=== PATIENT | female | born 1945 | race Caucasian/White ===

== ENCOUNTER → 2017-03-17 | Outpatient (CLI) | payer MEDICARE, OTHER ==
[2017-03-17 15:54] LABS: CH 31.9; CHCM 31.9; HCT 45.4 % (34.0-46.0); HDW 2.21; HGB 14.3 gm/dL (11.4-16.0); INR 2.6 (<1.2); MCH 31.7 pg (25.0-35.0); MCHC 31.5 g/dL (31.0-37.0); MCV 100.6 fL (80.0-100.0); Macrocytosis Slight; Mean Platelet Volume 7.5; Prothrombin Time 25.1 sec (9.0-12.0); RBC 4.51 m/uL (3.80-5.40); RDW 14.1 % (11.5-15.5); WBC 6.4 k/uL (3.8-10.6)
== END | disposition home or self-care (01) ==
LOC: LABWHC1 15:10
PROVIDERS: ATTEND Internal Medicine Cardiovascular Disease
DX: Z01.812 Encounter for preprocedural laboratory examination (principal); I48.2 Chronic atrial fibrillation; Z79.01 Long term (current) use of anticoagulants
CPT/HCPCS: 80051; 82565; 84520; 85027; 85610

== ENCOUNTER 2017-07-27 13:11 | Inpatient (IN) | payer MEDICARE, OTHER ==
[2017-07-27] MEDS ORDERED: ONDANSETRON 4 MG/2 ML VIAL IVP STA (13:22)
[2017-07-27] MEDS ORDERED: DILTIAZEM 5 MG/ML 5 ML VIAL IVP STA (13:22)
[2017-07-27] MEDS ORDERED: SODIUM CHLORIDE 0.9% 500 ML IV STA (13:22)
[2017-07-27] MEDS ORDERED: MORPHINE SULFATE 4 MG/ML SYRINGE IVP STA (13:22)
--- NOTE | 2017-07-27 13:32 | ED ---
General Adult HPI - General Chief complaint: Fall Stated complaint: Fall Time Seen by Provider: 07/27/17 13:12 Source: patient, EMS, RN notes reviewed, old records reviewed Mode of arrival: EMS - History of Present Illness Initial comments: This is a 72-year-old female ER for evaluation. Patient evaluation regards to fall. Patient was found down after fall. Complaining of severe left hip pain. Patient feels that her heart racing feels very weak complaining of severe pain in her left hip. Patient got up to do an activity in her house and fell. She was able to crawl to the phone. Unable to stand - Related Data Home Medications Medication Instructions Recorded Confirmed Warfarin [Coumadin] 5 mg PO DAILY 03/18/17 07/27/17 Simvastatin [Zocor] 20 mg PO DAILY 07/27/17 07/27/17 Allergies Allergy/AdvReac Type Severity Reaction Status Date / Time No Known Allergies Allergy Verified 07/27/17 13:33 Review of Systems ROS Statement: Those systems with pertinent positive or pertinent negative responses have been documented in the HPI. ROS Other: All systems not noted in ROS Statement are negative. Past Medical History Past Medical History: Hypertension Additional Past Medical History / Comment(s): irregular heart beat Last Myocardial Infarction Date:: 2009 History of Any Multi-Drug Resistant Organisms: None Reported Past Surgical History: Orthopedic Surgery Additional Past Surgical History / Comment(s): rt foot with plate Past Anesthesia/Blood Transfusion Reactions: No Reported Reaction Past Psychological History: No Psychological Hx Reported Smoking Status: Never smoker Past Alcohol Use History: None Reported Past Drug Use History: None Reported - Past Family History Mother Family Medical History: No Reported History General Exam General appearance: alert, in no apparent distress Head exam: Present: atraumatic, normocephalic, normal inspection Eye exam: Present: normal appearance, PERRL, EOMI. Absent: scleral icterus, conjunctival injection, periorbital swelling ENT exam: Present: normal exam, mucous membranes moist Neck exam: Present: normal inspection. Absent: tenderness, meningismus, lymphadenopathy Respiratory exam: Present: normal lung sounds bilaterally. Absent: respiratory distress, wheezes, rales, rhonchi, stridor Cardiovascular Exam: Present: tachycardia, irregular rhythm, normal heart sounds. Absent: systolic murmur, diastolic murmur, rubs, gallop, clicks GI/Abdominal exam: Present: soft, normal bowel sounds. Absent: distended, tenderness, guarding, rebound, rigid Extremities exam: Present: normal inspection, full ROM, normal capillary refill , other (Left flank tenderness). Absent: tenderness, pedal edema, joint swelling, calf tenderness Back exam: Present: normal inspection Neurological exam: Present: alert, oriented X3, CN II-XII intact Psychiatric exam: Present: normal affect, normal mood Skin exam: Present: warm, dry, intact, normal color. Absent: rash Course Vital Signs 07/27/17 07/27/17 07/27/17 13:13 13:47 14:36 Temperature 97.7 F Pulse Rate 120 H 117 H 103 H Respiratory 20 18 20 Rate Blood Pressure 166/116 149/94 143/103 O2 Sat by Pulse 92 L 98 96 Oximetry - Reevaluation(s) Reevaluation #1: 07/27/17 13:41 Patient does have adequate pain control, patient given rate control for A. fib with RVR Reevaluation #2: 07/27/17 15:03 Patient is having adequate pain control at this time EKG Findings - EKG Comments: EKG Findings:: 89 years old EKG shows A. fib with RVR rate of 170, QRS 82, QTc 524 Medical Decision Making - Medical Decision Making 72 female the ER status post fall, mechanical trip and fall. Positive left hip fracture. Patient be admitted for surgical treatment - Lab Data Result diagrams: 07/27/17 13:20 07/27/17 13:20 Lab Results 07/27/17 07/27/17 07/27/17 Range/Units 13:20 13:20 13:20 WBC 12.7 H (3.8-10.6) k/uL RBC 4.16 (3.80-5.40) m/uL Hgb 12.6 (11.4-16.0) gm/dL Hct 41.0 (34.0-46.0) % MCV 98.5 (80.0-100.0) fL MCH 30.4 (25.0-35.0) pg MCHC 30.8 L (31.0-37.0) g/dL RDW 13.4 (11.5-15.5) % Plt Count 228 (150-450) k/uL Neutrophils % 83 % Lymphocytes % 9 % Monocytes % 5 % Eosinophils % 2 % Basophils % 0 % Neutrophils # 10.5 H (1.3-7.7) k/uL Lymphocytes # 1.2 (1.0-4.8) k/uL Monocytes # 0.6 (0-1.0) k/uL Eosinophils # 0.3 (0-0.7) k/uL Basophils # 0.0 (0-0.2) k/uL Hypochromasia Slight PT (9.0-12.0) sec INR (<1.2) APTT (22.0-30.0) sec Sodium 141 (137-145) mmol/L Potassium 4.0 (3.5-5.1) mmol/L Chloride 106 (98-107) mmol/L Carbon Dioxide 24 (22-30) mmol/L Anion Gap 11 mmol/L BUN 17 (7-17) mg/dL Creatinine 1.03 (0.52-1.04) mg/dL Est GFR (MDRD) Af Amer >60 (>60 ml/min/1.73 sqM) Est GFR (MDRD) Non-Af 53 (>60 ml/min/1.73 sqM) Glucose 178 H (74-99) mg/dL Calcium 9.0 (8.4-10.2) mg/dL Phosphorus 2.8 (2.5-4.5) mg/dL Magnesium 1.8 (1.6-2.3) mg/dL Total Bilirubin 0.6 (0.2-1.3) mg/dL AST 23 (14-36) U/L ALT 25 (9-52) U/L Alkaline Phosphatase 96 (38-126) U/L Total Creatine Kinase 125 (30-135) U/L CK-MB (CK-2) 1.2 (0.0-2.4) ng/mL CK-MB (CK-2) Rel Index 1.0 Troponin I 0.017 (0.000-0.034) ng/mL Total Protein 6.3 (6.3-8.2) g/dL Albumin 3.3 L (3.5-5.0) g/dL 07/27/17 Range/Units 13:20 WBC (3.8-10.6) k/uL RBC (3.80-5.40) m/uL Hgb (11.4-16.0) gm/dL Hct (34.0-46.0) % MCV (80.0-100.0) fL MCH (25.0-35.0) pg MCHC (31.0-37.0) g/dL RDW (11.5-15.5) % Plt Count (150-450) k/uL Neutrophils % % Lymphocytes % % Monocytes % % Eosinophils % % Basophils % % Neutrophils # (1.3-7.7) k/uL Lymphocytes # (1.0-4.8) k/uL Monocytes # (0-1.0) k/uL Eosinophils # (0-0.7) k/uL Basophils # (0-0.2) k/uL Hypochromasia PT 35.1 H (9.0-12.0) sec INR 3.9 H (<1.2) APTT 35.9 H (22.0-30.0) sec Sodium (137-145) mmol/L Potassium (3.5-5.1) mmol/L Chloride (98-107) mmol/L Carbon Dioxide (22-30) mmol/L Anion Gap mmol/L BUN (7-17) mg/dL Creatinine (0.52-1.04) mg/dL Est GFR (MDRD) Af Amer (>60 ml/min/1.73 sqM) Est GFR (MDRD) Non-Af (>60 ml/min/1.73 sqM) Glucose (74-99) mg/dL Calcium (8.4-10.2) mg/dL Phosphorus (2.5-4.5) mg/dL Magnesium (1.6-2.3) mg/dL Total Bilirubin (0.2-1.3) mg/dL AST (14-36) U/L ALT (9-52) U/L Alkaline Phosphatase (38-126) U/L Total Creatine Kinase (30-135) U/L CK-MB (CK-2) (0.0-2.4) ng/mL CK-MB (CK-2) Rel Index Troponin I (0.000-0.034) ng/mL Total Protein (6.3-8.2) g/dL Albumin (3.5-5.0) g/dL - Radiology Data Radiology results: report reviewed (X-ray left hip is positive for fracture), image reviewed Disposition Clinical Impression: Fall, Hip fracture, left Disposition: ADMITTED IP TO THIS HOSP Condition: Fair Referrals: Dada Maddox DO [Primary Care Provider] - 1-2 days
[2017-07-27] MEDS: DILTIAZEM 125 MG in SODIUM CHLORIDE 0.9% 100 ML IV ONE (13:43)
[2017-07-27 13:50] LABS: INR 3.9 (<1.2)
[2017-07-27 13:51] LABS: Partial Thromboplastin Time 35.9 sec (22.0-30.0); Prothrombin Time 35.1 sec (9.0-12.0)
[2017-07-27 13:57] LABS: Basophils % (A) 0 %; Eosinophils # (A) 0.3 k/uL (0-0.7); Eosinophils % (A) 2 %; HGB 12.6 gm/dL (11.4-16.0); Hypochromasia Slight; Lymphocytes # (A) 1.2 k/uL (1.0-4.8); Lymphocytes % (A) 9 %; MCH 30.4 pg (25.0-35.0); MCHC 30.8 g/dL (31.0-37.0); MCV 98.5 fL (80.0-100.0); Mean Platelet Volume 7.4; Monocytes # (A) 0.6 k/uL (0-1.0); Monocytes % (A) 5 %; Neutrophils # (A) 10.5 k/uL (1.3-7.7); Neutrophils % (A) 83 %; Platelet Count 228 k/uL (150-450); RBC 4.16 m/uL (3.80-5.40); RDW 13.4 % (11.5-15.5); WBC 12.7 k/uL (3.8-10.6)
[2017-07-27 14:00] LABS: ALT 25 U/L (9-52); AST 23 U/L (14-36); Albumin 3.3 g/dL (3.5-5.0); Alkaline Phosphatase 96 U/L (38-126); Anion Gap 11 mmol/L; Blood Urea Nitrogen 17 mg/dL (7-17); Carbon Dioxide 24 mmol/L (22-30); Chloride 106 mmol/L (98-107); Glucose 178 mg/dL (74-99); Magnesium 1.8 mg/dL (1.6-2.3); Phosphorus 2.8 mg/dL (2.5-4.5); Sodium 141 mmol/L (137-145); Total Bilirubin 0.6 mg/dL (0.2-1.3); Total Protein 6.3 g/dL (6.3-8.2)
[2017-07-27 14:30] LABS: Creatine Kinase MB 1.2 ng/mL (0.0-2.4); Troponin I 0.017 ng/mL (0.000-0.034)
--- NOTE | 2017-07-27 14:41 | XR ---
EXAMINATION TYPE: XR Hip Complete LT DATE OF EXAM: 07/27/2017 CLINICAL HISTORY: pain TECHNIQUE: AP and frogleg views of the left hip are obtained. COMPARISON: None. FINDINGS: There is impacted left femoral neck fracture at the base of the femoral head with mild disp lacement. No additional fracture seen within the [id number]. IMPRESSION: 1. Impacted left femoral neck fracture is noted. ICD 10 closed FRACTURE, INITIAL EVALUATION
[2017-07-27] MEDS ORDERED: HYDROmorphone 2 MG/ML 1 ML SYRINGE IVP STA (14:52)
[2017-07-27 15:35] LABS: Appearance,Urine Clear (Clear); Bilirubin,Urine Negative (Negative); Blood,Urine Negative (Negative); Color,Urine Light Yellow; Glucose,Urine (UA) Negative (Negative); Ketones,Urine Negative (Negative); Leukocyte Esterase,Urine Negative (Negative); Nitrite,Urine Negative (Negative); Protein,Urine Negative (Negative); Specific Gravity,Urine 1.006 (1.001-1.035); Urobilinogen,Urine <2.0 mg/dL (<2.0)
[2017-07-27] MEDS ORDERED: METOCLOPRAMIDE 5 MG/ML 2 ML VIAL IVP STA (15:40)
[2017-07-27] MEDS ORDERED: diphenhydrAMINE 50 MG/ML 1 ML VIAL IVP STA (15:41)
[2017-07-27] MEDS: HYDROmorphone 0.5 MG/0.5 ML SYRINGE IVP PRN ×2 (18:50→23:04)
[2017-07-27] MEDS ORDERED: PHYTONADIONE ORAL 5 MG/5 ML ORAL.SYRG PO STA (23:21)
[2017-07-28] MEDS: METOPROLOL TARTRATE 25 MG TAB PO SCH ×2 (00:23→08:00)
--- NOTE | 2017-07-28 01:37 | CONS ---
CONSULTATION DATE OF SERVICE: July 27, 2017. REASON FOR CONSULTATION: Medical management requested by Dr. Lomas. CONSULTATION: This is a very pleasant, 72 -year-old patient of Dr. Maddox, who tripped and fell, now has impacted left femoral neck fracture with pain at the site. The fall was simply from missing a step. No precipitated cause otherwise. The patient has chronically got atrial fibrillation on Coumadin, which was uncontrolled in the ER from 120s. The patient put on a Cardizem drip. The patient also had 2 MIs in 2009. The patient had a cardiac catheterization, in fact had 1 recent cardiac catheterization in March of 2017, and had normal coronary arteries. This was done by Dr. Falcon. The patient normally is able to get around a place with fair exercise tolerance. No chest pain or shortness of breath. REVIEW OF SYSTEMS: CONSTITUTIONAL: None. HEENT none. Respiratory none. Cardiovascular none. Gastrointestinal none. Genitourinary none. Musculoskeletal: Pain in the left hip. Dermatological, hematologic, lymphatic none. Psychiatry none. Neurological none. PAST MEDICAL HISTORY: Atrial fibrillation, stroke with no residual, hyperlipidemia, questionable 2 MIs with normal cardiac catheterization 2016. PAST SURGICAL HISTORY: Cardiac catheterization, tonsillectomy, ORIF of the right ankle. SOCIAL HISTORY: The patient smoked a pack a day for 54 years. Stopped in 2011. Lives by herself. No alcohol. FAMILY HISTORY: Of aneurysm type unknown. HOME MEDICATIONS: Coumadin 5 mg a day and Zocor 20 mg a day. ALLERGIES: None. PHYSICAL EXAMINATION: Temperature 97.7, pulse 110, respiration 16, blood pressure 130/97, pulse ox 94% on 3 L. GENERAL APPEARANCE: Well built, BMI 30, lying in bed somewhat uncomfortable. Eyes pupils equal. Conjunctivae normal. HEENT: Oral cavity normal. Neck JVD not raised. Mass not palpable. Respiratory effort normal. Lungs slightly decreased breath sounds. Cardiovascular: HEART: Sounds irregular. No edema. ABDOMEN: Soft, nontender. Liver and spleen not palpable. Lymphatics: No lymph nodes palpable in neck or axillae. Psychiatry alert x3. Mood and affect normal. Neurological: Pupils equal. Cranial nerves grossly intact. Power and sensation grossly intact. INVESTIGATIONS: EKG/telemetry atrial fibrillation rate around one teens. ASSESSMENT: 1. Atrial flutter. 2. Hyperlipidemia. 3. Obesity BMI of 38. 4. IV Lisbeth wootenip monitoring. 5. Coumadin monitoring. PLAN: INR 3.9. We will give the patient a very small dose of vitamin K 2.5 just to bring down enough so that she can respond to Coumadin when it is resumed. The patient is on Cardizem drip. Cardiology has been consulted for the same. The patient had a normal cardiac catheterization 4 months ago. Medically, patient should be able to proceed with surgery with the heart rate is controlled. I will start the patient on Lopressor 25 mg 3 times a day in the meantime. Care was discussed with the patient. Thank you Dr. Lomas. Copy to Dr. Maddox. MMSIMONEL / LEEANNN: [id number] /
[2017-07-28] MEDS: HYDROmorphone 0.5 MG/0.5 ML SYRINGE IVP PRN ×3 (03:47→18:29)
[2017-07-28] MEDS: DILTIAZEM 125 MG in SODIUM CHLORIDE 0.9% 100 ML IV ONE ×2 (03:48→20:31)
[2017-07-28 06:14] LABS: Prothrombin Time 44.8 sec (9.0-12.0)
[2017-07-28] MEDS: ATORVASTATIN 10 MG TAB PO SCH (08:00)
[2017-07-28] MEDS ORDERED: ENOXAPARIN 40 MG/0.4 ML SYRINGE SQ SCH (09:00)
--- NOTE | 2017-07-28 10:25 | P.CRDCN ---
History of Present Illness Consult date: 07/28/17 Requesting physician: Eddie Lomas Consult reason: atrial fibrillation Chief complaint: Fall History of present illness: This is a 72-year-old female who follows regularly with Dr. Montana in the office. She has known history of chronic persistent atrial fibrillation , on Coumadin for anticoagulation, history of prior myocardial infarction, hyperlipidemia, history of CVA, prior history of smoking, hypertension, patient most recently underwent a cardiac catheterization in March 2017 because of a positive stress test, she was found to have normal coronary arteries with normal left ventricular systolic function. Patient presents to the hospital after experiencing a fall. She did not pass out, she just became unsteady and fell to the ground. EKG on presentation here showed atrial fibrillation with a rapid ventricular response and the patient was initiated on IV Cardizem in the emergency room. X-ray of the hip revealed impacted left femoral neck fracture. Laboratory data was reviewed, white blood cell count 12.7, hemoglobin 12.6, platelet count 228. INR on admission 3.9, 5.0 this morning. Potassium 4.0, BUN 17, creatinine 1.0. Troponin 0.017. Patient denies having any chest discomfort, no difficulty in breathing. She is complaining of significant pain in her left hip. This morning as well as lower back discomfort. According to the office note, patient should be on metoprolol 150 mg twice a day we will discontinue the IV Cardizem and initiate metoprolol 150 twice a day. Past Medical History Past Medical History: Atrial Fibrillation, CVA/TIA, Hyperlipidemia, Myocardial Infarction ([place]) Additional Past Medical History / Comment(s): 07/27/17 FALL'LT HIP FX. 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 Last Myocardial Infarction Date:: 2009 History of Any Multi-Drug Resistant Organisms: None Reported Past Surgical History: Heart Catheterization, Orthopedic Surgery, Tonsillectomy Additional Past Surgical History / Comment(s): ORIF RT ANKLE HAS PLATE. Past Anesthesia/Blood Transfusion Reactions: No Reported Reaction Smoking Status: Former smoker - Past Family History Mother Family Medical History: No Reported History Additional Family Medical History / Comment(s): FROM ANUERYSM Father Family Medical History: No Reported History Medications and Allergies Home Medications Medication Instructions Recorded Confirmed Type Warfarin [Coumadin] 5 mg PO DAILY 03/18/17 07/27/17 History Simvastatin [Zocor] 20 mg PO DAILY 07/27/17 07/27/17 History Allergies Allergy/AdvReac Type Severity Reaction Status Date / Time No Known Allergies Allergy Verified 07/27/17 13:33 Physical Exam Vitals: Vital Signs Temp Pulse Pulse Resp BP BP Pulse Ox 07/28/17 07:48 97.0 F L 85 20 116/58 92 L 07/28/17 04:00 97.9 F 83 16 119/71 93 L 07/27/17 23:16 102 H 16 07/27/17 23:15 97.7 F 102 H 16 130/97 94 L 07/27/17 21:11 92 L 07/27/17 20:00 97.7 F 90 18 135/90 92 L 07/27/17 17:55 20 07/27/17 17:53 98.2 F 103 H 20 130/91 97 07/27/17 17:25 97.2 F L 07/27/17 17:04 100 18 115/72 95 07/27/17 16:04 129 H 20 146/88 98 07/27/17 14:36 103 H 20 143/103 96 07/27/17 13:47 117 H 18 149/94 98 07/27/17 13:30 150 H 07/27/17 13:13 97.7 F 120 H 20 166/116 92 L Intake and Output 07/27/17 07/28/17 07/28/17 22:59 06:59 14:59 Intake Total 11.583 153.417 Output Total 550 Balance 11.583 -396.583 Intake: IV 40 Diltiazem 125 mg In 40 Sodium Chloride 0.9% 100 ml @ 5 MG/HR 5 mls/hr IV .Q24H ONE Rx#:[id number] Intake, IV Titration 11.583 113.417 Amount Diltiazem 125 mg In 11.583 113.417 Sodium Chloride 0.9% 100 ml @ 5 MG/HR 5 mls/hr IV .Q24H ONE Rx#:[id number] Output: Urine 550 Other: Voiding Method Indwelling Catheter Indwelling Catheter Weight 120 kg PHYSICAL EXAMINATION: HEENT: Head is atraumatic, normocephalic. Pupils equal, round. Neck is supple. There is no elevated jugular venous pressure. HEART EXAMINATION: Heart S1 and S2 irregularly irregular CHEST EXAMINATION: Lungs are clear to auscultation and precussion. No chest wall tenderness is noted on palpation or with deep breathing. ABDOMEN: Soft, nontender. Bowel sounds are heard. No organomegaly noted. EXTREMITIES:[ 2+ peripheral pulses with no evidence of peripheral edema significant pain noted at the left hip area NEUROLOGIC patient is awake, alert and oriented -3. . Results 07/27/17 13:20 07/27/17 13:20 Cardiac Enzymes 07/27/17 07/27/17 Range/Units 13:20 13:20 AST 23 (14-36) U/L CK-MB (CK-2) 1.2 (0.0-2.4) ng/mL Troponin I 0.017 (0.000-0.034) ng/mL Coagulation 07/27/17 07/28/17 Range/Units 13:20 05:24 PT 35.1 H 44.8 H (9.0-12.0) sec APTT 35.9 H (22.0-30.0) sec CBC 07/27/17 Range/Units 13:20 WBC 12.7 H (3.8-10.6) k/uL RBC 4.16 (3.80-5.40) m/uL Hgb 12.6 (11.4-16.0) gm/dL Hct 41.0 (34.0-46.0) % Plt Count 228 (150-450) k/uL Comprehensive Metabolic Panel 07/27/17 Range/Units 13:20 Sodium 141 (137-145) mmol/L Potassium 4.0 (3.5-5.1) mmol/L Chloride 106 (98-107) mmol/L Carbon Dioxide 24 (22-30) mmol/L BUN 17 (7-17) mg/dL Creatinine 1.03 (0.52-1.04) mg/dL Glucose 178 H (74-99) mg/dL Calcium 9.0 (8.4-10.2) mg/dL AST 23 (14-36) U/L ALT 25 (9-52) U/L Alkaline Phosphatase 96 (38-126) U/L Total Protein 6.3 (6.3-8.2) g/dL Albumin 3.3 L (3.5-5.0) g/dL Current Medications Generic Name Dose Route Start Last Admin Trade Name Ranjan PRN Reason Stop Dose Admin Atorvastatin Calcium 10 mg 07/28/17 09:00 07/28/17 08:00 Lipitor PO 10 mg DAILY KALPESH Administration Hydromorphone HCl 1 mg 07/27/17 15:02 07/28/17 03:47 Dilaudid IVP 1 mg Q4HR PRN Administration Pain Diltiazem HCl 125 mg/ Sodium 125 mls @ 5 mls/hr 07/27/17 13:22 07/28/17 03:48 Chloride IV 07/28/17 13:21 10 mg/hr .Q24H ONE 10 mls/hr 5 MG/HR Administration Metoprolol Tartrate 25 mg 07/27/17 23:30 07/28/17 08:00 Lopressor PO 25 mg TID KALPESH Administration Intake and Output 07/27/17 07/28/17 07/28/17 22:59 06:59 14:59 Intake Total 11.583 153.417 Output Total 550 Balance 11.583 -396.583 Intake: IV 40 Diltiazem 125 mg In 40 Sodium Chloride 0.9% 100 ml @ 5 MG/HR 5 mls/hr IV .Q24H ONE Rx#:[id number] Intake, IV Titration 11.583 113.417 Amount Diltiazem 125 mg In 11.583 113.417 Sodium Chloride 0.9% 100 ml @ 5 MG/HR 5 mls/hr IV .Q24H ONE Rx#:[id number] Output: Urine 550 Other: Voiding Method Indwelling Catheter Indwelling Catheter Weight 120 kg 07/27/17 13:20 07/27/17 13:20 EKG Interpretations (text) EKG shows atrial fibrillation with a rapid ventricular response Assessment and Plan Plan: Assessment and plan #1 fall with evidence of impacted left femoral neck fracture #2 chronic persistent atrial fibrillation, on Coumadin for anticoagulation, INR 5.0 this morning. #3 hypertension #4 diabetes #5 hyperlipidemia #6 prior CVA #7 Prior myocardial infarction, most recent cardiac catheterization was performed in March 2017 which revealed normal coronary arteries Plan We will discontinue the IV Cardizem and reinitiate beta roshni dose which the patient takes at home. Obtain echocardiogram with Doppler study. Continue to hold Coumadin. Check daily PT/INRs Patient will be scheduled to undergo hip surgery potentially on Wednesday. We will need to reinitiate anticoagulation as possible post surgery, for stroke prevention. DNP note has been reviewed, I agree with a documented findings and plan of care. Patient was seen and examined.
--- NOTE | 2017-07-28 11:47 | P.HPOR ---
History of Present Illness H&P Date: 07/28/17 Chief Complaint: Left hip fracture Patient is a 72-year-old female who presented to [facility] emergency room yesterday after sustaining a fall at home. Patient states that she tripped and fell in her own home, resulting in a fall on the left side. She was unable to weight-bear after the fall, she was near her phone was able to contact emergency services. Upon arrival to the hospital, imaging and lab tests were done. Images demonstrated a left femoral neck fracture. I was contacted by the emergency room staff regarding the patient, I was able to review the images. I was able to discuss this my attending Dr. Lomas, and we did end up admitting the patient under our care for planned surgery. Proper consultations were placed for clearances by both internal medicine and cardiology. Patient is examined today on the selective care unit, she is resting in bed. She appears to be in no acute distress. She notes pain in the left hip with motion. She denies any new onset pain involving the right lower extremity, bilateral upper extremities, cervical, thoracic or lumbar. She's had previous orthopedic surgery on the right ankle, this was done by Dr. Lomas back in 2007. She currently denies any headaches, lightheadedness, chest pain or shortness of breath. Review of Systems Constitutional: Reports as per HPI Past Medical History Past Medical History: Atrial Fibrillation, CVA/TIA, Hyperlipidemia, Myocardial Infarction ([place]) Additional Past Medical History / Comment(s): 07/27/17 FALL'LT HIP FX. 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 Last Myocardial Infarction Date:: 2009 History of Any Multi-Drug Resistant Organisms: None Reported Past Surgical History: Heart Catheterization, Orthopedic Surgery, Tonsillectomy Additional Past Surgical History / Comment(s): ORIF RT ANKLE HAS PLATE. Past Anesthesia/Blood Transfusion Reactions: No Reported Reaction Smoking Status: Former smoker - Past Family History Mother Family Medical History: No Reported History Additional Family Medical History / Comment(s): FROM ANUERYSM Father Family Medical History: No Reported History Medications and Allergies Home Medications Medication Instructions Recorded Confirmed Type Warfarin [Coumadin] 5 mg PO DAILY 03/18/17 07/27/17 History Simvastatin [Zocor] 20 mg PO DAILY 07/27/17 07/27/17 History Allergies Allergy/AdvReac Type Severity Reaction Status Date / Time No Known Allergies Allergy Verified 07/27/17 13:33 Physical Examination Left lower extremity: No obvious open lesions or sores present throughout the extremity Shortening and external rotation of the leg is noted when compared to contralateral side No effusion present over the knee, there is no tenderness with palpation. No significant tenderness with palpation appreciated around the foot or ankle. Plantar flexion, dorsiflexion, EHL, FHL are intact. Sensory exam to light touch started extremities intact, dorsal pedis pulses 2+ The left hip reproduces pain, she is unable to straight leg raise Calf is soft, no tenderness with palpation Results - Labs Labs: Abnormal Lab Results - Last 24 Hours (Table) 07/27/17 07/27/17 07/27/17 Range/Units 13:20 13:20 13:20 WBC 12.7 H (3.8-10.6) k/uL MCHC 30.8 L (31.0-37.0) g/dL Neutrophils # 10.5 H (1.3-7.7) k/uL PT 35.1 H (9.0-12.0) sec INR 3.9 H (<1.2) APTT 35.9 H (22.0-30.0) sec Glucose 178 H (74-99) mg/dL Albumin 3.3 L (3.5-5.0) g/dL 07/28/17 Range/Units 05:24 WBC (3.8-10.6) k/uL MCHC (31.0-37.0) g/dL Neutrophils # (1.3-7.7) k/uL PT 44.8 H (9.0-12.0) sec INR 5.0 H* (<1.2) APTT (22.0-30.0) sec Glucose (74-99) mg/dL Albumin (3.5-5.0) g/dL Microbiology - Last 24 Hours (Table) 07/27/17 15:20 Urine Culture - Preliminary Urine,Catheterized H & H 07/27/17 Range/Units 13:20 Hgb 12.6 (11.4-16.0) gm/dL Hct 41.0 (34.0-46.0) % Coagulation 07/27/17 07/28/17 Range/Units 13:20 05:24 INR 3.9 H 5.0 H* (<1.2) Result Diagrams: 07/27/17 13:20 07/27/17 13:20 - Diagnostic results Hip x-ray: report reviewed, image reviewed Assessment and Plan Plan: Imaging: Multiple views of the left hip and pelvis were obtained, images do demonstrate a displaced left femoral neck fracture. No other acute osseous abnormalities appreciated Assessment: 1. Left femoral neck fracture 2. Status post fall from standing 3. Other medical comorbidities Plan: I was able to discuss the case, including both physical exam findings and imaging studies of my attending Dr. Lomas. We will like to proceed with surgical intervention, more specifically a left hip hemiarthroplasty on 2017 Patient's INR is very high at this time, this is being held. She scheduled to receive oral vitamin K, with daily INR checks. Obtain consent Pain control, oral and IV medication as needed Nonweightbearing left lower extremity Medical and cardiac clearance and recommendations Further recommendations to follow Time with Patient: Less than 30
--- NOTE | 2017-07-28 12:50 | ECHOF ---
Referral Reason:afib MEASUREMENTS -------- HEIGHT: 172.7 cm WEIGHT: 119.7 kg BP: 116/58 RVIDd: 3.0 cm (< 3.3) IVSd: 1.3 cm (0.6 - 1.1) LVIDd: 4.3 cm (3.9 - 5.3) LVPWd: 1.3 cm (0.6 - 1.1) IVSs: 1.5 cm LVIDs: 3.4 cm LVPWs: 1.7 cm LAESV Index (A-L): 26.92 ml/m Ao Diam: 3.8 cm (2.0 - 3.7) AV Cusp: 1.5 cm (1.5 - 2.6) LA Diam: 2.6 cm (2.7 - 3.8) EPSS: 0.8 cm MV E Filippo: 1.50 m/s MV DecT: 193 ms MV A Filippo: 0.01 m/s MV E/A Ratio: 243.01 AV maxP.10 mmHg AV meanP.69 mmHg RAP: 15.00 mmHg RVSP: 54.60 mmHg MV EF SLOPE: 105.59 mm/s (70 - 150) MV EXCURSION: 1.93 cm (> 18.000) FINDINGS -------- Atrial fibrillation. This was a technically adequate study. The left ventricular size is normal. There is mild concentric left ventricular hypertrophy. Overa ll left ventricular systolic function is low-normal with, an EF between 50 - 55 %. The right ventricle is normal in size. Normal LA size by volume 22+/-6 ml/m2. The right atrium is normal in size. Aortic valve is trileaflet and is mildly thickened. There is mild aortic regurgitation. There is mild aortic stenosis present. Peak/mean gradient across the Aortic Valve is 15.10mmHg / 8.69mmHg. The mitral valve leaflets are mildly thickened. Coox-ud-yxnfppsl mitral regurgitation is present. Mild tricuspid regurgitation present. There is moderate pulmonary hypertension. The right ventric ular systolic pressure, as measured by Doppler, is 54.60mmHg. Trace/mild (physiologic) pulmonic regurgitation. The aortic root is dilated, limited to the sinuses of valsalva measuring up to 3.8 cm. The inferior vena cava is dilated with poor inspiratory collapse which is consistent with estimated r ight atrial pressure of 20 mmHg. There is a small, generalized pericardial effusion present. CONCLUSIONS -------- 1. Atrial fibrillation. 2. This was a technically adequate study. 3. The left ventricular size is normal. 4. There is mild concentric left ventricular hypertrophy. 5. Overall left ventricular systolic function is low-normal with, an EF between 50 - 55 %. 6. The right ventricle is normal in size. 7. Normal LA size by volume 22+/-6 ml/m2. 8. Aortic valve is trileaflet and is mildly thickened. 9. There is mild aortic regurgitation. 10. There is mild aortic stenosis present. 11. Peak/mean gradient across the Aortic Valve is 15.10mmHg / 8.69mmHg. 12. The mitral valve leaflets are mildly thickened. 13. Uwnj-xn-rbibdbhg mitral regurgitation is present. 14. Mild tricuspid regurgitation present. 15. There is moderate pulmonary hypertension. 16. Trace/mild (physiologic) pulmonic regurgitation. 17. The aortic root is dilated, limited to the sinuses of valsalva measuring up to 3.8 cm. 18. The inferior vena cava is dilated with poor inspiratory collapse which is consistent with estimat ed right atrial pressure of 20 mmHg. 19. There is a small, generalized pericardial effusion present. COSMETIC SALES ASSISTANT: Joe Álvarez RDCS
--- NOTE | 2017-07-28 16:16 | P.PN ---
Progress Note - Text Progress Note Date: 07/28/17 DATE OF SERVICE: 07/28/2017 REASON FOR CONSULTATION: Medical management requested by Dr. Lomas. HISTORY OF PRESENT ILLNESS: 82-year-old female who tripped and fell now has an impacted left femoral neck fracture. Follow occurred simply by missing a step. No other precipitating cause. Has a history of chronic atrial fibrillation and is on Coumadin for the same., Uncontrolled on arrival into the emergency department in the 120s. Placed on a Cardizem drip. History of cardiac catheterization in 2009 and 2016. Under normal circumstances patient is able to get around with fair exercise tolerance no chest pain or shortness of breath. INTERVAL HISTORY: 07/28/2017: Lying in bed appears anxious and uncomfortable. States that her left hip hurts quite a bit as does the leg. No complaints or numbness or tingling and has good sensation leg just hurts her. Pain medication does a fair job of controlling pain. INR was supratherapeutic yesterday received 2.5 mg of vitamin K and this morning's value was 5.0. No overt signs or symptoms of bleeding. No dark stools. Atrial fibrillation remains somewhat uncontrolled in the low 100s. Has a poor appetite eating less than 50% of her meals. Requires assistance to get about the bed. Last BM prior to admission. REVIEW OF SYSTEMS: Done for constitutional ,cardiovascular, GI, pulmonary with relevant findings as above. CURRENT MEDICATIONS Lipitor, heparin subcutaneous. Dilaudid 1 mg IV push every 4 hours , Lopressor 150 mg by mouth twice a day. PHYSICAL EXAM VITAL SIGNS: Temperature 97.6, pulse 99, respiratory rate 18, blood pressure 115/76, oxygen saturation 98% on 3 L. GENERAL APPEARANCE: Lying in bed, somewhat anxious appearing not in distress. HENT: Normocephalic, JVD not raised. Mass not palpable. Oral cavity dry mucous membranes, external appearance of ears and nose normal. EYES:Pupils equal. Conjunctiva normal. RESPIRATORY: Respiratory effort normal. Lungs diminished bilaterally to auscultation. CARDIOVASCULAR: First and second sounds normal. No edema. ABDOMEN: Soft. Liver and spleen not palpable. No tenderness. No mass palpable. PSYCHIATRY: Alert and oriented x3. Mood and affect a bit low. MUSCULOSKELETAL: Left lower extremity shortening and external rotation noted, unable to straight leg raise, left hip tender to palpation. INVESTIGATIONS: LABS: INR 5.0 ECHOCARDIOGRAM: Atrial fibrillation, EF between 50-55%. Mild aortic regurgitation, mild aortic stenosis, mild to moderate mitral regurgitation, mild tricuspid regurgitation, moderate pulmonary hypertension. ASSESSMENT: -Left femoral neck fracture in a patient who missed a step tripped and fell no other precipitating factors. -Chronic persistent atrial fibrillation flutter, chronically on Coumadin -Obesity body mass index of 38. -Hyperlipidemia. -Diabetes mellitus type 2 diet controlled blood glucose checks daily. -IV Cardizem drip monitoring. -Coumadin monitoring. PLAN: Continue to monitor INR daily. Tentative plan for left hip surgery on Wednesday with orthopedics. IV Cardizem drip discontinued and beta roshni reinitiated. Coumadin on hold per cardiology. Once surgery is complete reinitiate anticoagulation as soon as possible for stroke prevention. Plan of care discussed with the patient at bedside she is agreeable. We will follow closely. CUSTOMER STRATEGY MANAGER statement: Patient was seen and examined by nurse practitioner Hayde Solomon and all elements of the case discussed with attending Dr. Sanabria
[2017-07-28] MEDS: METOPROLOL TARTRATE 50 MG TAB PO SCH ×2 (17:56→23:39)
[2017-07-28 18:52] LABS: HCT 37.1 % (34.0-46.0); HGB 11.3 gm/dL (11.4-16.0); Hypochromasia Slight; MCH 30.2 pg (25.0-35.0); MCHC 30.6 g/dL (31.0-37.0); MCV 98.7 fL (80.0-100.0); Mean Platelet Volume 7.2; Platelet Count 212 k/uL (150-450); RBC 3.76 m/uL (3.80-5.40); RDW 13.5 % (11.5-15.5); WBC 12.5 k/uL (3.8-10.6)
--- NOTE | 2017-07-28 19:05 | PN ---
PROGRESS NOTE DATE OF SERVICE: 07/28/2017. ATTENDING NOTE: This patient was seen and examined by me. I discussed the case with the nurse practitioner Ms. Solomon. The patient presented with left femoral neck fracture. Remains in atrial fibrillation, uncontrolled; has been on a Cardizem drip. Pain is present. Lying in bed. On examination, temperature 100.8, pulse 104, respiration 18, blood pressure 90/59, pulse ox 93% on 3 L. Heart sounds are irregular. Lungs are clear. PSYCH: Alert and oriented x3. TSH noted. ASSESSMENT: 1. Left femoral neck fracture secondary to fall. 2. Persistent atrial fibrillation/flutter, uncontrolled. 3. Coumadin monitoring. INR 5. PLAN: Patient is on Lopressor 150 twice a day. He was given 2.5 vitamin K last night. Expect the INR to be down by tomorrow. Cardizem drip was taken off. MMODL / IJN: [id number] /
[2017-07-28 19:08] LABS: Calcium 8.7 mg/dL (8.4-10.2); Potassium 4.8 mmol/L (3.5-5.1)
[2017-07-28] MEDS ORDERED: HEPARIN SODIUM,PORCINE 5,000 UNIT/ML 1 ML VIAL SQ SCH (21:00)
[2017-07-28 23:51] LABS: Basophils % (A) 0 %; Eosinophils # (A) 0.1 k/uL (0-0.7); Eosinophils % (A) 1 %; HCT 37.4 % (34.0-46.0); HGB 11.6 gm/dL (11.4-16.0); Lymphocytes # (A) 0.9 k/uL (1.0-4.8); Lymphocytes % (A) 9 %; MCH 30.4 pg (25.0-35.0); MCHC 30.9 g/dL (31.0-37.0); MCV 98.3 fL (80.0-100.0); Mean Platelet Volume 7.1; Monocytes # (A) 0.4 k/uL (0-1.0); Monocytes % (A) 4 %; Neutrophils # (A) 8.7 k/uL (1.3-7.7); Neutrophils % (A) 85 %; Platelet Count 214 k/uL (150-450); RBC 3.81 m/uL (3.80-5.40); RDW 13.5 % (11.5-15.5); WBC 10.2 k/uL (3.8-10.6)
[2017-07-29 05:50] LABS: Basophils % (A) 0 %; Eosinophils # (A) 0.1 k/uL (0-0.7); Eosinophils % (A) 1 %; HCT 36.9 % (34.0-46.0); HGB 11.4 gm/dL (11.4-16.0); Lymphocytes # (A) 1.3 k/uL (1.0-4.8); Lymphocytes % (A) 15 %; MCH 30.4 pg (25.0-35.0); MCV 98.2 fL (80.0-100.0); Mean Platelet Volume 7.2; Monocytes # (A) 0.5 k/uL (0-1.0); Monocytes % (A) 6 %; Neutrophils # (A) 6.8 k/uL (1.3-7.7); Neutrophils % (A) 77 %; Platelet Count 200 k/uL (150-450); RBC 3.76 m/uL (3.80-5.40); RDW 13.4 % (11.5-15.5); WBC 8.8 k/uL (3.8-10.6)
[2017-07-29 05:55] LABS: Prothrombin Time 17.8 sec (9.0-12.0)
[2017-07-29 06:10] LABS: Calcium 8.5 mg/dL (8.4-10.2); Potassium 4.6 mmol/L (3.5-5.1)
[2017-07-29] MEDS: HYDROmorphone 0.5 MG/0.5 ML SYRINGE IVP PRN ×3 (07:45→21:01)
[2017-07-29] MEDS: METOPROLOL TARTRATE 50 MG TAB PO SCH ×2 (09:29→20:42)
[2017-07-29] MEDS: ATORVASTATIN 10 MG TAB PO SCH (09:29)
[2017-07-29] MEDS: SODIUM CHLORIDE 0.9% 1,000 ML IV SCH (12:55)
--- NOTE | 2017-07-29 15:08 | P.PN ---
Subjective Progress Note Date: 07/29/17 This is a 72-year-old female who follows regularly with Dr. Montana in the office. She has known history of chronic persistent atrial fibrillation , on Coumadin for anticoagulation, history of prior myocardial infarction, hyperlipidemia, history of CVA, prior history of smoking, hypertension, patient most recently underwent a cardiac catheterization in March 2017 because of a positive stress test, she was found to have normal coronary arteries with normal left ventricular systolic function. Patient presents to the hospital after experiencing a fall. She did not pass out, she just became unsteady and fell to the ground. EKG on presentation here showed atrial fibrillation with a rapid ventricular response and the patient was initiated on IV Cardizem in the emergency room. X-ray of the hip revealed impacted left femoral neck fracture. Laboratory data was reviewed, white blood cell count 12.7, hemoglobin 12.6, platelet count 228. INR on admission 3.9, 5.0 this morning. Potassium 4.0, BUN 17, creatinine 1.0. Troponin 0.017. Patient denies having any chest discomfort, no difficulty in breathing. She is complaining of significant pain in her left hip. This morning as well as lower back discomfort. According to the office note, patient should be on metoprolol 150 mg twice a day we will discontinue the IV Cardizem and initiate metoprolol 150 twice a day. 07/29/2017 Patient seen and examined this morning, denies any difficulty in breathing or chest discomfort. Echocardiogram with Doppler study was performed which revealed an ejection fraction of 50-55%. Mild to moderate mitral regurg. Blood pressure 102/70, heart rate in the 80s today. She is scheduled to undergo surgical intervention of her left more alert fracture tomorrow. Her INR today is down to 2. Creatinine is 1.6, she is not on any diuretics or medications to the fact that. We will check lytes BUN and creatinine again in the morning. Objective - Vital Signs Vital signs: Vital Signs Temp 97.5 F L 07/29/17 11:43 Pulse 79 07/29/17 11:43 Resp 19 07/29/17 11:43 BP 103/78 07/29/17 11:43 Pulse Ox 96 07/29/17 11:43 Intake & Output 07/28/17 07/29/17 07/29/17 18:59 06:59 18:59 Intake Total 365 30 476 Output Total 1400 450 600 Balance -1035 -420 -124 Weight 121 kg Intake: IV 30 Diltiazem 125 mg In 30 Sodium Chloride 0.9% 100 ml @ 5 MG/HR 5 mls/hr IV .Q24H ONE Rx#:[id number] Intake, IV Titration 125 Amount Diltiazem 125 mg In 125 Sodium Chloride 0.9% 100 ml @ 5 MG/HR 5 mls/hr IV .Q24H ONE Rx#:[id number] Oral 240 476 Output: Urine 1400 450 600 Uretheral (Crockett) 250 Other: Voiding Method Indwelling Catheter Indwelling Catheter Indwelling Catheter # Voids 1 - Exam PHYSICAL EXAMINATION: HEENT: Head is atraumatic, normocephalic. Pupils equal, round. Neck is supple. There is no elevated jugular venous pressure. HEART EXAMINATION: Heart S1 and S2 irregularly irregular CHEST EXAMINATION: Lungs are clear to auscultation and precussion. No chest wall tenderness is noted on palpation or with deep breathing. ABDOMEN: Soft, nontender. Bowel sounds are heard. No organomegaly noted. EXTREMITIES:[ 2+ peripheral pulses with no evidence of peripheral edema significant pain noted at the left hip area NEUROLOGIC patient is awake, alert and oriented -3. - Labs CBC & Chem 7: 07/29/17 05:24 07/29/17 05:24 Labs: Abnormal Lab Results - Last 24 Hours (Table) 07/28/17 07/28/17 07/28/17 Range/Units 18:39 18:39 23:43 WBC 12.5 H (3.8-10.6) k/uL RBC 3.76 L (3.80-5.40) m/uL Hgb 11.3 L (11.4-16.0) gm/dL MCHC 30.6 L 30.9 L (31.0-37.0) g/dL Neutrophils # 8.7 H (1.3-7.7) k/uL Lymphocytes # 0.9 L (1.0-4.8) k/uL PT (9.0-12.0) sec INR (<1.2) Sodium 135 L (137-145) mmol/L BUN 19 H (7-17) mg/dL Creatinine 1.22 H (0.52-1.04) mg/dL Glucose 172 H (74-99) mg/dL 07/29/17 07/29/17 07/29/17 Range/Units 05:24 05:24 05:24 WBC (3.8-10.6) k/uL RBC 3.76 L (3.80-5.40) m/uL Hgb (11.4-16.0) gm/dL MCHC (31.0-37.0) g/dL Neutrophils # (1.3-7.7) k/uL Lymphocytes # (1.0-4.8) k/uL PT 17.8 H (9.0-12.0) sec INR 2.0 H (<1.2) Sodium 133 L (137-145) mmol/L BUN 24 H (7-17) mg/dL Creatinine 1.60 H (0.52-1.04) mg/dL Glucose 126 H (74-99) mg/dL Microbiology - Last 24 Hours (Table) 07/27/17 15:20 Urine Culture - Final Urine,Catheterized Assessment and Plan Plan: Assessment and plan #1 fall with evidence of impacted left femoral neck fracture, scheduled for surgery tomorrow. #2 chronic persistent atrial fibrillation, on Coumadin for anticoagulation, INR 2.0 this morning. #3 hypertension #4 diabetes #5 hyperlipidemia #6 prior CVA #7 Prior myocardial infarction, most recent cardiac catheterization was performed in March 2017 which revealed normal coronary arteries Plan From cardiology's perspective, we'll continue current medications. Patient's rate is much more stable today. Ejection fraction normal. Postoperatively we will need to resume anticoagulation dizziness possible because of the patient's history of stroke and persistent atrial fibrillation. We will continue to follow. DNP note has been reviewed, I agree with a documented findings and plan of care. Patient was seen and examined.
--- NOTE | 2017-07-29 16:33 | P.PN ---
Progress Note - Text Progress Note Date: 07/29/17 DATE OF SERVICE: 07/29/2017 REASON FOR CONSULTATION: Medical management requested by Dr. Lomas. HISTORY OF PRESENT ILLNESS: 82-year-old female who tripped and fell now has an impacted left femoral neck fracture. Follow occurred simply by missing a step. No other precipitating cause. Has a history of chronic atrial fibrillation and is on Coumadin for the same., Uncontrolled on arrival into the emergency department in the 120s. Placed on a Cardizem drip. History of cardiac catheterization in 2009 and 2016. Under normal circumstances patient is able to get around with fair exercise tolerance no chest pain or shortness of breath. INTERVAL HISTORY: 07/29/2017: Lying in bed appears comfortable. Sleeping. Easily arousable. No acute overnight events. Vital signs stable, afebrile. Left leg continues to hurt dysfunction around too much. No numbness or tingling has good sensation. Pain medications work pretty well. INR today is 2.0. Patient is scheduled for surgery tomorrow with orthopedics. Remains in atrial fibrillation rate somewhat uncontrolled low 100s to 120s. 07/28/2017: Lying in bed appears anxious and uncomfortable. States that her left hip hurts quite a bit as does the leg. No complaints or numbness or tingling and has good sensation leg just hurts her. Pain medication does a fair job of controlling pain. INR was supratherapeutic yesterday received 2.5 mg of vitamin K and this morning's value was 5.0. No overt signs or symptoms of bleeding. No dark stools. Atrial fibrillation remains somewhat uncontrolled in the low 100s. Has a poor appetite eating less than 50% of her meals. Requires assistance to get about the bed. Last BM prior to admission. REVIEW OF SYSTEMS: Done for constitutional ,cardiovascular, GI, pulmonary with relevant findings as above. CURRENT MEDICATIONS Lipitor, heparin subcutaneous. Dilaudid 1 mg IV push every 4 hours , Lopressor 150 mg by mouth twice a day. PHYSICAL EXAM VITAL SIGNS: temperature 97.2, pulse 89, respiratory rate 19, blood pressure 105/74, oxygen saturation 91% on 5 L. GENERAL APPEARANCE: Lying in bed, somewhat anxious appearing not in distress. HENT: Normocephalic, JVD not raised. Mass not palpable. Oral cavity dry mucous membranes, external appearance of ears and nose normal. EYES:Pupils equal. Conjunctiva normal. RESPIRATORY: Respiratory effort normal. Lungs diminished bilaterally to auscultation. CARDIOVASCULAR: First and second sounds normal. No edema. ABDOMEN: Soft. Liver and spleen not palpable. No tenderness. No mass palpable. PSYCHIATRY: Alert and oriented x3. Mood and affect a bit low. MUSCULOSKELETAL: Left lower extremity shortening and external rotation noted, unable to straight leg raise, left hip tender to palpation. INVESTIGATIONS: LABS: INR 2.0, sodium 133, BUN 24, creatinine 1.60, ECHOCARDIOGRAM: Atrial fibrillation, EF between 50-55%. Mild aortic regurgitation, mild aortic stenosis, mild to moderate mitral regurgitation, mild tricuspid regurgitation, moderate pulmonary hypertension. ASSESSMENT: -Left femoral neck fracture secondary to fall -Chronic persistent atrial fibrillation flutter, uncontrolled, chronically on Coumadin -Obesity body mass index of 38. -Hyperlipidemia. -Diabetes mellitus type 2 diet controlled blood glucose checks daily. -IV Cardizem drip monitoring. -Coumadin monitoring. INR 2.0 today PLAN: Continue to monitor INR daily. Tentative plan for left hip surgery on Wednesday with orthopedics. Heart rate improved but remains uncontrolled in the 100s to 1 teens. Coumadin on hold per cardiology. Once surgery is complete reinitiate anticoagulation as soon as possible for stroke prevention. Plan of care discussed with the patient at bedside she is agreeable. We will follow closely. ETHYLBENZENE OXIDIZER statement: Patient was seen and examined by nurse practitioner Hayde Solomon and all elements of the case discussed with attending Dr. Sanabria
--- NOTE | 2017-07-29 20:33 | PN ---
PROGRESS NOTE DATE OF SERVICE: 07/29/17 ATTENDING NOTE: The patient was seen and examined by me. I discussed with nurse practitioner, Efrenvijay. Patient is currently lying in bed. Some pain in the left hip. Atrial fibrillation remains under control in the one teens. PHYSICAL EXAMINATION: Temperature 97.5, pulse one teens, respiration 19, blood pressure 103/78, pulse ox 96% on 5 L. General appearing: Lying in bed. HEART: Sounds irregular. Lungs decreased breath sounds. INVESTIGATIONS: White count 8.8, hemoglobin 11.4, potassium 4.6. INR is 2. BUN 24, creatinine 1.6. ASSESSMENT: 1. Left femoral neck fracture secondary to fall. 2. Persistent atrial fibrillation rate uncontrolled. 3. Coumadin monitoring, INR down to 2. 4. Obesity; BMI 38. 5. Hyperlipidemia. 6. Diabetes mellitus type 2. 7. Acute renal failure, cause unclear at this time. Rule out rhabdomyolysis although checking looking back patient's total creatinine kinase was 125. PLAN: Keep a close eye on patient's electrolytes. The patient is on Lopressor 150 b.i.d. Follow with Cardiology. Increase IV fluids to 100 mL an hour. Recheck electrolytes in the morning. Awaiting surgery. MMODL / IJN: [id number] /
[2017-07-29] MEDS ORDERED: ONDANSETRON 4 MG/2 ML VIAL IVP ONE (20:41)
[2017-07-29] MEDS ORDERED: HYDROmorphone 0.5 MG/0.5 ML SYRINGE IVP PRN (20:41)
[2017-07-29] MEDS ORDERED: DEXAMETHASONE SOD PHOSPHATE 10 MG/ML 1 ML VIAL IV ONE (20:45)
[2017-07-29] MEDS: LACTATED RINGERS 1,000 ML IV SCH (21:01)
[2017-07-30] MEDS: SODIUM CHLORIDE 0.9% 1,000 ML IV SCH ×2 (00:15→15:44)
[2017-07-30] MEDS: HYDROmorphone 0.5 MG/0.5 ML SYRINGE IVP PRN ×3 (02:11→21:55)
[2017-07-30 06:44] LABS: Calcium 8.8 mg/dL (8.4-10.2); INR 1.4 (<1.2); Potassium 5.4 mmol/L (3.5-5.1); Prothrombin Time 13.1 sec (9.0-12.0)
[2017-07-30] MEDS: METOPROLOL TARTRATE 50 MG TAB PO SCH ×2 (10:00→20:17)
[2017-07-30] MEDS: ATORVASTATIN 10 MG TAB PO SCH (10:00)
[2017-07-30] MEDS ORDERED: IV FLUID CONTINUATION 1,000 ML IV ONE (10:30)
[2017-07-30] MEDS ORDERED: PHENYLEPHRINE-0.9% NACL SYG 1 MG/10 ML SYRINGE ONE (12:09)
[2017-07-30] MEDS ORDERED: NEOSTIGMINE 1 MG/ML 10 ML VIAL ONE (12:09)
[2017-07-30] MEDS ORDERED: ROCURONIUM BROMIDE 10 MG/ML 10 ML VIAL IV ONE (12:09)
[2017-07-30] MEDS ORDERED: PROPOFOL 10 MG/ML 20 ML VIAL IV ONE (12:09)
[2017-07-30] MEDS ORDERED: GLYCOPYRROLATE 0.2 MG/ML 2 ML VIAL ONE (12:09)
[2017-07-30] MEDS ORDERED: LIDOCAINE 1% INJ 10MG/ML (20 ML MDV) ONE (12:09)
[2017-07-30] MEDS ORDERED: fentaNYL (PF) 50 MCG/ML 2 ML AMP ONE (12:09)
[2017-07-30] MEDS ORDERED: ESMOLOL 100 MG/10 ML VIAL ONE (12:09)
[2017-07-30] MEDS ORDERED: SODIUM CHLORIDE 0.9% 100 ML with ceFAZolin 3,000 MG IV ONE ×2 (12:30)
[2017-07-30] MEDS ORDERED: ceFAZolin 1,000 MG in SODIUM CHLORIDE 0.9% 1,000 ML IRRIGATION ONE (12:44)
[2017-07-30] MEDS ORDERED: LACTATED RINGERS 1,000 ML IV ONE (13:09)
[2017-07-30] MEDS ORDERED: NALOXONE 0.4 MG/ML 1 ML VIAL IV PRN (13:27)
[2017-07-30] MEDS ORDERED: HYDROcodone/APAP 7.5-325MG 1 EACH TAB PO PRN (13:27)
[2017-07-30] MEDS ORDERED: MAGNESIUM HYDROXIDE 2,400 MG/10 ML CUP PO PRN (13:27)
[2017-07-30] MEDS ORDERED: ACETAMINOPHEN TAB 325 MG TAB PO PRN (13:27)
[2017-07-30] MEDS ORDERED: ONDANSETRON 4 MG/2 ML VIAL IVP PRN (13:27)
--- NOTE | 2017-07-30 13:58 | P.OP ---
Date of Procedure: 07/30/17 Preoperative Diagnosis: Displaced left femoral neck fracture Postoperative Diagnosis: Same Procedure(s) Performed: Left hip [id number]-[id number] Implants: Depuy Corail size 11 collared press-fit femoral stem, -3 neck, 48 mm unipolar head. Anesthesia: JOSÉ MIGUEL Surgeon: Eddie Lomas Staffing Executive #1: Jer Tay Estimated Blood Loss (ml): 250 Pathology: other (Femoral head) Condition: stable Disposition: PACU Indications for Procedure: The patient's a 72-year-old female who presents after falling injuring herself. Upon evaluation she is noted of displaced left femoral neck fracture. A discussion of the risks and benefits of operative intervention was made with the patient. She opted to proceed. Operative risks to include infection, neurovascular injury, development of blood clots, possible fracture, possible dislocation, possible leg length discrepancy and need for subsequent procedures was discussed. Informed consent was obtained. Operative Findings: As below Description of Procedure: The patient was brought to the operating room, and after induction of general anesthesia was placed into the lateral decubitus position. The bony prominences were appropriately padded. The pelvis was stabilized perpendicular to the floor with a pegboard. The left lower extremity was prepped and draped in normal fashion. A 15 cm incision was then made centered over the greater trochanter extending superiorly to level ASIS and distally in line with the femoral shaft. The skin and subcu tissues were divided sharply. Electrocautery was used for hemostasis. The fascia sabrina was split as well as the gluteus angelika fascia. The muscle fibers were bluntly dissected proximally. A self-retaining retractor was placed. The anterior posterior margins of the gluteus medius muscles identified in the anterior two thirds detached from the greater trochanter with electrocautery. The gluteus minimus tendon was identified and detached in a similar fashion. A T-shaped capsulotomy is performed. The capsular flaps were tagged with #2 Ethibond suture. The femoral neck fracture was noted. A lower neck cut was then made approximately 1 cm above the level of the lesser trochanter at a 45 angled shaft. The head was then extracted with a corkscrew. The acetabulum was inspected. It was intact. No significant cartilage injury was noted. Attention was then paid towards preparing the proximal femur. A box chisel was used to open the metaphyseal region. A canal finder was used to find the femoral canal. Sequential broaching was performed with the leg perpendicular to the floor in 15 of anteversion up to a size 11 broach. There was good rotational stability. A calcar mill was used to fashion the medial calcar. A - 3 neck along with a 48 mm trial head was placed. The hip was gently relocated. It was taken through range of motion and felt to be stable in flexion and extension with internal and external rotation. I felt there was adequate rastafari of soft tissue tension. The hip was gently dislocated. The trial components were then removed. The final femoral stem was inserted in the same 15 of anteversion with the leg perpendicular to the floor. Again there was good rotational stability. The -3 neck and 48 mm unipolar head was gently impacted. The hip was gently reduced. Again taken through range of motion felt to be stable in flexion and extension with internal and external rotation. Again I felt there was adequate rastafari of soft tissue tension. Pulsatile lavage was utilized. The gluteus minimus and medius tendons reattached the greater trochanter with #2 Ethibond suture. The fascia sabrina and gluteus angelika fascia was closed in a similar manner. The deep subcu tissues were reapproximated with interrupted #1 Vicryl suture. The subcu tissues reapproximated interrupted 2-0 Vicryl sutures. The skin was reapproximated with 3-0 subcuticular strata fix suture. Skin tape and adhesive was applied. A sterile dressing was applied. The patient was awoken from general anesthesia and transferred to the recovery room in fair condition. Blood loss was estimated at 250 mL. No complications were incurred. Sponge and needle counts were correct in the case.
[2017-07-30] MEDS ORDERED: MEPERIDINE 50 MG/ML SYRINGE IVP ONE ×3 (14:10→14:15)
--- NOTE | 2017-07-30 14:11 | P.PN ---
Progress Note - Text Progress Note Date: 07/30/17 DATE OF SERVICE: 07/30/2017 REASON FOR CONSULTATION: Medical management requested by Dr. Lomas. HISTORY OF PRESENT ILLNESS: 82-year-old female who tripped and fell now has an impacted left femoral neck fracture. Follow occurred simply by missing a step. No other precipitating cause. Has a history of chronic atrial fibrillation and is on Coumadin for the same., Uncontrolled on arrival into the emergency department in the 120s. Placed on a Cardizem drip. History of cardiac catheterization in 2009 and 2016. Under normal circumstances patient is able to get around with fair exercise tolerance no chest pain or shortness of breath. INTERVAL HISTORY: 07/30/2017: Lying in bed quietly resting. Easily arousable. No acute overnight events, vital signs are stable. Afebrile. Left leg continues to pain her. Pain medication does a fair job. Potassium 5.4 redraw 5.5 BUN and creatinine elevated. INR 1.4. Will receive dextrose, insulin and calcium gluconate. Scheduled to go to surgery today for left hip repair with orthopedics. Remains nothing by mouth for surgery. Patient refusing to have a bowel movement until her hip is repaired. 07/29/2017: Lying in bed appears comfortable. Sleeping. Easily arousable. No acute overnight events. Vital signs stable, afebrile. Left leg continues to hurt dysfunction around too much. No numbness or tingling has good sensation. Pain medications work pretty well. INR today is 2.0. Patient is scheduled for surgery tomorrow with orthopedics. Remains in atrial fibrillation rate somewhat uncontrolled low 100s to 120s. 07/28/2017: Lying in bed appears anxious and uncomfortable. States that her left hip hurts quite a bit as does the leg. No complaints or numbness or tingling and has good sensation leg just hurts her. Pain medication does a fair job of controlling pain. INR was supratherapeutic yesterday received 2.5 mg of vitamin K and this morning's value was 5.0. No overt signs or symptoms of bleeding. No dark stools. Atrial fibrillation remains somewhat uncontrolled in the low 100s. Has a poor appetite eating less than 50% of her meals. Requires assistance to get about the bed. Last BM prior to admission. REVIEW OF SYSTEMS: Done for constitutional ,cardiovascular, GI, pulmonary with relevant findings as above. CURRENT MEDICATIONS Tylenol, Mead, Lipitor, cefazolin, Pepcid, heparin subcutaneous. Lactated Ringer's, Dilaudid 1 mg IV push every 4 hours , Lopressor 150 mg by mouth twice a day. PHYSICAL EXAM VITAL SIGNS: temperature 97.2, pulse 89, respiratory rate 19, blood pressure 105/74, oxygen saturation 91% on 5 L. GENERAL APPEARANCE: Lying in bed, somewhat anxious appearing not in distress. HENT: Normocephalic, JVD not raised. Mass not palpable. Oral cavity dry mucous membranes, external appearance of ears and nose normal. EYES:Pupils equal. Conjunctiva normal. RESPIRATORY: Respiratory effort normal. Lungs diminished bilaterally to auscultation. CARDIOVASCULAR: First and second sounds normal. No edema. ABDOMEN: Soft. Liver and spleen not palpable. No tenderness. No mass palpable. PSYCHIATRY: Alert and oriented x3. Mood and affect a bit low. MUSCULOSKELETAL: Left lower extremity shortening and external rotation noted, unable to straight leg raise, left hip tender to palpation. INVESTIGATIONS: LABS: INR 1.4, sodium 135, potassium 5.4, BUN 37, creatinine 1.70 ASSESSMENT: -Left femoral neck fracture secondary to fall -persistent atrial fibrillation flutter, uncontrolled, chronically on Coumadin -Obesity body mass index of 38. -Hyperlipidemia. -Diabetes mellitus type 2 diet controlled blood glucose checks daily. -Acute renal failure cause unclear at this time rhabdomyolysis unlikely as creatinine kinase was 125. -Coumadin monitoring. INR 1.4 today PLAN: Continue to monitor INR daily. Scheduled for surgery at 11 AM this morning. Heart rate under better control today. Coumadin on hold per cardiology. Fluids continue at 100 mL an hour. Once surgery is complete reinitiate anticoagulation as soon as possible for stroke prevention. Plan of care discussed with the patient at bedside she is agreeable. We will follow closely. CREDIT VERIFICATION CLERK statement: Patient was seen and examined by nurse practitioner Hayde Solomon and all elements of the case discussed with attending Dr. Sanabria
--- NOTE | 2017-07-30 14:22 | XR ---
EXAMINATION TYPE: XR Hip Limited LT DATE OF EXAM: 07/30/2017 COMPARISON: NONE HISTORY: 72-year-old female status post hip surgery, assess surgical alignment TECHNIQUE: AP portable frontal view FINDINGS: Image demonstrates left hip hemiarthroplasty. Alignment appears grossly anatomic. Femoral short stem component appears well-seated without periprosthetic fracture. Soft tissue air related to recent oper ation. Suggestion of some heterotopic ossification in the subcutaneous fat lateral hip. IMPRESSION: Uncomplicated postoperative appearance left hip hemiarthroplasty.
[2017-07-30 15:12] LABS: Hemoglobin A1C 7.3 % (4.0-6.0)
[2017-07-30] MEDS: HYDROcodone/APAP 7.5-325MG 1 EACH TAB PO PRN ×2 (15:50→20:15)
[2017-07-30 16:53] LABS: Glucose,Whole Blood 175 mg/dL (75-99)
[2017-07-30] MEDS: LACTATED RINGERS 1,000 ML IV SCH (20:04)
[2017-07-30] MEDS: SENNOSIDES-DOCUSATE SODIUM 1 EACH TAB PO SCH (20:15)
[2017-07-30 20:54] LABS: Glucose,Whole Blood 136 mg/dL (75-99)
--- NOTE | 2017-07-30 22:48 | PN ---
PROGRESS NOTE DATE OF SERVICE: 07/30/2017 ATTENDING NOTE: The patient seen and examined by me. I discussed with my nurse practitioner, Ms. Solomon. The patient has left hip fracture, now status post yamini arthroplasty. Heart rate uncontrolled. EXAM: LUNGS: Decreased breath sounds. INVESTIGATIONS: Potassium 5.5, BUN 37, creatinine 1.70. ASSESSMENT: 1. Left femoral neck fracture secondary to fall followed by hip hemiarthroplasty. 2. Persistent atrial fibrillation, rate uncontrolled. 3. Coumadin monitoring. 4. Obesity; BMI 38. 5. Hyperlipidemia. 6. Diabetes mellitus type 2. 7. Acute renal failure. Creatinine up to 1.7. 8. Hyperkalemia secondary to renal failure. PLAN: Continue with hydration with saline. Nephrology was consulted. Hyperkalemia will be addressed. MMODL / IJN: [id number] /
[2017-07-31] MEDS: HYDROmorphone 0.5 MG/0.5 ML SYRINGE IVP PRN ×3 (01:58→20:13)
[2017-07-31] MEDS: SODIUM CHLORIDE 0.9% 1,000 ML IV SCH ×2 (01:59→16:00)
[2017-07-31 06:11] LABS: Glucose,Whole Blood 128 mg/dL (75-99)
[2017-07-31 06:16] LABS: Basophils % (A) 0 %; Eosinophils % (A) 0 %; HCT 35.5 % (34.0-46.0); HGB 10.4 gm/dL (11.4-16.0); Hypochromasia Marked; Lymphocytes # (A) 0.7 k/uL (1.0-4.8); Lymphocytes % (A) 6 %; MCHC 29.4 g/dL (31.0-37.0); Macrocytosis Slight; Mean Platelet Volume 7.2; Monocytes # (A) 0.7 k/uL (0-1.0); Monocytes % (A) 6 %; Neutrophils # (A) 9.4 k/uL (1.3-7.7); Neutrophils % (A) 86 %; Platelet Count 203 k/uL (150-450); RBC 3.48 m/uL (3.80-5.40); RDW 13.1 % (11.5-15.5)
[2017-07-31 06:29] LABS: INR 1.4 (<1.2); Prothrombin Time 13.5 sec (9.0-12.0)
[2017-07-31 06:38] LABS: Calcium 8.6 mg/dL (8.4-10.2); Potassium 5.1 mmol/L (3.5-5.1)
[2017-07-31] MEDS: FAMOTIDINE 20 MG TAB PO SCH (09:05)
[2017-07-31] MEDS: ATORVASTATIN 10 MG TAB PO SCH (09:05)
[2017-07-31] MEDS: METOPROLOL TARTRATE 50 MG TAB PO SCH ×2 (09:05→20:13)
[2017-07-31] MEDS: HYDROcodone/APAP 7.5-325MG 1 EACH TAB PO PRN ×2 (11:41→17:16)
[2017-07-31 11:42] LABS: Glucose,Whole Blood 151 mg/dL (75-99)
--- NOTE | 2017-07-31 12:29 | P.PN ---
Subjective Progress Note Date: 07/31/17 This is a 72-year-old female who follows regularly with Dr. Montana in the office. She has known history of chronic persistent atrial fibrillation , on Coumadin for anticoagulation, history of prior myocardial infarction, hyperlipidemia, history of CVA, prior history of smoking, hypertension, patient most recently underwent a cardiac catheterization in March 2017 because of a positive stress test, she was found to have normal coronary arteries with normal left ventricular systolic function. Patient presents to the hospital after experiencing a fall. She did not pass out, she just became unsteady and fell to the ground. EKG on presentation here showed atrial fibrillation with a rapid ventricular response and the patient was initiated on IV Cardizem in the emergency room. X-ray of the hip revealed impacted left femoral neck fracture. Laboratory data was reviewed, white blood cell count 12.7, hemoglobin 12.6, platelet count 228. INR on admission 3.9, 5.0 this morning. Potassium 4.0, BUN 17, creatinine 1.0. Troponin 0.017. Patient denies having any chest discomfort, no difficulty in breathing. She is complaining of significant pain in her left hip. This morning as well as lower back discomfort. According to the office note, patient should be on metoprolol 150 mg twice a day we will discontinue the IV Cardizem and initiate metoprolol 150 twice a day. 07/29/2017 Patient seen and examined this morning, denies any difficulty in breathing or chest discomfort. Echocardiogram with Doppler study was performed which revealed an ejection fraction of 50-55%. Mild to moderate mitral regurg. Blood pressure 102/70, heart rate in the 80s today. She is scheduled to undergo surgical intervention of her left more alert fracture tomorrow. Her INR today is down to 2. Creatinine is 1.6, she is not on any diuretics or medications to the fact that. We will check lytes BUN and creatinine again in the morning. 07/31/2017 Patient seen and examined this morning, feeling sleepy. Denies any chest discomfort or difficulty in breathing. Status post surgery yesterday. INR this morning 1.4. Coumadin has been resumed per or so protocol, she will receive 7-1/2 per their protocol today. Objective - Vital Signs Vital signs: Vital Signs Temp 97.6 F 07/31/17 08:00 Pulse 113 H 07/31/17 08:00 Resp 16 07/31/17 08:00 BP 146/65 07/31/17 08:00 Pulse Ox 99 07/31/17 08:00 Intake & Output 07/30/17 07/31/17 07/31/17 18:59 06:59 18:59 Intake Total 1291 300 465 Output Total 750 700 Balance 541 -400 465 Weight 124 kg Intake: IV 1051 Intake, IV Titration 300 225 Amount Sodium Chloride 0.9% 1, 300 75 000 ml @ 75 mls/hr IV . [id number] [facility] Rx#:[id number] Sodium Chloride 0.9% 100 100 ml As IV .STK-MED ONE with ceFAZolin 3,000 mg Rx#:[id number] ceFAZolin 3 gm In Sodium 50 Chloride 0.9% 50 ml @ 50 mls/hr IVPB Q8HR [facility] Rx#: [id number] Oral 240 240 Output: Urine 500 700 Uretheral (Crockett) 200 250 Estimated Blood Loss 250 Other: Voiding Method Indwelling Catheter Indwelling Catheter Indwelling Catheter - Exam PHYSICAL EXAMINATION: HEENT: Head is atraumatic, normocephalic. Pupils equal, round. Neck is supple. There is no elevated jugular venous pressure. HEART EXAMINATION: Heart S1 and S2 irregularly irregular CHEST EXAMINATION: Lungs are clear to auscultation and precussion. No chest wall tenderness is noted on palpation or with deep breathing. ABDOMEN: Soft, nontender. Bowel sounds are heard. No organomegaly noted. EXTREMITIES:[ 2+ peripheral pulses with no evidence of peripheral edema significant pain noted at the left hip area NEUROLOGIC patient is awake, alert and oriented -3. - Labs CBC & Chem 7: 07/31/17 05:41 07/31/17 05:41 Labs: Abnormal Lab Results - Last 24 Hours (Table) 07/30/17 07/30/17 07/30/17 Range/Units 05:56 16:48 20:52 WBC (3.8-10.6) k/uL RBC (3.80-5.40) m/uL Hgb (11.4-16.0) gm/dL MCV (80.0-100.0) fL MCHC (31.0-37.0) g/dL Neutrophils # (1.3-7.7) k/uL Lymphocytes # (1.0-4.8) k/uL PT (9.0-12.0) sec INR (<1.2) BUN (7-17) mg/dL Creatinine (0.52-1.04) mg/dL Glucose (74-99) mg/dL POC Glucose (mg/dL) 175 H 136 H (75-99) mg/dL Hemoglobin A1c 7.3 H (4.0-6.0) % 07/31/17 07/31/17 07/31/17 Range/Units 05:41 05:41 05:41 WBC 11.0 H (3.8-10.6) k/uL RBC 3.48 L (3.80-5.40) m/uL Hgb 10.4 L (11.4-16.0) gm/dL MCV 102.0 H (80.0-100.0) fL MCHC 29.4 L (31.0-37.0) g/dL Neutrophils # 9.4 H (1.3-7.7) k/uL Lymphocytes # 0.7 L (1.0-4.8) k/uL PT 13.5 H (9.0-12.0) sec INR 1.4 H (<1.2) BUN 42 H (7-17) mg/dL Creatinine 1.70 H (0.52-1.04) mg/dL Glucose 138 H (74-99) mg/dL POC Glucose (mg/dL) (75-99) mg/dL Hemoglobin A1c (4.0-6.0) % 07/31/17 07/31/17 Range/Units 06:08 11:39 WBC (3.8-10.6) k/uL RBC (3.80-5.40) m/uL Hgb (11.4-16.0) gm/dL MCV (80.0-100.0) fL MCHC (31.0-37.0) g/dL Neutrophils # (1.3-7.7) k/uL Lymphocytes # (1.0-4.8) k/uL PT (9.0-12.0) sec INR (<1.2) BUN (7-17) mg/dL Creatinine (0.52-1.04) mg/dL Glucose (74-99) mg/dL POC Glucose (mg/dL) 128 H 151 H (75-99) mg/dL Hemoglobin A1c (4.0-6.0) % Assessment and Plan Plan: Assessment and plan #1 fall with evidence of impacted left femoral neck fracture, scheduled for surgery tomorrow. #2 chronic persistent atrial fibrillation, on Coumadin for anticoagulation, INR 2.0 this morning. #3 hypertension #4 diabetes #5 hyperlipidemia #6 prior CVA #7 Prior myocardial infarction, most recent cardiac catheterization was performed in March 2017 which revealed normal coronary arteries Plan From cardiology's perspective, we'll continue current medications. patient will receive 7-1/2 mg of Coumadin today per or so protocol. continue to monitor daily INRs. DNP note has been reviewed, I agree with a documented findings and plan of care. Patient was seen and examined.
--- NOTE | 2017-07-31 13:27 | P.PN ---
Progress Note - Text Progress Note Date: 07/31/17 S: The patient has no complaints. They deny shortness of breath or chest pain. O: Afebrile, vital signs stable Homans negative left lower extremity Distal neurovascular status intact in the operative extremity Incision clean, dry , and intact left hip A/P: Postoperative day 1 status post left hip hemiarthroplasty Medical management DVT prophylaxis/Coumadin resumed Discharge planning Up with PT/weightbearing as tolerated left leg with walker
--- NOTE | 2017-07-31 15:15 | XR ---
EXAMINATION TYPE: XR chest 1V portable DATE OF EXAM: 07/31/2017 Comparison: 03/20/2017 Clinical History: 72-year-old female Crackles in lungs b/l Findings: Are mildly enlarged. Mild elongation of the thoracic aorta. Mild diffuse interstitial prominence is n oted. No significant pleural effusion. Nodular density in the right midlung probable summation artifa ct and should be reassessed on follow-up. Impression: 1. Mild cardiomegaly and interstitial densities. Correlate for mild pulmonary vascular congestion. 2. Nodular right midlung density may be summation artifact. Short interval follow-up recommended to korin guajardo this region.
--- NOTE | 2017-07-31 16:32 | PN ---
PROGRESS NOTE DATE OF SERVICE: 07/31/2017 This 72-year-old woman who was admitted after left femoral neck fracture also had left hemiarthroplasty. The patient is mildly confused. The patient is also having some cough at this time. The creatinine is found to be 1.7. The baseline is 1 and WBC 11, hemoglobin is 10.4. The most recent chest x-ray done today was personally reviewed by me and showed possibly some atelectatic changes. No right mid lung density, probably artifact was also noted. Orthopedic services is following the patient closely as well as cardiology. The patient has chronic persistent atrial fibrillation and is on Coumadin. INR is today 1.4. PAST MEDICAL HISTORY: Reviewed. REVIEW OF SYSTEMS: Cardiovascular: As mentioned earlier. Respiratory: As mentioned earlier. GI: No nausea or vomiting. : No dysuria. Nervous system: Generalized weakness. CURRENT MEDICATIONS: Reviewed and include: 1. Tylenol p.r.n. 2. Docena 7.5 q.6h p.r.n. 3. Lipitor 10 mg. 4. Pepcid 20 mg daily. 5. Dilaudid 1 mg p.r.n. 6. Milk of magnesia. 7. Lopressor 150 mg b.i.d. 8. Narcan. 9. Zofran. 10.Senokot-S. 11.Coumadin. PHYSICAL EXAM: Patient is alert, oriented x3. Pulse 90, blood pressure 116/68, respiratory rate 16, temperature 98.7, pulse ox 98% on 3 L. HEENT is conjunctivae normal. Oral mucosa moist. Neck is no jugular venous distention. No carotid bruit. No lymph node enlargement. Cardiovascular S1, S2 muffled. No S3. No S4. RESPIRATORY: Breath sounds diminished in the bases. A few scattered rhonchi and crackles. Expiratory wheezing also heard. ABDOMEN: Soft, obese, nontender. No mass palpable. Legs status post surgery. Nervous system: Higher functions as mentioned earlier, moves all 4 limbs. No focal deficits. Lymphatics: No lymph nodes palpable in the neck, axillae or groin. Skin no ulcer, rash or bleeding. LABS: WBC 11, hemoglobin 10.4, INR 1.4. ASSESSMENT: 1. Status post left femoral neck fracture and left hip hemiarthroplasty. 2. Persistent atrial fibrillation on Coumadin. 3. Coumadin monitoring. 4. Acute renal failure. 5. Obesity. 6. Hyperlipidemia. 7. Diabetes type 2. 8. Hyperkalemia secondary to renal failure. 9. Increased WBC. 10.History of cerebrovascular accident, transient ischemic attack. 11.Gait dysfunction. RECOMMENDATIONS AND DISCUSSION: In this 72-year-old woman who presented with multiple complex medical issues, we will monitor the patient closely. Continue the current medications, symptomatic treatment. I recommend to avoid nephrotoxic medications and IV fluids and I would also recommend monitor PT/INR closely, DVT prophylaxis. I would add bronchodilators and we will continue to monitor. PT, OT evaluation. Further recommendations to follow. MMODL / IJN: [id number] /
[2017-07-31 16:50] LABS: Glucose,Whole Blood 187 mg/dL (75-99)
[2017-07-31 17:41] LABS: Appearance,Urine Cloudy (Clear); Bacteria,Urine Rare /hpf; Bilirubin,Urine Negative (Negative); Blood,Urine Moderate (Negative); Color,Urine Yellow; Glucose,Urine (UA) Negative (Negative); Ketones,Urine Negative (Negative); Leukocyte Esterase,Urine Large (Negative); Mucus,Urine Rare /hpf; Nitrite,Urine Negative (Negative); PH, Urine 5.5 (5.0-8.0); Protein,Urine 1+ (Negative); RBC,Urine 110 /hpf (0-5); Specific Gravity,Urine 1.019 (1.001-1.035); Squamous Epithelial Cell,Urine 1 /hpf (0-4); Urobilinogen,Urine <2.0 mg/dL (<2.0); WBC,Urine 84 /hpf (0-5)
[2017-07-31] MEDS ORDERED: WARFARIN 5 MG TAB PO ONE (18:00)
[2017-07-31] MEDS ORDERED: WARFARIN 7.5 MG TAB PO ONE (18:00)
--- NOTE | 2017-07-31 18:26 | CONS ---
CONSULTATION REASON FOR CONSULT: Renal failure. HISTORY OF PRESENT ILLNESS: Patient is a 72-year-old female who was admitted to the hospital on 07/27/2017 with a history of fall and subsequent left hip fracture. She is currently status post left hip hemiarthroplasty which was done on 07/30/2017. Patient's serum creatinine was 1.0 on initial admission and is now at 1.7. It was 1.7 yesterday as well. The patient has an indwelling Crockett catheter, 24 hour urine output of 1.4 L. Blood pressure has not been significantly low recently. Staying at about 150-120 mmHg systolic. Previously patient had low blood pressures on 07/28 and 07/29/2017 with systolic as low as 89 and 97 mmHg. The patient is maintained on IV fluids at 75 mL an hour. She has not received any IV contrast or nonsteroidal anti-inflammatory agents. PAST MEDICAL HISTORY: Significant for hypertension, atrial fibrillation, CVA/TIA. Hyperlipidemia, history of MD, diet-controlled diabetes. PAST SURGICAL HISTORY: Cardiac catheterization, tonsillectomy, ORIF right ankle. SOCIAL HISTORY: Patient is a former smoker. No history of drug abuse or alcohol abuse. REVIEW OF SYSTEMS: Currently negative for any urinary symptoms, fever, chills, nausea, vomiting, abdominal pain, chest pain or shortness of breath. Rest of the review of systems as per HPI. Other systems negative. MEDICATIONS: Medications at home included Coumadin and Zocor. ALLERGIES: None. EXAMINATION: Patient is comfortable, awake. She is alert and oriented x3, not in any acute distress. Blood pressure is 146/65, heart rate 113 per minute. She is afebrile. Examination of the heart: S1, S2. Examination lungs: Bilateral breath sounds are heard. Decreased breath sounds at bases. Abdomen is soft, non-tender, obese. Examination lower extremity shows no significant edema. METAL CONTROL COORDINATOR exam is grossly intact. Patient is moving all 4 extremities. LABS: Sodium 137, potassium 5.1, chloride 104, BUN 42, serum creatinine 1.7, hemoglobin 10.4 g/dL. UA was completely clear on 07/27/2017 with no evidence of blood, protein, or cells. ASSESSMENT: 1. Acute kidney injury, acute tubular necrosis, currently nonoliguric. Patient has an indwelling Crockett catheter. Her previous UA was completely benign. I will repeat an a urinalysis. Etiology is likely secondary to hemodynamic instability associated with atrial fibrillation with RVR and episodes of hypotension initially. Currently patient is not on any nephrotoxic medications. I will continue the IV fluids and repeat labs in a.m. 2. Status post left hip hemiarthroplasty for fracture post fall. 3. Anemia, rule out iron deficiency. 4. History of cerebrovascular accident/transient ischemic attack. No focal deficits noted. 5. Atrial fibrillation with rapid ventricular response, currently with controlled ventricular response. 6. Obesity. 7. Concentric left ventricular hypertrophy with ejection fraction 50-55%. 8. Moderate pulmonary hypertension. PLAN: Continue IV fluids. Repeat labs in a.m. Repeat urinalysis. Thank you for this consultation. We will continue to follow the patient with you during her hospitalization. CASSY / BRITTANY: [id number] /
[2017-07-31] MEDS: SENNOSIDES-DOCUSATE SODIUM 1 EACH TAB PO SCH (20:11)
[2017-07-31] MEDS: cefTRIAXone IN SWFI 1,000 MG/10 ML SYRINGE IVP SCH (20:13)
[2017-07-31 20:54] LABS: Glucose,Whole Blood 164 mg/dL (75-99)
[2017-07-31] MEDS: IPRATROPIUM-ALBUTEROL 3 ML NEB INHALATION SCH (20:54)
[2017-08-01] MEDS: HYDROmorphone 0.5 MG/0.5 ML SYRINGE IVP PRN ×2 (01:46→21:47)
[2017-08-01 03:07] LABS: INR 1.5 (<1.2); Prothrombin Time 13.8 sec (9.0-12.0)
[2017-08-01 03:14] LABS: Calcium 8.6 mg/dL (8.4-10.2); Magnesium 2.1 mg/dL (1.6-2.3); Potassium 4.6 mmol/L (3.5-5.1)
[2017-08-01 03:21] LABS: Basophils % (A) 0 %; Eosinophils # (A) 0.3 k/uL (0-0.7); Eosinophils % (A) 3 %; HCT 34.7 % (34.0-46.0); HGB 10.6 gm/dL (11.4-16.0); Hypochromasia Slight; Lymphocytes # (A) 0.8 k/uL (1.0-4.8); Lymphocytes % (A) 9 %; MCH 30.3 pg (25.0-35.0); MCHC 30.5 g/dL (31.0-37.0); MCV 99.2 fL (80.0-100.0); Monocytes # (A) 0.7 k/uL (0-1.0); Monocytes % (A) 7 %; Neutrophils # (A) 7.1 k/uL (1.3-7.7); Neutrophils % (A) 79 %; Platelet Count 219 k/uL (150-450); RDW 13.4 % (11.5-15.5); WBC 8.9 k/uL (3.8-10.6)
[2017-08-01] MEDS: SODIUM CHLORIDE 0.9% 1,000 ML IV SCH ×2 (06:11→15:08)
[2017-08-01 06:44] LABS: Glucose,Whole Blood 140 mg/dL (75-99)
[2017-08-01 06:47] LABS: Appearance,Urine Cloudy (Clear); Bilirubin,Urine Negative (Negative); Blood,Urine Small (Negative); Color,Urine Yellow; Glucose,Urine (UA) Negative (Negative); Ketones,Urine Negative (Negative); Leukocyte Esterase,Urine Large (Negative); Mucus,Urine Occasional /hpf; Nitrite,Urine Negative (Negative); PH, Urine 5.5 (5.0-8.0); Protein,Urine 1+ (Negative); RBC,Urine 49 /hpf (0-5); Specific Gravity,Urine 1.018 (1.001-1.035); Squamous Epithelial Cell,Urine <1 /hpf (0-4); Uric Acid Crystals,Urine Occasional /hpf; Urobilinogen,Urine <2.0 mg/dL (<2.0); WBC,Urine 64 /hpf (0-5)
[2017-08-01] MEDS: HYDROcodone/APAP 7.5-325MG 1 EACH TAB PO PRN ×2 (06:47→17:42)
[2017-08-01] MEDS: IPRATROPIUM-ALBUTEROL 3 ML NEB INHALATION SCH ×3 (08:15→20:29)
[2017-08-01] MEDS: FAMOTIDINE 20 MG TAB PO SCH (09:48)
[2017-08-01] MEDS: ATORVASTATIN 10 MG TAB PO SCH (09:48)
[2017-08-01] MEDS: METOPROLOL TARTRATE 50 MG TAB PO SCH ×2 (09:48→21:58)
[2017-08-01] MEDS: cefTRIAXone IN SWFI 1,000 MG/10 ML SYRINGE IVP SCH (09:48)
[2017-08-01 12:01] LABS: Glucose,Whole Blood 181 mg/dL (75-99)
[2017-08-01] MEDS ORDERED: WARFARIN 7.5 MG TAB PO STA (13:46)
--- NOTE | 2017-08-01 16:10 | PN ---
PROGRESS NOTE Patient is seen for followup of acute kidney injury. She was admitted to the hospital with a history of fall and subsequent left hip fracture. The patient is status post left hip hemiarthroplasty on 07/30/2017. The patient's serum creatinine was 1.0 on initial admission. It is now at 1.7 mg/dL for the last 3 days. The patient currently has an indwelling Crockett catheter with good urine output. Her initial UA was completely clean with no evidence of blood, protein, or cells. Currently the urinalysis from the Crockett catheter shows significant WBCs and RBCs along with blood and protein. Systolic blood pressure was on the lower side running at 89-97 mmHg previously on 07/29/2017. Currently, patient is maintained on IV fluids. Overall, she states she is feeling better. EXAMINATION: Blood pressure is 118/72, heart rate 82 per minute. Patient is afebrile. Examination of the heart S1, S2. Examination of lungs bilateral breath sounds are heard. Abdomen is soft, nontender. Obese. Examination of the lower extremities shows no significant edema. LAB: Show sodium 140, potassium 4.6, serum creatinine 1.7, hemoglobin 10.6 g/dL, magnesium 2.1. UA shows 1+ protein, large leukocyte esterase, WBC 64, RBCs 49. ASSESSMENT: 1. Acute kidney injury, most likely secondary to hypoperfusion. Currently nonoliguric and with indwelling Crockett catheter. Repeat UA is positive as compared to her initial UA at the time of admission. Urine culture is negative twice. There may be a component of interstitial nephritis. However, since this is a urinalysis from the Crockett catheter, it may not be too accurate. A urine eosinophil will be ordered and I will hold off on the prednisone for now until we get back the results of the urine eosinophils. There are no nephrotoxic agents on board at this time and I will continue with the IV fluids. The patient is not on any proton pump inhibitors. 2. Status post fall and fracture of left hip status post left hip hemiarthroplasty. 3. History of cerebrovascular accident/transient ischemic attack, no focal deficits. 4. Atrial fibrillation with a RVR, currently with controlled ventricular response. 5. Concentric LVH with ejection fraction 50-55%. 6. Moderate pulmonary hypertension. 7. Obesity. 8. Anemia. Iron profile was ordered. I do not see it back yet. PLAN: 1. Check iron profile if not drawn yesterday. 2. Continue with IV fluids. 3. Check urine for eosinophiles. 4. Repeat labs in a.m. 5. Continue to avoid nephrotoxic agents. MMODL / IJN: [id number] /
[2017-08-01 17:08] LABS: Glucose,Whole Blood 179 mg/dL (75-99)
[2017-08-01 17:42] LABS: Glucose,Whole Blood 160 mg/dL (75-99)
[2017-08-01] MEDS: SENNOSIDES-DOCUSATE SODIUM 1 EACH TAB PO SCH (21:47)
--- NOTE | 2017-08-01 22:16 | PN ---
PROGRESS NOTE DATE OF SERVICE: 08/01/17 This 72-year-old woman was admitted after left femoral neck fracture is being closely monitored. No chest pain. No palpitations. No fever. The blood sugar is elevated. Creatinine is 1.7 at this time. PHYSICAL EXAM: Alert and oriented x2. Pulse 90, blood pressure 140/67, respirations 16, temperature 97.2, pulse ox 100% on room air. HEENT: Conjunctivae normal. Oral mucosa moist. Neck is no jugular venous distention. No carotid bruit. No lymph node enlargement. Cardiovascular system: S1, S2 muffled. Respiratory: Breath sounds diminished in the bases. A few rhonchi and no crackles. ABDOMEN: Soft, nontender. Legs no edema, no swelling. Central nervous system: No focal deficits. LABS: At this time WBC 8.1, hemoglobin 7.6. Other labs are noted. ASSESSMENT: 1. Status post left femoral neck fracture, left hip hemiarthroplasty. 2. Persistent atrial fibrillation on Coumadin. 3. Coumadin monitoring. 4. Acute renal failure. 5. Obesity. 6. Hyperlipidemia. 7. Diabetes type 2. 8. Hyperkalemia secondary to renal failure. 9. Increased WBC. 10.History of cerebrovascular accident, transient ischemic attack. 11.Gait dysfunction. RECOMMENDATIONS AND DISCUSSION: Recommend to continue current medications, management and symptomatic treatment. PT/OT evaluation. Nephrology input appreciated. Monitor creatinine. INR is 1.5. Closely monitor. Further recommendations to follow. MMODL / IJN: [id number] /
[2017-08-01 22:37] LABS: Iron Saturation 7.25 (12.00-45.00)
--- NOTE | 2017-08-01 23:58 | PN ---
PROGRESS NOTE This lady had a left hip fracture, status post surgery. Her anticoagulation is still suboptimal. INR is 1.5. I am giving 7.5 mg of Coumadin right now. Rate control is very good. She is in atrial fib which is chronic. Vital signs stable. S1-S2 heard normally, irregular rhythm noted, short systolic murmur noted. Lungs revealed decent air entry. Abdomen is soft. Lower extremity exam was deferred. I will recommend 7.5 mg of Coumadin now and we can move her to orthopedic floor and PT/INR should be optimized prior to discharge. I discussed my thoughts in detail with the patient. MMODL / IJN: [id number] /
[2017-08-02 04:36] LABS: Glucose,Whole Blood 139 mg/dL (75-99)
[2017-08-02] MEDS: HYDROcodone/APAP 7.5-325MG 1 EACH TAB PO PRN ×2 (06:20→14:02)
[2017-08-02 07:08] LABS: Basophils % (A) 0 %; Eosinophils # (A) 0.2 k/uL (0-0.7); Eosinophils % (A) 2 %; HCT 34.7 % (34.0-46.0); HGB 10.6 gm/dL (11.4-16.0); Hypochromasia Slight; Lymphocytes # (A) 0.8 k/uL (1.0-4.8); Lymphocytes % (A) 7 %; MCHC 30.4 g/dL (31.0-37.0); MCV 98.7 fL (80.0-100.0); Mean Platelet Volume 7.2; Monocytes # (A) 0.6 k/uL (0-1.0); Monocytes % (A) 5 %; Neutrophils # (A) 9.9 k/uL (1.3-7.7); Neutrophils % (A) 85 %; Platelet Count 239 k/uL (150-450); RBC 3.52 m/uL (3.80-5.40); RDW 13.5 % (11.5-15.5); WBC 11.6 k/uL (3.8-10.6)
[2017-08-02 07:22] LABS: Calcium 9.1 mg/dL (8.4-10.2); Potassium 4.6 mmol/L (3.5-5.1)
[2017-08-02 07:32] LABS: Glucose,Whole Blood 166 mg/dL (75-99)
[2017-08-02] MEDS: IPRATROPIUM-ALBUTEROL 3 ML NEB INHALATION SCH ×3 (08:36→21:54)
[2017-08-02] MEDS: FAMOTIDINE 20 MG TAB PO SCH (09:49)
[2017-08-02] MEDS: METOPROLOL TARTRATE 50 MG TAB PO SCH ×3 (09:49→20:41)
[2017-08-02] MEDS: ATORVASTATIN 10 MG TAB PO SCH (09:49)
[2017-08-02] MEDS: cefTRIAXone IN SWFI 1,000 MG/10 ML SYRINGE IVP SCH (09:51)
--- NOTE | 2017-08-02 10:07 | P.PN ---
Subjective Progress Note Date: 08/02/17 Principal diagnosis: Status post left hip hemiarthroplasty Patient seen today resting in her hospital bed, she appears comfortable. She continues to work with therapy. She is being followed by multiple medical specialists at this time. She denies any headaches, lightheadedness or chest pain. Objective - Vital Signs Vital signs: Vital Signs Temp 98.2 F 08/02/17 07:30 Pulse 98 08/02/17 09:00 Resp 16 08/02/17 07:30 BP 153/79 08/02/17 07:30 Pulse Ox 93 L 08/02/17 07:30 Intake & Output 08/01/17 08/02/17 08/02/17 18:59 06:59 18:59 Intake Total 1036 225 Output Total 1200 550 Balance -164 -325 Intake: IV 550 0.9 550 Intake, IV Titration 225 Amount Sodium Chloride 0.9% 1, 225 000 ml @ 75 mls/hr IV . [id number] Rx#:[id number] Oral 486 Output: Urine 1200 550 Uretheral (Crockett) 800 Other: Voiding Method Indwelling Catheter Indwelling Catheter # Voids 1 - Exam Left lower extremity: Incision is clean, dry, and intact. The prineo tape is in good condition. There is minimal soft tissue swelling and ecchymosis surrounding the medial and lateral aspects of the incision. Calf is soft, no tenderness with palpation. Plantar flexion, dorsiflexion, EHL, FHL are intact. Sensory exam to light touch throughout the extremity is intact, dorsal pedis pulses 2+. - Labs CBC & Chem 7: 08/02/17 06:25 08/02/17 06:25 Labs: Abnormal Lab Results - Last 24 Hours (Table) 08/01/17 08/01/17 08/01/17 Range/Units 02:47 11:59 16:55 WBC (3.8-10.6) k/uL RBC (3.80-5.40) m/uL Hgb (11.4-16.0) gm/dL MCHC (31.0-37.0) g/dL Neutrophils # (1.3-7.7) k/uL Lymphocytes # (1.0-4.8) k/uL BUN (7-17) mg/dL Creatinine (0.52-1.04) mg/dL Glucose (74-99) mg/dL POC Glucose (mg/dL) 181 H 179 H (75-99) mg/dL Iron 19 L (50-170) ug/dL Iron Saturation 7.25 L (12.00-45.00) 08/01/17 08/02/17 08/02/17 Range/Units 17:40 04:22 06:25 WBC 11.6 H (3.8-10.6) k/uL RBC 3.52 L (3.80-5.40) m/uL Hgb 10.6 L (11.4-16.0) gm/dL MCHC 30.4 L (31.0-37.0) g/dL Neutrophils # 9.9 H (1.3-7.7) k/uL Lymphocytes # 0.8 L (1.0-4.8) k/uL BUN (7-17) mg/dL Creatinine (0.52-1.04) mg/dL Glucose (74-99) mg/dL POC Glucose (mg/dL) 160 H 139 H (75-99) mg/dL Iron (50-170) ug/dL Iron Saturation (12.00-45.00) 08/02/17 08/02/17 Range/Units 06:25 07:31 WBC (3.8-10.6) k/uL RBC (3.80-5.40) m/uL Hgb (11.4-16.0) gm/dL MCHC (31.0-37.0) g/dL Neutrophils # (1.3-7.7) k/uL Lymphocytes # (1.0-4.8) k/uL BUN 31 H (7-17) mg/dL Creatinine 1.28 H (0.52-1.04) mg/dL Glucose 154 H (74-99) mg/dL POC Glucose (mg/dL) 166 H (75-99) mg/dL Iron (50-170) ug/dL Iron Saturation (12.00-45.00) Microbiology - Last 24 Hours (Table) 08/01/17 06:23 Urine Culture - Preliminary Urine,Catheterized Assessment and Plan Plan: Assessment: 1. Postop day #3 status post left hip hemiarthroplasty Plan: Pain control, continue use of oral medication Continue working with physical therapy GI and DVT prophylaxis, continue Coumadin Daily dressing changes On an orthopedic standpoint, the patient is stable for discharge to rehab Await recommendations from other medical specialties for a clearance to discharge Time with Patient: Less than 30
--- NOTE | 2017-08-02 10:15 | P.DS ---
Providers Date of admission: 07/27/17 14:59 Expected date of discharge: 08/04/17 Attending physician: Eddie Lomas Consults: 07/27/17 14:59 Consult Physician Routine Consulting Provider: Biju Sanabria Consult Reason/Comments: med Do you want consulting provider notified?: Yes 07/27/17 15:57 Consult Physician Routine Consulting Provider: Mario Reyes Consult Reason/Comments: clear Do you want consulting provider notified?: Yes 07/30/17 09:02 Consult Physician Routine Consulting Provider: Carole Baker Consult Reason/Comments: elevated bun/cre hyperkalemia Do you want consulting provider notified?: Yes Primary care physician: [facility] Course: Date of admission: 07/27/2017 Date of discharge: 08/04/2017 Admission diagnosis: Left femoral neck fracture Discharge diagnosis: Status post left hip hemiarthroplasty Attending physician: Dr. Lomas Surgical procedures: Left hip hemiarthroplasty Brief history: Patient is a 72-year-old female who presented to [facility] emergency room on 07/27/2017 after sustaining a fall at home. Upon arrival to the hospital, it was determined she had a left femoral neck fracture. Patient's INR was too high for surgery initially, she is placing subcu medication and her Coumadin was discontinued. We proceeded with surgery on 07/30/2017, Dr. Lomas as the attending doctor on this case. Hospital course: Details of patient's surgery can be found in operative report. Patient tolerated the procedure well and was subsequently transported to orthopedic floor. Patient's orthopeidc and medical care was provided daily. Patient had daily laboratory tests performed for evaluation of overall blood counts . Patient had daily physical therapy to include strengthening range of motion as well as education with walker ambulation. Patient was treated with heparin and Coumadin for their postoperative DVT prophylaxis during their inpatient stay. Patient was noted to have a relatively uneventful postoperative course. Patient reported satisfactory pain control with oral pain medications by postoperative day 0. Patient showed satisfactory progress with physical therapy. Patient moved steadily through the program and had no difficulty meeting the goals by postoperative day 5. Given patient's otherwise satisfactory course and having met physical therapy goals, plan is to discharge patient rehab on postoperative day 5. Discharge condition/disposition: Patient will be discharged to rehab in stable condition. Discharge medications: Instructions are given on resumption of patient's normal daily medications per primary care recommendation, in addition patient will be prescribed [place] 7.5 mg/325 mg, Colace 100 mg, Lopressor 100 mg, verapamil 20 mg Discharge instructions: 1. Wound care and infection precautions, keep incision dry and covered while showering, no lotions, creams, moisturizers. No soaking, tubs, pools, hottubs. Do not scrub over the incision. 2. Weight-bear as tolerated with walker / cane until follow-up. 3. Ice and elevate when necessary. Do not exceed 20 minutes per hour with ice pack. 4. Utilize compression sleeve until seen at first follow up appointment. 5. Visiting nursing care. 6. Home physical therapy. 7. Pain meds and anticoagulants per prescription. 8. Pain medication has potential to cause constipation. Increase oral fluid and fiber intake. Contact primary care provider if you have not had a bowel movement within 48 hours after discharge 9. No anti-inflammatory medication until discussed at first post operative visit, this including Motrin, Aleve, Mobic, Diclofenac, Aspirin. 10. Follow up in office at 2 weeks postop with Estuardo Tay PA-C 11. Follow up with your primary care doctor 7-10 days after discharge. 12. Contact [facility] with any questions, . Procedures: Left hip hemiarthroplasty Patient Condition at Discharge: Fair Plan - Discharge Summary Discharge Rx Participant: No New Discharge Prescriptions: New Docusate [Colace] 100 mg PO DAILY #30 capsule HYDROcodone/APAP 7.5-325MG [[place] 7.5] 1 - 2 each PO Q6HR PRN #60 tab PRN Reason: Pain Metoprolol Tartrate [Lopressor] 100 mg PO TID tab Verapamil [Isoptin] 40 mg PO TID tab Continue Warfarin [Coumadin] 5 mg PO DAILY Simvastatin [Zocor] 20 mg PO DAILY Discharge Medication List Warfarin [Coumadin] 5 mg PO DAILY 03/18/17 [History] Simvastatin [Zocor] 20 mg PO DAILY 07/27/17 [History] Docusate [Colace] 100 mg PO DAILY #30 capsule 08/03/17 [Rx] HYDROcodone/APAP 7.5-325MG [[place] 7.5] 1 - 2 each PO Q6HR PRN #60 tab 08/03/17 [ Rx] Metoprolol Tartrate [Lopressor] 100 mg PO TID tab 08/03/17 [Rx] Verapamil [Isoptin] 40 mg PO TID tab 08/03/17 [Rx] Follow up Appointment(s)/Referral(s): Tristin Montana MD [STAFF PHYSICIAN] - 2 Weeks Dada Maddox DO [Primary Care Provider] - 1-2 days Jer Tay PAC [PHYSICIAN CHILDREN'S ATTENDANT] - 08/18/17 2:00 pm Activity/Diet/Wound Care/Special Instructions: Orthopedic Discharge Instructions: 1. Wound care and infection precautions, keep incision dry and covered while showering, no lotions, creams, moisturizers. No soaking, pools, hot tubs. Do not scrub over incision. 2. Weight-bear as tolerated with walker / cane until follow-up. 3. Ice and elevate when necessary. Do not exceed 20 minutes per hour with ice pack. 4. Utilize compression sleeve until seen at first follow up appointment. 5. Visiting nursing care. 6. Home physical therapy. 7. Pain meds and anticoagulants per prescription. 8. Pain medication has potential to cause constipation. Increase oral fluid and fiber intake. Contact primary care provider if you have not had a bowel movement within 48 hours after discharge. 9. No anti-inflammatory medication until discussed at first post operative visit, this including Motrin, Aleve, Mobic, Diclofenac. 10. Follow up in office at 2 weeks postop with Estuardo Tay PA-C 11. Follow up with your primary care doctor 7-10 days after discharge. 12. Contact [facility] with any questions, . PRESCRIPTION IN CHART Discharge Disposition: TRANSFER TO SNF/ECF
[2017-08-02 10:19] LABS: INR 1.8 (<1.2); Prothrombin Time 16.2 sec (9.0-12.0)
[2017-08-02 11:15] LABS: Glucose,Whole Blood 182 mg/dL (75-99)
--- NOTE | 2017-08-02 11:15 | P.PN ---
Subjective Patient is seen in follow-up for acute kidney injury. Her baseline creatinine is 1 and peaked at 1.7 this admission. It is down to 1.28 today. Patient sustained a fall and a left hip fracture for which she underwent open reduction internal fixation on July 30. Currently she is resting in bed. Oral intake is good. She is maintained on normal saline at 75 mL an hour. No vomiting or diarrhea. Denies chest pain or shortness of breath. Vital signs are stable. General: The patient appeared well nourished and normally developed. HEENT: Head exam is unremarkable. Neck is without jugular venous distension. LUNGS: Lungs are clear to auscultation and percussion. Breath sounds decreased. HEART: Rate and Rhythm are regular. First and second heart sounds normal. No murmurs, rubs or gallops. ABDOMEN: Abdominal exam reveals normal bowel sounds. Non-tender and non- distended. No evidence of peritonitis. EXTREMITITES: No clubbing, cyanosis, or edema. Objective - Vital Signs Vital signs: Vital Signs Temp 98.2 F 08/02/17 07:30 Pulse 98 08/02/17 09:00 Resp 16 08/02/17 07:30 BP 153/79 08/02/17 07:30 Pulse Ox 93 L 08/02/17 07:30 Intake & Output 08/01/17 08/02/17 08/02/17 18:59 06:59 18:59 Intake Total 1036 225 Output Total 1200 550 Balance -164 -325 Intake: IV 550 0.9 550 Intake, IV Titration 225 Amount Sodium Chloride 0.9% 1, 225 000 ml @ 75 mls/hr IV . [id number] [facility] Rx#:[id number] Oral 486 Output: Urine 1200 550 Uretheral (Crockett) 800 Other: Voiding Method Indwelling Catheter Indwelling Catheter # Voids 1 - Labs CBC & Chem 7: 08/02/17 06:25 08/02/17 06:25 Labs: Abnormal Lab Results - Last 24 Hours (Table) 08/01/17 08/01/17 08/01/17 Range/Units 02:47 11:59 16:55 WBC (3.8-10.6) k/uL RBC (3.80-5.40) m/uL Hgb (11.4-16.0) gm/dL MCHC (31.0-37.0) g/dL Neutrophils # (1.3-7.7) k/uL Lymphocytes # (1.0-4.8) k/uL PT (9.0-12.0) sec INR (<1.2) BUN (7-17) mg/dL Creatinine (0.52-1.04) mg/dL Glucose (74-99) mg/dL POC Glucose (mg/dL) 181 H 179 H (75-99) mg/dL Iron 19 L (50-170) ug/dL Iron Saturation 7.25 L (12.00-45.00) 08/01/17 08/02/17 08/02/17 Range/Units 17:40 04:22 06:25 WBC 11.6 H (3.8-10.6) k/uL RBC 3.52 L (3.80-5.40) m/uL Hgb 10.6 L (11.4-16.0) gm/dL MCHC 30.4 L (31.0-37.0) g/dL Neutrophils # 9.9 H (1.3-7.7) k/uL Lymphocytes # 0.8 L (1.0-4.8) k/uL PT (9.0-12.0) sec INR (<1.2) BUN (7-17) mg/dL Creatinine (0.52-1.04) mg/dL Glucose (74-99) mg/dL POC Glucose (mg/dL) 160 H 139 H (75-99) mg/dL Iron (50-170) ug/dL Iron Saturation (12.00-45.00) 08/02/17 08/02/17 08/02/17 Range/Units 06:25 07:31 09:59 WBC (3.8-10.6) k/uL RBC (3.80-5.40) m/uL Hgb (11.4-16.0) gm/dL MCHC (31.0-37.0) g/dL Neutrophils # (1.3-7.7) k/uL Lymphocytes # (1.0-4.8) k/uL PT 16.2 H (9.0-12.0) sec INR 1.8 H (<1.2) BUN 31 H (7-17) mg/dL Creatinine 1.28 H (0.52-1.04) mg/dL Glucose 154 H (74-99) mg/dL POC Glucose (mg/dL) 166 H (75-99) mg/dL Iron (50-170) ug/dL Iron Saturation (12.00-45.00) Microbiology - Last 24 Hours (Table) 08/01/17 06:23 Urine Culture - Preliminary Urine,Catheterized Assessment and Plan Plan: Assessment: #1. Nonoliguric acute kidney injury secondary to ATN secondary to hemodynamic instability. Renal function improving with creatinine down to 1.28 today. Urine eosinophils negative. Urine culture also showing no growth. #2. Left hip fracture status post ORIF on 07/30/2017. #3. Anemia with iron deficiency noted. #4. A. fib maintained on Lopressor. Rate controlled. Plan: I will decrease the rate of normal saline to 50 mL an hour. Ferrlicit 125 mg IV daily for 3 days. First dose today. Avoid nephrotoxic agents and hypotensive episodes. Repeat electrolytes in the morning.
[2017-08-02] MEDS: SODIUM FERRIC GLUCONAT-SUCROSE 125 MG in SODIUM CHLORIDE 0.9% 100 ML IVPB SCH (11:18)
[2017-08-02] MEDS: SODIUM CHLORIDE 0.9% 1,000 ML IV SCH ×3 (12:00→20:43)
--- NOTE | 2017-08-02 13:53 | P.PN ---
Subjective Progress Note Date: 08/02/17 Mrs. Higuera is a see and examined today sitting up in the chair. She denies symptoms of chest pain, shortness of breath, palpitations, dizziness, nausea, vomiting or diaphoresis. She is post-operative day #3 for left hip fracture. She continues to be in atrial fibrillation with episodes of tachycardia 100- 128.she is currently taking lopressor 150 mg BID. INR 1.8 today. Objective - Vital Signs Vital signs: Vital Signs Temp 98.2 F 08/02/17 07:30 Pulse 98 08/02/17 09:00 Resp 16 08/02/17 07:30 BP 153/79 08/02/17 07:30 Pulse Ox 93 L 08/02/17 07:30 Intake & Output 08/01/17 08/02/17 08/02/17 18:59 06:59 18:59 Intake Total 1036 225 Output Total 1200 550 600 Balance -164 -325 -600 Intake: IV 550 0.9 550 Intake, IV Titration 225 Amount Sodium Chloride 0.9% 1, 225 000 ml @ 75 mls/hr IV . [id number] [facility] Rx#:[id number] Oral 486 Output: Urine 1200 550 600 Uretheral (Crockett) 800 600 Other: Voiding Method Indwelling Catheter Indwelling Catheter # Voids 1 - Exam Blood pressure 153/79 heart rate 104 afebrile GENERAL: Well-appearing, well-nourished and in no acute distress. NECK: Supple without JVD or thyromegaly. LUNGS: Breath sounds clear to auscultation bilaterally. Respiration equal and unlabored. No wheezes, rales or rhonchi. HEART: Irregular rate and rhythm with systolic murmur at the base, no rubs or gallops. S1 and S2 heard. EXTREMITIES: Normal range of motion, no edema. No clubbing or cyanosis. Peripheral pulses intact and strong. - Labs CBC & Chem 7: 08/02/17 06:25 08/02/17 06:25 Labs: Abnormal Lab Results - Last 24 Hours (Table) 08/01/17 08/01/17 08/01/17 Range/Units 02:47 16:55 17:40 WBC (3.8-10.6) k/uL RBC (3.80-5.40) m/uL Hgb (11.4-16.0) gm/dL MCHC (31.0-37.0) g/dL Neutrophils # (1.3-7.7) k/uL Lymphocytes # (1.0-4.8) k/uL PT (9.0-12.0) sec INR (<1.2) BUN (7-17) mg/dL Creatinine (0.52-1.04) mg/dL Glucose (74-99) mg/dL POC Glucose (mg/dL) 179 H 160 H (75-99) mg/dL Iron 19 L (50-170) ug/dL Iron Saturation 7.25 L (12.00-45.00) 08/02/17 08/02/17 08/02/17 Range/Units 04:22 06:25 06:25 WBC 11.6 H (3.8-10.6) k/uL RBC 3.52 L (3.80-5.40) m/uL Hgb 10.6 L (11.4-16.0) gm/dL MCHC 30.4 L (31.0-37.0) g/dL Neutrophils # 9.9 H (1.3-7.7) k/uL Lymphocytes # 0.8 L (1.0-4.8) k/uL PT (9.0-12.0) sec INR (<1.2) BUN 31 H (7-17) mg/dL Creatinine 1.28 H (0.52-1.04) mg/dL Glucose 154 H (74-99) mg/dL POC Glucose (mg/dL) 139 H (75-99) mg/dL Iron (50-170) ug/dL Iron Saturation (12.00-45.00) 08/02/17 08/02/17 08/02/17 Range/Units 07:31 09:59 11:10 WBC (3.8-10.6) k/uL RBC (3.80-5.40) m/uL Hgb (11.4-16.0) gm/dL MCHC (31.0-37.0) g/dL Neutrophils # (1.3-7.7) k/uL Lymphocytes # (1.0-4.8) k/uL PT 16.2 H (9.0-12.0) sec INR 1.8 H (<1.2) BUN (7-17) mg/dL Creatinine (0.52-1.04) mg/dL Glucose (74-99) mg/dL POC Glucose (mg/dL) 166 H 182 H (75-99) mg/dL Iron (50-170) ug/dL Iron Saturation (12.00-45.00) Microbiology - Last 24 Hours (Table) 08/01/17 06:23 Urine Culture - Preliminary Urine,Catheterized Assessment and Plan Assessment: ASSESSMENT 1. Left hip fracture s/p surgical intervention 2. 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 Hypertension 4. Diabetes mellitus 5. Dyslipidemia 6. History of prior myocardial infarction, most recent cardiac catheterization in March 2017 revealed normal coronary arteries. PLAN Continue with coumadin dosing per ortho/pharmacy with daily PT/INR monitoring. Increase beta roshni to 100 mg TID. Further recommendations to follow based upon clinical course. Nurse Practitioner note has been reviewed, I agree with a documented findings and plan of care. Patient was seen and examined.
[2017-08-02 17:14] LABS: Glucose,Whole Blood 200 mg/dL (75-99)
--- NOTE | 2017-08-02 17:17 | PN ---
PROGRESS NOTE DATE OF SERVICE: 08/02/2017 INTERVAL HISTORY: This 72-year-old woman was admitted with left femoral neck fracture, is being closely monitored. No chest pain. No palpitations. Patient also had persistent atrial fibrillation. The creatinine was found to be 1.28. Nephrology following the patient. IV fluids administered. No chest pain. No palpitations. No fever. EXAM: Alert and oriented times three. Pulse is 125, blood pressure 126/87, respiration 16, temperature 97.6, pulse ox 97% on room air. HEENT: Conjunctivae normal. Neck: No jugular venous distention. Cardiovascular: S1, S2 muffled. Respiratory: Breath sounds diminished in the bases. A few scattered rhonchi. No crackles. Abdomen is soft, nontender. Legs are status post surgery. Nervous system: No focal deficits. LAB STUDIES: WBC 11.2, hemoglobin 10.6. Creatinine is 1.28. UA shows WBC UTI. ASSESSMENT: 1. Status post left femoral neck fracture, left hip hemiarthroplasty. 2. Persistent atrial fibrillation on Coumadin. 3. Coumadin monitor. 4. Acute urinary tract infection. 5. Acute renal failure. 6. Obesity. 7. Hyperlipidemia. 8. Diabetes type 2. 9. Hyperkalemia secondary to renal failure. 10.Increased WBC. 11.History of cerebrovascular accident, transient ischemic attack. 12.Gait dysfunction. RECOMMENDATIONS AND DISCUSSION: Recommend to continue current medications and symptomatic treatment, management and continue with antibiotics. Continue with the rest of medications and continue IV fluids. Monitor creatinine closely. Guarded prognosis because of multiple complex medical issues. Further recommendations to follow. MMODL / IJN: [id number] /
[2017-08-02] MEDS: INSULIN ASPART 100 UNIT/ML 1 ML 10 ML VIAL SQ SCH ×2 (17:21→20:39)
[2017-08-02] MEDS ORDERED: HYDROmorphone 2 MG TAB PO PRN (17:26)
[2017-08-02] MEDS ORDERED: WARFARIN 5 MG TAB PO ONE (18:00)
[2017-08-02 20:05] LABS: Glucose,Whole Blood 123 mg/dL (75-99)
[2017-08-02] MEDS: SENNOSIDES-DOCUSATE SODIUM 1 EACH TAB PO SCH (20:40)
[2017-08-03] MEDS: HYDROcodone/APAP 7.5-325MG 1 EACH TAB PO PRN ×4 (02:09→22:04)
[2017-08-03 07:05] LABS: Glucose,Whole Blood 123 mg/dL (75-99)
[2017-08-03] MEDS: INSULIN ASPART 100 UNIT/ML 1 ML 10 ML VIAL SQ SCH ×4 (07:17→22:02)
[2017-08-03 07:26] LABS: Basophils % (A) 0 %; Eosinophils # (A) 0.3 k/uL (0-0.7); Eosinophils % (A) 3 %; HCT 32.7 % (34.0-46.0); HGB 10.2 gm/dL (11.4-16.0); Lymphocytes # (A) 0.8 k/uL (1.0-4.8); Lymphocytes % (A) 7 %; MCH 30.3 pg (25.0-35.0); MCV 97.7 fL (80.0-100.0); Mean Platelet Volume 7.4; Monocytes # (A) 0.4 k/uL (0-1.0); Monocytes % (A) 4 %; Neutrophils # (A) 9.6 k/uL (1.3-7.7); Neutrophils % (A) 84 %; Platelet Count 227 k/uL (150-450); RBC 3.35 m/uL (3.80-5.40); RDW 13.7 % (11.5-15.5); WBC 11.4 k/uL (3.8-10.6)
[2017-08-03] MEDS: IPRATROPIUM-ALBUTEROL 3 ML NEB INHALATION SCH ×3 (07:51→20:19)
[2017-08-03 07:54] LABS: Anion Gap 8 mmol/L; Blood Urea Nitrogen 30 mg/dL (7-17); Calcium 8.7 mg/dL (8.4-10.2); Carbon Dioxide 23 mmol/L (22-30); Chloride 109 mmol/L (98-107); Glucose 132 mg/dL (74-99); Potassium 4.5 mmol/L (3.5-5.1); Sodium 140 mmol/L (137-145)
[2017-08-03 08:06] VITALS: RESP 16
[2017-08-03] MEDS: METOPROLOL TARTRATE 50 MG TAB PO SCH ×3 (08:34→22:05)
[2017-08-03] MEDS: FAMOTIDINE 20 MG TAB PO SCH (08:34)
[2017-08-03] MEDS: cefTRIAXone IN SWFI 1,000 MG/10 ML SYRINGE IVP SCH (08:34)
[2017-08-03] MEDS: ATORVASTATIN 10 MG TAB PO SCH (08:34)
[2017-08-03] MEDS: SODIUM FERRIC GLUCONAT-SUCROSE 125 MG in SODIUM CHLORIDE 0.9% 100 ML IVPB SCH (08:40)
[2017-08-03] MEDS: SODIUM CHLORIDE 0.9% 1,000 ML IV SCH ×2 (10:27→23:11)
[2017-08-03] MEDS: VERAPAMIL 40 MG TAB PO SCH ×3 (10:27→23:09)
[2017-08-03 11:07] LABS: INR 2.4 (<1.2); Prothrombin Time 21.4 sec (9.0-12.0)
[2017-08-03 11:54] LABS: Glucose,Whole Blood 190 mg/dL (75-99)
--- NOTE | 2017-08-03 13:00 | P.PN ---
Subjective Patient is seen in follow-up for acute kidney injury. Her baseline creatinine is 1 and peaked at 1.7 this admission. It is down to 1.04 today. Patient sustained a fall and a left hip fracture for which she underwent open reduction internal fixation on July 30. Currently she is resting in bed. Oral intake is good. She is maintained on normal saline at 50 mL an hour. No vomiting or diarrhea. Denies chest pain or shortness of breath. Vital signs are stable. General: The patient appeared well nourished and normally developed. HEENT: Head exam is unremarkable. Neck is without jugular venous distension. LUNGS: Lungs are clear to auscultation and percussion. Breath sounds decreased. HEART: Rate and Rhythm are regular. First and second heart sounds normal. No murmurs, rubs or gallops. ABDOMEN: Abdominal exam reveals normal bowel sounds. Non-tender and non- distended. No evidence of peritonitis. EXTREMITITES: No clubbing, cyanosis, or edema. Objective - Vital Signs Vital signs: Vital Signs Temp 96.1 F L 08/03/17 08:05 Pulse 103 H 08/03/17 08:05 Resp 16 08/03/17 08:05 BP 146/85 08/03/17 08:05 Pulse Ox 97 08/03/17 08:05 Intake & Output 08/02/17 08/03/17 08/03/17 18:59 06:59 18:59 Intake Total 600 400 360 Output Total 600 200 Balance 0 200 360 Intake: IV 600 0.9 600 Intake, IV Titration 400 Amount Sodium Chloride 0.9% 1, 400 000 ml @ 50 mls/hr IV . Q20H [facility] Rx#:[id number] Oral 360 Output: Urine 600 200 Uretheral (Crockett) 600 Other: Voiding Method Bedside Commode Bedside Commode - Labs CBC & Chem 7: 08/03/17 07:05 08/03/17 07:05 Labs: Abnormal Lab Results - Last 24 Hours (Table) 08/02/17 08/02/17 08/03/17 Range/Units 17:10 20:00 06:55 WBC (3.8-10.6) k/uL RBC (3.80-5.40) m/uL Hgb (11.4-16.0) gm/dL Hct (34.0-46.0) % Neutrophils # (1.3-7.7) k/uL Lymphocytes # (1.0-4.8) k/uL PT (9.0-12.0) sec INR (<1.2) Chloride (98-107) mmol/L BUN (7-17) mg/dL Glucose (74-99) mg/dL POC Glucose (mg/dL) 200 H 123 H 123 H (75-99) mg/dL 08/03/17 08/03/17 08/03/17 Range/Units 07:05 07:05 10:21 WBC 11.4 H (3.8-10.6) k/uL RBC 3.35 L (3.80-5.40) m/uL Hgb 10.2 L (11.4-16.0) gm/dL Hct 32.7 L (34.0-46.0) % Neutrophils # 9.6 H (1.3-7.7) k/uL Lymphocytes # 0.8 L (1.0-4.8) k/uL PT 21.4 H (9.0-12.0) sec INR 2.4 H (<1.2) Chloride 109 H (98-107) mmol/L BUN 30 H (7-17) mg/dL Glucose 132 H (74-99) mg/dL POC Glucose (mg/dL) (75-99) mg/dL 08/03/17 Range/Units 11:41 WBC (3.8-10.6) k/uL RBC (3.80-5.40) m/uL Hgb (11.4-16.0) gm/dL Hct (34.0-46.0) % Neutrophils # (1.3-7.7) k/uL Lymphocytes # (1.0-4.8) k/uL PT (9.0-12.0) sec INR (<1.2) Chloride (98-107) mmol/L BUN (7-17) mg/dL Glucose (74-99) mg/dL POC Glucose (mg/dL) 190 H (75-99) mg/dL Microbiology - Last 24 Hours (Table) 08/01/17 15:30 Blood Culture - Preliminary Blood No Growth after 24 hours 08/01/17 06:23 Urine Culture - Final Urine,Catheterized Assessment and Plan Plan: Assessment: #1. Nonoliguric acute kidney injury secondary to ATN secondary to hemodynamic instability. Renal function improving with creatinine down to 1.04 today. Urine eosinophils negative. Urine culture also showing no growth. #2. Left hip fracture status post ORIF on 07/30/2017. #3. Anemia with iron deficiency noted. #4. A. fib maintained on Lopressor. Rate controlled. Plan: Hep-Lock IV fluids. Ferrlicit 125 mg IV daily for 3 days. Second dose today. Avoid nephrotoxic agents and hypotensive episodes. Repeat electrolytes in the morning. Stable to be discharged home from nephrology standpoint. She will need to follow-up as an outpatient in the next 2 weeks.
--- NOTE | 2017-08-03 13:02 | P.PN ---
Subjective Progress Note Date: 08/03/17 Principal diagnosis: Status post left hip hemiarthroplasty Patient seen today resting in her hospital bed, she appears comfortable. She continues to work with therapy. She is being followed by multiple medical specialists at this time. She denies any headaches, lightheadedness or chest pain. Objective - Vital Signs Vital signs: Vital Signs Temp 96.1 F L 08/03/17 08:05 Pulse 103 H 08/03/17 08:05 Resp 16 08/03/17 08:05 BP 146/85 08/03/17 08:05 Pulse Ox 97 08/03/17 08:05 Intake & Output 08/02/17 08/03/17 08/03/17 18:59 06:59 18:59 Intake Total 600 400 360 Output Total 600 200 Balance 0 200 360 Intake: IV 600 0.9 600 Intake, IV Titration 400 Amount Sodium Chloride 0.9% 1, 400 000 ml @ 50 mls/hr IV . Q20H KALPESH Rx#:[id number] Oral 360 Output: Urine 600 200 Uretheral (Crockett) 600 Other: Voiding Method Bedside Commode Bedside Commode - Exam Left lower extremity: Incision is clean, dry, and intact. The prineo tape is in good condition. There is minimal soft tissue swelling and ecchymosis surrounding the medial and lateral aspects of the incision. Calf is soft, no tenderness with palpation. Plantar flexion, dorsiflexion, EHL, FHL are intact. Sensory exam to light touch throughout the extremity is intact, dorsal pedis pulses 2+. - Labs CBC & Chem 7: 08/03/17 07:05 08/03/17 07:05 Labs: Abnormal Lab Results - Last 24 Hours (Table) 08/02/17 08/02/17 08/03/17 Range/Units 17:10 20:00 06:55 WBC (3.8-10.6) k/uL RBC (3.80-5.40) m/uL Hgb (11.4-16.0) gm/dL Hct (34.0-46.0) % Neutrophils # (1.3-7.7) k/uL Lymphocytes # (1.0-4.8) k/uL PT (9.0-12.0) sec INR (<1.2) Chloride (98-107) mmol/L BUN (7-17) mg/dL Glucose (74-99) mg/dL POC Glucose (mg/dL) 200 H 123 H 123 H (75-99) mg/dL 08/03/17 08/03/17 08/03/17 Range/Units 07:05 07:05 10:21 WBC 11.4 H (3.8-10.6) k/uL RBC 3.35 L (3.80-5.40) m/uL Hgb 10.2 L (11.4-16.0) gm/dL Hct 32.7 L (34.0-46.0) % Neutrophils # 9.6 H (1.3-7.7) k/uL Lymphocytes # 0.8 L (1.0-4.8) k/uL PT 21.4 H (9.0-12.0) sec INR 2.4 H (<1.2) Chloride 109 H (98-107) mmol/L BUN 30 H (7-17) mg/dL Glucose 132 H (74-99) mg/dL POC Glucose (mg/dL) (75-99) mg/dL 08/03/17 Range/Units 11:41 WBC (3.8-10.6) k/uL RBC (3.80-5.40) m/uL Hgb (11.4-16.0) gm/dL Hct (34.0-46.0) % Neutrophils # (1.3-7.7) k/uL Lymphocytes # (1.0-4.8) k/uL PT (9.0-12.0) sec INR (<1.2) Chloride (98-107) mmol/L BUN (7-17) mg/dL Glucose (74-99) mg/dL POC Glucose (mg/dL) 190 H (75-99) mg/dL Microbiology - Last 24 Hours (Table) 08/01/17 15:30 Blood Culture - Preliminary Blood No Growth after 24 hours 08/01/17 06:23 Urine Culture - Final Urine,Catheterized Assessment and Plan Plan: Assessment: 1. Postop day #4 status post left hip hemiarthroplasty Plan: Pain control, continue use of oral medication Continue working with physical therapy GI and DVT prophylaxis, continue Coumadin Daily dressing changes On an orthopedic standpoint, the patient is stable for discharge to rehab Await recommendations from other medical specialties for a clearance to discharge Time with Patient: Less than 30
--- NOTE | 2017-08-03 13:36 | P.PN ---
Subjective Progress Note Date: 08/03/17 Mrs. Higuera is a see and examined today resting comfortably in bed. She denies symptoms of chest pain, shortness of breath, palpitations, dizziness, nausea, vomiting or diaphoresis. She is post-operative day #4 for left hip fracture. She continues to be in atrial fibrillation with episodes of tachycardia 100-128 despite increase in beta roshni yesterday. INR 2.4, WBC 11.4, hemoglobin 10.2, platelets 227, potassium 4.5, creatinine 1.04. Objective - Vital Signs Vital signs: Vital Signs Temp 96.1 F L 08/03/17 08:05 Pulse 103 H 08/03/17 08:05 Resp 16 08/03/17 08:05 BP 146/85 08/03/17 08:05 Pulse Ox 97 08/03/17 08:05 Intake & Output 08/02/17 08/03/17 08/03/17 18:59 06:59 18:59 Intake Total 600 400 360 Output Total 600 200 Balance 0 200 360 Intake: IV 600 0.9 600 Intake, IV Titration 400 Amount Sodium Chloride 0.9% 1, 400 000 ml @ 50 mls/hr IV . Q20H [facility]PES[facility] Rx#:[id number] Oral 360 Output: Urine 600 200 Uretheral (Crockett) 600 Other: Voiding Method Bedside Commode Bedside Commode - Exam Blood pressure 146/85 heart rate 103 afebrile. GENERAL: Well-appearing, well-nourished and in no acute distress. NECK: Supple without JVD or thyromegaly. LUNGS: Breath sounds clear to auscultation bilaterally. Respiration equal and unlabored. No wheezes, rales or rhonchi. HEART: Irregular rate and rhythm with systolic murmur at the base, no rubs or gallops. S1 and S2 heard. EXTREMITIES: Normal range of motion, trace nonpitting edema left lower extremity , no edema right lower extremity. No clubbing or cyanosis. Peripheral pulses intact. - Labs CBC & Chem 7: 08/03/17 07:05 08/03/17 07:05 Labs: Abnormal Lab Results - Last 24 Hours (Table) 08/02/17 08/02/17 08/03/17 Range/Units 17:10 20:00 06:55 WBC (3.8-10.6) k/uL RBC (3.80-5.40) m/uL Hgb (11.4-16.0) gm/dL Hct (34.0-46.0) % Neutrophils # (1.3-7.7) k/uL Lymphocytes # (1.0-4.8) k/uL PT (9.0-12.0) sec INR (<1.2) Chloride (98-107) mmol/L BUN (7-17) mg/dL Glucose (74-99) mg/dL POC Glucose (mg/dL) 200 H 123 H 123 H (75-99) mg/dL 08/03/17 08/03/17 08/03/17 Range/Units 07:05 07:05 10:21 WBC 11.4 H (3.8-10.6) k/uL RBC 3.35 L (3.80-5.40) m/uL Hgb 10.2 L (11.4-16.0) gm/dL Hct 32.7 L (34.0-46.0) % Neutrophils # 9.6 H (1.3-7.7) k/uL Lymphocytes # 0.8 L (1.0-4.8) k/uL PT 21.4 H (9.0-12.0) sec INR 2.4 H (<1.2) Chloride 109 H (98-107) mmol/L BUN 30 H (7-17) mg/dL Glucose 132 H (74-99) mg/dL POC Glucose (mg/dL) (75-99) mg/dL 08/03/17 Range/Units 11:41 WBC (3.8-10.6) k/uL RBC (3.80-5.40) m/uL Hgb (11.4-16.0) gm/dL Hct (34.0-46.0) % Neutrophils # (1.3-7.7) k/uL Lymphocytes # (1.0-4.8) k/uL PT (9.0-12.0) sec INR (<1.2) Chloride (98-107) mmol/L BUN (7-17) mg/dL Glucose (74-99) mg/dL POC Glucose (mg/dL) 190 H (75-99) mg/dL Microbiology - Last 24 Hours (Table) 02/18/18 15:30 Blood Culture - Preliminary Blood No Growth after 24 hours 08/01/17 06:23 Urine Culture - Final Urine,Catheterized Assessment and Plan Assessment: ASSESSMENT 1. Left hip fracture s/p surgical intervention 2. 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 Hypertension 4. Diabetes mellitus 5. Dyslipidemia 6. History of prior myocardial infarction, most recent cardiac catheterization in March 2017 revealed normal coronary arteries. PLAN Add verapamil 40 mg TID to daily regimen for better control of her heart rate. Continue metoprolol 100 mg TID. Stable from a cardiac perspective for transfer to rehab facility. Follow up with Dr. Montana in 2-3 weeks. Nurse Practitioner note has been reviewed, I agree with a documented findings and plan of care. Patient was seen and examined.
[2017-08-03 13:59] VITALS: BMI 41.7
--- NOTE | 2017-08-03 16:00 | PN ---
PROGRESS NOTE DATE OF SERVICE: 08/03/2017 This 72-year-old woman who was admitted after a left femoral neck fracture is being closely monitored at this time. The patient has persistent atrial fibrillation. ECF rehab is also being explored. No chest pain. No palpitation. On exam, alert and oriented x2. Pulse 88, blood pressure 120/69, respirations 16, temperature 98.0, pulse ox 92% on 3 L. HEENT: Conjunctivae normal. NECK: No jugular venous distention. CARDIOVASCULAR SYSTEM: S1, S2 muffled. RESPIRATORY SYSTEM: Breath sounds diminished at the bases. A few scattered rhonchi and crackles. Abdomen is soft, nontender. LEGS: No edema. No swelling. NERVOUS SYSTEM: No focal deficit. LABS: WBC 11.4, hemoglobin 10.2. ASSESSMENT: 1. Status post left femoral neck fracture and left hip hemiarthroplasty. 2. Persistent atrial fibrillation, on Coumadin. 3. Coumadin monitoring. 4. Acute urinary tract infection. 5. Acute renal failure. 6. Obesity. 7. Hyperlipidemia. 8. Diabetes mellitus, type 2. 9. Hyperkalemia secondary to renal failure. 10.Increased white count. 11.History of cerebrovascular accident, transient ischemic attack. 12.Gait dysfunction. RECOMMENDATIONS AND DISCUSSION: I recommend to continue current medication, continue with symptomatic treatment. Otherwise at this time I would recommend incentive spirometry, DVT prophylaxis and possible ECF rehab. Further recommendations to follow. CASSY / BRITTANY: [id number] /
[2017-08-03 16:51] LABS: Glucose,Whole Blood 136 mg/dL (75-99)
[2017-08-03] MEDS ORDERED: WARFARIN 2.5 MG TAB PO ONE (18:00)
[2017-08-03 21:16] LABS: Glucose,Whole Blood 171 mg/dL (75-99)
[2017-08-03] MEDS: SENNOSIDES-DOCUSATE SODIUM 1 EACH TAB PO SCH (22:04)
[2017-08-04 06:56] LABS: Glucose,Whole Blood 110 mg/dL (75-99)
[2017-08-04] MEDS: IPRATROPIUM-ALBUTEROL 3 ML NEB INHALATION SCH ×2 (07:24→12:15)
[2017-08-04] MEDS: SODIUM CHLORIDE 0.9% 1,000 ML IV SCH (07:59)
[2017-08-04] MEDS: INSULIN ASPART 100 UNIT/ML 1 ML 10 ML VIAL SQ SCH ×2 (08:00→12:15)
[2017-08-04 08:12] LABS: Calcium 8.8 mg/dL (8.4-10.2); Potassium 4.2 mmol/L (3.5-5.1)
[2017-08-04 08:22] VITALS: BP 125/74; TEMP 97.5
[2017-08-04 08:22] LABS: Basophils % (A) 0 %; Eosinophils # (A) 0.5 k/uL (0-0.7); Eosinophils % (A) 6 %; HCT 33.6 % (34.0-46.0); HGB 10.2 gm/dL (11.4-16.0); Hypochromasia Slight; Lymphocytes % (A) 12 %; MCHC 30.4 g/dL (31.0-37.0); MCV 98.7 fL (80.0-100.0); Mean Platelet Volume 7.4; Monocytes # (A) 0.5 k/uL (0-1.0); Monocytes % (A) 6 %; Neutrophils # (A) 6.4 k/uL (1.3-7.7); Neutrophils % (A) 75 %; Platelet Count 238 k/uL (150-450); RDW 14.1 % (11.5-15.5); WBC 8.6 k/uL (3.8-10.6)
[2017-08-04 08:24] LABS: INR 2.8 (<1.2)
[2017-08-04] MEDS: cefTRIAXone IN SWFI 1,000 MG/10 ML SYRINGE IVP SCH (08:44)
[2017-08-04] MEDS: ATORVASTATIN 10 MG TAB PO SCH (08:45)
[2017-08-04] MEDS: FAMOTIDINE 20 MG TAB PO SCH (08:45)
[2017-08-04] MEDS: METOPROLOL TARTRATE 50 MG TAB PO SCH (08:45)
[2017-08-04] MEDS: VERAPAMIL 40 MG TAB PO SCH (08:45)
[2017-08-04] MEDS: HYDROcodone/APAP 7.5-325MG 1 EACH TAB PO PRN (08:54)
[2017-08-04] MEDS: SODIUM FERRIC GLUCONAT-SUCROSE 125 MG in SODIUM CHLORIDE 0.9% 100 ML IVPB SCH (09:15)
--- NOTE | 2017-08-04 11:48 | P.PN ---
Subjective Patient is seen in follow-up for acute kidney injury. Her baseline creatinine is 1 and peaked at 1.7 this admission. It is 1.13 today. Patient sustained a fall and a left hip fracture for which she underwent open reduction internal fixation on July 30. Currently she is resting in bed. Oral intake is good. She is off all IV fluids. No vomiting or diarrhea. Denies chest pain or shortness of breath. Vital signs are stable. General: The patient appeared well nourished and normally developed. HEENT: Head exam is unremarkable. Neck is without jugular venous distension. LUNGS: Lungs are clear to auscultation and percussion. Breath sounds decreased. HEART: Rate and Rhythm are regular. First and second heart sounds normal. No murmurs, rubs or gallops. ABDOMEN: Abdominal exam reveals normal bowel sounds. Non-tender and non- distended. No evidence of peritonitis. EXTREMITITES: No clubbing, cyanosis, or edema. Objective - Vital Signs Vital signs: Vital Signs Temp 97.5 F L 08/04/17 07:00 Pulse 92 08/04/17 07:35 Resp 16 08/04/17 07:00 BP 125/74 08/04/17 07:00 Pulse Ox 95 08/04/17 07:25 Intake & Output 08/03/17 08/04/17 08/04/17 18:59 06:59 18:59 Intake Total 1740 460 Balance 1740 460 Weight 124.5 kg Intake: IV 400 60 0.9 400 60 Intake, IV Titration 400 Amount Sodium Chloride 0.9% 1, 400 000 ml @ 50 mls/hr IV . Q20H [facility] Rx#:[id number] Oral 1340 Other: Voiding Method Bedside Commode Bedside Commode Bedside Commode - Labs CBC & Chem 7: 08/04/17 07:29 08/04/17 07:29 Labs: Abnormal Lab Results - Last 24 Hours (Table) 08/03/17 08/03/17 08/03/17 Range/Units 11:41 16:49 21:07 RBC (3.80-5.40) m/uL Hgb (11.4-16.0) gm/dL Hct (34.0-46.0) % MCHC (31.0-37.0) g/dL PT (9.0-12.0) sec INR (<1.2) Chloride (98-107) mmol/L BUN (7-17) mg/dL Creatinine (0.52-1.04) mg/dL Glucose (74-99) mg/dL POC Glucose (mg/dL) 190 H 136 H 171 H (75-99) mg/dL 08/04/17 08/04/17 08/04/17 Range/Units 06:53 07:29 07:29 RBC 3.40 L (3.80-5.40) m/uL Hgb 10.2 L (11.4-16.0) gm/dL Hct 33.6 L (34.0-46.0) % MCHC 30.4 L (31.0-37.0) g/dL PT (9.0-12.0) sec INR (<1.2) Chloride 109 H (98-107) mmol/L BUN 27 H (7-17) mg/dL Creatinine 1.13 H (0.52-1.04) mg/dL Glucose 115 H (74-99) mg/dL POC Glucose (mg/dL) 110 H (75-99) mg/dL 08/04/17 Range/Units 07:29 RBC (3.80-5.40) m/uL Hgb (11.4-16.0) gm/dL Hct (34.0-46.0) % MCHC (31.0-37.0) g/dL PT 25.0 H (9.0-12.0) sec INR 2.8 H (<1.2) Chloride (98-107) mmol/L BUN (7-17) mg/dL Creatinine (0.52-1.04) mg/dL Glucose (74-99) mg/dL POC Glucose (mg/dL) (75-99) mg/dL Microbiology - Last 24 Hours (Table) 08/01/17 15:30 Blood Culture - Preliminary Blood No Growth after 48 hours Assessment and Plan Plan: Assessment: #1. Nonoliguric acute kidney injury secondary to ATN secondary to hemodynamic instability. Renal function relatively stable with creatinine of 1.13 today. Urine eosinophils negative. Urine culture also showing no growth. #2. Left hip fracture status post ORIF on 07/30/2017. #3. Anemia with iron deficiency noted. #4. A. fib maintained on Lopressor. Rate controlled. Plan: Hep-Lock IV fluids. Encouraged oral intake. Ferrlicit 125 mg IV daily for 3 days. Third dose today. Avoid nephrotoxic agents and hypotensive episodes. Repeat electrolytes in the morning. Stable to be discharged home from nephrology standpoint. She will need to follow-up as an outpatient in the next 2 weeks.
[2017-08-04 12:05] LABS: Glucose,Whole Blood 125 mg/dL (75-99)
[2017-08-04 12:18] VITALS: PULSE 90
--- NOTE | 2017-08-04 13:07 | CDI ---
Last Revision, May 2017 Documentation Clarification Form Date: 08/04/2017 12:24:00 PM From: Philly Guzmán Admit Date: 07/27/2017 2:59:00 PM Patient Name: Carli Higuera Visit Number: [id number] Discharge Date: ATTENTION: The Clinical Documentation Specialists (CDI) and [facility] Coding Staff appreciate your assistance in clarifying documentation. Please respond to the clarification below the line at the bottom and electronically sign. The CDI & [facility] Coding staff will review the response and follow-up if needed. Please note: Queries are made part of the Legal Health Record. If you have any questions, please contact the author of this message via ITS. Dr. Zia Torres A diagnosis of UTI has been documented in your progress notes 08/02/17-08/03/17 History/Risk factors: Left Hip Fracture after fall, Chronic persistent atrial fibrillation, Obesity, Diabetes type 2, CVA, Per documentation in the Emergency Department: Urinary catheter insertion date 07/27/17 due to immobilization/retention, (fall at home with left hip fracture) 07/27/17 admission UA: Ur: Leukocyte Esterase Negative Urine culture no growth Urine lab report on 07/31/17 Urinalysis: Moderate urine blood, Ur Leukocyte Esterase Large, Urine WBC 84, Urine Nitrite Negative; Urine culture: No growth Admission Lab results: WBC 12.7, CR 1.03 Treatment: Monitor labs, Rocephin IV Urinary catheter discontinued 08/02/17 Monitor I/O In your professional opinion, can you please clarify the etiology of the UTI, if known? Crockett catheter related UTI UTI not related to catheter Other condition, please specify Unable to determine Please continue to document in your progress notes and discharge summary in order to capture severity of illness and risk of mortality. Include clinical findings that support your diagnosis. Crockett catheter related UTI MTDD
[2017-08-04] MEDS ORDERED: WARFARIN 2.5 MG TAB PO ONE (18:00)
--- NOTE | 2017-08-05 00:16 | PN ---
PROGRESS NOTE DATE OF SERVICE: 08/04/2017 This 72-year-old woman was admitted after left femoral neck fracture, also has persistent atrial fibrillation and multiple other complex medical issues. The patient is being admitted into a rehab facility at this time. The patient has possibly UTI and Crockett catheter. No chest pain. No palpitation. No fever. On exam, alert and oriented x2. Pulse 99, blood pressure 120/74, respirations 16 , temperature 97.4, pulse ox 92% on room air. HEENT: Conjunctivae normal. NECK: No jugular venous distention. CARDIOVASCULAR SYSTEM: S1, S2 muffled. RESPIRATORY SYSTEM: Breath sounds diminished at the bases. A few scattered rhonchi and crackles. Abdomen is soft, nontender. LEGS: No edema. No swelling. NERVOUS SYSTEM: No focal deficit. LABS: WBC 8.3, hemoglobin 10.2. INR is 1.2. 0.8. ASSESSMENT: 1. Status post left femoral neck fracture and left hip hemiarthroplasty. 2. Persistent atrial fibrillation, on Coumadin. 3. Coumadin monitoring. 4. Acute urinary tract infection secondary to Crockett catheter. 5. Acute renal failure. 6. Obesity. 7. Hyperlipidemia. 8. Diabetes mellitus, type 2. 9. Hyperkalemia secondary to renal failure. 10.Increased white count. 11.History of cerebrovascular accident, transient ischemic attack. 12.Gait dysfunction. RECOMMENDATIONS AND DISCUSSION: I recommend to continue current medication, continue with symptomatic treatment, otherwise closely monitor. medications per Orthopedic Surgery. Further recommendations to follow. CASSY / LEEANNN: [id number] / JOSELINE
== END 2017-08-04 15:19 | DRG 469 ==
LOC: EC 13:11 → 6SEL 14:59 → 3SUR 08-01 17:22
PROVIDERS: ADMIT Orthopaedic Surgery; ATTEND Orthopaedic Surgery
PROC: 0SRS0JA Replacement of Left Hip Joint, Femoral Surface with Synthetic Substitute, Uncemented, Open Approach (ICD-10-PCS; principal; 2017-07-27)
DX: S72.002A Fracture of unspecified part of neck of left femur, initial encounter for closed fracture (principal); N17.0 Acute kidney failure with tubular necrosis; I48.1 Persistent atrial fibrillation; I48.92 Unspecified atrial flutter; N39.0 Urinary tract infection, site not specified; T83.511A Infection and inflammatory reaction due to indwelling urethral catheter, initial encounter; E87.5 Hyperkalemia; I27.20 Pulmonary hypertension, unspecified; E11.9 Type 2 diabetes mellitus without complications; D50.9 Iron deficiency anemia, unspecified; E66.9 Obesity, unspecified; E78.5 Hyperlipidemia, unspecified; I10 Essential (primary) hypertension; I25.2 Old myocardial infarction; I34.0 Nonrheumatic mitral (valve) insufficiency; I48.2 Chronic atrial fibrillation; R79.1 Abnormal coagulation profile; W01.0XXA Fall on same level from slipping, tripping and stumbling without subsequent striking against object, initial encounter; Y84.6 Urinary catheterization as the cause of abnormal reaction of the patient, or of later complication, without mention of misadventure at the time of the procedure; Y92.009 Unspecified place in unspecified non-institutional (private) residence as the place of occurrence of the external cause; Z79.01 Long term (current) use of anticoagulants; Z79.899 Other long term (current) drug therapy; Z86.73 Personal history of transient ischemic attack (TIA), and cerebral infarction without residual deficits; Z87.891 Personal history of nicotine dependence; Y92.239 Unspecified place in hospital as the place of occurrence of the external cause
CPT/HCPCS: 36415; 51702; 71045; 73501; 73502; 80048; 80053; 81001; 81003; 82550; 82553; 83036; 83540; 83550; 83735; 84100; 84132; 84443; 84484; 85025; 85027; 85610; 85730; 86850; 86900; 86901; 87040; 87086; 87205; 88305; 88311; 93005; 93306; 94640; 94660; 94760; 96365; 96366; 96375; 96376; 99285

== ENCOUNTER 2018-08-30 13:46 | Inpatient (IN) | payer MEDICARE, OTHER ==
[2018-08-30] MEDS ORDERED: SODIUM CHLORIDE 0.9% 500 ML 500 ML IV ONE (14:05)
--- NOTE | 2018-08-30 14:15 | ED ---
Female Urogenital HPI <Yasmani Rea - Last Filed: 08/30/18 16:36> - General Source: family Mode of arrival: ambulatory Limitations: no limitations <Nilda Martinez - Last Filed: 08/30/18 17:10> - General Chief complaint: Vaginal Bleeding Stated complaint: Vaginal bleed Time Seen by Provider: 08/30/18 14:04 - History of Present Illness Initial comments: 73-year-old female with past medical history of atrial fibrillation, previous CVA as well as myocardial infarction on Coumadin with no INR checked since March 2018, or recent cardiology follow-up presenting today for chief complaint of vaginal bleeding. Patient states she has had on and off vaginal bleeding since late January early February. She states it used to occur for 1 day a week, every couple of weeks. She states however for the past 3-4 days she has had persistent bleeding, she states it is likely better than a typical period. She states it is bright red to dark red in color. Patient states she is positive this is not coming from the rectum. Patient states she does have some mild lower abdominal discomfort. She states when bleeding persisted she decided she better presented for evaluation at the emergency department. Re maining review of systems negative, patient denies any recent fever, chills, shortness of breath, dyspnea on exertion, cold intolerance, syncope, chest pain, back pain, abdominal pain, nausea or vomiting, epigastric pain, indigestion, muscle weakness, numbness or tingling, dysuria or hematuria, constipation or diarrhea, dizziness, headaches or visual changes, or any other complaints. Upon arrival pt HR and BP elevated. EKG obtained at 15:25. (Nilda Martinez) - Related Data Home Medications Medication Instructions Recorded Confirmed Warfarin [Coumadin] 5 mg PO SUMO 03/18/17 08/30/18 Warfarin Sodium 2.5 mg PO [id number] 08/30/18 08/30/18 Previous Rx's Medication Instructions Recorded Metoprolol Tartrate [Lopressor] 100 mg PO TID tab 08/03/17 Allergies Allergy/AdvReac Type Severity Reaction Status Date / Time No Known Allergies Allergy Verified 08/30/18 14:20 Review of Systems ROS Other: All systems not noted in ROS Statement are negative. <Yasmani Rea - Last Filed: 08/30/18 16:36> ROS Other: All systems not noted in ROS Statement are negative. <Nilda Martinez - Last Filed: 08/30/18 17:10> ROS Statement: Those systems with pertinent positive or pertinent negative responses have been documented in the HPI. Past Medical History Past Medical History: Atrial Fibrillation, CVA/TIA, Hyperlipidemia, Myocardial Infarction ([place]) Additional Past Medical History / Comment(s): 07/27/17 FALL'LT HIP FX. 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 Last Myocardial Infarction Date:: 2009 History of Any Multi-Drug Resistant Organisms: None Reported Past Surgical History: Heart Catheterization, Orthopedic Surgery, Tonsillectomy Additional Past Surgical History / Comment(s): ORIF RT ANKLE HAS PLATE. Past Anesthesia/Blood Transfusion Reactions: No Reported Reaction Past Psychological History: No Psychological Hx Reported Smoking Status: Former smoker Past Alcohol Use History: None Reported Past Drug Use History: None Reported - Past Family History Mother Family Medical History: No Reported History Additional Family Medical History / Comment(s): FROM ANUERYSM Father Family Medical History: No Reported History <Nilda Martinez - Last Filed: 08/30/18 17:10> General Exam Limitations: no limitations <Nilda Martinez - Last Filed: 08/30/18 17:10> - General Exam Comments Initial Comments: General: The patient is awake and alert, in no distress. Eye: +3 mm pupils are equal, round and reactive to light, extra-ocular movements are intact. No nystagmus. There is normal conjunctiva bilaterally. No signs of icterus. Ears, nose, mouth and throat: There are moist mucous membranes and no oral lesions. Neck: The neck is supple, there is no tenderness or JVD. Cardiovascular: There is an irregular rhythm, elevated rate. No murmur, rub or gallop is appreciated. Respiratory: Lungs are clear to auscultation, respirations are non-labored, breath sounds are equal. No wheezes, stridor, rales, or rhonchi. Gastrointestinal: No noted diaphoresis, jaundice, pallor, protecting postures or squirming. Symmetrical pigmentation of abdomen without signs of inflammation. Umbilicus mildline, inverted without swelling. No dilated veins. Abdomen contour obese, no noted abdominal distention. No visible masses. No peristalsis, aortic pulsations, or ventral hernia. Bowel sounds audible in all 4 quadrants, unremarkable. Mild tenderness per patient of the lower mid pelvic region/superior bladder margin. Liver edge, not palpable. Spleen edge, right and left kidney not palpable. Superior bladder margin non-tender. Special Testing: Negative [place], Rovsing, McBurney, Nickolas, cutaneous hyperesthesia. Negative Heel Jar test. No CVA tenderness. Digital rectal exam no anneliese blood, normal tone. Negative lane turners or cullens sign Pelvic exam, vaginal mucosa dry, blood in vault, cervix os poorly visualized, no cervical motion tenderness or discharge. No adnexal tenderness. Musculoskeletal: Normal ROM, no tenderness. Strength 5/5. Sensation intact. Radial and DP pulses equal bilaterally 2+. Neurological: A&O x 3. CN II-XII intact, There are no obvious motor or sensory deficits. Coordination appears grossly intact. Speech is normal. Skin: Skin is warm and dry and no rashes or lesions are noted. Psychiatric: Cooperative, appropriate mood & affect, normal judgment. (Nilda Martinez) Course <Nilda Martinez - Last Filed: 08/30/18 17:10> Vital Signs 08/30/18 08/30/18 08/30/18 13:53 15:00 16:00 Temperature 98 F Pulse Rate 144 H 155 H 124 H Respiratory 18 22 22 Rate Blood Pressure 139/110 126/56 119/88 O2 Sat by Pulse 94 L 99 95 Oximetry 08/30/18 16:30 Temperature Pulse Rate 127 H Respiratory 18 Rate Blood Pressure 110/87 O2 Sat by Pulse 95 Oximetry - Reevaluation(s) Reevaluation #1: 08/30/18 (Nilda Martinez) Medical Decision Making - Lab Data Result diagrams: 08/30/18 14:30 08/30/18 14:30 <Yasmani Rea - Last Filed: 08/30/18 16:36> - Lab Data Result diagrams: 08/30/18 14:30 08/30/18 14:30 <Nilda Martinez - Last Filed: 08/30/18 17:10> - Medical Decision Making Patient reevaluated and updated. Patient remains tachycardic. Cardizem drip will be increased. Patient is updated on results and plan. Case was discussed in detail with Dr. Sanabria, who will admit covering for Dr. Maddox. 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 (Yasmani Rea) Patient presenting for vaginal bleeding. Patient post menopause. Patient heart rate 155 upon arrival, EKG obtained revealed atrial fibrillation with rapid ventricular response. Patient has known atrial fibrillation. Patient bolused with Cardizem placed on 5mg drip will titrate as needed. BP stable, no hypotension. Upon reviewing laboratory studies hemoglobin stable.INR is subtherapeutic.BUN mildly elevated. Cr near baseline. Occult blood (-), no anneliese on rectal exam. Pt abdominal exam revealed tenderness over uterus and superior lateral margin. US revealed findings concerning for cervical cancer, urterine mass/fibroid. CXR stable. CT revealed incidental findings including stone in gallbladder neck. She has no right upper quadrant tenderness on examination. Transaminases within normal limits. No elevation of Alk Phos. BNP elevated, but clinically patient does not appear to be in an acute exacerbation of CHF, most likely chronic elevation. Patient will be admitted on telemetry. Cardiology and gynocology on consult. Surgery consulted for incidental findings, pt asymptomatic. She was evaluated in person by attending provider Dr. Rea who is agreeable with plan. He discussed the patient who verbalizes understanding. Patient be transferred to the floor with care resumed by admitting provivder Dr. Sanabria who spoke with Dr. Rea. (Nilda Martinez) - Lab Data Lab Results 08/30/18 08/30/18 08/30/18 Range/Units 14:30 14:30 14:30 WBC 6.5 (3.8-10.6) k/uL RBC 4.04 (3.80-5.40) m/uL Hgb 12.3 (11.4-16.0) gm/dL Hct 39.5 (34.0-46.0) % MCV 97.7 (80.0-100.0) fL MCH 30.4 (25.0-35.0) pg MCHC 31.2 (31.0-37.0) g/dL RDW 14.0 (11.5-15.5) % Plt Count 254 (150-450) k/uL Neutrophils % 78 % Lymphocytes % 13 % Monocytes % 6 % Eosinophils % 2 % Basophils % 0 % Neutrophils # 5.1 (1.3-7.7) k/uL Lymphocytes # 0.8 L (1.0-4.8) k/uL Monocytes # 0.4 (0-1.0) k/uL Eosinophils # 0.1 (0-0.7) k/uL Basophils # 0.0 (0-0.2) k/uL PT 11.6 (9.0-12.0) sec INR 1.1 (<1.2) APTT 26.2 (22.0-30.0) sec Sodium 140 (137-145) mmol/L Potassium 4.3 (3.5-5.1) mmol/L Chloride 107 (98-107) mmol/L Carbon Dioxide 26 (22-30) mmol/L Anion Gap 7 mmol/L BUN 29 H (7-17) mg/dL Creatinine 1.16 H (0.52-1.04) mg/dL Est GFR (CKD-EPI)AfAm 54 (>60 ml/min/1.73 sqM) Est GFR (CKD-EPI)NonAf 47 (>60 ml/min/1.73 sqM) Glucose 139 H (74-99) mg/dL Calcium 9.4 (8.4-10.2) mg/dL Total Bilirubin 1.3 (0.2-1.3) mg/dL AST 16 (14-36) U/L ALT 20 (9-52) U/L Alkaline Phosphatase 79 (38-126) U/L Troponin I (0.000-0.034) ng/mL NT-Pro-B Natriuret Pep pg/mL Total Protein 6.6 (6.3-8.2) g/dL Albumin 3.6 (3.5-5.0) g/dL Stool Occult Blood (Negative) Blood Type Blood Type Recheck Antibody Screen Spec Expiration Date 08/30/18 08/30/18 08/30/18 Range/Units 14:30 14:30 14:30 WBC (3.8-10.6) k/uL RBC (3.80-5.40) m/uL Hgb (11.4-16.0) gm/dL Hct (34.0-46.0) % MCV (80.0-100.0) fL MCH (25.0-35.0) pg MCHC (31.0-37.0) g/dL RDW (11.5-15.5) % Plt Count (150-450) k/uL Neutrophils % % Lymphocytes % % Monocytes % % Eosinophils % % Basophils % % Neutrophils # (1.3-7.7) k/uL Lymphocytes # (1.0-4.8) k/uL Monocytes # (0-1.0) k/uL Eosinophils # (0-0.7) k/uL Basophils # (0-0.2) k/uL PT (9.0-12.0) sec INR (<1.2) APTT (22.0-30.0) sec Sodium (137-145) mmol/L Potassium (3.5-5.1) mmol/L Chloride (98-107) mmol/L Carbon Dioxide (22-30) mmol/L Anion Gap mmol/L BUN (7-17) mg/dL Creatinine (0.52-1.04) mg/dL Est GFR (CKD-EPI)AfAm (>60 ml/min/1.73 sqM) Est GFR (CKD-EPI)NonAf (>60 ml/min/1.73 sqM) Glucose (74-99) mg/dL Calcium (8.4-10.2) mg/dL Total Bilirubin (0.2-1.3) mg/dL AST (14-36) U/L ALT (9-52) U/L Alkaline Phosphatase (38-126) U/L Troponin I <0.012 (0.000-0.034) ng/mL NT-Pro-B Natriuret Pep 1990 pg/mL Total Protein (6.3-8.2) g/dL Albumin (3.5-5.0) g/dL Stool Occult Blood (Negative) Blood Type A Positive Blood Type Recheck No Antibody Screen NEGATIVE Spec Expiration Date 09/02/2018 - 232908/30/18 Range/Units 15:23 WBC (3.8-10.6) k/uL RBC (3.80-5.40) m/uL Hgb (11.4-16.0) gm/dL Hct (34.0-46.0) % MCV (80.0-100.0) fL MCH (25.0-35.0) pg MCHC (31.0-37.0) g/dL RDW (11.5-15.5) % Plt Count (150-450) k/uL Neutrophils % % Lymphocytes % % Monocytes % % Eosinophils % % Basophils % % Neutrophils # (1.3-7.7) k/uL Lymphocytes # (1.0-4.8) k/uL Monocytes # (0-1.0) k/uL Eosinophils # (0-0.7) k/uL Basophils # (0-0.2) k/uL PT (9.0-12.0) sec INR (<1.2) APTT (22.0-30.0) sec Sodium (137-145) mmol/L Potassium (3.5-5.1) mmol/L Chloride (98-107) mmol/L Carbon Dioxide (22-30) mmol/L Anion Gap mmol/L BUN (7-17) mg/dL Creatinine (0.52-1.04) mg/dL Est GFR (CKD-EPI)AfAm (>60 ml/min/1.73 sqM) Est GFR (CKD-EPI)NonAf (>60 ml/min/1.73 sqM) Glucose (74-99) mg/dL Calcium (8.4-10.2) mg/dL Total Bilirubin (0.2-1.3) mg/dL AST (14-36) U/L ALT (9-52) U/L Alkaline Phosphatase (38-126) U/L Troponin I (0.000-0.034) ng/mL NT-Pro-B Natriuret Pep pg/mL Total Protein (6.3-8.2) g/dL Albumin (3.5-5.0) g/dL Stool Occult Blood Negative (Negative) Blood Type Blood Type Recheck Antibody Screen Spec Expiration Date - EKG Data EKG Comments: Ventricular rate 146 bpm, QRS duration 78 ms, QT/QTC 318/495 ms. This is atrial fibrillation with rapid ventricular response. Nonspecific ST and T-wave abnormality. EKG was reviewed by myself and well as attending provider Dr. Rea. (Nilda Martinez) Disposition <Yasmani Rea - Last Filed: 08/30/18 16:36> Is patient prescribed a controlled substance at d/c from ED?: No Time of Disposition: 16:50 Decision to Admit Reason: Admit from EC Decision Date: 08/30/18 Decision Time: 16:50 <Nilda Martinez - Last Filed: 08/30/18 17:10> Clinical Impression: Cervical mass, Uterine mass, Post-menopausal bleeding, Atrial fibrillation with RVR Disposition: ADMITTED IP TO THIS HOSP Condition: Stable Referrals: Dada Maddox DO [Primary Care Provider] - 1-2 days
[2018-08-30] MEDS ORDERED: DILTIAZEM DRIP BOLUS FROM BAG 1 MG SOLN IV ONE (14:42)
[2018-08-30] MEDS ORDERED: PANTOPRAZOLE 40 MG/10 ML VIAL IVP STA (14:48)
[2018-08-30] MEDS ORDERED: DILTIAZEM 125 MG in SODIUM CHLORIDE 0.9% 100 ML IV SCH (15:00)
[2018-08-30 15:17] LABS: INR 1.1 (<1.2); Partial Thromboplastin Time 26.2 sec (22.0-30.0); Prothrombin Time 11.6 sec (9.0-12.0)
[2018-08-30 15:18] LABS: Basophils % (A) 0 %; Eosinophils # (A) 0.1 k/uL (0-0.7); Eosinophils % (A) 2 %; HCT 39.5 % (34.0-46.0); HGB 12.3 gm/dL (11.4-16.0); Lymphocytes # (A) 0.8 k/uL (1.0-4.8); Lymphocytes % (A) 13 %; MCH 30.4 pg (25.0-35.0); MCHC 31.2 g/dL (31.0-37.0); MCV 97.7 fL (80.0-100.0); Mean Platelet Volume 6.6; Monocytes # (A) 0.4 k/uL (0-1.0); Monocytes % (A) 6 %; Neutrophils # (A) 5.1 k/uL (1.3-7.7); Neutrophils % (A) 78 %; Platelet Count 254 k/uL (150-450); RBC 4.04 m/uL (3.80-5.40); WBC 6.5 k/uL (3.8-10.6)
[2018-08-30 15:21] LABS: Albumin 3.6 g/dL (3.5-5.0); Calcium 9.4 mg/dL (8.4-10.2); Potassium 4.3 mmol/L (3.5-5.1); Total Bilirubin 1.3 mg/dL (0.2-1.3); Total Protein 6.6 g/dL (6.3-8.2)
--- NOTE | 2018-08-30 15:45 | US ---
EXAMINATION TYPE: US transvaginal DATE OF EXAM: 08/30/2018 COMPARISON: NONE CLINICAL HISTORY: vaginal bleeding post menopause. Post menopausal bleeding on and off since 2017 TECHNIQUE: . Transvaginal sonographic images of the pelvis were acquired. Date of LMP: Around age 49 EXAM MEASUREMENTS: Uterus: 8.7 x 6.3 x 6.6 cm cm Endometrial Stripe: 0.7 cm Right Ovary: Not visualized with certainty Left Ovary: Not visualized with certainty 1. Uterus: Anteverted Heterogeneous myometrium. Possible fibroid visualized measuring 2.1 x 1.6 x 1.4 cm. Hypoechoic area visualized within the cervix measuring 1.8 x 0.9 x 1.5 cm 2. Endometrium: Appears thickened 3. Right Ovary: Not visualized with certainty. There is a hypoechoic area visualized within the righ t adnexa measuring 3.3 x 2.4 x 2.0 cm. There is venous flow visualized within this area. Unable to vi sualize arterial flow. Difficult exam due to patient unable to lift pelvis 4. Left Ovary: Not visualized with certainty 5. Bilateral Adnexa: See above 6. Posterior cul-de-sac: wnl IMPRESSION: 1. Hypoechoic area within the cervix is suspicious for cervical neoplasm and measures 1.8 cm. 2. Endometrial thickening in a postmenopausal female could represent endometrial cancer or endometria l hyperplasia. Direct visualization is recommended. 3. Probable uterine leiomyoma that appears intramural within the posterior myometrium. 4. Suboptimal visualization of the ovaries with possible visualization of a right ovary, limited eval uation. This could be further assessed with pelvic MRI if there is further clinical concern.
--- NOTE | 2018-08-30 16:21 | CT ---
EXAMINATION TYPE: CT abdomen pelvis w con DATE OF EXAM: 08/30/2018 COMPARISON: Pelvic ultrasound same date HISTORY: lower abdominal/pelvic pain, vaginal bleeding. CT DLP: 1544.8 mGycm Automated exposure control for dose reduction was used. TECHNIQUE: Helical acquisition of images from the lung bases through the pelvis have been completed. CONTRAST: Performed without Oral Contrast and with IV Contrast, patient injected with 80 mL of Isovue 300. FINDINGS: LUNG BASES: Minimal basilar atelectatic changes are present.. AORTA: Atheromatous changes are present. LIVER/GB: There are gallstones present within the distended gallbladder, there is gallstone possibly impacted at the gallbladder neck level measuring 2.6 cm, the stone may have eroded, unclear as to whe ther this may be extrinsic to the gallbladder. PANCREAS: No significant abnormality is seen. SPLEEN: No significant abnormality is seen. ADRENALS: Left adrenal gland is enlarged measuring 4.1 x 3.2 x 4 cm, there is mixed attenuation. Righ t adrenal gland is somewhat atrophic. KIDNEYS: Left kidney shows a dense exophytic focus at the upper pole anteriorly measuring only 12 mm, there is a septated cystic focus at the upper pole the right kidney measuring 4.5 cm. Exophytic cyst ic focus is present at the midpole and lower pole posterior laterally measuring only approximately 20 mm and 16 mm respectively. REPRODUCTIVE ORGANS: Uterus has a somewhat bulky appearance. Uterus shows heterogeneous density. BOWEL: Diverticular changes extensive within the sigmoid colon. FREE AIR: No Free Air visible. . ASCITES: Minimal free fluid noted in the dependent pelvis PELVIC ADENOPATHY: None visualized. RETROPERITONEAL ADENOPATHY: No Retroperitoneal Adenopathy visible. URINARY BLADDER: No significant abnormality is seen. OSSEOUS STRUCTURES: Postop change of the left hip causes some streak artifact which could limit sens itivity. Degenerative disc changes, facet arthropathy noted in the lumbar spine. IMPRESSION: PROBABLE FIBROID UTERUS. CONSIDER CUPOLA PATCHER CONSULT. Cholelithiasis, distended gallbladder, there may be im pacted stone within the gallbladder neck, consider surgical consult. Left adrenal mass, indeterminate renal lesions, adrenal and renal MRI may be of benefit. Diverticulosis and additional findings abov e.
[2018-08-30] MEDS: DILTIAZEM 125 MG in SODIUM CHLORIDE 0.9% 100 ML IV SCH (16:30)
--- NOTE | 2018-08-30 16:33 | XR ---
EXAMINATION TYPE: XR chest 2V DATE OF EXAM: 08/30/2018 COMPARISON: 07/31/2017 HISTORY: 73 year-old female abdominal pain TECHNIQUE: AP and lateral views FINDINGS: Heart mildly enlarged. Hyperinflation. Diffuse interstitial prominence, possible prominence to the pu lmonary vasculature. No consolidation or pleural effusion seen. IMPRESSION: Cardiomegaly and possible underlying COPD. Interstitial prominence appears in part chronic. Correlate to exclude mild pulmonary vascular congestion. No airspace disease or pleural effusion.
[2018-08-30] MEDS ORDERED: SODIUM CHLORIDE 0.9% 1,000 ML IV SCH (16:45)
[2018-08-30] MEDS ORDERED: NALOXONE 0.4 MG/ML 1 ML VIAL IV PRN (16:46)
[2018-08-30] MEDS: SODIUM CHLORIDE 0.9% 1,000 ML IV SCH (18:02)
[2018-08-30 18:12] LABS: Appearance,Urine Clear (Clear); Bilirubin,Urine Negative (Negative); Blood,Urine Large (Negative); Color,Urine Yellow; Glucose,Urine (UA) Negative (Negative); Ketones,Urine Negative (Negative); Leukocyte Esterase,Urine Negative (Negative); Mucus,Urine Rare /hpf; Nitrite,Urine Negative (Negative); Protein,Urine Negative (Negative); RBC,Urine >182 /hpf (0-5); Specific Gravity,Urine 1.018 (1.001-1.035); Squamous Epithelial Cell,Urine 1 /hpf (0-4); Urobilinogen,Urine <2.0 mg/dL (<2.0); WBC,Urine 3 /hpf (0-5)
[2018-08-30] MEDS: METOPROLOL TARTRATE 50 MG TAB PO SCH (20:53)
[2018-08-31 08:13] LABS: HCT 35.7 % (34.0-46.0); HGB 11.2 gm/dL (11.4-16.0); Hypochromasia Slight; MCH 30.8 pg (25.0-35.0); MCHC 31.5 g/dL (31.0-37.0); MCV 97.8 fL (80.0-100.0); Mean Platelet Volume 7.1; Platelet Count 230 k/uL (150-450); RBC 3.65 m/uL (3.80-5.40); RDW 13.8 % (11.5-15.5); WBC 6.1 k/uL (3.8-10.6)
[2018-08-31 08:32] LABS: Potassium 4.1 mmol/L (3.5-5.1)
--- NOTE | 2018-08-31 08:46 | P.CRDCN ---
History of Present Illness Consult date: 08/31/18 Requesting physician: Biju Sanabria Consult reason: atrial fibrillation Chief complaint: Vaginal bleeding History of present illness: This is a 73-year-old female with known history of chronic persistent atrial fibrillation, on Coumadin for anticoagulation however she has been known to be noncompliant with taking the Coumadin and having the INRs checked, history of prior myocardial infarction, hyperlipidemia, prior CVA, prior history of smoking, hypertension, she also underwent a cardiac catheterization in March 2017 because of a positive stress test and was found to have normal coronary arteries. She presents to the hospital on this occasion with symptoms of vaginal bleeding. According to the patient she had noticed some vaginal bleeding off and on since January or February of last year, however for the past 3 or 4 days it has been persistent and constant. He describes it as a bright red bleeding. A transvaginal ultrasound was performed which revealed hypoechoic area within the cervix suspicious for cervical neoplasm, which measures 1.8 cm. Endometrial thickening which could represent endometrial cancer or endometrial hyperplasia. Probable uterine lipoma. Suboptimal visualization of the ovaries, limited. CAT scan of the abdomen showed probable fibroid uterus, cholelithiasis, distended gallbladder. Left adrenal mass indeterminate renal lesions. Chest x-ray on admission showed cardiomegaly and possible underlying COPD. Correlation recommended to exclude mild pulmonary vascular congestion. EKG on arrival here showed atrial fibrillation with a rapid ventricular response. Blood pressure 118/70 this morning with a heart rate in the 60s, 91% on room air. White blood cell count 6.1, hemoglobin 11.2, platelet count 2:30. INR on admission 1.1. Sodium 140, potassium 4.3, BUN 29 and creatinine 1.1. Troponin 0.012 with a BNP of 1990. Total for occult blood was negative. Large blood in the urine. Past Medical History Past Medical History: Atrial Fibrillation, CVA/TIA, Hyperlipidemia, Myocardial Infarction ([place]) Additional Past Medical History / Comment(s): 07/27/17 F[facility] HIP FX. 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 Last Myocardial Infarction Date:: 2009 History of Any Multi-Drug Resistant Organisms: None Reported Past Surgical History: Heart Catheterization, Orthopedic Surgery, Tonsillectomy Additional Past Surgical History / Comment(s): ORIF RT ANKLE HAS PLATE. Past Anesthesia/Blood Transfusion Reactions: No Reported Reaction Past Psychological History: No Psychological Hx Reported Smoking Status: Former smoker Past Alcohol Use History: None Reported Additional Past Alcohol Use History / Comment(s): STARTED SMOKING AGE 13 AND QUIT 2012 SMOKED 1 PPD Past Drug Use History: None Reported - Past Family History Mother Family Medical History: No Reported History Additional Family Medical History / Comment(s): FROM ANUERYSM Father Family Medical History: No Reported History Medications and Allergies Home Medications Medication Instructions Recorded Confirmed Type Warfarin [Coumadin] 5 mg PO SUMO 03/18/17 08/30/18 History Metoprolol Tartrate [Lopressor] 100 mg PO TID tab 08/03/17 08/30/18 Rx Warfarin Sodium 2.5 mg PO TUWETHFRSA 08/30/18 08/30/18 History Allergies Allergy/AdvReac Type Severity Reaction Status Date / Time No Known Allergies Allergy Verified 08/30/18 14:20 Physical Exam Vitals: Vital Signs Temp Pulse Pulse Resp BP BP Pulse Ox 08/31/18 04:00 98.0 F 64 18 115/72 91 L 08/31/18 00:00 98.0 F 70 17 120/71 95 08/30/18 20:00 98.1 F 114 H 18 136/75 93 L 08/30/18 18:00 98.0 F 114 H 20 108/80 99 08/30/18 17:54 119 H 22 123/65 99 08/30/18 16:30 127 H 18 110/87 95 08/30/18 16:00 124 H 22 119/88 95 08/30/18 15:00 155 H 22 126/56 99 08/30/18 13:53 98 F 144 H 18 139/110 94 L Intake and Output 08/30/18 08/31/18 08/31/18 22:59 06:59 14:59 Intake Total 306.917 300 Balance 306.917 300 Intake: Intake, IV Titration 66.917 300 Amount Diltiazem 125 mg In 10 50 Sodium Chloride 0.9% 100 ml @ 10 MG/HR 10 mls/hr IV .[id number] [facility] Rx#: [id number] Diltiazem 125 mg In 6.917 Sodium Chloride 0.9% 100 ml @ 5 MG/HR 5 mls/hr IV .Q24H [facility] Rx#:[id number] Sodium Chloride 0.9% 1, 50 250 000 ml @ 50 mls/hr IV . Q20H [facility] Rx#:[id number] Oral 240 Other: Voiding Method Toilet Toilet Weight 106.3 kg PHYSICAL EXAMINATION: GENERAL: 73-year-old female in no acute distress at the time of my examination HEENT: Head is atraumatic, normocephalic. Pupils equal, round. Sclera anicteric. Conjunctiva are clear. Mucous membranes of the mouth are moist. Neck is supple. There is no elevated jugular venous pressure. No carotid bruit is heard. HEART EXAMINATION: Heart S1 and S2 irregularly irregular CHEST EXAMINATION: Lungs are clear with fine crackles heard to bilateral bases. ABDOMEN: Soft, nontender. Bowel sounds are heard. No organomegaly noted. EXTREMITIES: 2+ peripheral pulses with no evidence of peripheral edema and no calf tenderness noted. NEUROLOGIC patient is awake, alert and oriented 3 . . Results 08/31/18 07:03 08/31/18 07:03 Cardiac Enzymes 08/30/18 08/30/18 Range/Units 14:30 14:30 AST 16 (14-36) U/L Troponin I <0.012 (0.000-0.034) ng/mL Coagulation 08/30/18 Range/Units 14:30 PT 11.6 (9.0-12.0) sec APTT 26.2 (22.0-30.0) sec CBC 08/30/18 08/31/18 Range/Units 14:30 07:03 WBC 6.5 6.1 (3.8-10.6) k/uL RBC 4.04 3.65 L (3.80-5.40) m/uL Hgb 12.3 11.2 L (11.4-16.0) gm/dL Hct 39.5 35.7 (34.0-46.0) % Plt Count 254 230 (150-450) k/uL Comprehensive Metabolic Panel 08/30/18 08/31/18 Range/Units 14:30 07:03 Sodium 140 141 (137-145) mmol/L Potassium 4.3 4.1 (3.5-5.1) mmol/L Chloride 107 110 H (98-107) mmol/L Carbon Dioxide 26 25 (22-30) mmol/L BUN 29 H 25 H (7-17) mg/dL Creatinine 1.16 H 1.07 H (0.52-1.04) mg/dL Glucose 139 H 106 H (74-99) mg/dL Calcium 9.4 9.0 (8.4-10.2) mg/dL AST 16 (14-36) U/L ALT 20 (9-52) U/L Alkaline Phosphatase 79 (38-126) U/L Total Protein 6.6 (6.3-8.2) g/dL Albumin 3.6 (3.5-5.0) g/dL Current Medications Generic Name Dose Route Start Last Admin Trade Name Freq PRN Reason Stop Dose Admin Sodium Chloride 1,000 mls @ 50 mls/hr 08/30/18 17:00 08/30/18 18:02 Saline 0.9% IV 50 mls/hr .Q20H [facility] Administration Diltiazem HCl 125 mg/ Sodium 125 mls @ 10 mls/hr 08/30/18 17:00 08/30/18 16:30 Chloride IV 10 mg/hr .[id number] [facility] 10 mls/hr Administration 10 MG/HR Metoprolol Tartrate 100 mg 08/30/18 22:00 08/30/18 20:53 Lopressor PO 100 mg TID [facility] Administration Naloxone HCl 0.2 mg 08/30/18 16:46 Narcan IV Q2M PRN Opioid Reversal Intake and Output 08/30/18 08/31/18 08/31/18 22:59 06:59 14:59 Intake Total 306.917 300 Balance 306.917 300 Intake: Intake, IV Titration 66.917 300 Amount Diltiazem 125 mg In 10 50 Sodium Chloride 0.9% 100 ml @ 10 MG/HR 10 mls/hr IV .[id number] [facility] Rx#: [id number] Diltiazem 125 mg In 6.917 Sodium Chloride 0.9% 100 ml @ 5 MG/HR 5 mls/hr IV .Q24H [facility] Rx#:[id number] Sodium Chloride 0.9% 1, 50 250 000 ml @ 50 mls/hr IV . Q20H [facility] Rx#:[id number] Oral 240 Other: Voiding Method Toilet Toilet Weight 106.3 kg 08/31/18 07:03 08/31/18 07:03 EKG Interpretations (text) EKG shows atrial fibrillation with a rapid ventricular response Assessment and Plan Plan: Assessment and plan #1 vaginal bleeding, area within the cervix is suspicious for cervical neoplasm. [facility] consultation requested. #2 atrial fibrillation with rapid ventricular response. Patient has known chronic persistent atrial fibrillation, on Coumadin for anticoagulation. However the patient does not regularly take her Coumadin or have INRs checked regularly. INR on admission 1.1. #3 prior history of smoking #4 hypertension #5 hyperlipidemia #6 prior CVA #7 no documented coronary artery disease, patient did undergo a cardiac catheterization in March 2017 because of an abnormal stress test, she was found to have normal coronary arteries at that time. Plan We will obtain a TSH level as well as an echocardiogram with Doppler study. Discontinue Cardizem drip and start the patient on oral Cardizem. Patient is currently not on any anticoagulation, we will hold on this until consultation has been obtained with [facility] service. At that time we would recommend to initiate the patient on Eliquis. Further recommendations to follow. DNP note has been reviewed, I agree with a documented findings and plan of care. Patient was seen and examined.
--- NOTE | 2018-08-31 08:54 | P.OBCN ---
History of Present Illness Consult date: 08/31/18 Reason for consult: other (Postmenopausal bleeding) Chief complaint: vaginal bleeding, A-fib with RVR History of present illness: 73 year old presented to the hospital yesterday with daily vaginal bleeding for the last month. She has been having spotting with wiping at times since February but now that it is all the time she thought she should come to the hospital to tell someone. When she got to ER she also has A-fib with RVR and is now on a cardizem drip. She was on coumadin at home but her level is not therapeutic-her INR is 1 today. US showed a thickened endometrium at 0.7cm and a cyst or mass on her cervix. Review of Systems All systems: negative Constitutional: Denies chills, Denies fever Eyes: denies blurred vision, denies pain Ears, nose, mouth and throat: Denies headache, Denies sore throat Cardiovascular: Reports shortness of breath, Denies chest pain Respiratory: Denies cough Gastrointestinal: Denies abdominal pain, Denies diarrhea, Denies nausea, Denies vomiting Genitourinary: Denies dysuria, Denies hematuria Menstruation: Reports postmenopausal (but having steady spotting. No clots or gushes of blood.) Musculoskeletal: Denies myalgias Integumentary: Denies pruritus, Denies rash Neurological: Denies numbness, Denies weakness Psychiatric: Denies anxiety, Denies depression Endocrine: Denies fatigue, Denies weight change Past Medical History Past Medical History: Atrial Fibrillation, CVA/TIA, Hyperlipidemia, Myocardial Infarction ([place]) Additional Past Medical History / Comment(s): 07/27/17 [place] HIP FX. 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 - s/p 5 vaginal deliveries Last Myocardial Infarction Date:: 2009 History of Any Multi-Drug Resistant Organisms: None Reported Past Surgical History: Heart Catheterization, Orthopedic Surgery, Tonsillectomy Additional Past Surgical History / Comment(s): ORIF RT ANKLE HAS PLATE. Past Anesthesia/Blood Transfusion Reactions: No Reported Reaction Past Psychological History: No Psychological Hx Reported Smoking Status: Former smoker Past Alcohol Use History: None Reported Additional Past Alcohol Use History / Comment(s): STARTED SMOKING AGE 13 AND QUIT 2012 SMOKED 1 PPD Past Drug Use History: None Reported - Past Family History Mother Family Medical History: No Reported History Additional Family Medical History / Comment(s): FROM ANUERYSM Father Family Medical History: No Reported History Medications and Allergies Home Medications Medication Instructions Recorded Confirmed Type Warfarin [Coumadin] 5 mg PO SUMO 03/18/17 08/30/18 History Metoprolol Tartrate [Lopressor] 100 mg PO TID tab 08/03/17 08/30/18 Rx Warfarin Sodium 2.5 mg PO TUWETHFRSA 08/30/18 08/30/18 History Allergies Allergy/AdvReac Type Severity Reaction Status Date / Time No Known Allergies Allergy Verified 08/30/18 14:20 Exam Osteopathic Statement: *. No significant issues noted on an osteopathic struc tural exam other than those noted in the History and Physical/Consult. Vital Signs Temp Pulse Pulse Resp BP BP Pulse Ox 08/31/18 04:00 98.0 F 64 18 115/72 91 L 08/31/18 00:00 98.0 F 70 17 120/71 95 08/30/18 20:00 98.1 F 114 H 18 136/75 93 L 08/30/18 18:00 98.0 F 114 H 20 108/80 99 08/30/18 17:54 119 H 22 123/65 99 08/30/18 16:30 127 H 18 110/87 95 08/30/18 16:00 124 H 22 119/88 95 08/30/18 15:00 155 H 22 126/56 99 08/30/18 13:53 98 F 144 H 18 139/110 94 L Intake and Output 08/30/18 08/31/18 08/31/18 22:59 06:59 14:59 Intake Total 306.917 300 Balance 306.917 300 Intake: Intake, IV Titration 66.917 300 Amount Diltiazem 125 mg In 10 50 Sodium Chloride 0.9% 100 ml @ 10 MG/HR 10 mls/hr IV .[id number] [facility] Rx#: [id number] Diltiazem 125 mg In 6.917 Sodium Chloride 0.9% 100 ml @ 5 MG/HR 5 mls/hr IV .Q24H [facility] Rx#:[id number] Sodium Chloride 0.9% 1, 50 250 000 ml @ 50 mls/hr IV . Q20H [facility] Rx#:[id number] Oral 240 Other: Voiding Method Toilet Toilet Weight 106.3 kg abdomen: soft, nontender pelvis: there is some dry blood on the pad but I will wait to perform pelvic with pap and endometrial biopsy until I can see her in my office. Results Result Diagrams: 08/31/18 07:03 08/31/18 07:03 Abnormal Lab Results - Last 24 Hours (Table) 08/30/18 08/30/18 08/30/18 Range/Units 14:30 14:30 17:45 RBC (3.80-5.40) m/uL Hgb (11.4-16.0) gm/dL Lymphocytes # 0.8 L (1.0-4.8) k/uL Chloride (98-107) mmol/L BUN 29 H (7-17) mg/dL Creatinine 1.16 H (0.52-1.04) mg/dL Glucose 139 H (74-99) mg/dL Urine Blood Large H (Negative) Urine RBC >182 H (0-5) /hpf Urine Mucus Rare H (None) /hpf 08/31/18 08/31/18 Range/Units 07:03 07:03 RBC 3.65 L (3.80-5.40) m/uL Hgb 11.2 L (11.4-16.0) gm/dL Lymphocytes # (1.0-4.8) k/uL Chloride 110 H (98-107) mmol/L BUN 25 H (7-17) mg/dL Creatinine 1.07 H (0.52-1.04) mg/dL Glucose 106 H (74-99) mg/dL Urine Blood (Negative) Urine RBC (0-5) /hpf Urine Mucus (None) /hpf Microbiology - Last 24 Hours (Table) 08/30/18 17:45 Urine Culture - Preliminary Urine,Voided Assessment and Plan Assessment: 1. Postmenopausal bleeding 2. A-fib Plan: This bleeding is not from the coumadin as she is not even at a therapeutic level. It could be related to her thickened endometrium and be endometrial hyperplasia or endometrial cancer. It could also be related to the cervical mass and she could have dysplasia or cancer there. I need to be able to perform a full pelvic exam with pap and biopsy but I am unable to perform this adequately in the hospital with her in this bed. I will likely have her follow up in my office in 1-2 weeks. HEr hemoglobin is stable at this time and I do believe this is the best course. I discussed this plan with the patient and she is in agreement to see me at the office.
[2018-08-31] MEDS ORDERED: DILTIAZEM ORAL 30 MG TAB PO SCH (09:00)
[2018-08-31] MEDS: METOPROLOL TARTRATE 50 MG TAB PO SCH (10:03)
[2018-08-31] MEDS: DILTIAZEM 125 MG in SODIUM CHLORIDE 0.9% 100 ML IV SCH (10:07)
--- NOTE | 2018-08-31 13:06 | P.GSCN ---
History of Present Illness Consult date: 08/31/18 Reason for Consult: impacted GB Requesting physician: Nilda Martinez History of present illness: CHIEF COMPLAINT: Vaginal bleeding HISTORY OF PRESENT ILLNESS: 73-year-old female who presented to emergency room with a chief complaint of vaginal bleeding. Patient underwent CT abdomen and pelvis which revealed cholelithiasis, distended gallbladder, and possible impacted stone within the gallbladder neck. General surgery was consulted for further evaluation. Patient reports lower abdominal pain. Denies any right sided abdominal pain or shoulder pain. Denies pain after meals. Denies change in bowel habits. Denies constipation or diarrhea. Denies nausea or vomiting. PAST MEDICAL HISTORY: See list. PAST SURGICAL HISTORY: See list. SOCIAL HISTORY: No illicit drug use. REVIEW OF SYSTEMS: CONSTITUTIONAL: Denies fever or chills. HEENT: Denies blurred vision, vision changes, or eye pain. Denies hemoptysis CARDIOVASCULAR: Denies chest pain or pressure. RESPIRATORY: No shortness of breath. GASTROINTESTINAL: Refer to HPI for pertinent findings HEMATOLOGIC: Denies bleeding disorders. GENITOURINARY: Denies any blood in urine. SKIN: Denies pruitis. Denies rash. PHYSICAL EXAM: VITAL SIGNS: Reviewed. GENERAL: Well-developed in no acute distress. HEENT: No sclera icterus. Extraocular movements grossly intact. Moist buccal mucosa. Head is atraumatic, normocephalic. ABDOMEN: Soft. Nondistended. Positive bowel sounds. NEUROLOGIC: Alert and oriented. Cranial nerves II through XII grossly intact. ASSESSMENT: 1. Cholelithiasis, possible impacted gallstone in gallbladder neck PLAN: Patient is completely asymptomatic at this time. No inpatient surgical intervention recommended. Patient advised to follow up with Dr. Stanford outpatient after discharge for further evaluation. Nurse practitioner note has been reviewed by physician. Signing provider agrees with the documented findings, assessment, and plan of care. Past Medical History Past Medical History: Atrial Fibrillation, CVA/TIA, Hyperlipidemia, Myocardial Infarction ([place]) Additional Past Medical History / Comment(s): 07/27/17 [place] HIP FX. 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 Last Myocardial Infarction Date:: 2009 History of Any Multi-Drug Resistant Organisms: None Reported Past Surgical History: Heart Catheterization, Orthopedic Surgery, Tonsillectomy Additional Past Surgical History / Comment(s): ORIF RT ANKLE HAS PLATE. Past Anesthesia/Blood Transfusion Reactions: No Reported Reaction Past Psychological History: No Psychological Hx Reported Smoking Status: Former smoker Past Alcohol Use History: None Reported Additional Past Alcohol Use History / Comment(s): STARTED SMOKING AGE 13 AND QUIT 2012 SMOKED 1 PPD Past Drug Use History: None Reported - Past Family History Mother Family Medical History: No Reported History Additional Family Medical History / Comment(s): FROM ANUERYSM Father Family Medical History: No Reported History Medications and Allergies Home Medications Medication Instructions Recorded Confirmed Type Warfarin [Coumadin] 5 mg PO SUMO 03/18/17 08/30/18 History Metoprolol Tartrate [Lopressor] 100 mg PO TID tab 08/03/17 08/30/18 Rx Warfarin Sodium 2.5 mg PO TUWETHFRSA 08/30/18 08/30/18 History Allergies Allergy/AdvReac Type Severity Reaction Status Date / Time No Known Allergies Allergy Verified 08/30/18 14:20 Surgical - Exam Vital Signs Temp Pulse Resp BP Pulse Ox 98 F 144 H 18 139/110 94 L 08/30/18 13:53 08/30/18 13:53 08/30/18 13:53 08/30/18 13:53 08/30/18 13:53 Results - Labs 08/31/18 07:03 08/31/18 07:03 Abnormal Lab Results - Last 24 Hours (Table) 08/30/18 08/30/18 08/30/18 Range/Units 14:30 14:30 17:45 RBC (3.80-5.40) m/uL Hgb (11.4-16.0) gm/dL Lymphocytes # 0.8 L (1.0-4.8) k/uL Chloride (98-107) mmol/L BUN 29 H (7-17) mg/dL Creatinine 1.16 H (0.52-1.04) mg/dL Glucose 139 H (74-99) mg/dL Urine Blood Large H (Negative) Urine RBC >182 H (0-5) /hpf Urine Mucus Rare H (None) /hpf 08/31/18 08/31/18 Range/Units 07:03 07:03 RBC 3.65 L (3.80-5.40) m/uL Hgb 11.2 L (11.4-16.0) gm/dL Lymphocytes # (1.0-4.8) k/uL Chloride 110 H (98-107) mmol/L BUN 25 H (7-17) mg/dL Creatinine 1.07 H (0.52-1.04) mg/dL Glucose 106 H (74-99) mg/dL Urine Blood (Negative) Urine RBC (0-5) /hpf Urine Mucus (None) /hpf Microbiology - Last 24 Hours (Table) 08/30/18 17:45 Urine Culture - Preliminary Urine,Voided Diabetes panel 08/30/18 08/31/18 Range/Units 14:30 07:03 Sodium 140 141 (137-145) mmol/L Potassium 4.3 4.1 (3.5-5.1) mmol/L Chloride 107 110 H (98-107) mmol/L Carbon Dioxide 26 25 (22-30) mmol/L BUN 29 H 25 H (7-17) mg/dL Creatinine 1.16 H 1.07 H (0.52-1.04) mg/dL Glucose 139 H 106 H (74-99) mg/dL Calcium 9.4 9.0 (8.4-10.2) mg/dL AST 16 (14-36) U/L ALT 20 (9-52) U/L Alkaline Phosphatase 79 (38-126) U/L Total Protein 6.6 (6.3-8.2) g/dL Albumin 3.6 (3.5-5.0) g/dL Thyroid panel 08/31/18 Range/Units 07:03 TSH 1.010 (0.465-4.680) mIU/L Calcium panel 08/30/18 08/31/18 Range/Units 14:30 07:03 Calcium 9.4 9.0 (8.4-10.2) mg/dL Albumin 3.6 (3.5-5.0) g/dL Pituitary panel 08/30/18 08/31/18 08/31/18 Range/Units 14:30 07:03 07:03 Sodium 140 141 (137-145) mmol/L Potassium 4.3 4.1 (3.5-5.1) mmol/L Chloride 107 110 H (98-107) mmol/L Carbon Dioxide 26 25 (22-30) mmol/L BUN 29 H 25 H (7-17) mg/dL Creatinine 1.16 H 1.07 H (0.52-1.04) mg/dL Glucose 139 H 106 H (74-99) mg/dL Calcium 9.4 9.0 (8.4-10.2) mg/dL TSH 1.010 (0.465-4.680) mIU/L Adrenal panel 08/30/18 08/31/18 Range/Units 14:30 07:03 Sodium 140 141 (137-145) mmol/L Potassium 4.3 4.1 (3.5-5.1) mmol/L Chloride 107 110 H (98-107) mmol/L Carbon Dioxide 26 25 (22-30) mmol/L BUN 29 H 25 H (7-17) mg/dL Creatinine 1.16 H 1.07 H (0.52-1.04) mg/dL Glucose 139 H 106 H (74-99) mg/dL Calcium 9.4 9.0 (8.4-10.2) mg/dL Total Bilirubin 1.3 (0.2-1.3) mg/dL AST 16 (14-36) U/L ALT 20 (9-52) U/L Alkaline Phosphatase 79 (38-126) U/L Total Protein 6.6 (6.3-8.2) g/dL Albumin 3.6 (3.5-5.0) g/dL
--- NOTE | 2018-08-31 14:27 | ECHOF ---
Referral Reason:chest pain MEASUREMENTS -------- HEIGHT: 172.7 cm WEIGHT: 106.1 kg BP: 115/8 RVIDd: 2.9 cm (< 3.3) IVSd: 1.3 cm (0.6 - 1.1) LVIDd: 4.7 cm (3.9 - 5.3) LVPWd: 1.3 cm (0.6 - 1.1) IVSs: 1.6 cm LVIDs: 2.9 cm LVPWs: 1.8 cm LA Diam: 3.6 cm (2.7 - 3.8) LAESV Index (A-L): 35.96 ml/m Ao Diam: 3.8 cm (2.0 - 3.7) AV Cusp: 1.8 cm (1.5 - 2.6) MV EXCURSION: 18.742 mm (> 18.000) MV EF SLOPE: 173 mm/s (70 - 150) EPSS: 1.0 cm AR PHT: 645 ms RAP: 5.00 mmHg RVSP: 47.97 mmHg FINDINGS -------- Atrial fibrillation. This was a technically good study. The left ventricular size is normal. There is mild concentric left ventricular hypertrophy. Overa ll left ventricular systolic function is low-normal with, an EF between 50 - 55 %. The right ventricle is normal in size. LA is moderately dilated 34-39 ml/m2 The right atrium is normal in size. There is mild aortic valve sclerosis. There is mild aortic regurgitation. Mild mitral annular calcification present. [id number] mitral regurgitation is present. Mild tricuspid regurgitation present. There is moderate pulmonary hypertension. The right ventric ular systolic pressure, as measured by Doppler, is 47.97mmHg. There is no pulmonic regurgitation present. The aortic root is dilated measuring 3.8cm. Normal inferior vena cava with normal inspiratory collapse consistent with estimated right atrial pre ssure of 5 mmHg. The inferior vena cava is mildly dilated. There is no pericardial effusion. CONCLUSIONS -------- 1. Atrial fibrillation. 2. This was a technically good study. 3. The left ventricular size is normal. 4. There is mild concentric left ventricular hypertrophy. 5. Overall left ventricular systolic function is low-normal with, an EF between 50 - 55 %. 6. The right ventricle is normal in size. 7. LA is moderately dilated 34-39 ml/m2 8. The right atrium is normal in size. 9. There is mild aortic valve sclerosis. 10. There is mild aortic regurgitation. 11. Mild mitral annular calcification present. 12. [id number] mitral regurgitation is present. 13. Mild tricuspid regurgitation present. 14. There is moderate pulmonary hypertension. 15. The right ventricular systolic pressure, as measured by Doppler, is 47.97mmHg. 16. There is no pulmonic regurgitation present. 17. The aortic root is dilated measuring 3.8cm. 18. Normal inferior vena cava with normal inspiratory collapse consistent with estimated right atrial pressure of 5 mmHg. 19. The inferior vena cava is mildly dilated. 20. There is no pericardial effusion. AIRLINE ATTENDANT: Marcia Richard RDCS
--- NOTE | 2018-08-31 16:24 | HP ---
HISTORY AND PHYSICAL DATE OF ADMISSION: 08/30/2018 DATE OF SERVICE: 08/31/2018 PRESENTING COMPLAINT: Heart racing and vaginal bleeding. HISTORY OF PRESENTING COMPLAINT: This is a very pleasant 73-year-old patient who follows with Dr. Maddox. The patient noted that she has been having vaginal bleeding and spotting on and off for some time. It became more pronounced recently. Patient decided to come down to the hospital. She had to walk 2 blocks with her wheeled walker to get to the bus station and took a bus and then again had to walk to get to the hospital. She was found to be in atrial fibrillation with a rapid ventricular rate, put on a Cardizem drip and admitted for the same. The patient was minimally short of breath with some palpitation. Later on patient's heart rate did get better controlled. Patient was told in the past that she has diabetes, but her sugars have never been high. She is not taking any medication for the same. Also chronic stable conditions include hyperlipidemia and a prior myocardial infarction. She also had a stroke, with no further residual. Patient does use a walker. 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 REVIEW OF SYSTEMS: CONSTITUTIONAL: Tired. HEENT: None. RESPIRATORY: As above. CARDIOVASCULAR: As above. GASTROINTESTINAL: None. GENITOURINARY: As above. MUSCULOSKELETAL: None. DERMATOLOGICAL: None. HEMATOLOGICAL: As above. LYMPHATICS: None. PSYCHIATRY: None. NEUROLOGICAL: None. PAST MEDICAL HISTORY: 1. Atrial fibrillation. 2. Stroke with complete resolution in 2011. 3. Hyperlipidemia. 4. Heart attack. 5. Questionable diabetes. PAST SURGICAL HISTORY: 1. Right ankle was broken. 2. Cardiac catheterization. 3. Tonsillectomy. 4. ORIF of the right ankle. SOCIAL HISTORY: The patient smoked a pack a day for close to 54 years; stopped in 2011. No alcohol. Lives by herself. FAMILY HISTORY: Family member from aneurysm. HOME MEDICATIONS: 1. Coumadin 5 mg on Wednesday and Wednesday; 2.5 mg on other days. 2. Lopressor 100 mg t.i.d. ALLERGIES: NONE. PHYSICAL EXAMINATION: Temperature 98.9, pulse 70, respiration 18, blood pressure 136/87, pulse ox 92% on room air. GENERAL APPEARANCE: Well built; BMI 35.6. Lying in bed, awake. EYES: Pupils equal. Conjunctivae normal. HEENT: External appearance of nose and ears normal. Oral cavity normal. NECK: JVD not raised. Mass not palpable. RESPIRATORY: Effort normal. LUNGS: Fair air entry. CARDIOVASCULAR: Heart sounds irregular. Minimal edema. ABDOMEN: Soft, non-tender. Liver and spleen not palpable. LYMPHATIC: No lymph node palpable in neck or axillae. PSYCHIATRY: Alert and oriented x3. Mood and affect normal. NEUROLOGICAL: Pupils equal. Cranial nerves grossly intact. Power and sensation grossly intact. INVESTIGATIONS: White count 6.5, hemoglobin 12.3. Potassium 4.3. BUN 29, creatinine 1.16. Troponin negative. TSH 1.0. EKG tracing, personally reviewed by me, shows atrial fibrillation with a rapid ventricular rate up to 140s. Chest x-ray film, personally reviewed by me, shows borderline cardiomegaly and some venous prominence. Transvaginal ultrasound shows a hypoechoic area in the cervix suspicious for cervical neoplasm, endometrial thickening, probable uterine leiomyoma. Two-D echo showed EF of 50% to 55%, moderate pulmonary hypertension. ASSESSMENT: 1. Persistent atrial fibrillation, now presenting with rapid ventricular rate in a patient who did walk excessively today. 2. Intermittent followed by more prominent vaginal bleeding in a patient whose INR is subtherapeutic. The patient is found to have a thickened endometrium. The patient was seen by Dr. Hernandez, who will follow the patient as an outpatient. 3. Obesity with body mass index of 35.6. PLAN: Patient initially was put on a Cardizem drip, now switched over to Verapamil and also Lopressor. She was also started on Eliquis. Care was discussed with the patient. Questions were answered. MMODL / IJN: [id number] /
[2018-08-31] MEDS: SODIUM CHLORIDE 0.9% 1,000 ML IV SCH (17:06)
[2018-08-31] MEDS: APIXABAN 5 MG TAB PO SCH (21:24)
[2018-08-31] MEDS: VERAPAMIL 80 MG TAB PO SCH (21:25)
[2018-09-01] MEDS ORDERED: HYDROmorphone 0.5 MG/0.5 ML SYRINGE IVP STA (00:35)
[2018-09-01] MEDS ORDERED: FUROSEMIDE 10 MG/ML 4 ML VIAL IV STA (00:35)
[2018-09-01 00:36] LABS: Glucose,Whole Blood 149 mg/dL (75-99)
[2018-09-01] MEDS: APIXABAN 5 MG TAB PO SCH ×3 (08:42→21:01)
[2018-09-01] MEDS: VERAPAMIL 80 MG TAB PO SCH ×2 (08:42→21:01)
[2018-09-01] MEDS ORDERED: METOPROLOL TARTRATE 50 MG TAB PO SCH (09:00)
[2018-09-01 09:28] LABS: HCT 41.4 % (34.0-46.0); HGB 13.1 gm/dL (11.4-16.0); MCH 30.7 pg (25.0-35.0); MCHC 31.6 g/dL (31.0-37.0); MCV 97.2 fL (80.0-100.0); Mean Platelet Volume 7.1; Platelet Count 280 k/uL (150-450); RBC 4.26 m/uL (3.80-5.40); RDW 13.7 % (11.5-15.5); WBC 9.8 k/uL (3.8-10.6)
--- NOTE | 2018-09-01 09:35 | P.PN ---
Subjective Progress Note Date: 09/01/18 CHIEF COMPLAINT: Vaginal bleeding HISTORY OF PRESENT ILLNESS: Patient examined at the bedside. No complaints of right upper quadrant pain or back pain. Denies nausea or vomiting. Tolerating diet. PHYSICAL EXAM: VITAL SIGNS: Reviewed. GENERAL: Well-developed in no acute distress. HEENT: No sclera icterus. Extraocular movements grossly intact. Moist buccal mucosa. Head is atraumatic, normocephalic. ABDOMEN: Soft. Nondistended. Positive bowel sounds. NEUROLOGIC: Alert and oriented. Cranial nerves II through XII grossly intact. ASSESSMENT: 1. Cholelithiasis, possible impacted gallstone in gallbladder neck PLAN: Patient is completely asymptomatic at this time. No inpatient surgical intervention recommended. Patient advised to follow up with Dr. Stanford outpatient after discharge for further evaluation. We will sign off. Please re- consult if needed. Nurse practitioner note has been reviewed by physician. Signing provider agrees with the documented findings, assessment, and plan of care. Objective - Vital Signs Vital signs: Vital Signs Temp 98.0 F 09/01/18 02:45 Pulse 101 H 09/01/18 02:45 Resp 24 09/01/18 02:45 BP 147/90 09/01/18 02:45 Pulse Ox 95 09/01/18 02:45 Intake & Output 08/31/18 09/01/18 09/01/18 18:59 06:59 18:59 Intake Total 1580 Output Total 1600 Balance 1580 -1600 Weight 105.6 kg Intake: IV 600 Sodium Chloride 0.9% 1, 600 000 ml @ 50 mls/hr IV . Q20H [facility] Rx#:[id number] Oral 980 Output: Urine 1600 Other: Voiding Method Toilet Toilet # Voids 1 1 - Labs CBC & Chem 7: 09/01/18 09:05 08/31/18 07:03 Labs: Abnormal Lab Results - Last 24 Hours (Table) 09/01/18 Range/Units 00:30 POC Glucose (mg/dL) 149 H (75-99) mg/dL Microbiology - Last 24 Hours (Table) 08/30/18 17:45 Urine Culture - Final Urine,Voided
[2018-09-01 09:37] LABS: Calcium 9.1 mg/dL (8.4-10.2)
[2018-09-01] MEDS: SODIUM CHLORIDE 0.9% 1,000 ML IV SCH (12:18)
--- NOTE | 2018-09-01 12:58 | P.PN ---
Subjective Progress Note Date: 09/01/18 This is a 73-year-old female with known history of chronic persistent atrial fibrillation, on Coumadin for anticoagulation however she has been known to be noncompliant with taking the Coumadin and having the INRs checked, history of prior myocardial infarction, hyperlipidemia, prior CVA, prior history of smoking, hypertension, she also underwent a cardiac catheterization in March 2017 because of a positive stress test and was found to have normal coronary arteries. She presents to the hospital on this occasion with symptoms of vaginal bleeding. According to the patient she had noticed some vaginal bleeding off and on since January or February of last year, however for the past 3 or 4 days it has been persistent and constant. He describes it as a bright red bleeding. A transvaginal ultrasound was performed which revealed hypoechoic area within the cervix suspicious for cervical neoplasm, which measures 1.8 cm. Endometrial thickening which could represent endometrial cancer or endometrial hyperplasia. Probable uterine lipoma. Suboptimal visualization of the ovaries, limited. CAT scan of the abdomen showed probable fibroid uterus, cholelithiasis, distended gallbladder. Left adrenal mass indeterminate renal lesions. Chest x-ray on admission showed cardiomegaly and possible underlying COPD. Correlation recommended to exclude mild pulmonary vascular congestion. EKG on arrival here showed atrial fibrillation with a rapid ventricular response. Blood pressure 118/70 this morning with a heart rate in the 60s, 91% on room air. White blood cell count 6.1, hemoglobin 11.2, platelet count 2:30. INR on admission 1.1. Sodium 140, potassium 4.3, BUN 29 and creatinine 1.1. Troponin 0.012 with a BNP of 1990. Total for occult blood was negative. Large blood in the urine. 09/01/2018 The patient was seen and evaluated by the REGIONAL MANAGER service, the clearance was given to resume the Eliquis which was started yesterday at 5 mg one tablet by mouth twice a day. Patient continues to be in atrial fibrillation, her heart rate is under adequate control. Echo with Doppler study was performed which revealed an ejection fraction of 50-55%, mild to moderate mitral regurgitation. Blood pressure 132/60 with a heart rate of 98 this morning. Objective - Vital Signs Vital signs: Vital Signs Temp 98.2 F 09/01/18 11:06 Pulse 92 09/01/18 11:07 Resp 18 09/01/18 11:07 BP 133/67 09/01/18 11:06 Pulse Ox 95 09/01/18 11:06 Intake & Output 08/31/18 09/01/18 09/01/18 18:59 06:59 18:59 Intake Total 1580 260 Output Total 1600 400 Balance 1580 -1600 -140 Weight 105.6 kg Intake: IV 600 Sodium Chloride 0.9% 1, 600 000 ml @ 50 mls/hr IV . Q20H [facility] Rx#:[id number] Oral 980 260 Output: Urine 1600 400 Other: Voiding Method Toilet Toilet Toilet # Voids 1 1 1 - Exam PHYSICAL EXAMINATION: GENERAL: 73-year-old female in no acute distress at the time of my examination HEENT: Head is atraumatic, normocephalic. Pupils equal, round. Sclera anicteric. Conjunctiva are clear. Mucous membranes of the mouth are moist. Neck is supple. There is no elevated jugular venous pressure. No carotid bruit is heard. HEART EXAMINATION: Heart S1 and S2 irregularly irregular CHEST EXAMINATION: Lungs are clear with fine crackles heard to bilateral bases. ABDOMEN: Soft, nontender. Bowel sounds are heard. No organomegaly noted. EXTREMITIES: 2+ peripheral pulses with no evidence of peripheral edema and no calf tenderness noted. NEUROLOGIC patient is awake, alert and oriented 3 . . - Labs CBC & Chem 7: 09/01/18 09:05 09/01/18 09:05 Labs: Abnormal Lab Results - Last 24 Hours (Table) 09/01/18 09/01/18 Range/Units 00:30 09:05 BUN 21 H (7-17) mg/dL Creatinine 1.10 H (0.52-1.04) mg/dL Glucose 210 H (74-99) mg/dL POC Glucose (mg/dL) 149 H (75-99) mg/dL Microbiology - Last 24 Hours (Table) 08/30/18 17:45 Urine Culture - Final Urine,Voided Assessment and Plan Plan: Assessment and plan #1 vaginal bleeding, area within the cervix is suspicious for cervical neoplasm. REGIONAL MANAGER consultation requested. #2 atrial fibrillation with rapid ventricular response. Patient has known chronic persistent atrial fibrillation, on Coumadin for anticoagulation. However the patient does not regularly take her Coumadin or have INRs checked regularly. INR on admission 1.1. #3 prior history of smoking #4 hypertension #5 hyperlipidemia #6 prior CVA #7 no documented coronary artery disease, patient did undergo a cardiac catheterization in March 2017 because of an abnormal stress test, she was f ound to have normal coronary arteries at that time. Plan From cardiology's perspective, we will continue the Eliquis 5 mg one tablet by mouth twice a day along with the rest of her medications. We will make her a follow-up appointment in the office post discharge. DNP note has been reviewed, I agree with a documented findings and plan of care. Patient was seen and examined.
[2018-09-01] MEDS: FUROSEMIDE 40 MG TAB PO SCH (17:38)
[2018-09-01] MEDS: METOPROLOL TARTRATE 50 MG TAB PO SCH (21:01)
--- NOTE | 2018-09-01 23:10 | PN ---
PROGRESS NOTE DATE OF SERVICE: 09/01/2018 PRESENTING COMPLAINT: Heart racing, short of breath. INTERVAL HISTORY: This patient presented with heart racing, atrial fibrillation with rapid ventricular rate. In the referral coordinator the patient went into rapid ventricular atrial fibrillation with shortness of breath. A-Team was called out. Dr. Dea May was consulted. The patient did get IV Lasix. Patient is doing better this morning. Lopressor dose was further increased. Lying in bed. Did tolerate some diet. Does feel a bit tired. The patient is also on Eliquis. REVIEW OF SYSTEMS: Done for constitutional, cardiovascular, GI, pulmonary; relevant findings as above. CURRENT MEDICATIONS: Reviewed. They include: 1. Lasix 40 mg b.i.d. 2. Lopressor 100 mg b.i.d. 3. Isoptin 80 mg b.i.d. PHYSICAL EXAMINATION: Temperature 98.2, pulse 92, respiration 18, blood pressure 133/67, pulse ox 95% on room air. GENERAL APPEARANCE: Lying in bed, tired-appearing. EYES: Pupils equal. Conjunctivae normal. NECK: JVD not raised. Mass not palpable. RESPIRATORY: Effort normal. Lungs are clear. CARDIOVASCULAR: Heart sounds irregular. No edema. ABDOMEN: Soft, non-tender. Liver and spleen not palpable. PSYCHIATRY: Alert and oriented x3. Mood and affect normal. INVESTIGATIONS: White count 9.8, hemoglobin 13.1, potassium 4.0. BUN 21, creatinine 1.10. Telemetry did show run of atrial fibrillation with rapid ventricular rate in the early hours of this morning. ASSESSMENT: 1. Persistent atrial fibrillation with a burst of rapid ventricular rate requiring increased dose of beta roshni. 2. Acute congestive heart failure exacerbation from preserved left ventricular function; presented with atrial fibrillation with rapid ventricular rate. 3. Vaginal bleeding with abnormal thickened endometrium, for outpatient followup with Dr. Hernandez. 4. Obesity; body mass index 35.6. PLAN: Patient's dose of beta roshni has been increased. Follow electrolytes closely and watch for vaginal bleeding. She has had no further episode. MMODL / IJN: [id number] /
[2018-09-02 06:32] LABS: Potassium 3.8 mmol/L (3.5-5.1)
[2018-09-02] MEDS: FUROSEMIDE 40 MG TAB PO SCH ×2 (09:27→15:03)
[2018-09-02] MEDS: METOPROLOL TARTRATE 50 MG TAB PO SCH (09:27)
[2018-09-02] MEDS: APIXABAN 5 MG TAB PO SCH (09:27)
[2018-09-02] MEDS: VERAPAMIL 80 MG TAB PO SCH (09:27)
--- NOTE | 2018-09-02 13:04 | P.PN ---
Subjective Progress Note Date: 09/02/18 This is a 73-year-old female with known history of chronic persistent atrial fibrillation, on Coumadin for anticoagulation however she has been known to be noncompliant with taking the Coumadin and having the INRs checked, history of prior myocardial infarction, hyperlipidemia, prior CVA, prior history of smoking, hypertension, she also underwent a cardiac catheterization in March 2017 because of a positive stress test and was found to have normal coronary arteries. She presents to the hospital on this occasion with symptoms of vaginal bleeding. According to the patient she had noticed some vaginal bleeding off and on since January or February of last year, however for the past 3 or 4 days it has been persistent and constant. He describes it as a bright red bleeding. A transvaginal ultrasound was performed which revealed hypoechoic area within the cervix suspicious for cervical neoplasm, which measures 1.8 cm. Endometrial thickening which could represent endometrial cancer or endometrial hyperplasia. Probable uterine lipoma. Suboptimal visualization of the ovaries, limited. CAT scan of the abdomen showed probable fibroid uterus, cholelithiasis, distended gallbladder. Left adrenal mass indeterminate renal lesions. Chest x-ray on admission showed cardiomegaly and possible underlying COPD. Correlation recommended to exclude mild pulmonary vascular congestion. EKG on arrival here showed atrial fibrillation with a rapid ventricular response. Blood pressure 118/70 this morning with a heart rate in the 60s, 91% on room air. White blood cell count 6.1, hemoglobin 11.2, platelet count 2:30. INR on admission 1.1. Sodium 140, potassium 4.3, BUN 29 and creatinine 1.1. Troponin 0.012 with a BNP of 1990. Total for occult blood was negative. Large blood in the urine. 09/01/2018 The patient was seen and evaluated by the FIELD RESEARCH ASSISTANT service, the clearance was given to resume the Eliquis which was started yesterday at 5 mg one tablet by mouth twice a day. Patient continues to be in atrial fibrillation, her heart rate is under adequate control. Echo with Doppler study was performed which revealed an ejection fraction of 50-55%, mild to moderate mitral regurgitation. Blood pressure 132/60 with a heart rate of 98 this morning. 09/02/2018 Patient was seen and examined this morning, overall doing well. Hemodynamically stable. From our perspective she may be able to be discharged once cleared by primary. We will make her a follow-up appointment in the office post discharge. Objective - Vital Signs Vital signs: Vital Signs Temp 98.5 F 09/02/18 08:00 Pulse 96 09/02/18 08:00 Resp 19 09/02/18 08:00 BP 119/85 09/02/18 08:00 Pulse Ox 92 L 09/02/18 04:00 Intake & Output 09/01/18 09/02/18 09/02/18 18:59 06:59 18:59 Intake Total 680 10 230 Output Total 1400 200 Balance -720 -190 230 Weight 104.7 kg Intake: IV 20 10 Invasive Line 1 20 10 Oral 660 230 Output: Urine 1400 200 Other: Voiding Method Toilet Toilet # Voids 2 1 - Exam PHYSICAL EXAMINATION: GENERAL: 73-year-old female in no acute distress at the time of my examination HEENT: Head is atraumatic, normocephalic. Pupils equal, round. Sclera anicteric. Conjunctiva are clear. Mucous membranes of the mouth are moist. Neck is supple. There is no elevated jugular venous pressure. No carotid bruit is heard. HEART EXAMINATION: Heart S1 and S2 irregularly irregular CHEST EXAMINATION: Lungs are clear with fine crackles heard to bilateral bases. ABDOMEN: Soft, nontender. Bowel sounds are heard. No organomegaly noted. EXTREMITIES: 2+ peripheral pulses with no evidence of peripheral edema and no calf tenderness noted. NEUROLOGIC patient is awake, alert and oriented 3 . . - Labs CBC & Chem 7: 09/01/18 09:05 09/02/18 05:53 Labs: Abnormal Lab Results - Last 24 Hours (Table) 09/02/18 Range/Units 05:53 BUN 23 H (7-17) mg/dL Creatinine 1.18 H (0.52-1.04) mg/dL Glucose 117 H (74-99) mg/dL Assessment and Plan Plan: Assessment and plan #1 vaginal bleeding, area within the cervix is suspicious for cervical neoplasm. FIELD RESEARCH ASSISTANT consultation requested. #2 atrial fibrillation with rapid ventricular response. Patient has known chronic persistent atrial fibrillation, on Coumadin for anticoagulation. However the patient does not regularly take her Coumadin or have INRs checked regularly. INR on admission 1.1. #3 prior history of smoking #4 hypertension #5 hyperlipidemia #6 prior CVA #7 no documented coronary artery disease, patient did undergo a cardiac catheterization in March 2017 because of an abnormal stress test, she was found to have normal coronary arteries at that time. Plan From cardiology's perspective, we will continue the Eliquis 5 mg one tablet by mouth twice a day along with the rest of her medications. We will make her a follow-up appointment in the office post discharge. DNP note has been reviewed, I agree with a documented findings and plan of care. Patient was seen and examined.
[2018-09-02 13:31] VITALS: BP 131/59; PULSE 68; RESP 17; TEMP 97.7
--- NOTE | 2018-09-02 14:48 | CDI ---
Documentation Clarification Form Date: 09/02/2018 2:29:07 PM From: Concepcion Dowell CCS, CCDS Admit Date: 08/30/2018 4:43:00 PM Patient Name: Carli Higuera Visit Number: [id number] Discharge Date: ATTENTION: The Clinical Documentation Specialists (CDI) and [facility] Coding Staff appreciate your assistance in clarifying documentation. Please respond to the clarification below the line at the bottom and electronically sign. The CDI & [facility] Coding staff will review the response and follow-up if needed. Please note: Queries are made part of the Legal Health Record. If you have any questions, please contact the author of this message via ITS. Dr. Biju Sanabria: Per the 09/01 attending progress note: "Acute congestive heart failure exacerbation from preserved left ventricular. function; presented with atrial fibrillation with rapid ventricular rate." Patient became SOB in morning of 09/01. Congestive heart failure has not been documented by cardiology. History/Risk Factors: Atrial Fibrillation, Stroke w/complete resolution ', Hyperlipidemia, ID, Questionable DM. Clinical Indicators: Patient presented with racing heart & vaginal bleeding. 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 VS: P 144 - 155 - 124 - 119; PO 94 RA. BNP: 1990 Echocardiogram Results: Mild LVH, Left ventricular systolic function low normal w/EF 50-55%. Mild aortic regurgitation, Mild-moderate MR, Mild TR, moderate pulmonary hypertension. Chest X Ray 08/30: Cardiomegaly & possible COPD. Chronic interstitial prominence. Correlate to exclude mild pulmonary vascular congestion. No pleural effusion. Tx:: Day #1: IV fluid bolus, IV Cardizem drip, IV PPI, IV fluid rate 75. Day #3: IV Lasix started. In your professional opinion, can you please clarify the acuity and type of CHF if known? Systolic Heart Failure: o Acute o Chronic o Acute on Chronic Diastolic Heart Failure: o Acute o Chronic o Acute on Chronic Systolic & Diastolic Heart Failure: o Acute o Chronic o Acute on Chronic Heart Failure Unable to Determine Other, please specify see dc summary (Last Revision: September 2017) CARLOZD
--- NOTE | 2018-09-03 05:16 | DS ---
DISCHARGE SUMMARY DATE OF ADMISSION: August 30, 2018. DATE OF DISCHARGE: September 02, 2018. FINAL DIAGNOSES: 1. Persistent atrial fibrillation, uncontrolled, POA. 2. Acute congestive heart failure exacerbation from preserved LV function/diastolic dysfunction precipitated by atrial fibrillation. 3. Vaginal bleeding from abnormal thickened endometrium. 4. Obesity BMI 35.6. 5. Cholelithiasis asymptomatic. 6. Colonic diverticulosis asymptomatic. 7. Intrarenal adrenal nonspecific mass to be followed up by PCP as an outpatient. HOSPITAL COURSE: This patient has been having some vaginal bleeding, was getting worse, decided to come to the hospital. Also had atrial fibrillation with uncontrolled rate. The patient had a bout of acute congestive heart failure. 2D echo showed preserved LV function. Heart rate was better controlled by the time of discharge. The patient was okayed by Cardiology to be discharged. The patient was seen by Dr. Hernandez from [facility]. The patient will follow with her in the office. The patient's Coumadin was switched over to Eliquis. Had no further bleeding in the hospital. The patient also was seen by Dr. Stanford felt that the gallstones were asymptomatic. The patient doing well at the time of discharge. PHYSICAL EXAMINATION: Temperature 97.7, pulse 68, respirations 17, blood pressure 113/59, pulse ox 93 percent on room air. CARDIOVASCULAR: Heart sounds irregular. ABDOMEN: Soft nontender. INVESTIGATIONS: Potassium 3.8, BUN 23, creatinine 1.18. 2D echo showed preserved LV function. Abdominal pelvic CT scan and transvaginal ultrasound showed a thickened endometrium. Care was discussed with the patient. Questions were answered. FOLLOW UP: Dr. Tristin Montana on September 09, 2018, for Dr. Maddox on September 09, 2018, Dr. Hernandez on September 13, 2018, Dr. Stanford on September 08, 2018. [facility] on September 05, 2018. Discontinued medication: Coumadin. DISCHARGE MEDICATIONS: 1. Eliquis 5 mg p.o. b.i.d. 2. Lasix 40 mg b.i.d. 3. Lopressor 100 mg p.o. b.i.d. 4. Isoptin 80 mg b.i.d. Copy to Dr. Maddox. MMODL / IJN: [id number] /
== END 2018-09-02 16:43 | disposition home or self-care (01) | DRG 308 ==
LOC: EC 13:46 → 3SCARD 16:43
PROVIDERS: ADMIT Hospitalist; ATTEND Hospitalist
DX: I48.1 Persistent atrial fibrillation (principal); I50.33 Acute on chronic diastolic (congestive) heart failure; I11.0 Hypertensive heart disease with heart failure; C54.1 Malignant neoplasm of endometrium; I34.0 Nonrheumatic mitral (valve) insufficiency; N95.0 Postmenopausal bleeding; E78.5 Hyperlipidemia, unspecified; Z68.35 Body mass index [BMI] 35.0-35.9, adult; E66.9 Obesity, unspecified; D25.9 Leiomyoma of uterus, unspecified; K80.20 Calculus of gallbladder without cholecystitis without obstruction; K57.30 Diverticulosis of large intestine without perforation or abscess without bleeding; N85.00 Endometrial hyperplasia, unspecified; E27.9 Disorder of adrenal gland, unspecified; I25.2 Old myocardial infarction; Z91.14 Patient's other noncompliance with medication regimen; Z86.73 Personal history of transient ischemic attack (TIA), and cerebral infarction without residual deficits; Z79.01 Long term (current) use of anticoagulants; Z79.899 Other long term (current) drug therapy; Z87.81 Personal history of (healed) traumatic fracture; Z87.891 Personal history of nicotine dependence; Z82.49 Family history of ischemic heart disease and other diseases of the circulatory system
CPT/HCPCS: 36415; 71046; 74177; 76830; 80048; 80053; 81001; 82272; 83880; 84443; 84484; 85025; 85027; 85610; 85730; 86850; 86900; 86901; 87086; 93005; 93306; 96365; 96366; 96375; 96376; 99291

== ENCOUNTER 2018-09-19 15:05 | Emergency (ER) | payer MEDICARE, OTHER ==
--- NOTE | 2018-09-19 15:41 | ED ---
General Adult HPI - General Chief complaint: Shortness of Breath Stated complaint: hypotension Time Seen by Provider: 09/19/18 15:05 Source: EMS, RN notes reviewed Mode of arrival: EMS Limitations: no limitations - History of Present Illness Initial comments: This is a 73-year-old female presents emergency department from primary medical care doctor's office. According to EMS and brought in because the patient showed up at the office and had rapid ventricular response in the low blood pressure at the office. According to EMS got a normal blood pressure in route and the patient wasn't A. fib but only about 110 beats a minute. Patient herself is confused as to why she is here she states she has been a little lightheaded on occasion and may be some shortness of breath with any exertion. Patient denies chest pain or palpitations. Patient denies any recent fever chills or cough. Patient denies any abdominal pain patient denies any recent in jury or trauma. Patient denies any headache patient denies numbness weakness. - Related Data Previous Rx's Medication Instructions Recorded Apixaban [Eliquis] 5 mg PO BID #60 tab 09/02/18 Furosemide [Lasix] 40 mg PO BID@0900,1600 #60 tab 09/02/18 Metoprolol Tartrate [Lopressor] 100 mg PO BID #0 tab 09/02/18 Verapamil [Isoptin] 80 mg PO BID #60 tab 09/02/18 Allergies Allergy/AdvReac Type Severity Reaction Status Date / Time No Known Allergies Allergy Verified 09/19/18 15:21 Review of Systems ROS Statement: Those systems with pertinent positive or pertinent negative responses have been documented in the HPI. ROS Other: All systems not noted in ROS Statement are negative. Past Medical History Past Medical History: Atrial Fibrillation, CVA/TIA, Hyperlipidemia, Myocardial Infarction ([place]) Additional Past Medical History / Comment(s): 07/27/17 FALL'LT HIP FX. OTHER H X"BOARDERLINE DIABETIC- NO MEDS BUT CHECKS BS ONCE A DAY,CVA/TIA 2011 NO RESIDUAL EEFECTS, RT ANKLE BROKEN-(SX DONE HAD PLATE), PAST STRESS TEST. Last Myocardial Infarction Date:: 2009 History of Any Multi-Drug Resistant Organisms: None Reported Past Surgical History: Heart Catheterization, Orthopedic Surgery, Tonsillectomy Additional Past Surgical History / Comment(s): ORIF RT ANKLE HAS PLATE. Past Anesthesia/Blood Transfusion Reactions: No Reported Reaction Past Psychological History: No Psychological Hx Reported Smoking Status: Former smoker Past Alcohol Use History: None Reported Past Drug Use History: None Reported - Past Family History Mother Family Medical History: No Reported History Additional Family Medical History / Comment(s): FROM ANUERYSM Father Family Medical History: No Reported History General Exam - General Exam Comments Initial Comments: GENERAL: Patient is well-developed and well-nourished. Patient is nontoxic and well- hydrated and is in no acute distress. ENT: Neck is soft and supple. No significant lymphadenopathy is noted. Oropharynx is clear. Moist mucous membranes. Neck has full range of motion without eliciting any pain. EYES: The sclera were anicteric and conjunctiva were pink and moist. Extraocular movements were intact and pupils were equal round and reactive to light. Eyelids were unremarkable. PULMONARY: Unlabored respirations. Good breath sounds bilaterally. No audible rales rhonchi or wheezing was noted. CARDIOVASCULAR: Patient is a regular rate and rhythm at about 110 beats a minute ABDOMEN: Soft and nontender with normal bowel sounds. No palpable organomegaly was noted. There is no palpable pulsatile mass. SKIN: Skin is clear with no lesions or rashes and otherwise unremarkable. NEUROLOGIC: Patient is alert and oriented 2. Cranial nerves II through XII are grossly intact. Motor and sensory are also intact. Normal speech, volume and content. Symmetrical smile. MUSCULOSKELETAL: Normal extremities with adequate strength and full range of motion. No lower extremity swelling or edema. No calf tenderness. LYMPHATICS: No significant lymphadenopathy is noted PSYCHIATRIC: Normal psychiatric evaluation. Limitations: no limitations Course Vital Signs 09/19/18 09/19/18 15:09 16:52 Temperature 97.9 F Pulse Rate 95 85 Respiratory 18 16 Rate Blood Pressure 130/63 113/70 O2 Sat by Pulse 98 97 Oximetry Medical Decision Making - Medical Decision Making EKG shows atrial for ablation with rapid ventricular response at 102 beats a minute QRS is 80 QT interval 338 QTC is 442. Patient's EKG shows no ST segment elevation or depression or T wave abnormalities are noted. Patient refused to give us urine or be catheterized. At this time the patient was demanding to go home. Patient's blood pressure was always within normal range while in the emergency department. On my last visit to the patient's room the patient's heart rate was in the 80s. - Lab Data Result diagrams: 09/19/18 15:45 09/19/18 15:45 Lab Results 09/19/18 09/19/18 09/19/18 Range/Units 15:20 15:20 15:45 WBC 6.5 (3.8-10.6) k/uL RBC 3.55 L (3.80-5.40) m/uL Hgb 11.0 L (11.4-16.0) gm/dL Hct 32.9 L (34.0-46.0) % MCV 92.5 (80.0-100.0) fL MCH 31.0 (25.0-35.0) pg MCHC 33.5 (31.0-37.0) g/dL RDW 13.7 (11.5-15.5) % Plt Count 255 (150-450) k/uL Neutrophils % 74 % Lymphocytes % 15 % Monocytes % 6 % Eosinophils % 3 % Basophils % 0 % Neutrophils # 4.9 (1.3-7.7) k/uL Lymphocytes # 1.0 (1.0-4.8) k/uL Monocytes # 0.4 (0-1.0) k/uL Eosinophils # 0.2 (0-0.7) k/uL Basophils # 0.0 (0-0.2) k/uL PT 12.3 H (9.0-12.0) sec INR 1.2 H (<1.2) APTT 22.5 (22.0-30.0) sec Sodium (137-145) mmol/L Potassium (3.5-5.1) mmol/L Chloride (98-107) mmol/L Carbon Dioxide (22-30) mmol/L Anion Gap mmol/L BUN (7-17) mg/dL Creatinine (0.52-1.04) mg/dL Est GFR (CKD-EPI)AfAm (>60 ml/min/1.73 sqM) Est GFR (CKD-EPI)NonAf (>60 ml/min/1.73 sqM) Glucose (74-99) mg/dL Calcium (8.4-10.2) mg/dL Magnesium (1.6-2.3) mg/dL Total Bilirubin (0.2-1.3) mg/dL AST (14-36) U/L ALT (9-52) U/L Alkaline Phosphatase (38-126) U/L Troponin I <0.012 (0.000-0.034) ng/mL Total Protein (6.3-8.2) g/dL Albumin (3.5-5.0) g/dL 09/19/18 Range/Units 15:45 WBC (3.8-10.6) k/uL RBC (3.80-5.40) m/uL Hgb (11.4-16.0) gm/dL Hct (34.0-46.0) % MCV (80.0-100.0) fL MCH (25.0-35.0) pg MCHC (31.0-37.0) g/dL RDW (11.5-15.5) % Plt Count (150-450) k/uL Neutrophils % % Lymphocytes % % Monocytes % % Eosinophils % % Basophils % % Neutrophils # (1.3-7.7) k/uL Lymphocytes # (1.0-4.8) k/uL Monocytes # (0-1.0) k/uL Eosinophils # (0-0.7) k/uL Basophils # (0-0.2) k/uL PT (9.0-12.0) sec INR (<1.2) APTT (22.0-30.0) sec Sodium 141 (137-145) mmol/L Potassium 4.3 (3.5-5.1) mmol/L Chloride 110 H (98-107) mmol/L Carbon Dioxide 21 L (22-30) mmol/L Anion Gap 10 mmol/L BUN 42 H (7-17) mg/dL Creatinine 1.58 H (0.52-1.04) mg/dL Est GFR (CKD-EPI)AfAm 37 (>60 ml/min/1.73 sqM) Est GFR (CKD-EPI)NonAf 32 (>60 ml/min/1.73 sqM) Glucose 136 H (74-99) mg/dL Calcium 8.4 (8.4-10.2) mg/dL Magnesium 1.9 (1.6-2.3) mg/dL Total Bilirubin 1.3 (0.2-1.3) mg/dL AST 17 (14-36) U/L ALT 19 (9-52) U/L Alkaline Phosphatase 59 (38-126) U/L Troponin I (0.000-0.034) ng/mL Total Protein 5.9 L (6.3-8.2) g/dL Albumin 2.9 L (3.5-5.0) g/dL Disposition Clinical Impression: Lightheaded, History of atrial fibrillation, Dehydration Disposition: HOME SELF-CARE Condition: Good Instructions (If sedation given, give patient instructions): Lightheadedness (ED) Is patient prescribed a controlled substance at d/c from ED?: No Referrals: Dada Maddox DO [Primary Care Provider] - 1-2 days Time of Disposition: 16:59
[2018-09-19 16:02] LABS: Basophils % (A) 0 %; Eosinophils # (A) 0.2 k/uL (0-0.7); Eosinophils % (A) 3 %; HCT 32.9 % (34.0-46.0); Lymphocytes % (A) 15 %; MCHC 33.5 g/dL (31.0-37.0); MCV 92.5 fL (80.0-100.0); Mean Platelet Volume 7.7; Monocytes # (A) 0.4 k/uL (0-1.0); Monocytes % (A) 6 %; Neutrophils # (A) 4.9 k/uL (1.3-7.7); Neutrophils % (A) 74 %; Platelet Count 255 k/uL (150-450); RBC 3.55 m/uL (3.80-5.40); RDW 13.7 % (11.5-15.5); WBC 6.5 k/uL (3.8-10.6)
[2018-09-19 16:12] LABS: Albumin 2.9 g/dL (3.5-5.0); Calcium 8.4 mg/dL (8.4-10.2); Magnesium 1.9 mg/dL (1.6-2.3); Potassium 4.3 mmol/L (3.5-5.1); Total Bilirubin 1.3 mg/dL (0.2-1.3); Total Protein 5.9 g/dL (6.3-8.2)
[2018-09-19 16:14] LABS: INR 1.2 (<1.2); Partial Thromboplastin Time 22.5 sec (22.0-30.0); Prothrombin Time 12.3 sec (9.0-12.0)
--- NOTE | 2018-09-19 16:18 | XR ---
EXAMINATION TYPE: XR chest 2V DATE OF EXAM: 09/19/2018 COMPARISON: 08/30/2018 HISTORY: Shortness of breath TECHNIQUE: Frontal and lateral views of the chest are obtained. FINDINGS: Scattered senescent parenchymal changes noted. Hyperinflation compatible with COPD. No evidence for infiltrate. No evidence for atelectasis. Heart size is stable. Mediastinal structures are stable and grossly unremarkable. No evidence for hilar prominence. Degenerative changes dorsal spine. IMPRESSION: 1. No evidence for acute pulmonary disease.
[2018-09-19] MEDS ORDERED: SODIUM CHLORIDE 0.9% 500 ML 500 ML IV ONE (16:40)
[2018-09-19 17:44] VITALS: BP 126/70; PULSE 83; RESP 18; TEMP 97.8
== END 2018-09-19 17:35 | disposition home or self-care (01) ==
LOC: EC 15:05
DX: E86.0 Dehydration (principal); R42 Dizziness and giddiness; R06.02 Shortness of breath; I25.2 Old myocardial infarction; Z86.79 Personal history of other diseases of the circulatory system; Z86.73 Personal history of transient ischemic attack (TIA), and cerebral infarction without residual deficits; Z95.5 Presence of coronary angioplasty implant and graft; Z87.891 Personal history of nicotine dependence; Z53.29 Procedure and treatment not carried out because of patient's decision for other reasons
CPT/HCPCS: 36415; 71046; 80053; 83735; 84484; 85025; 85610; 85730; 93005; 99285

== ENCOUNTER → 2018-11-23 | Outpatient (CLI) | payer MEDICARE, OTHER ==
--- NOTE | 2018-11-23 15:13 | CT ---
EXAMINATION TYPE: CT ChestAbdPelvis wo/w con DATE OF EXAM: 11/23/2018 COMPARISON: Prior CT abdomen pelvis 08/30/2018 HISTORY: Endometrial ca CT DLP: 2942 mGycm Automated exposure control for dose reduction was used. CONTRAST: CT scan of the chest, abdomen and pelvis is performed with Oral Contrast and without and with IV Cont rast, patient injected with 80 mL of Isovue 300. FINDINGS: LUNGS: The lungs are grossly clear, there is no concerning parenchymal mass or nodule identified. T here is no pleural effusion or pneumothorax seen. The tracheobronchial tree is patent. MEDIASTINUM: There are no greater than 1 cm hilar or mediastinal lymph nodes. No pericardial effusi on is seen. There are some calcified right hilar nodes. The heart is enlarged. AORTA: At the root of the aorta measures approximately 4.2 cm.. OTHER: No additional significant abnormality is seen. LIVER/GB: No significant change is appreciated, large gallstone again present measuring 2.4 cm at the forest region with at multiple additional gallstones present in the fundus, the gallbladder is disten ded, question whether the gallstone may have eroded, may be extrinsic to the gallbladder within the p ortal region, stable finding, there appears to be some extrinsic mass effect. PANCREAS: No significant abnormality is seen. SPLEEN: No significant abnormality is seen. ADRENALS: No significant interval change is seen, low-attenuation left adrenal mass again seen. KIDNEYS: Large cystic focus in exophytic location at the right upper kidney with internal septation, additional abnormal cortical cysts are again noted REPRODUCTIVE ORGANS: Again noted is a lobular appearance to the uterus. BOWEL: Diverticular changes are present within the sigmoid colon FREE AIR: No Free Air visible. ASCITES: Possible minimal fluid in the pelvis shows a similar appearance. RETROPERITONEAL ADENOPATHY: No retroperitoneal adenopathy is seen. LYMPH NODES: No greater than 1 cm abdominal or pelvic lymph nodes are appreciated. URINARY BLADDER: No significant abnormality is seen. PELVIC ADENOPATHY: None visualized. OSSEOUS STRUCTURES: Postop changes to the left hip causes streak artifact could limit sensitivity. D egenerative change, facet arthropathy again noted IMPRESSION: Stable abnormalities as described.
== END | disposition home or self-care (01) ==
LOC: RADCTMAIN 11:17
PROVIDERS: ATTEND Obstetrics & Gynecology
DX: C54.1 Malignant neoplasm of endometrium (principal); N28.1 Cyst of kidney, acquired; K80.20 Calculus of gallbladder without cholecystitis without obstruction
CPT/HCPCS: 82565; 84520; 71270; 74178; 36415; Q9967 ×2

== ENCOUNTER 2019-11-06 12:45 | Inpatient (IN) | payer MEDICARE, OTHER ==
[2019-11-06] MEDS ORDERED: SODIUM CHLORIDE 0.9% 1,000 ML IV STA (13:09)
[2019-11-06] MEDS ORDERED: METOCLOPRAMIDE 5 MG/ML 2 ML VIAL IVP STA (13:09)
[2019-11-06] MEDS ORDERED: MECLIZINE 12.5 MG TAB PO STA (13:09)
--- NOTE | 2019-11-06 13:14 | ED ---
General Adult HPI - General Chief complaint: Dizziness Stated complaint: Fall Time Seen by Provider: 11/06/19 12:50 Source: EMS Mode of arrival: EMS Limitations: no limitations - History of Present Illness Initial comments: Dictation was produced using [employer] dictation software. please excuse any grammatical, word or spelling errors. This patient was cared for during a federal and state declared state of emergency secondary to Covid 19 Chief Complaint: 74-year-old female with past medical history of atrial fibrillation, coronary artery disease, dyslipidemia presents with dizziness History of Present Illness: 74-year-old female presents with chief complaint of dizziness. Patient has history of atrial fibrillation, coronary artery disease. She was at home using her power chair. She went back into the house after a short stroll outside when she felt so dizzy that she couldn't get out of her chair. Patient states she slid out of her chair to the ground. She called EMS. Patient has no complete at this time. She feels slightly dizzy while at rest at bedside. Denies sensation of the room spinning. She does report that her symptoms are worsened with movement. She reports that she takes L Ubaldo for her atrial fibrillation. She states she's complaint with all her medications. The ROS documented in this emergency department record has been reviewed and confirmed by me. Those systems with pertinent positive or negative responses have been documented in the HPI. All other systems are other negative and/or noncontributory. PHYSICAL EXAM: General Impression: Alert and oriented x3, not in acute distress HEENT: Normocephalic atraumatic, extra-ocular movements intact, pupils equal and reactive to light bilaterally, dry mucous membranes. Cardiovascular: Heart regular rate and rhythm Chest: Able to complete full sentences, no retractions, no tachypnea Abdomen: abdomen soft, non-tender, non-distended, no organomegaly Musculoskeletal: Pulses present and equal in all extremities, no peripheral edema Motor: no focal deficits noted Neurological: CN II-XII grossly intact, no focal motor or sensory deficits noted Skin: Intact with no visualized rashes Psych: Normal affect and mood ED course: 74-year-old female with past medical history of atrial fibrillation. Signs upon arrival shows heart rate of 131, rest of vital signs within acceptable limits. Medications were reviewed. Patient is unable course, verapamil, Lasix and metoprolol. Physical examination does not reveal any traumatic injuries. There is concern of benign positional vertigo.Laboratory evaluation obtained. CBC, coag panel unremarkable. Metabolic panel. CV patient's baseline. Troponin is negative. Given that patient felt that workup was pursued. Computed tomography scan of the brain C-spine shows no acute processes. Pelvis x-ray chest x-ray are unremarkable. Patient's heart rate is improved after intravenous fluids going from 150 to 130. Patient started on Cardizem. Clinical presentation concerning for A. fib with rapid ventricular rate. Patient appears comfortable at this time. She is given Zofran and Antivert for her dizziness. Discussed patient case with Dr. Torres who is willing to accept patients care. Cardiology consulted. EKG interpretation: Ventricular rate atrial fibrillation rapid ventricular rate, heart rate 127, QRS 90, QTC 427. No NE prolongation, no QTC prolongation, no ST or T-wave changes noted. - Related Data Previous Rx's Medication Instructions Recorded Apixaban [Eliquis] 5 mg PO BID #60 tab 09/02/18 Furosemide [Lasix] 40 mg PO BID@0900,1600 #60 tab 09/02/18 Metoprolol Tartrate [Lopressor] 100 mg PO BID #0 tab 09/02/18 Verapamil [Isoptin] 80 mg PO BID #60 tab 09/02/18 Allergies Allergy/AdvReac Type Severity Reaction Status Date / Time No Known Allergies Allergy Verified 09/19/18 15:21 Review of Systems ROS Statement: Those systems with pertinent positive or pertinent negative responses have been documented in the HPI. ROS Other: All systems not noted in ROS Statement are negative. Past Medical History Past Medical History: Atrial Fibrillation, CVA/TIA, Hyperlipidemia, Myocardial Infarction ([place]) Additional Past Medical History / Comment(s): 07/27/17 FALL'LT HIP FX. 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 Last Myocardial Infarction Date:: 2009 History of Any Multi-Drug Resistant Organisms: None Reported Past Surgical History: Heart Catheterization, Orthopedic Surgery, Tonsillectomy Additional Past Surgical History / Comment(s): ORIF RT ANKLE HAS PLATE. Past Anesthesia/Blood Transfusion Reactions: No Reported Reaction Past Psychological History: No Psychological Hx Reported Smoking Status: Former smoker Past Alcohol Use History: None Reported Past Drug Use History: None Reported - Past Family History Mother Family Medical History: No Reported History Additional Family Medical History / Comment(s): FROM ANUERYSM Father Family Medical History: No Reported History General Exam Limitations: no limitations Course Vital Signs 11/06/19 11/06/19 11/06/19 12:50 13:07 14:59 Temperature 97.6 F Pulse Rate 150 H 131 H 133 H Respiratory 18 18 18 Rate Blood Pressure 153/116 125/106 144/83 O2 Sat by Pulse 96 98 98 Oximetry Medical Decision Making - Lab Data Result diagrams: 11/06/19 13:01 11/06/19 13:01 Lab Results 11/06/19 11/06/19 11/06/19 Range/Units 13:01 13:01 13:01 WBC 6.0 (3.8-10.6) k/uL RBC 4.07 (3.80-5.40) m/uL Hgb 12.5 (11.4-16.0) gm/dL Hct 40.3 (34.0-46.0) % MCV 99.0 (80.0-100.0) fL MCH 30.8 (25.0-35.0) pg MCHC 31.1 (31.0-37.0) g/dL RDW 13.1 (11.5-15.5) % Plt Count 206 (150-450) k/uL Neutrophils % 84 % Lymphocytes % 9 % Monocytes % 4 % Eosinophils % 3 % Basophils % 0 % Neutrophils # 5.0 (1.3-7.7) k/uL Lymphocytes # 0.5 L (1.0-4.8) k/uL Monocytes # 0.2 (0-1.0) k/uL Eosinophils # 0.2 (0-0.7) k/uL Basophils # 0.0 (0-0.2) k/uL PT 10.1 (9.0-12.0) sec INR 1.0 (<1.2) APTT 26.7 (22.0-30.0) sec Sodium 139 (137-145) mmol/L Potassium 4.2 (3.5-5.1) mmol/L Chloride 106 (98-107) mmol/L Carbon Dioxide 26 (22-30) mmol/L Anion Gap 7 mmol/L BUN 26 H (7-17) mg/dL Creatinine 1.31 H (0.52-1.04) mg/dL Est GFR (CKD-EPI)AfAm 46 (>60 ml/min/1.73 sqM) Est GFR (CKD-EPI)NonAf 40 (>60 ml/min/1.73 sqM) Glucose 167 H (74-99) mg/dL Plasma Lactic Acid [place] (0.7-2.0) mmol/L Calcium 9.2 (8.4-10.2) mg/dL Magnesium 2.1 (1.6-2.3) mg/dL Troponin I (0.000-0.034) ng/mL 11/06/19 11/06/19 Range/Units 13:01 13:01 WBC (3.8-10.6) k/uL RBC (3.80-5.40) m/uL Hgb (11.4-16.0) gm/dL Hct (34.0-46.0) % MCV (80.0-100.0) fL MCH (25.0-35.0) pg MCHC (31.0-37.0) g/dL RDW (11.5-15.5) % Plt Count (150-450) k/uL Neutrophils % % Lymphocytes % % Monocytes % % Eosinophils % % Basophils % % Neutrophils # (1.3-7.7) k/uL Lymphocytes # (1.0-4.8) k/uL Monocytes # (0-1.0) k/uL Eosinophils # (0-0.7) k/uL Basophils # (0-0.2) k/uL PT (9.0-12.0) sec INR (<1.2) APTT (22.0-30.0) sec Sodium (137-145) mmol/L Potassium (3.5-5.1) mmol/L Chloride (98-107) mmol/L Carbon Dioxide (22-30) mmol/L Anion Gap mmol/L BUN (7-17) mg/dL Creatinine (0.52-1.04) mg/dL Est GFR (CKD-EPI)AfAm (>60 ml/min/1.73 sqM) Est GFR (CKD-EPI)NonAf (>60 ml/min/1.73 sqM) Glucose (74-99) mg/dL Plasma Lactic Acid [place] 1.3 (0.7-2.0) mmol/L Calcium (8.4-10.2) mg/dL Magnesium (1.6-2.3) mg/dL Troponin I <0.012 (0.000-0.034) ng/mL Disposition Clinical Impression: Atrial fibrillation with RVR Disposition: ADMITTED IP TO THIS HOSP Condition: Fair Referrals: Dada Maddox DO [Primary Care Provider] - 1-2 days Decision Time: 15:18
[2019-11-06 13:18] LABS: Basophils % (A) 0 %; Eosinophils # (A) 0.2 k/uL (0-0.7); Eosinophils % (A) 3 %; HCT 40.3 % (34.0-46.0); HGB 12.5 gm/dL (11.4-16.0); Lymphocytes # (A) 0.5 k/uL (1.0-4.8); Lymphocytes % (A) 9 %; MCH 30.8 pg (25.0-35.0); MCHC 31.1 g/dL (31.0-37.0); Mean Platelet Volume 7.2; Monocytes # (A) 0.2 k/uL (0-1.0); Monocytes % (A) 4 %; Neutrophils % (A) 84 %; Platelet Count 206 k/uL (150-450); RBC 4.07 m/uL (3.80-5.40); RDW 13.1 % (11.5-15.5)
[2019-11-06 13:26] LABS: Partial Thromboplastin Time 26.7 sec (22.0-30.0); Prothrombin Time 10.1 sec (9.0-12.0)
[2019-11-06 13:30] LABS: Calcium 9.2 mg/dL (8.4-10.2); Magnesium 2.1 mg/dL (1.6-2.3); Potassium 4.2 mmol/L (3.5-5.1)
--- NOTE | 2019-11-06 14:08 | XR ---
EXAMINATION TYPE: XR chest 1V portable DATE OF EXAM: 11/06/2019 COMPARISON: 09/19/2018 HISTORY: Fall and chest pain TECHNIQUE: Single frontal view of the chest is obtained. FINDINGS: Chronic interstitial prominence. There is no focal air space opacity, pleural effusion, or pneumothorax seen. The cardiac silhouette size is enlarged. The osseous structures are intact. Kno wn dilatation of the aortic root is not well visualized on chest x-ray. Diffuse osseous demineralizat ion seen. Skinfold overlies the right lung apex with pulmonary vasculature seen distal to this. IMPRESSION: Chronic findings with no acute process.
--- NOTE | 2019-11-06 14:08 | XR ---
EXAMINATION TYPE: XR pelvis AP view DATE OF EXAM: 11/06/2019 CLINICAL HISTORY: Fall and dizziness TECHNIQUE: A single AP view of the pelvis is obtained. COMPARISON: None. FINDINGS: There is no acute fracture/dislocation evident in the pelvis. Left femoral arthroplasty is seen although only partially visualized. The hip and sacroiliac joints appear symmetric and unremark able. There is diffuse osseous demineralization. The overlying soft tissue appears unremarkable. IMPRESSION: There is no acute fracture or dislocation in the pelvis.
[2019-11-06] MEDS ORDERED: DILTIAZEM DRIP BOLUS FROM BAG 1 MG SOLN IV ONE (14:16)
--- NOTE | 2019-11-06 14:22 | CT ---
EXAMINATION TYPE: CT brain cspine wo con DATE OF EXAM: 11/06/2019 COMPARISON: 01/17/2012 CT brain HISTORY: fall, bilateral hand numbness CT DLP: 1542 mGycm. Automated Exposure Control for Dose Reduction was Utilized. TECHNIQUE: CT scan of the head and cervical spine are performed without contrast. FINDINGS: There is encephalomalacia in the right frontal lobe with ex vacuo dilatation of the anterio r horn of the right lateral ventricle that is minimal. Patchy areas of hypoattenuation in the periven tricular and subcortical white matter also seen, likely on the basis of chronic microangiopathy. No a cute intracranial hemorrhage seen. Frontal predominant volume loss is noted. Cerumen is incidentally noted within the left external auditory canal. Visualized portions of the paranasal sinuses and masto id air cells are well aerated. Atherosclerosis is seen of the intracranial vasculature. Cervical spine is visualized in its entirety from C1 through upper thoracic levels and demonstrates s atisfactory alignment without evidence of acute fracture or dislocation. Prevertebral soft tissue ap pears within normal limits. Mild to moderate multilevel degenerative disc disease with multilevel an terior osteophytes, intervertebral disc space narrowing, endplate sclerosis, facet arthropathy, and u ncovertebral hypertrophy. Degenerative narrowing of the atlantodental interval seen. Facets remain al igned. The C1-C2 articulation is unremarkable. Lung apices demonstrate no evidence of pneumothorax a nd the visualized portions. Evaluation of the spinal canal is limited on CT. IMPRESSION: 1. There is no acute fracture or dislocation evident in the cervical spine. Moderate degenerative dis c disease of the cervical spine. 2. No acute intracranial hemorrhage, mass effect, or midline shift is seen. Encephalomalacia of the r ight frontal lobe from prior injury as seen on the exam of 2011. Moderate burden nonspecific white ma tter change, most commonly on the basis of chronic microangiopathy.
[2019-11-06] MEDS: DILTIAZEM 125 MG in SODIUM CHLORIDE 0.9% 100 ML IV SCH (14:54)
[2019-11-06] MEDS ORDERED: NALOXONE 0.4 MG/ML 1 ML VIAL IV PRN (15:15)
[2019-11-06] MEDS ORDERED: ACETAMINOPHEN TAB 325 MG TAB PO PRN (15:15)
[2019-11-06] MEDS: SODIUM CHLORIDE 0.9% 1,000 ML IV SCH (15:20)
[2019-11-06] MEDS: APIXABAN 5 MG TAB PO SCH (20:05)
[2019-11-06] MEDS ORDERED: ALPRAZolam 0.25 MG TAB PO PRN (20:17)
[2019-11-06] MEDS ORDERED: HYDROcodone/APAP 5-325MG 1 EACH TAB PO PRN (20:17)
--- NOTE | 2019-11-06 21:48 | HP ---
HISTORY AND PHYSICAL DATE OF SERVICE: 11/06/2019 CHIEF COMPLAINT: Fall and weakness and as well as atrial fibrillation with fast ventricular rate. HISTORY OF PRESENT ILLNESS: This 74-year-old woman with a past medical history of atrial fibrillation, CVA, TIA, hyperlipidemia, history of myocardial infarction being followed Dr. Maddox in the outpatient setting, was feeling dizzy today. The patient went back to the house after short stroll outside. Patient was so dizzy and the patient could not get out of chair and the patient called EMS and the patient found to be in atrial fibrillation with fast ventricular rate. Patient was started on Cardizem drip 10 mg/hour and the patient being closely monitored at this time. The patient also has some redness on the left eye which happened after according to the patient. There is no history of chest pain. No history of palpitations, headache, loss of consciousness, seizures at this time. PAST MEDICAL HISTORY: Atrial fibrillation, CVA, TIA, hyperlipidemia, history of myocardial infarction. MEDICATIONS: Home medications are: 1. Isoptin 80 mg p.o. b.i.d. 2. Eliquis 5 mg p.o. b.i.d. 3. Lopressor 50 mg q.h.s. 4. Lasix 20 mg p.o. daily. 5. Lopressor 100 mg p.o. daily. ALLERGIES: None. FAMILY HISTORY: History of aneurysm in the family. SOCIAL HISTORY: Remote history of smoking. No history of current smoking or alcohol intake. REVIEW OF SYSTEMS: ENT: Diminished vision. Diminished hearing. Cardiovascular: As mentioned earlier. Respiration as mentioned earlier. GI no nausea or vomiting. no dysuria. Nervous system: No numbness or weakness. Allergy/immunology: No asthma or hay fever. Musculoskeletal as mentioned earlier. Hematology/Oncology: No history of anemia. Endocrine: No history of diabetes or hypothyroidism. Constitutional: As mentioned earlier. DERMATOLOGY: Negative. RHEUMATOLOGY negative. PSYCHIATRY as mentioned earlier. PHYSICAL EXAMINATION: Alert and oriented x3. Pulse is 114 and regular. Blood pressure is 130/83, respirations 16, temperature 97.6, pulse ox 96% on room air. HEENT: Conjunctivae normal. Oral mucosa moist. Neck is no jugular venous distention. No carotid bruit. No lymph node enlargement. Cardiovascular: S1, S2 irregular. No S3, no S4. Respiratory: Breath sounds diminished in the bases. A few scattered rhonchi and crackles. ABDOMEN: Soft, nontender. No mass palpable. LEGS: No edema. No swelling. NERVOUS SYSTEM: Higher functions as mentioned. Moves all 4 limbs. Mild diffuse weakness. No focal deficits. LYMPHATICS: No lymph nodes in neck or axilla. SKIN: No ulcer. JOINTS: No active deforming arthropathy. LABS: CBC within normal limits. INR is 1. Sodium 139, potassium 4.2. Creatinine is 1.31 and glucose is 167. ASSESSMENT: 1. Atrial fibrillation with fast ventricular rate. 2. Fall and syncope secondary to atrial fibrillation fast ventricular rate. 3. Increased creatinine, possibly chronic kidney disease stage III. 4. History of atrial fibrillation, chronic. 5. Cerebrovascular accident/transient ischemic attack. 6. Hyperlipidemia. 7. History of myocardial infarction. 8. History of fall and hip fracture. 9. History of borderline diabetes mellitus. 10.History of right ankle fracture. 11.History of remote history of nicotine dependence. RECOMMENDATIONS AND DISCUSSION: In this 74-year-old woman who presented with multiple complex medical issues, at this time, I recommend to continue the current medications. Continue symptomatic treatment. Otherwise Cardizem drip. Resume the home medications. Patient is already on apixaban. PT/OT evaluation. 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 Otherwise, patient is FULL CODE. Covid test has been requested. Cardiology has been consulted. I would recommend a 2D echo with Doppler. Overall prognosis guarded because of multiple complex medical issues. Further recommendations to follow. A copy of dictation being forwarded to Dr. Maddox who is the primary physician. MMODL / IJN: [id number] / MTDD
[2019-11-07] MEDS: DILTIAZEM 125 MG in SODIUM CHLORIDE 0.9% 100 ML IV SCH (04:33)
[2019-11-07] MEDS: PANTOPRAZOLE 40 MG TABLET PO SCH (06:15)
[2019-11-07 06:24] LABS: Basophils % (A) 0 %; Eosinophils # (A) 0.3 k/uL (0-0.7); Eosinophils % (A) 4 %; HCT 40.1 % (34.0-46.0); HGB 12.9 gm/dL (11.4-16.0); Hypochromasia Slight; Lymphocytes # (A) 0.9 k/uL (1.0-4.8); Lymphocytes % (A) 12 %; MCH 32.2 pg (25.0-35.0); MCHC 32.1 g/dL (31.0-37.0); MCV 100.2 fL (80.0-100.0); Mean Platelet Volume 7.3; Monocytes # (A) 0.4 k/uL (0-1.0); Monocytes % (A) 6 %; Neutrophils # (A) 5.4 k/uL (1.3-7.7); Neutrophils % (A) 77 %; Platelet Count 216 k/uL (150-450); RDW 13.2 % (11.5-15.5)
[2019-11-07 06:33] LABS: Calcium 9.1 mg/dL (8.4-10.2); Potassium 4.3 mmol/L (3.5-5.1)
[2019-11-07 07:17] LABS: Appearance,Urine Clear (Clear); Bacteria,Urine Rare /hpf; Bilirubin,Urine Negative (Negative); Blood,Urine Negative (Negative); Color,Urine Yellow; Glucose,Urine (UA) Negative (Negative); Ketones,Urine Negative (Negative); Leukocyte Esterase,Urine Small (Negative); Mucus,Urine Rare /hpf; Nitrite,Urine Negative (Negative); PH, Urine 6.5 (5.0-8.0); Protein,Urine Negative (Negative); Specific Gravity,Urine 1.017 (1.001-1.035); Squamous Epithelial Cell,Urine 1 /hpf (0-4); Urobilinogen,Urine <2.0 mg/dL (<2.0); WBC,Urine 9 /hpf (0-5)
[2019-11-07] MEDS: APIXABAN 5 MG TAB PO SCH ×2 (08:04→21:48)
[2019-11-07] MEDS: METOPROLOL TARTRATE 50 MG TAB PO SCH ×2 (10:21→21:48)
--- NOTE | 2019-11-07 11:23 | P.CRDCN ---
History of Present Illness Consult date: 11/07/19 Consult reason: atrial fibrillation Chief complaint: Dizziness History of present illness: This is a 74-year-old female who follows with Dr. Rivas in the office. She has a history of chronic persistent atrial fibrillation, prior CVA, hyperlipidemia, history of nicotine dependence, hypertension, underwent cardiac catheterization in March 2017 which revealed normal coronary arteries. She also had an echo performed in August 2018 which revealed an ejection fraction of 50-55%, mild to moderate MR, moderate pulmonary hypertension. She presented to the hospital with symptoms of dizziness, and weakness. According to the patient, she sits in a riding wheelchair, she normally can get herself up out of the chair, but prior to admission she was unable to. She still continued to try and ultimately slid down onto the floor. Patient also states that she if she is on the floor she usually can get herself up by moving over to the couch to get up. This occasion patient was unable to get herself up off the floor and came to the hospital for further evaluation and treatment. She also states that she had a mild episode of dizziness. She did not lose consciousness. Her chest x- ray on presentation here revealed chronic findings, nothing acute. X-ray of the pelvis did not reveal any acute fracture. CT of the head/spine did not reveal any acute changes. EKG on presentation here showed atrial fibrillation with a rapid ventricular response. Blood pressure 150/80, heart rate 104, respirations 18, 90% on room air. White blood cell count 7.0, hemoglobin 12.9, platelet count 216. Sodium 141, potassium 4.3, BUN 22, creatinine 1.0, on admission the creatinine was 1.3. Troponins were negative 3, TSH 1.09 and Covid testing pending. Past Medical History Past Medical History: Atrial Fibrillation, CVA/TIA, Hyperlipidemia, Myocardial Infarction ([place]) Additional Past Medical History / Comment(s): 07/27/17 FALL'LT HIP FX. 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 Last Myocardial Infarction Date:: 2009 History of Any Multi-Drug Resistant Organisms: None Reported Past Surgical History: Heart Catheterization, Orthopedic Surgery, Tonsillectomy Additional Past Surgical History / Comment(s): ORIF RT ANKLE HAS PLATE. Past Anesthesia/Blood Transfusion Reactions: No Reported Reaction Past Psychological History: No Psychological Hx Reported Smoking Status: Former smoker Past Alcohol Use History: None Reported Additional Past Alcohol Use History / Comment(s): STARTED SMOKING AGE 13 AND QUIT 2012 SMOKED 1 PPD Past Drug Use History: None Reported - Past Family History Mother Family Medical History: No Reported History Additional Family Medical History / Comment(s): FROM ANUERYSM Father Family Medical History: No Reported History Medications and Allergies Home Medications Medication Instructions Recorded Confirmed Type Apixaban [Eliquis] 5 mg PO BID #60 tab 09/02/18 11/06/19 Rx Verapamil [Isoptin] 80 mg PO BID #60 tab 09/02/18 11/06/19 Rx Furosemide [Lasix] 20 mg PO DAILY 11/06/19 11/06/19 History Metoprolol Tartrate [Lopressor] 50 mg PO HS 11/06/19 11/06/19 History Metoprolol Tartrate [Lopressor] 100 mg PO DAILY 11/06/19 11/06/19 History Allergies Allergy/AdvReac Type Severity Reaction Status Date / Time No Known Allergies Allergy Verified 11/06/19 16:45 Physical Exam Vitals: Vital Signs Temp Pulse Pulse Resp BP BP Pulse Ox 11/07/19 08:00 98.4 F 104 H 18 156/80 88 L 11/07/19 04:00 98.0 F 65 16 121/71 91 L 11/07/19 00:00 98.2 F 84 18 118/81 95 11/06/19 20:00 98.0 F 89 18 123/72 93 L 11/06/19 17:30 97.6 F 107 H 16 138/83 96 11/06/19 16:56 98 18 121/98 98 11/06/19 15:46 90 18 100 11/06/19 14:59 133 H 18 144/83 98 11/06/19 13:07 131 H 18 125/106 98 11/06/19 12:50 97.6 F 150 H 18 153/116 96 Intake and Output 11/06/19 11/07/19 11/07/19 22:59 06:59 14:59 Intake Total 275 140 Output Total 400 Balance 275 -260 Intake: Intake, IV Titration 275 140 Amount Diltiazem 125 mg In 175 Sodium Chloride 0.9% 100 ml @ 10 MG/HR 10 mls/hr IV .[id number] [facility] Rx#: [id number] Sodium Chloride 0.9% 1, 100 140 000 ml @ 20 mls/hr IV . Q24H [facility] Rx#:[id number] Output: Urine 400 Other: Weight 104.326 kg 104.8 kg PHYSICAL EXAMINATION: GENERAL: 74-year-old female in no acute distress at the time of my examination HEENT: Head is atraumatic, normocephalic. Pupils equal, round. Sclera anicteric. Conjunctiva are clear. Mucous membranes of the mouth are moist. Neck is supple. There is no elevated jugular venous pressure. No carotid bruit is heard. HEART EXAMINATION: Heart S1 and S2 irregularly irregular with a soft systolic murmur CHEST EXAMINATION: Lungs are clear to auscultation and precussion. No chest wall tenderness is noted on palpation or with deep breathing. ABDOMEN: Soft, nontender. Bowel sounds are heard. No organomegaly noted. EXTREMITIES: 2+ peripheral pulses with trace evidence of peripheral edema and no calf tenderness noted. NEUROLOGIC patient is awake, alert and oriented 3 . . Results 11/07/19 05:56 11/07/19 05:56 Cardiac Enzymes 11/06/19 Range/Units 13:01 Troponin I <0.012 (0.000-0.034) ng/mL Coagulation 11/06/19 Range/Units 13:01 PT 10.1 (9.0-12.0) sec APTT 26.7 (22.0-30.0) sec CBC 11/06/19 11/07/19 Range/Units 13:01 05:56 WBC 6.0 7.0 (3.8-10.6) k/uL RBC 4.07 4.00 (3.80-5.40) m/uL Hgb 12.5 12.9 (11.4-16.0) gm/dL Hct 40.3 40.1 (34.0-46.0) % Plt Count 206 216 (150-450) k/uL Comprehensive Metabolic Panel 11/06/19 11/07/19 Range/Units 13:01 05:56 Sodium 139 141 (137-145) mmol/L Potassium 4.2 4.3 (3.5-5.1) mmol/L Chloride 106 111 H (98-107) mmol/L Carbon Dioxide 26 21 L (22-30) mmol/L BUN 26 H 22 H (7-17) mg/dL Creatinine 1.31 H 1.04 (0.52-1.04) mg/dL Glucose 167 H 119 H (74-99) mg/dL Calcium 9.2 9.1 (8.4-10.2) mg/dL Current Medications Generic Name Dose Route Start Last Admin Trade Name Freq PRN Reason Stop Dose Admin Acetaminophen 650 mg 11/06/19 15:15 Tylenol Tab PO Q6HR PRN Mild Pain or Fever > 100.5 Hydrocodone Bitart/Acetaminophen 1 each 11/06/19 20:17 [place] 5-325 PO Q6HR PRN Pain Alprazolam 0.25 mg 11/06/19 20:17 Xanax PO TID PRN Anxiety Apixaban 5 mg 11/06/19 21:00 11/07/19 08:04 Eliquis PO 5 mg BID [facility] Administration Sodium Chloride 1,000 mls @ 20 mls/hr 11/06/19 15:15 11/06/19 15:20 Saline 0.9% IV 20 mls/hr .Q24H [facility] Administration Metoprolol Tartrate 50 mg 11/07/19 09:00 11/07/19 10:21 Lopressor PO 50 mg BID [facility] Administration Naloxone HCl 0.2 mg 11/06/19 15:15 Narcan IV Q2M PRN Opioid Reversal Pantoprazole Sodium 40 mg 11/07/19 07:30 11/07/19 06:15 Protonix PO 40 mg [id number] [facility] Administration Intake and Output 11/06/19 11/07/19 11/07/19 22:59 06:59 14:59 Intake Total 275 140 Output Total 400 Balance 275 -260 Intake: Intake, IV Titration 275 140 Amount Diltiazem 125 mg In 175 Sodium Chloride 0.9% 100 ml @ 10 MG/HR 10 mls/hr IV .[id number] [facility] Rx#: [id number] Sodium Chloride 0.9% 1, 100 140 000 ml @ 20 mls/hr IV . Q24H [facility] Rx#:[id number] Output: Urine 400 Other: Weight 104.326 kg 104.8 kg 11/07/19 05:56 11/07/19 05:56 EKG Interpretations (text) EKG shows atrial fibrillation with a rapid ventricular response Assessment and Plan Plan: Assessment and plan #1 atrial fibrillation with rapid ventricular response, chronic persistent, on oral anticoagulation #2 prior CVA #3 hyperlipidemia #4 history of nicotine dependence #5 hypertension #6 normal coronary arteries by cardiac catheterization performed in March 2017 Plan We will request an echocardiogram with Doppler study be performed, discontinue the Cardizem drip and resume the patient's metoprolol that she takes at home. We will also check orthostatic heart rate and blood pressure every shift. F tomither recommendations to follow. DNP note has been reviewed, I agree with a documented findings and plan of care. Patient was seen and examined.
--- NOTE | 2019-11-07 15:00 | ECHOF ---
Referral Reason:afib MEASUREMENTS -------- HEIGHT: 172.7 cm WEIGHT: 104.8 kg BP: 156/80 IVSd: 1.4 cm (0.6 - 1.1) LVIDd: 4.6 cm (3.9 - 5.3) LVPWd: 1.4 cm (0.6 - 1.1) IVSs: 1.5 cm LVIDs: 4.2 cm LVPWs: 2.0 cm LA Diam: 3.9 cm (2.7 - 3.8) RVIDd: 3.3 cm (< 3.3) LAESV Index (A-L): 23.83 ml/m Ao Diam: 3.9 cm (2.0 - 3.7) AV Cusp: 1.6 cm (1.5 - 2.6) EPSS: 1.3 cm AR PHT: 630 ms RAP: 15.00 mmHg RVSP: 52.24 mmHg MV EF SLOPE: 77.58 mm/s (70 - 150) MV EXCURSION: 18.22 mm (> 18.000) FINDINGS -------- Atrial fibrillation. This was a technically adequate study. The left ventricular size is normal. There is moderate concentric left ventricular hypertrophy. O verall left ventricular systolic function is moderate-severely impaired with, an EF between 30 - 35 % . The right ventricle is mildly enlarged. Normal LA size by volume 22+/-6 ml/m2. The right atrium is mildly enlarged. Interatrial and interventricular septum intact. There is mild aortic valve sclerosis. There is mild aortic regurgitation. Mild mitral annular calcification present. [id number] mitral regurgitation is present. Eugl-de-vvydhhvr tricuspid regurgitation present. There is moderate pulmonary hypertension. The r ight ventricular systolic pressure, as measured by Doppler, is 52.24mmHg. Trace/mild (physiologic) pulmonic regurgitation. The aortic root is dilated measuring 3.9cm. The inferior vena cava is dilated with poor inspiratory collapse which is consistent with estimated r ight atrial pressure of 15 mmHg. There is no pericardial effusion. CONCLUSIONS -------- 1. Atrial fibrillation. 2. This was a technically adequate study. 3. The left ventricular size is normal. 4. There is moderate concentric left ventricular hypertrophy. 5. Overall left ventricular systolic function is moderate-severely impaired with, an EF between 30 - 35 %. 6. The right ventricle is mildly enlarged. 7. Normal LA size by volume 22+/-6 ml/m2. 8. The right atrium is mildly enlarged. 9. Interatrial and interventricular septum intact. 10. There is mild aortic valve sclerosis. 11. There is mild aortic regurgitation. 12. Mild mitral annular calcification present. 13. Ezpv-ta-oaecankg mitral regurgitation is present. 14. Hefh-zz-xxuzuras tricuspid regurgitation present. 15. There is moderate pulmonary hypertension. 16. The right ventricular systolic pressure, as measured by Doppler, is 52.24mmHg. 17. Trace/mild (physiologic) pulmonic regurgitation. 18. The aortic root is dilated measuring 3.9cm. 19. The inferior vena cava is dilated with poor inspiratory collapse which is consistent with estimat ed right atrial pressure of 15 mmHg. 20. There is no pericardial effusion. GAS CHARGER: Marcia Richard RDCS
--- NOTE | 2019-11-07 18:20 | PN ---
PROGRESS NOTE DATE OF SERVICE: 11/07/2019 This 74-year-old woman who was admitted with atrial fibrillation with fast ventricular rate also had a fall and syncope. A 2D echo with Doppler was done which was read by Cardiology and shows ejection fraction about 30% to 35%, indicating chronic systolic dysfunction with mild to moderate mitral regurgitation, mild to moderate tricuspid regurgitation as well; some aortic root dilatation also noted, up to 3.9 cm. Cardiology has seen the patient and recommended to discontinue the Cardizem and initiate metoprolol. PT/OT is evaluating the patient also. Past medical history reviewed. REVIEW OF SYSTEMS: CARDIOVASCULAR SYSTEM: As mentioned earlier. RESPIRATORY SYSTEM: As mentioned earlier. GI: No nausea, vomiting. : No dysuria or retention. NERVOUS SYSTEM: Diffusely weak. CURRENT MEDICATIONS: Reviewed. They include: 1. Tylenol p.r.n. 2. [place] 5 mg q.6 p.r.n. 3. Xanax. 4. Eliquis 5 mg p.o. b.i.d. 5. Lopressor 50 mg p.o. daily. 6. Protonix. PHYSICAL EXAMINATION: Patient is alert and oriented x3. Pulse 94, blood pressure 136/77, respirations 16, temperature 98.2, pulse ox 96% on 2 L. HEENT: Conjunctivae normal. Oral mucosa moist. NECK: No jugular venous distention. No carotid bruit. No lymph node enlargement. CARDIOVASCULAR SYSTEM: S1, S2 muffled. RESPIRATORY SYSTEM: Breath sounds diminished at the bases. A few scattered rhonchi and crackles. ABDOMEN: Soft, non-tender. LEGS: No edema. No swelling. NERVOUS SYSTEM: No focal deficit. LABS: CBC within normal limits. Sodium 142, potassium 4.3, creatinine 1.04, glucose 119. UA noted; possibly UTI. ASSESSMENT: 1. Atrial fibrillation with fast ventricular rate. 2. Fall and syncope secondary to atrial fibrillation with fast ventricular rate. 3. Possible urinary tract infection, present on admission. 4. Increased creatinine with possibly chronic kidney disease, stage III baseline. 5. History of chronic atrial fibrillation. 6. Cerebrovascular accident, transient ischemic attack history. 7. Hyperlipidemia. 8. Gait dysfunction. 9. History of myocardial infarction. 10.History of fall and hip fracture. 11.History of borderline diabetes mellitus, type 2. 12.History of ankle fracture. 13.Remote history of nicotine dependence. 14.FULL CODE. RECOMMENDATIONS AND DISCUSSION: In this 74-year-old woman who presented with multiple complex medical issues, we will monitor the patient closely, continue the current medications, continue symptomatic treatment. Otherwise at this time I recommend continuing the beta blockers, PT/OT evaluation, possible ECF rehab. The patient is at high risk of falls because of the multiple medical issues, as mentioned earlier, as well as previous history of stroke. I would recommend a short course of antibiotics and I will supplement vitamins as well. Prognosis guarded. Further recommendations to follow. Discussed with the patient. MMODL / IJN: [id number] /
[2019-11-07] MEDS: SODIUM CHLORIDE 0.9% 1,000 ML IV SCH (21:48)
[2019-11-08] MEDS: PANTOPRAZOLE 40 MG TABLET PO SCH (06:18)
[2019-11-08 07:47] LABS: Basophils % (A) 0 %; Eosinophils # (A) 0.1 k/uL (0-0.7); Eosinophils % (A) 2 %; HCT 37.8 % (34.0-46.0); HGB 11.7 gm/dL (11.4-16.0); Hypochromasia Slight; Lymphocytes # (A) 0.6 k/uL (1.0-4.8); Lymphocytes % (A) 7 %; MCH 30.9 pg (25.0-35.0); MCHC 31.1 g/dL (31.0-37.0); MCV 99.5 fL (80.0-100.0); Mean Platelet Volume 7.6; Monocytes # (A) 0.3 k/uL (0-1.0); Monocytes % (A) 4 %; Neutrophils # (A) 6.6 k/uL (1.3-7.7); Neutrophils % (A) 86 %; Platelet Count 183 k/uL (150-450); RDW 13.1 % (11.5-15.5); WBC 7.7 k/uL (3.8-10.6)
[2019-11-08 08:04] LABS: Calcium 9.1 mg/dL (8.4-10.2); Potassium 4.3 mmol/L (3.5-5.1)
[2019-11-08] MEDS: APIXABAN 5 MG TAB PO SCH ×2 (08:19→21:27)
[2019-11-08] MEDS: METOPROLOL TARTRATE 50 MG TAB PO SCH ×2 (08:19→21:26)
[2019-11-08] MEDS: SODIUM CHLORIDE 0.9% 1,000 ML IV SCH (09:30)
[2019-11-08] MEDS ORDERED: MULTIVITAMINS, THERA 1 EACH TAB PO SCH (12:00)
--- NOTE | 2019-11-08 16:18 | P.PN ---
Subjective Progress Note Date: 11/08/19 This is a 74-year-old female who follows with Dr. Rivas in the office. She has a history of chronic persistent atrial fibrillation, prior CVA, hyperlipidemia, history of nicotine dependence, hypertension, underwent cardiac catheterization in March 2017 which revealed normal coronary arteries. She also had an echo performed in August 2018 which revealed an ejection fraction of 50-55%, mild to moderate MR, moderate pulmonary hypertension. She presented to the hospital with symptoms of dizziness, and weakness. According to the patient, she sits in a riding wheelchair, she normally can get herself up out of the chair, but prior to admission she was unable to. She still continued to try and ultimately slid down onto the floor. Patient also states that she if she is on the floor she usually can get herself up by moving over to the couch to get up. This occasion patient was unable to get herself up off the floor and came to the hospital for further evaluation and treatment. She also states that she had a mild episode of dizziness. She did not lose consciousness. Her chest x- ray on presentation here revealed chronic findings, nothing acute. X-ray of the pelvis did not reveal any acute fracture. CT of the head/spine did not reveal any acute changes. EKG on presentation here showed atrial fibrillation with a rapid ventricular response. Blood pressure 150/80, heart rate 104, respirations 18, 90% on room air. White blood cell count 7.0, hemoglobin 12.9, platelet coun t 216. Sodium 141, potassium 4.3, BUN 22, creatinine 1.0, on admission the creatinine was 1.3. Troponins were negative 3, TSH 1.09 and Covid testing pending. 11/08/2019 Patient seen and examined this morning, continues to be in atrial fibrillation but her heart rate today is under much better control. Her echocardiogram with Doppler study showed an ejection fraction of 30-35%, mild to moderate MR, moderate pulmonary hypertension with mild to moderate tricuspid regurg, of note her echo done in August 2018 showed a normal LV function. It is possible that the LV reduction could be secondary to A. fib with RVR. We will repeat a limited echo tomorrow to reevaluate the LV function. Objective - Vital Signs Vital signs: Vital Signs Temp 98.2 F 11/08/19 11:58 Pulse 102 H 11/08/19 12:00 Resp 18 11/08/19 05:00 BP 148/91 11/08/19 11:58 Pulse Ox 93 L 11/08/19 08:00 Intake & Output 11/07/19 11/08/19 11/08/19 18:59 06:59 18:59 Intake Total 140 80 240 Output Total 700 1400 Balance -560 -1320 240 Weight 103.6 kg Intake: Intake, IV Titration 140 80 Amount Sodium Chloride 0.9% 1, 140 80 000 ml @ 20 mls/hr IV . Q24H [facility] Rx#:[id number] Oral 240 Output: Urine 700 1400 Other: # Voids 1 350 # Bowel Movements 1 - Exam PHYSICAL EXAMINATION: GENERAL: 74-year-old female in no acute distress at the time of my examination HEENT: Head is atraumatic, normocephalic. Pupils equal, round. Sclera anicteric. Conjunctiva are clear. Mucous membranes of the mouth are moist. Neck is supple. There is no elevated jugular venous pressure. No carotid bruit is heard. HEART EXAMINATION: Heart S1 and S2 irregularly irregular with a soft systolic murmur CHEST EXAMINATION: Lungs are clear to auscultation and precussion. No chest wall tenderness is noted on palpation or with deep breathing. ABDOMEN: Soft, nontender. Bowel sounds are heard. No organomegaly noted. EXTREMITIES: 2+ peripheral pulses with trace evidence of peripheral edema and no calf tenderness noted. NEUROLOGIC patient is awake, alert and oriented 3 . - Labs CBC & Chem 7: 11/08/19 07:18 11/08/19 07:18 Labs: Abnormal Lab Results - Last 24 Hours (Table) 11/08/19 11/08/19 Range/Units 07:18 07:18 Lymphocytes # 0.6 L (1.0-4.8) k/uL BUN 22 H (7-17) mg/dL Creatinine 1.18 H (0.52-1.04) mg/dL Glucose 135 H (74-99) mg/dL Assessment and Plan Plan: Assessment and plan #1 atrial fibrillation with rapid ventricular response, chronic persistent, on oral anticoagulation #2 prior CVA #3 hyperlipidemia #4 history of nicotine dependence #5 hypertension #6 normal coronary arteries by cardiac catheterization performed in March 2017 Plan Echocardiogram with Doppler study reveals a reduced LV function, 30-35%, this could be secondary to increased heart rate. We will repeat an echocardiogram with Doppler study in the morning, limited, to assess the LV function now that the heart rate is under control. DNP note has been reviewed, I agree with a documented findings and plan of care. Patient was seen and examined.
--- NOTE | 2019-11-08 18:50 | PN ---
PROGRESS NOTE DATE OF SERVICE: 11/08/2019 This 74-year-old woman who was admitted with atrial fibrillation with a fast ventricular rate also had a fall and syncope secondary to atrial fibrillation. The patient is being closely monitored. The patient also has acute UTI. Patient also had gait dysfunction. Cardiology is following the patient closely. The patient is still in atrial ablation. A 2D echo with Doppler showed ejection fraction 30% to 35% and multiple minimal valvular abnormalities also. The patient is being closely monitored. Past medical history reviewed. PHYSICAL EXAMINATION: Patient is alert, oriented x2. Pulse is 102, blood pressure 118/66, respiration 18, temperature 98 degrees, pulse ox 94% on room air. HEENT: Conjunctivae normal. NECK: No jugular venous distention. CARDIOVASCULAR SYSTEM: S1, S2 muffled. RESPIRATORY SYSTEM: Breath sounds diminished at the bases. Scattered rhonchi and crackles. Expiratory wheezing. ABDOMEN: Soft, non-tender. LEGS: No edema. No swelling. NERVOUS SYSTEM: Mild diffuse weakness. LABS: Creatinine is 1.18. Otherwise, glucose 135. UA noted. ASSESSMENT: 1. Atrial fibrillation with fast ventricular rate, chronic atrial fibrillation. 2. Fall and syncope secondary to atrial fibrillation with fast ventricular rate. 3. Congestive heart failure with chronic systolic dysfunction, ejection fraction 30% to 35%. 4. Mild aortic regurgitation and mild to moderate mitral regurgitation and mild to moderate tricuspid regurgitation in the 2D echocardiogram. 5. Possible urinary tract infection, present on admission. 6. Increased creatinine with possibly chronic kidney disease, stage III baseline. 7. Chronic atrial fibrillation. 8. History of cerebrovascular incident, transient ischemic attack. 9. Hyperlipidemia. 10.Gait dysfunction. 11.History of myocardial infarction. 12.History of fall and hip fracture. 13.History of borderline diabetes mellitus, type 2. 14.History of ankle fracture. 15.Remote history of nicotine dependence. 16.FULL CODE. RECOMMENDATIONS AND DISCUSSION: I recommend to continue current medications, continue symptomatic treatment. PT/OT evaluation. Will continue the diltiazem and the beta blockers. Patient is on metoprolol 50 mg p.o. b.i.d. and I would also recommend possible ECF rehab. Prognosis guarded. Further recommendations to follow. MMODL / IJN: [id number] /
[2019-11-08 22:38] VITALS: RESP 16
[2019-11-09 04:14] VITALS: PULSE 87
[2019-11-09] MEDS: PANTOPRAZOLE 40 MG TABLET PO SCH (06:26)
[2019-11-09 08:12] LABS: Basophils % (A) 0 %; Eosinophils # (A) 0.3 k/uL (0-0.7); Eosinophils % (A) 4 %; HCT 41.1 % (34.0-46.0); HGB 12.7 gm/dL (11.4-16.0); Hypochromasia Slight; Lymphocytes # (A) 0.7 k/uL (1.0-4.8); Lymphocytes % (A) 8 %; MCH 30.9 pg (25.0-35.0); MCHC 30.9 g/dL (31.0-37.0); MCV 100.1 fL (80.0-100.0); Mean Platelet Volume 7.8; Monocytes # (A) 0.4 k/uL (0-1.0); Monocytes % (A) 5 %; Neutrophils # (A) 6.9 k/uL (1.3-7.7); Neutrophils % (A) 83 %; Platelet Count 229 k/uL (150-450); WBC 8.3 k/uL (3.8-10.6)
[2019-11-09] MEDS: APIXABAN 5 MG TAB PO SCH (08:40)
[2019-11-09] MEDS: METOPROLOL TARTRATE 50 MG TAB PO SCH (08:40)
[2019-11-09 08:44] LABS: Potassium 4.3 mmol/L (3.5-5.1)
--- NOTE | 2019-11-09 11:22 | P.PN ---
Subjective Progress Note Date: 11/09/19 This is a 74-year-old female who follows with Dr. Rivas in the office. She has a history of chronic persistent atrial fibrillation, prior CVA, hyperlipidemia, history of nicotine dependence, hypertension, underwent cardiac catheterization in March 2017 which revealed normal coronary arteries. She also had an echo performed in August 2018 which revealed an ejection fraction of 50-55%, mild to moderate MR, moderate pulmonary hypertension. She presented to the hospital with symptoms of dizziness, and weakness. According to the patient, she sits in a riding wheelchair, she normally can get herself up out of the chair, but prior to admission she was unable to. She still continued to try and ultimately slid down onto the floor. Patient also states that she if she is on the floor she usually can get herself up by moving over to the couch to get up. This occasion patient was unable to get herself up off the floor and came to the hospital for further evaluation and treatment. She also states that she had a mild episode of dizziness. She did not lose consciousness. Her chest x- ray on presentation here revealed chronic findings, nothing acute. X-ray of the pelvis did not reveal any acute fracture. CT of the head/spine did not reveal any acute changes. EKG on presentation here showed atrial fibrillation with a rapid ventricular response. Blood pressure 150/80, heart rate 104, respirations 18, 90% on room air. White blood cell count 7.0, hemoglobin 12.9, platelet coun t 216. Sodium 141, potassium 4.3, BUN 22, creatinine 1.0, on admission the creatinine was 1.3. Troponins were negative 3, TSH 1.09 and Covid testing pending. 11/08/2019 Patient seen and examined this morning, continues to be in atrial fibrillation but her heart rate today is under much better control. Her echocardiogram with Doppler study showed an ejection fraction of 30-35%, mild to moderate MR, moderate pulmonary hypertension with mild to moderate tricuspid regurg, of note her echo done in August 2018 showed a normal LV function. It is possible that the LV reduction could be secondary to A. fib with RVR. We will repeat a limited echo tomorrow to reevaluate the LV function. 11/09/2019 Patient was seen and examined this morning, overall doing well. A limited echocardiogram with Doppler study was performed this morning. Blood pressure this morning 137/80 with a heart rate in the 80s, continues to be in atrial fibrillation. Objective - Vital Signs Vital signs: Vital Signs Temp 97.8 F 11/09/19 04:11 Pulse 87 11/09/19 04:11 Resp 16 11/09/19 04:11 BP 137/84 11/09/19 04:11 Pulse Ox 93 L 11/09/19 04:11 Intake & Output 11/08/19 11/09/19 11/09/19 18:59 06:59 18:59 Intake Total 480 120 240 Balance 480 120 240 Weight 109.5 kg Intake: Oral 480 120 240 Other: # Voids 350 1 - Exam PHYSICAL EXAMINATION: GENERAL: 74-year-old female in no acute distress at the time of my examination HEENT: Head is atraumatic, normocephalic. Pupils equal, round. Sclera anicteric. Conjunctiva are clear. Mucous membranes of the mouth are moist. Neck is supple. There is no elevated jugular venous pressure. No carotid b ruit is heard. HEART EXAMINATION: Heart S1 and S2 irregularly irregular with a soft systolic murmur CHEST EXAMINATION: Lungs are clear to auscultation and precussion. No chest wall tenderness is noted on palpation or with deep breathing. ABDOMEN: Soft, nontender. Bowel sounds are heard. No organomegaly noted. EXTREMITIES: 2+ peripheral pulses with trace evidence of peripheral edema and no calf tenderness noted. NEUROLOGIC patient is awake, alert and oriented 3 . - Labs CBC & Chem 7: 11/09/19 07:31 11/09/19 07:31 Labs: Abnormal Lab Results - Last 24 Hours (Table) 11/09/19 11/09/19 Range/Units 07:31 07:31 MCV 100.1 H (80.0-100.0) fL MCHC 30.9 L (31.0-37.0) g/dL Lymphocytes # 0.7 L (1.0-4.8) k/uL Chloride 108 H (98-107) mmol/L Carbon Dioxide 19 L (22-30) mmol/L BUN 25 H (7-17) mg/dL Creatinine 1.17 H (0.52-1.04) mg/dL Glucose 162 H (74-99) mg/dL Microbiology - Last 24 Hours (Table) 11/08/19 07:30 Urine Culture - Preliminary Urine,Clean Catch Assessment and Plan Plan: Assessment and plan #1 atrial fibrillation with rapid ventricular response, chronic persistent, on oral anticoagulation #2 prior CVA #3 hyperlipidemia #4 history of nicotine dependence #5 hypertension #6 normal coronary arteries by cardiac catheterization performed in March 2017 Plan We will review the patient's limited echocardiogram with Doppler study. From our perspective she should be able to be discharged home today, we'll make her a follow-up appointment in the office with Dr. Montana post discharge. DNP note has been reviewed, I agree with a documented findings and plan of care. Patient was seen and examined.
[2019-11-09 13:04] VITALS: BP 115/79; TEMP 97.7
--- NOTE | 2019-11-09 18:17 | ECHOF ---
Referral Reason:limited assess lvf MEASUREMENTS -------- HEIGHT: 172.7 cm WEIGHT: 109.3 kg BP: 137/84 RAP: 5.00 mmHg RVSP: 41.44 mmHg FINDINGS -------- Atrial fibrillation. Limited Study Overall left ventricular systolic function is mildly impaired with, an EF between 45 - 50 %. Mild tricuspid regurgitation present. There is mild pulmonary hypertension. The right ventricular systolic pressure, as measured by Doppler, is 41.44mmHg. There is no pericardial effusion. CONCLUSIONS -------- 1. Atrial fibrillation. 2. Limited Study 3. Overall left ventricular systolic function is mildly impaired with, an EF between 45 - 50 %. 4. Mild tricuspid regurgitation present. 5. There is mild pulmonary hypertension. 6. The right ventricular systolic pressure, as measured by Doppler, is 41.44mmHg. 7. There is no pericardial effusion. [employer]PERATOR SUPERVISOR: Marcia Richard RDCS
--- NOTE | 2019-11-11 09:28 | DS ---
DISCHARGE SUMMARY DATE OF ADMISSION: 11/05/2018 DATE OF DISCHARGE: 11/09/2027 FINAL DIAGNOSES: 1. Persistent atrial fibrillation with rapid ventricular rate, POA. 2. Fall with syncope secondary to atrial fibrillation rapid ventricular rate. 3. Chronic congestive heart failure from systolic dysfunction, ejection fraction 30- 35%. 4. Hyperlipidemia. 5. Coronary artery disease, prior myocardial infarction. 6. Obesity, body mass index 36.7. 7. Essential hypertension. 8. Acute urinary tract infection from cystitis with cultures being negative. HOSPITAL COURSE: The patient presented with dizziness, near syncope, found to be in atrial fibrillation with rapid ventricular rate. Heart rate was better controlled by the time of discharge after adjustment of medications. 2D echocardiogram showed EF of 30-35%, atrial fibrillation, some valvular regurgitation and evidence of moderate pulmonary hypertension. Feeling better at the time of discharge. PHYSICAL EXAMINATION: Temperature 97.7, pulse 110, respiration 16, blood pressure 127/75, pulse ox 92% on room air. CARDIOVASCULAR: Heart sounds irregular. LUNGS: Clear. PSYCH: AO x3. INVESTIGATIONS: White count 8.3, hemoglobin 12.7, potassium 4.3, BUN 25, creatinine 1.17. DISCHARGE MEDICATIONS: 1. Eliquis 5 mg p.o. b.i.d. 2. Lasix 20 mg p.o. daily. 3. Ceftin 250 mg b.i.d. for 3 days. 4. Pepcid 20 mg b.i.d. 5. Lopressor 50 mg p.o. b.i.d. Discontinued medications include verapamil. FOLLOWUP: Follow up with Dr. Montana on 11/16/2019. Follow up with Dr. Maddox in 3 days. LABS: CBC, BMP in 3-5 days. MMODL / IJN: [id number] /
== END 2019-11-09 13:29 | disposition home or self-care (01) | DRG 309 ==
LOC: EC 12:45 → 3SCARD 15:15
PROVIDERS: ADMIT Hospitalist; ATTEND Hospitalist
DX: I48.19 Other persistent atrial fibrillation (principal); I50.22 Chronic systolic (congestive) heart failure; N30.00 Acute cystitis without hematuria; I27.20 Pulmonary hypertension, unspecified; I25.2 Old myocardial infarction; I25.10 Atherosclerotic heart disease of native coronary artery without angina pectoris; E11.9 Type 2 diabetes mellitus without complications; E66.9 Obesity, unspecified; E78.5 Hyperlipidemia, unspecified; I08.1 Rheumatic disorders of both mitral and tricuspid valves; I11.0 Hypertensive heart disease with heart failure; W19.XXXA Unspecified fall, initial encounter; Z68.36 Body mass index [BMI] 36.0-36.9, adult; Z79.01 Long term (current) use of anticoagulants; Z79.899 Other long term (current) drug therapy; Z86.73 Personal history of transient ischemic attack (TIA), and cerebral infarction without residual deficits; Z87.891 Personal history of nicotine dependence; Z11.59 Encounter for screening for other viral diseases; Z91.81 History of falling
CPT/HCPCS: 36415; 70450; 71045; 72125; 72170; 80048; 81001; 83605; 83735; 84443; 84484; 85025; 85610; 85730; 87086; 87635; 93005; 93306; 93308; 96361; 96365; 96366; 96375; 99285

== ENCOUNTER 2020-01-31 20:54 | Inpatient (IN) | payer MEDICARE, OTHER ==
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
[2020-01-31 21:43] LABS: Basophils % (A) 0 %; Eosinophils # (A) 0.2 k/uL (0-0.7); Eosinophils % (A) 4 %; HCT 38.9 % (34.0-46.0); HGB 12.3 gm/dL (11.4-16.0); Lymphocytes % (A) 17 %; MCH 30.3 pg (25.0-35.0); MCHC 31.5 g/dL (31.0-37.0); MCV 96.2 fL (80.0-100.0); Mean Platelet Volume 7.6; Monocytes # (A) 0.3 k/uL (0-1.0); Monocytes % (A) 5 %; Neutrophils # (A) 4.3 k/uL (1.3-7.7); Neutrophils % (A) 72 %; Platelet Count 223 k/uL (150-450); RBC 4.04 m/uL (3.80-5.40); RDW 13.6 % (11.5-15.5)
[2020-01-31 21:52] LABS: Albumin 3.5 g/dL (3.5-5.0); Calcium 9.2 mg/dL (8.4-10.2); Potassium 4.3 mmol/L (3.5-5.1); Total Bilirubin 0.5 mg/dL (0.2-1.3); Total Protein 6.2 g/dL (6.3-8.2)
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
--- NOTE | 2020-01-31 22:40 | XR ---
EXAMINATION TYPE: XR humerus LT DATE OF EXAM: 01/31/2020 COMPARISON: NONE HISTORY: Pain TECHNIQUE: 3 views FINDINGS: There is spurring on the humeral head. There is mild narrowing of elbow joint spaces. There is narrowing of the glenohumeral joint space. There is spurring at the AC joint. IMPRESSION: Degenerative hypertrophic changes. No fracture seen of the humerus.
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
[2020-01-31] MEDS ORDERED: ACET/COD 300 MG/30 MG STARTER PACK 6 TAB BTL PO STA (23:14)
[2020-01-31] MEDS ORDERED: DILTIAZEM 5 MG/ML 10 ML VIAL IVP STA (23:32)
[2020-02-01] MEDS ORDERED: NALOXONE 0.4 MG/ML 1 ML VIAL IV PRN (00:29)
[2020-02-01] MEDS ORDERED: MORPHINE SULFATE 4 MG/ML SYRINGE IV PRN (00:29)
[2020-02-01] MEDS ORDERED: LORazepam 2 MG/ML INJ IV PRN (00:29)
[2020-02-01] MEDS ORDERED: ONDANSETRON 4 MG/2 ML VIAL IVP PRN (00:29)
[2020-02-01] MEDS ORDERED: ACETAMINOPHEN TAB 325 MG TAB PO PRN (00:29)
[2020-02-01] MEDS: SODIUM CHLORIDE 0.9% 1,000 ML IV SCH ×2 (03:53→18:30)
[2020-02-01] MEDS: HYDROcodone/APAP 5-325MG 1 EACH TAB PO PRN ×2 (08:59→20:17)
[2020-02-01] MEDS ORDERED: PANTOPRAZOLE 40 MG/10 ML VIAL IV SCH (09:00)
[2020-02-01] MEDS ORDERED: METOPROLOL TARTRATE 50 MG TAB PO SCH ×2 (10:15→21:00)
[2020-02-01] MEDS ORDERED: METOPROLOL TARTRATE 50 MG TAB PO STA (11:01)
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
[2020-02-01] MEDS: APIXABAN 5 MG TAB PO SCH ×2 (11:31→20:17)
[2020-02-01] MEDS: FUROSEMIDE 20 MG TAB PO SCH (11:31)
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
--- NOTE | 2020-02-01 14:16 | XR ---
EXAMINATION TYPE: XR ribs LT DATE OF EXAM: 02/01/2020 COMPARISON: NONE HISTORY: 74-year-old female pain after fall, rule out fracture TECHNIQUE: 4 views FINDINGS: Moderate degenerative changes AC joint and left glenohumeral joint. No displaced left rib fracture se en. No pneumothorax or effusion within the left hemithorax. IMPRESSION: No displaced left rib fractures. Moderate OA left AC joint and glenohumeral joint.
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
[2020-02-01] MEDS: DILTIAZEM CD 240 MG CAP.ER.24H PO SCH (18:27)
[2020-02-02] MEDS: HYDROcodone/APAP 5-325MG 1 EACH TAB PO PRN (00:12)
[2020-02-02] MEDS: SODIUM CHLORIDE 0.9% 1,000 ML IV SCH ×2 (05:42→17:13)
[2020-02-02] MEDS: PANTOPRAZOLE 40 MG TABLET PO SCH (06:34)
[2020-02-02 07:29] LABS: Basophils % (A) 0 %; Eosinophils # (A) 0.3 k/uL (0-0.7); Eosinophils % (A) 4 %; HCT 38.2 % (34.0-46.0); HGB 11.9 gm/dL (11.4-16.0); Hypochromasia Slight; Lymphocytes # (A) 0.7 k/uL (1.0-4.8); Lymphocytes % (A) 10 %; MCH 30.7 pg (25.0-35.0); MCHC 31.3 g/dL (31.0-37.0); MCV 98.1 fL (80.0-100.0); Mean Platelet Volume 7.5; Monocytes # (A) 0.3 k/uL (0-1.0); Monocytes % (A) 5 %; Neutrophils # (A) 5.6 k/uL (1.3-7.7); Neutrophils % (A) 80 %; Platelet Count 188 k/uL (150-450); RBC 3.89 m/uL (3.80-5.40); RDW 13.8 % (11.5-15.5)
[2020-02-02 07:40] LABS: Albumin 3.2 g/dL (3.5-5.0); Calcium 8.5 mg/dL (8.4-10.2); Total Bilirubin 1.6 mg/dL (0.2-1.3)
[2020-02-02 07:41] LABS: Potassium 4.6 mmol/L (3.5-5.1)
[2020-02-02] MEDS ORDERED: METOPROLOL SUCCINATE (ER) 100 MG TAB.ER.24H PO SCH (09:00)
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
[2020-02-02] MEDS: APIXABAN 5 MG TAB PO SCH ×2 (10:25→20:12)
[2020-02-02] MEDS: DILTIAZEM CD 240 MG CAP.ER.24H PO SCH (10:25)
[2020-02-02] MEDS: FUROSEMIDE 20 MG TAB PO SCH (10:25)
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
[2020-02-03] MEDS: PANTOPRAZOLE 40 MG TABLET PO SCH (06:29)
[2020-02-03] MEDS ORDERED: METOPROLOL SUCCINATE (ER) 50 MG TAB.ER.24H PO SCH (09:00)
[2020-02-03] MEDS: SODIUM CHLORIDE 0.9% 1,000 ML IV SCH (10:35)
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
[2020-02-03] MEDS: DILTIAZEM CD 240 MG CAP.ER.24H PO SCH (11:09)
[2020-02-03] MEDS: FUROSEMIDE 20 MG TAB PO SCH (11:09)
[2020-02-03] MEDS: APIXABAN 5 MG TAB PO SCH (11:09)
--- NOTE | 2020-02-03 11:10 | XR ---
EXAMINATION TYPE: XR knee complete LT DATE OF EXAM: 02/03/2020 CLINICAL HISTORY: pain TECHNIQUE: Three views of the left knee are obtained. COMPARISON: None. FINDINGS: There is no acute fracture/dislocation. Medial tibiofemoral joint space narrowing is moder ate in degree. The overlying soft tissue appears unremarkable. IMPRESSION: There is no acute fracture or dislocation ICD 10 NO FRACTURE, INITIAL EVALUATION
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
[2020-02-03 13:45] VITALS: BP 132/92; PULSE 102; RESP 18; TEMP 98.5
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
== END 2020-02-03 14:17 | disposition home or self-care (01) | DRG 309 ==
LOC: EC 20:54 → INTOOBSV 02-01 03:18 → 3SCARD 02-01 03:18 → OBSVTOIN 02-03 10:31
PROVIDERS: ADMIT Hospitalist; ATTEND Hospitalist
DX: I48.19 Other persistent atrial fibrillation (principal); I50.22 Chronic systolic (congestive) heart failure; I13.0 Hypertensive heart and chronic kidney disease with heart failure and stage 1 through stage 4 chronic kidney disease, or unspecified chronic kidney disease; S40.812A Abrasion of left upper arm, initial encounter; I42.9 Cardiomyopathy, unspecified; E78.5 Hyperlipidemia, unspecified; Z96.649 Presence of unspecified artificial hip joint; M25.552 Pain in left hip; M79.672 Pain in left foot; I25.10 Atherosclerotic heart disease of native coronary artery without angina pectoris; E66.9 Obesity, unspecified; R00.0 Tachycardia, unspecified; N18.3 Chronic kidney disease, stage 3 (moderate); E11.22 Type 2 diabetes mellitus with diabetic chronic kidney disease; S80.02XA Contusion of left knee, initial encounter; Z91.81 History of falling; Z87.891 Personal history of nicotine dependence; Z79.01 Long term (current) use of anticoagulants; Z79.899 Other long term (current) drug therapy; Z86.73 Personal history of transient ischemic attack (TIA), and cerebral infarction without residual deficits; I25.2 Old myocardial infarction; Y92.410 Unspecified street and highway as the place of occurrence of the external cause; Z68.35 Body mass index [BMI] 35.0-35.9, adult; Z90.89 Acquired absence of other organs; Z98.890 Other specified postprocedural states; Z82.49 Family history of ischemic heart disease and other diseases of the circulatory system; Z91.19 Patient's noncompliance with other medical treatment and regimen; V03.10XA Pedestrian on foot injured in collision with car, pick-up truck or van in traffic accident, initial encounter
CPT/HCPCS: 36415; 70450; 71045; 72125; 73502; 80053; 84484; 85025; 85730; 93005; 96374; 99285

== ENCOUNTER → 2020-11-18 | Outpatient (CLI) | payer MEDICARE, OTHER ==
--- NOTE | 2020-11-18 14:57 | CT ---
EXAMINATION TYPE: CT abdomen pelvis wo con DATE OF EXAM: 11/18/2020 HISTORY: abd pain, history of endometrial cancer CT DLP: 1116.30 mGycm. Automated Exposure Control for Dose Reduction was Utilized. TECHNIQUE: CT scan of the abdomen and pelvis is performed with oral but without rrIV contrast. COMPARISON: CT abdomen and pelvis August 30, 2018 FINDINGS: Within the limitations of a non-contrast study, the following observations are made. LUNG BASES: Cardiomegaly is redemonstrated. LIVER/GB: Persisting dependent calcified 2.0 cm gallstone and smaller calcified dependent gallstones. No new surrounding inflammatory change. PANCREAS: No significant abnormality is seen. SPLEEN: No significant abnormality is seen. ADRENALS: Stable size nonspecific left adrenal mass measuring 2.7 x 3.9 cm. KIDNEYS: Stable exophytic 1.5 cm hypodense lesion medially upper pole left kidney series 3 image 17. Reflect proteinaceous cyst. Additional near 1.0 cm hypodense and hyperdense lesions bilaterally are i dentified. New moderate right-sided hydronephrosis. No obstructing mass or calculus is clearly seen. There is tapering of the distal ureter. Visualized suspicious nonsimple exophytic cystic lesion anteriorly upper to mid pole of the right kid cierra is less prominent or not clearly seen on current study. BOWEL: The oral contrast reaches level of terminal ileum. No suspicious small or large bowel dilatati on. Diverticula in the left and sigmoid colon. No CT evidence for acute diverticulitis GENITAL ORGANS: Anteverted uterus redemonstrated. LYMPH NODES: No new greater than 1cm abdominal or pelvic lymph nodes are appreciated. OSSEOUS STRUCTURES: Multilevel facet arthropathy in the mid to lower lumbar spine. Metallic artifact from left hip arthroplasty causes streak artifact limiting evaluation of pelvic structures. Moderate narrowing in the right hip joint. OTHER: Moderate to severe calcified plaque of the aorta extends into branch vessels. IMPRESSION: New moderate right-sided hydronephrosis with etiology uncertain.
== END | disposition home or self-care (01) ==
LOC: RADCTMAIN 12:22
PROVIDERS: ATTEND Family Medicine
DX: N13.30 Unspecified hydronephrosis (principal)
CPT/HCPCS: 74176

== ENCOUNTER 2021-06-05 19:53 | Inpatient (IN) | payer MEDICARE, OTHER ==
--- NOTE | 2021-06-05 20:47 | XR ---
EXAMINATION TYPE: XR chest 2V DATE OF EXAM: 06/05/2021 COMPARISON: 01/31/2020 HISTORY: Weakness TECHNIQUE: 2 views FINDINGS: There is coarse interstitial infiltrate in both lungs. Heart is enlarged. There is no obvio us heart failure. There is no pleural effusion. There are chest leads. IMPRESSION: Coarse interstitial pneumonia is mostly new compared to old exam.
[2021-06-05 20:56] LABS: Basophils % (A) 0 %; Eosinophils # (A) 0.3 k/uL (0-0.7); Eosinophils % (A) 4 %; HCT 36.2 % (34.0-46.0); HGB 11.7 gm/dL (11.4-16.0); Lymphocytes # (A) 0.6 k/uL (1.0-4.8); Lymphocytes % (A) 8 %; MCH 31.1 pg (25.0-35.0); MCHC 32.3 g/dL (31.0-37.0); MCV 96.3 fL (80.0-100.0); Mean Platelet Volume 7.9; Monocytes # (A) 0.4 k/uL (0-1.0); Monocytes % (A) 5 %; Neutrophils # (A) 6.6 k/uL (1.3-7.7); Neutrophils % (A) 82 %; Platelet Count 301 k/uL (150-450); RBC 3.76 m/uL (3.80-5.40); RDW 13.5 % (11.5-15.5)
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
[2021-06-05 21:10] LABS: Albumin 2.4 g/dL (3.5-5.0); Calcium 7.9 mg/dL (8.4-10.2); INR 1.3 (<1.2); Magnesium 1.9 mg/dL (1.6-2.3); Partial Thromboplastin Time 25.9 sec (22.0-30.0); Potassium 3.7 mmol/L (3.5-5.1); Prothrombin Time 13.7 sec (9.0-12.0); Total Protein 5.2 g/dL (6.3-8.2)
[2021-06-05] MEDS ORDERED: ACETAMINOPHEN TAB 325 MG TAB PO PRN (22:35)
[2021-06-05] MEDS ORDERED: NALOXONE 0.4 MG/ML 1 ML VIAL IV PRN (22:35)
[2021-06-05] MEDS: SODIUM CHLORIDE 0.9% 1,000 ML IV SCH (22:57)
[2021-06-05] MEDS ORDERED: METOPROLOL TARTRATE 50 MG TAB PO SCH (23:00)
[2021-06-06] MEDS: APIXABAN 5 MG TAB PO SCH ×3 (00:44→19:57)
[2021-06-06] MEDS: NYSTATIN 100,000UNIT/GM CREAM 30 GM TUBE TOPICAL SCH ×4 (00:49→21:58)
[2021-06-06 03:09] LABS: Basophils % (A) 0 %; Calcium 8.6 mg/dL (8.4-10.2); Eosinophils # (A) 0.3 k/uL (0-0.7); Eosinophils % (A) 4 %; HCT 36.5 % (34.0-46.0); HGB 11.5 gm/dL (11.4-16.0); Hypochromasia Slight; Lymphocytes # (A) 0.6 k/uL (1.0-4.8); Lymphocytes % (A) 8 %; MCH 30.5 pg (25.0-35.0); MCHC 31.4 g/dL (31.0-37.0); MCV 97.1 fL (80.0-100.0); Mean Platelet Volume 7.9; Monocytes # (A) 0.4 k/uL (0-1.0); Monocytes % (A) 5 %; Neutrophils % (A) 81 %; Platelet Count 287 k/uL (150-450); Potassium 3.8 mmol/L (3.5-5.1); RBC 3.76 m/uL (3.80-5.40); RDW 13.6 % (11.5-15.5); WBC 7.5 k/uL (3.8-10.6)
[2021-06-06] MEDS ORDERED: CHOLECALCIFEROL 25 MCG (1000 IU) TABLET PO SCH (09:00)
[2021-06-06] MEDS ORDERED: METOPROLOL TARTRATE 50 MG TAB PO SCH (09:00)
[2021-06-06 12:59] LABS: Glucose,Whole Blood 140 mg/dL (75-99)
[2021-06-06] MEDS: INSULIN ASPART (NovoLOG) 100 UNIT/ML VIAL SQ SCH ×3 (13:03→21:57)
[2021-06-06] MEDS ORDERED: MELATONIN 3 MG TABLET PO PRN (17:00)
[2021-06-06] MEDS ORDERED: LORazepam 0.5 MG TAB PO PRN (17:00)
[2021-06-06] MEDS ORDERED: LACTULOSE 20 GM/30 ML CUP PO PRN (17:00)
[2021-06-06] MEDS ORDERED: ONDANSETRON 4 MG/2 ML VIAL IVP PRN (17:00)
[2021-06-06] MEDS ORDERED: CALCIUM CARBONATE 500 MG CHEWABLE PO PRN (17:00)
[2021-06-06] MEDS: ASCORBIC ACID 500 MG TAB PO SCH (17:07)
[2021-06-06] MEDS: dexAMETHasone 2 MG TAB PO SCH (17:07)
[2021-06-06] MEDS: CHOLECALCIFEROL 25 MCG (1000 IU) TABLET PO SCH (17:07)
[2021-06-06] MEDS: ZINC SULFATE 220 MG CAP PO SCH (17:07)
--- NOTE | 2021-06-06 17:13 | P.HPIM ---
History of Present Illness H&P Date: 06/06/21 Chief Complaint: Weak and tired This is a 75-year-old patient, follows with Dr. Maddox. Chronic stable medical conditions include atrial fibrillation, congestive heart failure EF 35%, hyperlipidemia, CAD, hypertension. She presented to ER with generalized weakness. She states she is pretty much been laying down on a couch for last 3 weeks and getting worse. She also had some chest pain duration unknown some shortness of breath. She was concerned about having an heart attack like she had in the past. Denies any fevers. She appetite has been down. She been having some loose stools. Lives alone. Someone brings her groceries about once a week. Did not take the COVID-19 vaccine. 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 Patient did test positive for the COVID. Patient did not take the COVID-19 vaccine Review of systems: GEN.: Tired decreased appetite EYES: None HEENT: None NECK: None RESPIRATORY: Cough some slight shortness of breath CARDIOVASCULAR: None GASTROINTESTINAL: Loose stools GENITOURINARY: None MUSCULOSKELETAL: Some joint pains, muscle weakness LYMPHATICS: None HEMATOLOGICAL: None PSYCHIATRY: None NEUROLOGICAL: None Past medical history to include: Stroke, atrial fibrillation, hyperlipidemia, CAD with stent, CHF with EF of 35, hyperlipidemia Social history: Lives alone. No alcohol. Patient smoked for 53 years 1 pack a day stopped in 2011 Family history: Aneurysm Physical examination: VITAL SIGNS: 97.5, 86, 19, 120/84, 94% on room air upon presentation, then 91% on 2 L GENERAL: BMI 30.4, laying in bed, awake, tired. EYES: Pupils equal. Conjunctiva normal. HEENT: External appearance of nose and ears normal, oral cavity grossly normal. NECK: JVD not raised; masses not palpable. HEART: Irregular heart sounds; no edema. LUNGS: Respiratory rate increased; decreased breath sounds. ABDOMEN: Soft, nontender, liver spleen not palpable, no masses palpable. DERMATOLOGICAL: Redness in the contiguousarea as in the groin PSYCH: Alert and oriented x3; mood and affect normal. NEUROLOGICAL: Cranial nerves grossly intact; no facial asymmetry, power and sensation grossly intact speech slightly slow MUSCULOSKELETAL: Evidence of OA. LYMPHATICS: No lymph nodes palpable in the axilla and neck INVESTIGATIONS, reviewed in the clinical context: White count 8 hemoglobin 11.7 platelets 301 d-dimer 3.08 sodium 140 potassium 3.7 bicarb 18 BUN 64 creatinine 1.67 Lactic acid 2.3 TSH 0.4 Coronavirus [PCR]: Detected EKG tracing personally reviewed by me-atrial fibrillation, rate [address]-T wave changes Chest x-ray film personally reviewed by me-bilateral infiltrates Previous labs: BUN 27 creatinine 1.14 [January 2020] 2-D echocardiogram: Moderate concentric LVH, EF 30-35%, mitral tricuspid regur gitation. Moderate pulmonary hypertension [September 2019]. Assessment and plan -Acute COVID-19 pneumonitis, with hypoxia, in a patient who did not take COVID- 19 vaccine. Symptoms have been present for greater than 10 days Dexamethasone 6 mg daily, vitamin C, vitamin D, zinc -Acute hypoxic respiratory failure with pulse ox 91% on 2 L Oxygen supplementation -Acute kidney injury possibly combination of prerenal and ATN from decreased oral intake IV fluids carefully given history of CHF -Acute metabolic acidosis from kidney disease Bicarbonate drip -Chronic congestive heart failure from systolic dysfunction EF 30-35% Follow clinically. 2-D echocardiogram -Acute intertriginous candidiasis in the groin area Nystatin powder twice a day -Acute medical debility from COVID-19/dehydration Fall precautions -CAd with a history of stent Lopressor 150 mg twice a day -Persistent atrial fibrillation, rate controlled Lopressor 150 mg twice daily. Eliquis 5 mg twice a day -Full code Dexamethasone 60 g. Resume home medications. Lopressor 150 mg twice a day. Fall precautions. 2-D echocardiogram. Continue eliquis. Bicarbonate drip. Telemetry. Given the complexity and severity of patient's condition expect the patient to be in the hospital at least for 2 overnights Past Medical History Past Medical History: Atrial Fibrillation, CVA/TIA, Hyperlipidemia, Myocardial Infarction ([place]) Additional Past Medical History / Comment(s): 07/27/17 FALL[employer] HIP FX. 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 Last Myocardial Infarction Date:: 2009 History of Any Multi-Drug Resistant Organisms: None Reported Past Surgical History: Heart Catheterization, Orthopedic Surgery, Tonsillectomy Additional Past Surgical History / Comment(s): ORIF RT ANKLE HAS PLATE. Past Anesthesia/Blood Transfusion Reactions: No Reported Reaction Past Psychological History: No Psychological Hx Reported Smoking Status: Never smoker Past Alcohol Use History: None Reported Past Drug Use History: None Reported - Past Family History Mother Family Medical History: No Reported History Additional Family Medical History / Comment(s): FROM ANUERYSM Father Family Medical History: No Reported History Medications and Allergies Home Medications Medication Instructions Recorded Confirmed Type Apixaban [Eliquis] 5 mg PO BID #60 tab 09/02/18 06/05/21 Rx Furosemide [Lasix] 20 mg PO DAILY 11/06/19 06/05/21 History Cholecalciferol [Vitamin D3 (25 25 mcg PO DAILY 06/05/21 06/05/21 History Mcg = 1000 Iu)] Linagliptin [Tradjenta] 5 mg PO DAILY 06/05/21 06/05/21 History Metoprolol Tartrate [Lopressor] 150 mg PO HS 06/05/21 06/05/21 History Metoprolol Tartrate [Lopressor] 200 mg PO DAILY 06/05/21 06/05/21 History Allergies Allergy/AdvReac Type Severity Reaction Status Date / Time No Known Allergies Allergy Verified 06/05/21 21:11 Physical Exam Vitals: Vital Signs Temp Pulse Pulse Resp BP BP Pulse Ox 06/06/21 10:42 100 18 116/76 91 L 06/06/21 06:21 73 17 112/71 93 L 06/06/21 00:50 93 16 112/71 94 L 06/05/21 19:57 97.5 F L 86 19 121/84 94 L Intake and Output 06/05/21 06/06/21 06/06/21 22:59 06:59 14:59 Other: Weight 90.718 kg Results CBC & Chem 7: 06/06/21 02:35 06/06/21 02:35 Labs: Abnormal Lab Results - Last 24 Hours (Table) 06/05/21 06/05/21 06/05/21 Range/Units 20:36 20:36 20:36 RBC 3.76 L (3.80-5.40) m/uL Lymphocytes # 0.6 L (1.0-4.8) k/uL PT 13.7 H (9.0-12.0) sec INR 1.3 H (<1.2) D-Dimer 3.08 H (<0.60) mg/L FEU Chloride 112 H (98-107) mmol/L Carbon Dioxide 18 L (22-30) mmol/L BUN 64 H (7-17) mg/dL Creatinine 1.67 H (0.52-1.04) mg/dL Glucose 191 H (74-99) mg/dL Plasma Lactic Acid Austin (0.7-2.0) mmol/L Calcium 7.9 L (8.4-10.2) mg/dL Total Protein 5.2 L (6.3-8.2) g/dL Albumin 2.4 L (3.5-5.0) g/dL TSH 0.402 L (0.465-4.680) mIU/L Coronavirus (PCR) (Not Detectd) 06/05/21 06/05/21 06/06/21 Range/Units 20:36 20:36 00:08 RBC (3.80-5.40) m/uL Lymphocytes # (1.0-4.8) k/uL PT (9.0-12.0) sec INR (<1.2) D-Dimer (<0.60) mg/L FEU Chloride (98-107) mmol/L Carbon Dioxide (22-30) mmol/L BUN (7-17) mg/dL Creatinine (0.52-1.04) mg/dL Glucose (74-99) mg/dL Plasma Lactic Acid Austin 2.3 H* 2.4 H* (0.7-2.0) mmol/L Calcium (8.4-10.2) mg/dL Total Protein (6.3-8.2) g/dL Albumin (3.5-5.0) g/dL TSH (0.465-4.680) mIU/L Coronavirus (PCR) Detected A (Not Detectd) 06/06/21 06/06/21 Range/Units 02:35 02:35 RBC 3.76 L (3.80-5.40) m/uL Lymphocytes # 0.6 L (1.0-4.8) k/uL PT (9.0-12.0) sec INR (<1.2) D-Dimer (<0.60) mg/L FEU Chloride 111 H (98-107) mmol/L Carbon Dioxide 19 L (22-30) mmol/L BUN 63 H (7-17) mg/dL Creatinine 1.66 H (0.52-1.04) mg/dL Glucose 169 H (74-99) mg/dL Plasma Lactic Acid Austin (0.7-2.0) mmol/L Calcium (8.4-10.2) mg/dL Total Protein (6.3-8.2) g/dL Albumin (3.5-5.0) g/dL TSH (0.465-4.680) mIU/L Coronavirus (PCR) (Not Detectd)
[2021-06-06] MEDS: SODIUM CHLORIDE 0.9% 1,000 ML IV SCH (17:17)
[2021-06-06 18:15] LABS: Glucose,Whole Blood 186 mg/dL (75-99)
[2021-06-06] MEDS: DEXTROSE 5% IN WATER 1,000 ML with SODIUM BICARB (1 MEQ/ML) 50 ML IV SCH (18:59)
[2021-06-06] MEDS: METOPROLOL TARTRATE 50 MG TAB PO SCH (19:57)
[2021-06-06] MEDS: PSYLLIUM HUSK 100% 6 GM PACKET PO SCH (19:57)
[2021-06-06] MEDS: NYSTATIN 100,000 UNIT/GM POWD 15 GM TOPICAL SCH (19:58)
[2021-06-06 21:11] LABS: Glucose,Whole Blood 147 mg/dL (75-99)
--- NOTE | 2021-06-06 23:37 | P.CONS ---
History of Present Illness - Reason for Consult Consult date: 06/06/21 COVID-19 infection Requesting physician: Biju Sanabria - Chief Complaint Weakness and not feeling well x few weeks - History of Present Illness Patient is a 75 year female with a past medical history significant for CVA and A. fib in this patient presented to the hospital last night for evaluation of generalized weakness patient mentioned her symptoms have been getting worse over the last 3-4 weeks patient complaining of some substernal chest pressure and has been feeling short of breath on minimal exertion and even at rest patient has been complaining of some cough is mostly mild and right knee chills, came in complaining of decreased appetite and has not eaten much for the last few days patient also complaining of diarrhea but no blood or mucus in the stool in this patient who is not vaccinated for COVID-19, patient on presentation to the hospital was afebrile and no fever have been recorded subsequently patient did have normal white count with mild lymphopenia. Creatinine was mildly elevated inflammatory markers were not checked patient did have a chest x-ray with evidence of coarse interstitial pneumonia is mostly new compared oral exam, patient did have positive covid test, patient has been admitted to the hospital infectious disease was consulted for further management Review of Systems Positive point has been mentioned in the HPI rest of the systems are negative Past Medical History Past Medical History: Atrial Fibrillation, CVA/TIA, Hyperlipidemia, Myocardial Infarction ([place]) Additional Past Medical History / Comment(s): 07/27/17 FALL'[employer] HIP FX. OTHER HX"BOARDERLINE DIABETIC- NO MEDS BUT CHECKS BS ONCE A DAY,CVA/TIA 2011 NO RESIDU AL EEFECTS, RT ANKLE BROKEN-(SX DONE HAD PLATE), PAST STRESS TEST. Last Myocardial Infarction Date:: 2009 History of Any Multi-Drug Resistant Organisms: None Reported Past Surgical History: Heart Catheterization, Orthopedic Surgery, Tonsillectomy Additional Past Surgical History / Comment(s): ORIF RT ANKLE HAS PLATE. Past Anesthesia/Blood Transfusion Reactions: No Reported Reaction Past Psychological History: No Psychological Hx Reported Smoking Status: Never smoker Past Alcohol Use History: None Reported Past Drug Use History: None Reported - Past Family History Mother Family Medical History: No Reported History Additional Family Medical History / Comment(s): FROM ANUERYSM Father Family Medical History: No Reported History Medications and Allergies Home Medications Medication Instructions Recorded Confirmed Type Apixaban [Eliquis] 5 mg PO BID #60 tab 09/02/18 06/05/21 Rx Furosemide [Lasix] 20 mg PO DAILY 11/06/19 06/05/21 History Cholecalciferol [Vitamin D3 (25 25 mcg PO DAILY 06/05/21 06/05/21 History Mcg = 1000 Iu)] Linagliptin [Tradjenta] 5 mg PO DAILY 06/05/21 06/05/21 History Metoprolol Tartrate [Lopressor] 150 mg PO HS 06/05/21 06/05/21 History Metoprolol Tartrate [Lopressor] 200 mg PO DAILY 06/05/21 06/05/21 History Allergies Allergy/AdvReac Type Severity Reaction Status Date / Time No Known Allergies Allergy Verified 06/05/21 21:11 Physical Exam Vitals: Vital Signs Temp Pulse Pulse Resp BP BP Pulse Ox 06/06/21 20:00 97.3 F L 86 20 134/94 92 L 06/06/21 16:00 98.9 F 91 16 115/75 93 L 06/06/21 12:55 97.3 F L 87 18 109/80 93 L 06/06/21 10:42 100 18 116/76 91 L 06/06/21 08:00 87 06/06/21 06:21 73 17 112/71 93 L 06/06/21 00:50 93 16 112/71 94 L Intake and Output 06/06/21 06/06/21 06/07/21 14:59 22:59 06:59 Other: # Voids 2 # Bowel Movements 2 GENERAL DESCRIPTION: An elderly female lying in bed, no distress. No tachypnea or accessory muscle of respiration use. HEENT: Shows Pallor , no scleral icterus. Oral mucous membrane is dry. No pharyngeal erythema or thrush NECK: Trachea central, no thyromegaly. LUNGS: Unlabored breathing. Decreased intensity of breath sounds. No wheeze or crackle. HEART: S1, S2, regular rate and rhythm. No loud murmur ABDOMEN: Soft, no tenderness , guarding or rigidity, no organomegaly EXTREMITIES: No edema of feet. SKIN: No rash, no masses palpable. Groin area erythematous rash secondary to Cutaneous candidiasis NEUROLOGICAL: The patient is awake, alert, oriented x3, mood and affect normal. Results CBC & Chem 7: 06/06/21 02:35 06/06/21 02:35 Labs: Abnormal Lab Results - Last 24 Hours (Table) 06/06/21 06/06/21 06/06/21 Range/Units 00:08 02:35 02:35 RBC 3.76 L (3.80-5.40) m/uL Lymphocytes # 0.6 L (1.0-4.8) k/uL Chloride 111 H (98-107) mmol/L Carbon Dioxide 19 L (22-30) mmol/L BUN 63 H (7-17) mg/dL Creatinine 1.66 H (0.52-1.04) mg/dL Glucose 169 H (74-99) mg/dL POC Glucose (mg/dL) (75-99) mg/dL Plasma Lactic Acid Austin 2.4 H* (0.7-2.0) mmol/L 06/06/21 06/06/21 06/06/21 Range/Units 12:57 18:13 20:49 RBC (3.80-5.40) m/uL Lymphocytes # (1.0-4.8) k/uL Chloride (98-107) mmol/L Carbon Dioxide (22-30) mmol/L BUN (7-17) mg/dL Creatinine (0.52-1.04) mg/dL Glucose (74-99) mg/dL POC Glucose (mg/dL) 140 H 186 H 147 H (75-99) mg/dL Plasma Lactic Acid Austin (0.7-2.0) mmol/L Assessment and Plan Assessment: 1-patient presented to the hospital with generalized weakness decreased appetite shortness of breath and cough chest x-ray with interstitial infiltrate in this patient did have a positive covid test however symptom has been going on for more than 3 weeks and is currently out of the therapeutic window for Remdisivir per [facility] policy more likely mild achiness and no evidence of any secondary bacterial pneumonia 2-patient with extensive groin area cutaneous candidiasis no evidence of any secondary cellulitis (1) Cutaneous candidiasis Current Visit: Yes Status: Acute Code(s): B37.2 - CANDIDIASIS OF SKIN AND NAIL SNOMED Code(s): 67950347 (2) COVID-19 Current Visit: Yes Status: Acute Code(s): U07.1 - COVID-19 SNOMED Code(s): 547977184 Plan: 1-patient with continued on dexamethasone eliquis zinc and ascorbic acid 2-nystatin powder to bilateral groin area twice a day 3-droplet isolation and respiratory support We will follow on clinical condition and cultures to further adjust medication if needed Thank you for this consultation will follow this patient with you Time with Patient: Greater than 30
[2021-06-07 06:13] LABS: Glucose,Whole Blood 292 mg/dL (75-99)
[2021-06-07] MEDS: INSULIN ASPART (NovoLOG) 100 UNIT/ML VIAL SQ SCH ×4 (06:13→20:33)
[2021-06-07 07:02] LABS: C Reactive Protein 4.7 mg/dL (<1.0); Calcium 8.6 mg/dL (8.4-10.2); Potassium 4.1 mmol/L (3.5-5.1)
[2021-06-07 07:40] LABS: Appearance,Urine Cloudy (Clear); Bacteria,Urine Rare /hpf; Bilirubin,Urine Negative (Negative); Blood,Urine Small (Negative); Color,Urine Yellow; Glucose,Urine (UA) Trace (Negative); Hyaline Casts,Urine 1 /lpf (0-2); Ketones,Urine Negative (Negative); Leukocyte Esterase,Urine Moderate (Negative); Mucus,Urine Rare /hpf; Nitrite,Urine Negative (Negative); PH, Urine 5.5 (5.0-8.0); Protein,Urine 1+ (Negative); RBC,Urine 3 /hpf (0-5); Specific Gravity,Urine 1.023 (1.001-1.035); Squamous Epithelial Cell,Urine 2 /hpf (0-4); WBC,Urine 24 /hpf (0-5)
[2021-06-07] MEDS: DEXTROSE 5% IN WATER 1,000 ML with SODIUM BICARB (1 MEQ/ML) 50 ML IV SCH (09:53)
[2021-06-07] MEDS: CHOLECALCIFEROL 25 MCG (1000 IU) TABLET PO SCH (09:54)
[2021-06-07] MEDS: ZINC SULFATE 220 MG CAP PO SCH (09:54)
[2021-06-07] MEDS: ASCORBIC ACID 500 MG TAB PO SCH (09:54)
[2021-06-07] MEDS: NYSTATIN 100,000UNIT/GM CREAM 30 GM TUBE TOPICAL SCH ×3 (09:54→20:33)
[2021-06-07] MEDS: NYSTATIN 100,000 UNIT/GM POWD 15 GM TOPICAL SCH ×2 (09:54→20:33)
[2021-06-07] MEDS: dexAMETHasone 2 MG TAB PO SCH (09:54)
[2021-06-07] MEDS: APIXABAN 5 MG TAB PO SCH ×2 (09:54→20:33)
[2021-06-07] MEDS: METOPROLOL TARTRATE 50 MG TAB PO SCH ×2 (09:54→20:32)
[2021-06-07] MEDS: PSYLLIUM HUSK 100% 6 GM PACKET PO SCH ×2 (09:56→20:32)
[2021-06-07 11:46] LABS: Glucose,Whole Blood 292 mg/dL (75-99)
--- NOTE | 2021-06-07 15:03 | P.PN ---
Progress Note - Text Progress Note Date: 06/07/21 Chief Complaint: Weak and tired This is a 75-year-old patient, follows with Dr. Maddox. Chronic stable medical conditions include atrial fibrillation, congestive heart failure EF 35%, hyperlipidemia, CAD, hypertension. She presented to ER with generalized weakness. She states she is pretty much been laying down on a couch for last 3 weeks and getting worse. She also had some chest pain duration unknown some shortness of breath. She was concerned about having an heart attack like she had in the past. Denies any fevers. She appetite has been down. She been having some loose stools. Lives alone. Someone brings her groceries about once a week. Did not take the COVID-19 vaccine. 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 Patient did test positive for the COVID. Patient did not take the COVID-19 vaccine Admitted with COVID 19 pneumonitis, acute hypoxic respiratory failure, acute kidney injury, metabolic acidosis. Started on dexamethasone, bicarbonate drip. June 07: Decrease appetite. Some shortness of breath. Tired. Getting bica rbonate drip. Have the patient sit up in a chair. Start using incentive spirometry. Still having some diarrhea. Change diet to a chopped diet Review of systems: Was done for constitutional, cardiovascular, GI, pulmonary. relevant finding as above Active Medications Acetaminophen (Acetaminophen Tab 325 Mg Tab) 650 mg PO Q6HR PRN PRN Reason: Mild Pain or Fever > 100.5 Last Admin: 06/06/21 11:02 Dose: 650 mg Documented by: Apixaban (Apixaban 5 Mg Tab) 5 mg PO BID [facility]; Protocol Last Admin: 06/07/21 09:54 Dose: 5 mg Documented by: Ascorbic Acid (Ascorbic Acid 500 Mg Tab) 1,000 mg PO DAILY [facility] Last Admin: 06/07/21 09:54 Dose: 1,000 mg Documented by: Calcium Carbonate/Glycine (Calcium Carbonate 500 Mg Chewable) 1,000 mg PO Q4HR PRN PRN Reason: Dyspepsia Cholecalciferol (Cholecalciferol 25 Mcg (1000 Iu) Tablet) 100 mcg PO DAILY [facility] Last Admin: 06/07/21 09:54 Dose: 100 mcg Documented by: Dexamethasone (Dexamethasone 2 Mg Tab) 6 mg PO DAILY [facility] Last Admin: 06/07/21 09:54 Dose: 6 mg Documented by: Sodium Bicarbonate 50 ml/ (Dextrose/Water) 1,050 mls @ 75 mls/hr IV .Q14H [facility] Last Admin: 06/07/21 09:53 Dose: 75 mls/hr Documented by: Insulin Aspart (Insulin Aspart (Novolog) 100 Unit/Ml Vial) 0 unit SQ ACHS [facility]; Protocol Last Admin: 06/07/21 12:19 Dose: 5 unit Documented by: Lactulose (Lactulose 20 Gm/30 Ml Cup) 20 gm PO DAILY PRN PRN Reason: Constipation Lorazepam (Lorazepam 0.5 Mg Tab) 0.5 mg PO Q6HR PRN PRN Reason: Anxiety Melatonin (Melatonin 3 Mg Tablet) 3 mg PO HS PRN PRN Reason: Insomnia Metoprolol Tartrate (Metoprolol Tartrate 50 Mg Tab) 150 mg PO BID [facility] Last Admin: 06/07/21 09:54 Dose: 150 mg Documented by: Naloxone HCl (Naloxone 0.4 Mg/Ml 1 Ml Vial) 0.2 mg IV Q2M PRN PRN Reason: Opioid Reversal Nystatin (Nystatin 100,000unit/Gm Cream 30 Gm Tube) 1 applic TOPICAL TID [facility]; Protocol Last Admin: 06/07/21 09:54 Dose: 1 applic Documented by: Nystatin (Nystatin 100,000 Unit/Gm Powd 15 Gm) 1 applic TOPICAL BID [facility]; Protocol Last Admin: 06/07/21 09:54 Dose: 1 applic Documented by: Ondansetron HCl (Ondansetron 4 Mg/2 Ml Vial) 4 mg IVP Q8HR PRN PRN Reason: Nausea And Vomiting Psyllium Hydrophilic Mucilloid (Psyllium Husk 100% 6 Gm Packet) 6 gm PO BID [facility] Last Admin: 06/07/21 09:56 Dose: 6 gm Documented by: Zinc Sulfate (Zinc Sulfate 220 Mg Cap) 220 mg PO DAILY [facility] Last Admin: 06/07/21 09:54 Dose: 220 mg Documented by: Past medical history to include: Stroke, atrial fibrillation, hyperlipidemia, CAD with stent, CHF with EF of 35, hyperlipidemia Social history: Lives alone. No alcohol. Patient smoked for 53 years 1 pack a day stopped in 2011 Family history: Aneurysm Physical examination: VITAL SIGNS: 97.4, 77, 18, 132.75, 93% on room air GENERAL: Laying in bed, awake, tired LUNGS: Respiratory rate increased; PSYCH: Alert and oriented x3; mood and affect normal. NEUROLOGICAL: Cranial nerves grossly intact; no facial asymmetry, moving all 4 limbs INVESTIGATIONS, reviewed in the clinical context: June 07: D-dimer 1.96 sodium 136 potassium 4.1 BUN 50 creatinine 1.2 to Accu-Cheks to 92. Bicarbonate 15 White count 8 hemoglobin 11.7 platelets 301 d-dimer 3.08 sodium 140 potassium 3.7 bicarb 18 BUN 64 creatinine 1.67 Lactic acid 2.3 TSH 0.4 Coronavirus [PCR]: Detected EKG tracing personally reviewed by me-atrial fibrillation, rate [address]-T wave changes Chest x-ray film personally reviewed by me-bilateral infiltrates Previous labs: BUN 27 creatinine 1.14 [January 2020] 2-D echocardiogram: Moderate concentric LVH, EF 30-35%, mitral tricuspid regurgitation. Moderate pulmonary hypertension [September 2019]. Assessment and plan -Acute COVID-19 pneumonitis, with hypoxia, in a patient who did not take COVID- 19 vaccine. Symptoms have been present for greater than 10 days Dexamethasone 6 mg daily, vitamin C, vitamin D, zinc -Acute diarrhea secondary to COVID-19 Metamucil -Acute hypoxic respiratory failure with pulse ox 91% on 2 L upon presentation Oxygen supplementation -Acute kidney injury possibly combination of prerenal and ATN from decreased oral intake: Slow to respond IV fluids carefully given history of CHF -Acute metabolic acidosis from kidney disease: Slow to respond Bicarbonate drip -Chronic congestive heart failure from systolic dysfunction EF 30-35% Follow clinically. 2-D echocardiogram -Acute intertriginous candidiasis in the groin area Nystatin powder twice a day -Acute medical debility from COVID-19/dehydration Fall precautions -CAd with a history of stent Lopressor 150 mg twice a day -Persistent atrial fibrillation, rate controlled Lopressor 150 mg twice daily. Eliquis 5 mg twice a day -Full code Dexamethasone 6mg. Bicarbonate drip. Telemetry. Discussed with patient. Encourage oral intake. Incentive spirometry. Sitting up in a chair.
[2021-06-07 16:39] LABS: Glucose,Whole Blood 306 mg/dL (75-99)
[2021-06-07 20:29] LABS: Glucose,Whole Blood 266 mg/dL (75-99)
[2021-06-08] MEDS: DEXTROSE 5% IN WATER 1,000 ML with SODIUM BICARB (1 MEQ/ML) 50 ML IV SCH ×2 (01:49→20:58)
[2021-06-08] MEDS: INSULIN ASPART (NovoLOG) 100 UNIT/ML VIAL SQ SCH ×4 (06:25→21:03)
[2021-06-08 06:28] LABS: Glucose,Whole Blood 218 mg/dL (75-99)
[2021-06-08] MEDS: CHOLECALCIFEROL 25 MCG (1000 IU) TABLET PO SCH (08:04)
[2021-06-08] MEDS: ASCORBIC ACID 500 MG TAB PO SCH (08:04)
[2021-06-08] MEDS: ZINC SULFATE 220 MG CAP PO SCH (08:04)
[2021-06-08] MEDS: APIXABAN 5 MG TAB PO SCH ×2 (08:04→21:03)
[2021-06-08] MEDS: dexAMETHasone 2 MG TAB PO SCH (08:04)
[2021-06-08] MEDS: METOPROLOL TARTRATE 50 MG TAB PO SCH ×2 (08:04→21:02)
[2021-06-08] MEDS: NYSTATIN 100,000UNIT/GM CREAM 30 GM TUBE TOPICAL SCH ×3 (08:05→21:04)
[2021-06-08] MEDS: PSYLLIUM HUSK 100% 6 GM PACKET PO SCH ×2 (08:05→21:02)
[2021-06-08] MEDS: NYSTATIN 100,000 UNIT/GM POWD 15 GM TOPICAL SCH ×2 (08:05→21:04)
[2021-06-08 08:20] LABS: Potassium 3.6 mmol/L (3.5-5.1)
[2021-06-08 08:21] LABS: Calcium 9.3 mg/dL (8.4-10.2)
[2021-06-08 11:54] LABS: Glucose,Whole Blood 240 mg/dL (75-99)
[2021-06-08 17:00] LABS: Glucose,Whole Blood 388 mg/dL (75-99)
[2021-06-08 20:17] LABS: Glucose,Whole Blood 346 mg/dL (75-99)
--- NOTE | 2021-06-08 21:00 | P.PN ---
Progress Note - Text Progress Note Date: 06/08/21 Chief Complaint: Weak and tired This is a 75-year-old patient, follows with Dr. Maddox. Chronic stable medical conditions include atrial fibrillation, congestive heart failure EF 35%, hyperlipidemia, CAD, hypertension. She presented to ER with generalized weakness. She states she is pretty much been laying down on a couch for last 3 weeks and getting worse. She also had some chest pain duration unknown some shortness of breath. She was concerned about having an heart attack like she had in the past. Denies any fevers. She appetite has been down. She been having some loose stools. Lives alone. Someone brings her groceries about once a week. Did not take the COVID-19 vaccine. 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 Patient did test positive for the COVID. Patient did not take the COVID-19 vaccine Admitted with COVID 19 pneumonitis, acute hypoxic respiratory failure, acute kidney injury, metabolic acidosis. Started on dexamethasone, bicarbonate drip. June 07: Decrease appetite. Some shortness of breath. Tired. Getting bica rbonate drip. Have the patient sit up in a chair. Start using incentive spirometry. Still having some diarrhea. Change diet to a chopped diet June 08: Feels tired. Oral intake better. 90% on room air. Awaiting input from PTOT. Review of systems: Was done for constitutional, cardiovascular, GI, pulmonary. relevant finding as above Active Medications Acetaminophen (Acetaminophen Tab 325 Mg Tab) 650 mg PO Q6HR PRN PRN Reason: Mild Pain or Fever > 100.5 Last Admin: 06/06/21 11:02 Dose: 650 mg Documented by: Apixaban (Apixaban 5 Mg Tab) 5 mg PO BID [facility]; Protocol Last Admin: 06/08/21 08:04 Dose: 5 mg Documented by: Ascorbic Acid (Ascorbic Acid 500 Mg Tab) 1,000 mg PO DAILY [facility] Last Admin: 06/08/21 08:04 Dose: 1,000 mg Documented by: Calcium Carbonate/Glycine (Calcium Carbonate 500 Mg Chewable) 1,000 mg PO Q4HR PRN PRN Reason: Dyspepsia Cholecalciferol (Cholecalciferol 25 Mcg (1000 Iu) Tablet) 100 mcg PO DAILY [facility] Last Admin: 06/08/21 08:04 Dose: 100 mcg Documented by: Dexamethasone (Dexamethasone 2 Mg Tab) 6 mg PO DAILY [facility] Last Admin: 06/08/21 08:04 Dose: 6 mg Documented by: Sodium Bicarbonate 50 ml/ (Dextrose/Water) 1,050 mls @ 75 mls/hr IV .Q14H [facility] Last Admin: 06/08/21 01:49 Dose: Not Given Documented by: Insulin Aspart (Insulin Aspart (Novolog) 100 Unit/Ml Vial) 0 unit SQ ACHS [facility]; Protocol Last Admin: 06/08/21 17:34 Dose: 7 unit Documented by: Lactulose (Lactulose 20 Gm/30 Ml Cup) 20 gm PO DAILY PRN PRN Reason: Constipation Lorazepam (Lorazepam 0.5 Mg Tab) 0.5 mg PO Q6HR PRN PRN Reason: Anxiety Melatonin (Melatonin 3 Mg Tablet) 3 mg PO HS PRN PRN Reason: Insomnia Metoprolol Tartrate (Metoprolol Tartrate 50 Mg Tab) 150 mg PO BID [facility] Last Admin: 06/08/21 08:04 Dose: 150 mg Documented by: Naloxone HCl (Naloxone 0.4 Mg/Ml 1 Ml Vial) 0.2 mg IV Q2M PRN PRN Reason: Opioid Reversal Nystatin (Nystatin 100,000unit/Gm Cream 30 Gm Tube) 1 applic TOPICAL TID [facility]; Protocol Last Admin: 06/08/21 15:16 Dose: 1 applic Documented by: Nystatin (Nystatin 100,000 Unit/Gm Powd 15 Gm) 1 applic TOPICAL BID [facility]; Protocol Last Admin: 06/08/21 08:05 Dose: 1 applic Documented by: Ondansetron HCl (Ondansetron 4 Mg/2 Ml Vial) 4 mg IVP Q8HR PRN PRN Reason: Nausea And Vomiting Psyllium Hydrophilic Mucilloid (Psyllium Husk 100% 6 Gm Packet) 6 gm PO BID [facility] Last Admin: 06/08/21 08:05 Dose: 6 gm Documented by: Zinc Sulfate (Zinc Sulfate 220 Mg Cap) 220 mg PO DAILY [facility] Last Admin: 06/08/21 08:04 Dose: 220 mg Documented by: Past medical history to include: Stroke, atrial fibrillation, hyperlipidemia, CAD with stent, CHF with EF of 35, hyperlipidemia Social history: Lives alone. No alcohol. Patient smoked for 53 years 1 pack a day stopped in 2011 Family history: Aneurysm Physical examination: VITAL SIGNS: Afebrile, 82, 18, 1 4165, 90% on room air GENERAL: Laying in bed, awake, tired LUNGS: Respiratory rate increased; PSYCH: Alert and oriented x3; mood and affect normal. NEUROLOGICAL: Cranial nerves grossly intact; no facial asymmetry, moving all 4 limbs Rest of the exam per nursing INVESTIGATIONS, reviewed in the clinical context: June 08: Potassium 3.6 creatinine 1.07 June 07: D-dimer 1.96 sodium 136 potassium 4.1 BUN 50 creatinine 1.2 to Accu-Cheks to 92. Bicarbonate 15 White count 8 hemoglobin 11.7 platelets 301 d-dimer 3.08 sodium 140 potassium 3.7 bicarb 18 BUN 64 creatinine 1.67 Lactic acid 2.3 TSH 0.4 Coronavirus [PCR]: Detected EKG tracing personally reviewed by me-atrial fibrillation, rate [address]-T wave changes Chest x-ray film personally reviewed by me-bilateral infiltrates Previous labs: BUN 27 creatinine 1.14 [January 2020] 2-D echocardiogram: Moderate concentric LVH, EF 30-35%, mitral tricuspid regurgitation. Moderate pulmonary hypertension [September 2019]. Assessment and plan -Acute COVID-19 pneumonitis, with hypoxia, in a patient who did not take COVID- 19 vaccine. Symptoms have been present for greater than 10 days Dexamethasone 6 mg daily, vitamin C, vitamin D, zinc -Acute diarrhea secondary to COVID-19: Better Metamucil -Acute hypoxic respiratory failure with pulse ox 91% on 2 L upon presentation Oxygen supplementation -Acute kidney injury possibly combination of prerenal and ATN from decreased oral intake: Slow to respond IV fluids carefully given history of CHF -Acute metabolic acidosis from kidney disease: Better Bicarbonate drip-discontinue -Chronic congestive heart failure from systolic dysfunction EF 30-35% Follow clinically. 2-D echocardiogram -Acute intertriginous candidiasis in the groin area Nystatin powder twice a day -Acute medical debility from COVID-19/dehydration Fall precautions -CAd with a history of stent Lopressor 150 mg twice a day -Persistent atrial fibrillation, rate controlled Lopressor 150 mg twice daily. Eliquis 5 mg twice a day -Full code Dexamethasone 6mg. Bicarbonate drip discontinue. PTOT. Improving
[2021-06-08] MEDS: INSULIN DETEMIR (LEVEMIR) 100 UNIT/ML SYR SQ SCH (21:51)
[2021-06-09] MEDS: DEXTROSE 5% IN WATER 1,000 ML with SODIUM BICARB (1 MEQ/ML) 50 ML IV SCH ×2 (02:15→12:44)
[2021-06-09] MEDS: INSULIN ASPART (NovoLOG) 100 UNIT/ML VIAL SQ SCH ×4 (06:17→22:08)
[2021-06-09 06:18] LABS: Glucose,Whole Blood 182 mg/dL (75-99)
[2021-06-09] MEDS: ASCORBIC ACID 500 MG TAB PO SCH (09:09)
[2021-06-09] MEDS: ZINC SULFATE 220 MG CAP PO SCH (09:09)
[2021-06-09] MEDS: PSYLLIUM HUSK 100% 6 GM PACKET PO SCH ×2 (09:09→22:09)
[2021-06-09] MEDS: APIXABAN 5 MG TAB PO SCH ×2 (09:09→22:07)
[2021-06-09] MEDS: dexAMETHasone 2 MG TAB PO SCH (09:09)
[2021-06-09] MEDS: NYSTATIN 100,000 UNIT/GM POWD 15 GM TOPICAL SCH ×2 (09:10→22:08)
[2021-06-09] MEDS: CHOLECALCIFEROL 25 MCG (1000 IU) TABLET PO SCH (09:10)
[2021-06-09] MEDS: NYSTATIN 100,000UNIT/GM CREAM 30 GM TUBE TOPICAL SCH ×3 (09:10→22:08)
[2021-06-09] MEDS: METOPROLOL TARTRATE 50 MG TAB PO SCH ×2 (09:10→22:07)
--- NOTE | 2021-06-09 11:00 | ECHOF ---
Referral Reason:CHF MEASUREMENTS -------- HEIGHT: 172.7 cm WEIGHT: 95.7 kg BP: RVIDd: 1.9 cm (< 3.3) IVSd: 1.1 cm (0.6 - 1.1) LVIDd: 3.6 cm (3.9 - 5.3) LVPWd: 1.5 cm (0.6 - 1.1) IVSs: 1.6 cm LVIDs: 2.4 cm LVPWs: 1.7 cm AR PHT: 858 ms RAP: 5.00 mmHg RVSP: 40.81 mmHg FINDINGS -------- Atrial fibrillation. This was a technically difficult study with suboptimal views. Limited study due to covid 19 exposur e. The left ventricular size is normal. There is moderate concentric left ventricular hypertrophy. O verall left ventricular systolic function is normal with, an EF between 55 - 60 %. There is mild aortic regurgitation. Mild mitral regurgitation is present. The tricuspid valve appears structurally normal. Mild tricuspid regurgitation present. There is m ild pulmonary hypertension. The right ventricular systolic pressure, as measured by Doppler, is 40. 81mmHg. There is no pericardial effusion. CONCLUSIONS -------- 1. Limited study due to covid 19 exposure. 2. The left ventricular size is normal. 3. There is moderate concentric left ventricular hypertrophy. 4. Overall left ventricular systolic function is normal with, an EF between 55 - 60 %. 5. There is mild aortic regurgitation. 6. Mild mitral regurgitation is present. 7. Mild tricuspid regurgitation present. 8. There is mild pulmonary hypertension. 9. The right ventricular systolic pressure, as measured by Doppler, is 40.81mmHg. 10. There is no pericardial effusion. [employer]: Aileen Lozano, [facility]
[2021-06-09 11:52] LABS: Glucose,Whole Blood 211 mg/dL (75-99)
--- NOTE | 2021-06-09 14:17 | P.PN ---
Subjective Progress Note Date: 06/07/21 Principal diagnosis: 1- Covid 19 pneumonia 2-groin area cutaneous candidiasis Patient is a 75-year-old female with a past medical history significant for CVA A. fib presented to hospital with generalized weakness symptom going on for 3-4 weeks and has been diagnosed with acute covid 19 infection, in this patient also have evidence of extensive bilateral groin area cutaneous candidiasis. On today's evaluation that is 06/07/2021, the patient denies having any fever or chills, the patient is breathing slightly comfortably, patient denies having any chest pain no worsening cough or sputum production continued to complain of feeling weak no abdominal pain or any worsening pain to the bilateral groin area Objective - Vital Signs Vital signs: Vital Signs Temp 97.4 F L 06/07/21 08:00 Pulse 90 06/07/21 16:00 Resp 18 06/07/21 14:00 BP 136/62 06/07/21 16:00 Pulse Ox 93 L 06/07/21 16:00 Intake & Output 06/06/21 06/07/21 06/07/21 18:59 06:59 18:59 Intake Total 118 Output Total 200 Balance -82 Weight 96 kg Intake: Oral 118 Output: Urine 200 Other: # Voids 2 1 2 # Bowel Movements 2 1 - Exam GENERAL DESCRIPTION:GENERAL DESCRIPTION:[ Patient is awake and alert in no distress] HEENT: [Oral mucosa is dry and no pharyngeal erythema] EYES : [No pallor or scleral icterus] RESPIRATORY SYSTEM: [Unlabored breathing decreased intensity of breath sounds] CARDIA VASCULAR SYSTEM: [S1-S2 regular rate and rhythm ] GI: [Abdominal soft there's no tenderness no organomegaly] Groin area erythematous rash slightly decreased EXTREMITIES: [No edema feet] - Labs CBC & Chem 7: 06/06/21 02:35 06/08/21 07:29 Labs: Abnormal Lab Results - Last 24 Hours (Table) 06/06/21 06/07/21 06/07/21 Range/Units 20:49 05:49 05:49 D-Dimer 1.96 H (<0.60) mg/L FEU Sodium 136 L (137-145) mmol/L Chloride 109 H (98-107) mmol/L Carbon Dioxide 15 L (22-30) mmol/L BUN 50 H (7-17) mg/dL Creatinine 1.22 H (0.52-1.04) mg/dL Glucose 303 H (74-99) mg/dL POC Glucose (mg/dL) 147 H (75-99) mg/dL C-Reactive Protein 4.7 H (<1.0) mg/dL Urine Appearance (Clear) Urine Protein (Negative) Urine Glucose (UA) (Negative) Urine Blood (Negative) Ur Leukocyte Esterase (Negative) Urine WBC (0-5) /hpf Urine Bacteria (None) /hpf Urine Mucus (None) /hpf 06/07/21 06/07/21 06/07/21 Range/Units 05:55 07:15 11:44 D-Dimer (<0.60) mg/L FEU Sodium (137-145) mmol/L Chloride (98-107) mmol/L Carbon Dioxide (22-30) mmol/L BUN (7-17) mg/dL Creatinine (0.52-1.04) mg/dL Glucose (74-99) mg/dL POC Glucose (mg/dL) 292 H 292 H (75-99) mg/dL C-Reactive Protein (<1.0) mg/dL Urine Appearance Cloudy H (Clear) Urine Protein 1+ H (Negative) Urine Glucose (UA) Trace H (Negative) Urine Blood Small H (Negative) Ur Leukocyte Esterase Moderate H (Negative) Urine WBC 24 H (0-5) /hpf Urine Bacteria Rare H (None) /hpf Urine Mucus Rare H (None) /hpf 06/07/21 Range/Units 16:37 D-Dimer (<0.60) mg/L FEU Sodium (137-145) mmol/L Chloride (98-107) mmol/L Carbon Dioxide (22-30) mmol/L BUN (7-17) mg/dL Creatinine (0.52-1.04) mg/dL Glucose (74-99) mg/dL POC Glucose (mg/dL) 306 H (75-99) mg/dL C-Reactive Protein (<1.0) mg/dL Urine Appearance (Clear) Urine Protein (Negative) Urine Glucose (UA) (Negative) Urine Blood (Negative) Ur Leukocyte Esterase (Negative) Urine WBC (0-5) /hpf Urine Bacteria (None) /hpf Urine Mucus (None) /hpf Microbiology - Last 24 Hours (Table) 12/25/21 07:15 Urine Culture - Preliminary Urine,Voided Assessment and Plan Assessment: 1-patient presented to the hospital with generalized weakness decreased appetite shortness of breath and cough chest x-ray with interstitial infiltrate in this patient did have a positive covid test however symptom has been going on for more than 3 weeks and is currently out of the therapeutic window for Remdisivir per [facility] policy more likely mild achiness and no evidence of any secondary bacterial pneumonia, patient seemed to have minimal clinical improvement 2-patient with extensive groin area cutaneous candidiasis no evidence of any secondary cellulitis-- rash has slightly decreased intensity (1) Cutaneous candidiasis Current Visit: Yes Status: Acute Code(s): B37.2 - CANDIDIASIS OF SKIN AND NAIL SNOMED Code(s): 49253250 (2) COVID-19 Current Visit: Yes Status: Acute Code(s): U07.1 - COVID-19 SNOMED Code(s): 409643792 Plan: 1-patient with continued on dexamethasone eliquis zinc and ascorbic acid 2-nystatin powder to bilateral groin area twice a day 3-droplet isolation and respiratory support Time with Patient: Less than 30
--- NOTE | 2021-06-09 14:18 | P.PN ---
Subjective Progress Note Date: 06/08/21 Principal diagnosis: 1- Covid 19 pneumonia 2-groin area cutaneous candidiasis Patient is a 75-year-old female with a past medical history significant for CVA A. fib presented to hospital with generalized weakness symptom going on for 3-4 weeks and has been diagnosed with acute covid 19 infection, in this patient also have evidence of extensive bilateral groin area cutaneous candidiasis. On today's evaluation that is 06/08/2021, the patient remains to be afebrile, th e patient is still complaining of feeling weak and no energy, denies having any chest pain or sputum production no abdominal pain no diarrhea Objective - Vital Signs Vital signs: Vital Signs Temp 97.5 F L 06/08/21 21:05 Pulse 89 06/08/21 21:05 Resp 18 06/08/21 21:05 BP 159/87 06/08/21 21:05 Pulse Ox 95 06/08/21 21:05 Intake & Output 06/08/21 06/08/21 06/09/21 06:59 18:59 06:59 Intake Total 118 Output Total 300 Balance -300 118 Intake: Oral 118 Output: Urine 300 Other: # Voids 2 - Exam GENERAL DESCRIPTION:GENERAL DESCRIPTION:[ Patient is awake and alert in no distress] HEENT: [Oral mucosa is dry and no pharyngeal erythema] EYES : [No pallor or scleral icterus] RESPIRATORY SYSTEM: [Unlabored breathing decreased intensity of breath sounds] CARDIA VASCULAR SYSTEM: [S1-S2 regular rate and rhythm ] GI: [Abdominal soft there's no tenderness no organomegaly] Groin area erythematous rash slightly decreased EXTREMITIES: [No edema feet] - Labs CBC & Chem 7: 06/06/21 02:35 06/08/21 07:29 Labs: Abnormal Lab Results - Last 24 Hours (Table) 06/08/21 06/08/21 06/08/21 Range/Units 06:18 07:29 11:49 BUN 37 H (7-17) mg/dL Creatinine 1.07 H (0.52-1.04) mg/dL Glucose 228 H (74-99) mg/dL POC Glucose (mg/dL) 218 H 240 H (75-99) mg/dL 06/08/21 06/08/21 Range/Units 16:58 20:16 BUN (7-17) mg/dL Creatinine (0.52-1.04) mg/dL Glucose (74-99) mg/dL POC Glucose (mg/dL) 388 H 346 H (75-99) mg/dL Microbiology - Last 24 Hours (Table) 06/07/21 07:15 Urine Culture - Final Urine,Voided Assessment and Plan Assessment: 1-patient presented to the hospital with generalized weakness decreased appetite shortness of breath and cough chest x-ray with interstitial infiltrate in this patient did have a positive covid test however symptom has been going on for more than 3 weeks and is currently out of the therapeutic window for Remdisivir per [facility] policy more likely mild achiness and no evidence of any secondary bacterial pneumonia, patient continued to show slow clinical improvement 2-patient with extensive groin area cutaneous candidiasis no evidence of any secondary cellulitis-- rash has slightly decreased intensity (1) Cutaneous candidiasis Current Visit: Yes Status: Acute Code(s): B37.2 - CANDIDIASIS OF SKIN AND NAIL SNOMED Code(s): 74046491 (2) COVID-19 Current Visit: Yes Status: Acute Code(s): U07.1 - COVID-19 SNOMED Code(s): 853031630 Plan: 1-patient is currently being treated with dexamethasone eliquis zinc and ascorbic acid 2-nystatin powder to bilateral groin area twice a day 3-droplet isolation and respiratory support Time with Patient: Less than 30
[2021-06-09 16:50] LABS: Glucose,Whole Blood 319 mg/dL (75-99)
[2021-06-09 19:46] LABS: Glucose,Whole Blood 446 mg/dL (75-99)
--- NOTE | 2021-06-09 21:13 | P.PN ---
Progress Note - Text Progress Note Date: 06/09/21 Chief Complaint: Weak and tired This is a 75-year-old patient, follows with Dr. Maddox. Chronic stable medical conditions include atrial fibrillation, congestive heart failure EF 35%, hyperlipidemia, CAD, hypertension. She presented to ER with generalized weakness. She states she is pretty much been laying down on a couch for last 3 weeks and getting worse. She also had some chest pain duration unknown some shortness of breath. She was concerned about having an heart attack like she had in the past. Denies any fevers. She appetite has been down. She been having some loose stools. Lives alone. Someone brings her groceries about once a week. Did not take the COVID-19 vaccine. 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 Patient did test positive for the COVID. Patient did not take the COVID-19 vaccine Admitted with COVID 19 pneumonitis, acute hypoxic respiratory failure, acute kidney injury, metabolic acidosis. Started on dexamethasone, bicarbonate drip. June 07: Decrease appetite. Some shortness of breath. Tired. Getting bica rbonate drip. Have the patient sit up in a chair. Start using incentive spirometry. Still having some diarrhea. Change diet to a chopped diet June 08: Feels tired. Oral intake better. 90% on room air. Awaiting input from PTOT. June 09: On 2 L nasal cannula. Fair oral intake. Patient walked about 20 feet with a rolling walker. Discharge planning looking into going to inpatient rehab versus home Review of systems: Was done for constitutional, cardiovascular, GI, pulmonary. relevant finding as above Active Medications Acetaminophen (Acetaminophen Tab 325 Mg Tab) 650 mg PO Q6HR PRN PRN Reason: Mild Pain or Fever > 100.5 Last Admin: 06/06/21 11:02 Dose: 650 mg Documented by: Apixaban (Apixaban 5 Mg Tab) 5 mg PO BID [facility]; Protocol Last Admin: 06/09/21 09:09 Dose: 5 mg Documented by: Ascorbic Acid (Ascorbic Acid 500 Mg Tab) 1,000 mg PO DAILY [facility] Last Admin: 06/09/21 09:09 Dose: 1,000 mg Documented by: Calcium Carbonate/Glycine (Calcium Carbonate 500 Mg Chewable) 1,000 mg PO Q4HR PRN PRN Reason: Dyspepsia Cholecalciferol (Cholecalciferol 25 Mcg (1000 Iu) Tablet) 100 mcg PO DAILY [facility] Last Admin: 06/09/21 09:10 Dose: 100 mcg Documented by: Dexamethasone (Dexamethasone 2 Mg Tab) 6 mg PO DAILY [facility] Last Admin: 06/09/21 09:09 Dose: 6 mg Documented by: Sodium Bicarbonate 50 ml/ (Dextrose/Water) 1,050 mls @ 75 mls/hr IV .Q14H [facility] Last Admin: 06/09/21 12:44 Dose: 75 mls/hr Documented by: Insulin Aspart (Insulin Aspart (Novolog) 100 Unit/Ml Vial) 0 unit SQ ACHS [facility]; Protocol Last Admin: 06/09/21 17:16 Dose: 5 unit Documented by: Insulin Detemir (Insulin Detemir (Levemir) 100 Unit/Ml Syr) 12 unit SQ HS [facility] Last Admin: 06/08/21 21:51 Dose: 12 unit Documented by: Lactulose (Lactulose 20 Gm/30 Ml Cup) 20 gm PO DAILY PRN PRN Reason: Constipation Lorazepam (Lorazepam 0.5 Mg Tab) 0.5 mg PO Q6HR PRN PRN Reason: Anxiety Melatonin (Melatonin 3 Mg Tablet) 3 mg PO HS PRN PRN Reason: Insomnia Metoprolol Tartrate (Metoprolol Tartrate 50 Mg Tab) 150 mg PO BID [facility] Last Admin: 06/09/21 09:10 Dose: 150 mg Documented by: Naloxone HCl (Naloxone 0.4 Mg/Ml 1 Ml Vial) 0.2 mg IV Q2M PRN PRN Reason: Opioid Reversal Nystatin (Nystatin 100,000unit/Gm Cream 30 Gm Tube) 1 applic TOPICAL TID [facility]; Protocol Last Admin: 06/09/21 16:52 Dose: 1 applic Documented by: Nystatin (Nystatin 100,000 Unit/Gm Powd 15 Gm) 1 applic TOPICAL BID [facility]; Protocol Last Admin: 06/09/21 09:10 Dose: 1 applic Documented by: Ondansetron HCl (Ondansetron 4 Mg/2 Ml Vial) 4 mg IVP Q8HR PRN PRN Reason: Nausea And Vomiting Psyllium Hydrophilic Mucilloid (Psyllium Husk 100% 6 Gm Packet) 6 gm PO BID [facility] Last Admin: 06/09/21 09:09 Dose: 6 gm Documented by: Zinc Sulfate (Zinc Sulfate 220 Mg Cap) 220 mg PO DAILY [facility] Last Admin: 06/09/21 09:09 Dose: 220 mg Documented by: Past medical history to include: Stroke, atrial fibrillation, hyperlipidemia, CAD with stent, CHF with EF of 35, hyperlipidemia Social history: Lives alone. No alcohol. Patient smoked for 53 years 1 pack a day stopped in 2011 Family history: Aneurysm Physical examination: VITAL SIGNS: 97.4, 94, 18, 131/85, 93% on 2 L GENERAL: Laying in bed, awake, tired LUNGS: Respiratory rate increased; PSYCH: Alert and oriented x3; mood and affect normal. NEUROLOGICAL: Cranial nerves grossly intact; no facial asymmetry, moving all 4 limbs Rest of the exam per nursing INVESTIGATIONS, reviewed in the clinical context: June 08: Potassium 3.6 creatinine 1.07 June 07: D-dimer 1.96 sodium 136 potassium 4.1 BUN 50 creatinine 1.2 to Accu-Cheks to 92. Bicarbonate 15 White count 8 hemoglobin 11.7 platelets 301 d-dimer 3.08 sodium 140 potassium 3.7 bicarb 18 BUN 64 creatinine 1.67 Lactic acid 2.3 TSH 0.4 Coronavirus [PCR]: Detected EKG tracing personally reviewed by me-atrial fibrillation, rate [address]-T wave changes Chest x-ray film personally reviewed by me-bilateral infiltrates Previous labs: BUN 27 creatinine 1.14 [January 2020] 2-D echocardiogram: Moderate concentric LVH, EF 30-35%, mitral tricuspid regurgitation. Moderate pulmonary hypertension [September 2019]. Assessment and plan -Acute COVID-19 pneumonitis, with hypoxia, in a patient who did not take COVID- 19 vaccine. Symptoms have been present for greater than 10 days Dexamethasone 6 mg daily, vitamin C, vitamin D, zinc -Acute diarrhea secondary to COVID-19: Better Metamucil -Acute hypoxic respiratory failure with pulse ox 91% on 2 L upon presentation Oxygen supplementation -Acute kidney injury possibly combination of prerenal and ATN from decreased oral intake: Better IV fluids carefully given history of CHF -Acute metabolic acidosis from kidney disease: Better Bicarbonate drip-discontinue -Chronic congestive heart failure from systolic dysfunction EF 30-35% Follow clinically. 2-D echocardiogram -Acute intertriginous candidiasis in the groin area Nystatin powder twice a day -Acute medical debility from COVID-19/dehydration Fall precautions -CAd with a history of stent Lopressor 150 mg twice a day -Persistent atrial fibrillation, rate controlled Lopressor 150 mg twice daily. Eliquis 5 mg twice a day -Full code Dexamethasone 6mg. Bicarbonate drip discontinue. PTOT. Looking at patient's discharge home versus rehab. Patient not inclined to go to rehab.
[2021-06-09] MEDS ORDERED: INSULIN ASPART (NovoLOG) 100 UNIT/ML VIAL SQ ONE (21:57)
[2021-06-09] MEDS: INSULIN DETEMIR (LEVEMIR) 100 UNIT/ML SYR SQ SCH (22:08)
[2021-06-10] MEDS: DEXTROSE 5% IN WATER 1,000 ML with SODIUM BICARB (1 MEQ/ML) 50 ML IV SCH ×2 (02:26→21:49)
[2021-06-10 06:30] LABS: Glucose,Whole Blood 91 mg/dL (75-99)
[2021-06-10] MEDS: INSULIN ASPART (NovoLOG) 100 UNIT/ML VIAL SQ SCH ×4 (06:31→22:02)
[2021-06-10] MEDS: ZINC SULFATE 220 MG CAP PO SCH (08:58)
[2021-06-10] MEDS: dexAMETHasone 2 MG TAB PO SCH (08:58)
[2021-06-10] MEDS: METOPROLOL TARTRATE 50 MG TAB PO SCH ×2 (08:58→22:01)
[2021-06-10] MEDS: PSYLLIUM HUSK 100% 6 GM PACKET PO SCH ×2 (08:58→21:58)
[2021-06-10] MEDS: ASCORBIC ACID 500 MG TAB PO SCH (08:58)
[2021-06-10] MEDS: CHOLECALCIFEROL 25 MCG (1000 IU) TABLET PO SCH (08:58)
[2021-06-10] MEDS: APIXABAN 5 MG TAB PO SCH ×2 (08:58→22:01)
[2021-06-10] MEDS: NYSTATIN 100,000 UNIT/GM POWD 15 GM TOPICAL SCH ×2 (08:59→22:03)
[2021-06-10] MEDS: NYSTATIN 100,000UNIT/GM CREAM 30 GM TUBE TOPICAL SCH ×3 (08:59→22:03)
[2021-06-10 09:53] LABS: Calcium 8.7 mg/dL (8.4-10.2); Potassium 3.3 mmol/L (3.5-5.1)
[2021-06-10 11:42] LABS: Glucose,Whole Blood 211 mg/dL (75-99)
[2021-06-10 16:41] LABS: Glucose,Whole Blood 328 mg/dL (75-99)
[2021-06-10 20:08] LABS: Glucose,Whole Blood 370 mg/dL (75-99)
[2021-06-10] MEDS ORDERED: INSULIN DETEMIR (LEVEMIR) 100 UNIT/ML SYR SQ SCH ×2 (21:00)
[2021-06-10] MEDS ORDERED: POTASSIUM CHLORIDE ER 20 MEQ TAB.ER PO STA (21:05)
--- NOTE | 2021-06-10 21:05 | P.PN ---
Progress Note - Text Progress Note Date: 06/10/21 Chief Complaint: Weak and tired This is a 75-year-old patient, follows with Dr. Maddox. Chronic stable medical conditions include atrial fibrillation, congestive heart failure EF 35%, hyperlipidemia, CAD, hypertension. She presented to ER with generalized weakness. She states she is pretty much been laying down on a couch for last 3 weeks and getting worse. She also had some chest pain duration unknown some shortness of breath. She was concerned about having an heart attack like she had in the past. Denies any fevers. She appetite has been down. She been having some loose stools. Lives alone. Someone brings her groceries about once a week. Did not take the COVID-19 vaccine. 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 Patient did test positive for the COVID. Patient did not take the COVID-19 vaccine Admitted with COVID 19 pneumonitis, acute hypoxic respiratory failure, acute kidney injury, metabolic acidosis. Started on dexamethasone, bicarbonate drip. June 07: Decrease appetite. Some shortness of breath. Tired. Getting bica rbonate drip. Have the patient sit up in a chair. Start using incentive spirometry. Still having some diarrhea. Change diet to a chopped diet June 08: Feels tired. Oral intake better. 90% on room air. Awaiting input from PTOT. June 09: On 2 L nasal cannula. Fair oral intake. Patient walked about 20 feet with a rolling walker. Discharge planning looking into going to inpatient rehab versus home June 10: Oral intake fair. Breathing stable. On 2 L of nasal cannula. Oral intake fair. Discussed with administrative support manager and the patient. Being assessed for inpatient rehab. Review of systems: Was done for constitutional, cardiovascular, GI, pulmonary. relevant finding as above Active Medications Acetaminophen (Acetaminophen Tab 325 Mg Tab) 650 mg PO Q6HR PRN PRN Reason: Mild Pain or Fever > 100.5 Last Admin: 06/06/21 11:02 Dose: 650 mg Documented by: Apixaban (Apixaban 5 Mg Tab) 5 mg PO BID [facility]; Protocol Last Admin: 06/10/21 08:58 Dose: 5 mg Documented by: Ascorbic Acid (Ascorbic Acid 500 Mg Tab) 1,000 mg PO DAILY [facility] Last Admin: 06/10/21 08:58 Dose: 1,000 mg Documented by: Calcium Carbonate/Glycine (Calcium Carbonate 500 Mg Chewable) 1,000 mg PO Q4HR PRN PRN Reason: Dyspepsia Cholecalciferol (Cholecalciferol 25 Mcg (1000 Iu) Tablet) 100 mcg PO DAILY [facility] Last Admin: 06/10/21 08:58 Dose: 100 mcg Documented by: Dexamethasone (Dexamethasone 2 Mg Tab) 6 mg PO DAILY [facility] Last Admin: 06/10/21 08:58 Dose: 6 mg Documented by: Sodium Bicarbonate 50 ml/ (Dextrose/Water) 1,050 mls @ 75 mls/hr IV .Q14H [facility] Last Admin: 06/10/21 02:26 Dose: 75 mls/hr Documented by: Insulin Aspart (Insulin Aspart (Novolog) 100 Unit/Ml Vial) 0 unit SQ [facility]; Protocol Last Admin: 06/10/21 17:00 Dose: 7 unit Documented by: Insulin Detemir (Insulin Detemir (Levemir) 100 Unit/Ml Syr) 18 unit SQ HS [facility] Lactulose (Lactulose 20 Gm/30 Ml Cup) 20 gm PO DAILY PRN PRN Reason: Constipation Lorazepam (Lorazepam 0.5 Mg Tab) 0.5 mg PO Q6HR PRN PRN Reason: Anxiety Melatonin (Melatonin 3 Mg Tablet) 3 mg PO HS PRN PRN Reason: Insomnia Metoprolol Tartrate (Metoprolol Tartrate 50 Mg Tab) 150 mg PO BID [facility] Last Admin: 06/10/21 08:58 Dose: 150 mg Documented by: Naloxone HCl (Naloxone 0.4 Mg/Ml 1 Ml Vial) 0.2 mg IV Q2M PRN PRN Reason: Opioid Reversal Nystatin (Nystatin 100,000unit/Gm Cream 30 Gm Tube) 1 applic TOPICAL TID [facility]; Protocol Last Admin: 06/10/21 16:06 Dose: 1 applic Documented by: Nystatin (Nystatin 100,000 Unit/Gm Powd 15 Gm) 1 applic TOPICAL BID [facility]; Protocol Last Admin: 06/10/21 08:59 Dose: 1 applic Documented by: Ondansetron HCl (Ondansetron 4 Mg/2 Ml Vial) 4 mg IVP Q8HR PRN PRN Reason: Nausea And Vomiting Psyllium Hydrophilic Mucilloid (Psyllium Husk 100% 6 Gm Packet) 6 gm PO BID [facility] Last Admin: 06/10/21 08:58 Dose: 6 gm Documented by: Zinc Sulfate (Zinc Sulfate 220 Mg Cap) 220 mg PO DAILY [facility] Last Admin: 06/10/21 08:58 Dose: 220 mg Documented by: Past medical history to include: Stroke, atrial fibrillation, hyperlipidemia, CAD with stent, CHF with EF of 35, hyperlipidemia Social history: Lives alone. No alcohol. Patient smoked for 53 years 1 pack a day stopped in 2011 Family history: Aneurysm Physical examination: VITAL SIGNS: 97.4, 77, 18, 142/82, 96% on 2 L GENERAL: Laying in bed, awake, LUNGS: Respiratory rate increased; PSYCH: Alert and oriented x3; mood and affect normal. NEUROLOGICAL: Cranial nerves grossly intact; no facial asymmetry, moving all 4 limbs Rest of the exam per nursing INVESTIGATIONS, reviewed in the clinical context: Limited 2-D echo: Moderate concentric LVH. EF 55-60%. June 10: D-dimer 3.68 and 30 creatinine 1.06 potassium 3.3 June 08: Potassium 3.6 creatinine 1.07 June 07: D-dimer 1.96 sodium 136 potassium 4.1 BUN 50 creatinine 1.2 to Accu-Cheks to 92. Bicarbonate 15 White count 8 hemoglobin 11.7 platelets 301 d-dimer 3.08 sodium 140 potassium 3.7 bicarb 18 BUN 64 creatinine 1.67 Lactic acid 2.3 TSH 0.4 Coronavirus [PCR]: Detected EKG tracing personally reviewed by me-atrial fibrillation, rate [address]-T wave changes Chest x-ray film personally reviewed by me-bilateral infiltrates Previous labs: BUN 27 creatinine 1.14 [January 2020] 2-D echocardiogram: Moderate concentric LVH, EF 30-35%, mitral tricuspid regurgitation. Moderate pulmonary hypertension [September 2019]. Assessment and plan -Acute COVID-19 pneumonitis, with hypoxia, in a patient who did not take COVID- 19 vaccine. Symptoms have been present for greater than 10 days oral improving Dexamethasone 6 mg daily, vitamin C, vitamin D, zinc -Acute diarrhea secondary to COVID-19: Better Metamucil -Acute hypoxic respiratory failure with pulse ox 91% on 2 L upon presentation: Improving Oxygen supplementation -Acute kidney injury possibly combination of prerenal and ATN from decreased oral intake: Better IV fluids carefully given history of CHF -Acute metabolic acidosis from kidney disease: Better Bicarbonate drip-discontinue -Chronic congestive heart failure from diastolic dysfunction EF 55-60 % Follow clinically. -Acute intertriginous candidiasis in the groin area Nystatin powder twice a day -Acute medical debility from COVID-19/dehydration Fall precautions -CAD with a history of stent Lopressor 150 mg twice a day -Persistent atrial fibrillation, rate controlled Lopressor 150 mg twice daily. Eliquis 5 mg twice a day -Full code Dexamethasone 6mg. spoke to the nurse and social services coordinator/administrative support manager. Looking for inpatient rehab placement..
--- NOTE | 2021-06-10 22:54 | PN ---
PROGRESS NOTE DATE OF SERVICE: 06/10/2021 REASON FOR FOLLOWUP: 1. COVID-19 pneumonia. 2. Patient with bilateral groin area cutaneous candidiasis. INTERVAL HISTORY: The patient is afebrile. The patient is breathing comfortably, currently on room air. The patient denies having any chest pain. No worsening cough or sputum production. No abdominal pain or diarrhea. PHYSICAL EXAMINATION: Her blood pressure is 146/74 with a pulse of 92, temperature 97.6. She is 95% on room air. General description is an elderly female lying in bed in no distress. Respiratory system: Unlabored breathing, decreased intensity of breath sounds. No wheeze. Heart S1, S2. Regular rate and rhythm. Abdomen soft, no tenderness. LABS: BUN of , creatinine 1.06. DIAGNOSTIC IMPRESSION AND PLAN: 1. Patient with acute COVID-19 pneumonia, mild illness, and this patient is slowly clinically responding to dexamethasone, Eliquis, zinc and ascorbic acid; to continue. 2. Patient with bilateral groin area cutaneous candidiasis. Continue with nystatin powder twice a day. MMODL / IJN: [id number] /
[2021-06-11 06:19] LABS: Glucose,Whole Blood 96 mg/dL (75-99)
[2021-06-11] MEDS: INSULIN ASPART (NovoLOG) 100 UNIT/ML VIAL SQ SCH ×2 (06:21→12:10)
[2021-06-11] MEDS: ASCORBIC ACID 500 MG TAB PO SCH (08:41)
[2021-06-11] MEDS: CHOLECALCIFEROL 25 MCG (1000 IU) TABLET PO SCH (08:41)
[2021-06-11] MEDS: APIXABAN 5 MG TAB PO SCH (08:41)
[2021-06-11] MEDS: METOPROLOL TARTRATE 50 MG TAB PO SCH (08:41)
[2021-06-11] MEDS: NYSTATIN 100,000UNIT/GM CREAM 30 GM TUBE TOPICAL SCH (08:41)
[2021-06-11] MEDS: PSYLLIUM HUSK 100% 6 GM PACKET PO SCH (08:41)
[2021-06-11] MEDS: dexAMETHasone 2 MG TAB PO SCH (08:41)
[2021-06-11] MEDS: ZINC SULFATE 220 MG CAP PO SCH (08:41)
[2021-06-11] MEDS: NYSTATIN 100,000 UNIT/GM POWD 15 GM TOPICAL SCH (08:42)
[2021-06-11 08:45] LABS: Potassium 4.1 mmol/L (3.5-5.1)
[2021-06-11 09:08] VITALS: BMI 32.1
[2021-06-11 09:55] VITALS: TEMP 97.5
[2021-06-11 11:57] LABS: Glucose,Whole Blood 272 mg/dL (75-99)
[2021-06-11 12:42] VITALS: BP 135/86; RESP 16
[2021-06-11 12:44] VITALS: PULSE 85
--- NOTE | 2021-06-11 13:19 | P.DS ---
Providers Date of admission: 06/05/21 22:35 Expected date of discharge: 06/11/21 Attending physician: Biju Sanabria Consults: 06/05/21 22:36 Consult Physician Urgent Consulting Provider: Johnny Waite Consult Reason/Comments: acute covid infection Do you want consulting provider notified?: Yes [facility] Course: Chief Complaint: Weak and tired This is a 75-year-old patient, follows with Dr. Maddox. Chronic stable medical conditions include atrial fibrillation, congestive heart failure EF 35%, hyperlipidemia, CAD, hypertension. She presented to ER with generalized weakness. She states she is pretty much been laying down on a couch for last 3 weeks and getting worse. She also had some chest pain duration unknown some shortness of breath. She was concerned about having an heart attack like she had in the past. Denies any fevers. She appetite has been down. She been having some loose stools. Lives alone. Someone brings her groceries about once a week. Did not take the COVID-19 vaccine. 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 Patient did test positive for the COVID. Patient did not take the COVID-19 vaccine Admitted with COVID 19 pneumonitis, acute hypoxic respiratory failure, acute kidney injury, metabolic acidosis. Started on dexamethasone, bicarbonate drip. Patient started improving. Did also receive bicarbonate drip for at least acidosis. improving. June 11: Doing better. 2 L nasal cannula. Had most of her breakfast. Past medical history to include: Stroke, atrial fibrillation, hyperlipidemia, CAD with stent, CHF with EF of 35, hyperlipidemia Social history: Lives alone. No alcohol. Patient smoked for 53 years 1 pack a day stopped in 2011 Family history: Aneurysm Physical examination: VITAL SIGNS: Afebrile, 77, 16, 135/86, 95% on 2 L GENERAL: Laying in bed, awake, LUNGS: Respiratory rate normal PSYCH: Alert and oriented x3; mood and affect normal. NEUROLOGICAL: Cranial nerves grossly intact; no facial asymmetry, moving all 4 limbs Rest of the exam per nursing INVESTIGATIONS, reviewed in the clinical context: Limited 2-D echo: Moderate concentric LVH. EF 55-60%. June 10: D-dimer 3.68 and 30 creatinine 1.06 potassium 3.3 June 08: Potassium 3.6 creatinine 1.07 June 07: D-dimer 1.96 sodium 136 potassium 4.1 BUN 50 creatinine 1.2 to Accu-Cheks to 92. Bicarbonate 15 White count 8 hemoglobin 11.7 platelets 301 d-dimer 3.08 sodium 140 potassium 3.7 bicarb 18 BUN 64 creatinine 1.67 Lactic acid 2.3 TSH 0.4 Coronavirus [PCR]: Detected EKG tracing personally reviewed by me-atrial fibrillation, rate [address]-T wave changes Chest x-ray film personally reviewed by me-bilateral infiltrates Previous labs: BUN 27 creatinine 1.14 [January 2020] 2-D echocardiogram: Moderate concentric LVH, EF 30-35%, mitral tricuspid regurgitation. Moderate pulmonary hypertension [September 2019]. Assessment and plan -Acute COVID-19 pneumonitis, with hypoxia, in a patient who did not take COVID- 19 vaccine. Symptoms have been present for greater than 10 days prior to presentation. Improving Dexamethasone 6 mg daily, vitamin C, vitamin D, zinc DC on prednisone taper -Acute diarrhea secondary to COVID-19: Better Metamucil -Acute hypoxic respiratory failure with pulse ox 91% on 2 L upon presentation: Improving 2 L nasal cannula -Acute kidney injury possibly combination of prerenal and ATN from decreased oral intake: Better IV fluids received -Acute metabolic acidosis from kidney disease: Better Bicarbonate drip-discontinue -Chronic congestive heart failure from diastolic dysfunction EF 55-60 % Follow clinically. -Acute intertriginous candidiasis in the groin area Nystatin powder twice a day -Acute medical debility from COVID-19/dehydration Fall precautions -CAD with a history of stent Lopressor 150 mg twice a day -Persistent atrial fibrillation, rate controlled Lopressor 150 mg twice daily. Eliquis 5 mg twice a day -Full code Disposition: I PDP rehab Plan - Discharge Summary New Discharge Prescriptions: New Psyllium Husk 100% [Metamucil Packet] 6 gm PO BID packet Nystatin 100,000 Unit/gm Powd [Mycostatin Powder] 1 applic TOPICAL BID Zinc Sulfate [Orazinc] 220 mg PO DAILY cap predniSONE 10 mg PO DAILY #30 tab Acetaminophen Tab [Tylenol] 650 mg PO Q6HR PRN tab PRN Reason: Mild Pain Or Fever > 100.5 Cholecalciferol [Vitamin D3 (125 Mcg = 5000 Iu)] 125 mcg PO DAILY #1 tablet Lactulose [Cephulac] 20 gm PO DAILY PRN ml PRN Reason: Constipation Insulin Detemir (Levemir) [Levemir] 16 unit SQ HS ml Melatonin 3 mg PO HS PRN tablet PRN Reason: Insomnia INSULIN ASPART (NovoLOG) [NovoLOG (formulary)] 0 unit SQ ACHS ml Ascorbic Acid [Vitamin C] 1,000 mg PO DAILY tab Continue Apixaban [Eliquis] 5 mg PO BID #60 tab Linagliptin [Tradjenta] 5 mg PO DAILY Changed Metoprolol Tartrate [Lopressor] 150 mg PO BID #0 Discontinued Furosemide [Lasix] 20 mg PO DAILY Cholecalciferol [Vitamin D3 (25 Mcg = 1000 Iu)] 25 mcg PO DAILY Metoprolol Tartrate [Lopressor] 150 mg PO HS Discharge Medication List Apixaban [Eliquis] 5 mg PO BID #60 tab 09/02/18 [Rx] Linagliptin [Tradjenta] 5 mg PO DAILY 06/05/21 [History] Acetaminophen Tab [Tylenol] 650 mg PO Q6HR PRN tab 06/11/21 [Rx] Ascorbic Acid [Vitamin C] 1,000 mg PO DAILY tab 06/11/21 [Rx] Cholecalciferol [Vitamin D3 (125 Mcg = 5000 Iu)] 125 mcg PO DAILY #1 tablet 06/11/21 [Rx] INSULIN ASPART (NovoLOG) [NovoLOG (formulary)] 0 unit SQ ACHS ml 06/11/21 [Rx] Insulin Detemir (Levemir) [Levemir] 16 unit SQ HS ml 06/11/21 [Rx] Lactulose [Cephulac] 20 gm PO DAILY PRN ml 06/11/21 [Rx] Melatonin 3 mg PO HS PRN tablet 06/11/21 [Rx] Metoprolol Tartrate [Lopressor] 150 mg PO BID #0 06/11/21 [Rx] Nystatin 100,000 Unit/gm Powd [Mycostatin Powder] 1 applic TOPICAL BID 06/11/21 [Rx] Psyllium Husk 100% [Metamucil Packet] 6 gm PO BID packet 06/11/21 [Rx] Zinc Sulfate [Orazinc] 220 mg PO DAILY cap 06/11/21 [Rx] predniSONE 10 mg PO DAILY #30 tab 06/11/21 [Rx] Follow up Appointment(s)/Referral(s): Dada Maddox DO [Primary Care Provider] - 1-2 days
--- NOTE | 2021-06-11 17:04 | PN ---
PROGRESS NOTE DATE OF SERVICE: 06/11/2021 REASON FOR FOLLOWUP: COVID-19 pneumonia. INTERVAL HISTORY: The patient is afebrile. The patient is breathing comfortably. She is currently on 2 L. The patient denies having any chest pain. No worsening cough or sputum production. No abdominal pain or diarrhea. PHYSICAL EXAMINATION: Blood pressure 135/86, pulse of 77, temperature of 97.5. She is 95% on 2 L nasal cannula. General description is an elderly female lying in bed in no distress. Respiratory system: Unlabored breathing, decreased breath sounds in the base, no wheeze. Heart S1, S2. Regular rate and rhythm. Abdomen: Soft, no tenderness. LAB: No new labs have been obtained today. DIAGNOSTIC IMPRESSION AND PLAN: 1. Patient with acute COVID-19 pneumonia, mild illness, overall improvement. Finish course of oral prednisone, zinc and ascorbic acid. 2. Bilateral groin cutaneous candidiasis. Continue with nystatin powder twice a day for about a week. MMODL / IJN: [id number] /
== END 2021-06-11 15:09 | disposition home health service (06) | DRG 177 ==
LOC: EC 19:53 → 3SCARD 22:35
PROVIDERS: ADMIT Hospitalist; ATTEND Hospitalist
DX: U07.1 COVID-19 (principal); J12.82 Pneumonia due to coronavirus disease 2019; J96.01 Acute respiratory failure with hypoxia; N17.0 Acute kidney failure with tubular necrosis; E87.2 Acidosis; I48.19 Other persistent atrial fibrillation; I50.32 Chronic diastolic (congestive) heart failure; E86.0 Dehydration; B37.2 Candidiasis of skin and nail; E78.5 Hyperlipidemia, unspecified; I25.10 Atherosclerotic heart disease of native coronary artery without angina pectoris; I11.0 Hypertensive heart disease with heart failure; I25.2 Old myocardial infarction; Z79.01 Long term (current) use of anticoagulants; Z79.84 Long term (current) use of oral hypoglycemic drugs; Z79.899 Other long term (current) drug therapy; Z87.891 Personal history of nicotine dependence; Z95.5 Presence of coronary angioplasty implant and graft; R73.03 Prediabetes; I69.321 Dysphasia following cerebral infarction; R21 Rash and other nonspecific skin eruption
CPT/HCPCS: 36415; 71046; 80048; 80053; 81001; 83605; 83735; 83880; 84439; 84443; 84484; 85025; 85379; 85610; 85730; 86140; 87086; 87635; 93005; 93308; 99285

== ENCOUNTER 2021-11-06 20:31 | Inpatient (IN) | payer MEDICARE, OTHER ==
[2021-11-07] MEDS ORDERED: ONDANSETRON 4 MG/2 ML VIAL IM STA (02:54)
--- NOTE | 2021-11-07 03:00 | ED ---
GI Bleed HPI - General Chief complaint: GI Bleed Stated complaint: Blood in stool Time Seen by Provider: 11/07/21 02:16 Source: patient Mode of arrival: ambulatory Limitations: no limitations - History of Present Illness Initial comments: This patient is 76-year-old woman who presents to have evaluation for bowel movement with some red blood. The patient states she had some accompanying abdominal cramping but denies anneliese pain. She has not had any vomiting. MD complaint: blood streaked stool -: hour(s) Quality: cramping Consistency: constant Improves with: none Worsens with: none Associated Symptoms: abdominal pain - Related Data Home Medications Medication Instructions Recorded Confirmed Albuterol Inhaler [Ventolin Hfa 2 puff INHALATION RT-Q4H PRN 10/19/21 11/07/21 Inhaler] Furosemide [Lasix] 20 mg PO DIRECTED 10/19/21 11/07/21 Metoprolol Tartrate [Lopressor] 100 mg PO TID 10/19/21 11/07/21 Previous Rx's Medication Instructions Recorded Apixaban [Eliquis] 5 mg PO BID #60 tab 09/02/18 Allergies Allergy/AdvReac Type Severity Reaction Status Date / Time No Known Allergies Allergy Verified 11/07/21 07:50 Review of Systems ROS Statement: Those systems with pertinent positive or pertinent negative responses have been documented in the HPI. ROS Other: All systems not noted in ROS Statement are negative. Constitutional: Denies: fever Respiratory: Denies: cough, dyspnea Cardiovascular: Denies: chest pain, palpitations Gastrointestinal: Reports: abdominal pain, hematochezia. Denies: nausea, vomiting, diarrhea, constipation, melena Genitourinary: Denies: dysuria, hematuria Musculoskeletal: Denies: back pain Skin: Denies: rash Neurological: Denies: headache, weakness Past Medical History Past Medical History: Atrial Fibrillation, Cancer, CVA/TIA, Hyperlipidemia, Myocardial Infarction ([place]) Additional Past Medical History / Comment(s): 07/27/17 FALL'LT HIP FX. 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 History of COVID-19 Last Myocardial Infarction Date:: 2009 History of Any Multi-Drug Resistant Organisms: None Reported Past Surgical History: Heart Catheterization, Orthopedic Surgery, Tonsillectomy Additional Past Surgical History / Comment(s): ORIF RT ANKLE HAS PLATE. Past Anesthesia/Blood Transfusion Reactions: No Reported Reaction Past Psychological History: No Psychological Hx Reported Smoking Status: Never smoker Past Alcohol Use History: None Reported Past Drug Use History: None Reported - Past Family History Mother Family Medical History: No Reported History Additional Family Medical History / Comment(s): FROM ANUERYSM Father Family Medical History: No Reported History General Exam Limitations: no limitations General appearance: alert, in no apparent distress Head exam: Present: atraumatic, normocephalic Eye exam: Present: normal appearance. Absent: scleral icterus, conjunctival injection Neck exam: Present: normal inspection Respiratory exam: Present: normal lung sounds bilaterally. Absent: respiratory distress, wheezes, rales, rhonchi, stridor Cardiovascular Exam: Present: regular rate, normal rhythm, normal heart sounds. Absent: systolic murmur, diastolic murmur, rubs, gallop GI/Abdominal exam: Present: soft. Absent: distended, tenderness, guarding, rebound, rigid, mass Rectal exam: Present: normal inspection, normal rectal tone, heme (+) stool. Absent: decreased rectal tone, heme (-) stool, black stool, bloody stool, fecal impaction, hemorrhoids, mass, tenderness Extremities exam: Present: normal inspection, normal capillary refill. Absent: pedal edema, calf tenderness Back exam: Present: normal inspection. Absent: CVA tenderness (R), CVA tenderness (L) Neurological exam: Present: alert Skin exam: Present: warm, dry, intact, normal color. Absent: rash Course Vital Signs 11/06/21 11/07/21 11/07/21 20:49 04:55 06:52 Temperature 97.8 F 97.9 F Pulse Rate 88 79 84 Respiratory 18 15 19 Rate Blood Pressure 137/90 147/94 153/104 O2 Sat by Pulse 98 96 95 Oximetry 11/07/21 17:03 Temperature Pulse Rate 72 Respiratory 16 Rate Blood Pressure 156/91 O2 Sat by Pulse 96 Oximetry Medical Decision Making - Medical Decision Making Patient is 76-year-old woman presenting with episode of suspected lower GI bleeding. She has not passed additional blood here. Patient be admitted under medicine and did discuss with Dr. Escobar who will see the patient as human resources consultant. - Lab Data Result diagrams: 11/07/21 15:40 11/07/21 03:11 Lab Results 11/07/21 11/07/21 11/07/21 Range/Units 03:11 03:11 03:11 WBC 6.3 (3.8-10.6) k/uL RBC 3.78 L (3.80-5.40) m/uL Hgb 10.9 L (11.4-16.0) gm/dL Hct 36.6 (34.0-46.0) % MCV 96.8 (80.0-100.0) fL MCH 28.9 (25.0-35.0) pg MCHC 29.9 L (31.0-37.0) g/dL RDW 15.9 H (11.5-15.5) % Plt Count 208 (150-450) k/uL MPV 8.5 Neutrophils % 68 % Lymphocytes % 18 % Monocytes % 8 % Eosinophils % 4 % Basophils % 1 % Neutrophils # 4.3 (1.3-7.7) k/uL Lymphocytes # 1.1 (1.0-4.8) k/uL Monocytes # 0.5 (0-1.0) k/uL Eosinophils # 0.2 (0-0.7) k/uL Basophils # 0.0 (0-0.2) k/uL Hypochromasia Slight Macrocytosis APTT 26.5 (22.0-30.0) sec Sodium 140 (137-145) mmol/L Potassium 4.9 (3.5-5.1) mmol/L Chloride 108 H (98-107) mmol/L Carbon Dioxide 22 (22-30) mmol/L Anion Gap 10 mmol/L BUN 29 H (7-17) mg/dL Creatinine 1.67 H (0.52-1.04) mg/dL Est GFR (CKD-EPI)AfAm 34 (>60 ml/min/1.73 sqM) Est GFR (CKD-EPI)NonAf 29 (>60 ml/min/1.73 sqM) Glucose 108 H (74-99) mg/dL Calcium 9.3 (8.4-10.2) mg/dL Total Bilirubin 0.9 (0.2-1.3) mg/dL AST 22 (14-36) U/L ALT 9 (4-34) U/L Alkaline Phosphatase 65 (38-126) U/L Troponin I (0.000-0.034) ng/mL Total Protein 6.8 (6.3-8.2) g/dL Albumin 3.9 (3.5-5.0) g/dL Stool Occult Blood (Negative) 11/07/21 11/07/21 11/07/21 Range/Units 03:11 04:04 08:14 WBC 5.6 (3.8-10.6) k/uL RBC 3.39 L (3.80-5.40) m/uL Hgb 10.2 L (11.4-16.0) gm/dL Hct 33.1 L (34.0-46.0) % MCV 97.8 (80.0-100.0) fL MCH 30.1 (25.0-35.0) pg MCHC 30.8 L (31.0-37.0) g/dL RDW 15.8 H (11.5-15.5) % Plt Count 203 (150-450) k/uL MPV 7.7 Neutrophils % % Lymphocytes % % Monocytes % % Eosinophils % % Basophils % % Neutrophils # (1.3-7.7) k/uL Lymphocytes # (1.0-4.8) k/uL Monocytes # (0-1.0) k/uL Eosinophils # (0-0.7) k/uL Basophils # (0-0.2) k/uL Hypochromasia Moderate Macrocytosis Slight APTT (22.0-30.0) sec Sodium (137-145) mmol/L Potassium (3.5-5.1) mmol/L Chloride (98-107) mmol/L Carbon Dioxide (22-30) mmol/L Anion Gap mmol/L BUN (7-17) mg/dL Creatinine (0.52-1.04) mg/dL Est GFR (CKD-EPI)AfAm (>60 ml/min/1.73 sqM) Est GFR (CKD-EPI)NonAf (>60 ml/min/1.73 sqM) Glucose (74-99) mg/dL Calcium (8.4-10.2) mg/dL Total Bilirubin (0.2-1.3) mg/dL AST (14-36) U/L ALT (4-34) U/L Alkaline Phosphatase (38-126) U/L Troponin I 0.012 (0.000-0.034) ng/mL Total Protein (6.3-8.2) g/dL Albumin (3.5-5.0) g/dL Stool Occult Blood Positive H (Negative) Disposition Clinical Impression: GI bleeding Disposition: ADMITTED IP TO THIS [facility] Condition: Good
[2021-11-07 03:46] LABS: Basophils % (A) 1 %; Eosinophils # (A) 0.2 k/uL (0-0.7); Eosinophils % (A) 4 %; HCT 36.6 % (34.0-46.0); HGB 10.9 gm/dL (11.4-16.0); Hypochromasia Slight; Lymphocytes # (A) 1.1 k/uL (1.0-4.8); Lymphocytes % (A) 18 %; MCH 28.9 pg (25.0-35.0); MCHC 29.9 g/dL (31.0-37.0); MCV 96.8 fL (80.0-100.0); Mean Platelet Volume 8.5; Monocytes # (A) 0.5 k/uL (0-1.0); Monocytes % (A) 8 %; Neutrophils # (A) 4.3 k/uL (1.3-7.7); Neutrophils % (A) 68 %; Platelet Count 208 k/uL (150-450); RBC 3.78 m/uL (3.80-5.40); RDW 15.9 % (11.5-15.5); WBC 6.3 k/uL (3.8-10.6)
[2021-11-07 03:55] LABS: Albumin 3.9 g/dL (3.5-5.0); Calcium 9.3 mg/dL (8.4-10.2); Total Bilirubin 0.9 mg/dL (0.2-1.3); Total Protein 6.8 g/dL (6.3-8.2)
[2021-11-07 04:24] LABS: Potassium 4.9 mmol/L (3.5-5.1)
[2021-11-07] MEDS ORDERED: ACETAMINOPHEN TAB 325 MG TAB PO PRN (06:43)
[2021-11-07] MEDS ORDERED: NALOXONE 0.4 MG/ML 1 ML VIAL IV PRN (06:43)
[2021-11-07] MEDS: SODIUM CHLORIDE 0.9% 1,000 ML IV SCH ×2 (07:50→21:37)
[2021-11-07] MEDS ORDERED: FAMOTIDINE 20 MG TAB PO SCH (09:00)
[2021-11-07 09:04] LABS: HCT 33.1 % (34.0-46.0); HGB 10.2 gm/dL (11.4-16.0); Hypochromasia Moderate; MCH 30.1 pg (25.0-35.0); MCHC 30.8 g/dL (31.0-37.0); MCV 97.8 fL (80.0-100.0); Macrocytosis Slight; Mean Platelet Volume 7.7; Platelet Count 203 k/uL (150-450); RBC 3.39 m/uL (3.80-5.40); RDW 15.8 % (11.5-15.5); WBC 5.6 k/uL (3.8-10.6)
[2021-11-07] MEDS ORDERED: ALBUTEROL NEBULIZED 2.5 MG/3 ML INHALATION PRN (12:50)
--- NOTE | 2021-11-07 13:02 | P.GSCN ---
History of Present Illness Consult date: 11/07/21 History of present illness: CHIEF COMPLAINT: Bleeding per rectum HISTORY OF PRESENT ILLNESS: This is a 76-year-old female who has a known history of atrial fibrillation and anticoagulated with Eliquis. Patient presents to the emergency room with complaints of bright red blood per rectum. She reports that she had one bloody stool at 5:30 last night. She reports that it was a lot of blood and evidence of clots. She denies any abdominal pain. Denies any nausea or vomiting. She denies any prior history of colonoscopies. Denies a history of diverticulitis. Patient's hemoglobin is 10.9. Stool for occult blood is positive. Surgical service consulted in regards to GI bleeding. PAST MEDICAL HISTORY: Atrial fibrillation, uterine cancer status post radiation treatment, myocardial infarction, CVA PAST SURGICAL HISTORY: See list. MEDICATIONS: See list. ALLERGIES: See list. SOCIAL HISTORY: No illicit drug use. REVIEW OF SYSTEMS: CONSTITUTIONAL: Denies fever or chills. HEENT: Denies blurred vision, vision changes, or eye pain. Denies hemoptysis CARDIOVASCULAR: Denies chest pain or pressure. RESPIRATORY: No shortness of breath. GASTROINTESTINAL: See HPI for pertinent findings HEMATOLOGIC: Denies bleeding disorders. GENITOURINARY: Denies any blood in urine or increased urinary frequency. SKIN: Denies pruitis. Denies rash. PHYSICAL EXAM: VITAL SIGNS: Reviewed GENERAL: Well-developed in no acute distress. HEENT: No sclera icterus. Extraocular movements grossly intact. Moist buccal mucosa. Head is atraumatic, normocephalic. No nasal drainage. ABDOMEN: Soft. Nondistended. Nontender NEUROLOGIC: Alert and oriented. Cranial nerves II through XII grossly intact. LABORATORY DATA: 10.9 on admission and repeat is 10.2 platelets 203 Sodium 140 potassium 4.9 creatinine 1.67 Stool for occult blood positive IMAGING: ASSESSMENT: 1. Acute GI bleed with bright red blood per rectum 2. Anemia with history of chronic anemia 3. History of atrial fibrillation anticoagulated with Eliquis at home 4. History of uterine cancer status post radiation treatment PLAN: -Further recommendations forthcoming per surgeon -Continue clear liquid diet -Continue to monitor for any signs or symptoms of bleeding -Continue to monitor hemoglobin -Continue IV fluids -Continue to hold Eliquis Thank you for this consultation Physician Metal Sheet Roller Operator note has been reviewed by physician. Signing provider agrees with the documented findings, assessment, and plan of care. I have personally seen and examined the patient, reviewed the COPY COORDINATOR /PAs history, exam and MDM and agree with the assessment and plan as written. Based on total visit time, I have performed more than 50% of the visit. As above: Patient with history of anticoagulation and presentation for single episode of rectal bleeding. No further bleeding since that time. Patient has never had a colonoscopy. States she has a personal history of gynecologic cancer treated with radiation treatment. Will plan colonoscopy on Wednesday. May advance diet over weekend if tolerates with plans for clear liquids on Wednesday. Past Medical History Past Medical History: Atrial Fibrillation, Cancer, CVA/TIA, Hyperlipidemia, Myocardial Infarction ([place]) Additional Past Medical History / Comment(s): 07/27/17 FALL[employer] HIP FX. 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 History of COVID-19 Last Myocardial Infarction Date:: 2009 History of Any Multi-Drug Resistant Organisms: None Reported Past Surgical History: Heart Catheterization, Orthopedic Surgery, Tonsillectomy Additional Past Surgical History / Comment(s): ORIF RT ANKLE HAS PLATE. Past Anesthesia/Blood Transfusion Reactions: No Reported Reaction Past Psychological History: No Psychological Hx Reported Smoking Status: Never smoker Past Alcohol Use History: None Reported Past Drug Use History: None Reported - Past Family History Mother Family Medical History: No Reported History Additional Family Medical History / Comment(s): FROM ANUERYSM Father Family Medical History: No Reported History Medications and Allergies Home Medications Medication Instructions Recorded Confirmed Type Apixaban [Eliquis] 5 mg PO BID #60 tab 09/02/18 11/07/21 Rx Albuterol Inhaler [Ventolin Hfa 2 puff INHALATION RT-Q4H PRN 10/19/21 11/07/21 History Inhaler] Furosemide [Lasix] 20 mg PO DIRECTED 10/19/21 11/07/21 History Metoprolol Tartrate [Lopressor] 100 mg PO TID 10/19/21 11/07/21 History Allergies Allergy/AdvReac Type Severity Reaction Status Date / Time No Known Allergies Allergy Verified 11/07/21 07:50 Surgical - Exam Vital Signs Temp Pulse Resp BP Pulse Ox 97.8 F 88 18 137/90 98 11/06/21 20:49 11/06/21 20:49 11/06/21 20:49 11/06/21 20:49 11/06/21 20:49 Results - Labs 11/07/21 08:14 11/07/21 03:11 Abnormal Lab Results - Last 24 Hours (Table) 11/07/21 11/07/21 11/07/21 Range/Units 03:11 03:11 04:04 RBC 3.78 L (3.80-5.40) m/uL Hgb 10.9 L (11.4-16.0) gm/dL Hct (34.0-46.0) % MCHC 29.9 L (31.0-37.0) g/dL RDW 15.9 H (11.5-15.5) % Chloride 108 H (98-107) mmol/L BUN 29 H (7-17) mg/dL Creatinine 1.67 H (0.52-1.04) mg/dL Glucose 108 H (74-99) mg/dL Stool Occult Blood Positive H (Negative) 11/07/21 Range/Units 08:14 RBC 3.39 L (3.80-5.40) m/uL Hgb 10.2 L (11.4-16.0) gm/dL Hct 33.1 L (34.0-46.0) % MCHC 30.8 L (31.0-37.0) g/dL RDW 15.8 H (11.5-15.5) % Chloride (98-107) mmol/L BUN (7-17) mg/dL Creatinine (0.52-1.04) mg/dL Glucose (74-99) mg/dL Stool Occult Blood (Negative) Diabetes panel 11/07/21 Range/Units 03:11 Sodium 140 (137-145) mmol/L Potassium 4.9 (3.5-5.1) mmol/L Chloride 108 H (98-107) mmol/L Carbon Dioxide 22 (22-30) mmol/L BUN 29 H (7-17) mg/dL Creatinine 1.67 H (0.52-1.04) mg/dL Glucose 108 H (74-99) mg/dL Calcium 9.3 (8.4-10.2) mg/dL AST 22 (14-36) U/L ALT 9 (4-34) U/L Alkaline Phosphatase 65 (38-126) U/L Total Protein 6.8 (6.3-8.2) g/dL Albumin 3.9 (3.5-5.0) g/dL Calcium panel 11/07/21 Range/Units 03:11 Calcium 9.3 (8.4-10.2) mg/dL Albumin 3.9 (3.5-5.0) g/dL Pituitary panel 11/07/21 Range/Units 03:11 Sodium 140 (137-145) mmol/L Potassium 4.9 (3.5-5.1) mmol/L Chloride 108 H (98-107) mmol/L Carbon Dioxide 22 (22-30) mmol/L BUN 29 H (7-17) mg/dL Creatinine 1.67 H (0.52-1.04) mg/dL Glucose 108 H (74-99) mg/dL Calcium 9.3 (8.4-10.2) mg/dL Adrenal panel 11/07/21 Range/Units 03:11 Sodium 140 (137-145) mmol/L Potassium 4.9 (3.5-5.1) mmol/L Chloride 108 H (98-107) mmol/L Carbon Dioxide 22 (22-30) mmol/L BUN 29 H (7-17) mg/dL Creatinine 1.67 H (0.52-1.04) mg/dL Glucose 108 H (74-99) mg/dL Calcium 9.3 (8.4-10.2) mg/dL Total Bilirubin 0.9 (0.2-1.3) mg/dL AST 22 (14-36) U/L ALT 9 (4-34) U/L Alkaline Phosphatase 65 (38-126) U/L Total Protein 6.8 (6.3-8.2) g/dL Albumin 3.9 (3.5-5.0) g/dL
[2021-11-07 16:17] LABS: Anisocytosis Slight; HCT 34.8 % (34.0-46.0); HGB 10.8 gm/dL (11.4-16.0); Hypochromasia Moderate; MCH 30.3 pg (25.0-35.0); MCHC 31.2 g/dL (31.0-37.0); MCV 97.2 fL (80.0-100.0); Macrocytosis Slight; Mean Platelet Volume 7.5; Platelet Count 226 k/uL (150-450); RBC 3.58 m/uL (3.80-5.40); RDW 16.3 % (11.5-15.5); WBC 5.7 k/uL (3.8-10.6)
[2021-11-07] MEDS: METOPROLOL TARTRATE 50 MG TAB PO SCH ×2 (17:01→21:02)
[2021-11-08] MEDS: METOPROLOL TARTRATE 50 MG TAB PO SCH ×3 (08:17→23:34)
[2021-11-08] MEDS: FAMOTIDINE 20 MG TAB PO SCH (08:18)
[2021-11-08 12:32] LABS: Anisocytosis Slight; Basophils % (A) 1 %; Eosinophils # (A) 0.2 k/uL (0-0.7); Eosinophils % (A) 4 %; HCT 36.5 % (34.0-46.0); HGB 11.2 gm/dL (11.4-16.0); Hypochromasia Moderate; Lymphocytes # (A) 0.7 k/uL (1.0-4.8); Lymphocytes % (A) 14 %; MCHC 30.6 g/dL (31.0-37.0); MCV 97.9 fL (80.0-100.0); Macrocytosis Slight; Mean Platelet Volume 7.8; Monocytes # (A) 0.3 k/uL (0-1.0); Monocytes % (A) 6 %; Neutrophils # (A) 3.9 k/uL (1.3-7.7); Neutrophils % (A) 75 %; Platelet Count 210 k/uL (150-450); RBC 3.73 m/uL (3.80-5.40); RDW 16.2 % (11.5-15.5); WBC 5.2 k/uL (3.8-10.6)
[2021-11-08 12:47] LABS: African American GFR (CKD) 41 (>60 ml/min/1.73 sqM); Anion Gap 6 mmol/L; Blood Urea Nitrogen 19 mg/dL (7-17); Calcium 8.7 mg/dL (8.4-10.2); Carbon Dioxide 25 mmol/L (22-30); Chloride 109 mmol/L (98-107); Glucose 155 mg/dL (74-99); Non-African American GFR(CKD) 36 (>60 ml/min/1.73 sqM); Potassium 4.1 mmol/L (3.5-5.1); Sodium 140 mmol/L (137-145)
--- NOTE | 2021-11-08 13:57 | P.PN ---
Subjective Progress Note Date: 11/08/21 CHIEF COMPLAINT: GI bleeding HISTORY OF PRESENT ILLNESS: The patient is a 76-year-old female on blood thinners due to atrial fibrillation presented with bright blood per rectum. General surgery is consulted for management of gastric intestinal bleeding. No new issues overnight. Patient is resting comfortably. ROS: No reports of nausea and vomiting. No fevers or chills. No new chest pain. No productive sputum. Atrial fibrillation PHYSICAL EXAM: VITAL SIGNS: Reviewed CONSTITUTIONAL: Well developed and in no acute distress. EYES: Conjuctivae without sclera icterus. Extraocular movements grossly intact. HEAD, EARS, NOSE, THROAT: Moist buccal mucosa. Head is atraumatic, normocephalic. Hears conversational speech. No nasal drainage. RESPIRATORY: Non-labored respirations and equal bilateral excursions. CARDIOVASCULAR: Palpable 2+ radial pulses. ABDOMEN: No peritonitis. MUSCULOSKELETAL: No gross deformity of the lower extremities noted. No clubbing. No cyanosis. SKIN: Good skin turgor. Well perfused. NEUROLOGIC: Cranial nerves II through XII grossly intact. No focal or la teralizing signs. PSYCH: Lethargic. CLINICAL LABS: Reviewed. Hemoglobin of 10.8-11.2. ASSESSMENT: 1. GI bleed with bright blood per rectum 2. Chronic anticoagulation due to atrial fibrillation PLAN: 1. Continue to hold blood thinners. 2. Colonoscopy advised as patient has no prior history of colonoscopy Objective - Vital Signs Vital signs: Vital Signs Temp 97.7 F 11/08/21 08:00 Pulse 73 11/08/21 08:18 Resp 18 11/08/21 08:18 BP 145/91 11/08/21 08:00 Pulse Ox 96 11/08/21 08:00 FiO2 Intake & Output 11/07/21 11/08/21 11/08/21 18:59 06:59 18:59 Weight 90.718 kg Other: Voiding Method Toilet Toilet # Voids 1 - Labs CBC & Chem 7: 11/08/21 11:44 11/08/21 11:44 Labs: Abnormal Lab Results - Last 24 Hours (Table) 11/07/21 11/08/21 11/08/21 Range/Units 15:40 11:44 11:44 RBC 3.58 L 3.73 L (3.80-5.40) m/uL Hgb 10.8 L 11.2 L (11.4-16.0) gm/dL MCHC 30.6 L (31.0-37.0) g/dL RDW 16.3 H 16.2 H (11.5-15.5) % Lymphocytes # 0.7 L (1.0-4.8) k/uL Chloride 109 H (98-107) mmol/L BUN 19 H (7-17) mg/dL Creatinine 1.42 H (0.52-1.04) mg/dL Glucose 155 H (74-99) mg/dL
--- NOTE | 2021-11-08 20:25 | P.HPIM ---
History of Present Illness H&P Date: 11/07/21 Chief Complaint: Rectal bleeding 76-year-old female who has a known history of atrial fibrillation and anticoagulated with Eliquis. Patient presents to the emergency room with complaints of bright red blood per rectum. She reports that she had one bloody stool at 5:30 last night. She reports that it was a lot of blood and evidence of clots. She denies any abdominal pain. Denies any nausea or vomiting. She denies any prior history of colonoscopies. Denies a history of diverticulitis. Patient's hemoglobin is 10.9. Stool for occult blood is positive. Surgical se rvice consulted in regards to GI bleeding. Review of Systems REVIEW OF SYSTEMS: CONSTITUTIONAL: No fever, no malaise, no fatigue. HEENT: No recent visual problems or hearing problems. Denied any sore throat. CARDIOVASCULAR: No chest pain, orthopnea, PND, no palpitations, no syncope. PULMONARY: No shortness of breath, no cough, no hemoptysis. GASTROINTESTINAL: No diarrhea, no nausea, no vomiting, no abdominal pain. NEUROLOGICAL: No headaches, no weakness, no numbness. HEMATOLOGICAL: Denies any bleeding or petechiae. GENITOURINARY: Denies any burning micturition, frequency, or urgency. MUSCULOSKELETAL/RHEUMATOLOGICAL: Denies any joint pain, swelling, or any muscle pain. ENDOCRINE: Denies any polyuria or polydipsia. The rest of the 14-point review of systems is negative. Past Medical History Past Medical History: Atrial Fibrillation, Cancer, CVA/TIA, Hyperlipidemia, Myocardial Infarction ([place]) Additional Past Medical History / Comment(s): 07/27/17 FALL[employer] HIP FX. OTHER HX"BOARDERLINE DIABETIC- NO MEDS BUT CHECKS BS ONCE A DAY,CVA/TIA 2011 NO RESID UAL EEFECTS, RT ANKLE BROKEN-(SX DONE HAD PLATE), PAST STRESS TEST. History of COVID-19 Last Myocardial Infarction Date:: 2009 History of Any Multi-Drug Resistant Organisms: None Reported Past Surgical History: Heart Catheterization, Orthopedic Surgery, Tonsillectomy Additional Past Surgical History / Comment(s): ORIF RT ANKLE HAS PLATE. Past Anesthesia/Blood Transfusion Reactions: No Reported Reaction Past Psychological History: No Psychological Hx Reported Smoking Status: Never smoker Past Alcohol Use History: None Reported Past Drug Use History: None Reported - Past Family History Mother Family Medical History: No Reported History Additional Family Medical History / Comment(s): FROM ANUERYSM Father Family Medical History: No Reported History Medications and Allergies Home Medications Medication Instructions Recorded Confirmed Type Apixaban [Eliquis] 5 mg PO BID #60 tab 09/02/18 11/07/21 Rx Albuterol Inhaler [Ventolin Hfa 2 puff INHALATION RT-Q4H PRN 10/19/21 11/07/21 History Inhaler] Furosemide [Lasix] 20 mg PO DIRECTED 10/19/21 11/07/21 History Metoprolol Tartrate [Lopressor] 100 mg PO TID 10/19/21 11/07/21 History Allergies Allergy/AdvReac Type Severity Reaction Status Date / Time No Known Allergies Allergy Verified 11/07/21 07:50 Physical Exam Vitals: Vital Signs Temp Pulse Resp BP Pulse Ox 11/07/21 06:52 84 19 153/104 95 11/07/21 04:55 97.9 F 79 15 147/94 96 11/06/21 20:49 97.8 F 88 18 137/90 98 Intake and Output 11/06/21 11/07/21 11/07/21 22:59 06:59 14:59 Intake Total 20 Balance 20 Intake: IV 20 Invasive Line 1 20 Other: Weight 90.718 kg PHYSICAL EXAMINATION: GENERAL: The patient is alert and oriented x3, not in any acute distress. Well developed, well nourished. HEENT: Pupils are round and equally reacting to light. EOMI. No scleral icterus. No conjunctival pallor. Normocephalic, atraumatic. No pharyngeal erythema. No thyromegaly. CARDIOVASCULAR: S1 and S2 present. No murmurs, rubs, or gallops. PULMONARY: Chest is clear to auscultation, no wheezing or crackles. ABDOMEN: Soft, nontender, nondistended, normoactive bowel sounds. No palpable organomegaly. MUSCULOSKELETAL: No joint swelling or deformity. EXTREMITIES: No cyanosis, clubbing, or pedal edema. NEUROLOGICAL: Gross neurological examination did not reveal any focal deficits. SKIN: No rashes. Results CBC & Chem 7: 11/08/21 11:44 11/08/21 11:44 Labs: Abnormal Lab Results - Last 24 Hours (Table) 11/07/21 11/07/21 11/07/21 Range/Units 03:11 03:11 04:04 RBC 3.78 L (3.80-5.40) m/uL Hgb 10.9 L (11.4-16.0) gm/dL Hct (34.0-46.0) % MCHC 29.9 L (31.0-37.0) g/dL RDW 15.9 H (11.5-15.5) % Chloride 108 H (98-107) mmol/L BUN 29 H (7-17) mg/dL Creatinine 1.67 H (0.52-1.04) mg/dL Glucose 108 H (74-99) mg/dL Stool Occult Blood Positive H (Negative) 11/07/21 Range/Units 08:14 RBC 3.39 L (3.80-5.40) m/uL Hgb 10.2 L (11.4-16.0) gm/dL Hct 33.1 L (34.0-46.0) % MCHC 30.8 L (31.0-37.0) g/dL RDW 15.8 H (11.5-15.5) % Chloride (98-107) mmol/L BUN (7-17) mg/dL Creatinine (0.52-1.04) mg/dL Glucose (74-99) mg/dL Stool Occult Blood (Negative) Assessment and Plan Assessment: 1. Acute GI bleed with bright red rectal bleed - We will monitor H&H closely; type crossmatch and transfuse packed RBCs if hemoglobin is less than 7.0 - Protonix 40 mg IV daily 2. Acute on chronic anemia; relates to GI bleed; we will continue to monitor hemoglobin closely and transfuse as indicated above 3. Chronic atrial fibrillation; anticoagulation is placed on hold due to GI bleed; patient remains rate controlled on metoprolol 100 mg 3 times a day 4. Hyperlipidemia; currently not on any statin therapy 5. CVA/TIA; currently not on aspirin; anticoagulation placed on hold due to GI bleed DVT prophylaxis; SCDs CODE STATUS; full code
--- NOTE | 2021-11-08 20:27 | P.PN ---
Subjective Progress Note Date: 11/08/21 Principal diagnosis: Acute GI bleed Acute on chronic anemia related to GI bleed 76-year-old female who has a known history of atrial fibrillation and anti coagulated with Eliquis. Patient presents to the emergency room with complaints of bright red blood per rectum. She reports that she had one bloody stool at 5:30 last night. She reports that it was a lot of blood and evidence of clots. She denies any abdominal pain. Denies any nausea or vomiting. She denies any prior history of colonoscopies. Denies a history of diverticulitis. Patient's hemoglobin is 10.9. Stool for occult blood is positive. Surgical service consulted in regards to GI bleeding. Objective - Vital Signs Vital signs: Vital Signs Temp 97.7 F 11/08/21 08:00 Pulse 73 11/08/21 08:18 Resp 18 11/08/21 08:18 BP 145/91 11/08/21 08:00 Pulse Ox 96 11/08/21 08:00 FiO2 Intake & Output 11/07/21 11/08/21 11/08/21 18:59 06:59 18:59 Weight 90.718 kg Other: Voiding Method Toilet Toilet # Voids 1 - Exam PHYSICAL EXAMINATION: GENERAL: The patient is alert and oriented x3, not in any acute distress. Well developed, well nourished. HEENT: Pupils are round and equally reacting to light. EOMI. No scleral icterus. No conjunctival pallor. Normocephalic, atraumatic. No pharyngeal erythema. No thyromegaly. CARDIOVASCULAR: S1 and S2 present. No murmurs, rubs, or gallops. PULMONARY: Chest is clear to auscultation, no wheezing or crackles. ABDOMEN: Soft, nontender, nondistended, normoactive bowel sounds. No palpable organomegaly. MUSCULOSKELETAL: No joint swelling or deformity. EXTREMITIES: No cyanosis, clubbing, or pedal edema. NEUROLOGICAL: Gross neurological examination did not reveal any focal deficits. SKIN: No rashes. - Labs CBC & Chem 7: 11/08/21 11:44 11/08/21 11:44 Labs: Abnormal Lab Results - Last 24 Hours (Table) 11/07/21 Range/Units 15:40 RBC 3.58 L (3.80-5.40) m/uL Hgb 10.8 L (11.4-16.0) gm/dL RDW 16.3 H (11.5-15.5) % Assessment and Plan Assessment: 1. Acute GI bleed with bright red rectal bleed - We will monitor H&H closely; type crossmatch and transfuse packed RBCs if hemoglobin is less than 7.0 - Protonix 40 mg IV daily 2. Acute on chronic anemia; relates to GI bleed; we will continue to monitor hemoglobin closely and transfuse as indicated above 3. Chronic atrial fibrillation; anticoagulation is placed on hold due to GI bleed; patient remains rate controlled on metoprolol 100 mg 3 times a day 4. Hyperlipidemia; currently not on any statin therapy 5. CVA/TIA; currently not on aspirin; anticoagulation placed on hold due to GI bleed DVT prophylaxis; SCDs CODE STATUS; full code
[2021-11-08] MEDS: SODIUM CHLORIDE 0.9% 1,000 ML IV SCH ×2 (23:34→23:35)
[2021-11-09] MEDS: METOPROLOL TARTRATE 50 MG TAB PO SCH ×3 (07:22→21:42)
[2021-11-09] MEDS: FAMOTIDINE 20 MG TAB PO SCH (07:22)
[2021-11-09 09:15] LABS: African American GFR (CKD) 38.5 (60.0-200.0); Anion Gap 12.9 mmol/L (10.00-18.00); BUN/Creat Ratio 10.4 Ratio (12.00-20.00); Blood Urea Nitrogen 15.6 mg/dL (9.0-27.0); Calcium 9.2 mg/dL (8.7-10.3); Carbon Dioxide 21.1 mmol/L (20.0-27.5); Non-African American GFR(CKD) 33.3 (60.0-200.0)
[2021-11-09 09:20] LABS: Basophils # (A) 0.03 X 10*3/uL (0.00-0.10); Basophils % (A) 0.5 %; Eosinophils # (A) 0.29 X 10*3/uL (0.04-0.35); Eosinophils % (A) 4.6 %; HCT 38.4 % (37.2-46.3); HGB 11.5 g/dL (12.0-15.0); Immature Grans, Automated 0.5 %; Lymphocytes # (A) 0.99 X 10*3/uL (0.90-5.00); Lymphocytes % (A) 15.5 %; MCHC 29.9 g/dL (32.0-37.0); Mean Platelet Volume 10.3 fL (9.5-12.2); Monocytes # (A) 0.55 X 10*3/uL (0.20-1.00); Monocytes % (A) 8.6 %; NRBC Per 100 WBC 0 /100 WBCS (0.0-0.0); Neutrophils # (A) 4.48 X 10*3/uL (1.80-7.70); Neutrophils % (A) 70.3 %; Platelet Count 228 X 10*3/uL (140-440); RBC 3.96 X 10*6/uL (4.10-5.20); RDW 16.5 % (11.5-14.5); WBC 6.37 X 10*3/uL (4.50-10.00)
[2021-11-09] MEDS: ENOXAPARIN 40 MG/0.4 ML SYRINGE SQ SCH (16:51)
--- NOTE | 2021-11-09 17:40 | P.PN ---
Subjective Progress Note Date: 11/09/21 CHIEF COMPLAINT: GI bleeding HISTORY OF PRESENT ILLNESS: The patient is a 76-year-old female on blood thinners due to atrial fibrillation presented with bright blood per rectum. Patient reports concerns of holding her Eliquis due to pre-existing history of strokes. She denies any obvious bleeding. ROS: No reports of nausea and vomiting. No fevers or chills. No new chest pain. No productive sputum. Atrial fibrillation PHYSICAL EXAM: VITAL SIGNS: Reviewed CONSTITUTIONAL: Well developed and in no acute distress. EYES: Conjuctivae without sclera icterus. Extraocular movements grossly intact. HEAD, EARS, NOSE, THROAT: Moist buccal mucosa. Head is atraumatic, normocephalic. Hears conversational speech. No nasal drainage. RESPIRATORY: Non-labored respirations and equal bilateral excursions. CARDIOVASCULAR: Palpable 2+ radial pulses. ABDOMEN: No peritonitis. MUSCULOSKELETAL: No gross deformity of the lower extremities noted. No clubbing. No cyanosis. SKIN: Good skin turgor. Well perfused. NEUROLOGIC: Cranial nerves II through XII grossly intact. No focal or lateralizing signs. PSYCH: Lethargic. CLINICAL LABS: Reviewed. Hemoglobin of 10.8-11.2, now 11.5 ASSESSMENT: 1. GI bleed with bright blood per rectum 2. Chronic anticoagulation due to atrial fibrillation PLAN: 1. As an alternative to blood thinner Eliquis, Lovenox subcutaneous prescribed. 2. Colonoscopy described. Will need bowel prep. Objective - Vital Signs Vital signs: Vital Signs Temp 97.4 F L 11/09/21 14:00 Pulse 87 11/09/21 14:00 Resp 18 11/09/21 14:00 BP 150/81 11/09/21 14:00 Pulse Ox 98 11/09/21 14:00 FiO2 Intake & Output 11/08/21 11/09/21 11/09/21 18:59 06:59 18:59 Intake Total 900 Balance 900 Intake: Intake, IV Titration 900 Amount Sodium Chloride 0.9% 1, 900 000 ml @ 75 mls/hr IV . [id number] [facility] Rx#:[id number] Other: Voiding Method Toilet Toilet Toilet # Voids 5 # Bowel Movements 0 - Labs CBC & Chem 7: 11/09/21 04:11 11/09/21 04:11 Labs: Abnormal Lab Results - Last 24 Hours (Table) 11/09/21 11/09/21 Range/Units 04:11 04:11 RBC 3.96 L (4.10-5.20) X 10*6/uL Hgb 11.5 L (12.0-15.0) g/dL MCHC 29.9 L (32.0-37.0) g/dL RDW 16.5 H (11.5-14.5) % Chloride 110 H (96-109) mmol/L Est GFR (CKD-EPI)AfAm 38.5 L (60.0-200.0) Est GFR (CKD-EPI)NonAf 33.3 L (60.0-200.0) BUN/Creatinine Ratio 10.40 L (12.00-20.00) Ratio Glucose 115 H (70-110) mg/dL
--- NOTE | 2021-11-09 19:50 | P.PN ---
Subjective Progress Note Date: 11/09/21 Principal diagnosis: Acute GI bleed Acute on chronic anemia related to GI bleed 76-year-old female who has a known history of atrial fibrillation and anti coagulated with Eliquis. Patient presents to the emergency room with complaints of bright red blood per rectum. She reports that she had one bloody stool at 5:30 last night. She reports that it was a lot of blood and evidence of clots. She denies any abdominal pain. Denies any nausea or vomiting. She denies any prior history of colonoscopies. Denies a history of diverticulitis. Patient's hemoglobin is 10.9. Stool for occult blood is positive. Surgical service consulted in regards to GI bleeding. 11/09/2021 Patient is seen and evaluated in room at bedside; patient has been on anticoagulation therapy for atrial fibrillation and presented with primary leg blood per rectum; anticoagulation therapy remains on hold Vital signs are reviewed and remained stable Lab reviews a stable hemoglobin of 11.5 Patient is being evaluated by general surgery and plans for colonoscopy tomorrow morning Objective - Vital Signs Vital signs: Vital Signs Temp 97.4 F L 11/09/21 14:00 Pulse 87 11/09/21 14:00 Resp 18 11/09/21 14:00 BP 150/81 11/09/21 14:00 Pulse Ox 98 11/09/21 14:00 FiO2 Intake & Output 11/08/21 11/09/21 11/09/21 18:59 06:59 18:59 Intake Total 900 Balance 900 Intake: Intake, IV Titration 900 Amount Sodium Chloride 0.9% 1, 900 000 ml @ 75 mls/hr IV . [id number] [facility] Rx#:[id number] Other: Voiding Method Toilet Toilet Toilet # Voids 5 # Bowel Movements 0 - Exam PHYSICAL EXAMINATION: GENERAL: The patient is alert and oriented x3, not in any acute distress. Well developed, well nourished. HEENT: Pupils are round and equally reacting to light. EOMI. No scleral icterus. No conjunctival pallor. Normocephalic, atraumatic. No pharyngeal erythema. No thyromegaly. CARDIOVASCULAR: S1 and S2 present. No murmurs, rubs, or gallops. PULMONARY: Chest is clear to auscultation, no wheezing or crackles. ABDOMEN: Soft, nontender, nondistended, normoactive bowel sounds. No palpable organomegaly. MUSCULOSKELETAL: No joint swelling or deformity. EXTREMITIES: No cyanosis, clubbing, or pedal edema. NEUROLOGICAL: Gross neurological examination did not reveal any focal deficits. SKIN: No rashes. - Labs CBC & Chem 7: 11/09/21 04:11 11/09/21 04:11 Labs: Abnormal Lab Results - Last 24 Hours (Table) 11/09/21 11/09/21 Range/Units 04:11 04:11 RBC 3.96 L (4.10-5.20) X 10*6/uL Hgb 11.5 L (12.0-15.0) g/dL MCHC 29.9 L (32.0-37.0) g/dL RDW 16.5 H (11.5-14.5) % Chloride 110 H (96-109) mmol/L Est GFR (CKD-EPI)AfAm 38.5 L (60.0-200.0) Est GFR (CKD-EPI)NonAf 33.3 L (60.0-200.0) BUN/Creatinine Ratio 10.40 L (12.00-20.00) Ratio Glucose 115 H (70-110) mg/dL Assessment and Plan Assessment: 1. Acute GI bleed with bright red rectal bleed - We will monitor H&H closely; type crossmatch and transfuse packed RBCs if hemoglobin is less than 7.0 - Protonix 40 mg IV daily 2. Acute on chronic anemia; relates to GI bleed; we will continue to monitor hemoglobin closely and transfuse as indicated above 3. Chronic atrial fibrillation; anticoagulation is placed on hold due to GI bleed; patient remains rate controlled on metoprolol 100 mg 3 times a day 4. Hyperlipidemia; currently not on any statin therapy 5. CVA/TIA; currently not on aspirin; anticoagulation placed on hold due to GI bleed DVT prophylaxis; SCDs CODE STATUS; full code
[2021-11-09] MEDS: SODIUM CHLORIDE 0.9% 1,000 ML IV SCH (21:42)
[2021-11-10] MEDS: SODIUM CHLORIDE 0.9% 1,000 ML IV SCH ×2 (01:45→16:47)
[2021-11-10] MEDS: METOPROLOL TARTRATE 50 MG TAB PO SCH ×3 (07:48→21:49)
[2021-11-10] MEDS: FAMOTIDINE 20 MG TAB PO SCH (07:48)
[2021-11-10] MEDS ORDERED: PEG 3350-NA SULF,BICARB,CL/KCL 4,000 ML BOTTLE PO ONE (15:02)
[2021-11-10] MEDS: ENOXAPARIN 40 MG/0.4 ML SYRINGE SQ SCH (16:44)
--- NOTE | 2021-11-10 17:57 | P.PN ---
Subjective From records: 76-year-old female who has a known history of atrial fibrillation and anticoagulated with Eliquis. Patient presents to the emergency room with complaints of bright red blood per rectum. She reports that she had one bloody stool at 5:30 last night. She reports that it was a lot of blood and evidence of clots. She denies any abdominal pain. Denies any nausea or vomiting. She denies any prior history of colonoscopies. Denies a history of diverticulitis. Patient's hemoglobin is 10.9. Stool for occult blood is positive. Surgical service consulted in regards to GI bleeding. 11/09/2021 Patient is seen and evaluated in room at bedside; patient has been on anticoagulation therapy for atrial fibrillation and presented with primary leg blood per rectum; anticoagulation therapy remains on hold Vital signs are reviewed and remained stable Lab reviews a stable hemoglobin of 11.5 Patient is being evaluated by general surgery and plans for colonoscopy tomorrow morning I'm resuming care of the patient today 11/10/21 Patient is alert awake and alert. She is complaining of from mild abdominal pain about 3/10, nonradiating, patient denies any more GI bleed episodes Last bowel movement was yesterday, not passing gases. Colonoscopy tomorrow by surgery team Switch Pepcid to Protonix. Monitor hemoglobin Objective - Vital Signs Vital signs: Vital Signs Temp 98.5 F 11/10/21 08:00 Pulse 74 11/10/21 08:00 Resp 18 11/10/21 08:00 BP 135/82 11/10/21 08:00 Pulse Ox 96 11/10/21 08:00 FiO2 Intake & Output 11/09/21 11/10/21 11/10/21 18:59 06:59 18:59 Intake Total 450 Balance 450 Intake: Intake, IV Titration 450 Amount Sodium Chloride 0.9% 1, 450 000 ml @ 75 mls/hr IV . [id number] [facility] Rx#:[id number] Other: Voiding Method Toilet Toilet # Bowel Movements 0 - Exam GENERAL: The patient is alert and oriented x3, not in any acute distress. Well developed, well nourished. HEENT: Pupils are round and equally reacting to light. EOMI. No scleral icterus. No conjunctival pallor. Normocephalic, atraumatic. No pharyngeal erythema. No thyromegaly. CARDIOVASCULAR: S1 and S2 present. No murmurs, rubs, or gallops. PULMONARY: Chest is clear to auscultation, no wheezing or crackles. ABDOMEN: Soft, nontender, nondistended, normoactive bowel sounds. No palpable organomegaly. MUSCULOSKELETAL: No joint swelling or deformity. EXTREMITIES: No cyanosis, clubbing, or pedal edema. NEUROLOGICAL: Gross neurological examination did not reveal any focal deficits. SKIN: No rashes. no petechiae. - Labs CBC & Chem 7: 11/09/21 04:11 11/09/21 04:11 Assessment and Plan Assessment: Acute GI bleed Acute blood loss anemia Chronic atrial fibrillation, on liquids which is on hold Hyperlipidemia History of CVA/TIA Plan: This is a pleasant 76 years old female who presents with bright blood per rectum Monitor hemoglobin Surgery team on the case recommended to hold liquids and bowel preparation for colonoscopy Switch Pepcid to Protonix Continue with gentle hydration Labs and medication were reviewed.. Continue same treatment. Continue with symptomatic treatment. Resume home medication. Monitor lytes and vitals. DVT and GI prophylaxis. Further recommendations as per clinical course of the pat ient DVT prophylaxis: No anticoagulation GI Prophylaxis: Ppi PT/OT: Pending Prognosis is guarded
[2021-11-10] MEDS: PANTOPRAZOLE 40 MG/10 ML VIAL IVP SCH (18:11)
[2021-11-11] MEDS: SODIUM CHLORIDE 0.9% 1,000 ML IV SCH ×2 (03:22→16:00)
--- NOTE | 2021-11-11 07:59 | P.PN ---
Subjective Progress Note Date: 11/10/21 CHIEF COMPLAINT: GI bleeding HISTORY OF PRESENT ILLNESS: The patient is a 76-year-old female on blood thinners due to atrial fibrillation presented with bright blood per rectum. Patient is on bowel prep. No bowel movements at this time. ROS: No reports of nausea and vomiting. No fevers or chills. No new chest pain. No productive sputum. PHYSICAL EXAM: VITAL SIGNS: Reviewed CONSTITUTIONAL: Well developed and in no acute distress. EYES: Conjuctivae without sclera icterus. Extraocular movements grossly intact. HEAD, EARS, NOSE, THROAT: Moist buccal mucosa. Head is atraumatic, normoceph alic. Hears conversational speech. No nasal drainage. RESPIRATORY: Non-labored respirations and equal bilateral excursions. CARDIOVASCULAR: Palpable 2+ radial pulses. ABDOMEN: No peritonitis. MUSCULOSKELETAL: No gross deformity of the lower extremities noted. No clubbing. No cyanosis. SKIN: Good skin turgor. Well perfused. NEUROLOGIC: Cranial nerves II through XII grossly intact. No focal or lateralizing signs. PSYCH: Lethargic. CLINICAL LABS: Reviewed. No new labs. ASSESSMENT: 1. GI bleed with bright blood per rectum 2. Chronic anticoagulation due to atrial fibrillation PLAN: 1. Recommend completion of bowel prep for colonoscopy. Objective - Vital Signs Vital signs: Vital Signs Temp 98.2 F 11/11/21 02:00 Pulse 75 11/11/21 02:00 Resp 18 11/11/21 02:00 BP 129/86 11/11/21 02:00 Pulse Ox 95 11/11/21 02:00 FiO2 Intake & Output 11/10/21 11/11/21 11/11/21 18:59 06:59 18:59 Intake Total 1500 Output Total 11 Balance 1500 -11 Intake: Oral 1500 Output: Urine 4 Stool 7 Other: Voiding Method Toilet # Voids 3 - Labs CBC & Chem 7: 11/09/21 04:11 11/09/21 04:11
[2021-11-11 08:58] LABS: Basophils # (A) 0.03 X 10*3/uL (0.00-0.10); Basophils % (A) 0.5 %; Eosinophils # (A) 0.25 X 10*3/uL (0.04-0.35); Eosinophils % (A) 3.9 %; HCT 39.2 % (37.2-46.3); HGB 11.6 g/dL (12.0-15.0); Immature Grans, Automated 0.3 %; Lymphocytes # (A) 1.31 X 10*3/uL (0.90-5.00); Lymphocytes % (A) 20.3 %; MCHC 29.6 g/dL (32.0-37.0); Mean Platelet Volume 10.9 fL (9.5-12.2); Monocytes % (A) 9.3 %; NRBC Per 100 WBC 0 /100 WBCS (0.0-0.0); Neutrophils # (A) 4.25 X 10*3/uL (1.80-7.70); Neutrophils % (A) 65.7 %; Platelet Count 233 X 10*3/uL (140-440); RDW 16.9 % (11.5-14.5); WBC 6.46 X 10*3/uL (4.50-10.00)
[2021-11-11] MEDS: PANTOPRAZOLE 40 MG/10 ML VIAL IVP SCH (09:00)
[2021-11-11] MEDS: METOPROLOL TARTRATE 50 MG TAB PO SCH ×3 (09:01→22:28)
[2021-11-11 09:26] LABS: African American GFR (CKD) 27.2 (60.0-200.0); Anion Gap 14.9 mmol/L (10.00-18.00); BUN/Creat Ratio 8.95 Ratio (12.00-20.00); Blood Urea Nitrogen 17.9 mg/dL (9.0-27.0); Calcium 9.7 mg/dL (8.7-10.3); Carbon Dioxide 22.1 mmol/L (20.0-27.5); Magnesium 1.9 mg/dL (1.5-2.4); Non-African American GFR(CKD) 23.5 (60.0-200.0); Potassium 4.2 mmol/L (3.5-5.5)
[2021-11-11] MEDS ORDERED: PROPOFOL 10 MG/ML 20 ML VIAL IV ONE (13:21)
[2021-11-11] MEDS ORDERED: SODIUM CHLORIDE 0.9% 500 ML 500 ML IV ONE ×2 (13:22)
--- NOTE | 2021-11-11 13:46 | P.PCN ---
Date of Procedure: 11/11/21 Procedure(s) Performed: PREOPERATIVE DIAGNOSIS: Rectal bleeding POSTOPERATIVE DIAGNOSIS: Diverticulosis, tortuous colon PROCEDURE: Attempted colonoscopy, only able to reach proximal sigmoid colon ANESTHESIA: MAC SURGEON: Drake Escobar M.D. SPECIMENS: None ENDOSCOPIC PROCEDURE: The patient was placed on the endoscopy table in the left decubitus position. The Olympus colonoscope was inserted into the anus and passed under direct visualization to the proximal sigmoid colon. The patient had significant tortuosity throughout the sigmoid colon with extensive diverticulosis. We were unable to advance it scope more proximal than that because of the tortuosity distally in the sigmoid colon. The scope was withdrawn. No abnormalities were present throughout the sigmoid and rectum. Digital rectal examination was normal. The patient was taken to the recovery room in stable condition per anesthesia guidelines. RECOMMENDATIONS: Etiology of bleeding uncertain but could be related to extensive diverticulosis. We'll order a barium enema to evaluate the remainder of the colon. Continue clear liquids.
[2021-11-11] MEDS: ENOXAPARIN 40 MG/0.4 ML SYRINGE SQ SCH (15:58)
--- NOTE | 2021-11-11 17:58 | P.PN ---
Progress Note - Text Progress Note Date: 11/11/21 This is a 76-year-old patient, follows with Dr. Maddox. Chronic stable medical conditions include atrial fibrillation, congestive heart failure EF 35%, hyperlipidemia, CAD, hypertension. Normally uses a recheck to get about. Able to transfer herself. In 2018 patient was followed up at [facility] where she was diagnosed with adenocarcinoma of the uterus. Patient did receive several radiation treatment. According the patient nobody called her to follow up and she was lost to follow- up accordingly. Patient recently discharged on October 22. Seen by urology Dr. Rocha. Possibility of ureterall stent on the right site. - outpatient. Patient to follow-up with [facility] outpatient. As arranged by oncology team here. Patient now presents with bright red blood per rectum. Significant amount of blood clots. November 11: I assumed care of patient today. Saw the patient this morning. Pending endoscopy. No further bleeding. No abdominal pain. Later this afternoon patient underwent coloscopy incomplete because of extreme tortuosity Dr. Avila could not go beyond the sigmoid colon. He ordered a barium enema. Clear liquid started Active Medications Acetaminophen (Acetaminophen Tab 325 Mg Tab) 650 mg PO Q6HR PRN PRN Reason: Mild Pain or Fever > 100.5 Albuterol Sulfate (Albuterol Nebulized 2.5 Mg/3 Ml) 2.5 mg INHALATION RT-Q4H PRN PRN Reason: Shortness Of Breath Enoxaparin Sodium (Enoxaparin 40 Mg/0.4 Ml Syringe) 40 mg SQ Q24H [facility] Last Admin: 11/11/21 15:58 Dose: 40 mg Sodium Chloride (Saline 0.9%) 1,000 mls @ 75 mls/hr IV .[id number] [facility] Last Admin: 11/11/21 16:00 Dose: 75 mls/hr Metoprolol Tartrate (Metoprolol Tartrate 50 Mg Tab) 100 mg PO TID [facility] Last Admin: 11/11/21 16:00 Dose: 100 mg Naloxone HCl (Naloxone 0.4 Mg/Ml 1 Ml Vial) 0.2 mg IV Q2M PRN PRN Reason: Opioid Reversal Pantoprazole Sodium (Pantoprazole 40 Mg/10 Ml Vial) 40 mg IVP DAILY [facility] Last Admin: 11/11/21 09:00 Dose: 40 mg Past medical history to include: Stroke, atrial fibrillation, hyperlipidemia, CAD with stent, CHF with EF of 35, hyperlipidemia, CK D Social history: Lives alone. No alcohol. Patient smoked for 53 years 1 pack a day stopped in 2011 Family history: Aneurysm Physical examination: VITAL SIGNS: 98.3, 75, 18, 1:30/75, 95% room air GENERAL: laying in bed awake, comfortable EYES: Pupils equal. Conjunctiva normal. HEENT: External appearance of nose and ears normal, oral cavity grossly normal. NECK: JVD not raised; masses not palpable. HEART: First and second heart sounds are normal; no edema. LUNGS: Respiratory rate normal; clear to auscultation. ABDOMEN: Soft, nontender, liver spleen not palpable, no masses palpable. PSYCH: Alert and oriented x3; mood and affect normal. MUSCULOSKELETAL:No Clubbing/cyanosis;muscles-grossly intact. OA INVESTIGATIONS, reviewed in the clinical context: White count 6.4 hemoglobin 10.6 platelets 233 potassium 4.2 creatinine 2.0 Previous studies: CT abdomen pelvis without contrast: Atelectasis. Moderate cardiomegaly. Dilated gallbladder with multiple gallstones. Dilated endometrial cavity. Sigmoid diverticulosis. Moderately severe right-sided hydronephrosis and hydroureter. 2-D echocardiogram: [May 2021]: Moderate concentric LVH. EF 50-60%.. Creatinine 1.5 in June 2021 Assessment and plan: -Acute lower GI. bleed Unsuccessful colonoscopy today. Due to a tortuous colon. Barium enema ordered. -Severe colonic diverticulosis Could be the possible source of bleeding -Recent vaginal bleeding in a patient with known uterine adenocarcinoma. 4. Patient did receive radiation treatment 2018. Apparently patient was lost to follow-up. Patient to follow-up [facility] at [facility]. -Chronic kidney disease stage III likely nephrosclerosis Creatinine 1.5 in July 05 -Chronic congestive heart failure from diastolic dysfunction EF 55-60 % Follow clinically. -CAD with a history of stent Lopressor 100 mg 3 times a day -Persistent atrial fibrillation, rate controlled Lopressor 100 mg 3 times a day Eliquis 5 mg twice a day-resumed tonight -Choledocholithiasis, asymptomatic -Sigmoid diverticulosis, asymptomatic -Moderate right-sided hydronephrosis and hydroureter Seen by Dr. Simmons from urology. intervention as outpatient Unsuccessful colonoscopy today because of tortuous colon. Barium enema ordered by surgery. Clear liquid diet. Other medications to continue
[2021-11-12] MEDS: PANTOPRAZOLE 40 MG/10 ML VIAL IVP SCH (09:47)
[2021-11-12] MEDS: METOPROLOL TARTRATE 50 MG TAB PO SCH ×3 (09:47→21:54)
--- NOTE | 2021-11-12 13:10 | P.PN ---
Subjective Progress Note Date: 11/12/21 CHIEF COMPLAINT: GI bleed HISTORY OF PRESENT ILLNESS: Patient reports no further blood per rectum. She d enies any abdominal pain. Patient had attempted colonoscopy yesterday. Dr. Escobar was only able to reach the proximal sigmoid colon. He reports etiology of bleeding uncertain but could be related to extensive diverticulosis. He did order a barium enema to be completed. Results are pending. Afebrile. Last hemoglobin stable at 11.6 PHYSICAL EXAM: VITAL SIGNS: Reviewed. GENERAL: Well-developed in no acute distress. HEENT: No sclera icterus. Extraocular movements grossly intact. Moist buccal mucosa. Head is atraumatic, normocephalic. ABDOMEN: Soft. Nondistended. Nontender. NEUROLOGIC: Alert and oriented. Cranial nerves II through XII grossly intact. ASSESSMENT: 1. Rectal bleeding with evidence of extensive diverticulosis on colonoscopy. Attempted colonoscopy only able to reach the proximal sigmoid colon PLAN: -Patient scheduled for barium enema today. Results are pending. -Continue supportive care -Continue clear liquid diet Physician Irrigation Specialist note has been reviewed by physician. Signing provider agrees with the documented findings, assessment, and plan of care. Objective - Vital Signs Vital signs: Vital Signs Temp 97.9 F 11/12/21 07:19 Pulse 85 11/12/21 08:00 Resp 20 11/12/21 08:00 BP 137/84 11/12/21 07:19 Pulse Ox 95 11/12/21 07:19 FiO2 Intake & Output 11/11/21 11/12/21 11/12/21 18:59 06:59 18:59 Intake Total 850 Balance 850 Intake: IV 250 Intake, IV Titration 600 Amount Sodium Chloride 0.9% 1, 600 000 ml @ 75 mls/hr IV . [id number] [facility] Rx#:[id number] Other: Voiding Method Toilet Toilet - Labs CBC & Chem 7: 11/11/21 03:56 11/11/21 03:56
--- NOTE | 2021-11-12 16:25 | FL ---
EXAMINATION TYPE: FL barium enema w air contrast DATE OF EXAM: 11/12/2021 COMPARISON: None HISTORY: Incomplete colonoscopy, GI bleed TECHNIQUE: Real time observation with fluoroscopy was performed. Fluoroscopy failed during the examin ation and overhead radiographs were obtained to document could be performed. The procedure was termin ated. FINDINGS: Images: 7 Fluoroscopy time: 42 seconds Vegetable Harvest Worker view: Cholelithiasis is present. Large calcifications in the right upper quadrant. Contrast is placed in preparation for double air contrast technique. However, contrast would not pass beyond the distal sigmoid colon. There is circumferential narrowing. Apical core lesion is not clear ly identified. On the final image there is some smooth border as well as multiple diverticuli evident to this area of narrowing. Stenosis may be present. Recommend clear liquid diet and repeat study with water soluble single contrast technique. IMPRESSION: 1. There appears to be stenosis within the distal sigmoid colon. Suspicious discrete lesion however is not identified based on these images. 2. Due to technical factors as well as the current findings, repeat study with water-soluble contrast is recommended
[2021-11-12] MEDS: ENOXAPARIN 30 MG/0.3 ML SYRINGE SQ SCH (17:09)
[2021-11-12] MEDS: SODIUM CHLORIDE 0.9% 1,000 ML IV SCH ×2 (21:55→21:56)
--- NOTE | 2021-11-12 22:48 | P.PN ---
Progress Note - Text Progress Note Date: 11/12/21 This is a 76-year-old patient, follows with Dr. Maddox. Chronic stable medical conditions include atrial fibrillation, congestive heart failure EF 35%, hyperlipidemia, CAD, hypertension. Normally uses a recheck to get about. Able to transfer herself. In 2018 patient was followed up at [facility] where she was diagnosed with adenocarcinoma of the uterus. Patient did receive several radiation treatment. According the patient nobody called her to follow up and she was lost to follow- up accordingly. Patient recently discharged on October 22. Seen by urology Dr. Rocha. Possibility of ureterall stent on the right site. - outpatient. Patient to follow-up with [facility] outpatient. As arranged by oncology team here. Patient now presents with bright red blood per rectum. Significant amount of blood clots. November 11: I assumed care of patient today. Saw the patient this morning. Pending endoscopy. No further bleeding. No abdominal pain. Later this afternoon patient underwent coloscopy incomplete because of extreme tortuosity Dr. Avila could not go beyond the sigmoid colon. He ordered a barium enema. Clear liquid started November 12: Supple the patient earlier today. Pending barium enema. Discussed with Dr. Avila. If unremarkable to resume diet. Later barium enema showed suspicious stenosis in the distal sigmoid colon. Repeat water-soluble contrast study recommended Active Medications Acetaminophen (Acetaminophen Tab 325 Mg Tab) 650 mg PO Q6HR PRN PRN Reason: Mild Pain or Fever > 100.5 Last Admin: 11/12/21 17:10 Dose: 650 mg Albuterol Sulfate (Albuterol Nebulized 2.5 Mg/3 Ml) 2.5 mg INHALATION RT-Q4H PRN PRN Reason: Shortness Of Breath Enoxaparin Sodium (Enoxaparin 30 Mg/0.3 Ml Syringe) 30 mg SQ Q24H [facility] Last Admin: 11/12/21 17:09 Dose: 30 mg Sodium Chloride (Saline 0.9%) 1,000 mls @ 75 mls/hr IV .[id number] [facility] Last Admin: 11/12/21 21:56 Dose: Not Given Metoprolol Tartrate (Metoprolol Tartrate 50 Mg Tab) 100 mg PO TID [facility] Last Admin: 11/12/21 21:54 Dose: 100 mg Naloxone HCl (Naloxone 0.4 Mg/Ml 1 Ml Vial) 0.2 mg IV Q2M PRN PRN Reason: Opioid Reversal Pantoprazole Sodium (Pantoprazole 40 Mg/10 Ml Vial) 40 mg IVP DAILY [facility] Last Admin: 11/12/21 09:47 Dose: 40 mg Past medical history to include: Stroke, atrial fibrillation, hyperlipidemia, CAD with stent, CHF with EF of 35, hyperlipidemia, CK D Social history: Lives alone. No alcohol. Patient smoked for 53 years 1 pack a day stopped in 2011 Family history: Aneurysm Physical examination: VITAL SIGNS: 98.6, 88, 18, 141/71, 96% room air GENERAL: laying in bed awake, comfortable EYES: Pupils equal. Conjunctiva normal. HEENT: External appearance of nose and ears normal, oral cavity grossly normal. NECK: JVD not raised; masses not palpable. HEART: First and second heart sounds are normal; no edema. LUNGS: Respiratory rate normal; clear to auscultation. ABDOMEN: Soft, nontender, liver spleen not palpable, no masses palpable. PSYCH: Alert and oriented x3; mood and affect normal. MUSCULOSKELETAL:No Clubbing/cyanosis;muscles-grossly intact. OA INVESTIGATIONS, reviewed in the clinical context: Barium enema: Stenosis sigmoid colon. White count 6.4 hemoglobin 10.6 platelets 233 potassium 4.2 creatinine 2.0 Previous studies: CT abdomen pelvis without contrast: Atelectasis. Moderate cardiomegaly. Dilated gallbladder with multiple gallstones. Dilated endometrial cavity. Sigmoid diverticulosis. Moderately severe right-sided hydronephrosis and hydroureter. 2-D echocardiogram: [May 2021]: Moderate concentric LVH. EF 50-60%.. Creatinine 1.5 in June 2021 Assessment and plan: -Acute lower GI. bleed Unsuccessful colonoscopy - Due to a tortuous colon. Barium enema showing sigmoid colon stenosis. Water-soluble contrast enema recommended -Severe colonic diverticulosis Could be the possible source of bleeding -Recent vaginal bleeding in a patient with known uterine adenocarcinoma. 4. Patient did receive radiation treatment 2018. Apparently patient was lost to follow-up. Patient to follow-up [facility] at [facility]. -Chronic kidney disease stage III likely nephrosclerosis Creatinine 1.5 in July 05 -Chronic congestive heart failure from diastolic dysfunction EF 55-60 % Follow clinically. -CAD with a history of stent Lopressor 100 mg 3 times a day -Persistent atrial fibrillation, rate controlled Lopressor 100 mg 3 times a day Eliquis 5 mg twice a day-resumed tonight -Choledocholithiasis, asymptomatic -Sigmoid diverticulosis, asymptomatic -Moderate right-sided hydronephrosis and hydroureter Seen by Dr. Simmons from urology. intervention as outpatient Barium enema results noted. Clear liquid diet. Possible repeat water-soluble contrast barium enema as per Dr. Avila.
[2021-11-13] MEDS: METOPROLOL TARTRATE 50 MG TAB PO SCH ×3 (07:21→21:13)
[2021-11-13] MEDS: PANTOPRAZOLE 40 MG/10 ML VIAL IVP SCH (11:04)
[2021-11-13] MEDS: SODIUM CHLORIDE 0.9% 1,000 ML IV SCH (11:04)
--- NOTE | 2021-11-13 11:47 | FL ---
EXAMINATION TYPE: FL barium enema DATE OF EXAM: 11/13/2021 COMPARISON: Attempted barium enema yesterday. CT abdomen and pelvis 01/31/2022. HISTORY: GI bleed. History of cervical cancer. TECHNIQUE: A single contrast enema study is attempted using diluted Isovue is attempted. A total of 44 seconds of fluoroscopic time was utilized during procedure and 9 images obtained. FINDINGS: Ice Cream Man view of the abdomen shows some retained barium in the sigmoid rectal colon including diverticula at this level. There is overall nonobstructive bowel gas pattern. Large gallstones and d istended gallbladder also redemonstrated. Enema study was attempted. Patient had no effort or desire to proceed. Upon starting contrast, patien t passed balloon inflated enema through rectum. This is repositioned. Upon second start of contrast p atient refused to change positions are rolled on stomach. Contrast passed into the transverse colon a nd then patient expelled the enema through rectum. At this point procedure was terminated as patient was not cooperative and did not wish to proceed. Sigmoid colonic diverticulosis is confirmed. IMPRESSION: As above. Incomplete evaluation. Sigmoid colonic diverticulosis is present. On review of recent CT there is presumed metastatic adenopathy in patient with history of cervical cancer causing obstructive severe right-sided hydronephrosis. Note is made of right proximal tracy-rectal 3.0 cm per itoneal deposit axial image 119 consistent with suspected metastatic disease. PET CT follow-up can b e performed to confirm above.
--- NOTE | 2021-11-13 12:01 | P.PN ---
Subjective Progress Note Date: 11/13/21 CHIEF COMPLAINT: GI bleed HISTORY OF PRESENT ILLNESS: Patient reports no further blood per rectum. She d enies any abdominal pain. Patient had attempted colonoscopy on 11/11/21. Dr. Escobar was only able to reach the proximal sigmoid colon. He reports etiology of bleeding uncertain but could be related to extensive diverticulosis. Patient did have barium enema with air reports states there appears to be stenosis within the distal sigmoid colon. Suspicious discrete lesion however is not identified based on these images. Due to technical factors as well as current findings repeat study with water soluble contrast is recommended. Barium enema with water soluble contrast done today but was terminated because patient was uncooperative. Result reports incomplete evaluation. Sigmoid colonic dive rticulosis is present. Radiologist On review of recent CT there is presumed metastatic adenopathy in patient with history of cervical cancer causing obstructive severe right-sided hydronephrosis. Note is made of right proximal perirectal 3.0 cm peritoneal deposits consistent with suspected metastatic disease. PET scan follow-up can performed to confirm above. PHYSICAL EXAM: VITAL SIGNS: Reviewed. GENERAL: Well-developed in no acute distress. HEENT: No sclera icterus. Extraocular movements grossly intact. Moist buccal mucosa. Head is atraumatic, normocephalic. ABDOMEN: Soft. Nondistended. Nontender. NEUROLOGIC: Alert and oriented. Cranial nerves II through XII grossly intact. ASSESSMENT: 1. Rectal bleeding with evidence of extensive diverticulosis on colonoscopy. Attempted colonoscopy only able to reach the proximal sigmoid colon PLAN: -Further recommendations forthcoming per surgeon -Continue supportive care -Continue clear liquid diet Physician Embossing Machine Tender note has been reviewed by physician. Signing provider agrees with the documented findings, assessment, and plan of care. I have personally seen and examined the patient, reviewed the COIL PLACER /PAs history, exam and MDM and agree with the assessment and plan as written. Based on total visit time, I have performed more than 50% of the visit. As above: No further bleeding. CAT scan and barium enema results reviewed with the patient. Recommend oncologic evaluation. Will follow. Objective - Vital Signs Vital signs: Vital Signs Temp 98 F 11/13/21 07:16 Pulse 74 11/13/21 07:16 Resp 19 11/13/21 07:16 BP 140/76 11/13/21 07:16 Pulse Ox 92 L 11/13/21 07:16 FiO2 Intake & Output 06/01/22 06/02/22 06/02/22 18:59 06:59 18:59 Intake Total 500 Balance 500 Intake: Oral 500 Other: Voiding Method Toilet Toilet Toilet # Voids 3 2 - Labs CBC & Chem 7: 11/11/21 03:56 11/11/21 03:56
[2021-11-13] MEDS: ENOXAPARIN 30 MG/0.3 ML SYRINGE SQ SCH (16:15)
--- NOTE | 2021-11-13 18:30 | P.PN ---
Progress Note - Text Progress Note Date: 11/13/21 This is a 76-year-old patient, follows with Dr. Maddox. Chronic stable medical conditions include atrial fibrillation, congestive heart failure EF 35%, hyperlipidemia, CAD, hypertension. Normally uses a recheck to get about. Able to transfer herself. In 2018 patient was followed up at [facility] where she was diagnosed with adenocarcinoma of the uterus. Patient did receive several radiation treatment. According the patient nobody called her to follow up and she was lost to follow- up accordingly. Patient recently discharged on October 22. Seen by urology Dr. Rocha. Possibility of ureterall stent on the right site. - outpatient. Patient to follow-up with [facility] oncology outpatient. As arranged by oncology team here. Patient now presents with bright red blood per rectum. Significant amount of blood clots. November 11: I assumed care of patient today. Saw the patient this morning. Pending endoscopy. No further bleeding. No abdominal pain. Later this afternoon patient underwent coloscopy incomplete because of extreme tortuosity Dr. Avila could not go beyond the sigmoid colon. He ordered a barium enema. Clear liquid started November 12: Supple the patient earlier today. Pending barium enema. Discussed with Dr. Avila. If unremarkable to resume diet. Later barium enema showed suspicious stenosis in the distal sigmoid colon. Repeat water-soluble contrast study recommended November 13: Oncology consulted because of enema results. Other medications to continue. Clear liquid diet. Contrast enema was tried today. Unsuccessful. Active Medications Acetaminophen (Acetaminophen Tab 325 Mg Tab) 650 mg PO Q6HR PRN PRN Reason: Mild Pain or Fever > 100.5 Last Admin: 11/12/21 17:10 Dose: 650 mg Albuterol Sulfate (Albuterol Nebulized 2.5 Mg/3 Ml) 2.5 mg INHALATION RT-Q4H PRN PRN Reason: Shortness Of Breath Enoxaparin Sodium (Enoxaparin 30 Mg/0.3 Ml Syringe) 30 mg SQ Q24H [facility] Last Admin: 11/13/21 16:15 Dose: 30 mg Sodium Chloride (Saline 0.9%) 1,000 mls @ 75 mls/hr IV .[id number] [facility] Last Admin: 11/13/21 11:04 Dose: Not Given Metoprolol Tartrate (Metoprolol Tartrate 50 Mg Tab) 100 mg PO TID [facility] Last Admin: 11/13/21 16:14 Dose: 100 mg Naloxone HCl (Naloxone 0.4 Mg/Ml 1 Ml Vial) 0.2 mg IV Q2M PRN PRN Reason: Opioid Reversal Pantoprazole Sodium (Pantoprazole 40 Mg/10 Ml Vial) 40 mg IVP DAILY [facility] Last Admin: 11/13/21 11:04 Dose: 40 mg Past medical history to include: Stroke, atrial fibrillation, hyperlipidemia, CAD with stent, CHF with EF of 35, hyperlipidemia, CK D Social history: Lives alone. No alcohol. Patient smoked for 53 years 1 pack a day stopped in 2011 Family history: Aneurysm Physical examination: VITAL SIGNS: 97.8, 90, 18, 1:30/80, 95% room air GENERAL: laying in bed awake, comfortable EYES: Pupils equal. Conjunctiva normal. HEENT: External appearance of nose and ears normal, oral cavity grossly normal. NECK: JVD not raised; masses not palpable. HEART: First and second heart sounds are normal; no edema. LUNGS: Respiratory rate normal; clear to auscultation. ABDOMEN: Soft, nontender, liver spleen not palpable, no masses palpable. PSYCH: Alert and oriented x3; mood and affect normal. MUSCULOSKELETAL:No Clubbing/cyanosis;muscles-grossly intact. OA INVESTIGATIONS, reviewed in the clinical context: Barium enema: Stenosis sigmoid colon. White count 6.4 hemoglobin 10.6 platelets 233 potassium 4.2 creatinine 2.0 Previous studies: CT abdomen pelvis without contrast: Atelectasis. Moderate cardiomegaly. Dilated gallbladder with multiple gallstones. Dilated endometrial cavity. Sigmoid diverticulosis. Moderately severe right-sided hydronephrosis and hydroureter. 2-D echocardiogram: [May 2021]: Moderate concentric LVH. EF 50-60%.. Creatinine 1.5 in June 2021 Assessment and plan: -Acute lower GI. bleed Unsuccessful colonoscopy - Due to a tortuous colon. Barium enema showing sigmoid colon stenosis. -Colonic stenotic mass Oncology consulted -Severe colonic diverticulosis Could be the possible source of bleeding -Recent vaginal bleeding in a patient with known uterine adenocarcinoma. 4. Patient did receive radiation treatment 2018. Apparently patient was lost to follow-up. Patient to follow-up [facility] oncology at [facility]. -Chronic kidney disease stage III likely nephrosclerosis Creatinine 1.5 in July 05 -Chronic congestive heart failure from diastolic dysfunction EF 55-60 % Follow clinically. -CAD with a history of stent Lopressor 100 mg 3 times a day -Persistent atrial fibrillation, rate controlled Lopressor 100 mg 3 times a day Eliquis 5 mg twice a day-resumed tonight -Choledocholithiasis, asymptomatic -Sigmoid diverticulosis, asymptomatic -Moderate right-sided hydronephrosis and hydroureter Seen by Dr. Simmons from urology. intervention as outpatient Oncology consulted. Other medications to continue.
[2021-11-14] MEDS: SODIUM CHLORIDE 0.9% 1,000 ML IV SCH ×2 (01:11→08:50)
[2021-11-14] MEDS: METOPROLOL TARTRATE 50 MG TAB PO SCH ×3 (08:39→21:10)
[2021-11-14] MEDS: PANTOPRAZOLE 40 MG TABLET PO SCH (08:46)
[2021-11-14 12:35] VITALS: BMI 30.4
--- NOTE | 2021-11-14 12:49 | P.PN ---
Subjective Progress Note Date: 11/14/21 CHIEF COMPLAINT: GI bleed HISTORY OF PRESENT ILLNESS: Patient reports no further blood per rectum. Patie nt complains of some mild lower abdominal pain today. Denies any nausea or vomiting. Patient had attempted colonoscopy on 11/11/21. Dr. Escobar was only able to reach the proximal sigmoid colon. He reports etiology of bleeding uncertain but could be related to extensive diverticulosis. Patient did have barium enema with air reports states there appears to be stenosis within the distal sigmoid colon. Suspicious discrete lesion however is not identified based on these images. Due to technical factors as well as current findings repeat study with water soluble contrast is recommended. Barium enema with water soluble contrast done today but was terminated because patient was uncooperative. Result reports incomplete evaluation. Sigmoid colonic diverticulosis is present. Radiologist On review of recent CT there is presumed metastatic adenopathy in patient with history of cervical cancer causing obstructive severe right-sided hydronephrosis. Note is made of right proximal perirectal 3.0 cm peritoneal deposits consistent with suspected metastatic disease. Oncology is on consult. Afebrile PHYSICAL EXAM: VITAL SIGNS: Reviewed. GENERAL: Well-developed in no acute distress. HEENT: No sclera icterus. Extraocular movements grossly intact. Moist buccal mucosa. Head is atraumatic, normocephalic. ABDOMEN: Soft. Nondistended. nontender NEUROLOGIC: Alert and oriented. Cranial nerves II through XII grossly intact. ASSESSMENT: 1. Rectal bleeding with evidence of extensive diverticulosis on colonoscopy. Attempted colonoscopy only able to reach the proximal sigmoid colon PLAN: -Further recommendations forthcoming per surgeon -Continue supportive care -Advance diet to regular -Oncology consulted regarding the perirectal peritoneal deposits with suspected metastatic disease that was noted on imaging Physician Goat Driver note has been reviewed by physician. Signing provider agrees with the documented findings, assessment, and plan of care. I have personally seen and examined the patient, reviewed the ETCHER ENAMELING /PAs history, exam and MDM and agree with the assessment and plan as written. Based on total visit time, I have performed more than 50% of the visit. As above: Patient without new complaints. Oncology was consulted. Await their input. No general surgery intervention planned at this time. We'll sign off. Please call if needed. Objective - Vital Signs Vital signs: Vital Signs Temp 97.8 F 11/14/21 08:33 Pulse 75 11/14/21 08:33 Resp 19 11/14/21 08:33 BP 133/92 11/14/21 08:33 Pulse Ox 96 11/14/21 08:33 FiO2 Intake & Output 11/13/21 11/14/21 11/14/21 18:59 06:59 18:59 Weight 90.718 kg Other: Voiding Method Toilet # Voids 2 1 - Labs CBC & Chem 7: 11/14/21 12:54 11/14/21 12:54
[2021-11-14 13:19] LABS: Anisocytosis Slight; Basophils % (A) 0 %; Eosinophils # (A) 0.1 k/uL (0-0.7); Eosinophils % (A) 2 %; HCT 40.3 % (34.0-46.0); HGB 12.5 gm/dL (11.4-16.0); Hypochromasia Slight; Lymphocytes # (A) 0.8 k/uL (1.0-4.8); Lymphocytes % (A) 15 %; MCH 30.1 pg (25.0-35.0); MCV 96.9 fL (80.0-100.0); Macrocytosis Slight; Mean Platelet Volume 7.9; Monocytes # (A) 0.2 k/uL (0-1.0); Monocytes % (A) 4 %; Neutrophils # (A) 4.1 k/uL (1.3-7.7); Neutrophils % (A) 78 %; Platelet Count 218 k/uL (150-450); RBC 4.16 m/uL (3.80-5.40); RDW 16.6 % (11.5-15.5); WBC 5.3 k/uL (3.8-10.6)
[2021-11-14 13:32] LABS: ALT 11 U/L (4-34); AST 21 U/L (14-36); African American GFR (CKD) 31 (>60 ml/min/1.73 sqM); Albumin/Globulin Ratio 1.4; Alkaline Phosphatase 82 U/L (38-126); Anion Gap 10 mmol/L; Blood Urea Nitrogen 18 mg/dL (7-17); Calcium 9.5 mg/dL (8.4-10.2); Carbon Dioxide 26 mmol/L (22-30); Chloride 105 mmol/L (98-107); Globulin 2.8 g/dL; Glucose 139 mg/dL (74-99); Non-African American GFR(CKD) 27 (>60 ml/min/1.73 sqM); Potassium 3.9 mmol/L (3.5-5.1); Sodium 141 mmol/L (137-145); Total Bilirubin 2.3 mg/dL (0.2-1.3); Total Protein 6.8 g/dL (6.3-8.2)
[2021-11-14] MEDS: ENOXAPARIN 30 MG/0.3 ML SYRINGE SQ SCH (16:11)
--- NOTE | 2021-11-14 17:01 | P.CONS ---
History of Present Illness - Reason for Consult Consult date: 11/14/21 Concern of Malignancy Requesting physician: Ainsley Fulton - History of Present Illness We have been asked to see Carli after colonoscopy was attempted but inability to advance during procedure, patient has a history of endometrial cancer. CT abdomen was concerning for hydronephrosis and adenopathy (per versbal with surg)which could be related to a metastatic malignancy therefore we have been a sked to further evaluate. Unfortunetly unable to perform further evaluation with biopsy, she is rather stable at this time. She denies evidence of obstruction, despite inability to advance scope. Would recommend further evaluation with [facility] Onc - Dr. Adnerson and General Surgery for possible laparoscopy as if abdominal adenopathynnay be best approach at biopsy Review of Systems All systems: negative Constitutional: Reports as per HPI Past Medical History Past Medical History: Atrial Fibrillation, Cancer, CVA/TIA, Hyperlipidemia, Myocardial Infarction ([place]) Additional Past Medical History / Comment(s): 07/27/17 FALL'LT HIP FX. 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 History of COVID-19 Last Myocardial Infarction Date:: 2009 History of Any Multi-Drug Resistant Organisms: None Reported Past Surgical History: Heart Catheterization, Orthopedic Surgery, Tonsillectomy Additional Past Surgical History / Comment(s): ORIF RT ANKLE HAS PLATE. Past Anesthesia/Blood Transfusion Reactions: No Reported Reaction Past Psychological History: No Psychological Hx Reported Smoking Status: Never smoker Past Alcohol Use History: None Reported Past Drug Use History: None Reported - Past Family History Mother Family Medical History: No Reported History Additional Family Medical History / Comment(s): FROM ANUERYSM Father Family Medical History: No Reported History Medications and Allergies Home Medications Medication Instructions Recorded Confirmed Type Apixaban [Eliquis] 5 mg PO BID #60 tab 09/02/18 11/07/21 Rx Albuterol Inhaler [Ventolin Hfa 2 puff INHALATION RT-Q4H PRN 10/19/21 11/07/21 History Inhaler] Furosemide [Lasix] 20 mg PO DIRECTED 10/19/21 11/07/21 History Metoprolol Tartrate [Lopressor] 100 mg PO TID 10/19/21 11/07/21 History Allergies Allergy/AdvReac Type Severity Reaction Status Date / Time No Known Allergies Allergy Verified 11/07/21 07:50 Physical Exam Vitals: Vital Signs Temp Pulse Resp BP Pulse Ox 11/14/21 08:33 97.8 F 75 19 133/92 96 11/14/21 02:00 98.0 F 72 16 144/78 94 L 11/13/21 19:37 97.5 F L 84 16 114/85 94 L 11/13/21 14:00 97.8 F 90 18 130/80 95 Intake and Output 11/13/21 11/14/21 11/14/21 22:59 06:59 14:59 Other: # Voids 2 1 Weight 90.718 kg - Constitutional General appearance: cooperative, no acute distress - EENT Eyes: EOMI ENT: hard of hearing, NA/AT - Neck Neck: normal ROM - Respiratory Respiratory: bilateral: diminished - Cardiovascular Rhythm: regularly irregular - Gastrointestinal General gastrointestinal: tenderness - Integumentary Integumentary: pale - Musculoskeletal Musculoskeletal: generalized weakness Results CBC & Chem 7: 11/14/21 12:54 11/14/21 12:54 CT scan - abdomen: report reviewed Assessment and Plan (1) GI bleeding Current Visit: Yes Status: Acute Code(s): K92.2 - GASTROINTESTINAL HEMORRHAGE, UNSPECIFIED SNOMED Code(s): 32578875 (2) Afib Current Visit: No Status: Acute Code(s): I48.91 - UNSPECIFIED ATRIAL FIBRILLATION SNOMED Code(s): 13374110 (3) History of endometrial cancer Current Visit: No Status: Acute Code(s): Z85.42 - PERSONAL HISTORY OF MALIGNANT NEOPLASM OF OTH PRT UTERUS SNOMED Code(s): 115148185 (4) Hydronephrosis Current Visit: No Status: Acute Priority: High Code(s): N13.30 - UNSPECIFIED HYDRONEPHROSIS SNOMED Code(s): 73894105 Plan: If a metastatic cancer picture is suspected a tissue biopsy will be needed. If the increased areas of adenopathy are not accessible an intravaginal ultrasound could be ordered to further assess for possible tissue. Repeat cbc stable Would recommend further evaluation with [facility] Onc - Dr. Anderson and General Surgery for possible laparoscopy as if abdominal adenopathynnay be best approach at biopsy Dr. Banerjee: I have completed the full history and physical and devloped the full impression and plan, agree with dictation dictated as a ascribe Discussed with primary team
--- NOTE | 2021-11-14 17:16 | P.PN ---
Progress Note - Text Progress Note Date: 11/14/21 This is a 76-year-old patient, follows with Dr. Maddox. Chronic stable medical conditions include atrial fibrillation, congestive heart failure EF 35%, hyperlipidemia, CAD, hypertension. Normally uses a recheck to get about. Able to transfer herself. In 2018 patient was followed up at [facility] where she was diagnosed with adenocarcinoma of the uterus. Patient did receive several radiation treatment. According the patient nobody called her to follow up and she was lost to follow- up accordingly. Patient recently discharged on October 22. Seen by urology Dr. Rocha. Possibility of ureterall stent on the right site. - outpatient. Patient to follow-up with [facility] oncology outpatient. As arranged by oncology team here. Patient now presents with bright red blood per rectum. Significant amount of blood clots. November 11: I assumed care of patient today. Saw the patient this morning. Pending endoscopy. No further bleeding. No abdominal pain. Later this afternoon patient underwent coloscopy incomplete because of extreme tortuosity Dr. Avila could not go beyond the sigmoid colon. He ordered a barium enema. Clear liquid started November 12: Supple the patient earlier today. Pending barium enema. Discussed with Dr. Avila. If unremarkable to resume diet. Later barium enema showed suspicious stenosis in the distal sigmoid colon. Repeat water-soluble contrast study recommended November 13: Oncology consulted because of enema results. Other medications to continue. Clear liquid diet. Contrast enema was tried today. Unsuccessful. November 14: Spoke to Dr. Avila. No biopsy from his standpoint. We will await further input from oncology in terms of biopsy as outpatient. Active Medications Acetaminophen (Acetaminophen Tab 325 Mg Tab) 650 mg PO Q6HR PRN PRN Reason: Mild Pain or Fever > 100.5 Last Admin: 11/12/21 17:10 Dose: 650 mg Albuterol Sulfate (Albuterol Nebulized 2.5 Mg/3 Ml) 2.5 mg INHALATION RT-Q4H PRN PRN Reason: Shortness Of Breath Enoxaparin Sodium (Enoxaparin 30 Mg/0.3 Ml Syringe) 30 mg SQ Q24H [facility] Last Admin: 11/14/21 16:11 Dose: 30 mg Sodium Chloride (Saline 0.9%) 1,000 mls @ 75 mls/hr IV .[id number] [facility] Last Admin: 11/14/21 08:50 Dose: Not Given Metoprolol Tartrate (Metoprolol Tartrate 50 Mg Tab) 100 mg PO TID [facility] Last Admin: 11/14/21 15:33 Dose: 100 mg Naloxone HCl (Naloxone 0.4 Mg/Ml 1 Ml Vial) 0.2 mg IV Q2M PRN PRN Reason: Opioid Reversal Pantoprazole Sodium (Pantoprazole 40 Mg Tablet) 40 mg PO AC-BRKFST [facility] Last Admin: 11/14/21 08:46 Dose: 40 mg Past medical history to include: Stroke, atrial fibrillation, hyperlipidemia, CAD with stent, CHF with EF of 35, hyperlipidemia, CK D Social history: Lives alone. No alcohol. Patient smoked for 53 years 1 pack a day stopped in 2011 Family history: Aneurysm Physical examination: VITAL SIGNS: 97.5, 61, 20, 143.95, 98% room air GENERAL: laying in bed awake, comfortable EYES: Pupils equal. Conjunctiva normal. HEENT: External appearance of nose and ears normal, oral cavity grossly normal. NECK: JVD not raised; masses not palpable. HEART: First and second heart sounds are normal; no edema. LUNGS: Respiratory rate normal; clear to auscultation. ABDOMEN: Soft, nontender, liver spleen not palpable, no masses palpable. PSYCH: Alert and oriented x3; mood and affect normal. MUSCULOSKELETAL:No Clubbing/cyanosis;muscles-grossly intact. OA INVESTIGATIONS, reviewed in the clinical context: Barium enema: Stenosis sigmoid colon. White count 6.4 hemoglobin 10.6 platelets 233 potassium 4.2 creatinine 2.0 Previous studies: CT abdomen pelvis without contrast: Atelectasis. Moderate cardiomegaly. Dilated gallbladder with multiple gallstones. Dilated endometrial cavity. Sigmoid diverticulosis. Moderately severe right-sided hydronephrosis and hydroureter. 2-D echocardiogram: [May 2021]: Moderate concentric LVH. EF 50-60%.. Creatinine 1.5 in June 2021 Assessment and plan: -Acute lower GI. bleed Unsuccessful colonoscopy - Due to a tortuous colon. Barium enema showing sigmoid colon stenosis. -Colonic stenotic mass Problem biopsy as directed per oncology. -Severe colonic diverticulosis Could be the possible source of bleeding -Recent vaginal bleeding in a patient with known uterine adenocarcinoma. 4. Patient did receive radiation treatment 2018. Apparently patient was lost to follow-up. Patient to follow-up [facility] oncology at [facility]. -Chronic kidney disease stage III likely nephrosclerosis Creatinine 1.5 in July 05 -Chronic congestive heart failure from diastolic dysfunction EF 55-60 % Follow clinically. -CAD with a history of stent Lopressor 100 mg 3 times a day -Persistent atrial fibrillation, rate controlled Lopressor 100 mg 3 times a day Eliquis 5 mg twice a day-resumed tonight -Choledocholithiasis, asymptomatic -Sigmoid diverticulosis, asymptomatic -Moderate right-sided hydronephrosis and hydroureter Seen by Dr. Simmons from urology. intervention as outpatient Continue current medications. Follow up as arranged per oncology. Was due for follow-up with [facility] oncology at [facility].
[2021-11-15] MEDS: PANTOPRAZOLE 40 MG TABLET PO SCH (07:46)
[2021-11-15] MEDS: METOPROLOL TARTRATE 50 MG TAB PO SCH (07:46)
[2021-11-15 14:48] VITALS: BP 131/64; PULSE 85; RESP 18; TEMP 97.6
--- NOTE | 2021-11-16 15:13 | P.DS ---
Providers Date of admission: 11/07/21 15:10 Expected date of discharge: 11/15/21 Attending physician: Biju Sanabria Consults: 11/07/21 06:44 Consult Physician Routine Consulting Provider: Drake Escobar Consult Reason/Comments: GI Bleeding Do you want consulting provider notified?: Yes 11/13/21 12:41 Consult Physician Routine Consulting Provider: [place] Consult Reason/Comments: tracy-rectal peritoneal deposit suspected metastatic disease Do you want consulting provider notified?: Yes Primary care physician: [facility] Course: This is a 76-year-old patient, follows with Dr. Maddox. Chronic stable medical conditions include atrial fibrillation, congestive heart failure EF 35%, hyperlipidemia, CAD, hypertension. Normally uses a recheck to get about. Able to transfer herself. In 2018 patient was followed up at [facility] where she was diagnosed with adenocarcinoma of the uterus. Patient did receive several radiation treatment. According the patient nobody called her to follow up and she was lost to follow- up accordingly. Patient recently discharged on October 22. Seen by urology Dr. Rocha. Possibility of ureterall stent on the right site. - outpatient. Patient to follow-up with [facility] oncology outpatient. As arranged by oncology team here. Patient now presents with bright red blood per rectum. Significant amount of blood clots. November 11: I assumed care of patient today. Saw the patient this morning. Pending endoscopy. No further bleeding. No abdominal pain. Later this afternoon patient underwent coloscopy incomplete because of extreme tortuosity Dr. Avila could not go beyond the sigmoid colon. He ordered a barium enema. Clear liquid started November 12: Supple the patient earlier today. Pending barium enema. Discussed with Dr. Avila. If unremarkable to resume diet. Later barium enema showed suspicious stenosis in the distal sigmoid colon. Repeat water-soluble contrast study recommended November 13: Oncology consulted because of enema results. Other medications to continue. Clear liquid diet. Contrast enema was tried today. Unsuccessful. November 14: Spoke to Dr. Avila. No biopsy from his standpoint. We will await dio chavarria input from oncology in terms of biopsy as outpatient. November 15: Patient will follow-up with oncology- gynecology as well as by our oncologist. Patient is informed. No discharge. Past medical history to include: Stroke, atrial fibrillation, hyperlipidemia, CAD with stent, CHF with EF of 35, hyperlipidemia, CK D Social history: Lives alone. No alcohol. Patient smoked for 53 years 1 pack a day stopped in 2011 Family history: Aneurysm Physical examination: VITAL SIGNS: 97.6, 95, 80/64, 95% room air GENERAL: laying in bed awake, comfortable EYES: Pupils equal. Conjunctiva normal. HEENT: External appearance of nose and ears normal, oral cavity grossly normal. NECK: JVD not raised; masses not palpable. HEART: First and second heart sounds are normal; no edema. LUNGS: Respiratory rate normal; clear to auscultation. ABDOMEN: Soft, nontender, liver spleen not palpable, no masses palpable. PSYCH: Alert and oriented x3; mood and affect normal. MUSCULOSKELETAL:No Clubbing/cyanosis;muscles-grossly intact. OA INVESTIGATIONS, reviewed in the clinical context: Barium enema: Stenosis sigmoid colon. White count 6.4 hemoglobin 10.6 platelets 233 potassium 4.2 creatinine 2.0 Previous studies: CT abdomen pelvis without contrast: Atelectasis. Moderate cardiomegaly. Dilated gallbladder with multiple gallstones. Dilated endometrial cavity. Sigmoid diverticulosis. Moderately severe right-sided hydronephrosis and hydroureter. 2-D echocardiogram: [May 2021]: Moderate concentric LVH. EF 50-60%.. Creatinine 1.5 in June 2021 Assessment and plan: -Acute lower GI. bleed Unsuccessful colonoscopy - Due to a tortuous colon. Barium enema showing sigmoid colon stenosis. -Colonic stenotic mass Outpatient biopsy by , from [facility] coordinated by our oncologist -Severe colonic diverticulosis Could be the possible source of bleeding -Recent vaginal bleeding in a patient with known uterine adenocarcinoma. 4. Patient did receive radiation treatment 2018. Apparently patient was lost to follow-up. Patient to follow-up [facility] oncology at [facility]. -Chronic kidney disease stage III likely nephrosclerosis Creatinine 1.5 in July 05 -Chronic congestive heart failure from diastolic dysfunction EF 55-60 % Follow clinically. -CAD with a history of stent Lopressor 100 mg 3 times a day -Persistent atrial fibrillation, rate controlled Lopressor 100 mg 3 times a day Eliquis 5 mg twice a day-resumed tonight -Choledocholithiasis, asymptomatic -Sigmoid diverticulosis, asymptomatic -Moderate right-sided hydronephrosis and hydroureter Outpatient intervention follow-up Dr. Simmons from urology. Disposition: Home Plan - Discharge Summary New Discharge Prescriptions: New Pantoprazole [Protonix] 40 mg PO AC-BRKFST #30 tab Continue Apixaban [Eliquis] 5 mg PO BID #60 tab Metoprolol Tartrate [Lopressor] 100 mg PO TID Furosemide [Lasix] 20 mg PO DIRECTED Albuterol Inhaler [Ventolin Hfa Inhaler] 2 puff INHALATION RT-Q4H PRN PRN Reason: Shortness Of Breath Discharge Medication List Apixaban [Eliquis] 5 mg PO BID #60 tab 09/02/18 [Rx] Albuterol Inhaler [Ventolin Hfa Inhaler] 2 puff INHALATION RT-Q4H PRN 10/19/21 [History] Furosemide [Lasix] 20 mg PO DIRECTED 10/19/21 [History] Metoprolol Tartrate [Lopressor] 100 mg PO TID 10/19/21 [History] Pantoprazole [Protonix] 40 mg PO AC-BRKFST #30 tab 11/15/21 [Rx] Follow up Appointment(s)/Referral(s): dr Justin [Other] - 1 Week (Please call Wednesday to schedule appointment) Dada Maddox DO [Primary Care Provider] - 1-2 days (office closed at time of discharge. Please call to schedule appointment on Wednesday) Patient Instructions/Handouts: Gastrointestinal Bleeding (DC) Activity/Diet/Wound Care/Special Instructions: Follow-up in [facility] oncology Dr. Anderson as per our oncology team. Discharge Disposition: HOME SELF-CARE
== END 2021-11-15 15:12 | disposition home or self-care (01) | DRG 378 ==
LOC: EC 20:31 → 6NMEDSUR 11-07 06:43 → OBSVTOIN 11-07 15:10 → 4SSUR 11-07 16:25
PROVIDERS: ADMIT Hospitalist; ATTEND Hospitalist
PROC: 0DJD8ZZ Inspection of Lower Intestinal Tract, Via Natural or Artificial Opening Endoscopic (ICD-10-PCS; principal; 2021-11-11 07:30)
DX: K57.31 Diverticulosis of large intestine without perforation or abscess with bleeding (principal); D62 Acute posthemorrhagic anemia; I13.0 Hypertensive heart and chronic kidney disease with heart failure and stage 1 through stage 4 chronic kidney disease, or unspecified chronic kidney disease; I48.19 Other persistent atrial fibrillation; I50.32 Chronic diastolic (congestive) heart failure; N13.30 Unspecified hydronephrosis; K56.699 Other intestinal obstruction unspecified as to partial versus complete obstruction; C77.9 Secondary and unspecified malignant neoplasm of lymph node, unspecified; C79.89 Secondary malignant neoplasm of other specified sites; J98.11 Atelectasis; K63.89 Other specified diseases of intestine; N93.9 Abnormal uterine and vaginal bleeding, unspecified; E78.5 Hyperlipidemia, unspecified; I25.10 Atherosclerotic heart disease of native coronary artery without angina pectoris; N18.30 Chronic kidney disease, stage 3 unspecified; K80.50 Calculus of bile duct without cholangitis or cholecystitis without obstruction; R73.03 Prediabetes; Z28.310 Unvaccinated for COVID-19; I25.2 Old myocardial infarction; Z79.01 Long term (current) use of anticoagulants; Z85.42 Personal history of malignant neoplasm of other parts of uterus; Z95.5 Presence of coronary angioplasty implant and graft; Z86.73 Personal history of transient ischemic attack (TIA), and cerebral infarction without residual deficits; Z79.899 Other long term (current) drug therapy; Z85.41 Personal history of malignant neoplasm of cervix uteri; Z86.16 Personal history of COVID-19; Z87.891 Personal history of nicotine dependence; Z92.3 Personal history of irradiation; Z91.81 History of falling; Z79.51 Long term (current) use of inhaled steroids; Z87.81 Personal history of (healed) traumatic fracture; Z98.890 Other specified postprocedural states; Z90.89 Acquired absence of other organs; Z82.49 Family history of ischemic heart disease and other diseases of the circulatory system
CPT/HCPCS: 36415; 45330; 74270; 74280; 80048; 80053; 82272; 83735; 84484; 85025; 85027; 85730; 96360; 96361; 99285

== ENCOUNTER 2021-12-05 21:38 | Inpatient (IN) | payer MEDICARE, OTHER ==
[2021-12-05] MEDS ORDERED: SODIUM CHLORIDE 0.9% 500 ML 500 ML IV STA (22:38)
[2021-12-05 23:39] LABS: Basophils % (A) 1 %; Eosinophils # (A) 0.2 k/uL (0-0.7); Eosinophils % (A) 4 %; HCT 35.9 % (34.0-46.0); HGB 11.4 gm/dL (11.4-16.0); Hypochromasia Slight; Lymphocytes # (A) 1.1 k/uL (1.0-4.8); Lymphocytes % (A) 18 %; MCH 30.8 pg (25.0-35.0); MCHC 31.8 g/dL (31.0-37.0); MCV 96.8 fL (80.0-100.0); Mean Platelet Volume 7.6; Monocytes # (A) 0.5 k/uL (0-1.0); Monocytes % (A) 8 %; Neutrophils # (A) 4.3 k/uL (1.3-7.7); Neutrophils % (A) 69 %; Platelet Count 278 k/uL (150-450); RBC 3.71 m/uL (3.80-5.40); RDW 14.7 % (11.5-15.5); WBC 6.3 k/uL (3.8-10.6)
[2021-12-05 23:46] LABS: Partial Thromboplastin Time 25.1 sec (22.0-30.0); Prothrombin Time 10.9 sec (9.0-12.0)
[2021-12-05 23:52] LABS: Albumin 3.7 g/dL (3.5-5.0); Calcium 9.5 mg/dL (8.4-10.2); Magnesium 2.1 mg/dL (1.6-2.3); Phosphorus 4.3 mg/dL (2.5-4.5); Total Bilirubin 0.8 mg/dL (0.2-1.3); Total Protein 6.4 g/dL (6.3-8.2)
[2021-12-06 02:17] LABS: Appearance,Urine Bloody (Clear); Color,Urine Red
[2021-12-06 02:23] LABS: RBC,Urine >182 /hpf (0-5); WBC,Urine 100 /hpf (0-5)
--- NOTE | 2021-12-06 05:23 | CT ---
EXAM: CT Abdomen and Pelvis Without Intravenous Contrast CLINICAL HISTORY: ITS.REASON CT Reason: diffuse abdominal pain TECHNIQUE: Axial computed tomography images of the abdomen and pelvis without intravenous contrast. CTDI is 15.7 mGy and DLP is 841.6 mGy-cm. This CT exam was performed using one or more of the following dose reduction techniques: automated exposure control, adjustment of the mA and/or kV according to patient size, and/or use of iterative reconstruction technique. COMPARISON: 11/18/2020 FINDINGS: Lung bases: No mass. No consolidation. Cardiomegaly. ABDOMEN: Liver: Unremarkable. Gallbladder and bile ducts: Distended gallbladder with multiple stones. Pancreas: No ductal dilation. Spleen: Unremarkable. Adrenals: 3.8 cm left adrenal gland mass again seen. Kidneys and ureters: No obstructing stones. Moderate to severe right hydroureteronephrosis with no definite obstructive process identified. Multiple cysts. Stomach and bowel: No bowel obstruction. No bowel wall thickening. Colonic diverticulosis. PELVIS: Appendix: No evidence of appendicitis. Bladder: No stones. Reproductive: Fibroid uterus. ABDOMEN and PELVIS: Intraperitoneal space: Unremarkable. Bones/joints: No acute fractures. Left total hip arthroplasty hardware. Soft tissues: Unremarkable. Vasculature: No abdominal aortic aneurysm. Lymph nodes: No enlarged lymph nodes. IMPRESSION: 1. Moderate to severe right hydroureteronephrosis with no definite obstructive process identified. Worsened from prior exam. 2. Distended gallbladder with multiple stones. 3. Left adrenal gland mass unchanged. 4. Colonic diverticulosis.
[2021-12-06] MEDS ORDERED: ONDANSETRON 4 MG/2 ML VIAL IVP PRN (05:58)
[2021-12-06] MEDS ORDERED: MORPHINE SULFATE 4 MG/ML SYRINGE IV PRN (05:58)
[2021-12-06] MEDS ORDERED: NALOXONE 0.4 MG/ML 1 ML VIAL IV PRN (05:58)
[2021-12-06] MEDS: SODIUM CHLORIDE 0.9% 1,000 ML IV SCH ×2 (06:53→20:40)
--- NOTE | 2021-12-06 07:37 | ED ---
Abdominal Pain HPI - General Chief Complaint: GI Bleed Stated Complaint: Blood in stool Time Seen by Provider: 12/05/21 22:53 Source: patient Mode of arrival: wheelchair Limitations: physical limitation - History of Present Illness Initial Comments: This patient is a 76-year-old woman who presents with complaints of having abdominal pains and also of having passed an episode of dark blood with bowel movement. The patient had been in for similar complaint and was cleared, she states she was told to continue taking her L Aquinas. She did have recurrence of symptoms tonight. In addition she is having some flank and lower abdominal pain that is been going on. MD Complaint: abdominal pain, other -: hour(s) Location: RLQ, R flank Radiation: none Migration to: no migration Severity: moderate Quality: aching Consistency: colicky Improves With: nothing Worsens With: nothing - Related Data Home Medications Medication Instructions Recorded Confirmed Albuterol Inhaler [Ventolin Hfa 2 puff INHALATION RT-Q4H PRN 10/19/21 12/06/21 Inhaler] Furosemide [Lasix] 20 mg PO DAILY PRN 10/19/21 12/06/21 Metoprolol Tartrate [Lopressor] 100 mg PO TID 10/19/21 12/06/21 Previous Rx's Medication Instructions Recorded Apixaban [Eliquis] 5 mg PO BID #60 tab 09/02/18 Allergies Allergy/AdvReac Type Severity Reaction Status Date / Time No Known Allergies Allergy Verified 12/06/21 11:52 Review of Systems ROS Statement: Those systems with pertinent positive or pertinent negative responses have been documented in the HPI. ROS Other: All systems not noted in ROS Statement are negative. Constitutional: Denies: fever, chills, weakness Respiratory: Denies: cough, dyspnea Cardiovascular: Denies: chest pain, palpitations Gastrointestinal: Reports: as per HPI, abdominal pain, constipation. Denies: nausea, vomiting, diarrhea, hematemesis Past Medical History Past Medical History: Atrial Fibrillation, Cancer, CVA/TIA, GI Bleed, Hyperlipidemia, Myocardial Infarction ([place]) Additional Past Medical History / Comment(s): 07/27/17 FALL'LT HIP FX. 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 History of COVID-19 Last Myocardial Infarction Date:: 2009 History of Any Multi-Drug Resistant Organisms: None Reported Past Surgical History: Heart Catheterization, Orthopedic Surgery, Tonsillectomy Additional Past Surgical History / Comment(s): ORIF RT ANKLE HAS PLATE. Past Anesthesia/Blood Transfusion Reactions: No Reported Reaction Past Psychological History: No Psychological Hx Reported Smoking Status: Never smoker Past Alcohol Use History: None Reported Past Drug Use History: None Reported - Past Family History Mother Family Medical History: No Reported History Additional Family Medical History / Comment(s): FROM ANUERYSM Father Family Medical History: No Reported History General Exam Limitations: physical limitation General appearance: alert, in no apparent distress Head exam: Present: atraumatic, normocephalic Eye exam: Present: normal appearance. Absent: scleral icterus, conjunctival injection Neck exam: Present: normal inspection Respiratory exam: Present: normal lung sounds bilaterally, wheezes, rales, rhonchi, stridor. Absent: respiratory distress Cardiovascular Exam: Present: regular rate, normal rhythm, normal heart sounds. Absent: systolic murmur, diastolic murmur, rubs, gallop GI/Abdominal exam: Present: soft. Absent: distended, tenderness, guarding, rebound, rigid, mass, pulsatile mass Extremities exam: Present: normal inspection, normal capillary refill. Absent: pedal edema, calf tenderness Back exam: Present: normal inspection, CVA tenderness (R). Absent: CVA tenderness (L) Neurological exam: Present: alert Skin exam: Present: warm, dry, intact, normal color. Absent: rash Course Vital Signs 12/05/21 12/06/21 12/06/21 22:40 06:24 07:57 Temperature 96.9 F L Pulse Rate 118 H 87 91 Respiratory 20 16 18 Rate Blood Pressure 90/63 129/87 124/82 O2 Sat by Pulse 96 98 97 Oximetry Medical Decision Making - Medical Decision Making Patient 76-year-old woman here with abdominal pain and having had episode of GI bleeding. The patient found to have hydronephrosis without definite stone. We'll admit with urology consultation. Admitting service is paged. - Lab Data Result diagrams: 12/08/21 03:52 12/08/21 03:52 Lab Results 12/05/21 12/05/21 12/05/21 Range/Units 23:00 23:11 23:11 WBC 6.3 (3.8-10.6) k/uL RBC 3.71 L (3.80-5.40) m/uL Hgb 11.4 (11.4-16.0) gm/dL Hct 35.9 (34.0-46.0) % MCV 96.8 (80.0-100.0) fL MCH 30.8 (25.0-35.0) pg MCHC 31.8 (31.0-37.0) g/dL RDW 14.7 (11.5-15.5) % Plt Count 278 (150-450) k/uL MPV 7.6 Neutrophils % 69 % Lymphocytes % 18 % Monocytes % 8 % Eosinophils % 4 % Basophils % 1 % Neutrophils # 4.3 (1.3-7.7) k/uL Lymphocytes # 1.1 (1.0-4.8) k/uL Monocytes # 0.5 (0-1.0) k/uL Eosinophils # 0.2 (0-0.7) k/uL Basophils # 0.0 (0-0.2) k/uL Hypochromasia Slight PT 10.9 (9.0-12.0) sec INR 1.0 (<1.2) APTT 25.1 (22.0-30.0) sec Sodium (137-145) mmol/L Potassium (3.5-5.1) mmol/L Chloride (98-107) mmol/L Carbon Dioxide (22-30) mmol/L Anion Gap mmol/L BUN (7-17) mg/dL Creatinine (0.52-1.04) mg/dL Est GFR (CKD-EPI)AfAm (>60 ml/min/1.73 sqM) Est GFR (CKD-EPI)NonAf (>60 ml/min/1.73 sqM) Glucose (74-99) mg/dL Plasma Lactic Acid Austin 1.1 (0.7-2.0) mmol/L Calcium (8.4-10.2) mg/dL Phosphorus (2.5-4.5) mg/dL Magnesium (1.6-2.3) mg/dL Total Bilirubin (0.2-1.3) mg/dL AST (14-36) U/L ALT (4-34) U/L Alkaline Phosphatase (38-126) U/L Troponin I (0.000-0.034) ng/mL Total Protein (6.3-8.2) g/dL Albumin (3.5-5.0) g/dL Lipase (23-300) U/L Urine Color Urine Appearance (Clear) Urine RBC (0-5) /hpf Urine WBC (0-5) /hpf Blood Type Blood Type Recheck Bld Type Recheck Status Antibody Screen Spec Expiration Date 12/05/21 12/05/21 12/05/21 Range/Units 23:11 23:11 23:11 WBC (3.8-10.6) k/uL RBC (3.80-5.40) m/uL Hgb (11.4-16.0) gm/dL Hct (34.0-46.0) % MCV (80.0-100.0) fL MCH (25.0-35.0) pg MCHC (31.0-37.0) g/dL RDW (11.5-15.5) % Plt Count (150-450) k/uL MPV Neutrophils % % Lymphocytes % % Monocytes % % Eosinophils % % Basophils % % Neutrophils # (1.3-7.7) k/uL Lymphocytes # (1.0-4.8) k/uL Monocytes # (0-1.0) k/uL Eosinophils # (0-0.7) k/uL Basophils # (0-0.2) k/uL Hypochromasia PT (9.0-12.0) sec INR (<1.2) APTT (22.0-30.0) sec Sodium 140 (137-145) mmol/L Potassium 5.0 (3.5-5.1) mmol/L Chloride 106 (98-107) mmol/L Carbon Dioxide 23 (22-30) mmol/L Anion Gap 11 mmol/L BUN 48 H (7-17) mg/dL Creatinine 2.00 H (0.52-1.04) mg/dL Est GFR (CKD-EPI)AfAm 27 (>60 ml/min/1.73 sqM) Est GFR (CKD-EPI)NonAf 24 (>60 ml/min/1.73 sqM) Glucose 157 H (74-99) mg/dL Plasma Lactic Acid Austin (0.7-2.0) mmol/L Calcium 9.5 (8.4-10.2) mg/dL Phosphorus 4.3 (2.5-4.5) mg/dL Magnesium 2.1 (1.6-2.3) mg/dL Total Bilirubin 0.8 (0.2-1.3) mg/dL AST 19 (14-36) U/L ALT 9 (4-34) U/L Alkaline Phosphatase 74 (38-126) U/L Troponin I 0.012 (0.000-0.034) ng/mL Total Protein 6.4 (6.3-8.2) g/dL Albumin 3.7 (3.5-5.0) g/dL Lipase 122 (23-300) U/L Urine Color Urine Appearance (Clear) Urine RBC (0-5) /hpf Urine WBC (0-5) /hpf Blood Type A Positive Blood Type Recheck A Pos Bld Type Recheck Status No Antibody Screen NEGATIVE Spec Expiration Date 12/08/2021 - 231012/06/21 Range/Units 01:57 WBC (3.8-10.6) k/uL RBC (3.80-5.40) m/uL Hgb (11.4-16.0) gm/dL Hct (34.0-46.0) % MCV (80.0-100.0) fL MCH (25.0-35.0) pg MCHC (31.0-37.0) g/dL RDW (11.5-15.5) % Plt Count (150-450) k/uL MPV Neutrophils % % Lymphocytes % % Monocytes % % Eosinophils % % Basophils % % Neutrophils # (1.3-7.7) k/uL Lymphocytes # (1.0-4.8) k/uL Monocytes # (0-1.0) k/uL Eosinophils # (0-0.7) k/uL Basophils # (0-0.2) k/uL Hypochromasia PT (9.0-12.0) sec INR (<1.2) APTT (22.0-30.0) sec Sodium (137-145) mmol/L Potassium (3.5-5.1) mmol/L Chloride (98-107) mmol/L Carbon Dioxide (22-30) mmol/L Anion Gap mmol/L BUN (7-17) mg/dL Creatinine (0.52-1.04) mg/dL Est GFR (CKD-EPI)AfAm (>60 ml/min/1.73 sqM) Est GFR (CKD-EPI)NonAf (>60 ml/min/1.73 sqM) Glucose (74-99) mg/dL Plasma Lactic Acid Austin (0.7-2.0) mmol/L Calcium (8.4-10.2) mg/dL Phosphorus (2.5-4.5) mg/dL Magnesium (1.6-2.3) mg/dL Total Bilirubin (0.2-1.3) mg/dL AST (14-36) U/L ALT (4-34) U/L Alkaline Phosphatase (38-126) U/L Troponin I (0.000-0.034) ng/mL Total Protein (6.3-8.2) g/dL Albumin (3.5-5.0) g/dL Lipase (23-300) U/L Urine Color Red Urine Appearance Bloody H (Clear) Urine RBC >182 H (0-5) /hpf Urine WBC 100 H (0-5) /hpf Blood Type Blood Type Recheck Bld Type Recheck Status Antibody Screen Spec Expiration Date Disposition Clinical Impression: Hydronephrosis, Abdominal pain Disposition: ADMITTED IP TO THIS [facility] Condition: Fair
[2021-12-06] MEDS: PANTOPRAZOLE 40 MG/10 ML VIAL IVP SCH (09:14)
[2021-12-06] MEDS: METOPROLOL TARTRATE 50 MG TAB PO SCH ×2 (09:14→21:18)
--- NOTE | 2021-12-06 09:29 | US ---
EXAMINATION TYPE: US liver DATE OF EXAM: 12/06/2021 COMPARISON: CT today CLINICAL HISTORY: Gallbladder disease, stone. Abd pain x [address] showed hydropic GB with gallsto cindy EXAM MEASUREMENTS: Liver Length: 15.0 cm Gallbladder Wall: 0.13 cm CBD: 0.49 cm Right Kidney: 10.8 x 4.8 x 3.5 cm Pancreas: Tail obscured by overlying bowel gas Liver: wnl Gallbladder: Hydropic GB measuring 12.6 cm with multiple gallstones Evidence for sonographic Perea's sign: No CBD: wnl Right Kidney: Severe hydronephrosis seen measuring 4.2 cm IMPRESSION: 1. Gallbladder hydrops with cholelithiasis. 2. Severe right-sided hydronephrosis.
--- NOTE | 2021-12-06 10:41 | P.GSCN ---
History of Present Illness Consult date: 12/06/21 Reason for Consult: GI bleed, gallstones History of present illness: This a 76-year-old female who was admitted through the emergency room complaints of abdominal pain GI bleed. The patient states she's not had any further GI bleeding since admission hospital. She does have some mild diffuse pain. Her CAT scan was noted to have evidence of cholelithiasis. Past Medical History Past Medical History: Atrial Fibrillation, Cancer, CVA/TIA, GI Bleed, Hyperlipidemia, Myocardial Infarction ([place]) Additional Past Medical History / Comment(s): 07/27/17 FALL'[place] HIP FX. 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 History of COVID-19 Last Myocardial Infarction Date:: 2009 History of Any Multi-Drug Resistant Organisms: None Reported Past Surgical History: Heart Catheterization, Orthopedic Surgery, Tonsillectomy Additional Past Surgical History / Comment(s): ORIF RT ANKLE HAS PLATE. Past Anesthesia/Blood Transfusion Reactions: No Reported Reaction Past Psychological History: No Psychological Hx Reported Smoking Status: Never smoker Past Alcohol Use History: None Reported Past Drug Use History: None Reported - Past Family History Mother Family Medical History: No Reported History Additional Family Medical History / Comment(s): FROM ANUERYSM Father Family Medical History: No Reported History Medications and Allergies Home Medications Medication Instructions Recorded Confirmed Type Apixaban [Eliquis] 5 mg PO BID #60 tab 09/02/18 11/07/21 Rx Albuterol Inhaler [Ventolin Hfa 2 puff INHALATION RT-Q4H PRN 10/19/21 11/07/21 History Inhaler] Furosemide [Lasix] 20 mg PO DIRECTED 10/19/21 11/07/21 History Metoprolol Tartrate [Lopressor] 100 mg PO TID 10/19/21 11/07/21 History Pantoprazole [Protonix] 40 mg PO AC-BRKFST #30 tab 11/15/21 Rx Allergies Allergy/AdvReac Type Severity Reaction Status Date / Time No Known Allergies Allergy Verified 12/05/21 22:39 Surgical - Exam Vital Signs Temp Pulse Resp BP Pulse Ox 96.9 F L 118 H 20 90/63 96 12/05/21 22:40 12/05/21 22:40 12/05/21 22:40 12/05/21 22:40 12/05/21 22:40 - General well developed, well nourished, no distress - Eyes PERRL - ENT normal pinna - Neck no masses, no bruits - Respiratory normal expansion - Cardiovascular Rhythm: regular - Abdomen Abdomen: soft, non tender Results - Labs 12/05/21 23:11 12/05/21 23:11 Abnormal Lab Results - Last 24 Hours (Table) 12/05/21 12/05/21 12/06/21 Range/Units 23:11 23:11 01:57 RBC 3.71 L (3.80-5.40) m/uL BUN 48 H (7-17) mg/dL Creatinine 2.00 H (0.52-1.04) mg/dL Glucose 157 H (74-99) mg/dL Urine Appearance Bloody H (Clear) Urine RBC >182 H (0-5) /hpf Urine WBC 100 H (0-5) /hpf Diabetes panel 12/05/21 Range/Units 23:11 Sodium 140 (137-145) mmol/L Potassium 5.0 (3.5-5.1) mmol/L Chloride 106 (98-107) mmol/L Carbon Dioxide 23 (22-30) mmol/L BUN 48 H (7-17) mg/dL Creatinine 2.00 H (0.52-1.04) mg/dL Glucose 157 H (74-99) mg/dL Calcium 9.5 (8.4-10.2) mg/dL AST 19 (14-36) U/L ALT 9 (4-34) U/L Alkaline Phosphatase 74 (38-126) U/L Total Protein 6.4 (6.3-8.2) g/dL Albumin 3.7 (3.5-5.0) g/dL Calcium panel 12/05/21 Range/Units 23:11 Calcium 9.5 (8.4-10.2) mg/dL Phosphorus 4.3 (2.5-4.5) mg/dL Albumin 3.7 (3.5-5.0) g/dL Pituitary panel 12/05/21 Range/Units 23:11 Sodium 140 (137-145) mmol/L Potassium 5.0 (3.5-5.1) mmol/L Chloride 106 (98-107) mmol/L Carbon Dioxide 23 (22-30) mmol/L BUN 48 H (7-17) mg/dL Creatinine 2.00 H (0.52-1.04) mg/dL Glucose 157 H (74-99) mg/dL Calcium 9.5 (8.4-10.2) mg/dL Adrenal panel 12/05/21 Range/Units 23:11 Sodium 140 (137-145) mmol/L Potassium 5.0 (3.5-5.1) mmol/L Chloride 106 (98-107) mmol/L Carbon Dioxide 23 (22-30) mmol/L BUN 48 H (7-17) mg/dL Creatinine 2.00 H (0.52-1.04) mg/dL Glucose 157 H (74-99) mg/dL Calcium 9.5 (8.4-10.2) mg/dL Total Bilirubin 0.8 (0.2-1.3) mg/dL AST 19 (14-36) U/L ALT 9 (4-34) U/L Alkaline Phosphatase 74 (38-126) U/L Total Protein 6.4 (6.3-8.2) g/dL Albumin 3.7 (3.5-5.0) g/dL Assessment and Plan Assessment: History of GI bleed. Abdominal pain may be related to gallstones. Patient will be scheduled for EGD colonoscopy. On Wednesday.
--- NOTE | 2021-12-06 11:14 | P.HPIM ---
History of Present Illness This is a pleasant 76 years old female with past medical history of Atrial Fibrillation on Eliquis, CVA/TIA, GI Bleed, Hyperlipidemia, chronic GI bleed Presents because of abdominal pain, in the lower abdomen, patient states this pain has been going on for about a month, also for the last 3-4 days she's been having bleeding she thinks is up from her urine and vaginal opening, also there was suspicion of bleeding per rectum. She denies chest pain or dyspnea. No headache or dizziness. No dysuria. No diarrhea, she says her stool is hard. She denies smoking, alcohol or illicit drugs She was taking 2 pills of aspirin every day for the last few days because of her abdominal pain Also patient was on Eliquis for A. fib which is held now, I explained to the patient and she'll be at risk of stroke and she understands that. Patient hemodynamically stable, vitals are stable Hemoglobin is 11.4 which is within the reference range and INR is 1.0. Rest of CBC, INR is unremarkable. BNP is reviewed showing elevated creatinine at 2.0 CT of the abdomen and pelvis: Moderate to severe right hydronephrosis with no definite obstructive process. Distended gallbladder with multiple stones. Left adrenal gland mass, and change, colonic diverticulosis Review of Systems CONSTITUTIONAL: No fever, no malaise, no fatigue. HEENT: No recent visual problems or hearing problems. Denied any sore throat. CARDIOVASCULAR: No orthopnea, PND, no palpitations, no syncope. PULMONARY: No shortness of breath, no cough, no hemoptysis. GASTROINTESTINAL: No diarrhea, no nausea, no vomiting, no abdominal pain. Normoactive bowel sounds. NEUROLOGICAL: No headaches, no weakness, no numbness. HEMATOLOGICAL: Patient denies any bruits PETECHIAE, no enlarged lymph nodes GENITOURINARY: Denies any burning micturition, frequency, or urgency. MUSCULOSKELETAL/RHEUMATOLOGICAL: Denies any joint pain, swelling, or any muscle pain. ENDOCRINE: Denies any polyuria or polydipsia. Past Medical History Past Medical History: Atrial Fibrillation, Cancer, CVA/TIA, GI Bleed, Hyperlipidemia, Myocardial Infarction ([place]) Additional Past Medical History / Comment(s): 07/27/17 FALL'[place] HIP FX. 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 History of COVID-19 Last Myocardial Infarction Date:: 2009 History of Any Multi-Drug Resistant Organisms: None Reported Past Surgical History: Heart Catheterization, Orthopedic Surgery, Tonsillectomy Additional Past Surgical History / Comment(s): ORIF RT ANKLE HAS PLATE. Past Anesthesia/Blood Transfusion Reactions: No Reported Reaction Past Psychological History: No Psychological Hx Reported Smoking Status: Never smoker Past Alcohol Use History: None Reported Past Drug Use History: None Reported - Past Family History Mother Family Medical History: No Reported History Additional Family Medical History / Comment(s): FROM ANUERYSM Father Family Medical History: No Reported History Medications and Allergies Home Medications Medication Instructions Recorded Confirmed Type Apixaban [Eliquis] 5 mg PO BID #60 tab 09/02/18 11/07/21 Rx Albuterol Inhaler [Ventolin Hfa 2 puff INHALATION RT-Q4H PRN 10/19/21 11/07/21 History Inhaler] Furosemide [Lasix] 20 mg PO DIRECTED 10/19/21 11/07/21 History Metoprolol Tartrate [Lopressor] 100 mg PO TID 10/19/21 11/07/21 History Pantoprazole [Protonix] 40 mg PO AC-BRKFST #30 tab 11/15/21 Rx Allergies Allergy/AdvReac Type Severity Reaction Status Date / Time No Known Allergies Allergy Verified 12/05/21 22:39 Physical Exam Vitals: Vital Signs Temp Pulse Resp BP Pulse Ox 12/06/21 06:24 87 16 129/87 98 12/05/21 22:40 96.9 F L 118 H 20 90/63 96 Intake and Output 12/05/21 12/06/21 12/06/21 22:59 06:59 14:59 Other: Weight 94.801 kg GENERAL: The patient is alert and oriented x3, not in any acute distress. Well developed, well nourished. HEENT: Pupils are round and equally reacting to light. EOMI. No scleral icterus. No conjunctival pallor. Normocephalic, atraumatic. No pharyngeal erythema. No thyromegaly. CARDIOVASCULAR: S1 and S2 present. No murmurs, rubs, or gallops. PULMONARY: Chest is clear to auscultation, no wheezing or crackles. ABDOMEN: Soft, nontender, nondistended, normoactive bowel sounds. No palpable organomegaly. MUSCULOSKELETAL: No joint swelling or deformity. EXTREMITIES: No cyanosis, clubbing, or pedal edema. NEUROLOGICAL: Gross neurological examination did not reveal any focal deficits. SKIN: No rashes. No petechiae Results CBC & Chem 7: 12/05/21 23:11 12/05/21 23:11 Labs: Abnormal Lab Results - Last 24 Hours (Table) 12/05/21 12/05/21 12/06/21 Range/Units 23:11 23:11 01:57 RBC 3.71 L (3.80-5.40) m/uL BUN 48 H (7-17) mg/dL Creatinine 2.00 H (0.52-1.04) mg/dL Glucose 157 H (74-99) mg/dL Urine Appearance Bloody H (Clear) Urine RBC >182 H (0-5) /hpf Urine WBC 100 H (0-5) /hpf Assessment and Plan Assessment: Severe right hydronephrosis Possible Acute GI bleed Colonic diverticulosis Left adrenal mass, Unchanged. Patient informed and instructed to follow up with PCP Dr. Maddox in one week and she agrees Distended gallbladder with gallstones Chronic kidney disease, stage III History of atrial fibrillation on Eliquis History of CVA/TIA Hypertension Plan: This is a pleasant 76 years old female who presents with GI bleeding and hydronephrosis and abdominal pain. Also she has gallbladder disease and abdominal mass. Monitor hemoglobin, continue with Protonix, surgical team consult. Hold Eliquis for now. Follow-up urologist Lower the dose of metoprolol 100 mg 3 times a day and to 50 mg by mouth twice a day Continue with normal saline Check liver ultrasound Labs and medication were reviewed.. Continue same treatment. Continue with symptomatic treatment. Resume home medication. Monitor lytes and vitals. DVT and GI prophylaxis. Further recommendations depends on the clinical course of the patient DVT prophylaxis: hold Eliquis for GI bleed and possible need for procedure for example for hydronephrosis GI Prophylaxis: Ppi PT/OT: Pending Prognosis is guarded
--- NOTE | 2021-12-06 13:16 | P.GSCN ---
History of Present Illness Consult date: 12/06/21 Reason for Consult: Hematuria, hydronephrosis Requesting physician: Zia Torres History of present illness: The patient is a 76-year-old white female with a history of endometrial cancer, initially diagnosed in August 2018. She has reportedly been seen by Dr. Darrion Reina. She was treated with radiation therapy here at [facility] in 2019. It does not appear that she has been treated with chemothera py. She is currently admitted with vaginal bleeding and suprapubic pain. CT scan shows moderate-severe right hydroureteronephrosis, increased compared to her prior CT scan in November 2020. I am consulted for this reason. The patient is a vague historian. She denies any prior history of UTIs or urolithiasis. She denies flank pain. She is unable to determine whether she has experienced hematuria in view of the vaginal bleeding. Review of Systems - Constitutional Denies chills, Denies fever - Genitourinary Genitourinary: Reports as per HPI Past Medical History Past Medical History: Atrial Fibrillation, Cancer, CVA/TIA, GI Bleed, Hyperlipidemia, Myocardial Infarction ([place]) Additional Past Medical History / Comment(s): 07/27/17 FALL'LT HIP FX. 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 History of COVID-19 Last Myocardial Infarction Date:: 2009 History of Any Multi-Drug Resistant Organisms: None Reported Past Surgical History: Heart Catheterization, Orthopedic Surgery, Tonsillectomy Additional Past Surgical History / Comment(s): ORIF RT ANKLE HAS PLATE. Past Anesthesia/Blood Transfusion Reactions: No Reported Reaction Past Psychological History: No Psychological Hx Reported Smoking Status: Never smoker Past Alcohol Use History: None Reported Past Drug Use History: None Reported - Past Family History Mother Family Medical History: No Reported History Additional Family Medical History / Comment(s): FROM ANUERYSM Father Family Medical History: No Reported History Medications and Allergies Home Medications Medication Instructions Recorded Confirmed Type Apixaban [Eliquis] 5 mg PO BID #60 tab 09/02/18 12/06/21 Rx Albuterol Inhaler [Ventolin Hfa 2 puff INHALATION RT-Q4H PRN 10/19/21 12/06/21 History Inhaler] Furosemide [Lasix] 20 mg PO DAILY PRN 10/19/21 12/06/21 History Metoprolol Tartrate [Lopressor] 100 mg PO TID 10/19/21 12/06/21 History Allergies Allergy/AdvReac Type Severity Reaction Status Date / Time No Known Allergies Allergy Verified 12/06/21 11:52 Surgical - Exam Vital Signs Temp Pulse Resp BP Pulse Ox 96.9 F L 118 H 20 90/63 96 12/05/21 22:40 12/05/21 22:40 12/05/21 22:40 12/05/21 22:40 12/05/21 22:40 - General well developed, well nourished, no distress - Neck no masses, trachea midline - Respiratory normal respiratory effort - Abdomen Abdomen: soft, non tender, no guarding, no rigid, no rebound - Psychiatric oriented to time, oriented to person, oriented to place, speech is normal, memory intact Results - Labs 12/05/21 23:11 12/05/21 23:11 Abnormal Lab Results - Last 24 Hours (Table) 12/05/21 12/05/21 12/06/21 Range/Units 23:11 23:11 01:57 RBC 3.71 L (3.80-5.40) m/uL BUN 48 H (7-17) mg/dL Creatinine 2.00 H (0.52-1.04) mg/dL Glucose 157 H (74-99) mg/dL Urine Appearance Bloody H (Clear) Urine RBC >182 H (0-5) /hpf Urine WBC 100 H (0-5) /hpf Diabetes panel 12/05/21 Range/Units 23:11 Sodium 140 (137-145) mmol/L Potassium 5.0 (3.5-5.1) mmol/L Chloride 106 (98-107) mmol/L Carbon Dioxide 23 (22-30) mmol/L BUN 48 H (7-17) mg/dL Creatinine 2.00 H (0.52-1.04) mg/dL Glucose 157 H (74-99) mg/dL Calcium 9.5 (8.4-10.2) mg/dL AST 19 (14-36) U/L ALT 9 (4-34) U/L Alkaline Phosphatase 74 (38-126) U/L Total Protein 6.4 (6.3-8.2) g/dL Albumin 3.7 (3.5-5.0) g/dL Calcium panel 12/05/21 Range/Units 23:11 Calcium 9.5 (8.4-10.2) mg/dL Phosphorus 4.3 (2.5-4.5) mg/dL Albumin 3.7 (3.5-5.0) g/dL Pituitary panel 12/05/21 Range/Units 23:11 Sodium 140 (137-145) mmol/L Potassium 5.0 (3.5-5.1) mmol/L Chloride 106 (98-107) mmol/L Carbon Dioxide 23 (22-30) mmol/L BUN 48 H (7-17) mg/dL Creatinine 2.00 H (0.52-1.04) mg/dL Glucose 157 H (74-99) mg/dL Calcium 9.5 (8.4-10.2) mg/dL Adrenal panel 12/05/21 Range/Units 23:11 Sodium 140 (137-145) mmol/L Potassium 5.0 (3.5-5.1) mmol/L Chloride 106 (98-107) mmol/L Carbon Dioxide 23 (22-30) mmol/L BUN 48 H (7-17) mg/dL Creatinine 2.00 H (0.52-1.04) mg/dL Glucose 157 H (74-99) mg/dL Calcium 9.5 (8.4-10.2) mg/dL Total Bilirubin 0.8 (0.2-1.3) mg/dL AST 19 (14-36) U/L ALT 9 (4-34) U/L Alkaline Phosphatase 74 (38-126) U/L Total Protein 6.4 (6.3-8.2) g/dL Albumin 3.7 (3.5-5.0) g/dL - Imaging CT scan - abdomen: report reviewed, image reviewed Assessment and Plan (1) Hydronephrosis Current Visit: Yes Status: Acute Priority: High Code(s): N13.30 - UNSPECIFIED HYDRONEPHROSIS SNOMED Code(s): 17419176 (2) Gross hematuria Current Visit: Yes Status: Acute Code(s): R31.0 - GROSS HEMATURIA SNOMED Code(s): 622948183 Plan: The source of the patient's bleeding is unclear, but may be urologic. Likewise, the cause of her right hydronephrosis is unclear. I have thus suggested she undergo cystoscopy, bilateral retrograde pyelogram, possible ureteroscopy, possible ureteral stent insertion. If a bladder tumor is identified, I would proceed with resection. This has been discussed in detail with the patient. She has been made aware of potential risks, which include anesthesia, bleeding, infection, bladder injury, and ureteral injury. Time with Patient: Greater than 30
[2021-12-07] MEDS: METOPROLOL TARTRATE 50 MG TAB PO SCH (09:02)
[2021-12-07] MEDS: SODIUM CHLORIDE 0.9% 1,000 ML IV SCH ×2 (09:23→09:40)
[2021-12-07] MEDS ORDERED: PEG 3350-NA SULF,BICARB,CL/KCL 4,000 ML BOTTLE PO ONE (09:27)
--- NOTE | 2021-12-07 09:29 | P.PN ---
Progress Note - Text Progress Note Date: 12/07/21 The patient is resting comfortably in her bed. She is scheduled for cystoscopy and possible bladder tumor resection today. She has not shown any further GI bleed. On exam vital signs are stable. Abdomen soft. Patient will be scheduled for EGD colonoscopy when medically stable.
[2021-12-07] MEDS ORDERED: PHENYLEPHRINE-0.9% NACL SYG 1,000 MCG/10 ML SYRINGE ONE (09:40)
[2021-12-07] MEDS ORDERED: ONDANSETRON 4 MG/2 ML VIAL ONE (09:40)
[2021-12-07] MEDS ORDERED: PROPOFOL 10 MG/ML 20 ML VIAL IV ONE (09:40)
[2021-12-07] MEDS ORDERED: LIDOCAINE 2% INJ 20 MG/ML (2 ML VIAL) ONE (09:40)
[2021-12-07] MEDS ORDERED: DEXAMETHASONE SOD PHOSPHATE 10 MG/ML 1 ML VIAL ONE (09:40)
[2021-12-07] MEDS ORDERED: SUCCINYLCHOLINE CHLORIDE 100 MG/5 ML SYR IV ONE (09:40)
[2021-12-07] MEDS ORDERED: fentaNYL (PF) 50 MCG/ML 2 ML AMP ONE (09:40)
[2021-12-07] MEDS ORDERED: SODIUM CHLORIDE 0.9% 50 ML with ceFAZolin 2,000 MG IV ONE ×2 (09:55)
[2021-12-07] MEDS ORDERED: IOPAMIDOL-370 50ML BTL MISCELLANE ONE (10:18)
--- NOTE | 2021-12-07 10:41 | FL ---
The EXAMINATION TYPE: FL urography retrograde DATE OF EXAM: 12/07/2021 COMPARISON: NONE HISTORY: Retrograde pyelography TECHNIQUE: Fluoroscopy. FINDINGS: Fluoroscopic guidance was provided during procedure performed . A total of July 2:00 within the beginning of the FINDINGS: 101 seconds of fluoroscopic time was utilized during the procedure and 13 spot images was acquired. IMPRESSION: As Above.
--- NOTE | 2021-12-07 10:43 | P.OP ---
Date of Procedure: 12/07/21 Preoperative Diagnosis: Gross hematuria, right hydronephrosis Postoperative Diagnosis: Right hydronephrosis secondary to ureteral obstruction Procedure(s) Performed: Cystoscopy, bilateral retrograde pyelograms, right ureteral stent insertion Anesthesia: JOSÉ MIGUEL Surgeon: Emeka Roberto Estimated Blood Loss (ml): 0 IV fluids (ml): 600 Pathology: none sent Condition: stable Disposition: PACU Indications for Procedure: The patient is a 76-year-old white female with a history of endometrial cancer, initially diagnosed in August 2018. She has reportedly been seen by Dr. Darrion Reina. She was treated with radiation therapy here at [facility] in 2018. It does not appear that she has been treated with chemotherapy. She is currently admitted with vaginal bleeding and pain. CT scan shows moderate-severe right hydroureteronephrosis, increased compared to her prior CT scan in November 2020. I am consulted for this reason. The patient is a vague historian. She denies any prior history of UTIs or urolithiasis. She denies flank pain. She is unable to determine whether she has experienced hematuria in view of the vaginal bleeding. Operative Findings: 1) Bleeding was noted following bimanual examination. 2) No evidence of hematuria. 3) Significant right hydroureteronephrosis down to the level of a narrowing at L5-S1. Description of Procedure: The patient was taken to the operating room and placed in the dorsolithotomy position, with legs supported in Dorian stirrups. After obtaining consent from the patient, Dr. Hernandez performed a bimanual examination. She noted the cervix to be friable, and a small amount of bleeding was noted following that examination. The external genitalia was prepped and draped sterilely. The 30 lens was used to introduce the 22-Dutch Stortz cystoscopic sheath through the urethra and into the bladder under direct vision. The bladder was examined in its entirety. There was no evidence of bleeding within the bladder. Both ureteral orifices were of normal anatomic location and configuration, and clear urine effluxed from both. No tumors or foreign bodies were seen. The posterior aspect of the bladder was somewhat elevated, as if there may be some extrinsic compression. Using a 10-Dutch cone-tipped catheter, bilateral retrograde pyelograms were performed. The course of each ureter was seen on fluoroscopy. The left re trograde pyelogram was normal, showing no filling defects, dilation, or obstruction. The right retrograde pyelogram revealed the right distal ureter to appear normal. The mid ureter was somewhat narrowed, and at the level of L5-S1 was an abrupt transition with proximal hydroureter. The right proximal ureter was significantly dilated and tortuous. A straight tip 0.035 inch Glidewire was passed through the cystoscope. The right ureteral orifice was cannulated, and the Glidewire was slowly advanced up to the proximal ureter. However, the Glidewire could not be advanced through the area of tortuosity. Therefore, an angle-tip 0.035 inch Glidewire was passed, and it was possible to manipulate the tip of the Glidewire through the area of tortuosity and up to the right renal pelvis. A 28 cm, 6-Dutch double-J ureteral stent was placed over the wire. Proper stent positioning was verified fluoroscopically and endoscopically. The bladder was emptied and the cystoscope removed. The patient tolerated the procedure well was taken to the recovery room in stable condition.
[2021-12-07] MEDS: PANTOPRAZOLE 40 MG/10 ML VIAL IVP SCH (11:13)
[2021-12-07] MEDS ORDERED: METOPROLOL SUCCINATE (ER) 50 MG TAB.ER.24H PO STA (13:46)
[2021-12-07] MEDS ORDERED: METOPROLOL TARTRATE 50 MG TAB PO STA (13:48)
--- NOTE | 2021-12-07 16:58 | P.OBCN ---
History of Present Illness Consult date: 12/07/21 Reason for consult: other (Postmenopausal bleeding with history of endometrial cancer) Chief complaint: Vaginal bleeding, hydroureter History of present illness: 76-year-old female presented to the hospital with vaginal bleeding. Patient has a history of endometrial cancer and underwent radiation in 2019. She did not have chemotherapy. This patient's now has a hydroureter or hydronephrosis as well. Since Dr. Roberto is taken to the operating room soon for a diagnosis of cystoscopy and possible resection of tumor or stent placement I verbally consented the patient for exam under anesthesia as well. Review of Systems All systems: negative Constitutional: Denies chills, Denies fever Eyes: denies blurred vision, denies pain Ears, nose, mouth and throat: Denies headache, Denies sore throat Cardiovascular: Denies chest pain, Denies shortness of breath Respiratory: Denies cough Gastrointestinal: Denies abdominal pain, Denies diarrhea, Denies nausea, Denies vomiting Genitourinary: Denies dysuria, Denies hematuria Musculoskeletal: Denies myalgias Integumentary: Denies pruritus, Denies rash Neurological: Denies numbness, Denies weakness Psychiatric: Denies anxiety, Denies depression Endocrine: Denies fatigue, Denies weight change Past Medical History Past Medical History: Atrial Fibrillation, Cancer, CVA/TIA, GI Bleed, Hyperl ipidemia, Myocardial Infarction ([place]) Additional Past Medical History / Comment(s): 07/27/17 FALL'LT HIP FX. 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 History of COVID-19 Last Myocardial Infarction Date:: 2009 History of Any Multi-Drug Resistant Organisms: None Reported Past Surgical History: Heart Catheterization, Orthopedic Surgery, Tonsillectomy Additional Past Surgical History / Comment(s): ORIF RT ANKLE HAS PLATE. Past Anesthesia/Blood Transfusion Reactions: No Reported Reaction Past Psychological History: No Psychological Hx Reported Smoking Status: Never smoker Past Alcohol Use History: None Reported Past Drug Use History: None Reported - Past Family History Mother Family Medical History: No Reported History Additional Family Medical History / Comment(s): FROM ANUERYSM Father Family Medical History: No Reported History Medications and Allergies Home Medications Medication Instructions Recorded Confirmed Type Apixaban [Eliquis] 5 mg PO BID #60 tab 09/02/18 12/06/21 Rx Albuterol Inhaler [Ventolin Hfa 2 puff INHALATION RT-Q4H PRN 10/19/21 12/06/21 History Inhaler] Furosemide [Lasix] 20 mg PO DAILY PRN 10/19/21 12/06/21 History Metoprolol Tartrate [Lopressor] 100 mg PO TID 10/19/21 12/06/21 History Allergies Allergy/AdvReac Type Severity Reaction Status Date / Time No Known Allergies Allergy Verified 12/06/21 11:52 Exam Osteopathic Statement: *. No significant issues noted on an osteopathic structural exam other than those noted in the History and Physical/Consult. Vital Signs Temp Pulse Resp BP Pulse Ox 12/07/21 12:35 134 H 154/78 97 12/07/21 12:20 129 H 126/85 89 L 12/07/21 12:05 121 H 127/70 97 12/07/21 11:50 103 H 121/63 95 12/07/21 11:35 78 125/72 99 12/07/21 11:20 65 128/74 95 12/07/21 11:05 87 131/83 94 L 12/07/21 10:50 102 H 20 130/69 99 12/07/21 10:43 80 20 122/56 98 12/07/21 10:27 97 F L 86 20 124/67 97 12/07/21 07:20 98.1 F 101 H 121/72 97 12/07/21 01:57 98.4 F 81 20 128/71 96 12/06/21 19:59 97.5 F L 64 16 138/83 96 Intake and Output 12/07/21 12/07/21 12/07/21 06:59 14:59 22:59 Intake Total 900 650 Output Total 0 Balance 900 650 Intake: IV 650 Intake, IV Titration 900 Amount Sodium Chloride 0.9% 1, 900 000 ml @ 75 mls/hr IV . [id number] [facility] Rx#:[id number] Output: Estimated Blood Loss 0 Other: Voiding Method Toilet # Voids 3 Weight 94.801 kg Bimanual exam revealed a soft friable cervix with no lesions noted. The cervix does bleed when I touch it. There was no active bleeding until I did my exam. Results Result Diagrams: 12/05/21 23:11 12/05/21 23:11 Microbiology - Last 24 Hours (Table) 12/06/21 01:57 Urine Culture - Final Urine,Voided Assessment and Plan (1) Post-menopausal bleeding Current Visit: No Status: Acute Code(s): N95.0 - POSTMENOPAUSAL BLEEDING SNOMED Code(s): 05914996 (2) History of endometrial cancer Current Visit: Yes Status: Acute Code(s): Z85.42 - PERSONAL HISTORY OF MALIGNANT NEOPLASM OF OTH PRT UTERUS SNOMED Code(s): 847833713 (3) Status post radiation therapy Current Visit: Yes Status: Acute Code(s): Z92.3 - PERSONAL HISTORY OF IRRADIATION SNOMED Code(s): 203849168 Plan: 1. This vaginal bleeding is likely from friable tissue on her cervix. If the bleeding starts to cause health issues recommend she see Dr. Reina again and then get some radiation treatment on her cervix or endometrium to stop the bleeding.
[2021-12-07] MEDS ORDERED: METOPROLOL TARTRATE 50 MG TAB PO SCH (21:00)
--- NOTE | 2021-12-07 22:26 | P.PN ---
Subjective This is a pleasant 76 years old female with past medical history of Atrial Fibrillation on Eliquis, CVA/TIA, GI Bleed, Hyperlipidemia, chronic GI bleed Presents because of abdominal pain, in the lower abdomen, patient states this pain has been going on for about a month, also for the last 3-4 days she's been having bleeding she thinks is up from her urine and vaginal opening, also there was suspicion of bleeding per rectum. She denies chest pain or dyspnea. No headache or dizziness. No dysuria. No diarrhea, she says her stool is hard. She denies smoking, alcohol or illicit drugs She was taking 2 pills of aspirin every day for the last few days because of her abdominal pain Also patient was on Eliquis for A. fib which is held now, I explained to the patient and she'll be at risk of stroke and she understands that. Patient hemodynamically stable, vitals are stable Hemoglobin is 11.4 which is within the reference range and INR is 1.0. Rest of CBC, INR is unremarkable. BNP is reviewed showing elevated creatinine at 2.0 CT of the abdomen and pelvis: Moderate to severe right hydronephrosis with no definite obstructive process. Distended gallbladder with multiple stones. Left adrenal gland mass, and change, colonic diverticulosis 12/07/2021 Patient was awakened alert looks calm, she underwent operative procedure with the urologist and hospital insurance representative where right ureteral stent was placed today. Also she has evidence with some small bleeding from friable cervix and hospital insurance representative recommended to follow-up with her Dr. Reina for possible radiotherapy if bleeding continues from the cervix and endometrium Today patient developed A. fib and RVR, her metoprolol was lowered the dose on admission for hypotension to 50 mg twice a day, today increased back to 100 mg twice a day. We will keep monitoring. Keep anticoagulation on hold because of the bleeding episodes Surgical team are planning for EGD/, prostate at certain point Objective - Vital Signs Vital signs: Vital Signs Temp 97 F L 12/07/21 10:27 Pulse 134 H 12/07/21 12:35 Resp 20 12/07/21 10:50 BP 154/78 12/07/21 12:35 Pulse Ox 97 12/07/21 12:35 FiO2 Intake & Output 12/07/21 12/07/21 12/08/21 06:59 18:59 06:59 Intake Total 900 650 Output Total 0 Balance 900 650 Weight 94.801 kg Intake: IV 650 Intake, IV Titration 900 Amount Sodium Chloride 0.9% 1, 900 000 ml @ 75 mls/hr IV . [id number] [facility] Rx#:[id number] Output: Estimated Blood Loss 0 Other: Voiding Method Toilet Toilet # Voids 3 5 - Exam GENERAL: The patient is alert and oriented x3, not in any acute distress. Well developed, well nourished. Patient is obese, generally weak HEENT: Pupils are round and equally reacting to light. EOMI. No scleral icterus. No conjunctival pallor. Normocephalic, atraumatic. No pharyngeal erythema. No thyromegaly. CARDIOVASCULAR: S1 and S2 present. No murmurs, rubs, or gallops. PULMONARY: Chest is clear to auscultation, no wheezing or crackles. ABDOMEN: Soft, nontender, nondistended, normoactive bowel sounds. No palpable organomegaly. MUSCULOSKELETAL: No joint swelling or deformity. EXTREMITIES: No cyanosis, clubbing, or pedal edema. NEUROLOGICAL: Gross neurological examination did not reveal any focal deficits. SKIN: No rashes. no petechiae. - Labs CBC & Chem 7: 12/05/21 23:11 12/05/21 23:11 Labs: Microbiology - Last 24 Hours (Table) 12/06/21 01:57 Urine Culture - Final Urine,Voided Assessment and Plan Assessment: Severe right hydronephrosis, status post right ureteral stent placement on 12/07 Possible Acute GI bleed, patient plan for EGD/colonoscopy Mild bleeding from the friable cervix, follow-up outpatient Colonic diverticulosis Left adrenal mass, Unchanged. Patient informed and instructed to follow up with PCP Dr. Maddox in one week and she agrees Distended gallbladder with gallstones Chronic kidney disease, stage III History of atrial fibrillation on Eliquis History of CVA/TIA Hypertension Plan: This is a pleasant 76 years old female who presents with GI bleeding and hydronephrosis and abdominal pain. Also she has gallbladder disease and abdominal mass. Monitor hemoglobin, continue with Protonix, surgical team consult. Hold Eliquis for now. Urologist and hospital insurance representative on the case, Resume the dose of metoprolol 100 mg 3 times a day Continue with normal saline Labs and medication were reviewed.. Continue same treatment. Continue with symptomatic treatment. Resume home medication. Monitor lytes and vitals. DVT and GI prophylaxis. Further recommendations depends on the clinical course of the patient DVT prophylaxis: hold Eliquis for GI bleed and possible need for procedure for example for hydronephrosis GI Prophylaxis: Ppi PT/OT: Pending Prognosis is guarded
[2021-12-08] MEDS: SODIUM CHLORIDE 0.9% 1,000 ML IV SCH ×2 (07:36→21:02)
[2021-12-08] MEDS: PANTOPRAZOLE 40 MG/10 ML VIAL IVP SCH (07:53)
[2021-12-08] MEDS: METOPROLOL TARTRATE 50 MG TAB PO SCH ×3 (07:53→21:01)
--- NOTE | 2021-12-08 07:55 | P.PN ---
Subjective Progress Note Date: 12/08/21 The patient had cystoscopy and placement of a double-J catheter on the right side by yesterday. There was no urinary tract cause for her bleeding. There was right hydronephrosis due to extrinsic compression either due to recurrence of the cancer or radiation stricturing. A double-J catheter was placed. The patient will need follow-up with Dr. hankins in the future. The cause of the bleeding appears to be gynecologic in Dr. David has been consult would and will direct further evaluation and/or treatment for this. Fortunately the patient does not seem to have a great comprehension of the [employer] issues. I spent a fair amount of time trying to explain this to her but I question how much she truly understands. I will make a follow-up appointment with Dr. hankins. Objective - Vital Signs Vital signs: Vital Signs Temp 97.3 F L 12/08/21 07:51 Pulse 89 12/08/21 07:51 Resp 17 12/08/21 07:51 BP 138/72 12/08/21 07:51 Pulse Ox 93 L 12/08/21 07:51 FiO2 Intake & Output 12/07/21 12/08/21 12/08/21 18:59 06:59 18:59 Intake Total 650 600 Output Total 0 Balance 650 600 Weight 94.801 kg Intake: IV 650 Intake, IV Titration 600 Amount Sodium Chloride 0.9% 50 600 ml @ 0 mls/hr IV .STK-MED ONE with ceFAZolin 2,000 mg Rx#:[id number] Output: Estimated Blood Loss 0 Other: Voiding Method Toilet Toilet # Voids 5 7 - Labs CBC & Chem 7: 12/05/21 23:11 12/05/21 23:11 Labs: Microbiology - Last 24 Hours (Table) 12/06/21 01:57 Urine Culture - Final Urine,Voided
[2021-12-08 09:33] LABS: Basophils # (A) 0.02 X 10*3/uL (0.00-0.10); Basophils % (A) 0.2 %; Eosinophils # (A) 0 X 10*3/uL (0.04-0.35); Eosinophils % (A) 0 %; HCT 34.4 % (37.2-46.3); HGB 10.1 g/dL (12.0-15.0); Immature Grans, Automated 0.3 %; Lymphocytes # (A) 0.86 X 10*3/uL (0.90-5.00); Lymphocytes % (A) 9.1 %; MCH 29.5 pg (27.0-32.0); MCHC 29.4 g/dL (32.0-37.0); MCV 100.6 fL (80.0-97.0); Mean Platelet Volume 10.6 fL (9.5-12.2); Monocytes # (A) 0.53 X 10*3/uL (0.20-1.00); Monocytes % (A) 5.6 %; NRBC Per 100 WBC 0 /100 WBCS (0.0-0.0); Neutrophils # (A) 8.05 X 10*3/uL (1.80-7.70); Neutrophils % (A) 84.8 %; Platelet Count 227 X 10*3/uL (140-440); RBC 3.42 X 10*6/uL (4.10-5.20); RDW 14.8 % (11.5-14.5); WBC 9.49 X 10*3/uL (4.50-10.00)
[2021-12-08 09:42] LABS: BUN/Creat Ratio 16.21 Ratio (12.00-20.00); Blood Urea Nitrogen 30.8 mg/dL (9.0-27.0); Calcium 9.1 mg/dL (8.7-10.3); Carbon Dioxide 17.5 mmol/L (20.0-27.5); Chloride 113 mmol/L (96-109); Glucose 186 mg/dL (70-110); Magnesium 2.1 mg/dL (1.5-2.4); Sodium 145 mmol/L (135-145)
--- NOTE | 2021-12-08 14:01 | P.PN ---
Subjective Progress Note Date: 12/08/21 CHIEF COMPLAINT: GI bleed, gallstones HISTORY OF PRESENT ILLNESS: Initially there is concern for possible GI bleed. Patient reports no blood per rectum. Reports no bowel movement. Denies any abdominal pain. She was evaluated by urology and is status post right ureteral stent. Patient also followed by AIRPORT RAMP SUPERVISOR service due to vaginal bleeding possibly secondary to friable cervix tissue and history of radiation treatment and endometrial cancer. AIRPORT RAMP SUPERVISOR services recommending patient to follow-up with Dr. Alfa arredondo for radiation treatment on her cervix or endometrium to help stop the bleeding. At this time patient denies any bleeding vaginally. Afebrile. Hemoglobin 11.4 down to 10.1 PHYSICAL EXAM: VITAL SIGNS: Reviewed. GENERAL: Well-developed in no acute distress. HEENT: No sclera icterus. Extraocular movements grossly intact. Moist buccal mucosa. Head is atraumatic, normocephalic. ABDOMEN: Soft. Nondistended. Nontender. NEUROLOGIC: Alert and oriented. Cranial nerves II through XII grossly intact. ASSESSMENT: 1. History of GI bleed 2. Gallstones 3. Hydronephrosis status post right ureteral stent with urology service 4. Vaginal bleeding followed by AIRPORT RAMP SUPERVISOR service 5. Diverticulosis noted on CAT scan PLAN: -Recommend EGD and colonoscopy when medically stable -Continue to monitor for signs or symptoms of bleeding -Continue heart healthy diet Physician Tube Sizer Operator note has been reviewed by physician. Signing provider agrees with the documented findings, assessment, and plan of care. Objective - Vital Signs Vital signs: Vital Signs Temp 97.3 F L 12/08/21 07:51 Pulse 89 12/08/21 07:51 Resp 17 12/08/21 07:51 BP 138/72 12/08/21 07:51 Pulse Ox 93 L 12/08/21 07:51 FiO2 Intake & Output 12/07/21 12/08/21 12/08/21 18:59 06:59 18:59 Intake Total 650 600 Output Total 0 Balance 650 600 Weight 94.801 kg Intake: IV 650 Intake, IV Titration 600 Amount Sodium Chloride 0.9% 50 600 ml @ 0 mls/hr IV .STK-MED ONE with ceFAZolin 2,000 mg Rx#:[id number] Output: Estimated Blood Loss 0 Other: Voiding Method Toilet Toilet Toilet # Voids 5 7 - Labs CBC & Chem 7: 12/08/21 03:52 12/08/21 03:52 Labs: Abnormal Lab Results - Last 24 Hours (Table) 12/08/21 12/08/21 Range/Units 03:52 03:52 RBC 3.42 L (4.10-5.20) X 10*6/uL Hgb 10.1 L (12.0-15.0) g/dL Hct 34.4 L (37.2-46.3) % MCV 100.6 H (80.0-97.0) fL MCHC 29.4 L (32.0-37.0) g/dL RDW 14.8 H (11.5-14.5) % Neutrophils # 8.05 H (1.80-7.70) X 10*3/uL Lymphocytes # 0.86 L (0.90-5.00) X 10*3/uL Eosinophils # 0 L (0.04-0.35) X 10*3/uL Chloride 113 H (96-109) mmol/L Carbon Dioxide 17.5 L (20.0-27.5) mmol/L BUN 30.8 H (9.0-27.0) mg/dL Creatinine 1.9 H (0.6-1.5) mg/dL Est GFR (CKD-EPI)AfAm 29.0 L (60.0-200.0) Est GFR (CKD-EPI)NonAf 25.0 L (60.0-200.0) Glucose 186 H (70-110) mg/dL Microbiology - Last 24 Hours (Table) 12/06/21 01:57 Urine Culture - Final Urine,Voided
[2021-12-08] MEDS ORDERED: SENNOSIDES 8.6 MG TAB PO PRN (21:12)
--- NOTE | 2021-12-08 21:31 | P.PN ---
Subjective This is a pleasant 76 years old female with past medical history of Atrial Fibrillation on Eliquis, CVA/TIA, GI Bleed, Hyperlipidemia, chronic GI bleed Presents because of abdominal pain, in the lower abdomen, patient states this pain has been going on for about a month, also for the last 3-4 days she's been having bleeding she thinks is up from her urine and vaginal opening, also there was suspicion of bleeding per rectum. She denies chest pain or dyspnea. No headache or dizziness. No dysuria. No diarrhea, she says her stool is hard. She denies smoking, alcohol or illicit drugs She was taking 2 pills of aspirin every day for the last few days because of her abdominal pain Also patient was on Eliquis for A. fib which is held now, I explained to the patient and she'll be at risk of stroke and she understands that. Patient hemodynamically stable, vitals are stable Hemoglobin is 11.4 which is within the reference range and INR is 1.0. Rest of CBC, INR is unremarkable. BNP is reviewed showing elevated creatinine at 2.0 CT of the abdomen and pelvis: Moderate to severe right hydronephrosis with no definite obstructive process. Distended gallbladder with multiple stones. Left adrenal gland mass, and change, colonic diverticulosis 12/07/2021 Patient was awakened alert looks calm, she underwent operative procedure with the urologist and flying ii instructor where right ureteral stent was placed today. Also she has evidence with some small bleeding from friable cervix and flying ii instructor recommended to follow-up with her Dr. Reina for possible radiotherapy if bleeding continues from the cervix and endometrium Today patient developed A. fib and RVR, her metoprolol was lowered the dose on admission for hypotension to 50 mg twice a day, today increased back to 100 mg twice a day. We will keep monitoring. Keep anticoagulation on hold because of the bleeding episodes Surgical team are planning for EGD/, prostate at certain point 12/08/2021 Patient was sitting in chair looks much better compared to the last 2 days, more comfortable, she is happy her bleeding hasn't stopped and she denies any abdomin al pain or any other symptoms Her only complaint was increased frequency of urination, I explained to her this could be sequelae of her procedure where right ureteral stent was placed area Patient will need to follow up with urologist as an outpatient, patient also aware that she needs to follow-up with Dr. Reina and she told me she knows to contact information and bedrest. Surgery team are planning for DVT/colonoscopy during this admission. She is hemodynamically stable. Her A. fib is controlled. After resumed her metoprolol at home dose of 100 mg 3 times a day Hemoglobin is 10.1 after some hematoma delusion. Objective - Vital Signs Vital signs: Vital Signs Temp 97.3 F L 12/08/21 07:51 Pulse 89 12/08/21 07:51 Resp 17 12/08/21 07:51 BP 138/72 12/08/21 07:51 Pulse Ox 93 L 12/08/21 07:51 FiO2 Intake & Output 12/07/21 12/08/21 12/08/21 18:59 06:59 18:59 Intake Total 650 600 Output Total 0 Balance 650 600 Weight 94.801 kg Intake: IV 650 Intake, IV Titration 600 Amount Sodium Chloride 0.9% 50 600 ml @ 0 mls/hr IV .STK-MED ONE with ceFAZolin 2,000 mg Rx#:[id number] Output: Estimated Blood Loss 0 Other: Voiding Method Toilet Toilet Toilet # Voids 5 7 - Exam GENERAL: The patient is alert and oriented x3, not in any acute distress. Well developed, well nourished. Patient is obese, generally weak HEENT: Pupils are round and equally reacting to light. EOMI. No scleral icterus. No conjunctival pallor. Normocephalic, atraumatic. No pharyngeal erythema. No thyromegaly. CARDIOVASCULAR: S1 and S2 present. No murmurs, rubs, or gallops. PULMONARY: Chest is clear to auscultation, no wheezing or crackles. ABDOMEN: Soft, nontender, nondistended, normoactive bowel sounds. No palpable organomegaly. MUSCULOSKELETAL: No joint swelling or deformity. EXTREMITIES: No cyanosis, clubbing, or pedal edema. NEUROLOGICAL: Gross neurological examination did not reveal any focal deficits. SKIN: No rashes. no petechiae. - Labs CBC & Chem 7: 12/08/21 03:52 12/08/21 03:52 Labs: Abnormal Lab Results - Last 24 Hours (Table) 12/08/21 12/08/21 Range/Units 03:52 03:52 RBC 3.42 L (4.10-5.20) X 10*6/uL Hgb 10.1 L (12.0-15.0) g/dL Hct 34.4 L (37.2-46.3) % MCV 100.6 H (80.0-97.0) fL MCHC 29.4 L (32.0-37.0) g/dL RDW 14.8 H (11.5-14.5) % Neutrophils # 8.05 H (1.80-7.70) X 10*3/uL Lymphocytes # 0.86 L (0.90-5.00) X 10*3/uL Eosinophils # 0 L (0.04-0.35) X 10*3/uL Chloride 113 H (96-109) mmol/L Carbon Dioxide 17.5 L (20.0-27.5) mmol/L BUN 30.8 H (9.0-27.0) mg/dL Creatinine 1.9 H (0.6-1.5) mg/dL Est GFR (CKD-EPI)AfAm 29.0 L (60.0-200.0) Est GFR (CKD-EPI)NonAf 25.0 L (60.0-200.0) Glucose 186 H (70-110) mg/dL Microbiology - Last 24 Hours (Table) 12/06/21 01:57 Urine Culture - Final Urine,Voided Assessment and Plan Assessment: Severe right hydronephrosis, status post right ureteral stent placement on 12/07 Possible Acute GI bleed, patient plan for EGD/colonoscopy Mild bleeding from the friable cervix, follow-up outpatient Colonic diverticulosis Left adrenal mass, Unchanged. Patient informed and instructed to follow up with PCP Dr. Maddox in one week and she agrees Distended gallbladder with gallstones Chronic kidney disease, stage III History of atrial fibrillation on Eliquis History of CVA/TIA Hypertension Plan: This is a pleasant 76 years old female who presents with GI bleeding and hydronephrosis and abdominal pain. Also she has gallbladder disease and abdominal mass. Monitor hemoglobin, continue with Protonix, surgical team consult. Hold Eliquis for now. Urologist and flying ii instructor on the case, Resume the dose of metoprolol 100 mg 3 times a day Continue with normal saline Labs and medication were reviewed.. Continue same treatment. Continue with symptomatic treatment. Resume home medication. Monitor lytes and vitals. DVT and GI prophylaxis. Further recommendations depends on the clinical course of the patient DVT prophylaxis: hold Eliquis for GI bleed and possible need for procedure for example for hydronephrosis GI Prophylaxis: Ppi PT/OT: Pending Prognosis is guarded
[2021-12-09] MEDS: PANTOPRAZOLE 40 MG/10 ML VIAL IVP SCH (07:17)
[2021-12-09] MEDS: SODIUM CHLORIDE 0.9% 1,000 ML IV SCH ×2 (07:18→13:53)
[2021-12-09] MEDS: METOPROLOL TARTRATE 50 MG TAB PO SCH ×3 (07:18→21:20)
[2021-12-09 09:10] LABS: Basophils # (A) 0.03 X 10*3/uL (0.00-0.10); Basophils % (A) 0.4 %; Eosinophils % (A) 1.4 %; HCT 33.7 % (37.2-46.3); HGB 9.8 g/dL (12.0-15.0); Immature Grans, Automated 0.3 %; Lymphocytes # (A) 0.72 X 10*3/uL (0.90-5.00); Lymphocytes % (A) 10.1 %; MCH 28.8 pg (27.0-32.0); MCHC 29.1 g/dL (32.0-37.0); MCV 99.1 fL (80.0-97.0); Mean Platelet Volume 10.6 fL (9.5-12.2); Monocytes # (A) 0.57 X 10*3/uL (0.20-1.00); NRBC Per 100 WBC 0 /100 WBCS (0.0-0.0); Neutrophils # (A) 5.71 X 10*3/uL (1.80-7.70); Neutrophils % (A) 79.8 %; Platelet Count 209 X 10*3/uL (140-440); RDW 15.1 % (11.5-14.5); WBC 7.15 X 10*3/uL (4.50-10.00)
[2021-12-09 09:30] LABS: African American GFR (CKD) 31.8 (60.0-200.0); Anion Gap 11.4 mmol/L (10.00-18.00); BUN/Creat Ratio 16.19 Ratio (12.00-20.00); Blood Urea Nitrogen 28.5 mg/dL (9.0-27.0); Calcium 8.9 mg/dL (8.7-10.3); Carbon Dioxide 19.8 mmol/L (20.0-27.5); Magnesium 1.8 mg/dL (1.5-2.4); Non-African American GFR(CKD) 27.4 (60.0-200.0); Potassium 4.4 mmol/L (3.5-5.5)
--- NOTE | 2021-12-09 13:00 | P.PN ---
Subjective Progress Note Date: 12/09/21 CHIEF COMPLAINT: GI bleed, gallstones HISTORY OF PRESENT ILLNESS: Initially there is concern for possible GI bleed. Patient reports no blood per rectum. Reports no bowel movement. Denies any abdominal pain. She was evaluated by urology and is status post right ureteral stent. Patient also followed by TRUCK TRAILER MECHANIC service due to vaginal bleeding possibly secondary to friable cervix tissue and history of radiation treatment and endometrial cancer. TRUCK TRAILER MECHANIC services recommending patient to follow-up with Dr. Alfa arredondo for radiation treatment on her cervix or endometrium to help stop the bleeding. At this time patient denies any bleeding vaginally. Afebrile. HGB trending down from 10.1-9.8 Patient seen and examined with Dr. riddle PHYSICAL EXAM: VITAL SIGNS: Reviewed. GENERAL: Well-developed in no acute distress. HEENT: No sclera icterus. Extraocular movements grossly intact. Moist buccal mucosa. Head is atraumatic, normocephalic. ABDOMEN: Soft. Nondistended. Nontender. NEUROLOGIC: Alert and oriented. Cranial nerves II through XII grossly intact. ASSESSMENT: 1. History of GI bleed 2. Gallstones 3. Hydronephrosis status post right ureteral stent with urology service 4. Vaginal bleeding followed by TRUCK TRAILER MECHANIC service 5. Diverticulosis noted on CAT scan PLAN: -Recommend EGD and colonoscopy on , 12/11/[address] Riddle -Start GoLYTELY bowel prep tomorrow morning -Full liquid diet today -Start clear liquids tomorrow Physician Patternmaker note has been reviewed by physician. Signing provider agrees with the documented findings, assessment, and plan of care. Objective - Vital Signs Vital signs: Vital Signs Temp 98.7 F 12/09/21 07:23 Pulse 104 H 12/09/21 07:38 Resp 19 12/09/21 07:23 BP 156/95 12/09/21 07:23 Pulse Ox 91 L 12/09/21 07:23 FiO2 Intake & Output 12/08/21 12/09/21 12/09/21 18:59 06:59 18:59 Other: Voiding Method Toilet Toilet Toilet # Voids 5 4 - Labs CBC & Chem 7: 12/09/21 05:03 12/09/21 05:03 Labs: Abnormal Lab Results - Last 24 Hours (Table) 12/09/21 12/09/21 Range/Units 05:03 05:03 RBC 3.40 L (4.10-5.20) X 10*6/uL Hgb 9.8 L (12.0-15.0) g/dL Hct 33.7 L (37.2-46.3) % MCV 99.1 H (80.0-97.0) fL MCHC 29.1 L (32.0-37.0) g/dL RDW 15.1 H (11.5-14.5) % Lymphocytes # 0.72 L (0.90-5.00) X 10*3/uL Chloride 113 H (96-109) mmol/L Carbon Dioxide 19.8 L (20.0-27.5) mmol/L BUN 28.5 H (9.0-27.0) mg/dL Creatinine 1.8 H (0.6-1.5) mg/dL Est GFR (CKD-EPI)AfAm 31.8 L (60.0-200.0) Est GFR (CKD-EPI)NonAf 27.4 L (60.0-200.0) Glucose 143 H (70-110) mg/dL
--- NOTE | 2021-12-09 21:42 | P.PN ---
Subjective This is a pleasant 76 years old female with past medical history of Atrial Fibrillation on Eliquis, CVA/TIA, GI Bleed, Hyperlipidemia, chronic GI bleed Presents because of abdominal pain, in the lower abdomen, patient states this pain has been going on for about a month, also for the last 3-4 days she's been having bleeding she thinks is up from her urine and vaginal opening, also there was suspicion of bleeding per rectum. She denies chest pain or dyspnea. No headache or dizziness. No dysuria. No diarrhea, she says her stool is hard. She denies smoking, alcohol or illicit drugs She was taking 2 pills of aspirin every day for the last few days because of her abdominal pain Also patient was on Eliquis for A. fib which is held now, I explained to the patient and she'll be at risk of stroke and she understands that. Patient hemodynamically stable, vitals are stable Hemoglobin is 11.4 which is within the reference range and INR is 1.0. Rest of CBC, INR is unremarkable. BNP is reviewed showing elevated creatinine at 2.0 CT of the abdomen and pelvis: Moderate to severe right hydronephrosis with no definite obstructive process. Distended gallbladder with multiple stones. Left adrenal gland mass, and change, colonic diverticulosis 12/07/2021 Patient was awakened alert looks calm, she underwent operative procedure with the urologist and on site wastewater systems technician where right ureteral stent was placed today. Also she has evidence with some small bleeding from friable cervix and on site wastewater systems technician recommended to follow-up with her Dr. Reina for possible radiotherapy if bleeding continues from the cervix and endometrium Today patient developed A. fib and RVR, her metoprolol was lowered the dose on admission for hypotension to 50 mg twice a day, today increased back to 100 mg twice a day. We will keep monitoring. Keep anticoagulation on hold because of the bleeding episodes Surgical team are planning for EGD/, prostate at certain point 12/08/2021 Patient was sitting in chair looks much better compared to the last 2 days, more comfortable, she is happy her bleeding hasn't stopped and she denies any abdomin al pain or any other symptoms Her only complaint was increased frequency of urination, I explained to her this could be sequelae of her procedure where right ureteral stent was placed area Patient will need to follow up with urologist as an outpatient, patient also aware that she needs to follow-up with Dr. Reina and she told me she knows to contact information and bedrest. Surgery team are planning for DVT/colonoscopy during this admission. She is hemodynamically stable. Her A. fib is controlled. After resumed her metoprolol at home dose of 100 mg 3 times a day Hemoglobin is 10.1 after some hematoma delusion. 12/09/2021 Patient looks comfortable, denies any abdominal pain, no more bleeding She is hemodynamically stable and heart rate is 70 and 80s in the morning, however due to the evening goes up to 90s and 100, that case we will start Cardizem 30 mg twice a day. Also she is on metoprolol the same dose hemoglobin is stable at 9.8. surgery team is planning to do EGD/Colonoscopy on Objective - Vital Signs Vital signs: Vital Signs Temp 98.7 F 12/09/21 07:23 Pulse 104 H 12/09/21 07:38 Resp 19 12/09/21 07:23 BP 156/95 12/09/21 07:23 Pulse Ox 91 L 12/09/21 07:23 FiO2 Intake & Output 12/08/21 12/09/21 12/09/21 18:59 06:59 18:59 Other: Voiding Method Toilet Toilet # Voids 5 4 - Exam GENERAL: The patient is alert and oriented x3, not in any acute distress. Well developed, well nourished. Patient is obese, generally weak HEENT: Pupils are round and equally reacting to light. EOMI. No scleral icterus. No conjunctival pallor. Normocephalic, atraumatic. No pharyngeal erythema. No thyromegaly. CARDIOVASCULAR: S1 and S2 present. No murmurs, rubs, or gallops. PULMONARY: Chest is clear to auscultation, no wheezing or crackles. ABDOMEN: Soft, nontender, nondistended, normoactive bowel sounds. No palpable organomegaly. MUSCULOSKELETAL: No joint swelling or deformity. EXTREMITIES: No cyanosis, clubbing, or pedal edema. NEUROLOGICAL: Gross neurological examination did not reveal any focal deficits. SKIN: No rashes. no petechiae. - Labs CBC & Chem 7: 12/09/21 05:03 12/09/21 05:03 Labs: Abnormal Lab Results - Last 24 Hours (Table) 12/09/21 12/09/21 Range/Units 05:03 05:03 RBC 3.40 L (4.10-5.20) X 10*6/uL Hgb 9.8 L (12.0-15.0) g/dL Hct 33.7 L (37.2-46.3) % MCV 99.1 H (80.0-97.0) fL MCHC 29.1 L (32.0-37.0) g/dL RDW 15.1 H (11.5-14.5) % Lymphocytes # 0.72 L (0.90-5.00) X 10*3/uL Chloride 113 H (96-109) mmol/L Carbon Dioxide 19.8 L (20.0-27.5) mmol/L BUN 28.5 H (9.0-27.0) mg/dL Creatinine 1.8 H (0.6-1.5) mg/dL Est GFR (CKD-EPI)AfAm 31.8 L (60.0-200.0) Est GFR (CKD-EPI)NonAf 27.4 L (60.0-200.0) Glucose 143 H (70-110) mg/dL Assessment and Plan Assessment: Severe right hydronephrosis, status post right ureteral stent placement on 12/07 Possible Acute GI bleed, patient plan for EGD/colonoscopy Mild bleeding from the friable cervix, follow-up outpatient Colonic diverticulosis Left adrenal mass, Unchanged. Patient informed and instructed to follow up with PCP Dr. Maddox in one week and she agrees Distended gallbladder with gallstones Chronic kidney disease, stage III History of atrial fibrillation on Eliquis History of CVA/TIA Hypertension Plan: This is a pleasant 76 years old female who presents with GI bleeding and hydronephrosis and abdominal pain. Also she has gallbladder disease and abdominal mass. Monitor hemoglobin, continue with Protonix, surgical team consult. Hold Eliquis for now. Urologist and on site wastewater systems technician on the case, Resume the dose of metoprolol 100 mg 3 times a day add cardizem Continue with normal saline EGD/Colonoscopy on Labs and medication were reviewed.. Continue same treatment. Continue with symptomatic treatment. Resume home medication. Monitor lytes and vitals. DVT and GI prophylaxis. Further recommendations depends on the clinical course of the patient DVT prophylaxis: hold Eliquis for GI bleed and possible need for procedure for example for hydronephrosis GI Prophylaxis: Ppi PT/OT: Pending Prognosis is guarded
[2021-12-09] MEDS: DILTIAZEM ORAL 30 MG TAB PO SCH (22:37)
[2021-12-10 00:19] LABS: Appearance,Urine Clear (Clear); Bilirubin,Urine Negative (Negative); Blood,Urine Moderate (Negative); Color,Urine Light Yellow; Glucose,Urine (UA) Trace (Negative); Ketones,Urine Negative (Negative); Leukocyte Esterase,Urine Negative (Negative); Nitrite,Urine Negative (Negative); PH, Urine 6.5 (5.0-8.0); Protein,Urine Trace (Negative); RBC,Urine 48 /hpf (0-5); Specific Gravity,Urine 1.009 (1.001-1.035); Squamous Epithelial Cell,Urine 1 /hpf (0-4); Urobilinogen,Urine <2.0 mg/dL (<2.0); WBC,Urine 2 /hpf (0-5)
[2021-12-10] MEDS: SODIUM CHLORIDE 0.9% 1,000 ML IV SCH ×2 (05:54→16:13)
[2021-12-10] MEDS ORDERED: PEG 3350-NA SULF,BICARB,CL/KCL 4,000 ML BOTTLE PO ONE (08:00)
[2021-12-10] MEDS: DILTIAZEM ORAL 30 MG TAB PO SCH ×2 (08:57→20:37)
[2021-12-10] MEDS: METOPROLOL TARTRATE 50 MG TAB PO SCH ×3 (08:57→20:37)
[2021-12-10 09:09] LABS: HCT 32.1 % (37.2-46.3); HGB 9.9 g/dL (12.0-15.0); MCH 29.7 pg (27.0-32.0); MCHC 30.8 g/dL (32.0-37.0); MCV 96.4 fL (80.0-97.0); Mean Platelet Volume 10.5 fL (9.5-12.2); NRBC Per 100 WBC 0 /100 WBCS (0.0-0.0); Platelet Count 192 X 10*3/uL (140-440); RBC 3.33 X 10*6/uL (4.10-5.20); RDW 14.8 % (11.5-14.5); WBC 7.78 X 10*3/uL (4.50-10.00)
[2021-12-10 09:14] LABS: African American GFR (CKD) 39.5 (60.0-200.0); Anion Gap 11.2 mmol/L (10.00-18.00); BUN/Creat Ratio 15.24 Ratio (12.00-20.00); Blood Urea Nitrogen 22.4 mg/dL (9.0-27.0); Calcium 8.9 mg/dL (8.7-10.3); Carbon Dioxide 21.9 mmol/L (20.0-27.5); Non-African American GFR(CKD) 34.1 (60.0-200.0)
[2021-12-10] MEDS: PANTOPRAZOLE 40 MG/10 ML VIAL IVP SCH (09:28)
--- NOTE | 2021-12-10 15:29 | P.PN ---
Subjective Progress Note Date: 12/10/21 CHIEF COMPLAINT: GI bleed, gallstones HISTORY OF PRESENT ILLNESS: Initially there is concern for possible GI bleed. Patient reports no blood per rectum. Reports no bowel movement. Denies any abdominal pain. She was evaluated by urology and is status post right ureteral stent. Patient also followed by MECHANICAL SHOVEL OPERATOR service due to vaginal bleeding possibly secondary to friable cervix tissue and history of radiation treatment and endometrial cancer. MECHANICAL SHOVEL OPERATOR services recommending patient to follow-up with Dr. Alfa arredondo for radiation treatment on her cervix or endometrium to help stop the bleeding. At this time patient denies any bleeding vaginally. Afebrile. HGB stable 9.9 Patient seen and examined with Dr. riddle PHYSICAL EXAM: VITAL SIGNS: Reviewed. GENERAL: Well-developed in no acute distress. HEENT: No sclera icterus. Extraocular movements grossly intact. Moist buccal mucosa. Head is atraumatic, normocephalic. ABDOMEN: Soft. Nondistended. Nontender. NEUROLOGIC: Alert and oriented. Cranial nerves II through XII grossly intact. ASSESSMENT: 1. History of GI bleed 2. Gallstones 3. Hydronephrosis status post right ureteral stent with urology service 4. Vaginal bleeding followed by MECHANICAL SHOVEL OPERATOR service 5. Diverticulosis noted on CAT scan PLAN: -EGD and colonoscopy on , 12/11/[address] Riddle -Start GoLYTELY bowel prep today -Nothing by mouth after midnight -Continue monitor hemoglobin Physician Window Machine Operator note has been reviewed by physician. Signing provider agrees with the documented findings, assessment, and plan of care. Objective - Vital Signs Vital signs: Vital Signs Temp 98.1 F 12/10/21 08:00 Pulse 93 12/10/21 08:00 Resp 16 12/10/21 08:00 BP 162/97 12/10/21 08:00 Pulse Ox 92 L 12/10/21 08:00 FiO2 Intake & Output 12/09/21 12/10/21 12/10/21 18:59 06:59 18:59 Intake Total 500 Output Total 450 Balance 500 -450 Intake: Oral 500 Output: Urine 450 Other: Voiding Method Toilet Toilet # Voids 2 4 - Labs CBC & Chem 7: 12/10/21 04:22 12/10/21 04:22 Labs: Abnormal Lab Results - Last 24 Hours (Table) 12/09/21 12/10/21 12/10/21 Range/Units 23:50 04:22 04:22 RBC 3.33 L (4.10-5.20) X 10*6/uL Hgb 9.9 L (12.0-15.0) g/dL Hct 32.1 L (37.2-46.3) % MCHC 30.8 L (32.0-37.0) g/dL RDW 14.8 H (11.5-14.5) % Est GFR (CKD-EPI)AfAm 39.5 L (60.0-200.0) Est GFR (CKD-EPI)NonAf 34.1 L (60.0-200.0) Glucose 127 H (70-110) mg/dL Urine Protein Trace H (Negative) Urine Glucose (UA) Trace H (Negative) Urine Blood Moderate H (Negative) Urine RBC 48 H (0-5) /hpf
--- NOTE | 2021-12-11 01:30 | P.PN ---
Subjective This is a pleasant 76 years old female with past medical history of Atrial Fibrillation on Eliquis, CVA/TIA, GI Bleed, Hyperlipidemia, chronic GI bleed Presents because of abdominal pain, in the lower abdomen, patient states this pain has been going on for about a month, also for the last 3-4 days she's been having bleeding she thinks is up from her urine and vaginal opening, also there was suspicion of bleeding per rectum. She denies chest pain or dyspnea. No headache or dizziness. No dysuria. No diarrhea, she says her stool is hard. She denies smoking, alcohol or illicit drugs She was taking 2 pills of aspirin every day for the last few days because of her abdominal pain Also patient was on Eliquis for A. fib which is held now, I explained to the patient and she'll be at risk of stroke and she understands that. Patient hemodynamically stable, vitals are stable Hemoglobin is 11.4 which is within the reference range and INR is 1.0. Rest of CBC, INR is unremarkable. BNP is reviewed showing elevated creatinine at 2.0 CT of the abdomen and pelvis: Moderate to severe right hydronephrosis with no definite obstructive process. Distended gallbladder with multiple stones. Left adrenal gland mass, and change, colonic diverticulosis 12/07/2021 Patient was awakened alert looks calm, she underwent operative procedure with the urologist and senior it assistant where right ureteral stent was placed today. Also she has evidence with some small bleeding from friable cervix and senior it assistant recommended to follow-up with her Dr. Reina for possible radiotherapy if bleeding continues from the cervix and endometrium Today patient developed A. fib and RVR, her metoprolol was lowered the dose on admission for hypotension to 50 mg twice a day, today increased back to 100 mg twice a day. We will keep monitoring. Keep anticoagulation on hold because of the bleeding episodes Surgical team are planning for EGD/, prostate at certain point 12/08/2021 Patient was sitting in chair looks much better compared to the last 2 days, more comfortable, she is happy her bleeding hasn't stopped and she denies any abdomin al pain or any other symptoms Her only complaint was increased frequency of urination, I explained to her this could be sequelae of her procedure where right ureteral stent was placed area Patient will need to follow up with urologist as an outpatient, patient also aware that she needs to follow-up with Dr. Reina and she told me she knows to contact information and bedrest. Surgery team are planning for DVT/colonoscopy during this admission. She is hemodynamically stable. Her A. fib is controlled. After resumed her metoprolol at home dose of 100 mg 3 times a day Hemoglobin is 10.1 after some hematoma delusion. 12/09/2021 Patient looks comfortable, denies any abdominal pain, no more bleeding She is hemodynamically stable and heart rate is 70 and 80s in the morning, however due to the evening goes up to 90s and 100, that case we will start Cardizem 30 mg twice a day. Also she is on metoprolol the same dose hemoglobin is stable at 9.8. surgery team is planning to do EGD/Colonoscopy on 12/11/2019 Patient is still asymptomatic today. No abdominal pain, no more vomiting. No more depression, or somewhere else. Her urinary symptoms improvement. Her heart rate is better controlled after adding Cardizem 30 mg twice a day yesterday. We will keep monitoring. Hemoglobin 9 point vancomycin for stable. Surgery team are following the patient with the plan of EGD/colonoscopy tomorrow morning Objective - Vital Signs Vital signs: Vital Signs Temp 98.1 F 12/10/21 08:00 Pulse 93 12/10/21 08:00 Resp 16 12/10/21 08:00 BP 162/97 12/10/21 08:00 Pulse Ox 92 L 12/10/21 08:00 FiO2 Intake & Output 12/09/21 12/10/21 12/10/21 18:59 06:59 18:59 Intake Total 500 Output Total 450 Balance 500 -450 Intake: Oral 500 Output: Urine 450 Other: Voiding Method Toilet Toilet # Voids 2 4 - Exam GENERAL: The patient is alert and oriented x3, not in any acute distress. Well developed, well nourished. Patient is obese, generally weak HEENT: Pupils are round and equally reacting to light. EOMI. No scleral icterus. No conjunctival pallor. Normocephalic, atraumatic. No pharyngeal erythema. No thyromegaly. CARDIOVASCULAR: S1 and S2 present. No murmurs, rubs, or gallops. PULMONARY: Chest is clear to auscultation, no wheezing or crackles. ABDOMEN: Soft, nontender, nondistended, normoactive bowel sounds. No palpable organomegaly. MUSCULOSKELETAL: No joint swelling or deformity. EXTREMITIES: No cyanosis, clubbing, or pedal edema. NEUROLOGICAL: Gross neurological examination did not reveal any focal deficits. SKIN: No rashes. no petechiae. - Labs CBC & Chem 7: 12/10/21 04:22 12/10/21 04:22 Labs: Abnormal Lab Results - Last 24 Hours (Table) 12/09/21 12/10/21 12/10/21 Range/Units 23:50 04:22 04:22 RBC 3.33 L (4.10-5.20) X 10*6/uL Hgb 9.9 L (12.0-15.0) g/dL Hct 32.1 L (37.2-46.3) % MCHC 30.8 L (32.0-37.0) g/dL RDW 14.8 H (11.5-14.5) % Est GFR (CKD-EPI)AfAm 39.5 L (60.0-200.0) Est GFR (CKD-EPI)NonAf 34.1 L (60.0-200.0) Glucose 127 H (70-110) mg/dL Urine Protein Trace H (Negative) Urine Glucose (UA) Trace H (Negative) Urine Blood Moderate H (Negative) Urine RBC 48 H (0-5) /hpf Assessment and Plan Assessment: Severe right hydronephrosis, status post right ureteral stent placement on 12/07 Possible Acute GI bleed, patient plan for EGD/colonoscopy Mild bleeding from the friable cervix, follow-up outpatient Colonic diverticulosis Left adrenal mass, Unchanged. Patient informed and instructed to follow up with PCP Dr. Maddox in one week and she agrees Distended gallbladder with gallstones Chronic kidney disease, stage III History of atrial fibrillation on Eliquis History of CVA/TIA Hypertension Plan: This is a pleasant 76 years old female who presents with GI bleeding and hydronephrosis and abdominal pain. Also she has gallbladder disease and abdominal mass. Monitor hemoglobin, continue with Protonix, surgical team consult. Hold Eliquis for now. Urologist and senior it assistant on the case, Resume the dose of metoprolol 100 mg 3 times a day add cardizem Continue with normal saline EGD/Colonoscopy on Labs and medication were reviewed.. Continue same treatment. Continue with symptomatic treatment. Resume home medication. Monitor lytes and vitals. DVT and GI prophylaxis. Further recommendations depends on the clinical course of the patient DVT prophylaxis: hold Eliquis for GI bleed and possible need for procedure for example for hydronephrosis GI Prophylaxis: Ppi PT/OT: Pending Prognosis is guarded
[2021-12-11 04:49] LABS: HCT 35.6 % (34.0-46.0); HGB 11.2 gm/dL (11.4-16.0); Hypochromasia Slight; MCH 30.9 pg (25.0-35.0); MCHC 31.4 g/dL (31.0-37.0); MCV 98.3 fL (80.0-100.0); Mean Platelet Volume 7.7; Platelet Count 214 k/uL (150-450); RBC 3.62 m/uL (3.80-5.40); RDW 14.6 % (11.5-15.5); WBC 8.6 k/uL (3.8-10.6)
[2021-12-11 05:03] LABS: African American GFR (CKD) 37 (>60 ml/min/1.73 sqM); Anion Gap 7 mmol/L; Blood Urea Nitrogen 26 mg/dL (7-17); Calcium 9.2 mg/dL (8.4-10.2); Carbon Dioxide 26 mmol/L (22-30); Chloride 102 mmol/L (98-107); Glucose 125 mg/dL (74-99); Non-African American GFR(CKD) 32 (>60 ml/min/1.73 sqM); Potassium 3.8 mmol/L (3.5-5.1); Sodium 135 mmol/L (137-145)
[2021-12-11] MEDS: SODIUM CHLORIDE 0.9% 1,000 ML IV SCH ×2 (05:38→18:19)
[2021-12-11] MEDS: PANTOPRAZOLE 40 MG/10 ML VIAL IVP SCH (08:22)
[2021-12-11] MEDS: DILTIAZEM ORAL 30 MG TAB PO SCH ×2 (08:50→21:18)
[2021-12-11] MEDS: METOPROLOL TARTRATE 50 MG TAB PO SCH ×3 (08:50→21:18)
[2021-12-11] MEDS ORDERED: PROPOFOL 10 MG/ML 20 ML VIAL IV ONE (11:32)
[2021-12-11] MEDS ORDERED: IV FLUID CONTINUATION 1,000 ML IV ONE (11:32)
[2021-12-11] MEDS ORDERED: LIDOCAINE 2% INJ 20 MG/ML (2 ML VIAL) ONE (11:32)
--- NOTE | 2021-12-11 11:57 | P.OP ---
Date of Procedure: 12/11/21 Preoperative Diagnosis: Abdominal pain Postoperative Diagnosis: Antral gastritis Severe diverticulosis of sigmoid colon Procedure(s) Performed: EGD Colonoscopy Anesthesia: MAC Surgeon: Huy Stanford Pathology: other Condition: stable Disposition: floor Description of Procedure: The patient's placed on the endoscopy table in the lateral position. She received IV sedation. The gastro-/oropharynx passed in the esophagus and stomach. Scope was then placed through the pylorus. The first and second portion of duodenum appeared normal. The scope was then brought back the antrum this was mildly inflamed. This area was biopsied. The scope was then retroflexed and remainder stomach appeared normal. The GE junction was at 40 cm per the distal esophagus appeared mildly inflamed. The proximal esophagus appeared normal. The scope was then withdrawn. Next digital rectal exam was performed. This revealed some external hemorrhoids. The flexible colonoscope was then placed patient anus passed with colon. The scope was passed beyond the sigmoid colon sigmoid tortuosity valve. Scope was withdrawn. There is extensive diverticular changes and sigmoid colon. Scope was then brought back the rectum this appeared normal. Scope withdrawn for patient.
[2021-12-11] MEDS: APIXABAN 5 MG TAB PO SCH (21:18)
--- NOTE | 2021-12-11 22:05 | P.PN ---
Subjective This is a pleasant 76 years old female with past medical history of Atrial Fibrillation on Eliquis, CVA/TIA, GI Bleed, Hyperlipidemia, chronic GI bleed Presents because of abdominal pain, in the lower abdomen, patient states this pain has been going on for about a month, also for the last 3-4 days she's been having bleeding she thinks is up from her urine and vaginal opening, also there was suspicion of bleeding per rectum. She denies chest pain or dyspnea. No headache or dizziness. No dysuria. No diarrhea, she says her stool is hard. She denies smoking, alcohol or illicit drugs She was taking 2 pills of aspirin every day for the last few days because of her abdominal pain Also patient was on Eliquis for A. fib which is held now, I explained to the patient and she'll be at risk of stroke and she understands that. Patient hemodynamically stable, vitals are stable Hemoglobin is 11.4 which is within the reference range and INR is 1.0. Rest of CBC, INR is unremarkable. BNP is reviewed showing elevated creatinine at 2.0 CT of the abdomen and pelvis: Moderate to severe right hydronephrosis with no definite obstructive process. Distended gallbladder with multiple stones. Left adrenal gland mass, and change, colonic diverticulosis 12/07/2021 Patient was awakened alert looks calm, she underwent operative procedure with the urologist and economic developer where right ureteral stent was placed today. Also she has evidence with some small bleeding from friable cervix and economic developer recommended to follow-up with her Dr. Reina for possible radiotherapy if bleeding continues from the cervix and endometrium Today patient developed A. fib and RVR, her metoprolol was lowered the dose on admission for hypotension to 50 mg twice a day, today increased back to 100 mg twice a day. We will keep monitoring. Keep anticoagulation on hold because of the bleeding episodes Surgical team are planning for EGD/, prostate at certain point 12/08/2021 Patient was sitting in chair looks much better compared to the last 2 days, more comfortable, she is happy her bleeding hasn't stopped and she denies any abdomin al pain or any other symptoms Her only complaint was increased frequency of urination, I explained to her this could be sequelae of her procedure where right ureteral stent was placed area Patient will need to follow up with urologist as an outpatient, patient also aware that she needs to follow-up with Dr. Reina and she told me she knows to contact information and bedrest. Surgery team are planning for DVT/colonoscopy during this admission. She is hemodynamically stable. Her A. fib is controlled. After resumed her metoprolol at home dose of 100 mg 3 times a day Hemoglobin is 10.1 after some hematoma delusion. 12/09/2021 Patient looks comfortable, denies any abdominal pain, no more bleeding She is hemodynamically stable and heart rate is 70 and 80s in the morning, however due to the evening goes up to 90s and 100, that case we will start Cardizem 30 mg twice a day. Also she is on metoprolol the same dose hemoglobin is stable at 9.8. surgery team is planning to do EGD/Colonoscopy on 12/10/2021 Patient is still asymptomatic today. No abdominal pain, no more vomiting. No more depression, or somewhere else. Her urinary symptoms improvement. Her heart rate is better controlled after adding Cardizem 30 mg twice a day yesterday. We will keep monitoring. Hemoglobin 9 point vancomycin for stable. Surgery team are following the patient with the plan of EGD/colonoscopy tomorrow morning 12/11/2021 Patient clinically looks improving and stable, no more episodes of bleeding. She is generally doing well. Vitals are stable. Hemoglobin is also stable and today regarding his 11.2. Creatinine improved down to 1.5. She is status post stent placement in the right ureter. Today patient went for EGD and colonoscopy which basically was unremarkable for a cause of bleeding, patient was cleared by surgery team to resume Eliquis per staff I discussed with the pharmacist Ari about the dose of Eliquis and it should be 5 mg given her age less than 79 and weight more than 60 kg Patient's heart rate blood pressure is stable on metoprolol and Cardizem Objective - Vital Signs Vital signs: Vital Signs Temp 98.0 F 12/11/21 07:58 Pulse 90 12/11/21 07:58 Resp 18 12/11/21 07:58 BP 123/68 12/11/21 07:58 Pulse Ox 97 12/11/21 07:58 FiO2 Intake & Output 12/10/21 12/11/21 12/11/21 18:59 06:59 18:59 Intake Total 1999 100 Balance 1999 100 Intake: IV 100 Oral 2000 Other: Voiding Method Toilet Toilet # Voids 2 # Bowel Movements 4 - Exam GENERAL: The patient is alert and oriented x3, not in any acute distress. Well developed, well nourished. Patient is obese, generally weak HEENT: Pupils are round and equally reacting to light. EOMI. No scleral icterus. No conjunctival pallor. Normocephalic, atraumatic. No pharyngeal erythema. No thyromegaly. CARDIOVASCULAR: S1 and S2 present. No murmurs, rubs, or gallops. PULMONARY: Chest is clear to auscultation, no wheezing or crackles. ABDOMEN: Soft, nontender, nondistended, normoactive bowel sounds. No palpable organomegaly. MUSCULOSKELETAL: No joint swelling or deformity. EXTREMITIES: No cyanosis, clubbing, or pedal edema. NEUROLOGICAL: Gross neurological examination did not reveal any focal deficits. SKIN: No rashes. no petechiae. - Labs CBC & Chem 7: 12/11/21 04:18 12/11/21 04:15 Labs: Abnormal Lab Results - Last 24 Hours (Table) 12/11/21 12/11/21 Range/Units 04:15 04:18 RBC 3.62 L (3.80-5.40) m/uL Hgb 11.2 L (11.4-16.0) gm/dL Sodium 135 L (137-145) mmol/L BUN 26 H (7-17) mg/dL Creatinine 1.55 H (0.52-1.04) mg/dL Glucose 125 H (74-99) mg/dL Assessment and Plan Assessment: Severe right hydronephrosis, status post right ureteral stent placement on 12/07 Possible Acute GI bleed, S/p EGD/colonoscopy: No source of bleeding Mild bleeding from the friable cervix, follow-up outpatient, she has appointment with Dr. Reina on 12/16, patient informed and she agrees Colonic diverticulosis Left adrenal mass, Unchanged. Patient informed and instructed to follow up with PCP Dr. Maddox in one week and she agrees Distended gallbladder with gallstones Chronic kidney disease, stage III History of atrial fibrillation on Eliquis History of CVA/TIA Hypertension Plan: This is a pleasant 76 years old female who presents with GI bleeding and hydronephrosis and abdominal pain. Also she has gallbladder disease and abdominal mass. Resume Eliquis, continue with Protonix, surgical team consult. Urologist and economic developer on the case, Resume the dose of metoprolol 100 mg 3 times a day add cardizem 30 mg twice a day Labs and medication were reviewed.. Continue same treatment. Continue with symptomatic treatment. Resume home medication. Monitor lytes and vitals. DVT and GI prophylaxis. Further recommendations depends on the clinical course of the patient DVT prophylaxis: hold Eliquis for GI bleed and possible need for procedure for example for hydronephrosis GI Prophylaxis: Ppi PT/OT: Pending Possible discharge in 24-48 hours
[2021-12-12] MEDS: PANTOPRAZOLE 40 MG/10 ML VIAL IVP SCH (08:33)
[2021-12-12 08:54] LABS: Basophils # (A) 0.03 X 10*3/uL (0.00-0.10); Basophils % (A) 0.5 %; Eosinophils # (A) 0.21 X 10*3/uL (0.04-0.35); Eosinophils % (A) 3.2 %; HCT 31.4 % (37.2-46.3); Immature Grans, Automated 0.5 %; Lymphocytes % (A) 10.5 %; MCH 30.3 pg (27.0-32.0); MCHC 31.8 g/dL (32.0-37.0); MCV 95.2 fL (80.0-97.0); Mean Platelet Volume 10.4 fL (9.5-12.2); Monocytes # (A) 0.57 X 10*3/uL (0.20-1.00); Monocytes % (A) 8.6 %; NRBC Per 100 WBC 0 /100 WBCS (0.0-0.0); Neutrophils # (A) 5.12 X 10*3/uL (1.80-7.70); Neutrophils % (A) 76.7 %; Platelet Count 189 X 10*3/uL (140-440); RDW 14.6 % (11.5-14.5); WBC 6.66 X 10*3/uL (4.50-10.00)
[2021-12-12] MEDS: APIXABAN 5 MG TAB PO SCH ×2 (08:56→22:37)
[2021-12-12] MEDS: METOPROLOL TARTRATE 50 MG TAB PO SCH ×3 (08:56→22:08)
[2021-12-12] MEDS: DILTIAZEM ORAL 30 MG TAB PO SCH ×2 (08:56→22:07)
--- NOTE | 2021-12-12 10:39 | P.PN ---
Progress Note - Text Progress Note Date: 12/12/21 Patient's hemoglobin is stable. Her hematomas 10. She underwent endoscopy yesterday. On exam vital signs are stable. Abdomen soft. Anemia. Patient will be observed.
[2021-12-12 13:09] VITALS: BMI 30.8
[2021-12-12] MEDS: SODIUM CHLORIDE 0.9% 1,000 ML IV SCH ×2 (15:29→23:57)
--- NOTE | 2021-12-12 19:20 | P.PN ---
Subjective This is a pleasant 76 years old female with past medical history of Atrial Fibrillation on Eliquis, CVA/TIA, GI Bleed, Hyperlipidemia, chronic GI bleed Presents because of abdominal pain, in the lower abdomen, patient states this pain has been going on for about a month, also for the last 3-4 days she's been having bleeding she thinks is up from her urine and vaginal opening, also there was suspicion of bleeding per rectum. She denies chest pain or dyspnea. No headache or dizziness. No dysuria. No diarrhea, she says her stool is hard. She denies smoking, alcohol or illicit drugs She was taking 2 pills of aspirin every day for the last few days because of her abdominal pain Also patient was on Eliquis for A. fib which is held now, I explained to the patient and she'll be at risk of stroke and she understands that. Patient hemodynamically stable, vitals are stable Hemoglobin is 11.4 which is within the reference range and INR is 1.0. Rest of CBC, INR is unremarkable. BNP is reviewed showing elevated creatinine at 2.0 CT of the abdomen and pelvis: Moderate to severe right hydronephrosis with no definite obstructive process. Distended gallbladder with multiple stones. Left adrenal gland mass, and change, colonic diverticulosis 12/07/2021 Patient was awakened alert looks calm, she underwent operative procedure with the urologist and chainstitch felled seam operator where right ureteral stent was placed today. Also she has evidence with some small bleeding from friable cervix and chainstitch felled seam operator recommended to follow-up with her Dr. Reina for possible radiotherapy if bleeding continues from the cervix and endometrium Today patient developed A. fib and RVR, her metoprolol was lowered the dose on admission for hypotension to 50 mg twice a day, today increased back to 100 mg twice a day. We will keep monitoring. Keep anticoagulation on hold because of the bleeding episodes Surgical team are planning for EGD/, prostate at certain point 12/08/2021 Patient was sitting in chair looks much better compared to the last 2 days, more comfortable, she is happy her bleeding hasn't stopped and she denies any abdomin al pain or any other symptoms Her only complaint was increased frequency of urination, I explained to her this could be sequelae of her procedure where right ureteral stent was placed area Patient will need to follow up with urologist as an outpatient, patient also aware that she needs to follow-up with Dr. Reina and she told me she knows to contact information and bedrest. Surgery team are planning for DVT/colonoscopy during this admission. She is hemodynamically stable. Her A. fib is controlled. After resumed her metoprolol at home dose of 100 mg 3 times a day Hemoglobin is 10.1 after some hematoma delusion. 12/09/2021 Patient looks comfortable, denies any abdominal pain, no more bleeding She is hemodynamically stable and heart rate is 70 and 80s in the morning, however due to the evening goes up to 90s and 100, that case we will start Cardizem 30 mg twice a day. Also she is on metoprolol the same dose hemoglobin is stable at 9.8. surgery team is planning to do EGD/Colonoscopy on 12/10/2021 Patient is still asymptomatic today. No abdominal pain, no more vomiting. No more depression, or somewhere else. Her urinary symptoms improvement. Her heart rate is better controlled after adding Cardizem 30 mg twice a day yesterday. We will keep monitoring. Hemoglobin 9 point vancomycin for stable. Surgery team are following the patient with the plan of EGD/colonoscopy tomorrow morning 12/11/2021 Patient clinically looks improving and stable, no more episodes of bleeding. She is generally doing well. Vitals are stable. Hemoglobin is also stable and today regarding his 11.2. Creatinine improved down to 1.5. She is status post stent placement in the right ureter. Today patient went for EGD and colonoscopy which basically was unremarkable for a cause of bleeding, patient was cleared by surgery team to resume Eliquis per staff I discussed with the pharmacist Ari about the dose of Eliquis and it should be 5 mg given her age less than 79 and weight more than 60 kg Patient's heart rate blood pressure is stable on metoprolol and Cardizem 12/12/2021 patient clinically was doing well today this morning, she was fully awake oriented, denied any pain, denying any bleeding after started on Eliquis last night. Also vitals were stable and hemoglobin 10.0 which is stable as well Surgery team cleared her for discharge. Also try to contact Dr. David beckforde was not available. Prior to discharge patient stopped having was enough blood from her vagina as pe r Bedside nurse before discharge was held and he going to monitor her for today and check hemoglobin tomorrow Objective - Vital Signs Vital signs: Vital Signs Temp 97.5 F L 12/12/21 14:00 Pulse 74 12/12/21 14:00 Resp 18 12/12/21 14:00 BP 130/66 12/12/21 14:00 Pulse Ox 96 12/12/21 14:00 FiO2 Intake & Output 12/12/21 12/12/21 12/13/21 06:59 18:59 06:59 Intake Total 1080 Balance 1080 Weight 94.801 kg Intake: Oral 1080 Other: Voiding Method Toilet Toilet # Voids 3 - Exam GENERAL: The patient is alert and oriented x3, not in any acute distress. Well developed, well nourished. Patient is obese, generally weak HEENT: Pupils are round and equally reacting to light. EOMI. No scleral icterus. No conjunctival pallor. Normocephalic, atraumatic. No pharyngeal erythema. No thyromegaly. CARDIOVASCULAR: S1 and S2 present. No murmurs, rubs, or gallops. PULMONARY: Chest is clear to auscultation, no wheezing or crackles. ABDOMEN: Soft, nontender, nondistended, normoactive bowel sounds. No palpable organomegaly. MUSCULOSKELETAL: No joint swelling or deformity. EXTREMITIES: No cyanosis, clubbing, or pedal edema. NEUROLOGICAL: Gross neurological examination did not reveal any focal deficits. SKIN: No rashes. no petechiae. - Labs CBC & Chem 7: 12/12/21 04:32 12/11/21 04:15 Labs: Abnormal Lab Results - Last 24 Hours (Table) 12/12/21 Range/Units 04:32 RBC 3.30 L (4.10-5.20) X 10*6/uL Hgb 10.0 L (12.0-15.0) g/dL Hct 31.4 L (37.2-46.3) % MCHC 31.8 L (32.0-37.0) g/dL RDW 14.6 H (11.5-14.5) % Lymphocytes # 0.70 L (0.90-5.00) X 10*3/uL Assessment and Plan Assessment: Severe right hydronephrosis, status post right ureteral stent placement on 12/07 Possible Acute GI bleed, S/p EGD/colonoscopy: No source of bleeding Mild bleeding from the friable cervix, follow-up outpatient, she has appointment with Dr. Reina on 12/16, patient informed and she agrees Colonic diverticulosis Left adrenal mass, Unchanged. Patient informed and instructed to follow up with PCP Dr. Maddox in one week and she agrees Distended gallbladder with gallstones Chronic kidney disease, stage III History of atrial fibrillation on Eliquis History of CVA/TIA Hypertension Plan: This is a pleasant 76 years old female who presents with GI bleeding and hydro nephrosis and abdominal pain. Also she has gallbladder disease and abdominal mass. Resume Eliquis, continue with Protonix, surgical team consult has cleared the patient for this Urologist and chainstitch felled seam operator on the case, also to the patient for discharge Resume the dose of metoprolol 100 mg 3 times a day and continue with Cardizem Monitor hemoglobin tomorrow and any sign of bleeding Labs and medication were reviewed.. Continue same treatment. Continue with symptomatic treatment. Resume home medication. Monitor lytes and vitals. DVT and GI prophylaxis. Further recommendations depends on the clinical course of the patient DVT prophylaxis: Resume Eliquis GI Prophylaxis: Ppi PT/OT: Home health care versus rehab
[2021-12-12] MEDS: MORPHINE SULFATE 2 MG/ML SYRINGE IVP PRN (22:42)
[2021-12-13] MEDS: MORPHINE SULFATE 2 MG/ML SYRINGE IVP PRN ×3 (05:40→19:23)
[2021-12-13] MEDS: METOPROLOL TARTRATE 50 MG TAB PO SCH ×3 (08:34→21:02)
[2021-12-13] MEDS: PANTOPRAZOLE 40 MG/10 ML VIAL IVP SCH (08:35)
[2021-12-13] MEDS: DILTIAZEM ORAL 30 MG TAB PO SCH ×2 (08:35→21:02)
[2021-12-13] MEDS: SODIUM CHLORIDE 0.9% 1,000 ML IV SCH (08:35)
--- NOTE | 2021-12-13 11:30 | P.PN ---
Progress Note - Text Progress Note Date: 12/13/21 Patient's hemoglobin remained stable. The last involvement 7.0. There is no evidence of GI bleed. Patient okay receive supportive care.
[2021-12-13 11:33] LABS: Basophils # (A) 0.01 X 10*3/uL (0.00-0.10); Basophils % (A) 0.2 %; Eosinophils # (A) 0.21 X 10*3/uL (0.04-0.35); Eosinophils % (A) 3.2 %; HCT 31.2 % (37.2-46.3); HGB 9.3 g/dL (12.0-15.0); Immature Grans, Automated 0.5 %; Lymphocytes # (A) 0.75 X 10*3/uL (0.90-5.00); Lymphocytes % (A) 11.4 %; MCH 29.1 pg (27.0-32.0); MCHC 29.8 g/dL (32.0-37.0); MCV 97.5 fL (80.0-97.0); Mean Platelet Volume 10.6 fL (9.5-12.2); Monocytes # (A) 0.67 X 10*3/uL (0.20-1.00); Monocytes % (A) 10.2 %; NRBC Per 100 WBC 0 /100 WBCS (0.0-0.0); Neutrophils # (A) 4.89 X 10*3/uL (1.80-7.70); Neutrophils % (A) 74.5 %; Platelet Count 184 X 10*3/uL (140-440); RDW 14.8 % (11.5-14.5); WBC 6.56 X 10*3/uL (4.50-10.00)
--- NOTE | 2021-12-13 18:28 | P.PN ---
Subjective This is a pleasant 76 years old female with past medical history of Atrial Fibrillation on Eliquis, CVA/TIA, GI Bleed, Hyperlipidemia, chronic GI bleed Presents because of abdominal pain, in the lower abdomen, patient states this pain has been going on for about a month, also for the last 3-4 days she's been having bleeding she thinks is up from her urine and vaginal opening, also there was suspicion of bleeding per rectum. She denies chest pain or dyspnea. No headache or dizziness. No dysuria. No diarrhea, she says her stool is hard. She denies smoking, alcohol or illicit drugs She was taking 2 pills of aspirin every day for the last few days because of her abdominal pain Also patient was on Eliquis for A. fib which is held now, I explained to the patient and she'll be at risk of stroke and she understands that. Patient hemodynamically stable, vitals are stable Hemoglobin is 11.4 which is within the reference range and INR is 1.0. Rest of CBC, INR is unremarkable. BNP is reviewed showing elevated creatinine at 2.0 CT of the abdomen and pelvis: Moderate to severe right hydronephrosis with no definite obstructive process. Distended gallbladder with multiple stones. Left adrenal gland mass, and change, colonic diverticulosis 12/07/2021 Patient was awakened alert looks calm, she underwent operative procedure with the urologist and laboratory coordinator where right ureteral stent was placed today. Also she has evidence with some small bleeding from friable cervix and laboratory coordinator recommended to follow-up with her Dr. Reina for possible radiotherapy if bleeding continues from the cervix and endometrium Today patient developed A. fib and RVR, her metoprolol was lowered the dose on admission for hypotension to 50 mg twice a day, today increased back to 100 mg twice a day. We will keep monitoring. Keep anticoagulation on hold because of the bleeding episodes Surgical team are planning for EGD/, prostate at certain point 12/08/2021 Patient was sitting in chair looks much better compared to the last 2 days, more comfortable, she is happy her bleeding hasn't stopped and she denies any abdomin al pain or any other symptoms Her only complaint was increased frequency of urination, I explained to her this could be sequelae of her procedure where right ureteral stent was placed area Patient will need to follow up with urologist as an outpatient, patient also aware that she needs to follow-up with Dr. Reina and she told me she knows to contact information and bedrest. Surgery team are planning for DVT/colonoscopy during this admission. She is hemodynamically stable. Her A. fib is controlled. After resumed her metoprolol at home dose of 100 mg 3 times a day Hemoglobin is 10.1 after some hematoma delusion. 12/09/2021 Patient looks comfortable, denies any abdominal pain, no more bleeding She is hemodynamically stable and heart rate is 70 and 80s in the morning, however due to the evening goes up to 90s and 100, that case we will start Cardizem 30 mg twice a day. Also she is on metoprolol the same dose hemoglobin is stable at 9.8. surgery team is planning to do EGD/Colonoscopy on 12/10/2021 Patient is still asymptomatic today. No abdominal pain, no more vomiting. No more depression, or somewhere else. Her urinary symptoms improvement. Her heart rate is better controlled after adding Cardizem 30 mg twice a day yesterday. We will keep monitoring. Hemoglobin 9 point vancomycin for stable. Surgery team are following the patient with the plan of EGD/colonoscopy tomorrow morning 12/11/2021 Patient clinically looks improving and stable, no more episodes of bleeding. She is generally doing well. Vitals are stable. Hemoglobin is also stable and today regarding his 11.2. Creatinine improved down to 1.5. She is status post stent placement in the right ureter. Today patient went for EGD and colonoscopy which basically was unremarkable for a cause of bleeding, patient was cleared by surgery team to resume Eliquis per staff I discussed with the pharmacist Ari about the dose of Eliquis and it should be 5 mg given her age less than 79 and weight more than 60 kg Patient's heart rate blood pressure is stable on metoprolol and Cardizem 12/12/2021 patient clinically was doing well today this morning, she was fully awake oriented, denied any pain, denying any bleeding after started on Eliquis last night. Also vitals were stable and hemoglobin 10.0 which is stable as well Surgery team cleared her for discharge. Also try to contact Dr. David beckforde was not available. Prior to discharge patient stopped having was enough blood from her vagina as pe r Bedside nurse before discharge was held and he going to monitor her for today and check hemoglobin tomorrow 12/13/2021 Patient came with vaginal bleeding while on Eliquis which was held on admission and Dr. Hernandez evaluated her on admission. She had obstructive uropathy and right hydronephrosis and urologist placed a stent in her right ureter, which is unlikely to be the source of bleeding. Also Dr. Friend and did EGD and colonoscopy which were basically negative for source of bleeding. 2 days ago all consultants cleared the pt to resume eliquis and yesterday she was planeed to be discharged home , but she bleed again from her vagina and we had to hold eliquis again, today her Hb is stable with only slgiht drop to 9.3 , no more evidence of vaginal bleeding but her bp is stable, she still though complains from lower abdominal pain , improving she has an appointment with to do radiotherapy to her cervix for her on this coming wednesday at 8 am , she is a known case of endomaterial cancer risk of bleding and thrombosis is explained to her in details and she is aware and agreeable to the plan Objective - Vital Signs Vital signs: Vital Signs Temp 98.1 F 12/13/21 08:00 Pulse 64 12/13/21 08:00 Resp 14 12/13/21 08:00 BP 137/69 12/13/21 08:00 Pulse Ox 94 L 12/13/21 08:00 FiO2 Intake & Output 12/12/21 12/13/21 12/13/21 18:59 06:59 18:59 Intake Total 1080 Balance 1080 Weight 94.801 kg Intake: Oral 1080 Other: Voiding Method Toilet Toilet Toilet # Voids 3 3 1 - Exam GENERAL: The patient is alert and oriented x3, not in any acute distress. Well developed, well nourished. Patient is obese, generally weak HEENT: Pupils are round and equally reacting to light. EOMI. No scleral icterus. No conjunctival pallor. Normocephalic, atraumatic. No pharyngeal erythema. No thyromegaly. CARDIOVASCULAR: S1 and S2 present. No murmurs, rubs, or gallops. PULMONARY: Chest is clear to auscultation, no wheezing or crackles. ABDOMEN: Soft, nontender, nondistended, normoactive bowel sounds. No palpable o rganomegaly. MUSCULOSKELETAL: No joint swelling or deformity. EXTREMITIES: No cyanosis, clubbing, or pedal edema. NEUROLOGICAL: Gross neurological examination did not reveal any focal deficits. SKIN: No rashes. no petechiae. - Labs CBC & Chem 7: 12/13/21 06:59 12/11/21 04:15 Labs: Abnormal Lab Results - Last 24 Hours (Table) 12/13/21 Range/Units 06:59 RBC 3.20 L (4.10-5.20) X 10*6/uL Hgb 9.3 L (12.0-15.0) g/dL Hct 31.2 L (37.2-46.3) % MCV 97.5 H (80.0-97.0) fL MCHC 29.8 L (32.0-37.0) g/dL RDW 14.8 H (11.5-14.5) % Lymphocytes # 0.75 L (0.90-5.00) X 10*3/uL Assessment and Plan Assessment: Severe right hydronephrosis, status post right ureteral stent placement on 12/07 Possible Acute GI bleed, S/p EGD/colonoscopy: No source of bleeding recurrent bleeding from the friable cervix while on eliqusis, follow-up outpatient, she has appointment with Dr. Reina on 12/16, patient informed and she agrees Colonic diverticulosis Left adrenal mass, Unchanged. Patient informed and instructed to follow up with PCP Dr. Maddox in one week and she agrees Distended gallbladder with gallstones Chronic kidney disease, stage III History of atrial fibrillation on Eliquis History of CVA/TIA Hypertension Plan: This is a pleasant 76 years old female who presents with GI bleeding and hydronephrosis and abdominal pain. Also she has gallbladder disease and abdominal mass. keep holding Eliquis, keep mentoring bp, she remains on gentle hydration continue with Protonix, surgical team consult has cleared the patient for this Urologist and laboratory coordinator on the case who cleared the patient for discharge Resume the dose of metoprolol 100 mg 3 times a day and continue with Cardizem 30 mg bid for her a fib Monitor hemoglobin tomorrow and any sign of bleeding Labs and medication were reviewed.. Continue same treatment. Continue with symptomatic treatment. Resume home medication. Monitor lytes and vitals. DVT and GI prophylaxis. Further recommendations depends on the clinical course of the patient DVT prophylaxis: hold Eliquis GI Prophylaxis: Ppi PT/OT: Home health care versus rehab
[2021-12-13 21:40] LABS: HCT 32.7 % (34.0-46.0); HGB 10.6 gm/dL (11.4-16.0); Hypochromasia Slight; MCH 31.5 pg (25.0-35.0); MCHC 32.4 g/dL (31.0-37.0); MCV 97.4 fL (80.0-100.0); Mean Platelet Volume 7.8; Platelet Count 184 k/uL (150-450); RBC 3.36 m/uL (3.80-5.40); RDW 14.8 % (11.5-15.5); WBC 9.5 k/uL (3.8-10.6)
[2021-12-14] MEDS: MORPHINE SULFATE 2 MG/ML SYRINGE IVP PRN (02:32)
[2021-12-14] MEDS: SODIUM CHLORIDE 0.9% 1,000 ML IV SCH (07:37)
[2021-12-14] MEDS: PANTOPRAZOLE 40 MG/10 ML VIAL IVP SCH (07:41)
[2021-12-14] MEDS: DILTIAZEM ORAL 30 MG TAB PO SCH (07:41)
[2021-12-14] MEDS: METOPROLOL TARTRATE 50 MG TAB PO SCH (07:41)
[2021-12-14 08:45] VITALS: BP 118/67; PULSE 89; RESP 14; TEMP 97.7
[2021-12-14 10:06] LABS: Basophils # (A) 0.02 X 10*3/uL (0.00-0.10); Basophils % (A) 0.2 %; Eosinophils # (A) 0.07 X 10*3/uL (0.04-0.35); Eosinophils % (A) 0.8 %; HCT 29.9 % (37.2-46.3); HGB 9.2 g/dL (12.0-15.0); Immature Grans, Automated 0.2 %; Lymphocytes # (A) 0.88 X 10*3/uL (0.90-5.00); Lymphocytes % (A) 10.4 %; MCH 29.7 pg (27.0-32.0); MCHC 30.8 g/dL (32.0-37.0); MCV 96.5 fL (80.0-97.0); Mean Platelet Volume 10.6 fL (9.5-12.2); Monocytes # (A) 0.77 X 10*3/uL (0.20-1.00); Monocytes % (A) 9.1 %; NRBC Per 100 WBC 0 /100 WBCS (0.0-0.0); Neutrophils # (A) 6.74 X 10*3/uL (1.80-7.70); Neutrophils % (A) 79.3 %; Platelet Count 174 X 10*3/uL (140-440); RDW 14.7 % (11.5-14.5)
--- NOTE | 2021-12-14 10:19 | P.PN ---
Progress Note - Text Progress Note Date: 12/14/21 Patient's hemoglobin is stable and 0.2. She shows no signs of GI bleed. On exam vital signs are stable. Abdomen soft. Patient will receive supportive care. No surgical intervention is planned.
[2021-12-14 10:59] LABS: African American GFR (CKD) 39.8 (60.0-200.0); Anion Gap 8.6 mmol/L (10.00-18.00); BUN/Creat Ratio 15.41 Ratio (12.00-20.00); Blood Urea Nitrogen 22.5 mg/dL (9.0-27.0); Calcium 8.8 mg/dL (8.7-10.3); Carbon Dioxide 25.4 mmol/L (20.0-27.5); Non-African American GFR(CKD) 34.4 (60.0-200.0); Potassium 3.9 mmol/L (3.5-5.5)
--- NOTE | 2021-12-14 14:56 | P.DS ---
Providers Date of admission: 12/06/21 05:58 Expected date of discharge: 12/14/21 Attending physician: Biju Sanabria Consults: 12/06/21 05:58 Consult Physician Routine Consulting Provider: Emeka Roberto Consult Reason/Comments: Hydronephrosis Do you want consulting provider notified?: Yes 12/06/21 07:51 Consult Physician Urgent Consulting Provider: Huy Stanford Consult Reason/Comments: adrenal mass, distended GB, GI bleed Do you want consulting provider notified?: Yes 12/06/21 11:23 Consult Physician Urgent Consulting Provider: Zohreh Hernandez Consult Reason/Comments: vaginal bleeding Do you want consulting provider notified?: Yes Primary care physician: [facility] Hospital Course: Hospital course: This is a pleasant 76 years old female with past medical history of Atrial Fibrillation on Eliquis, CVA/TIA, GI Bleed, Hyperlipidemia, chronic GI bleed Presents because of abdominal pain, in the lower abdomen, patient states this pain has been going on for about a month, also for the last 3-4 days she's been having bleeding she thinks is up from her urine and vaginal opening, also there was suspicion of bleeding per rectum. She denies chest pain or dyspnea. No headache or dizziness. No dysuria. No diarrhea, she says her stool is hard. She denies smoking, alcohol or illicit drugs She was taking 2 pills of aspirin every day for the last few days because of her abdominal pain Also patient was on Eliquis for A. fib which is held now, I explained to the patient and she'll be at risk of stroke and she understands that. Patient hemodynamically stable, vitals are stable Hemoglobin is 11.4 which is within the reference range and INR is 1.0. Rest of CBC, INR is unremarkable. BNP is reviewed showing elevated creatinine at 2.0 CT of the abdomen and pelvis: Moderate to severe right hydronephrosis with no definite obstructive process. Distended gallbladder with multiple stones. Left adrenal gland mass, and change, colonic diverticulosis 12/07/2021 Patient was awakened alert looks calm, she underwent operative procedure with the urologist and holter technician where right ureteral stent was placed today. Also she has evidence with some small bleeding from friable cervix and holter technician recommended to follow-up with her Dr. Reina for possible radiotherapy if bleeding continues from the cervix and endometrium Today patient developed A. fib and RVR, her metoprolol was lowered the dose on admission for hypotension to 50 mg twice a day, today increased back to 100 mg twice a day. We will keep monitoring. Keep anticoagulation on hold because of the bleeding episodes Surgical team are planning for EGD/, prostate at certain point 12/08/2021 Patient was sitting in chair looks much better compared to the last 2 days, more comfortable, she is happy her bleeding hasn't stopped and she denies any abdominal pain or any other symptoms Her only complaint was increased frequency of urination, I explained to her this could be sequelae of her procedure where right ureteral stent was placed area Patient will need to follow up with urologist as an outpatient, patient also aware that she needs to follow-up with Dr. Reina and she told me she knows to contact information and bedrest. Surgery team are planning for DVT/colonoscopy during this admission. She is hemodynamically stable. Her A. fib is controlled. After resumed her metoprolol at home dose of 100 mg 3 times a day Hemoglobin is 10.1 after some hematoma delusion. 12/09/2021 Patient looks comfortable, denies any abdominal pain, no more bleeding She is hemodynamically stable and heart rate is 70 and 80s in the morning, however due to the evening goes up to 90s and 100, that case we will start Cardizem 30 mg twice a day. Also she is on metoprolol the same dose hemoglobin is stable at 9.8. surgery team is planning to do EGD/Colonoscopy on 12/10/2021 Patient is still asymptomatic today. No abdominal pain, no more vomiting. No more depression, or somewhere else. Her urinary symptoms improvement. Her heart rate is better controlled after adding Cardizem 30 mg twice a day yesterday. We will keep monitoring. Hemoglobin 9 point vancomycin for stable. Surgery team are following the patient with the plan of EGD/colonoscopy tomorrow morning 12/11/2021 Patient clinically looks improving and stable, no more episodes of bleeding. She is generally doing well. Vitals are stable. Hemoglobin is also stable and today regarding his 11.2. Creatinine improved down to 1.5. She is status post stent placement in the right ureter. Today patient went for EGD and colonoscopy which basically was unremarkable for a cause of bleeding, patient was cleared by surgery team to resume Eliquis per staff I discussed with the pharmacist Ari about the dose of Eliquis and it should be 5 mg given her age less than 79 and weight more than 60 kg Patient's heart rate blood pressure is stable on metoprolol and Cardizem 12/12/2021 patient clinically was doing well today this morning, she was fully awake oriented, denied any pain, denying any bleeding after started on Eliquis last night. Also vitals were stable and hemoglobin 10.0 which is stable as well Surgery team cleared her for discharge. Also try to contact Dr. Hernandez whome was not available. Prior to discharge patient stopped having was enough blood from her vagina as per Bedside nurse before discharge was held and he going to monitor her for today and check hemoglobin tomorrow 12/13/2021 Patient came with vaginal bleeding while on Eliquis which was held on admission and Dr. Hernandez evaluated her on admission. She had obstructive uropathy and right hydronephrosis and urologist placed a stent in her right ureter, which is unlikely to be the source of bleeding. Also Dr. Friend and did EGD and colonoscopy which were basically negative for source of bleeding. 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 12/14/2021: I assumed care of patient today. Because of some spotting yesterday eliquis again was held. Patient is due for radiation treatment on coming Wednesday by Dr. Reina. Patient is been eating well. Discussed with patient. Hold off eliquis to Wednesday. Pros and cons discussed. Patient agreeable to hold off eliquis. Questions answered. Also Follow-up with Dr. roberto, Dr. Hernandez. Discussion and discharge planning more than 35 minutes On examination: 97.7, 89, 14, 120/67, 94% room air Lungs: Clear Abdomen: Soft Psych: Alert and oriented 3. INVESTIGATIONS, reviewed in the clinical context: White count 8.5 hemoglobin 9.2 platelets 174 percussion 3.9 creatinine 1.5 Assessment and plan: -Acute lower GI. bleed Unsuccessful colonoscopy - Due to a tortuous colon. Barium enema showing sigmoid colon stenosis. Outpatient colonoscopy. -Colonic stenotic mass Outpatient biopsy by , from [facility] coordinated by our oncologist -Severe colonic diverticulosis -Recent vaginal bleeding in a patient with known uterine adenocarcinoma. 4. Patient did receive radiation treatment 2018. Apparently patient was lost to follow-up. Patient to follow for radiation treatment by Dr. Willie Cadena -Chronic kidney disease stage III likely nephrosclerosis Creatinine 1.5 in July 05 -Chronic congestive heart failure from diastolic dysfunction EF 55-60 % Follow clinically. -CAD with a history of stent Lopressor 100 mg 3 times a day -Persistent atrial fibrillation, rate controlled Lopressor 100 mg 3 times a day Eliquis held until outpatient follow-up -Choledocholithiasis, asymptomatic -Moderate right-sided hydronephrosis and hydroureter Ureteral stent placed by Dr. Simmons Disposition: Home Patient Condition at Discharge: Fair Plan - Discharge Summary Discharge Rx Participant: No New Discharge Prescriptions: New Diltiazem Oral [Cardizem*] 30 mg PO BID #60 tab Omeprazole 40 mg PO DAILY #30 cap Sennosides [Senokot] 8.6 mg PO BID PRN 5 Days #10 tab PRN Reason: Constipation Continue Apixaban [Eliquis] 5 mg PO BID #60 tab Metoprolol Tartrate [Lopressor] 100 mg PO TID Albuterol Inhaler [Ventolin Hfa Inhaler] 2 puff INHALATION RT-Q4H PRN PRN Reason: Shortness Of Breath Discontinued Furosemide [Lasix] 20 mg PO DAILY PRN PRN Reason: Edema Discharge Medication List Apixaban [Eliquis] 5 mg PO BID #60 tab 09/02/18 [Rx] Albuterol Inhaler [Ventolin Hfa Inhaler] 2 puff INHALATION RT-Q4H PRN 10/19/21 [History] Metoprolol Tartrate [Lopressor] 100 mg PO TID 10/19/21 [History] Diltiazem Oral [Cardizem*] 30 mg PO BID #60 tab 12/12/21 [Rx] Omeprazole 40 mg PO DAILY #30 cap 12/12/21 [Rx] Sennosides [Senokot] 8.6 mg PO BID PRN 5 Days #10 tab 12/12/21 [Rx] Follow up Appointment(s)/Referral(s): Dada Maddox DO [Primary Care Provider] - 1 Week (Office will call you with your appointment date and time.) Emeka Roberto MD [STAFF PHYSICIAN] - 12/31/21 8:20 am Zohreh Hernandez DO [Doctor of Osteopathic Medicine] - 12/25/21 3:15 pm Huy Stanford MD [STAFF PHYSICIAN] - 2 Weeks (Office closed. Please call office Wednesday for your appointment.) Activity/Diet/Wound Care/Special Instructions: Dr. Reina consultation at [facility] Wednesday12/16/2021 at 8:30. [facility] [employer] will hot die picker at 8:00. hold eliquis till wednesday Discharge Disposition: HOME WITH HOME HEALTH SERVICES
== END 2021-12-14 14:03 | disposition home or self-care (01) | DRG 660 ==
LOC: EC 21:38 → 4SSUR 12-06 05:58
PROVIDERS: ADMIT Hospitalist; ATTEND Hospitalist
PROC: 0T768DZ Dilation of Right Ureter with Intraluminal Device, Via Natural or Artificial Opening Endoscopic (ICD-10-PCS; principal; 2021-12-07 09:00)
PROC: BT141ZZ Fluoroscopy of Kidneys, Ureters and Bladder using Low Osmolar Contrast (ICD-10-PCS; 2021-12-07 09:00)
PROC: 0DB78ZX Excision of Stomach, Pylorus, Via Natural or Artificial Opening Endoscopic, Diagnostic (ICD-10-PCS; 2021-12-11)
PROC: 0DJD8ZZ Inspection of Lower Intestinal Tract, Via Natural or Artificial Opening Endoscopic (ICD-10-PCS; 2021-12-11)
DX: N13.1 Hydronephrosis with ureteral stricture, not elsewhere classified (principal); I13.0 Hypertensive heart and chronic kidney disease with heart failure and stage 1 through stage 4 chronic kidney disease, or unspecified chronic kidney disease; K92.1 Melena; I48.19 Other persistent atrial fibrillation; I50.32 Chronic diastolic (congestive) heart failure; E11.22 Type 2 diabetes mellitus with diabetic chronic kidney disease; I95.9 Hypotension, unspecified; N18.30 Chronic kidney disease, stage 3 unspecified; E27.9 Disorder of adrenal gland, unspecified; Z28.310 Unvaccinated for COVID-19; K80.50 Calculus of bile duct without cholangitis or cholecystitis without obstruction; N95.0 Postmenopausal bleeding; E78.5 Hyperlipidemia, unspecified; K29.70 Gastritis, unspecified, without bleeding; K63.89 Other specified diseases of intestine; K82.8 Other specified diseases of gallbladder; I25.10 Atherosclerotic heart disease of native coronary artery without angina pectoris; K57.30 Diverticulosis of large intestine without perforation or abscess without bleeding; E66.9 Obesity, unspecified; Z68.30 Body mass index [BMI] 30.0-30.9, adult; Z79.01 Long term (current) use of anticoagulants; Z79.899 Other long term (current) drug therapy; Z86.16 Personal history of COVID-19; Z92.3 Personal history of irradiation; Z85.42 Personal history of malignant neoplasm of other parts of uterus; Z86.73 Personal history of transient ischemic attack (TIA), and cerebral infarction without residual deficits; Z71.3 Dietary counseling and surveillance
CPT/HCPCS: 36415; 43239; 74176; 74420; 76705; 80048; 80053; 81001; 83605; 83690; 83735; 84100; 84443; 84484; 85025; 85027; 85610; 85730; 86850; 86900; 86901; 87086; 88305; 93005; 99285

== ENCOUNTER → 2021-12-26 | Outpatient (CLI) | payer MEDICARE, OTHER | END | disposition home or self-care (01) | LOC: RADPETMAIN 09:55 | PROVIDERS: ATTEND Obstetrics & Gynecology | DX: C54.1 Malignant neoplasm of endometrium (principal) | CPT/HCPCS: 78815; A9552 ==

== ENCOUNTER → 2022-04-10 | Outpatient (CLI) | payer MEDICARE, OTHER ==
--- NOTE | 2022-04-14 09:16 | PE ---
EXAMINATION TYPE: PET CT fusion skull to thigh DATE OF EXAM: 04/10/2022 COMPARISON: Prior PET/CT December 26, 2021 and older studies HISTORY: Endometrial cancer progress study. Completed radiation treatment 3 years ago. TECHNIQUE: Following the intravenous administration of 11.11 mCi of F-18 FDG, whole body images are performed from the skull base to the midthigh. Images are reviewed on the computer in the coronal, a xial, and sagittal planes. Reconstructed rotating images are created on independent workstation and reviewed on the computer. A localization and attenuation correction CT is performed in conjunction with the PET scan. Blood glucose level equals 125 SCAN: Subsequent Scan FINDINGS: SKULL BASE AND NECK: No new areas of abnormal hypermetabolic uptake. CHEST, MEDIASTINUM, AND HILAR REGION: Moderate underlying emphysematous change is redemonstrated No n ew areas of abnormal hypermetabolic uptake. ABDOMEN AND PELVIS: Persistent dilated gallbladder with distended margins and dependent calculi. No b iliary dilatation. Persistent right double-J ureter stent. Bilateral excretion redemonstrated. Persistent heterogeneous lobulated hypermetabolic anterior right pelvic mass or neoplasm measuring approximately 10.6 x 6.0 cm axial image 220 similar appearance to prior, max SUV is 10.75 axial image 219 versus prior where was 11.72. Streak artifact from left hip arthroplasty redemonstrated somewhat limiting evaluation of pel maricruz structures. Abnormal soft tissue nodularity in the right presacral space measuring approximately 3.3 x 2.6 cm redemonstrated, max SUV is 9.32 on axial image 225 versus prior study was 10.06. Sigmoid colonic diverticula are redemonstrated. No definitive new areas of abnormal hypermetabolic uptake in the abdomen. OSSEOUS STRUCTURES: No areas of new abnormal hypermetabolic uptake. OTHER CT: Focal area of encephalomalacia posterior right frontal lobe axial image 2 redemonstrated. O ld infarct inferior left occipital lobe axial image 12 redemonstrated. Persistent cardiomegaly with mild to moderate bilateral lower lung linear scarring and/or atelectasis . Persistent enlarged pulmonary arteries consistent with underlying pulmonary artery hypertension. Pe rsistent severe right atrial and moderate left atrial dilatation. Coronary artery calcification redem onstrated. Ascending aorta measures up to 3.8 cm in size. Moderate to severe calcified plaque in the ectatic abdominal aorta. IMPRESSION: Overall stable findings from most recent PET/CT. No new areas of abnormal hypermetabolic uptake. No significant change in max SUV of known pelvic neoplasm. Suboptimal evaluation due to strea k artifact from left hip arthroplasty along with normal excretion from bladder in close proximity to the neoplastic involvement in the pelvis.
== END | disposition home or self-care (01) ==
LOC: RADPETMAIN 11:14
PROVIDERS: ATTEND Internal Medicine
DX: C54.8 Malignant neoplasm of overlapping sites of corpus uteri (principal); Z96.642 Presence of left artificial hip joint
CPT/HCPCS: 78815; A9552

== ENCOUNTER 2022-05-11 08:46 | Day surgery (SDC) | payer MEDICARE, OTHER ==
[2022-05-11 09:34] LABS: INR 1.1 (<1.2); Mean Platelet Volume 8.3; Platelet Count 206 k/uL (150-450)
[2022-05-11 09:35] LABS: Prothrombin Time 11.4 sec (9.0-12.0)
[2022-05-11 09:46] VITALS: RESP 16; TEMP 97.4
--- NOTE | 2022-05-11 11:06 | CT ---
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 PROCEDURES: CT-guided presacral mass biopsy ATTENDING: Jatin Hardy M.D. BACON SKIN LIFTER: None SEDATION: None MEDICATIONS: 10 ml 1% lidocaine buffered with sodium bicarbonate was administered for local anesthesia. CONTRAST: None COMPLICATIONS: None DLP: 1304 mGycm TECHNIQUES/FINDINGS: After review of the procedure, risks, benefits, alternatives and sedation, the patient voiced under standing and consent was obtained. The patient was then positioned left lateral decubitus on the CT table and the posterior gluteal berenice on was prepared and draped in the usual sterile fashion. Following local anesthetic and using CT guidance, a 17-gauge guide needle was advanced until its tip was seen at the edge of the presacral mass. Through this guide, a 18-gauge biopsy needle was advance d and a total of 2 samples were obtained. Samples were placed in formalin and delivered to the pathol ogy department. The trocar needle was removed. Hemostasis was achieved with manual compression pressu re. Sterile dressings were applied. Follow-up images revealed no evidence of hematoma or other signs of immediate complication. CONDITION/DISPOSITION: Patient tolerated the procedure well and was discharged from the department. SPECIMEN: 2 18-gauge core specimens were obtained and placed in formalin and delivered to pathology. The procedure was performed by Dr. Hardy who was present for the entire procedure. IMPRESSION: 1. Technically successful CT-guided presacral mass biopsy. 2. Post procedure images showed no clinically significant hematoma.
[2022-05-11 11:42] VITALS: BP 131/88; PULSE 85
== END 2022-05-11 11:58 | disposition home or self-care (01) ==
LOC: RADPROMAIN 08:46
PROVIDERS: ATTEND Internal Medicine
DX: C54.9 Malignant neoplasm of corpus uteri, unspecified (principal)
CPT/HCPCS: 21920; 36415; 77012; 82947; 85049; 85610; 88305; 88341; 88342

== ENCOUNTER 2022-05-13 20:54 | Observation (INO) | payer MEDICARE, OTHER ==
--- NOTE | 2022-05-14 00:19 | ED ---
Female Urogenital HPI <Perla Hayes - Last Filed: 05/14/22 02:39> - General Source: patient, RN notes reviewed Mode of arrival: ambulatory Limitations: no limitations - History of Present Illness MD Complaint: vaginal bleeding <Darrion Hebert - Last Filed: 05/14/22 04:20> - General Chief complaint: Vaginal Bleeding Stated complaint: vaginal bleeding Time Seen by Provider: 05/13/22 23:54 - History of Present Illness Initial comments: This is a pleasant 76-year-old female presents to emergency department with vaginal bleeding. Patient states she had quite a bit of bleeding at home. She has a history of endometrial cancer. Patient states that she underwent radiation and everything was clear. Patient states the cancer came back a few months ago. Patient sees oncology here within this facility. Denying any lightheadedness. No palpitations. No bleeding (sites. Patient no longer on anticoagulation therapy. No headache, no fever or chills, no changes in vision or hearing, no sore throat or difficulty with speech, no neck pain, no chest pain or shortness of breath, no abdominal pain, no nausea or vomiting, no changes in urination or bowel movements, no numbness or tingling, no extremity pain, no skin rashes or lesions. Past medical, surgical, social, and family history reviewed. (Darrion Hebert) - Related Data Home Medications Medication Instructions Recorded Confirmed Metoprolol Tartrate [Lopressor] 100 mg PO BID 10/19/21 05/11/22 Previous Rx's Medication Instructions Recorded Apixaban [Eliquis] 5 mg PO BID #60 tab 09/02/18 Sennosides [Senokot] 8.6 mg PO BID PRN 5 Days #10 tab 12/12/21 Allergies Allergy/AdvReac Type Severity Reaction Status Date / Time No Known Allergies Allergy Verified 05/13/22 22:28 Review of Systems ROS Other: All systems not noted in ROS Statement are negative. <Perla Hayes - Last Filed: 05/14/22 02:39> ROS Other: All systems not noted in ROS Statement are negative. <Darrion Hebert - Last Filed: 05/14/22 04:20> ROS Statement: Those systems with pertinent positive or pertinent negative responses have been documented in the HPI. Past Medical History Past Medical History: Atrial Fibrillation, Cancer, CVA/TIA, GI Bleed, Hyperlipidemia, Myocardial Infarction ([place]) Additional Past Medical History / Comment(s): 07/27/17 FALL'LT HIP FX. 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 History of COVID-19, cervical cancer treated with radiation. No taking Eliquis due to bleeding issues in past. Last Myocardial Infarction Date:: 2009 History of Any Multi-Drug Resistant Organisms: None Reported Past Surgical History: Heart Catheterization, Orthopedic Surgery, Tonsillectomy Additional Past Surgical History / Comment(s): ORIF RT ANKLE HAS PLATE. Past Anesthesia/Blood Transfusion Reactions: No Reported Reaction Past Psychological History: No Psychological Hx Reported Smoking Status: Former smoker, Never smoker Past Alcohol Use History: None Reported Past Drug Use History: None Reported - Past Family History Mother Family Medical History: No Reported History Additional Family Medical History / Comment(s): FROM ANUERYSM Father Family Medical History: No Reported History <Darrion Hebert - Last Filed: 05/14/22 04:20> General Exam Limitations: no limitations General appearance: alert, in no apparent distress Head exam: Present: atraumatic, normocephalic, normal inspection Eye exam: Present: normal appearance, PERRL, EOMI. Absent: scleral icterus, conjunctival injection, periorbital swelling ENT exam: Present: normal exam, normal oropharynx, mucous membranes moist, normal external ear exam. Absent: mucous membranes dry Neck exam: Present: normal inspection, full ROM. Absent: tenderness, meningismus, lymphadenopathy Respiratory exam: Present: normal lung sounds bilaterally. Absent: respiratory distress, wheezes, rales, rhonchi, stridor Cardiovascular Exam: Present: regular rate, normal rhythm, normal heart sounds. Absent: systolic murmur, diastolic murmur, rubs, gallop, clicks GI/Abdominal exam: Present: soft, normal bowel sounds. Absent: distended, tenderness, guarding, rebound, rigid External exam: Present: normal external exam Speculum exam: Present: vaginal bleeding, other (Pelvic examination reveals significant vaginal bleeding. Chaperoned by female RN). Absent: vaginal discharge, cervical discharge Extremities exam: Present: normal inspection, full ROM, normal capillary refill. Absent: tenderness, pedal edema, joint swelling, calf tenderness Back exam: Present: normal inspection Neurological exam: Present: alert, oriented X3, CN II-XII intact Psychiatric exam: Present: normal affect, normal mood Skin exam: Present: warm, dry, intact, normal color. Absent: rash <Darrion Hebert - Last Filed: 05/14/22 04:20> Course <Darrion Hebert - Last Filed: 05/14/22 04:20> Vital Signs 05/13/22 22:25 Temperature 98.5 F Pulse Rate 62 Respiratory 16 Rate Blood Pressure 142/94 O2 Sat by Pulse 96 Oximetry - Consultations Consultation #1: Consultation call placed for on-call [employer]IAL TRAINEE (Darrion Hebert) Consultation #2: Case was discussed in detail with the resident at [facility]. He took down all the patient's information in case a transfer needs to take place today. He was going to pass the information along to Dr. Reina the patient's oncologist/store stock help. We did have to call Dr. Hernandez back here and admit the patient to this hospital under observation in her care. (Darrion Hebert) Medical Decision Making - Lab Data Result diagrams: 05/14/22 00:13 05/14/22 00:13 <Perla Hayes - Last Filed: 05/14/22 02:39> - Lab Data Result diagrams: 05/14/22 00:13 05/14/22 00:13 - Radiology Data Radiology results: report reviewed, image reviewed <Darrion Hebert - Last Filed: 05/14/22 04:20> - Medical Decision Making Given the patient's history of endometrial cancer. We'll order baseline laboratory work, type and screen, coagulation studies and pelvic us. (Darrion Hebert) - Lab Data Lab Results 05/14/22 05/14/22 05/14/22 Range/Units 00:06 00:13 00:13 WBC 7.6 (3.8-10.6) k/uL RBC 3.68 L (3.80-5.40) m/uL Hgb 11.1 L (11.4-16.0) gm/dL Hct 34.8 (34.0-46.0) % MCV 94.6 (80.0-100.0) fL MCH 30.1 (25.0-35.0) pg MCHC 31.8 (31.0-37.0) g/dL RDW 13.4 (11.5-15.5) % Plt Count 195 (150-450) k/uL MPV 8.4 Neutrophils % 75 % Lymphocytes % 14 % Monocytes % 6 % Eosinophils % 4 % Basophils % 0 % Neutrophils # 5.7 (1.3-7.7) k/uL Lymphocytes # 1.1 (1.0-4.8) k/uL Monocytes # 0.5 (0-1.0) k/uL Eosinophils # 0.3 (0-0.7) k/uL Basophils # 0.0 (0-0.2) k/uL Hypochromasia Slight PT 10.6 (9.0-12.0) sec INR 1.0 (<1.2) APTT 24.4 (22.0-30.0) sec Sodium (137-145) mmol/L Potassium (3.5-5.1) mmol/L Chloride (98-107) mmol/L Carbon Dioxide (22-30) mmol/L Anion Gap mmol/L BUN (7-17) mg/dL Creatinine (0.52-1.04) mg/dL Est GFR (CKD-EPI)AfAm (>60 ml/min/1.73 sqM) Est GFR (CKD-EPI)NonAf (>60 ml/min/1.73 sqM) Glucose (74-99) mg/dL Calcium (8.4-10.2) mg/dL Total Bilirubin (0.2-1.3) mg/dL AST (14-36) U/L ALT (4-34) U/L Alkaline Phosphatase (38-126) U/L Total Protein (6.3-8.2) g/dL Albumin (3.5-5.0) g/dL Blood Type A Positive Blood Type Recheck A Pos Bld Type Recheck Status No Antibody Screen NEGATIVE Spec Expiration Date 05/17/2022 - 230505/14/22 Range/Units 00:13 WBC (3.8-10.6) k/uL RBC (3.80-5.40) m/uL Hgb (11.4-16.0) gm/dL Hct (34.0-46.0) % MCV (80.0-100.0) fL MCH (25.0-35.0) pg MCHC (31.0-37.0) g/dL RDW (11.5-15.5) % Plt Count (150-450) k/uL MPV Neutrophils % % Lymphocytes % % Monocytes % % Eosinophils % % Basophils % % Neutrophils # (1.3-7.7) k/uL Lymphocytes # (1.0-4.8) k/uL Monocytes # (0-1.0) k/uL Eosinophils # (0-0.7) k/uL Basophils # (0-0.2) k/uL Hypochromasia PT (9.0-12.0) sec INR (<1.2) APTT (22.0-30.0) sec Sodium 141 (137-145) mmol/L Potassium 4.5 (3.5-5.1) mmol/L Chloride 108 H (98-107) mmol/L Carbon Dioxide 27 (22-30) mmol/L Anion Gap 6 mmol/L BUN 28 H (7-17) mg/dL Creatinine 1.60 H (0.52-1.04) mg/dL Est GFR (CKD-EPI)AfAm 36 (>60 ml/min/1.73 sqM) Est GFR (CKD-EPI)NonAf 31 (>60 ml/min/1.73 sqM) Glucose 103 H (74-99) mg/dL Calcium 9.3 (8.4-10.2) mg/dL Total Bilirubin 0.9 (0.2-1.3) mg/dL AST 18 (14-36) U/L ALT 11 (4-34) U/L Alkaline Phosphatase 95 (38-126) U/L Total Protein 6.4 (6.3-8.2) g/dL Albumin 3.8 (3.5-5.0) g/dL Blood Type Blood Type Recheck Bld Type Recheck Status Antibody Screen Spec Expiration Date - Radiology Data Pelvic ultrasound interpreted by me reveals no evidence of significant acute pathology. I did review the radiology interpretation. No adnexal mass, no free fluid, uterine fibroids with enlarged uteruspatient has multiple fibroids, la rgest is 7.2 x 7.2 x 4.9 in the fundus. Overall careened radiology uterus is very heterogenous. (Darrion Hebert) Disposition <Perla Hayes - Last Filed: 05/14/22 02:39> Time of Disposition: 04:19 <Darrion Hebert - Last Filed: 05/14/22 04:20> Clinical Impression: Vaginal bleeding, History of endometrial cancer Disposition: ADMITTED IP TO THIS HOSP Condition: Good
[2022-05-14 00:29] LABS: Basophils % (A) 0 %; Eosinophils # (A) 0.3 k/uL (0-0.7); Eosinophils % (A) 4 %; HCT 34.8 % (34.0-46.0); HGB 11.1 gm/dL (11.4-16.0); Hypochromasia Slight; Lymphocytes # (A) 1.1 k/uL (1.0-4.8); Lymphocytes % (A) 14 %; MCH 30.1 pg (25.0-35.0); MCHC 31.8 g/dL (31.0-37.0); MCV 94.6 fL (80.0-100.0); Mean Platelet Volume 8.4; Monocytes # (A) 0.5 k/uL (0-1.0); Monocytes % (A) 6 %; Neutrophils # (A) 5.7 k/uL (1.3-7.7); Neutrophils % (A) 75 %; Platelet Count 195 k/uL (150-450); RBC 3.68 m/uL (3.80-5.40); RDW 13.4 % (11.5-15.5); WBC 7.6 k/uL (3.8-10.6)
[2022-05-14 00:39] LABS: Partial Thromboplastin Time 24.4 sec (22.0-30.0); Prothrombin Time 10.6 sec (9.0-12.0)
[2022-05-14 00:52] LABS: Albumin 3.8 g/dL (3.5-5.0); Calcium 9.3 mg/dL (8.4-10.2); Potassium 4.5 mmol/L (3.5-5.1); Total Bilirubin 0.9 mg/dL (0.2-1.3); Total Protein 6.4 g/dL (6.3-8.2)
--- NOTE | 2022-05-14 01:15 | US ---
EXAMINATION TYPE: US pelvic complete DATE OF EXAM: 05/14/2022 COMPARISON: 10/19/21, CT: 12/06/21 CLINICAL HISTORY: Vaginal bleeding, history of uterine cancer. vaginal bleeding x 3 days. Hx of NH ca ncer. TECHNIQUE: . Transabdominal sonographic images of the pelvis were acquired. Date of LMP: 20+ years ago EXAM MEASUREMENTS: Uterus: 9.5 x 8.1 x 4.8 cm Endometrial Stripe: Not well visualized Right Ovary: Not vis Left Ovary: Not vis 1. Uterus: Anteverted Multiple fibroids seen. Largest = 7.2 x 7.2 x 4.9 in the fundus. Overall the uterus is very heterogeneous. 2. Endometrium: Not well visualized 3. Right Ovary: not vis due to atrophy 4. Left Ovary: not vis due to atrophy 5. Bilateral Adnexa: appear wnl 6. Posterior cul-de-sac: wnl IMPRESSION: No adnexal mass or free fluid. Uterine fibroids with enlarged uterus. No adverse change.
[2022-05-14] MEDS ORDERED: NALOXONE 0.4 MG/ML 1 ML VIAL IV PRN (02:33)
[2022-05-14] MEDS ORDERED: ACETAMINOPHEN TAB 325 MG TAB PO PRN (02:33)
[2022-05-14] MEDS ORDERED: ONDANSETRON 4 MG/2 ML VIAL IVP PRN (02:33)
[2022-05-14] MEDS ORDERED: SODIUM CHLORIDE 0.9% 1,000 ML IV SCH (02:45)
[2022-05-14 06:52] LABS: HCT 33.5 % (34.0-46.0); HGB 10.6 gm/dL (11.4-16.0); Hypochromasia Marked; MCH 30.5 pg (25.0-35.0); MCHC 31.7 g/dL (31.0-37.0); MCV 96.1 fL (80.0-100.0); Mean Platelet Volume 8.2; Platelet Count 169 k/uL (150-450); RBC 3.48 m/uL (3.80-5.40); RDW 13.4 % (11.5-15.5); WBC 5.8 k/uL (3.8-10.6)
[2022-05-14] MEDS ORDERED: SENNOSIDES 8.6 MG TAB PO PRN (07:07)
[2022-05-14 07:58] VITALS: BP 127/85; PULSE 87; RESP 20; TEMP 98.7
[2022-05-14] MEDS ORDERED: METOPROLOL TARTRATE 50 MG TAB PO SCH (09:00)
--- NOTE | 2022-05-14 10:41 | P.HPOB ---
History of Present Illness H&P Date: 05/14/22 Chief Complaint: vaginal bleeding 76-year-old female with previous diagnosis of endometrial cancer in 2019 presents to the emergency room this morning complaining of heavy vaginal bleeding. She said she filled the toilet and that she should come into the hospital. Her hemoglobin upon admission was 11.1 in the emergency room physician was concerned because she continued to have some moderate vaginal bleeding. In November I did an exam under anesthesia were this patient had a friable cervix. In order to stop any further vaginal bleeding she would need radiation treatment. She has had this treatment with Dr. Mendenhall and Dr. Reina. She underwent a presacral CT-guided biopsy 3 days ago as well result are pending. I admitted the patient's observation but upon my examination this morning her hemoglobin remained stable 10.6 down from 11.16 hours prior. She is having some brown spotting on her pad but nothing further. Patient is completely stable and be discharged home to follow-up with Dr. Perez and Dr. Mendenhall for further treatment. Review of Systems All systems: negative Constitutional: Denies chills, Denies fever Eyes: denies blurred vision, denies pain Ears, nose, mouth and throat: Denies headache, Denies sore throat Cardiovascular: Denies chest pain, Denies shortness of breath Respiratory: Denies cough Gastrointestinal: Denies abdominal pain, Denies diarrhea, Denies nausea, Denies vomiting Genitourinary: Denies dysuria, Denies hematuria Musculoskeletal: Denies myalgias Integumentary: Denies pruritus, Denies rash Neurological: Denies numbness, Denies weakness Psychiatric: Denies anxiety, Denies depression Endocrine: Denies fatigue, Denies weight change Past Medical History Past Medical History: Atrial Fibrillation, Cancer, CVA/TIA, GI Bleed, Hyperlipidemia, Myocardial Infarction ([place]) Additional Past Medical History / Comment(s): 07/27/17 FALL'LT HIP FX. 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 History of COVID-19, cervical cancer treated with radiation. No taking Eliquis due to bleeding issues in past. Last Myocardial Infarction Date:: 2009 History of Any Multi-Drug Resistant Organisms: None Reported Past Surgical History: Heart Catheterization, Orthopedic Surgery, Tonsillectomy Additional Past Surgical History / Comment(s): ORIF RT ANKLE HAS PLATE. Past Anesthesia/Blood Transfusion Reactions: No Reported Reaction Past Psychological History: No Psychological Hx Reported Smoking Status: Former smoker, Never smoker Past Alcohol Use History: None Reported Past Drug Use History: None Reported - Past Family History Mother Family Medical History: No Reported History Additional Family Medical History / Comment(s): FROM ANUERYSM Father Family Medical History: No Reported History Medications and Allergies Home Medications Medication Instructions Recorded Confirmed Type Metoprolol Tartrate [Lopressor] 100 mg PO BID 10/19/21 05/14/22 History Sennosides [Senokot] 8.6 mg PO BID PRN 5 Days #10 tab 12/12/21 05/14/22 Rx Allergies Allergy/AdvReac Type Severity Reaction Status Date / Time No Known Allergies Allergy Verified 05/14/22 06:56 Exam Osteopathic Statement: *. No significant issues noted on an osteopathic structural exam other than those noted in the History and Physical/Consult. Vital Signs Temp Pulse Pulse Resp BP BP Pulse Ox 05/14/22 07:00 98.7 F 87 20 127/85 95 05/13/22 22:25 98.5 F 62 16 142/94 96 Intake and Output 05/13/22 05/14/22 05/14/22 22:59 06:59 14:59 Other: Weight 90.718 kg Heart: Regular rate and rhythm Lungs: Clear to auscultation bilaterally Abdomen: Soft nontender Extremities: Negative Homans sign I did examine the patient's vulva and pad. Appears normal and a pad only has brown specks on it, change several hours ago. Results Result Diagrams: 05/14/22 06:26 05/14/22 00:13 Abnormal Lab Results - Last 24 Hours (Table) 05/14/22 05/14/22 05/14/22 Range/Units 00:13 00:13 06:26 RBC 3.68 L 3.48 L (3.80-5.40) m/uL Hgb 11.1 L 10.6 L (11.4-16.0) gm/dL Hct 33.5 L (34.0-46.0) % Chloride 108 H (98-107) mmol/L BUN 28 H (7-17) mg/dL Creatinine 1.60 H (0.52-1.04) mg/dL Glucose 103 H (74-99) mg/dL Assessment and Plan (1) History of endometrial cancer Current Visit: Yes Status: Acute Code(s): Z85.42 - PERSONAL HISTORY OF MALIGNANT NEOPLASM OF OTH PRT UTERUS SNOMED Code(s): 069942181 (2) Vaginal bleeding Current Visit: Yes Status: Acute Priority: High Code(s): N93.9 - ABNORMAL UTERINE AND VAGINAL BLEEDING, UNSPECIFIED SNOMED Code(s): 239957531 Plan: 1. I admitted the patient's observation but will now discharge her from the emergency room where she currently is. 2. I had a discussion with the patient regarding her cancer diagnosis again and she seems to understand this at this time. She does seem like she is having a little bit harder time understanding then she did back in November. Patient should follow up with Dr. Reina and Dr. Mendenhall for further consultation and possible radiation treatment.
[2022-05-14 12:49] LABS: Appearance,Urine Cloudy (Clear); Bilirubin,Urine Negative (Negative); Blood,Urine Large (Negative); Color,Urine Light Red; Glucose,Urine (UA) Negative (Negative); Ketones,Urine Negative (Negative); Leukocyte Esterase,Urine Large (Negative); Mucus,Urine Rare /hpf; Nitrite,Urine Negative (Negative); PH, Urine 5.5 (5.0-8.0); Protein,Urine 1+ (Negative); RBC,Urine >182 /hpf (0-5); Specific Gravity,Urine 1.018 (1.001-1.035); Squamous Epithelial Cell,Urine 4 /hpf (0-4); Urobilinogen,Urine <2.0 mg/dL (<2.0); WBC,Urine 167 /hpf (0-5)
== END 2022-05-14 13:26 | disposition home or self-care (01) ==
LOC: EC 20:54 → 6NMEDSUR 05-14 02:37
PROVIDERS: ADMIT Obstetrics & Gynecology; ATTEND Obstetrics & Gynecology
DX: N93.9 Abnormal uterine and vaginal bleeding, unspecified (principal); I48.91 Unspecified atrial fibrillation; E78.5 Hyperlipidemia, unspecified; I25.2 Old myocardial infarction; D25.9 Leiomyoma of uterus, unspecified; N85.2 Hypertrophy of uterus; Z85.42 Personal history of malignant neoplasm of other parts of uterus; Z92.3 Personal history of irradiation; Z79.899 Other long term (current) drug therapy; Z79.01 Long term (current) use of anticoagulants; Z86.73 Personal history of transient ischemic attack (TIA), and cerebral infarction without residual deficits; Z85.41 Personal history of malignant neoplasm of cervix uteri; Z86.16 Personal history of COVID-19; Z87.891 Personal history of nicotine dependence
CPT/HCPCS: 99284; 36415; 86900; 86901; 80053; 85025; 85027; 85610; 85730; 86850; 81001; 87086; 87077; 87186; 76856; G0378

== ENCOUNTER → 2022-06-10 | Outpatient (CLI) | payer MEDICARE, OTHER ==
--- NOTE | 2022-06-11 09:55 | BD ---
EXAMINATION TYPE: Axial Bone Density DATE OF EXAM: 06/10/2022 COMPARISON: BASELINE CLINICAL HISTORY: 76 years old Female. ICD-10 CODE: C54.9 MALIGNANT NEOPLASM OF CORPUS UTERI Height: 66 Weight: 188 FRAX RISK QUESTIONS: Alcohol (3 or more units per day): NO Family History (Parent hip fracture): NO History of Fracture in Adulthood: YES LT HIP 2018 RT ANKLE 1999 Secondary Osteoporosis: NO Rheumatoid Arthritis: NO Current Tobacco Use: NO RISK FACTORS HISTORY OF: Hip Fracture (Left): YES When: 2018 Surgery to Hip(left): YES When: 2018 Family History of Osteoporosis: NO Active: YES BUT IN [place] Diet low in dairy products/other sources of calcium: NO Postmenopausal woman: YES 49 Lost more than 2 inches in height since high school: YES Frequent falls: NO Poor Health: NO Hyperparathyroidism: NO Adrenal Insufficiency: PATIENT STATES SHE HAS A STENT MEDICATIONS: Additional Medications: YES HEART PILLS , Additional History: YES UTERINE CANCER , CHEMO , RADIATION 3 YRS AGO EXAM MEASUREMENTS: Bone mineral densitometry was performed using the CADsur[employer] System. Bone mineral density as measured about the Lumbar spine is: ----- L1-L4(G/cm2): 1.118 T Score Values are as follows: ----- L1: -1.0 ----- L2: -0.9 ----- L3: -0.3 ----- L4: -0.2 ----- L1-L4: -0.5 Bone mineral density BASELINE Bone mineral density about the R hip (g/cm2): 0.702 T Score values are as follows: -----R Neck: -2.5 -----R Total: -2.4 Bone mineral density BASELINE FRAX%s: The graph provided illustrates a 25.5% chance for a major osteoporotic fx and a 7.9% chance f or the hips probability for fx in 10 years time. IMPRESSION: Osteopenia (T Score between -2.5 and -1). There is slightly increased risk of fracture and the patient may be considered for treatment. Re-Screen 2-5 years. NOTE: T-SCORE=SD OF THE YOUNG ADULT MEAN.
== END | disposition home or self-care (01) ==
LOC: RADBDWWP 14:46
PROVIDERS: ATTEND Internal Medicine
DX: C54.9 Malignant neoplasm of corpus uteri, unspecified (principal); M85.89 Other specified disorders of bone density and structure, multiple sites
CPT/HCPCS: 77080

== ENCOUNTER 2023-05-04 18:10 | Inpatient (IN) | payer MEDICARE, OTHER ==
--- NOTE | 2023-05-04 18:42 | ED ---
Fever HPI - General Chief Complaint: Altered Mental Status Stated Complaint: AMS Time Seen by Provider: 05/04/23 18:16 Source: EMS, RN notes reviewed, old records reviewed Mode of arrival: EMS Limitations: altered mental status - History of Present Illness Initial Comments: This is a 77-year-old female will poor historian coming in for altered mental st atus and being found on the ground at her primary. Patient lives yesterday in similar position. He comes in today found to have fever, brought in by EMS with elevated heart rate fever and altered mental status MD Complaint: fever, malaise, weakness -: days(s) Temperature Source: subjective Context: multiple patients with similar symptoms Associated Symptoms: chills, sore throat Treatments Prior to Arrival: none - Related Data Home Medications Medication Instructions Recorded Confirmed Anastrozole [Arimidex] 1 mg PO DAILY 05/04/23 05/04/23 Previous Rx's Medication Instructions Recorded Aspirin 81 mg PO DAILY 30 Days #30 tab 05/10/23 Benzonatate [Tessalon Perles] 200 mg PO TID PRN 7 Days #21 cap 05/10/23 Metoprolol Tartrate [Lopressor] 50 mg PO TID 30 Days #60 tab 05/10/23 amLODIPine [Norvasc] 10 mg PO DAILY 30 Days #30 tab 05/10/23 dexAMETHasone [Decadron] 6 mg PO DAILY 4 Days #4 tablet 05/10/23 Allergies Allergy/AdvReac Type Severity Reaction Status Date / Time No Known Allergies Allergy Verified 05/04/23 18:21 Review of Systems ROS Statement: Those systems with pertinent positive or pertinent negative responses have been documented in the HPI. ROS Other: All systems not noted in ROS Statement are negative. Past Medical History Past Medical History: Atrial Fibrillation, Cancer, CVA/TIA, GI Bleed, Hype rlipidemia, Myocardial Infarction ([place]) Additional Past Medical History / Comment(s): 07/27/17 FALL'LT HIP FX. 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 History of COVID-19, cervical cancer treated with radiation. No taking Eliquis due to bleeding issues in past. Last Myocardial Infarction Date:: 2009 History of Any Multi-Drug Resistant Organisms: None Reported Past Surgical History: Heart Catheterization, Orthopedic Surgery, Tonsillectomy Additional Past Surgical History / Comment(s): ORIF RT ANKLE HAS PLATE. Past Anesthesia/Blood Transfusion Reactions: No Reported Reaction Past Psychological History: No Psychological Hx Reported Smoking Status: Former smoker, Never smoker Past Alcohol Use History: None Reported Past Drug Use History: None Reported - Past Family History Mother Family Medical History: No Reported History Additional Family Medical History / Comment(s): FROM ANUERYSM Father Family Medical History: No Reported History General Exam Limitations: altered mental status General appearance: alert, in no apparent distress, anxious Head exam: Present: atraumatic, normocephalic, normal inspection Eye exam: Present: normal appearance, PERRL, EOMI. Absent: scleral icterus, conjunctival injection, periorbital swelling ENT exam: Present: normal exam, mucous membranes moist Neck exam: Present: normal inspection. Absent: tenderness, meningismus, lymphadenopathy Respiratory exam: Present: normal lung sounds bilaterally. Absent: respiratory distress, wheezes, rales, rhonchi, stridor Cardiovascular Exam: Present: tachycardia, irregular rhythm, normal heart sounds. Absent: systolic murmur, diastolic murmur, rubs, gallop, clicks GI/Abdominal exam: Present: soft, normal bowel sounds. Absent: distended, tenderness, guarding, rebound, rigid Extremities exam: Present: normal inspection, full ROM, normal capillary refill. Absent: tenderness, pedal edema, joint swelling, calf tenderness Back exam: Present: normal inspection Neurological exam: Present: alert, oriented X3, CN II-XII intact Psychiatric exam: Present: normal affect, normal mood Skin exam: Present: warm, dry, intact, normal color. Absent: rash Course Vital Signs 05/04/23 05/04/23 05/05/23 18:12 20:00 00:00 Temperature 101.4 F H 98.4 F Pulse Rate 134 H 109 H 73 Respiratory 20 20 15 Rate Blood Pressure 154/126 125/85 113/65 O2 Sat by Pulse 95 95 Oximetry 05/05/23 05/05/23 05/05/23 02:00 04:00 06:00 Temperature Pulse Rate 77 78 Respiratory 17 18 Rate Blood Pressure 129/84 113/97 O2 Sat by Pulse 97 96 97 Oximetry 05/05/23 05/05/23 05/05/23 10:31 12:00 14:00 Temperature Pulse Rate 81 105 H 86 Respiratory 18 13 24 Rate Blood Pressure 124/89 157/109 95/76 O2 Sat by Pulse 99 95 95 Oximetry 05/05/23 15:59 Temperature Pulse Rate 84 Respiratory 18 Rate Blood Pressure 149/96 O2 Sat by Pulse 96 Oximetry - Reevaluation(s) Reevaluation #1: 05/04/23 22:18 Medical record is reviewed Reevaluation #2: 05/04/23 22:19 Patient symptoms are improving dramatically blood pressure heart rate Reevaluation #3: 05/04/23 22:19 Patient informed of results and questions answered Reevaluation #4: 05/04/23 22:19 Was pt. sent in by a medical professional or institution (CARRIE Ricks, DEVELOPMENT REPRESENTATIVE, urgent care, hospital, or [facility]...) When possible be specific @ -no Did you speak to anyone other than the patient for history (EMS, parent, family, police, friend...)? What history was obtained from this source @ -no Did you review nursing and triage notes (agree or disagree)? Why? @ -agree Are old charts reviewed (outside hosp., previous admission, EMS record, old EKG, old radiological studies, urgent care reports/EKG's, [facility] records)? Report findings @ -yes Differential Diagnosis (chest pain, altered mental status, abdominal pain women, abdominal pain men, vaginal bleeding, weakness, fever, dyspnea, syncope, headache, dizziness, GI bleed, back pain, seizure, CVA, palpatations, mental health, musculoskeletal)? @ -prior EKG interpreted by me (3pts min.). @ -yes X-rays interpreted by me (1pt min.). @ -yes CT interpreted by me (1pt min.). @ -yes U/S interpreted by me (1pt. min.). @ -no What testing was considered but not performed or refused? (CT, X-rays, U/S, labs)? Why? @ -none What meds were considered but not given or refused? Why? @ -none Did you discuss the management of the patient with other professionals (professionals i.e. CARRIE Ricks, DEVELOPMENT REPRESENTATIVE, lab, RT, psych nurse, school social worker, stoper, teacher, county records management officer, disease case manager)? Give summary @ -no Was smoking cessation discussed for >3mins.? @ -no Was critical care preformed (if so, how long)? @ -no Were there social determinants of health that impacted care today? How? (Homelessness, low income, unemployed, alcoholism, drug addiction, transportation, low edu. Level, literacy, decrease access to med. care, group home, rehab)? @ -none Was there de-escalation of care discussed even if they declined (Discuss DNR or withdrawal of care, Hospice)? DNR status @ -no What co-morbidities impacted this encounter? (DM, HTN, Smoking, COPD, CAD, Cancer, CVA, ARF, Chemo, Hep., AIDS, mental health diagnosis, sleep apnea, morbid obesity)? @ -none Was patient admitted / discharged? Hospital course, mention meds given and route, prescriptions, significant lab abnormalities, going to OR and other pertinent info. @ - 77 female to the emergency department for evaluation today. Patient presents today for evaluation regards to altered mental status with fever a trip for which with RVR positive for coronavirus Undiagnosed new problem with uncertain prognosis? @ -no Drug Therapy requiring intensive monitoring for toxicity (Heparin, Nitro, Insulin, Cardizem)? @ -no Were any procedures done? @ -no Diagnosis/symptom? @ -Altered mental status A. fib with RVR coronavirus Acute, or Chronic, or Acute on Chronic? @ -Acute Uncomplicated (without systemic symptoms) or Complicated (systemic symptoms)? @ -Complicated Side effects of treatment? @ -no Exacerbation, Progression, or Severe Exacerbation? @ -exacerbation Poses a threat to life or bodily function? How? (Chest pain, [place], [place], pneumonia, PE, COPD, DKA, ARF, appy, cholecystitis, CVA, Diverticulitis, Homicidal, Suicidal, threat to staff... and all critical care pts) @ -yes 05/11/23 00:15 Reevaluation #5: 05/04/23 22:19 Differential Fever: Pneumonia, viral URI, endocarditis, myocarditis, pericarditis, otitis, sinusitis, peritonsillar Abscess, retropharyngeal Abscess, epiglottitis, peritonitis, appendicitis, Margot cystitis, diverticulitis, hepatitis, colitis, UTI, PID, TOA, pyelonephritis, prostatitis, epididymitis, meningitis, encephalitis, pulmonary embolism, CVA, thyroid storm, pancreatitis, adrenal crisis, cavernous sinus thrombosis, this is not meant to be an all-inclusive list. Differential Altered Mental Status: Hypoglycemia, DKA, hypercapnia, ETOH, overdose, CO poisoning, trauma, myxedema coma, HTN encephalopathy, infection, encephalitis, psychosis, intercranial hemorrhage, hepatic encephalopathy, meningitis, CVA, this is not meant to be an all-inclusive list Differential Palpitations Ventricular arrhythmias, atrial arrhythmias, myocardial infarction, anemia, thyrotoxicosis, electrolyte imbalance, hypokalemia, pulmonary embolism, pulmonary disease, drugs, alcohol, anxiety, stress.... This is not meant to be an all-inclusive list. - Consultations Consultation #1: Spoke with [facility] were agrees to admit this patient Medical Decision Making - Medical Decision Making 77 female to the emergency department for evaluation today. Patient presents today for evaluation regards to altered mental status with fever a trip for which with RVR positive for coronavirus - Lab Data Result diagrams: 05/10/23 04:37 05/10/23 04:37 Lab Results 05/04/23 05/04/23 05/04/23 Range/Units 18:53 18:53 18:53 WBC 8.3 (3.8-10.6) k/uL RBC 3.77 L (3.80-5.40) m/uL Hgb 11.4 (11.4-16.0) gm/dL Hct 35.5 (34.0-46.0) % MCV 94.1 (80.0-100.0) fL MCH 30.3 (25.0-35.0) pg MCHC 32.2 (31.0-37.0) g/dL RDW 14.2 (11.5-15.5) % Plt Count 140 L (150-450) k/uL MPV 8.1 Neutrophils % 91 % Lymphocytes % 3 % Monocytes % 5 % Eosinophils % 0 % Basophils % 0 % Neutrophils # 7.6 (1.3-7.7) k/uL Lymphocytes # 0.2 L (1.0-4.8) k/uL Monocytes # 0.4 (0-1.0) k/uL Eosinophils # 0.0 (0-0.7) k/uL Basophils # 0.0 (0-0.2) k/uL PT 11.5 (10.0-12.5) sec INR 1.1 (<1.2) APTT 21.3 L (22.0-30.0) sec Sodium 136 L (137-145) mmol/L Potassium 4.0 (3.5-5.1) mmol/L Chloride 103 (98-107) mmol/L Carbon Dioxide 20 L (22-30) mmol/L Anion Gap 13 mmol/L BUN 26 H (7-17) mg/dL Creatinine 1.73 H (0.52-1.04) mg/dL Est GFR (CKD-EPI)AfAm 32 (>60 ml/min/1.73 sqM) Est GFR (CKD-EPI)NonAf 28 (>60 ml/min/1.73 sqM) Glucose 136 H (74-99) mg/dL Calcium 8.9 (8.4-10.2) mg/dL Phosphorus 2.8 (2.5-4.5) mg/dL Magnesium 1.6 (1.6-2.3) mg/dL Total Bilirubin 1.9 H (0.2-1.3) mg/dL AST 32 (14-36) U/L ALT 15 (4-34) U/L Alkaline Phosphatase 57 (38-126) U/L Ammonia (<30) umol/L Troponin I (0.000-0.034) ng/mL Total Protein 6.2 L (6.3-8.2) g/dL Albumin 3.5 (3.5-5.0) g/dL Influenza Type A (PCR) (Not Detectd) Influenza Type B (PCR) (Not Detectd) RSV (PCR) (Not Detectd) SARS-CoV-2 (PCR) (Not Detectd) 05/04/23 05/04/23 05/04/23 Range/Units 18:53 18:53 18:53 WBC (3.8-10.6) k/uL RBC (3.80-5.40) m/uL Hgb (11.4-16.0) gm/dL Hct (34.0-46.0) % MCV (80.0-100.0) fL MCH (25.0-35.0) pg MCHC (31.0-37.0) g/dL RDW (11.5-15.5) % Plt Count (150-450) k/uL MPV Neutrophils % % Lymphocytes % % Monocytes % % Eosinophils % % Basophils % % Neutrophils # (1.3-7.7) k/uL Lymphocytes # (1.0-4.8) k/uL Monocytes # (0-1.0) k/uL Eosinophils # (0-0.7) k/uL Basophils # (0-0.2) k/uL PT (10.0-12.5) sec INR (<1.2) APTT (22.0-30.0) sec Sodium (137-145) mmol/L Potassium (3.5-5.1) mmol/L Chloride (98-107) mmol/L Carbon Dioxide (22-30) mmol/L Anion Gap mmol/L BUN (7-17) mg/dL Creatinine (0.52-1.04) mg/dL Est GFR (CKD-EPI)AfAm (>60 ml/min/1.73 sqM) Est GFR (CKD-EPI)NonAf (>60 ml/min/1.73 sqM) Glucose (74-99) mg/dL Calcium (8.4-10.2) mg/dL Phosphorus (2.5-4.5) mg/dL Magnesium (1.6-2.3) mg/dL Total Bilirubin (0.2-1.3) mg/dL AST (14-36) U/L ALT (4-34) U/L Alkaline Phosphatase (38-126) U/L Ammonia <9 (<30) umol/L Troponin I 0.051 H* (0.000-0.034) ng/mL Total Protein (6.3-8.2) g/dL Albumin (3.5-5.0) g/dL Influenza Type A (PCR) Not Detected (Not Detectd) Influenza Type B (PCR) Not Detected (Not Detectd) RSV (PCR) Not Detected (Not Detectd) SARS-CoV-2 (PCR) Detected A (Not Detectd) - EKG Data -: EKG Interpreted by Me (EKG shows a fibrillation with RVR 137 QRS 90 QTC 329) - Radiology Data Radiology results: report reviewed (CT brain and chest x-ray are negative for acute disease), image reviewed Critical Care Time Critical Care Time: Yes Total Critical Care Time: 31 Disposition Clinical Impression: Chest pain, COVID-19, Afib, Weakness, Atrial fibrillation with rapid ventricular response, Fever, Altered mental status Disposition: ADMITTED IP TO THIS HOSP Condition: Fair Is patient prescribed a controlled substance at d/c from ED?: No Time of Disposition: 22:15
[2023-05-04] MEDS ORDERED: SODIUM CHLORIDE 0.9% 500 ML 500 ML IV ONE (18:48)
[2023-05-04] MEDS ORDERED: SODIUM CHLORIDE 0.9% 1,000 ML IV ONE (18:48)
[2023-05-04] MEDS ORDERED: SODIUM CHLORIDE 0.9% 1,000 ML IV STA (18:48)
[2023-05-04] MEDS ORDERED: ACETAMINOPHEN IV (For NPO) 1,000 MG in EMPTY BAG 1 BAG IVPB STA (18:51)
[2023-05-04 19:03] LABS: Basophils % (A) 0 %; Eosinophils % (A) 0 %; HCT 35.5 % (34.0-46.0); HGB 11.4 gm/dL (11.4-16.0); Lymphocytes # (A) 0.2 k/uL (1.0-4.8); Lymphocytes % (A) 3 %; MCH 30.3 pg (25.0-35.0); MCHC 32.2 g/dL (31.0-37.0); MCV 94.1 fL (80.0-100.0); Mean Platelet Volume 8.1; Monocytes # (A) 0.4 k/uL (0-1.0); Monocytes % (A) 5 %; Neutrophils # (A) 7.6 k/uL (1.3-7.7); Neutrophils % (A) 91 %; Platelet Count 140 k/uL (150-450); RBC 3.77 m/uL (3.80-5.40); RDW 14.2 % (11.5-15.5); WBC 8.3 k/uL (3.8-10.6)
[2023-05-04 19:19] LABS: ALT 15 U/L (4-34); AST 32 U/L (14-36); African American GFR (CKD) 32 (>60 ml/min/1.73 sqM); Albumin 3.5 g/dL (3.5-5.0); Alkaline Phosphatase 57 U/L (38-126); Anion Gap 13 mmol/L; Blood Urea Nitrogen 26 mg/dL (7-17); Calcium 8.9 mg/dL (8.4-10.2); Carbon Dioxide 20 mmol/L (22-30); Chloride 103 mmol/L (98-107); Glucose 136 mg/dL (74-99); Magnesium 1.6 mg/dL (1.6-2.3); Non-African American GFR(CKD) 28 (>60 ml/min/1.73 sqM); Phosphorus 2.8 mg/dL (2.5-4.5); Sodium 136 mmol/L (137-145); Total Bilirubin 1.9 mg/dL (0.2-1.3); Total Protein 6.2 g/dL (6.3-8.2)
[2023-05-04] MEDS ORDERED: IBUPROFEN IV 800 MG in SODIUM CHLORIDE 0.9% 250 ML IV ONE (19:30)
[2023-05-04 19:31] LABS: INR 1.1 (<1.2); Prothrombin Time 11.5 sec (10.0-12.5)
[2023-05-04 19:50] LABS: Partial Thromboplastin Time 21.3 sec (22.0-30.0)
--- NOTE | 2023-05-04 19:52 | XR ---
EXAMINATION TYPE: XR chest 1V portable DATE OF EXAM: 05/04/2023 7:22 PM CLINICAL INDICATION:Female, 77 years old with history of altered mental status; [facility] COMPARISON: Chest radiographs from 06/05/2021 TECHNIQUE: XR chest 1V portable Frontal view of the chest. FINDINGS: Lungs/Pleura: Prominent interstitial lung markings are seen scattered throughout the lungs with khang ening of the diaphragm and increased lucency of the lung apices. No evidence of focal consolidation, pneumothorax or pleural effusion. Pulmonary vascularity: Unremarkable. Heart/mediastinum: Cardiomediastinal silhouette is enlarged and stable. Musculoskeletal: No acute osseous pathology. IMPRESSION: 1. No acute cardiopulmonary disease process. 2. COPD changes.
--- NOTE | 2023-05-04 21:49 | CT ---
EXAMINATION TYPE: CT brain wo con CT DLP: 1167.4 mGycm, Automated exposure control for dose reduction was used. DATE OF EXAM: 05/04/2023 9:36 PM COMPARISON: Pet/CT 04/02/2022, brain 01/31/2020. CLINICAL INDICATION:Female, 77 years old with history of Altered mental status, AMS TECHNIQUE: Brain: Axial CT images of the brain were obtained with coronal and sagittal reformats created and rev iewed. Contrast used: None. Oral contrast used: None. FINDINGS: Brain: Extra-axial spaces: No abnormal extra-axial fluid collections. Ventricular system: Dilatation in proportion to cerebral atrophy. Cerebral parenchyma: Remote injury to the right frontal lobe and bilateral parietal regions and bilat eral cerebellar hemispheres with encephalomalacia. Cerebral atrophy. No acute intraparenchymal hemorr martita or mass effect. The quintanilla-white junction is well differentiated. Scattered hypoattenuating areas are seen within the white matter. Cerebellum: Remote injuries to the bilateral cerebellar hemispheres. Mass effect: No evidence of midline shift. Intracranial vasculature: Atherosclerotic calcifications of the intracranial vessels. Soft tissues: Normal. Calvarium/osseous structures: No depressed skull fracture. Paranasal sinuses and mastoid air cells: Mild scattered paranasal sinus disease. Visualized orbits: Bilateral aphakia IMPRESSION: 1. No acute intracranial process. 2. Nonspecific white matter changes, likely secondary to chronic small vessel ischemic disease. 2. Encephalomalacia scattered throughout the brain from remote injuries. Including right frontal, reji ateral parietal, bilateral cerebellar regions
[2023-05-04] MEDS ORDERED: MORPHINE SULFATE 4 MG/ML SYRINGE IV PRN (22:04)
[2023-05-04] MEDS ORDERED: NALOXONE 0.4 MG/ML 1 ML VIAL IV PRN (22:04)
[2023-05-04] MEDS ORDERED: ACETAMINOPHEN TAB 325 MG TAB PO PRN (22:04)
[2023-05-04] MEDS ORDERED: ONDANSETRON 4 MG/2 ML VIAL IVP PRN (22:04)
[2023-05-04] MEDS: SODIUM CHLORIDE 0.9% 1,000 ML IV SCH (22:19)
[2023-05-05 06:35] LABS: Appearance,Urine Clear (Clear); Bacteria,Urine Rare /hpf; Bilirubin,Urine Negative (Negative); Blood,Urine Large (Negative); Color,Urine Yellow; Glucose,Urine (UA) Negative (Negative); Ketones,Urine Negative (Negative); Leukocyte Esterase,Urine Negative (Negative); Nitrite,Urine Negative (Negative); Protein,Urine 1+ (Negative); RBC,Urine 10 /hpf (0-5); Specific Gravity,Urine 1.016 (1.001-1.035); Squamous Epithelial Cell,Urine 1 /hpf (0-4); Urobilinogen,Urine <2.0 mg/dL (<2.0); WBC,Urine 2 /hpf (0-5)
[2023-05-05 06:37] LABS: Amphetamine Screen,Urine Not Detected (NotDetected); Barbiturate Screen,Urine Not Detected (NotDetected); Benzodiazepines Screen,Urine Not Detected (NotDetected); Cocaine Screen,Urine Not Detected (NotDetected); Methadone Screen, Urine Not Detected (NotDetected); Opiate Screen,Urine Not Detected (NotDetected); Oxycodone Screen, Urine Not Detected (NotDetected); Phencyclidine Screen,Urine Not Detected (NotDetected); Tricyclic Antidepressant,Urine Not Detected (NotDetected); Urn Cannabinoid Scrn Not Detected (NotDetected)
[2023-05-05 07:09] LABS: Basophils % (A) 0 %; Eosinophils % (A) 0 %; HCT 33.6 % (34.0-46.0); HGB 10.8 gm/dL (11.4-16.0); Hypochromasia Slight; Lymphocytes # (A) 0.6 k/uL (1.0-4.8); Lymphocytes % (A) 10 %; MCH 30.6 pg (25.0-35.0); MCHC 32.2 g/dL (31.0-37.0); MCV 95.1 fL (80.0-100.0); Mean Platelet Volume 8.3; Monocytes # (A) 0.4 k/uL (0-1.0); Monocytes % (A) 7 %; Neutrophils % (A) 82 %; Platelet Count 120 k/uL (150-450); RBC 3.54 m/uL (3.80-5.40); WBC 6.2 k/uL (3.8-10.6)
[2023-05-05 07:27] LABS: ALT 22 U/L (4-34); AST 79 U/L (14-36); African American GFR (CKD) 34 (>60 ml/min/1.73 sqM); Albumin 2.9 g/dL (3.5-5.0); Alkaline Phosphatase 52 U/L (38-126); Anion Gap 9 mmol/L; Blood Urea Nitrogen 26 mg/dL (7-17); Calcium 8.6 mg/dL (8.4-10.2); Carbon Dioxide 23 mmol/L (22-30); Chloride 106 mmol/L (98-107); Glucose 91 mg/dL (74-99); Magnesium 1.7 mg/dL (1.6-2.3); Non-African American GFR(CKD) 30 (>60 ml/min/1.73 sqM); Phosphorus 4.2 mg/dL (2.5-4.5); Potassium 3.6 mmol/L (3.5-5.1); Sodium 138 mmol/L (137-145); Total Bilirubin 1.4 mg/dL (0.2-1.3); Total Protein 5.4 g/dL (6.3-8.2)
[2023-05-05] MEDS ORDERED: ALBUTEROL NEBULIZED 2.5 MG/3 ML INHALATION PRN (09:09)
[2023-05-05] MEDS ORDERED: BENZONATATE 100 MG CAP PO PRN (09:11)
--- NOTE | 2023-05-05 09:44 | P.CRDCN ---
History of Present Illness Consult date: 05/05/23 Chief complaint: Reason for the consult is in atrial fibrillation History of present illness: The patient is a 77-year-old female patient with a past medical history significant for permanent H or fibrillation. The patient is not on anticoagula tion. As a matter of fact reviewing her home medications she is not on any medications she is not on anticoagulation for unknown reason likely history of falling and possible high risk of bleeding. The patient also is extremely poor historian. She stated that she presented to the hospital because she has been feeling weak and she has been falling and she also was noticed to have change in mental status according to the ER staff. She was diagnosed with COVID 19 infection and she has been afebrile consulted the patient because of abnormal troponin. EKG showed atrial fibrillation with diffuse nonspecific ST or T-wave abnormalities and more importantly the patient did not have any symptoms of chest pain or chest discomfort or shortness of breath or any feeling of heart racing or fluttering. She remains in atrial fibrillation with controlled heart rate was no AV divina roshni agents. The examination is remarkable for irregular rhythm with distant heart sounds and diminished breathing sounds bilaterally and no lower extremity edema Assessment COVID 19 infection Evidence of myocardial injury was no evidence of ischemia History of cardiomyopathy Multiple comorbid conditions Plan Conservative medical treatment for the abnormal troponin No need for further cardiac workup Past Medical History Past Medical History: Atrial Fibrillation, Cancer, CVA/TIA, GI Bleed, Hyperlipidemia, Myocardial Infarction ([place]) Additional Past Medical History / Comment(s): 07/27/17 FALL'LT HIP FX. 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 History of COVID-19, cervical cancer treated with radiation. No taking Eliquis due to bleeding issues in past. Last Myocardial Infarction Date:: 2009 History of Any Multi-Drug Resistant Organisms: None Reported Past Surgical History: Heart Catheterization, Orthopedic Surgery, Tonsillectomy Additional Past Surgical History / Comment(s): ORIF RT ANKLE HAS PLATE. Past Anesthesia/Blood Transfusion Reactions: No Reported Reaction Past Psychological History: No Psychological Hx Reported Smoking Status: Former smoker, Never smoker Past Alcohol Use History: None Reported Past Drug Use History: None Reported - Past Family History Mother Family Medical History: No Reported History Additional Family Medical History / Comment(s): FROM ANUERYSM Father Family Medical History: No Reported History Medications and Allergies Home Medications Medication Instructions Recorded Confirmed Type Anastrozole [Arimidex] 1 mg PO DAILY 05/04/23 05/04/23 History Allergies Allergy/AdvReac Type Severity Reaction Status Date / Time No Known Allergies Allergy Verified 05/04/23 18:21 Physical Exam Vitals: Vital Signs Temp Pulse Resp BP Pulse Ox 05/05/23 06:00 97 05/05/23 04:00 78 18 113/97 96 05/05/23 02:00 77 17 129/84 97 05/05/23 00:00 73 15 113/65 05/04/23 20:00 98.4 F 109 H 20 125/85 95 05/04/23 18:12 101.4 F H 134 H 20 154/126 95 Intake and Output 05/04/23 05/05/23 05/05/23 22:59 06:59 14:59 Other: Weight 77.111 kg Results 05/05/23 06:13 05/05/23 06:13 Cardiac Enzymes 05/04/23 05/04/23 05/05/23 Range/Units 18:53 18:53 00:47 AST 32 (14-36) U/L Troponin I 0.051 H* 0.118 H* (0.000-0.034) ng/mL 05/05/23 05/05/23 Range/Units 06:13 06:13 AST 79 H (14-36) U/L Troponin I 0.098 H* (0.000-0.034) ng/mL Coagulation 05/04/23 Range/Units 18:53 PT 11.5 (10.0-12.5) sec APTT 21.3 L (22.0-30.0) sec CBC 05/04/23 05/05/23 Range/Units 18:53 06:13 WBC 8.3 6.2 (3.8-10.6) k/uL RBC 3.77 L 3.54 L (3.80-5.40) m/uL Hgb 11.4 10.8 L (11.4-16.0) gm/dL Hct 35.5 33.6 L (34.0-46.0) % Plt Count 140 L 120 L (150-450) k/uL Comprehensive Metabolic Panel 05/04/23 05/05/23 Range/Units 18:53 06:13 Sodium 136 L 138 (137-145) mmol/L Potassium 4.0 3.6 (3.5-5.1) mmol/L Chloride 103 106 (98-107) mmol/L Carbon Dioxide 20 L 23 (22-30) mmol/L BUN 26 H 26 H (7-17) mg/dL Creatinine 1.73 H 1.64 H (0.52-1.04) mg/dL Glucose 136 H 91 (74-99) mg/dL Calcium 8.9 8.6 (8.4-10.2) mg/dL AST 32 79 H (14-36) U/L ALT 15 22 (4-34) U/L Alkaline Phosphatase 57 52 (38-126) U/L Total Protein 6.2 L 5.4 L (6.3-8.2) g/dL Albumin 3.5 2.9 L (3.5-5.0) g/dL Current Medications Generic Name Dose Route Start Last Admin Trade Name Freq PRN Reason Stop Dose Admin Acetaminophen 650 mg 05/04/23 22:04 Acetaminophen Tab 325 Mg Tab PO Q6HR PRN Mild Pain or Fever > 100.5 Albuterol Sulfate 2.5 mg 05/05/23 09:09 Albuterol Nebulized 2.5 Mg/3 Ml INHALATION RT-Q6H PRN Shortness Of Breath Or Wheezing Benzonatate 200 mg 05/05/23 09:11 Benzonatate 100 Mg Cap PO TID PRN Cough Dexamethasone Sodium Phosphate 6 mg 05/05/23 09:15 Dexamethasone Sod Phosphate 10 Mg/Ml 1 Ml Vial IVP DAILY KALPESH Guaifenesin 600 mg 05/05/23 09:15 Guaifenesin 600 Mg Tablet.Er PO Q12HR KALPESH Sodium Chloride 1,000 mls @ 75 mls/hr 05/04/23 22:15 05/04/23 22:19 Saline 0.9% IV 75 mls/hr .[id number] KALPESH Administration Ibuprofen 400 mg 05/04/23 22:04 Ibuprofen 400 Mg Tab PO Q6HR PRN Mild Pain or Fever > 100.5 Melatonin 5 mg 05/05/23 09:11 Melatonin 5 Mg Tablet PO HS PRN Insomnia Morphine Sulfate 4 mg 05/04/23 22:04 Morphine Sulfate 4 Mg/Ml Syringe IV Q4HR PRN Severe Pain (Scale 7 to 10) Naloxone HCl 0.2 mg 05/04/23 22:04 Naloxone 0.4 Mg/Ml 1 Ml Vial IV Q2M PRN Opioid Reversal Ondansetron HCl 4 mg 05/04/23 22:04 Ondansetron 4 Mg/2 Ml Vial IVP Q8HR PRN Nausea And Vomiting Intake and Output 05/04/23 05/05/23 05/05/23 22:59 06:59 14:59 Other: Weight 77.111 kg 05/05/23 06:13 05/05/23 06:13
[2023-05-05] MEDS: guaiFENesin 600 MG TABLET.ER PO SCH ×2 (10:33→20:48)
[2023-05-05] MEDS: DEXAMETHASONE SOD PHOSPHATE 10 MG/ML 1 ML VIAL IVP SCH (10:33)
--- NOTE | 2023-05-05 13:20 | P.HPIM ---
History of Present Illness H&P Date: 05/05/23 History of present illness; patient is a 77-year-old lady with past medical sign ificant for endometrial cancer, atrial fibrillation, hyperlipidemia who presented to the ER for altered mental status and fever. Patient was was found laying on the floor. Patient was confused. Patient apparently was trying to get out of her bed when she slid and fell on the floor. Patient was too weak to get up. Patient stated that she was feeling weak for the last few days Patient was having high fevers. No complain of shortness of breath. Denied any chest pain or palpitation. Because of these complaints, patient was brought to the ER Initial lab work done in the ER showed WBC 8.3, hemoglobin 11.4, platelet count 140, sodium 136, potassium 4, BUN 26, creatinine 1.73, troponin 0.051 EKG done in the ER heart rate of 137, no P waves seen, no ST segment elevation noticeable, no ST segment depression depression, CT brain done showed no acute intracranial process Chest x-ray done in the ER showed no acute cardiac process, COPD changes Patient admitted to medicine service REVIEW OF SYSTEMS: CONSTITUTIONAL: As mentioned above HEENT: No recent visual problems or hearing problems. Denied any sore throat. CARDIOVASCULAR: No chest pain, orthopnea, PND, no palpitations, no syncope. PULMONARY: No shortness of breath, no cough, no hemoptysis. GASTROINTESTINAL: No diarrhea, no nausea, no vomiting, no abdominal pain. NEUROLOGICAL: No headaches, no weakness, no numbness. HEMATOLOGICAL: Denies any bleeding or petechiae. GENITOURINARY: Denies any burning micturition, frequency, or urgency. MUSCULOSKELETAL/RHEUMATOLOGICAL: Denies any joint pain, swelling, or any muscle pain. ENDOCRINE: Denies any polyuria or polydipsia. The rest of the 14-point review of systems is negative. PHYSICAL EXAMINATION: GENERAL: The patient is alert and oriented x3, not in any acute distress. Chronically ill-looking HEENT: Pupils are round and equally reacting to light. EOMI. No scleral icterus. No conjunctival pallor. Normocephalic, atraumatic. No pharyngeal erythema. No thyromegaly. CARDIOVASCULAR: S1 and S2 present. No murmurs, rubs, or gallops. PULMONARY: Chest is clear to auscultation, no wheezing or crackles. ABDOMEN: Soft, nontender, nondistended, normoactive bowel sounds. No palpable organomegaly. MUSCULOSKELETAL: No joint swelling or deformity. EXTREMITIES: No cyanosis, clubbing, or pedal edema. NEUROLOGICAL: Gross neurological examination did not reveal any focal deficits. SKIN: No rashes. Assessment and plan Acute Metabolic encephalopathy A. fib with RVR Fall Elevated troponin Acute kidney injury COVID-19 infection History of endometrial cancer Chronic kidney disease, stage IIIb History of atrial fibrillation on Eliquis History of CVA/TIA Hypertension Monitor vital signs Monitor CBC Monitor CMP Continue telemetry monitoring Monitor renal function Avoid nephrotoxic agents Check daily COVID-19 Start patient on Decadron. Trend troponins. Ordered 2-D echo Consult cardiology Consult ID Labs and medication were reviewed.. Continue same treatment. Continue with symptomatic treatment. Resume home medication. Monitor labs and vitals. DVT and GI prophylaxis. Further recommendations as per clinical course of the patient Dictation was produced using [employer] dictation software. please excuse any grammatical, word or spelling errors. Past Medical History Past Medical History: Atrial Fibrillation, Cancer, CVA/TIA, GI Bleed, Hyperlipidemia, Myocardial Infarction ([place]) Additional Past Medical History / Comment(s): 07/27/17 FALL'LT HIP FX. 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 History of COVID-19, cervical cancer treated with radiation. No taking Eliquis due to bleeding issues in past. Last Myocardial Infarction Date:: 2009 History of Any Multi-Drug Resistant Organisms: None Reported Past Surgical History: Heart Catheterization, Orthopedic Surgery, Tonsillectomy Additional Past Surgical History / Comment(s): ORIF RT ANKLE HAS PLATE. Past Anesthesia/Blood Transfusion Reactions: No Reported Reaction Past Psychological History: No Psychological Hx Reported Smoking Status: Former smoker, Never smoker Past Alcohol Use History: None Reported Past Drug Use History: None Reported - Past Family History Mother Family Medical History: No Reported History Additional Family Medical History / Comment(s): FROM ANUERYSM Father Family Medical History: No Reported History Medications and Allergies Home Medications Medication Instructions Recorded Confirmed Type Anastrozole [Arimidex] 1 mg PO DAILY 05/04/23 05/04/23 History Allergies Allergy/AdvReac Type Severity Reaction Status Date / Time No Known Allergies Allergy Verified 05/04/23 18:21 Physical Exam Vitals: Vital Signs Temp Pulse Resp BP Pulse Ox 05/05/23 06:00 97 05/05/23 04:00 78 18 113/97 96 05/05/23 02:00 77 17 129/84 97 05/05/23 00:00 73 15 113/65 05/04/23 20:00 98.4 F 109 H 20 125/85 95 05/04/23 18:12 101.4 F H 134 H 20 154/126 95 Intake and Output 05/04/23 05/05/23 05/05/23 22:59 06:59 14:59 Other: Weight 77.111 kg Results CBC & Chem 7: 05/05/23 06:13 05/05/23 06:13 Labs: Abnormal Lab Results - Last 24 Hours (Table) 05/04/23 05/04/23 05/04/23 Range/Units 18:53 18:53 18:53 RBC 3.77 L (3.80-5.40) m/uL Hgb (11.4-16.0) gm/dL Hct (34.0-46.0) % Plt Count 140 L (150-450) k/uL Lymphocytes # 0.2 L (1.0-4.8) k/uL APTT 21.3 L (22.0-30.0) sec Sodium 136 L (137-145) mmol/L Carbon Dioxide 20 L (22-30) mmol/L BUN 26 H (7-17) mg/dL Creatinine 1.73 H (0.52-1.04) mg/dL Glucose 136 H (74-99) mg/dL Total Bilirubin 1.9 H (0.2-1.3) mg/dL AST (14-36) U/L Troponin I (0.000-0.034) ng/mL Total Protein 6.2 L (6.3-8.2) g/dL Albumin (3.5-5.0) g/dL Urine Protein (Negative) Urine Blood (Negative) Urine RBC (0-5) /hpf Urine Bacteria (None) /hpf SARS-CoV-2 (PCR) (Not Detectd) 05/04/23 05/04/23 05/05/23 Range/Units 18:53 18:53 00:47 RBC (3.80-5.40) m/uL Hgb (11.4-16.0) gm/dL Hct (34.0-46.0) % Plt Count (150-450) k/uL Lymphocytes # (1.0-4.8) k/uL APTT (22.0-30.0) sec Sodium (137-145) mmol/L Carbon Dioxide (22-30) mmol/L BUN (7-17) mg/dL Creatinine (0.52-1.04) mg/dL Glucose (74-99) mg/dL Total Bilirubin (0.2-1.3) mg/dL AST (14-36) U/L Troponin I 0.051 H* 0.118 H* (0.000-0.034) ng/mL Total Protein (6.3-8.2) g/dL Albumin (3.5-5.0) g/dL Urine Protein (Negative) Urine Blood (Negative) Urine RBC (0-5) /hpf Urine Bacteria (None) /hpf SARS-CoV-2 (PCR) Detected A (Not Detectd) 05/05/23 05/05/23 05/05/23 Range/Units 05:28 06:13 06:13 RBC 3.54 L (3.80-5.40) m/uL Hgb 10.8 L (11.4-16.0) gm/dL Hct 33.6 L (34.0-46.0) % Plt Count 120 L (150-450) k/uL Lymphocytes # 0.6 L (1.0-4.8) k/uL APTT (22.0-30.0) sec Sodium (137-145) mmol/L Carbon Dioxide (22-30) mmol/L BUN (7-17) mg/dL Creatinine (0.52-1.04) mg/dL Glucose (74-99) mg/dL Total Bilirubin (0.2-1.3) mg/dL AST (14-36) U/L Troponin I 0.098 H* (0.000-0.034) ng/mL Total Protein (6.3-8.2) g/dL Albumin (3.5-5.0) g/dL Urine Protein 1+ H (Negative) Urine Blood Large H (Negative) Urine RBC 10 H (0-5) /hpf Urine Bacteria Rare H (None) /hpf SARS-CoV-2 (PCR) (Not Detectd) 05/05/23 Range/Units 06:13 RBC (3.80-5.40) m/uL Hgb (11.4-16.0) gm/dL Hct (34.0-46.0) % Plt Count (150-450) k/uL Lymphocytes # (1.0-4.8) k/uL APTT (22.0-30.0) sec Sodium (137-145) mmol/L Carbon Dioxide (22-30) mmol/L BUN 26 H (7-17) mg/dL Creatinine 1.64 H (0.52-1.04) mg/dL Glucose (74-99) mg/dL Total Bilirubin 1.4 H (0.2-1.3) mg/dL AST 79 H (14-36) U/L Troponin I (0.000-0.034) ng/mL Total Protein 5.4 L (6.3-8.2) g/dL Albumin 2.9 L (3.5-5.0) g/dL Urine Protein (Negative) Urine Blood (Negative) Urine RBC (0-5) /hpf Urine Bacteria (None) /hpf SARS-CoV-2 (PCR) (Not Detectd)
[2023-05-05] MEDS: SODIUM CHLORIDE 0.9% 1,000 ML IV SCH ×2 (15:47→20:49)
[2023-05-06 08:42] LABS: Basophils % (A) 0 %; Eosinophils % (A) 1 %; HCT 33.9 % (34.0-46.0); HGB 10.9 gm/dL (11.4-16.0); Lymphocytes # (A) 0.6 k/uL (1.0-4.8); Lymphocytes % (A) 9 %; MCH 30.5 pg (25.0-35.0); MCHC 32.2 g/dL (31.0-37.0); MCV 94.8 fL (80.0-100.0); Mean Platelet Volume 8.5; Monocytes # (A) 0.4 k/uL (0-1.0); Monocytes % (A) 6 %; Neutrophils # (A) 5.1 k/uL (1.3-7.7); Neutrophils % (A) 83 %; Platelet Count 130 k/uL (150-450); RBC 3.58 m/uL (3.80-5.40); RDW 14.1 % (11.5-15.5); WBC 6.1 k/uL (3.8-10.6)
[2023-05-06] MEDS: DEXAMETHASONE SOD PHOSPHATE 10 MG/ML 1 ML VIAL IVP SCH (08:46)
[2023-05-06] MEDS: ZINC SULFATE 220 MG CAP PO SCH (08:46)
[2023-05-06] MEDS: guaiFENesin 600 MG TABLET.ER PO SCH ×2 (08:46→20:21)
[2023-05-06] MEDS: ASCORBIC ACID 500 MG TAB PO SCH (08:46)
[2023-05-06 09:04] LABS: ALT 27 U/L (4-34); AST 78 U/L (14-36); African American GFR (CKD) 36 (>60 ml/min/1.73 sqM); Albumin 2.7 g/dL (3.5-5.0); Albumin/Globulin Ratio 1.1; Alkaline Phosphatase 50 U/L (38-126); Anion Gap 10 mmol/L; Blood Urea Nitrogen 32 mg/dL (7-17); Calcium 8.5 mg/dL (8.4-10.2); Carbon Dioxide 20 mmol/L (22-30); Chloride 106 mmol/L (98-107); Globulin 2.5 g/dL; Glucose 90 mg/dL (74-99); Non-African American GFR(CKD) 31 (>60 ml/min/1.73 sqM); Potassium 3.9 mmol/L (3.5-5.1); Sodium 136 mmol/L (137-145); Total Bilirubin 0.8 mg/dL (0.2-1.3); Total Protein 5.2 g/dL (6.3-8.2)
--- NOTE | 2023-05-06 09:07 | P.CONS ---
History of Present Illness - Reason for Consult Consult date: 05/05/23 covid 19 infection Requesting physician: Tay Medina - Chief Complaint mental status changes x 1 day - History of Present Illness Patient is a 77-year-old female with a past medical history significant for hyperlipidemia atrial fibrillation [place] CVA TIA cervical cancer treated with radiation presenting to the hospital last evening for evaluation of mental status changes found on the ground patient mention has been feeling weak for the last few days patient denies having any headache, patient to have mild URI symptoms no chest pain mild shortness of breath minimal cough no sputum production patient denies any nausea vomiting has been complaining of mostly diarrhea with multiple loose stools denies any blood or mucus in the stools completely separate the patient has been evaluated on presentation to the hospital patient did have a fever up to 101.4 F, patient was nontachycardic or hypotensive O2 sats 100% on room air patient did have a normal white count with lymphopenia. Creatinine has been mildly elevated levels in the normal troponins are elevated urine has been negative urinalysis was negative COVID Was positive influenza RSV was negative patient did have a chest x-ray no acute cardiopulmonary disease process COPD changes CT of the brain no acute intracranial process patient has been admitted to hospital infectious disease was consulted regarding COVID-19 Review of Systems Positive point and negatives has been mentioned in the HPI, complete review of systems was performed and all other systems are negative Past Medical History Past Medical History: Atrial Fibrillation, Cancer, CVA/TIA, GI Bleed, Hyperlipidemia, Myocardial Infarction ([place]) Additional Past Medical History / Comment(s): 07/27/17 FALL'LT HIP FX. 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 History of COVID-19, cervical cancer treated with radiation. No taking Eliquis due to bleeding issues in past. Last Myocardial Infarction Date:: 2009 History of Any Multi-Drug Resistant Organisms: None Reported Past Surgical History: Heart Catheterization, Orthopedic Surgery, Tonsillectomy Additional Past Surgical History / Comment(s): ORIF RT ANKLE HAS PLATE. Past Anesthesia/Blood Transfusion Reactions: No Reported Reaction Past Psychological History: No Psychological Hx Reported Smoking Status: Former smoker, Never smoker Past Alcohol Use History: None Reported Past Drug Use History: None Reported - Past Family History Mother Family Medical History: No Reported History Additional Family Medical History / Comment(s): FROM ANUERYSM Father Family Medical History: No Reported History Medications and Allergies Home Medications Medication Instructions Recorded Confirmed Type Anastrozole [Arimidex] 1 mg PO DAILY 05/04/23 05/04/23 History Aspirin 81 mg PO DAILY 30 Days #30 tab 05/10/23 Rx Benzonatate [Tessalon Perles] 200 mg PO TID PRN 7 Days #21 cap 05/10/23 Rx Metoprolol Tartrate [Lopressor] 50 mg PO TID 30 Days #60 tab 05/10/23 Rx amLODIPine [Norvasc] 10 mg PO DAILY 30 Days #30 tab 05/10/23 Rx dexAMETHasone [Decadron] 6 mg PO DAILY 4 Days #4 tablet 05/10/23 Rx Allergies Allergy/AdvReac Type Severity Reaction Status Date / Time No Known Allergies Allergy Verified 05/04/23 18:21 Physical Exam Vitals: Vital Signs Temp Pulse Resp BP Pulse Ox 05/05/23 06:00 97 05/05/23 04:00 78 18 113/97 96 05/05/23 02:00 77 17 129/84 97 05/05/23 00:00 73 15 113/65 05/04/23 20:00 98.4 F 109 H 20 125/85 95 05/04/23 18:12 101.4 F H 134 H 20 154/126 95 Intake and Output 05/04/23 05/05/23 05/05/23 22:59 06:59 14:59 Other: Weight 77.111 kg GENERAL DESCRIPTION: Elderly female lying in bed, no distress. No tachypnea or accessory muscle of respiration use. HEENT: Shows Pallor , no scleral icterus. Oral mucous membrane is dry. NECK: Trachea central, no thyromegaly. LUNGS: Unlabored breathing. decreased breath sounds at base No wheeze or crackle. HEART: S1, S2, regular rate and rhythm. ABDOMEN: Soft, no tenderness , guarding or rigidity EXTREMITIES: No edema of feet. SKIN: No rash, no masses palpable. NEUROLOGICAL: The patient is awake, alert, oriented x3, mood and affect normal. Results CBC & Chem 7: 05/10/23 04:37 05/10/23 04:37 Labs: Abnormal Lab Results - Last 24 Hours (Table) 05/04/23 05/04/23 05/04/23 Range/Units 18:53 18:53 18:53 RBC 3.77 L (3.80-5.40) m/uL Hgb (11.4-16.0) gm/dL Hct (34.0-46.0) % Plt Count 140 L (150-450) k/uL Lymphocytes # 0.2 L (1.0-4.8) k/uL APTT 21.3 L (22.0-30.0) sec Sodium 136 L (137-145) mmol/L Carbon Dioxide 20 L (22-30) mmol/L BUN 26 H (7-17) mg/dL Creatinine 1.73 H (0.52-1.04) mg/dL Glucose 136 H (74-99) mg/dL Total Bilirubin 1.9 H (0.2-1.3) mg/dL AST (14-36) U/L Troponin I (0.000-0.034) ng/mL Total Protein 6.2 L (6.3-8.2) g/dL Albumin (3.5-5.0) g/dL Urine Protein (Negative) Urine Blood (Negative) Urine RBC (0-5) /hpf Urine Bacteria (None) /hpf SARS-CoV-2 (PCR) (Not Detectd) 05/04/23 05/04/23 05/05/23 Range/Units 18:53 18:53 00:47 RBC (3.80-5.40) m/uL Hgb (11.4-16.0) gm/dL Hct (34.0-46.0) % Plt Count (150-450) k/uL Lymphocytes # (1.0-4.8) k/uL APTT (22.0-30.0) sec Sodium (137-145) mmol/L Carbon Dioxide (22-30) mmol/L BUN (7-17) mg/dL Creatinine (0.52-1.04) mg/dL Glucose (74-99) mg/dL Total Bilirubin (0.2-1.3) mg/dL AST (14-36) U/L Troponin I 0.051 H* 0.118 H* (0.000-0.034) ng/mL Total Protein (6.3-8.2) g/dL Albumin (3.5-5.0) g/dL Urine Protein (Negative) Urine Blood (Negative) Urine RBC (0-5) /hpf Urine Bacteria (None) /hpf SARS-CoV-2 (PCR) Detected A (Not Detectd) 05/05/23 05/05/23 05/05/23 Range/Units 05:28 06:13 06:13 RBC 3.54 L (3.80-5.40) m/uL Hgb 10.8 L (11.4-16.0) gm/dL Hct 33.6 L (34.0-46.0) % Plt Count 120 L (150-450) k/uL Lymphocytes # 0.6 L (1.0-4.8) k/uL APTT (22.0-30.0) sec Sodium (137-145) mmol/L Carbon Dioxide (22-30) mmol/L BUN (7-17) mg/dL Creatinine (0.52-1.04) mg/dL Glucose (74-99) mg/dL Total Bilirubin (0.2-1.3) mg/dL AST (14-36) U/L Troponin I 0.098 H* (0.000-0.034) ng/mL Total Protein (6.3-8.2) g/dL Albumin (3.5-5.0) g/dL Urine Protein 1+ H (Negative) Urine Blood Large H (Negative) Urine RBC 10 H (0-5) /hpf Urine Bacteria Rare H (None) /hpf SARS-CoV-2 (PCR) (Not Detectd) 05/05/23 Range/Units 06:13 RBC (3.80-5.40) m/uL Hgb (11.4-16.0) gm/dL Hct (34.0-46.0) % Plt Count (150-450) k/uL Lymphocytes # (1.0-4.8) k/uL APTT (22.0-30.0) sec Sodium (137-145) mmol/L Carbon Dioxide (22-30) mmol/L BUN 26 H (7-17) mg/dL Creatinine 1.64 H (0.52-1.04) mg/dL Glucose (74-99) mg/dL Total Bilirubin 1.4 H (0.2-1.3) mg/dL AST 79 H (14-36) U/L Troponin I (0.000-0.034) ng/mL Total Protein 5.4 L (6.3-8.2) g/dL Albumin 2.9 L (3.5-5.0) g/dL Urine Protein (Negative) Urine Blood (Negative) Urine RBC (0-5) /hpf Urine Bacteria (None) /hpf SARS-CoV-2 (PCR) (Not Detectd) Assessment and Plan (1) COVID-19 Status: Acute Code(s): U07.1 - COVID-19 SNOMED Code(s): 860359250 Plan: 1patient presented to hospital with weakness which is likely multifactorial patient is tested positive for COVID-19 however the patient is not hypoxic currently not requiring supplemental oxygen chest x-ray was reported negative for acute infiltrate more likely representing mild COVID-19 infection and did not qualify for remdesivir per [facility] policy 2-patient did have significant diarrhea more likely due to COVID-19 however we will check a stool studies to rule out other etiologies 3-we will add zinc ascorbic acid need for anticoagulation on the basis of elevated troponin cardiology 4-droplet isolation We will follow on clinical condition and cultures to further adjust medication if needed Thank you for this consultation we will follow the patient along with you Dictation was produced using [employer] dictation software. please excuse any grammatical, word or spelling errors. Time with Patient: Greater than 30
[2023-05-06] MEDS ORDERED: METOPROLOL TARTRATE 12.5 MG TAB PO SCH (10:45)
[2023-05-06 10:51] LABS: C Reactive Protein 6.2 mg/dL (<1.0)
--- NOTE | 2023-05-06 12:25 | P.PN ---
Subjective Progress Note Date: 05/06/23 Principal diagnosis: Atrial fibrillation The patient is a 77-year-old female patient with a past medical history significant for permanent H or fibrillation. The patient is not on anticoagulation. As a matter of fact reviewing her home medications she is not on any medications she is not on anticoagulation for unknown reason likely history of falling and possible high risk of bleeding. The patient also is extremely poor historian. She stated that she presented to the hospital because she has been feeling weak and she has been falling and she also was noticed to have change in mental status according to the ER staff. She was diagnosed with COVID 19 infection and she has been afebrile consulted the patient because of abnormal troponin. EKG showed atrial fibrillation with diffuse nonspecific ST or T-wave abnormalities and more importantly the patient did not have any symptoms of chest pain or chest discomfort or shortness of breath or any feeling of heart racing or fluttering. She remains in atrial fibrillation with controlled heart rate was no AV divina roshni agents. The examination is remarkable for irregular rhythm with distant heart sounds and diminished breathing sounds bilaterally and no lower extremity edema 05/06/2023 The patient was seen today. She is feeling overall better. The blood pressure remains elevated and also she is slightly tachycardic. I'm going to increase the dose of metoprolol to 25 mg by mouth twice a day. She reports no pain in the chest and no shortness of breath at this point. The examination is remarkable for diminished breathing sounds bilaterally with irregular rhythm with overall slight tachycardia. No edema in the lower extremities noted Assessment COVID 19 infection Evidence of myocardial injury was no evidence of ischemia History of cardiomyopathy Atrial fibrillation Hypertension Plan Conservative medical treatment for the abnormal troponin An echocardiogram was ordered will follow-up with that Increase the dose of beta roshni Follow-up with the patient Objective - Vital Signs Vital signs: Vital Signs Temp 98.5 F 05/06/23 08:15 Pulse 96 05/06/23 08:49 Resp 19 05/06/23 08:49 BP 152/94 05/06/23 08:15 Pulse Ox 100 05/06/23 08:15 FiO2 Intake & Output 05/05/23 05/06/23 05/06/23 18:59 06:59 18:59 Weight 77.111 kg Other: Voiding Method Diaper # Voids 1 2 - Labs CBC & Chem 7: 05/06/23 07:54 05/06/23 07:54 Labs: Abnormal Lab Results - Last 24 Hours (Table) 05/06/23 05/06/23 05/06/23 Range/Units 07:54 07:54 07:54 RBC 3.58 L (3.80-5.40) m/uL Hgb 10.9 L (11.4-16.0) gm/dL Hct 33.9 L (34.0-46.0) % Plt Count 130 L (150-450) k/uL Lymphocytes # 0.6 L (1.0-4.8) k/uL D-Dimer 2.22 H (<0.60) mg/L FEU Sodium 136 L (137-145) mmol/L Carbon Dioxide 20 L (22-30) mmol/L BUN 32 H (7-17) mg/dL Creatinine 1.57 H (0.52-1.04) mg/dL AST 78 H (14-36) U/L C-Reactive Protein 6.2 H (<1.0) mg/dL Total Protein 5.2 L (6.3-8.2) g/dL Albumin 2.7 L (3.5-5.0) g/dL
[2023-05-06] MEDS ORDERED: METOPROLOL TARTRATE 5 MG/5 ML VIAL IVP PRN (13:34)
--- NOTE | 2023-05-06 13:36 | P.PN ---
Subjective Progress Note Date: 05/06/23 patient is a 77-year-old lady with past medical significant for endometrial cancer, atrial fibrillation, hyperlipidemia who presented to the ER for altered mental status and fever. Patient was was found laying on the floor. Patient was confused. Patient apparently was trying to get out of her bed when she slid and fell on the floor. Patient was too weak to get up. Patient stated that she was feeling weak for the last few days Patient was having high fevers. No complain of shortness of breath. Denied any chest pain or palpitation. Because of these complaints, patient was brought to the ER Initial lab work done in the ER showed WBC 8.3, hemoglobin 11.4, platelet count 140, sodium 136, potassium 4, BUN 26, creatinine 1.73, troponin 0.051 EKG done in the ER heart rate of 137, no P waves seen, no ST segment elevation noticeable, no ST segment depression depression, CT brain done showed no acute intracranial process Chest x-ray done in the ER showed no acute cardiac process, COPD changes Patient admitted to medicine service 05/06. Patient seen and examined. Blood work done this morning showed WBC 6.1, hemoglobin 10.9, sodium 136, potassium 3.9, BUN 32, creatinine 1.57. Patient continues to be in A. fib with rate ranging from 90s to early 130s. REVIEW OF SYSTEMS: CONSTITUTIONAL: No fever, no malaise,. CARDIOVASCULAR: No chest pain, no palpitations, no syncope. PULMONARY: No shortness of breath, no cough, GASTROINTESTINAL: No diarrhea, no nausea, no vomiting, no abdominal pain. NEUROLOGICAL: No headaches, no weakness, PHYSICAL EXAMINATION: GENERAL: The patient is alert and oriented x3, not in any acute distress. Well developed, well nourished. HEENT: Pupils are round and equally reacting to light. EOMI. No scleral icterus. No conjunctival pallor. Normocephalic, atraumatic. No pharyngeal erythema. No thyromegaly. CARDIOVASCULAR: S1 and S2 present. No murmurs, rubs, or gallops. PULMONARY: Chest is clear to auscultation, no wheezing or crackles. ABDOMEN: Soft, nontender, nondistended, normoactive bowel sounds. No palpable organomegaly. MUSCULOSKELETAL: No joint swelling or deformity. EXTREMITIES: No cyanosis, clubbing, or pedal edema. NEUROLOGICAL: Gross neurological examination did not reveal any focal deficits. SKIN: No rashes. Assessment and plan Acute Metabolic encephalopathy resolved A. fib with RVR resolved Fall Elevated troponin Acute kidney injury COVID-19 infection History of endometrial cancer Chronic kidney disease, stage IIIb History of atrial fibrillation on Eliquis History of CVA/TIA Hypertension Monitor vital signs Monitor CBC Monitor CMP Continue telemetry monitoring Encourage use of incentive spirometer Continue COVID-19 isolation Continue Decadron Continue breathing treatments Start Lopressor 25 mg twice a day Not on any anticoagulation because of frequent falls Cardiology evaluated the patient, recommended no ischemic workup at this time. Echo pending ID following Labs and medication were reviewed.. Continue same treatment. Continue with symptomatic treatment. Resume home medication. Monitor labs and vitals. DVT and GI prophylaxis. Further recommendations as per clinical course of the patient Dictation was produced using [employer] dictation software. please excuse any grammatical, word or spelling errors. Objective - Vital Signs Vital signs: Vital Signs Temp 98.5 F 05/06/23 08:15 Pulse 96 05/06/23 08:49 Resp 19 05/06/23 08:49 BP 152/94 05/06/23 08:15 Pulse Ox 100 05/06/23 08:15 FiO2 Intake & Output 05/05/23 05/06/23 05/06/23 18:59 06:59 18:59 Weight 77.111 kg Other: Voiding Method Diaper # Voids 1 2 - Labs CBC & Chem 7: 05/06/23 07:54 05/06/23 07:54 Labs: Abnormal Lab Results - Last 24 Hours (Table) 05/06/23 05/06/23 05/06/23 Range/Units 07:54 07:54 07:54 RBC 3.58 L (3.80-5.40) m/uL Hgb 10.9 L (11.4-16.0) gm/dL Hct 33.9 L (34.0-46.0) % Plt Count 130 L (150-450) k/uL Lymphocytes # 0.6 L (1.0-4.8) k/uL D-Dimer 2.22 H (<0.60) mg/L FEU Sodium 136 L (137-145) mmol/L Carbon Dioxide 20 L (22-30) mmol/L BUN 32 H (7-17) mg/dL Creatinine 1.57 H (0.52-1.04) mg/dL AST 78 H (14-36) U/L Total Protein 5.2 L (6.3-8.2) g/dL Albumin 2.7 L (3.5-5.0) g/dL
--- NOTE | 2023-05-06 14:14 | CA ---
Transthoracic Echo Report Name: Carli Higuera Age: 77 Gender: F : 1945 Exam Date: 05/05/2023 15:05 Exam Location: [place] [facility] Ht (in): 68 Wt (lb): 170 Ordering Physician: Tay Medina MD Attending/Referring Phys: Meal Cook Marcia Richard RDCS Procedure CPT: Indications: elevated troponin Cardiac Hx: Technical Quality: Good Contrast 1: Total Dose (mL): Contrast 2: Total Dose (mL): MEASUREMENTS (Male / Female) Normal Values 2D ECHO LV Diastolic Diameter PLAX 4.1 cm 4.2 - 5.9 / 3.9 - 5.3 cm LV Systolic Diameter PLAX 3.2 cm IVS Diastolic Thickness 1.2 cm 0.6 - 1.0 / 0.6 - 0.9 cm LVPW Diastolic Thickness 1.1 cm 0.6 - 1.0 / 0.6 - 0.9 cm LV Relative Wall Thickness 0.6 RV Internal Dim ED PLAX 2.7 cm LA Systolic Diameter LX 4.0 cm 3.0 - 4.0 / 2.7 - 3.8 cm LV Diastolic Volume MOD 4C 62.1 cm??? LV Systolic Volume MOD 4C 31.9 cm??? LV Ejection Fraction MOD 4C 48.7 % LV Cardiac Index MOD 4C 1374.9 cm???/min???m??? LV Diastolic Length 4C 7.1 cm LV Systolic Length 4C 5.9 cm LV Diastolic Volume MOD 2C 57.9 cm??? LV Systolic Volume MOD 2C 25.7 cm??? LV Ejection Fraction MOD 2C 55.5 % LV Cardiac Index MOD 2C 1460.4 cm???/min???m??? LV Diastolic Length 2C 7.3 cm LV Systolic Length 2C 6.3 cm LA Volume 82.6 cm??? 18 - 58 / 22 - 52 cm??? LA Volume Index 42.7 cm???/m??? 16 - 28 cm???/m??? DOPPLER AV Peak Velocity 141.4 cm/s AV Peak Gradient 8.0 mmHg AI Peak Velocity 487.4 cm/s AI Peak Gradient 95.0 mmHg AI Pressure Half Time 579.5 ms MV Area PHT 5.9 cm??? MV Deceleration Time 153.0 ms TR Peak Velocity 314.6 cm/s TR Peak Gradient 39.6 mmHg Right Ventricular Systolic Press 52.0 mmHg FINDINGS Left Ventricle Left ventricular ejection fraction is estimated at 45-50 %. Left ventricular cavity size normal. Mildly increased septal wall thickness. Mildly increased posterior wall thickness. Right Ventricle Normal right ventricular size. Moderate pulmonary hypertension. Right ventricular systolic pressure estimated at 52 mm hg. Right Atrium Normal right atrial size. Left Atrium Mildly increased left atrial diameter. Severely increased left atrial volume. Mildly increased left atrial area. Mitral Valve Structurally normal mitral valve. [id number] mitral regurgitation. Aortic Valve Trileaflet aortic valve. Mild aortic regurgitation. Tricuspid Valve Structurally normal tricuspid valve. Mild tricuspid regurgitation. Pulmonic Valve Structurally normal pulmonic valve. Trace pulmonic regurgitation. Pericardium No pericardial effusion. Aorta Normal size aortic root and proximal ascending aorta. CONCLUSIONS Impaired LV function. The ejection fraction is 45-50% Mild aortic regurgitation Moderate to severe mitral regurgitation Previewed by: Dr. Mario Reyes MD (Electronically Signed) Final Date: 06 May 2023 14:14
[2023-05-06] MEDS ORDERED: METOPROLOL TARTRATE 12.5 MG TAB PO ONE (14:15)
--- NOTE | 2023-05-06 14:38 | P.PN ---
Subjective Progress Note Date: 05/06/23 Principal diagnosis: Reason for follow-up is Covid 19 Patient is a 77-year-old female with a past medical history significant for hyperlipidemia atrial fibrillation MD CVA TIA cervical cancer treated with radiation presenting to the hospital for evaluation of mental sta tus changes , patient did test positive for covid 19, chest x-ray negative for acute findings also have significant diarrhea On today's evaluation that is 05/06/2023, the patient continues to be afebrile, the patient is breathing comfortably on room air and the patient denies chest pain shortness of breath did have occasional dry cough , patient denies nausea/vomiting , no abdominal pain and mention of further diarrhea Patient did have white count 6.1, creatinine 1.57 Objective - Vital Signs Vital signs: Vital Signs Temp 98.6 F 05/06/23 13:26 Pulse 103 H 05/06/23 13:26 Resp 19 05/06/23 13:26 BP 148/111 05/06/23 13:26 Pulse Ox 97 05/06/23 13:26 FiO2 Intake & Output 05/05/23 05/06/23 05/06/23 18:59 06:59 18:59 Weight 77.111 kg Other: Voiding Method Diaper # Voids 1 2 - Exam GENERAL DESCRIPTION: An elderly female lying in bed in no distress RESPIRATORY SYSTEM: Unlabored breathing , decreased breath sound the bases no wheeze HEART: S1 S2 regular rate and rhythm , ABDOMEN: Soft , no tenderness EXTREMITIES: No edema feet - Labs CBC & Chem 7: 05/06/23 07:54 05/06/23 07:54 Labs: Abnormal Lab Results - Last 24 Hours (Table) 05/06/23 05/06/23 05/06/23 Range/Units 07:54 07:54 07:54 RBC 3.58 L (3.80-5.40) m/uL Hgb 10.9 L (11.4-16.0) gm/dL Hct 33.9 L (34.0-46.0) % Plt Count 130 L (150-450) k/uL Lymphocytes # 0.6 L (1.0-4.8) k/uL D-Dimer 2.22 H (<0.60) mg/L FEU Sodium 136 L (137-145) mmol/L Carbon Dioxide 20 L (22-30) mmol/L BUN 32 H (7-17) mg/dL Creatinine 1.57 H (0.52-1.04) mg/dL AST 78 H (14-36) U/L C-Reactive Protein 6.2 H (<1.0) mg/dL Total Protein 5.2 L (6.3-8.2) g/dL Albumin 2.7 L (3.5-5.0) g/dL Assessment and Plan (1) COVID-19 Current Visit: Yes Status: Acute Code(s): U07.1 - COVID-19 SNOMED Code(s): 503039009 Plan: 1patient presented to hospital with weakness which is likely multifactorial patient is tested positive for COVID-19 however the patient is not hypoxic currently not requiring supplemental oxygen chest x-ray was reported negative for acute infiltrate more likely representing mild COVID-19 infection and did not qualify for remdesivir per [facility] policy 2-patient did have resolution of her diarrhea 3-patient to continue with zinc ascorbic acid , did have elevated d-dimer patient also have elevated creatinine CT angiogram cannot be done may benefit from V/Q scan 4-droplet isolation Dictation was produced using [employer] dictation software. please excuse any grammatical, word or spelling errors. Time with Patient: Less than 30
[2023-05-06] MEDS: METOPROLOL TARTRATE 25 MG TAB PO SCH (20:21)
[2023-05-07] MEDS: guaiFENesin 600 MG TABLET.ER PO SCH ×2 (09:11→21:28)
[2023-05-07] MEDS: ASCORBIC ACID 500 MG TAB PO SCH (09:11)
[2023-05-07] MEDS: ZINC SULFATE 220 MG CAP PO SCH (09:11)
[2023-05-07] MEDS: METOPROLOL TARTRATE 25 MG TAB PO SCH ×2 (09:11→21:28)
[2023-05-07] MEDS: DEXAMETHASONE SOD PHOSPHATE 10 MG/ML 1 ML VIAL IVP SCH (09:12)
[2023-05-07 11:54] LABS: Basophils # (A) 0.01 X 10*3/uL (0.00-0.10); Basophils % (A) 0.2 %; Eosinophils # (A) 0 X 10*3/uL (0.04-0.35); Eosinophils % (A) 0 %; HCT 32.4 % (37.2-50.0); Lymphocytes # (A) 0.62 X 10*3/uL (0.90-5.00); Lymphocytes % (A) 9.7 %; MCH 29.1 pg (27.0-32.0); MCHC 30.9 g/dL (32.0-37.0); MCV 94.2 FL (80.0-97.0); Monocytes # (A) 0.48 X 10*3/uL (0.20-1.00); Monocytes % (A) 7.5 %; NRBC Per 100 WBC 0 X 10*3/uL (0.00-0.01); Neutrophils # (A) 5.28 X 10*3/uL (1.80-7.70); Neutrophils % (A) 82.3 %; Platelet Count 144 X 10*3/uL (140-440); RBC 3.44 X 10*6/uL (4.10-5.60); WBC 6.41 X 10*3/uL (4.50-10.00)
[2023-05-07 12:14] LABS: ALT 30 U/L (8-49); AST 69 U/L (13-35); Albumin 3.5 g/dL (3.8-4.9); Albumin/Globulin Ratio 1.59 Ratio (1.60-3.17); Alkaline Phosphatase 51 U/L (41-126); BUN/Creat Ratio 20.38 Ratio (12.00-20.00); Blood Urea Nitrogen 32.6 mg/dL (9.0-27.0); Carbon Dioxide 18.8 mmol/L (21.6-31.8); Chloride 106 mmol/L (96-109); Globulin 2.2 g/dL (1.6-3.3); Glucose 114 mg/dL (70-110); Sodium 137 mmol/L (135-145); Total Bilirubin 0.6 mg/dL (0.3-1.2); Total Protein 5.7 g/dL (6.2-8.2)
--- NOTE | 2023-05-07 13:22 | P.PN ---
Subjective Progress Note Date: 05/07/23 Principal diagnosis: Atrial fibrillation The patient is a 77-year-old female patient with a past medical history significant for permanent H or fibrillation. The patient is not on anticoagulation. As a matter of fact reviewing her home medications she is not on any medications she is not on anticoagulation for unknown reason likely history of falling and possible high risk of bleeding. The patient also is extremely poor historian. She stated that she presented to the hospital because she has been feeling weak and she has been falling and she also was noticed to have change in mental status according to the ER staff. She was diagnosed with COVID 19 infection and she has been afebrile consulted the patient because of abnormal troponin. EKG showed atrial fibrillation with diffuse nonspecific ST or T-wave abnormalities and more importantly the patient did not have any symptoms of chest pain or chest discomfort or shortness of breath or any feeling of heart racing or fluttering. She remains in atrial fibrillation with controlled heart rate was no AV divina roshni agents. The examination is remarkable for irregular rhythm with distant heart sounds and diminished breathing sounds bilaterally and no lower extremity edema 05/06/2023 The patient was seen today. She is feeling overall better. The blood pressure remains elevated and also she is slightly tachycardic. I'm going to increase the dose of metoprolol to 25 mg by mouth twice a day. She reports no pain in the chest and no shortness of breath at this point. The examination is remarkable for diminished breathing sounds bilaterally with irregular rhythm with overall slight tachycardia. No edema in the lower extremities noted 05/07/2023 The patient was seen and evaluated this morning. She is feeling better. No chest pain and no shortness of breath. The pressure remains elevated and cons istent with stage II hypertension. Yesterday I increase the dose of beta roshni and today I'm going to add amlodipine to the current medical regimen. The echo revealed impaired LV function was moderate to severe mitral regurgitation. The examination is remarkable for irregular rhythm with dimini shed breathing sounds bilaterally and no lower extremity is edema noted. Assessment COVID 19 infection Evidence of myocardial injury was no evidence of ischemia Cardiomyopathy Valvular heart disease Atrial fibrillation Hypertension Plan Conservative medical treatment for the abnormal troponin Add amlodipine to the current medical regimen Follow-up with the patient Objective - Vital Signs Vital signs: Vital Signs Temp 97.9 F 05/07/23 12:31 Pulse 90 05/07/23 12:31 Resp 18 05/07/23 12:31 BP 160/101 05/07/23 12:31 Pulse Ox 95 05/07/23 12:31 FiO2 Intake & Output 05/06/23 05/07/23 05/07/23 18:59 06:59 18:59 Intake Total 400 Balance 400 Intake: Oral 400 Other: Voiding Method Diaper # Voids 4 1 1 - Labs CBC & Chem 7: 05/07/23 07:00 05/07/23 07:00 Labs: Abnormal Lab Results - Last 24 Hours (Table) 05/07/23 05/07/23 Range/Units 07:00 07:00 RBC 3.44 L (4.10-5.60) X 10*6/uL Hgb 10.0 L (12.0-17.0) g/dL Hct 32.4 L (37.2-50.0) % MCHC 30.9 L (32.0-37.0) g/dL Lymphocytes # 0.62 L (0.90-5.00) X 10*3/uL Eosinophils # 0 L (0.04-0.35) X 10*3/uL Carbon Dioxide 18.8 L (21.6-31.8) mmol/L Anion Gap 12.20 H (4.00-12.00) mmol/L BUN 32.6 H (9.0-27.0) mg/dL Creatinine 1.6 H (0.6-1.5) mg/dL Est GFR (CKD-EPI) 33 L (>=60) BUN/Creatinine Ratio 20.38 H (12.00-20.00) Ratio Glucose 114 H (70-110) mg/dL AST 69 H (13-35) U/L C-Reactive Protein 3.10 H (0.00-0.80) mg/dL Total Protein 5.7 L (6.2-8.2) g/dL Albumin 3.5 L (3.8-4.9) g/dL Albumin/Globulin Ratio 1.59 L (1.60-3.17) Ratio
--- NOTE | 2023-05-07 14:27 | P.PN ---
Subjective Progress Note Date: 05/07/23 patient is a 77-year-old lady with past medical significant for endometrial cancer, atrial fibrillation, hyperlipidemia who presented to the ER for altered mental status and fever. Patient was was found laying on the floor. Patient was confused. Patient apparently was trying to get out of her bed when she slid and fell on the floor. Patient was too weak to get up. Patient stated that she was feeling weak for the last few days Patient was having high fevers. No complain of shortness of breath. Denied any chest pain or palpitation. Because of these complaints, patient was brought to the ER Initial lab work done in the ER showed WBC 8.3, hemoglobin 11.4, platelet count 140, sodium 136, potassium 4, BUN 26, creatinine 1.73, troponin 0.051 EKG done in the ER heart rate of 137, no P waves seen, no ST segment elevation noticeable, no ST segment depression depression, CT brain done showed no acute intracranial process Chest x-ray done in the ER showed no acute cardiac process, COPD changes Patient admitted to medicine service 05/06. Patient seen and examined. Blood work done this morning showed WBC 6.1, hemoglobin 10.9, sodium 136, potassium 3.9, BUN 32, creatinine 1.57. Patient continues to be in A. fib with rate ranging from 90s to early 130s. 05/07. Patient seen and examined. 2-D echo done showed impaired LV function, EF of 45-50%, mild aortic regurg, moderate to severe mitral regurg. States breathing is improving. REVIEW OF SYSTEMS: CONSTITUTIONAL: No fever, no malaise,. CARDIOVASCULAR: No chest pain, no palpitations, no syncope. PULMONARY: No shortness of breath, no cough, GASTROINTESTINAL: No diarrhea, no nausea, no vomiting, no abdominal pain. NEUROLOGICAL: No headaches, no weakness, PHYSICAL EXAMINATION: GENERAL: The patient is alert and oriented x3, not in any acute distress. Well developed, well nourished. HEENT: Pupils are round and equally reacting to light. EOMI. No scleral icterus. No conjunctival pallor. Normocephalic, atraumatic. No pharyngeal erythema. No thyromegaly. CARDIOVASCULAR: S1 and S2 present. No murmurs, rubs, or gallops. PULMONARY: Chest is clear to auscultation, no wheezing or crackles. ABDOMEN: Soft, nontender, nondistended, normoactive bowel sounds. No palpable organomegaly. MUSCULOSKELETAL: No joint swelling or deformity. EXTREMITIES: No cyanosis, clubbing, or pedal edema. NEUROLOGICAL: Gross neurological examination did not reveal any focal deficits. SKIN: No rashes. Assessment and plan Acute Metabolic encephalopathy resolved A. fib with RVR resolved Fall Elevated troponin Mild aortic regurg Moderate to severe mitral regurg Acute kidney injury COVID-19 infection History of endometrial cancer Chronic kidney disease, stage IIIb History of atrial fibrillation on Eliquis History of CVA/TIA Hypertension Monitor vital signs Monitor CBC Monitor CMP Continue telemetry monitoring Encourage use of incentive spirometer Continue COVID-19 isolation Continue Decadron Continue breathing treatments Continue Lopressor 50mg twice a day Not on any anticoagulation because of frequent falls Cardiology evaluated the patient, Echo reviewed, continue current medication ID following Labs and medication were reviewed.. Continue same treatment. Continue with symptomatic treatment. Resume home medication. Monitor labs and vitals. DVT and GI prophylaxis. Further recommendations as per clinical course of the patient Dictation was produced using [employer] dictation software. please excuse any grammatical, word or spelling errors. Objective - Vital Signs Vital signs: Vital Signs Temp 97.9 F 05/07/23 07:08 Pulse 83 05/07/23 07:08 Resp 20 05/07/23 07:08 BP 166/93 05/07/23 07:08 Pulse Ox 97 05/07/23 07:08 FiO2 Intake & Output 05/06/23 05/07/23 05/07/23 18:59 06:59 18:59 Intake Total 400 Balance 400 Intake: Oral 400 Other: Voiding Method Diaper # Voids 4 1 - Labs CBC & Chem 7: 05/07/23 07:00 05/07/23 07:00 Labs: Abnormal Lab Results - Last 24 Hours (Table) 05/06/23 Range/Units 07:54 C-Reactive Protein 6.2 H (<1.0) mg/dL
[2023-05-08] MEDS: ZINC SULFATE 220 MG CAP PO SCH (08:00)
[2023-05-08] MEDS: guaiFENesin 600 MG TABLET.ER PO SCH ×2 (08:00→20:50)
[2023-05-08] MEDS: METOPROLOL TARTRATE 25 MG TAB PO SCH (08:01)
[2023-05-08] MEDS: ASCORBIC ACID 500 MG TAB PO SCH (08:01)
--- NOTE | 2023-05-08 08:08 | P.PN ---
Subjective Progress Note Date: 05/07/23 Principal diagnosis: Reason for follow-up is Covid 19 Patient is a 77-year-old female with a past medical history significant for hyperlipidemia atrial fibrillation MD CVA TIA cervical cancer treated with radiation presenting to the hospital for evaluation of mental sta tus changes , patient did test positive for covid 19, chest x-ray negative for acute findings also have significant diarrhea On today's evaluation that is 05/07/2023, the patient denies any fever or any chills, the patient is breathing comfortably on room air without the need for supplemental oxygen, patient denies chest pain shortness of breath and no significant cough or sputum production, patient denies Abdominal pain, no nausea/vomiting and denies having any diarrhea Patient did have white count 6.41, creatinine 1.6 Objective - Vital Signs Vital signs: Vital Signs Temp 97.9 F 05/07/23 12:31 Pulse 90 05/07/23 12:31 Resp 18 05/07/23 12:31 BP 160/101 05/07/23 12:31 Pulse Ox 95 05/07/23 12:31 FiO2 Intake & Output 05/06/23 05/07/23 05/07/23 18:59 06:59 18:59 Intake Total 400 Balance 400 Intake: Oral 400 Other: Voiding Method Diaper # Voids 4 1 1 - Exam GENERAL DESCRIPTION: An elderly female lying in bed in no distress RESPIRATORY SYSTEM: Unlabored breathing , decreased breath sound the bases no wheeze HEART: S1 S2 regular rate and rhythm , ABDOMEN: Soft , no tenderness EXTREMITIES: No edema feet - Labs CBC & Chem 7: 05/07/23 07:00 05/07/23 07:00 Labs: Abnormal Lab Results - Last 24 Hours (Table) 05/07/23 05/07/23 Range/Units 07:00 07:00 RBC 3.44 L (4.10-5.60) X 10*6/uL Hgb 10.0 L (12.0-17.0) g/dL Hct 32.4 L (37.2-50.0) % MCHC 30.9 L (32.0-37.0) g/dL Lymphocytes # 0.62 L (0.90-5.00) X 10*3/uL Eosinophils # 0 L (0.04-0.35) X 10*3/uL Carbon Dioxide 18.8 L (21.6-31.8) mmol/L Anion Gap 12.20 H (4.00-12.00) mmol/L BUN 32.6 H (9.0-27.0) mg/dL Creatinine 1.6 H (0.6-1.5) mg/dL Est GFR (CKD-EPI) 33 L (>=60) BUN/Creatinine Ratio 20.38 H (12.00-20.00) Ratio Glucose 114 H (70-110) mg/dL AST 69 H (13-35) U/L C-Reactive Protein 3.10 H (0.00-0.80) mg/dL Total Protein 5.7 L (6.2-8.2) g/dL Albumin 3.5 L (3.8-4.9) g/dL Albumin/Globulin Ratio 1.59 L (1.60-3.17) Ratio Assessment and Plan (1) COVID-19 Current Visit: Yes Status: Acute Code(s): U07.1 - COVID-19 SNOMED Code(s): 353632097 Plan: 1patient presented to hospital with weakness which is likely multifactorial patient is tested positive for COVID-19 however the patient is not hypoxic currently not requiring supplemental oxygen chest x-ray was reported negative for acute infiltrate more likely representing mild COVID-19 infection and did not qualify for remdesivir per [facility] policy 2-patient did have resolution of her diarrhea and stool studies not done 3-patient to continue with zinc ascorbic acid and monitor clinical course closely Dictation was produced using [employer] dictation software. please excuse any grammatical, word or spelling errors. Time with Patient: Less than 30
[2023-05-08] MEDS: DEXAMETHASONE SOD PHOSPHATE 10 MG/ML 1 ML VIAL IVP SCH (08:19)
[2023-05-08] MEDS ORDERED: amLODIPine 5 MG TAB PO SCH (09:00)
[2023-05-08 09:36] LABS: Basophils # (A) 0.01 X 10*3/uL (0.00-0.10); Basophils % (A) 0.2 %; Eosinophils # (A) 0 X 10*3/uL (0.04-0.35); Eosinophils % (A) 0 %; HCT 30.6 % (37.2-50.0); HGB 9.6 g/dL (12.0-17.0); Lymphocytes # (A) 0.47 X 10*3/uL (0.90-5.00); Lymphocytes % (A) 8.5 %; MCH 29.3 pg (27.0-32.0); MCHC 31.4 g/dL (32.0-37.0); MCV 93.3 FL (80.0-97.0); Mean Platelet Volume 10.9 FL (9.5-12.2); Monocytes # (A) 0.41 X 10*3/uL (0.20-1.00); Monocytes % (A) 7.5 %; NRBC Per 100 WBC 0 X 10*3/uL (0.00-0.01); Neutrophils # (A) 4.59 X 10*3/uL (1.80-7.70); Neutrophils % (A) 83.4 %; Platelet Count 136 X 10*3/uL (140-440); RBC 3.28 X 10*6/uL (4.10-5.60)
[2023-05-08 09:59] LABS: ALT 30 U/L (8-49); AST 51 U/L (13-35); Albumin 3.2 g/dL (3.8-4.9); Albumin/Globulin Ratio 1.45 Ratio (1.60-3.17); Alkaline Phosphatase 48 U/L (41-126); Blood Urea Nitrogen 36.8 mg/dL (9.0-27.0); Calcium 9.4 mg/dL (8.7-10.3); Carbon Dioxide 22.6 mmol/L (21.6-31.8); Chloride 106 mmol/L (96-109); Globulin 2.2 g/dL (1.6-3.3); Glucose 148 mg/dL (70-110); Potassium 4.1 mmol/L (3.5-5.5); Sodium 139 mmol/L (135-145); Total Bilirubin 0.7 mg/dL (0.3-1.2); Total Protein 5.4 g/dL (6.2-8.2)
--- NOTE | 2023-05-08 13:27 | P.PN ---
Subjective Progress Note Date: 05/08/23 patient is a 77-year-old lady with past medical significant for endometrial cancer, atrial fibrillation, hyperlipidemia who presented to the ER for altered mental status and fever. Patient was was found laying on the floor. Patient was confused. Patient apparently was trying to get out of her bed when she slid and fell on the floor. Patient was too weak to get up. Patient stated that she was feeling weak for the last few days Patient was having high fevers. No complain of shortness of breath. Denied any chest pain or palpitation. Because of these complaints, patient was brought to the ER Initial lab work done in the ER showed WBC 8.3, hemoglobin 11.4, platelet count 140, sodium 136, potassium 4, BUN 26, creatinine 1.73, troponin 0.051 EKG done in the ER heart rate of 137, no P waves seen, no ST segment elevation noticeable, no ST segment depression depression, CT brain done showed no acute intracranial process Chest x-ray done in the ER showed no acute cardiac process, COPD changes Patient admitted to medicine service 05/06. Patient seen and examined. Blood work done this morning showed WBC 6.1, hemoglobin 10.9, sodium 136, potassium 3.9, BUN 32, creatinine 1.57. Patient continues to be in A. fib with rate ranging from 90s to early 130s. 05/07. Patient seen and examined. 2-D echo done showed impaired LV function, EF of 45-50%, mild aortic regurg, moderate to severe mitral regurg. States breathing is improving. 05/08. Patient seen and examined. Patient is still very weak, keen to go home but will be requiring placement. Denies any shortness of breath. Denies any nausea or vomiting vital signs stable REVIEW OF SYSTEMS: CONSTITUTIONAL: No fever, no malaise,. CARDIOVASCULAR: No chest pain, no palpitations, no syncope. PULMONARY: No shortness of breath, no cough, GASTROINTESTINAL: No diarrhea, no nausea, no vomiting, no abdominal pain. NEUROLOGICAL: No headaches, no weakness, PHYSICAL EXAMINATION: GENERAL: The patient is alert and oriented x3, not in any acute distress. Well developed, well nourished. HEENT: Pupils are round and equally reacting to light. EOMI. No scleral icterus. No conjunctival pallor. Normocephalic, atraumatic. No pharyngeal erythema. No thyromegaly. CARDIOVASCULAR: S1 and S2 present. No murmurs, rubs, or gallops. PULMONARY: Chest is clear to auscultation, no wheezing or crackles. ABDOMEN: Soft, nontender, nondistended, normoactive bowel sounds. No palpable or ganomegaly. MUSCULOSKELETAL: No joint swelling or deformity. EXTREMITIES: No cyanosis, clubbing, or pedal edema. NEUROLOGICAL: Gross neurological examination did not reveal any focal deficits. SKIN: No rashes. Assessment and plan Acute Metabolic encephalopathy resolved A. fib with RVR resolved Fall Elevated troponin Mild aortic regurg Moderate to severe mitral regurg Acute kidney injury COVID-19 infection History of endometrial cancer Chronic kidney disease, stage IIIb History of atrial fibrillation on Eliquis History of CVA/TIA Hypertension Monitor vital signs Monitor CBC Monitor CMP Continue telemetry monitoring Encourage use of incentive spirometer Continue COVID-19 isolation Continue Decadron Continue breathing treatments Continue Lopressor 50mg twice a day, Norvasc Not on any anticoagulation because of frequent falls Cardiology evaluated the patient, Echo reviewed, continue current medication ID following Labs and medication were reviewed.. Continue same treatment. Continue with symptomatic treatment. Resume home medication. Monitor labs and vitals. DVT and GI prophylaxis. Further recommendations as per clinical course of the patie nt Dictation was produced using [employer] dictation software. please excuse any grammatical, word or spelling errors. Objective - Vital Signs Vital signs: Vital Signs Temp 97.4 F L 05/08/23 08:00 Pulse 75 05/08/23 08:00 Resp 16 05/08/23 08:00 BP 170/108 05/08/23 08:00 Pulse Ox 97 05/08/23 08:00 FiO2 Intake & Output 05/07/23 05/08/23 05/08/23 18:59 06:59 18:59 Intake Total 200 Balance 200 Intake: Oral 200 Other: Voiding Method Diaper Bedside Commode Diaper # Voids 2 3 - Labs CBC & Chem 7: 05/08/23 06:41 05/08/23 06:41 Labs: Abnormal Lab Results - Last 24 Hours (Table) 05/07/23 05/07/23 Range/Units 07:00 07:00 RBC 3.44 L (4.10-5.60) X 10*6/uL Hgb 10.0 L (12.0-17.0) g/dL Hct 32.4 L (37.2-50.0) % MCHC 30.9 L (32.0-37.0) g/dL Lymphocytes # 0.62 L (0.90-5.00) X 10*3/uL Eosinophils # 0 L (0.04-0.35) X 10*3/uL Carbon Dioxide 18.8 L (21.6-31.8) mmol/L Anion Gap 12.20 H (4.00-12.00) mmol/L BUN 32.6 H (9.0-27.0) mg/dL Creatinine 1.6 H (0.6-1.5) mg/dL Est GFR (CKD-EPI) 33 L (>=60) BUN/Creatinine Ratio 20.38 H (12.00-20.00) Ratio Glucose 114 H (70-110) mg/dL AST 69 H (13-35) U/L C-Reactive Protein 3.10 H (0.00-0.80) mg/dL Total Protein 5.7 L (6.2-8.2) g/dL Albumin 3.5 L (3.8-4.9) g/dL Albumin/Globulin Ratio 1.59 L (1.60-3.17) Ratio
--- NOTE | 2023-05-08 14:31 | P.PN ---
Subjective Principal diagnosis: Atrial fibrillation The patient is a 77-year-old female patient with a past medical history significant for permanent H or fibrillation. The patient is not on anticoagulation. As a matter of fact reviewing her home medications she is not on any medications she is not on anticoagulation for unknown reason likely history of falling and possible high risk of bleeding. The patient also is extremely poor historian. She stated that she presented to the hospital because she has been feeling weak and she has been falling and she also was noticed to have change in mental status according to the ER staff. She was diagnosed with COVID 19 infection and she has been afebrile consulted the patient because of abnormal troponin. EKG showed atrial fibrillation with diffuse nonspecific ST or T-wave abnormalities and more importantly the patient did not have any symptoms of chest pain or chest discomfort or shortness of breath or any feeling of heart racing or fluttering. She remains in atrial fibrillation with controlled heart rate was no AV divina roshni agents. The examination is remarkable for irregular rhythm with distant heart sounds and diminished breathing sounds bilaterally and no lower extremity edema 05/06/2023 The patient was seen today. She is feeling overall better. The blood pressure remains elevated and also she is slightly tachycardic. I'm going to increase the dose of metoprolol to 25 mg by mouth twice a day. She reports no pain in the chest and no shortness of breath at this point. The examination is remarkable for diminished breathing sounds bilaterally with irregular rhythm with overall slight tachycardia. No edema in the lower extremities noted 05/07/2023 The patient was seen and evaluated this morning. She is feeling better. No chest pain and no shortness of breath. The pressure remains elevated and consistent with stage II hypertension. Yesterday I increase the dose of beta roshni and today I'm going to add amlodipine to the current medical regimen. T he echo revealed impaired LV function was moderate to severe mitral regurgitation. The examination is remarkable for irregular rhythm with diminished breathing sounds bilaterally and no lower extremity is edema noted. 05/08/2023 The patient was seen and evaluated this morning. The pressure remains elevated. I'm going to increase the dose of amlodipine and increase the dose of metoprolol. Clinically she is feeling better. The echo revealed impaired LV function with an EF around 45% was moderate to severe mitral regurgitation. Assessment COVID 19 infection Evidence of myocardial injury was no evidence of ischemia Cardiomyopathy Valvular heart disease Atrial fibrillation Hypertension Plan Conservative medical treatment for the abnormal troponin Increase the dose of amlodipine Increase the dose of metoprolol Objective - Vital Signs Vital signs: Vital Signs Temp 97.4 F L 05/08/23 08:00 Pulse 75 05/08/23 08:00 Resp 16 05/08/23 08:00 BP 170/108 05/08/23 08:00 Pulse Ox 97 05/08/23 08:00 FiO2 Intake & Output 05/07/23 05/08/23 05/08/23 18:59 06:59 18:59 Intake Total 200 Output Total 250 Balance -50 Intake: Oral 200 Output: Urine 250 Other: Voiding Method Diaper Bedside Commode Diaper # Voids 2 3 - Labs CBC & Chem 7: 05/08/23 06:41 05/08/23 06:41 Labs: Abnormal Lab Results - Last 24 Hours (Table) 05/08/23 05/08/23 Range/Units 06:41 06:41 RBC 3.28 L (4.10-5.60) X 10*6/uL Hgb 9.6 L (12.0-17.0) g/dL Hct 30.6 L (37.2-50.0) % MCHC 31.4 L (32.0-37.0) g/dL Plt Count 136 L (140-440) X 10*3/uL Lymphocytes # 0.47 L (0.90-5.00) X 10*3/uL Eosinophils # 0 L (0.04-0.35) X 10*3/uL BUN 36.8 H (9.0-27.0) mg/dL Creatinine 1.6 H (0.6-1.5) mg/dL Est GFR (CKD-EPI) 33 L (>=60) BUN/Creatinine Ratio 23.00 H (12.00-20.00) Ratio Glucose 148 H (70-110) mg/dL AST 51 H (13-35) U/L C-Reactive Protein 1.70 H (0.00-0.80) mg/dL Total Protein 5.4 L (6.2-8.2) g/dL Albumin 3.2 L (3.8-4.9) g/dL Albumin/Globulin Ratio 1.45 L (1.60-3.17) Ratio
--- NOTE | 2023-05-08 20:45 | P.PN ---
Subjective Progress Note Date: 05/08/23 Principal diagnosis: Reason for follow-up is Covid 19 Patient is a 77-year-old female with a past medical history significant for hyperlipidemia atrial fibrillation NC CVA TIA cervical cancer treated with radiation presenting to the hospital for evaluation of mental sta tus changes , patient did test positive for covid 19, chest x-ray negative for acute findings also have significant diarrhea On today's evaluation that is 05/08/2023, the patient remains to be afebrile, the patient is breathing comfortably on room air and the patient denies any shortness of breath, the patient denies chest pain or any cough , patient denies any nausea/vomiting abdominal pain or diarrhea. Patient did have white count of 5.50, creatinine is 1.6. Objective - Vital Signs Vital signs: Vital Signs Temp 97.4 F L 05/08/23 08:00 Pulse 75 05/08/23 08:00 Resp 16 05/08/23 08:00 BP 170/108 05/08/23 08:00 Pulse Ox 97 05/08/23 08:00 FiO2 Intake & Output 05/07/23 05/08/23 05/08/23 18:59 06:59 18:59 Intake Total 200 Balance 200 Intake: Oral 200 Other: Voiding Method Diaper Bedside Commode Diaper # Voids 2 3 - Exam GENERAL DESCRIPTION: An elderly female lying in bed in no distress RESPIRATORY SYSTEM: Unlabored breathing , decreased breath sound the bases no wheeze HEART: S1 S2 regular rate and rhythm , ABDOMEN: Soft , no tenderness EXTREMITIES: No edema feet - Labs CBC & Chem 7: 05/08/23 06:41 05/08/23 06:41 Labs: Abnormal Lab Results - Last 24 Hours (Table) 05/07/23 05/07/23 05/08/23 Range/Units 07:00 07:00 06:41 RBC 3.44 L 3.28 L (4.10-5.60) X 10*6/uL Hgb 10.0 L 9.6 L (12.0-17.0) g/dL Hct 32.4 L 30.6 L (37.2-50.0) % MCHC 30.9 L 31.4 L (32.0-37.0) g/dL Plt Count 136 L (140-440) X 10*3/uL Lymphocytes # 0.62 L 0.47 L (0.90-5.00) X 10*3/uL Eosinophils # 0 L 0 L (0.04-0.35) X 10*3/uL Carbon Dioxide 18.8 L (21.6-31.8) mmol/L Anion Gap 12.20 H (4.00-12.00) mmol/L BUN 32.6 H (9.0-27.0) mg/dL Creatinine 1.6 H (0.6-1.5) mg/dL Est GFR (CKD-EPI) 33 L (>=60) BUN/Creatinine Ratio 20.38 H (12.00-20.00) Ratio Glucose 114 H (70-110) mg/dL AST 69 H (13-35) U/L C-Reactive Protein 3.10 H (0.00-0.80) mg/dL Total Protein 5.7 L (6.2-8.2) g/dL Albumin 3.5 L (3.8-4.9) g/dL Albumin/Globulin Ratio 1.59 L (1.60-3.17) Ratio 05/08/ Range/Units 06:41 RBC (4.10-5.60) X 10*6/uL Hgb (12.0-17.0) g/dL Hct (37.2-50.0) % MCHC (32.0-37.0) g/dL Plt Count (140-440) X 10*3/uL Lymphocytes # (0.90-5.00) X 10*3/uL Eosinophils # (0.04-0.35) X 10*3/uL Carbon Dioxide (21.6-31.8) mmol/L Anion Gap (4.00-12.00) mmol/L BUN 36.8 H (9.0-27.0) mg/dL Creatinine 1.6 H (0.6-1.5) mg/dL Est GFR (CKD-EPI) 33 L (>=60) BUN/Creatinine Ratio 23.00 H (12.00-20.00) Ratio Glucose 148 H (70-110) mg/dL AST 51 H (13-35) U/L C-Reactive Protein 1.70 H (0.00-0.80) mg/dL Total Protein 5.4 L (6.2-8.2) g/dL Albumin 3.2 L (3.8-4.9) g/dL Albumin/Globulin Ratio 1.45 L (1.60-3.17) Ratio Assessment and Plan (1) COVID-19 Current Visit: Yes Status: Acute Code(s): U07.1 - COVID-19 SNOMED Code(s): 509912759 Plan: 1patient presented to hospital with weakness which is likely multifactorial patient is tested positive for COVID-19 however the patient is not hypoxic currently not requiring supplemental oxygen chest x-ray was reported negative for acute infiltrate more likely representing mild COVID-19 infection and did not qualify for remdesivir per [facility] policy 2-patient did have resolution of her diarrhea and stool studies not done 3-Patient seem to have shown clinical improvement she is currently afebrile breathing comfortably on room air to continue with the current supportive treatment of zinc ascorbic acid and monitor clinical course closely Dictation was produced using [employer] dictation software. please excuse any grammatical, word or spelling errors.
[2023-05-08] MEDS: METOPROLOL TARTRATE 50 MG TAB PO SCH (20:50)
[2023-05-08] MEDS: IBUPROFEN 400 MG TAB PO PRN (20:50)
[2023-05-08] MEDS: MELATONIN 5 MG TABLET PO PRN (20:50)
[2023-05-09] MEDS: ZINC SULFATE 220 MG CAP PO SCH (09:27)
[2023-05-09] MEDS: METOPROLOL TARTRATE 50 MG TAB PO SCH ×3 (09:27→21:33)
[2023-05-09] MEDS: DEXAMETHASONE SOD PHOSPHATE 10 MG/ML 1 ML VIAL IVP SCH (09:28)
[2023-05-09] MEDS: guaiFENesin 600 MG TABLET.ER PO SCH ×2 (09:28→21:33)
[2023-05-09] MEDS: ASCORBIC ACID 500 MG TAB PO SCH (09:28)
[2023-05-09] MEDS: amLODIPine 10 MG TAB PO SCH (09:28)
--- NOTE | 2023-05-09 13:03 | P.PN ---
Subjective Progress Note Date: 05/09/23 patient is a 77-year-old lady with past medical significant for endometrial cancer, atrial fibrillation, hyperlipidemia who presented to the ER for altered mental status and fever. Patient was was found laying on the floor. Patient was confused. Patient apparently was trying to get out of her bed when she slid and fell on the floor. Patient was too weak to get up. Patient stated that she was feeling weak for the last few days Patient was having high fevers. No complain of shortness of breath. Denied any chest pain or palpitation. Because of these complaints, patient was brought to the ER Initial lab work done in the ER showed WBC 8.3, hemoglobin 11.4, platelet count 140, sodium 136, potassium 4, BUN 26, creatinine 1.73, troponin 0.051 EKG done in the ER heart rate of 137, no P waves seen, no ST segment elevation noticeable, no ST segment depression depression, CT brain done showed no acute intracranial process Chest x-ray done in the ER showed no acute cardiac process, COPD changes Patient admitted to medicine service 05/06. Patient seen and examined. Blood work done this morning showed WBC 6.1, hemoglobin 10.9, sodium 136, potassium 3.9, BUN 32, creatinine 1.57. Patient continues to be in A. fib with rate ranging from 90s to early 130s. 05/07. Patient seen and examined. 2-D echo done showed impaired LV function, EF of 45-50%, mild aortic regurg, moderate to severe mitral regurg. States breathing is improving. 05/08. Patient seen and examined. Patient is still very weak, keen to go home but will be requiring placement. Denies any shortness of breath. Denies any nausea or vomiting vital signs stable 05/09. Patient seen and examined. Still has weakness, probably requiring rehab. Denies any palpitations. Denies any shortness of breath at rest. REVIEW OF SYSTEMS: CONSTITUTIONAL: No fever, no malaise,. CARDIOVASCULAR: No chest pain, no palpitations, no syncope. PULMONARY: No shortness of breath, no cough, GASTROINTESTINAL: No diarrhea, no nausea, no vomiting, no abdominal pain. NEUROLOGICAL: No headaches, no weakness, PHYSICAL EXAMINATION: GENERAL: The patient is alert and oriented x3, not in any acute distress. Well developed, well nourished. HEENT: Pupils are round and equally reacting to light. EOMI. No scleral icterus. No conjunctival pallor. Normocephalic, atraumatic. No pharyngeal erythema. No thyromegaly. CARDIOVASCULAR: S1 and S2 present. No murmurs, rubs, or gallops. PULMONARY: Chest is clear to auscultation, no wheezing or crackles. ABDOMEN: Soft, nontender, nondistended, normoactive bowel sounds. No palpable organomegaly. MUSCULOSKELETAL: No joint swelling or deformity. EXTREMITIES: No cyanosis, clubbing, or pedal edema. NEUROLOGICAL: Gross neurological examination did not reveal any focal deficits. SKIN: No rashes. Assessment and plan Acute Metabolic encephalopathy resolved A. fib with RVR resolved Fall Elevated troponin Mild aortic regurg Moderate to severe mitral regurg Acute kidney injury COVID-19 infection History of endometrial cancer Chronic kidney disease, stage IIIb History of atrial fibrillation on Eliquis History of CVA/TIA Hypertension Monitor vital signs Monitor CBC Monitor CMP Continue telemetry monitoring Encourage use of incentive spirometer Continue COVID-19 isolation Continue Decadron Continue breathing treatments Continue Lopressor 50mg twice a day, Norvasc 10 mg Not on any anticoagulation because of frequent falls Cardiology evaluated the patient, Echo reviewed, continue current medication ID following Labs and medication were reviewed.. Continue same treatment. Continue with sym ptomatic treatment. Resume home medication. Monitor labs and vitals. DVT and GI prophylaxis. Further recommendations as per clinical course of the patient Dictation was produced using [employer] dictation software. please excuse any grammatical, word or spelling errors. Objective - Vital Signs Vital signs: Vital Signs Temp 97.5 F L 05/09/23 07:38 Pulse 74 05/09/23 07:38 Resp 19 05/09/23 07:38 BP 152/92 05/09/23 07:38 Pulse Ox 95 05/09/23 07:38 FiO2 Intake & Output 05/08/23 05/09/23 05/09/23 18:59 06:59 18:59 Intake Total 400 Output Total 250 Balance 150 Intake: Oral 400 Output: Urine 250 Other: Voiding Method Bedside Commode Diaper # Voids 3 1 - Labs CBC & Chem 7: 05/08/23 06:41 05/08/23 06:41
--- NOTE | 2023-05-09 14:19 | P.PN ---
Subjective Progress Note Date: 05/09/23 Principal diagnosis: Atrial fibrillation The patient is a 77-year-old female patient with a past medical history significant for permanent H or fibrillation. The patient is not on anticoagulation. As a matter of fact reviewing her home medications she is not on any medications she is not on anticoagulation for unknown reason likely history of falling and possible high risk of bleeding. The patient also is extremely poor historian. She stated that she presented to the hospital because she has been feeling weak and she has been falling and she also was noticed to have change in mental status according to the ER staff. She was diagnosed with COVID 19 infection and she has been afebrile consulted the patient because of abnormal troponin. EKG showed atrial fibrillation with diffuse nonspecific ST or T-wave abnormalities and more importantly the patient did not have any symptoms of chest pain or chest discomfort or shortness of breath or any feeling of heart racing or fluttering. She remains in atrial fibrillation with controlled heart rate was no AV divina roshni agents. The examination is remarkable for irregular rhythm with distant heart sounds and diminished breathing sounds bilaterally and no lower extremity edema 05/06/2023 The patient was seen today. She is feeling overall better. The blood pressure remains elevated and also she is slightly tachycardic. I'm going to increase the dose of metoprolol to 25 mg by mouth twice a day. She reports no pain in the chest and no shortness of breath at this point. The examination is remarkable for diminished breathing sounds bilaterally with irregular rhythm with overall slight tachycardia. No edema in the lower extremities noted 05/07/2023 The patient was seen and evaluated this morning. She is feeling better. No chest pain and no shortness of breath. The pressure remains elevated and cons istent with stage II hypertension. Yesterday I increase the dose of beta roshni and today I'm going to add amlodipine to the current medical regimen. The echo revealed impaired LV function was moderate to severe mitral regurgitation. The examination is remarkable for irregular rhythm with dimini shed breathing sounds bilaterally and no lower extremity is edema noted. 05/08/2023 The patient was seen and evaluated this morning. The pressure remains elevated. I'm going to increase the dose of amlodipine and increase the dose of metoprolol. Clinically she is feeling better. The echo revealed impaired LV function with an EF around 45% was moderate to severe mitral regurgitation. 05/09/2023 The patient was evaluated this morning. Overall she is asymptomatic. The pressure remains elevated. I'm going to increase the dose of metoprolol and continue the current medical regimen including the current dose of amlodipine. She is euvolemic and she is not in failure. She still on isolation. The echo revealed impaired LV function was EF around 45% was moderate to severe mitral regurgitation. That needs to be addressed as an outpatient. Assessment COVID 19 infection Evidence of myocardial injury was no evidence of ischemia Cardiomyopathy Valvular heart disease Atrial fibrillation Hypertension Plan Conservative medical treatment for the abnormal troponin Increase the dose of metoprolol Follow-up with the patient on as needed Objective - Vital Signs Vital signs: Vital Signs Temp 97.5 F L 05/09/23 07:38 Pulse 74 05/09/23 07:38 Resp 19 05/09/23 07:38 BP 156/99 05/09/23 10:45 Pulse Ox 95 05/09/23 07:38 FiO2 Intake & Output 05/08/23 05/09/23 05/09/23 18:59 06:59 18:59 Intake Total 400 Output Total 250 250 Balance 150 -250 Intake: Oral 400 Output: Urine 250 250 Other: Voiding Method Bedside Commode Diaper # Voids 3 1 - Labs CBC & Chem 7: 05/08/23 06:41 05/08/23 06:41
[2023-05-09] MEDS: IBUPROFEN 400 MG TAB PO PRN (21:33)
[2023-05-09] MEDS: MELATONIN 5 MG TABLET PO PRN (21:33)
[2023-05-10 08:25] VITALS: RESP 20
[2023-05-10 08:51] LABS: Basophils # (A) 0.01 X 10*3/uL (0.00-0.10); Basophils % (A) 0.2 %; Eosinophils # (A) 0 X 10*3/uL (0.04-0.35); Eosinophils % (A) 0 %; HCT 31.6 % (37.2-50.0); HGB 10.1 g/dL (12.0-17.0); Lymphocytes # (A) 0.54 X 10*3/uL (0.90-5.00); Lymphocytes % (A) 8.1 %; MCH 29.4 pg (27.0-32.0); MCV 91.9 FL (80.0-97.0); Mean Platelet Volume 10.9 FL (9.5-12.2); Monocytes # (A) 0.44 X 10*3/uL (0.20-1.00); Monocytes % (A) 6.6 %; NRBC Per 100 WBC 0 X 10*3/uL (0.00-0.01); Neutrophils # (A) 5.58 X 10*3/uL (1.80-7.70); Neutrophils % (A) 84.2 %; Platelet Count 161 X 10*3/uL (140-440); RBC 3.44 X 10*6/uL (4.10-5.60); WBC 6.63 X 10*3/uL (4.50-10.00)
[2023-05-10 08:54] LABS: ALT 38 U/L (8-49); AST 29 U/L (13-35); Albumin 3.5 g/dL (3.8-4.9); Albumin/Globulin Ratio 1.59 Ratio (1.60-3.17); Alkaline Phosphatase 52 U/L (41-126); BUN/Creat Ratio 24.47 Ratio (12.00-20.00); Blood Urea Nitrogen 36.7 mg/dL (9.0-27.0); Calcium 9.4 mg/dL (8.7-10.3); Carbon Dioxide 25.3 mmol/L (21.6-31.8); Chloride 106 mmol/L (96-109); Globulin 2.2 g/dL (1.6-3.3); Glucose 172 mg/dL (70-110); Potassium 4.2 mmol/L (3.5-5.5); Sodium 140 mmol/L (135-145); Total Bilirubin 0.9 mg/dL (0.3-1.2); Total Protein 5.7 g/dL (6.2-8.2)
[2023-05-10] MEDS: ASCORBIC ACID 500 MG TAB PO SCH (09:08)
[2023-05-10] MEDS: DEXAMETHASONE SOD PHOSPHATE 10 MG/ML 1 ML VIAL IVP SCH (09:08)
[2023-05-10] MEDS: METOPROLOL TARTRATE 50 MG TAB PO SCH (09:08)
[2023-05-10] MEDS: amLODIPine 10 MG TAB PO SCH (09:08)
[2023-05-10] MEDS: guaiFENesin 600 MG TABLET.ER PO SCH (09:08)
[2023-05-10] MEDS: ZINC SULFATE 220 MG CAP PO SCH (09:08)
--- NOTE | 2023-05-10 13:01 | P.DS ---
Providers Date of admission: 05/04/23 22:06 Expected date of discharge: 05/10/23 Attending physician: Zia Torres Consults: 05/04/23 22:04 Consult Physician Routine Consulting Provider: Alicia Rivas Consult Reason/Comments: afibRVR Do you want consulting provider notified?: Yes 05/05/23 09:07 Consult Physician Routine Consulting Provider: Johnny Waite Consult Reason/Comments: COVID-19 infection Do you want consulting provider notified?: Yes Primary care physician: [facility] Course: Discharge diagnoses; Acute Metabolic encephalopathy resolved A. fib with RVR resolved Fall Elevated troponin Mild aortic regurg Moderate to severe mitral regurg Acute kidney injury COVID-19 infection History of endometrial cancer Chronic kidney disease, stage IIIb History of atrial fibrillation on Eliquis History of CVA/TIA Hypertension Hospital course; patient is a 77-year-old lady with past medical significant for endometrial cancer, atrial fibrillation, hyperlipidemia who presented to the ER for altered mental status and fever. Patient was was found laying on the floor. Patient was confused. Patient apparently was trying to get out of her bed when she slid and fell on the floor. Patient was too weak to get up. Patient stated that she was feeling weak for the last few days Patient was having high fevers. No complain of shortness of breath. Denied any chest pain or palpitation. Because of these complaints, patient was brought to the ER Initial lab work done in the ER showed WBC 8.3, hemoglobin 11.4, platelet count 140, sodium 136, potassium 4, BUN 26, creatinine 1.73, troponin 0.051 EKG done in the ER heart rate of 137, no P waves seen, no ST segment elevation noticeable, no ST segment depression depression, CT brain done showed no acute intracranial process Chest x-ray done in the ER showed no acute cardiac process, COPD changes Patient admitted to medicine service 05/06. Patient seen and examined. Blood work done this morning showed WBC 6.1, hemoglobin 10.9, sodium 136, potassium 3.9, BUN 32, creatinine 1.57. Patient continues to be in A. fib with rate ranging from 90s to early 130s. 05/07. Patient seen and examined. 2-D echo done showed impaired LV function, EF of 45-50%, mild aortic regurg, moderate to severe mitral regurg. States breathing is improving. 05/08. Patient seen and examined. Patient is still very weak, keen to go home but will be requiring placement. Denies any shortness of breath. Denies any nausea or vomiting vital signs stable 05/09. Patient seen and examined. Still has weakness, probably requiring rehab. Denies any palpitations. Denies any shortness of breath at rest. 05/10. Patient seen and examined. Case management discussed with patient's legal guardian, plans patient discharged home with homecare. Outpatient follow- up with cardiology PHYSICAL EXAMINATION: GENERAL: The patient is alert and oriented x3, not in any acute distress. Well developed, well nourished. HEENT: Pupils are round and equally reacting to light. EOMI. No scleral icterus. No conjunctival pallor. Normocephalic, atraumatic. No pharyngeal erythema. No thyromegaly. CARDIOVASCULAR: S1 and S2 present. No murmurs, rubs, or gallops. PULMONARY: Chest is clear to auscultation, no wheezing or crackles. ABDOMEN: Soft, nontender, nondistended, normoactive bowel sounds. No palpable organomegaly. MUSCULOSKELETAL: No joint swelling or deformity. EXTREMITIES: No cyanosis, clubbing, or pedal edema. NEUROLOGICAL: Gross neurological examination did not reveal any focal deficits. SKIN: No rashes. Dictation was produced using [employer] dictation software. please excuse any grammatical, word or spelling errors. Patient Condition at Discharge: Fair Plan - Discharge Summary Discharge Rx Participant: No New Discharge Prescriptions: New Aspirin 81 mg PO DAILY 30 Days #30 tab Metoprolol Tartrate [Lopressor] 50 mg PO TID 30 Days #60 tab amLODIPine [Norvasc] 10 mg PO DAILY 30 Days #30 tab Benzonatate [Tessalon Perles] 200 mg PO TID PRN 7 Days #21 cap PRN Reason: Cough dexAMETHasone [Decadron] 6 mg PO DAILY 4 Days #4 tablet Continue Anastrozole [Arimidex] 1 mg PO DAILY Discharge Medication List Anastrozole [Arimidex] 1 mg PO DAILY 05/04/23 [History] Aspirin 81 mg PO DAILY 30 Days #30 tab 05/10/23 [Rx] Benzonatate [Tessalon Perles] 200 mg PO TID PRN 7 Days #21 cap 05/10/23 [Rx] Metoprolol Tartrate [Lopressor] 50 mg PO TID 30 Days #60 tab 05/10/23 [Rx] amLODIPine [Norvasc] 10 mg PO DAILY 30 Days #30 tab 05/10/23 [Rx] dexAMETHasone [Decadron] 6 mg PO DAILY 4 Days #4 tablet 05/10/23 [Rx] Follow up Appointment(s)/Referral(s): Dada Maddox DO [Primary Care Provider] - 1-2 days [facility] Visiting Nurse, [NON-STAFF] - As Needed Discharge Disposition: HOME WITH HOME HEALTH SERVICES
[2023-05-10 15:00] VITALS: BP 146/91; PULSE 85; TEMP 97.6
--- NOTE | 2023-05-13 14:12 | CDI ---
Documentation Clarification Form Date: 05/13/2023 01:33:24 PM From: Meenu Moulton RN, CCDS Email: [email or web address] Admit Date: 05/04/2023 10:06:00 PM Patient Name: Carli Higuera Visit Number: [id number] Discharge Date: 05/10/2023 02:46:00 PM ATTENTION: The Clinical Documentation Specialists (CDI) and [facility] Coding Staff appreciate your assistance in clarifying documentation. Please respond to the clarification below the line at the bottom and electronically sign. The CDI & [facility] Coding staff will review the response and follow-up if needed. Please note: Queries are made part of the Legal Health Record. If you have any questions, please contact the author of this message via ITS. Dr. Tay Medina The patient had Covid infection, metabolic encephalopathy, elevated temp and tachycardia. Based on this information and the findings below, is there an additional diagnosis that is clinically appropriate for this patient? History/Risk Factors: endometrial cancer, atrial fibrillation and hyperlipidemia. Presented to the ER for altered mental status and fever. Patient was found laying on the floor and confused. Patient was having high fevers. Clinical Indicators: H&P: "Acute Metabolic encephalopathy. Acute kidney injury. COVID-19 infection." 05/04-05/08 Lymphocytes 0.2-0.6-0.47; Cr 1.73-1.64-1.6; CRP 6.2-3.10-1.70 05/04 Vitals signs: Temp 101.4-98.4, HR 134-109 Treatment: Zinc 220mg daily 05/06-05/10; Ibuprofen 400mg Q6H 05/08-05/09; Ibuprofen 800mg IV x1 on 05/04; IV Decadron 6mg daily 05/05-05/10; Vitamin C 1000mg po daily; Acetaminophen 1000mg IV x1 on 05/04 05/05 ID Consult: "mental status changes, found on the ground. Patient did have a fever up to 101.4 F likely representing mild COVID-19 infection." IV Bolus: 1L 0.9 NS bolus on 05/04; 0.9 NS @130mL/hr 05/04; 0.9 NS @75mL/hr 05/04-05/05 Is there an additional diagnosis that is clinically appropriate for this patient? [ x ] Viral Sepsis due to Covid infection, present on admission [ ] No additional diagnosis [ ] Other, please specify [ ] Unable to determine SIRS Criteria: 2 or more of the following may indicate SIRS Temperature < 96.8F (36C) or > 101.0F (38.3C) Heart Rate > 90 bpm Respiratory Rate > 20 breaths/min or PaCO2 < 32 mmHg White Blood Cell Count > 12,000 or < 4,000 cells/mm3 or > 10% bands MTDD
--- NOTE | 2023-05-16 16:24 | P.PN ---
Subjective Progress Note Date: 05/09/23 Principal diagnosis: Reason for follow-up is Covid 19 Patient is a 77-year-old female with a past medical history significant for hyperlipidemia atrial fibrillation [place] CVA TIA cervical cancer treated with radiation presenting to the hospital for evaluation of mental sta tus changes , patient did test positive for covid 19, chest x-ray negative for acute findings also have significant diarrhea On today's evaluation that is 05/09/2023, the patient denies any fever or any chills, the patient is breathing comfortably on room air without the need for supplemental oxygen, patient denies chest pain shortness of breath and no significant cough or sputum production, patient denies Abdominal pain, no nausea/vomiting and denies having any diarrhea Patient did have white count of 5.50, creatinine is 1.6 as of 05/08/2023 no lab draw today. Objective - Vital Signs Vital signs: Vital Signs Temp 98 F 05/09/23 01:07 Pulse 75 05/09/23 01:07 Resp 20 05/08/23 14:00 BP 172/95 05/09/23 01:07 Pulse Ox 97 05/09/23 01:07 FiO2 Intake & Output 05/08/23 05/09/23 05/09/23 18:59 06:59 18:59 Intake Total 400 Output Total 250 Balance 150 Intake: Oral 400 Output: Urine 250 Other: Voiding Method Bedside Commode Diaper # Voids 3 1 - Exam GENERAL DESCRIPTION: An elderly female lying in bed in no distress RESPIRATORY SYSTEM: Unlabored breathing , decreased breath sound the bases no wheeze HEART: S1 S2 regular rate and rhythm , ABDOMEN: Soft , no tenderness EXTREMITIES: No edema feet - Labs CBC & Chem 7: 05/10/23 04:37 05/10/23 04:37 Labs: Abnormal Lab Results - Last 24 Hours (Table) 05/08/23 05/08/23 Range/Units 06:41 06:41 RBC 3.28 L (4.10-5.60) X 10*6/uL Hgb 9.6 L (12.0-17.0) g/dL Hct 30.6 L (37.2-50.0) % MCHC 31.4 L (32.0-37.0) g/dL Plt Count 136 L (140-440) X 10*3/uL Lymphocytes # 0.47 L (0.90-5.00) X 10*3/uL Eosinophils # 0 L (0.04-0.35) X 10*3/uL BUN 36.8 H (9.0-27.0) mg/dL Creatinine 1.6 H (0.6-1.5) mg/dL Est GFR (CKD-EPI) 33 L (>=60) BUN/Creatinine Ratio 23.00 H (12.00-20.00) Ratio Glucose 148 H (70-110) mg/dL AST 51 H (13-35) U/L C-Reactive Protein 1.70 H (0.00-0.80) mg/dL Total Protein 5.4 L (6.2-8.2) g/dL Albumin 3.2 L (3.8-4.9) g/dL Albumin/Globulin Ratio 1.45 L (1.60-3.17) Ratio Assessment and Plan (1) COVID-19 Status: Acute Code(s): U07.1 - COVID-19 SNOMED Code(s): 145304483 Plan: 1patient presented to hospital with weakness which is likely multifactorial patient is tested positive for COVID-19 however the patient is not hypoxic currently not requiring supplemental oxygen chest x-ray was reported negative for acute infiltrate more likely representing mild COVID-19 infection and did not qualify for remdesivir per [facility] policy 2-patient did have resolution of her diarrhea and stool studies not done 3-Patient slowly clinically improving, patient is currently afebrile breathing comfortably on room air to continue with the current supportive treatment of zinc ascorbic acid and monitor clinical course closely Dictation was produced using [employer] dictation software. please excuse any grammatical, word or spelling errors. Time with Patient: Less than 30
--- NOTE | 2023-05-16 16:25 | P.PN ---
Subjective Progress Note Date: 05/10/23 Principal diagnosis: Reason for follow-up is Covid 19 Patient is a 77-year-old female with a past medical history significant for hyperlipidemia atrial fibrillation [place] CVA TIA cervical cancer treated with radiation presenting to the hospital for evaluation of mental sta tus changes , patient did test positive for covid 19, chest x-ray negative for acute findings also have significant diarrhea On today's evaluation that is 05/10/2023, the patient remains to be afebrile, the patient is breathing comfortably on room air and denies any shortness of breath, the patient denies any chest pain, no significant cough or sputum production, patient denies nausea/vomiting /diarrhea and no abdominal pain Patient did have white count of 6.63, creatinine 1.5 Objective - Vital Signs Vital signs: Vital Signs Temp 97.7 F 05/10/23 07:30 Pulse 75 05/10/23 07:30 Resp 20 05/10/23 07:30 BP 177/79 05/10/23 07:30 Pulse Ox 98 05/10/23 07:30 FiO2 Intake & Output 05/09/23 05/10/23 05/10/23 18:59 06:59 18:59 Output Total 250 Balance -250 Output: Urine 250 Other: Voiding Method Bedside Commode Diaper # Voids 1 1 - Exam GENERAL DESCRIPTION: An elderly female lying in bed in no distress RESPIRATORY SYSTEM: Unlabored breathing , decreased breath sound the bases no wheeze HEART: S1 S2 regular rate and rhythm , ABDOMEN: Soft , no tenderness EXTREMITIES: No edema feet - Labs CBC & Chem 7: 05/10/23 04:37 05/10/23 04:37 Labs: Abnormal Lab Results - Last 24 Hours (Table) 05/10/23 05/10/23 Range/Units 04:37 04:37 RBC 3.44 L (4.10-5.60) X 10*6/uL Hgb 10.1 L (12.0-17.0) g/dL Hct 31.6 L (37.2-50.0) % Lymphocytes # 0.54 L (0.90-5.00) X 10*3/uL Eosinophils # 0 L (0.04-0.35) X 10*3/uL BUN 36.7 H (9.0-27.0) mg/dL Est GFR (CKD-EPI) 35 L (>=60) BUN/Creatinine Ratio 24.47 H (12.00-20.00) Ratio Glucose 172 H (70-110) mg/dL Total Protein 5.7 L (6.2-8.2) g/dL Albumin 3.5 L (3.8-4.9) g/dL Albumin/Globulin Ratio 1.59 L (1.60-3.17) Ratio Assessment and Plan (1) COVID-19 Status: Acute Code(s): U07.1 - COVID-19 SNOMED Code(s): 357205207 Plan: 1patient presented to hospital with weakness which is likely multifactorial patient is tested positive for COVID-19 however the patient is not hypoxic currently not requiring supplemental oxygen chest x-ray was reported negative for acute infiltrate more likely representing mild COVID-19 infection and did not qualify for remdesivir per [facility] policy 2-patient did have resolution of her diarrhea and stool studies not done 3-Patient has shown clinical improvement, patient to continue with the current supportive treatment of zinc ascorbic acid, no need for antiviral or antibiotics on discharge Dictation was produced using [employer] dictation software. please excuse any grammatical, word or spelling errors. Time with Patient: Less than 30
== END 2023-05-10 14:46 | disposition home health service (06) | DRG 871 ==
LOC: EC 18:10 → EEVIPCON 22:06 → 3SCARD 22:06 → 4SSUR 05-05 14:09
PROVIDERS: ADMIT Hospitalist; ATTEND Hospitalist
PROC: 8E0ZXY6 Isolation (ICD-10-PCS; principal; 2023-05-04)
PROC: 3E0333Z Introduction of Anti-inflammatory into Peripheral Vein, Percutaneous Approach (ICD-10-PCS; 2023-05-05)
DX: A41.89 Other specified sepsis (principal); G93.41 Metabolic encephalopathy; U07.1 COVID-19; N17.9 Acute kidney failure, unspecified; I48.21 Permanent atrial fibrillation; A08.39 Other viral enteritis; I5A Non-ischemic myocardial injury (non-traumatic); N18.32 Chronic kidney disease, stage 3b; I12.9 Hypertensive chronic kidney disease with stage 1 through stage 4 chronic kidney disease, or unspecified chronic kidney disease; I08.0 Rheumatic disorders of both mitral and aortic valves; R29.6 Repeated falls; E78.5 Hyperlipidemia, unspecified; W06.XXXA Fall from bed, initial encounter; Y92.003 Bedroom of unspecified non-institutional (private) residence as the place of occurrence of the external cause; Z86.16 Personal history of COVID-19; Z86.73 Personal history of transient ischemic attack (TIA), and cerebral infarction without residual deficits; Z28.310 Unvaccinated for COVID-19; I25.2 Old myocardial infarction; Z92.3 Personal history of irradiation; Z87.891 Personal history of nicotine dependence; Z79.811 Long term (current) use of aromatase inhibitors; Z79.82 Long term (current) use of aspirin; Z91.81 History of falling; Z79.899 Other long term (current) drug therapy; Z85.42 Personal history of malignant neoplasm of other parts of uterus; Z85.41 Personal history of malignant neoplasm of cervix uteri; Z87.19 Personal history of other diseases of the digestive system
CPT/HCPCS: 36415; 70450; 71045; 80053; 80306; 81001; 82140; 82728; 83735; 84100; 84484; 85025; 85379; 85384; 85610; 85730; 86140; 87636; 93005; 93306; 94760; 96361; 96365; 96367; 96375; 99285; 99291

== ENCOUNTER → 2023-06-25 | Outpatient (CLI) | payer MEDICARE, OTHER ==
--- NOTE | 2023-06-28 14:40 | PE ---
EXAMINATION TYPE: PET CT fusion skull to thigh DATE OF EXAM: 06/25/2023 COMPARISON: No recent pertinent CT. Prior PET/CT: 04/10/2022 HISTORY: Endometrial cancer TECHNIQUE: Following the intravenous administration of 11.11 mCi of F-18 FDG, whole body images are performed from the skull base to the midthigh. Images are reviewed on the computer in the coronal, a xial, and sagittal planes. Reconstructed rotating images are created on independent workstation and reviewed on the computer. A localization and attenuation correction CT is performed in conjunction with the PET scan. DLP: 628.0 mGycm SCAN: Subsequent Blood glucose: 125 mg/dL Average Mediastinum SUV: 1.38 Average Liver SUV: 1.47 FINDINGS: Head: Defects within the right parietal and left watershed regions compatible with prior infarcts. NECK: Suspicious focal uptake not evident. There appears to be some uptake within muscle. THORAX: No abnormal uptake ABDOMEN: No abnormal uptake PELVIS: There is uptake within the uterus compatible with patient's reported endometrial cancer. This has an SUV value of 6.09. There appears to be some uptake within the bilateral adnexa. SUV on the ri ght measures 7.83 on the left measures 6.12 OSSEOUS STRUCTURES: No abnormal uptake LOCALIZATION CT: Cholelithiasis is present. COMPARISON: Uptake within the pelvis appears diminished over the interval. No new or distant abnormal uptake to suggest metastatic disease IMPRESSION: 1. Diminished uptake within the uterus. 2. No suspicious changes to suggest metastatic disease.
== END | disposition home or self-care (01) ==
LOC: RADPETMAIN 11:39
PROVIDERS: ATTEND Internal Medicine
DX: C54.8 Malignant neoplasm of overlapping sites of corpus uteri (principal); R93.89 Abnormal findings on diagnostic imaging of other specified body structures
CPT/HCPCS: 78815; A9552

== ENCOUNTER 2023-09-15 22:46 | Inpatient (IN) | payer MEDICARE, OTHER ==
--- NOTE | 2023-09-15 23:21 | ED ---
Abdominal Pain HPI - General Chief Complaint: Abdominal Pain Stated Complaint: Nausea, Vomiting Time Seen by Provider: 09/15/23 22:50 Source: EMS Mode of arrival: EMS Limitations: altered mental status - History of Present Illness Initial Comments: Mera is a pleasant 78-year-old female with a history of endometrial cancer who presents to the emergency department today via ambulance for evaluation of 2 days of nausea vomiting diffuse abdominal pain, generalized weakness and not feeling well. EMS reports concern regarding the patient's condition and ability to care for herself at home. - Related Data Home Medications Medication Instructions Recorded Confirmed RX: Anastrozole [Arimidex] 1 mg PO DAILY 05/04/23 05/04/23 Previous Rx's Medication Instructions Recorded RX: Aspirin 81 mg PO DAILY 30 Days #30 tab 05/10/23 RX: Benzonatate [Tessalon Perles] 200 mg PO TID PRN 7 Days #21 cap 05/10/23 RX: Metoprolol Tartrate [Lopressor] 50 mg PO TID 30 Days #60 tab 05/10/23 RX: amLODIPine [Norvasc] 10 mg PO DAILY 30 Days #30 tab 05/10/23 dexAMETHasone [Decadron] 6 mg PO DAILY 4 Days #4 tablet 05/10/23 Allergies Allergy/AdvReac Type Severity Reaction Status Date / Time No Known Allergies Allergy Verified 05/04/23 18:21 Review of Systems ROS Statement: Those systems with pertinent positive or pertinent negative responses have been documented in the HPI. ROS Other: All systems not noted in ROS Statement are negative. Past Medical History Past Medical History: Atrial Fibrillation, Cancer, CVA/TIA, GI Bleed, Hyperlipidemia, Myocardial Infarction ([place]) Additional Past Medical History / Comment(s): 07/27/17 FALL'LT HIP FX. 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 History of COVID-19, cervical cancer treated with radiation. No taking Eliquis due to bleeding issues in past. Last Myocardial Infarction Date:: 2009 History of Any Multi-Drug Resistant Organisms: None Reported Past Surgical History: Heart Catheterization, Orthopedic Surgery, Tonsillectomy Additional Past Surgical History / Comment(s): ORIF RT ANKLE HAS PLATE. Past Anesthesia/Blood Transfusion Reactions: No Reported Reaction Past Psychological History: No Psychological Hx Reported Smoking Status: Former smoker, Never smoker Past Alcohol Use History: None Reported Past Drug Use History: None Reported - Past Family History Mother Family Medical History: No Reported History Additional Family Medical History / Comment(s): FROM ANUERYSM Father Family Medical History: No Reported History General Exam - General Exam Comments Initial Comments: Physical Exam GENERAL: Chronically ill-appearing elderly female HENT: Normocephalic EYES: PERRL, EOMI PULMONARY: Unlabored respirations. CARDIOVASCULAR: Tachycardic ABDOMEN: Diffuse tenderness SKIN: Pale : Deferred NEUROLOGIC: Alert and oriented to self, able to identify she is in the hospital, poor historian MUSCULOSKELETAL: Normal extremities with adequate strength and full range of motion. No lower extremity swelling or edema. No calf tenderness. PSYCHIATRIC: Agitated Limitations: altered mental status Course Vital Signs 09/15/23 09/15/23 09/16/23 22:48 23:46 00:00 Temperature 97.4 F L Pulse Rate 144 H 160 H Respiratory 18 22 22 Rate Blood Pressure 152/132 153/130 O2 Sat by Pulse 98 96 95 Oximetry 09/16/23 09/16/23 09/16/23 00:30 01:00 01:30 Temperature Pulse Rate 135 H 160 H Respiratory 12 22 Rate Blood Pressure 149/126 157/126 O2 Sat by Pulse Oximetry 09/16/23 09/16/23 09/16/23 01:48 02:01 03:00 Temperature Pulse Rate 125 H 95 133 H Respiratory 18 18 17 Rate Blood Pressure 128/96 128/96 98/72 O2 Sat by Pulse 95 91 L 98 Oximetry 09/16/23 03:30 Temperature Pulse Rate 112 H Respiratory 19 Rate Blood Pressure 111/72 O2 Sat by Pulse 95 Oximetry Medical Decision Making - Medical Decision Making Was pt. sent in by a medical professional or institution (, PA, METAL GAUGE [employer]KER, urgent care, hospital, or halfway...) When possible be specific @ -No Did you speak to anyone other than the patient for history (EMS, parent, family, police, friend...)? What history was obtained from this source @ -No Did you review nursing and triage notes (agree or disagree)? Why? @ -I reviewed and agree with nursing and triage notes Were old charts reviewed (outside hosp., previous admission, EMS record, old EKG, old radiological studies, urgent care reports/EKG's, halfway records)? Report findings @ -Previous labs and admission notes were reviewed Differential Diagnosis (chest pain, altered mental status, abdominal pain women, abdominal pain men, vaginal bleeding, weakness, fever, dyspnea, syncope, headache, dizziness, GI bleed, back pain, seizure, CVA, palpatations, mental health)? @ -Differential Abdominal Pain Women: Appendicitis, Cholecystitis, diverticulosis, ischemic bowel, pancreatitis, hepatitis, UTI, gastroenteritis, AAA, incarcerated hernia, bowel obstruction, constipation, inflammatory bowel, hepatitis, peptic ulcer disease, splenic infarction, perforated viscus, vulvitis, ovarian torsion, PID, kidney stone, placenta abruption, this is not meant to be an all-inclusive list EKG interpreted by me (3pts min.). @ -As above X-rays interpreted by me (1pt min.). @ -Chest x-ray with NG tube that does not traverse the diaphragm appears to be in the esophagus CT interpreted by me (1pt min.). @ -CT scan with dilated loops of bowel concerning for obstruction I see no large masses or evidence of metastatic disease U/S interpreted by me (1pt. min.). @ -None done What testing was considered but not performed or refused? (CT, X-rays, U/S, labs)? Why? @ -None What meds were considered but not given or refused? Why? @ -None Did you discuss the management of the patient with other professionals (professionals i.e. , PA, METAL GAUGE MAKER, lab, RT, psych nurse, social work job titles, business ethics professor, teacher, county records management officer, medical case manager)? Give summary @ -No Was smoking cessation discussed for >3mins.? @ -No Was critical care preformed (if so, how long)? @ -No Were there social determinants of health that impacted care today? How? (Homelessness, low income, unemployed, alcoholism, drug addiction, transportation, low edu. Level, literacy, decrease access to med. care, senior living, rehab)? @ -No Was there de-escalation of care discussed even if they declined (Discuss DNR or withdrawal of care, Hospice)? DNR status @ -No What co-morbidities impacted this encounter? (DM, HTN, Smoking, COPD, CAD, Cancer, CVA, ARF, Chemo, Hep., AIDS, mental health diagnosis, sleep apnea, morbid obesity)? @ -Endometrial cancer, dementia, A-fib Was patient admitted / discharged? Hospital course, mention meds given and route, prescriptions, significant lab abnormalities, going to OR and other per tinent info. @ -Admit The patient was seen and evaluated, history was obtained from the patient and EMS. Patient presenting with nausea vomiting no diarrhea no bowel movement for 2 days patient was in A-fib RVR upon arrival. Labs were obtained patient was hyperkalemic treatment was ordered per protocol. Patient receiving IV fluid hydration. GFR is low therefore CT scan without contrast was can pleated and appears to be consistent with small bowel obstruction. NG tube was placed x-ray showed tube was in the esophagus so tube was advanced. Dark gastric contents drained. Patient will be admitted for small bowel obstruction, intractable vomiting, hyperkalemia and A-fib with RVR Undiagnosed new problem with uncertain prognosis? @ -Yes Drug Therapy requiring intensive monitoring for toxicity (Heparin, Nitro, Insulin, Cardizem)? @ -No Were any procedures done? @ -NG tube placement Diagnosis/symptom? @ -Small bowel obstruction Acute, or Chronic, or Acute on Chronic? @ -Acute Uncomplicated (without systemic symptoms) or Complicated (systemic symptoms)? @ -Complicated Side effects of treatment? @ -No Exacerbation, Progression, or Severe Exacerbation? @ -No Poses a threat to life or bodily function? How? (Chest pain, [place], [place], pneumonia, PE, COPD, DKA, ARF, appy, cholecystitis, CVA, Diverticulitis, Homicidal, Suicidal, threat to staff... and all critical care pts) @ -Potentially due to extremes of age, dehydration lab abnormalities Diagnosis/symptom? @ -Hyperkalemia Acute, or Chronic, or Acute on Chronic? @ -Acute Uncomplicated (without systemic symptoms) or Complicated (systemic symptoms)? @ -Default Side effects of treatment? @ -None Exacerbation, Progression, or Severe Exacerbation] @ -No Poses a threat to life or bodily function? @ -Potentially can result in arrhythmia Diagnosis/symptom? @ -A-fib RVR Acute, or Chronic, or Acute on Chronic? @ -Acute Uncomplicated (without systemic symptoms) or Complicated (systemic symptoms)? @ -Complicated Side effects of treatment? @ -None Exacerbation, Progression, or Severe Exacerbation] @ -No Poses a threat to life or bodily function? @ -Unlikely but due to extremes of age risk for heart failure cardiac arrest - Lab Data Result diagrams: 09/15/23 23:54 09/15/23 23:54 Lab Results 09/15/23 09/15/23 09/15/23 Range/Units 23:54 23:54 23:54 WBC 10.0 (3.8-10.6) k/uL RBC 4.01 (3.80-5.40) m/uL Hgb 12.6 (11.4-16.0) gm/dL Hct 39.5 (34.0-46.0) % MCV 98.4 (80.0-100.0) fL MCH 31.4 (25.0-35.0) pg MCHC 31.9 (31.0-37.0) g/dL RDW 14.5 (11.5-15.5) % Plt Count 215 (150-450) k/uL MPV 9.6 Neutrophils % 86 % Lymphocytes % 8 % Monocytes % 4 % Eosinophils % 0 % Basophils % 0 % Neutrophils # 8.6 H (1.3-7.7) k/uL Lymphocytes # 0.8 L (1.0-4.8) k/uL Monocytes # 0.4 (0-1.0) k/uL Eosinophils # 0.0 (0-0.7) k/uL Basophils # 0.0 (0-0.2) k/uL PT 10.6 (10.0-12.5) sec INR 1.0 (<1.2) APTT 23.8 (22.0-30.0) sec Sodium 137 (137-145) mmol/L Potassium 6.1 H* (3.5-5.1) mmol/L Chloride 106 (98-107) mmol/L Carbon Dioxide 22 (22-30) mmol/L Anion Gap 9 mmol/L BUN 37 H (7-17) mg/dL Creatinine 1.71 H (0.52-1.04) mg/dL Est GFR (CKD-EPI)AfAm 32 (>60 ml/min/1.73 sqM) Est GFR (CKD-EPI)NonAf 28 (>60 ml/min/1.73 sqM) Glucose 157 H (74-99) mg/dL Plasma Lactic Acid [place] (0.7-2.0) mmol/L Calcium 9.3 (8.4-10.2) mg/dL Magnesium 2.0 (1.6-2.3) mg/dL Total Bilirubin 1.3 (0.2-1.3) mg/dL AST 32 (14-36) U/L ALT 14 (4-34) U/L Alkaline Phosphatase 56 (38-126) U/L Total Protein 6.6 (6.3-8.2) g/dL Albumin 3.5 (3.5-5.0) g/dL Lipase 84 (23-300) U/L 09/15/23 Range/Units 23:54 WBC (3.8-10.6) k/uL RBC (3.80-5.40) m/uL Hgb (11.4-16.0) gm/dL Hct (34.0-46.0) % MCV (80.0-100.0) fL MCH (25.0-35.0) pg MCHC (31.0-37.0) g/dL RDW (11.5-15.5) % Plt Count (150-450) k/uL MPV Neutrophils % % Lymphocytes % % Monocytes % % Eosinophils % % Basophils % % Neutrophils # (1.3-7.7) k/uL Lymphocytes # (1.0-4.8) k/uL Monocytes # (0-1.0) k/uL Eosinophils # (0-0.7) k/uL Basophils # (0-0.2) k/uL PT (10.0-12.5) sec INR (<1.2) APTT (22.0-30.0) sec Sodium (137-145) mmol/L Potassium (3.5-5.1) mmol/L Chloride (98-107) mmol/L Carbon Dioxide (22-30) mmol/L Anion Gap mmol/L BUN (7-17) mg/dL Creatinine (0.52-1.04) mg/dL Est GFR (CKD-EPI)AfAm (>60 ml/min/1.73 sqM) Est GFR (CKD-EPI)NonAf (>60 ml/min/1.73 sqM) Glucose (74-99) mg/dL Plasma Lactic Acid [place] 1.6 (0.7-2.0) mmol/L Calcium (8.4-10.2) mg/dL Magnesium (1.6-2.3) mg/dL Total Bilirubin (0.2-1.3) mg/dL AST (14-36) U/L ALT (4-34) U/L Alkaline Phosphatase (38-126) U/L Total Protein (6.3-8.2) g/dL Albumin (3.5-5.0) g/dL Lipase (23-300) U/L Disposition Clinical Impression: Small bowel obstruction, Intractable vomiting, Hyperkalemia, Atrial fibrillation with RVR Disposition: ADMITTED IP TO THIS HOSP Condition: Serious Is patient prescribed a controlled substance at d/c from ED?: No Referrals: None,Stated [Primary Care Provider] - 1-2 days
[2023-09-15] MEDS: SODIUM CHLORIDE 0.9% 1,000 ML IV SCH (23:51)
[2023-09-15] MEDS: SODIUM CHLORIDE 0.9% 500 ML 500 ML IV SCH (23:51)
[2023-09-16 00:25] LABS: ALT 14 U/L (4-34); AST 32 U/L (14-36); African American GFR (CKD) 32 (>60 ml/min/1.73 sqM); Albumin 3.5 g/dL (3.5-5.0); Alkaline Phosphatase 56 U/L (38-126); Anion Gap 9 mmol/L; Blood Urea Nitrogen 37 mg/dL (7-17); Calcium 9.3 mg/dL (8.4-10.2); Carbon Dioxide 22 mmol/L (22-30); Chloride 106 mmol/L (98-107); Glucose 157 mg/dL (74-99); Lipase 84 U/L (23-300); Non-African American GFR(CKD) 28 (>60 ml/min/1.73 sqM); Sodium 137 mmol/L (137-145); Total Bilirubin 1.3 mg/dL (0.2-1.3); Total Protein 6.6 g/dL (6.3-8.2)
[2023-09-16 00:28] LABS: Partial Thromboplastin Time 23.8 sec (22.0-30.0); Prothrombin Time 10.6 sec (10.0-12.5)
[2023-09-16 00:42] LABS: Potassium 6.1 mmol/L (3.5-5.1)
--- NOTE | 2023-09-16 00:44 | XR ---
EXAM: XR Chest, 1 View CLINICAL HISTORY: ITS.REASON XR Reason: Fever TECHNIQUE: Frontal view of the chest. COMPARISON: No relevant prior studies available. FINDINGS: Lungs: Emphysema. No consolidation. Pleural space: Unremarkable. No pneumothorax. Heart: Cardiomegaly. Mediastinum: Unremarkable. Normal mediastinal contour. Bones/joints: Unremarkable. No acute fracture. IMPRESSION: No acute findings in the chest.
[2023-09-16 00:53] LABS: Basophils % (A) 0 %; Eosinophils % (A) 0 %; HCT 39.5 % (34.0-46.0); HGB 12.6 gm/dL (11.4-16.0); Lymphocytes # (A) 0.8 k/uL (1.0-4.8); Lymphocytes % (A) 8 %; MCH 31.4 pg (25.0-35.0); MCHC 31.9 g/dL (31.0-37.0); MCV 98.4 fL (80.0-100.0); Mean Platelet Volume 9.6; Monocytes # (A) 0.4 k/uL (0-1.0); Monocytes % (A) 4 %; Neutrophils # (A) 8.6 k/uL (1.3-7.7); Neutrophils % (A) 86 %; Platelet Count 215 k/uL (150-450); RBC 4.01 m/uL (3.80-5.40); RDW 14.5 % (11.5-15.5)
[2023-09-16] MEDS: DEXTROSE 50% SYRINGE 50 ML IVP ONE (00:54)
[2023-09-16] MEDS: INSULIN REGULAR 100 UNIT/ML VIAL (IV) IV ONE (00:56)
[2023-09-16] MEDS: CALCIUM GLUCONATE IN NACL 1 GM in SALINE 1 100ML.BAG IVPB ONE (01:02)
[2023-09-16] MEDS: SODIUM ZIRCONIUM CYCLOSILICATE 10 GM PACKET PO ONE (01:16)
[2023-09-16] MEDS: ONDANSETRON 4 MG/2 ML VIAL IVP STA (01:23)
[2023-09-16] MEDS: DILTIAZEM DRIP BOLUS FROM BAG 1 MG SOLN IV ONE (01:44)
[2023-09-16] MEDS: DILTIAZEM 125 MG in SODIUM CHLORIDE 0.9% 100 ML IV SCH (01:44)
[2023-09-16] MEDS: MIDAZOLAM 1 MG/ML 5 ML VIAL IV STA (02:18)
--- NOTE | 2023-09-16 03:21 | CT ---
EXAM: CT Abdomen and Pelvis Without Intravenous Contrast CLINICAL HISTORY: ITS.REASON CT Reason: abdominal pain, distention TECHNIQUE: Axial computed tomography images of the abdomen and pelvis without intravenous contrast. CTDI is 10.3 mGy and DLP is 583.3 mGy-cm. This CT exam was performed using one or more of the following dose reduction techniques: automated exposure control, adjustment of the mA and/or kV according to patient size, and/or use of iterative reconstruction technique. COMPARISON: Comparison made to prior CT scan of abdomen and pelvis from December 06, 2021. FINDINGS: Lung bases: Unremarkable. No mass. No consolidation. ABDOMEN: Liver: Unremarkable. Gallbladder and bile ducts: Unremarkable cholelithiasis with distended gallbladder. No ductal dilation. Pancreas: Unremarkable. No ductal dilation. Spleen: Unremarkable. No splenomegaly. Adrenals: Large left adrenal mass, likely representing an adenoma. Kidneys and ureters: Right hydronephrosis with double pigtail urinary catheter in place. Multiple renal cysts some of which are hyperdense likely the sequelae of internal hemorrhage. Stomach and bowel: Multiple dilated loops of small bowel with a transition point in the pelvis. Diverticulosis of the descending and sigmoid colon. PELVIS: Appendix: No findings to suggest acute appendicitis. Bladder: Unremarkable. No stones. Reproductive: Unremarkable as visualized. ABDOMEN and PELVIS: Intraperitoneal space: Unremarkable. No free air. There is a tiny amount of low-attenuation fluid in the pelvis. Bones/joints: Status post left hip arthroplasty. No acute fracture. No dislocation. Soft tissues: Unremarkable. Vasculature: Unremarkable. No abdominal aortic aneurysm. Lymph nodes: Unremarkable. No enlarged lymph nodes. IMPRESSION: Findings consistent with small bowel obstruction with a transition point in the pelvis. Cholelithiasis without evidence of cholecystitis. Right hydronephrosis with urinary catheter in place. <MYCVCSECTION> Communications: 09/16/23 03:39 Verify Receipt Verified receipt with [facility] in ER for Dr. Torres on 09/15 03:42 (-04:00)
[2023-09-16] MEDS ORDERED: NALOXONE 0.4 MG/ML 1 ML VIAL IV PRN (03:26)
--- NOTE | 2023-09-16 05:01 | XR ---
EXAM: XR Chest, 1 View CLINICAL HISTORY: ITS.REASON XR Reason: NG TECHNIQUE: Frontal view of the chest. COMPARISON: Chest radiograph on 09/15/2023 FINDINGS: Hardware: Enteric tube terminates in the region of the distal esophagus/GE junction. Recommend advancement. Lungs/pleura: Similar interstitial markings and bibasilar atelectasis. No pleural effusion or pneumothorax. Heart/mediastinum: Stable enlargement of the cardiac silhouette. Atherosclerotic changes Soft tissues: Unremarkable. Bones: No acute fracture. Degenerative changes of the spine. Upper abdomen: Normal. IMPRESSION: 1. Enteric tube terminates in the region of the distal esophagus/GE junction. Recommend advancement. 2. Similar interstitial markings and bibasilar atelectasis.
[2023-09-16 05:36] LABS: Basophils % (A) 0 %; Eosinophils # (A) 0.1 k/uL (0-0.7); Eosinophils % (A) 1 %; HCT 40.4 % (34.0-46.0); HGB 12.4 gm/dL (11.4-16.0); Hypochromasia Moderate; Lymphocytes # (A) 0.5 k/uL (1.0-4.8); Lymphocytes % (A) 4 %; MCH 31.5 pg (25.0-35.0); MCHC 30.7 g/dL (31.0-37.0); MCV 102.6 fL (80.0-100.0); Macrocytosis Slight; Mean Platelet Volume 8.3; Monocytes # (A) 0.6 k/uL (0-1.0); Monocytes % (A) 5 %; Neutrophils # (A) 10.4 k/uL (1.3-7.7); Neutrophils % (A) 89 %; Platelet Count 194 k/uL (150-450); RBC 3.94 m/uL (3.80-5.40); RDW 14.1 % (11.5-15.5); WBC 11.6 k/uL (3.8-10.6)
[2023-09-16 06:09] LABS: ALT 14 U/L (4-34); AST 23 U/L (14-36); African American GFR (CKD) 35 (>60 ml/min/1.73 sqM); Albumin 3.5 g/dL (3.5-5.0); Alkaline Phosphatase 73 U/L (38-126); Anion Gap 10 mmol/L; Blood Urea Nitrogen 35 mg/dL (7-17); Calcium 9.6 mg/dL (8.4-10.2); Carbon Dioxide 22 mmol/L (22-30); Chloride 112 mmol/L (98-107); Glucose 69 mg/dL (74-99); Non-African American GFR(CKD) 30 (>60 ml/min/1.73 sqM); Potassium 4.6 mmol/L (3.5-5.1); Sodium 144 mmol/L (137-145); Total Bilirubin 1.4 mg/dL (0.2-1.3); Total Protein 6.3 g/dL (6.3-8.2)
[2023-09-16 07:06] LABS: Amorphous Sediment,Urine Rare /hpf; Appearance,Urine Turbid (Clear); Bacteria,Urine Rare /hpf; Bilirubin,Urine Negative (Negative); Blood,Urine Large (Negative); Color,Urine Light Red; Glucose,Urine (UA) 1+ (Negative); Ketones,Urine Negative (Negative); Leukocyte Esterase,Urine Moderate (Negative); Mucus,Urine Occasional /hpf; Nitrite,Urine Negative (Negative); Protein,Urine 2+ (Negative); RBC,Urine >182 /hpf (0-5); Specific Gravity,Urine 1.022 (1.001-1.035); Squamous Epithelial Cell,Urine 3 /hpf (0-4); Urobilinogen,Urine <2.0 mg/dL (<2.0); WBC,Urine 117 /hpf (0-5)
[2023-09-16 09:06] LABS: Glucose,Whole Blood 118 mg/dL (70-110)
--- NOTE | 2023-09-16 10:50 | XR ---
EXAMINATION TYPE: XR chest 1V DATE OF EXAM: 09/16/2023 COMPARISON: 09/16/2023 INDICATION: NG tube placement TECHNIQUE: Single frontal view of the chest is obtained. FINDINGS: The heart size is mildly prominent. The pulmonary vasculature is normal. Bibasilar infiltrates are present. Nasogastric tube is present with the tip in the left upper quadrant of the abdomen. Degenerative joint changes at the left shoulder IMPRESSION: 1. Bibasilar infiltrates. 2. Nasogastric tube tip left upper quadrant abdomen.
[2023-09-16] MEDS: PANTOPRAZOLE 40 MG/10 ML VIAL IV SCH (11:25)
[2023-09-16] MEDS: amLODIPine 10 MG TAB PO SCH (11:25)
[2023-09-16] MEDS: dexAMETHasone 2 MG TAB PO SCH (11:26)
[2023-09-16] MEDS: ANASTROZOLE 1 MG TAB PO SCH (11:26)
[2023-09-16] MEDS: ENOXAPARIN 40 MG/0.4 ML SYRINGE SQ SCH (11:26)
[2023-09-16] MEDS: METOPROLOL TARTRATE 50 MG TAB PO SCH (11:27)
--- NOTE | 2023-09-16 13:45 | P.GSCN ---
History of Present Illness Consult date: 09/16/23 History of present illness: CHIEF COMPLAINT: Abdominal pain HISTORY OF PRESENT ILLNESS: This is a 78-year-old female with a known history of endometrial cancer. She presented to the hospital via ambulance due to nausea, vomiting and abdominal pain. Patient is currently lethargic and unable to provide history. History obtained from chart. Patient has NG tube in place with 400 mL output. She had a CT scan abdomen and pelvis that showed small bowel obstruction with transition point in the pelvis. No prior abdominal surgeries reported. Patient was started on Cardizem for A-fib RVR in ER. PAST MEDICAL HISTORY: See list. PAST SURGICAL HISTORY: See list. MEDICATIONS: See list. ALLERGIES: See list. SOCIAL HISTORY: No illicit drug use. REVIEW OF SYSTEMS: Unable to obtain PHYSICAL EXAM: VITAL SIGNS: Reviewed GENERAL: no acute distress. HEENT: No sclera icterus. Extraocular movements grossly intact. Moist buccal mucosa. Head is atraumatic, normocephalic. No nasal drainage. NECK: Supple without lymphadenopathy. CHEST: Non-labored respirations and equal bilateral excursions. CARDIOVASCULAR: Palpable 2+ radial pulses. ABDOMEN: Soft. Nondistended. Nontender MUSCULOSKELETAL: No clubbing or cyanosis. NEUROLOGIC: lethargic SKIN: Well perfused. Good skin turgor. LABORATORY DATA: WBC 11.6 hgb 12.4 plt 194 Na 144 K 6.1 down to 4.6 creatinine 1.61 IMAGING: CT scan abdomen pelvis findings consistent with small bowel obstruction with transition point in the pelvis. Cholelithiasis without evidence of cholecystitis. Right hydronephrosis with urinary catheter in place ASSESSMENT: 1. Small bowel obstruction with transition point noted in the pelvis per CT 2. A-fib RVR 3. History of endometrial cancer 4. Hyperkalemia corrected 5. Chronic kidney disease PLAN: -Small bowel follow-through with Gastrografin ordered for further evaluation of small bowel obstruction -Continue NG tube for decompression -Keep patient n.p.o. -Continue IV fluids Thank you for this consultation Physician Strap Setter note has been reviewed by physician. Signing provider agrees with the documented findings, assessment, and plan of care. Please see additional documentation below CHIEF COMPLAINT: Bowel obstruction HISTORY OF PRESENT ILLNESS: The patient is a 78-year-old female with presents with confusion with minimal verbal history obtained by her. Diagnostic studies were obtained at the time of presentation to the hospital that demonstrated bowel obstruction. No surgical record abdominal surgeries. She has history of cervical cancer treated with radiation. History is obtained per review of patient current and past medical records. General surgery is consulted due to bowel obstruction. PAST MEDICAL HISTORY: See list and reviewed PAST SURGICAL HISTORY: See list and reviewed MEDICATIONS: See list and reviewed ALLERGIES: See list and reviewed SOCIAL HISTORY: See list and reviewed FAMILY HISTORY: See list and reviewed REVIEW OF ORGAN SYSTEMS: History obtained per records in chart. CONSTITUTIONAL: No fevers. No recent weight loss. EYES: No trouble with vision. No glasses. HEENT: No difficulties with hearing. No nosebleeds. No difficulty swallowing. RESPIRATORY: Denies pneumonia. Denies any troubles with breathing or dyspnea on exertion. CARDIOVASCULAR: Has atrial fibrillation. History of myocardial infarction and hyperlipidemia. Has coronary artery disease. Ischemic cardiomyopathy GASTROINTESTINAL: History of GI bleed. GENITOURINARY: History of cervical cancer postradiation. Chronic kidney disease, stage III due to hypertensive heart disease NEUROLOGICAL: History of stroke. MUSCULOSKELETAL: Denies any back pain, stiffness or joint arthritis. SKIN: No current skin cancer. No rash. PSYCHIATRIC: Denies current depression or suicidal thoughts. ENDOCRINE: Denies current thyroid disorders. Denies any blood sugar glucose intolerance. HEME/LYMPHATIC: Denies any lumps and bumps around the neck. No recent deep venous thrombosis. ALLERGY/IMMUNOLOGY: No immunoglobulin therapy. No immune deficiencies. BREAST: Denies current breast lumps, pain or nipple discharge. PHYSICAL EXAM: VITALS: Reviewed CONSTITUTIONAL: Well developed and in no acute distress. EYES: Conjuctivae without sclera icterus. Extraocular movements grossly intact. HEAD, EARS, NOSE, THROAT: Moist buccal mucosa. Head is atraumatic, normocephalic. Hears conversational speech. No nasal drainage. Nasogastric tube present NECK: Supple. No JV distention. No thyroidomegaly. RESPIRATORY: Non-labored respirations and equal bilateral excursions. No gross wheezes. CARDIOVASCULAR: Palpable 2+ radial pulses. ABDOMEN:Abdominal distention. No peritonitis. LYMPH: No neck lymphadenopathy. MUSCULOSKELETAL: No clubbing cyanosis or edema SKIN: Warm and well perfused with good skin turgor. NEUROLOGIC: Cranial nerves II through XII grossly intact. No focal or lateralizing signs. PSYCH: Alert and oriented to person. CLINCAL LABS: Reviewed. WBC elevated 10.0-11.6. Creatinine elevated 1.6. Noted bilirubin elevated. Presence of sigmoid diverticulosis. Foreign body within the small bowel identified in the left lower quadrant IMAGING: Independently reviewed. CT of the abdomen pelvis independently reviewed demonstrated moderately dilated small bowel loops with tapering at the left pelvis. Large multiple gallstones with distended gallbladder. This is my independent interpretation. RADIOLOGY: Report reviewed. Presence of bowel obstruction pelvis transition point, gallstones, right hydronephrosis. RECORDS: previous old records reviewed. November 2021 colonoscopy demonstrates severe diverticulosis. Antral gastritis from upper endoscopy reviewed. ASSESSMENT: 1. Abnormal CT scan for small bowel obstruction 2. Leukocytosis 3. Coronary artery disease 4. Atrial fibrillation 5. Chronic kidney disease stage III due to hypertensive heart disease 6. Ischemic cardiomyopathy PLAN: 1. Recommend small bowel follow-through where this may also be therapeutic including diagnostic. 2. Continue nasogastric tube decompression 3. May need surgical intervention pending clinical course ADVANCE DIRECTIVE: CODE STATUS in chart Thank you for this kind consultation. Past Medical History Past Medical History: Atrial Fibrillation, Cancer, CVA/TIA, GI Bleed, Hyperlipidemia, Myocardial Infarction ([place]) Additional Past Medical History / Comment(s): 07/27/17 FALL'LT HIP FX. 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 History of COVID-19, cervical cancer treated with radiation. No taking Eliquis due to bleeding issues in past. Last Myocardial Infarction Date:: 2009 History of Any Multi-Drug Resistant Organisms: None Reported Past Surgical History: Heart Catheterization, Orthopedic Surgery, Tonsillectomy Additional Past Surgical History / Comment(s): ORIF RT ANKLE HAS PLATE. Past Anesthesia/Blood Transfusion Reactions: No Reported Reaction Past Psychological History: No Psychological Hx Reported Smoking Status: Former smoker, Never smoker Past Alcohol Use History: None Reported Past Drug Use History: None Reported - Past Family History Mother Family Medical History: No Reported History Additional Family Medical History / Comment(s): FROM ANUERYSM Father Family Medical History: No Reported History Medications and Allergies Home Medications Medication Instructions Recorded Confirmed Type No Known Home Medications 09/16/23 09/16/23 History Allergies Allergy/AdvReac Type Severity Reaction Status Date / Time No Known Allergies Allergy Verified 09/16/23 10:37 Surgical - Exam Vital Signs Temp Pulse Resp BP Pulse Ox 97.4 F L 144 H 18 152/132 98 09/15/23 22:48 09/15/23 22:48 09/15/23 22:48 09/15/23 22:48 09/15/23 22:48 Results - Labs 09/16/23 05:10 09/16/23 05:10 Abnormal Lab Results - Last 24 Hours (Table) 09/15/23 09/15/23 09/16/23 Range/Units 23:54 23:54 05:10 WBC (3.8-10.6) k/uL MCV (80.0-100.0) fL MCHC (31.0-37.0) g/dL Neutrophils # 8.6 H (1.3-7.7) k/uL Lymphocytes # 0.8 L (1.0-4.8) k/uL Potassium 6.1 H* (3.5-5.1) mmol/L Chloride 112 H (98-107) mmol/L BUN 37 H 35 H (7-17) mg/dL Creatinine 1.71 H 1.61 H (0.52-1.04) mg/dL Glucose 157 H 69 L (74-99) mg/dL POC Glucose (mg/dL) (70-110) mg/dL Total Bilirubin 1.4 H (0.2-1.3) mg/dL Urine Appearance (Clear) Urine Protein (Negative) Urine Glucose (UA) (Negative) Urine Blood (Negative) Ur Leukocyte Esterase (Negative) Urine RBC (0-5) /hpf Urine WBC (0-5) /hpf Urine WBC Clumps (None) /hpf Amorphous Sediment (None) /hpf Urine Bacteria (None) /hpf Urine Mucus (None) /hpf 09/16/23 09/16/23 09/16/23 Range/Units 05:10 06:40 09:03 WBC 11.6 H (3.8-10.6) k/uL MCV 102.6 H (80.0-100.0) fL MCHC 30.7 L (31.0-37.0) g/dL Neutrophils # 10.4 H (1.3-7.7) k/uL Lymphocytes # 0.5 L (1.0-4.8) k/uL Potassium (3.5-5.1) mmol/L Chloride (98-107) mmol/L BUN (7-17) mg/dL Creatinine (0.52-1.04) mg/dL Glucose (74-99) mg/dL POC Glucose (mg/dL) 118 H (70-110) mg/dL Total Bilirubin (0.2-1.3) mg/dL Urine Appearance Turbid H (Clear) Urine Protein 2+ H (Negative) Urine Glucose (UA) 1+ H (Negative) Urine Blood Large H (Negative) Ur Leukocyte Esterase Moderate H (Negative) Urine RBC >182 H (0-5) /hpf Urine WBC 117 H (0-5) /hpf Urine WBC Clumps Few H (None) /hpf Amorphous Sediment Rare H (None) /hpf Urine Bacteria Rare H (None) /hpf Urine Mucus Occasional H (None) /hpf Diabetes panel 09/15/23 09/16/23 Range/Units 23:54 05:10 Sodium 137 144 (137-145) mmol/L Potassium 6.1 H* 4.6 (3.5-5.1) mmol/L Chloride 106 112 H (98-107) mmol/L Carbon Dioxide 22 22 (22-30) mmol/L BUN 37 H 35 H (7-17) mg/dL Creatinine 1.71 H 1.61 H (0.52-1.04) mg/dL Glucose 157 H 69 L (74-99) mg/dL Calcium 9.3 9.6 (8.4-10.2) mg/dL AST 32 23 (14-36) U/L ALT 14 14 (4-34) U/L Alkaline Phosphatase 56 73 (38-126) U/L Total Protein 6.6 6.3 (6.3-8.2) g/dL Albumin 3.5 3.5 (3.5-5.0) g/dL Calcium panel 09/15/23 09/16/23 Range/Units 23:54 05:10 Calcium 9.3 9.6 (8.4-10.2) mg/dL Albumin 3.5 3.5 (3.5-5.0) g/dL Pituitary panel 09/15/23 09/16/23 Range/Units 23:54 05:10 Sodium 137 144 (137-145) mmol/L Potassium 6.1 H* 4.6 (3.5-5.1) mmol/L Chloride 106 112 H (98-107) mmol/L Carbon Dioxide 22 22 (22-30) mmol/L BUN 37 H 35 H (7-17) mg/dL Creatinine 1.71 H 1.61 H (0.52-1.04) mg/dL Glucose 157 H 69 L (74-99) mg/dL Calcium 9.3 9.6 (8.4-10.2) mg/dL Adrenal panel 09/15/23 09/16/23 Range/Units 23:54 05:10 Sodium 137 144 (137-145) mmol/L Potassium 6.1 H* 4.6 (3.5-5.1) mmol/L Chloride 106 112 H (98-107) mmol/L Carbon Dioxide 22 22 (22-30) mmol/L BUN 37 H 35 H (7-17) mg/dL Creatinine 1.71 H 1.61 H (0.52-1.04) mg/dL Glucose 157 H 69 L (74-99) mg/dL Calcium 9.3 9.6 (8.4-10.2) mg/dL Total Bilirubin 1.3 1.4 H (0.2-1.3) mg/dL AST 32 23 (14-36) U/L ALT 14 14 (4-34) U/L Alkaline Phosphatase 56 73 (38-126) U/L Total Protein 6.6 6.3 (6.3-8.2) g/dL Albumin 3.5 3.5 (3.5-5.0) g/dL
--- NOTE | 2023-09-16 13:52 | P.HPIM ---
History of Present Illness H&P Date: 09/16/23 Chief Complaint: Abdominal pain vomiting This is a pleasant 78,years old female with past medical history of Atrial Fibrillation on Eliquis, CVA/TIA, GI Bleed, Hyperlipidemia, chronic GI bleed Attempted colonoscopy in 2021 showed a tortuous colon. Has known uterine adenocarcinoma. Received radiation treatment 2018. Then was lost to follow-up. Also supposed to followed up with radiation treatment at [facility]. Also had right-sided hydronephrosis in the past with right-sided ureteral stent. Patient now presents 1 day history of nausea vomiting abdominal pain. Patient not a good historian. Forgetful. She also had a history of uterine ad enocarcinoma. Unclear who she followed up in the recent past. Found to have small bowel obstruction in the ER. NG tube to suction was placed. Was in A-fib with rapid ventricular rate. Tired. To be noted patient does not take any medications at home. Review of systems: GEN.: Tired EYES: None HEENT: None NECK: None RESPIRATORY: None CARDIOVASCULAR: None GASTROINTESTINAL: Nausea vomiting abdominal pain GENITOURINARY: None MUSCULOSKELETAL: Joint pains LYMPHATICS: None HEMATOLOGICAL: None PSYCHIATRY: Careful NEUROLOGICAL: Does use a motorized chair Social history: Lives at [facility].. Does use a motorized chair. Gets Meals on Wheels. Started smoking at the age of 13 stopped in 2011. 1 pack a day. No alcohol. INVESTIGATIONS, reviewed in the clinical context: September 15: White count 11.6 hemoglobin 12.4 platelets 194 sodium 144 potassium 4.6 BUN 35 creatinine 1.61 UA positive for blood. Leukoesterase. WBC clumps. Chest x-ray film personally reviewed by me-nonspecific CT scan abdomen pelvis: Distended gallbladder. No ductal dilatation. Large left adrenal mass likely adenoma. Right hydronephrosis with double-J pigtail urinary catheter in place. Multiple dilated loops of small bowel with a transition point in the pelvis. Diverticulosis of descending and sigmoid colon. EKG tracing personally reviewed by me-atrial fibrillation, rate 146 Previous investigations: 2D echocardiogram April 2023 EF 45 to 50% moderate to severe mitral regurgitation Assessment and plan: -Acute small bowel obstruction, history of 1 day. With nausea vomiting abdominal pain. Transition point in the pelvis. NG tube to suction. General surgery consulted -Known tortuous colon with a prior history of unsuccessful colonoscopy -Severe colonic diverticulosis -History of vaginal bleeding in a patient with known uterine adenocarcinoma. - radiation treatment 2018. Apparently patient was lost to follow-up. Supposed to follow-up with Dr. Reina at [facility] -Chronic kidney disease stage III likely nephrosclerosis Creatinine 1.6 -Chronic congestive heart failure from diastolic dysfunction EF 55-60 % Follow clinically. -Moderate to severe mitral regurgitation -CAD with a history of stent Patient not taking any medications at home -Persistent atrial fibrillation, rate uncontrolled IV Cardizem drip -Choledocholithiasis, asymptomatic -Large left adrenal mass likely adenoma -Moderate cognitive impairment from likely Alzheimer's dementia -Full code Consultation to cardiology, general surgery. Past Medical History Past Medical History: Atrial Fibrillation, Cancer, CVA/TIA, GI Bleed, Hyperlipidemia, Myocardial Infarction ([place]) Additional Past Medical History / Comment(s): 07/27/17 FALL'LT HIP FX. OTHER HX"BOARDERLINE DIABETIC- NO MEDS BUT CHECKS BS ONCE A DAY,CVA/TIA 2011 NO RESID UAL EEFECTS, RT ANKLE BROKEN-(SX DONE HAD PLATE), PAST STRESS TEST. History of COVID-19, cervical cancer treated with radiation. No taking Eliquis due to bleeding issues in past. Last Myocardial Infarction Date:: 2009 History of Any Multi-Drug Resistant Organisms: None Reported Past Surgical History: Heart Catheterization, Orthopedic Surgery, Tonsillectomy Additional Past Surgical History / Comment(s): ORIF RT ANKLE HAS PLATE. Past Anesthesia/Blood Transfusion Reactions: No Reported Reaction Past Psychological History: No Psychological Hx Reported Smoking Status: Former smoker, Never smoker Past Alcohol Use History: None Reported Past Drug Use History: None Reported - Past Family History Mother Family Medical History: No Reported History Additional Family Medical History / Comment(s): FROM ANUERYSM Father Family Medical History: No Reported History Medications and Allergies Home Medications Medication Instructions Recorded Confirmed Type No Known Home Medications 09/16/23 09/16/23 History Allergies Allergy/AdvReac Type Severity Reaction Status Date / Time No Known Allergies Allergy Verified 09/16/23 10:37 Physical Exam Vitals: Vital Signs Temp Pulse Resp BP Pulse Ox 09/16/23 08:00 158 H 17 125/93 96 09/16/23 07:00 98 16 123/87 95 09/16/23 04:17 108 H 16 92/77 97 09/16/23 03:30 112 H 19 111/72 95 09/16/23 03:00 133 H 17 98/72 98 09/16/23 02:25 95 09/16/23 02:01 95 18 128/96 91 L 09/16/23 01:48 125 H 18 128/96 95 09/16/23 01:30 157/126 09/16/23 01:00 160 H 22 09/16/23 00:30 135 H 12 149/126 09/16/23 00:00 160 H 22 95 09/15/23 23:46 22 153/130 96 09/15/23 22:48 97.4 F L 144 H 18 152/132 98 Intake and Output 09/15/23 09/16/23 09/16/23 22:59 06:59 14:59 Intake Total 19.167 Balance 19.167 Intake: Intake, IV Titration 19.167 Amount Diltiazem 125 mg In 19.167 Sodium Chloride 0.9% 100 ml @ Per Protocol IV .Q0M [facility] Rx#:[id number] Other: Weight 90.718 kg Results CBC & Chem 7: 09/16/23 05:10 09/16/23 05:10 Labs: Abnormal Lab Results - Last 24 Hours (Table) 09/15/23 09/15/23 09/16/23 Range/Units 23:54 23:54 05:10 WBC (3.8-10.6) k/uL MCV (80.0-100.0) fL MCHC (31.0-37.0) g/dL Neutrophils # 8.6 H (1.3-7.7) k/uL Lymphocytes # 0.8 L (1.0-4.8) k/uL Potassium 6.1 H* (3.5-5.1) mmol/L Chloride 112 H (98-107) mmol/L BUN 37 H 35 H (7-17) mg/dL Creatinine 1.71 H 1.61 H (0.52-1.04) mg/dL Glucose 157 H 69 L (74-99) mg/dL POC Glucose (mg/dL) (70-110) mg/dL Total Bilirubin 1.4 H (0.2-1.3) mg/dL Urine Appearance (Clear) Urine Protein (Negative) Urine Glucose (UA) (Negative) Urine Blood (Negative) Ur Leukocyte Esterase (Negative) Urine RBC (0-5) /hpf Urine WBC (0-5) /hpf Urine WBC Clumps (None) /hpf Amorphous Sediment (None) /hpf Urine Bacteria (None) /hpf Urine Mucus (None) /hpf 09/16/23 09/16/23 09/16/23 Range/Units 05:10 06:40 09:03 WBC 11.6 H (3.8-10.6) k/uL MCV 102.6 H (80.0-100.0) fL MCHC 30.7 L (31.0-37.0) g/dL Neutrophils # 10.4 H (1.3-7.7) k/uL Lymphocytes # 0.5 L (1.0-4.8) k/uL Potassium (3.5-5.1) mmol/L Chloride (98-107) mmol/L BUN (7-17) mg/dL Creatinine (0.52-1.04) mg/dL Glucose (74-99) mg/dL POC Glucose (mg/dL) 118 H (70-110) mg/dL Total Bilirubin (0.2-1.3) mg/dL Urine Appearance Turbid H (Clear) Urine Protein 2+ H (Negative) Urine Glucose (UA) 1+ H (Negative) Urine Blood Large H (Negative) Ur Leukocyte Esterase Moderate H (Negative) Urine RBC >182 H (0-5) /hpf Urine WBC 117 H (0-5) /hpf Urine WBC Clumps Few H (None) /hpf Amorphous Sediment Rare H (None) /hpf Urine Bacteria Rare H (None) /hpf Urine Mucus Occasional H (None) /hpf
--- NOTE | 2023-09-17 06:05 | FL ---
EXAMINATION TYPE: FL small bowel follow through DATE OF EXAM: 09/16/2023 CLINICAL HISTORY: SBO TECHNIQUE: A single contrast small bowel follow through is performed utilizing barium. COMPARISON: None FINDINGS: Belt Measurer image of the abdomen shows small bowel obstruction pattern. AP portable supine radiographs were obtained at 0 minutes, 1 hour, 3 hours, 6 hours, and 8.5 hours. T he barium contrast opacifies the stomach and jejunum on all images, and ileal loops are opacified sta rting at 3 hours. The distal ileum is not opacified on 8 hour 30 minute radiograph. IMPRESSION: Abnormal small bowel follow through consistent with small bowel obstruction. Plan is to obtain follo w up radiography morning of 09/17/2023.
--- NOTE | 2023-09-17 11:08 | XR ---
EXAMINATION TYPE: XR KUB portable DATE OF EXAM: 09/17/2023 COMPARISON: 09/16/2023 INDICATION: Follow up small bowel TECHNIQUE: Single view abdomen supine view FINDINGS: There is a normal bowel gas pattern. Psoas margins are normal. No organomegaly is present. Stent is present on the right. The lower colon contains contrast throughout the colon. Nasogastric tube tip is in the left upper ronnie drant of the abdomen. IMPRESSION: 1. No discrete obstruction. Contrast appears to be throughout the colon.
--- NOTE | 2023-09-17 11:38 | P.CRDCN ---
History of Present Illness History of present illness: HISTORY OF PRESENT ILLNESS: This is a 78-year-old female with a past medical history significant for nonischemic cardiomyopathy, CVA, mitral regurgitation, and persistent atrial fibrillation. Patient follows in the office with Dr. Montana. We have been asked to see the patient in consultation for A-fib with RVR. Patient examined at the bedside. Patient initially presented to the hospital with a chief complaint of abdominal pain. She states she has been having abdominal pain for the past 2 to 3 days. She reports having multiple episodes of vomiting. Patient was found to have a small bowel obstruction. Patient has an NG tube in currently to low intermittent suction. She remains NPO. She continues to report abdominal pain at the time of examination. Patient was also found to be in A-fib with RVR. She was started on IV Cardizem which continues to infuse at 10 mg an hour. She is unable to take oral medications secondary to her acute abdominal issues. Patient is not anticoagulated on an outpatient basis due to history of vaginal bleeding per most recent office records from cardiology office. DIAGNOSTICS: - EKG reveals A-fib with RVR. - Chest xray negative for acute process. - Laboratory data: WBC 10.6. Hemoglobin 12.4. Platelet count 194. Sodium 144. Potassium 4.6. BUN 35. Creatinine 1.61. - Current home cardiac medications include none. - Most recent echocardiogram obtained in April 2023 revealed ejection fraction 45 to 50%, moderate pulmonary hypertension, moderate to severe MR, mild AR - Cardiac catheterization history: 2017 revealing normal coronary arteries REVIEW OF SYSTEMS: At the time of my exam: CONSTITUTIONAL: Denies fever or chills. HEENT: Denies blurred vision, vision changes, or eye pain. Denies hemoptysis CARDIOVASCULAR: Denies chest pain. Denies orthopnea. Denies PND. Denies palpitations RESPIRATORY: Denies shortness of breath. GASTROINTESTINAL: Denies abdominal pain. Denies nausea or vomiting. HEMATOLOGIC: Denies bleeding disorders. GENITOURINARY: Denies any blood in urine. SKIN: Denies pruitis. Denies rash. PHYSICAL EXAM: VITAL SIGNS: Reviewed. GENERAL: Well-developed in no acute distress. HEENT: Head is normocephalic. Pupils are equal, round. Sclerae anicteric. Mucous membranes of the mouth are moist. Neck supple. No JVD or thyromegaly LUNGS: Respirations even and unlabored. Lungs essentially clear to auscultation bilaterally. HEART: Regular rate and rhythm. S1 and S2 heard. 3/6 systolic murmur at the apex ABDOMEN: Soft. Tenderness with palpation. NGT noted to low intermittent suction EXTREMITIES: Normal range of motion. No clubbing or cyanosis. Peripheral pulses intact. No lower extremity edema NEUROLOGIC: Awake and alert. Oriented x 3. ASSESSMENT: Abdominal pain Small bowel obstruction Persistent atrial fibrillation with RVR, not anticoagulated on an outpatient basis secondary to significant vaginal bleeding History of nonischemic cardiomyopathy Normal coronary arteries, per cardiac catheterization 2016 Moderate pulmonary hypertension Moderate to severe mitral regurgitation History of CVA PLAN: Continue IV Cardizem while patient is n.p.o. Patient is not anticoagulated on outpatient basis secondary to history of significant vaginal bleeding No need to repeat echocardiogram as this was performed in April 2023 Continue telemetry monitoring Further recommendations pending patient course Nurse practitioner note has been reviewed by physician. Signing provider agrees with the documented findings, assessment, and plan of care documented by ORACLE SPECIALIST as a scribe. Past Medical History Past Medical History: Atrial Fibrillation, Cancer, CVA/TIA, GI Bleed, Hyperlipidemia, Myocardial Infarction (CT) Additional Past Medical History / Comment(s): 07/27/17 FALL'LT HIP FX. 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 History of COVID-19, cervical cancer treated with radiation. No taking Eliquis due to bleeding issues in past. Last Myocardial Infarction Date:: 2009 History of Any Multi-Drug Resistant Organisms: None Reported Past Surgical History: Heart Catheterization, Orthopedic Surgery, Tonsillectomy Additional Past Surgical History / Comment(s): ORIF RT ANKLE HAS PLATE. Past Anesthesia/Blood Transfusion Reactions: No Reported Reaction Past Psychological History: No Psychological Hx Reported Smoking Status: Former smoker, Never smoker Past Alcohol Use History: None Reported Past Drug Use History: None Reported - Past Family History Mother Family Medical History: No Reported History Additional Family Medical History / Comment(s): FROM ANUERYSM Father Family Medical History: No Reported History Medications and Allergies Home Medications Medication Instructions Recorded Confirmed Type No Known Home Medications 09/16/23 09/16/23 History Allergies Allergy/AdvReac Type Severity Reaction Status Date / Time No Known Allergies Allergy Verified 09/16/23 10:37 Physical Exam Vitals: Vital Signs Temp Pulse Pulse Resp BP BP BP 09/17/23 11:20 97.6 F 98 14 173/72 09/17/23 08:40 12 09/17/23 07:45 98 F 105 H 12 118/61 09/17/23 04:00 97.7 F 102 H 20 126/74 09/17/23 02:00 112 H 19 09/17/23 00:00 97.9 F 116 H 20 129/86 09/16/23 20:00 98.1 F 98 19 127/77 09/16/23 16:27 98.0 F 89 17 124/74 09/16/23 16:23 98.0 F 89 17 124/74 09/16/23 15:13 98.0 F 85 18 120/74 09/16/23 14:00 90 18 117/74 09/16/23 12:52 85 18 100/77 Pulse Ox 09/17/23 11:20 94 L 09/17/23 08:40 09/17/23 07:45 95 09/17/23 04:00 96 09/17/23 02:00 09/17/23 00:00 96 09/16/23 20:00 93 L 09/16/23 16:27 95 09/16/23 16:23 95 09/16/23 15:13 96 09/16/23 14:00 95 09/16/23 12:52 97 Intake and Output 09/16/23 09/17/23 09/17/23 22:59 06:59 14:59 Intake Total 96.667 97.167 Output Total 300 1400 Balance -203.333 -1302.833 Intake: Intake, IV Titration 96.667 97.167 Amount Diltiazem 125 mg In 96.667 97.167 Sodium Chloride 0.9% 100 ml @ Per Protocol IV .Q0M [facility] Rx#:[id number] Output: Gastric Drainage 1200 Urine 200 Emesis 300 Other: Voiding Method External Catheter Bedside Commode Bedside Commode # Voids 1 Weight 90.718 kg Results 09/16/23 05:10 09/16/23 05:10 Current Medications Generic Name Dose Route Start Last Admin Trade Name Freq PRN Reason Stop Dose Admin Sodium Chloride 1,000 mls @ 130 mls/hr 09/15/23 23:30 09/17/23 08:08 Saline 0.9% IV 130 mls/hr .Q7H42M [facility] Administration Diltiazem HCl 125 mg/ Sodium 125 mls @ 0 mls/hr 09/16/23 01:30 09/17/23 00:57 Chloride IV 10 mg/hr .Q0M KALPES[facility] 10 mls/hr Administration Protocol Per Protocol Acetaminophen 1,000 mg/ IV 100 mls @ 400 mls/hr 09/17/23 11:05 Solution IVPB 09/18/23 06:01 Q6HR PRN Pain Naloxone HCl 0.2 mg 09/16/23 03:26 Naloxone 0.4 Mg/Ml 1 Ml Vial IV Q2M PRN Opioid Reversal Ondansetron HCl 4 mg 09/17/23 10:00 Ondansetron 4 Mg/2 Ml Vial IVP Q6HR PRN Nausea And Vomiting Intake and Output 09/16/23 09/17/23 09/17/23 22:59 06:59 14:59 Intake Total 96.667 97.167 Output Total 300 1400 Balance -203.333 -1302.833 Intake: Intake, IV Titration 96.667 97.167 Amount Diltiazem 125 mg In 96.667 97.167 Sodium Chloride 0.9% 100 ml @ Per Protocol IV .Q0M [facility] Rx#:[id number] Output: Gastric Drainage 1200 Urine 200 Emesis 300 Other: Voiding Method External Catheter Bedside Commode Bedside Commode # Voids 1 Weight 90.718 kg 09/16/23 05:10 09/16/23 05:10
[2023-09-17] MEDS: ACETAMINOPHEN IV (For NPO) 1,000 MG in EMPTY BAG 1 BAG IVPB PRN (12:06)
--- NOTE | 2023-09-17 14:39 | P.PN ---
Subjective Progress Note Date: 09/17/23 CHIEF COMPLAINT: Abdominal pain HISTORY OF PRESENT ILLNESS: Surgical service following in regards to patient's small bowel obstruction. Patient has NG tube in place with 1.4 liters output through the night and 600 mL output this morning. She had small bowel follow- through completed which did show evidence of small bowel obstruction. Abdominal x-ray in the morning reported no discrete obstruction. Contrast appears to be throughout the colon. Patient reports no flatus or bowel movement. She does have diffuse pain. She has been having nausea. Afebrile. Patient evaluated by cardiology for her A-fib. Patient denies any prior abdominal surgeries. Patient is more awake and alert today PHYSICAL EXAM: VITAL SIGNS: Reviewed GENERAL: Well-developed in no acute distress. HEENT: No sclera icterus. Extraocular movements grossly intact. Moist buccal mucosa. Head is atraumatic, normocephalic. Hears conversational speech. No nasal drainage. NECK: Supple without lymphadenopathy. CHEST: Non-labored respirations and equal bilateral excursions. CARDIOVASCULAR: Palpable 2+ radial pulses. ABDOMEN: Soft. Nondistended. Diffuse tenderness MUSCULOSKELETAL: No clubbing or cyanosis. NEUROLOGIC: No focal or lateralizing signs. Cranial nerves II through XII grossly intact. PSYCH: Appropriate affect. Awake and alert. Able to answer some questions. SKIN: Well perfused. Good skin turgor. ASSESSMENT: 1. Small bowel obstruction with transition point noted in the pelvis per CT. Follow-up abdominal x-ray showing no evidence of bowel obstruction 2. A-fib RVR 3. History of endometrial cancer 4. Hyperkalemia corrected 5. Chronic kidney disease 6. History of nonischemic cardiomyopathy PLAN: -Continue NG tube for decompression -Keep patient n.p.o. except for ice chips and popsicles -Continue IV fluids -IV Tylenol PRN added for pain control -Zofran PRN added for nausea Physician Stationary Engineer note has been reviewed by physician. Signing provider agrees with the documented findings, assessment, and plan of care. Please see additional documentation below CHIEF COMPLAINT: Bowel obstruction HISTORY OF PRESENT ILLNESS: The patient is a 78-year-old female presented with bowel obstruction. She is resting comfortably. Small bowel xray was obtained. REVIEW OF ORGAN SYSTEMS: No fevers or chills. No chest pain. No emesis. PHYSICAL EXAM: VITALS: Reviewed CONSTITUTIONAL: Well developed and in no acute distress. EYES: Conjuctivae without sclera icterus. Extraocular movements grossly intact. HEAD, EARS, NOSE, THROAT: Moist buccal mucosa. Head is atraumatic, normocephalic. Hears conversational speech. No nasal drainage. Nasogastric tube present RESPIRATORY: Non-labored respirations and equal bilateral excursions. No gross wheezes. CARDIOVASCULAR: Palpable 2+ radial pulses. ABDOMEN:Abdominal distention. No peritonitis. MUSCULOSKELETAL: No clubbing cyanosis or edema SKIN: Warm and well perfused with good skin turgor. NEUROLOGIC: Cranial nerves II through XII grossly intact. No focal or lateralizing signs. PSYCH: Alert and oriented to person. CLINCAL LABS: Reviewed. No new labs IMAGING: Independently reviewed. Abdominal xray reviewed with dilated small bowel. No free air. This is my independent interpretation. RADIOLOGY: Report reviewed. Demonstrates contrast in colon without definitive bowel obstruction. ASSESSMENT: 1. Small bowel obstruction PLAN: 1. Start ice chips and popsicles. 2. Recommend repeat abdominal xray. 3. Continue NG decompression Objective - Vital Signs Vital signs: Vital Signs Temp 97.6 F 09/17/23 11:20 Pulse 98 09/17/23 11:20 Resp 14 09/17/23 11:20 BP 107/78 09/17/23 11:50 Pulse Ox 94 L 09/17/23 11:20 FiO2 Intake & Output 09/16/23 09/17/23 09/17/23 18:59 06:59 18:59 Intake Total 96.667 97.167 Output Total 1700 800 Balance 96.667 -1602.833 -800 Weight 90.718 kg Intake: Intake, IV Titration 96.667 97.167 Amount Diltiazem 125 mg In 96.667 97.167 Sodium Chloride 0.9% 100 ml @ Per Protocol IV .Q0M [facility] Rx#:[id number] Output: Gastric Drainage 1200 600 Urine 200 200 Emesis 300 Other: Voiding Method External Catheter Bedside Commode Bedside Commode # Voids 1 1 - Labs CBC & Chem 7: 09/16/23 05:10 09/16/23 05:10 Labs: Microbiology - Last 24 Hours (Table) 09/15/23 23:46 Blood Culture - Preliminary Blood 09/15/23 23:31 Blood Culture - Preliminary Blood
--- NOTE | 2023-09-17 15:18 | P.PN ---
Progress Note - Text Progress Note Date: 09/17/23 Chief Complaint: Abdominal pain vomiting This is a pleasant 78,years old female with past medical history of Atrial Fibrillation on Eliquis, CVA/TIA, GI Bleed, Hyperlipidemia, chronic GI bleed Attempted colonoscopy in 2021 showed a tortuous colon. Has known uterine adenocarcinoma. Received radiation treatment 2018. Then was lost to follow-up. Also supposed to followed up with radiation treatment at [facility]. Also had right-sided hydronephrosis in the past with right-sided ureteral stent. Patient now presents 1 day history of nausea vomiting abdominal pain. Patient not a good historian. Forgetful. She also had a history of uterine adenocarcinoma. Unclear who she followed up in the recent past. Found to have small bowel obstruction in the ER. NG tube to suction was placed. Was in A-fib with rapid ventricular rate. Tired. To be noted patient does not take any medications at home. September 16: NG tube remains to suction. No flatus. Decreased abdominal pain. No nausea vomiting. A-fib remains uncontrolled. Remains on IV Cardizem drip. NPO. Because of significant vaginal bleeding patient was not anticoagulated. Small bowel follow-through shows findings consistent with SBO. Active Medications Sodium Chloride (Saline 0.9%) 1,000 mls @ 130 mls/hr IV .Q7H42M [facility] Last Admin: 09/17/23 15:08 Dose: 130 mls/hr Diltiazem HCl 125 mg/ Sodium (Chloride) 125 mls @ 0 mls/hr IV .Q0M [facility]; Prot ocol Last Admin: 09/17/23 00:57 Dose: 10 mg/hr, 10 mls/hr Acetaminophen 1,000 mg/ IV (Solution) 100 mls @ 400 mls/hr IVPB Q6HR PRN PRN Reason: Pain Stop: 09/18/23 06:01 Last Admin: 09/17/23 12:06 Dose: 400 mls/hr Naloxone HCl (Naloxone 0.4 Mg/Ml 1 Ml Vial) 0.2 mg IV Q2M PRN PRN Reason: Opioid Reversal Ondansetron HCl (Ondansetron 4 Mg/2 Ml Vial) 4 mg IVP Q6HR PRN PRN Reason: Nausea And Vomiting Social history: Lives at [facility] Does use a motorized chair. Gets Meals on Whe[employer]. Started smoking at the age of 13 stopped in 2011. 1 pack a day. No alcohol. Physical examination: VITAL SIGNS: 97.6, 98, 14, 128 x 76, 95% on 2 L GENERAL: BMI 29.5, reclining-uncomfortable. EYES: Pupils equal. Conjunctiva mina l. HEENT: External appearance of nose and ears normal, oral cavity grossly normal NG tube to suction. NECK: JVD not raised; masses not palpable. HEART: Heart sounds are regular; no edema. LUNGS: Respiratory rate normal; clear to auscultation. ABDOMEN: Soft, mild tender, liver spleen not palpable, no masses palpable. PSYCH: Alert and oriented x3; mood and affect anxious l. MUSCULOSKELETAL:No Clubbing/cyanosis;muscles-grossly intact. OA INVESTIGATIONS, reviewed in the clinical context: Small bowel follow-through [September 16] findings consistent with SBO. September 15: White count 11.6 hemoglobin 12.4 platelets 194 sodium 144 potassium 4.6 BUN 35 creatinine 1.61 UA positive for blood. Leukoesterase. WBC clumps. Chest x-ray film personally reviewed by me-nonspecific CT scan abdomen pelvis: Distended gallbladder. No ductal dilatation. Large left adrenal mass likely adenoma. Right hydronephrosis with double-J pigtail urinary catheter in place. Multiple dilated loops of small bowel with a transition point in the pelvis. Diverticulosis of descending and sigmoid colon. EKG tracing personally reviewed by me-atrial fibrillation, rate 146 Previous investigations: 2D echocardiogram April 2023 EF 45 to 50% moderate to severe mitral regurgitation Assessment and plan: -Acute small bowel obstruction, history of 1 day. With nausea vomiting abdominal pain. Transition point in the pelvis.: Slow to respond NG tube to suction continues. General surgery following -Known tortuous colon with a prior history of unsuccessful colonoscopy -Severe colonic diverticulosis -History of vaginal bleeding in a patient with known uterine adenocarcinoma. - radiation treatment 2018. Apparently patient was lost to follow-up. Supposed to follow-up with Dr. Reina at [facility] -Chronic kidney disease stage III likely nephrosclerosis Creatinine 1.6 -Chronic congestive heart failure from diastolic dysfunction EF 55-60 % Follow clinically. -Moderate to severe mitral regurgitation -CAD with a history of stent Patient not taking any medications at home -Persistent atrial fibrillation, rate uncontrolled IV Cardizem drip Cardiology following Not a candidate of anticoagulation because of vaginal bleeding -Choledocholithiasis, asymptomatic -Large left adrenal mass likely adenoma -Moderate cognitive impairment from likely Alzheimer's dementia -Full code Continue NG tube with suction. IV Lisbeth abreu. Past Medical History Past Medical History: Atrial Fibrillation, Cancer, CVA/TIA, GI Bleed, Hyperlipidemia, Myocardial Infarction ([place]) Additional Past Medical History / Comment(s): 07/27/17 FALL'LT HIP FX. 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 History of COVID-19, cervical cancer treated with radiation. No taking Eliquis due to bleeding issues in past. Last Myocardial Infarction Date:: 2009 History of Any Multi-Drug Resistant Organisms: None Reported Past Surgical History: Heart Catheterization, Orthopedic Surgery, Tonsillectomy Additional Past Surgical History / Comment(s): ORIF RT ANKLE HAS PLATE. Past Anesthesia/Blood Transfusion Reactions: No Reported Reaction Past Psychological History: No Psychological Hx Reported Smoking Status: Former smoker, Never smoker Past Alcohol Use History: None Reported Past Drug Use History: None Reported
[2023-09-18 11:34] LABS: African American GFR (CKD) 31 (>60 ml/min/1.73 sqM); Anion Gap 7 mmol/L; Blood Urea Nitrogen 54 mg/dL (7-17); Calcium 8.7 mg/dL (8.4-10.2); Carbon Dioxide 25 mmol/L (22-30); Chloride 115 mmol/L (98-107); Glucose 155 mg/dL (74-99); Non-African American GFR(CKD) 27 (>60 ml/min/1.73 sqM); Potassium 3.6 mmol/L (3.5-5.1); Sodium 147 mmol/L (137-145)
--- NOTE | 2023-09-18 12:13 | P.PN ---
Subjective HISTORY OF PRESENT ILLNESS: This is a 78-year-old female with a past medical history significant for nonischemic cardiomyopathy, CVA, mitral regurgitation, and persistent atrial fibrillation. Patient follows in the office with Dr. Montana. We have been asked to see the patient in consultation for A-fib with RVR. Patient examined at the bedside. Patient initially presented to the hospital with a chief complaint of abdominal pain. She states she has been having abdominal pain for the past 2 to 3 days. She reports having multiple episodes of vomiting. Patient was found to have a small bowel obstruction. Patient has an NG tube in currently to low intermittent suction. She remains NPO. She continues to report abdominal pain at the time of examination. Patient was also found to be in A-fib with RVR. She was started on IV Cardizem which continues to infuse at 10 mg an hour. She is unable to take oral medications secondary to her acute abdominal issues. Patient is not anticoagulated on an outpatient basis due to history of vaginal bleeding per most recent office records from cardiology office. DIAGNOSTICS: - EKG reveals A-fib with RVR. - Chest xray negative for acute process. - Laboratory data: WBC 10.6. Hemoglobin 12.4. Platelet count 194. Sodium 144. Potassium 4.6. BUN 35. Creatinine 1.61. - Current home cardiac medications include none. - Most recent echocardiogram obtained in April 2023 revealed ejection fraction 45 to 50%, moderate pulmonary hypertension, moderate to severe MR, mild AR - Cardiac catheterization history: 2016 revealing normal coronary arteries 09/18/2023 Patient examined this morning at the bedside. Patient continues to be NPO. She has an NG tube to low intermittent suction. Telemetry reveals atrial fibrillation with controlled ventricular rate. She remains on IV Cardizem at 10 mg an hour as patient is unable to take oral medications. Blood pressure stable. PHYSICAL EXAM: VITAL SIGNS: Reviewed. GENERAL: Well-developed in no acute distress. HEENT: Head is normocephalic. Pupils are equal, round. Sclerae anicteric. Mucous membranes of the mouth are moist. Neck supple. No JVD or thyromegaly LUNGS: Respirations even and unlabored. Lungs essentially clear to auscultation bilaterally. HEART: Irregular rate and rhythm. S1 and S2 heard. 3/6 systolic murmur at the apex ABDOMEN: Soft. Tenderness with palpation. NGT noted to low intermittent suction EXTREMITIES: Normal range of motion. No clubbing or cyanosis. Peripheral pulses intact. No lower extremity edema NEUROLOGIC: Awake and alert. Oriented x 3. ASSESSMENT: Abdominal pain Small bowel obstruction Persistent atrial fibrillation with RVR, not anticoagulated on an outpatient basis secondary to significant vaginal bleeding History of nonischemic cardiomyopathy Normal coronary arteries, per cardiac catheterization 2016 Moderate pulmonary hypertension Moderate to severe mitral regurgitation History of CVA PLAN: Continue IV Cardizem while patient is n.p.o. Patient is not anticoagulated on outpatient basis secondary to history of significant vaginal bleeding No need to repeat echocardiogram as this was performed in April 2023 Continue telemetry monitoring Further recommendations pending patient course Nurse practitioner note has been reviewed by physician. Signing provider agrees with the documented findings, assessment, and plan of care documented by BOARD CERTIFIED ARTS THERAPIST as a scribe. Objective - Vital Signs Vital signs: Vital Signs Temp 98.3 F 09/18/23 08:00 Pulse 94 09/18/23 08:00 Resp 18 09/18/23 08:45 BP 127/75 09/18/23 08:00 Pulse Ox 96 09/18/23 08:45 FiO2 Intake & Output 09/17/23 09/18/23 09/18/23 18:59 06:59 18:59 Intake Total 125 118.167 Output Total 950 1100 300 Balance -825 -1100 -181.833 Intake: Intake, IV Titration 125 118.167 Amount Diltiazem 125 mg In 125 118.167 Sodium Chloride 0.9% 100 ml @ Per Protocol IV .Q0M [facility] Rx#:[id number] Output: Gastric Drainage 600 1100 Urine 350 300 Other: Voiding Method Bedside Commode Bedside Commode Bedside Commode # Voids 1 1 - Labs CBC & Chem 7: 09/16/23 05:10 09/18/23 10:37 Labs: Abnormal Lab Results - Last 24 Hours (Table) 09/18/23 Range/Units 10:37 Sodium 147 H (137-145) mmol/L Chloride 115 H (98-107) mmol/L BUN 54 H (7-17) mg/dL Creatinine 1.76 H (0.52-1.04) mg/dL Glucose 155 H (74-99) mg/dL Microbiology - Last 24 Hours (Table) 09/15/23 23:46 Blood Culture - Preliminary Blood 09/15/23 23:31 Blood Culture - Preliminary Blood
--- NOTE | 2023-09-18 14:50 | P.PN ---
Progress Note - Text Progress Note Date: 09/18/23 Chief Complaint: Abdominal pain vomiting This is a pleasant 78,years old female with past medical history of Atrial Fibrillation on Eliquis, CVA/TIA, GI Bleed, Hyperlipidemia, chronic GI bleed Attempted colonoscopy in 2021 showed a tortuous colon. Has known uterine adenocarcinoma. Received radiation treatment 2018. Then was lost to follow-up. Also supposed to followed up with radiation treatment at [facility]. Also had right-sided hydronephrosis in the past with right-sided ureteral stent. Patient now presents 1 day history of nausea vomiting abdominal pain. Patient not a good historian. Forgetful. She also had a history of uterine adenocarcinoma. Unclear who she followed up in the recent past. Found to have small bowel obstruction in the ER. NG tube to suction was placed. Was in A-fib with rapid ventricular rate. Tired. To be noted patient does not take any medications at home. September 16: NG tube remains to suction. No flatus. Decreased abdominal pain. No nausea vomiting. A-fib remains uncontrolled. Remains on IV Cardizem drip. NPO. Because of significant vaginal bleeding patient was not anticoagulated. Small bowel follow-through shows findings consistent with SBO. September 17: NG tube to suction remains in place. Has not passed any flatus. Abdomen is soft. Patient recently had a burn to the left thigh from hot tea. Dressing in place. Remains on IV fluids IV Cardizem drip. Atrial fibrillation rate controlled. Active Medications Sodium Chloride (Saline 0.9%) 1,000 mls @ 130 mls/hr IV .Q7H42M [facility] Last Admin: 09/18/23 12:08 Dose: 130 mls/hr Diltiazem HCl 125 mg/ Sodium (Chloride) 125 mls @ 0 mls/hr IV .Q0M [facility]; Protocol Last Admin: 09/18/23 09:40 Dose: 10 mg/hr, 10 mls/hr Naloxone HCl (Naloxone 0.4 Mg/Ml 1 Ml Vial) 0.2 mg IV Q2M PRN PRN Reason: Opioid Reversal Ondansetron HCl (Ondansetron 4 Mg/2 Ml Vial) 4 mg IVP Q6HR PRN PRN Reason: Nausea And Vomiting Social history: Lives at [facility].. Does use a motorized chair. Gets Meals on Wheels. Started smoking at the age of 13 stopped in 2011. 1 pack a day. No alcohol. Physical examination: VITAL SIGNS: 98.3, 94, 18, 131 x 82, 88% on 3 L GENERAL: Laying in bed, tired EYES: Pupils equal. Conjunctiva mina l. HEENT: External appearance of nose and ears normal, oral cavity grossly normal NG tube to suction. NECK: JVD not raised; masses not palpable. HEART: Heart sounds are regular; no edema. LUNGS: Respiratory rate normal; clear to auscultation. ABDOMEN: Soft, mild tender, liver spleen not palpable, no masses palpable. PSYCH: Alert and oriented x3; mood and affect anxious l. MUSCULOSKELETAL:No Clubbing/cyanosis;muscles-grossly intact. OA INVESTIGATIONS, reviewed in the clinical context: September 17: Sodium 147 potassium 3.6 BUN 54 creatinine 1.76 Small bowel follow-through [September 16] findings consistent with SBO. September 15: White count 11.6 hemoglobin 12.4 platelets 194 sodium 144 potassium 4.6 BUN 35 creatinine 1.61 UA positive for blood. Leukoesterase. WBC clumps. Chest x-ray film personally reviewed by me-nonspecific CT scan abdomen pelvis: Distended gallbladder. No ductal dilatation. Large left adrenal mass likely adenoma. Right hydronephrosis with double-J pigtail urinary catheter in place. Multiple dilated loops of small bowel with a transition point in the pelvis. Diverticulosis of descending and sigmoid colon. EKG tracing personally reviewed by me-atrial fibrillation, rate 146 Previous investigations: 2D echocardiogram April 2023 EF 45 to 50% moderate to severe mitral regurgitation Assessment and plan: -Acute small bowel obstruction, history of 1 day. With nausea vomiting abdominal pain. Transition point in the pelvis.: Slow to respond NG tube to suction continues. General surgery following -Known tortuous colon with a prior history of unsuccessful colonoscopy -Left anterior thigh burn secondary to hot coffee. Dressing in place. Local care -Severe colonic diverticulosis -History of vaginal bleeding in a patient with known uterine adenocarcinoma. - radiation treatment 2018. Apparently patient was lost to follow-up. Supposed to follow-up with Dr. Reina at [facility] -Chronic kidney disease stage III likely nephrosclerosis Creatinine 1.6 -Chronic congestive heart failure from diastolic dysfunction EF 55-60 % Follow clinically. -Moderate to severe mitral regurgitation -CAD with a history of stent Patient not taking any medications at home -Persistent atrial fibrillation, rate uncontrolled IV Cardizem drip Cardiology following Not a candidate of anticoagulation because of vaginal bleeding -Choledocholithiasis, asymptomatic -Large left adrenal mass likely adenoma -Moderate cognitive impairment from likely Alzheimer's dementia -Full code Continue NG tube with suction. IV Cardizem drip. Continue with IV fluids. Past Medical History Past Medical History: Atrial Fibrillation, Cancer, CVA/TIA, GI Bleed, Hyperlipidemia, Myocardial Infarction ([place]) Additional Past Medical History / Comment(s): 07/27/17 FALL'LT HIP FX. 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 History of COVID-19, cervical cancer treated with radiation. No taking Eliquis due to bleeding issues in past. Last Myocardial Infarction Date:: 2009 History of Any Multi-Drug Resistant Organisms: None Reported Past Surgical History: Heart Catheterization, Orthopedic Surgery, Tonsillectomy Additional Past Surgical History / Comment(s): ORIF RT ANKLE HAS PLATE. Past Anesthesia/Blood Transfusion Reactions: No Reported Reaction Past Psychological History: No Psychological Hx Reported Smoking Status: Former smoker, Never smoker Past Alcohol Use History: None Reported Past Drug Use History: None Reported
--- NOTE | 2023-09-18 18:26 | P.PN ---
Subjective Patient seen and evaluated at bedside. Denies abdominal pain, ngt still producing feculent output. Objective - Vital Signs Vital signs: Vital Signs Temp 98.3 F 09/18/23 08:00 Pulse 110 H 09/18/23 16:00 Resp 18 09/18/23 16:00 BP 131/75 09/18/23 16:00 Pulse Ox 91 L 09/18/23 16:00 FiO2 Intake & Output 09/17/23 09/18/23 09/18/23 18:59 06:59 18:59 Intake Total 125 118.167 Output Total 950 1100 475 Balance -825 -1100 -356.833 Intake: Intake, IV Titration 125 118.167 Amount Diltiazem 125 mg In 125 118.167 Sodium Chloride 0.9% 100 ml @ Per Protocol IV .Q0M [facility] Rx#:[id number] Output: Gastric Drainage 600 1100 Urine 350 475 Other: Voiding Method Bedside Commode Bedside Commode Bedside Commode # Voids 1 1 - Exam gen: nad cv: rrr pul: non labored breathing abd: soft, non tender, mild distention, no guarding or rebound tenderness - Labs CBC & Chem 7: 09/16/23 05:10 09/18/23 10:37 Labs: Abnormal Lab Results - Last 24 Hours (Table) 09/18/23 Range/Units 10:37 Sodium 147 H (137-145) mmol/L Chloride 115 H (98-107) mmol/L BUN 54 H (7-17) mg/dL Creatinine 1.76 H (0.52-1.04) mg/dL Glucose 155 H (74-99) mg/dL Microbiology - Last 24 Hours (Table) 09/15/23 23:46 Blood Culture - Preliminary Blood 09/15/23 23:31 Blood Culture - Preliminary Blood Assessment and Plan Assessment: 1. Small bowel obstruction with transition point noted in the pelvis per CT. 2. A-fib RVR 3. History of endometrial cancer 4. Hyperkalemia corrected 5. Chronic kidney disease 6. History of nonischemic cardiomyopathy PLAN: -Continue NG tube for decompression -Keep patient n.p.o. except for ice chips and popsicles -Continue IV fluids -IV Tylenol PRN added for pain control -Zofran PRN added for nausea Time with Patient: Greater than 30
--- NOTE | 2023-09-19 10:18 | P.PN ---
Subjective HISTORY OF PRESENT ILLNESS: This is a 78-year-old female with a past medical history significant for nonischemic cardiomyopathy, CVA, mitral regurgitation, and persistent atrial fibrillation. Patient follows in the office with Dr. [place]. We have been asked to see the patient in consultation for A-fib with RVR. Patient examined at the bedside. Patient initially presented to the hospital with a chief complaint of abdominal pain. She states she has been having abdominal pain for the past 2 to 3 days. She reports having multiple episodes of vomiting. Patient was found to have a small bowel obstruction. Patient has an NG tube in currently to low intermittent suction. She remains NPO. She continues to report abdominal pain at the time of examination. Patient was also found to be in A-fib with RVR. She was started on IV Cardizem which continues to infuse at 10 mg an hour. She is unable to take oral medications secondary to her acute abdominal issues. Patient is not anticoagulated on an outpatient basis due to history of vaginal bleeding per most recent office records from cardiology office. DIAGNOSTICS: - EKG reveals A-fib with RVR. - Chest xray negative for acute process. - Laboratory data: WBC 10.6. Hemoglobin 12.4. Platelet count 194. Sodium 144. Potassium 4.6. BUN 35. Creatinine 1.61. - Current home cardiac medications include none. - Most recent echocardiogram obtained in April 2023 revealed ejection fraction 45 to 50%, moderate pulmonary hypertension, moderate to severe MR, mild AR - Cardiac catheterization history: 2016 revealing normal coronary arteries 09/18/2023 Patient examined this morning at the bedside. Patient continues to be NPO. She has an NG tube to low intermittent suction. Telemetry reveals atrial fibrillation with controlled ventricular rate. She remains on IV Cardizem at 10 mg an hour as patient is unable to take oral medications. Blood pressure stable. 09/19/2023 Patient examined this morning at the bedside. Patient continues to be NPO. She has an NG tube to low intermittent suction. Telemetry reveals atrial fibrillation with controlled ventricular rate. She remains on IV Cardizem at 10 mg an hour as patient is unable to take oral medications. Blood pressure s table. PHYSICAL EXAM: VITAL SIGNS: Reviewed. GENERAL: Well-developed in no acute distress. HEENT: Head is normocephalic. Pupils are equal, round. Sclerae anicteric. Mucous membranes of the mouth are moist. Neck supple. No JVD or thyromegaly LUNGS: Respirations even and unlabored. Lungs essentially clear to auscultation bilaterally. HEART: Irregular rate and rhythm. S1 and S2 heard. 3/6 systolic murmur at the apex ABDOMEN: Soft. Tenderness with palpation. NGT noted to low intermittent suct ion EXTREMITIES: Normal range of motion. No clubbing or cyanosis. Peripheral pulses intact. No lower extremity edema NEUROLOGIC: Awake and alert. Oriented x 3. ASSESSMENT: Abdominal pain Small bowel obstruction Persistent atrial fibrillation with RVR, not anticoagulated on an outpatient basis secondary to significant vaginal bleeding History of nonischemic cardiomyopathy Normal coronary arteries, per cardiac catheterization 2016 Moderate pulmonary hypertension Moderate to severe mitral regurgitation History of CVA PLAN: Continue IV Cardizem while patient is n.p.o. Patient is not anticoagulated on outpatient basis secondary to history of significant vaginal bleeding No need to repeat echocardiogram as this was performed in April 2023 Continue telemetry monitoring Further recommendations pending patient course Nurse practitioner note has been reviewed by physician. Signing provider agrees with the documented findings, assessment, and plan of care documented by CORRAL BOSS as a scribe. Objective - Vital Signs Vital signs: Vital Signs Temp 98.2 F 09/19/23 04:00 Pulse 99 09/19/23 04:00 Resp 16 09/19/23 04:00 BP 139/81 09/19/23 04:00 Pulse Ox 93 L 09/19/23 04:00 FiO2 Intake & Output 09/18/23 09/19/23 09/19/23 18:59 06:59 18:59 Intake Total 118.167 106.167 111.667 Output Total 1175 1500 Balance -1056.833 -1393.833 111.667 Intake: Intake, IV Titration 118.167 106.167 111.667 Amount Diltiazem 125 mg In 118.167 106.167 111.667 Sodium Chloride 0.9% 100 ml @ Per Protocol IV .Q0M [facility] Rx#:[id number] Output: Gastric Drainage 700 1200 Urine 475 300 Other: Voiding Method Bedside Commode Bedside Commode - Labs CBC & Chem 7: 09/16/23 05:10 09/18/23 10:37 Labs: Abnormal Lab Results - Last 24 Hours (Table) 09/18/23 Range/Units 10:37 Sodium 147 H (137-145) mmol/L Chloride 115 H (98-107) mmol/L BUN 54 H (7-17) mg/dL Creatinine 1.76 H (0.52-1.04) mg/dL Glucose 155 H (74-99) mg/dL Microbiology - Last 24 Hours (Table) 09/15/23 23:46 Blood Culture - Preliminary Blood 09/15/23 23:31 Blood Culture - Preliminary Blood
--- NOTE | 2023-09-19 12:05 | P.PN ---
Progress Note - Text Progress Note Date: 09/19/23 Chief Complaint: Abdominal pain vomiting This is a pleasant 78,years old female with past medical history of Atrial Fibrillation on Eliquis, CVA/TIA, GI Bleed, Hyperlipidemia, chronic GI bleed Attempted colonoscopy in 2021 showed a tortuous colon. Has known uterine adenocarcinoma. Received radiation treatment 2018. Then was lost to follow-up. Also supposed to followed up with radiation treatment at [facility]. Also had right-sided hydronephrosis in the past with right-sided ureteral stent. Patient now presents 1 day history of nausea vomiting abdominal pain. Patient not a good historian. Forgetful. She also had a history of uterine adenocarcinoma. Unclear who she followed up in the recent past. Found to have small bowel obstruction in the ER. NG tube to suction was placed. Was in A-fib with rapid ventricular rate. Tired. To be noted patient does not take any medications at home. September 16: NG tube remains to suction. No flatus. Decreased abdominal pain. No nausea vomiting. A-fib remains uncontrolled. Remains on IV Cardizem drip. NPO. Because of significant vaginal bleeding patient was not anticoagulated. Small bowel follow-through shows findings consistent with SBO. September 17: NG tube to suction remains in place. Has not passed any flatus. Abdomen is soft. Patient recently had a burn to the left thigh from hot tea. Dressing in place. Remains on IV fluids IV Cardizem drip. Atrial fibrillation rate controlled. September 18: NG tube remains to suction. No abdominal pain. On ice chips and popsicles. Continues to have significant NG tube output. Active Medications Sodium Chloride (Saline 0.9%) 1,000 mls @ 130 mls/hr IV .Q7H42M [facility] Last Admin: 09/19/23 03:41 Dose: 130 mls/hr Diltiazem HCl 125 mg/ Sodium (Chloride) 125 mls @ 0 mls/hr IV .Q0M [facility]; Protocol Last Admin: 09/19/23 08:42 Dose: 10 mg/hr, 10 mls/hr Naloxone HCl (Naloxone 0.4 Mg/Ml 1 Ml Vial) 0.2 mg IV Q2M PRN PRN Reason: Opioid Reversal Ondansetron HCl (Ondansetron 4 Mg/2 Ml Vial) 4 mg IVP Q6HR PRN PRN Reason: Nausea And Vomiting Social history: Lives at [facility].. Does use a motorized chair. Gets Meals on Wheels. Started smoking at the age of 13 stopped in 2011. 1 pack a day. No alcohol. Physical examination: VITAL SIGNS: 98.2, 120, 18, 157/82, 92% on 4 L GENERAL: Sitting at the edge of the bed, EYES: Pupils equal. Conjunctiva mina l. HEENT: External appearance of nose and ears normal, oral cavity grossly normal NG tube to suction. NECK: JVD not raised; masses not palpable. HEART: Heart sounds are regular; no edema. LUNGS: Respiratory rate normal; clear to auscultation. ABDOMEN: Soft, non-tender, liver spleen not palpable, no masses palpable. PSYCH: Alert and oriented x3; mood and affect anxious l. MUSCULOSKELETAL:No Clubbing/cyanosis;muscles-grossly intact. OA INVESTIGATIONS, reviewed in the clinical context: September 17: Sodium 147 potassium 3.6 BUN 54 creatinine 1.76 Small bowel follow-through [September 16] findings consistent with SBO. September 15: White count 11.6 hemoglobin 12.4 platelets 194 sodium 144 potassium 4.6 BUN 35 creatinine 1.61 UA positive for blood. Leukoesterase. WBC clumps. Chest x-ray film personally reviewed by me-nonspecific CT scan abdomen pelvis: Distended gallbladder. No ductal dilatation. Large left adrenal mass likely adenoma. Right hydronephrosis with double-J pigtail urinary catheter in place. Multiple dilated loops of small bowel with a transition point in the pelvis. Diverticulosis of descending and sigmoid colon. EKG tracing personally reviewed by me-atrial fibrillation, rate 146 Previous investigations: 2D echocardiogram April 2023 EF 45 to 50% moderate to severe mitral regurgitation Assessment and plan: -Acute small bowel obstruction, history of 1 day. With nausea vomiting ab dominal pain. Transition point in the pelvis.: Slow to respond NG tube to suction continues. General surgery following Repeat abdominal x-ray in the morning -Known tortuous colon with a prior history of unsuccessful colonoscopy -Left anterior thigh burn secondary to hot coffee. Dressing in place. Local care -Severe colonic diverticulosis -History of vaginal bleeding in a patient with known uterine adenocarcinoma. - radiation treatment 2018. Apparently patient was lost to follow-up. Supposed to follow-up with Dr. Reina at [facility] -Chronic kidney disease stage III likely nephrosclerosis Creatinine 1.6 -Chronic congestive heart failure from diastolic dysfunction EF 55-60 % Follow clinically. -Moderate to severe mitral regurgitation -CAD with a history of stent Patient not taking any medications at home -Persistent atrial fibrillation, rate uncontrolled IV Cardizem drip Cardiology following Not a candidate of anticoagulation because of vaginal bleeding -Choledocholithiasis, asymptomatic -Large left adrenal mass likely adenoma -Moderate cognitive impairment from likely Alzheimer's dementia -Full code Continue NG tube with suction. IV Cardizem drip. Continue with IV fluids. Repeat x-ray in the morning Past Medical History Past Medical History: Atrial Fibrillation, Cancer, CVA/TIA, GI Bleed, Hyperlipidemia, Myocardial Infarction ([place]) Additional Past Medical History / Comment(s): 07/27/17 FALL'LT HIP FX. OTHER HX"BOARDERLINE DIABETIC- NO MEDS BUT CHECKS BS ONCE A DAY,CVA/TIA 2011 NO RESIDU AL EEFECTS, RT ANKLE BROKEN-(SX DONE HAD PLATE), PAST STRESS TEST. History of COVID-19, cervical cancer treated with radiation. No taking Eliquis due to bleeding issues in past. Last Myocardial Infarction Date:: 2009 History of Any Multi-Drug Resistant Organisms: None Reported Past Surgical History: Heart Catheterization, Orthopedic Surgery, Tonsillectomy Additional Past Surgical History / Comment(s): ORIF RT ANKLE HAS PLATE. Past Anesthesia/Blood Transfusion Reactions: No Reported Reaction Past Psychological History: No Psychological Hx Reported Smoking Status: Former smoker, Never smoker Past Alcohol Use History: None Reported Past Drug Use History: None Reported
--- NOTE | 2023-09-19 12:28 | P.PN ---
Subjective Progress Note Date: 09/19/23 Principal diagnosis: Small bowel obstruction Patient denies pain. No flatus or bowel movement either. Nasogastric tube remains in place. Objective - Vital Signs Vital signs: Vital Signs Temp 98.2 F 09/19/23 08:00 Pulse 122 H 09/19/23 08:00 Resp 18 09/19/23 08:00 BP 157/82 09/19/23 08:00 Pulse Ox 92 L 09/19/23 08:00 FiO2 Intake & Output 09/18/23 09/19/23 09/19/23 18:59 06:59 18:59 Intake Total 118.167 106.167 111.667 Output Total 1175 1500 700 Balance -1056.833 -1393.833 -588.333 Intake: Intake, IV Titration 118.167 106.167 111.667 Amount Diltiazem 125 mg In 118.167 106.167 111.667 Sodium Chloride 0.9% 100 ml @ Per Protocol IV .Q0M [facility] Rx#:[id number] Output: Gastric Drainage 700 1200 Urine 475 300 700 Other: Voiding Method Bedside Commode Bedside Commode Bedside Commode - Exam Abdomen: Soft, mild distention, nontender - Labs CBC & Chem 7: 09/16/23 05:10 09/18/23 10:37 Labs: Microbiology - Last 24 Hours (Table) 09/15/23 23:46 Blood Culture - Preliminary Blood 09/15/23 23:31 Blood Culture - Preliminary Blood Assessment and Plan (1) Small bowel obstruction Narrative/Plan: 78-year-old female with small bowel obstruction. X-rays performed Wednesday state contrast in the colon. No bowel function however yet. Will repeat abdominal x- rays tomorrow. Continue nasogastric tube to suction. Current Visit: Yes Status: Acute Code(s): K56.609 - UNSP INTESTNL OBST, UNSP TO PARTIAL VERSUS COMPLETE OBST SNOMED Code(s): 034229274
--- NOTE | 2023-09-20 09:27 | XR ---
EXAMINATION TYPE: XR abdomen 2V DATE OF EXAM: 09/20/2023 6:01 AM CLINICAL INDICATION:Female, 78 years old with history of Follow-up SBO; COMPARISON: 09/17/2023. TECHNIQUE: Two views of the abdomen were obtained. FINDINGS: Dilated loops of bowel to 8.2 cm in the right lower quadrant some with fluid, gas may be mi ldly increased from prior on 09/17/2023. Left hip arthroplasty appears intact. Right ureteral stent wit h superior and inferior pigtails in appropriate position. IMPRESSION: 1. Similar findings of suspected small bowel obstruction. Dilation may be mildly increased in the ri ght lower quadrant compared to prior. 2. Nasogastric tube terminating in the esophagus is at least 19 cm for optimal placement recommended .
[2023-09-20 09:54] LABS: African American GFR (CKD) 47 (>60 ml/min/1.73 sqM); Anion Gap 10 mmol/L; Blood Urea Nitrogen 40 mg/dL (7-17); Calcium 8.6 mg/dL (8.4-10.2); Carbon Dioxide 23 mmol/L (22-30); Chloride 115 mmol/L (98-107); Glucose 175 mg/dL (74-99); Non-African American GFR(CKD) 41 (>60 ml/min/1.73 sqM); Potassium 3.3 mmol/L (3.5-5.1); Sodium 148 mmol/L (137-145)
[2023-09-20] MEDS: SODIUM CHLORIDE 0.9% 1,000 ML IV SCH (13:47)
--- NOTE | 2023-09-20 13:52 | XR ---
EXAMINATION TYPE: XR chest 1V portable DATE OF EXAM: 09/20/2023 COMPARISON: 09/16/2023 INDICATION: Short of breath TECHNIQUE: Single frontal view of the chest is obtained. FINDINGS: The heart size is prominent. The pulmonary vasculature is prominent. Diffuse increased lung markings are present bilaterally. Findings are worsening over the interval. Nasogastric tube is present. The tip is just below the level of the leanna. This needs to be advanced at least 17 cm for more typical positioning IMPRESSION: 1. Clinical consideration for worsening congestive heart failure. 2. Nasogastric tube within the distal esophagus. Please see above
[2023-09-20] MEDS: FUROSEMIDE 10 MG/ML 4 ML VIAL IV STA (14:02)
--- NOTE | 2023-09-20 15:07 | P.PN ---
Subjective Progress Note Date: 09/20/23 HISTORY OF PRESENT ILLNESS: This is a 78-year-old female with a past medical history significant for no nischemic cardiomyopathy, CVA, mitral regurgitation, and persistent atrial fibrillation. Patient follows in the office with Dr. [place]. We have been asked to see the patient in consultation for A-fib with RVR. Patient examined at the bedside. Patient initially presented to the hospital with a chief complaint of abdominal pain. She states she has been having abdominal pain for the past 2 to 3 days. She reports having multiple episodes of vomiting. Patient was found to have a small bowel obstruction. Patient has an NG tube in currently to low intermittent suction. She remains NPO. She continues to report abdominal pain at the time of examination. Patient was also found to be in A-fib with RVR. She was started on IV Cardizem which continues to infuse at 10 mg an hour. She is unable to take oral medications secondary to her acute abdominal issues. Patient is not anticoagulated on an outpatient basis due to history of vaginal bleeding per most recent office records from cardiology office. DIAGNOSTICS: - EKG reveals A-fib with RVR. - Chest xray negative for acute process. - Laboratory data: WBC 10.6. Hemoglobin 12.4. Platelet count 194. Sodium 144. Potassium 4.6. BUN 35. Creatinine 1.61. - Current home cardiac medications include none. - Most recent echocardiogram obtained in April 2023 revealed ejection fraction 45 to 50%, moderate pulmonary hypertension, moderate to severe MR, mild AR - Cardiac catheterization history: 2016 revealing normal coronary arteries 09/18/2023 Patient examined this morning at the bedside. Patient continues to be NPO. She has an NG tube to low intermittent suction. Telemetry reveals atrial fibrillation with controlled ventricular rate. She remains on IV Cardizem at 10 mg an hour as patient is unable to take oral medications. Blood pressure stable. 09/19/2023 Patient examined this morning at the bedside. Patient continues to be NPO. She has an NG tube to low intermittent suction. Telemetry reveals atrial fibrillation with controlled ventricular rate. She remains on IV Cardizem at 10 mg an hour as patient is unable to take oral medications. Blood pressure stable. 09/19 Patient has been maintained on Cardizem drip for rate control on persistent atrial fibrillation due to n.p.o. status. NG tube remains in place. Blood pressure is 147/95 and heart rate 117. Pulse ox 90% on 5 L nasal cannula. Repeat blood work reveals sodium 148, potassium 3.3, BUN 40 and creatinine 1.25. No medication changes made today. PHYSICAL EXAM: VITAL SIGNS: Reviewed. GENERAL: Well-developed in no acute distress. HEENT: Head is normocephalic. Pupils are equal, round. Sclerae anicteric. Mucous membranes of the mouth are moist. Neck supple. No JVD or thyromegaly LUNGS: Respirations even and unlabored. Lungs essentially clear to auscultation bilaterally. HEART: Irregular rate and rhythm. S1 and S2 heard. 3/6 systolic murmur at the apex ABDOMEN: Soft. Tenderness with palpation. NGT noted to low intermittent suction EXTREMITIES: Normal range of motion. No clubbing or cyanosis. Peripheral pulses intact. No lower extremity edema NEUROLOGIC: Awake and alert. Oriented x 3. ASSESSMENT: Abdominal pain Small bowel obstruction Persistent atrial fibrillation with RVR, not anticoagulated on an outpatient basis secondary to significant vaginal bleeding History of nonischemic cardiomyopathy Normal coronary arteries, per cardiac catheterization 2016 Moderate pulmonary hypertension Moderate to severe mitral regurgitation History of CVA Acute kidney injury PLAN: Continue IV Cardizem while patient is n.p.o. Patient is not anticoagulated on outpatient basis secondary to history of significant vaginal bleeding No need to repeat echocardiogram as this was performed in April 2023 Continue telemetry monitoring Further recommendations pending patient course Nurse practitioner note has been reviewed by physician. Signing provider agrees with the documented findings, assessment, and plan of care documented by [employer] as a scribe. Objective - Vital Signs Vital signs: Vital Signs Temp 98.1 F 09/20/23 12:08 Pulse 117 H 09/20/23 12:08 Resp 23 09/20/23 12:08 BP 147/95 09/20/23 12:08 Pulse Ox 90 L 09/20/23 12:08 FiO2 Intake & Output 09/19/23 09/20/23 09/20/23 18:59 06:59 18:59 Intake Total 111.667 117.833 125 Output Total 1100 200 Balance -988.333 -82.167 125 Weight 90.718 kg Intake: Intake, IV Titration 111.667 117.833 125 Amount Diltiazem 125 mg In 111.667 117.833 125 Sodium Chloride 0.9% 100 ml @ Per Protocol IV .Q0M [facility] Rx#:[id number] Output: Urine 1100 200 Other: Voiding Method Bedside Commode Bedside Commode Bedside Commode # Voids 3 - Labs CBC & Chem 7: 09/16/23 05:10 09/20/23 08:55 Labs: Abnormal Lab Results - Last 24 Hours (Table) 09/20/23 Range/Units 08:55 Sodium 148 H (137-145) mmol/L Potassium 3.3 L (3.5-5.1) mmol/L Chloride 115 H (98-107) mmol/L BUN 40 H (7-17) mg/dL Creatinine 1.25 H (0.52-1.04) mg/dL Glucose 175 H (74-99) mg/dL Microbiology - Last 24 Hours (Table) 09/15/23 23:46 Blood Culture - Preliminary Blood 09/15/23 23:31 Blood Culture - Preliminary Blood
--- NOTE | 2023-09-20 16:13 | P.PN ---
Subjective Progress Note Date: 09/20/23 CHIEF COMPLAINT: Abdominal pain HISTORY OF PRESENT ILLNESS: Surgical service following in regards to patient's small bowel obstruction. Patient denies any abdominal pain denies any nausea or vomiting. Denies any flatus or bowel movements. NG tube with about 100 mL output clearish output. Abdominal x-ray reporting similar findings of suspected small bowel obstruction. Dilation may be mildly increased. NG tube in esophagus. IV fluids decreased by medicine service and received a dose of Lasix for fluid overload. NG tube output 500 PHYSICAL EXAM: VITAL SIGNS: Reviewed GENERAL: Well-developed in no acute distress. HEENT: No sclera icterus. Extraocular movements grossly intact. Moist buccal mucosa. Head is atraumatic, normocephalic. Hears conversational speech. No nasal drainage. NECK: Supple without lymphadenopathy. CHEST: Non-labored respirations and equal bilateral excursions. CARDIOVASCULAR: Palpable 2+ radial pulses. ABDOMEN: Soft. Nondistended. Nontender MUSCULOSKELETAL: No clubbing or cyanosis. NEUROLOGIC: No focal or lateralizing signs. Cranial nerves II through XII grossly intact. PSYCH: Appropriate affect. Awake and alert. Able to answer some questions. SKIN: Well perfused. Good skin turgor. ASSESSMENT: 1. Small bowel obstruction with transition point noted in the pelvis per CT. 2. A-fib RVR 3. History of endometrial cancer 4. Hyperkalemia corrected 5. Chronic kidney disease 6. History of nonischemic cardiomyopathy PLAN: -Advance NG tube. Repeat chest x-ray after advancement -Keep patient n.p.o. except for ice chips and popsicles -Continue NG tube for decompression -Continue IV fluids Physician Alternative Energy Technician note has been reviewed by physician. Signing provider agrees with the documented findings, assessment, and plan of care. Objective - Vital Signs Vital signs: Vital Signs Temp 98.1 F 09/20/23 12:08 Pulse 117 H 09/20/23 12:08 Resp 23 09/20/23 12:08 BP 147/95 09/20/23 12:08 Pulse Ox 90 L 09/20/23 12:08 FiO2 Intake & Output 09/19/23 09/20/23 09/20/23 18:59 06:59 18:59 Intake Total 111.667 117.833 125 Output Total 1100 200 Balance -988.333 -82.167 125 Weight 90.718 kg Intake: Intake, IV Titration 111.667 117.833 125 Amount Diltiazem 125 mg In 111.667 117.833 125 Sodium Chloride 0.9% 100 ml @ Per Protocol IV .Q0M [facility] Rx#:[id number] Output: Urine 1100 200 Other: Voiding Method Bedside Commode Bedside Commode Bedside Commode # Voids 3 - Labs CBC & Chem 7: 09/16/23 05:10 09/20/23 08:55 Labs: Abnormal Lab Results - Last 24 Hours (Table) 09/20/23 Range/Units 08:55 Sodium 148 H (137-145) mmol/L Potassium 3.3 L (3.5-5.1) mmol/L Chloride 115 H (98-107) mmol/L BUN 40 H (7-17) mg/dL Creatinine 1.25 H (0.52-1.04) mg/dL Glucose 175 H (74-99) mg/dL Microbiology - Last 24 Hours (Table) 09/15/23 23:46 Blood Culture - Preliminary Blood 09/15/23 23:31 Blood Culture - Preliminary Blood
--- NOTE | 2023-09-20 17:26 | XR ---
EXAMINATION TYPE: XR chest 1V portable DATE OF EXAM: 09/20/2023 4:48 PM CLINICAL INDICATION:Female, 78 years old with history of NG tube placement; [facility] COMPARISON: Chest radiographs from 09/20/2023. TECHNIQUE: XR chest 1V portable Frontal view of the chest. FINDINGS: Lungs/Pleura: Scattered multifocal airspace opacities. Prominent interstitial lung markings are seen scattered throughout the lungs. No evidence of focal consolidation, pneumothorax or pleural effusion. Pulmonary vascularity: Unremarkable. Heart/mediastinum: Cardiomediastinal silhouette is enlarged and stable. Musculoskeletal: No acute osseous pathology. Other findings: None Lines/Tubes: Nasogastric tube with its distal tip and side-port projecting under the diaphragm and projecting over the gastric lumen. IMPRESSION: 1. Nasogastric tube now in appropriate position. 2. Increased left lateral airspace opacities in slightly improved right basilar airspace opacities..
--- NOTE | 2023-09-20 18:58 | P.PN ---
Progress Note - Text Progress Note Date: 09/20/23 Chief Complaint: Abdominal pain vomiting This is a pleasant 78,years old female with past medical history of Atrial Fibrillation on Eliquis, CVA/TIA, GI Bleed, Hyperlipidemia, chronic GI bleed Attempted colonoscopy in 2021 showed a tortuous colon. Has known uterine adenocarcinoma. Received radiation treatment 2018. Then was lost to follow-up. Also supposed to followed up with radiation treatment at [facility]. Also had right-sided hydronephrosis in the past with right-sided ureteral stent. Patient now presents 1 day history of nausea vomiting abdominal pain. Patient not a good historian. Forgetful. She also had a history of uterine adenocarcinoma. Unclear who she followed up in the recent past. Found to have small bowel obstruction in the ER. NG tube to suction was placed. Was in A-fib with rapid ventricular rate. Tired. To be noted patient does not take any medications at home. September 16: NG tube remains to suction. No flatus. Decreased abdominal pain. No nausea vomiting. A-fib remains uncontrolled. Remains on IV Cardizem drip. NPO. Because of significant vaginal bleeding patient was not anticoagulated. Small bowel follow-through shows findings consistent with SBO. September 17: NG tube to suction remains in place. Has not passed any flatus. Abdomen is soft. Patient recently had a burn to the left thigh from hot tea. Dressing in place. Remains on IV fluids IV Cardizem drip. Atrial fibrillation rate controlled. September 18: NG tube remains to suction. No abdominal pain. On ice chips and popsicles. Continues to have significant NG tube output. September 19: Patient bit short of breath this morning. Crackles on examination. IV Lasix 40 mg given. Scattered infiltrate. Possible aspiration pneumonia. Some malpositioning of the NG tube on the x-ray. Readjusted per surgery. A-fib remains uncontrolled. Remains on IV Cardizem drip. NG tube remains to suction. No flatus. X-ray shows dilated loops of bowel. Mildly increased. Active Medications Diltiazem HCl 125 mg/ Sodium (Chloride) 125 mls @ 0 mls/hr IV .Q0M [facility]; Protocol Last Admin: 09/20/23 09:39 Dose: 10 mg/hr, 10 mls/hr Sodium Chloride (Saline 0.9%) 1,000 mls @ 50 mls/hr IV .Q20H [facility] Last Admin: 09/20/23 13:47 Dose: Not Given Piperacillin Sod/Tazobactam (Sod 3.375 gm/ Sodium Chloride) 100 mls @ 25 mls/hr IVPB Q8HR [facility]; Protocol Naloxone HCl (Naloxone 0.4 Mg/Ml 1 Ml Vial) 0.2 mg IV Q2M PRN PRN Reason: Opioid Reversal Ondansetron HCl (Ondansetron 4 Mg/2 Ml Vial) 4 mg IVP Q6HR PRN PRN Reason: Nausea And Vomiting Social history: Lives at [facility].. Does use a motorized chair. Gets Meals [employer] Whe[employer]. Started smoking at the age of 13 stopped in 2011. 1 pack a day. No alcohol. Physical examination: VITAL SIGNS: 98.1, 117, 23, 147 x 95, 90% on 5 L GENERAL: Reclining in bed, a bit short of breath EYES: Pupils equal. Conjunctiva mina l. HEENT: External appearance of nose and ears normal, oral cavity grossly normal NG tube to suction. NECK: JVD not raised; masses not palpable. HEART: Heart sounds are regular; no edema. LUNGS: Respiratory rate increased, basal crackles ABDOMEN: Soft, non-tender, liver spleen not palpable, no masses palpable. PSYCH: Alert and oriented x3; mood and affect anxious l. MUSCULOSKELETAL:No Clubbing/cyanosis;muscles-grossly intact. OA INVESTIGATIONS, reviewed in the clinical context: September 17: Sodium 147 potassium 3.6 BUN 54 creatinine 1.76 Small bowel follow-through [September 16] findings consistent with SBO. September 15: White count 11.6 hemoglobin 12.4 platelets 194 sodium 144 potassium 4.6 BUN 35 creatinine 1.61 UA positive for blood. Leukoesterase. WBC clumps. Chest x-ray film personally reviewed by me-nonspecific CT scan abdomen pelvis: Distended gallbladder. No ductal dilatation. Large left adrenal mass likely adenoma. Right hydronephrosis with double-J pigtail urinary catheter in place. Multiple dilated loops of small bowel with a transition point in the pelvis. Diverticulosis of descending and sigmoid colon. EKG tracing personally reviewed by me-atrial fibrillation, rate 146 Previous investigations: 2D echocardiogram April 2023 EF 45 to 50% moderate to severe mitral regurgitation Assessment and plan: -Acute small bowel obstruction, history of 1 day. With nausea vomiting abdominal pain. Transition point in the pelvis.: Slow to respond NG tube to suction continues. With repositioning General surgery following -Aspiration pneumonia: New diagnosis Start IV Zosyn -Known tortuous colon with a prior history of unsuccessful colonoscopy -Left anterior thigh burn secondary to hot coffee. Dressing in place. Local care -Severe colonic diverticulosis -History of vaginal bleeding in a patient with known uterine adenocarcinoma. - radiation treatment 2018. Apparently patient was lost to follow-up. Supposed to follow-up with Dr. Reina at [facility] -Chronic kidney disease stage III likely nephrosclerosis Creatinine 1.6 -Chronic congestive heart failure from diastolic dysfunction EF 55-60 % Follow clinically. -Moderate to severe mitral regurgitation -CAD with a history of stent Patient not taking any medications at home -Persistent atrial fibrillation, rate uncontrolled IV Cardizem drip Cardiology following Not a candidate of anticoagulation because of vaginal bleeding -Choledocholithiasis, asymptomatic -Large left adrenal mass likely adenoma -Moderate cognitive impairment from likely Alzheimer's dementia -Full code Remains on IV Cardizem as A-fib remains uncontrolled and patient is NPO. NG tube repositioned as per surgery. IV Zosyn started. Discussed with patient. Past Medical History Past Medical History: Atrial Fibrillation, Cancer, CVA/TIA, GI Bleed, Hyperlipidemia, Myocardial Infarction ([place]) Additional Past Medical History / Comment(s): 07/27/17 [employer] HIP FX. 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 History of COVID-19, cervical cancer treated with radiation. No taking Eliquis due to bleeding issues in past. Last Myocardial Infarction Date:: 2009 History of Any Multi-Drug Resistant Organisms: None Reported Past Surgical History: Heart Catheterization, Orthopedic Surgery, Tonsillectomy Additional Past Surgical History / Comment(s): ORIF RT ANKLE HAS PLATE. Past Anesthesia/Blood Transfusion Reactions: No Reported Reaction Past Psychological History: No Psychological Hx Reported Smoking Status: Former smoker, Never smoker Past Alcohol Use History: None Reported Past Drug Use History: None Reported
[2023-09-20] MEDS: PIPERACILLIN-TAZOBACTAM 3.375 GM in SODIUM CHLORIDE 0.9% 100 ML IVPB SCH (20:42)
[2023-09-21] MEDS: ACETAMINOPHEN TAB 500 MG TAB PO PRN (09:29)
[2023-09-21 11:25] LABS: African American GFR (CKD) 44 (>60 ml/min/1.73 sqM); Anion Gap 7 mmol/L; Blood Urea Nitrogen 34 mg/dL (7-17); Calcium 8.5 mg/dL (8.4-10.2); Carbon Dioxide 28 mmol/L (22-30); Chloride 111 mmol/L (98-107); Glucose 131 mg/dL (74-99); Non-African American GFR(CKD) 38 (>60 ml/min/1.73 sqM); Potassium 2.9 mmol/L (3.5-5.1); Sodium 146 mmol/L (137-145)
--- NOTE | 2023-09-21 12:16 | P.PN ---
Subjective Progress Note Date: 09/21/23 HISTORY OF PRESENT ILLNESS: This is a 78-year-old female with a past medical history significant for no nischemic cardiomyopathy, CVA, mitral regurgitation, and persistent atrial fibrillation. Patient follows in the office with Dr. Montana. We have been asked to see the patient in consultation for A-fib with RVR. Patient examined at the bedside. Patient initially presented to the hospital with a chief complaint of abdominal pain. She states she has been having abdominal pain for the past 2 to 3 days. She reports having multiple episodes of vomiting. Patient was found to have a small bowel obstruction. Patient has an NG tube in currently to low intermittent suction. She remains NPO. She continues to report abdominal pain at the time of examination. Patient was also found to be in A-fib with RVR. She was started on IV Cardizem which continues to infuse at 10 mg an hour. She is unable to take oral medications secondary to her acute abdominal issues. Patient is not anticoagulated on an outpatient basis due to history of vaginal bleeding per most recent office records from cardiology office. DIAGNOSTICS: - EKG reveals A-fib with RVR. - Chest xray negative for acute process. - Laboratory data: WBC 10.6. Hemoglobin 12.4. Platelet count 194. Sodium 144. Potassium 4.6. BUN 35. Creatinine 1.61. - Current home cardiac medications include none. - Most recent echocardiogram obtained in April 2023 revealed ejection fraction 45 to 50%, moderate pulmonary hypertension, moderate to severe MR, mild AR - Cardiac catheterization history: 2016 revealing normal coronary arteries 09/18/2023 Patient examined this morning at the bedside. Patient continues to be NPO. She has an NG tube to low intermittent suction. Telemetry reveals atrial fibrillation with controlled ventricular rate. She remains on IV Cardizem at 10 mg an hour as patient is unable to take oral medications. Blood pressure stable. 09/19/2023 Patient examined this morning at the bedside. Patient continues to be NPO. She has an NG tube to low intermittent suction. Telemetry reveals atrial fibrillation with controlled ventricular rate. She remains on IV Cardizem at 10 mg an hour as patient is unable to take oral medications. Blood pressure stable. 09/19 Patient has been maintained on Cardizem drip for rate control on persistent atrial fibrillation due to n.p.o. status. NG tube remains in place. Blood pressure is 147/95 and heart rate 117. Pulse ox 90% on 5 L nasal cannula. Repeat blood work reveals sodium 148, potassium 3.3, BUN 40 and creatinine 1.25. No medication changes made today. 09/20 Blood pressure 140/88, heart rate between 78 and 104, pulse ox 97% on 3 L nasal cannula. Patient is n.p.o. except for ice chips and medications. Patient states that she is feeling better today. Repeat blood work reveals sodium 146, potassium 2.9, BUN 34 creatinine 1.33. Potassium replacement has been ordered. PHYSICAL EXAM: VITAL SIGNS: Reviewed. GENERAL: Well-developed in no acute distress. HEENT: Head is normocephalic. Pupils are equal, round. Sclerae anicteric. Mucous membranes of the mouth are moist. Neck supple. No JVD or thyromegaly LUNGS: Respirations even and unlabored. Lungs essentially clear to auscultation bilaterally. HEART: Irregular rate and rhythm. S1 and S2 heard. 3/6 systolic murmur at the apex ABDOMEN: Soft. Tenderness with palpation. NGT noted to low intermittent suction EXTREMITIES: Normal range of motion. No clubbing or cyanosis. Peripheral pulses intact. No lower extremity edema NEUROLOGIC: Awake and alert. Oriented x 3. ASSESSMENT: Abdominal pain Small bowel obstruction Persistent atrial fibrillation with RVR, not anticoagulated on an outpatient basis secondary to significant vaginal bleeding History of nonischemic cardiomyopathy Normal coronary arteries, per cardiac catheterization 2016 Moderate pulmonary hypertension Moderate to severe mitral regurgitation History of CVA Acute kidney injury PLAN: Continue IV Cardizem while patient is n.p.o. We will plan to transition to oral medications tomorrow if diet is advanced Patient is not anticoagulated on outpatient basis secondary to history of significant vaginal bleeding No need to repeat echocardiogram as this was performed in April 2023 Continue telemetry monitoring Further recommendations pending patient course Nurse practitioner note has been reviewed by physician. Signing provider agrees with the documented findings, assessment, and plan of care documented by CLINICAL INFORMATICS STRATEGIST as a scribe. Objective - Vital Signs Vital signs: Vital Signs Temp 97.3 F L 09/21/23 04:00 Pulse 94 09/21/23 04:00 Resp 16 09/21/23 04:00 BP 145/85 09/21/23 04:00 Pulse Ox 96 09/21/23 04:00 FiO2 Intake & Output 09/20/23 09/21/23 09/21/23 18:59 06:59 18:59 Intake Total 125 112.167 Output Total 1500 1350 Balance 125 -1387.833 -1350 Weight 90.718 kg Intake: Intake, IV Titration 125 112.167 Amount Diltiazem 125 mg In 125 112.167 Sodium Chloride 0.9% 100 ml @ Per Protocol IV .Q0M [facility] Rx#:[id number] Output: Gastric Drainage 1500 1200 Urine 150 Other: Voiding Method Bedside Commode Bedside Commode # Voids 4 3 - Labs CBC & Chem 7: 09/16/23 05:10 09/21/23 10:17 Labs: Abnormal Lab Results - Last 24 Hours (Table) 09/20/23 Range/Units 08:55 Sodium 148 H (137-145) mmol/L Potassium 3.3 L (3.5-5.1) mmol/L Chloride 115 H (98-107) mmol/L BUN 40 H (7-17) mg/dL Creatinine 1.25 H (0.52-1.04) mg/dL Glucose 175 H (74-99) mg/dL
[2023-09-21] MEDS: POTASSIUM CHLORIDE ER 20 MEQ TAB.ER PO SCH (12:45)
--- NOTE | 2023-09-21 15:46 | P.PN ---
Progress Note - Text Progress Note Date: 09/21/23 Chief Complaint: Abdominal pain vomiting This is a pleasant 78,years old female with past medical history of Atrial Fibrillation on Eliquis, CVA/TIA, GI Bleed, Hyperlipidemia, chronic GI bleed Attempted colonoscopy in 2021 showed a tortuous colon. Has known uterine adenocarcinoma. Received radiation treatment 2018. Then was lost to follow-up. Also supposed to followed up with radiation treatment at [facility]. Also had right-sided hydronephrosis in the past with right-sided ureteral stent. Patient now presents 1 day history of nausea vomiting abdominal pain. Patient not a good historian. Forgetful. She also had a history of uterine adenocarcinoma. Unclear who she followed up in the recent past. Found to have small bowel obstruction in the ER. NG tube to suction was placed. Was in A-fib with rapid ventricular rate. Tired. To be noted patient does not take any medications at home. September 16: NG tube remains to suction. No flatus. Decreased abdominal pain. No nausea vomiting. A-fib remains uncontrolled. Remains on IV Cardizem drip. NPO. Because of significant vaginal bleeding patient was not anticoagulated. Small bowel follow-through shows findings consistent with SBO. September 17: NG tube to suction remains in place. Has not passed any flatus. Abdomen is soft. Patient recently had a burn to the left thigh from hot tea. Dressing in place. Remains on IV fluids IV Cardizem drip. Atrial fibrillation rate controlled. September 18: NG tube remains to suction. No abdominal pain. On ice chips and popsicles. Continues to have significant NG tube output. September 19: Patient bit short of breath this morning. Crackles on examination. IV Lasix 40 mg given. Scattered infiltrate. Possible aspiration pneumonia. Some malpositioning of the NG tube on the x-ray. Readjusted per surgery. A-fib remains uncontrolled. Remains on IV Cardizem drip. NG tube remains to suction. No flatus. X-ray shows dilated loops of bowel. Mildly increased. September 20: Breathing initiate better. Remains in atrial fibrillation. Continue IV Cardizem drip. Not had a bowel movement. No flatus. Possible plan for surgical intervention today. Discussed with patient. Active Medications Acetaminophen (Acetaminophen Tab 500 Mg Tab) 500 mg PO Q6HR PRN PRN Reason: Fever and/ or Pain Last Admin: 04/09/24 09:29 Dose: 500 mg Diltiazem HCl 125 mg/ Sodium (Chloride) 125 mls @ 0 mls/hr IV .Q0M [facility]; Protocol Last Admin: 09/21/23 09:29 Dose: 10 mg/hr, 10 mls/hr Sodium Chloride (Saline 0.9%) 1,000 mls @ 50 mls/hr IV .Q20H [facility] Last Admin: 09/20/23 13:47 Dose: Not Given Piperacillin Sod/Tazobactam (Sod 3.375 gm/ Sodium Chloride) 100 mls @ 25 mls/hr IVPB Q8H [facility]; Protocol Last Admin: 09/21/23 11:47 Dose: 25 mls/hr Naloxone HCl (Naloxone 0.4 Mg/Ml 1 Ml Vial) 0.2 mg IV Q2M PRN PRN Reason: Opioid Reversal Ondansetron HCl (Ondansetron 4 Mg/2 Ml Vial) 4 mg IVP Q6HR PRN PRN Reason: Nausea And Vomiting Potassium Chloride (Potassium Chloride Er 20 Meq Tab.Er) 20 meq PO Q2H [facility] Stop: 09/21/23 17:01 Last Admin: 09/21/23 15:02 Dose: 20 meq Social history: Lives at [facility].. Does use a motorized chair. Gets Meals on Wheels. Started smoking at the age of 13 stopped in 2011. 1 pack a day. No alcohol. Physical examination: VITAL SIGNS: 97.7, 65, 20, 129 x 81, 95% on 2 L GENERAL: Reclining in bed, tired EYES: Pupils equal. Conjunctiva mina l. HEENT: External appearance of nose and ears normal, oral cavity grossly normal NG tube to suction. NECK: JVD not raised; masses not palpable. HEART: Heart sounds are regular; no edema. LUNGS: Respiratory rate increased, decreased breath sounds ABDOMEN: Soft, non-tender, liver spleen not palpable, no masses palpable. PSYCH: Alert and oriented x3; mood and affect anxious l. MUSCULOSKELETAL:No Clubbing/cyanosis;muscles-grossly intact. OA INVESTIGATIONS, reviewed in the clinical context: September 20: Sodium 146 potassium 2.9 BUN 34 creatinine 1.33 September 17: Sodium 147 potassium 3.6 BUN 54 creatinine 1.76 Small bowel follow-through [September 16] findings consistent with SBO. September 15: White count 11.6 hemoglobin 12.4 platelets 194 sodium 144 potassium 4.6 BUN 35 creatinine 1.61 UA positive for blood. Leukoesterase. WBC clumps. Chest x-ray film personally reviewed by me-nonspecific CT scan abdomen pelvis: Distended gallbladder. No ductal dilatation. Large left adrenal mass likely adenoma. Right hydronephrosis with double-J pigtail urinary catheter in place. Multiple dilated loops of small bowel with a transition point in the pelvis. Diverticulosis of descending and sigmoid colon. EKG tracing personally reviewed by me-atrial fibrillation, rate 146 Previous investigations: 2D echocardiogram April 2023 EF 45 to 50% moderate to severe mitral regurgitation Assessment and plan: -Acute small bowel obstruction, history of 1 day. With nausea vomiting abdominal pain. Transition point in the pelvis.: Slow to respond NG tube to suction continues. General surgery considering surgical intervention -Aspiration pneumonia: Start IV Zosyn -Known tortuous colon with a prior history of unsuccessful colonoscopy -Left anterior thigh burn secondary to hot coffee. Dressing in place. Local care -Severe colonic diverticulosis -History of vaginal bleeding in a patient with known uterine adenocarcinoma. - radiation treatment 2018. Apparently patient was lost to follow-up. Supposed to follow-up with Dr. Reina at [facility] -Chronic kidney disease stage III likely nephrosclerosis Creatinine 1.6 -Chronic congestive heart failure from diastolic dysfunction EF 55-60 % Follow clinically. -Moderate to severe mitral regurgitation -CAD with a history of stent Patient not taking any medications at home -Persistent atrial fibrillation, rate uncontrolled IV Cardizem drip Cardiology following Not a candidate of anticoagulation because of vaginal bleeding -Choledocholithiasis, asymptomatic -Large left adrenal mass likely adenoma -Moderate cognitive impairment from likely Alzheimer's dementia -Full code Continue IV Cardizem. NPO. NG tube. IV Zosyn. Possible surgical intervention Past Medical History Past Medical History: Atrial Fibrillation, Cancer, CVA/TIA, GI Bleed, Hyperlipidemia, Myocardial Infarction ([place]) Additional Past Medical History / Comment(s): 07/27/17 FALL'LT HIP FX. 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 History of COVID-19, cervical cancer treated with radiation. No taking Eliquis due to bleeding issues in past. Last Myocardial Infarction Date:: 2009 History of Any Multi-Drug Resistant Organisms: None Reported Past Surgical History: Heart Catheterization, Orthopedic Surgery, Tonsillectomy Additional Past Surgical History / Comment(s): ORIF RT ANKLE HAS PLATE. Past Anesthesia/Blood Transfusion Reactions: No Reported Reaction Past Psychological History: No Psychological Hx Reported Smoking Status: Former smoker, Never smoker Past Alcohol Use History: None Reported Past Drug Use History: None Reported
--- NOTE | 2023-09-21 16:06 | P.PN ---
Subjective Progress Note Date: 09/21/23 CHIEF COMPLAINT: Abdominal pain HISTORY OF PRESENT ILLNESS: Surgical service following in regards to patient's small bowel obstruction. Patient scheduled for robotic lysis of adhesions tomorrow. Patient denies any abdominal pain. Is still no bowel activity. NG tube output 1200 mL. But patient has been taking an ice chips and popsicles. Abdominal x-ray from yesterday similar findings of suspected small bowel obstruction. Dilation may be mildly increased in the right lower quadrant. Patient did pull out NG tube today. It has been replaced. PHYSICAL EXAM: VITAL SIGNS: Reviewed GENERAL: Well-developed in no acute distress. HEENT: No sclera icterus. Extraocular movements grossly intact. Moist buccal mucosa. Head is atraumatic, normocephalic. Hears conversational speech. No nasal drai nage. NECK: Supple without lymphadenopathy. CHEST: Non-labored respirations and equal bilateral excursions. CARDIOVASCULAR: Palpable 2+ radial pulses. ABDOMEN: Soft. Nondistended. Nontender MUSCULOSKELETAL: No clubbing or cyanosis. NEUROLOGIC: No focal or lateralizing signs. Cranial nerves II through XII grossly intact. PSYCH: Appropriate affect. Awake and alert. Able to answer some questions. SKIN: Well perfused. Good skin turgor. ASSESSMENT: 1. Small bowel obstruction with transition point noted in the pelvis per CT. 2. A-fib RVR 3. History of endometrial cancer 4. Hyperkalemia corrected 5. Chronic kidney disease 6. History of nonischemic cardiomyopathy PLAN: -Patient scheduled for robotic lysis of adhesions tomorrow with Dr. Humphrey -Continue NG tube for decompression -N.p.o. after midnight -PICC line and consult placed for audio visual specialist for TPN for nutrition support -Continue IV fluids Physician Adaptive Physical Education Specialist note has been reviewed by physician. Signing provider agrees with the documented findings, assessment, and plan of care. Objective - Vital Signs Vital signs: Vital Signs Temp 97.2 F L 09/21/23 11:48 Pulse 78 09/21/23 11:48 Resp 18 09/21/23 11:48 BP 140/88 09/21/23 11:48 Pulse Ox 97 09/21/23 11:48 FiO2 Intake & Output 09/20/23 09/21/23 09/21/23 18:59 06:59 18:59 Intake Total 125 112.167 125 Output Total 1500 1350 Balance 125 -1387.833 -1225 Weight 90.718 kg Intake: Intake, IV Titration 125 112.167 125 Amount Diltiazem 125 mg In 125 112.167 125 Sodium Chloride 0.9% 100 ml @ Per Protocol IV .Q0M [facility] Rx#:[id number] Output: Gastric Drainage 1500 1200 Urine 150 Other: Voiding Method Bedside Commode Bedside Commode # Voids 4 3 - Labs CBC & Chem 7: 09/16/23 05:10 09/21/23 10:17 Labs: Abnormal Lab Results - Last 24 Hours (Table) 09/21/23 Range/Units 10:17 Sodium 146 H (137-145) mmol/L Potassium 2.9 L (3.5-5.1) mmol/L Chloride 111 H (98-107) mmol/L BUN 34 H (7-17) mg/dL Creatinine 1.33 H (0.52-1.04) mg/dL Glucose 131 H (74-99) mg/dL
--- NOTE | 2023-09-21 17:09 | XR ---
EXAMINATION TYPE: XR chest 1V confirm line [facility] DATE OF EXAM: 09/21/2023 COMPARISON: 09/20/2023 INDICATION: NG tube TECHNIQUE: Single frontal view of the chest is obtained. FINDINGS: The heart size is enlarged. The pulmonary vasculature is prominent. There is a left lower lobe infiltrate. Small right lower lobe infiltrate is present. Findings appear similar to comparison. Nasogastric tube is present with the tip in the proximal left upper quadrant of the abdomen. IMPRESSION: 1. Bibasilar infiltrates left more so than right. 2. Cardiomegaly. 3. Nasogastric tube tip within the left upper quadrant abdomen.
[2023-09-21] MEDS: ONDANSETRON 4 MG/2 ML VIAL IVP PRN (21:26)
[2023-09-22] MEDS: LACTATED RINGERS 1,000 ML IV SCH (06:23)
[2023-09-22] MEDS: DEXAMETHASONE SOD PHOSPHATE 4 MG/ML 1 ML VIAL IV ONE (06:24)
[2023-09-22] MEDS ORDERED: HYDROmorphone 0.5 MG/0.5 ML SYRINGE IVP PRN (07:00)
[2023-09-22] MEDS: POTASSIUM CHLORIDE 10 MEQ in WATER FOR INJECTION 1 100ML.BAG IVPB SCH (09:24)
--- NOTE | 2023-09-22 09:44 | P.PN ---
Subjective Progress Note Date: 09/22/23 HISTORY OF PRESENT ILLNESS: This is a 78-year-old female with a past medical history significant for no nischemic cardiomyopathy, CVA, mitral regurgitation, and persistent atrial fibrillation. Patient follows in the office with Dr. [place]. We have been asked to see the patient in consultation for A-fib with RVR. Patient examined at the bedside. Patient initially presented to the hospital with a chief complaint of abdominal pain. She states she has been having abdominal pain for the past 2 to 3 days. She reports having multiple episodes of vomiting. Patient was found to have a small bowel obstruction. Patient has an NG tube in currently to low intermittent suction. She remains NPO. She continues to report abdominal pain at the time of examination. Patient was also found to be in A-fib with RVR. She was started on IV Cardizem which continues to infuse at 10 mg an hour. She is unable to take oral medications secondary to her acute abdominal issues. Patient is not anticoagulated on an outpatient basis due to history of vaginal bleeding per most recent office records from cardiology office. DIAGNOSTICS: - EKG reveals A-fib with RVR. - Chest xray negative for acute process. - Laboratory data: WBC 10.6. Hemoglobin 12.4. Platelet count 194. Sodium 144. Potassium 4.6. BUN 35. Creatinine 1.61. - Current home cardiac medications include none. - Most recent echocardiogram obtained in April 2023 revealed ejection fraction 45 to 50%, moderate pulmonary hypertension, moderate to severe MR, mild AR - Cardiac catheterization history: 2016 revealing normal coronary arteries 09/18/2023 Patient examined this morning at the bedside. Patient continues to be NPO. She has an NG tube to low intermittent suction. Telemetry reveals atrial fibrillation with controlled ventricular rate. She remains on IV Cardizem at 10 mg an hour as patient is unable to take oral medications. Blood pressure stable. 09/19/2023 Patient examined this morning at the bedside. Patient continues to be NPO. She has an NG tube to low intermittent suction. Telemetry reveals atrial fibrillation with controlled ventricular rate. She remains on IV Cardizem at 10 mg an hour as patient is unable to take oral medications. Blood pressure stable. 09/19 Patient has been maintained on Cardizem drip for rate control on persistent atrial fibrillation due to n.p.o. status. NG tube remains in place. Blood pressure is 147/95 and heart rate 117. Pulse ox 90% on 5 L nasal cannula. Repeat blood work reveals sodium 148, potassium 3.3, BUN 40 and creatinine 1.25. No medication changes made today. 09/20 Blood pressure 140/88, heart rate between 78 and 104, pulse ox 97% on 3 L nasal cannula. Patient is n.p.o. except for ice chips and medications. Patient states that she is feeling better today. Repeat blood work reveals sodium 146, potassium 2.9, BUN 34 creatinine 1.33. Potassium replacement has been ordered. 09/21 Patient is going for lysis of adhesions today. She remains n.p.o. and on Ca rdizem drip for heart rate control. Heart rate [place] [id number]. She is to start TPN as well. PHYSICAL EXAM: VITAL SIGNS: Reviewed. GENERAL: Well-developed in no acute distress. HEENT: Head is normocephalic. Pupils are equal, round. Sclerae anicteric. LUNGS: Respirations even and unlabored. Lungs essentially clear to auscultation bilaterally. HEART: Irregular rate and rhythm. S1 and S2 heard. 3/6 systolic murmur at the apex ABDOMEN: Soft. Tenderness with palpation. NGT noted to low intermittent suction EXTREMITIES: Normal range of motion. No clubbing or cyanosis. Peripheral pulses intact. No lower extremity edema NEUROLOGIC: Awake and alert. ASSESSMENT: Abdominal pain secondary to Small bowel obstruction Persistent atrial fibrillation with RVR, not anticoagulated on an outpatient basis secondary to significant vaginal bleeding History of nonischemic cardiomyopathy Normal coronary arteries, per cardiac catheterization 2016 Moderate pulmonary hypertension Moderate to severe mitral regurgitation History of CVA Acute kidney injury PLAN: Continue IV Cardizem while patient is n.p.o. Plan to transition patient to oral medications once diet is advanced following procedure Patient is not anticoagulated on outpatient basis secondary to history of significant vaginal bleeding No need to repeat echocardiogram as this was performed in April 2023 Continue telemetry monitoring Further recommendations pending patient course Nurse practitioner note has been reviewed by physician. Signing provider agrees with the documented findings, assessment, and plan of care documented by FISH CUTTER as a scribe. Objective - Vital Signs Vital signs: Vital Signs Temp 98.3 F 09/22/23 09:01 Pulse 81 09/22/23 09:01 Resp 18 09/22/23 09:01 BP 127/80 09/22/23 09:01 Pulse Ox 93 L 09/22/23 09:07 FiO2 Intake & Output 09/21/23 09/22/23 09/22/23 18:59 06:59 18:59 Intake Total 125 125 102.5 Output Total 1500 70 Balance -1375 55 102.5 Weight 68.538 kg Intake: Intake, IV Titration 125 125 102.5 Amount Diltiazem 125 mg In 125 125 102.5 Sodium Chloride 0.9% 100 ml @ Per Protocol IV .Q0M [facility] Rx#:[id number] Output: Gastric Drainage 1200 Urine 300 50 Emesis 20 Other: Voiding Method Bedside Commode # Voids 2 1 - Labs CBC & Chem 7: 09/16/23 05:10 09/21/23 10:17 Labs: Abnormal Lab Results - Last 24 Hours (Table) 09/21/23 09/21/23 Range/Units 10:17 10:17 Sodium 146 H (137-145) mmol/L Potassium 2.9 L (3.5-5.1) mmol/L Chloride 111 H (98-107) mmol/L BUN 34 H (7-17) mg/dL Creatinine 1.33 H (0.52-1.04) mg/dL Glucose 131 H (74-99) mg/dL Procalcitonin 0.49 H (0.02-0.09) ng/mL Microbiology - Last 24 Hours (Table) 09/15/23 23:46 Blood Culture - Final Blood 09/15/23 23:31 Blood Culture - Final Blood
--- NOTE | 2023-09-22 11:07 | P.NPCON ---
History of Present Illness - Reason for Consult acute renal failure, chronic renal failure - History of Present Illness Reason for consultation: Acute kidney injury on chronic kidney disease History of present illness: Patient is a 78-year-old female seen in renal consultation for acute kidney injury on chronic kidney disease. Patient has chronic kidney disease stage IIIb with baseline creatinine near 1.5. Creatinine this admission peaked at 1.76 and was 1.33 yesterday. Patient came to the hospital on September 15, 2023 due to nausea vomiting and abdominal pain. Patient has history of endometrial cancer. Patient underwent CAT scan and was subsequently diagnosed with small bowel obstruction. Patient also developed A-fib with RVR this admission and is currently maintained on Cardizem drip. She has an NG tube in place and is receiving TPN. She is scheduled to undergo robotic lysis of adhesions this admission. Hemodynamically stable. Urine output not measured accurately. No home medications listed. Vital signs are stable. General: No acute distress. HEENT: Head exam is unremarkable. On nasal cannula. LUNGS: no audible rhonchi or wheezes. HEART: Rate and Rhythm are regular. ABDOMEN: Distention noted. EXTREMITITES: No edema. Past Medical History Past Medical History: Atrial Fibrillation, Cancer, CVA/TIA, GI Bleed, Hyperlipidemia, Myocardial Infarction ([place]) Additional Past Medical History / Comment(s): 07/27/17 FALL'LT HIP FX. OTHER HX"BOARDERLINE DIABETIC- NO MEDS BUT CHECKS BS ONCE A DAY,CVA/TIA 2011 NO RESID UAL EEFECTS, RT ANKLE BROKEN-(SX DONE HAD PLATE), PAST STRESS TEST. History of COVID-19, cervical cancer treated with radiation. No taking Eliquis due to bleeding issues in past. Last Myocardial Infarction Date:: 2009 History of Any Multi-Drug Resistant Organisms: None Reported Past Surgical History: Heart Catheterization, Orthopedic Surgery, Tonsillectomy Additional Past Surgical History / Comment(s): ORIF RT ANKLE HAS PLATE. Past Anesthesia/Blood Transfusion Reactions: No Reported Reaction Past Psychological History: No Psychological Hx Reported Smoking Status: Former smoker, Never smoker Past Alcohol Use History: None Reported Past Drug Use History: None Reported - Past Family History Mother Family Medical History: No Reported History Additional Family Medical History / Comment(s): FROM ANUERYSM Father Family Medical History: No Reported History Medications and Allergies Home Medications Medication Instructions Recorded Confirmed Type No Known Home Medications 09/16/23 09/16/23 History Allergies Allergy/AdvReac Type Severity Reaction Status Date / Time No Known Allergies Allergy Verified 09/16/23 10:37 Physical Exam Vitals: Vital Signs Temp Pulse Resp BP BP Pulse Ox 09/22/23 09:07 93 L 09/22/23 09:01 98.3 F 81 18 127/80 96 09/22/23 04:00 97.9 F 109 H 18 133/75 94 L 09/22/23 02:00 18 09/22/23 00:00 97.7 F 97 18 148/82 95 09/21/23 20:54 18 09/21/23 20:00 97.7 F 92 18 138/99 09/21/23 16:48 97.9 F 104 H 16 150/89 97 09/21/23 15:04 97.7 F 65 20 129/81 95 09/21/23 11:48 97.2 F L 78 18 140/88 97 Intake and Output 09/21/23 09/22/23 09/22/23 22:59 06:59 14:59 Intake Total 125 102.5 Output Total 70 Balance 55 102.5 Intake: Intake, IV Titration 125 102.5 Amount Diltiazem 125 mg In 125 102.5 Sodium Chloride 0.9% 100 ml @ Per Protocol IV .Q0M [facility] Rx#:[id number] Output: Urine 50 Emesis 20 Other: Voiding Method Bedside Commode Bedside Commode Bedside Commode # Voids 2 1 Results - Lab Results Most recent lab results Calcium 8.5 mg/dL (8.4-10.2) 09/21/23 10:17 Magnesium 1.6 mg/dL (1.6-2.3) 09/22/23 08:42 09/16/23 05:10 09/21/23 10:17 Assessment and Plan Plan: Assessment: 1. Acute kidney injury secondary to vasomotor nephropathy from poor intake. Creatinine peaked at 1.76 this admission and was down to 1.[address] scan showed right-sided hydronephrosis. 2. Chronic kidney disease stage IIIb with baseline creatinine 1.5 secondary to nephrosclerosis. 3. Small bowel obstruction being followed by surgery. Currently has NG tube. Lysis of additions pending. 4. Hypernatremia from lack of oral water intake. 5. Hypokalemia from poor intake. Magnesium 1.6 today. 6. A-fib with RVR maintained on Cardizem drip. Cardiology following. Plan: Maintain TPN. Potassium and magnesium being replaced. Morning labs pending. Add D5W at 50 cc an hour. Consider urology eval for the right-sided hydronephrosis. Continue to monitor renal function and urine output. Prefer PICC line in dominant arm. Thank you for the consultation. I will continue to follow the patient with you during her hospital stay.
[2023-09-22] MEDS: DEXTROSE 5% IN WATER 1,000 ML IV SCH (11:37)
[2023-09-22 11:53] LABS: African American GFR (CKD) 36 (>60 ml/min/1.73 sqM); Anion Gap 10 mmol/L; Blood Urea Nitrogen 36 mg/dL (7-17); Calcium 8.4 mg/dL (8.4-10.2); Carbon Dioxide 24 mmol/L (22-30); Chloride 108 mmol/L (98-107); Glucose 139 mg/dL (74-99); Non-African American GFR(CKD) 32 (>60 ml/min/1.73 sqM); Potassium 3.6 mmol/L (3.5-5.1); Sodium 142 mmol/L (137-145)
--- NOTE | 2023-09-22 13:30 | P.PN ---
Subjective Progress Note Date: 09/22/23 CHIEF COMPLAINT: Abdominal pain HISTORY OF PRESENT ILLNESS: Surgical service following in regards to patient's small bowel obstruction. Patient scheduled for Robotic lysis of adhesions initially for today. But she is hypokalemic with a potassium of 2.9 and magnesium is low at 1.6. Electrolytes are being replaced. Surgery canceled for today. Chest x-ray reporting bibasilar infiltrates left more so than right. Patient did have increased oxygen requirements during the night. Patient denies any abdominal pain. Still no bowel activity. NG tube output 500ml currently. Afebrile. Potassium 2.9 with repeat potassium 3.6 magnesium 1.6 PHYSICAL EXAM: VITAL SIGNS: Reviewed GENERAL: Well-developed in no acute distress. HEENT: No sclera icterus. Extraocular movements grossly intact. Moist buccal mucosa. Head is atraumatic, normocephalic. Hears conversational speech. No nasal drainage. NECK: Supple without lymphadenopathy. CHEST: Non-labored respirations and equal bilateral excursions. CARDIOVASCULAR: Palpable 2+ radial pulses. ABDOMEN: Soft. Nondistended. Nontender MUSCULOSKELETAL: No clubbing or cyanosis. NEUROLOGIC: No focal or lateralizing signs. Cranial nerves II through XII grossly intact. PSYCH: Appropriate affect. Awake and alert. Able to answer some questions. SKIN: Well perfused. Good skin turgor. ASSESSMENT: 1. Small bowel obstruction with transition point noted in the pelvis per CT. 2. A-fib RVR 3. History of endometrial cancer 4. Hyperkalemia corrected 5. Chronic kidney disease 6. History of nonischemic cardiomyopathy 7. Hypokalemia and hypomagnesia 8. Pulmonary infiltrates PLAN: -Surgery canceled today and postponed until 09/24/2023. Electrolytes need to be corrected and will consult pulmonary service to maximize pulmonary status prior to surgery -Continue to medically optimize patient prior to surgery -Patient scheduled for robotic lysis of adhesions on 09/24/2023 -Continue to correct electrolytes -Patient scheduled for PICC line placement and to initiate TPN for nutrition support -Continue NG tube for decompression -Continue IV fluids Physician Public Health Program Manager note has been reviewed by physician. Signing provider agrees with the documented findings, assessment, and plan of care. Objective - Vital Signs Vital signs: Vital Signs Temp 98.3 F 09/22/23 09:01 Pulse 94 09/22/23 11:43 Resp 16 09/22/23 11:43 BP 134/78 09/22/23 11:43 Pulse Ox 94 L 09/22/23 11:43 FiO2 Intake & Output 09/21/23 09/22/23 09/22/23 18:59 06:59 18:59 Intake Total 125 125 102.5 Output Total 1500 70 Balance -1375 55 102.5 Weight 68.538 kg Intake: Intake, IV Titration 125 125 102.5 Amount Diltiazem 125 mg In 125 125 102.5 Sodium Chloride 0.9% 100 ml @ Per Protocol IV .Q0M [facility] Rx#:[id number] Output: Gastric Drainage 1200 Urine 300 50 Emesis 20 Other: Voiding Method Bedside Commode Bedside Commode # Voids 2 1 - Labs CBC & Chem 7: 09/16/23 05:10 09/22/23 08:42 Labs: Abnormal Lab Results - Last 24 Hours (Table) 09/21/23 09/22/23 Range/Units 10:17 08:42 Chloride 108 H (98-107) mmol/L BUN 36 H (7-17) mg/dL Creatinine 1.56 H (0.52-1.04) mg/dL Glucose 139 H (74-99) mg/dL Procalcitonin 0.49 H (0.02-0.09) ng/mL Microbiology - Last 24 Hours (Table) 09/15/23 23:46 Blood Culture - Final Blood 09/15/23 23:31 Blood Culture - Final Blood
[2023-09-22] MEDS: MAGNESIUM SULFATE-D5W PMX 1 GM in DEXTROSE/WATER 1 100ML.BAG IVPB SCH (14:11)
[2023-09-22] MEDS: HEPARIN SODIUM,PORCINE 5,000 UNIT/ML 1 ML VIAL SQ SCH (20:11)
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
--- NOTE | 2023-09-22 21:51 | P.GSCN ---
History of Present Illness Consult date: 09/22/23 Reason for Consult: Right hydronephrosis Requesting physician: Biju Sanabria History of present illness: The patient is a 78-year-old white female with a history of stage IIIb chronic kidney disease secondary to nephrosclerosis. She is currently hospitalized with a small bowel obstruction. CT scan shows evidence of right hydronephrosis. A right ureteral stent is in place. She received radiation therapy in 2019 for uterine carcinoma. She has Alzheimer's dementia and is unable to provide history. Review of Systems ROS unobtainable: due to mental status Past Medical History Past Medical History: Atrial Fibrillation, Cancer, CVA/TIA, GI Bleed, Hyperlipidemia, Myocardial Infarction ([place]) Additional Past Medical History / Comment(s): 07/27/17 [facility] HIP FX. 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 History of COVID-19, cervical cancer treated with radiation. No taking Eliquis due to bleeding issues in past. Last Myocardial Infarction Date:: 2009 History of Any Multi-Drug Resistant Organisms: None Reported Past Surgical History: Heart Catheterization, Orthopedic Surgery, Tonsillectomy Additional Past Surgical History / Comment(s): ORIF RT ANKLE HAS PLATE. Past Anesthesia/Blood Transfusion Reactions: No Reported Reaction Past Psychological History: No Psychological Hx Reported Smoking Status: Former smoker, Never smoker Past Alcohol Use History: None Reported Past Drug Use History: None Reported - Past Family History Mother Family Medical History: No Reported History Additional Family Medical History / Comment(s): FROM ANUERYSM Father Family Medical History: No Reported History Medications and Allergies Home Medications Medication Instructions Recorded Confirmed Type No Known Home Medications 09/16/23 09/16/23 History Allergies Allergy/AdvReac Type Severity Reaction Status Date / Time No Known Allergies Allergy Verified 09/16/23 10:37 Surgical - Exam Vital Signs Temp Pulse Resp BP Pulse Ox 97.4 F L 144 H 18 152/132 98 09/15/23 22:48 09/15/23 22:48 09/15/23 22:48 09/15/23 22:48 09/15/23 22:48 - General well developed, well nourished, no distress - Respiratory normal respiratory effort - Abdomen Abdomen: soft, non tender, no guarding, no rigid, no rebound - Psychiatric oriented to time (So trauma went [place] [facility] [place]), oriented to person, oriented to place, speech is normal, memory intact Results - Labs 09/16/23 05:10 09/22/23 08:42 Abnormal Lab Results - Last 24 Hours (Table) 09/22/23 Range/Units 08:42 Chloride 108 H (98-107) mmol/L BUN 36 H (7-17) mg/dL Creatinine 1.56 H (0.52-1.04) mg/dL Glucose 139 H (74-99) mg/dL Diabetes panel 09/22/23 Range/Units 08:42 Sodium 142 (137-145) mmol/L Potassium 3.6 (3.5-5.1) mmol/L Chloride 108 H (98-107) mmol/L Carbon Dioxide 24 (22-30) mmol/L BUN 36 H (7-17) mg/dL Creatinine 1.56 H (0.52-1.04) mg/dL Glucose 139 H (74-99) mg/dL Calcium 8.4 (8.4-10.2) mg/dL Calcium panel 09/22/23 Range/Units 08:42 Calcium 8.4 (8.4-10.2) mg/dL Pituitary panel 09/22/23 Range/Units 08:42 Sodium 142 (137-145) mmol/L Potassium 3.6 (3.5-5.1) mmol/L Chloride 108 H (98-107) mmol/L Carbon Dioxide 24 (22-30) mmol/L BUN 36 H (7-17) mg/dL Creatinine 1.56 H (0.52-1.04) mg/dL Glucose 139 H (74-99) mg/dL Calcium 8.4 (8.4-10.2) mg/dL Adrenal panel 09/22/23 Range/Units 08:42 Sodium 142 (137-145) mmol/L Potassium 3.6 (3.5-5.1) mmol/L Chloride 108 H (98-107) mmol/L Carbon Dioxide 24 (22-30) mmol/L BUN 36 H (7-17) mg/dL Creatinine 1.56 H (0.52-1.04) mg/dL Glucose 139 H (74-99) mg/dL Calcium 8.4 (8.4-10.2) mg/dL - Imaging CT scan - abdomen: report reviewed, image reviewed Assessment and Plan (1) Hydronephrosis Current Visit: No Status: Acute Priority: High Code(s): N13.30 - UNSPECIFIED HYDRONEPHROSIS SNOMED Code(s): 26130188 Plan: I reviewed the patient's CT scan, which shows that the right ureteral stent is properly positioned. There is evidence of right hydronephrosis. I will attempt to obtain patient records prior to making any formal recommendations. Time with Patient: Greater than 30
[2023-09-23 07:21] LABS: African American GFR (CKD) 35 (>60 ml/min/1.73 sqM); Anion Gap 11 mmol/L; Blood Urea Nitrogen 45 mg/dL (7-17); Calcium 8.9 mg/dL (8.4-10.2); Carbon Dioxide 23 mmol/L (22-30); Chloride 105 mmol/L (98-107); Glucose 141 mg/dL (74-99); Magnesium 2.2 mg/dL (1.6-2.3); Non-African American GFR(CKD) 30 (>60 ml/min/1.73 sqM); Potassium 3.9 mmol/L (3.5-5.1); Sodium 139 mmol/L (137-145)
--- NOTE | 2023-09-23 11:38 | P.PN ---
Subjective Patient is seen in follow-up for acute kidney injury on chronic kidney disease. Renal function fairly stable. Remains on Cardizem drip for A-fib. NG tube noted. Sitting up in chair. Denies abdominal pain. Has been voiding. Vital signs are stable. General: No acute distress. HEENT: Head exam is unremarkable. NG tube noted. LUNGS: No audible rhonchi or wheezes. HEART: Rate and Rhythm are regular. ABDOMEN: Nontender. EXTREMITITES: No edema. Objective - Vital Signs Vital signs: Vital Signs Temp 97.5 F L 09/23/23 08:23 Pulse 101 H 09/23/23 08:23 Resp 16 09/23/23 08:23 BP 130/74 09/23/23 08:23 Pulse Ox 95 09/23/23 08:23 FiO2 Intake & Output 09/22/23 09/23/23 09/23/23 18:59 06:59 18:59 Intake Total 102.5 111.833 118.167 Output Total 600 300 300 Balance -497.5 -188.167 -181.833 Intake: Intake, IV Titration 102.5 111.833 118.167 Amount Diltiazem 125 mg In 102.5 111.833 118.167 Sodium Chloride 0.9% 100 ml @ Per Protocol IV .Q0M [facility] Rx#:[id number] Output: Gastric Drainage 600 300 Urine 300 Other: Voiding Method Bedside Commode Bedside Commode Bedside Commode # Voids 2 - Labs CBC & Chem 7: 09/16/23 05:10 09/23/23 06:29 Labs: Abnormal Lab Results - Last 24 Hours (Table) 09/22/23 09/23/23 Range/Units 08:42 06:29 Chloride 108 H (98-107) mmol/L BUN 36 H 45 H (7-17) mg/dL Creatinine 1.56 H 1.61 H (0.52-1.04) mg/dL Glucose 139 H 141 H (74-99) mg/dL Assessment and Plan Plan: Assessment: 1. Acute kidney injury secondary to vasomotor nephropathy from poor intake. Creatinine peaked at 1.76 this admission and stable at 1.61. CT scan showed right-sided hydronephrosis. Patient has a right ureteral stent. Urology following. 2. Chronic kidney disease stage IIIb with baseline creatinine 1.5 secondary to nephrosclerosis. 3. Small bowel obstruction being followed by surgery. Currently has NG tube. Lysis of additions pending. 4. Hypernatremia from lack of oral water intake. 5. Hypokalemia from poor intake. Magnesium 1.6 today. Both replaced. Better. 6. A-fib with RVR maintained on Cardizem drip. Cardiology following. Plan: Maintain TPN. Continue to monitor renal function and urine output.
--- NOTE | 2023-09-23 14:26 | P.PN ---
Subjective Progress Note Date: 09/23/23 HISTORY OF PRESENT ILLNESS: This is a 78-year-old female with a past medical history significant for no nischemic cardiomyopathy, CVA, mitral regurgitation, and persistent atrial fibrillation. Patient follows in the office with Dr. [place]. We have been asked to see the patient in consultation for A-fib with RVR. Patient examined at the bedside. Patient initially presented to the hospital with a chief complaint of abdominal pain. She states she has been having abdominal pain for the past 2 to 3 days. She reports having multiple episodes of vomiting. Patient was found to have a small bowel obstruction. Patient has an NG tube in currently to low intermittent suction. She remains NPO. She continues to report abdominal pain at the time of examination. Patient was also found to be in A-fib with RVR. She was started on IV Cardizem which continues to infuse at 10 mg an hour. She is unable to take oral medications secondary to her acute abdominal issues. Patient is not anticoagulated on an outpatient basis due to history of vaginal bleeding per most recent office records from cardiology office. DIAGNOSTICS: - EKG reveals A-fib with RVR. - Chest xray negative for acute process. - Laboratory data: WBC 10.6. Hemoglobin 12.4. Platelet count 194. Sodium 144. Potassium 4.6. BUN 35. Creatinine 1.61. - Current home cardiac medications include none. - Most recent echocardiogram obtained in April 2023 revealed ejection fraction 45 to 50%, moderate pulmonary hypertension, moderate to severe MR, mild AR - Cardiac catheterization history: 2016 revealing normal coronary arteries 09/18/2023 Patient examined this morning at the bedside. Patient continues to be NPO. She has an NG tube to low intermittent suction. Telemetry reveals atrial fibrillation with controlled ventricular rate. She remains on IV Cardizem at 10 mg an hour as patient is unable to take oral medications. Blood pressure stable. 09/19/2023 Patient examined this morning at the bedside. Patient continues to be NPO. She has an NG tube to low intermittent suction. Telemetry reveals atrial fibrillation with controlled ventricular rate. She remains on IV Cardizem at 10 mg an hour as patient is unable to take oral medications. Blood pressure stable. 09/19 Patient has been maintained on Cardizem drip for rate control on persistent atrial fibrillation due to n.p.o. status. NG tube remains in place. Blood pressure is 147/95 and heart rate 117. Pulse ox 90% on 5 L nasal cannula. Repeat blood work reveals sodium 148, potassium 3.3, BUN 40 and creatinine 1.25. No medication changes made today. 09/20 Blood pressure 140/88, heart rate between 78 and 104, pulse ox 97% on 3 L nasal cannula. Patient is n.p.o. except for ice chips and medications. Patient states that she is feeling better today. Repeat blood work reveals sodium 146, potassium 2.9, BUN 34 creatinine 1.33. Potassium replacement has been ordered. 09/21 Patient is going for lysis of adhesions today. She remains n.p.o. and on Ca rdizem drip for heart rate control[place] [id number]. She is to start TPN as well. 09/22 Yesterday surgery for lysis of adhesion was postponed until Wednesday to allow time to correct electrolytes. Consult was added for pulmonary medicine. Blood pressure 130/74, heart rate 101. She is currently on Cardizem drip at 10 mg/h. Patient is also starting TPN. NG tube remains in place. Repeat blood work reveals BUN 45 creatinine 1.61 patient is followed by nephrology. PHYSICAL EXAM: VITAL SIGNS: Reviewed. GENERAL: Well-developed in no acute distress. HEENT: Head is normocephalic. Pupils are equal, round. Sclerae anicteric. LUNGS: Respirations even and unlabored. Lungs essentially clear to auscultation bilaterally. HEART: Irregular rate and rhythm. S1 and S2 heard. 3/6 systolic murmur at the apex ABDOMEN: Soft. Tenderness with palpation. NGT noted to low intermittent sucti on EXTREMITIES: Normal range of motion. No clubbing or cyanosis. Peripheral pulses intact. No lower extremity edema NEUROLOGIC: Awake and alert. ASSESSMENT: Abdominal pain secondary to Small bowel obstruction, surgery scheduled for Wednesday Persistent atrial fibrillation with RVR, not anticoagulated on an outpatient basis secondary to significant vaginal bleeding History of nonischemic cardiomyopathy Normal coronary arteries, per cardiac catheterization 2016 Moderate pulmonary hypertension Moderate to severe mitral regurgitation History of CVA Acute kidney injury PLAN: Continue IV Cardizem while patient is n.p.o. Plan to transition patient to oral medications once diet is advanced following procedure Patient is not anticoagulated on outpatient basis secondary to history of significant vaginal bleeding No need to repeat echocardiogram as this was performed in April 2023 Continue telemetry monitoring Further recommendations pending patient course Nurse practitioner note has been reviewed by physician. Signing provider agrees with the documented findings, assessment, and plan of care documented by SHIP WIRER as a scribe. Objective - Vital Signs Vital signs: Vital Signs Temp 97.5 F L 09/23/23 08:23 Pulse 91 09/23/23 11:50 Resp 16 09/23/23 11:50 BP 140/70 09/23/23 11:50 Pulse Ox 95 09/23/23 13:13 FiO2 Intake & Output 09/22/23 09/23/23 09/23/23 18:59 06:59 18:59 Intake Total 102.5 111.833 143.834 Output Total 600 300 300 Balance -497.5 -188.167 -156.166 Intake: Intake, IV Titration 102.5 111.833 143.834 Amount Diltiazem 125 mg In 102.5 111.833 143.834 Sodium Chloride 0.9% 100 ml @ Per Protocol IV .Q0M [facility] Rx#:[id number] Output: Gastric Drainage 600 300 Urine 300 Other: Voiding Method Bedside Commode Bedside Commode Bedside Commode # Voids 2 - Labs CBC & Chem 7: 09/16/23 05:10 09/23/23 06:29 Labs: Abnormal Lab Results - Last 24 Hours (Table) 09/23/23 Range/Units 06:29 BUN 45 H (7-17) mg/dL Creatinine 1.61 H (0.52-1.04) mg/dL Glucose 141 H (74-99) mg/dL
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
--- NOTE | 2023-09-23 15:57 | P.PN ---
Subjective Progress Note Date: 09/23/23 CHIEF COMPLAINT: Abdominal pain HISTORY OF PRESENT ILLNESS: Surgical service following in regards to patient's small bowel obstruction. Patient still had no bowel activity. She denies abdominal pain. Denies any nausea or vomiting. Electrolytes have been corrected. NG tube output 300 mL brown output. Patient seen by multiple consultants. Afebrile. Sodium 139 potassium 3.9 creatinine 1.61 magnesium 2.2. Patient unable to get PICC line placed for TPN because there is no interventional radiology or vascular surgical service available to place. Patient has been seen by pulmonary service. PHYSICAL EXAM: VITAL SIGNS: Reviewed GENERAL: Well-developed in no acute distress. HEENT: No sclera icterus. Extraocular movements grossly intact. Moist buccal mucosa. Head is atraumatic, normocephalic. Hears conversational speech. No nasal drainage. NECK: Supple without lymphadenopathy. CHEST: Non-labored respirations and equal bilateral excursions. CARDIOVASCULAR: Palpable 2+ radial pulses. ABDOMEN: Soft. Nondistended. Nontender MUSCULOSKELETAL: No clubbing or cyanosis. NEUROLOGIC: No focal or lateralizing signs. Cranial nerves II through XII grossly intact. PSYCH: Appropriate affect. Awake and alert. Able to answer some questions. SKIN: Well perfused. Good skin turgor. ASSESSMENT: 1. Small bowel obstruction with transition point noted in the pelvis per CT. 2. A-fib RVR 3. History of endometrial cancer 4. Hyperkalemia corrected 5. Chronic kidney disease 6. History of nonischemic cardiomyopathy 7. Hypokalemia and hypomagnesia improved 8. Pulmonary infiltrates PLAN: -Patient scheduled for robotic lysis of adhesions tomorrow, 09/24/[address] Humphrey -Continue IV fluids -Repeat electrolytes in a.m. -Continue NG tube for decompression Physician [employer] Back Tender note has been reviewed by physician. Signing provider agrees with the documented findings, assessment, and plan of care. Objective - Vital Signs Vital signs: Vital Signs Temp 97.5 F L 09/23/23 08:23 Pulse 91 09/23/23 11:50 Resp 16 09/23/23 11:50 BP 140/70 09/23/23 11:50 Pulse Ox 95 09/23/23 13:13 FiO2 Intake & Output 09/22/23 09/23/23 09/23/23 18:59 06:59 18:59 Intake Total 102.5 111.833 143.834 Output Total 600 300 300 Balance -497.5 -188.167 -156.166 Intake: Intake, IV Titration 102.5 111.833 143.834 Amount Diltiazem 125 mg In 102.5 111.833 143.834 Sodium Chloride 0.9% 100 ml @ Per Protocol IV .Q0M [facility] Rx#:[id number] Output: Gastric Drainage 600 300 Urine 300 Other: Voiding Method Bedside Commode Bedside Commode Bedside Commode # Voids 2 - Labs CBC & Chem 7: 09/16/23 05:10 09/23/23 06:29 Labs: Abnormal Lab Results - Last 24 Hours (Table) 09/23/23 Range/Units 06:29 BUN 45 H (7-17) mg/dL Creatinine 1.61 H (0.52-1.04) mg/dL Glucose 141 H (74-99) mg/dL
[2023-09-23] MEDS: SODIUM CHLORIDE 0.9% 1,000 ML IV SCH (16:38)
--- NOTE | 2023-09-23 16:58 | P.PN ---
Progress Note - Text Progress Note Date: 09/23/23 Chief Complaint: Abdominal pain vomiting This is a pleasant 78,years old female with past medical history of Atrial Fibrillation on Eliquis, CVA/TIA, GI Bleed, Hyperlipidemia, chronic GI bleed Attempted colonoscopy in 2021 showed a tortuous colon. Has known uterine adenocarcinoma. Received radiation treatment 2018. Then was lost to follow-up. Also supposed to followed up with radiation treatment at [facility]. Also had right-sided hydronephrosis in the past with right-sided ureteral stent. Patient now presents 1 day history of nausea vomiting abdominal pain. Patient not a good historian. Forgetful. She also had a history of uterine adenocarcinoma. Unclear who she followed up in the recent past. Found to have small bowel obstruction in the ER. NG tube to suction was placed. Was in A-fib with rapid ventricular rate. Tired. To be noted patient does not take any medications at home. September 16: NG tube remains to suction. No flatus. Decreased abdominal pain. No nausea vomiting. A-fib remains uncontrolled. Remains on IV Cardizem drip. NPO. Because of significant vaginal bleeding patient was not anticoagulated. Small bowel follow-through shows findings consistent with SBO. September 17: NG tube to suction remains in place. Has not passed any flatus. Abdomen is soft. Patient recently had a burn to the left thigh from hot tea. Dressing in place. Remains on IV fluids IV Cardizem drip. Atrial fibrillation rate controlled. September 18: NG tube remains to suction. No abdominal pain. On ice chips and popsicles. Continues to have significant NG tube output. September 19: Patient bit short of breath this morning. Crackles on examination. IV Lasix 40 mg given. Scattered infiltrate. Possible aspiration pneumonia. Some malpositioning of the NG tube on the x-ray. Readjusted per surgery. A-fib remains uncontrolled. Remains on IV Cardizem drip. NG tube remains to suction. No flatus. X-ray shows dilated loops of bowel. Mildly increased. September 20: Breathing initiate better. Remains in atrial fibrillation. Continue IV Cardizem drip. Not had a bowel movement. No flatus. Possible plan for surgical intervention today. Discussed with patient. September 21: Saw the patient this morning. Remains on IV Cardizem drip. Dr. Blood has postponed the surgery till patient was stable. Remains on IV Zosyn. Tired. On 2 L nasal cannula September 22: Remains on Cardizem drip IV Zosyn. Pending surgical intervention by Dr. Wagoner for small bowel obstruction. Patient tired. No bowel movement. No flatus. Abdomen is soft. As vascular and r in dementia radiology not available cannot have a PICC line placed for TPN. Active Medications Acetaminophen (Acetaminophen Tab 500 Mg Tab) 500 mg PO Q6HR PRN PRN Reason: Fever and/ or Pain Last Admin: 09/21/23 09:29 Dose: 500 mg Heparin Sodium (Porcine) (Heparin Sodium,Porcine 5,000 Unit/Ml 1 Ml Vial) 5,000 unit SQ Q12HR [facility] Last Admin: 09/23/23 08:23 Dose: 5,000 unit Diltiazem HCl 125 mg/ Sodium (Chloride) 125 mls @ 0 mls/hr IV .Q0M [facility]; Protocol Last Titration: 09/23/23 10:57 Dose: 15 mg/hr, 15 mls/hr Piperacillin Sod/Tazobactam (Sod 3.375 gm/ Sodium Chloride) 100 mls @ 25 mls/hr IVPB Q8H [facility]; Protocol Last Admin: 09/23/23 11:46 Dose: 25 mls/hr Lactated Ringer's (Lactated Ringers) 1,000 mls @ 20 mls/hr IV .Q24H [facility] Last Admin: 09/23/23 05:30 Dose: Not Given Sodium Chloride (Saline 0.9%) 1,000 mls @ 75 mls/hr IV .[id number] [facility] Last Admin: 09/23/23 16:38 Dose: 75 mls/hr Naloxone HCl (Naloxone 0.4 Mg/Ml 1 Ml Vial) 0.2 mg IV Q2M PRN PRN Reason: Opioid Reversal Ondansetron HCl (Ondansetron 4 Mg/2 Ml Vial) 4 mg IVP Q6HR PRN PRN Reason: Nausea And Vomiting Last Admin: 09/21/23 21:26 Dose: 4 mg Social history: Lives at [facility] Does use a motorized chair. Gets Meals on Wheels. Started smoking at the age of 13 stopped in 2011. 1 pack a day. No alcohol. Physical examination: VITAL SIGNS: 97.5, 88, 18, 132/84, 99% on 2 L GENERAL: Reclining in bed, tired EYES: Pupils equal. Conjunctiva mina l. HEENT: External appearance of nose and ears normal, oral cavity grossly normal NG tube to suction. NECK: JVD not raised; masses not palpable. HEART: Heart sounds are regular; no edema. LUNGS: Respiratory rate increased, decreased breath sounds ABDOMEN: Soft, non-tender, liver spleen not palpable, no masses palpable. PSYCH: Alert and oriented x3; mood and affect tired. MUSCULOSKELETAL:No Clubbing/cyanosis;muscles-grossly intact. OA INVESTIGATIONS, reviewed in the clinical context: September 22: Sodium 139 potassium 3.9 BUN 45 creatinine 1.61 September 20: Sodium 146 potassium 2.9 BUN 34 creatinine 1.33 September 17: Sodium 147 potassium 3.6 BUN 54 creatinine 1.76 Small bowel follow-through [September 16] findings consistent with SBO. September 15: White count 11.6 hemoglobin 12.4 platelets 194 sodium 144 potassium 4.6 BUN 35 creatinine 1.61 UA positive for blood. Leukoesterase. WBC clumps. Chest x-ray film personally reviewed by me-nonspecific CT scan abdomen pelvis: Distended gallbladder. No ductal dilatation. Large left adrenal mass likely adenoma. Right hydronephrosis with double-J pigtail urinary catheter in place. Multiple dilated loops of small bowel with a transition point in the pelvis. Diverticulosis of descending and sigmoid colon. EKG tracing personally reviewed by me-atrial fibrillation, rate 146 Previous investigations: 2D echocardiogram April 2023 EF 45 to 50% moderate to severe mitral regurgitation Assessment and plan: -Acute small bowel obstruction, history of 1 day. With nausea vomiting abdominal pain. Transition point in the pelvis.: Slow to respond NG tube to suction continues. General surgery-pending surgical intervention, when patient clinically more stable -Aspiration pneumonia: IV Zosyn -Known tortuous colon with a prior history of unsuccessful colonoscopy -Left anterior thigh burn secondary to hot coffee. Dressing in place. Local care -Severe colonic diverticulosis -History of vaginal bleeding in a patient with known uterine adenocarcinoma. - radiation treatment 2018. Apparently patient was lost to follow-up. Supposed to follow-up with Dr. Reina at [facility] -Chronic kidney disease stage III likely nephrosclerosis Creatinine 1.6 -Chronic congestive heart failure from diastolic dysfunction EF 55-60 % Follow clinically. -Moderate to severe mitral regurgitation -CAD with a history of stent Patient not taking any medications at home -Persistent atrial fibrillation, rate uncontrolled IV Cardizem drip Cardiology following Not a candidate of anticoagulation because of vaginal bleeding -Choledocholithiasis, asymptomatic -Large left adrenal mass likely adenoma -Moderate cognitive impairment from likely Alzheimer's dementia -Full code Continue IV Cardizem. NPO. NG tube. IV Zosyn. PICC line cannot be placed because of no vascular service/interventional radiology to place the same. Pending surgical intervention for the small bowel obstruction. Past Medical History Past Medical History: Atrial Fibrillation, Cancer, CVA/TIA, GI Bleed, Hyperlipidemia, Myocardial Infarction ([place]) Additional Past Medical History / Comment(s): 07/27/17 FALL'LT HIP FX. 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 History of COVID-19, cervical cancer treated with radiation. No taking Eliquis due to bleeding issues in past. Last Myocardial Infarction Date:: 2009 History of Any Multi-Drug Resistant Organisms: None Reported Past Surgical History: Heart Catheterization, Orthopedic Surgery, Tonsillectomy Additional Past Surgical History / Comment(s): ORIF RT ANKLE HAS PLATE. Past Anesthesia/Blood Transfusion Reactions: No Reported Reaction Past Psychological History: No Psychological Hx Reported Smoking Status: Former smoker, Never smoker Past Alcohol Use History: None Reported Past Drug Use History: None Reported
--- NOTE | 2023-09-23 18:04 | P.PN ---
Subjective Progress Note Date: 09/23/23 Principal diagnosis: Right hydronephrosis CT scan shows evidence of right hydronephrosis of indeterminate etiology. The right ureteral stent is properly positioned. The patient has a history of cervical cancer, treated with radiation therapy. She has dementia and is unaware that she has a right ureteral stent. I contacted the patient's son by phone, but he was also unaware she has a ureteral stent. I then contacted the patient's legal guardian and was told that she has not had anything urologic in nature done since they became her legal guardians in March 2023. I have been able to establish that she has been treated at [facility] in [place], and I will attempt to obtain relevant records. Objective - Vital Signs Vital signs: Vital Signs Temp 97.5 F L 09/23/23 08:23 Pulse 101 H 09/23/23 08:23 Resp 16 09/23/23 08:23 BP 130/74 09/23/23 08:23 Pulse Ox 95 09/23/23 08:23 FiO2 Intake & Output 09/22/23 09/23/23 09/23/23 18:59 06:59 18:59 Intake Total 102.5 111.833 118.167 Output Total 600 300 300 Balance -497.5 -188.167 -181.833 Intake: Intake, IV Titration 102.5 111.833 118.167 Amount Diltiazem 125 mg In 102.5 111.833 118.167 Sodium Chloride 0.9% 100 ml @ Per Protocol IV .Q0M [facility] Rx#:[id number] Output: Gastric Drainage 600 300 Urine 300 Other: Voiding Method Bedside Commode Bedside Commode Bedside Commode # Voids 2 - Constitutional General appearance: Present: average body habitus, cooperative - Labs CBC & Chem 7: 09/16/23 05:10 09/23/23 06:29 Labs: Abnormal Lab Results - Last 24 Hours (Table) 09/22/23 09/23/23 Range/Units 08:42 06:29 Chloride 108 H (98-107) mmol/L BUN 36 H 45 H (7-17) mg/dL Creatinine 1.56 H 1.61 H (0.52-1.04) mg/dL Glucose 139 H 141 H (74-99) mg/dL Assessment and Plan (1) Hydronephrosis Current Visit: No Status: Acute Priority: High Code(s): N13.30 - UNSPECIFIED HYDRONEPHROSIS SNOMED Code(s): 17783275 Plan: I will attempt to obtain patient records prior to making any formal recommen dations. It appears that the ureteral stent has been in place since at least March 2023, and is thus likely due to to be changed. However, her renal function is stable and I intend to defer any urologic intervention until her bowel obstruction has resolved and we have additional information available.
[2023-09-24 07:08] LABS: African American GFR (CKD) 43 (>60 ml/min/1.73 sqM); Anion Gap 8 mmol/L; Blood Urea Nitrogen 40 mg/dL (7-17); Calcium 8.4 mg/dL (8.4-10.2); Carbon Dioxide 23 mmol/L (22-30); Chloride 107 mmol/L (98-107); Glucose 92 mg/dL (74-99); Non-African American GFR(CKD) 38 (>60 ml/min/1.73 sqM); Potassium 3.6 mmol/L (3.5-5.1); Sodium 138 mmol/L (137-145)
[2023-09-24 07:12] LABS: HCT 31.1 % (34.0-46.0); Hypochromasia Slight; MCH 31.8 pg (25.0-35.0); MCHC 31.6 g/dL (31.0-37.0); MCV 100.4 fL (80.0-100.0); Macrocytosis Slight; Mean Platelet Volume 8.2; Platelet Count 186 k/uL (150-450); RBC 3.09 m/uL (3.80-5.40); RDW 14.1 % (11.5-15.5); WBC 8.5 k/uL (3.8-10.6)
[2023-09-24 07:18] LABS: HGB 9.8 gm/dL (11.4-16.0)
--- NOTE | 2023-09-24 11:29 | P.PN ---
Subjective Patient is seen in follow-up for acute kidney injury on chronic kidney disease. Renal function fairly stable. Remains on Cardizem drip for A-fib. NG tube noted. Denies abdominal pain. Has been voiding. Scheduled for surgery today. Vital signs are stable. General: No acute distress. HEENT: Head exam is unremarkable. NG tube noted. LUNGS: No audible rhonchi or wheezes. HEART: Rate and Rhythm are regular. ABDOMEN: Nontender. EXTREMITITES: No edema. Objective - Vital Signs Vital signs: Vital Signs Temp 97.5 F L 09/24/23 11:11 Pulse 84 09/24/23 11:11 Resp 18 09/24/23 11:11 BP 134/83 09/24/23 11:11 Pulse Ox 97 09/24/23 11:11 FiO2 Intake & Output 09/23/23 09/24/23 09/24/23 18:59 06:59 18:59 Intake Total 243.167 125 121.5 Output Total 300 550 200 Balance -56.833 -425 -78.5 Intake: IV 10 Invasive Line 5 10 Intake, IV Titration 243.167 125 111.5 Amount Diltiazem 125 mg In 243.167 125 111.5 Sodium Chloride 0.9% 100 ml @ Per Protocol IV .Q0M [facility] Rx#:[id number] Output: Gastric Drainage 550 Urine 300 200 Other: Voiding Method Bedside Commode Bedside Commode Bedside Commode # Voids 3 2 - Labs CBC & Chem 7: 09/24/23 06:30 09/24/23 06:30 Labs: Abnormal Lab Results - Last 24 Hours (Table) 09/24/23 09/24/23 Range/Units 06:30 06:30 RBC 3.09 L (3.80-5.40) m/uL Hgb 9.8 L D (11.4-16.0) gm/dL Hct 31.1 L (34.0-46.0) % MCV 100.4 H (80.0-100.0) fL BUN 40 H (7-17) mg/dL Creatinine 1.35 H (0.52-1.04) mg/dL Assessment and Plan Plan: Assessment: 1. Acute kidney injury secondary to vasomotor nephropathy from poor intake. Creatinine peaked at 1.76 this admission and stable at 1.[address] scan showed right-sided hydronephrosis. Patient has a right ureteral stent. Urology following. 2. Chronic kidney disease stage IIIb with baseline creatinine 1.5 secondary to nephrosclerosis. 3. Small bowel obstruction being followed by surgery. Currently has NG tube. Lysis of additions pending. 4. Hypernatremia from lack of oral water intake. Improved. 5. Hypokalemia from poor intake. Magnesium 1.6 today. Both replaced. 6. A-fib with RVR maintained on Cardizem drip. Cardiology following. Plan: Maintain IV fluids. Continue to monitor renal function and urine output. Replace potassium.
[2023-09-24] MEDS ORDERED: MAGNESIUM SULFATE-D5W PMX 1 GM in DEXTROSE/WATER 1 100ML.BAG IVPB SCH (11:30)
--- NOTE | 2023-09-24 11:48 | P.PN ---
Subjective Progress Note Date: 09/24/23 HISTORY OF PRESENT ILLNESS: This is a 78-year-old female with a past medical history significant for no nischemic cardiomyopathy, CVA, mitral regurgitation, and persistent atrial fibrillation. Patient follows in the office with Dr. [place]. We have been asked to see the patient in consultation for A-fib with RVR. Patient examined at the bedside. Patient initially presented to the hospital with a chief complaint of abdominal pain. She states she has been having abdominal pain for the past 2 to 3 days. She reports having multiple episodes of vomiting. Patient was found to have a small bowel obstruction. Patient has an NG tube in currently to low intermittent suction. She remains NPO. She continues to report abdominal pain at the time of examination. Patient was also found to be in A-fib with RVR. She was started on IV Cardizem which continues to infuse at 10 mg an hour. She is unable to take oral medications secondary to her acute abdominal issues. Patient is not anticoagulated on an outpatient basis due to history of vaginal bleeding per most recent office records from cardiology office. DIAGNOSTICS: - EKG reveals A-fib with RVR. - Chest xray negative for acute process. - Laboratory data: WBC 10.6. Hemoglobin 12.4. Platelet count 194. Sodium 144. Potassium 4.6. BUN 35. Creatinine 1.61. - Current home cardiac medications include none. - Most recent echocardiogram obtained in April 2023 revealed ejection fraction 45 to 50%, moderate pulmonary hypertension, moderate to severe MR, mild AR - Cardiac catheterization history: 2016 revealing normal coronary arteries 09/18/2023 Patient examined this morning at the bedside. Patient continues to be NPO. She has an NG tube to low intermittent suction. Telemetry reveals atrial fibrillation with controlled ventricular rate. She remains on IV Cardizem at 10 mg an hour as patient is unable to take oral medications. Blood pressure stable. 09/19/2023 Patient examined this morning at the bedside. Patient continues to be NPO. She has an NG tube to low intermittent suction. Telemetry reveals atrial fibrillation with controlled ventricular rate. She remains on IV Cardizem at 10 mg an hour as patient is unable to take oral medications. Blood pressure stable. 09/19 Patient has been maintained on Cardizem drip for rate control on persistent atrial fibrillation due to n.p.o. status. NG tube remains in place. Blood pressure is 147/95 and heart rate 117. Pulse ox 90% on 5 L nasal cannula. Repeat blood work reveals sodium 148, potassium 3.3, BUN 40 and creatinine 1.25. No medication changes made today. 09/20 Blood pressure 140/88, heart rate between 78 and 104, pulse ox 97% on 3 L nasal cannula. Patient is n.p.o. except for ice chips and medications. Patient states that she is feeling better today. Repeat blood work reveals sodium 146, potassium 2.9, BUN 34 creatinine 1.33. Potassium replacement has been ordered. 09/21 Patient is going for lysis of adhesions today. She remains n.p.o. and on Ca rdizem drip for heart rate control. Heart rate is running [id number]. She is to start TPN as well. 09/22 Yesterday surgery for lysis of adhesion was postponed until Wednesday to allow time to correct electrolytes. Consult was added for pulmonary medicine. Blood pressure 130/74, heart rate 101. She is currently on Cardizem drip at 10 mg/h. Patient is also starting TPN. NG tube remains in place. Repeat blood work reveals BUN 45 creatinine 1.61 patient is followed by nephrology. 09/23 Patient's heart rate is running in the 90s today. She remains on Cardizem drip at 15 mg/h. She is scheduled for lysis of adhesions today. Patient remains in atrial fibrillation. Blood pressure 117/70. Subsequently, patient's heart rate was in the 50s and Cardizem drip decreased to 10 mg/h. PHYSICAL EXAM: VITAL SIGNS: Reviewed. GENERAL: Well-developed in no acute distress. HEENT: Head is normocephalic. Pupils are equal, round. Sclerae anicteric. LUNGS: Respirations even and unlabored. Lungs essentially clear to auscultation bilaterally. HEART: Irregular rate and rhythm. S1 and S2 heard. 3/6 systolic murmur at the apex ABDOMEN: Soft. Tenderness with palpation. NGT noted to low intermittent suct ion EXTREMITIES: Normal range of motion. No clubbing or cyanosis. Peripheral pulses intact. No lower extremity edema NEUROLOGIC: Awake and alert. ASSESSMENT: Abdominal pain secondary to Small bowel obstruction, surgery scheduled for Wednesday Persistent atrial fibrillation with RVR, not anticoagulated on an outpatient basis secondary to significant vaginal bleeding History of nonischemic cardiomyopathy Normal coronary arteries, per cardiac catheterization 2017 Moderate pulmonary hypertension Moderate to severe mitral regurgitation History of CVA Acute kidney injury PLAN: Continue IV Cardizem while patient is n.p.o. Plan to transition patient to oral medications once diet is advanced following procedure Patient is not anticoagulated on outpatient basis secondary to history of significant vaginal bleeding No need to repeat echocardiogram as this was performed in April 2023 Continue telemetry monitoring Further recommendations pending patient course Nurse practitioner note has been reviewed by physician. Signing provider agrees with the documented findings, assessment, and plan of care documented by [employer] as a scribe. Objective - Vital Signs Vital signs: Vital Signs Temp 97.5 F L 09/24/23 03:46 Pulse 89 09/24/23 03:46 Resp 18 09/24/23 03:46 BP 146/85 09/24/23 03:46 Pulse Ox 99 09/24/23 03:46 FiO2 Intake & Output 09/23/23 09/24/23 09/24/23 18:59 06:59 18:59 Intake Total 243.167 125 Output Total 300 550 Balance -56.833 -425 Intake: Intake, IV Titration 243.167 125 Amount Diltiazem 125 mg In 243.167 125 Sodium Chloride 0.9% 100 ml @ Per Protocol IV .Q0M [facility] Rx#:[id number] Output: Gastric Drainage 550 Urine 300 Other: Voiding Method Bedside Commode Bedside Commode # Voids 3 2 - Labs CBC & Chem 7: 09/24/23 06:30 09/24/23 06:30 Labs: Abnormal Lab Results - Last 24 Hours (Table) 09/24/23 09/24/23 Range/Units 06:30 06:30 RBC 3.09 L (3.80-5.40) m/uL Hgb 9.8 L D (11.4-16.0) gm/dL Hct 31.1 L (34.0-46.0) % MCV 100.4 H (80.0-100.0) fL BUN 40 H (7-17) mg/dL Creatinine 1.35 H (0.52-1.04) mg/dL
[2023-09-24] MEDS: IV FLUID CONTINUATION 1,000 ML IV ONE (12:27)
[2023-09-24] MEDS: ONDANSETRON 4 MG/2 ML VIAL IVP ONE (13:04)
[2023-09-24] MEDS: DEXAMETHASONE SOD PHOSPHATE 4 MG/ML 1 ML VIAL IVP ONE (13:05)
--- NOTE | 2023-09-24 13:06 | XR ---
EXAMINATION TYPE: XR chest 1V confirm line [facility] DATE OF EXAM: 09/24/2023 COMPARISON: 09/21/2023 INDICATION: Central line placement TECHNIQUE: Single frontal view of the chest is obtained. FINDINGS: The heart size is enlarged. The pulmonary vasculature is normal. There may be a mild left lower lobe infiltrate. Follow-up is recommended. There is a PICC line entering on the left with the tip in the superior vena cava region. Nasogastric tube transverses the thorax with the tip in the left upper quadrant of the abdomen. Note is made of degenerative changes at the left shoulder. IMPRESSION: 1. Left lower lobe infiltrate. Correlate for pneumonia. Follow-up is recommended. 2. Cardiomegaly. 3. Left PICC line with tip in the superior vena cava region. 4. Nasogastric tube transverses the thorax.
[2023-09-24 13:22] LABS: Phosphorus 2.8 mg/dL (2.5-4.5)
[2023-09-24] MEDS ORDERED: NEOSTIGMINE 1 MG/ML 10 ML VIAL ONE (13:38)
[2023-09-24] MEDS ORDERED: PHENYLEPHRINE 10 MG/ML VIAL ONE (13:38)
[2023-09-24] MEDS ORDERED: LIDOCAINE 1% INJ 10MG/ML (20 ML MDV) ONE (13:38)
[2023-09-24] MEDS ORDERED: SUCCINYLCHOLINE CHLORIDE 200 MG/10 ML VIAL IV ONE (13:38)
[2023-09-24] MEDS ORDERED: PROPOFOL 10 MG/ML 20 ML VIAL IV ONE (13:38)
[2023-09-24] MEDS ORDERED: fentaNYL (PF) 50 MCG/ML 2 ML AMP ONE (13:38)
[2023-09-24] MEDS ORDERED: GLYCOPYRROLATE 0.2 MG/ML 2 ML VIAL ONE (13:38)
[2023-09-24] MEDS ORDERED: ROCURONIUM 10 MG/ML (5 ML VIAL) IV ONE (13:38)
[2023-09-24] MEDS: LACTATED RINGERS 1,000 ML IV ONE ×2 (14:17→15:51)
[2023-09-24] MEDS: LIDOCAINE 1%-EPI 1:100,000 20 ML VIAL SQ ONE (14:22)
--- NOTE | 2023-09-24 15:12 | P.PCN ---
Date of Procedure: 09/24/23 Operative Findings: Central Line Procedure Note Central Line Location: [] Right or [x ] Left [_] Internal Jugular Vein or [x_] Subclavian Vein or [_] Femoral Vein Consent: [x ] Consent was obtained from prior to the procedure. Indications, risks and benefits were discussed prior to the procedure. [ ] The procedure was performed emergently and the permission was implied because of the emergent nature. The [facility] Central Line Insertion Practices form was completed during and immediately following the procedure. A time out was performed. My hands were washed immediately prior to the procedure. I wore a surgical cap, mask with protective eyewear, full gown and sterile gloves throughout the procedure. The patient was placed in Trendelenburg position. The Left chest was prepped using chlorhexidine scrub and draped in sterile fashion using a three quarter sheet drape and sterile towels. Skin preparation was allowed to dry prior to skin puncture. Anatomic landmarks were identified. Anesthesia was achieved over the vein using 1% lidocaine. The introducer needle was inserted into the vein. Venous blood was withdrawn. The syringe was removed and a guidewire was advanced into the introducer needle. A small incision was made at the skin surface with a scalpel and the introducer needle was exchanged for a dilator over the guidewire. After appropriate dilation was obtained, the dilator was exchanged over the wire for an antimicrobial coated central venous catheter. The wire was removed and the catheter was sutured in place . A biopatch was placed at the insertion site. A sterile op-site was placed over the catheter and biopatch. The patient tolerated the procedure without any hemodynamic compromise. At time of procedure completion, all ports aspirated and flushed properly.
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
--- NOTE | 2023-09-24 17:01 | P.OP ---
Date of Procedure: 09/24/23 Description of Procedure: SURGEON: JAIME SIDDIQUI MD PREOPERATIVE DIAGNOSES: 1. Small bowel obstruction 2. Atrial fibrillation, chronic 3. Bibasilar infiltrates 4. Cardiomegaly 5. History of GI bleed 6. History of myocardial infarction 7. Hyperlipidemia 8. History of cerebrovascular accident 9. History of cervical cancer 10. Anemia 11. Diabetes type 2, [id number] 12. 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 Gallstones 14. Moderate to severe protein malnutrition due to inadequate oral intake 15. Dementia POSTOPERATIVE DIAGNOSES: 1. 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 Atrial fibrillation with rapid ventricular response 3. Bibasilar infiltrates 4. Cardiomegaly 5. History of GI bleed 6. History of myocardial infarction 7. Hyperlipidemia 8. History of cerebrovascular accident 9. History of cervical cancer 10. Anemia 11. Diabetes type 2, [id number] 12. 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 Abdominal ascites 15. Severe dehydration 16. Gallstones 17. Moderate to severe protein malnutrition due to inadequate oral intake 18. Dementia OPERATION: 1. Robotic-assisted da Radha Xi laparoscopic decompressive enterostomy with closure small bowel, proximal ileum 2. Robotic-assisted da Radha Xi laparoscopic small bowel external bypass proximal ileum to mid ileum ANESTHESIA: GETA, local ESTIMATED BLOOD LOSS: 20 mL SPECIMENS REMOVED: 1. Small bowel enterostomy, proximal ileum 2. Aerobic anaerobic culture small bowel enterostomy 3. Cell cytology peritoneal fluid 4. Small bowel anastomosis 5. Ovarian mass Operative Findings: 1. Singular moderately dilated small bowel from the upper abdomen to lower abdomen proximal ileum over 6 cm dilated and decompressed 2. Frozen pelvis involving bilateral ovaries and uterus incorporating proximal ileum with complete obstruction without ischemia 3. Distal small bowel, mid to distal ileum within normal limits completely d ecompressed 4. Frozen bilateral ovarian masses involving uterus with tissue biopsy obtained at frozen abdomen and small bowel intestinal obstruction 5. Due to frozen abdomen, intestinal bypass involving proximal ileum to mid ileum performed 6. Four trocars used for procedure including 12 mm trocars for bowel resection 7. Severe dehydration identified with placement of Crockett catheter IntraOp dark tea colored urine 8. Intraoperative atrial fibrillation with rapid ventricular response monitored with stable blood pressure INDICATIONS: The patient is a 78-year-old female who presents without any prior history of abdominal surgeries. She denied any abdominal pain. She presented with bowel obstruction. Initial CT scan was performed with a follow-up small bowel follow-through which at the time excluded bowel obstruction. Clinically the patient did not improve. Diagnostic studies demonstrated persistent bowel obstruction. Due to her no prior abdominal surgeries, diagnostic laparoscopy approach was described over open laparotomy. Patient had severe hypokalemia including kidney injury and new pulmonary condition that were optimized prior to surgical intervention. Central line was placed on the floor earlier today by pulmonary team for TPN. Benefits and risks of procedure were described to patient. Informed consent was obtained by her legal guardian. DESCRIPTION: The patient was brought into the operating room. She had received heparin via subcutaneous administration. After general induction, the abdomen was prepped and draped in standard sterile fashion. Ioban draping was placed along the abdomen. A robotic da Radha Xi system was prepped and primed. Prior to incision, a timeout protocol was confirmed including antibiotics and DVT prophylaxis. A 5 mm 0 degrees laparoscopic trocar entry was performed along the left upper quadrant. The abdomen was insufflated to 15 mmHg pressure that she initially tolerated well. She then went into atrial fibrillation with rapid ventricular response with stable blood pressure. Prior to proceeding, Crockett catheter was placed. Dark tea colored urine was identified consistent with severe dehydration. Cautious volume replacement was performed per anesthesia. Diagnostic laparoscopy demonstrated no injury to bowel, viscera, or mesentery upon laparoscopic trocar entry. The small bowel was moderately dilated prohibiting much space within the abdomen. The patient was tilted in Trendelenburg position 7 degrees to allow for additional visualization. A 12 mm robotic trocar was placed along the left lateral abdominal wall and two 8 mm robotic trocars were placed 9 cm apart along the upper abdomen 20 cm from the pelvis. The robot was docked over the patient. Instruments were interchanged by the research assistant member including hook cautery, the needle professional driver, vessel sealer and stapler. I had sat at the console. Limited visualization was obtained due to moderately distended small bowel. A pursestring 3-0 silk was placed at the moderately dilated bowel of approximately 6 cm was traversed from the upper abdomen to the lower abdomen. A stay suture of 3-0 silk suture was placed along the antimesenteric border. Hook cautery was used to create a enterostomy. Robotic suction special projects coordinator was used to decompress the small bowel of air and enteric contents. Visualization was obtained. Pursestring suture was closed and clipped using plastic clip validation manager large. I rescrubbed into the case and placed a 12 mm robotic trocar along the right lateral abdominal wall. Using robotic 60 mm white staple load, the enterostomy was closed. Aerobic anaerobic cultures were obtained of the enterostomy site and sent for cultures. Specimen was also sent of the small bowel enterostomy. Next attention was brought to investigating the small intestine time. Ascites was found with peritoneal fluid sent for cell cytology. The small bowel was investigated from the ileocecal valve where completely decompressed small bowel was found of the mid to distal ileum. The ascending colon and hepatic flexure were unremarkable. No peritoneal studding was identified. The decompressed small bowel was investigated proximally where the adhesion was found. Frozen pelvis with small bowel adherent to ovarian mass was confirmed. The adhesions and small bowel had melted with each other without clear planes. Findings is suspicious for malignancy. Next proximally dilated bowel was identified. Due to the findings of frozen abdomen, intestinal bypass was performed. The dilated small bowel consistent with the proximal ileum and mid ileum were tacked together using 3-0 silk. Enterostomy along the antimesenteric borders were performed using hook cautery. Robotic 60 mm blue staple load was fired to create a new lumen. The enterotomies were closed using similar staple load. The anastomosis was sent for further pathological analysis. Specimen of the ovarian mass was taken using hook artery. Hemostasis was checked with hook artery and vessel sealer. All instruments and pneumoperitoneum was evacuated from the abdominal cavity. All trocar sites were explored where fascial defect were less than 8 mm in size. Incisions were closed using 4-0 Monocryl. Hydrogen peroxide was applied along all incisions to minimize infection. Exofin glue was applied to all incisions. Moderate subcutaneous emphysema of the thighs, abdomen, chest, neck and face were found where extubation immediately after surgery was delayed. As the patient had atrial fibrillation with rapid ventricular response during surgery including tenuous course, patient was taken to the intensive care unit after being stabilized in the postanesthesia care unit.
[2023-09-24] MEDS ORDERED: Magnesium Replacement Protocol 1 EACH MISC MISCELLANE PRN (17:12)
[2023-09-24] MEDS ORDERED: Potassium Replacement Protocol 1 EACH MISC MISCELLANE PRN (17:12)
[2023-09-24] MEDS ORDERED: Phosphorus Replacement Protoco 1 EACH MISC MISCELLANE PRN (17:12)
[2023-09-24] MEDS: MIDAZOLAM 2 MG/2 ML VIAL IVP ONE (17:33)
[2023-09-24 17:47] LABS: Glucose,Whole Blood 129 mg/dL (70-110)
--- NOTE | 2023-09-24 17:50 | XR ---
EXAMINATION TYPE: XR chest 1V portable DATE OF EXAM: 09/24/2023 5:33 PM CLINICAL INDICATION:Female, 78 years old with history of line placement; [facility] COMPARISON: Chest radiographs from 09/24/2023. TECHNIQUE: XR chest 1V portable Frontal view of the chest. FINDINGS: Lungs/Pleura: There is no evidence of pleural effusion, focal consolidation, or pneumothorax. Pulmonary vascularity: Unremarkable. Heart/mediastinum: Cardiomediastinal silhouette is unremarkable. Musculoskeletal: Degenerative changes of the shoulder joints. Other findings: Subcutaneous emphysema scattered throughout the visualized thorax bilaterally and rig ht neck. Lines/Tubes: Endotracheal tube with distal tip 6.7 cm above the leanna. Nasogastric tube with side-port projecting over the distal esophagus. Left internal jugular central venous catheter with distal tip at the superior vena cava brachiocephal ic vein junction. IMPRESSION: New subcutaneous gas along the bilateral chest toure and right neck correlate for barotrauma. Left central venous catheter with tip terminating at the superior vena cava. Nasogastric tube with side-port terminating in the distal esophagus consider advancement 10 cm for op timal placement.
[2023-09-24] MEDS: SODIUM CHLORIDE 0.9% 1,000 ML IV ONE (18:00)
[2023-09-24 18:12] LABS: Basophils % (A) 0 %; Eosinophils # (A) 0.1 k/uL (0-0.7); Eosinophils % (A) 1 %; HCT 33.3 % (34.0-46.0); HGB 10.3 gm/dL (11.4-16.0); Hypochromasia Marked; Lymphocytes # (A) 0.4 k/uL (1.0-4.8); Lymphocytes % (A) 4 %; MCH 31.8 pg (25.0-35.0); MCHC 30.9 g/dL (31.0-37.0); MCV 102.9 fL (80.0-100.0); Macrocytosis Slight; Mean Platelet Volume 8.1; Monocytes # (A) 0.1 k/uL (0-1.0); Monocytes % (A) 1 %; Neutrophils # (A) 9.3 k/uL (1.3-7.7); Neutrophils % (A) 94 %; Platelet Count 207 k/uL (150-450); RBC 3.24 m/uL (3.80-5.40); WBC 9.9 k/uL (3.8-10.6)
[2023-09-24] MEDS: ACETAMINOPHEN IV (For NPO) 1,000 MG in EMPTY BAG 1 BAG IVPB ONE (18:21)
[2023-09-24 18:22] LABS: ALT 17 U/L (4-34); AST 28 U/L (14-36); African American GFR (CKD) 40 (>60 ml/min/1.73 sqM); Albumin 2.5 g/dL (3.5-5.0); Alkaline Phosphatase 43 U/L (38-126); Anion Gap 11 mmol/L; Blood Urea Nitrogen 37 mg/dL (7-17); Carbon Dioxide 16 mmol/L (22-30); Chloride 112 mmol/L (98-107); Glucose 131 mg/dL (74-99); Magnesium 1.9 mg/dL (1.6-2.3); Non-African American GFR(CKD) 34 (>60 ml/min/1.73 sqM); Potassium 4.2 mmol/L (3.5-5.1); Sodium 139 mmol/L (137-145); Total Bilirubin 1.4 mg/dL (0.2-1.3); Total Protein 4.8 g/dL (6.3-8.2)
[2023-09-24] MEDS: LACTATED RINGERS 1,000 ML IV SCH (18:22)
[2023-09-24] MEDS: propofoL 100 ML IV ONE (18:23)
--- NOTE | 2023-09-24 18:31 | XR ---
EXAMINATION TYPE: XR chest 1V portable DATE OF EXAM: 09/24/2023 6:13 PM CLINICAL INDICATION:Female, 78 years old with history of Tube placement; [facility] COMPARISON: Chest radiographs from same day TECHNIQUE: XR chest 1V portable Frontal view of the chest. FINDINGS/IMPRESSION: 1. Nasogastric tube in appropriate position. 2. Endotracheal tube in appropriate position. 3. Left central venous catheter with tip in appropriate position. 4. Diffuse subcutaneous gas throughout the chest wall and Neck correlate for barotrauma.
[2023-09-24] MEDS: NOREPINEPHRINE 4 MG in SODIUM CHLORIDE 0.9% 250 ML IV SCH (18:32)
[2023-09-24] MEDS: MVI, ADULT NO.4 WITH VIT K 10 ML, TRACE (CONC-1ML/DOSE) 1 ML in AMINO ACID 5%-D20W+LYTE... IV SCH (19:03)
[2023-09-24] MEDS: POTASSIUM CHLORIDE 20 MEQ in WATER FOR INJECTION 1 100ML.BAG IVPB ONE (19:05)
[2023-09-24] MEDS ORDERED: DEXTROSE 50% SYRINGE 50 ML IVP PRN ×2 (19:08)
[2023-09-24 19:12] LABS: Appearance,Urine Cloudy (Clear); Bilirubin,Urine Negative (Negative); Blood,Urine Moderate (Negative); Color,Urine Light Red; Glucose,Urine (UA) Negative (Negative); Ketones,Urine 1+ (Negative); Leukocyte Esterase,Urine Moderate (Negative); Nitrite,Urine Negative (Negative); Protein,Urine 2+ (Negative); RBC,Urine >182 /hpf (0-5); Specific Gravity,Urine 1.018 (1.001-1.035); Urobilinogen,Urine <2.0 mg/dL (<2.0); WBC,Urine 65 /hpf (0-5)
[2023-09-24 21:11] LABS: Glucose,Whole Blood 173 mg/dL (70-110)
[2023-09-24] MEDS: INSULIN ASPART (NovoLOG) 100 UNIT/ML VIAL SQ SCH (21:15)
[2023-09-24] MEDS: CHLORHEXIDINE GLUCONATE 15 ML CUP MUCOUS MEM SCH (21:16)
[2023-09-24] MEDS: MORPHINE SULFATE 2 MG/ML SYRINGE IV PRN (23:33)
[2023-09-25 00:49] LABS: Glucose,Whole Blood 247 mg/dL (70-110)
[2023-09-25] MEDS: SODIUM CHLORIDE 0.9% 500 ML 500 ML IV ONE (03:57)
[2023-09-25 04:11] LABS: Glucose,Whole Blood 262 mg/dL (70-110)
[2023-09-25 05:23] LABS: Basophils % (A) 0 %; Eosinophils % (A) 0 %; HCT 31.1 % (34.0-46.0); HGB 9.4 gm/dL (11.4-16.0); Hypochromasia Moderate; Lymphocytes # (A) 0.3 k/uL (1.0-4.8); Lymphocytes % (A) 3 %; MCHC 30.2 g/dL (31.0-37.0); MCV 102.5 fL (80.0-100.0); Macrocytosis Slight; Mean Platelet Volume 8.7; Monocytes # (A) 0.3 k/uL (0-1.0); Monocytes % (A) 3 %; Neutrophils # (A) 10.7 k/uL (1.3-7.7); Neutrophils % (A) 94 %; Platelet Count 169 k/uL (150-450); RBC 3.04 m/uL (3.80-5.40); RDW 14.1 % (11.5-15.5); WBC 11.4 k/uL (3.8-10.6)
[2023-09-25 05:39] LABS: African American GFR (CKD) 36 (>60 ml/min/1.73 sqM); Anion Gap 14 mmol/L; Blood Urea Nitrogen 40 mg/dL (7-17); Calcium 7.9 mg/dL (8.4-10.2); Carbon Dioxide 14 mmol/L (22-30); Chloride 110 mmol/L (98-107); Glucose 264 mg/dL (74-99); Magnesium 1.9 mg/dL (1.6-2.3); Non-African American GFR(CKD) 31 (>60 ml/min/1.73 sqM); Phosphorus 3.5 mg/dL (2.5-4.5); Potassium 4.4 mmol/L (3.5-5.1); Sodium 138 mmol/L (137-145)
[2023-09-25 05:59] LABS: ABG Base Excess -7.9 mmol/L; ABG HCO3 16 mmol/L (21-25); ABG PCO2 23 mmHg (35-45); ABG PH 7.45 (7.35-7.45); ABG PO2 128 mmHg (83-108); ABG TCO2 17 mmol/L (19-24); Allen Test Performed? Yes
[2023-09-25 08:05] LABS: Glucose,Whole Blood 297 mg/dL (70-110)
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
--- NOTE | 2023-09-25 09:35 | P.PN ---
Subjective Patient is seen in follow-up for acute kidney injury on chronic kidney disease. Renal function fairly stable. Remains on Cardizem drip for A-fib. Intubated. Has been voiding.. Underwent abdominal pain laparoscopic decompressive enterostomy with closure of small bowel yesterday. Vital signs are stable. General: No acute distress. HEENT: Intubated. LUNGS: No audible rhonchi or wheezes. HEART: Rate and Rhythm are regular. ABDOMEN: Nontender. EXTREMITITES: No edema. Objective - Vital Signs Vital signs: Vital Signs Temp 97.4 F L 09/25/23 08:00 Pulse 80 09/25/23 08:30 Resp 24 09/25/23 08:30 BP 137/88 09/25/23 08:30 Pulse Ox 100 09/25/23 08:30 FiO2 40 09/25/23 08:00 Intake & Output 09/24/23 09/25/23 09/25/23 18:59 06:59 18:59 Intake Total 1037.22 4071.555 484.228 Output Total 480 320 80 Balance 557.22 3751.555 404.228 Weight 68.538 kg Intake: IV 910 2600 400 ACETAMINOPHEN IV (For NPO 100 ) 1,000 mg In Empty Bag 1 bag @ 400 mls/hr IVPB ONCE [facility] Rx#:[id number] Invasive Line 5 10 Lactated Ringers 1,000 ml 150 1500 300 @ 150 mls/hr IV .Q6H40M [facility] Rx#:[id number] Piperacillin-Tazobactam 3 100 100 .375 gm In Sodium Chloride 0.9% 100 ml @ 25 mls/hr IVPB Q8H [facility] Rx#: [id number] Sodium Chloride 0.9% 1, 1000 000 ml @ 999 mls/hr IV . Q1H1M [facility] Rx#:[id number] Intake, IV Titration 127.22 1141.555 24.228 Amount Diltiazem 125 mg In 125.0 13.167 Sodium Chloride 0.9% 100 ml @ Per Protocol IV .Q0M [facility] Rx#:[id number] Lactated Ringers 1,000 ml 450 @ 150 mls/hr IV .Q6H40M [facility] Rx#:[id number] Norepinephrine 4 mg In 2.22 60.363 Sodium Chloride 0.9% 250 ml @ 0.03 MCG/KG/MIN 7. 834 mls/hr IV .Q24H [facility] Rx#:[id number] Sodium Chloride 0.9% 500 500 ml 500 ml @ 999 mls/hr IV .Q31M [facility] Rx#:[id number] propofoL 1,000 mg In 118.025 24.228 Empty Bag 1 bag @ 15 MCG/ KG/MIN 6.168 mls/hr IV . [id number] [facility] Rx#:[id number] TPN/PPN 330 60 Mvi, Adult No.4 with Vit 330 60 K 10 ml Trace (Conc-1Ml/ Dose) 1 ml In Amino Acid 5%-D20w+Lytes*E* 1,000 ml @ 30 mls/hr IV .Q24H [facility] Rx#:[id number] Output: Urine 460 320 80 Estimated Blood Loss 20 Other: Voiding Method Bedside Commode Indwelling Catheter - Labs CBC & Chem 7: 09/25/23 04:43 09/25/23 04:43 Labs: Abnormal Lab Results - Last 24 Hours (Table) 09/24/23 09/24/23 09/24/23 Range/Units 17:46 17:56 17:56 WBC (3.8-10.6) k/uL RBC 3.24 L (3.80-5.40) m/uL Hgb 10.3 L (11.4-16.0) gm/dL Hct 33.3 L (34.0-46.0) % MCV 102.9 H (80.0-100.0) fL MCHC 30.9 L (31.0-37.0) g/dL Neutrophils # 9.3 H (1.3-7.7) k/uL Lymphocytes # 0.4 L (1.0-4.8) k/uL ABG pCO2 (35-45) mmHg ABG pO2 (83-108) mmHg ABG HCO3 (21-25) mmol/L ABG Total CO2 (19-24) mmol/L ABG O2 Saturation (94-97) % Chloride 112 H (98-107) mmol/L Carbon Dioxide 16 L (22-30) mmol/L BUN 37 H (7-17) mg/dL Creatinine 1.45 H (0.52-1.04) mg/dL Glucose 131 H (74-99) mg/dL POC Glucose (mg/dL) 129 H (70-110) mg/dL Calcium 8.0 L (8.4-10.2) mg/dL Total Bilirubin 1.4 H (0.2-1.3) mg/dL Total Protein 4.8 L (6.3-8.2) g/dL Albumin 2.5 L (3.5-5.0) g/dL Urine Appearance (Clear) Urine Protein (Negative) Urine Ketones (Negative) Urine Blood (Negative) Ur Leukocyte Esterase (Negative) Urine RBC (0-5) /hpf Urine WBC (0-5) /hpf 09/24/23 09/24/23 09/24/23 Range/Units 17:56 18:45 21:10 WBC (3.8-10.6) k/uL RBC (3.80-5.40) m/uL Hgb (11.4-16.0) gm/dL Hct (34.0-46.0) % MCV (80.0-100.0) fL MCHC (31.0-37.0) g/dL Neutrophils # (1.3-7.7) k/uL Lymphocytes # (1.0-4.8) k/uL ABG pCO2 (35-45) mmHg ABG pO2 (83-108) mmHg ABG HCO3 (21-25) mmol/L ABG Total CO2 (19-24) mmol/L ABG O2 Saturation (94-97) % Chloride (98-107) mmol/L Carbon Dioxide (22-30) mmol/L BUN (7-17) mg/dL Creatinine (0.52-1.04) mg/dL Glucose (74-99) mg/dL POC Glucose (mg/dL) 173 H (70-110) mg/dL Calcium 8.1 L (8.4-10.2) mg/dL Total Bilirubin (0.2-1.3) mg/dL Total Protein (6.3-8.2) g/dL Albumin (3.5-5.0) g/dL Urine Appearance Cloudy H (Clear) Urine Protein 2+ H (Negative) Urine Ketones 1+ H (Negative) Urine Blood Moderate H (Negative) Ur Leukocyte Esterase Moderate H (Negative) Urine RBC >182 H (0-5) /hpf Urine WBC 65 H (0-5) /hpf 09/25/23 09/25/23 09/25/23 Range/Units 00:47 04:10 04:43 WBC (3.8-10.6) k/uL RBC (3.80-5.40) m/uL Hgb (11.4-16.0) gm/dL Hct (34.0-46.0) % MCV (80.0-100.0) fL MCHC (31.0-37.0) g/dL Neutrophils # (1.3-7.7) k/uL Lymphocytes # (1.0-4.8) k/uL ABG pCO2 (35-45) mmHg ABG pO2 (83-108) mmHg ABG HCO3 (21-25) mmol/L ABG Total CO2 (19-24) mmol/L ABG O2 Saturation (94-97) % Chloride 110 H (98-107) mmol/L Carbon Dioxide 14 L (22-30) mmol/L BUN 40 H (7-17) mg/dL Creatinine 1.58 H (0.52-1.04) mg/dL Glucose 264 H (74-99) mg/dL POC Glucose (mg/dL) 247 H 262 H (70-110) mg/dL Calcium 7.9 L (8.4-10.2) mg/dL Total Bilirubin (0.2-1.3) mg/dL Total Protein (6.3-8.2) g/dL Albumin (3.5-5.0) g/dL Urine Appearance (Clear) Urine Protein (Negative) Urine Ketones (Negative) Urine Blood (Negative) Ur Leukocyte Esterase (Negative) Urine RBC (0-5) /hpf Urine WBC (0-5) /hpf 09/25/23 09/25/23 09/25/23 Range/Units 04:43 05:51 08:04 WBC 11.4 H (3.8-10.6) k/uL RBC 3.04 L (3.80-5.40) m/uL Hgb 9.4 L (11.4-16.0) gm/dL Hct 31.1 L (34.0-46.0) % MCV 102.5 H (80.0-100.0) fL MCHC 30.2 L (31.0-37.0) g/dL Neutrophils # 10.7 H (1.3-7.7) k/uL Lymphocytes # 0.3 L (1.0-4.8) k/uL ABG pCO2 23 L (35-45) mmHg ABG pO2 128 H (83-108) mmHg ABG HCO3 16 L (21-25) mmol/L ABG Total CO2 17 L (19-24) mmol/L ABG O2 Saturation 99.0 H (94-97) % Chloride (98-107) mmol/L Carbon Dioxide (22-30) mmol/L BUN (7-17) mg/dL Creatinine (0.52-1.04) mg/dL Glucose (74-99) mg/dL POC Glucose (mg/dL) 297 H (70-110) mg/dL Calcium (8.4-10.2) mg/dL Total Bilirubin (0.2-1.3) mg/dL Total Protein (6.3-8.2) g/dL Albumin (3.5-5.0) g/dL Urine Appearance (Clear) Urine Protein (Negative) Urine Ketones (Negative) Urine Blood (Negative) Ur Leukocyte Esterase (Negative) Urine RBC (0-5) /hpf Urine WBC (0-5) /hpf Assessment and Plan Plan: Assessment: 1. Acute kidney injury secondary to vasomotor nephropathy from poor intake. Creatinine peaked at 1.76 this admission and stable at 1.[address] scan showed right-sided hydronephrosis. Patient has a right ureteral stent. Urology following. 2. Chronic kidney disease stage IIIb with baseline creatinine 1.5 secondary to nephrosclerosis. 3. Small bowel obstruction being followed by surgery. Status post laparoscopic decompressive enterostomy with closure of small bowel and proximal ileum September 24, 2023. 4. Hypernatremia from lack of oral water intake. Improved. 5. Hypokalemia from poor intake. Improved. 6. A-fib with RVR maintained on Cardizem drip. Cardiology following. 7. Metabolic acidosis secondary to acute kidney injury and IV fluids. Plan: Maintain IV fluids - change to isotonic bicarb drip. Patient to also receive 2 A of sodium bicarb IV push. Wean FiO2. Continue to monitor renal function and urine output. Case discussed with alemite operator.
[2023-09-25 10:02] LABS: Cancer Antigen 19-9 <4.0 U/mL (0.0-34.9)
[2023-09-25 10:03] LABS: Alpha Fetoprotein, Tumor Mkr <3.00 ng/mL (0.00-7.90); Cancer Antigen 125 75.5 U/mL (0.0-30.1); Cancer Antigen 153 63.4 U/mL (0.0-32.3)
[2023-09-25] MEDS: SODIUM BICARB 8.4% 50 ML SYR (1 MEQ/ML) IV STA (10:06)
[2023-09-25] MEDS: DEXTROSE 5% IN WATER 1,000 ML with SODIUM BICARB (1 MEQ/ML) 150 ML IV SCH (10:55)
[2023-09-25 11:54] LABS: Glucose,Whole Blood 367 mg/dL (70-110)
--- NOTE | 2023-09-25 12:09 | XR ---
EXAM: XR chest 1V portable CLINICAL INDICATION:Female, 78 years old with history of Tube placement; [facility] COMPARISON: None. TECHNIQUE: Chest single view. FINDINGS: Lines/tubes/devices: ET tube, left subclavian central venous line, NG tube extending into the abdomen and beyond the field of view, all appear unchanged. Monitor leads over the chest. Cardiomediastinum: Cardiac silhouette appears stable upper normal in size Stable mediastinal silhouette. Vasculature: No increased pulmonary vasculature. Lungs/pleura: Scattered chronic senescent parenchymal changes. Small pleural/parenchymal opacity in the left lung b ase again noted. Right costophrenic angle is relatively well-defined. No visualized pneumothorax. Bones/soft tissues: No acute osseous pathology evident. Mild/moderate diffuse soft tissue emphysema appears relatively de creased IMPRESSION: 1. Lines and tubes in place, as above. 2. Lungs appear stable with small pleural/parenchymal opacity in the left lung base. 3. Mild/moderate diffuse soft tissue emphysema appears relatively decreased.
--- NOTE | 2023-09-25 13:05 | P.PN ---
Subjective Progress Note Date: 09/25/23 The patient is a 78-year-old female who presented to the hospital with abdominal discomfort. She was found to have a small bowel obstruction and underwent surgery yesterday with Dr. Humphrey. Cardiology has been consulted while inpatient for A-fib with RVR. She is currently rate controlled on IV Cardizem as she is NPO. GENERAL: Ill-appearing, well-nourished and in no acute distress. Sedated on ventilator NECK: Supple without JVD or thyromegaly. LUNGS: Breath sounds diminished to auscultation bilaterally. Respiration equal and unlabored. No wheezes, rales or rhonchi. HEART: Irregular rate and rhythm without murmurs, rubs or gallops. S1 and S2 heard. EXTREMITIES: Normal range of motion. +1 generalized edema no clubbing or cyanosis. Peripheral pulses intact and strong. TELEMETRY: Persistent atrial fibrillation with heart rates in the 90s IMPRESSION: Abdominal pain secondary to Small bowel obstruction status post laparoscopic decompressive enterostomy with closure of small bowel and proximal ileum and small bowel external bypass Persistent atrial fibrillation with RVR, not anticoagulated on an outpatient basis secondary to significant vaginal bleeding History of nonischemic cardiomyopathy Normal coronary arteries, per cardiac catheterization 2017 Moderate pulmonary hypertension Moderate to severe mitral regurgitation History of CVA Acute kidney injury PLAN: Continue supportive treatment and wean from ventilator Continue Cardizem drip Further recommendations to be based upon clinical course I am dictating on behalf of Dr Tristin Montana's history/physical and assessment/plan. Objective - Vital Signs Vital signs: Vital Signs Temp 97.4 F L 09/25/23 08:00 Pulse 79 09/25/23 11:30 Resp 18 09/25/23 11:30 BP 143/84 09/25/23 11:30 Pulse Ox 100 09/25/23 11:30 FiO2 40 09/25/23 11:20 Intake & Output 09/24/23 09/25/23 09/25/23 18:59 06:59 18:59 Intake Total 1037.22 4071.555 1099.228 Output Total 480 320 170 Balance 557.22 3751.555 929.228 Weight 68.538 kg Intake: IV 910 2600 925 ACETAMINOPHEN IV (For NPO 100 ) 1,000 mg In Empty Bag 1 bag @ 400 mls/hr IVPB ONCE [facility] Rx#:[id number] Dextrose 5% in Water 1, 125 000 ml @ 125 mls/hr IV . Q9H12M [facility] with Sodium Bicarb (1 Meq/ml) 150 ml Rx#:[id number] Invasive Line 5 10 Lactated Ringers 1,000 ml 150 1500 600 @ 150 mls/hr IV .Q6H40M [facility] Rx#:[id number] Piperacillin-Tazobactam 3 100 200 .375 gm In Sodium Chloride 0.9% 100 ml @ 25 mls/hr IVPB Q8H [facility] Rx#: [id number] Sodium Chloride 0.9% 1, 1000 000 ml @ 999 mls/hr IV . Q1H1M [facility] Rx#:[id number] Intake, IV Titration 127.22 1141.555 24.228 Amount Diltiazem 125 mg In 125.0 13.167 Sodium Chloride 0.9% 100 ml @ Per Protocol IV .Q0M [facility] Rx#:[id number] Lactated Ringers 1,000 ml 450 @ 150 mls/hr IV .Q6H40M [facility] Rx#:[id number] Norepinephrine 4 mg In 2.22 60.363 Sodium Chloride 0.9% 250 ml @ 0.03 MCG/KG/MIN 7. 834 mls/hr IV .Q24H [facility] Rx#:[id number] Sodium Chloride 0.9% 500 500 ml 500 ml @ 999 mls/hr IV .Q31M [facility] Rx#:[id number] propofoL 1,000 mg In 118.025 24.228 Empty Bag 1 bag @ 15 MCG/ KG/MIN 6.168 mls/hr IV . [id number] [facility] Rx#:[id number] TPN/PPN 330 150 Mvi, Adult No.4 with Vit 330 150 K 10 ml Trace (Conc-1Ml/ Dose) 1 ml In Amino Acid 5%-D20w+Lytes*E* 1,000 ml @ 30 mls/hr IV .Q24H [facility] Rx#:[id number] Output: Urine 460 320 170 Estimated Blood Loss 20 Other: Voiding Method Bedside Commode Indwelling Catheter Indwelling Catheter - Labs CBC & Chem 7: 09/25/23 04:43 09/25/23 04:43 Labs: Abnormal Lab Results - Last 24 Hours (Table) 09/24/23 09/24/2324 Range/Units 17:46 17:56 17:56 WBC (3.8-10.6) k/uL RBC 3.24 L (3.80-5.40) m/uL Hgb 10.3 L (11.4-16.0) gm/dL Hct 33.3 L (34.0-46.0) % MCV 102.9 H (80.0-100.0) fL MCHC 30.9 L (31.0-37.0) g/dL Neutrophils # 9.3 H (1.3-7.7) k/uL Lymphocytes # 0.4 L (1.0-4.8) k/uL ABG pCO2 (35-45) mmHg ABG pO2 (83-108) mmHg ABG HCO3 (21-25) mmol/L ABG Total CO2 (19-24) mmol/L ABG O2 Saturation (94-97) % Chloride 112 H (98-107) mmol/L Carbon Dioxide 16 L (22-30) mmol/L BUN 37 H (7-17) mg/dL Creatinine 1.45 H (0.52-1.04) mg/dL Glucose 131 H (74-99) mg/dL POC Glucose (mg/dL) 129 H (70-110) mg/dL Hemoglobin A1c (<=6.0) % Calcium 8.0 L (8.4-10.2) mg/dL Total Bilirubin 1.4 H (0.2-1.3) mg/dL Total Protein 4.8 L (6.3-8.2) g/dL Albumin 2.5 L (3.5-5.0) g/dL CA 15-3 Antigen (0.0-32.3) U/mL CA 125 Antigen (0.0-30.1) U/mL Urine Appearance (Clear) Urine Protein (Negative) Urine Ketones (Negative) Urine Blood (Negative) Ur Leukocyte Esterase (Negative) Urine RBC (0-5) /hpf Urine WBC (0-5) /hpf 09/24/23 09/24/23 09/24/23 Range/Units 17:56 18:45 21:10 WBC (3.8-10.6) k/uL RBC (3.80-5.40) m/uL Hgb (11.4-16.0) gm/dL Hct (34.0-46.0) % MCV (80.0-100.0) fL MCHC (31.0-37.0) g/dL Neutrophils # (1.3-7.7) k/uL Lymphocytes # (1.0-4.8) k/uL ABG pCO2 (35-45) mmHg ABG pO2 (83-108) mmHg ABG HCO3 (21-25) mmol/L ABG Total CO2 (19-24) mmol/L ABG O2 Saturation (94-97) % Chloride (98-107) mmol/L Carbon Dioxide (22-30) mmol/L BUN (7-17) mg/dL Creatinine (0.52-1.04) mg/dL Glucose (74-99) mg/dL POC Glucose (mg/dL) 173 H (70-110) mg/dL Hemoglobin A1c (<=6.0) % Calcium 8.1 L (8.4-10.2) mg/dL Total Bilirubin (0.2-1.3) mg/dL Total Protein (6.3-8.2) g/dL Albumin (3.5-5.0) g/dL CA 15-3 Antigen (0.0-32.3) U/mL CA 125 Antigen (0.0-30.1) U/mL Urine Appearance Cloudy H (Clear) Urine Protein 2+ H (Negative) Urine Ketones 1+ H (Negative) Urine Blood Moderate H (Negative) Ur Leukocyte Esterase Moderate H (Negative) Urine RBC >182 H (0-5) /hpf Urine WBC 65 H (0-5) /hpf 09/25/23 09/25/23 09/25/23 Range/Units 00:47 04:10 04:43 WBC (3.8-10.6) k/uL RBC (3.80-5.40) m/uL Hgb (11.4-16.0) gm/dL Hct (34.0-46.0) % MCV (80.0-100.0) fL MCHC (31.0-37.0) g/dL Neutrophils # (1.3-7.7) k/uL Lymphocytes # (1.0-4.8) k/uL ABG pCO2 (35-45) mmHg ABG pO2 (83-108) mmHg ABG HCO3 (21-25) mmol/L ABG Total CO2 (19-24) mmol/L ABG O2 Saturation (94-97) % Chloride (98-107) mmol/L Carbon Dioxide (22-30) mmol/L BUN (7-17) mg/dL Creatinine (0.52-1.04) mg/dL Glucose (74-99) mg/dL POC Glucose (mg/dL) 247 H 262 H (70-110) mg/dL Hemoglobin A1c 6.7 H (<=6.0) % Calcium (8.4-10.2) mg/dL Total Bilirubin (0.2-1.3) mg/dL Total Protein (6.3-8.2) g/dL Albumin (3.5-5.0) g/dL CA 15-3 Antigen (0.0-32.3) U/mL CA 125 Antigen (0.0-30.1) U/mL Urine Appearance (Clear) Urine Protein (Negative) Urine Ketones (Negative) Urine Blood (Negative) Ur Leukocyte Esterase (Negative) Urine RBC (0-5) /hpf Urine WBC (0-5) /hpf 09/25/23 09/25/23 09/25/23 Range/Units 04:43 04:43 05:51 WBC 11.4 H (3.8-10.6) k/uL RBC 3.04 L (3.80-5.40) m/uL Hgb 9.4 L (11.4-16.0) gm/dL Hct 31.1 L (34.0-46.0) % MCV 102.5 H (80.0-100.0) fL MCHC 30.2 L (31.0-37.0) g/dL Neutrophils # 10.7 H (1.3-7.7) k/uL Lymphocytes # 0.3 L (1.0-4.8) k/uL ABG pCO2 23 L (35-45) mmHg ABG pO2 128 H (83-108) mmHg ABG HCO3 16 L (21-25) mmol/L ABG Total CO2 17 L (19-24) mmol/L ABG O2 Saturation 99.0 H (94-97) % Chloride 110 H (98-107) mmol/L Carbon Dioxide 14 L (22-30) mmol/L BUN 40 H (7-17) mg/dL Creatinine 1.58 H (0.52-1.04) mg/dL Glucose 264 H (74-99) mg/dL POC Glucose (mg/dL) (70-110) mg/dL Hemoglobin A1c (<=6.0) % Calcium 7.9 L (8.4-10.2) mg/dL Total Bilirubin (0.2-1.3) mg/dL Total Protein (6.3-8.2) g/dL Albumin (3.5-5.0) g/dL CA 15-3 Antigen 63.4 H (0.0-32.3) U/mL CA 125 Antigen 75.5 H (0.0-30.1) U/mL Urine Appearance (Clear) Urine Protein (Negative) Urine Ketones (Negative) Urine Blood (Negative) Ur Leukocyte Esterase (Negative) Urine RBC (0-5) /hpf Urine WBC (0-5) /hpf 09/25/23 09/25/23 Range/Units 08:04 11:52 WBC (3.8-10.6) k/uL RBC (3.80-5.40) m/uL Hgb (11.4-16.0) gm/dL Hct (34.0-46.0) % MCV (80.0-100.0) fL MCHC (31.0-37.0) g/dL Neutrophils # (1.3-7.7) k/uL Lymphocytes # (1.0-4.8) k/uL ABG pCO2 (35-45) mmHg ABG pO2 (83-108) mmHg ABG HCO3 (21-25) mmol/L ABG Total CO2 (19-24) mmol/L ABG O2 Saturation (94-97) % Chloride (98-107) mmol/L Carbon Dioxide (22-30) mmol/L BUN (7-17) mg/dL Creatinine (0.52-1.04) mg/dL Glucose (74-99) mg/dL POC Glucose (mg/dL) 297 H 367 H (70-110) mg/dL Hemoglobin A1c (<=6.0) % Calcium (8.4-10.2) mg/dL Total Bilirubin (0.2-1.3) mg/dL Total Protein (6.3-8.2) g/dL Albumin (3.5-5.0) g/dL CA 15-3 Antigen (0.0-32.3) U/mL CA 125 Antigen (0.0-30.1) U/mL Urine Appearance (Clear) Urine Protein (Negative) Urine Ketones (Negative) Urine Blood (Negative) Ur Leukocyte Esterase (Negative) Urine RBC (0-5) /hpf Urine WBC (0-5) /hpf
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
[2023-09-25 16:13] LABS: Glucose,Whole Blood 386 mg/dL (70-110)
[2023-09-25] MEDS: [UNRECOGNIZED DRUG - REMARK] IV SCH (18:34)
[2023-09-25] MEDS: FAT EMULSION 20% 250 ML IV SCH (18:54)
--- NOTE | 2023-09-25 19:05 | P.PN ---
Subjective Patient seen and evaluated at bedside. Nursing reports no overnight events. NG tube has minimal output. Objective - Vital Signs Vital signs: Vital Signs Temp 97.5 F L 09/25/23 12:00 Pulse 71 09/25/23 18:00 Resp 18 09/25/23 18:00 BP 118/70 09/25/23 18:00 Pulse Ox 99 09/25/23 18:00 FiO2 40 09/25/23 16:00 Intake & Output 09/24/23 09/25/23 09/25/23 18:59 06:59 18:59 Intake Total 1037.22 4071.555 2271.224 Output Total 480 320 380 Balance 557.22 3751.555 1891.224 Weight 68.538 kg Intake: IV 910 2600 1800 ACETAMINOPHEN IV (For NPO 100 ) 1,000 mg In Empty Bag 1 bag @ 400 mls/hr IVPB ONCE [facility] Rx#:[id number] Dextrose 5% in Water 1, 1000 000 ml @ 125 mls/hr IV . Q9H12M [facility] with Sodium Bicarb (1 Meq/ml) 150 ml Rx#:[id number] Invasive Line 5 10 Lactated Ringers 1,000 ml 150 1500 600 @ 150 mls/hr IV .Q6H40M [facility] Rx#:[id number] Piperacillin-Tazobactam 3 100 200 .375 gm In Sodium Chloride 0.9% 100 ml @ 25 mls/hr IVPB Q8H [facility] Rx#: [id number] Sodium Chloride 0.9% 1, 1000 000 ml @ 999 mls/hr IV . Q1H1M [facility] Rx#:[id number] Intake, IV Titration 127.22 1141.555 141.224 Amount Diltiazem 125 mg In 125.0 13.167 Sodium Chloride 0.9% 100 ml @ Per Protocol IV .Q0M [facility] Rx#:[id number] Lactated Ringers 1,000 ml 450 @ 150 mls/hr IV .Q6H40M [facility] Rx#:[id number] Norepinephrine 4 mg In 2.22 60.363 Sodium Chloride 0.9% 250 ml @ 0.03 MCG/KG/MIN 7. 834 mls/hr IV .Q24H [facility] Rx#:[id number] Sodium Chloride 0.9% 500 500 ml 500 ml @ 999 mls/hr IV .Q31M [facility] Rx#:[id number] propofoL 1,000 mg In 118.025 141.224 Empty Bag 1 bag @ 15 MCG/ KG/MIN 6.168 mls/hr IV . [id number] [facility] Rx#:[id number] TPN/PPN 330 330 Mvi, Adult No.4 with Vit 330 330 K 10 ml Trace (Conc-1Ml/ Dose) 1 ml In Amino Acid 5%-D20w+Lytes*E* 1,000 ml @ 30 mls/hr IV .Q24H [facility] Rx#:[id number] Output: Urine 460 320 380 Estimated Blood Loss 20 Other: Voiding Method Bedside Commode Indwelling Catheter Indwelling Catheter - Exam gen: nad cv: rrr pul: non labored abd: soft, surgical site c/d/i, min distention - Labs CBC & Chem 7: 09/25/23 04:43 09/25/23 04:43 Labs: Abnormal Lab Results - Last 24 Hours (Table) 09/24/23 09/24/23 09/25/23 Range/Units 18:45 21:10 00:47 WBC (3.8-10.6) k/uL RBC (3.80-5.40) m/uL Hgb (11.4-16.0) gm/dL Hct (34.0-46.0) % MCV (80.0-100.0) fL MCHC (31.0-37.0) g/dL Neutrophils # (1.3-7.7) k/uL Lymphocytes # (1.0-4.8) k/uL ABG pCO2 (35-45) mmHg ABG pO2 (83-108) mmHg ABG HCO3 (21-25) mmol/L ABG Total CO2 (19-24) mmol/L ABG O2 Saturation (94-97) % Chloride (98-107) mmol/L Carbon Dioxide (22-30) mmol/L BUN (7-17) mg/dL Creatinine (0.52-1.04) mg/dL Glucose (74-99) mg/dL POC Glucose (mg/dL) 173 H 247 H (70-110) mg/dL Hemoglobin A1c (<=6.0) % Calcium (8.4-10.2) mg/dL CA 15-3 Antigen (0.0-32.3) U/mL CA 125 Antigen (0.0-30.1) U/mL Urine Appearance Cloudy H (Clear) Urine Protein 2+ H (Negative) Urine Ketones 1+ H (Negative) Urine Blood Moderate H (Negative) Ur Leukocyte Esterase Moderate H (Negative) Urine RBC >182 H (0-5) /hpf Urine WBC 65 H (0-5) /hpf 09/25/23 09/25/23 09/25/23 Range/Units 04:10 04:43 04:43 WBC (3.8-10.6) k/uL RBC (3.80-5.40) m/uL Hgb (11.4-16.0) gm/dL Hct (34.0-46.0) % MCV (80.0-100.0) fL MCHC (31.0-37.0) g/dL Neutrophils # (1.3-7.7) k/uL Lymphocytes # (1.0-4.8) k/uL ABG pCO2 (35-45) mmHg ABG pO2 (83-108) mmHg ABG HCO3 (21-25) mmol/L ABG Total CO2 (19-24) mmol/L ABG O2 Saturation (94-97) % Chloride 110 H (98-107) mmol/L Carbon Dioxide 14 L (22-30) mmol/L BUN 40 H (7-17) mg/dL Creatinine 1.58 H (0.52-1.04) mg/dL Glucose 264 H (74-99) mg/dL POC Glucose (mg/dL) 262 H (70-110) mg/dL Hemoglobin A1c 6.7 H (<=6.0) % Calcium 7.9 L (8.4-10.2) mg/dL CA 15-3 Antigen 63.4 H (0.0-32.3) U/mL CA 125 Antigen 75.5 H (0.0-30.1) U/mL Urine Appearance (Clear) Urine Protein (Negative) Urine Ketones (Negative) Urine Blood (Negative) Ur Leukocyte Esterase (Negative) Urine RBC (0-5) /hpf Urine WBC (0-5) /hpf 09/25/23 09/25/23 09/25/23 Range/Units 04:43 05:51 08:04 WBC 11.4 H (3.8-10.6) k/uL RBC 3.04 L (3.80-5.40) m/uL Hgb 9.4 L (11.4-16.0) gm/dL Hct 31.1 L (34.0-46.0) % MCV 102.5 H (80.0-100.0) fL MCHC 30.2 L (31.0-37.0) g/dL Neutrophils # 10.7 H (1.3-7.7) k/uL Lymphocytes # 0.3 L (1.0-4.8) k/uL ABG pCO2 23 L (35-45) mmHg ABG pO2 128 H (83-108) mmHg ABG HCO3 16 L (21-25) mmol/L ABG Total CO2 17 L (19-24) mmol/L ABG O2 Saturation 99.0 H (94-97) % Chloride (98-107) mmol/L Carbon Dioxide (22-30) mmol/L BUN (7-17) mg/dL Creatinine (0.52-1.04) mg/dL Glucose (74-99) mg/dL POC Glucose (mg/dL) 297 H (70-110) mg/dL Hemoglobin A1c (<=6.0) % Calcium (8.4-10.2) mg/dL CA 15-3 Antigen (0.0-32.3) U/mL CA 125 Antigen (0.0-30.1) U/mL Urine Appearance (Clear) Urine Protein (Negative) Urine Ketones (Negative) Urine Blood (Negative) Ur Leukocyte Esterase (Negative) Urine RBC (0-5) /hpf Urine WBC (0-5) /hpf 09/25/23 09/25/23 Range/Units 11:52 16:12 WBC (3.8-10.6) k/uL RBC (3.80-5.40) m/uL Hgb (11.4-16.0) gm/dL Hct (34.0-46.0) % MCV (80.0-100.0) fL MCHC (31.0-37.0) g/dL Neutrophils # (1.3-7.7) k/uL Lymphocytes # (1.0-4.8) k/uL ABG pCO2 (35-45) mmHg ABG pO2 (83-108) mmHg ABG HCO3 (21-25) mmol/L ABG Total CO2 (19-24) mmol/L ABG O2 Saturation (94-97) % Chloride (98-107) mmol/L Carbon Dioxide (22-30) mmol/L BUN (7-17) mg/dL Creatinine (0.52-1.04) mg/dL Glucose (74-99) mg/dL POC Glucose (mg/dL) 367 H 386 H (70-110) mg/dL Hemoglobin A1c (<=6.0) % Calcium (8.4-10.2) mg/dL CA 15-3 Antigen (0.0-32.3) U/mL CA 125 Antigen (0.0-30.1) U/mL Urine Appearance (Clear) Urine Protein (Negative) Urine Ketones (Negative) Urine Blood (Negative) Ur Leukocyte Esterase (Negative) Urine RBC (0-5) /hpf Urine WBC (0-5) /hpf Assessment and Plan Assessment: Robotic-assisted da Radha Xi laparoscopic decompressive enterostomy with closure small bowel, external bypass proximal ileum to mid ileum continue tpn hgb stable npo for now repeat labs in am extubate when able Time with Patient: Greater than 30
[2023-09-25 20:05] LABS: Glucose,Whole Blood 326 mg/dL (70-110)
[2023-09-26 00:17] LABS: Glucose,Whole Blood 326 mg/dL (70-110)
[2023-09-26 03:59] LABS: Glucose,Whole Blood 234 mg/dL (70-110)
[2023-09-26 05:10] LABS: Basophils % (A) 0 %; Eosinophils % (A) 0 %; HCT 30.9 % (34.0-46.0); HGB 9.8 gm/dL (11.4-16.0); Hypochromasia Slight; Lymphocytes # (A) 0.4 k/uL (1.0-4.8); Lymphocytes % (A) 3 %; MCH 31.7 pg (25.0-35.0); MCHC 31.7 g/dL (31.0-37.0); MCV 100.1 fL (80.0-100.0); Macrocytosis Slight; Mean Platelet Volume 9.5; Monocytes # (A) 0.5 k/uL (0-1.0); Monocytes % (A) 4 %; Neutrophils % (A) 92 %; Platelet Count 152 k/uL (150-450); RBC 3.09 m/uL (3.80-5.40); RDW 14.5 % (11.5-15.5)
[2023-09-26 06:08] LABS: ABG Base Excess 8.4 mmol/L; ABG HCO3 32 mmol/L (21-25); ABG PCO2 42 mmHg (35-45); ABG PH 7.49 (7.35-7.45); ABG PO2 108 mmHg (83-108); ABG TCO2 33 mmol/L (19-24); Allen Test Performed? Yes
[2023-09-26 07:06] LABS: African American GFR (CKD) 41 (>60 ml/min/1.73 sqM); Anion Gap 5 mmol/L; Blood Urea Nitrogen 42 mg/dL (7-17); Calcium 7.8 mg/dL (8.4-10.2); Carbon Dioxide 26 mmol/L (22-30); Chloride 105 mmol/L (98-107); Glucose 229 mg/dL (74-99); Magnesium 1.8 mg/dL (1.6-2.3); Non-African American GFR(CKD) 36 (>60 ml/min/1.73 sqM); Phosphorus 2.4 mg/dL (2.5-4.5); Potassium 3.2 mmol/L (3.5-5.1); Sodium 136 mmol/L (137-145)
[2023-09-26] MEDS ORDERED: Magnesium Replacement Protocol 1 EACH MISC MISCELLANE PRN (07:10)
[2023-09-26] MEDS ORDERED: Potassium Replacement Protocol 1 EACH MISC MISCELLANE PRN (07:10)
[2023-09-26 08:02] LABS: Glucose,Whole Blood 223 mg/dL (70-110)
[2023-09-26] MEDS: POTASSIUM CHLORIDE 20 MEQ in WATER FOR INJECTION 1 100ML.BAG IVPB SCH ×2 (08:06→17:45)
[2023-09-26] MEDS: SODIUM PHOSPHATE 15 MMOL in DEXTROSE 5% IN WATER 250 ML IVPB ONE (08:07)
[2023-09-26] MEDS: MAGNESIUM SULFATE-D5W PMX 1 GM in DEXTROSE/WATER 1 100ML.BAG IVPB ONE (08:07)
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
--- NOTE | 2023-09-26 08:56 | P.PN ---
Subjective Progress Note Date: 09/26/23 The patient is a 78-year-old female who presented to the hospital with abdominal discomfort. She was found to have a small bowel obstruction and underwent surgery 09/[address] Humphrey. Cardiology has been consulted while inpatient for A-fib with RVR. She is currently rate controlled on IV Cardizem as she is NPO. Patient is currently intubated and may be extubated later today. Heart rates have been controlled. GENERAL: Ill-appearing, well-nourished and in no acute distress. Sedated on ventilator NECK: Supple without JVD or thyromegaly. LUNGS: Breath sounds diminished to auscultation bilaterally. Respiration equal and unlabored. No wheezes, rales or rhonchi. HEART: Irregular rate and rhythm without murmurs, rubs or gallops. S1 and S2 heard. EXTREMITIES: Normal range of motion. +1 generalized edema no clubbing or cyanosis. Peripheral pulses intact and strong. TELEMETRY: Persistent atrial fibrillation with heart rates in the 70-80s IMPRESSION: Abdominal pain secondary to Small bowel obstruction status post laparoscopic decompressive enterostomy with closure of small bowel and proximal ileum and small bowel external bypass Persistent atrial fibrillation with RVR, not anticoagulated on an outpatient basis secondary to significant vaginal bleeding History of nonischemic cardiomyopathy Normal coronary arteries, per cardiac catheterization 2016 Moderate pulmonary hypertension Moderate to severe mitral regurgitation History of CVA Acute kidney injury PLAN: Continue supportive treatment and wean from ventilator Continue Cardizem drip Further recommendations to be based upon clinical course Nurse practitioner note has been reviewed by physician. Signing provider agrees with the documented findings, assessment, and plan of care documented by [facility] [employer] as a scribe. Objective - Vital Signs Vital signs: Vital Signs Temp 98.0 F 09/26/23 04:00 Pulse 77 09/26/23 07:00 Resp 18 09/26/23 07:00 BP 123/86 09/26/23 07:00 Pulse Ox 100 09/26/23 07:00 FiO2 40 09/26/23 07:34 Intake & Output 09/25/23 09/26/23 09/26/23 18:59 06:59 18:59 Intake Total 2271.224 1733.821 Output Total 380 330 Balance 7050.335 3520.821 Weight 87.2 kg Intake: IV 1800 1625 Dextrose 5% in Water 1, 1000 1625 000 ml @ 125 mls/hr IV . Q9H12M [facility] with Sodium Bicarb (1 Meq/ml) 150 ml Rx#:[id number] Lactated Ringers 1,000 ml 600 @ 150 mls/hr IV .Q6H40M [facility] Rx#:[id number] Piperacillin-Tazobactam 3 200 .375 gm In Sodium Chloride 0.9% 100 ml @ 25 mls/hr IVPB Q8H [facility] Rx#: [id number] Intake, IV Titration 141.224 78.821 Amount propofoL 1,000 mg In 141.224 78.821 Empty Bag 1 bag @ 15 MCG/ KG/MIN 6.168 mls/hr IV . [id number] [facility] Rx#:[id number] TPN/PPN 330 30 Mvi, Adult No.4 with Vit 330 30 K 10 ml Trace (Conc-1Ml/ Dose) 1 ml In Amino Acid 5%-D20w+Lytes*E* 1,000 ml @ 30 mls/hr IV .Q24H [facility] Rx#:[id number] Output: Urine 380 330 Other: Voiding Method Indwelling Catheter Indwelling Catheter - Labs CBC & Chem 7: 09/26/23 04:22 09/26/23 04:22 Labs: Abnormal Lab Results - Last 24 Hours (Table) 09/25/23 09/25/23 09/25/23 Range/Units 04:43 04:43 11:52 WBC (3.8-10.6) k/uL RBC (3.80-5.40) m/uL Hgb (11.4-16.0) gm/dL Hct (34.0-46.0) % MCV (80.0-100.0) fL Neutrophils # (1.3-7.7) k/uL Lymphocytes # (1.0-4.8) k/uL ABG pH (7.35-7.45) ABG HCO3 (21-25) mmol/L ABG Total CO2 (19-24) mmol/L ABG O2 Saturation (94-97) % Sodium (137-145) mmol/L Potassium (3.5-5.1) mmol/L BUN (7-17) mg/dL Creatinine (0.52-1.04) mg/dL Glucose (74-99) mg/dL POC Glucose (mg/dL) 367 H (70-110) mg/dL Hemoglobin A1c 6.7 H (<=6.0) % Calcium (8.4-10.2) mg/dL Phosphorus (2.5-4.5) mg/dL CA 15-3 Antigen 63.4 H (0.0-32.3) U/mL CA 125 Antigen 75.5 H (0.0-30.1) U/mL 09/25/23 09/25/23 09/26/23 Range/Units 16:12 20:03 00:15 WBC (3.8-10.6) k/uL RBC (3.80-5.40) m/uL Hgb (11.4-16.0) gm/dL Hct (34.0-46.0) % MCV (80.0-100.0) fL Neutrophils # (1.3-7.7) k/uL Lymphocytes # (1.0-4.8) k/uL ABG pH (7.35-7.45) ABG HCO3 (21-25) mmol/L ABG Total CO2 (19-24) mmol/L ABG O2 Saturation (94-97) % Sodium (137-145) mmol/L Potassium (3.5-5.1) mmol/L BUN (7-17) mg/dL Creatinine (0.52-1.04) mg/dL Glucose (74-99) mg/dL POC Glucose (mg/dL) 386 H 326 H 326 H (70-110) mg/dL Hemoglobin A1c (<=6.0) % Calcium (8.4-10.2) mg/dL Phosphorus (2.5-4.5) mg/dL CA 15-3 Antigen (0.0-32.3) U/mL CA 125 Antigen (0.0-30.1) U/mL 09/26/23 09/26/23 09/26/23 Range/Units 03:57 04:22 04:22 WBC 13.0 H (3.8-10.6) k/uL RBC 3.09 L (3.80-5.40) m/uL Hgb 9.8 L (11.4-16.0) gm/dL Hct 30.9 L (34.0-46.0) % MCV 100.1 H (80.0-100.0) fL Neutrophils # 12.0 H (1.3-7.7) k/uL Lymphocytes # 0.4 L (1.0-4.8) k/uL ABG pH (7.35-7.45) ABG HCO3 (21-25) mmol/L ABG Total CO2 (19-24) mmol/L ABG O2 Saturation (94-97) % Sodium 136 L (137-145) mmol/L Potassium 3.2 L (3.5-5.1) mmol/L BUN 42 H (7-17) mg/dL Creatinine 1.40 H (0.52-1.04) mg/dL Glucose 229 H (74-99) mg/dL POC Glucose (mg/dL) 234 H (70-110) mg/dL Hemoglobin A1c (<=6.0) % Calcium 7.8 L (8.4-10.2) mg/dL Phosphorus 2.4 L (2.5-4.5) mg/dL CA 15-3 Antigen (0.0-32.3) U/mL CA 125 Antigen (0.0-30.1) U/mL 09/26/23 09/26/23 Range/Units 06:06 08:01 WBC (3.8-10.6) k/uL RBC (3.80-5.40) m/uL Hgb (11.4-16.0) gm/dL Hct (34.0-46.0) % MCV (80.0-100.0) fL Neutrophils # (1.3-7.7) k/uL Lymphocytes # (1.0-4.8) k/uL ABG pH 7.49 H (7.35-7.45) ABG HCO3 32 H (21-25) mmol/L ABG Total CO2 33 H (19-24) mmol/L ABG O2 Saturation 99.0 H (94-97) % Sodium (137-145) mmol/L Potassium (3.5-5.1) mmol/L BUN (7-17) mg/dL Creatinine (0.52-1.04) mg/dL Glucose (74-99) mg/dL POC Glucose (mg/dL) 223 H (70-110) mg/dL Hemoglobin A1c (<=6.0) % Calcium (8.4-10.2) mg/dL Phosphorus (2.5-4.5) mg/dL CA 15-3 Antigen (0.0-32.3) U/mL CA 125 Antigen (0.0-30.1) U/mL Microbiology - Last 24 Hours (Table) 09/24/23 16:11 Gram Stain - Preliminary Other - Other
--- NOTE | 2023-09-26 09:55 | P.PN ---
Subjective Patient is seen in follow-up for acute kidney injury on chronic kidney disease. Renal function stable. Remains on Cardizem drip for A-fib. Intubated. Nonoliguric. Underwent abdominal pain laparoscopic decompressive enterostomy with closure of small bowel September 24, 2023. Bicarb drip discontinued this morning. Receiving TPN. Vital signs are stable. General: No acute distress. HEENT: Intubated. LUNGS: No audible rhonchi or wheezes. HEART: Rate and Rhythm are regular. ABDOMEN: Nontender. EXTREMITITES: No edema. Objective - Vital Signs Vital signs: Vital Signs Temp 98.3 F 09/26/23 08:00 Pulse 74 09/26/23 09:00 Resp 14 09/26/23 09:00 BP 121/69 09/26/23 09:00 Pulse Ox 99 09/26/23 09:00 FiO2 40 09/26/23 09:00 Intake & Output 09/25/23 09/26/23 09/26/23 18:59 06:59 18:59 Intake Total 2271.224 1733.821 587.851 Output Total 380 330 240 Balance 0926.933 2948.821 347.851 Weight 87.2 kg Intake: IV 1800 1625 575 Dextrose 5% in Water 1, 1000 1625 125 000 ml @ 125 mls/hr IV . Q9H12M [facility] with Sodium Bicarb (1 Meq/ml) 150 ml Rx#:[id number] Lactated Ringers 1,000 ml 600 @ 150 mls/hr IV .Q6H40M [facility] Rx#:[id number] Magnesium Sulfate-D5w Pmx 100 1 gm In Dextrose/Water 1 100ml.bag @ 100 mls/hr IVPB ONCE ONE Rx#: [id number] Piperacillin-Tazobactam 3 200 .375 gm In Sodium Chloride 0.9% 100 ml @ 25 mls/hr IVPB Q8H [facility] Rx#: [id number] Potassium Chloride 20 meq 100 In Water For Injection 1 100ml.bag @ 50 mls/hr IVPB Q2H [facility] Rx#: [id number] Sodium Phosphate 15 mmol 250 In Dextrose 5% in Water 250 ml @ 127.5 mls/hr IVPB ONCE ONE Rx#: [id number] Intake, IV Titration 141.224 78.821 12.851 Amount propofoL 1,000 mg In 141.224 78.821 12.851 Empty Bag 1 bag @ 15 MCG/ KG/MIN 6.168 mls/hr IV . [id number] [facility] Rx#:[id number] TPN/PPN 330 30 Mvi, Adult No.4 with Vit 330 30 K 10 ml Trace (Conc-1Ml/ Dose) 1 ml In Amino Acid 5%-D20w+Lytes*E* 1,000 ml @ 30 mls/hr IV .Q24H [facility] Rx#:[id number] Output: Gastric Drainage 150 Urine 380 330 90 Other: Voiding Method Indwelling Catheter Indwelling Catheter - Labs CBC & Chem 7: 09/26/23 04:22 09/26/23 04:22 Labs: Abnormal Lab Results - Last 24 Hours (Table) 09/25/23 09/25/23 09/25/23 Range/Units 04:43 11:52 16:12 WBC (3.8-10.6) k/uL RBC (3.80-5.40) m/uL Hgb (11.4-16.0) gm/dL Hct (34.0-46.0) % MCV (80.0-100.0) fL Neutrophils # (1.3-7.7) k/uL Lymphocytes # (1.0-4.8) k/uL ABG pH (7.35-7.45) ABG HCO3 (21-25) mmol/L ABG Total CO2 (19-24) mmol/L ABG O2 Saturation (94-97) % Sodium (137-145) mmol/L Potassium (3.5-5.1) mmol/L BUN (7-17) mg/dL Creatinine (0.52-1.04) mg/dL Glucose (74-99) mg/dL POC Glucose (mg/dL) 367 H 386 H (70-110) mg/dL Calcium (8.4-10.2) mg/dL Phosphorus (2.5-4.5) mg/dL CA 15-3 Antigen 63.4 H (0.0-32.3) U/mL CA 125 Antigen 75.5 H (0.0-30.1) U/mL 09/25/23 09/26/23 09/26/23 Range/Units 20:03 00:15 03:57 WBC (3.8-10.6) k/uL RBC (3.80-5.40) m/uL Hgb (11.4-16.0) gm/dL Hct (34.0-46.0) % MCV (80.0-100.0) fL Neutrophils # (1.3-7.7) k/uL Lymphocytes # (1.0-4.8) k/uL ABG pH (7.35-7.45) ABG HCO3 (21-25) mmol/L ABG Total CO2 (19-24) mmol/L ABG O2 Saturation (94-97) % Sodium (137-145) mmol/L Potassium (3.5-5.1) mmol/L BUN (7-17) mg/dL Creatinine (0.52-1.04) mg/dL Glucose (74-99) mg/dL POC Glucose (mg/dL) 326 H 326 H 234 H (70-110) mg/dL Calcium (8.4-10.2) mg/dL Phosphorus (2.5-4.5) mg/dL CA 15-3 Antigen (0.0-32.3) U/mL CA 125 Antigen (0.0-30.1) U/mL 09/26/23 09/26/23 09/26/23 Range/Units 04:22 04:22 06:06 WBC 13.0 H (3.8-10.6) k/uL RBC 3.09 L (3.80-5.40) m/uL Hgb 9.8 L (11.4-16.0) gm/dL Hct 30.9 L (34.0-46.0) % MCV 100.1 H (80.0-100.0) fL Neutrophils # 12.0 H (1.3-7.7) k/uL Lymphocytes # 0.4 L (1.0-4.8) k/uL ABG pH 7.49 H (7.35-7.45) ABG HCO3 32 H (21-25) mmol/L ABG Total CO2 33 H (19-24) mmol/L ABG O2 Saturation 99.0 H (94-97) % Sodium 136 L (137-145) mmol/L Potassium 3.2 L (3.5-5.1) mmol/L BUN 42 H (7-17) mg/dL Creatinine 1.40 H (0.52-1.04) mg/dL Glucose 229 H (74-99) mg/dL POC Glucose (mg/dL) (70-110) mg/dL Calcium 7.8 L (8.4-10.2) mg/dL Phosphorus 2.4 L (2.5-4.5) mg/dL CA 15-3 Antigen (0.0-32.3) U/mL CA 125 Antigen (0.0-30.1) U/mL 09/26/23 Range/Units 08:01 WBC (3.8-10.6) k/uL RBC (3.80-5.40) m/uL Hgb (11.4-16.0) gm/dL Hct (34.0-46.0) % MCV (80.0-100.0) fL Neutrophils # (1.3-7.7) k/uL Lymphocytes # (1.0-4.8) k/uL ABG pH (7.35-7.45) ABG HCO3 (21-25) mmol/L ABG Total CO2 (19-24) mmol/L ABG O2 Saturation (94-97) % Sodium (137-145) mmol/L Potassium (3.5-5.1) mmol/L BUN (7-17) mg/dL Creatinine (0.52-1.04) mg/dL Glucose (74-99) mg/dL POC Glucose (mg/dL) 223 H (70-110) mg/dL Calcium (8.4-10.2) mg/dL Phosphorus (2.5-4.5) mg/dL CA 15-3 Antigen (0.0-32.3) U/mL CA 125 Antigen (0.0-30.1) U/mL Microbiology - Last 24 Hours (Table) 09/25/23 00:15 Gram Stain - Preliminary Sputum 09/24/23 16:11 Gram Stain - Preliminary Other - Other Assessment and Plan Plan: Assessment: 1. Acute kidney injury secondary to vasomotor nephropathy from poor intake. Creatinine peaked at 1.76 this admission and is improved to 1.[address] scan showed right-sided hydronephrosis. Patient has a right ureteral stent. Urology following. 2. Chronic kidney disease stage IIIb with baseline creatinine 1.5 secondary to nephrosclerosis. 3. Small bowel obstruction being followed by surgery. Status post laparoscopic decompressive enterostomy with closure of small bowel and proximal ileum September 24, 2023. 4. Hypernatremia from lack of oral water intake. Improved. 5. Hypokalemia from poor intake and intracellular shifting from IV bicarb. 6. A-fib with RVR maintained on Cardizem drip. Cardiology following. 7. Metabolic acidosis secondary to acute kidney injury and IV fluids. Status post bicarb drip. Improved. 8. Hypophosphatemia from poor intake. Plan: Bicarb drip discontinued. Receiving TPN. Electrolytes being replaced. Wean FiO2. Continue to monitor renal function and urine output.
--- NOTE | 2023-09-26 10:06 | P.PN ---
Subjective Progress Note Date: 09/26/23 CHIEF COMPLAINT: Abdominal pain HISTORY OF PRESENT ILLNESS: Surgical service following in regards to patient's small bowel obstruction. Patient has NG tube in place with 1.4 liters output through the night and 600 mL output this morning. She had small bowel follow- through completed which did show evidence of small bowel obstruction. Abdominal x-ray in the morning reported no discrete obstruction. Contrast appears to be throughout the colon. Patient reports no flatus or bowel movement. She does have diffuse pain. She has been having nausea. Afebrile. Patient evaluated by cardiology for her A-fib. Patient denies any prior abdominal surgeries. Patient is more awake and alert today PHYSICAL EXAM: VITAL SIGNS: Reviewed GENERAL: Well-developed in no acute distress. HEENT: No sclera icterus. Extraocular movements grossly intact. Moist buccal mucosa. Head is atraumatic, normocephalic. Hears conversational speech. No nasal drainage. NECK: Supple without lymphadenopathy. CHEST: Non-labored respirations and equal bilateral excursions. CARDIOVASCULAR: Palpable 2+ radial pulses. ABDOMEN: Soft. Nondistended. Diffuse tenderness MUSCULOSKELETAL: No clubbing or cyanosis. NEUROLOGIC: No focal or lateralizing signs. Cranial nerves II through XII grossly intact. PSYCH: Appropriate affect. Awake and alert. Able to answer some questions. SKIN: Well perfused. Good skin turgor. ASSESSMENT: 1. Small bowel obstruction with transition point noted in the pelvis per CT. Follow-up abdominal x-ray showing no evidence of bowel obstruction 2. A-fib RVR 3. History of endometrial cancer 4. Hyperkalemia corrected 5. Chronic kidney disease 6. History of nonischemic cardiomyopathy PLAN: -Continue NG tube for decompression -Keep patient n.p.o. except for ice chips and popsicles -Continue IV fluids -IV Tylenol PRN added for pain control -Zofran PRN added for nausea Physician Data Acquisition Technician note has been reviewed by physician. Signing provider agrees with the documented findings, assessment, and plan of care. CHIEF COMPLAINT: Bowel obstruction HISTORY OF PRESENT ILLNESS: The patient is a 78-year-old female status post small intestinal bypass for bowel obstruction and frozen abdomen. 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 She is still intubated and in the ICU. REVIEW OF ORGAN SYSTEMS: No fevers or chills. No chest pain. No emesis. PHYSICAL EXAM: VITALS: Reviewed CONSTITUTIONAL: Well developed and in no acute distress. EYES: Conjuctivae without sclera icterus. Extraocular movements grossly intact. HEAD, EARS, NOSE, THROAT: Moist buccal mucosa. Head is atraumatic, normocephalic. Hears conversational speech. No nasal drainage. Nasogastric tube present with less than 200 mL/24 hrs. RESPIRATORY: Non-labored respirations and equal bilateral excursions. No gross wheezes. CARDIOVASCULAR: Palpable 2+ radial pulses. ABDOMEN: No distention. Incisions clean, dry and intact. MUSCULOSKELETAL: No clubbing cyanosis or edema SKIN: Warm and well perfused with good skin turgor. NEUROLOGIC: Cranial nerves II through XII grossly intact. No focal or lateralizing signs. PSYCH: Alert and oriented to person. CLINCAL LABS: Reviewed. WBC elevated 13,000. MICROBIOLOGY: Small bowel cultures pending, but listed as other. ASSESSMENT: 1. 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 2. Dementia PLAN: 1. May remove NG tube with extubation. 2. Start ice chips and popsicles upon extubation. May advance diet as tolerated after. 3. Tumor markers pending with oncology consultation pending pathology report. Objective - Vital Signs Vital signs: Vital Signs Temp 98.3 F 09/26/23 08:00 Pulse 74 09/26/23 09:00 Resp 14 09/26/23 09:00 BP 121/69 09/26/23 09:00 Pulse Ox 99 09/26/23 09:00 FiO2 40 09/26/23 09:00 Intake & Output 09/25/23 09/26/23 09/26/23 18:59 06:59 18:59 Intake Total 2271.224 1733.821 587.851 Output Total 380 330 240 Balance 7535.138 8777.821 347.851 Weight 87.2 kg Intake: IV 1800 1625 575 Dextrose 5% in Water 1, 1000 1625 125 000 ml @ 125 mls/hr IV . Q9H12M [facility] with Sodium Bicarb (1 Meq/ml) 150 ml Rx#:[id number] Lactated Ringers 1,000 ml 600 @ 150 mls/hr IV .Q6H40M [facility] Rx#:[id number] Magnesium Sulfate-D5w Pmx 100 1 gm In Dextrose/Water 1 100ml.bag @ 100 mls/hr IVPB ONCE ONE Rx#: [id number] Piperacillin-Tazobactam 3 200 .375 gm In Sodium Chloride 0.9% 100 ml @ 25 mls/hr IVPB Q8H [facility] Rx#: [id number] Potassium Chloride 20 meq 100 In Water For Injection 1 100ml.bag @ 50 mls/hr IVPB Q2H [facility] Rx#: [id number] Sodium Phosphate 15 mmol 250 In Dextrose 5% in Water 250 ml @ 127.5 mls/hr IVPB ONCE ONE Rx#: [id number] Intake, IV Titration 141.224 78.821 12.851 Amount propofoL 1,000 mg In 141.224 78.821 12.851 Empty Bag 1 bag @ 15 MCG/ KG/MIN 6.168 mls/hr IV . [id number] [facility] Rx#:[id number] TPN/PPN 330 30 Mvi, Adult No.4 with Vit 330 30 K 10 ml Trace (Conc-1Ml/ Dose) 1 ml In Amino Acid 5%-D20w+Lytes*E* 1,000 ml @ 30 mls/hr IV .Q24H [facility] Rx#:[id number] Output: Gastric Drainage 150 Urine 380 330 90 Other: Voiding Method Indwelling Catheter Indwelling Catheter - Labs CBC & Chem 7: 09/26/23 04:22 09/26/23 04:22 Labs: Abnormal Lab Results - Last 24 Hours (Table) 09/25/23 09/25/23 09/25/23 Range/Units 04:43 11:52 16:12 WBC (3.8-10.6) k/uL RBC (3.80-5.40) m/uL Hgb (11.4-16.0) gm/dL Hct (34.0-46.0) % MCV (80.0-100.0) fL Neutrophils # (1.3-7.7) k/uL Lymphocytes # (1.0-4.8) k/uL ABG pH (7.35-7.45) ABG HCO3 (21-25) mmol/L ABG Total CO2 (19-24) mmol/L ABG O2 Saturation (94-97) % Sodium (137-145) mmol/L Potassium (3.5-5.1) mmol/L BUN (7-17) mg/dL Creatinine (0.52-1.04) mg/dL Glucose (74-99) mg/dL POC Glucose (mg/dL) 367 H 386 H (70-110) mg/dL Calcium (8.4-10.2) mg/dL Phosphorus (2.5-4.5) mg/dL CA 15-3 Antigen 63.4 H (0.0-32.3) U/mL CA 125 Antigen 75.5 H (0.0-30.1) U/mL 09/25/23 09/26/23 09/26/23 Range/Units 20:03 00:15 03:57 WBC (3.8-10.6) k/uL RBC (3.80-5.40) m/uL Hgb (11.4-16.0) gm/dL Hct (34.0-46.0) % MCV (80.0-100.0) fL Neutrophils # (1.3-7.7) k/uL Lymphocytes # (1.0-4.8) k/uL ABG pH (7.35-7.45) ABG HCO3 (21-25) mmol/L ABG Total CO2 (19-24) mmol/L ABG O2 Saturation (94-97) % Sodium (137-145) mmol/L Potassium (3.5-5.1) mmol/L BUN (7-17) mg/dL Creatinine (0.52-1.04) mg/dL Glucose (74-99) mg/dL POC Glucose (mg/dL) 326 H 326 H 234 H (70-110) mg/dL Calcium (8.4-10.2) mg/dL Phosphorus (2.5-4.5) mg/dL CA 15-3 Antigen (0.0-32.3) U/mL CA 125 Antigen (0.0-30.1) U/mL 09/26/23 09/26/23 09/26/23 Range/Units 04:22 04:22 06:06 WBC 13.0 H (3.8-10.6) k/uL RBC 3.09 L (3.80-5.40) m/uL Hgb 9.8 L (11.4-16.0) gm/dL Hct 30.9 L (34.0-46.0) % MCV 100.1 H (80.0-100.0) fL Neutrophils # 12.0 H (1.3-7.7) k/uL Lymphocytes # 0.4 L (1.0-4.8) k/uL ABG pH 7.49 H (7.35-7.45) ABG HCO3 32 H (21-25) mmol/L ABG Total CO2 33 H (19-24) mmol/L ABG O2 Saturation 99.0 H (94-97) % Sodium 136 L (137-145) mmol/L Potassium 3.2 L (3.5-5.1) mmol/L BUN 42 H (7-17) mg/dL Creatinine 1.40 H (0.52-1.04) mg/dL Glucose 229 H (74-99) mg/dL POC Glucose (mg/dL) (70-110) mg/dL Calcium 7.8 L (8.4-10.2) mg/dL Phosphorus 2.4 L (2.5-4.5) mg/dL CA 15-3 Antigen (0.0-32.3) U/mL CA 125 Antigen (0.0-30.1) U/mL 09/26/23 Range/Units 08:01 WBC (3.8-10.6) k/uL RBC (3.80-5.40) m/uL Hgb (11.4-16.0) gm/dL Hct (34.0-46.0) % MCV (80.0-100.0) fL Neutrophils # (1.3-7.7) k/uL Lymphocytes # (1.0-4.8) k/uL ABG pH (7.35-7.45) ABG HCO3 (21-25) mmol/L ABG Total CO2 (19-24) mmol/L ABG O2 Saturation (94-97) % Sodium (137-145) mmol/L Potassium (3.5-5.1) mmol/L BUN (7-17) mg/dL Creatinine (0.52-1.04) mg/dL Glucose (74-99) mg/dL POC Glucose (mg/dL) 223 H (70-110) mg/dL Calcium (8.4-10.2) mg/dL Phosphorus (2.5-4.5) mg/dL CA 15-3 Antigen (0.0-32.3) U/mL CA 125 Antigen (0.0-30.1) U/mL Microbiology - Last 24 Hours (Table) 09/25/23 00:15 Gram Stain - Preliminary Sputum 09/24/23 16:11 Gram Stain - Preliminary Other - Other
[2023-09-26] MEDS: LACTATED RINGERS 1,000 ML IV SCH (10:18)
[2023-09-26] MEDS: PANTOPRAZOLE 40 MG/10 ML VIAL IVP SCH (10:36)
--- NOTE | 2023-09-26 11:28 | P.CONS ---
History of Present Illness - Reason for Consult Consult date: 09/26/23 SBO, Uterine ca - History of Present Illness The patient is a 78-year-old white female, well-known to our service. The patient has a prior history of early stage endometrial cancer, diagnosed in 08/30, apparently treated with radiation alone. She was seen in consult in 11/02, when she presented with vaginal bleeding. Subsequent workup revealed a right pelvic mass, with biopsy in 05/05 confirming recurrent endometrial cancer. The patient did not appear to have evidence of distant disease. She has known d ementia and overall poor performance status at baseline. She is currently on treatment with fulvestrant injections every 4 weeks. She follows with Dr. Shaneka Coles in the office. Last office visit was in 09/04. The patient was admitted with small bowel obstruction, Confirmed on imaging with x-rays, and CT scans. CT scans did not show any obvious evidence of metastatic disease. The patient had surgery on 09/24/2023, revealing adherent small bowel in the right pelvis to the pelvic mass. She had a small bowel to small bowel bypass. She was also found to have some ascites, which was sent for pathology, along with a biopsy of the pelvic mass. The patient is currently intubated in the ICU. Tumor marker showed mildly elevated CA 15/3, as well as mild elevation of CA125 in the 70 range. Her PET scan in 07/07 had shown no evidence of progression, with uptake limited to the pelvis, decreased from before. Review of Systems ROS unobtainable: due to endotracheal tube (Obtained from medical records and nursing) Constitutional: Reports fatigue, Reports poor appetite, Reports weakness Eyes: denies blurred vision, denies pain Ears: deny: decreased hearing, ear discharge, earache, tinnitus Ears, nose, mouth and throat: Denies headache, Denies sore throat Cardiovascular: Reports decreased exercise tolerance Respiratory: Reports dyspnea Gastrointestinal: Reports as per HPI Genitourinary: Reports as per HPI Menstruation: Reports postmenopausal Musculoskeletal: Reports muscle weakness Integumentary: Denies pruritus, Denies rash Neurological: Reports memory loss Psychiatric: Reports memory loss Endocrine: Reports fatigue, Reports weight change Hematologic/Lymphatic: Reports as per HPI Past Medical History Past Medical History: Atrial Fibrillation, Cancer, CVA/TIA, GI Bleed, Hyperlipidemia, Myocardial Infarction (ND) Additional Past Medical History / Comment(s): 07/27/17 FALL[employer] HIP FX. 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 History of COVID-19, cervical cancer treated with radiation. No taking Eliquis due to bleeding issues in past. Last Myocardial Infarction Date:: 2009 History of Any Multi-Drug Resistant Organisms: None Reported Past Surgical History: Heart Catheterization, Orthopedic Surgery, Tonsillectomy Additional Past Surgical History / Comment(s): ORIF RT ANKLE HAS PLATE. Past Anesthesia/Blood Transfusion Reactions: No Reported Reaction Past Psychological History: No Psychological Hx Reported Smoking Status: Former smoker, Never smoker Past Alcohol Use History: None Reported Past Drug Use History: None Reported - Past Family History Mother Family Medical History: No Reported History Additional Family Medical History / Comment(s): FROM ANUERYSM Father Family Medical History: No Reported History Medications and Allergies Home Medications Medication Instructions Recorded Confirmed Type No Known Home Medications 09/16/23 09/16/23 History Allergies Allergy/AdvReac Type Severity Reaction Status Date / Time No Known Allergies Allergy Verified 09/16/23 10:37 Physical Exam Vitals: Vital Signs Temp Pulse Resp BP Pulse Ox FiO2 09/26/23 10:16 40 09/26/23 10:00 80 15 132/79 99 40 09/26/23 09:00 74 14 121/69 99 40 09/26/23 08:00 98.3 F 83 18 130/81 100 40 09/26/23 07:34 40 09/26/23 07:00 77 18 123/86 100 40 09/26/23 06:30 83 18 126/74 100 09/26/23 06:00 92 18 120/75 100 40 09/26/23 05:30 65 18 130/70 100 09/26/23 05:00 83 14 127/71 100 40 09/26/23 04:30 78 18 123/70 100 09/26/23 04:00 98.0 F 85 20 146/98 99 40 09/26/23 03:30 83 18 114/88 100 09/26/23 03:14 40 09/26/23 03:00 79 18 124/80 100 09/26/23 02:30 85 18 125/86 99 09/26/23 02:00 77 18 131/82 99 40 09/26/23 01:30 73 19 131/79 99 09/26/23 01:00 83 18 122/79 100 09/26/23 00:30 75 17 118/77 99 09/26/23 00:00 97.7 F 82 18 125/75 99 40 09/25/23 23:50 40 09/25/23 23:42 40 09/25/23 23:30 75 19 119/73 99 09/25/23 23:00 77 18 124/74 100 09/25/23 22:30 75 18 123/80 100 09/25/23 22:22 75 18 123/80 100 09/25/23 22:00 76 18 125/76 100 40 09/25/23 21:30 78 18 114/79 100 09/25/23 21:00 70 18 119/72 100 09/25/23 20:30 73 18 119/78 100 09/25/23 20:01 40 09/25/23 20:00 97.9 F 71 18 123/75 100 40 09/25/23 19:30 70 18 120/72 100 09/25/23 19:00 63 18 131/83 100 09/25/23 18:45 73 12 117/80 99 09/25/23 18:30 72 18 113/81 99 09/25/23 18:15 72 18 118/76 99 09/25/23 18:00 71 18 118/70 99 09/25/23 17:45 63 18 111/74 98 09/25/23 17:30 64 18 123/77 98 09/25/23 17:15 73 18 115/73 98 09/25/23 17:00 70 18 120/74 98 09/25/23 16:45 80 18 124/79 98 09/25/23 16:30 70 18 129/74 99 09/25/23 16:15 75 18 128/77 98 09/25/23 16:00 75 18 120/78 99 40 09/25/23 15:45 76 18 120/68 99 09/25/23 15:30 75 18 117/75 98 09/25/23 15:25 40 09/25/23 15:15 68 18 119/69 98 09/25/23 15:00 80 18 130/74 99 09/25/23 14:45 77 18 121/89 99 09/25/23 14:30 76 18 146/89 99 09/25/23 14:15 77 18 139/92 99 09/25/23 14:00 77 18 143/84 99 09/25/23 13:45 75 18 146/101 100 09/25/23 13:30 81 18 130/80 99 09/25/23 13:15 70 18 135/85 100 09/25/23 13:00 85 18 147/77 100 09/25/23 12:45 87 18 129/81 100 09/25/23 12:30 72 18 132/83 100 09/25/23 12:15 76 18 128/82 100 09/25/23 12:00 97.5 F L 77 18 131/80 100 40 09/25/23 11:45 65 18 136/80 100 09/25/23 11:30 79 18 143/84 100 09/25/23 11:20 40 Intake and Output 09/25/23 09/26/23 09/26/23 22:59 06:59 14:59 Intake Total 2204.424 4496.821 1057.851 Output Total 190 245 330 Balance 1040.005 958.821 727.851 Intake: IV 1000 1125 925 Dextrose 5% in Water 1, 1000 1125 125 000 ml @ 125 mls/hr IV . Q9H12M [facility] with Sodium Bicarb (1 Meq/ml) 150 ml Rx#:[id number] Lactated Ringers 1,000 ml 150 @ 50 mls/hr IV .Q20H [facility] Rx#:[id number] Magnesium Sulfate-D5w Pmx 100 1 gm In Dextrose/Water 1 100ml.bag @ 100 mls/hr IVPB ONCE ONE Rx#: [id number] Piperacillin-Tazobactam 3 100 .375 gm In Sodium Chloride 0.9% 100 ml @ 25 mls/hr IVPB Q8H [facility] Rx#: [id number] Potassium Chloride 20 meq 200 In Water For Injection 1 100ml.bag @ 50 mls/hr IVPB Q2H [facility] Rx#: [id number] Sodium Phosphate 15 mmol 250 In Dextrose 5% in Water 250 ml @ 127.5 mls/hr IVPB ONCE ONE Rx#: [id number] Intake, IV Titration 110.005 78.821 12.851 Amount propofoL 1,000 mg In 110.005 78.821 12.851 Empty Bag 1 bag @ 15 MCG/ KG/MIN 6.168 mls/hr IV . [id number] [facility] Rx#:[id number] TPN/PPN 120 120 Mvi, Adult No.4 with Vit 120 K 10 ml Trace (Conc-1Ml/ Dose) 1 ml In Amino Acid 5%-D20w+Lytes*E* 1,000 ml @ 30 mls/hr IV .Q24H [facility] Rx#:[id number] Mvi, Adult No.4 with Vit 120 K 10 ml Trace (Conc-1Ml/ Dose) 1 ml Sodium Phosphate 10 mmol Sodium Acetate 30 meq Potassium Acetate 10 meq Magnesium Sulfate gm 0.5 gm Calcium Gluconate 1 gm In Amino Acids 5 %/Dextrose 20 % 1 ,000 ml @ 30 mls/hr IV . Q24H [facility] Rx#:[id number] Output: Gastric Drainage 150 Urine 190 245 180 Other: Voiding Method Indwelling Catheter Indwelling Catheter Indwelling Catheter Weight 87.2 kg Sedated, on ventilator - Constitutional General appearance: no acute distress - EENT ET tube in situ Eyes: PERRLA - Neck Neck: no lymphadenopathy - Respiratory Respiratory: bilateral: diminished - Cardiovascular Rhythm: regular Heart sounds: normal: S1, S2 - Gastrointestinal General gastrointestinal: absent bowel sounds, soft - Integumentary Integumentary: normal - Musculoskeletal Musculoskeletal: generalized weakness - Psychiatric Sedated, on ventilator Results CBC & Chem 7: 09/26/23 04:22 09/26/23 04:22 Labs: Abnormal Lab Results - Last 24 Hours (Table) 09/25/23 09/25/23 09/25/23 Range/Units 11:52 16:12 20:03 WBC (3.8-10.6) k/uL RBC (3.80-5.40) m/uL Hgb (11.4-16.0) gm/dL Hct (34.0-46.0) % MCV (80.0-100.0) fL Neutrophils # (1.3-7.7) k/uL Lymphocytes # (1.0-4.8) k/uL ABG pH (7.35-7.45) ABG HCO3 (21-25) mmol/L ABG Total CO2 (19-24) mmol/L ABG O2 Saturation (94-97) % Sodium (137-145) mmol/L Potassium (3.5-5.1) mmol/L BUN (7-17) mg/dL Creatinine (0.52-1.04) mg/dL Glucose (74-99) mg/dL POC Glucose (mg/dL) 367 H 386 H 326 H (70-110) mg/dL Calcium (8.4-10.2) mg/dL Phosphorus (2.5-4.5) mg/dL 09/26/23 09/26/23 09/26/23 Range/Units 00:15 03:57 04:22 WBC (3.8-10.6) k/uL RBC (3.80-5.40) m/uL Hgb (11.4-16.0) gm/dL Hct (34.0-46.0) % MCV (80.0-100.0) fL Neutrophils # (1.3-7.7) k/uL Lymphocytes # (1.0-4.8) k/uL ABG pH (7.35-7.45) ABG HCO3 (21-25) mmol/L ABG Total CO2 (19-24) mmol/L ABG O2 Saturation (94-97) % Sodium 136 L (137-145) mmol/L Potassium 3.2 L (3.5-5.1) mmol/L BUN 42 H (7-17) mg/dL Creatinine 1.40 H (0.52-1.04) mg/dL Glucose 229 H (74-99) mg/dL POC Glucose (mg/dL) 326 H 234 H (70-110) mg/dL Calcium 7.8 L (8.4-10.2) mg/dL Phosphorus 2.4 L (2.5-4.5) mg/dL 09/26/23 09/26/23 09/26/23 Range/Units 04:22 06:06 08:01 WBC 13.0 H (3.8-10.6) k/uL RBC 3.09 L (3.80-5.40) m/uL Hgb 9.8 L (11.4-16.0) gm/dL Hct 30.9 L (34.0-46.0) % MCV 100.1 H (80.0-100.0) fL Neutrophils # 12.0 H (1.3-7.7) k/uL Lymphocytes # 0.4 L (1.0-4.8) k/uL ABG pH 7.49 H (7.35-7.45) ABG HCO3 32 H (21-25) mmol/L ABG Total CO2 33 H (19-24) mmol/L ABG O2 Saturation 99.0 H (94-97) % Sodium (137-145) mmol/L Potassium (3.5-5.1) mmol/L BUN (7-17) mg/dL Creatinine (0.52-1.04) mg/dL Glucose (74-99) mg/dL POC Glucose (mg/dL) 223 H (70-110) mg/dL Calcium (8.4-10.2) mg/dL Phosphorus (2.5-4.5) mg/dL Microbiology - Last 24 Hours (Table) 09/24/23 18:45 Urine Culture - Final Urine,Voided 09/24/23 16:11 Gram Stain - Preliminary Other - Other Wound Culture - Preliminary Gram Neg Bacilli 09/25/23 00:15 Gram Stain - Preliminary Sputum Comments: PET report reviewed Chest x-ray: report reviewed Abdominal x-ray: report reviewed CT scan - abdomen: report reviewed CT scan - pelvis: report reviewed Assessment and Plan (1) Small bowel obstruction Narrative/Plan: This occurred because of adhesion of the small bowel to the right sided pelvic mass. The patient was able to have a bowel to bowel bypass. She was also found to have some ascites, and cytology from the same as well as biopsy from the adhesions and the mass is pending. The patient has a known pelvic mass because of recurrent endometrial cancer, for which she is on treatment. Her most recent imaging did not show any evidence of progression. At this time it is difficult to ascertain if the obstruction occurred because of progression of the cancer, or due to progressive adhesions in the area of the tumor which can occur due to treatment effect. The elevation of the tumor markers in this range is nonspecific. Await pathology and cytology. If ascites fluid is positive that would be more indicative of progression. If negative it would be reasonable to reimage and recheck tumor markers some weeks after surgery. Continue postop care per surgical service Current Visit: Yes Status: Acute Code(s): K56.609 - UNSP INTESTNL OBST, UNSP TO PARTIAL VERSUS COMPLETE OBST SNOMED Code(s): 586838557 (2) Recurrent carcinoma of endometrium Narrative/Plan: The patient has no recurrent endometrial cancer involving the right pelvis, as described in the HPI. Therefore the operative findings of a mass in the right pelvis represent her known malignancy. As stated, it is difficult to ascertain at this time if her current presentation is due to progression. The patient is currently on fulvestrant every 4 weeks. Would recommend continuation of the same unless pathology definitely shows progressive disease. As noted above, it would be reasonable to restage her in a few weeks otherwise, to see if there is progression or not. If no definite evidence of progression, she can continue on her current regimen which she has been tolerating well. The patient's ability to handle more aggressive regimens is somewhat questionable, given diminished performance status, as well as dementia. Office notes from 09/04 mention upcoming hearing for guardianship. Current Visit: Yes Status: Acute Code(s): C54.1 - MALIGNANT NEOPLASM OF ENDOMETRIUM SNOMED Code(s): 710792149
[2023-09-26 12:24] LABS: ABG Base Excess 8.4 mmol/L; ABG HCO3 32 mmol/L (21-25); ABG PCO2 43 mmHg (35-45); ABG PH 7.48 (7.35-7.45); ABG PO2 130 mmHg (83-108); ABG TCO2 33 mmol/L (19-24); Allen Test Performed? Yes
[2023-09-26 13:34] LABS: ABG Oxygen Saturation 98.8 % (94-97)
[2023-09-26 14:36] LABS: Glucose,Whole Blood 180 mg/dL (70-110)
--- NOTE | 2023-09-26 14:54 | XR ---
EXAM: XR chest 1V portable CLINICAL INDICATION:Female, 78 years old with history of Tube placement; [facility] COMPARISON: 09/25/2023 and 09/24/2023 TECHNIQUE: Chest single view. FINDINGS: Lines/tubes/devices: ETT tip 6.2 cm above the leanna. Left IJ central venous line tip over the SVC. N G/OG tube extends into the left abdomen with the tip beyond the field of view, but the sidehole proje cts over the gastric body. EKG leads and other extraneous densities over the chest. Cardiomediastinum: Cardiac silhouette appears stable, mildly enlarged. Unchanged mediastinal contours. Vasculature: No increased pulmonary vasculature. Lungs/pleura: Scattered chronic parenchymal changes again seen. Stable small left basilar pleural/parenchymal opaci ty. There could be a small right pleural effusion. There are markings over the right upper lung which have the appearance of 3 edges, judged likely due to overlapping structures and not pneumothorax; at tention on follow-up. Bones/soft tissues: Osseous structures are unchanged. There are mild scattered foci of soft tissue emphysema, less than o n the last prior. IMPRESSION: 1. Unchanged lines and tubes. 2. Stable appearance of the lungs, including small left basilar pleuroparenchymal opacity. 3. Mild soft tissue emphysema, continues to decrease.
--- NOTE | 2023-09-26 15:21 | P.PN ---
Subjective Progress Note Date: 09/26/23 78,years old female with past medical history of Atrial Fibrillation on Eliquis, CVA/TIA, GI Bleed, Hyperlipidemia, chronic GI bleed Attempted colonoscopy in 2021 showed a tortuous colon. Has known uterine adenocarcinoma. Received radiation treatment 2018. Then was lost to follow-up. Also supposed to followed up with radiation treatment at [facility]. Also had right-sided hydronephrosis in the past with right-sided ureteral stent. Patient now presents 1 day history of nausea vomiting abdominal pain. Patient not a good historian. Forgetful. She also had a history of uterine adenocarcinoma. Unclear who she followed up in the recent past. Found to have small bowel obstruction in the ER. NG tube to suction was placed. Was in A-fib with rapid ventricular rate. Tired. To be noted patient does not take any medications at home. 09/26/2023 --the patient is seen and evaluated in room at bedside; remains intubated on mechanical ventilator. -- Blood gas from today shows a pH of 7.49 with a pCO2 of 42 and pO2 of 108. -Chest x-ray showing some perihilar and lower lobe pulmonary infiltrates. ET tube is in a good location. The patient also has an NG tube in place and output is minimal at this point in time. No significant respiratory secretions. - She is still on a Cardizem drip at 5 mg an hour and her underlying cardiac rhythm is still in atrial fibrillation. Labs are reviewed and white cell count is at 30 with a hemoglobin 9.8 and platelet count of 152. Sodium is at 136 with a potassium level of 3.2. BUN is at 42 with a creatinine of 1.4. Serum bicarb is up to 26. -- patient remains on IV Zosyn. Objective - Vital Signs Vital signs: Vital Signs Temp 98.3 F 09/26/23 08:00 Pulse 74 09/26/23 09:00 Resp 14 09/26/23 09:00 BP 121/69 09/26/23 09:00 Pulse Ox 99 09/26/23 09:00 FiO2 40 09/26/23 09:00 Intake & Output 09/25/23 09/26/23 09/26/23 18:59 06:59 18:59 Intake Total 2271.224 1733.821 575 Output Total 380 330 240 Balance 9144.616 8047.821 335 Weight 87.2 kg Intake: IV 1800 1625 575 Dextrose 5% in Water 1, 1000 1625 125 000 ml @ 125 mls/hr IV . Q9H12M [facility] with Sodium Bicarb (1 Meq/ml) 150 ml Rx#:[id number] Lactated Ringers 1,000 ml 600 @ 150 mls/hr IV .Q6H40M [facility] Rx#:[id number] Magnesium Sulfate-D5w Pmx 100 1 gm In Dextrose/Water 1 100ml.bag @ 100 mls/hr IVPB ONCE ONE Rx#: [id number] Piperacillin-Tazobactam 3 200 .375 gm In Sodium Chloride 0.9% 100 ml @ 25 mls/hr IVPB Q8H [facility] Rx#: [id number] Potassium Chloride 20 meq 100 In Water For Injection 1 100ml.bag @ 50 mls/hr IVPB Q2H [facility] Rx#: [id number] Sodium Phosphate 15 mmol 250 In Dextrose 5% in Water 250 ml @ 127.5 mls/hr IVPB ONCE ONE Rx#: [id number] Intake, IV Titration 141.224 78.821 Amount propofoL 1,000 mg In 141.224 78.821 Empty Bag 1 bag @ 15 MCG/ KG/MIN 6.168 mls/hr IV . [id number] [facility] Rx#:[id number] TPN/PPN 330 30 Mvi, Adult No.4 with Vit 330 30 K 10 ml Trace (Conc-1Ml/ Dose) 1 ml In Amino Acid 5%-D20w+Lytes*E* 1,000 ml @ 30 mls/hr IV .Q24H [facility] Rx#:[id number] Output: Gastric Drainage 150 Urine 380 330 90 Other: Voiding Method Indwelling Catheter Indwelling Catheter - Exam GENERAL: alert EYES: Pupils equal. Conjunctiva mina l. HEENT: External appearance of nose and ears normal, oral cavity grossly normal NG tube to suction. NECK: JVD not raised; masses not palpable. HEART: Heart sounds are regular; no edema. LUNGS: Respiratory rate increased, decreased breath sounds ABDOMEN: Soft, non-tender, liver spleen not palpable, no masses palpable. PSYCH: Alert and oriented x3; mood and affect tired. MUSCULOSKELETAL:No Clubbing/cyanosis;muscles-grossly intact. - Labs CBC & Chem 7: 09/26/23 04:22 09/26/23 04:22 Labs: Abnormal Lab Results - Last 24 Hours (Table) 09/25/23 09/25/23 09/25/23 Range/Units 04:43 04:43 11:52 WBC (3.8-10.6) k/uL RBC (3.80-5.40) m/uL Hgb (11.4-16.0) gm/dL Hct (34.0-46.0) % MCV (80.0-100.0) fL Neutrophils # (1.3-7.7) k/uL Lymphocytes # (1.0-4.8) k/uL ABG pH (7.35-7.45) ABG HCO3 (21-25) mmol/L ABG Total CO2 (19-24) mmol/L ABG O2 Saturation (94-97) % Sodium (137-145) mmol/L Potassium (3.5-5.1) mmol/L BUN (7-17) mg/dL Creatinine (0.52-1.04) mg/dL Glucose (74-99) mg/dL POC Glucose (mg/dL) 367 H (70-110) mg/dL Hemoglobin A1c 6.7 H (<=6.0) % Calcium (8.4-10.2) mg/dL Phosphorus (2.5-4.5) mg/dL CA 15-3 Antigen 63.4 H (0.0-32.3) U/mL CA 125 Antigen 75.5 H (0.0-30.1) U/mL 09/25/23 09/25/23 09/26/23 Range/Units 16:12 20:03 00:15 WBC (3.8-10.6) k/uL RBC (3.80-5.40) m/uL Hgb (11.4-16.0) gm/dL Hct (34.0-46.0) % MCV (80.0-100.0) fL Neutrophils # (1.3-7.7) k/uL Lymphocytes # (1.0-4.8) k/uL ABG pH (7.35-7.45) ABG HCO3 (21-25) mmol/L ABG Total CO2 (19-24) mmol/L ABG O2 Saturation (94-97) % Sodium (137-145) mmol/L Potassium (3.5-5.1) mmol/L BUN (7-17) mg/dL Creatinine (0.52-1.04) mg/dL Glucose (74-99) mg/dL POC Glucose (mg/dL) 386 H 326 H 326 H (70-110) mg/dL Hemoglobin A1c (<=6.0) % Calcium (8.4-10.2) mg/dL Phosphorus (2.5-4.5) mg/dL CA 15-3 Antigen (0.0-32.3) U/mL CA 125 Antigen (0.0-30.1) U/mL 09/26/23 09/26/23 09/26/23 Range/Units 03:57 04:22 04:22 WBC 13.0 H (3.8-10.6) k/uL RBC 3.09 L (3.80-5.40) m/uL Hgb 9.8 L (11.4-16.0) gm/dL Hct 30.9 L (34.0-46.0) % MCV 100.1 H (80.0-100.0) fL Neutrophils # 12.0 H (1.3-7.7) k/uL Lymphocytes # 0.4 L (1.0-4.8) k/uL ABG pH (7.35-7.45) ABG HCO3 (21-25) mmol/L ABG Total CO2 (19-24) mmol/L ABG O2 Saturation (94-97) % Sodium 136 L (137-145) mmol/L Potassium 3.2 L (3.5-5.1) mmol/L BUN 42 H (7-17) mg/dL Creatinine 1.40 H (0.52-1.04) mg/dL Glucose 229 H (74-99) mg/dL POC Glucose (mg/dL) 234 H (70-110) mg/dL Hemoglobin A1c (<=6.0) % Calcium 7.8 L (8.4-10.2) mg/dL Phosphorus 2.4 L (2.5-4.5) mg/dL CA 15-3 Antigen (0.0-32.3) U/mL CA 125 Antigen (0.0-30.1) U/mL 09/26/23 09/26/23 Range/Units 06:06 08:01 WBC (3.8-10.6) k/uL RBC (3.80-5.40) m/uL Hgb (11.4-16.0) gm/dL Hct (34.0-46.0) % MCV (80.0-100.0) fL Neutrophils # (1.3-7.7) k/uL Lymphocytes # (1.0-4.8) k/uL ABG pH 7.49 H (7.35-7.45) ABG HCO3 32 H (21-25) mmol/L ABG Total CO2 33 H (19-24) mmol/L ABG O2 Saturation 99.0 H (94-97) % Sodium (137-145) mmol/L Potassium (3.5-5.1) mmol/L BUN (7-17) mg/dL Creatinine (0.52-1.04) mg/dL Glucose (74-99) mg/dL POC Glucose (mg/dL) 223 H (70-110) mg/dL Hemoglobin A1c (<=6.0) % Calcium (8.4-10.2) mg/dL Phosphorus (2.5-4.5) mg/dL CA 15-3 Antigen (0.0-32.3) U/mL CA 125 Antigen (0.0-30.1) U/mL Microbiology - Last 24 Hours (Table) 09/25/23 00:15 Gram Stain - Preliminary Sputum 09/24/23 16:11 Gram Stain - Preliminary Other - Other
[2023-09-26 15:59] LABS: Glucose,Whole Blood 188 mg/dL (70-110)
[2023-09-26] MEDS: MVI, ADULT NO.4 WITH VIT K 10 ML, TRACE (CONC-1ML/DOSE) 1 ML, SODIUM ACETATE 20 MEQ in ... IV SCH (18:26)
[2023-09-26 19:53] LABS: Glucose,Whole Blood 131 mg/dL (70-110)
[2023-09-27 00:13] LABS: Glucose,Whole Blood 177 mg/dL (70-110)
[2023-09-27 04:24] LABS: Glucose,Whole Blood 182 mg/dL (70-110)
[2023-09-27 06:28] LABS: ABG Base Excess 7.7 mmol/L; ABG HCO3 32 mmol/L (21-25); ABG PCO2 47 mmHg (35-45); ABG PH 7.44 (7.35-7.45); ABG PO2 121 mmHg (83-108); ABG TCO2 33 mmol/L (19-24); Allen Test Performed? Yes
[2023-09-27 06:34] LABS: Basophils % (A) 0 %; Eosinophils # (A) 0.1 k/uL (0-0.7); Eosinophils % (A) 0 %; HCT 30.3 % (34.0-46.0); HGB 9.7 gm/dL (11.4-16.0); Lymphocytes # (A) 0.7 k/uL (1.0-4.8); Lymphocytes % (A) 4 %; MCH 31.4 pg (25.0-35.0); MCHC 31.9 g/dL (31.0-37.0); MCV 98.4 fL (80.0-100.0); Mean Platelet Volume 9.8; Monocytes # (A) 0.7 k/uL (0-1.0); Monocytes % (A) 4 %; Neutrophils # (A) 13.9 k/uL (1.3-7.7); Neutrophils % (A) 90 %; Platelet Count 157 k/uL (150-450); RBC 3.08 m/uL (3.80-5.40); RDW 14.7 % (11.5-15.5); WBC 15.4 k/uL (3.8-10.6)
--- NOTE | 2023-09-27 07:24 | P.PN ---
Subjective Progress Note Date: 09/27/23 Principal diagnosis: Permanent atrial fibrillation The patient is a pleasant 78-year-old female patient with a past medical history significant for permanent atrial fibrillation not on anticoagulation because of history of vagina bleeding as well as multiple comorbid conditions including valvular heart disease and mild cardiomyopathy who was admitted to the hospital with abdominal discomfort and she was diagnosed with bowel obstruction and she underwent laparoscopic decompression. Currently the patient is intubated she is on mechanical ventilation. September 27, 2023 The patient was seen and evaluated this morning. She continues to be intubated on mechanical ventilation. She continues to be in atrial fibrillation which is permanent with overall controlled heart rate on the current dose of Cardizem. She is not on anticoagulation because of history of vaginal bleeding. The examination reveals irregular rhythm with a soft systolic murmur and diminished breathing sounds bilaterally and mild bilateral lower extremities edema Assessment Acute hypoxic respiratory failure Status post bowel obstruction Atrial fibrillation with uncontrolled heart rate Valvular heart disease Multiple comorbid conditions Plan Continue the current dose of Cardizem IV The patient cannot take any oral medication at this point Consider switching the patient to beta-roshni once she is not n.p.o. anymore Follow-up with the patient Objective - Vital Signs Vital signs: Vital Signs Temp 97.9 F 09/27/23 04:00 Pulse 71 09/27/23 07:00 Resp 14 09/27/23 07:00 BP 106/60 09/27/23 07:00 Pulse Ox 99 09/27/23 07:00 FiO2 40 09/27/23 07:00 Intake & Output 09/26/23 09/27/23 09/27/23 18:59 06:59 18:59 Intake Total 4.564 647.255 50 Output Total 509 355 65 Balance 1515.564 292.255 -15 Weight 88.5 kg Intake: IV 1525 550 50 Dextrose 5% in Water 1, 125 000 ml @ 125 mls/hr IV . Q9H12M [facility] with Sodium Bicarb (1 Meq/ml) 150 ml Rx#:[id number] Lactated Ringers 1,000 ml 550 550 50 @ 50 mls/hr IV .Q20H [facility] Rx#:[id number] Magnesium Sulfate-D5w Pmx 100 1 gm In Dextrose/Water 1 100ml.bag @ 100 mls/hr IVPB ONCE ONE Rx#: [id number] Piperacillin-Tazobactam 3 200 .375 gm In Sodium Chloride 0.9% 100 ml @ 25 mls/hr IVPB Q8H [facility] Rx#: [id number] Potassium Chloride 20 meq 200 In Water For Injection 1 100ml.bag @ 50 mls/hr IVPB Q2H [facility] Rx#: [id number] Potassium Chloride 20 meq 100 In Water For Injection 1 100ml.bag @ 50 mls/hr IVPB Q2H [facility] Rx#: [id number] Sodium Phosphate 15 mmol 250 In Dextrose 5% in Water 250 ml @ 127.5 mls/hr IVPB ONCE ONE Rx#: [id number] Intake, IV Titration 139.564 97.255 Amount Diltiazem 125 mg In 125 Sodium Chloride 0.9% 100 ml @ Per Protocol IV .Q0M [facility] Rx#:[id number] Norepinephrine 4 mg In 11.751 Sodium Chloride 0.9% 250 ml @ 0.03 MCG/KG/MIN 7. 834 mls/hr IV .Q24H [facility] Rx#:[id number] propofoL 1,000 mg In 14.564 85.504 Empty Bag 1 bag @ 15 MCG/ KG/MIN 6.168 mls/hr IV . [id number] [facility] Rx#:[id number] TPN/PPN 360 Mvi, Adult No.4 with Vit 30 K 10 ml Trace (Conc-1Ml/ Dose) 1 ml Sodium Acetate 20 meq In Amino Acid 5%- D20w+Lytes*E* 1,000 ml @ 30 mls/hr IV .Q24H [facility] Rx #:[id number] Mvi, Adult No.4 with Vit 330 K 10 ml Trace (Conc-1Ml/ Dose) 1 ml Sodium Phosphate 10 mmol Sodium Acetate 30 meq Potassium Acetate 10 meq Magnesium Sulfate gm 0.5 gm Calcium Gluconate 1 gm In Amino Acids 5 %/Dextrose 20 % 1 ,000 ml @ 30 mls/hr IV . Q24H [facility] Rx#:[id number] Output: Gastric Drainage 150 Urine 359 355 65 Other: Voiding Method Indwelling Catheter Indwelling Catheter - Labs CBC & Chem 7: 09/27/23 05:20 09/27/23 00:04 Labs: Abnormal Lab Results - Last 24 Hours (Table) 09/26/23 09/26/23 09/26/23 Range/Units 08:01 12:18 14:34 WBC (3.8-10.6) k/uL RBC (3.80-5.40) m/uL Hgb (11.4-16.0) gm/dL Hct (34.0-46.0) % Neutrophils # (1.3-7.7) k/uL Lymphocytes # (1.0-4.8) k/uL ABG pH 7.48 H (7.35-7.45) ABG pCO2 (35-45) mmHg ABG pO2 130 H (83-108) mmHg ABG HCO3 32 H (21-25) mmol/L ABG Total CO2 33 H (19-24) mmol/L ABG O2 Saturation 98.8 H (94-97) % Potassium (3.5-5.1) mmol/L POC Glucose (mg/dL) 223 H 180 H (70-110) mg/dL 09/26/23 09/26/23 09/26/23 Range/Units 15:58 16:25 19:52 WBC (3.8-10.6) k/uL RBC (3.80-5.40) m/uL Hgb (11.4-16.0) gm/dL Hct (34.0-46.0) % Neutrophils # (1.3-7.7) k/uL Lymphocytes # (1.0-4.8) k/uL ABG pH (7.35-7.45) ABG pCO2 (35-45) mmHg ABG pO2 (83-108) mmHg ABG HCO3 (21-25) mmol/L ABG Total CO2 (19-24) mmol/L ABG O2 Saturation (94-97) % Potassium 3.4 L (3.5-5.1) mmol/L POC Glucose (mg/dL) 188 H 131 H (70-110) mg/dL 09/27/23 09/27/23 09/27/23 Range/Units 00:11 04:22 05:20 WBC 15.4 H (3.8-10.6) k/uL RBC 3.08 L (3.80-5.40) m/uL Hgb 9.7 L (11.4-16.0) gm/dL Hct 30.3 L (34.0-46.0) % Neutrophils # 13.9 H (1.3-7.7) k/uL Lymphocytes # 0.7 L (1.0-4.8) k/uL ABG pH (7.35-7.45) ABG pCO2 (35-45) mmHg ABG pO2 (83-108) mmHg ABG HCO3 (21-25) mmol/L ABG Total CO2 (19-24) mmol/L ABG O2 Saturation (94-97) % Potassium (3.5-5.1) mmol/L POC Glucose (mg/dL) 177 H 182 H (70-110) mg/dL 09/27/23 Range/Units 06:21 WBC (3.8-10.6) k/uL RBC (3.80-5.40) m/uL Hgb (11.4-16.0) gm/dL Hct (34.0-46.0) % Neutrophils # (1.3-7.7) k/uL Lymphocytes # (1.0-4.8) k/uL ABG pH (7.35-7.45) ABG pCO2 47 H (35-45) mmHg ABG pO2 121 H (83-108) mmHg ABG HCO3 32 H (21-25) mmol/L ABG Total CO2 33 H (19-24) mmol/L ABG O2 Saturation 98.0 H (94-97) % Potassium (3.5-5.1) mmol/L POC Glucose (mg/dL) (70-110) mg/dL Microbiology - Last 24 Hours (Table) 09/25/23 00:15 Gram Stain - Preliminary Sputum Sputum Culture - Preliminary 09/24/23 18:45 Urine Culture - Final Urine,Voided 09/24/23 16:11 Gram Stain - Preliminary Other - Other Wound Culture - Preliminary Gram Neg Bacilli
[2023-09-27 07:41] LABS: African American GFR (CKD) 43 (>60 ml/min/1.73 sqM); Anion Gap 2 mmol/L; Blood Urea Nitrogen 41 mg/dL (7-17); Calcium 7.5 mg/dL (8.4-10.2); Carbon Dioxide 30 mmol/L (22-30); Chloride 104 mmol/L (98-107); Glucose 163 mg/dL (74-99); Magnesium 1.9 mg/dL (1.6-2.3); Non-African American GFR(CKD) 37 (>60 ml/min/1.73 sqM); Phosphorus 2.9 mg/dL (2.5-4.5); Potassium 3.9 mmol/L (3.5-5.1); Sodium 136 mmol/L (137-145)
[2023-09-27] MEDS ORDERED: Potassium Replacement Protocol 1 EACH MISC MISCELLANE PRN (07:46)
[2023-09-27] MEDS ORDERED: Magnesium Replacement Protocol 1 EACH MISC MISCELLANE PRN (07:47)
--- NOTE | 2023-09-27 08:12 | XR ---
EXAMINATION TYPE: XR chest 1V portable DATE OF EXAM: 09/27/2023 4:48 AM CLINICAL INDICATION:Female, 78 years old with history of Tube placement; [facility] COMPARISON: Chest radiographs from 09/26/2023 TECHNIQUE: XR chest 1V portable Frontal view of the chest. FINDINGS: Lungs/Pleura: There is no evidence of pleural effusion, focal consolidation, or pneumothorax. Pulmonary vascularity: Unremarkable. Heart/mediastinum: Cardiomediastinal silhouette is enlarged and stable. Musculoskeletal: No acute osseous pathology. Other findings: None Lines/Tubes: Endotracheal tube with distal tip 5.8 cm above the leanna. Nasogastric tube with its distal tip and side-port projecting under the diaphragm. Left central venous catheter with distal tip at the cavoatrial junction. IMPRESSION: Stable exam, stable support tubes/line.
[2023-09-27] MEDS: POTASSIUM CHLORIDE 10 MEQ in WATER FOR INJECTION 1 100ML.BAG IVPB SCH (08:53)
[2023-09-27 08:57] LABS: Glucose,Whole Blood 174 mg/dL (70-110)
[2023-09-27] MEDS: SODIUM CHLORIDE 0.9% 500 ML 500 ML IV SCH (10:55)
--- NOTE | 2023-09-27 11:07 | P.PN ---
Subjective patient is seen for follow-up for acute kidney injury. Good urine output. serum creatinine decreased to 1.3. Maintained on IV fluids at 50 mL an hour and also on TPN at 30 mL an hour. Patient remains on the vent.FiO2 at 35%. Objective - Vital Signs Vital signs: Vital Signs Temp 97.8 F 09/27/23 08:00 Pulse 71 09/27/23 10:00 Resp 14 09/27/23 10:00 BP 107/71 09/27/23 10:00 Pulse Ox 99 09/27/23 10:00 FiO2 35 09/27/23 09:57 Intake & Output 09/26/23 09/27/23 09/27/23 18:59 06:59 18:59 Intake Total 2024.564 889.504 601.229 Output Total 509 355 185 Balance 1515.564 534.504 416.229 Weight 88.5 kg Intake: IV 1525 550 490 Dextrose 5% in Water 1, 125 000 ml @ 125 mls/hr IV . Q9H12M [facility] with Sodium Bicarb (1 Meq/ml) 150 ml Rx#:[id number] Lactated Ringers 1,000 ml 550 550 200 @ 50 mls/hr IV .Q20H [facility] Rx#:[id number] Magnesium Sulfate-D5w Pmx 100 1 gm In Dextrose/Water 1 100ml.bag @ 100 mls/hr IVPB ONCE ONE Rx#: [id number] Mvi, Adult No.4 with Vit 90 K 10 ml Trace (Conc-1Ml/ Dose) 1 ml Sodium Acetate 20 meq In Amino Acid 5%- D20w+Lytes*E* 1,000 ml @ 30 mls/hr IV .Q24H [facility] Rx #:[id number] Piperacillin-Tazobactam 3 200 .375 gm In Sodium Chloride 0.9% 100 ml @ 25 mls/hr IVPB Q8H [facility] Rx#: [id number] Potassium Chloride 20 meq 200 In Water For Injection 1 100ml.bag @ 50 mls/hr IVPB Q2H [facility] Rx#: [id number] Potassium Chloride 20 meq 100 200 In Water For Injection 1 100ml.bag @ 50 mls/hr IVPB Q2H [facility] Rx#: [id number] Sodium Phosphate 15 mmol 250 In Dextrose 5% in Water 250 ml @ 127.5 mls/hr IVPB ONCE ONE Rx#: [id number] Intake, IV Titration 139.564 339.504 111.229 Amount Diltiazem 125 mg In 125 Sodium Chloride 0.9% 100 ml @ Per Protocol IV .Q0M [facility] Rx#:[id number] Norepinephrine 4 mg In 254.000 11.229 Sodium Chloride 0.9% 250 ml @ 0.03 MCG/KG/MIN 7. 834 mls/hr IV .Q24H [facility] Rx#:[id number] propofoL 1,000 mg In 14.564 85.504 100 Empty Bag 1 bag @ 15 MCG/ KG/MIN 6.168 mls/hr IV . [id number] [facility] Rx#:[id number] TPN/PPN 360 Mvi, Adult No.4 with Vit 30 K 10 ml Trace (Conc-1Ml/ Dose) 1 ml Sodium Acetate 20 meq In Amino Acid 5%- D20w+Lytes*E* 1,000 ml @ 30 mls/hr IV .Q24H [facility] Rx #:[id number] Mvi, Adult No.4 with Vit 330 K 10 ml Trace (Conc-1Ml/ Dose) 1 ml Sodium Phosphate 10 mmol Sodium Acetate 30 meq Potassium Acetate 10 meq Magnesium Sulfate gm 0.5 gm Calcium Gluconate 1 gm In Amino Acids 5 %/Dextrose 20 % 1 ,000 ml @ 30 mls/hr IV . Q24H [facility] Rx#:[id number] Output: Gastric Drainage 150 Urine 359 355 185 Other: Voiding Method Indwelling Catheter Indwelling Catheter - Exam patient is sedated and on the vent. Examination of the heart S1 and S2 Examination of the lungs bilateral breath sounds are heard Abdomen is soft examination of lower extremities shows edema 2+ bilaterally ANGIOGRAPHY NURSE exam could not be performed - Labs CBC & Chem 7: 09/27/23 05:20 09/27/23 05:20 Labs: Abnormal Lab Results - Last 24 Hours (Table) 09/26/23 09/26/23 09/26/23 Range/Units 12:18 14:34 15:58 WBC (3.8-10.6) k/uL RBC (3.80-5.40) m/uL Hgb (11.4-16.0) gm/dL Hct (34.0-46.0) % Neutrophils # (1.3-7.7) k/uL Lymphocytes # (1.0-4.8) k/uL ABG pH 7.48 H (7.35-7.45) ABG pCO2 (35-45) mmHg ABG pO2 130 H (83-108) mmHg ABG HCO3 32 H (21-25) mmol/L ABG Total CO2 33 H (19-24) mmol/L ABG O2 Saturation 98.8 H (94-97) % Sodium (137-145) mmol/L Potassium (3.5-5.1) mmol/L BUN (7-17) mg/dL Creatinine (0.52-1.04) mg/dL Glucose (74-99) mg/dL POC Glucose (mg/dL) 180 H 188 H (70-110) mg/dL Calcium (8.4-10.2) mg/dL 09/26/23 09/26/23 09/27/23 Range/Units 16:25 19:52 00:11 WBC (3.8-10.6) k/uL RBC (3.80-5.40) m/uL Hgb (11.4-16.0) gm/dL Hct (34.0-46.0) % Neutrophils # (1.3-7.7) k/uL Lymphocytes # (1.0-4.8) k/uL ABG pH (7.35-7.45) ABG pCO2 (35-45) mmHg ABG pO2 (83-108) mmHg ABG HCO3 (21-25) mmol/L ABG Total CO2 (19-24) mmol/L ABG O2 Saturation (94-97) % Sodium (137-145) mmol/L Potassium 3.4 L (3.5-5.1) mmol/L BUN (7-17) mg/dL Creatinine (0.52-1.04) mg/dL Glucose (74-99) mg/dL POC Glucose (mg/dL) 131 H 177 H (70-110) mg/dL Calcium (8.4-10.2) mg/dL 09/27/23 09/27/23 09/27/23 Range/Units 04:22 05:20 05:20 WBC 15.4 H (3.8-10.6) k/uL RBC 3.08 L (3.80-5.40) m/uL Hgb 9.7 L (11.4-16.0) gm/dL Hct 30.3 L (34.0-46.0) % Neutrophils # 13.9 H (1.3-7.7) k/uL Lymphocytes # 0.7 L (1.0-4.8) k/uL ABG pH (7.35-7.45) ABG pCO2 (35-45) mmHg ABG pO2 (83-108) mmHg ABG HCO3 (21-25) mmol/L ABG Total CO2 (19-24) mmol/L ABG O2 Saturation (94-97) % Sodium 136 L (137-145) mmol/L Potassium (3.5-5.1) mmol/L BUN 41 H (7-17) mg/dL Creatinine 1.36 H (0.52-1.04) mg/dL Glucose 163 H (74-99) mg/dL POC Glucose (mg/dL) 182 H (70-110) mg/dL Calcium 7.5 L (8.4-10.2) mg/dL 09/27/23 09/27/23 Range/Units 06:21 08:56 WBC (3.8-10.6) k/uL RBC (3.80-5.40) m/uL Hgb (11.4-16.0) gm/dL Hct (34.0-46.0) % Neutrophils # (1.3-7.7) k/uL Lymphocytes # (1.0-4.8) k/uL ABG pH (7.35-7.45) ABG pCO2 47 H (35-45) mmHg ABG pO2 121 H (83-108) mmHg ABG HCO3 32 H (21-25) mmol/L ABG Total CO2 33 H (19-24) mmol/L ABG O2 Saturation 98.0 H (94-97) % Sodium (137-145) mmol/L Potassium (3.5-5.1) mmol/L BUN (7-17) mg/dL Creatinine (0.52-1.04) mg/dL Glucose (74-99) mg/dL POC Glucose (mg/dL) 174 H (70-110) mg/dL Calcium (8.4-10.2) mg/dL Microbiology - Last 24 Hours (Table) 09/24/23 16:11 Gram Stain - Preliminary Other - Other Wound Culture - Preliminary Klebsiella pneumoniae Escherichia coli 09/25/23 00:15 Gram Stain - Final Sputum Sputum Culture - Final 09/24/23 18:45 Urine Culture - Final Urine,Voided Assessment and Plan Assessment: 1. Acute kidney injury secondary to vasomotor nephropathy from poor intake. Creatinine peaked at 1.76 this admission and is improved to 1.[address] scan showed right-sided hydronephrosis. Patient has a right ureteral stent. Urology following. 2. Chronic kidney disease stage IIIb with baseline creatinine 1.5 secondary to nephrosclerosis. 3. Small bowel obstruction being followed by surgery. Status post laparoscopic decompressive enterostomy with closure of small bowel and proximal ileum September 24, 2023. 4. Hypernatremia from lack of oral water intake. Improved. 5. Hypokalemia from poor intake and intracellular shifting from IV bicarb. 6. A-fib with RVR maintained on Cardizem drip. Cardiology following. 7. Metabolic acidosis secondary to acute kidney injury and IV fluids. Status post bicarb drip. Improved. 8. Hypophosphatemia from poor intake. Plan: DC normal saline Continue TPN Repeat labs in a.m.
[2023-09-27] MEDS: MAGNESIUM SULFATE-D5W PMX 1 GM in DEXTROSE/WATER 1 100ML.BAG IVPB ONE (11:08)
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
--- NOTE | 2023-09-27 11:37 | P.PN ---
Subjective Progress Note Date: 09/27/23 CHIEF COMPLAINT: Abdominal pain HISTORY OF PRESENT ILLNESS: Patient is postop day #3 status post Robotic- assisted da Radha Xi laparoscopic decompressive enterostomy with closure small bowel, proximal ileum andRobotic-assisted da Radha Xi laparoscopic small bowel external bypass proximal ileum to mid ileum. Patient is currently in the ICU intubated and on mechanical ventilation. She is undergoing a weaning trial today. She is on a small dose of Levophed. TPN for nutrition support. Urine is dark. Afebrile. WBC up from 13-15.4 Hgb 9.7 platelets 157 sodium is 136 potassium 3.9 creatinine 1.36 CA-125 75.5 and CA 15-3 63.4 PHYSICAL EXAM: VITAL SIGNS: Reviewed GENERAL: Well-developed in no acute distress. HEENT: No sclera icterus. Extraocular movements grossly intact. Moist buccal mucosa. Head is atraumatic, normocephalic. Hears conversational speech. No nasal drainage. NECK: Supple without lymphadenopathy. CHEST: Non-labored respirations and equal bilateral excursions. CARDIOVASCULAR: Palpable 2+ radial pulses. ABDOMEN: Soft. Nondistended. MUSCULOSKELETAL: No clubbing or cyanosis. NEUROLOGIC: No focal or lateralizing signs. Cranial nerves II through XII grossly intact. PSYCH: Appropriate affect. Awake and alert. Able to answer some questions. SKIN: Well perfused. Good skin turgor. ASSESSMENT: 1. 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 2. Dementia 3. Acute hypoxic respiratory failure 4. Chronic atrial fibrillation 5. History of endometrial cancer PLAN: 1. May remove NG tube with extubation. 2. Start ice chips and popsicles upon extubation. May advance diet as tolerated after. 3. Awaiting pathology report. Oncology following. Physician Lard Refiner note has been reviewed by physician. Signing provider agrees with the documented findings, assessment, and plan of care. Objective - Vital Signs Vital signs: Vital Signs Temp 97.8 F 09/27/23 08:00 Pulse 73 09/27/23 11:00 Resp 14 09/27/23 11:00 BP 120/71 09/27/23 11:00 Pulse Ox 99 09/27/23 11:00 FiO2 35 09/27/23 09:57 Intake & Output 09/26/23 09/27/23 09/27/23 18:59 06:59 18:59 Intake Total 2024.564 889.504 851.229 Output Total 509 355 225 Balance 1515.564 534.504 626.229 Weight 88.5 kg Intake: IV 1525 550 620 Dextrose 5% in Water 1, 125 000 ml @ 125 mls/hr IV . Q9H12M [facility] with Sodium Bicarb (1 Meq/ml) 150 ml Rx#:[id number] Lactated Ringers 1,000 ml 550 550 200 @ 50 mls/hr IV .Q20H [facility] Rx#:[id number] Magnesium Sulfate-D5w Pmx 100 1 gm In Dextrose/Water 1 100ml.bag @ 100 mls/hr IVPB ONCE ONE Rx#: [id number] Mvi, Adult No.4 with Vit 120 K 10 ml Trace (Conc-1Ml/ Dose) 1 ml Sodium Acetate 20 meq In Amino Acid 5%- D20w+Lytes*E* 1,000 ml @ 55 mls/hr IV .[id number] [facility] Rx#:[id number] Piperacillin-Tazobactam 3 200 100 .375 gm In Sodium Chloride 0.9% 100 ml @ 25 mls/hr IVPB Q8H [facility] Rx#: [id number] Potassium Chloride 20 meq 200 In Water For Injection 1 100ml.bag @ 50 mls/hr IVPB Q2H [facility] Rx#: [id number] Potassium Chloride 20 meq 100 200 In Water For Injection 1 100ml.bag @ 50 mls/hr IVPB Q2H [facility] Rx#: [id number] Sodium Phosphate 15 mmol 250 In Dextrose 5% in Water 250 ml @ 127.5 mls/hr IVPB ONCE ONE Rx#: [id number] Intake, IV Titration 139.564 339.504 231.229 Amount Diltiazem 125 mg In 125 Sodium Chloride 0.9% 100 ml @ Per Protocol IV .Q0M [facility] Rx#:[id number] Magnesium Sulfate-D5w Pmx 100 1 gm In Dextrose/Water 1 100ml.bag @ 100 mls/hr IVPB ONCE ONE Rx#: [id number] Norepinephrine 4 mg In 254.000 11.229 Sodium Chloride 0.9% 250 ml @ 0.03 MCG/KG/MIN 7. 834 mls/hr IV .Q24H [facility] Rx#:[id number] Sodium Chloride 0.9% 500 20 ml 500 ml @ 20 mls/hr IV .Q24H [facility] Rx#:[id number] propofoL 1,000 mg In 14.564 85.504 100 Empty Bag 1 bag @ 15 MCG/ KG/MIN 6.168 mls/hr IV . [id number] [facility] Rx#:[id number] TPN/PPN 360 Mvi, Adult No.4 with Vit 30 K 10 ml Trace (Conc-1Ml/ Dose) 1 ml Sodium Acetate 20 meq In Amino Acid 5%- D20w+Lytes*E* 1,000 ml @ 55 mls/hr IV .[id number] [facility] Rx#:[id number] Mvi, Adult No.4 with Vit 330 K 10 ml Trace (Conc-1Ml/ Dose) 1 ml Sodium Phosphate 10 mmol Sodium Acetate 30 meq Potassium Acetate 10 meq Magnesium Sulfate gm 0.5 gm Calcium Gluconate 1 gm In Amino Acids 5 %/Dextrose 20 % 1 ,000 ml @ 30 mls/hr IV . Q24H [facility] Rx#:[id number] Output: Gastric Drainage 150 Urine 359 355 225 Other: Voiding Method Indwelling Catheter Indwelling Catheter - Labs CBC & Chem 7: 09/27/23 05:20 09/27/23 05:20 Labs: Abnormal Lab Results - Last 24 Hours (Table) 09/26/23 09/26/23 09/26/23 Range/Units 12:18 14:34 15:58 WBC (3.8-10.6) k/uL RBC (3.80-5.40) m/uL Hgb (11.4-16.0) gm/dL Hct (34.0-46.0) % Neutrophils # (1.3-7.7) k/uL Lymphocytes # (1.0-4.8) k/uL ABG pH 7.48 H (7.35-7.45) ABG pCO2 (35-45) mmHg ABG pO2 130 H (83-108) mmHg ABG HCO3 32 H (21-25) mmol/L ABG Total CO2 33 H (19-24) mmol/L ABG O2 Saturation 98.8 H (94-97) % Sodium (137-145) mmol/L Potassium (3.5-5.1) mmol/L BUN (7-17) mg/dL Creatinine (0.52-1.04) mg/dL Glucose (74-99) mg/dL POC Glucose (mg/dL) 180 H 188 H (70-110) mg/dL Calcium (8.4-10.2) mg/dL 09/26/23 09/26/23 09/27/23 Range/Units 16:25 19:52 00:11 WBC (3.8-10.6) k/uL RBC (3.80-5.40) m/uL Hgb (11.4-16.0) gm/dL Hct (34.0-46.0) % Neutrophils # (1.3-7.7) k/uL Lymphocytes # (1.0-4.8) k/uL ABG pH (7.35-7.45) ABG pCO2 (35-45) mmHg ABG pO2 (83-108) mmHg ABG HCO3 (21-25) mmol/L ABG Total CO2 (19-24) mmol/L ABG O2 Saturation (94-97) % Sodium (137-145) mmol/L Potassium 3.4 L (3.5-5.1) mmol/L BUN (7-17) mg/dL Creatinine (0.52-1.04) mg/dL Glucose (74-99) mg/dL POC Glucose (mg/dL) 131 H 177 H (70-110) mg/dL Calcium (8.4-10.2) mg/dL 09/27/23 09/27/23 09/27/23 Range/Units 04:22 05:20 05:20 WBC 15.4 H (3.8-10.6) k/uL RBC 3.08 L (3.80-5.40) m/uL Hgb 9.7 L (11.4-16.0) gm/dL Hct 30.3 L (34.0-46.0) % Neutrophils # 13.9 H (1.3-7.7) k/uL Lymphocytes # 0.7 L (1.0-4.8) k/uL ABG pH (7.35-7.45) ABG pCO2 (35-45) mmHg ABG pO2 (83-108) mmHg ABG HCO3 (21-25) mmol/L ABG Total CO2 (19-24) mmol/L ABG O2 Saturation (94-97) % Sodium 136 L (137-145) mmol/L Potassium (3.5-5.1) mmol/L BUN 41 H (7-17) mg/dL Creatinine 1.36 H (0.52-1.04) mg/dL Glucose 163 H (74-99) mg/dL POC Glucose (mg/dL) 182 H (70-110) mg/dL Calcium 7.5 L (8.4-10.2) mg/dL 09/27/23 09/27/23 Range/Units 06:21 08:56 WBC (3.8-10.6) k/uL RBC (3.80-5.40) m/uL Hgb (11.4-16.0) gm/dL Hct (34.0-46.0) % Neutrophils # (1.3-7.7) k/uL Lymphocytes # (1.0-4.8) k/uL ABG pH (7.35-7.45) ABG pCO2 47 H (35-45) mmHg ABG pO2 121 H (83-108) mmHg ABG HCO3 32 H (21-25) mmol/L ABG Total CO2 33 H (19-24) mmol/L ABG O2 Saturation 98.0 H (94-97) % Sodium (137-145) mmol/L Potassium (3.5-5.1) mmol/L BUN (7-17) mg/dL Creatinine (0.52-1.04) mg/dL Glucose (74-99) mg/dL POC Glucose (mg/dL) 174 H (70-110) mg/dL Calcium (8.4-10.2) mg/dL Microbiology - Last 24 Hours (Table) 09/24/23 16:11 Gram Stain - Preliminary Other - Other Wound Culture - Preliminary Klebsiella pneumoniae Escherichia coli 09/25/23 00:15 Gram Stain - Final Sputum Sputum Culture - Final 09/24/23 18:45 Urine Culture - Final Urine,Voided
[2023-09-27 11:57] LABS: Glucose,Whole Blood 216 mg/dL (70-110)
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
--- NOTE | 2023-09-27 15:00 | P.PN ---
Subjective Progress Note Date: 09/27/23 Principal diagnosis: Endometrial carcinoma In follow-up today patient remains sedated and intubated. There are plans for trial weaning today. Objective - Vital Signs Vital signs: Vital Signs Temp 97.8 F 09/27/23 08:00 Pulse 73 09/27/23 11:00 Resp 14 09/27/23 11:00 BP 120/71 09/27/23 11:00 Pulse Ox 99 09/27/23 11:00 FiO2 35 09/27/23 09:57 Intake & Output 09/26/23 09/27/23 09/27/23 18:59 06:59 18:59 Intake Total 2024.564 889.504 851.229 Output Total 509 355 225 Balance 1515.564 534.504 626.229 Weight 88.5 kg Intake: IV 1525 550 620 Dextrose 5% in Water 1, 125 000 ml @ 125 mls/hr IV . Q9H12M [facility] with Sodium Bicarb (1 Meq/ml) 150 ml Rx#:[id number] Lactated Ringers 1,000 ml 550 550 200 @ 50 mls/hr IV .Q20H [facility] Rx#:[id number] Magnesium Sulfate-D5w Pmx 100 1 gm In Dextrose/Water 1 100ml.bag @ 100 mls/hr IVPB ONCE ONE Rx#: [id number] Mvi, Adult No.4 with Vit 120 K 10 ml Trace (Conc-1Ml/ Dose) 1 ml Sodium Acetate 20 meq In Amino Acid 5%- D20w+Lytes*E* 1,000 ml @ 55 mls/hr IV .[id number] [facility] Rx#:[id number] Piperacillin-Tazobactam 3 200 100 .375 gm In Sodium Chloride 0.9% 100 ml @ 25 mls/hr IVPB Q8H [facility] Rx#: [id number] Potassium Chloride 20 meq 200 In Water For Injection 1 100ml.bag @ 50 mls/hr IVPB Q2H [facility] Rx#: [id number] Potassium Chloride 20 meq 100 200 In Water For Injection 1 100ml.bag @ 50 mls/hr IVPB Q2H [facility] Rx#: [id number] Sodium Phosphate 15 mmol 250 In Dextrose 5% in Water 250 ml @ 127.5 mls/hr IVPB ONCE ONE Rx#: [id number] Intake, IV Titration 139.564 339.504 231.229 Amount Diltiazem 125 mg In 125 Sodium Chloride 0.9% 100 ml @ Per Protocol IV .Q0M [facility] Rx#:[id number] Magnesium Sulfate-D5w Pmx 100 1 gm In Dextrose/Water 1 100ml.bag @ 100 mls/hr IVPB ONCE ONE Rx#: [id number] Norepinephrine 4 mg In 254.000 11.229 Sodium Chloride 0.9% 250 ml @ 0.03 MCG/KG/MIN 7. 834 mls/hr IV .Q24H [facility] Rx#:[id number] Sodium Chloride 0.9% 500 20 ml 500 ml @ 20 mls/hr IV .Q24H [facility] Rx#:[id number] propofoL 1,000 mg In 14.564 85.504 100 Empty Bag 1 bag @ 15 MCG/ KG/MIN 6.168 mls/hr IV . [id number] [facility] Rx#:[id number] TPN/PPN 360 Mvi, Adult No.4 with Vit 30 K 10 ml Trace (Conc-1Ml/ Dose) 1 ml Sodium Acetate 20 meq In Amino Acid 5%- D20w+Lytes*E* 1,000 ml @ 55 mls/hr IV .[id number] [facility] Rx#:[id number] Mvi, Adult No.4 with Vit 330 K 10 ml Trace (Conc-1Ml/ Dose) 1 ml Sodium Phosphate 10 mmol Sodium Acetate 30 meq Potassium Acetate 10 meq Magnesium Sulfate gm 0.5 gm Calcium Gluconate 1 gm In Amino Acids 5 %/Dextrose 20 % 1 ,000 ml @ 30 mls/hr IV . Q24H [facility] Rx#:[id number] Output: Gastric Drainage 150 Urine 359 355 225 Other: Voiding Method Indwelling Catheter Indwelling Catheter - Constitutional General appearance: Present: average body habitus, no acute distress - Respiratory Details: sedated and ventilated - Cardiovascular Details: RRR on monitor - Peripheral edema leg Peripheral Edema: bilateral: Trace - Gastrointestinal Gastrointestinal Comment(s): no palpable masses or ascites General gastrointestinal: Present: soft - Genitourinary Genitourinary Comment(s): Tea colored urine present and Crockett catheter collection device - Psychiatric Psychiatric Comment(s): sedated Psychiatric: Absent: A&O x's 3, appropriate affect, intact judgment & insight - Labs CBC & Chem 7: 09/27/23 05:20 09/27/23 05:20 Labs: Abnormal Lab Results - Last 24 Hours (Table) 09/26/23 09/26/23 09/26/23 Range/Units 12:18 14:34 15:58 WBC (3.8-10.6) k/uL RBC (3.80-5.40) m/uL Hgb (11.4-16.0) gm/dL Hct (34.0-46.0) % Neutrophils # (1.3-7.7) k/uL Lymphocytes # (1.0-4.8) k/uL ABG pH 7.48 H (7.35-7.45) ABG pCO2 (35-45) mmHg ABG pO2 130 H (83-108) mmHg ABG HCO3 32 H (21-25) mmol/L ABG Total CO2 33 H (19-24) mmol/L ABG O2 Saturation 98.8 H (94-97) % Sodium (137-145) mmol/L Potassium (3.5-5.1) mmol/L BUN (7-17) mg/dL Creatinine (0.52-1.04) mg/dL Glucose (74-99) mg/dL POC Glucose (mg/dL) 180 H 188 H (70-110) mg/dL Calcium (8.4-10.2) mg/dL 09/26/23 09/26/23 09/27/23 Range/Units 16:25 19:52 00:11 WBC (3.8-10.6) k/uL RBC (3.80-5.40) m/uL Hgb (11.4-16.0) gm/dL Hct (34.0-46.0) % Neutrophils # (1.3-7.7) k/uL Lymphocytes # (1.0-4.8) k/uL ABG pH (7.35-7.45) ABG pCO2 (35-45) mmHg ABG pO2 (83-108) mmHg ABG HCO3 (21-25) mmol/L ABG Total CO2 (19-24) mmol/L ABG O2 Saturation (94-97) % Sodium (137-145) mmol/L Potassium 3.4 L (3.5-5.1) mmol/L BUN (7-17) mg/dL Creatinine (0.52-1.04) mg/dL Glucose (74-99) mg/dL POC Glucose (mg/dL) 131 H 177 H (70-110) mg/dL Calcium (8.4-10.2) mg/dL 09/27/23 09/27/23 09/27/23 Range/Units 04:22 05:20 05:20 WBC 15.4 H (3.8-10.6) k/uL RBC 3.08 L (3.80-5.40) m/uL Hgb 9.7 L (11.4-16.0) gm/dL Hct 30.3 L (34.0-46.0) % Neutrophils # 13.9 H (1.3-7.7) k/uL Lymphocytes # 0.7 L (1.0-4.8) k/uL ABG pH (7.35-7.45) ABG pCO2 (35-45) mmHg ABG pO2 (83-108) mmHg ABG HCO3 (21-25) mmol/L ABG Total CO2 (19-24) mmol/L ABG O2 Saturation (94-97) % Sodium 136 L (137-145) mmol/L Potassium (3.5-5.1) mmol/L BUN 41 H (7-17) mg/dL Creatinine 1.36 H (0.52-1.04) mg/dL Glucose 163 H (74-99) mg/dL POC Glucose (mg/dL) 182 H (70-110) mg/dL Calcium 7.5 L (8.4-10.2) mg/dL 09/27/23 09/27/23 Range/Units 06:21 08:56 WBC (3.8-10.6) k/uL RBC (3.80-5.40) m/uL Hgb (11.4-16.0) gm/dL Hct (34.0-46.0) % Neutrophils # (1.3-7.7) k/uL Lymphocytes # (1.0-4.8) k/uL ABG pH (7.35-7.45) ABG pCO2 47 H (35-45) mmHg ABG pO2 121 H (83-108) mmHg ABG HCO3 32 H (21-25) mmol/L ABG Total CO2 33 H (19-24) mmol/L ABG O2 Saturation 98.0 H (94-97) % Sodium (137-145) mmol/L Potassium (3.5-5.1) mmol/L BUN (7-17) mg/dL Creatinine (0.52-1.04) mg/dL Glucose (74-99) mg/dL POC Glucose (mg/dL) 174 H (70-110) mg/dL Calcium (8.4-10.2) mg/dL Microbiology - Last 24 Hours (Table) 09/24/23 16:11 Gram Stain - Preliminary Other - Other Wound Culture - Preliminary Klebsiella pneumoniae Escherichia coli 09/25/23 00:15 Gram Stain - Final Sputum Sputum Culture - Final 09/24/23 18:45 Urine Culture - Final Urine,Voided Assessment and Plan (1) Small bowel obstruction Current Visit: Yes Status: Acute Priority: High Code(s): K56.609 - UNSP INTESTNL OBST, UNSP TO PARTIAL VERSUS COMPLETE OBST SNOMED Code(s): 170088092 (2) Recurrent carcinoma of endometrium Current Visit: Yes Status: Acute Priority: Medium Code(s): C54.1 - MALIGN ANT NEOPLASM OF ENDOMETRIUM SNOMED Code(s): 016013988 (3) Anemia Current Visit: Yes Status: Acute Priority: Medium Code(s): D64.9 - ANEMIA, UNSPECIFIED SNOMED Code(s): 484059748 Plan: SBO -Secondary to adhesions of the small bowel to the right sided pelvic mass. Status post bowel to bowel bypass. Ascites and cytology and biopsy from adhesions and the mass pending. -Recurrent endometrial cancer, currently on treatment. Patient has been receiving fluvestrant injections monthly. Recent imaging did not show evidence of progression. Uncertain at this time if obstruction is because of cancer progression or progressive in of adhesions in the area of the tumor because of treatment effect. -Pending pathology and cytology. If ascites is positive, likely disease progression. If negative, repeat imaging recheck tumor markers about 3 to 4 weeks after surgery. -Defer postop care to surgery Recurrent endometrial carcinoma -Mass in the right pelvis representing known malignancy. Pending cytology and pathology from recent surgery to determine if SBO secondary to adhesions from treatment or true progression. -Continuation of fulvestrant monthly unless confirmed disease progression Anemia -Postop. Likely combination of surgery, dilution from fluids. -Hemoglobin stable at this time. Transfuse for hemoglobin less than 7 or if patient is symptomatic -Basic anemia workup will be ordered Doctor attests: I performed a history and physical examination of this patient, developed impression and plan of care. Discussed with dictator. I agree with dictators note, documented as a scribe.
[2023-09-27 16:12] LABS: Glucose,Whole Blood 177 mg/dL (70-110)
[2023-09-27 16:18] LABS: ABG Base Excess 6.8 mmol/L; ABG HCO3 29 mmol/L (21-25); ABG PCO2 34 mmHg (35-45); ABG PH 7.54 (7.35-7.45); ABG PO2 90 mmHg (83-108); ABG TCO2 30 mmol/L (19-24); Allen Test Performed? Yes
[2023-09-27 16:22] LABS: ABG Oxygen Saturation 98.5 % (94-97)
[2023-09-27] MEDS: MVI, ADULT NO.4 WITH VIT K 10 ML, TRACE (CONC-1ML/DOSE) 1 ML, POTASSIUM CHLORIDE 40 MEQ... IV SCH (17:39)
[2023-09-27] MEDS ORDERED: MVI, ADULT NO.4 WITH VIT K 10 ML, TRACE (CONC-1ML/DOSE) 1 ML, POTASSIUM CHLORIDE 40 MEQ... IV SCH (18:00)
[2023-09-27 19:49] LABS: Glucose,Whole Blood 209 mg/dL (70-110)
[2023-09-28 00:24] LABS: Glucose,Whole Blood 246 mg/dL (70-110)
[2023-09-28 05:01] LABS: Glucose,Whole Blood 285 mg/dL (70-110)
[2023-09-28 07:09] LABS: Basophils % (A) 0 %; Eosinophils # (A) 0.1 k/uL (0-0.7); Eosinophils % (A) 1 %; HCT 29.2 % (34.0-46.0); Hypochromasia Moderate; Lymphocytes # (A) 0.7 k/uL (1.0-4.8); Lymphocytes % (A) 7 %; MCH 31.2 pg (25.0-35.0); MCHC 30.7 g/dL (31.0-37.0); MCV 101.7 fL (80.0-100.0); Macrocytosis Slight; Mean Platelet Volume 10.3; Monocytes # (A) 0.6 k/uL (0-1.0); Monocytes % (A) 6 %; Neutrophils # (A) 8.5 k/uL (1.3-7.7); Neutrophils % (A) 86 %; Platelet Count 148 k/uL (150-450); RBC 2.87 m/uL (3.80-5.40); RDW 14.5 % (11.5-15.5); WBC 9.9 k/uL (3.8-10.6)
[2023-09-28 07:29] LABS: ALT 11 U/L (4-34); AST 15 U/L (14-36); African American GFR (CKD) 44 (>60 ml/min/1.73 sqM); Albumin 1.8 g/dL (3.5-5.0); Alkaline Phosphatase 43 U/L (38-126); Anion Gap 3 mmol/L; Blood Urea Nitrogen 38 mg/dL (7-17); Calcium 7.9 mg/dL (8.4-10.2); Carbon Dioxide 29 mmol/L (22-30); Chloride 106 mmol/L (98-107); Glucose 242 mg/dL (74-99); Non-African American GFR(CKD) 38 (>60 ml/min/1.73 sqM); Potassium 4.2 mmol/L (3.5-5.1); Sodium 138 mmol/L (137-145); Total Bilirubin 0.7 mg/dL (0.2-1.3); Total Protein 3.9 g/dL (6.3-8.2)
--- NOTE | 2023-09-28 07:30 | P.PN ---
Subjective Progress Note Date: 09/28/23 Principal diagnosis: Permanent atrial fibrillation The patient is a pleasant 78-year-old female patient with a past medical history significant for permanent atrial fibrillation not on anticoagulation because of history of vagina bleeding as well as multiple comorbid conditions including valvular heart disease and mild cardiomyopathy who was admitted to the hospital with abdominal discomfort and she was diagnosed with bowel obstruction and she underwent laparoscopic decompression. Currently the patient is intubated she is on mechanical ventilation. September 27, 2023 The patient was seen and evaluated this morning. She continues to be intubated on mechanical ventilation. She continues to be in atrial fibrillation which is permanent with overall controlled heart rate on the current dose of Cardizem. She is not on anticoagulation because of history of vaginal bleeding. The examination reveals irregular rhythm with a soft systolic murmur and diminished breathing sounds bilaterally and mild bilateral lower extremities edema September 28, 2023 The patient was seen and evaluated this morning. She continues to be in atrial fibrillation with overall controlled heart rate on the current dose of Cardizem IV which I am going to wean and start her on metoprolol to tartrate if she is able to swallow otherwise we have to keep her on Cardizem IV. Beside that she is not a candidate for anticoagulation because of history of bleeding. She was extubated yesterday. Hemodynamically she is stable and she is not on any vasopressors at this point. Examination revealed irregular rhythm with a systolic murmur and diminished breathing sounds bilaterally and no edema was not ed Assessment Acute hypoxic respiratory failure. The patient was extubated yesterday Status post bowel obstruction Atrial fibrillation with controlled heart rate Valvular heart disease Multiple comorbid conditions Plan Try to wean the patient from Cardizem IV Start the patient on metoprolol to tartrate Follow-up with the patient Objective - Vital Signs Vital signs: Vital Signs Temp 98 F 09/28/23 04:00 Pulse 84 09/28/23 07:00 Resp 16 09/28/23 07:00 BP 116/66 09/28/23 07:00 Pulse Ox 92 L 09/28/23 07:00 FiO2 35 09/27/23 15:08 Intake & Output 09/27/23 09/28/23 09/28/23 18:59 06:59 18:59 Intake Total 7155.482 3348 75 Output Total 760 510 30 Balance 535.906 615 45 Weight 88.5 kg 91.3 kg Intake: IV 770 100 Lactated Ringers 1,000 ml 200 @ 50 mls/hr IV .Q20H [facility] Rx#:[id number] Mvi, Adult No.4 with Vit 270 K 10 ml Trace (Conc-1Ml/ Dose) 1 ml Sodium Acetate 20 meq In Amino Acid 5%- D20w+Lytes*E* 1,000 ml @ 55 mls/hr IV .[id number] [facility] Rx#:[id number] Piperacillin-Tazobactam 3 100 100 .375 gm In Sodium Chloride 0.9% 100 ml @ 25 mls/hr IVPB Q8H [facility] Rx#: [id number] Potassium Chloride 20 meq 200 In Water For Injection 1 100ml.bag @ 50 mls/hr IVPB Q2H [facility] Rx#: [id number] Intake, IV Titration 194.337 3303 75 Amount Diltiazem 125 mg In 125 Sodium Chloride 0.9% 100 ml @ Per Protocol IV .Q0M [facility] Rx#:[id number] Magnesium Sulfate-D5w Pmx 100 1 gm In Dextrose/Water 1 100ml.bag @ 100 mls/hr IVPB ONCE ONE Rx#: [id number] Mvi, Adult No.4 with Vit 110 660 55 K 10 ml Trace (Conc-1Ml/ Dose) 1 ml Potassium Chloride 40 meq In Amino Acid 5%-D20w+Lytes*E* 1, 000 ml @ 55 mls/hr IV . [id number] [facility] Rx#:[id number] Norepinephrine 4 mg In 18.757 Sodium Chloride 0.9% 250 ml @ 0.03 MCG/KG/MIN 7. 834 mls/hr IV .Q24H [facility] Rx#:[id number] Sodium Chloride 0.9% 500 160 240 20 ml 500 ml @ 20 mls/hr IV .Q24H [facility] Rx#:[id number] propofoL 1,000 mg In 137.149 Empty Bag 1 bag @ 15 MCG/ KG/MIN 6.168 mls/hr IV . [id number] [facility] Rx#:[id number] Output: Gastric Drainage 100 Urine 660 510 30 Other: Voiding Method Indwelling Catheter Indwelling Catheter - Labs CBC & Chem 7: 09/28/23 06:41 09/28/23 06:41 Labs: Abnormal Lab Results - Last 24 Hours (Table) 04/09/27/23 09/27/23 Range/Units 05:20 08:56 11:55 RBC (3.80-5.40) m/uL Hgb (11.4-16.0) gm/dL Hct (34.0-46.0) % MCV (80.0-100.0) fL MCHC (31.0-37.0) g/dL Plt Count (150-450) k/uL Neutrophils # (1.3-7.7) k/uL Lymphocytes # (1.0-4.8) k/uL ABG pH (7.35-7.45) ABG pCO2 (35-45) mmHg ABG HCO3 (21-25) mmol/L ABG Total CO2 (19-24) mmol/L ABG O2 Saturation (94-97) % Sodium 136 L (137-145) mmol/L BUN 41 H (7-17) mg/dL Creatinine 1.36 H (0.52-1.04) mg/dL Glucose 163 H (74-99) mg/dL POC Glucose (mg/dL) 174 H 216 H (70-110) mg/dL Calcium 7.5 L (8.4-10.2) mg/dL Total Protein (6.3-8.2) g/dL Albumin (3.5-5.0) g/dL 09/27/23 09/27/23 09/27/23 Range/Units 16:10 16:16 19:48 RBC (3.80-5.40) m/uL Hgb (11.4-16.0) gm/dL Hct (34.0-46.0) % MCV (80.0-100.0) fL MCHC (31.0-37.0) g/dL Plt Count (150-450) k/uL Neutrophils # (1.3-7.7) k/uL Lymphocytes # (1.0-4.8) k/uL ABG pH 7.54 H (7.35-7.45) ABG pCO2 34 L (35-45) mmHg ABG HCO3 29 H (21-25) mmol/L ABG Total CO2 30 H (19-24) mmol/L ABG O2 Saturation 98.5 H (94-97) % Sodium (137-145) mmol/L BUN (7-17) mg/dL Creatinine (0.52-1.04) mg/dL Glucose (74-99) mg/dL POC Glucose (mg/dL) 177 H 209 H (70-110) mg/dL Calcium (8.4-10.2) mg/dL Total Protein (6.3-8.2) g/dL Albumin (3.5-5.0) g/dL 09/28/23 09/28/23 09/28/23 Range/Units 00:23 05:00 06:41 RBC (3.80-5.40) m/uL Hgb (11.4-16.0) gm/dL Hct (34.0-46.0) % MCV (80.0-100.0) fL MCHC (31.0-37.0) g/dL Plt Count (150-450) k/uL Neutrophils # (1.3-7.7) k/uL Lymphocytes # (1.0-4.8) k/uL ABG pH (7.35-7.45) ABG pCO2 (35-45) mmHg ABG HCO3 (21-25) mmol/L ABG Total CO2 (19-24) mmol/L ABG O2 Saturation (94-97) % Sodium (137-145) mmol/L BUN 38 H (7-17) mg/dL Creatinine 1.33 H (0.52-1.04) mg/dL Glucose 242 H (74-99) mg/dL POC Glucose (mg/dL) 246 H 285 H (70-110) mg/dL Calcium 7.9 L (8.4-10.2) mg/dL Total Protein 3.9 L (6.3-8.2) g/dL Albumin 1.8 L (3.5-5.0) g/dL 09/28/23 Range/Units 06:41 RBC 2.87 L (3.80-5.40) m/uL Hgb 9.0 L (11.4-16.0) gm/dL Hct 29.2 L (34.0-46.0) % MCV 101.7 H (80.0-100.0) fL MCHC 30.7 L (31.0-37.0) g/dL Plt Count 148 L (150-450) k/uL Neutrophils # 8.5 H (1.3-7.7) k/uL Lymphocytes # 0.7 L (1.0-4.8) k/uL ABG pH (7.35-7.45) ABG pCO2 (35-45) mmHg ABG HCO3 (21-25) mmol/L ABG Total CO2 (19-24) mmol/L ABG O2 Saturation (94-97) % Sodium (137-145) mmol/L BUN (7-17) mg/dL Creatinine (0.52-1.04) mg/dL Glucose (74-99) mg/dL POC Glucose (mg/dL) (70-110) mg/dL Calcium (8.4-10.2) mg/dL Total Protein (6.3-8.2) g/dL Albumin (3.5-5.0) g/dL Microbiology - Last 24 Hours (Table) 09/24/23 16:11 Gram Stain - Final Other - Other Wound Culture - Final Klebsiella pneumoniae Escherichia coli Enterococcus faecalis 09/25/23 00:15 Gram Stain - Final Sputum Sputum Culture - Final
[2023-09-28 07:31] LABS: Magnesium 2.1 mg/dL (1.6-2.3); Phosphorus 2.9 mg/dL (2.5-4.5)
[2023-09-28 08:15] LABS: Glucose,Whole Blood 262 mg/dL (70-110)
--- NOTE | 2023-09-28 08:25 | XR ---
EXAMINATION TYPE: XR chest 1V portable DATE OF EXAM: 09/28/2023 5:33 AM CLINICAL INDICATION:Female, 78 years old with history of basilar opacities; H COMPARISON: Chest radiograph from one day prior. TECHNIQUE: XR chest 1V portable Frontal view of the chest. FINDINGS: Lungs/Pleura: Similar basilar airspace opacities. There is no evidence of pleural effusion, focal con solidation, or pneumothorax. Pulmonary vascularity: Unremarkable. Heart/mediastinum: Cardiomediastinal silhouette is unremarkable. Musculoskeletal: Degenerative changes of the shoulder joints. Other findings: None Lines/Tubes: Left central venous catheter with distal tip at the cavoatrial junction. IMPRESSION: Similar bibasilar airspace opacities possibly due to patient positioning. Correlate for pneumonia.
[2023-09-28] MEDS: METOPROLOL TARTRATE 12.5 MG TAB PO SCH (10:51)
--- NOTE | 2023-09-28 11:18 | P.PN ---
Subjective patient is seen for follow-up for acute kidney injury. Good urine output. serum creatinine decreased to 1.3. patient was extubated yesterday. She is currently comfortable and maintained on nasal cannula. Urine output at about 30-40 mL per hour. off of IV fluids. Patient remains on Cardizem drip. Objective - Vital Signs Vital signs: Vital Signs Temp 97.9 F 09/28/23 08:00 Pulse 84 09/28/23 11:00 Resp 19 09/28/23 11:00 BP 115/68 09/28/23 11:00 Pulse Ox 98 09/28/23 11:00 FiO2 35 09/27/23 15:08 Intake & Output 09/27/23 09/28/23 09/28/23 18:59 06:59 18:59 Intake Total 8833.318 7350 475 Output Total 760 510 180 Balance 535.906 615 295 Weight 88.5 kg 91.3 kg Intake: IV 770 100 100 Lactated Ringers 1,000 ml 200 @ 50 mls/hr IV .Q20H [facility] Rx#:[id number] Mvi, Adult No.4 with Vit 270 K 10 ml Trace (Conc-1Ml/ Dose) 1 ml Sodium Acetate 20 meq In Amino Acid 5%- D20w+Lytes*E* 1,000 ml @ 55 mls/hr IV .[id number] [facility] Rx#:[id number] Piperacillin-Tazobactam 3 100 100 100 .375 gm In Sodium Chloride 0.9% 100 ml @ 25 mls/hr IVPB Q8H [facility] Rx#: [id number] Potassium Chloride 20 meq 200 In Water For Injection 1 100ml.bag @ 50 mls/hr IVPB Q2H [facility] Rx#: [id number] Intake, IV Titration 506.869 1267 375 Amount Diltiazem 125 mg In 125 Sodium Chloride 0.9% 100 ml @ Per Protocol IV .Q0M [facility] Rx#:[id number] Magnesium Sulfate-D5w Pmx 100 1 gm In Dextrose/Water 1 100ml.bag @ 100 mls/hr IVPB ONCE ONE Rx#: [id number] Mvi, Adult No.4 with Vit 110 660 275 K 10 ml Trace (Conc-1Ml/ Dose) 1 ml Potassium Chloride 40 meq In Amino Acid 5%-D20w+Lytes*E* 1, 000 ml @ 55 mls/hr IV . [id number] [facility] Rx#:[id number] Norepinephrine 4 mg In 18.757 Sodium Chloride 0.9% 250 ml @ 0.03 MCG/KG/MIN 7. 834 mls/hr IV .Q24H [facility] Rx#:[id number] Sodium Chloride 0.9% 500 160 240 100 ml 500 ml @ 20 mls/hr IV .Q24H [facility] Rx#:[id number] propofoL 1,000 mg In 137.149 Empty Bag 1 bag @ 15 MCG/ KG/MIN 6.168 mls/hr IV . [id number] [facility] Rx#:[id number] Output: Gastric Drainage 100 Urine 660 510 180 Other: Voiding Method Indwelling Catheter Indwelling Catheter Indwelling Catheter - Exam patient is awake and comfortable Examination of the heart S1 and S2 Examination of the lungs bilateral breath sounds are heard Abdomen is soft examination of lower extremities shows edema 1+ bilaterally NURSE INSTRUCTOR exam is grossly intact - Labs CBC & Chem 7: 09/28/23 06:41 09/28/23 06:41 Labs: Abnormal Lab Results - Last 24 Hours (Table) 09/27/23 09/27/23 09/27/23 Range/Units 11:55 16:10 16:16 RBC (3.80-5.40) m/uL Hgb (11.4-16.0) gm/dL Hct (34.0-46.0) % MCV (80.0-100.0) fL MCHC (31.0-37.0) g/dL Plt Count (150-450) k/uL Neutrophils # (1.3-7.7) k/uL Lymphocytes # (1.0-4.8) k/uL ABG pH 7.54 H (7.35-7.45) ABG pCO2 34 L (35-45) mmHg ABG HCO3 29 H (21-25) mmol/L ABG Total CO2 30 H (19-24) mmol/L ABG O2 Saturation 98.5 H (94-97) % BUN (7-17) mg/dL Creatinine (0.52-1.04) mg/dL Glucose (74-99) mg/dL POC Glucose (mg/dL) 216 H 177 H (70-110) mg/dL Calcium (8.4-10.2) mg/dL Total Protein (6.3-8.2) g/dL Albumin (3.5-5.0) g/dL 09/27/23 09/28/23 09/28/23 Range/Units 19:48 00:23 05:00 RBC (3.80-5.40) m/uL Hgb (11.4-16.0) gm/dL Hct (34.0-46.0) % MCV (80.0-100.0) fL MCHC (31.0-37.0) g/dL Plt Count (150-450) k/uL Neutrophils # (1.3-7.7) k/uL Lymphocytes # (1.0-4.8) k/uL ABG pH (7.35-7.45) ABG pCO2 (35-45) mmHg ABG HCO3 (21-25) mmol/L ABG Total CO2 (19-24) mmol/L ABG O2 Saturation (94-97) % BUN (7-17) mg/dL Creatinine (0.52-1.04) mg/dL Glucose (74-99) mg/dL POC Glucose (mg/dL) 209 H 246 H 285 H (70-110) mg/dL Calcium (8.4-10.2) mg/dL Total Protein (6.3-8.2) g/dL Albumin (3.5-5.0) g/dL 09/28/23 09/28/23 09/28/23 Range/Units 06:41 06:41 08:13 RBC 2.87 L (3.80-5.40) m/uL Hgb 9.0 L (11.4-16.0) gm/dL Hct 29.2 L (34.0-46.0) % MCV 101.7 H (80.0-100.0) fL MCHC 30.7 L (31.0-37.0) g/dL Plt Count 148 L (150-450) k/uL Neutrophils # 8.5 H (1.3-7.7) k/uL Lymphocytes # 0.7 L (1.0-4.8) k/uL ABG pH (7.35-7.45) ABG pCO2 (35-45) mmHg ABG HCO3 (21-25) mmol/L ABG Total CO2 (19-24) mmol/L ABG O2 Saturation (94-97) % BUN 38 H (7-17) mg/dL Creatinine 1.33 H (0.52-1.04) mg/dL Glucose 242 H (74-99) mg/dL POC Glucose (mg/dL) 262 H (70-110) mg/dL Calcium 7.9 L (8.4-10.2) mg/dL Total Protein 3.9 L (6.3-8.2) g/dL Albumin 1.8 L (3.5-5.0) g/dL Microbiology - Last 24 Hours (Table) 09/24/23 16:11 Gram Stain - Final Other - Other Wound Culture - Final Klebsiella pneumoniae Escherichia coli Enterococcus faecalis 09/25/23 00:15 Gram Stain - Final Sputum Sputum Culture - Final Assessment and Plan Assessment: 1. Acute kidney injury secondary to vasomotor nephropathy from poor intake. Creatinine peaked at 1.76 this admission and is improved to 1.[address] scan showed right-sided hydronephrosis. Patient has a right ureteral stent. Urology following. 2. Chronic kidney disease stage IIIb with baseline creatinine 1.5 secondary to nephrosclerosis. 3. Small bowel obstruction being followed by surgery. Status post laparoscopic decompressive enterostomy with closure of small bowel and proximal ileum September 24, 2023. 4. Hypernatremia from lack of oral water intake. Improved. 5. Hypokalemia from poor intake and intracellular shifting from IV bicarb. 6. A-fib with RVR maintained on Cardizem drip. Cardiology following. 7. Metabolic acidosis secondary to acute kidney injury and IV fluids. Status post bicarb drip. Improved. 8. Hypophosphatemia from poor intake. Plan: continue off of IV fluids maintained on TPN.
[2023-09-28 11:27] LABS: Glucose,Whole Blood 255 mg/dL (70-110)
--- NOTE | 2023-09-28 12:06 | P.PN ---
Subjective Progress Note Date: 09/28/23 CHIEF COMPLAINT: Abdominal pain HISTORY OF PRESENT ILLNESS: Patient is postop day #4 status post Robotic- assisted da Radha Xi laparoscopic decompressive enterostomy with closure small bowel, proximal ileum andRobotic-assisted da Radha Xi laparoscopic small bowel external bypass proximal ileum to mid ileum. Patient was extubated yesterday. She is to be evaluated by speech therapy today regarding advancement of diet. She has to work hard to clear ice chips. Tumor markers CA-125 75.5 and CA 15-3 63.4 are elevated. Pathology results from surgery are pending. Afebrile on 2 L satting at 98%. WBC 15 down to 9.9 Hgb 9.0 PHYSICAL EXAM: VITAL SIGNS: Reviewed GENERAL: Well-developed in no acute distress. HEENT: No sclera icterus. Extraocular movements grossly intact. Moist buccal mucosa. Head is atraumatic, normocephalic. Hears conversational speech. No nasal drainage. NECK: Supple without lymphadenopathy. CHEST: Non-labored respirations and equal bilateral excursions. CARDIOVASCULAR: Palpable 2+ radial pulses. ABDOMEN: Soft. Nondistended. MUSCULOSKELETAL: No clubbing or cyanosis. NEUROLOGIC: No focal or lateralizing signs. Cranial nerves II through XII grossly intact. PSYCH: awake SKIN: Well perfused. Good skin turgor. ASSESSMENT: 1. 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 2. Dementia 3. Acute hypoxic respiratory failure 4. Chronic atrial fibrillation 5. History of endometrial cancer PLAN: -Consult speech therapy for swallow eval -Advance diet once cleared by speech therapy -Awaiting pathology report. Oncology following. -Continue supportive care Physician Tool Clerk note has been reviewed by physician. Signing provider agrees with the documented findings, assessment, and plan of care. Objective - Vital Signs Vital signs: Vital Signs Temp 97.9 F 09/28/23 08:00 Pulse 77 09/28/23 09:00 Resp 22 09/28/23 09:00 BP 116/81 09/28/23 09:00 Pulse Ox 91 L 09/28/23 09:00 FiO2 35 09/27/23 15:08 Intake & Output 09/27/23 09/28/23 09/28/23 18:59 06:59 18:59 Intake Total 9862.722 2553 225 Output Total 760 510 100 Balance 535.906 615 125 Weight 88.5 kg 91.3 kg Intake: IV 770 100 Lactated Ringers 1,000 ml 200 @ 50 mls/hr IV .Q20H [facility] Rx#:[id number] Mvi, Adult No.4 with Vit 270 K 10 ml Trace (Conc-1Ml/ Dose) 1 ml Sodium Acetate 20 meq In Amino Acid 5%- D20w+Lytes*E* 1,000 ml @ 55 mls/hr IV .[id number] [facility] Rx#:[id number] Piperacillin-Tazobactam 3 100 100 .375 gm In Sodium Chloride 0.9% 100 ml @ 25 mls/hr IVPB Q8H [facility] Rx#: [id number] Potassium Chloride 20 meq 200 In Water For Injection 1 100ml.bag @ 50 mls/hr IVPB Q2H [facility] Rx#: [id number] Intake, IV Titration 497.463 5947 225 Amount Diltiazem 125 mg In 125 Sodium Chloride 0.9% 100 ml @ Per Protocol IV .Q0M [facility] Rx#:[id number] Magnesium Sulfate-D5w Pmx 100 1 gm In Dextrose/Water 1 100ml.bag @ 100 mls/hr IVPB ONCE ONE Rx#: [id number] Mvi, Adult No.4 with Vit 110 660 165 K 10 ml Trace (Conc-1Ml/ Dose) 1 ml Potassium Chloride 40 meq In Amino Acid 5%-D20w+Lytes*E* 1, 000 ml @ 55 mls/hr IV . [id number] [facility] Rx#:[id number] Norepinephrine 4 mg In 18.757 Sodium Chloride 0.9% 250 ml @ 0.03 MCG/KG/MIN 7. 834 mls/hr IV .Q24H [facility] Rx#:[id number] Sodium Chloride 0.9% 500 160 240 60 ml 500 ml @ 20 mls/hr IV .Q24H [facility] Rx#:[id number] propofoL 1,000 mg In 137.149 Empty Bag 1 bag @ 15 MCG/ KG/MIN 6.168 mls/hr IV . [id number] [facility] Rx#:[id number] Output: Gastric Drainage 100 Urine 660 510 100 Other: Voiding Method Indwelling Catheter Indwelling Catheter Indwelling Catheter - Labs CBC & Chem 7: 09/28/23 06:41 09/28/23 06:41 Labs: Abnormal Lab Results - Last 24 Hours (Table) 09/27/23 09/27/23 09/27/23 Range/Units 11:55 16:10 16:16 RBC (3.80-5.40) m/uL Hgb (11.4-16.0) gm/dL Hct (34.0-46.0) % MCV (80.0-100.0) fL MCHC (31.0-37.0) g/dL Plt Count (150-450) k/uL Neutrophils # (1.3-7.7) k/uL Lymphocytes # (1.0-4.8) k/uL ABG pH 7.54 H (7.35-7.45) ABG pCO2 34 L (35-45) mmHg ABG HCO3 29 H (21-25) mmol/L ABG Total CO2 30 H (19-24) mmol/L ABG O2 Saturation 98.5 H (94-97) % BUN (7-17) mg/dL Creatinine (0.52-1.04) mg/dL Glucose (74-99) mg/dL POC Glucose (mg/dL) 216 H 177 H (70-110) mg/dL Calcium (8.4-10.2) mg/dL Total Protein (6.3-8.2) g/dL Albumin (3.5-5.0) g/dL 09/27/23 09/28/23 09/28/23 Range/Units 19:48 00:23 05:00 RBC (3.80-5.40) m/uL Hgb (11.4-16.0) gm/dL Hct (34.0-46.0) % MCV (80.0-100.0) fL MCHC (31.0-37.0) g/dL Plt Count (150-450) k/uL Neutrophils # (1.3-7.7) k/uL Lymphocytes # (1.0-4.8) k/uL ABG pH (7.35-7.45) ABG pCO2 (35-45) mmHg ABG HCO3 (21-25) mmol/L ABG Total CO2 (19-24) mmol/L ABG O2 Saturation (94-97) % BUN (7-17) mg/dL Creatinine (0.52-1.04) mg/dL Glucose (74-99) mg/dL POC Glucose (mg/dL) 209 H 246 H 285 H (70-110) mg/dL Calcium (8.4-10.2) mg/dL Total Protein (6.3-8.2) g/dL Albumin (3.5-5.0) g/dL 09/28/23 09/28/23 09/28/23 Range/Units 06:41 06:41 08:13 RBC 2.87 L (3.80-5.40) m/uL Hgb 9.0 L (11.4-16.0) gm/dL Hct 29.2 L (34.0-46.0) % MCV 101.7 H (80.0-100.0) fL MCHC 30.7 L (31.0-37.0) g/dL Plt Count 148 L (150-450) k/uL Neutrophils # 8.5 H (1.3-7.7) k/uL Lymphocytes # 0.7 L (1.0-4.8) k/uL ABG pH (7.35-7.45) ABG pCO2 (35-45) mmHg ABG HCO3 (21-25) mmol/L ABG Total CO2 (19-24) mmol/L ABG O2 Saturation (94-97) % BUN 38 H (7-17) mg/dL Creatinine 1.33 H (0.52-1.04) mg/dL Glucose 242 H (74-99) mg/dL POC Glucose (mg/dL) 262 H (70-110) mg/dL Calcium 7.9 L (8.4-10.2) mg/dL Total Protein 3.9 L (6.3-8.2) g/dL Albumin 1.8 L (3.5-5.0) g/dL Microbiology - Last 24 Hours (Table) 09/24/23 16:11 Gram Stain - Final Other - Other Wound Culture - Final Klebsiella pneumoniae Escherichia coli Enterococcus faecalis 09/25/23 00:15 Gram Stain - Final Sputum Sputum Culture - Final
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
[2023-09-28 16:30] LABS: Glucose,Whole Blood 190 mg/dL (70-110)
[2023-09-28 20:17] LABS: Glucose,Whole Blood 186 mg/dL (70-110)
[2023-09-28 23:46] LABS: Glucose,Whole Blood 226 mg/dL (70-110)
[2023-09-29 03:23] LABS: Glucose,Whole Blood 257 mg/dL (70-110)
[2023-09-29 07:17] LABS: ALT 10 U/L (4-34); AST 17 U/L (14-36); African American GFR (CKD) 47 (>60 ml/min/1.73 sqM); Albumin 1.9 g/dL (3.5-5.0); Alkaline Phosphatase 37 U/L (38-126); Anion Gap 3 mmol/L; Blood Urea Nitrogen 41 mg/dL (7-17); Calcium 7.9 mg/dL (8.4-10.2); Carbon Dioxide 26 mmol/L (22-30); Chloride 108 mmol/L (98-107); Glucose 211 mg/dL (74-99); Non-African American GFR(CKD) 41 (>60 ml/min/1.73 sqM); Potassium 4.9 mmol/L (3.5-5.1); Sodium 137 mmol/L (137-145); Total Bilirubin 0.7 mg/dL (0.2-1.3); Total Protein 4.1 g/dL (6.3-8.2)
--- NOTE | 2023-09-29 07:18 | P.PN ---
Subjective Progress Note Date: 09/29/23 Principal diagnosis: Permanent atrial fibrillation The patient is a pleasant 78-year-old female patient with a past medical history significant for permanent atrial fibrillation not on anticoagulation because of history of vagina bleeding as well as multiple comorbid conditions including valvular heart disease and mild cardiomyopathy who was admitted to the hospital with abdominal discomfort and she was diagnosed with bowel obstruction and she underwent laparoscopic decompression. Currently the patient is intubated she is on mechanical ventilation. September 27, 2023 The patient was seen and evaluated this morning. She continues to be intubated on mechanical ventilation. She continues to be in atrial fibrillation which is permanent with overall controlled heart rate on the current dose of Cardizem. She is not on anticoagulation because of history of vaginal bleeding. The examination reveals irregular rhythm with a soft systolic murmur and diminished breathing sounds bilaterally and mild bilateral lower extremities edema September 28, 2023 The patient was seen and evaluated this morning. She continues to be in atrial fibrillation with overall controlled heart rate on the current dose of Cardizem IV which I am going to wean and start her on metoprolol to tartrate if she is able to swallow otherwise we have to keep her on Cardizem IV. Beside that she is not a candidate for anticoagulation because of history of bleeding. She was extubated yesterday. Hemodynamically she is stable and she is not on any vasopressors at this point. Examination revealed irregular rhythm with a systolic murmur and diminished breathing sounds bilaterally and no edema was not ed September 29, 2023 The patient was seen and evaluated this morning. She remains stable with atrial fibrillation with overall controlled heart rate on the current dose of Cardizem IV. Metoprolol orally is and but she cannot take any oral medication at this point. She cannot be on any oral anticoagulation because of history of vaginal bleeding. The chest x-ray was reviewed and remained stable. The physical examination reveals irregular rhythm with clear breathing sounds bilaterally and no edema was noted. Assessment Acute hypoxic respiratory failure. The patient was extubated yesterday Status post bowel obstruction Atrial fibrillation with controlled heart rate Valvular heart disease Multiple comorbid conditions Plan Try to wean the patient from Cardizem IV Follow-up with the patient Objective - Vital Signs Vital signs: Vital Signs Temp 97.9 F 09/29/23 04:00 Pulse 71 09/29/23 07:00 Resp 19 09/29/23 07:00 BP 134/79 09/29/23 07:00 Pulse Ox 96 09/29/23 07:00 FiO2 35 09/27/23 15:08 Intake & Output 09/28/23 09/29/23 09/29/23 18:59 06:59 18:59 Intake Total 1632.5 320 20 Output Total 495 560 40 Balance 1137.5 -240 -20 Weight 92.4 kg Intake: IV 100 100 Piperacillin-Tazobactam 3 100 100 .375 gm In Sodium Chloride 0.9% 100 ml @ 25 mls/hr IVPB Q8H [facility] Rx#: [id number] Intake, IV Titration 1532.5 220 20 Amount Mvi, Adult No.4 with Vit 1292.5 K 10 ml Trace (Conc-1Ml/ Dose) 1 ml Potassium Chloride 40 meq In Amino Acid 5%-D20w+Lytes*E* 1, 000 ml @ 55 mls/hr IV . [id number] [facility] Rx#:[id number] Sodium Chloride 0.9% 500 240 220 20 ml 500 ml @ 20 mls/hr IV .Q24H [facility] Rx#:[id number] Output: Urine 495 560 40 Other: Voiding Method Indwelling Catheter Indwelling Catheter - Labs CBC & Chem 7: 09/28/23 06:41 09/28/23 06:41 Labs: Abnormal Lab Results - Last 24 Hours (Table) 09/28/23 09/28/23 09/28/23 Range/Units 06:41 08:13 11:26 BUN 38 H (7-17) mg/dL Creatinine 1.33 H (0.52-1.04) mg/dL Glucose 242 H (74-99) mg/dL POC Glucose (mg/dL) 262 H 255 H (70-110) mg/dL Calcium 7.9 L (8.4-10.2) mg/dL Total Protein 3.9 L (6.3-8.2) g/dL Albumin 1.8 L (3.5-5.0) g/dL 09/28/23 09/28/23 09/28/23 Range/Units 16:28 20:16 23:45 BUN (7-17) mg/dL Creatinine (0.52-1.04) mg/dL Glucose (74-99) mg/dL POC Glucose (mg/dL) 190 H 186 H 226 H (70-110) mg/dL Calcium (8.4-10.2) mg/dL Total Protein (6.3-8.2) g/dL Albumin (3.5-5.0) g/dL 09/29/23 Range/Units 03:21 BUN (7-17) mg/dL Creatinine (0.52-1.04) mg/dL Glucose (74-99) mg/dL POC Glucose (mg/dL) 257 H (70-110) mg/dL Calcium (8.4-10.2) mg/dL Total Protein (6.3-8.2) g/dL Albumin (3.5-5.0) g/dL Microbiology - Last 24 Hours (Table) 09/24/23 16:11 Anaerobic Culture - Preliminary Other - Other Anaerobic Gm Negative Bacilli
[2023-09-29 07:32] LABS: Basophils % (A) 0 %; Eosinophils # (A) 0.1 k/uL (0-0.7); Eosinophils % (A) 2 %; HCT 30.5 % (34.0-46.0); HGB 9.1 gm/dL (11.4-16.0); Hypochromasia Marked; Lymphocytes # (A) 0.4 k/uL (1.0-4.8); Lymphocytes % (A) 5 %; MCH 31.2 pg (25.0-35.0); Macrocytosis Moderate; Mean Platelet Volume 9.3; Monocytes # (A) 0.5 k/uL (0-1.0); Monocytes % (A) 6 %; Neutrophils # (A) 7.2 k/uL (1.3-7.7); Neutrophils % (A) 86 %; Platelet Count 170 k/uL (150-450); RBC 2.93 m/uL (3.80-5.40); RDW 14.7 % (11.5-15.5); WBC 8.4 k/uL (3.8-10.6)
[2023-09-29 08:01] LABS: Magnesium 2.1 mg/dL (1.6-2.3); Phosphorus 2.9 mg/dL (2.5-4.5)
[2023-09-29 08:25] LABS: Glucose,Whole Blood 172 mg/dL (70-110)
--- NOTE | 2023-09-29 08:28 | XR ---
EXAMINATION TYPE: XR chest 1V portable DATE OF EXAM: 09/29/2023 4:53 AM CLINICAL INDICATION:Female, 78 years old with history of bibasilar opacities; [facility] COMPARISON: Chest radiograph from one day prior. TECHNIQUE: XR chest 1V portable Frontal view of the chest. FINDINGS: Lungs/Pleura: Similar basilar airspace opacities. There is no evidence of pleural effusion, focal con solidation, or pneumothorax. Pulmonary vascularity: Unremarkable. Heart/mediastinum: Cardiomediastinal silhouette is unremarkable. Musculoskeletal: Degenerative changes of the shoulder joints. Other findings: None Lines/Tubes: Left central venous catheter with distal tip at the cavoatrial junction. IMPRESSION: Similar bibasilar airspace opacities possibly due to patient positioning. Correlate for pneumonia.
--- NOTE | 2023-09-29 11:07 | P.PN ---
Subjective patient is seen for follow-up for acute kidney injury. Good urine output. serum creatinine decreased to 1.26. patient remains comfortable and maintained on 2 L nasal cannula. Urine output at about 30-40 mL per hour. off of IV fluids. Cardizem drip discontinued this morning. Objective - Vital Signs Vital signs: Vital Signs Temp 97.7 F 09/29/23 08:00 Pulse 73 09/29/23 10:00 Resp 20 09/29/23 10:00 BP 134/90 09/29/23 10:00 Pulse Ox 96 09/29/23 10:00 FiO2 35 09/27/23 15:08 Intake & Output 09/28/23 09/29/23 09/29/23 18:59 06:59 18:59 Intake Total 1632.5 1476 136.75 Output Total 495 560 165 Balance 1137.5 916 -28.25 Weight 92.4 kg Intake: IV 100 100 110 Mvi, Adult No.4 with Vit 110 K 10 ml Trace (Conc-1Ml/ Dose) 1 ml Sodium Acetate 20 meq In Amino Acid 5%- D20w+Lytes*E* 1,000 ml @ 55 mls/hr IV .[id number] [facility] Rx#:[id number] Piperacillin-Tazobactam 3 100 100 .375 gm In Sodium Chloride 0.9% 100 ml @ 25 mls/hr IVPB Q8H [facility] Rx#: [id number] Intake, IV Titration 1532.5 1376 26.75 Amount Diltiazem 125 mg In 125 6.75 Sodium Chloride 0.9% 100 ml @ Per Protocol IV .Q0M [facility] Rx#:[id number] Mvi, Adult No.4 with Vit 1292.5 1031 K 10 ml Trace (Conc-1Ml/ Dose) 1 ml Potassium Chloride 40 meq In Amino Acid 5%-D20w+Lytes*E* 1, 000 ml @ 55 mls/hr IV . 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 exam is grossly intact - Labs CBC & Chem 7: 09/29/23 06:17 09/29/23 06:17 Labs: Abnormal Lab Results - Last 24 Hours (Table) 09/28/23 09/28/23 09/28/23 Range/Units 11:26 16:28 20:16 RBC (3.80-5.40) m/uL Hgb (11.4-16.0) gm/dL Hct (34.0-46.0) % MCV (80.0-100.0) fL MCHC (31.0-37.0) g/dL Lymphocytes # (1.0-4.8) k/uL Chloride (98-107) mmol/L BUN (7-17) mg/dL Creatinine (0.52-1.04) mg/dL Glucose (74-99) mg/dL POC Glucose (mg/dL) 255 H 190 H 186 H (70-110) mg/dL Calcium (8.4-10.2) mg/dL Alkaline Phosphatase (38-126) U/L Total Protein (6.3-8.2) g/dL Albumin (3.5-5.0) g/dL 09/28/23 09/29/23 09/29/23 Range/Units 23:45 03:21 06:17 RBC (3.80-5.40) m/uL Hgb (11.4-16.0) gm/dL Hct (34.0-46.0) % MCV (80.0-100.0) fL MCHC (31.0-37.0) g/dL Lymphocytes # (1.0-4.8) k/uL Chloride 108 H (98-107) mmol/L BUN 41 H (7-17) mg/dL Creatinine 1.26 H (0.52-1.04) mg/dL Glucose 211 H (74-99) mg/dL POC Glucose (mg/dL) 226 H 257 H (70-110) mg/dL Calcium 7.9 L (8.4-10.2) mg/dL Alkaline Phosphatase 37 L (38-126) U/L Total Protein 4.1 L (6.3-8.2) g/dL Albumin 1.9 L (3.5-5.0) g/dL 09/29/23 09/29/23 Range/Units 06:17 08:23 RBC 2.93 L (3.80-5.40) m/uL Hgb 9.1 L (11.4-16.0) gm/dL Hct 30.5 L (34.0-46.0) % MCV 104.0 H (80.0-100.0) fL MCHC 30.0 L (31.0-37.0) g/dL Lymphocytes # 0.4 L (1.0-4.8) k/uL Chloride (98-107) mmol/L BUN (7-17) mg/dL Creatinine (0.52-1.04) mg/dL Glucose (74-99) mg/dL POC Glucose (mg/dL) 172 H (70-110) mg/dL Calcium (8.4-10.2) mg/dL Alkaline Phosphatase (38-126) U/L Total Protein (6.3-8.2) g/dL Albumin (3.5-5.0) g/dL Microbiology - Last 24 Hours (Table) 09/24/23 16:11 Anaerobic Culture - Preliminary Other - Other Anaerobic Gm Negative Bacilli Assessment and Plan Assessment: 1. Acute kidney injury secondary to vasomotor nephropathy from poor intake. Creatinine peaked at 1.76 this admission and is improved to 1.[address] scan showed right-sided hydronephrosis. Patient has a right ureteral stent. Urology following. 2. Chronic kidney disease stage IIIb with baseline creatinine 1.5 secondary to nephrosclerosis. 3. Small bowel obstruction being followed by surgery. Status post laparoscopic decompressive enterostomy with closure of small bowel and proximal ileum September 24, 2023. 4. Hypernatremia from lack of oral water intake. Improved. 5. Hypokalemia from poor intake and intracellular shifting from IV bicarb. 6. A-fib with RVR maintained on Cardizem drip. Cardiology following. 7. Metabolic acidosis secondary to acute kidney injury and IV fluids. Status post bicarb drip. Improved. 8. Hypophosphatemia from poor intake. Plan: continue off of IV fluids maintained on TPN.
[2023-09-29 11:58] LABS: Glucose,Whole Blood 186 mg/dL (70-110)
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
--- NOTE | 2023-09-29 13:31 | P.PN ---
Subjective Progress Note Date: 09/29/23 CHIEF COMPLAINT: Abdominal pain HISTORY OF PRESENT ILLNESS: Patient is postop day #5 status post Robotic- assisted da Radha Xi laparoscopic decompressive enterostomy with closure small bowel, proximal ileum andRobotic-assisted da Radha Xi laparoscopic small bowel external bypass proximal ileum to mid ileum. Patient remains in the ICU. Patient failed swallow eval yesterday. Speech therapy reevaluated patient today and have started a dysphagia chopped diet. Afebrile. WBC 8.4 Hgb 9.1 platelets 170 creatinine 1.26 PHYSICAL EXAM: VITAL SIGNS: Reviewed GENERAL: Well-developed in no acute distress. HEENT: No sclera icterus. Extraocular movements grossly intact. Moist buccal mucosa. Head is atraumatic, normocephalic. Hears conversational speech. No nasal drainage. NECK: Supple without lymphadenopathy. CHEST: Non-labored respirations and equal bilateral excursions. CARDIOVASCULAR: Palpable 2+ radial pulses. ABDOMEN: Soft. Nondistended. Nontender. Incision sites clean dry and intact MUSCULOSKELETAL: No clubbing or cyanosis. NEUROLOGIC: Lethargic. But arousable and able to open eyes. Mildly confused. No focal or lateralizing signs. Cranial nerves II through XII grossly intact. SKIN: Well perfused. Good skin turgor. ASSESSMENT: 1. 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 2. Dementia 3. Acute hypoxic respiratory failure 4. Chronic atrial fibrillation 5. History of endometrial cancer PLAN: -Evaluated by speech therapy. Patient to start dysphagia chopped diet -Awaiting pathology report. Oncology following. -Continue supportive care Physician Market Development Trainer note has been reviewed by physician. Signing provider agrees with the documented findings, assessment, and plan of care. Objective - Vital Signs Vital signs: Vital Signs Temp 98.1 F 09/29/23 12:00 Pulse 95 09/29/23 12:00 Resp 18 09/29/23 12:00 BP 134/96 09/29/23 12:00 Pulse Ox 94 L 09/29/23 12:00 FiO2 35 09/27/23 15:08 Intake & Output 09/28/23 09/29/23 09/29/23 18:59 06:59 18:59 Intake Total 1632.5 1476 137.583 Output Total 495 560 165 Balance 1137.5 916 -27.417 Weight 92.4 kg Intake: IV 100 100 110 Mvi, Adult No.4 with Vit 110 K 10 ml Trace (Conc-1Ml/ Dose) 1 ml Sodium Acetate 20 meq In Amino Acid 5%- D20w+Lytes*E* 1,000 ml @ 55 mls/hr IV .[id number] [facility] Rx#:[id number] Piperacillin-Tazobactam 3 100 100 .375 gm In Sodium Chloride 0.9% 100 ml @ 25 mls/hr IVPB Q8H [facility] Rx#: [id number] Intake, IV Titration 1532.5 1376 27.583 Amount Diltiazem 125 mg In 125 7.583 Sodium Chloride 0.9% 100 ml @ Per Protocol IV .Q0M [facility] Rx#:[id number] Mvi, Adult No.4 with Vit 1292.5 1031 K 10 ml Trace (Conc-1Ml/ Dose) 1 ml Potassium Chloride 40 meq In Amino Acid 5%-D20w+Lytes*E* 1, 000 ml @ 55 mls/hr IV . [id number] [facility] Rx#:[id number] Sodium Chloride 0.9% 500 240 220 20 ml 500 ml @ 20 mls/hr IV .Q24H [facility] Rx#:[id number] Output: Urine 495 560 165 Other: Voiding Method Indwelling Catheter Indwelling Catheter Indwelling Catheter - Labs CBC & Chem 7: 09/29/23 06:17 09/29/23 06:17 Labs: Abnormal Lab Results - Last 24 Hours (Table) 09/28/23 09/28/23 09/28/23 Range/Units 16:28 20:16 23:45 RBC (3.80-5.40) m/uL Hgb (11.4-16.0) gm/dL Hct (34.0-46.0) % MCV (80.0-100.0) fL MCHC (31.0-37.0) g/dL Lymphocytes # (1.0-4.8) k/uL Chloride (98-107) mmol/L BUN (7-17) mg/dL Creatinine (0.52-1.04) mg/dL Glucose (74-99) mg/dL POC Glucose (mg/dL) 190 H 186 H 226 H (70-110) mg/dL Calcium (8.4-10.2) mg/dL Alkaline Phosphatase (38-126) U/L Total Protein (6.3-8.2) g/dL Albumin (3.5-5.0) g/dL 09/29/23 09/29/23 09/29/23 Range/Units 03:21 06:17 06:17 RBC 2.93 L (3.80-5.40) m/uL Hgb 9.1 L (11.4-16.0) gm/dL Hct 30.5 L (34.0-46.0) % MCV 104.0 H (80.0-100.0) fL MCHC 30.0 L (31.0-37.0) g/dL Lymphocytes # 0.4 L (1.0-4.8) k/uL Chloride 108 H (98-107) mmol/L BUN 41 H (7-17) mg/dL Creatinine 1.26 H (0.52-1.04) mg/dL Glucose 211 H (74-99) mg/dL POC Glucose (mg/dL) 257 H (70-110) mg/dL Calcium 7.9 L (8.4-10.2) mg/dL Alkaline Phosphatase 37 L (38-126) U/L Total Protein 4.1 L (6.3-8.2) g/dL Albumin 1.9 L (3.5-5.0) g/dL 09/29/23 09/29/23 Range/Units 08:23 11:57 RBC (3.80-5.40) m/uL Hgb (11.4-16.0) gm/dL Hct (34.0-46.0) % MCV (80.0-100.0) fL MCHC (31.0-37.0) g/dL Lymphocytes # (1.0-4.8) k/uL Chloride (98-107) mmol/L BUN (7-17) mg/dL Creatinine (0.52-1.04) mg/dL Glucose (74-99) mg/dL POC Glucose (mg/dL) 172 H 186 H (70-110) mg/dL Calcium (8.4-10.2) mg/dL Alkaline Phosphatase (38-126) U/L Total Protein (6.3-8.2) g/dL Albumin (3.5-5.0) g/dL Microbiology - Last 24 Hours (Table) 09/24/23 16:11 Anaerobic Culture - Preliminary Other - Other Anaerobic Gm Negative Bacilli
[2023-09-29] MEDS: METOPROLOL TARTRATE 12.5 MG TAB PO STA (15:10)
[2023-09-29 16:06] LABS: Glucose,Whole Blood 241 mg/dL (70-110)
--- NOTE | 2023-09-29 17:37 | CDI ---
Documentation Clarification Form Date: 09/29/2023 05:36:52 PM From: Philly Guzmán RN, CCDS Phone: [phone] Admit Date: 09/16/2023 03:26:00 AM Patient Name: Carli Higuera Visit Number: [id number] Discharge Date: ATTENTION: The Clinical Documentation Specialists (CDI) and [facility] Coding Staff appreciate your assistance in clarifying documentation. Please respond to the clarification below the line at the bottom and electronically sign. The CDI & [facility] Coding staff will review the response and follow-up if needed. Please note: Queries are made part of the Legal Health Record. If you have any questions, please contact the author of this message via ITS. Dr. Tay Medina Malnutrition is documented in the nutrition history as malnutrition severe, social. Additional clarification regarding the severity of malnutrition is requested. History/Risk Factors: Endometrial CA, preDM, CVA, Cervical CA Clinical Indicators: Complain of abdominal pain, nausea and vomiting. Abdominal CT showed SB Ltemteo=619, RIV=483-514, BUN=41, Cr=1.26, GFR=41 Current BMI:30.1 height 5 ft 9 in Duration> 1year < 50% EER > 1 month Underweight severe fat and muscle loss, severe deltoid, pectoralis, trapezius muscles & buccal fat pads loss RD Consult Assessment: Inadequate energy intake, Malnutrition severe, social Treatment: PICC line TPN @ 55 ML/HR ((Total volume 1,320) Advance diet to low-fiber as soon as medically feasible Monitor tolerance to diet advance and PN Please clarify the severity of malnutrition, if known: [ ] Mild Protein-Calorie Malnutrition [ ] Moderate Protein-Calorie Malnutrition [ x] Severe Protein-Calorie Malnutrition [ ] Other condition, please specify [ ] Unable to Determine (Template Last Revised: December 2022) MTDD
[2023-09-29 18:57] LABS: % Iron Saturation 16.56 (12.00-50.00)
[2023-09-29] MEDS: DILTIAZEM 125 MG in SODIUM CHLORIDE 0.9% 100 ML IV SCH (20:45)
[2023-09-29 20:53] LABS: Glucose,Whole Blood 285 mg/dL (70-110)
[2023-09-30 00:01] LABS: Glucose,Whole Blood 303 mg/dL (70-110)
[2023-09-30 03:26] LABS: Glucose,Whole Blood 273 mg/dL (70-110)
[2023-09-30] MEDS: MVI, ADULT NO.4 WITH VIT K 10 ML, TRACE (CONC-1ML/DOSE) 1 ML in AMINO ACID 5%-D20W+LYTE... IV SCH (03:37)
[2023-09-30] MEDS: METOPROLOL TARTRATE 25 MG TAB PO SCH (04:32)
[2023-09-30 05:34] LABS: African American GFR (CKD) 48 (>60 ml/min/1.73 sqM); Anion Gap 3 mmol/L; Blood Urea Nitrogen 40 mg/dL (7-17); Calcium 7.9 mg/dL (8.4-10.2); Carbon Dioxide 25 mmol/L (22-30); Chloride 107 mmol/L (98-107); Glucose 186 mg/dL (74-99); Magnesium 2.1 mg/dL (1.6-2.3); Non-African American GFR(CKD) 42 (>60 ml/min/1.73 sqM); Phosphorus 2.7 mg/dL (2.5-4.5); Sodium 135 mmol/L (137-145)
[2023-09-30 07:11] LABS: Glucose,Whole Blood 195 mg/dL (70-110)
--- NOTE | 2023-09-30 07:19 | P.PN ---
Subjective Progress Note Date: 09/30/23 Principal diagnosis: Permanent atrial fibrillation The patient is a pleasant 78-year-old female patient with a past medical history significant for permanent atrial fibrillation not on anticoagulation because of history of vagina bleeding as well as multiple comorbid conditions including valvular heart disease and mild cardiomyopathy who was admitted to the hospital with abdominal discomfort and she was diagnosed with bowel obstruction and she underwent laparoscopic decompression. Currently the patient is intubated she is on mechanical ventilation. September 27, 2023 The patient was seen and evaluated this morning. She continues to be intubated on mechanical ventilation. She continues to be in atrial fibrillation which is permanent with overall controlled heart rate on the current dose of Cardizem. She is not on anticoagulation because of history of vaginal bleeding. The examination reveals irregular rhythm with a soft systolic murmur and diminished breathing sounds bilaterally and mild bilateral lower extremities edema September 28, 2023 The patient was seen and evaluated this morning. She continues to be in atrial fibrillation with overall controlled heart rate on the current dose of Cardizem IV which I am going to wean and start her on metoprolol to tartrate if she is able to swallow otherwise we have to keep her on Cardizem IV. Beside that she is not a candidate for anticoagulation because of history of bleeding. She was extubated yesterday. Hemodynamically she is stable and she is not on any vasopressors at this point. Examination revealed irregular rhythm with a systolic murmur and diminished breathing sounds bilaterally and no edema was not ed September 29, 2023 The patient was seen and evaluated this morning. She remains stable with atrial fibrillation with overall controlled heart rate on the current dose of Cardizem IV. Metoprolol orally is and but she cannot take any oral medication at this point. She cannot be on any oral anticoagulation because of history of vaginal bleeding. The chest x-ray was reviewed and remained stable. The physical examination reveals irregular rhythm with clear breathing sounds bilaterally and no edema was noted. September 30, 2023 The patient was seen and evaluated this morning. She continues to be in atrial fibrillation which is permanent with overall controlled heart rate but she still on small dose of Cardizem IV. I am going to increase the dose of metoprolol from 25 mg p.o. twice daily to 50 mg p.o. twice daily. Try to wean her from Cardizem IV. Otherwise she is stable and not on any vasopressors. The examination revealed irregular rhythm with diminished breathing sounds bilaterally and mild bilateral lower extremities edema. Assessment Acute hypoxic respiratory failure. The patient was extubated yesterday Status post bowel obstruction Atrial fibrillation with controlled heart rate Valvular heart disease Multiple comorbid conditions Plan Try to wean the patient from Cardizem IV Increase the dose of metoprolol Follow-up with the patient Objective - Vital Signs Vital signs: Vital Signs Temp 97.5 F L 09/30/23 04:00 Pulse 71 09/30/23 04:00 Resp 15 09/30/23 04:00 BP 126/76 09/30/23 04:00 Pulse Ox 97 09/30/23 04:00 FiO2 35 09/27/23 15:08 Intake & Output 09/29/23 09/30/23 09/30/23 18:59 06:59 18:59 Intake Total 622.583 801.833 Output Total 715 776 Balance -92.417 25.833 Weight 92.4 kg 89.6 kg Intake: IV 595 760 Mvi, Adult No.4 with Vit 495 660 K 10 ml Trace (Conc-1Ml/ Dose) 1 ml Sodium Acetate 20 meq In Amino Acid 5%- D20w+Lytes*E* 1,000 ml @ 55 mls/hr IV .[id number] [facility] Rx#:[id number] Piperacillin-Tazobactam 3 100 100 .375 gm In Sodium Chloride 0.9% 100 ml @ 25 mls/hr IVPB Q8H [facility] Rx#: [id number] Intake, IV Titration 27.583 41.833 Amount Diltiazem 125 mg In 7.583 Sodium Chloride 0.9% 100 ml @ Per Protocol IV .Q0M [facility] Rx#:[id number] Diltiazem 125 mg In 41.833 Sodium Chloride 0.9% 100 ml @ Per Protocol IV .Q0M [facility] Rx#:[id number] Sodium Chloride 0.9% 500 20 ml 500 ml @ 20 mls/hr IV .Q24H [facility] Rx#:[id number] Output: Urine 715 775 Stool 1 Other: Voiding Method Indwelling Catheter Indwelling Catheter - Labs CBC & Chem 7: 09/29/23 06:17 09/30/23 04:50 Labs: Abnormal Lab Results - Last 24 Hours (Table) 09/29/23 09/29/23 09/29/23 Range/Units 06:17 06:17 08:23 RBC 2.93 L (3.80-5.40) m/uL Hgb 9.1 L (11.4-16.0) gm/dL Hct 30.5 L (34.0-46.0) % MCV 104.0 H (80.0-100.0) fL MCHC 30.0 L (31.0-37.0) g/dL Lymphocytes # 0.4 L (1.0-4.8) k/uL Sodium (137-145) mmol/L BUN (7-17) mg/dL Creatinine (0.52-1.04) mg/dL Glucose (74-99) mg/dL POC Glucose (mg/dL) 172 H (70-110) mg/dL Calcium (8.4-10.2) mg/dL Iron 25 L (50-175) UG/DL TIBC 151 L (228-460) UG/DL Transferrin 108.0 L (204.0-354.0) mg/dL Ferritin 570.0 H (10.0-322.0) ng/mL 09/29/23 09/29/23 09/29/23 Range/Units 11:57 16:05 20:52 RBC (3.80-5.40) m/uL Hgb (11.4-16.0) gm/dL Hct (34.0-46.0) % MCV (80.0-100.0) fL MCHC (31.0-37.0) g/dL Lymphocytes # (1.0-4.8) k/uL Sodium (137-145) mmol/L BUN (7-17) mg/dL Creatinine (0.52-1.04) mg/dL Glucose (74-99) mg/dL POC Glucose (mg/dL) 186 H 241 H 285 H (70-110) mg/dL Calcium (8.4-10.2) mg/dL Iron (50-175) UG/DL TIBC (228-460) UG/DL Transferrin (204.0-354.0) mg/dL Ferritin (10.0-322.0) ng/mL 09/29/23 09/30/23 09/30/23 Range/Units 23:59 03:25 04:50 RBC (3.80-5.40) m/uL Hgb (11.4-16.0) gm/dL Hct (34.0-46.0) % MCV (80.0-100.0) fL MCHC (31.0-37.0) g/dL Lymphocytes # (1.0-4.8) k/uL Sodium 135 L (137-145) mmol/L BUN 40 H (7-17) mg/dL Creatinine 1.23 H (0.52-1.04) mg/dL Glucose 186 H (74-99) mg/dL POC Glucose (mg/dL) 303 H 273 H (70-110) mg/dL Calcium 7.9 L (8.4-10.2) mg/dL Iron (50-175) UG/DL TIBC (228-460) UG/DL Transferrin (204.0-354.0) mg/dL Ferritin (10.0-322.0) ng/mL 09/30/23 Range/Units 07:10 RBC (3.80-5.40) m/uL Hgb (11.4-16.0) gm/dL Hct (34.0-46.0) % MCV (80.0-100.0) fL MCHC (31.0-37.0) g/dL Lymphocytes # (1.0-4.8) k/uL Sodium (137-145) mmol/L BUN (7-17) mg/dL Creatinine (0.52-1.04) mg/dL Glucose (74-99) mg/dL POC Glucose (mg/dL) 195 H (70-110) mg/dL Calcium (8.4-10.2) mg/dL Iron (50-175) UG/DL TIBC (228-460) UG/DL Transferrin (204.0-354.0) mg/dL Ferritin (10.0-322.0) ng/mL Microbiology - Last 24 Hours (Table) 09/24/23 16:11 Anaerobic Culture - Final Other - Other Anaerobic Gm Negative Bacilli Anaerobic Gm Negative Bacilli#2
[2023-09-30] MEDS: METOPROLOL TARTRATE 50 MG TAB PO SCH (10:09)
[2023-09-30 11:19] LABS: Glucose,Whole Blood 192 mg/dL (70-110)
--- NOTE | 2023-09-30 11:26 | P.PN ---
Subjective patient is seen for follow-up for acute kidney injury. Good urine output. serum creatinine staying around 1.2. patient remains comfortable and maintained on 2 L nasal cannula. Urine output at about 30-40 mL per hour. back on Cardizem drip. Objective - Vital Signs Vital signs: Vital Signs Temp 97.6 F 09/30/23 08:00 Pulse 104 H 09/30/23 08:00 Resp 18 09/30/23 08:00 BP 130/84 09/30/23 08:00 Pulse Ox 97 09/30/23 08:00 FiO2 35 09/27/23 15:08 Intake & Output 09/29/23 09/30/23 09/30/23 18:59 06:59 18:59 Intake Total 622.583 801.833 Output Total 715 776 1 Balance -92.417 25.833 -1 Weight 92.4 kg 89.6 kg Intake: IV 595 760 Mvi, Adult No.4 with Vit 495 660 K 10 ml Trace (Conc-1Ml/ Dose) 1 ml Sodium Acetate 20 meq In Amino Acid 5%- D20w+Lytes*E* 1,000 ml @ 55 mls/hr IV .[id number] [facility] Rx#:[id number] Piperacillin-Tazobactam 3 100 100 .375 gm In Sodium Chloride 0.9% 100 ml @ 25 mls/hr IVPB Q8H [facility] Rx#: [id number] Intake, IV Titration 27.583 41.833 Amount Diltiazem 125 mg In 7.583 Sodium Chloride 0.9% 100 ml @ Per Protocol IV .Q0M [facility] Rx#:[id number] Diltiazem 125 mg In 41.833 Sodium Chloride 0.9% 100 ml @ Per Protocol IV .Q0M [facility] Rx#:[id number] Sodium Chloride 0.9% 500 20 ml 500 ml @ 20 mls/hr IV .Q24H [facility] Rx#:[id number] Output: Urine 715 775 Stool 1 1 Other: Voiding Method Indwelling Catheter Indwelling Catheter Indwelling Catheter - Exam patient is awake and comfortable Examination of the heart S1 and S2 Examination of the lungs bilateral breath sounds are heard Abdomen is soft examination of lower extremities shows edema 1+ bilaterally [employer]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 grossly intact - Labs CBC & Chem 7: 09/29/23 06:17 09/30/23 04:50 Labs: Abnormal Lab Results - Last 24 Hours (Table) 09/29/23 09/29/23 09/29/23 Range/Units 06:17 11:57 16:05 Sodium (137-145) mmol/L BUN (7-17) mg/dL Creatinine (0.52-1.04) mg/dL Glucose (74-99) mg/dL POC Glucose (mg/dL) 186 H 241 H (70-110) mg/dL Calcium (8.4-10.2) mg/dL Iron 25 L (50-175) UG/DL TIBC 151 L (228-460) UG/DL Transferrin 108.0 L (204.0-354.0) mg/dL Ferritin 570.0 H (10.0-322.0) ng/mL 09/29/23 09/29/23 09/30/23 Range/Units 20:52 23:59 03:25 Sodium (137-145) mmol/L BUN (7-17) mg/dL Creatinine (0.52-1.04) mg/dL Glucose (74-99) mg/dL POC Glucose (mg/dL) 285 H 303 H 273 H (70-110) mg/dL Calcium (8.4-10.2) mg/dL Iron (50-175) UG/DL TIBC (228-460) UG/DL Transferrin (204.0-354.0) mg/dL Ferritin (10.0-322.0) ng/mL 09/30/23 09/30/23 09/30/23 Range/Units 04:50 07:10 11:10 Sodium 135 L (137-145) mmol/L BUN 40 H (7-17) mg/dL Creatinine 1.23 H (0.52-1.04) mg/dL Glucose 186 H (74-99) mg/dL POC Glucose (mg/dL) 195 H 192 H (70-110) mg/dL Calcium 7.9 L (8.4-10.2) mg/dL Iron (50-175) UG/DL TIBC (228-460) UG/DL Transferrin (204.0-354.0) mg/dL Ferritin (10.0-322.0) ng/mL Microbiology - Last 24 Hours (Table) 09/24/23 16:11 Anaerobic Culture - Final Other - Other Anaerobic Gm Negative Bacilli Anaerobic Gm Negative Bacilli#2 Assessment and Plan Assessment: 1. Acute kidney injury secondary to vasomotor nephropathy from poor intake. Creatinine peaked at 1.76 this admission and is improved to 1.2. CT scan showed right-sided hydronephrosis. Patient has a right ureteral stent. Urology following. 2. Chronic kidney disease stage IIIb with baseline creatinine 1.5 secondary to nephrosclerosis. 3. Small bowel obstruction being followed by surgery. Status post laparoscopic decompressive enterostomy with closure of small bowel and proximal ileum September 24, 2023. 4. Hypernatremia from lack of oral water intake. Improved. 5. Hypokalemia from poor intake and intracellular shifting from IV bicarb. 6. A-fib with RVR maintained on Cardizem drip. Cardiology following. 7. Metabolic acidosis secondary to acute kidney injury and IV fluids. Status post bicarb drip. Improved. 8. Hypophosphatemia from poor intake. Plan: continue off of IV fluids maintained on TPN.
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
--- NOTE | 2023-09-30 14:54 | P.PN ---
Subjective Progress Note Date: 09/30/23 Principal diagnosis: Endometrial carcinoma In follow-up today patient patient is seen on the medical floor. She reports that she feels "crappy". She denies any fevers, abdominal pain, nausea. Objective - Vital Signs Vital signs: Vital Signs Temp 97.6 F 09/30/23 08:00 Pulse 104 H 09/30/23 08:00 Resp 18 09/30/23 08:00 BP 130/84 09/30/23 08:00 Pulse Ox 97 09/30/23 08:00 FiO2 35 09/27/23 15:08 Intake & Output 09/29/23 09/30/23 09/30/23 18:59 06:59 18:59 Intake Total 622.583 801.833 Output Total 715 776 1 Balance -92.417 25.833 -1 Weight 92.4 kg 89.6 kg Intake: IV 595 760 Mvi, Adult No.4 with Vit 495 660 K 10 ml Trace (Conc-1Ml/ Dose) 1 ml Sodium Acetate 20 meq In Amino Acid 5%- D20w+Lytes*E* 1,000 ml @ 55 mls/hr IV .[id number] [facility] Rx#:[id number] Piperacillin-Tazobactam 3 100 100 .375 gm In Sodium Chloride 0.9% 100 ml @ 25 mls/hr IVPB Q8H [facility] Rx#: [id number] Intake, IV Titration 27.583 41.833 Amount Diltiazem 125 mg In 7.583 Sodium Chloride 0.9% 100 ml @ Per Protocol IV .Q0M [facility] Rx#:[id number] Diltiazem 125 mg In 41.833 Sodium Chloride 0.9% 100 ml @ Per Protocol IV .Q0M [facility] Rx#:[id number] Sodium Chloride 0.9% 500 20 ml 500 ml @ 20 mls/hr IV .Q24H [facility] Rx#:[id number] Output: Urine 715 775 Stool 1 1 Other: Voiding Method Indwelling Catheter Indwelling Catheter Indwelling Catheter - Constitutional General appearance: Present: cooperative, no acute distress, obese - EENT Eyes: Present: anicteric sclerae, EOMI ENT: Present: hearing grossly normal - Respiratory Details: resp are even and unlabored at rest - Cardiovascular Rhythm: regular - Peripheral edema leg Peripheral Edema: bilateral: Trace - Gastrointestinal General gastrointestinal: Present: soft - Integumentary Integumentary: Present: pale - Musculoskeletal Musculoskeletal: Present: generalized weakness - Psychiatric Psychiatric Comment(s): slower to respond then previously Psychiatric: Present: A&O x's 3, appropriate affect, intact judgment & insight - Labs CBC & Chem 7: 09/29/23 06:17 09/30/23 04:50 Labs: Abnormal Lab Results - Last 24 Hours (Table) 09/29/23 09/29/23 09/29/23 Range/Units 06:17 11:57 16:05 Sodium (137-145) mmol/L BUN (7-17) mg/dL Creatinine (0.52-1.04) mg/dL Glucose (74-99) mg/dL POC Glucose (mg/dL) 186 H 241 H (70-110) mg/dL Calcium (8.4-10.2) mg/dL Iron 25 L (50-175) UG/DL TIBC 151 L (228-460) UG/DL Transferrin 108.0 L (204.0-354.0) mg/dL Ferritin 570.0 H (10.0-322.0) ng/mL 09/29/23 09/29/23 09/30/23 Range/Units 20:52 23:59 03:25 Sodium (137-145) mmol/L BUN (7-17) mg/dL Creatinine (0.52-1.04) mg/dL Glucose (74-99) mg/dL POC Glucose (mg/dL) 285 H 303 H 273 H (70-110) mg/dL Calcium (8.4-10.2) mg/dL Iron (50-175) UG/DL TIBC (228-460) UG/DL Transferrin (204.0-354.0) mg/dL Ferritin (10.0-322.0) ng/mL 09/30/23 09/30/23 09/30/23 Range/Units 04:50 07:10 11:10 Sodium 135 L (137-145) mmol/L BUN 40 H (7-17) mg/dL Creatinine 1.23 H (0.52-1.04) mg/dL Glucose 186 H (74-99) mg/dL POC Glucose (mg/dL) 195 H 192 H (70-110) mg/dL Calcium 7.9 L (8.4-10.2) mg/dL Iron (50-175) UG/DL TIBC (228-460) UG/DL Transferrin (204.0-354.0) mg/dL Ferritin (10.0-322.0) ng/mL Microbiology - Last 24 Hours (Table) 09/24/23 16:11 Anaerobic Culture - Final Other - Other Anaerobic Gm Negative Bacilli Anaerobic Gm Negative Bacilli#2 - Imaging and Cardiology Pathology reports reviewed Assessment and Plan (1) Small bowel obstruction Current Visit: Yes Status: Acute Priority: High Code(s): K56.609 - UNSP INTESTNL OBST, UNSP TO PARTIAL VERSUS COMPLETE OBST SNOMED Code(s): 278008879 (2) Recurrent carcinoma of endometrium Current Visit: Yes Status: Acute Priority: Medium Code(s): C54.1 - MALIGNANT NEOPLASM OF ENDOMETRIUM SNOMED Code(s): 766040107 (3) Anemia Current Visit: Yes Status: Acute Priority: Medium Code(s): D64.9 - ANEMIA, UNSPECIFIED SNOMED Code(s): 368071483 Plan: SBO -Secondary to adhesions of the small bowel to the right sided pelvic mass. Status post bowel to bowel bypass. -Ascites cytology negative for malignancy. Specimens from biopsy of small bowel resection and anastomosis were negative for malignancy. Ovarian mass biopsy reporting adenocarcinoma. Pathology reporting similar morphologic findings from the presacral mass. Vimentin is focally positive, PAX8 is positive. ER/DE positive, CK7 is negative. Compatible with endometrial primary adenocarcinoma -Recent imaging did not show evidence of progression. Small bowel obstruction does not appear to be related to malignancy. [place] that the obstruction is likely secondary to history of radiation. -Results were reviewed with the patient. Currently it is not felt that the patient has had significant disease progression. Plan is at this time is to continue treatment as prescribed and remain on monthly injections of fulvestrant. If the patient has new symptoms additional workup will be ordered at that time. She will continue on follow-up and have imaging as scheduled. Recurrent endometrial carcinoma -Mass in the right pelvis representing known malignancy. Not suspecting true progression at this time -Continuation of fulvestrant monthly Anemia -Postop. Likely combination of surgery, dilution from fluids. -Hemoglobin stable at this time. Transfuse for hemoglobin less than 7 or if patient is symptomatic -Basic anemia workup most consistent with anemia of inflammation. No iron supplementation necessary at this time. Doctor attests: I performed a history and physical examination of this patient, developed impression and plan of care. Discussed with dictator. I agree with dictators note, documented as a scribe.
--- NOTE | 2023-09-30 14:55 | P.PN ---
Subjective Progress Note Date: 09/30/23 Principal diagnosis: Right hydronephrosis CT scan shows evidence of right hydronephrosis of indeterminate etiology. The right ureteral stent is properly positioned. The patient has a history of cervical cancer, treated with radiation therapy. She has dementia and is unaware that she has a right ureteral stent. I contacted the patient's son by phone, but he was also unaware she has a ureteral stent. I then contacted the patient's legal guardian and was told that she has not had anything urologic in nature done since they became her legal guardians in March 2023. I have been able to establish that she has been treated at [facility] in [place], and I have requested records but have not received them. Dr. Coles believes the patient has had a right ureteral stent in place for approximately 2 years. The patient has undergone small bowel surgery for her bowel obstruction, and pathology shows endometrioid carcinoma. The patient's renal function is gradually improving, and her most recent serum creatinine level is 1.23. Objective - Vital Signs Vital signs: Vital Signs Temp 98.0 F 09/30/23 12:00 Pulse 72 09/30/23 14:00 Resp 18 09/30/23 14:00 BP 125/78 09/30/23 12:00 Pulse Ox 98 09/30/23 12:00 FiO2 35 09/27/23 15:08 Intake & Output 09/29/23 09/30/23 09/30/23 18:59 06:59 18:59 Intake Total 622.583 801.833 118 Output Total 715 776 2 Balance -92.417 25.833 116 Weight 92.4 kg 89.6 kg Intake: IV 595 760 Mvi, Adult No.4 with Vit 495 660 K 10 ml Trace (Conc-1Ml/ Dose) 1 ml Sodium Acetate 20 meq In Amino Acid 5%- D20w+Lytes*E* 1,000 ml @ 55 mls/hr IV .[id number] [facility] Rx#:[id number] Piperacillin-Tazobactam 3 100 100 .375 gm In Sodium Chloride 0.9% 100 ml @ 25 mls/hr IVPB Q8H [facility] Rx#: [id number] Intake, IV Titration 27.583 41.833 Amount Diltiazem 125 mg In 7.583 Sodium Chloride 0.9% 100 ml @ Per Protocol IV .Q0M [facility] Rx#:[id number] Diltiazem 125 mg In 41.833 Sodium Chloride 0.9% 100 ml @ Per Protocol IV .Q0M [facility] Rx#:[id number] Sodium Chloride 0.9% 500 20 ml 500 ml @ 20 mls/hr IV .Q24H [facility] Rx#:[id number] Oral 118 Output: Urine 715 775 Stool 1 2 Other: Voiding Method Indwelling Catheter Indwelling Catheter Indwelling Catheter # Bowel Movements 1 - Constitutional General appearance: Present: average body habitus, no acute distress - Labs CBC & Chem 7: 09/29/23 06:17 09/30/23 04:50 Labs: Abnormal Lab Results - Last 24 Hours (Table) 09/29/23 09/29/23 09/29/23 Range/Units 06:17 16:05 20:52 Sodium (137-145) mmol/L BUN (7-17) mg/dL Creatinine (0.52-1.04) mg/dL Glucose (74-99) mg/dL POC Glucose (mg/dL) 241 H 285 H (70-110) mg/dL Calcium (8.4-10.2) mg/dL Iron 25 L (50-175) UG/DL TIBC 151 L (228-460) UG/DL Transferrin 108.0 L (204.0-354.0) mg/dL Ferritin 570.0 H (10.0-322.0) ng/mL 09/29/23 09/30/23 09/30/23 Range/Units 23:59 03:25 04:50 Sodium 135 L (137-145) mmol/L BUN 40 H (7-17) mg/dL Creatinine 1.23 H (0.52-1.04) mg/dL Glucose 186 H (74-99) mg/dL POC Glucose (mg/dL) 303 H 273 H (70-110) mg/dL Calcium 7.9 L (8.4-10.2) mg/dL Iron (50-175) UG/DL TIBC (228-460) UG/DL Transferrin (204.0-354.0) mg/dL Ferritin (10.0-322.0) ng/mL 09/30/23 09/30/23 Range/Units 07:10 11:10 Sodium (137-145) mmol/L BUN (7-17) mg/dL Creatinine (0.52-1.04) mg/dL Glucose (74-99) mg/dL POC Glucose (mg/dL) 195 H 192 H (70-110) mg/dL Calcium (8.4-10.2) mg/dL Iron (50-175) UG/DL TIBC (228-460) UG/DL Transferrin (204.0-354.0) mg/dL Ferritin (10.0-322.0) ng/mL Microbiology - Last 24 Hours (Table) 09/24/23 16:11 Anaerobic Culture - Final Other - Other Anaerobic Gm Negative Bacilli Anaerobic Gm Negative Bacilli#2 Assessment and Plan (1) Hydronephrosis Current Visit: No Status: Acute Priority: High Code(s): N13.30 - UNSPECIFIED HYDRONEPHROSIS SNOMED Code(s): 48291146 Plan: The patient has undergone a robotic assisted laparoscopic decompressive enterostomy and small bowel external bypass proximal ileum to mid ileum for her bowel obstruction. Pathology showed evidence of endometrioid carcinoma. The patient has a right pelvic mass and frozen pelvis. If the plan by oncology is to treat her, I will attempt to exchange her right ureteral stent, though it may not be possible to remove her current right ureteral stent given that it appears to have been in place for 2 years. If the patient is to be treated with comfort measures, I would suggest that the current stent simply remain in place.
--- NOTE | 2023-09-30 15:15 | P.PN ---
Subjective Progress Note Date: 09/30/23 CHIEF COMPLAINT: Abdominal pain HISTORY OF PRESENT ILLNESS: Patient is postop day #6 status post Robotic- assisted da Radha Xi laparoscopic decompressive enterostomy with closure small bowel, proximal ileum and Robotic-assisted da Radha Xi laparoscopic small bowel external bypass proximal ileum to mid ileum. Patient transferred out of the ICU this morning. Pathology positive for endometrioid adenocarcinoma. Patient lying in bed comfortably. No complaints of pain. No bowel activity. Reports that she did not eat breakfast. PHYSICAL EXAM: VITAL SIGNS: Reviewed GENERAL: Well-developed in no acute distress. HEENT: No sclera icterus. Extraocular movements grossly intact. Moist buccal mucosa. Head is atraumatic, normocephalic. Hears conversational speech. No nasal drainage. NECK: Supple without lymphadenopathy. CHEST: Non-labored respirations and equal bilateral excursions. CARDIOVASCULAR: Palpable 2+ radial pulses. ABDOMEN: Soft. Nondistended. Nontender. Incision sites clean dry and intact MUSCULOSKELETAL: No clubbing or cyanosis. NEUROLOGIC: Lethargic. But arousable and able to open eyes. Mildly confused. No focal or lateralizing signs. Cranial nerves II through XII grossly intact. SKIN: Well perfused. Good skin turgor. ASSESSMENT: 1. 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 Pathology positive for endometrial adenocarcinoma 2. Dementia 3. Acute hypoxic respiratory failure 4. Chronic atrial fibrillation 5. History of endometrial cancer PLAN: -Continue supportive care -Patient being followed by oncology service -Continue dysphagia chopped diet Physician Natural Resource Officer note has been reviewed by physician. Signing provider agrees with the documented findings, assessment, and plan of care. Objective - Vital Signs Vital signs: Vital Signs Temp 98.0 F 09/30/23 12:00 Pulse 72 09/30/23 14:00 Resp 18 09/30/23 14:00 BP 125/78 09/30/23 12:00 Pulse Ox 98 09/30/23 12:00 FiO2 35 09/27/23 15:08 Intake & Output 09/29/23 09/30/23 09/30/23 18:59 06:59 18:59 Intake Total 622.583 801.833 118 Output Total 715 776 2 Balance -92.417 25.833 116 Weight 92.4 kg 89.6 kg Intake: IV 595 760 Mvi, Adult No.4 with Vit 495 660 K 10 ml Trace (Conc-1Ml/ Dose) 1 ml Sodium Acetate 20 meq In Amino Acid 5%- D20w+Lytes*E* 1,000 ml @ 55 mls/hr IV .[id number] [facility] Rx#:[id number] Piperacillin-Tazobactam 3 100 100 .375 gm In Sodium Chloride 0.9% 100 ml @ 25 mls/hr IVPB Q8H [facility] Rx#: [id number] Intake, IV Titration 27.583 41.833 Amount Diltiazem 125 mg In 7.583 Sodium Chloride 0.9% 100 ml @ Per Protocol IV .Q0M [facility] Rx#:[id number] Diltiazem 125 mg In 41.833 Sodium Chloride 0.9% 100 ml @ Per Protocol IV .Q0M [facility] Rx#:[id number] Sodium Chloride 0.9% 500 20 ml 500 ml @ 20 mls/hr IV .Q24H [facility] Rx#:[id number] Oral 118 Output: Urine 715 775 Stool 1 2 Other: Voiding Method Indwelling Catheter Indwelling Catheter Indwelling Catheter # Bowel Movements 1 - Labs CBC & Chem 7: 09/29/23 06:17 09/30/23 04:50 Labs: Abnormal Lab Results - Last 24 Hours (Table) 09/29/23 09/29/23 09/29/23 Range/Units 06:17 16:05 20:52 Sodium (137-145) mmol/L BUN (7-17) mg/dL Creatinine (0.52-1.04) mg/dL Glucose (74-99) mg/dL POC Glucose (mg/dL) 241 H 285 H (70-110) mg/dL Calcium (8.4-10.2) mg/dL Iron 25 L (50-175) UG/DL TIBC 151 L (228-460) UG/DL Transferrin 108.0 L (204.0-354.0) mg/dL Ferritin 570.0 H (10.0-322.0) ng/mL 09/29/23 09/30/23 09/30/23 Range/Units 23:59 03:25 04:50 Sodium 135 L (137-145) mmol/L BUN 40 H (7-17) mg/dL Creatinine 1.23 H (0.52-1.04) mg/dL Glucose 186 H (74-99) mg/dL POC Glucose (mg/dL) 303 H 273 H (70-110) mg/dL Calcium 7.9 L (8.4-10.2) mg/dL Iron (50-175) UG/DL TIBC (228-460) UG/DL Transferrin (204.0-354.0) mg/dL Ferritin (10.0-322.0) ng/mL 09/30/23 09/30/23 Range/Units 07:10 11:10 Sodium (137-145) mmol/L BUN (7-17) mg/dL Creatinine (0.52-1.04) mg/dL Glucose (74-99) mg/dL POC Glucose (mg/dL) 195 H 192 H (70-110) mg/dL Calcium (8.4-10.2) mg/dL Iron (50-175) UG/DL TIBC (228-460) UG/DL Transferrin (204.0-354.0) mg/dL Ferritin (10.0-322.0) ng/mL Microbiology - Last 24 Hours (Table) 09/24/23 16:11 Anaerobic Culture - Final Other - Other Anaerobic Gm Negative Bacilli Anaerobic Gm Negative Bacilli#2
[2023-09-30 15:32] LABS: Glucose,Whole Blood 245 mg/dL (70-110)
[2023-09-30 20:16] LABS: Glucose,Whole Blood 263 mg/dL (70-110)
[2023-09-30] MEDS: [UNRECOGNIZED DRUG - REMARK] IV SCH (21:15)
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
[2023-10-01 00:14] LABS: Glucose,Whole Blood 183 mg/dL (70-110)
[2023-10-01] MEDS: MORPHINE SULFATE 4 MG/ML SYRINGE IV PRN (00:47)
[2023-10-01 04:16] LABS: Glucose,Whole Blood 136 mg/dL (70-110)
[2023-10-01 06:08] LABS: Glucose,Whole Blood 134 mg/dL (70-110)
[2023-10-01 08:15] LABS: Glucose,Whole Blood 171 mg/dL (70-110)
--- NOTE | 2023-10-01 09:39 | P.PN ---
Subjective HISTORY OF PRESENT ILLNESS: This is a 78-year-old female with a past medical history significant for nonischemic cardiomyopathy, CVA, mitral regurgitation, and persistent atrial fibrillation. Patient follows in the office with Dr. [place]. We have been asked to see the patient in consultation for A-fib with RVR. Patient examined at the bedside. Patient initially presented to the hospital with a chief complaint of abdominal pain. She states she has been having abdominal pain for the past 2 to 3 days. She reports having multiple episodes of vomiting. Patient was found to have a small bowel obstruction. Patient has an NG tube in currently to low intermittent suction. She remains NPO. She continues to report abdominal pain at the time of examination. Patient was also found to be in A-fib with RVR. She was started on IV Cardizem which continues to infuse at 10 mg an hour. She is unable to take oral medications secondary to her acute abdominal issues. Patient is not anticoagulated on an outpatient basis due to history of vaginal bleeding per most recent office records from cardiology office. DIAGNOSTICS: - EKG reveals A-fib with RVR. - Chest xray negative for acute process. - Laboratory data: WBC 10.6. Hemoglobin 12.4. Platelet count 194. Sodium 144. Potassium 4.6. BUN 35. Creatinine 1.61. - Current home cardiac medications include none. - Most recent echocardiogram obtained in April 2023 revealed ejection fraction 45 to 50%, moderate pulmonary hypertension, moderate to severe MR, mild AR - Cardiac catheterization history: 2016 revealing normal coronary arteries 09/18/2023 Patient examined this morning at the bedside. Patient continues to be NPO. She has an NG tube to low intermittent suction. Telemetry reveals atrial fibrillation with controlled ventricular rate. She remains on IV Cardizem at 10 mg an hour as patient is unable to take oral medications. Blood pressure stable. 09/19/2023 Patient examined this morning at the bedside. Patient continues to be NPO. She has an NG tube to low intermittent suction. Telemetry reveals atrial fibrillation with controlled ventricular rate. She remains on IV Cardizem at 10 mg an hour as patient is unable to take oral medications. Blood pressure s table. September 27, 2023 The patient was seen and evaluated this morning. She continues to be intubated on mechanical ventilation. She continues to be in atrial fibrillation which is permanent with overall controlled heart rate on the current dose of Cardizem. She is not on anticoagulation because of history of vaginal bleeding. The examination reveals irregular rhythm with a soft systolic murmur and diminished breathing sounds bilaterally and mild bilateral lower extremities edema September 28, 2023 The patient was seen and evaluated this morning. She continues to be in atrial fibrillation with overall controlled heart rate on the current dose of Cardizem IV which I am going to wean and start her on metoprolol to tartrate if she is able to swallow otherwise we have to keep her on Cardizem IV. Beside that she is not a candidate for anticoagulation because of history of bleeding. She was extubated yesterday. Hemodynamically she is stable and she is not on any vasopressors at this point. Examination revealed irregular rhythm with a systolic murmur and diminished breathing sounds bilaterally and no edema was noted September 29, 2023 The patient was seen and evaluated this morning. She remains stable with atrial fibrillation with overall controlled heart rate on the current dose of Cardizem IV. Metoprolol orally is and but she cannot take any oral medication at this point. She cannot be on any oral anticoagulation because of history of vaginal bleeding. The chest x-ray was reviewed and remained stable. The physical examination reveals irregular rhythm with clear breathing sounds bilaterally and no edema was noted. September 30, 2023 The patient was seen and evaluated this morning. She continues to be in atrial fibrillation which is permanent with overall controlled heart rate but she still on small dose of Cardizem IV. I am going to increase the dose of metoprolol fr om 25 mg p.o. twice daily to 50 mg p.o. twice daily. Try to wean her from Cardizem IV. Otherwise she is stable and not on any vasopressors. The examination revealed irregular rhythm with diminished breathing sounds bilaterally and mild bilateral lower extremities edema. October 01, 2023 Patient examined this morning at the bedside. Patient has been transferred out of the intensive care unit. Patient denies any chest pain or pressure. She denies any shortness of breath. Denies palpitations. Telemetry reveals atrial fibrillation with a heart rate in the low 100s. She is currently on metoprolol 50 mg twice a day. She is also on a Cardizem infusion at 2.5 mg an hour. PHYSICAL EXAM: VITAL SIGNS: Reviewed. GENERAL: Well-developed in no acute distress. HEENT: Head is normocephalic. Pupils are equal, round. Sclerae anicteric. Mucous membranes of the mouth are moist. Neck supple. No JVD or thyromegaly LUNGS: Respirations even and unlabored. Lungs essentially clear to auscultation bilaterally. HEART: Irregular rate and rhythm. S1 and S2 heard. 3/6 systolic murmur at the apex ABDOMEN: Soft. Tenderness with palpation. EXTREMITIES: Normal range of motion. No clubbing or cyanosis. Peripheral pulses intact. No lower extremity edema NEUROLOGIC: Awake and alert. Oriented x 3. ASSESSMENT: Abdominal pain Small bowel obstruction secondary to frozen abdomen and pelvic malignancy. Pathology positive for endometrial adenocarcinoma Persistent atrial fibrillation with RVR, not anticoagulated on an outpatient basis secondary to significant vaginal bleeding History of nonischemic cardiomyopathy Normal coronary arteries, per cardiac catheterization 2016 Moderate pulmonary hypertension Moderate to severe mitral regurgitation History of CVA PLAN: Patient is not anticoagulated on outpatient basis secondary to history of significant vaginal bleeding Continue current dose of metoprolol Wean Cardizem drip as heart rate tolerates Continue telemetry monitoring Further recommendations pending patient course Nurse practitioner note has been reviewed by physician. Signing provider agrees with the documented findings, assessment, and plan of care documented by RECEPTIONIST TELEPHONE OPERATOR as a scribe. Objective - Vital Signs Vital signs: Vital Signs Temp 98.1 F 10/01/23 08:09 Pulse 109 H 10/01/23 08:09 Resp 16 10/01/23 08:09 BP 126/58 10/01/23 08:09 Pulse Ox 95 10/01/23 08:09 FiO2 35 09/27/23 15:08 Intake & Output 09/30/23 10/01/23 10/01/23 18:59 06:59 18:59 Intake Total 236 40 118 Output Total 602 702 500 Balance -910 -897 -316 Intake: Intake, IV Titration 40 Amount Diltiazem 125 mg In 40 Sodium Chloride 0.9% 100 ml @ Per Protocol IV .Q0M [facility] Rx#:[id number] Oral 236 118 Output: Urine 600 700 500 Stool 2 2 Other: Voiding Method Indwelling Catheter Indwelling Catheter # Bowel Movements 1 - Labs CBC & Chem 7: 09/29/23 06:17 09/30/23 04:50 Labs: Abnormal Lab Results - Last 24 Hours (Table) 09/30/23 09/30/23 09/30/23 Range/Units 11:10 15:28 19:57 POC Glucose (mg/dL) 192 H 245 H 263 H (70-110) mg/dL 10/01/23 10/01/23 10/01/23 Range/Units 00:01 04:14 05:52 POC Glucose (mg/dL) 183 H 136 H 134 H (70-110) mg/dL 10/01/23 Range/Units 08:14 POC Glucose (mg/dL) 171 H (70-110) mg/dL
--- NOTE | 2023-10-01 10:37 | P.PN ---
Subjective patient is seen for follow-up for acute kidney injury. Good urine output. serum creatinine staying around 1.2. patient remains comfortable and maintained on 2 L nasal cannula. Patient remains on Cardizem drip. Objective - Vital Signs Vital signs: Vital Signs Temp 98.1 F 10/01/23 08:09 Pulse 109 H 10/01/23 08:09 Resp 16 10/01/23 08:09 BP 126/58 10/01/23 08:09 Pulse Ox 95 10/01/23 08:09 FiO2 35 09/27/23 15:08 Intake & Output 09/30/23 10/01/23 10/01/23 18:59 06:59 18:59 Intake Total 236 40 128 Output Total 602 702 500 Balance -366 -514 -262 Intake: IV 10 Invasive Line 8 10 Intake, IV Titration 40 Amount Diltiazem 125 mg In 40 Sodium Chloride 0.9% 100 ml @ Per Protocol IV .Q0M [facility] Rx#:[id number] Oral 236 118 Output: Urine 600 700 500 Stool 2 2 Other: Voiding Method Indwelling Catheter Indwelling Catheter Indwelling Catheter # Bowel Movements 1 - Exam patient is awake and comfortable Examination of the heart S1 and S2 Examination of the lungs bilateral breath sounds are heard Abdomen is soft examination of lower extremities shows edema 1+ bilaterally [employer] exam is grossly intact - Labs CBC & Chem 7: 09/29/23 06:17 09/30/23 04:50 Labs: Abnormal Lab Results - Last 24 Hours (Table) 09/30/23 09/30/23 09/30/23 Range/Units 11:10 15:28 19:57 POC Glucose (mg/dL) 192 H 245 H 263 H (70-110) mg/dL 10/01/23 10/01/23 10/01/23 Range/Units 00:01 04:14 05:52 POC Glucose (mg/dL) 183 H 136 H 134 H (70-110) mg/dL 10/01/23 Range/Units 08:14 POC Glucose (mg/dL) 171 H (70-110) mg/dL Assessment and Plan Assessment: 1. Acute kidney injury secondary to vasomotor nephropathy from poor intake. Creatinine peaked at 1.76 this admission and is improved to 1.2. CT scan showed right-sided hydronephrosis. Patient has a right ureteral stent. Urology following. 2. Chronic kidney disease stage IIIb with baseline creatinine 1.5 secondary to nephrosclerosis. 3. Small bowel obstruction being followed by surgery. Status post laparoscopic decompressive enterostomy with closure of small bowel and proximal ileum September 24, 2023. 4. Hypernatremia from lack of oral water intake. Improved. 5. Hypokalemia from poor intake and intracellular shifting from IV bicarb. 6. A-fib with RVR maintained on Cardizem drip. Cardiology following. 7. Metabolic acidosis secondary to acute kidney injury and IV fluids. Status post bicarb drip. Improved. 8. Hypophosphatemia from poor intake. Plan: continue off of IV fluids maintained on TPN.
[2023-10-01 11:18] LABS: African American GFR (CKD) 43 (>60 ml/min/1.73 sqM); Anion Gap 3 mmol/L; Blood Urea Nitrogen 40 mg/dL (7-17); Calcium 8.3 mg/dL (8.4-10.2); Carbon Dioxide 26 mmol/L (22-30); Chloride 104 mmol/L (98-107); Glucose 175 mg/dL (74-99); Magnesium 2.1 mg/dL (1.6-2.3); Non-African American GFR(CKD) 37 (>60 ml/min/1.73 sqM); Potassium 5.1 mmol/L (3.5-5.1); Sodium 133 mmol/L (137-145)
[2023-10-01 11:29] LABS: Glucose,Whole Blood 235 mg/dL (70-110)
[2023-10-01 11:43] LABS: Glucose,Whole Blood 212 mg/dL (70-110)
--- NOTE | 2023-10-01 12:47 | P.PN ---
Subjective Progress Note Date: 10/01/23 CHIEF COMPLAINT: Abdominal pain HISTORY OF PRESENT ILLNESS: Patient is postop day #7 status post Robotic- assisted da Radha Xi laparoscopic decompressive enterostomy with closure small bowel, proximal ileum and Robotic-assisted da Radha Xi laparoscopic small bowel external bypass proximal ileum to mid ileum. Pathology positive for endometrioid adenocarcinoma. Patient sitting at bedside chair. She ate 25% of her breakfast per nursing staff. no complaints of pain. Patient had BM. Afebrile. PHYSICAL EXAM: VITAL SIGNS: Reviewed GENERAL: Well-developed in no acute distress. HEENT: No sclera icterus. Extraocular movements grossly intact. Moist buccal mucosa. Head is atraumatic, normocephalic. Hears conversational speech. No nasal drainage. NECK: Supple without lymphadenopathy. CHEST: Non-labored respirations and equal bilateral excursions. CARDIOVASCULAR: Palpable 2+ radial pulses. ABDOMEN: Soft. Nondistended. Nontender. Incision sites clean dry and intact MUSCULOSKELETAL: No clubbing or cyanosis. NEUROLOGIC: Awake. Confused. Difficulty with forming words. SKIN: Well perfused. Good skin turgor. ASSESSMENT: 1. 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 Pathology positive for endometrial adenocarcinoma 2. Dementia 3. Acute hypoxic respiratory failure 4. Chronic atrial fibrillation 5. History of endometrial cancer PLAN: -Wean off TPN -Continue dysphagia chopped diet -Consult neurology regarding altered mental status and difficulty with her speech. Patient having difficulty forming words. -CT scan of the brain ordered to rule out stroke -Continue supportive care -Patient being followed by oncology service Physician Communications Tower Technician note has been reviewed by physician. Signing provider agrees with the documented findings, assessment, and plan of care. Objective - Vital Signs Vital signs: Vital Signs Temp 98.1 F 10/01/23 08:09 Pulse 109 H 10/01/23 08:09 Resp 16 10/01/23 08:09 BP 126/58 10/01/23 08:09 Pulse Ox 95 10/01/23 08:09 FiO2 35 09/27/23 15:08 Intake & Output 09/30/23 10/01/23 10/01/23 18:59 06:59 18:59 Intake Total 236 40 128 Output Total 602 782 500 Balance -679 -665 -356 Intake: IV 10 Invasive Line 8 10 Intake, IV Titration 40 Amount Diltiazem 125 mg In 40 Sodium Chloride 0.9% 100 ml @ Per Protocol IV .Q0M [facility] Rx#:[id number] Oral 236 118 Output: Urine 600 700 500 Stool 2 2 Other: Voiding Method Indwelling Catheter Indwelling Catheter Indwelling Catheter # Bowel Movements 1 - Labs CBC & Chem 7: 09/29/23 06:17 10/01/23 09:14 Labs: Abnormal Lab Results - Last 24 Hours (Table) 09/30/23 09/30/23 09/30/23 Range/Units 11:10 15:28 19:57 POC Glucose (mg/dL) 192 H 245 H 263 H (70-110) mg/dL 10/01/23 10/01/23 10/01/23 Range/Units 00:01 04:14 05:52 POC Glucose (mg/dL) 183 H 136 H 134 H (70-110) mg/dL 10/01/23 Range/Units 08:14 POC Glucose (mg/dL) 171 H (70-110) mg/dL
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
--- NOTE | 2023-10-01 13:38 | CT ---
EXAMINATION TYPE: CT brain wo con DATE OF EXAM: 10/01/2023 COMPARISON: 05/04/2023 HISTORY: Altered mental status CT DLP: 1095.4 mGycm Automated exposure control for dose reduction was used. FINDINGS: The ventricles, basal cisterns and sulci over convexities are moderately to markedly enlarged consist ent with moderate to marked atrophy. There is a focal area of encephalomalacia in the posterior right frontal lobe consistent with remote infarct. Similar smaller areas of encephalomalacia consistent with remote ischemic infarcts involving the left parietal lobe and bilateral occipital lobes. There is no acute intra or extra-axial hemorrhage There is no mass effect or shift in midline structures. There are remote infarcts in the right cerebellar hemisphere. The brainstem and fourth ventricle are normal. The intraorbital contents appear normal with symmetric. Visualized paranasal sinuses and mastoid air cells are well aerated. There is a small mucous retentio n cyst or polyp in the left maxillary sinus There is marked decreased density in the periventricular white matter consistent with chronic ischemi c white matter demyelination. IMPRESSION: 1. NO ACUTE BLEED OR MASS EFFECT. 2. MULTIPLE REMOTE CORTICAL INFARCTS SCATTERED THROUGHOUT BOTH CEREBRAL HEMISPHERES AND WITHIN THE CE REBELLUM. 3. MARKED CHRONIC ISCHEMIC WHITE MATTER DEMYELINATION AND MODERATE TO MARKED CORTICAL ATROPHY.
--- NOTE | 2023-10-01 15:02 | P.PN ---
Subjective Progress Note Date: 10/01/23 Principal diagnosis: Reason for follow-up is peritonitis Patient is a 78-year-old female with a past medical history significant for CVA TIA hyperlipidemia MA atrial fibrillation, endometrial cancer presenting to the hospital for nausea vomiting abdominal pain patient has been evaluated by surgery taken to the OR on 09/24/2023 status post laparoscopic decompressive enterostomy with closure small bowel as well as small bowel external bypass proximal to mid ileum, abdominal culture positive for Klebsiella and E. coli Enterococcus faecalis on today's evaluation that is 10/01/2023,the patient denies any fever or any chills, patient is breathing comfortably on 2 L nasal cannula oxygen, the patient denies chest pain shortness of breath and no significant cough, patient abdominal pain has decreased intensity oral intake is normal no vomiting or diarrhea reported by the nursing staff. No CBC was done today creatinine is 1.37 Objective - Vital Signs Vital signs: Vital Signs Temp 98.1 F 10/01/23 08:09 Pulse 109 H 10/01/23 08:09 Resp 16 10/01/23 08:09 BP 126/58 10/01/23 08:09 Pulse Ox 95 10/01/23 08:09 FiO2 35 09/27/23 15:08 Intake & Output 09/30/23 10/01/23 10/01/23 18:59 06:59 18:59 Intake Total 236 40 Output Total 602 702 Balance -366 -662 Intake: Intake, IV Titration 40 Amount Diltiazem 125 mg In 40 Sodium Chloride 0.9% 100 ml @ Per Protocol IV .Q0M [facility] Rx#:[id number] Oral 236 Output: Urine 600 700 Stool 2 2 Other: Voiding Method Indwelling Catheter Indwelling Catheter # Bowel Movements 1 - Exam GENERAL DESCRIPTION: An elderly female lying in bed in no distress RESPIRATORY SYSTEM: Unlabored breathing , decreased breath sounds at bases HEART: S1 S2 regular rate and rhythm , ABDOMEN: Soft , no tenderness EXTREMITIES: No edema feet - Labs CBC & Chem 7: 09/29/23 06:17 10/01/23 09:14 Labs: Abnormal Lab Results - Last 24 Hours (Table) 09/30/23 09/30/23 09/30/23 Range/Units 11:10 15:28 19:57 POC Glucose (mg/dL) 192 H 245 H 263 H (70-110) mg/dL 10/01/23 10/01/23 10/01/23 Range/Units 00:01 04:14 05:52 POC Glucose (mg/dL) 183 H 136 H 134 H (70-110) mg/dL 10/01/23 Range/Units 08:14 POC Glucose (mg/dL) 171 H (70-110) mg/dL Assessment and Plan (1) Peritonitis Current Visit: Yes Status: Acute Code(s): K65.9 - PERITONITIS, UNSPECIFIED SNOMED Code(s): 85638616 Plan: 1patient presented to hospital more than 2 weeks ago for abdominal pain and this patient has been diagnosed with the small bowel obstruction patient is status post laparoscopic decompressive enterostomy with closure small bowel, proximal ileum and did have a external bypass proximal ileum terminal ileum biopsy has been positive for endometrial cancer and abdominal culture has been positive for Klebsiella E. coli Enterococcus along with anaerobes concerning for secondary peritonitis 2-patient did have a normalization of the white count and is afebrile 3-patient to continue with the Zosyn while inpatient and monitor clinical course closely Dictation was produced using [employer] dictation software. please excuse any grammatical, word or spelling errors.
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
[2023-10-01] MEDS: METOPROLOL TARTRATE 50 MG TAB PO SCH (15:47)
[2023-10-01 15:53] LABS: Glucose,Whole Blood 211 mg/dL (70-110)
[2023-10-01 20:45] LABS: Glucose,Whole Blood 208 mg/dL (70-110)
[2023-10-01] MEDS: ASPIRIN 81 MG PO SCH (20:59)
[2023-10-01] MEDS: MVI, ADULT NO.4 WITH VIT K 10 ML, TRACE (CONC-1ML/DOSE) 1 ML, SODIUM PHOSPHATE 15 MMOL,... IV SCH (22:14)
[2023-10-01 23:31] LABS: Glucose,Whole Blood 137 mg/dL (70-110)
--- NOTE | 2023-10-01 23:36 | P.CNNES ---
History of Present Illness Consult date: 10/01/23 Requesting physician: Ainsley Fulton Reason for Consult: Altered mental status, difficulty with speech History of Present Illness: Patient is a 78-year-old left-handed female came to the hospital by ambulance on 09/15/2023 for abdominal pain and vomiting for the previous 12 hours. Patient was found to have small bowel obstruction. She underwent lysis of adhesions on 09/28/2023, and was found to have pelvic mass. Patient has been very confused, oriented x 1, therefore neurology was consulted. Patient at present complaining of back hurting. She is asking "did my shit come out", as she states "I have blockage". She denies headache. Patient not able to provide any history. I spoke to patient's son on the phone, who mentions that patient does have history of cancer for which she follows up with Sur[facility]. He does not know what is the primary and what stage. He mentions that there is a person named Dorian, who lives in the same building as hers, and Mr. Ivey called patient's son telling him that she owe him $300. Patient's son mentions that Denny also has been persuading patient to buy some "miracle medication" which he claims would cure the cancer. He states that patient acutely had changes in mental status prior to arrival. He is concerned if Mr. Alarcon is giving her some drugs or some medications which is affecting her mental status. He states that Denny is involved in alcoholism and gambling. He states that patient has some health problems going on, with vomiting, "bowels messed up" and her eyes are "bad". Patient's son mentions that prior to this hospitalization she was normally functioning person. Patient's son also mentions that patient has been using walker for last 14 years. Patient has history of smoking 2 packs/day Patient's blood test shows sodium 133 potassium 5.1, BUN 40, creatinine 1.37. Magnesium is normal. WBC 8.4, hemoglobin 9.1, elevated MCV 104.0. Electrolytes are normal, BUN 41 creatinine 1.26. Hepatic panel normal. B12 445, folate 6.20. CT head showed no acute process. Multiple remote cortical infarcts scattered throughout both cerebral hemispheres and within the cerebellum. Mild chronic ischemic white matter demyelination and moderate to marked cortical atrophy. I personally reviewed CT head and agree with evidence of old ischemic infarct/encephalomalacia involving the right posterior frontal region bilateral parietal occipital region and occ ipital lobes. Visualized paranasal sinuses are clear. These areas of encephalomalacia were also present in the previous CT scan of head from 05/04/2023. No new change. Patient has history of smoking 2 pack/day since age 14, quit at age 64. No history of drugs or alcohol use. Review of Systems Review of systems known reliable due to patient noncooperation. Patient's son does not know any more details. ROS unobtainable: due to mental status Eyes: bilateral loss of vision Ears: deny: decreased hearing Past Medical History Past Medical History: Atrial Fibrillation, Cancer, CVA/TIA, GI Bleed, Hyperlipidemia, Myocardial Infarction (MD) Additional Past Medical History / Comment(s): 07/27/17 FALL'LT HIP FX. 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 History of COVID-19, cervical cancer treated with radiation. No taking Eliquis due to bleeding issues in past. Last Myocardial Infarction Date:: 2009 History of Any Multi-Drug Resistant Organisms: None Reported Past Surgical History: Heart Catheterization, Orthopedic Surgery, Tonsillectomy Additional Past Surgical History / Comment(s): ORIF RT ANKLE HAS PLATE. Past Anesthesia/Blood Transfusion Reactions: No Reported Reaction Past Psychological History: No Psychological Hx Reported Smoking Status: Former smoker, Never smoker Past Alcohol Use History: None Reported Past Drug Use History: None Reported - Past Family History Mother Family Medical History: No Reported History Additional Family Medical History / Comment(s): FROM ANUERYSM Father Family Medical History: No Reported History Medications and Allergies Home Medications Medication Instructions Recorded Confirmed Type No Known Home Medications 09/16/23 09/16/23 History Allergies Allergy/AdvReac Type Severity Reaction Status Date / Time No Known Allergies Allergy Verified 09/16/23 10:37 Physical Examination - Vital Signs Vital Signs: Vital Signs Temp Pulse Pulse Resp BP Pulse Ox 10/01/23 15:44 97 16 122/78 97 10/01/23 11:30 80 16 111/56 99 10/01/23 08:09 98.1 F 109 H 16 126/58 95 10/01/23 03:55 97.6 F 74 14 116/72 98 10/01/23 01:40 104 H 18 09/30/23 23:23 98.3 F 86 20 120/75 96 09/30/23 20:00 98.7 F 82 104 H 18 Intake and Output 10/01/23 10/01/23 10/01/23 06:59 14:59 22:59 Intake Total 409.791 Output Total 701 500 Balance -701 -90.209 Intake: IV 20 Invasive Line 8 20 Intake, IV Titration 35.791 Amount Diltiazem 125 mg In 35.791 Sodium Chloride 0.9% 100 ml @ Per Protocol IV .Q0M [facility] Rx#:[id number] Oral 354 Output: Urine 700 500 Stool 1 Other: Voiding Method Indwelling Catheter Indwelling Catheter Weight 89.6 kg Patient is an elderly female, laying in the bed, appears somewhat cachectic, moaning frequently. Patient is extremely not cooperating with e xamination. She is like in her own world. She moans, then states "my back hurts" in the singing tone. Patient does become alert awake, but moans more. She is only oriented x 1. She could not tell the month of the year, the city or the state, states "I do not know". She states "I do not give a crap" for every question. Speech and language functions are normal. Patient speaks with very unusual tone like singing. Patient was able to name some objects like glasses, but states "I cannot see". She could not name pen or shirt collar. She does not know who Mr. Alarcon is. She would not repeat for me. There is no dysarthria. Limited speech is clear. Attention, concentration and fund of knowledge is severely limited. On cranial nerve examination, pupils are equal, round and reacting to light. Patient has very significant visual field deficits bilaterally, likely from previous stroke. Extraocular muscles are intact with no nystagmus. Face is symmetric, tongue protrudes to the midline. Palatal elevation and sensation normal, hearing appears somewhat decreased and she did not cooperate for shoulder shrug and facial sensation. On muscle strength testing, patient did not cooperate for pronator drift. Her biceps, triceps and tennis player are normal. When I tried to examine, she tries to use my hand to lift herself up. In the lower limbs patient is trying to lift her legs using her hands. Patient moves her lower extremities equally to noxious stimuli. Patient has some bad scabs over her left thigh. Deep tendon reflexes are symmetric very diminished and plantars are flat. Sensory to touch patient would not cooperate, but responds to painful stimuli equally. Cerebellar function patient did not cooperate with examination. Tone and bulk of muscles normal. Gait deferred.. On general examination, there is no carotid bruit or murmur, S1-S2 audible. Chest is clear on consultation. Abdomen is soft nontender. No organomegaly, bowel sounds present. Peripheral pulses are present. Moderate peripheral edema. Patient has scab on the left thigh. Patient has bruises on the legs. And some in the arms. Results - Laboratory Findings CBC and BMP: 09/29/23 06:17 10/01/23 09:14 Abnormal Lab Findings: Abnormal Labs 09/15/23 09/15/23 09/16/23 23:54 23:54 05:10 WBC RBC Hgb Hct MCV MCHC Plt Count Neutrophils # 8.6 H Lymphocytes # 0.8 L ABG pH ABG pCO2 ABG pO2 ABG HCO3 ABG Total CO2 ABG O2 Saturation Sodium Potassium 6.1 H* Chloride 112 H Carbon Dioxide BUN 37 H 35 H Creatinine 1.71 H 1.61 H Glucose 157 H 69 L POC Glucose (mg/dL) Hemoglobin A1c Calcium Phosphorus Iron TIBC Transferrin Ferritin Total Bilirubin 1.4 H Alkaline Phosphatase Total Protein Albumin CA 15-3 Antigen CA 125 Antigen Procalcitonin Urine Appearance Urine Protein Urine Glucose (UA) Urine Ketones Urine Blood Ur Leukocyte Esterase Urine RBC Urine WBC Urine WBC Clumps Amorphous Sediment Urine Bacteria Urine Mucus 09/16/23 09/16/23 09/16/23 05:10 06:40 09:03 WBC 11.6 H RBC Hgb Hct MCV 102.6 H MCHC 30.7 L Plt Count Neutrophils # 10.4 H Lymphocytes # 0.5 L ABG pH ABG pCO2 ABG pO2 ABG HCO3 ABG Total CO2 ABG O2 Saturation Sodium Potassium Chloride Carbon Dioxide BUN Creatinine Glucose POC Glucose (mg/dL) 118 H Hemoglobin A1c Calcium Phosphorus Iron TIBC Transferrin Ferritin Total Bilirubin Alkaline Phosphatase Total Protein Albumin CA 15-3 Antigen CA 125 Antigen Procalcitonin Urine Appearance Turbid H Urine Protein 2+ H Urine Glucose (UA) 1+ H Urine Ketones Urine Blood Large H Ur Leukocyte Esterase Moderate H Urine RBC >182 H Urine WBC 117 H Urine WBC Clumps Few H Amorphous Sediment Rare H Urine Bacteria Rare H Urine Mucus Occasional H 09/18/23 09/20/23 09/21/23 10:37 08:55 10:17 WBC RBC Hgb Hct MCV MCHC Plt Count Neutrophils # Lymphocytes # ABG pH ABG pCO2 ABG pO2 ABG HCO3 ABG Total CO2 ABG O2 Saturation Sodium 147 H 148 H Potassium 3.3 L Chloride 115 H 115 H Carbon Dioxide BUN 54 H 40 H Creatinine 1.76 H 1.25 H Glucose 155 H 175 H POC Glucose (mg/dL) Hemoglobin A1c Calcium Phosphorus Iron TIBC Transferrin Ferritin Total Bilirubin Alkaline Phosphatase Total Protein Albumin CA 15-3 Antigen CA 125 Antigen Procalcitonin 0.49 H Urine Appearance Urine Protein Urine Glucose (UA) Urine Ketones Urine Blood Ur Leukocyte Esterase Urine RBC Urine WBC Urine WBC Clumps Amorphous Sediment Urine Bacteria Urine Mucus 09/21/23 09/22/23 09/23/23 10:17 08:42 06:29 WBC RBC Hgb Hct MCV MCHC Plt Count Neutrophils # Lymphocytes # ABG pH ABG pCO2 ABG pO2 ABG HCO3 ABG Total CO2 ABG O2 Saturation Sodium 146 H Potassium 2.9 L Chloride 111 H 108 H Carbon Dioxide BUN 34 H 36 H 45 H Creatinine 1.33 H 1.56 H 1.61 H Glucose 131 H 139 H 141 H POC Glucose (mg/dL) Hemoglobin A1c Calcium Phosphorus Iron TIBC Transferrin Ferritin Total Bilirubin Alkaline Phosphatase Total Protein Albumin CA 15-3 Antigen CA 125 Antigen Procalcitonin Urine Appearance Urine Protein Urine Glucose (UA) Urine Ketones Urine Blood Ur Leukocyte Esterase Urine RBC Urine WBC Urine WBC Clumps Amorphous Sediment Urine Bacteria Urine Mucus 09/24/23 09/24/23 09/24/23 06:30 06:30 17:46 WBC RBC 3.09 L Hgb 9.8 L D Hct 31.1 L MCV 100.4 H MCHC Plt Count Neutrophils # Lymphocytes # ABG pH ABG pCO2 ABG pO2 ABG HCO3 ABG Total CO2 ABG O2 Saturation Sodium Potassium Chloride Carbon Dioxide BUN 40 H Creatinine 1.35 H Glucose POC Glucose (mg/dL) 129 H Hemoglobin A1c Calcium Phosphorus Iron TIBC Transferrin Ferritin Total Bilirubin Alkaline Phosphatase Total Protein Albumin CA 15-3 Antigen CA 125 Antigen Procalcitonin Urine Appearance Urine Protein Urine Glucose (UA) Urine Ketones Urine Blood Ur Leukocyte Esterase Urine RBC Urine WBC Urine WBC Clumps Amorphous Sediment Urine Bacteria Urine Mucus 09/24/23 09/24/23 09/24/23 17:56 17:56 17:56 WBC RBC 3.24 L Hgb 10.3 L Hct 33.3 L MCV 102.9 H MCHC 30.9 L Plt Count Neutrophils # 9.3 H Lymphocytes # 0.4 L ABG pH ABG pCO2 ABG pO2 ABG HCO3 ABG Total CO2 ABG O2 Saturation Sodium Potassium Chloride 112 H Carbon Dioxide 16 L BUN 37 H Creatinine 1.45 H Glucose 131 H POC Glucose (mg/dL) Hemoglobin A1c Calcium 8.0 L 8.1 L Phosphorus Iron TIBC Transferrin Ferritin Total Bilirubin 1.4 H Alkaline Phosphatase Total Protein 4.8 L Albumin 2.5 L CA 15-3 Antigen CA 125 Antigen Procalcitonin Urine Appearance Urine Protein Urine Glucose (UA) Urine Ketones Urine Blood Ur Leukocyte Esterase Urine RBC Urine WBC Urine WBC Clumps Amorphous Sediment Urine Bacteria Urine Mucus 09/24/23 09/24/23 09/25/23 18:45 21:10 00:47 WBC RBC Hgb Hct MCV MCHC Plt Count Neutrophils # Lymphocytes # ABG pH ABG pCO2 ABG pO2 ABG HCO3 ABG Total CO2 ABG O2 Saturation Sodium Potassium Chloride Carbon Dioxide BUN Creatinine Glucose POC Glucose (mg/dL) 173 H 247 H Hemoglobin A1c Calcium Phosphorus Iron TIBC Transferrin Ferritin Total Bilirubin Alkaline Phosphatase Total Protein Albumin CA 15-3 Antigen CA 125 Antigen Procalcitonin Urine Appearance Cloudy H Urine Protein 2+ H Urine Glucose (UA) Urine Ketones 1+ H Urine Blood Moderate H Ur Leukocyte Esterase Moderate H Urine RBC >182 H Urine WBC 65 H Urine WBC Clumps Amorphous Sediment Urine Bacteria Urine Mucus 09/25/23 09/25/23 09/25/23 04:10 04:43 04:43 WBC RBC Hgb Hct MCV MCHC Plt Count Neutrophils # Lymphocytes # ABG pH ABG pCO2 ABG pO2 ABG HCO3 ABG Total CO2 ABG O2 Saturation Sodium Potassium Chloride 110 H Carbon Dioxide 14 L BUN 40 H Creatinine 1.58 H Glucose 264 H POC Glucose (mg/dL) 262 H Hemoglobin A1c 6.7 H Calcium 7.9 L Phosphorus Iron TIBC Transferrin Ferritin Total Bilirubin Alkaline Phosphatase Total Protein Albumin CA 15-3 Antigen 63.4 H CA 125 Antigen 75.5 H Procalcitonin Urine Appearance Urine Protein Urine Glucose (UA) Urine Ketones Urine Blood Ur Leukocyte Esterase Urine RBC Urine WBC Urine WBC Clumps Amorphous Sediment Urine Bacteria Urine Mucus 09/25/23 09/25/23 09/25/23 04:43 05:51 08:04 WBC 11.4 H RBC 3.04 L Hgb 9.4 L Hct 31.1 L MCV 102.5 H MCHC 30.2 L Plt Count Neutrophils # 10.7 H Lymphocytes # 0.3 L ABG pH ABG pCO2 23 L ABG pO2 128 H ABG HCO3 16 L ABG Total CO2 17 L ABG O2 Saturation 99.0 H Sodium Potassium Chloride Carbon Dioxide BUN Creatinine Glucose POC Glucose (mg/dL) 297 H Hemoglobin A1c Calcium Phosphorus Iron TIBC Transferrin Ferritin Total Bilirubin Alkaline Phosphatase Total Protein Albumin CA 15-3 Antigen CA 125 Antigen Procalcitonin Urine Appearance Urine Protein Urine Glucose (UA) Urine Ketones Urine Blood Ur Leukocyte Esterase Urine RBC Urine WBC Urine WBC Clumps Amorphous Sediment Urine Bacteria Urine Mucus 09/25/23 09/25/23 09/25/23 11:52 16:12 20:03 WBC RBC Hgb Hct MCV MCHC Plt Count Neutrophils # Lymphocytes # ABG pH ABG pCO2 ABG pO2 ABG HCO3 ABG Total CO2 ABG O2 Saturation Sodium Potassium Chloride Carbon Dioxide BUN Creatinine Glucose POC Glucose (mg/dL) 367 H 386 H 326 H Hemoglobin A1c Calcium Phosphorus Iron TIBC Transferrin Ferritin Total Bilirubin Alkaline Phosphatase Total Protein Albumin CA 15-3 Antigen CA 125 Antigen Procalcitonin Urine Appearance Urine Protein Urine Glucose (UA) Urine Ketones Urine Blood Ur Leukocyte Esterase Urine RBC Urine WBC Urine WBC Clumps Amorphous Sediment Urine Bacteria Urine Mucus 09/26/23 09/26/23 09/26/23 00:15 03:57 04:22 WBC RBC Hgb Hct MCV MCHC Plt Count Neutrophils # Lymphocytes # ABG pH ABG pCO2 ABG pO2 ABG HCO3 ABG Total CO2 ABG O2 Saturation Sodium 136 L Potassium 3.2 L Chloride Carbon Dioxide BUN 42 H Creatinine 1.40 H Glucose 229 H POC Glucose (mg/dL) 326 H 234 H Hemoglobin A1c Calcium 7.8 L Phosphorus 2.4 L Iron TIBC Transferrin Ferritin Total Bilirubin Alkaline Phosphatase Total Protein Albumin CA 15-3 Antigen CA 125 Antigen Procalcitonin Urine Appearance Urine Protein Urine Glucose (UA) Urine Ketones Urine Blood Ur Leukocyte Esterase Urine RBC Urine WBC Urine WBC Clumps Amorphous Sediment Urine Bacteria Urine Mucus 09/26/23 09/26/23 09/26/23 04:22 06:06 08:01 WBC 13.0 H RBC 3.09 L Hgb 9.8 L Hct 30.9 L MCV 100.1 H MCHC Plt Count Neutrophils # 12.0 H Lymphocytes # 0.4 L ABG pH 7.49 H ABG pCO2 ABG pO2 ABG HCO3 32 H ABG Total CO2 33 H ABG O2 Saturation 99.0 H Sodium Potassium Chloride Carbon Dioxide BUN Creatinine Glucose POC Glucose (mg/dL) 223 H Hemoglobin A1c Calcium Phosphorus Iron TIBC Transferrin Ferritin Total Bilirubin Alkaline Phosphatase Total Protein Albumin CA 15-3 Antigen CA 125 Antigen Procalcitonin Urine Appearance Urine Protein Urine Glucose (UA) Urine Ketones Urine Blood Ur Leukocyte Esterase Urine RBC Urine WBC Urine WBC Clumps Amorphous Sediment Urine Bacteria Urine Mucus 09/26/23 09/26/23 09/26/23 12:18 14:34 15:58 WBC RBC Hgb Hct MCV MCHC Plt Count Neutrophils # Lymphocytes # ABG pH 7.48 H ABG pCO2 ABG pO2 130 H ABG HCO3 32 H ABG Total CO2 33 H ABG O2 Saturation 98.8 H Sodium Potassium Chloride Carbon Dioxide BUN Creatinine Glucose POC Glucose (mg/dL) 180 H 188 H Hemoglobin A1c Calcium Phosphorus Iron TIBC Transferrin Ferritin Total Bilirubin Alkaline Phosphatase Total Protein Albumin CA 15-3 Antigen CA 125 Antigen Procalcitonin Urine Appearance Urine Protein Urine Glucose (UA) Urine Ketones Urine Blood Ur Leukocyte Esterase Urine RBC Urine WBC Urine WBC Clumps Amorphous Sediment Urine Bacteria Urine Mucus 09/26/23 09/26/23 09/27/23 16:25 19:52 00:11 WBC RBC Hgb Hct MCV MCHC Plt Count Neutrophils # Lymphocytes # ABG pH ABG pCO2 ABG pO2 ABG HCO3 ABG Total CO2 ABG O2 Saturation Sodium Potassium 3.4 L Chloride Carbon Dioxide BUN Creatinine Glucose POC Glucose (mg/dL) 131 H 177 H Hemoglobin A1c Calcium Phosphorus Iron TIBC Transferrin Ferritin Total Bilirubin Alkaline Phosphatase Total Protein Albumin CA 15-3 Antigen CA 125 Antigen Procalcitonin Urine Appearance Urine Protein Urine Glucose (UA) Urine Ketones Urine Blood Ur Leukocyte Esterase Urine RBC Urine WBC Urine WBC Clumps Amorphous Sediment Urine Bacteria Urine Mucus 09/27/23 09/27/23 09/27/23 04:22 05:20 05:20 WBC 15.4 H RBC 3.08 L Hgb 9.7 L Hct 30.3 L MCV MCHC Plt Count Neutrophils # 13.9 H Lymphocytes # 0.7 L ABG pH ABG pCO2 ABG pO2 ABG HCO3 ABG Total CO2 ABG O2 Saturation Sodium 136 L Potassium Chloride Carbon Dioxide BUN 41 H Creatinine 1.36 H Glucose 163 H POC Glucose (mg/dL) 182 H Hemoglobin A1c Calcium 7.5 L Phosphorus Iron TIBC Transferrin Ferritin Total Bilirubin Alkaline Phosphatase Total Protein Albumin CA 15-3 Antigen CA 125 Antigen Procalcitonin Urine Appearance Urine Protein Urine Glucose (UA) Urine Ketones Urine Blood Ur Leukocyte Esterase Urine RBC Urine WBC Urine WBC Clumps Amorphous Sediment Urine Bacteria Urine Mucus 09/27/23 09/27/23 09/27/23 06:21 08:56 11:55 WBC RBC Hgb Hct MCV MCHC Plt Count Neutrophils # Lymphocytes # ABG pH ABG pCO2 47 H ABG pO2 121 H ABG HCO3 32 H ABG Total CO2 33 H ABG O2 Saturation 98.0 H Sodium Potassium Chloride Carbon Dioxide BUN Creatinine Glucose POC Glucose (mg/dL) 174 H 216 H Hemoglobin A1c Calcium Phosphorus Iron TIBC Transferrin Ferritin Total Bilirubin Alkaline Phosphatase Total Protein Albumin CA 15-3 Antigen CA 125 Antigen Procalcitonin Urine Appearance Urine Protein Urine Glucose (UA) Urine Ketones Urine Blood Ur Leukocyte Esterase Urine RBC Urine WBC Urine WBC Clumps Amorphous Sediment Urine Bacteria Urine Mucus 09/27/23 09/27/23 09/27/23 16:10 16:16 19:48 WBC RBC Hgb Hct MCV MCHC Plt Count Neutrophils # Lymphocytes # ABG pH 7.54 H ABG pCO2 34 L ABG pO2 ABG HCO3 29 H ABG Total CO2 30 H ABG O2 Saturation 98.5 H Sodium Potassium Chloride Carbon Dioxide BUN Creatinine Glucose POC Glucose (mg/dL) 177 H 209 H Hemoglobin A1c Calcium Phosphorus Iron TIBC Transferrin Ferritin Total Bilirubin Alkaline Phosphatase Total Protein Albumin CA 15-3 Antigen CA 125 Antigen Procalcitonin Urine Appearance Urine Protein Urine Glucose (UA) Urine Ketones Urine Blood Ur Leukocyte Esterase Urine RBC Urine WBC Urine WBC Clumps Amorphous Sediment Urine Bacteria Urine Mucus 09/28/23 09/28/23 09/28/23 00:23 05:00 06:41 WBC RBC Hgb Hct MCV MCHC Plt Count Neutrophils # Lymphocytes # ABG pH ABG pCO2 ABG pO2 ABG HCO3 ABG Total CO2 ABG O2 Saturation Sodium Potassium Chloride Carbon Dioxide BUN 38 H Creatinine 1.33 H Glucose 242 H POC Glucose (mg/dL) 246 H 285 H Hemoglobin A1c Calcium 7.9 L Phosphorus Iron TIBC Transferrin Ferritin Total Bilirubin Alkaline Phosphatase Total Protein 3.9 L Albumin 1.8 L CA 15-3 Antigen CA 125 Antigen Procalcitonin Urine Appearance Urine Protein Urine Glucose (UA) Urine Ketones Urine Blood Ur Leukocyte Esterase Urine RBC Urine WBC Urine WBC Clumps Amorphous Sediment Urine Bacteria Urine Mucus 09/28/23 09/28/23 09/28/23 06:41 08:13 11:26 WBC RBC 2.87 L Hgb 9.0 L Hct 29.2 L MCV 101.7 H MCHC 30.7 L Plt Count 148 L Neutrophils # 8.5 H Lymphocytes # 0.7 L ABG pH ABG pCO2 ABG pO2 ABG HCO3 ABG Total CO2 ABG O2 Saturation Sodium Potassium Chloride Carbon Dioxide BUN Creatinine Glucose POC Glucose (mg/dL) 262 H 255 H Hemoglobin A1c Calcium Phosphorus Iron TIBC Transferrin Ferritin Total Bilirubin Alkaline Phosphatase Total Protein Albumin CA 15-3 Antigen CA 125 Antigen Procalcitonin Urine Appearance Urine Protein Urine Glucose (UA) Urine Ketones Urine Blood Ur Leukocyte Esterase Urine RBC Urine WBC Urine WBC Clumps Amorphous Sediment Urine Bacteria Urine Mucus 09/28/23 09/28/23 09/28/23 16:28 20:16 23:45 WBC RBC Hgb Hct MCV MCHC Plt Count Neutrophils # Lymphocytes # ABG pH ABG pCO2 ABG pO2 ABG HCO3 ABG Total CO2 ABG O2 Saturation Sodium Potassium Chloride Carbon Dioxide BUN Creatinine Glucose POC Glucose (mg/dL) 190 H 186 H 226 H Hemoglobin A1c Calcium Phosphorus Iron TIBC Transferrin Ferritin Total Bilirubin Alkaline Phosphatase Total Protein Albumin CA 15-3 Antigen CA 125 Antigen Procalcitonin Urine Appearance Urine Protein Urine Glucose (UA) Urine Ketones Urine Blood Ur Leukocyte Esterase Urine RBC Urine WBC Urine WBC Clumps Amorphous Sediment Urine Bacteria Urine Mucus 09/29/23 09/29/23 09/29/23 03:21 06:17 06:17 WBC RBC 2.93 L Hgb 9.1 L Hct 30.5 L MCV 104.0 H MCHC 30.0 L Plt Count Neutrophils # Lymphocytes # 0.4 L ABG pH ABG pCO2 ABG pO2 ABG HCO3 ABG Total CO2 ABG O2 Saturation Sodium Potassium Chloride 108 H Carbon Dioxide BUN 41 H Creatinine 1.26 H Glucose 211 H POC Glucose (mg/dL) 257 H Hemoglobin A1c Calcium 7.9 L Phosphorus Iron TIBC Transferrin Ferritin Total Bilirubin Alkaline Phosphatase 37 L Total Protein 4.1 L Albumin 1.9 L CA 15-3 Antigen CA 125 Antigen Procalcitonin Urine Appearance Urine Protein Urine Glucose (UA) Urine Ketones Urine Blood Ur Leukocyte Esterase Urine RBC Urine WBC Urine WBC Clumps Amorphous Sediment Urine Bacteria Urine Mucus 09/29/23 09/29/23 09/29/23 06:17 08:23 11:57 WBC RBC Hgb Hct MCV MCHC Plt Count Neutrophils # Lymphocytes # ABG pH ABG pCO2 ABG pO2 ABG HCO3 ABG Total CO2 ABG O2 Saturation Sodium Potassium Chloride Carbon Dioxide BUN Creatinine Glucose POC Glucose (mg/dL) 172 H 186 H Hemoglobin A1c Calcium Phosphorus Iron 25 L TIBC 151 L Transferrin 108.0 L Ferritin 570.0 H Total Bilirubin Alkaline Phosphatase Total Protein Albumin CA 15-3 Antigen CA 125 Antigen Procalcitonin Urine Appearance Urine Protein Urine Glucose (UA) Urine Ketones Urine Blood Ur Leukocyte Esterase Urine RBC Urine WBC Urine WBC Clumps Amorphous Sediment Urine Bacteria Urine Mucus 09/29/23 09/29/23 09/29/23 16:05 20:52 23:59 WBC RBC Hgb Hct MCV MCHC Plt Count Neutrophils # Lymphocytes # ABG pH ABG pCO2 ABG pO2 ABG HCO3 ABG Total CO2 ABG O2 Saturation Sodium Potassium Chloride Carbon Dioxide BUN Creatinine Glucose POC Glucose (mg/dL) 241 H 285 H 303 H Hemoglobin A1c Calcium Phosphorus Iron TIBC Transferrin Ferritin Total Bilirubin Alkaline Phosphatase Total Protein Albumin CA 15-3 Antigen CA 125 Antigen Procalcitonin Urine Appearance Urine Protein Urine Glucose (UA) Urine Ketones Urine Blood Ur Leukocyte Esterase Urine RBC Urine WBC Urine WBC Clumps Amorphous Sediment Urine Bacteria Urine Mucus 09/30/23 09/30/23 09/30/23 03:25 04:50 07:10 WBC RBC Hgb Hct MCV MCHC Plt Count Neutrophils # Lymphocytes # ABG pH ABG pCO2 ABG pO2 ABG HCO3 ABG Total CO2 ABG O2 Saturation Sodium 135 L Potassium Chloride Carbon Dioxide BUN 40 H Creatinine 1.23 H Glucose 186 H POC Glucose (mg/dL) 273 H 195 H Hemoglobin A1c Calcium 7.9 L Phosphorus Iron TIBC Transferrin Ferritin Total Bilirubin Alkaline Phosphatase Total Protein Albumin CA 15-3 Antigen CA 125 Antigen Procalcitonin Urine Appearance Urine Protein Urine Glucose (UA) Urine Ketones Urine Blood Ur Leukocyte Esterase Urine RBC Urine WBC Urine WBC Clumps Amorphous Sediment Urine Bacteria Urine Mucus 09/30/23 09/30/23 09/30/23 11:10 15:28 19:57 WBC RBC Hgb Hct MCV MCHC Plt Count Neutrophils # Lymphocytes # ABG pH ABG pCO2 ABG pO2 ABG HCO3 ABG Total CO2 ABG O2 Saturation Sodium Potassium Chloride Carbon Dioxide BUN Creatinine Glucose POC Glucose (mg/dL) 192 H 245 H 263 H Hemoglobin A1c Calcium Phosphorus Iron TIBC Transferrin Ferritin Total Bilirubin Alkaline Phosphatase Total Protein Albumin CA 15-3 Antigen CA 125 Antigen Procalcitonin Urine Appearance Urine Protein Urine Glucose (UA) Urine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
[2023-10-02 03:37] LABS: Glucose,Whole Blood 124 mg/dL (70-110)
[2023-10-02 07:01] LABS: ALT 10 U/L (4-34); AST 18 U/L (14-36); African American GFR (CKD) 44 (>60 ml/min/1.73 sqM); Albumin 1.9 g/dL (3.5-5.0); Alkaline Phosphatase 52 U/L (38-126); Anion Gap 1 mmol/L; Blood Urea Nitrogen 38 mg/dL (7-17); Calcium 8.1 mg/dL (8.4-10.2); Carbon Dioxide 26 mmol/L (22-30); Chloride 105 mmol/L (98-107); Glucose 109 mg/dL (74-99); Magnesium 1.9 mg/dL (1.6-2.3); Non-African American GFR(CKD) 38 (>60 ml/min/1.73 sqM); Phosphorus 3.3 mg/dL (2.5-4.5); Sodium 132 mmol/L (137-145); Total Bilirubin 0.6 mg/dL (0.2-1.3); Total Protein 4.1 g/dL (6.3-8.2)
[2023-10-02 08:53] LABS: Glucose,Whole Blood 104 mg/dL (70-110)
--- NOTE | 2023-10-02 09:22 | US ---
EXAMINATION TYPE: US carotid duplex BILAT DATE OF EXAM: 10/02/2023 COMPARISON: NONE CLINICAL INDICATION: Female, 78 years old with history of CVA; CVA TECHNIQUE: Carotid duplex ultrasound examination. Indirect Doppler criteria was utilized. 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 Minimal plaque bilateral bifurcations. Tortuous bilateral ICA's. No evidence of significant stenosis as visualized IMPRESSION: Exam limitations as above. No evident hemodynamically significant ICA stenosis on either side. Criteria for Assigning % of Stenosis / Diameter reduction (Estimation based on the indirect measurements of the internal carotid artery velocities (ICA PSV). 1. Normal (no stenosis)=ICA PSV < 125 cm/s: ratio < 2.0: ICA EDV<40 cm/s. 2. Less than 50% stenosis=ICA PSV < 125 cm/s: ratio < 2.0: ICA EDV<40 cm/s. 3. 50 to 69% stenosis=ICA PSV of 125 to 230 cm/s: ration 2.0 ? 4.0: ICA EDV 40-100 cm/s. 4. Greater than 70% stenosis to near occlusion= ICA PSV > 230 cm/s: ratio > 4.0: ICA EDV > 100 cm/s. 5. Near occlusion= ICA PSV velocities may be low or undetectable: variable ratio and ICA EDV. 6. Total occlusion=unable to detect flow.
--- NOTE | 2023-10-02 09:23 | P.PN ---
Subjective Progress Note Date: 10/02/23 Principal diagnosis: Permanent atrial fibrillation The patient is a pleasant 78-year-old female patient with a past medical history significant for permanent atrial fibrillation not on anticoagulation because of history of vagina bleeding as well as multiple comorbid conditions including valvular heart disease and mild cardiomyopathy who was admitted to the hospital with abdominal discomfort and she was diagnosed with bowel obstruction and she underwent laparoscopic decompression. Currently the patient is intubated she is on mechanical ventilation. September 27, 2023 The patient was seen and evaluated this morning. She continues to be intubated on mechanical ventilation. She continues to be in atrial fibrillation which is permanent with overall controlled heart rate on the current dose of Cardizem. She is not on anticoagulation because of history of vaginal bleeding. The examination reveals irregular rhythm with a soft systolic murmur and diminished breathing sounds bilaterally and mild bilateral lower extremities edema September 28, 2023 The patient was seen and evaluated this morning. She continues to be in atrial fibrillation with overall controlled heart rate on the current dose of Cardizem IV which I am going to wean and start her on metoprolol to tartrate if she is able to swallow otherwise we have to keep her on Cardizem IV. Beside that she is not a candidate for anticoagulation because of history of bleeding. She was extubated yesterday. Hemodynamically she is stable and she is not on any vasopressors at this point. Examination revealed irregular rhythm with a systolic murmur and diminished breathing sounds bilaterally and no edema was not ed September 29, 2023 The patient was seen and evaluated this morning. She remains stable with atrial fibrillation with overall controlled heart rate on the current dose of Cardizem IV. Metoprolol orally is and but she cannot take any oral medication at this point. She cannot be on any oral anticoagulation because of history of vaginal bleeding. The chest x-ray was reviewed and remained stable. The physical examination reveals irregular rhythm with clear breathing sounds bilaterally and no edema was noted. September 30, 2023 The patient was seen and evaluated this morning. She continues to be in atrial fibrillation which is permanent with overall controlled heart rate but she still on small dose of Cardizem IV. I am going to increase the dose of metoprolol from 25 mg p.o. twice daily to 50 mg p.o. twice daily. Try to wean her from Cardizem IV. Otherwise she is stable and not on any vasopressors. The examination revealed irregular rhythm with diminished breathing sounds bilaterally and mild bilateral lower extremities edema. October 02, 2023 The patient was seen and evaluated. Currently she is not on Cardizem IV anymore. She is on metoprolol tartrate is 50 mg p.o. 3 times daily and she continues to be in atrial fibrillation with controlled heart rate. She is not on any oral anticoagulation because of history of vaginal bleeding. From the cardiovascular standpoint of view, I would continue the current medical regimen. No need for any intervention at this point. The examination revealed irregular rhythm with a soft systolic murmur and clear breathing sounds bilaterally and no edema was noted in the lower extremities Assessment Acute hypoxic respiratory failure. That has resolved Status post bowel obstruction surgery Atrial fibrillation with controlled heart rate Valvular heart disease Multiple comorbid conditions Plan Continue the current medical regimen Follow-up with the patient Objective - Vital Signs Vital signs: Vital Signs Temp 98 F 10/01/23 20:00 Pulse 94 10/02/23 03:55 Resp 16 10/02/23 03:55 BP 113/72 10/02/23 03:55 Pulse Ox 98 10/02/23 03:55 FiO2 35 09/27/23 15:08 Intake & Output 10/01/23 10/02/23 10/02/23 18:59 06:59 18:59 Intake Total 409.791 10 Output Total 900 600 Balance -490.209 -590 Weight 89.6 kg 91.5 kg Intake: IV 20 10 Invasive Line 8 20 10 Intake, IV Titration 35.791 Amount Diltiazem 125 mg In 35.791 Sodium Chloride 0.9% 100 ml @ Per Protocol IV .Q0M ON LICENSE OF [facility] Rx#:[id number] Oral 354 Output: Urine 900 600 Other: Voiding Method Indwelling Catheter Indwelling Catheter # Bowel Movements 0 1 - Labs CBC & Chem 7: 09/29/23 06:17 10/02/23 05:45 Labs: Abnormal Lab Results - Last 24 Hours (Table) 10/01/23 10/01/23 10/01/23 Range/Units 09:14 11:28 11:41 Sodium 133 L (137-145) mmol/L BUN 40 H (7-17) mg/dL Creatinine 1.37 H (0.52-1.04) mg/dL Glucose 175 H (74-99) mg/dL POC Glucose (mg/dL) 235 H 212 H (70-110) mg/dL Calcium 8.3 L (8.4-10.2) mg/dL Total Protein (6.3-8.2) g/dL Albumin (3.5-5.0) g/dL 10/01/23 10/01/23 10/01/23 Range/Units 15:51 20:44 23:30 Sodium (137-145) mmol/L BUN (7-17) mg/dL Creatinine (0.52-1.04) mg/dL Glucose (74-99) mg/dL POC Glucose (mg/dL) 211 H 208 H 137 H (70-110) mg/dL Calcium (8.4-10.2) mg/dL Total Protein (6.3-8.2) g/dL Albumin (3.5-5.0) g/dL 10/02/23 10/02/23 Range/Units 03:35 05:45 Sodium 132 L (137-145) mmol/L BUN 38 H (7-17) mg/dL Creatinine 1.33 H (0.52-1.04) mg/dL Glucose 109 H (74-99) mg/dL POC Glucose (mg/dL) 124 H (70-110) mg/dL Calcium 8.1 L (8.4-10.2) mg/dL Total Protein 4.1 L (6.3-8.2) g/dL Albumin 1.9 L (3.5-5.0) g/dL
[2023-10-02] MEDS: FOLIC ACID 1 MG TAB PO SCH (10:16)
[2023-10-02] MEDS: LORazepam 0.5 MG TAB PO ONE (10:41)
--- NOTE | 2023-10-02 11:09 | P.PN ---
Subjective patient is seen for follow-up for acute kidney injury. Good urine output. serum creatinine staying around 1.2 -1.3. patient remains comfortable and maintained on 2 L nasal cannula. off of Cardizem drip. Objective - Vital Signs Vital signs: Vital Signs Temp 98 F 10/01/23 20:00 Pulse 94 10/02/23 03:55 Resp 16 10/02/23 03:55 BP 113/72 10/02/23 03:55 Pulse Ox 98 10/02/23 03:55 FiO2 35 09/27/23 15:08 Intake & Output 10/01/23 10/02/23 10/02/23 18:59 06:59 18:59 Intake Total 409.791 10 236 Output Total 900 600 625 Balance -490.209 -590 -389 Weight 89.6 kg 91.5 kg Intake: IV 20 10 Invasive Line 8 20 10 Intake, IV Titration 35.791 Amount Diltiazem 125 mg In 35.791 Sodium Chloride 0.9% 100 ml @ Per Protocol IV .Q0M [facility] Rx#:[id number] Oral 354 236 Output: Urine 900 600 625 Other: Voiding Method Indwelling Catheter Indwelling Catheter # Bowel Movements 0 1 - Exam patient is awake and comfortable Examination of the heart S1 and S2 Examination of the lungs bilateral breath sounds are heard Abdomen is soft examination of lower extremities shows edema 1+ bilaterally 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 NEWS DIRECTOR exam is grossly intact - Labs CBC & Chem 7: 09/29/23 06:17 10/02/23 05:45 Labs: Abnormal Lab Results - Last 24 Hours (Table) 10/01/23 10/01/23 10/01/23 Range/Units 09:14 11:28 11:41 Sodium 133 L (137-145) mmol/L BUN 40 H (7-17) mg/dL Creatinine 1.37 H (0.52-1.04) mg/dL Glucose 175 H (74-99) mg/dL POC Glucose (mg/dL) 235 H 212 H (70-110) mg/dL Calcium 8.3 L (8.4-10.2) mg/dL Total Protein (6.3-8.2) g/dL Albumin (3.5-5.0) g/dL 10/01/23 10/01/23 10/01/23 Range/Units 15:51 20:44 23:30 Sodium (137-145) mmol/L BUN (7-17) mg/dL Creatinine (0.52-1.04) mg/dL Glucose (74-99) mg/dL POC Glucose (mg/dL) 211 H 208 H 137 H (70-110) mg/dL Calcium (8.4-10.2) mg/dL Total Protein (6.3-8.2) g/dL Albumin (3.5-5.0) g/dL 10/02/23 10/02/23 Range/Units 03:35 05:45 Sodium 132 L (137-145) mmol/L BUN 38 H (7-17) mg/dL Creatinine 1.33 H (0.52-1.04) mg/dL Glucose 109 H (74-99) mg/dL POC Glucose (mg/dL) 124 H (70-110) mg/dL Calcium 8.1 L (8.4-10.2) mg/dL Total Protein 4.1 L (6.3-8.2) g/dL Albumin 1.9 L (3.5-5.0) g/dL Assessment and Plan Assessment: 1. Acute kidney injury secondary to vasomotor nephropathy from poor intake. Creatinine peaked at 1.76 this admission and is improved to 1.2-1.3. CT scan showed right-sided hydronephrosis. Patient has a right ureteral stent. Urology following. 2. Chronic kidney disease stage IIIb with baseline creatinine 1.5 secondary to nephrosclerosis. 3. Small bowel obstruction being followed by surgery. Status post laparoscopic decompressive enterostomy with closure of small bowel and proximal ileum September 24, 2023. 4. Hypernatremia from lack of oral water intake. Improved. 5. Hypokalemia from poor intake and intracellular shifting from IV bicarb. 6. A-fib with RVR , status post Cardizem drip. Cardiology following. 7. Metabolic acidosis secondary to acute kidney injury and IV fluids. Status post bicarb drip. Improved. 8. Hypophosphatemia from poor intake. Plan: continue off of IV fluids.
[2023-10-02 11:40] LABS: Glucose,Whole Blood 161 mg/dL (70-110)
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
[2023-10-02] MEDS: CLOPIDOGREL 75 MG TAB PO SCH (16:36)
[2023-10-02 16:46] LABS: Glucose,Whole Blood 217 mg/dL (70-110)
[2023-10-02] MEDS: INSULIN ASPART (NovoLOG) 100 UNIT/ML VIAL SQ SCH (16:49)
[2023-10-02 17:30] LABS: Chol/HDL Ratio 4.13 Ratio; LDL Cholesterol,Calculated 57.6 mg/dL (0.0-131.0); VLDL Calculation 18.16 mg/dL (5.00-40.00)
--- NOTE | 2023-10-02 19:50 | P.PN ---
Subjective Progress Note Date: 10/02/23 Principal diagnosis: Reason for follow-up is peritonitis Patient is a 78-year-old female with a past medical history significant for CVA TIA hyperlipidemia [place] atrial fibrillation, endometrial cancer presenting to the hospital for nausea vomiting abdominal pain patient has been evaluated by surgery taken to the OR on 09/24/2023 status post laparoscopic decompressive enterostomy with closure small bowel as well as small bowel external bypass proximal to mid ileum, abdominal culture positive for Klebsiella and E. coli Enterococcus faecalis on today's evaluation that is 10/02/2023,the patient remains to be afebrile, patient is on 2 L nasal cannula oxygen however denies any shortness of breath no chest pain did have some dry cough.Patient has been complaining of not feeling well and some abdominal discomfort no vomiting or diarrhea has been reported by the nursing staff. No CBC was done today creatinine is 1.33 sputum culture has been negative Objective - Vital Signs Vital signs: Vital Signs Temp 98 F 10/01/23 20:00 Pulse 94 10/02/23 03:55 Resp 16 10/02/23 03:55 BP 113/72 10/02/23 03:55 Pulse Ox 98 10/02/23 03:55 FiO2 35 09/27/23 15:08 Intake & Output 10/01/23 10/02/23 10/02/23 18:59 06:59 18:59 Intake Total 409.791 10 236 Output Total 900 600 625 Balance -490.209 -590 -389 Weight 89.6 kg 91.5 kg Intake: IV 20 10 Invasive Line 8 20 10 Intake, IV Titration 35.791 Amount Diltiazem 125 mg In 35.791 Sodium Chloride 0.9% 100 ml @ Per Protocol IV .Q0M [facility] Rx#:[id number] Oral 354 236 Output: Urine 900 600 625 Other: Voiding Method Indwelling Catheter Indwelling Catheter # Bowel Movements 0 1 - Exam GENERAL DESCRIPTION: An elderly female lying in bed in no distress RESPIRATORY SYSTEM: Unlabored breathing , decreased breath sounds at bases HEART: S1 S2 regular rate and rhythm , ABDOMEN: Soft , no tenderness EXTREMITIES: No edema feet Exam completed with the help of SURGICAL SERVICES MANAGER - Labs CBC & Chem 7: 09/29/23 06:17 10/02/23 05:45 Labs: Abnormal Lab Results - Last 24 Hours (Table) 10/01/23 10/01/23 10/01/23 Range/Units 15:51 20:44 23:30 Sodium (137-145) mmol/L BUN (7-17) mg/dL Creatinine (0.52-1.04) mg/dL Glucose (74-99) mg/dL POC Glucose (mg/dL) 211 H 208 H 137 H (70-110) mg/dL Calcium (8.4-10.2) mg/dL Total Protein (6.3-8.2) g/dL Albumin (3.5-5.0) g/dL 10/02/23 10/02/23 10/02/23 Range/Units 03:35 05:45 11:38 Sodium 132 L (137-145) mmol/L BUN 38 H (7-17) mg/dL Creatinine 1.33 H (0.52-1.04) mg/dL Glucose 109 H (74-99) mg/dL POC Glucose (mg/dL) 124 H 161 H (70-110) mg/dL Calcium 8.1 L (8.4-10.2) mg/dL Total Protein 4.1 L (6.3-8.2) g/dL Albumin 1.9 L (3.5-5.0) g/dL Assessment and Plan (1) Peritonitis Current Visit: Yes Status: Acute Code(s): K65.9 - PERITONITIS, UNSPECIFIED SNOMED Code(s): 88812263 Plan: 1patient presented to hospital more than 2 weeks ago for abdominal pain and this patient has been diagnosed with the small bowel obstruction patient is status post laparoscopic decompressive enterostomy with closure small bowel, proximal ileum and did have a external bypass proximal ileum terminal ileum biopsy has been positive for endometrial cancer and abdominal culture has been positive for Klebsiella E. coli Enterococcus along with anaerobes concerning for secondary peritonitis 2-patient is afebrile and the patient white count has been normal 3-patient is currently covered with the Zosyn to continue while inpatient and continue with supportive care Dictation was produced using [employer] dictation software. please excuse any grammatical, word or spelling errors. Time with Patient: Less than 30
--- NOTE | 2023-10-02 20:19 | P.PN ---
Subjective Progress Note Date: 10/02/23 [facility] COMPLAINT: Abdominal pain HISTORY OF PRESENT ILLNESS: Patient is postop day #7 status post Robotic-a ssisted da Radha Xi laparoscopic decompressive enterostomy with closure small bowel, proximal ileum and Robotic-assisted da Radha Xi laparoscopic small bowel external bypass proximal ileum to mid ileum. Pathology positive for endometrioid adenocarcinoma. Patient sitting at bedside chair. She ate 25% of her breakfast per nursing staff. no complaints of pain. Patient had BM. Afebrile. PHYSICAL EXAM: VITAL SIGNS: Reviewed GENERAL: Well-developed in no acute distress. HEENT: No sclera icterus. Extraocular movements grossly intact. Moist buccal mucosa. Head is atraumatic, normocephalic. Hears conversational speech. No nasal drainage. NECK: Supple without lymphadenopathy. CHEST: Non-labored respirations and equal bilateral excursions. CARDIOVASCULAR: Palpable 2+ radial pulses. ABDOMEN: Soft. Nondistended. Nontender. Incision sites clean dry and intact MUSCULOSKELETAL: No clubbing or cyanosis. NEUROLOGIC: Awake. Confused. Difficulty with forming words. SKIN: Well perfused. Good skin turgor. ASSESSMENT: 1. 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 Pathology positive for endometrial adenocarcinoma 2. Dementia 3. Acute hypoxic respiratory failure 4. Chronic atrial fibrillation 5. History of endometrial cancer PLAN: -Wean off TPN -Continue dysphagia chopped diet -Consult neurology regarding altered mental status and difficulty with her speech. Patient having difficulty forming words. Objective - Vital Signs Vital signs: Vital Signs Temp 98.0 F 10/02/23 20:00 Pulse 77 10/02/23 20:00 Resp 16 10/02/23 20:00 BP 133/64 10/02/23 20:00 Pulse Ox 100 10/02/23 20:00 FiO2 35 09/27/23 15:08 Intake & Output 10/02/23 10/02/23 10/03/23 06:59 18:59 06:59 Intake Total 10 554 118 Output Total 600 625 Balance -590 -71 118 Weight 91.5 kg Intake: IV 10 200 Invasive Line 8 10 Piperacillin-Tazobactam 3 200 .375 gm In Sodium Chloride 0.9% 100 ml @ 25 mls/hr IVPB Q8H [facility] Rx#: [id number] Oral 354 118 Output: Urine 600 625 Other: Voiding Method Indwelling Catheter Indwelling Catheter Indwelling Catheter # Bowel Movements 1 - Labs CBC & Chem 7: 09/29/23 06:17 10/02/23 05:45 Labs: Abnormal Lab Results - Last 24 Hours (Table) 10/01/23 10/01/23 10/02/23 Range/Units 20:44 23:30 03:35 Sodium (137-145) mmol/L BUN (7-17) mg/dL Creatinine (0.52-1.04) mg/dL Glucose (74-99) mg/dL POC Glucose (mg/dL) 208 H 137 H 124 H (70-110) mg/dL Calcium (8.4-10.2) mg/dL Total Protein (6.3-8.2) g/dL Albumin (3.5-5.0) g/dL HDL Cholesterol (40.00-60.00) mg/dL 10/02/23 10/02/23 10/02/23 Range/Units 05:45 05:45 11:38 Sodium 132 L (137-145) mmol/L BUN 38 H (7-17) mg/dL Creatinine 1.33 H (0.52-1.04) mg/dL Glucose 109 H (74-99) mg/dL POC Glucose (mg/dL) 161 H (70-110) mg/dL Calcium 8.1 L (8.4-10.2) mg/dL Total Protein 4.1 L (6.3-8.2) g/dL Albumin 1.9 L (3.5-5.0) g/dL HDL Cholesterol 24.20 L (40.00-60.00) mg/dL 10/02/23 Range/Units 16:45 Sodium (137-145) mmol/L BUN (7-17) mg/dL Creatinine (0.52-1.04) mg/dL Glucose (74-99) mg/dL POC Glucose (mg/dL) 217 H (70-110) mg/dL Calcium (8.4-10.2) mg/dL Total Protein (6.3-8.2) g/dL Albumin (3.5-5.0) g/dL HDL Cholesterol (40.00-60.00) mg/dL
[2023-10-02 20:30] LABS: Glucose,Whole Blood 200 mg/dL (70-110)
[2023-10-03 06:09] LABS: Glucose,Whole Blood 127 mg/dL (70-110)
--- NOTE | 2023-10-03 09:08 | P.PN ---
Subjective Progress Note Date: 10/03/23 Patient [place] stable she is clinically unchanged. She appears to be tolerating diet. On exam vital signs are stable. Abdomen soft. Status post small bowel bypass for bowel obstruction related to frozen pelvis. Patient will continue receive supportive care. Objective - Vital Signs Vital signs: Vital Signs Temp 98.0 F 10/02/23 20:00 Pulse 99 10/03/23 03:59 Resp 16 10/03/23 03:59 BP 118/77 10/03/23 03:59 Pulse Ox 100 10/03/23 03:59 FiO2 35 09/27/23 15:08 Intake & Output 10/02/23 10/03/23 10/03/23 18:59 06:59 18:59 Intake Total 554 358 Output Total 625 700 Balance -71 -342 Intake: IV 200 Piperacillin-Tazobactam 3 200 .375 gm In Sodium Chloride 0.9% 100 ml @ 25 mls/hr IVPB Q8H [facility] Rx#: [id number] Oral 354 358 Output: Urine 625 700 Other: Voiding Method Indwelling Catheter Indwelling Catheter - Labs CBC & Chem 7: 09/29/23 06:17 10/02/23 05:45 Labs: Abnormal Lab Results - Last 24 Hours (Table) 10/02/23 10/02/23 10/02/23 Range/Units 05:45 11:38 16:45 POC Glucose (mg/dL) 161 H 217 H (70-110) mg/dL HDL Cholesterol 24.20 L (40.00-60.00) mg/dL 10/02/23 10/03/23 Range/Units 20:28 06:07 POC Glucose (mg/dL) 200 H 127 H (70-110) mg/dL HDL Cholesterol (40.00-60.00) mg/dL
--- NOTE | 2023-10-03 10:34 | P.PN ---
Subjective Progress Note Date: 10/03/23 Principal diagnosis: Permanent atrial fibrillation The patient is a pleasant 78-year-old female patient with a past medical history significant for permanent atrial fibrillation not on anticoagulation because of history of vagina bleeding as well as multiple comorbid conditions including valvular heart disease and mild cardiomyopathy who was admitted to the hospital with abdominal discomfort and she was diagnosed with bowel obstruction and she underwent laparoscopic decompression. Currently the patient is intubated she is on mechanical ventilation. September 27, 2023 The patient was seen and evaluated this morning. She continues to be intubated on mechanical ventilation. She continues to be in atrial fibrillation which is permanent with overall controlled heart rate on the current dose of Cardizem. She is not on anticoagulation because of history of vaginal bleeding. The examination reveals irregular rhythm with a soft systolic murmur and diminished breathing sounds bilaterally and mild bilateral lower extremities edema September 28, 2023 The patient was seen and evaluated this morning. She continues to be in atrial fibrillation with overall controlled heart rate on the current dose of Cardizem IV which I am going to wean and start her on metoprolol to tartrate if she is able to swallow otherwise we have to keep her on Cardizem IV. Beside that she is not a candidate for anticoagulation because of history of bleeding. She was extubated yesterday. Hemodynamically she is stable and she is not on any vasopressors at this point. Examination revealed irregular rhythm with a systolic murmur and diminished breathing sounds bilaterally and no edema was not ed September 29, 2023 The patient was seen and evaluated this morning. She remains stable with atrial fibrillation with overall controlled heart rate on the current dose of Cardizem IV. Metoprolol orally is and but she cannot take any oral medication at this point. She cannot be on any oral anticoagulation because of history of vaginal bleeding. The chest x-ray was reviewed and remained stable. The physical examination reveals irregular rhythm with clear breathing sounds bilaterally and no edema was noted. September 30, 2023 The patient was seen and evaluated this morning. She continues to be in atrial fibrillation which is permanent with overall controlled heart rate but she still on small dose of Cardizem IV. I am going to increase the dose of metoprolol from 25 mg p.o. twice daily to 50 mg p.o. twice daily. Try to wean her from Cardizem IV. Otherwise she is stable and not on any vasopressors. The examination revealed irregular rhythm with diminished breathing sounds bilaterally and mild bilateral lower extremities edema. October 02, 2023 The patient was seen and evaluated. Currently she is not on Cardizem IV anymore. She is on metoprolol tartrate is 50 mg p.o. 3 times daily and she continues to be in atrial fibrillation with controlled heart rate. She is not on any oral anticoagulation because of history of vaginal bleeding. From the cardiovascular standpoint of view, I would continue the current medical regimen. No need for any intervention at this point. The examination revealed irregular rhythm with a soft systolic murmur and clear breathing sounds bilaterally and no edema was noted in the lower extremities October 03, 2023 The patient was seen and evaluated this morning. Apparently because she continues to have slurred speech there was a concern about a TIA/CVA which she underwent an MRI of the brain yesterday and that showed cerebellar stroke. She was started on dual antiplatelet therapy. Her speech today is slightly better. Her mentation is slightly better as well. From a cardiovascular standpoint of view she seems to be stable with controlled heart rate and she remains in atrial fibrillation. She seems to be slightly hypervolemic with bilateral rhonchi on examination and she is hypoxic as well as having bilateral lower extremities edema been ongoing to start her on oral diuretics at 20 mg Lasix daily. The examination revealed bilateral rhonchi with irregular rhythm and controlled heart rate as well as bilateral lower extremities pitting edema noted Assessment Acute hypoxic respiratory failure. That has resolved Status post bowel obstruction surgery Atrial fibrillation with controlled heart rate Valvular heart disease Mild heart failure Stroke with cerebellar infarct confirmed on the MRI of the brain Multiple comorbid conditions Plan Continue the current medical regimen including dual antiplatelet Consider evaluating the patient down the line to be started on oral anticoagulation. By history she cannot be on anticoagulation because of history of "vaginal bleeding". If she cannot be on anticoagulation she need to be evaluated as an outpatient to undergo left atrial appendage closure Start the patient on oral diuretic Follow-up with the patient Objective - Vital Signs Vital signs: Vital Signs Temp 97.6 F 10/03/23 08:30 Pulse 95 10/03/23 08:30 Resp 16 10/03/23 08:30 BP 123/63 10/03/23 08:30 Pulse Ox 100 10/03/23 08:30 FiO2 35 09/27/23 15:08 Intake & Output 04/20/24 04/21/24 04/21/24 18:59 06:59 18:59 Intake Total 554 358 118 Output Total 625 700 Balance -71 -342 118 Intake: IV 200 Piperacillin-Tazobactam 3 200 .375 gm In Sodium Chloride 0.9% 100 ml @ 25 mls/hr IVPB Q8H [facility] Rx#: [id number] Oral 354 358 118 Output: Urine 625 700 Other: Voiding Method Indwelling Catheter Indwelling Catheter Indwelling Catheter - Labs CBC & Chem 7: 09/29/23 06:17 10/02/23 05:45 Labs: Abnormal Lab Results - Last 24 Hours (Table) 10/02/23 10/02/23 10/02/23 Range/Units 05:45 11:38 16:45 POC Glucose (mg/dL) 161 H 217 H (70-110) mg/dL HDL Cholesterol 24.20 L (40.00-60.00) mg/dL 10/02/23 10/03/23 Range/Units 20:28 06:07 POC Glucose (mg/dL) 200 H 127 H (70-110) mg/dL HDL Cholesterol (40.00-60.00) mg/dL
[2023-10-03 10:53] LABS: ALT 12 U/L (4-34); AST 20 U/L (14-36); African American GFR (CKD) 41 (>60 ml/min/1.73 sqM); Alkaline Phosphatase 55 U/L (38-126); Anion Gap 2 mmol/L; Blood Urea Nitrogen 36 mg/dL (7-17); Calcium 8.1 mg/dL (8.4-10.2); Carbon Dioxide 27 mmol/L (22-30); Chloride 105 mmol/L (98-107); Glucose 145 mg/dL (74-99); Non-African American GFR(CKD) 36 (>60 ml/min/1.73 sqM); Phosphorus 3.5 mg/dL (2.5-4.5); Potassium 4.4 mmol/L (3.5-5.1); Sodium 134 mmol/L (137-145); Total Bilirubin 0.6 mg/dL (0.2-1.3); Total Protein 4.5 g/dL (6.3-8.2)
--- NOTE | 2023-10-03 11:27 | P.PN ---
Subjective patient is seen for follow-up for acute kidney injury. Good urine output. serum creatinine staying increased slightly to 1.4 today patient remains comfortable and maintained on 2 L nasal cannula. No complaints. Objective - Vital Signs Vital signs: Vital Signs Temp 97.6 F 10/03/23 08:30 Pulse 95 10/03/23 08:30 Resp 16 10/03/23 08:30 BP 123/63 10/03/23 08:30 Pulse Ox 100 10/03/23 08:30 FiO2 35 09/27/23 15:08 Intake & Output 10/02/23 10/03/23 10/03/23 18:59 06:59 18:59 Intake Total 554 358 118 Output Total 625 700 Balance -71 -342 118 Intake: IV 200 Piperacillin-Tazobactam 3 200 .375 gm In Sodium Chloride 0.9% 100 ml @ 25 mls/hr IVPB Q8H [facility] Rx#: [id number] Oral 354 358 118 Output: Urine 625 700 Other: Voiding Method Indwelling Catheter Indwelling Catheter Indwelling Catheter - Exam patient is awake and comfortable Examination of the heart S1 and S2 Examination of the lungs bilateral breath sounds are heard Abdomen is soft examination of lower extremities shows no significant edema [employer] exam is grossly intact - Labs CBC & Chem 7: 09/29/23 06:17 10/03/23 10:15 Labs: Abnormal Lab Results - Last 24 Hours (Table) 10/02/23 10/02/23 10/02/23 Range/Units 05:45 11:38 16:45 Sodium (137-145) mmol/L BUN (7-17) mg/dL Creatinine (0.52-1.04) mg/dL Glucose (74-99) mg/dL POC Glucose (mg/dL) 161 H 217 H (70-110) mg/dL Calcium (8.4-10.2) mg/dL Total Protein (6.3-8.2) g/dL Albumin (3.5-5.0) g/dL HDL Cholesterol 24.20 L (40.00-60.00) mg/dL 10/02/23 10/03/23 10/03/23 Range/Units 20:28 06:07 10:15 Sodium 134 L (137-145) mmol/L BUN 36 H (7-17) mg/dL Creatinine 1.40 H (0.52-1.04) mg/dL Glucose 145 H (74-99) mg/dL POC Glucose (mg/dL) 200 H 127 H (70-110) mg/dL Calcium 8.1 L (8.4-10.2) mg/dL Total Protein 4.5 L (6.3-8.2) g/dL Albumin 2.0 L (3.5-5.0) g/dL HDL Cholesterol (40.00-60.00) mg/dL Assessment and Plan Assessment: 1. Acute kidney injury secondary to vasomotor nephropathy from poor intake. Creatinine peaked at 1.76 this admission and is improved to 1.2-1.3. Today it is up to 1.4. CT scan showed right-sided hydronephrosis. Patient has a right ureteral stent. Urology following. 2. Chronic kidney disease stage IIIb with baseline creatinine 1.5 secondary to nephrosclerosis. 3. Small bowel obstruction being followed by surgery. Status post laparoscopic decompressive enterostomy with closure of small bowel and proximal ileum September 24, 2023. 4. Hypernatremia from lack of oral water intake. Improved. 5. Hypokalemia from poor intake and intracellular shifting from IV bicarb. 6. A-fib with RVR , status post Cardizem drip. Cardiology following. 7. Metabolic acidosis secondary to acute kidney injury and IV fluids. Status post bicarb drip. Improved. 8. Hypophosphatemia from poor intake. Plan: Add gentle IV hydration Continue to encourage increase oral intake.
[2023-10-03 11:56] LABS: Glucose,Whole Blood 148 mg/dL (70-110)
[2023-10-03] MEDS: SODIUM CHLORIDE 0.9% 1,000 ML IV SCH (12:14)
[2023-10-03] MEDS: LIDOCAINE 4% PATCH TOPICAL SCH (12:15)
[2023-10-03] MEDS: FUROSEMIDE 20 MG TAB PO SCH (12:15)
[2023-10-03] MEDS ORDERED: HYDROcodone/APAP 5-325MG 1 EACH TAB PO PRN (12:42)
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
--- NOTE | 2023-10-03 14:02 | P.PN ---
Subjective Progress Note Date: 10/02/23 Principal diagnosis: Altered mental status, difficulty with speech The patient is seen in neurologic follow-up on October 02, 2023, in cross coverage for Dr. Baeza, in collaboration with Hafsa Rivers, via teleneurology. History is obtained from the nurse who is present at the bedside at the time of the evaluation. Apparently the patient is no longer speaking. The nurse was able to get her to give a short, single word answers, however yesterday, the patient was able to speak a tiny bit more. The nurses report that she has not heard a complete sentence from the patient. The patient was able to eat with assistance from her family today. Because of concerns regarding mental status and lack of speech, MRI of the brain was performed. MRI reveals an acute ischemic left cerebellar hemispheric infarction. The patient does reportedly have a history of atrial fibrillation and is not on anticoagulation, because of bleeding risks in the past. Original CT scan of the brain upon admission revealed several remote infarcts in the patient was thought to carry diagnosis of vascular dementia. The patient originally was admitted with abdominal pain and found to have a sma ll bowel obstruction. Objective - Vital Signs Vital signs: Vital Signs Temp 98 F 10/01/23 20:00 Pulse 94 10/02/23 03:55 Resp 16 10/02/23 03:55 BP 113/72 10/02/23 03:55 Pulse Ox 98 10/02/23 03:55 FiO2 35 09/27/23 15:08 Intake & Output 10/01/23 10/02/23 10/02/23 18:59 06:59 18:59 Intake Total 409.791 10 236 Output Total 900 600 625 Balance -490.209 -590 -389 Weight 89.6 kg 91.5 kg Intake: IV 20 10 Invasive Line 8 20 10 Intake, IV Titration 35.791 Amount Diltiazem 125 mg In 35.791 Sodium Chloride 0.9% 100 ml @ Per Protocol IV .Q0M [facility] Rx#:[id number] Oral 354 236 Output: Urine 900 600 625 Other: Voiding Method Indwelling Catheter Indwelling Catheter # Bowel Movements 0 1 - Exam General: The patient is reclining in the bed. She is cachectic. HEENT: Head is atraumatic, normocephalic. Fundus not visualized. There is no scleral icterus. Mucous membranes are moist. Neck: Without carotid bruits Heart: Regular rate and rhythm Extremities: Without edema Neurological examination Mental status: The patient is sleepy and difficult to keep aroused. The patient is able to state her first and last name. She does not tell me her birthday or date of . She is not oriented to location. She is able to follow some simple commands however requires encouragement. The patient is able to repeat "mama". She does not repeat any other words. She closes her eyes and does not attempt. Cranial nerves: 2-12 grossly intact Coordination: Muzfak-qn-[id number] testing is intact. There is no dysmetria or ataxia. - Labs CBC & Chem 7: 09/29/23 06:17 10/03/23 10:15 Labs: Abnormal Lab Results - Last 24 Hours (Table) 10/01/23 10/01/23 10/01/23 Range/Units 15:51 20:44 23:30 Sodium (137-145) mmol/L BUN (7-17) mg/dL Creatinine (0.52-1.04) mg/dL Glucose (74-99) mg/dL POC Glucose (mg/dL) 211 H 208 H 137 H (70-110) mg/dL Calcium (8.4-10.2) mg/dL Total Protein (6.3-8.2) g/dL Albumin (3.5-5.0) g/dL 10/02/23 10/02/23 10/02/23 Range/Units 03:35 05:45 11:38 Sodium 132 L (137-145) mmol/L BUN 38 H (7-17) mg/dL Creatinine 1.33 H (0.52-1.04) mg/dL Glucose 109 H (74-99) mg/dL POC Glucose (mg/dL) 124 H 161 H (70-110) mg/dL Calcium 8.1 L (8.4-10.2) mg/dL Total Protein 4.1 L (6.3-8.2) g/dL Albumin 1.9 L (3.5-5.0) g/dL Assessment and Plan Assessment: Altered mental status, probably due to toxic metabolic encephalopathy. Reasons multifactorial as mentioned below. 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 Patient has significant cortical blindness, likely due to bilateral parieto-occipital strokes in the past. * Acute small bowel obstruction, status post lysis of adhesions and decompression enterostomy. * Peritonitis. * Atrial fibrillation * Status post respiratory failure, extubated 09/27/2023. Chest x-ray showed questionable infiltrates. * Chronic stage III kidney disease. * Chronic atrial fibrillation, currently on Cardizem drip. * CHF * History of cervical/uterine cancer and required radiation therapy in the past. * Probable vascular dementia. * History of folic acid deficiency Plan: Patient is appears significantly altered. We will check MRI of the brain with and without contrast, rule out any metastatic disease. * EEG, rule out any epileptiform activity versus encephalopathy * Carotid Doppler, rule out stenosis * Hemoglobin A1c 6.7 09/25/2023 * Lipid panel has been checked, LDL cholesterol 57.6 * 2D echo from 05/06/2023 showed impaired left ventricular systolic function with EF 45 to 50%. Mild AR. Moderate to severe MR. Mildly increased left atrial diameter. May consider NABIL. * Patient has history of atrial fibrillation, but not on anticoagulation because of history of significant vaginal bleeding (as per cardiology report). Patient currently on aspirin. * Patient currently on Zosyn. ID following. * TSH has been checked, found to be 1.82 * Social work intervention to assess home situation. * DVT prophylaxis: Patient on heparin 5000 units subcu every 12 hour. Time with Patient: Greater than 30 (40 minutes were spent caring for this patient today including, reviewing chart documentation, imaging, examining the patient, creating this note)
--- NOTE | 2023-10-03 14:09 | P.PN ---
Subjective Progress Note Date: 10/03/23 Principal diagnosis: Altered mental status, difficulty with speech The patient is seen in neurologic follow-up on October 02, 2023, in cross coverage for Dr. Baeza, in collaboration with Hafsa Rivers, via teleneurology. History is obtained from the nurse who is present at the bedside at the time of the evaluation. Apparently the patient is no longer speaking. The nurse was able to get her to give a short, single word answers, however yesterday, the patient was able to speak a tiny bit more. The nurses report that she has not heard a complete sentence from the patient. The patient was able to eat with assistance from her family today. Because of concerns regarding mental status and lack of speech, MRI of the brain was performed. MRI reveals an acute ischemic left cerebellar hemispheric infarction. The patient does reportedly have a history of atrial fibrillation and is not on anticoagulation, because of bleeding risks in the past. Original CT scan of the brain upon admission revealed several remote infarcts in the patient was thought to carry diagnosis of vascular dementia. The patient originally was admitted with abdominal pain and found to have a s mall bowel obstruction. Patient is seen in neurologic follow-up on October 03, 2023, in cross coverage for Dr. Baeza, in collaboration with Hafsa Rivers, via teleneurology. This morning, patient seems to be a little bit more interactive. She is being fed lunch, by the aide. She complains of abdominal pain. Objective - Vital Signs Vital signs: Vital Signs Temp 97.6 F 10/03/23 08:30 Pulse 95 10/03/23 08:30 Resp 16 10/03/23 08:30 BP 123/63 10/03/23 08:30 Pulse Ox 100 10/03/23 08:30 FiO2 35 09/27/23 15:08 Intake & Output 10/02/23 10/03/23 10/03/23 18:59 06:59 18:59 Intake Total 554 358 118 Output Total 625 700 Balance -71 -342 118 Intake: IV 200 Piperacillin-Tazobactam 3 200 .375 gm In Sodium Chloride 0.9% 100 ml @ 25 mls/hr IVPB Q8H [facility] Rx#: [id number] Oral 354 358 118 Output: Urine 625 700 Other: Voiding Method Indwelling Catheter Indwelling Catheter Indwelling Catheter - Exam General: The patient is seated in the bed. She is cachectic. HEENT: Head is atraumatic, normocephalic. Fundus not visualized. There is no scleral icterus. Mucous membranes are moist. There are constant chewing motions. Neck: Without carotid bruits Heart: Regular rate and rhythm Extremities: Without edema Neurological examination Mental status: The patient is awake and alert. The patient is able to state her first and last name. She she is able to state her date of . She is not oriented to location. The patient's most frequent response is "I do not know and I do not care". She is able to follow some simple commands however requires encouragement. Cranial nerves: 2-12 grossly intact Coordination: Tgyyoh-[id number]-[id number] testing is intact. There is no dysmetria or ataxia. Motor: Patient is able to wiggle the toes of both feet - Labs CBC & Chem 7: 09/29/23 06:17 10/03/23 10:15 Labs: Abnormal Lab Results - Last 24 Hours (Table) 10/02/23 10/02/23 10/02/23 Range/Units 05:45 11:38 16:45 Sodium (137-145) mmol/L BUN (7-17) mg/dL Creatinine (0.52-1.04) mg/dL Glucose (74-99) mg/dL POC Glucose (mg/dL) 161 H 217 H (70-110) mg/dL Calcium (8.4-10.2) mg/dL Total Protein (6.3-8.2) g/dL Albumin (3.5-5.0) g/dL HDL Cholesterol 24.20 L (40.00-60.00) mg/dL 10/02/23 10/03/23 10/03/23 Range/Units 20:28 06:07 10:15 Sodium 134 L (137-145) mmol/L BUN 36 H (7-17) mg/dL Creatinine 1.40 H (0.52-1.04) mg/dL Glucose 145 H (74-99) mg/dL POC Glucose (mg/dL) 200 H 127 H (70-110) mg/dL Calcium 8.1 L (8.4-10.2) mg/dL Total Protein 4.5 L (6.3-8.2) g/dL Albumin 2.0 L (3.5-5.0) g/dL HDL Cholesterol (40.00-60.00) mg/dL Assessment and Plan Assessment: Altered mental status, probably due to toxic metabolic encephalopathy. Reasons multifactorial as mentioned below. The patient is slightly more alert today. 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 Patient has significant cortical blindness, likely due to bilateral parieto-occipital strokes in the past. * Acute small bowel obstruction, status post lysis of adhesions and decompression enterostomy. * Peritonitis. * Atrial fibrillation * Status post respiratory failure, extubated 09/27/2023. Chest x-ray showed questionable infiltrates. * Chronic stage III kidney disease. * Chronic atrial fibrillation, currently on Cardizem drip. * CHF * History of cervical/uterine cancer and required radiation therapy in the past. * Probable vascular dementia. * History of folic acid deficiency Plan: Patient is appears significantly altered. * EEG, rule out any epileptiform activity versus encephalopathy * Continue supportive care at this time * Social work intervention to assess home situation. * DVT prophylaxis: Patient on heparin 5000 units subcu every [address] Ousmane Reid will assume neurologic coverage of this patient as of October 04, 2023 Time with Patient: Greater than 30 (35 minutes were spent caring for this patient today)
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
[2023-10-03 16:28] LABS: Glucose,Whole Blood 204 mg/dL (70-110)
[2023-10-03 20:20] LABS: Glucose,Whole Blood 182 mg/dL (70-110)
[2023-10-04 06:37] LABS: Glucose,Whole Blood 175 mg/dL (70-110)
[2023-10-04 09:35] LABS: Basophils % (A) 0 %; Eosinophils # (A) 0.1 k/uL (0-0.7); Eosinophils % (A) 2 %; HCT 29.5 % (34.0-46.0); HGB 9.1 gm/dL (11.4-16.0); Hypochromasia Moderate; Lymphocytes # (A) 0.4 k/uL (1.0-4.8); Lymphocytes % (A) 8 %; MCH 31.1 pg (25.0-35.0); MCHC 30.9 g/dL (31.0-37.0); MCV 100.5 fL (80.0-100.0); Macrocytosis Slight; Mean Platelet Volume 8.6; Monocytes # (A) 0.3 k/uL (0-1.0); Monocytes % (A) 5 %; Neutrophils # (A) 4.7 k/uL (1.3-7.7); Neutrophils % (A) 83 %; Platelet Count 217 k/uL (150-450); RBC 2.93 m/uL (3.80-5.40); RDW 14.9 % (11.5-15.5); WBC 5.6 k/uL (3.8-10.6)
[2023-10-04 09:45] LABS: ALT 13 U/L (4-34); AST 24 U/L (14-36); African American GFR (CKD) 41 (>60 ml/min/1.73 sqM); Albumin 2.3 g/dL (3.5-5.0); Alkaline Phosphatase 66 U/L (38-126); Anion Gap 1 mmol/L; Blood Urea Nitrogen 33 mg/dL (7-17); Calcium 8.3 mg/dL (8.4-10.2); Carbon Dioxide 27 mmol/L (22-30); Chloride 105 mmol/L (98-107); Glucose 188 mg/dL (74-99); Non-African American GFR(CKD) 36 (>60 ml/min/1.73 sqM); Sodium 133 mmol/L (137-145); Total Bilirubin 0.7 mg/dL (0.2-1.3); Total Protein 4.9 g/dL (6.3-8.2)
[2023-10-04 09:57] LABS: Magnesium 1.9 mg/dL (1.6-2.3); Phosphorus 3.3 mg/dL (2.5-4.5)
--- NOTE | 2023-10-04 09:59 | P.PN ---
Subjective Patient is seen in follow-up for acute kidney injury on chronic kidney disease. Renal function stable. Nonoliguric. Underwent abdominal pain laparoscopic decompressive enterostomy with closure of small bowel September 24, 2023. Tolerating oral intake. Vital signs are stable. General: No acute distress. HEENT: On nasal cannula. LUNGS: No audible rhonchi or wheezes. HEART: Rate and Rhythm are regular. ABDOMEN: Nontender. EXTREMITITES: No edema. Objective - Vital Signs Vital signs: Vital Signs Temp 98.5 F 10/04/23 08:08 Pulse 70 10/04/23 08:08 Resp 16 10/04/23 08:08 BP 133/75 10/04/23 08:08 Pulse Ox 99 10/04/23 08:08 FiO2 35 09/27/23 15:08 Intake & Output 10/03/23 10/04/23 10/04/23 18:59 06:59 18:59 Intake Total 236 0 600 Output Total 525 1300 Balance -289 -1300 600 Intake: Oral 236 0 600 Output: Urine 525 1300 Other: Voiding Method Indwelling Catheter Indwelling Catheter Indwelling Catheter # Bowel Movements 1 2 - Labs CBC & Chem 7: 10/04/23 08:02 10/04/23 08:02 Labs: Abnormal Lab Results - Last 24 Hours (Table) 10/03/23 10/03/23 10/03/23 Range/Units 10:15 11:51 16:26 RBC (3.80-5.40) m/uL Hgb (11.4-16.0) gm/dL Hct (34.0-46.0) % MCV (80.0-100.0) fL MCHC (31.0-37.0) g/dL Lymphocytes # (1.0-4.8) k/uL Sodium 134 L (137-145) mmol/L BUN 36 H (7-17) mg/dL Creatinine 1.40 H (0.52-1.04) mg/dL Glucose 145 H (74-99) mg/dL POC Glucose (mg/dL) 148 H 204 H (70-110) mg/dL Calcium 8.1 L (8.4-10.2) mg/dL Total Protein 4.5 L (6.3-8.2) g/dL Albumin 2.0 L (3.5-5.0) g/dL 10/03/23 10/04/23 10/04/23 Range/Units 20:17 06:33 08:02 RBC 2.93 L (3.80-5.40) m/uL Hgb 9.1 L (11.4-16.0) gm/dL Hct 29.5 L (34.0-46.0) % MCV 100.5 H (80.0-100.0) fL MCHC 30.9 L (31.0-37.0) g/dL Lymphocytes # 0.4 L (1.0-4.8) k/uL Sodium (137-145) mmol/L BUN (7-17) mg/dL Creatinine (0.52-1.04) mg/dL Glucose (74-99) mg/dL POC Glucose (mg/dL) 182 H 175 H (70-110) mg/dL Calcium (8.4-10.2) mg/dL Total Protein (6.3-8.2) g/dL Albumin (3.5-5.0) g/dL 10/04/23 Range/Units 08:02 RBC (3.80-5.40) m/uL Hgb (11.4-16.0) gm/dL Hct (34.0-46.0) % MCV (80.0-100.0) fL MCHC (31.0-37.0) g/dL Lymphocytes # (1.0-4.8) k/uL Sodium 133 L (137-145) mmol/L BUN 33 H (7-17) mg/dL Creatinine 1.40 H (0.52-1.04) mg/dL Glucose 188 H (74-99) mg/dL POC Glucose (mg/dL) (70-110) mg/dL Calcium 8.3 L (8.4-10.2) mg/dL Total Protein 4.9 L (6.3-8.2) g/dL Albumin 2.3 L (3.5-5.0) g/dL Assessment and Plan Plan: Assessment: 1. Acute kidney injury secondary to vasomotor nephropathy from poor intake. Creatinine peaked at 1.76 this admission and stable at 1.[address] scan showed right-sided hydronephrosis. Patient has a right ureteral stent. Urology following. 2. Chronic kidney disease stage IIIb with baseline creatinine 1.5 secondary to nephrosclerosis. 3. Small bowel obstruction being followed by surgery. Status post laparoscopic decompressive enterostomy with closure of small bowel and proximal ileum September 24, 2023. 4. Hypernatremia from lack of oral water intake. Resolved. 5. Hypokalemia from poor intake and intracellular shifting from IV bicarb. Resolved. 6. A-fib with RVR status post Cardizem drip. Cardiology following. On Lopressor. 7. Metabolic acidosis secondary to acute kidney injury and IV fluids. Status post bicarb drip. Improved. 8. Hypophosphatemia from poor intake. Replaced. Better. Plan: Maintain normal saline. Encouraged oral intake. Continue to monitor renal function and urine output.
--- NOTE | 2023-10-04 10:58 | P.PN ---
Subjective Progress Note Date: 10/04/23 Permanent atrial fibrillation The patient is a pleasant 78-year-old female patient with a past medical history significant for permanent atrial fibrillation not on anticoagulation because of history of vagina bleeding as well as multiple comorbid conditions including valvular heart disease and mild cardiomyopathy who was admitted to the hospital with abdominal discomfort and she was diagnosed with bowel obstruction and she underwent laparoscopic decompression. Currently the patient is intubated she is on mechanical ventilation. September 27, 2023 The patient was seen and evaluated this morning. She continues to be intubated on mechanical ventilation. She continues to be in atrial fibrillation which is permanent with overall controlled heart rate on the current dose of Cardizem. She is not on anticoagulation because of history of vaginal bleeding. The examination reveals irregular rhythm with a soft systolic murmur and diminished breathing sounds bilaterally and mild bilateral lower extremities edema September 28, 2023 The patient was seen and evaluated this morning. She continues to be in atrial fibrillation with overall controlled heart rate on the current dose of Cardizem IV which I am going to wean and start her on metoprolol to tartrate if she is able to swallow otherwise we have to keep her on Cardizem IV. Beside that she is not a candidate for anticoagulation because of history of bleeding. She was extubated yesterday. Hemodynamically she is stable and she is not on any v asopressors at this point. Examination revealed irregular rhythm with a systolic murmur and diminished breathing sounds bilaterally and no edema was noted September 29, 2023 The patient was seen and evaluated this morning. She remains stable with atrial fibrillation with overall controlled heart rate on the current dose of Cardizem IV. Metoprolol orally is and but she cannot take any oral medication at this point. She cannot be on any oral anticoagulation because of history of vaginal bleeding. The chest x-ray was reviewed and remained stable. The physical examination reveals irregular rhythm with clear breathing sounds bilaterally and no edema was noted. September 30, 2023 The patient was seen and evaluated this morning. She continues to be in atrial fibrillation which is permanent with overall controlled heart rate but she still on small dose of Cardizem IV. I am going to increase the dose of metoprolol from 25 mg p.o. twice daily to 50 mg p.o. twice daily. Try to wean her from Ca rdizem IV. Otherwise she is stable and not on any vasopressors. The examination revealed irregular rhythm with diminished breathing sounds bilaterally and mild bilateral lower extremities edema. October 02, 2023 The patient was seen and evaluated. Currently she is not on Cardizem IV anymore. She is on metoprolol tartrate is 50 mg p.o. 3 times daily and she continues to be in atrial fibrillation with controlled heart rate. She is not on any oral anticoagulation because of history of vaginal bleeding. From the cardiovascular standpoint of view, I would continue the current medical regimen. No need for any intervention at this point. The examination revealed irregular rhythm with a soft systolic murmur and clear breathing sounds bilaterally and no edema was noted in the lower extremities October 03, 2023 The patient was seen and evaluated this morning. Apparently because she continues to have slurred speech there was a concern about a TIA/CVA which she underwent an MRI of the brain yesterday and that showed cerebellar stroke. She was started on dual antiplatelet therapy. Her speech today is slightly better. Her mentation is slightly better as well. From a cardiovascular standpoint of view she seems to be stable with controlled heart rate and she remains in atrial fibrillation. She seems to be slightly hypervolemic with bilateral rhonchi on examination and she is hypoxic as well as having bilateral lower extremities edema been ongoing to start her on oral diuretics at 20 mg Lasix daily. The examination revealed bilateral rhonchi with irregular rhythm and controlled heart rate as well as bilateral lower extremities pitting edema noted 10/03 Patient is seen today in follow-up. Telemetry is atrial fibrillation with rate controlled. Blood pressure 133/75, heart rate in the 70s, pulse ox 99% on 2 L. Repeat blood work reveals hemoglobin 9.1, BUN 33 creatinine 1.4. Patient is on a oral diet. Assessment Acute hypoxic respiratory failure. That has resolved Status post bowel obstruction surgery Atrial fibrillation with controlled heart rate Valvular heart disease Mild heart failure Stroke with cerebellar infarct confirmed on the MRI of the brain Multiple comorbid conditions Plan Continue the current medical regimen including dual antiplatelet Consider evaluating the patient down the line to be started on oral anticoagulation. By history she cannot be on anticoagulation because of history of "vaginal bleeding". If she cannot be on anticoagulation she need to be evaluated as an outpatient to undergo left atrial appendage closure Continue patient on oral diuretic Cardiology will sign off this case and follow on an as-needed basis. Please reconsult for any new concerns. Patient may follow-up in the office with Dr. [place] in 2 weeks. Nurse practitioner note has been reviewed, I agree with documented findings and plan of care. Patient was seen and examined. Objective - Vital Signs Vital signs: Vital Signs Temp 98.5 F 10/04/23 08:08 Pulse 70 10/04/23 08:08 Resp 16 10/04/23 08:08 BP 133/75 10/04/23 08:08 Pulse Ox 99 10/04/23 08:08 FiO2 35 09/27/23 15:08 Intake & Output 10/03/23 10/04/23 10/04/23 18:59 06:59 18:59 Intake Total 236 0 600 Output Total 525 1300 Balance -289 -1300 600 Intake: Oral 236 0 600 Output: Urine 525 1300 Other: Voiding Method Indwelling Catheter Indwelling Catheter Indwelling Catheter # Bowel Movements 1 2 - Labs CBC & Chem 7: 10/04/23 08:02 10/04/23 08:02 Labs: Abnormal Lab Results - Last 24 Hours (Table) 10/03/23 10/03/23 10/03/23 Range/Units 10:15 11:51 16:26 RBC (3.80-5.40) m/uL Hgb (11.4-16.0) gm/dL Hct (34.0-46.0) % MCV (80.0-100.0) fL MCHC (31.0-37.0) g/dL Lymphocytes # (1.0-4.8) k/uL Sodium 134 L (137-145) mmol/L BUN 36 H (7-17) mg/dL Creatinine 1.40 H (0.52-1.04) mg/dL Glucose 145 H (74-99) mg/dL POC Glucose (mg/dL) 148 H 204 H (70-110) mg/dL Calcium 8.1 L (8.4-10.2) mg/dL Total Protein 4.5 L (6.3-8.2) g/dL Albumin 2.0 L (3.5-5.0) g/dL 10/03/23 10/04/23 10/04/23 Range/Units 20:17 06:33 08:02 RBC 2.93 L (3.80-5.40) m/uL Hgb 9.1 L (11.4-16.0) gm/dL Hct 29.5 L (34.0-46.0) % MCV 100.5 H (80.0-100.0) fL MCHC 30.9 L (31.0-37.0) g/dL Lymphocytes # 0.4 L (1.0-4.8) k/uL Sodium (137-145) mmol/L BUN (7-17) mg/dL Creatinine (0.52-1.04) mg/dL Glucose (74-99) mg/dL POC Glucose (mg/dL) 182 H 175 H (70-110) mg/dL Calcium (8.4-10.2) mg/dL Total Protein (6.3-8.2) g/dL Albumin (3.5-5.0) g/dL 10/04/23 Range/Units 08:02 RBC (3.80-5.40) m/uL Hgb (11.4-16.0) gm/dL Hct (34.0-46.0) % MCV (80.0-100.0) fL MCHC (31.0-37.0) g/dL Lymphocytes # (1.0-4.8) k/uL Sodium 133 L (137-145) mmol/L BUN 33 H (7-17) mg/dL Creatinine 1.40 H (0.52-1.04) mg/dL Glucose 188 H (74-99) mg/dL POC Glucose (mg/dL) (70-110) mg/dL Calcium 8.3 L (8.4-10.2) mg/dL Total Protein 4.9 L (6.3-8.2) g/dL Albumin 2.3 L (3.5-5.0) g/dL
[2023-10-04 11:37] LABS: Glucose,Whole Blood 403 mg/dL (70-110)
--- NOTE | 2023-10-04 12:33 | P.PN ---
Subjective Progress Note Date: 10/04/23 CHIEF COMPLAINT: Abdominal pain HISTORY OF PRESENT ILLNESS: Patient is postop day #10 status post Robotic- assisted da Radha Xi laparoscopic decompressive enterostomy with closure small bowel, proximal ileum and Robotic-assisted da Radha Xi laparoscopic small bowel external bypass proximal ileum to mid ileum. Pathology positive for endometrioid adenocarcinoma. Patient scheduled for an MBS today with speech therapy. Per nursing staff she did eat. She did have 2 bowel movements. Afebrile. WBC 5.6 hemoglobin 9.1 PHYSICAL EXAM: VITAL SIGNS: Reviewed GENERAL: Well-developed in no acute distress. HEENT: No sclera icterus. Extraocular movements grossly intact. Moist buccal mucosa. Head is atraumatic, normocephalic. Hears conversational speech. No nasal drainage. NECK: Supple without lymphadenopathy. CHEST: Non-labored respirations and equal bilateral excursions. CARDIOVASCULAR: Palpable 2+ radial pulses. ABDOMEN: Soft. Nondistended. Nontender. Incision sites clean dry and intact MUSCULOSKELETAL: No clubbing or cyanosis. NEUROLOGIC: Awake. Confused. Difficulty with forming words. SKIN: Well perfused. Good skin turgor. ASSESSMENT: 1. 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 Pathology positive for endometrial adenocarcinoma 2. Dementia 3. Acute hypoxic respiratory failure 4. Chronic atrial fibrillation 5. History of endometrial cancer 6. Acute left cerebral infarct 7. Metabolic encephalopathy PLAN: -Patient can be discharged from surgical standpoint when medically cleared -Continue dysphagia chopped diet. Patient being evaluated by speech therapy with MBS. Diet may need to be adjusted -Encourage patient to increase activity level Physician Taxonomist note has been reviewed by physician. Signing provider agrees with the documented findings, assessment, and plan of care. Objective - Vital Signs Vital signs: Vital Signs Temp 98.5 F 10/04/23 08:08 Pulse 74 10/04/23 11:26 Resp 16 10/04/23 11:26 BP 120/84 10/04/23 11:26 Pulse Ox 96 10/04/23 11:26 FiO2 35 09/27/23 15:08 Intake & Output 10/03/23 10/04/23 10/04/23 18:59 06:59 18:59 Intake Total 236 0 600 Output Total 525 1300 Balance -289 -1300 600 Intake: Oral 236 0 600 Output: Urine 525 1300 Other: Voiding Method Indwelling Catheter Indwelling Catheter Indwelling Catheter # Bowel Movements 1 2 - Labs CBC & Chem 7: 10/04/23 08:02 10/04/23 08:02 Labs: Abnormal Lab Results - Last 24 Hours (Table) 10/03/23 10/03/23 10/04/23 Range/Units 16:26 20:17 06:33 RBC (3.80-5.40) m/uL Hgb (11.4-16.0) gm/dL Hct (34.0-46.0) % MCV (80.0-100.0) fL MCHC (31.0-37.0) g/dL Lymphocytes # (1.0-4.8) k/uL Sodium (137-145) mmol/L BUN (7-17) mg/dL Creatinine (0.52-1.04) mg/dL Glucose (74-99) mg/dL POC Glucose (mg/dL) 204 H 182 H 175 H (70-110) mg/dL Calcium (8.4-10.2) mg/dL Total Protein (6.3-8.2) g/dL Albumin (3.5-5.0) g/dL 10/04/23 10/04/23 10/04/23 Range/Units 08:02 08:02 11:33 RBC 2.93 L (3.80-5.40) m/uL Hgb 9.1 L (11.4-16.0) gm/dL Hct 29.5 L (34.0-46.0) % MCV 100.5 H (80.0-100.0) fL MCHC 30.9 L (31.0-37.0) g/dL Lymphocytes # 0.4 L (1.0-4.8) k/uL Sodium 133 L (137-145) mmol/L BUN 33 H (7-17) mg/dL Creatinine 1.40 H (0.52-1.04) mg/dL Glucose 188 H (74-99) mg/dL POC Glucose (mg/dL) 403 H (70-110) mg/dL Calcium 8.3 L (8.4-10.2) mg/dL Total Protein 4.9 L (6.3-8.2) g/dL Albumin 2.3 L (3.5-5.0) g/dL
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
[2023-10-04 13:40] VITALS: BMI 29.7
[2023-10-04 16:02] LABS: % Iron Saturation 17.35 (12.00-50.00)
[2023-10-04 16:16] LABS: Glucose,Whole Blood 134 mg/dL (70-110)
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
--- NOTE | 2023-10-04 18:15 | P.PN ---
Subjective Progress Note Date: 10/04/23 I am seeing the patient for the first time during this admission. Please refer to Dr. Schofield's notes for further details. Per the nurse she states the same phrase "I don't care what time or where". It is felt her confusion is due to toxic-metabolic encephalopathy. Objective - Vital Signs Vital signs: Vital Signs Temp 98.5 F 10/04/23 08:08 Pulse 77 10/04/23 16:38 Resp 16 10/04/23 16:38 BP 122/78 10/04/23 16:38 Pulse Ox 94 L 10/04/23 16:38 FiO2 35 09/27/23 15:08 Intake & Output 10/03/23 10/04/23 10/04/23 18:59 06:59 18:59 Intake Total 236 0 960 Output Total 525 1300 850 Balance -289 -1300 110 Weight 91.5 kg Intake: Oral 236 0 960 Output: Urine 525 1300 850 Other: Voiding Method Indwelling Catheter Indwelling Catheter Indwelling Catheter # Bowel Movements 1 2 2 - Exam General: sitting up in bed and having her lunch. Neuro: Is awake but is oriented X0. She states "I don't care what time it is". Upon asking her to show thumb up she showed me two fingers. Followed one command correctly and that is wiggling her toes. No facial weakness. No dsyarthria. Motor: strength is limited. - Labs CBC & Chem 7: 10/04/23 08:02 10/04/23 08:02 Labs: Abnormal Lab Results - Last 24 Hours (Table) 10/03/23 10/04/23 10/04/23 Range/Units 20:17 06:33 08:02 RBC 2.93 L (3.80-5.40) m/uL Hgb 9.1 L (11.4-16.0) gm/dL Hct 29.5 L (34.0-46.0) % MCV 100.5 H (80.0-100.0) fL MCHC 30.9 L (31.0-37.0) g/dL Lymphocytes # 0.4 L (1.0-4.8) k/uL Sodium (137-145) mmol/L BUN (7-17) mg/dL Creatinine (0.52-1.04) mg/dL Glucose (74-99) mg/dL POC Glucose (mg/dL) 182 H 175 H (70-110) mg/dL Calcium (8.4-10.2) mg/dL Iron (50-175) UG/DL TIBC (228-460) UG/DL Transferrin (204.0-354.0) mg/dL Ferritin (10.0-322.0) ng/mL Total Protein (6.3-8.2) g/dL Albumin (3.5-5.0) g/dL 10/04/23 10/04/23 10/04/23 Range/Units 08:02 08:02 11:33 RBC (3.80-5.40) m/uL Hgb (11.4-16.0) gm/dL Hct (34.0-46.0) % MCV (80.0-100.0) fL MCHC (31.0-37.0) g/dL Lymphocytes # (1.0-4.8) k/uL Sodium 133 L (137-145) mmol/L BUN 33 H (7-17) mg/dL Creatinine 1.40 H (0.52-1.04) mg/dL Glucose 188 H (74-99) mg/dL POC Glucose (mg/dL) 403 H (70-110) mg/dL Calcium 8.3 L (8.4-10.2) mg/dL Iron 34 L (50-175) UG/DL TIBC 196 L (228-460) UG/DL Transferrin 140.0 L (204.0-354.0) mg/dL Ferritin 371.0 H (10.0-322.0) ng/mL Total Protein 4.9 L (6.3-8.2) g/dL Albumin 2.3 L (3.5-5.0) g/dL 10/04/23 Range/Units 16:14 RBC (3.80-5.40) m/uL Hgb (11.4-16.0) gm/dL Hct (34.0-46.0) % MCV (80.0-100.0) fL MCHC (31.0-37.0) g/dL Lymphocytes # (1.0-4.8) k/uL Sodium (137-145) mmol/L BUN (7-17) mg/dL Creatinine (0.52-1.04) mg/dL Glucose (74-99) mg/dL POC Glucose (mg/dL) 134 H (70-110) mg/dL Calcium (8.4-10.2) mg/dL Iron (50-175) UG/DL TIBC (228-460) UG/DL Transferrin (204.0-354.0) mg/dL Ferritin (10.0-322.0) ng/mL Total Protein (6.3-8.2) g/dL Albumin (3.5-5.0) g/dL Assessment and Plan Assessment: * Altered mental status, probably due to toxic metabolic encephalopathy. Reasons multifactorial as mentioned below. The patient is slightly more alert today. - Reported Acute left cerebellar infarct on MRI, likely however the patient's mental status changes continue to be secondary to vascular dementia and toxic metabolic encephalopathy. I reviewed MRI and yes there is small focus DWI on left cerebellar but had hard time with ADC. 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 Patient has si gnificant cortical blindness, likely due to bilateral parieto-occipital strokes in the past. * Acute small bowel obstruction, status post lysis of adhesions and decompression enterostomy. * Peritonitis. * Atrial fibrillation * Status post respiratory failure, extubated 09/27/2023. Chest x-ray showed que stionable infiltrates. * Chronic stage III kidney disease. * Chronic atrial fibrillation, currently on Cardizem drip. * CHF * History of cervical/uterine cancer and required radiation therapy in the past. * Probable vascular dementia. * History of folic acid deficiency Plan: * EEG: Preliminary is abnormal. The background slowing is suggestive of moderate encephalopathy. There is no epileptiform discharges or seizure on the EEG. * Is o ASA 81mg daily and 75mg daily. I started the patient on Lipitor 20mg qhs for secondary stroke prophylaxis. * Ordered 2D echo * Continue neuro checks * clinical research monitor * PT, OT and AUT[employer] ADMINISTRATOR are consulted * Continue supportive care at this time * Social work intervention to assess home situation. * Will defer the rest of medical management to primary and other specialist. * Recommend the patient to follow-up with neurologist as outpatient within 2 weeks. * DVT prophylaxis: Patient on heparin 5000 units subcu every 12 hour. The plan is discussed with her nurse. Time with Patient: Less than 30
[2023-10-04] MEDS: ATORVASTATIN 20 MG TAB PO SCH (19:48)
[2023-10-04 20:13] LABS: Glucose,Whole Blood 82 mg/dL (70-110)
--- NOTE | 2023-10-04 23:09 | P.PN ---
Subjective Progress Note Date: 10/03/23 Principal diagnosis: Reason for follow-up is peritonitis Patient is a 78-year-old female with a past medical history significant for CVA TIA hyperlipidemia [place] atrial fibrillation, endometrial cancer presenting to the hospital for nausea vomiting abdominal pain patient has been evaluated by surgery taken to the OR on 09/24/2023 status post laparoscopic decompressive enterostomy with closure small bowel as well as small bowel external bypass proximal to mid ileum, abdominal culture positive for Klebsiella and E. coli Enterococcus faecalis on today's evaluation that is 10/03/2023, the patient continues to be afebrile, the patient is on 2 L nasal cannula oxygen and breathing comfortably, the Pt denies having any chest pain or cough, the patient has been complaining of some abdominal pain but no vomiting or any diarrhea has been reported by the nursing staff Patient did have a creatinine 1.40 no CBC was done today Objective - Vital Signs Vital signs: Vital Signs Temp 98.5 F 10/03/23 08:08 Pulse 77 10/03/23 16:38 Resp 16 10/03/23 16:38 BP 122/78 10/03/23 16:38 Pulse Ox 94 L 10/03/23 16:38 FiO2 35 10/03/23 15:08 Intake & Output 10/02/23 10/03/23 06:59 18:59 Intake Total 0 960 Output Total 1300 850 Balance -1300 110 Weight 91.5 kg Intake: Oral 0 960 Output: Urine 1300 850 Other: Voiding Method Indwelling Catheter Indwelling Catheter # Bowel Movements 2 2 - Exam GENERAL DESCRIPTION: An elderly female lying in bed in no distress RESPIRATORY SYSTEM: Unlabored breathing , decreased breath sounds at bases HEART: S1 S2 regular rate and rhythm , ABDOMEN: Soft , no tenderness EXTREMITIES: No edema feet Exam completed with the help of SPECTACLE TRUER - Labs CBC & Chem 7: 10/04/23 08:02 10/04/23 08:02 Labs: Abnormal Lab Results - Last 24 Hours (Table) 10/04/23 10/04/23 10/04/23 Range/Units 06:33 08:02 08:02 RBC 2.93 L (3.80-5.40) m/uL Hgb 9.1 L (11.4-16.0) gm/dL Hct 29.5 L (34.0-46.0) % MCV 100.5 H (80.0-100.0) fL MCHC 30.9 L (31.0-37.0) g/dL Lymphocytes # 0.4 L (1.0-4.8) k/uL Sodium 133 L (137-145) mmol/L BUN 33 H (7-17) mg/dL Creatinine 1.40 H (0.52-1.04) mg/dL Glucose 188 H (74-99) mg/dL POC Glucose (mg/dL) 175 H (70-110) mg/dL Calcium 8.3 L (8.4-10.2) mg/dL Iron (50-175) UG/DL TIBC (228-460) UG/DL Transferrin (204.0-354.0) mg/dL Ferritin (10.0-322.0) ng/mL Total Protein 4.9 L (6.3-8.2) g/dL Albumin 2.3 L (3.5-5.0) g/dL 10/04/23 10/04/23 10/04/23 Range/Units 08:02 11:33 16:14 RBC (3.80-5.40) m/uL Hgb (11.4-16.0) gm/dL Hct (34.0-46.0) % MCV (80.0-100.0) fL MCHC (31.0-37.0) g/dL Lymphocytes # (1.0-4.8) k/uL Sodium (137-145) mmol/L BUN (7-17) mg/dL Creatinine (0.52-1.04) mg/dL Glucose (74-99) mg/dL POC Glucose (mg/dL) 403 H 134 H (70-110) mg/dL Calcium (8.4-10.2) mg/dL Iron 34 L (50-175) UG/DL TIBC 196 L (228-460) UG/DL Transferrin 140.0 L (204.0-354.0) mg/dL Ferritin 371.0 H (10.0-322.0) ng/mL Total Protein (6.3-8.2) g/dL Albumin (3.5-5.0) g/dL Assessment and Plan (1) Peritonitis Current Visit: Yes Status: Acute Code(s): K65.9 - PERITONITIS, UNSPECIFIED SNOMED Code(s): 81403644 Plan: 1patient presented to hospital more than 2 weeks ago for abdominal pain and this patient has been diagnosed with the small bowel obstruction patient is status post laparoscopic decompressive enterostomy with closure small bowel, proximal ileum and did have a external bypass proximal ileum terminal ileum biopsy has been positive for endometrial cancer and abdominal culture has been positive for Klebsiella E. coli Enterococcus along with anaerobes concerning for secondary peritonitis 2-patient is afebrile and the patient white count has been normal 3-patient currently being treated with the Zosyn to continue on inpatient transition to oral antibiotics on discharge Dictation was produced using [employer] dictation software. please excuse any grammatical, word or spelling errors. Time with Patient: Less than 30
--- NOTE | 2023-10-04 23:10 | P.PN ---
Subjective Progress Note Date: 10/04/23 Principal diagnosis: Reason for follow-up is peritonitis Patient is a 78-year-old female with a past medical history significant for CVA TIA hyperlipidemia [place] atrial fibrillation, endometrial cancer presenting to the hospital for nausea vomiting abdominal pain patient has been evaluated by surgery taken to the OR on 09/24/2023 status post laparoscopic decompressive enterostomy with closure small bowel as well as small bowel external bypass proximal to mid ileum, abdominal culture positive for Klebsiella and E. coli Enterococcus faecalis on today's evaluation that is 10/04/2023, Patient is afebrile patient is currently on 2 L nasal cannula oxygen and denies having any shortness of breath, the patient denies any chest pain or cough, the patient denies any nausea vomiting did not have any abdominal pain and no diarrhea has been reported by the nurse aide Patient did have white count of 5.6, creatinine is 1.40 Objective - Vital Signs Vital signs: Vital Signs Temp 98.5 F 10/04/23 08:08 Pulse 77 10/04/23 16:38 Resp 16 10/04/23 16:38 BP 122/78 10/04/23 16:38 Pulse Ox 94 L 10/04/23 16:38 FiO2 35 09/27/23 15:08 Intake & Output 10/04/23 10/04/23 10/05/23 06:59 18:59 06:59 Intake Total 0 960 Output Total 1300 850 Balance -1300 110 Weight 91.5 kg Intake: Oral 0 960 Output: Urine 1300 850 Other: Voiding Method Indwelling Catheter Indwelling Catheter # Bowel Movements 2 2 - Exam GENERAL DESCRIPTION: An elderly female lying in bed in no distress RESPIRATORY SYSTEM: Unlabored breathing , decreased breath sounds at bases HEART: S1 S2 regular rate and rhythm , ABDOMEN: Soft , no tenderness EXTREMITIES: No edema feet - Labs CBC & Chem 7: 10/04/23 08:02 10/04/23 08:02 Labs: Abnormal Lab Results - Last 24 Hours (Table) 10/04/23 10/04/23 10/04/23 Range/Units 06:33 08:02 08:02 RBC 2.93 L (3.80-5.40) m/uL Hgb 9.1 L (11.4-16.0) gm/dL Hct 29.5 L (34.0-46.0) % MCV 100.5 H (80.0-100.0) fL MCHC 30.9 L (31.0-37.0) g/dL Lymphocytes # 0.4 L (1.0-4.8) k/uL Sodium 133 L (137-145) mmol/L BUN 33 H (7-17) mg/dL Creatinine 1.40 H (0.52-1.04) mg/dL Glucose 188 H (74-99) mg/dL POC Glucose (mg/dL) 175 H (70-110) mg/dL Calcium 8.3 L (8.4-10.2) mg/dL Iron (50-175) UG/DL TIBC (228-460) UG/DL Transferrin (204.0-354.0) mg/dL Ferritin (10.0-322.0) ng/mL Total Protein 4.9 L (6.3-8.2) g/dL Albumin 2.3 L (3.5-5.0) g/dL 10/04/23 10/04/23 10/04/23 Range/Units 08:02 11:33 16:14 RBC (3.80-5.40) m/uL Hgb (11.4-16.0) gm/dL Hct (34.0-46.0) % MCV (80.0-100.0) fL MCHC (31.0-37.0) g/dL Lymphocytes # (1.0-4.8) k/uL Sodium (137-145) mmol/L BUN (7-17) mg/dL Creatinine (0.52-1.04) mg/dL Glucose (74-99) mg/dL POC Glucose (mg/dL) 403 H 134 H (70-110) mg/dL Calcium (8.4-10.2) mg/dL Iron 34 L (50-175) UG/DL TIBC 196 L (228-460) UG/DL Transferrin 140.0 L (204.0-354.0) mg/dL Ferritin 371.0 H (10.0-322.0) ng/mL Total Protein (6.3-8.2) g/dL Albumin (3.5-5.0) g/dL Assessment and Plan (1) Peritonitis Current Visit: Yes Status: Acute Code(s): K65.9 - PERITONITIS, UNSPECIFIED SNOMED Code(s): 98722342 Plan: 1patient presented to hospital more than 2 weeks ago for abdominal pain and this patient has been diagnosed with the small bowel obstruction patient is status post laparoscopic decompressive enterostomy with closure small bowel, proximal ileum and did have a external bypass proximal ileum terminal ileum biopsy has been positive for endometrial cancer and abdominal culture has been positive for Klebsiella E. coli Enterococcus along with anaerobes concerning for secondary peritonitis 2-patient is afebrile and the patient white count has been normal 3-patient to continue with the Zosyn while inpatient will be able to finish therapy with oral Augmentin 875 mg twice daily x 10 days on discharge Dictation was produced using [employer] dictation software. please excuse any grammatical, word or spelling errors. Time with Patient: Less than 30
--- NOTE | 2023-10-05 04:23 | EEG ---
ELECTROENCEPHALOGRAM REPORT CLINICAL HISTORY: This is a 78-year-old woman with altered mental status. The video EEG is obtained to evaluate for seizure epileptiform activity. RELEVANT MEDICATION: Morphine and [place]. EEG TYPE: This is a routine 21-channel EEG with video using the 10/20 electrode placement system. DESCRIPTION: Wakefulness and drowsiness are obtained. During awake state, the background consists of [id number] voltage of 6 to 7 hertz activity and most of the times the background consists of diffuse nonrhythmic delta activity. There is no physiological stage 2 sleep architecture. There is no focal slowing. Interictal and ictal is none. ACTIVATION PROCEDURE: Photic stimulation did not evoke a posterior driving response. There is no abnormality during the photic stimulation. Hyperventilation is not performed. CLINICAL INTERPRETATION: This is abnormal routine EEG. The background slowing is suggestive of moderate encephalopathy. There is no focal slowing, epileptiform discharge, or seizure on the EEG. Clinical correlation is recommended. CASSY / BRITTANY: [id number] / MTDD
[2023-10-05 05:52] LABS: Glucose,Whole Blood 108 mg/dL (70-110)
--- NOTE | 2023-10-05 09:19 | FL ---
Modified barium swallow. HISTORY: Dysphagia. Modified barium swallow was performed with the department of speech pathology. The patient was prese nted with various consistencies of barium. Silent aspiration noted with pudding mixture. Penetration with kayla cracker. Full report is to rell harrington from the department of speech pathology. Impression: Silent aspiration noted with pudding mixture.
[2023-10-05] MEDS: ZINC OXIDE PASTE (Z-GUARD) 1 APPLIC TOPICAL PRN (09:43)
--- NOTE | 2023-10-05 10:36 | P.PN ---
Subjective Patient is seen in follow-up for acute kidney injury on chronic kidney disease. Renal function stable. Nonoliguric. Underwent abdominal pain laparoscopic decompressive enterostomy with closure of small bowel September 24, 2023. Tolerating oral intake. Vital signs are stable. General: No acute distress. HEENT: On nasal cannula. LUNGS: No audible rhonchi or wheezes. HEART: Rate and Rhythm are regular. ABDOMEN: Nontender. EXTREMITITES: No edema. Objective - Vital Signs Vital signs: Vital Signs Temp 97.8 F 10/05/23 08:47 Pulse 95 10/05/23 08:47 Resp 18 10/05/23 08:47 BP 114/75 10/05/23 08:47 Pulse Ox 98 10/05/23 08:47 FiO2 35 09/27/23 15:08 Intake & Output 10/04/23 10/05/23 10/05/23 18:59 06:59 18:59 Intake Total 960 Output Total 850 1602 400 Balance 110 -1602 -400 Weight 91.5 kg Intake: Oral 960 Output: Urine 850 1600 400 Stool 2 Other: Voiding Method Indwelling Catheter Indwelling Catheter # Bowel Movements 2 1 - Labs CBC & Chem 7: 10/04/23 08:02 10/04/23 08:02 Labs: Abnormal Lab Results - Last 24 Hours (Table) 10/04/23 10/04/23 10/04/23 Range/Units 08:02 11:33 16:14 POC Glucose (mg/dL) 403 H 134 H (70-110) mg/dL Iron 34 L (50-175) UG/DL TIBC 196 L (228-460) UG/DL Transferrin 140.0 L (204.0-354.0) mg/dL Ferritin 371.0 H (10.0-322.0) ng/mL Assessment and Plan Plan: Assessment: 1. Acute kidney injury secondary to vasomotor nephropathy from poor intake. Creatinine peaked at 1.76 this admission and stable at 1.[address] scan showed right-sided hydronephrosis. Patient has a right ureteral stent. Urology following. 2. Chronic kidney disease stage IIIb with baseline creatinine 1.5 secondary to nephrosclerosis. 3. Small bowel obstruction being followed by surgery. Status post laparoscopic decompressive enterostomy with closure of small bowel and proximal ileum September 24, 2023. 4. Hypernatremia from lack of oral water intake. Resolved. 5. Hypokalemia from poor intake and intracellular shifting from IV bicarb. Resolved. 6. A-fib with RVR status post Cardizem drip. Cardiology following. On Lopressor. 7. Metabolic acidosis secondary to acute kidney injury and IV fluids. Status p ost bicarb drip. Improved. 8. Hypophosphatemia from poor intake. Replaced. Better. Plan: Maintain normal saline. Encouraged oral intake. Continue to monitor renal function and urine output.
[2023-10-05 10:56] LABS: African American GFR (CKD) 40 (>60 ml/min/1.73 sqM); Anion Gap 4 mmol/L; Blood Urea Nitrogen 27 mg/dL (7-17); Calcium 8.1 mg/dL (8.4-10.2); Carbon Dioxide 25 mmol/L (22-30); Chloride 107 mmol/L (98-107); Glucose 95 mg/dL (74-99); Magnesium 1.8 mg/dL (1.6-2.3); Non-African American GFR(CKD) 34 (>60 ml/min/1.73 sqM); Sodium 136 mmol/L (137-145)
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
[2023-10-05 11:39] LABS: Glucose,Whole Blood 112 mg/dL (70-110)
[2023-10-05] MEDS: SODIUM FERRIC GLUCONAT-SUCROSE 125 MG in SODIUM CHLORIDE 0.9% 100 ML IVPB SCH (12:21)
[2023-10-05 12:45] VITALS: TEMP 97.9
--- NOTE | 2023-10-05 13:03 | CA ---
Transthoracic Echo Report Name: Carli Higuera Age: 78 Gender: F : 1945 Exam Date: 10/05/2023 08:13 Exam Location: [facility] Ht (in): 69 Wt (lb): 209 Ordering Physician: Ousmane Reid MD Attending/Referring Phys: Financial Investigator Ryann Graham RCS Procedure CPT: Indications: stroke Cardiac Hx: Technical Quality: Good Contrast 1: Total Dose (mL): Contrast 2: Total Dose (mL): MEASUREMENTS (Male / Female) Normal Values 2D ECHO LV Diastolic Diameter PLAX 4.7 cm 4.2 - 5.9 / 3.9 - 5.3 cm LV Systolic Diameter PLAX 3.6 cm IVS Diastolic Thickness 0.9 cm 0.6 - 1.0 / 0.6 - 0.9 cm LVPW Diastolic Thickness 1.3 cm 0.6 - 1.0 / 0.6 - 0.9 cm LV Relative Wall Thickness 0.5 RV Internal Dim ED PLAX 2.9 cm LVOT Diameter 2.0 cm LV Diastolic Volume MOD BP 103.2 cm??? 67 - 155 / 56 - 104 cm??? LV Systolic Volume MOD BP 52.8 cm??? 22 - 58 / 19 - 49 cm??? LV Ejection Fraction MOD BP 48.8 % >= 55 % LV Cardiac Index MOD BP 2085.7 cm???/min???m??? LV Diastolic Volume MOD 4C 94.7 cm??? LV Systolic Volume MOD 4C 49.0 cm??? LV Ejection Fraction MOD 4C 48.2 % LV Cardiac Index MOD 4C 1887.7 cm???/min???m??? LV Diastolic Length 4C 6.9 cm LV Systolic Length 4C 6.2 cm LV Diastolic Volume MOD 2C 102.1 cm??? LV Systolic Volume MOD 2C 54.0 cm??? LV Ejection Fraction MOD 2C 47.1 % LV Cardiac Index MOD 2C 1989.6 cm???/min???m??? LV Diastolic Length 2C 7.6 cm LV Systolic Length 2C 6.5 cm LA Volume 123.1 cm??? 18 - 58 / 22 - 52 cm??? LA Volume Index 56.6 cm???/m??? 16 - 28 cm???/m??? DOPPLER AV Peak Velocity 168.9 cm/s AV Peak Gradient 11.4 mmHg AV Mean Velocity 124.4 cm/s AV Mean Gradient 6.7 mmHg AV Velocity Time Integral 34.4 cm LVOT Peak Velocity 103.1 cm/s LVOT Peak Gradient 4.3 mmHg LVOT Velocity Time Integral 19.9 cm LVOT Stroke Volume 61.7 cm??? LVOT Stroke Volume Index 29.3 ml/m??? LVOT Cardiac Index 2554.8 cm???/min???m??? AV Area Cont Eq vti 1.8 cm??? AV Area Cont Eq pk 1.9 cm??? MV Peak Velocity 128.6 cm/s MV Peak Gradient 6.6 mmHg MV Mean Velocity 70.9 cm/s MV Mean Gradient 2.6 mmHg MV Velocity Time Integral 19.2 cm TR Peak Velocity 309.1 cm/s TR Peak Gradient 38.2 mmHg Right Atrial Pressure 20.0 mmHg Pulmonary Artery Systolic Pressu 58.2 mmHg Right Ventricular Systolic Press 58.2 mmHg PV Peak Velocity 79.8 cm/s PV Peak Gradient 2.5 mmHg FINDINGS Left Ventricle Left ventricular ejection fraction is estimated at 50 %. Moderately increased posterior wall thickness. Mildly increased left ventricular systolic volume. Mildly decreased left ventricular ejection fraction. Right Ventricle Normal right ventricular size with mildly reduced function. Moderate to severely elevated right ventricular systolic pressure. Right Atrium Severe right atrial dilatation. Left Atrium Severely increased left atrial volume. Moderately increased left atrial area. Mitral Valve Mitral valve thickened. Mild mitral annular calcification. Prolapse of the posterior mitral valve leaflet. Trace mitral stenosis. Moderate mitral regurgitation. Aortic Valve Trileaflet aortic valve. No aortic stenosis. Mild aortic regurgitation. Tricuspid Valve Structurally normal tricuspid valve. No tricuspid stenosis. Moderate tricuspid regurgitation. Pulmonic Valve Structurally normal pulmonic valve. No pulmonic stenosis. Trace pulmonic regurgitation. Pericardium No pericardial effusion. Left pleural effusion. Aorta Normal size aortic root and proximal ascending aorta. CONCLUSIONS Ejection fraction about 50-55% Inferior wall hypokinesis 2+ MR, Enlarged left atrium Previewed by: Dr. Tristin Montana MD (Electronically Signed) Final Date: 05 October 2023 13:02
--- NOTE | 2023-10-05 13:56 | P.PN ---
Subjective Progress Note Date: 10/05/23 CHIEF COMPLAINT: Abdominal pain HISTORY OF PRESENT ILLNESS: Patient is postop day #11 status post Robotic- assisted da Radha Xi laparoscopic decompressive enterostomy with closure small bowel, proximal ileum and Robotic-assisted da Radha Xi laparoscopic small bowel external bypass proximal ileum to mid ileum. Pathology positive for endometrioid adenocarcinoma. Patient followed by speech therapy. They are initially concerned for possible aspiration. Reevaluated today with no overt signs of aspiration. Diet adjusted per speech therapy to thin liquids. Patient has been having bowel movements PHYSICAL EXAM: VITAL SIGNS: Reviewed GENERAL: Well-developed in no acute distress. HEENT: No sclera icterus. Extraocular movements grossly intact. Moist buccal mucosa. Head is atraumatic, normocephalic. Hears conversational speech. No nasal drainage. NECK: Supple without lymphadenopathy. CHEST: Non-labored respirations and equal bilateral excursions. CARDIOVASCULAR: Palpable 2+ radial pulses. ABDOMEN: Soft. Nondistended. Incision sites clean dry and intact MUSCULOSKELETAL: No clubbing or cyanosis. NEUROLOGIC: Awake. Confused. Difficulty with forming words. SKIN: Well perfused. Good skin turgor. ASSESSMENT: 1. 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 Pathology positive for endometrial adenocarcinoma 2. Dementia 3. Acute hypoxic respiratory failure 4. Chronic atrial fibrillation 5. History of endometrial cancer 6. Acute left cerebral infarct 7. Metabolic encephalopathy PLAN: -Patient can be discharged from surgical standpoint when medically cleared -Diet per speech therapy recommendations -Encourage patient to increase activity level Physician Cloth Spreader note has been reviewed by physician. Signing provider agrees with the documented findings, assessment, and plan of care. Objective - Vital Signs Vital signs: Vital Signs Temp 97.9 F 10/05/23 12:19 Pulse 84 10/05/23 12:19 Resp 18 10/05/23 12:19 BP 126/85 10/05/23 12:19 Pulse Ox 97 10/05/23 12:19 FiO2 35 09/27/23 15:08 Intake & Output 10/04/23 10/05/23 10/05/23 18:59 06:59 18:59 Intake Total 960 Output Total 850 1602 400 Balance 110 -1602 -400 Weight 91.5 kg Intake: Oral 960 Output: Urine 850 1600 400 Stool 2 Other: Voiding Method Indwelling Catheter Indwelling Catheter # Bowel Movements 2 1 - Labs CBC & Chem 7: 10/04/23 08:02 10/05/23 08:44 Labs: Abnormal Lab Results - Last 24 Hours (Table) 10/04/23 10/04/23 10/05/23 Range/Units 08:02 16:14 08:44 Sodium 136 L (137-145) mmol/L BUN 27 H (7-17) mg/dL Creatinine 1.45 H (0.52-1.04) mg/dL POC Glucose (mg/dL) 134 H (70-110) mg/dL Calcium 8.1 L (8.4-10.2) mg/dL Iron 34 L (50-175) UG/DL TIBC 196 L (228-460) UG/DL Transferrin 140.0 L (204.0-354.0) mg/dL Ferritin 371.0 H (10.0-322.0) ng/mL 10/05/23 Range/Units 11:38 Sodium (137-145) mmol/L BUN (7-17) mg/dL Creatinine (0.52-1.04) mg/dL POC Glucose (mg/dL) 112 H (70-110) mg/dL Calcium (8.4-10.2) mg/dL Iron (50-175) UG/DL TIBC (228-460) UG/DL Transferrin (204.0-354.0) mg/dL Ferritin (10.0-322.0) ng/mL
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
[2023-10-05 16:27] VITALS: BP 119/69; PULSE 107; RESP 16
[2023-10-05 16:54] LABS: Glucose,Whole Blood 185 mg/dL (70-110)
--- NOTE | 2023-10-07 23:17 | CDI ---
Documentation Clarification Form Date: 10/07/2023 11:06:57 PM From: Veronica Hernandez Phone: Admit Date: 09/16/2023 03:26:00 AM Patient Name: Carli Higuera Visit Number: [id number] Discharge Date: 10/05/2023 08:19:00 PM ATTENTION: The Clinical Documentation Specialists (CDI) and [facility] Coding Staff appreciate your assistance in clarifying documentation. Please respond to the clarification below the line at the bottom and electronically sign. The CDI & [facility] Coding staff will review the response and follow-up if needed. Please note: Queries are made part of the Legal Health Record. If you have any questions, please contact the author of this message via ITS. Dr. Biju Sanabria The final diagnosis of the pathology report states activeenteritis with erosion. Coding guidelines do not allow coding professionals to code based on pathology results; therefore, clarification is requested. History/risk factors: 78yo F, SBO d/tfrozenabdomen,endometrial adenocarcinoma Alzheimers w dementia, AHRF, permanent A Fib, Hxendometrial cancer sp radiation lost to f/u, Acute leftCVA, Tox/Met encephalopathy, severe PCM, dehydration, DMII, CKD3B, ATN, Hx GIB Clinical Indicators: Serosal fibrousadhesionswith focal activeenteritisand erosion. Negative formalignancy. Treatment: Robotic-assistedda Radha Xilaparoscopicdecompressiveenterostomy with closuresmall bowel, proximal ileum;small bowel externalbypass proximal ileum to mid ileum Please clarify if you agree with the pathology report diagnosis of activeenteritis with erosion: [ + ] Serosal fibrous adhesions with focal erosion and active enteritis and focally suggestive early ischemic change. (Template Last Revised: August 2020) MTDD
--- NOTE | 2023-10-07 23:26 | CDI ---
Documentation Clarification Form Date: 10/07/2023 11:17:00 PM From: Veronica Hernandez Phone: Admit Date: 09/16/2023 03:26:00 AM Patient Name: Carli Higuera Visit Number: [id number] Discharge Date: 10/05/2023 08:19:00 PM ATTENTION: The Clinical Documentation Specialists (CDI) and [facility] Coding Staff appreciate your assistance in clarifying documentation. Please respond to the clarification below the line at the bottom and electronically sign. The CDI & [facility] Coding staff will review the response and follow-up if needed. Please note: Queries are made part of the Legal Health Record. If you have any questions, please contact the author of this message via ITS. Dr. Biju Sanabria Your patient has diagnostic/radiology results: [insert results, date]. Please clarify if there is an additional diagnosis and/or clinical significance related to this result. History/Risk Factors: 78yo F, SBO d/t frozen abdomen, endometrial adenocarcinoma Alzheimers w dementia, AHRF, permanent A Fib, Hx endometrial cancer sp radiation lost to f/u, Acute left CVA, Tox/Met encephalopathy, severe PCM, dehydration, DMII, CKD3B, ATN, Hx GIB Clinical indicators: Glucose: 09/14 69-157 4/8 175 4 129-367 A1C: 6.7 Treatment: Insulin Aspart (Insulin Aspart (Novolog) 100 Unit/Ml Vial) 0 unit SQ ACHS KALPESH; Protocol Is/Are there an additional diagnosis (es) related to the above lab result? [ ] Diabetes Type 2 with hypoglycemia [ ] Present on Admission [ ] Not Present on Admission [ ] Diabetes Type 2 with hyperglycemia [ ] Present on Admission [ ] Not Present on Admission [ ] Result is not clinically significant (no additional diagnosis) [ ] Other, please specify [ + ] Unable to determine (Template Last Reviewed: July 2020) MTDD
--- NOTE | 2023-10-08 09:55 | CDI ---
Documentation Clarification Form Date: 10/08/2023 09:43:12 AM From: Veronica Hernandez Phone: Admit Date: 09/16/2023 03:26:00 AM Patient Name: Carli Higuera Visit Number: [id number] Discharge Date: 10/05/2023 08:19:00 PM ATTENTION: The Clinical Documentation Specialists (CDI) and [facility] Coding Staff appreciate your assistance in clarifying documentation. Please respond to the clarification below the line at the bottom and electronically sign. The CDI & [facility] Coding staff will review the response and follow-up if needed. Please note: Queries are made part of the Legal Health Record. If you have any questions, please contact the author of this message via ITS. Dr. Biju Sanabria Ischemic cardiomyopathy, per Consult Note 4/4, and NICM, per Consult Note 4/5, are documented. Additional clarification regarding the type of cardiomyopathy is requested. History/Risk Factors: 78yo F,SBOd/tfrozenabdomen,endometrial adenocarcinoma Alzheimers wdementia,AHRF,permanent A Fib, Hxendometrial cancersp radiationlost to f/u, Acute leftCVA, Tox/Met encephalopathy,severe PCM, dehydration,DMII, CKD3B,ATN, Hx GIB Clinical indicators: Radiology Reports: Pleural space: Unremarkable. Nopneumothorax. Heart:Cardiomegaly. Mediastinum: Unremarkable. Normal mediastinal contour. Echocardiogram: Ejection fraction about 50-55%. Inferior wall hypokinesis. 2+ MR, Enlargedleft atrium Treatment: monitored Please clarify the type of cardiomyopathy, if known: [ ] Nonischemic [ ] Ischemic [ ] Other, please specify [ ] Unable to determine (Template Last Revised: August 2020) MTDD
--- NOTE | 2023-10-08 16:14 | P.PN ---
Subjective Progress Note Date: 10/05/23 Principal diagnosis: Reason for follow-up is peritonitis Patient is a 78-year-old female with a past medical history significant for CVA TIA hyperlipidemia [place] atrial fibrillation, endometrial cancer presenting to the hospital for nausea vomiting abdominal pain patient has been evaluated by surgery taken to the OR on 09/24/2023 status post laparoscopic decompressive enterostomy with closure small bowel as well as small bowel external bypass proximal to mid ileum, abdominal culture positive for Klebsiella and E. coli Enterococcus faecalis on today's evaluation that is 10/05/2023, patient has been afebrile, patient is breathing comfortably and is currently on 2 L nasal cannula oxygen, patient denies having any significant cough no chest pain shortness of breath, patient denies nausea vomiting or diarrhea and no abdominal pain, no new symptoms. Patient did have a creatinine 1.45 no CBC was done today Objective - Vital Signs Vital signs: Vital Signs Temp 97.9 F 10/05/23 12:19 Pulse 84 10/05/23 12:19 Resp 18 10/05/23 12:19 BP 126/85 10/05/23 12:19 Pulse Ox 97 10/05/23 12:19 FiO2 35 09/27/23 15:08 Intake & Output 10/04/23 10/05/23 10/05/23 18:59 06:59 18:59 Intake Total 960 Output Total 850 1602 400 Balance 110 -1602 -400 Weight 91.5 kg Intake: Oral 960 Output: Urine 850 1600 400 Stool 2 Other: Voiding Method Indwelling Catheter Indwelling Catheter Indwelling Catheter # Bowel Movements 2 1 - Exam GENERAL DESCRIPTION: An elderly female lying in bed in no distress RESPIRATORY SYSTEM: Unlabored breathing , decreased breath sounds at bases HEART: S1 S2 regular rate and rhythm , ABDOMEN: Soft , no tenderness EXTREMITIES: No edema feet - Labs CBC & Chem 7: 10/04/23 08:02 10/05/23 08:44 Labs: Abnormal Lab Results - Last 24 Hours (Table) 10/04/23 10/04/23 10/05/23 Range/Units 08:02 16:14 08:44 Sodium 136 L (137-145) mmol/L BUN 27 H (7-17) mg/dL Creatinine 1.45 H (0.52-1.04) mg/dL POC Glucose (mg/dL) 134 H (70-110) mg/dL Calcium 8.1 L (8.4-10.2) mg/dL Iron 34 L (50-175) UG/DL TIBC 196 L (228-460) UG/DL Transferrin 140.0 L (204.0-354.0) mg/dL Ferritin 371.0 H (10.0-322.0) ng/mL 10/05/23 Range/Units 11:38 Sodium (137-145) mmol/L BUN (7-17) mg/dL Creatinine (0.52-1.04) mg/dL POC Glucose (mg/dL) 112 H (70-110) mg/dL Calcium (8.4-10.2) mg/dL Iron (50-175) UG/DL TIBC (228-460) UG/DL Transferrin (204.0-354.0) mg/dL Ferritin (10.0-322.0) ng/mL Assessment and Plan (1) Peritonitis Status: Acute Code(s): K65.9 - PERITONITIS, UNSPECIFIED SNOMED Code(s): 45957370 Plan: 1patient presented to hospital more than 2 weeks ago for abdominal pain and this patient has been diagnosed with the small bowel obstruction patient is status post laparoscopic decompressive enterostomy with closure small bowel, proximal ileum and did have a external bypass proximal ileum terminal ileum biopsy has been positive for endometrial cancer and abdominal culture has been positive for Klebsiella E. coli Enterococcus along with anaerobes concerning for secondary peritonitis 2-patient is afebrile and the patient white count has been normal 3-patient to finish therapy with oral Augmentin 875 mg twice daily x 10 days on discharge and close outpatient follow-up discussed with HAND CLERICAL VERIFIER for admitting team working on discharge Dictation was produced using [employer] dictation software. please excuse any grammatical, word or spelling errors. Time with Patient: Less than 30
--- NOTE | 2023-10-12 12:04 | CDI ---
Documentation Clarification Form Date: 10/12/2023 11:51:58 AM From: Veronica Hernandez Phone: Admit Date: 09/16/2023 03:26:00 AM Patient Name: Carli Higuera Visit Number: [id number] Discharge Date: 10/05/2023 08:19:00 PM ATTENTION: The Clinical Documentation Specialists (CDI) and [facility] Coding Staff appreciate your assistance in clarifying documentation. Please respond to the clarification below the line at the bottom and electronically sign. The CDI & [facility] Coding staff will review the response and follow-up if needed. Please note: Queries are made part of the Legal Health Record. If you have any questions, please contact the author of this message via ITS. Dr. Cory Falcon Ischemic cardiomyopathy, per Consult Note 4/4, andNICM, per Consult Note 4/5, are documented. Additional clarification regarding the type ofcardiomyopathy is requested. History/Risk Factors: 78yo F,SBOd/tfrozenabdomen,endometrial adenocarcinoma, Alzheimers adementia,AHRF,permanent A Fib, Hxendometrial cancersp radiationlost to f/u, Acute leftCVA, Tox/Met encephalopathy,severe PCM, dehydration,DMII, CKD3B,ATN, Hx GIB Clinical indicators: Radiology Reports: Pleural space: Unremarkable. Nopneumothorax. Heart:Cardiomegaly. Mediastinum: Unremarkable. Normal mediastinal contour. Echocardiogram: Ejection fraction about 50-55%.Inferior wall hypokinesis. 2+ MR,Enlargedleft atrium Treatment: monitored Please clarify the type ofcardiomyopathy, if known: [x ] Nonischemic [ ]Ischemic [ ] other, please specify [ ] Unable to determine (Template LastRevised: August 2020) MTDD
--- NOTE | 2023-10-14 16:26 | CDI ---
Documentation Clarification Form Date: 10/14/2023 03:23:16 PM From: Philly Guzmán RN, CCDS Phone: [phone] Admit Date: 09/16/2023 03:26:00 AM Patient Name: Carli Higuera Visit Number: [id number] Discharge Date: 10/05/2023 08:19:00 PM ATTENTION: The Clinical Documentation Specialists (CDI) and [facility] Coding Staff appreciate your assistance in clarifying documentation. Please respond to the clarification below the line at the bottom and electronically sign. The CDI & [facility] Coding staff will review the response and follow-up if needed. Please note: Queries are made part of the Legal Health Record. If you have any questions, please contact the author of this message via ITS. Dr. Mera Humphrey Moderate subcutaneous emphysema of the thigh, abdomen, chest, neck and face were found when extubated immediately after surgery, and patient had Robotic- assisted da Radha Xi laparoscopic small bowel external bypass proximal ileum to mid ileum. Additional clarification is requested regarding the relationship, if any, that exists between the diagnosis and the procedure. 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 CT scan abdomen and pelvis that showed small bowel obstruction with transition point in the pelvis. The patient was found to have frozen abdomen. 09/23 procedure note: The abdomen was insufflated to 15 mmHg pressure that she initially tolerated well. She then went into atrial fibrillation with rapid ventricular response with stable blood pressure Moderate subcutaneous emphysema of the thighs, abdomen, chest, neck and face were found where extubation immediately after surgery was delayed. 09/23 CXR: Diffuse subcutaneous gas through the chest wall and Neck correlate for barotrauma. Treatment: ICU/Telemetry monitoring NPO NGT for decompression What relationship, if any, exists between the diagnosis of Subcutaneous emphysema and the procedure: [ ] Subcutaneous emphysema is a complication of surgical procedure [ x ] Subcutaneous emphysema is an expected outcome of the surgical procedure [ ] Subcutaneous emphysema to patients co-morbid condition(s) of & not a complication of the procedure [ ] Other please specify ____ [ ] Unable to determine (Template Last Revised: August 2020) [ x ] Subcutaneous emphysema is an expected outcome of the surgical procedure [facility] [facility]
== END 2023-10-05 20:19 | DRG 329 ==
LOC: EC 22:46 → 3SCARD 09-16 03:26 → 2SICU 09-24 17:13 → 3SCARD 09-30 07:27
PROVIDERS: ADMIT Hospitalist; ATTEND Hospitalist
PROC: 0D9680Z Drainage of Stomach with Drainage Device, Via Natural or Artificial Opening Endoscopic (ICD-10-PCS; 2023-09-16)
PROC: 0UB24ZX Excision of Bilateral Ovaries, Percutaneous Endoscopic Approach, Diagnostic (ICD-10-PCS; 2023-09-24)
PROC: 8E0W4CZ Robotic Assisted Procedure of Trunk Region, Percutaneous Endoscopic Approach (ICD-10-PCS; 2023-09-24)
PROC: 05H633Z Insertion of Infusion Device into Left Subclavian Vein, Percutaneous Approach (ICD-10-PCS; 2023-09-24)
PROC: 3E0336Z Introduction of Nutritional Substance into Peripheral Vein, Percutaneous Approach (ICD-10-PCS; 2023-09-24)
PROC: 0D1B4ZB Bypass Ileum to Ileum, Percutaneous Endoscopic Approach (ICD-10-PCS; principal; 2023-09-24 12:50)
DX: K56.50 Intestinal adhesions [bands], unspecified as to partial versus complete obstruction (principal); E43 Unspecified severe protein-calorie malnutrition; N17.0 Acute kidney failure with tubular necrosis; J96.01 Acute respiratory failure with hypoxia; J69.0 Pneumonitis due to inhalation of food and vomit; I63.89 Other cerebral infarction; G92.8 Other toxic encephalopathy; I13.0 Hypertensive heart and chronic kidney disease with heart failure and stage 1 through stage 4 chronic kidney disease, or unspecified chronic kidney disease; I42.8 Other cardiomyopathies; T79.7XXA Traumatic subcutaneous emphysema, initial encounter; C79.63 Secondary malignant neoplasm of bilateral ovaries; I48.21 Permanent atrial fibrillation; I50.32 Chronic diastolic (congestive) heart failure; I97.791 Other intraoperative cardiac functional disturbances during other surgery; R18.8 Other ascites; E87.0 Hyperosmolality and hypernatremia; E87.3 Alkalosis; E87.20 Acidosis, unspecified; J91.8 Pleural effusion in other conditions classified elsewhere; N13.39 Other hydronephrosis; K57.32 Diverticulitis of large intestine without perforation or abscess without bleeding; I27.20 Pulmonary hypertension, unspecified; F01.50 Vascular dementia, unspecified severity, without behavioral disturbance, psychotic disturbance, mood disturbance, and anxiety; G30.9 Alzheimer's disease, unspecified; E11.22 Type 2 diabetes mellitus with diabetic chronic kidney disease; F02.80 Dementia in other diseases classified elsewhere, unspecified severity, without behavioral disturbance, psychotic disturbance, mood disturbance, and anxiety; N18.32 Chronic kidney disease, stage 3b; Z91.198 Patient's noncompliance with other medical treatment and regimen for other reason; C54.1 Malignant neoplasm of endometrium; Z53.8 Procedure and treatment not carried out for other reasons; H47.619 Cortical blindness, unspecified side of brain; E83.39 Other disorders of phosphorus metabolism; K80.50 Calculus of bile duct without cholangitis or cholecystitis without obstruction; G93.89 Other specified disorders of brain; Z68.30 Body mass index [BMI] 30.0-30.9, adult; D63.0 Anemia in neoplastic disease; I34.0 Nonrheumatic mitral (valve) insufficiency; I25.10 Atherosclerotic heart disease of native coronary artery without angina pectoris; E78.5 Hyperlipidemia, unspecified; E87.5 Hyperkalemia; E86.0 Dehydration; N94.89 Other specified conditions associated with female genital organs and menstrual cycle; E87.6 Hypokalemia; E83.42 Hypomagnesemia; B96.1 Klebsiella pneumoniae [K. pneumoniae] as the cause of diseases classified elsewhere; B96.20 Unspecified Escherichia coli [E. coli] as the cause of diseases classified elsewhere; B95.2 Enterococcus as the cause of diseases classified elsewhere; B96.89 Other specified bacterial agents as the cause of diseases classified elsewhere; K52.89 Other specified noninfective gastroenteritis and colitis; T24.019A Burn of unspecified degree of unspecified thigh, initial encounter; T24.012A Burn of unspecified degree of left thigh, initial encounter; D35.02 Benign neoplasm of left adrenal gland; N73.5 Female pelvic peritonitis, unspecified; N73.6 Female pelvic peritoneal adhesions (postinfective); L29.9 Pruritus, unspecified; E53.8 Deficiency of other specified B group vitamins; R47.81 Slurred speech; X10.0XXA Contact with hot drinks, initial encounter; Z96.0 Presence of urogenital implants; Z85.41 Personal history of malignant neoplasm of cervix uteri; Z86.16 Personal history of COVID-19; Z79.811 Long term (current) use of aromatase inhibitors; Z79.82 Long term (current) use of aspirin; Z79.899 Other long term (current) drug therapy; I69.398 Other sequelae of cerebral infarction; Z85.42 Personal history of malignant neoplasm of other parts of uterus; Z87.891 Personal history of nicotine dependence; Z95.5 Presence of coronary angioplasty implant and graft; Z92.3 Personal history of irradiation; I25.2 Old myocardial infarction; Z87.19 Personal history of other diseases of the digestive system
CPT/HCPCS: 36415; 36600; 70450; 70551; 71045; 74018; 74019; 74176; 74230; 74250; 80048; 80053; 80061; 81001; 82105; 82310; 82330; 82607; 82728; 82746; 82805; 83036; 83540; 83550; 83605; 83690; 83735; 84100; 84132; 84145; 84443; 84478; 85025; 85027; 85610; 85730; 86300; 86301; 86304; 86850; 86900; 86901; 87040; 87070; 87075; 87077; 87086; 87186; 87205; 88108; 88305; 88307; 88341; 88342; 93005; 93306; 93880; 94002; 94003; 94760; 95816; 96361; 96374; 96375; 99285

== ENCOUNTER 2023-10-08 14:19 | Inpatient (IN) | payer MEDICARE, OTHER ==
--- NOTE | 2023-10-08 15:40 | ED ---
General Adult HPI - General Chief complaint: Abdominal Pain Stated complaint: low hemaglobin Time Seen by Provider: 10/08/23 15:22 Source: patient, EMS, RN notes reviewed, old records reviewed Mode of arrival: EMS Limitations: no limitations - History of Present Illness Initial comments: Patient is a pleasant 78-year-old female presenting to the emergency department with concerns for anemia. Patient reportedly have blood level decreasing from 12-7 over the past week or 2. Patient does have hematuria present in her [place] bag. Patient complains of some mild discomfort of lower abdomen. No reported rectal bleeding or dark stools. No reported vomiting or hematemesis. Patient does have reported history of atrial fibrillation - Related Data Home Medications Medication Instructions Recorded Confirmed Acetaminophen Tab [Tylenol] 650 mg PO Q6H PRN 10/08/23 10/08/23 Previous Rx's Medication Instructions Recorded Amoxic-Pot Clav 875-125Mg 1 tab PO BID #20 tab 10/05/23 [Augmentin 875-125] Aspirin 81 mg PO DAILY tab 10/05/23 Atorvastatin [Lipitor] 20 mg PO HS tab 10/05/23 Folic Acid 1 mg PO DAILY tab 10/05/23 Lidocaine 4% Patch 1 patch TOPICAL DAILY #3 patch 10/05/23 Metoprolol Tartrate [Lopressor] 50 mg PO TID tab 10/05/23 Allergies Allergy/AdvReac Type Severity Reaction Status Date / Time No Known Allergies Allergy Verified 10/08/23 15:24 Review of Systems ROS Statement: Those systems with pertinent positive or pertinent negative responses have been documented in the HPI. ROS Other: All systems not noted in ROS Statement are negative. Constitutional: Denies: fever Eyes: Denies: eye pain ENT: Denies: ear pain Cardiovascular: Denies: chest pain Endocrine: Denies: fatigue Gastrointestinal: Reports: as per HPI, abdominal pain Genitourinary: Reports: as per HPI Neurological: Denies: headache Past Medical History Past Medical History: Atrial Fibrillation, Cancer, CVA/TIA, GI Bleed, Hyperlipidemia, Myocardial Infarction ([place]) Additional Past Medical History / Comment(s): 07/27/17 F[employer] HIP FX. 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 History of COVID-19, cervical cancer treated with radiation. No taking Eliquis due to bleeding issues in past. Last Myocardial Infarction Date:: 2009 History of Any Multi-Drug Resistant Organisms: None Reported Past Surgical History: Heart Catheterization, Orthopedic Surgery, Tonsillectomy Additional Past Surgical History / Comment(s): ORIF RT ANKLE HAS PLATE. Past Anesthesia/Blood Transfusion Reactions: No Reported Reaction Past Psychological History: No Psychological Hx Reported Smoking Status: Former smoker, Never smoker Past Alcohol Use History: None Reported Past Drug Use History: None Reported - Past Family History Mother Family Medical History: No Reported History Additional Family Medical History / Comment(s): FROM ANUERYSM Father Family Medical History: No Reported History General Exam Limitations: no limitations General appearance: alert, in no apparent distress Head exam: Present: normocephalic Eye exam: Present: normal appearance ENT exam: Present: mucous membranes dry Neck exam: Present: normal inspection Respiratory exam: Present: normal lung sounds bilaterally Cardiovascular Exam: Present: tachycardia, irregular rhythm GI/Abdominal exam: Present: soft. Absent: distended, tenderness Extremities exam: Present: normal inspection Neurological exam: Present: alert Psychiatric exam: Present: normal affect, normal mood Skin exam: Present: pallor Course Vital Signs 10/08/23 10/08/23 10/08/23 14:57 15:10 15:40 Temperature 98.3 F Pulse Rate 150 H 158 H 168 H Respiratory 22 22 18 Rate Blood Pressure 168/109 166/120 182/116 O2 Sat by Pulse 94 L 95 94 L Oximetry 10/08/23 10/08/23 10/08/23 16:10 16:50 17:10 Temperature Pulse Rate 158 H 160 H 163 H Respiratory 22 22 20 Rate Blood Pressure 183/144 161/107 173/121 O2 Sat by Pulse 95 95 95 Oximetry 10/08/23 10/08/23 10/08/23 17:40 18:10 18:40 Temperature Pulse Rate 160 H 160 H 170 H Respiratory 22 22 26 H Rate Blood Pressure 176/109 176/119 171/133 O2 Sat by Pulse 95 95 94 L Oximetry 10/08/23 10/08/23 10/08/23 19:00 19:20 19:40 Temperature Pulse Rate 161 H 152 H 125 H Respiratory 20 20 20 Rate Blood Pressure 160/136 157/127 148/105 O2 Sat by Pulse 94 L 94 L 94 L Oximetry 10/08/23 10/08/23 10/08/23 20:03 21:26 21:59 Temperature 98.5 F Pulse Rate 126 H 126 H 125 H Respiratory 20 18 18 Rate Blood Pressure 132/119 149/99 147/117 O2 Sat by Pulse 93 L 92 L Oximetry 10/08/23 10/08/23 10/08/23 22:09 22:29 22:33 Temperature 98.1 F 98.7 F Pulse Rate 111 H 125 H 124 H Respiratory 18 18 18 Rate Blood Pressure 143/93 134/98 134/98 O2 Sat by Pulse 92 L 92 L 92 L Oximetry 10/08/23 10/09/23 10/09/23 23:26 00:00 00:18 Temperature 98.9 F Pulse Rate 130 H 125 H 106 H Respiratory 16 30 H 18 Rate Blood Pressure 149/91 138/97 155/98 O2 Sat by Pulse 92 L 94 L 92 L Oximetry 10/09/23 03:18 Temperature Pulse Rate 118 H Respiratory 20 Rate Blood Pressure 150/100 O2 Sat by Pulse 94 L Oximetry EKG Findings - EKG Results: EKG: interpreted by ERMD (Septal Q waves.), normal axis, normal ST/T EKG shows: tachycardia, atrial fibrillation Medical Decision Making - Medical Decision Making Was pt. sent in by a medical professional or institution (CARRIE Ricks, EXECUTIVE OFFICE MANAGER, urgent care, hospital, or shelter...) When possible be specific @ -Patient was s sent from nursing facility Did you speak to anyone other than the patient for history (EMS, parent, family, police, friend...)? What history was obtained from this source @ -[No] Did you review nursing and triage notes (agree or disagree)? Why? @ -[I reviewed and agree with nursing and triage notes] Were old charts reviewed (outside hosp., previous admission, EMS record, old EKG, old radiological studies, urgent care reports/EKG's, shelter records)? Report findings @ -Previous blood work reviewed and anemia appears new. Multiple previous x- rays Differential Diagnosis (chest pain, altered mental status, abdominal pain women, abdominal pain men, vaginal bleeding, weakness, fever, dyspnea, syncope, headache, dizziness, GI bleed, back pain, seizure, CVA, palpatations, mental health, musculoskeletal)? @ -Differential Weakness: Hypoglycemia, shock, sepsis, hyponatremia, anemia, infection, [place], ETOH, adverse medicine reaction, overdose, stroke, this is not meant to be an all-inclusive list. EKG interpreted by me (3pts min.). @ -[As above] X-rays interpreted by me (1pt min.). @ -Chest x-ray shows some cardiomegaly with bilateral changes consistent with multiple previous x-rays. CT interpreted by me (1pt min.). @ -CT scan abdomen and pelvis ordered. U/S interpreted by me (1pt. min.). @ -[None done] What testing was considered but not performed or refused? (CT, X-rays, U/S, labs)? Why? @ -Secondary to discomfort CT scan abdomen pelvis reviewed. What meds were considered but not given or refused? Why? @ -[None] Did you discuss the management of the patient with other professionals (professionals i.e. DrJoanie, PA, EXECUTIVE OFFICE MANAGER, lab, RT, psych nurse, sexual assault social worker, inside sales consultant, teacher, financial administration officer, case making machine operator)? Give summary @ -Case was discussed with Dr. Sanabria will admit, Dr. Maddox. Case also discussed with Dr. Estrada with urology will consult Was smoking cessation discussed for >3mins.? @ -[No] Was critical care preformed (if so, how long)? @ -31 minutes critical care to Were there social determinants of health that impacted care today? How? (Homelessness, low income, unemployed, alcoholism, drug addiction, transportation, low edu. Level, literacy, decrease access to med. care, fdc, rehab)? @ -[No] Was there de-escalation of care discussed even if they declined (Discuss DNR or withdrawal of care, Hospice)? DNR status @ -[No] What co-morbidities impacted this encounter? (DM, HTN, Smoking, COPD, CAD, Cancer, CVA, ARF, Chemo, Hep., AIDS, mental health diagnosis, sleep apnea, morbid obesity)? @ -A-fib with RVR Was patient admitted / discharged? Hospital course, mention meds given and route, prescriptions, significant lab abnormalities, going to OR and other pertinent info. @ -Patient presents secondary to anemia. Patient does have A-fib with RVR. On reevaluation heart rate remains unchanged and Cardizem drip increased. Heparin will not be started at this time secondary to hematuria with anemia. Patient will be admitted with urology and cardiology consult. Admission orders placed. Undiagnosed new problem with uncertain prognosis? @ -[No] Drug Therapy requiring intensive monitoring for toxicity (Heparin, Nitro, Insulin, Cardizem)? @ -Patient is on Cardizem drip that will need monitoring Were any procedures done? @ -[No] Diagnosis/symptom? @ -A-fib with RVR, anemia with hematuria. Acute, or Chronic, or Acute on Chronic? @ -Acute, acute, acute Uncomplicated (without systemic symptoms) or Complicated (systemic symptoms)? @ -Complicated with dysrhythmia Side effects of treatment? @ -[No] Exacerbation, Progression, or Severe Exacerbation? @ -[No] Poses a threat to life or bodily function? How? (Chest pain, [place], [place], pneumonia, PE, COPD, DKA, ARF, appy, cholecystitis, CVA, Diverticulitis, Homicidal, Suicidal, threat to staff... and all critical care pts) @ -Threat to organ function through anemia There is potential for sepsis concern at 1936. Blood culture and lactic acid and IV antibiotics have all been ordered. - Lab Data Result diagrams: 10/09/23 05:24 10/09/23 05:24 Lab Results 10/08/23 10/08/23 10/08/23 Range/Units 15:19 15:19 15:19 WBC 13.2 H (3.8-10.6) k/uL RBC 2.21 L (3.80-5.40) m/uL Hgb 6.8 L* (11.4-16.0) gm/dL Hct 21.7 L (34.0-46.0) % MCV 98.2 (80.0-100.0) fL MCH 30.8 (25.0-35.0) pg MCHC 31.3 (31.0-37.0) g/dL RDW 15.6 H (11.5-15.5) % Plt Count 310 (150-450) k/uL MPV 8.0 Neutrophils % 89 % Lymphocytes % 7 % Monocytes % 3 % Eosinophils % 0 % Basophils % 0 % Neutrophils # 11.8 H (1.3-7.7) k/uL Lymphocytes # 0.9 L (1.0-4.8) k/uL Monocytes # 0.4 (0-1.0) k/uL Eosinophils # 0.0 (0-0.7) k/uL Basophils # 0.0 (0-0.2) k/uL Hypochromasia Slight Macrocytosis Slight PT 11.2 (10.0-12.5) sec INR 1.0 (<1.2) APTT 23.0 (22.0-30.0) sec Sodium 136 L (137-145) mmol/L Potassium 4.9 (3.5-5.1) mmol/L Chloride 106 (98-107) mmol/L Carbon Dioxide 23 (22-30) mmol/L Anion Gap 7 mmol/L BUN 26 H (7-17) mg/dL Creatinine 1.72 H (0.52-1.04) mg/dL Est GFR (CKD-EPI)AfAm 32 (>60 ml/min/1.73 sqM) Est GFR (CKD-EPI)NonAf 28 (>60 ml/min/1.73 sqM) Glucose 206 H (74-99) mg/dL Lactic Ac Sepsis Rflx Plasma Lactic Acid [place] (0.7-2.0) mmol/L Calcium 8.9 (8.4-10.2) mg/dL Total Bilirubin 0.8 (0.2-1.3) mg/dL AST 34 (14-36) U/L ALT 23 (4-34) U/L Alkaline Phosphatase 88 (38-126) U/L Troponin I (0.000-0.034) ng/mL Total Protein 5.5 L (6.3-8.2) g/dL Albumin 2.7 L (3.5-5.0) g/dL Urine Color Urine Appearance (Clear) Urine RBC (0-5) /hpf Urine WBC (0-5) /hpf Urine Bacteria (None) /hpf Stool Occult Blood (Negative) Blood Type Blood Type Recheck Bld Type Recheck Status Antibody Screen Crossmatch Spec Expiration Date 10/08/23 10/08/23 10/08/23 Range/Units 15:19 15:19 15:19 WBC (3.8-10.6) k/uL RBC (3.80-5.40) m/uL Hgb (11.4-16.0) gm/dL Hct (34.0-46.0) % MCV (80.0-100.0) fL MCH (25.0-35.0) pg MCHC (31.0-37.0) g/dL RDW (11.5-15.5) % Plt Count (150-450) k/uL MPV Neutrophils % % Lymphocytes % % Monocytes % % Eosinophils % % Basophils % % Neutrophils # (1.3-7.7) k/uL Lymphocytes # (1.0-4.8) k/uL Monocytes # (0-1.0) k/uL Eosinophils # (0-0.7) k/uL Basophils # (0-0.2) k/uL Hypochromasia Macrocytosis PT (10.0-12.5) sec INR (<1.2) APTT (22.0-30.0) sec Sodium (137-145) mmol/L Potassium (3.5-5.1) mmol/L Chloride (98-107) mmol/L Carbon Dioxide (22-30) mmol/L Anion Gap mmol/L BUN (7-17) mg/dL Creatinine (0.52-1.04) mg/dL Est GFR (CKD-EPI)AfAm (>60 ml/min/1.73 sqM) Est GFR (CKD-EPI)NonAf (>60 ml/min/1.73 sqM) Glucose (74-99) mg/dL Lactic Ac Sepsis Rflx Plasma Lactic Acid [place] 3.5 H* (0.7-2.0) mmol/L Calcium (8.4-10.2) mg/dL Total Bilirubin (0.2-1.3) mg/dL AST (14-36) U/L ALT (4-34) U/L Alkaline Phosphatase (38-126) U/L Troponin I 0.014 (0.000-0.034) ng/mL Total Protein (6.3-8.2) g/dL Albumin (3.5-5.0) g/dL Urine Color Urine Appearance (Clear) Urine RBC (0-5) /hpf Urine WBC (0-5) /hpf Urine Bacteria (None) /hpf Stool Occult Blood (Negative) Blood Type A Positive Blood Type Recheck A Pos Bld Type Recheck Status No Antibody Screen NEGATIVE Crossmatch See Detail Spec Expiration Date 10/11/2023 - 231810/08/23 10/08/23 10/08/23 Range/Units 16:04 16:22 16:31 WBC (3.8-10.6) k/uL RBC (3.80-5.40) m/uL Hgb (11.4-16.0) gm/dL Hct (34.0-46.0) % MCV (80.0-100.0) fL MCH (25.0-35.0) pg MCHC (31.0-37.0) g/dL RDW (11.5-15.5) % Plt Count (150-450) k/uL MPV Neutrophils % % Lymphocytes % % Monocytes % % Eosinophils % % Basophils % % Neutrophils # (1.3-7.7) k/uL Lymphocytes # (1.0-4.8) k/uL Monocytes # (0-1.0) k/uL Eosinophils # (0-0.7) k/uL Basophils # (0-0.2) k/uL Hypochromasia Macrocytosis PT (10.0-12.5) sec INR (<1.2) APTT (22.0-30.0) sec Sodium (137-145) mmol/L Potassium (3.5-5.1) mmol/L Chloride (98-107) mmol/L Carbon Dioxide (22-30) mmol/L Anion Gap mmol/L BUN (7-17) mg/dL Creatinine (0.52-1.04) mg/dL Est GFR (CKD-EPI)AfAm (>60 ml/min/1.73 sqM) Est GFR (CKD-EPI)NonAf (>60 ml/min/1.73 sqM) Glucose (74-99) mg/dL Lactic Ac Sepsis Rflx Y Plasma Lactic Acid [place] (0.7-2.0) mmol/L Calcium (8.4-10.2) mg/dL Total Bilirubin (0.2-1.3) mg/dL AST (14-36) U/L ALT (4-34) U/L Alkaline Phosphatase (38-126) U/L Troponin I (0.000-0.034) ng/mL Total Protein (6.3-8.2) g/dL Albumin (3.5-5.0) g/dL Urine Color Red Urine Appearance Cloudy H (Clear) Urine RBC >182 H (0-5) /hpf Urine WBC >182 H (0-5) /hpf Urine Bacteria Many H (None) /hpf Stool Occult Blood Positive H (Negative) Blood Type Blood Type Recheck Bld Type Recheck Status Antibody Screen Crossmatch Spec Expiration Date Disposition Clinical Impression: Atrial fibrillation with RVR, Hematuria, Anemia Disposition: ADMITTED IP TO THIS HOSP Is patient prescribed a controlled substance at d/c from ED?: No Time of Disposition: 19:33
[2023-10-08 15:43] LABS: Prothrombin Time 11.2 sec (10.0-12.5)
[2023-10-08 15:54] LABS: Basophils % (A) 0 %; Eosinophils % (A) 0 %; HCT 21.7 % (34.0-46.0); Hypochromasia Slight; Lymphocytes # (A) 0.9 k/uL (1.0-4.8); Lymphocytes % (A) 7 %; MCH 30.8 pg (25.0-35.0); MCHC 31.3 g/dL (31.0-37.0); MCV 98.2 fL (80.0-100.0); Macrocytosis Slight; Monocytes # (A) 0.4 k/uL (0-1.0); Monocytes % (A) 3 %; Neutrophils # (A) 11.8 k/uL (1.3-7.7); Neutrophils % (A) 89 %; Platelet Count 310 k/uL (150-450); RBC 2.21 m/uL (3.80-5.40); RDW 15.6 % (11.5-15.5); WBC 13.2 k/uL (3.8-10.6)
[2023-10-08 15:56] LABS: ALT 23 U/L (4-34); AST 34 U/L (14-36); African American GFR (CKD) 32 (>60 ml/min/1.73 sqM); Albumin 2.7 g/dL (3.5-5.0); Alkaline Phosphatase 88 U/L (38-126); Anion Gap 7 mmol/L; Blood Urea Nitrogen 26 mg/dL (7-17); Calcium 8.9 mg/dL (8.4-10.2); Carbon Dioxide 23 mmol/L (22-30); Chloride 106 mmol/L (98-107); Glucose 206 mg/dL (74-99); Non-African American GFR(CKD) 28 (>60 ml/min/1.73 sqM); Potassium 4.9 mmol/L (3.5-5.1); Sodium 136 mmol/L (137-145); Total Bilirubin 0.8 mg/dL (0.2-1.3); Total Protein 5.5 g/dL (6.3-8.2)
[2023-10-08 15:58] LABS: HGB 6.8 gm/dL (11.4-16.0)
--- NOTE | 2023-10-08 16:06 | XR ---
EXAMINATION TYPE: XR chest 1V portable DATE OF EXAM: 10/08/2023 COMPARISON: 09/29/2023 HISTORY: Tachycardia TECHNIQUE: Single frontal view of the chest is obtained. FINDINGS: There is a retrocardiac left basilar opacity obscuring the left hemidiaphragm most likely a combinati on of small pleural effusion and possibly atelectasis or pneumonia. Focal infiltrate is also seen in the right base possibly indicating an acute pneumonia. The heart is mildly prominent in size and the pulmonary vasculature appears congested. IMPRESSION: 1. Moderate acute cardiopulmonary disease essentially unchanged compared to previous. 2. Findings suggest CHF although bibasilar pneumonias with small effusions not excluded. Short-term f ollow up to resolution is recommended
[2023-10-08 16:57] LABS: Appearance,Urine Cloudy (Clear); Color,Urine Red
[2023-10-08 17:13] LABS: Bacteria,Urine Many /hpf; RBC,Urine >182 /hpf (0-5); WBC,Urine >182 /hpf (0-5)
[2023-10-08] MEDS: PANTOPRAZOLE 40 MG/10 ML VIAL IVP STA (17:40)
[2023-10-08] MEDS: DILTIAZEM 125 MG in SODIUM CHLORIDE 0.9% 100 ML IV SCH (17:41)
[2023-10-08] MEDS ORDERED: NALOXONE 0.4 MG/ML 1 ML VIAL IV PRN (19:34)
[2023-10-08] MEDS: DILTIAZEM DRIP BOLUS FROM BAG 1 MG SOLN IV ONE (19:59)
[2023-10-08] MEDS: ATORVASTATIN 20 MG TAB PO SCH (21:43)
[2023-10-08] MEDS: SODIUM CHLORIDE 0.9% 1,000 ML IV SCH (22:26)
[2023-10-08] MEDS: LIDOCAINE 4% PATCH TOPICAL SCH (22:35)
[2023-10-08] MEDS: METOPROLOL TARTRATE 50 MG TAB PO SCH (23:29)
[2023-10-09] MEDS: LORazepam 2 MG/ML INJ IV PRN (02:29)
[2023-10-09 06:19] LABS: Anisocytosis Slight; Basophils % (A) 0 %; Eosinophils % (A) 0 %; HCT 26.3 % (34.0-46.0); Hypochromasia Moderate; Lymphocytes % (A) 7 %; MCH 30.8 pg (25.0-35.0); MCHC 30.4 g/dL (31.0-37.0); MCV 101.2 fL (80.0-100.0); Macrocytosis Slight; Mean Platelet Volume 8.5; Monocytes # (A) 0.7 k/uL (0-1.0); Monocytes % (A) 5 %; Neutrophils # (A) 11.9 k/uL (1.3-7.7); Neutrophils % (A) 85 %; Platelet Count 258 k/uL (150-450); RDW 16.4 % (11.5-15.5)
--- NOTE | 2023-10-09 06:31 | CT ---
EXAMINATION TYPE: CT abdomen pelvis wo con CT DLP: 985.8 mGycm, Automated exposure control for dose reduction was used. DATE OF EXAM: 10/08/2023 7:18 PM COMPARISON: Correlation with earlier same day chest x-ray CLINICAL INDICATION:Female, 78 years old with history of abp w hematuria; Hematuria. TECHNIQUE: Axial CT of the abdomen and pelvis. Sagittal and coronal reformats were created on a [employer] workstation. Contrast used: mL of , (none if empty) Oral contrast used: without Oral Contrast (none if empty) FINDINGS: Exam limited by patient condition, motion, and streak artifacts resulting from the patient's nonstand rochelle arm positioning. Lack of IV contrast also limits evaluation for certain types of pathology. LOWER CHEST: The heart appears moderately enlarged. There are some calcifications of the aortic and m itral valves. Scattered coronary artery calcifications. No pericardial effusion is seen. Abnormal sil earance of the lung bases, including moderate to large bilateral pleural effusions with adjacent comp ressive atelectasis and possibly pneumonic infiltrates. ABDOMEN LIVER: Grossly unremarkable. GALLBLADDER AND BILE DUCTS: Motion limits evaluation, but the gallbladder appears to be distended wit h several calcified gallstones. Gallbladder inflammation cannot be excluded. No clear evidence of pat hologic dilatation of the biliary tree by this study. PANCREAS: Grossly unremarkable SPLEEN: Grossly unremarkable ADRENAL GLANDS: Not well seen. There is soft tissue density in the left suprarenal location but this could be a gastric diverticulum etc. versus an adrenal lesion.. KIDNEYS AND URETERS: There is a right double-J ureteral stent in place extending from the proximal pi gtail at the level of the renal pelvis distally to the distal pigtail within the left posterolateral urinary bladder. No clear evidence of calculi along its course. Despite the stent, there is severe ri ght-sided hydronephrosis, probably long-standing as it appears there is also significant cortical thi nning. On the left, there appears to be mild to moderate hydronephrosis, the ureter is difficult to t race but there is no clear evidence of calculus along its anticipated course. No clear evidence of renal calculi. There are rounded renal nodules of varying attenuation which are not well characterized by this exam. Some if not all could be simple and/or proteinaceous cysts, but neoplasm cannot be excluded. PELVIS Evaluation of the pelvis is limited by beam hardening artifact resulting from left hip prosthesis. BLADDER: Contains a Crockett balloon, however the bladder is distended and there are relatively hyperden se urinary contents, numerous bubbles of gas within, as well as a collection of intraluminal gas ante riorly. No clearly identified bladder calculi. REPRODUCTIVE: Unable to assess. ABDOMEN & PELVIS STOMACH AND BOWEL: There does not appear to be evidence of a bowel obstruction. Appendix is not seen. There is moderate stool throughout the colon without gross evidence of an acute abnormality. There i s the suggestion of bowel anastomosis in the left anterior abdomen. There are numerous calcified dive rticula in the mid to distal sigmoid region. No clear-cut evidence of diverticulitis. PERITONEUM/RETROPERITONEUM: No evidence of pneumoperitoneum or free fluid. Generalized mild hazines s of the mesentery suggesting edema. VASCULATURE: Moderate to severe atherosclerotic calcifications are present throughout the abdominal a lorna and its branches. No evidence of aortic aneurysm. Common iliac arteries are mildly ectatic. LYMPH NODES: No definite enlarged lymph nodes are demonstrated. SOFT TISSUE/ABDOMINAL WALL: Moderate to severe diffuse soft tissue edema compatible with anasarca. MUSCULOSKELETAL: Generalized osteopenia. No clearly acute osseous abnormalities. Moderate degenerativ e changes throughout the visualized spine. Vertebral body heights are generally preserved. No signifi cant listhesis. Left hip arthroplasty is in place. Osseous changes in the proximal femurs may be resu lt of degenerative changes versus remote healed traumatic injuries. IMPRESSION: 1. Markedly limited study, as discussed above. 2. Moderate cardiomegaly, with scattered coronary artery calcifications and some calcifications of t he aortic and mitral valves. 3. Moderate to large bilateral pleural effusions with adjacent compressive atelectasis and possibly pneumonic infiltrates. 4. The gallbladder appears to be distended with several calcified gallstones. Gallbladder inflammati on cannot be excluded. 5. Right-sided double-J ureteral stent in place, despite presence of the stent there is severe right -sided hydronephrosis, probably long-standing as it appears there is also significant cortical thinni ng. 6. On the left, there appears to be mild to moderate hydronephrosis, without definite ureteral calcu deejay shown. 7. Nonspecific bilateral renal nodules, could be further investigated with ultrasound if and when cl inically appropriate. 8. Abnormal appearance of the urinary bladder. This is distended despite presence of a Crockett balloon . There are relatively hyperdense urinary contents, with numerous bubbles of gas within, as well as a collection of intraluminal gas anteriorly. The findings may represent hematuria, other urinary sedim ents, infection, iatrogenic gas from the Crockett catheter, or a combination. 9. Evidence of third spacing of fluids, including the bilateral pleural effusions, mild diffuse mese nteric edema, and moderate to severe diffuse body wall edema compatible with anasarca. 10. Moderate to severe atherosclerotic calcifications of the abdominal aorta and branches. No eviden ce of aortic aneurysm. Common iliac arteries are mildly ectatic. 11. Other chronic and likely incidental findings, as described above.
[2023-10-09 06:49] LABS: ALT 39 U/L (4-34); AST 64 U/L (14-36); African American GFR (CKD) 25 (>60 ml/min/1.73 sqM); Albumin 2.6 g/dL (3.5-5.0); Alkaline Phosphatase 83 U/L (38-126); Anion Gap 11 mmol/L; Blood Urea Nitrogen 30 mg/dL (7-17); Calcium 8.6 mg/dL (8.4-10.2); Carbon Dioxide 19 mmol/L (22-30); Chloride 108 mmol/L (98-107); Glucose 192 mg/dL (74-99); Magnesium 1.9 mg/dL (1.6-2.3); Non-African American GFR(CKD) 22 (>60 ml/min/1.73 sqM); Sodium 138 mmol/L (137-145); Total Bilirubin 1.2 mg/dL (0.2-1.3); Total Protein 5.2 g/dL (6.3-8.2)
[2023-10-09] MEDS: DILTIAZEM ORAL 30 MG TAB PO SCH (08:35)
[2023-10-09] MEDS: PANTOPRAZOLE 40 MG/10 ML VIAL IV SCH (08:36)
[2023-10-09] MEDS: FOLIC ACID 1 MG TAB PO SCH (08:36)
--- NOTE | 2023-10-09 10:26 | P.CRDCN ---
History of Present Illness History of present illness: HISTORY OF PRESENT ILLNESS: This is a 78-year-old female with a past medical history significant for nonischemic cardiomyopathy, CVA, mitral regurgitation, and persistent atrial fibrillation. Patient follows in the office with Dr. [place]. We have been asked to see the patient in consultation for A-fib with RVR. Patient examined at the bedside in the emergency room. Patient is a poor historian. There is no family present. Patient was recently hospitalized with a prolonged hospitalization from September 16, 2023 until October 05, 2023 for small bowel obstruction. The patient also was diagnosed with secondary peritonitis, acute/subacute CVA involving the left cerebellum, and silent aspiration during that hospitalization. She was discharged to [facility]. The patient was brought to the hospital secondary to hematuria noted in her Crockett catheter bag. Additionally the patient was found to be anemic with a hemoglobin of 6.8. Previous hemoglobin in the range of 912. Patient did receive 1 unit of packed RBCs. Repeat hemoglobin this morning is 8.0. EKG on admission reveals atrial fibrillation with RVR. Patient was started on IV Cardizem which has since been discontinued. Bedside telemetry reveals atrial fibrillation with a heart rate around 110. DIAGNOSTICS: - EKG reveals atrial fibrillation with RVR. Heart rate 132. - Chest xray: Moderate acute cardiopulmonary disease essentially unchanged compared to previous. Findings suggest CHF although bibasilar pneumonia with small effusions not excluded. - Laboratory data: WBC 14.0. Hemoglobin 8.0. Platelet count 258. Sodium 138. Potassium 5.0. BUN 30. Creatinine 2.13. Lactic acid 3.5. Troponin negative x 1. - Current home cardiac medications include aspirin 81 mg daily, Lipitor 20 mg at night, metoprolol titrate 50 mg 3 times a day. - Most recent echocardiogram obtained on 10/04/2023 revealed ejection fraction 50%, mild aortic regurgitation, moderate TR, moderate MR, trace pulmonic regurgitation, inferior wall hypokinesis. - Cardiac catheterization history: 2017 revealing normal coronary arteries REVIEW OF SYSTEMS: At the time of my exam: CONSTITUTIONAL: Denies fever or chills. HEENT: Denies blurred vision, vision changes, or eye pain. Denies hemoptysis CARDIOVASCULAR: Denies chest pain. Denies orthopnea. Denies PND. Denies palpitations RESPIRATORY: Denies shortness of breath. GASTROINTESTINAL: Denies abdominal pain. Denies nausea or vomiting. HEMATOLOGIC: Denies bleeding disorders. GENITOURINARY: Reports blood in urine. SKIN: Denies pruitis. Denies rash. PHYSICAL EXAM: VITAL SIGNS: Reviewed. GENERAL: Well-developed in no acute distress. HEENT: Head is normocephalic. Pupils are equal, round. Sclerae anicteric. Mucous membranes of the mouth are moist. Neck supple. No JVD or thyromegaly LUNGS: Respirations even and unlabored. Lungs essentially clear to auscultation bilaterally. HEART: Tachycardic. Irregular rate and rhythm. S1 and S2 heard. 3/6 systolic murmur at the apex ABDOMEN: Soft. Nondistended. Nontender. EXTREMITIES: Normal range of motion. No clubbing or cyanosis. Peripheral pulses intact. Trace bilateral lower extremity edema. Wound noted to left anterior thigh. NEUROLOGIC: Awake and alert. ASSESSMENT: Hematuria Acute anemia, hemoglobin 6.8, previously 912 during recent hospitalization Persistent atrial fibrillation with RVR, not anticoagulated on an outpatient basis secondary to significant vaginal bleeding/endometrial adenocarcinoma Recent hospitalization for small bowel obstruction secondary to frozen abdomen and pelvic malignancy. Pathology positive for endometrial adenocarcinoma. Patient also had secondary peritonitis. History of recent acute/subacute CVA involving left cerebellum, 09/2023 History of silent aspiration during hospitalization 09/2023 History of nonischemic cardiomyopathy Normal coronary arteries, per cardiac catheterization 2016 Moderate pulmonary hypertension Moderate to severe mitral regurgitation Current kidney disease History of CVA PLAN: No need to repeat echocardiogram as this was performed earlier this month Discontinue IV Cardizem Continue metoprolol 50 mg 3 times a day Add oral Cardizem 30 mg 3 times daily for optimal heart rate control Continue telemetry monitoring Patient is not anticoagulated on an outpatient basis secondary to significant vaginal bleeding/endometrial adenocarcinoma Urology has been consulted for hematuria Further recommendations pending patient course Nurse practitioner note has been reviewed by physician. Signing provider agrees with the documented findings, assessment, and plan of care documented by [employer] as a scribe. Past Medical History Past Medical History: Atrial Fibrillation, Cancer, CVA/TIA, GI Bleed, Hyperlip idemia, Myocardial Infarction ([place]) Additional Past Medical History / Comment(s): 07/27/17 FALL'LT HIP FX. 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 History of COVID-19, cervical cancer treated with radiation. No taking Eliquis due to bleeding issues in past. SBO 09/2023 Last Myocardial Infarction Date:: 2009 History of Any Multi-Drug Resistant Organisms: None Reported Past Surgical History: Heart Catheterization, Orthopedic Surgery, Tonsillectomy Additional Past Surgical History / Comment(s): ORIF RT ANKLE HAS PLATE. Past Anesthesia/Blood Transfusion Reactions: No Reported Reaction Smoking Status: Former smoker, Never smoker - Past Family History Mother Family Medical History: No Reported History Additional Family Medical History / Comment(s): FROM ANUERYSM Father Family Medical History: No Reported History Medications and Allergies Home Medications Medication Instructions Recorded Confirmed Type Amoxic-Pot Clav 875-125Mg 1 tab PO BID #20 tab 10/05/23 10/08/23 Rx [Augmentin 875-125] Aspirin 81 mg PO DAILY tab 10/05/23 10/08/23 Rx Atorvastatin [Lipitor] 20 mg PO HS tab 10/05/23 10/08/23 Rx Folic Acid 1 mg PO DAILY tab 10/05/23 10/08/23 Rx Lidocaine 4% Patch 1 patch TOPICAL DAILY #3 patch 10/05/23 10/08/23 Rx Metoprolol Tartrate [Lopressor] 50 mg PO TID tab 10/05/23 10/08/23 Rx Acetaminophen Tab [Tylenol] 650 mg PO Q6H PRN 10/08/23 10/08/23 History Allergies Allergy/AdvReac Type Severity Reaction Status Date / Time No Known Allergies Allergy Verified 10/08/23 15:24 Physical Exam Vitals: Vital Signs Temp Pulse Resp BP Pulse Ox 10/09/23 03:18 118 H 20 150/100 94 L 10/09/23 00:18 98.9 F 106 H 18 155/98 92 L 10/09/23 00:00 125 H 30 H 138/97 94 L 10/08/23 23:26 130 H 16 149/91 92 L 10/08/23 22:33 124 H 18 134/98 92 L 10/08/23 22:29 98.7 F 125 H 18 134/98 92 L 10/08/23 22:09 98.1 F 111 H 18 143/93 92 L 10/08/23 21:59 98.5 F 125 H 18 147/117 10/08/23 21:26 126 H 18 149/99 92 L 10/08/23 20:03 126 H 20 132/119 93 L 10/08/23 19:40 125 H 20 148/105 94 L 10/08/23 19:20 152 H 20 157/127 94 L 10/08/23 19:00 161 H 20 160/136 94 L 10/08/23 18:40 170 H 26 H 171/133 94 L 10/08/23 18:10 160 H 22 176/119 95 10/08/23 17:40 160 H 22 176/109 95 10/08/23 17:10 163 H 20 173/121 95 10/08/23 16:50 160 H 22 161/107 95 10/08/23 16:10 158 H 22 183/144 95 10/08/23 15:40 168 H 18 182/116 94 L 10/08/23 15:10 158 H 22 166/120 95 10/08/23 14:57 98.3 F 150 H 22 168/109 94 L Intake and Output 10/08/23 10/09/23 10/09/23 22:59 06:59 14:59 Intake Total 11.583 103.667 Balance 11.583 103.667 Intake: Intake, IV Titration 11.583 103.667 Amount Diltiazem 125 mg In 11.583 103.667 Sodium Chloride 0.9% 100 ml @ 10 MG/HR 10 mls/hr IV .[id number] [facility] Rx#: [id number] Blood Product 0 0 Rc As-1 Unit 0 0 [id number] Results 10/09/23 05:24 10/09/23 05:24 Cardiac Enzymes 10/08/23 10/08/23 10/09/23 Range/Units 15:19 15:19 05:24 AST 34 64 H (14-36) U/L Troponin I 0.014 (0.000-0.034) ng/mL Coagulation 10/08/23 Range/Units 15:19 PT 11.2 (10.0-12.5) sec APTT 23.0 (22.0-30.0) sec CBC 10/08/23 10/09/23 Range/Units 15:19 05:24 WBC 13.2 H 14.0 H (3.8-10.6) k/uL RBC 2.21 L 2.60 L (3.80-5.40) m/uL Hgb 6.8 L* 8.0 L (11.4-16.0) gm/dL Hct 21.7 L 26.3 L (34.0-46.0) % Plt Count 310 258 (150-450) k/uL Comprehensive Metabolic Panel 10/08/23 10/09/23 Range/Units 15:19 05:24 Sodium 136 L 138 (137-145) mmol/L Potassium 4.9 5.0 (3.5-5.1) mmol/L Chloride 106 108 H (98-107) mmol/L Carbon Dioxide 23 19 L (22-30) mmol/L BUN 26 H 30 H (7-17) mg/dL Creatinine 1.72 H 2.13 H (0.52-1.04) mg/dL Glucose 206 H 192 H (74-99) mg/dL Calcium 8.9 8.6 (8.4-10.2) mg/dL AST 34 64 H (14-36) U/L ALT 23 39 H (4-34) U/L Alkaline Phosphatase 88 83 (38-126) U/L Total Protein 5.5 L 5.2 L (6.3-8.2) g/dL Albumin 2.7 L 2.6 L (3.5-5.0) g/dL Current Medications Generic Name Dose Route Start Last Admin Trade Name Freq PRN Reason Stop Dose Admin Acetaminophen 650 mg 10/08/23 19:34 Acetaminophen Tab 325 Mg Tab PO Q6HR PRN Mild Pain or Fever > 100.5 Atorvastatin Calcium 20 mg 10/08/23 21:00 10/08/23 21:43 Atorvastatin 20 Mg Tab PO 20 mg HS [facility]ALPES[facility] Administration Diltiazem HCl 30 mg 10/09/23 09:00 10/09/23 08:35 Diltiazem Oral 30 Mg Tab PO 30 mg TID KALPESH Administration Folic Acid 1 mg 10/09/23 09:00 10/09/23 08:36 Folic Acid 1 Mg Tab PO 1 mg DAILY [facility]ALPES[facility] Administration Sodium Chloride 1,000 mls @ 75 mls/hr 10/08/23 19:45 10/09/23 09:08 Saline 0.9% IV 75 mls/hr .[id number] KALPES[facility] Administration Ceftriaxone Sodium 2 gm/ 50 mls @ 100 mls/hr 10/09/23 21:00 Sodium Chloride IVPB HS KALPES[facility] Protocol Lidocaine 1 patch 10/08/23 21:15 10/09/23 08:36 Lidocaine 4% Patch TOPICAL 1 patch DAILY KALPES[facility] Administration Protocol Lorazepam 1 mg 10/09/23 02:16 10/09/23 02:29 Lorazepam 2 Mg/Ml Inj IV 1 mg Q8HR PRN Administration Anxiety Metoprolol Tartrate 50 mg 10/08/23 22:00 10/09/23 08:35 Metoprolol Tartrate 50 Mg Tab PO 50 mg TID KALPES[facility] Administration Naloxone HCl 0.2 mg 10/08/23 19:34 Naloxone 0.4 Mg/Ml 1 Ml Vial IV Q2M PRN Opioid Reversal Pantoprazole Sodium 40 mg 10/09/23 09:00 10/09/23 08:36 Pantoprazole 40 Mg/10 Ml Vial IV 40 mg DAILY KALPESH Administration Intake and Output 10/08/23 10/09/23 10/09/23 22:59 06:59 14:59 Intake Total 11.583 103.667 Balance 11.583 103.667 Intake: Intake, IV Titration 11.583 103.667 Amount Diltiazem 125 mg In 11.583 103.667 Sodium Chloride 0.9% 100 ml @ 10 MG/HR 10 mls/hr IV .[id number] [facility] Rx#: [id number] Blood Product 0 0 Rc As-1 Unit 0 0 [id number] 10/09/23 05:24 10/09/23 05:24
--- NOTE | 2023-10-09 10:46 | P.GSCN ---
History of Present Illness Consult date: 10/09/23 History of present illness: 78 yo female in the hospital with anemia. SHe recently was in [facility] where she underwent major bowle surgery. Her ngb was in the low 9 range. She was seen by Dr Roberto 09/22/23. SHe has chronic right hydro and a ureteral stent. The details were not clear to him at that time as it was placed at an outside institution. the patient has an indwelling edward with hematuria. HEr hgb in the er was 6.8.The patient had a ct scan that shows the double j catheter,chronic right hydro, mild left hydro and a bladder with a edward and probably some blood. there is a history of cervical cancer treated with radiation probably contributing to the bladder and ureteral findings.This was apparently done a melanie Cadena in [place]. The patient can give no other history. Past Medical History Past Medical History: Atrial Fibrillation, Cancer, CVA/TIA, GI Bleed, Hyperlipidemia, Myocardial Infarction ([place]) Additional Past Medical History / Comment(s): 07/27/17 FALL'LT HIP FX. 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 History of COVID-19, cervical cancer treated with radiation. No taking Eliquis due to bleeding issues in past. SBO 09/2023 Last Myocardial Infarction Date:: 2009 History of Any Multi-Drug Resistant Organisms: None Reported Past Surgical History: Heart Catheterization, Orthopedic Surgery, Tonsillectomy Additional Past Surgical History / Comment(s): ORIF RT ANKLE HAS PLATE. Past Anesthesia/Blood Transfusion Reactions: No Reported Reaction Smoking Status: Former smoker, Never smoker - Past Family History Mother Family Medical History: No Reported History Additional Family Medical History / Comment(s): FROM ANUERYSM Father Family Medical History: No Reported History Medications and Allergies Home Medications Medication Instructions Recorded Confirmed Type Amoxic-Pot Clav 875-125Mg 1 tab PO BID #20 tab 10/05/23 10/08/23 Rx [Augmentin 875-125] Aspirin 81 mg PO DAILY tab 10/05/23 10/08/23 Rx Atorvastatin [Lipitor] 20 mg PO HS tab 04/23/24 04/26/24 Rx Folic Acid 1 mg PO DAILY tab 10/05/23 10/08/23 Rx Lidocaine 4% Patch 1 patch TOPICAL DAILY #3 patch 10/05/23 10/08/23 Rx Metoprolol Tartrate [Lopressor] 50 mg PO TID tab 10/05/23 10/08/23 Rx Acetaminophen Tab [Tylenol] 650 mg PO Q6H PRN 10/08/23 10/08/23 History Allergies Allergy/AdvReac Type Severity Reaction Status Date / Time No Known Allergies Allergy Verified 10/08/23 15:24 Surgical - Exam Vital Signs Temp Pulse Resp BP Pulse Ox 98.3 F 150 H 22 168/109 94 L 10/08/23 14:57 10/08/23 14:57 10/08/23 14:57 10/08/23 14:57 10/08/23 14:57 - General well developed, well nourished, no distress - Eyes normal ocular movement, no icteric - ENT no hearing loss, no congestion - Neck no masses, trachea midline - Respiratory normal respiratory effort, clear to auscultation - Abdomen Abdomen: soft, non tender, no guarding, no rigid, no rebound - Integumentary no rash, no abnormal pigmentation - Neurologic no disoriented, no combative, memory loss - Psychiatric oriented to person, speech is normal Results - Labs 10/09/23 05:24 10/09/23 05:24 Abnormal Lab Results - Last 24 Hours (Table) 10/08/23 10/08/23 10/08/23 Range/Units 15:19 15:19 15:19 WBC 13.2 H (3.8-10.6) k/uL RBC 2.21 L (3.80-5.40) m/uL Hgb 6.8 L* (11.4-16.0) gm/dL Hct 21.7 L (34.0-46.0) % MCV (80.0-100.0) fL MCHC (31.0-37.0) g/dL RDW 15.6 H (11.5-15.5) % Neutrophils # 11.8 H (1.3-7.7) k/uL Lymphocytes # 0.9 L (1.0-4.8) k/uL Sodium 136 L (137-145) mmol/L Chloride (98-107) mmol/L Carbon Dioxide (22-30) mmol/L BUN 26 H (7-17) mg/dL Creatinine 1.72 H (0.52-1.04) mg/dL Glucose 206 H (74-99) mg/dL Plasma Lactic Acid Austin 3.5 H* (0.7-2.0) mmol/L AST (14-36) U/L ALT (4-34) U/L Total Protein 5.5 L (6.3-8.2) g/dL Albumin 2.7 L (3.5-5.0) g/dL Urine Appearance (Clear) Urine RBC (0-5) /hpf Urine WBC (0-5) /hpf Urine Bacteria (None) /hpf Stool Occult Blood (Negative) Crossmatch 10/08/23 10/08/23 10/08/23 Range/Units 15:19 16:04 16:31 WBC (3.8-10.6) k/uL RBC (3.80-5.40) m/uL Hgb (11.4-16.0) gm/dL Hct (34.0-46.0) % MCV (80.0-100.0) fL MCHC (31.0-37.0) g/dL RDW (11.5-15.5) % Neutrophils # (1.3-7.7) k/uL Lymphocytes # (1.0-4.8) k/uL Sodium (137-145) mmol/L Chloride (98-107) mmol/L Carbon Dioxide (22-30) mmol/L BUN (7-17) mg/dL Creatinine (0.52-1.04) mg/dL Glucose (74-99) mg/dL Plasma Lactic Acid [place] (0.7-2.0) mmol/L AST (14-36) U/L ALT (4-34) U/L Total Protein (6.3-8.2) g/dL Albumin (3.5-5.0) g/dL Urine Appearance Cloudy H (Clear) Urine RBC >182 H (0-5) /hpf Urine WBC >182 H (0-5) /hpf Urine Bacteria Many H (None) /hpf Stool Occult Blood Positive H (Negative) Crossmatch See Detail 10/09/23 10/09/23 Range/Units 05:24 05:24 WBC 14.0 H (3.8-10.6) k/uL RBC 2.60 L (3.80-5.40) m/uL Hgb 8.0 L (11.4-16.0) gm/dL Hct 26.3 L (34.0-46.0) % MCV 101.2 H (80.0-100.0) fL MCHC 30.4 L (31.0-37.0) g/dL RDW 16.4 H (11.5-15.5) % Neutrophils # 11.9 H (1.3-7.7) k/uL Lymphocytes # (1.0-4.8) k/uL Sodium (137-145) mmol/L Chloride 108 H (98-107) mmol/L Carbon Dioxide 19 L (22-30) mmol/L BUN 30 H (7-17) mg/dL Creatinine 2.13 H (0.52-1.04) mg/dL Glucose 192 H (74-99) mg/dL Plasma Lactic Acid [place] (0.7-2.0) mmol/L AST 64 H (14-36) U/L ALT 39 H (4-34) U/L Total Protein 5.2 L (6.3-8.2) g/dL Albumin 2.6 L (3.5-5.0) g/dL Urine Appearance (Clear) Urine RBC (0-5) /hpf Urine WBC (0-5) /hpf Urine Bacteria (None) /hpf Stool Occult Blood (Negative) Crossmatch Diabetes panel 10/08/23 10/09/23 Range/Units 15:19 05:24 Sodium 136 L 138 (137-145) mmol/L Potassium 4.9 5.0 (3.5-5.1) mmol/L Chloride 106 108 H (98-107) mmol/L Carbon Dioxide 23 19 L (22-30) mmol/L BUN 26 H 30 H (7-17) mg/dL Creatinine 1.72 H 2.13 H (0.52-1.04) mg/dL Glucose 206 H 192 H (74-99) mg/dL Calcium 8.9 8.6 (8.4-10.2) mg/dL AST 34 64 H (14-36) U/L ALT 23 39 H (4-34) U/L Alkaline Phosphatase 88 83 (38-126) U/L Total Protein 5.5 L 5.2 L (6.3-8.2) g/dL Albumin 2.7 L 2.6 L (3.5-5.0) g/dL Calcium panel 10/08/23 10/09/23 Range/Units 15:19 05:24 Calcium 8.9 8.6 (8.4-10.2) mg/dL Albumin 2.7 L 2.6 L (3.5-5.0) g/dL Pituitary panel 10/08/23 10/09/23 Range/Units 15:19 05:24 Sodium 136 L 138 (137-145) mmol/L Potassium 4.9 5.0 (3.5-5.1) mmol/L Chloride 106 108 H (98-107) mmol/L Carbon Dioxide 23 19 L (22-30) mmol/L BUN 26 H 30 H (7-17) mg/dL Creatinine 1.72 H 2.13 H (0.52-1.04) mg/dL Glucose 206 H 192 H (74-99) mg/dL Calcium 8.9 8.6 (8.4-10.2) mg/dL Adrenal panel 10/08/23 10/09/23 Range/Units 15:19 05:24 Sodium 136 L 138 (137-145) mmol/L Potassium 4.9 5.0 (3.5-5.1) mmol/L Chloride 106 108 H (98-107) mmol/L Carbon Dioxide 23 19 L (22-30) mmol/L BUN 26 H 30 H (7-17) mg/dL Creatinine 1.72 H 2.13 H (0.52-1.04) mg/dL Glucose 206 H 192 H (74-99) mg/dL Calcium 8.9 8.6 (8.4-10.2) mg/dL Total Bilirubin 0.8 1.2 (0.2-1.3) mg/dL AST 34 64 H (14-36) U/L ALT 23 39 H (4-34) U/L Alkaline Phosphatase 88 83 (38-126) U/L Total Protein 5.5 L 5.2 L (6.3-8.2) g/dL Albumin 2.7 L 2.6 L (3.5-5.0) g/dL - Imaging CT scan - abdomen: report reviewed, image reviewed CT scan - pelvis: image reviewed Assessment and Plan Assessment: Impression: Gross hematuria. Anemia. 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 Bilateral ureteral obstruction probably secondary to radiation scarring. Bilateral stents. Recommendations: The blood in the catheter is old blood. The abnormality on the CT scan is probably blood clot. She does have a stent in the right ureter of indeterminate time placement. This will have to be dealt with at a later date.
[2023-10-09] MEDS: SODIUM CHLORIDE 0.45% 1,000 ML IV SCH (13:04)
--- NOTE | 2023-10-09 13:24 | P.GSCN ---
History of Present Illness Consult date: 10/09/23 History of present illness: Patient well-known from recent hospitalization. CT of the abdomen pelvis reviewed demonstrating gallstones. No bowel obstruction. LFTs elevated consistent with likely biliary colic versus acute cholecystitis. Recommend ultrasound versus HIDA scan to identify acute cholecystitis. At the time of assessment, patient denied any abdominal pain. She had regular diet at bedside. Patient being admitted for atrial fibrillation with hematuria. Exam: Abdomen without peritonitis or tenderness. Incisions intact. Plan: 1. Will obtain HIDA scan and ultrasound for acute cholecystitis. 2. Presentation of recent abdominal pain unrelated to her most recent surgery of bowel obstruction Past Medical History Past Medical History: Atrial Fibrillation, Cancer, CVA/TIA, GI Bleed, Hyperlipidemia, Myocardial Infarction ([place]) Additional Past Medical History / Comment(s): 07/27/17 FALL'LT HIP FX. OTHER HX"BOARDERLINE DIABETIC- NO MEDS BUT CHECKS BS ONCE A DAY,CVA/TIA 2011 NO RE SIDUAL EEFECTS, RT ANKLE BROKEN-(SX DONE HAD PLATE), PAST STRESS TEST. History of COVID-19, cervical cancer treated with radiation. No taking Eliquis due to bleeding issues in past. SBO 09/2023 Last Myocardial Infarction Date:: 2009 History of Any Multi-Drug Resistant Organisms: None Reported Past Surgical History: Heart Catheterization, Orthopedic Surgery, Tonsillectomy Additional Past Surgical History / Comment(s): ORIF RT ANKLE HAS PLATE. Past Anesthesia/Blood Transfusion Reactions: No Reported Reaction Smoking Status: Former smoker, Never smoker - Past Family History Mother Family Medical History: No Reported History Additional Family Medical History / Comment(s): FROM ANUERYSM Father Family Medical History: No Reported History Medications and Allergies Home Medications Medication Instructions Recorded Confirmed Type Amoxic-Pot Clav 875-125Mg 1 tab PO BID #20 tab 10/05/23 10/08/23 Rx [Augmentin 875-125] RX: Aspirin 81 mg PO DAILY tab 10/05/23 10/08/23 Rx RX: Atorvastatin [Lipitor] 20 mg PO HS tab 10/05/23 10/08/23 Rx RX: Folic Acid 1 mg PO DAILY tab 10/05/23 10/08/23 Rx RX: Lidocaine 4% Patch 1 patch TOPICAL DAILY #3 patch 10/05/23 10/08/23 Rx RX: Metoprolol Tartrate [Lopressor] 50 mg PO TID tab 10/05/23 10/08/23 Rx Acetaminophen Tab [Tylenol] 650 mg PO Q6H PRN 10/08/23 10/08/23 History Allergies Allergy/AdvReac Type Severity Reaction Status Date / Time No Known Allergies Allergy Verified 10/08/23 15:24 Surgical - Exam Vital Signs Temp Pulse Resp BP Pulse Ox 98.3 F 150 H 22 168/109 94 L 10/08/23 14:57 10/08/23 14:57 10/08/23 14:57 10/08/23 14:57 10/08/23 14:57 Results - Labs 10/09/23 05:24 10/09/23 05:24 Abnormal Lab Results - Last 24 Hours (Table) 10/08/23 10/08/23 10/08/23 Range/Units 15:19 15:19 15:19 WBC 13.2 H (3.8-10.6) k/uL RBC 2.21 L (3.80-5.40) m/uL Hgb 6.8 L* (11.4-16.0) gm/dL Hct 21.7 L (34.0-46.0) % MCV (80.0-100.0) fL MCHC (31.0-37.0) g/dL RDW 15.6 H (11.5-15.5) % Neutrophils # 11.8 H (1.3-7.7) k/uL Lymphocytes # 0.9 L (1.0-4.8) k/uL Sodium 136 L (137-145) mmol/L Chloride (98-107) mmol/L Carbon Dioxide (22-30) mmol/L BUN 26 H (7-17) mg/dL Creatinine 1.72 H (0.52-1.04) mg/dL Glucose 206 H (74-99) mg/dL Plasma Lactic Acid Austin 3.5 H* (0.7-2.0) mmol/L AST (14-36) U/L ALT (4-34) U/L Total Protein 5.5 L (6.3-8.2) g/dL Albumin 2.7 L (3.5-5.0) g/dL Urine Appearance (Clear) Urine RBC (0-5) /hpf Urine WBC (0-5) /hpf Urine Bacteria (None) /hpf Stool Occult Blood (Negative) Crossmatch 10/08/23 10/08/23 10/08/23 Range/Units 15:19 16:04 16:31 WBC (3.8-10.6) k/uL RBC (3.80-5.40) m/uL Hgb (11.4-16.0) gm/dL Hct (34.0-46.0) % MCV (80.0-100.0) fL MCHC (31.0-37.0) g/dL RDW (11.5-15.5) % Neutrophils # (1.3-7.7) k/uL Lymphocytes # (1.0-4.8) k/uL Sodium (137-145) mmol/L Chloride (98-107) mmol/L Carbon Dioxide (22-30) mmol/L BUN (7-17) mg/dL Creatinine (0.52-1.04) mg/dL Glucose (74-99) mg/dL Plasma Lactic Acid Austin (0.7-2.0) mmol/L AST (14-36) U/L ALT (4-34) U/L Total Protein (6.3-8.2) g/dL Albumin (3.5-5.0) g/dL Urine Appearance Cloudy H (Clear) Urine RBC >182 H (0-5) /hpf Urine WBC >182 H (0-5) /hpf Urine Bacteria Many H (None) /hpf Stool Occult Blood Positive H (Negative) Crossmatch See Detail 10/09/23 10/09/23 Range/Units 05:24 05:24 WBC 14.0 H (3.8-10.6) k/uL RBC 2.60 L (3.80-5.40) m/uL Hgb 8.0 L (11.4-16.0) gm/dL Hct 26.3 L (34.0-46.0) % MCV 101.2 H (80.0-100.0) fL MCHC 30.4 L (31.0-37.0) g/dL RDW 16.4 H (11.5-15.5) % Neutrophils # 11.9 H (1.3-7.7) k/uL Lymphocytes # (1.0-4.8) k/uL Sodium (137-145) mmol/L Chloride 108 H (98-107) mmol/L Carbon Dioxide 19 L (22-30) mmol/L BUN 30 H (7-17) mg/dL Creatinine 2.13 H (0.52-1.04) mg/dL Glucose 192 H (74-99) mg/dL Plasma Lactic Acid Austin (0.7-2.0) mmol/L AST 64 H (14-36) U/L ALT 39 H (4-34) U/L Total Protein 5.2 L (6.3-8.2) g/dL Albumin 2.6 L (3.5-5.0) g/dL Urine Appearance (Clear) Urine RBC (0-5) /hpf Urine WBC (0-5) /hpf Urine Bacteria (None) /hpf Stool Occult Blood (Negative) Crossmatch Diabetes panel 10/08/23 10/09/23 Range/Units 15:19 05:24 Sodium 136 L 138 (137-145) mmol/L Potassium 4.9 5.0 (3.5-5.1) mmol/L Chloride 106 108 H (98-107) mmol/L Carbon Dioxide 23 19 L (22-30) mmol/L BUN 26 H 30 H (7-17) mg/dL Creatinine 1.72 H 2.13 H (0.52-1.04) mg/dL Glucose 206 H 192 H (74-99) mg/dL Calcium 8.9 8.6 (8.4-10.2) mg/dL AST 34 64 H (14-36) U/L ALT 23 39 H (4-34) U/L Alkaline Phosphatase 88 83 (38-126) U/L Total Protein 5.5 L 5.2 L (6.3-8.2) g/dL Albumin 2.7 L 2.6 L (3.5-5.0) g/dL Calcium panel 10/08/23 10/09/23 Range/Units 15:19 05:24 Calcium 8.9 8.6 (8.4-10.2) mg/dL Albumin 2.7 L 2.6 L (3.5-5.0) g/dL Pituitary panel 10/08/23 10/09/23 Range/Units 15:19 05:24 Sodium 136 L 138 (137-145) mmol/L Potassium 4.9 5.0 (3.5-5.1) mmol/L Chloride 106 108 H (98-107) mmol/L Carbon Dioxide 23 19 L (22-30) mmol/L BUN 26 H 30 H (7-17) mg/dL Creatinine 1.72 H 2.13 H (0.52-1.04) mg/dL Glucose 206 H 192 H (74-99) mg/dL Calcium 8.9 8.6 (8.4-10.2) mg/dL Adrenal panel 10/08/23 10/09/23 Range/Units 15:19 05:24 Sodium 136 L 138 (137-145) mmol/L Potassium 4.9 5.0 (3.5-5.1) mmol/L Chloride 106 108 H (98-107) mmol/L Carbon Dioxide 23 19 L (22-30) mmol/L BUN 26 H 30 H (7-17) mg/dL Creatinine 1.72 H 2.13 H (0.52-1.04) mg/dL Glucose 206 H 192 H (74-99) mg/dL Calcium 8.9 8.6 (8.4-10.2) mg/dL Total Bilirubin 0.8 1.2 (0.2-1.3) mg/dL AST 34 64 H (14-36) U/L ALT 23 39 H (4-34) U/L Alkaline Phosphatase 88 83 (38-126) U/L Total Protein 5.5 L 5.2 L (6.3-8.2) g/dL Albumin 2.7 L 2.6 L (3.5-5.0) g/dL
--- NOTE | 2023-10-09 15:24 | US ---
EXAMINATION TYPE: US gallbladder DATE OF EXAM: 10/09/2023 COMPARISON: CT 10/08/2023 CLINICAL INDICATION: Female, 78 years old with history of Gallstones, abdominal pain; gallstones TECHNIQUE: Multiple sonographic images of the right upper quadrant are obtained. FINDINGS: EXAM MEASUREMENTS: Liver Length: 17.2 cm Gallbladder Wall: 0.2 cm CBD: 5.5 mm Right Kidney: 11.4 x 6.4 x 5.7 cm Pancreas: Tail obscured by overlying bowel gas Liver: appears wnl as visualized Gallbladder: Mildly hydropic with notable stones measuring up to 2.4 cm. A 1.6 cm calculus is located at the neck of the gallbladder. Evidence for sonographic Perea's sign: no CBD: appears wnl Right Kidney: Severe hydronephrosis and cortical thinning with stent noted. IMPRESSION: 1. Cholelithiasis with stones measuring up to 2.4 cm. A 1.6 cm stone is located at the neck of the ga llbladder. Mild hydropic change may reflect fasting state. If concern for early acute cholecystitis, HIDA scan can be considered. 2. No biliary ductal dilatation. 3. Severe right-sided hydronephrosis with severe cortical thinning, possibly chronic urinary obstruct ion and secondary renal atrophy. A stent is noted within the collecting system.
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
[2023-10-10] MEDS: METOPROLOL TARTRATE 50 MG TAB PO SCH (09:30)
[2023-10-10] MEDS: ACETAMINOPHEN TAB 325 MG TAB PO PRN (09:31)
[2023-10-10] MEDS: METOPROLOL TARTRATE 50 MG TAB PO STA (09:31)
--- NOTE | 2023-10-10 09:35 | P.PN ---
Subjective Progress Note Date: 10/10/23 the patient is in the hospital with anemia. She has had major bowel surgery. 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 She has right double-J catheter. The blood in the urine is old blood.her hemoglobin went from 927. She is given a unit of blood her hemoglobin is 8. The NORA globin today is pending. There is still old blood in the catheter. We will follow. Objective - Vital Signs Vital signs: Vital Signs Temp 97.1 F L 10/10/23 07:54 Pulse 115 H 10/10/23 08:08 Resp 19 10/10/23 07:54 BP 124/74 10/10/23 07:54 Pulse Ox 95 10/10/23 07:54 FiO2 Intake & Output 10/09/23 10/10/23 10/10/23 18:59 06:59 18:59 Output Total 120 20 Balance -120 -20 Output: Urine 120 20 Uretheral (Crockett) 20 20 Other: Voiding Method Indwelling Catheter Indwelling Catheter - Labs CBC & Chem 7: 10/09/23 05:24 10/09/23 05:24
--- NOTE | 2023-10-10 11:28 | P.PN ---
Subjective Progress Note Date: 10/10/23 HISTORY OF PRESENT ILLNESS: This is a 78-year-old female with a past medical history significant for no nischemic cardiomyopathy, CVA, mitral regurgitation, and persistent atrial fibrillation. Patient follows in the office with Dr. Montana. We have been asked to see the patient in consultation for A-fib with RVR. Patient examined at the bedside in the emergency room. Patient is a poor historian. There is no family present. Patient was recently hospitalized with a prolonged hospitalization from September 16, 2023 until October 05, 2023 for small bowel obstruction. The patient also was diagnosed with secondary peritonitis, acute/subacute CVA involving the left cerebellum, and silent aspiration during that hospitalization. She was discharged to [facility]. The patient was brought to the hospital secondary to hematuria noted in her Crockett catheter bag. Additionally the patient was found to be anemic with a hemoglobin of 6.8. Previous hemoglobin in the range of 912. Patient did receive 1 unit of packed RBCs. Repeat hemoglobin this morning is 8.0. EKG on admission reveals atrial fibrillation with RVR. Patient was started on IV Cardizem which has since been discontinued. Bedside telemetry reveals atrial fibrillation with a heart rate around 110. DIAGNOSTICS: - EKG reveals atrial fibrillation with RVR. Heart rate 132. - Chest xray: Moderate acute cardiopulmonary disease essentially unchanged compared to previous. Findings suggest CHF although bibasilar pneumonia with small effusions not excluded. - Laboratory data: WBC 14.0. Hemoglobin 8.0. Platelet count 258. Sodium 138. Potassium 5.0. BUN 30. Creatinine 2.13. Lactic acid 3.5. Troponin negative x 1. - Current home cardiac medications include aspirin 81 mg daily, Lipitor 20 mg at night, metoprolol titrate 50 mg 3 times a day. - Most recent echocardiogram obtained on 10/04/2023 revealed ejection fraction 50%, mild aortic regurgitation, moderate TR, moderate MR, trace pulmonic regurgitation, inferior wall hypokinesis. - Cardiac catheterization history: 2016 revealing normal coronary arteries 10/09 Patient is seen today in follow-up on the cardiac stepdown unit. Patient remains in atrial fibrillation with heart rate running about 115, blood pressure 124/74, pulse ox 95% on 2 L nasal cannula. She is currently maintained on Lopressor 25 mg 3 times daily. Repeat blood work reveals hemoglobin of 8 and she is status post transfusion of 1 unit of packed RBCs. WBC 14, platelet count 258. CO2 is 19, BUN 30 and creatinine 2.13. Patient has been seen by urology. PHYSICAL EXAM: VITAL SIGNS: Reviewed. GENERAL: Well-developed in no acute distress. HEENT: Head is normocephalic. Pupils are equal, round. Sclerae anicteric. Mucous membranes of the mouth are moist. Neck supple. No JVD or thyromegaly LUNGS: Respirations even and unlabored. Lungs essentially clear to auscultation bilaterally. HEART: Tachycardic. Irregular rate and rhythm. S1 and S2 heard. 3/6 systolic murmur at the apex ABDOMEN: Soft. Nondistended. Nontender. EXTREMITIES: Normal range of motion. No clubbing or cyanosis. Peripheral pulses intact. Trace bilateral lower extremity edema. Wound noted to left anterior thigh. NEUROLOGIC: Awake and alert. ASSESSMENT: Hematuria Acute anemia, hemoglobin 6.8, previously 912 during recent hospitalization Persistent atrial fibrillation with RVR, not anticoagulated on an outpatient basis secondary to significant vaginal bleeding/endometrial adenocarcinoma Recent hospitalization for small bowel obstruction secondary to frozen abdomen and pelvic malignancy. Pathology positive for endometrial adenocarcinoma. Patient also had secondary peritonitis. History of recent acute/subacute CVA involving left cerebellum, 09/2023 History of silent aspiration during hospitalization 09/2023 History of nonischemic cardiomyopathy Normal coronary arteries, per cardiac catheterization 2016 Moderate pulmonary hypertension Moderate to severe mitral regurgitation Current kidney disease History of CVA PLAN: No need to repeat echocardiogram as this was performed earlier this month Continue metoprolol and increase to 50 mg twice daily Continue current dose of oral Cardizem 30 mg 3 times daily Continue telemetry monitoring Patient is not anticoagulated on an outpatient basis secondary to significant vaginal bleeding/endometrial adenocarcinoma Urology following for hematuria Further recommendations pending patient course Nurse practitioner note has been reviewed by physician. Signing provider agrees with the documented findings, assessment, and plan of care documented by STULL INSTALLER as a scribe. Objective - Vital Signs Vital signs: Vital Signs Temp 97.1 F L 10/10/23 07:54 Pulse 115 H 10/10/23 08:08 Resp 19 10/10/23 07:54 BP 124/74 10/10/23 07:54 Pulse Ox 95 10/10/23 07:54 FiO2 Intake & Output 10/09/23 10/10/23 10/10/23 18:59 06:59 18:59 Output Total 120 20 Balance -120 -20 Output: Urine 120 20 Uretheral (Crockett) 20 20 Other: Voiding Method Indwelling Catheter Indwelling Catheter - Labs CBC & Chem 7: 10/09/23 05:24 10/09/23 05:24
--- NOTE | 2023-10-10 12:35 | P.PN ---
Subjective Progress Note Date: 10/10/23 patient still has some minimal clearance of pain. She has a HIDA scan apparently pending. Her liver metastasis slightly increased. On exam vital signs are stable. Abdomen soft. There is minimal right quadrant tenderness. Possible central choledocholithiasis. Patient is scheduled for HIDA scan. Dr. Merino we'll reassess the patient in the a.m. Objective - Vital Signs Vital signs: Vital Signs Temp 97.6 F 10/10/23 12:18 Pulse 72 10/10/23 12:18 Resp 16 10/10/23 12:18 BP 128/88 10/10/23 12:18 Pulse Ox 100 10/10/23 12:18 FiO2 Intake & Output 10/09/23 10/10/23 10/10/23 18:59 06:59 18:59 Intake Total 480 Output Total 120 Balance -120 480 Intake: Oral 480 Output: Urine 120 Uretheral (Crockett) 20 Other: Voiding Method Indwelling Catheter Indwelling Catheter - Labs CBC & Chem 7: 10/09/23 05:24 10/09/23 05:24 Labs: Microbiology - Last 24 Hours (Table) 10/08/23 22:15 Urine Culture - Final Urine,Voided Bryanna albicans
[2023-10-10 15:03] LABS: Anisocytosis Slight; HCT 23.4 % (34.0-46.0); HGB 7.2 gm/dL (11.4-16.0); Hypochromasia Moderate; MCH 30.9 pg (25.0-35.0); MCHC 30.8 g/dL (31.0-37.0); MCV 100.4 fL (80.0-100.0); Macrocytosis Slight; Mean Platelet Volume 8.2; Platelet Count 238 k/uL (150-450); RBC 2.33 m/uL (3.80-5.40); RDW 16.8 % (11.5-15.5); WBC 16.4 k/uL (3.8-10.6)
[2023-10-10 15:24] LABS: African American GFR (CKD) 15 (>60 ml/min/1.73 sqM); Anion Gap 10 mmol/L; Blood Urea Nitrogen 40 mg/dL (7-17); Carbon Dioxide 19 mmol/L (22-30); Chloride 108 mmol/L (98-107); Glucose 208 mg/dL (74-99); Non-African American GFR(CKD) 13 (>60 ml/min/1.73 sqM); Potassium 5.1 mmol/L (3.5-5.1); Sodium 137 mmol/L (137-145)
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
[2023-10-10] MEDS: AMOXIC-POT CLAV 875-125MG 1 EACH TAB PO SCH (16:18)
[2023-10-10] MEDS: HYDROmorphone 1 MG/ML 1 ML SYRINGE IVP PRN (22:07)
[2023-10-11] MEDS: LACTATED RINGERS 1,000 ML IV ONE (07:00)
[2023-10-11 09:26] LABS: Anisocytosis Slight; Basophils % (A) 0 %; Eosinophils % (A) 0 %; HCT 26.1 % (34.0-46.0); HGB 7.8 gm/dL (11.4-16.0); Hypochromasia Marked; Lymphocytes # (A) 0.5 k/uL (1.0-4.8); Lymphocytes % (A) 3 %; MCH 31.1 pg (25.0-35.0); MCHC 29.9 g/dL (31.0-37.0); MCV 103.9 fL (80.0-100.0); Macrocytosis Moderate; Mean Platelet Volume 9.1; Monocytes % (A) 6 %; Neutrophils # (A) 14.7 k/uL (1.3-7.7); Neutrophils % (A) 90 %; Platelet Count 238 k/uL (150-450); RBC 2.51 m/uL (3.80-5.40); RDW 17.5 % (11.5-15.5); WBC 16.4 k/uL (3.8-10.6)
[2023-10-11 09:35] LABS: ALT 52 U/L (4-34); AST 46 U/L (14-36); African American GFR (CKD) 14 (>60 ml/min/1.73 sqM); Albumin 2.4 g/dL (3.5-5.0); Alkaline Phosphatase 84 U/L (38-126); Anion Gap 13 mmol/L; Blood Urea Nitrogen 42 mg/dL (7-17); Calcium 8.1 mg/dL (8.4-10.2); Carbon Dioxide 18 mmol/L (22-30); Chloride 107 mmol/L (98-107); Glucose 166 mg/dL (74-99); Non-African American GFR(CKD) 12 (>60 ml/min/1.73 sqM); Potassium 5.3 mmol/L (3.5-5.1); Sodium 138 mmol/L (137-145); Total Bilirubin 0.9 mg/dL (0.2-1.3)
--- NOTE | 2023-10-11 12:16 | P.NPCON ---
History of Present Illness - Reason for Consult acute renal failure - History of Present Illness patient is a 78-year-old female with history of CVA/TIA, chronic A. fib, known uterine cancer. Status post recent hospitalization on September about 4 weeks ago with abdominal pain. Status post robotic-assisted decompression enterostomy and closure of small bowel and small bowel external bypass on 09/24/2023. was found to have frozen abdomen due to underlying malignancy and previous surgery. Patient is admitted again with complaints of abdominal pain. CT abdomen shows distended bladder with gallstones. Patient has severe right hydronephrosis with moderate left hydronephrosis. Right ureteral stent is noted. bilateral pleural effusions noted as well. serum creatinine was 1.7 on admission and increased to 3.4 today.previous creatinine 1.0 on 10/07/2023. Patient did have acute kidney injury with peak creatinine of about 1.7 during her last hospitalization. No hypotension documented this admission. Patient has an indwelling Crockett catheter. Poor urine output noted. currently maintained on half normal saline at 50 mL an hour. UA shows more than 182 WBCs. Stool for occult blood is positive. Hemoglobin 6.8 on initial admission. Review of Systems as per HPI Past Medical History Past Medical History: Atrial Fibrillation, Cancer, CVA/TIA, GI Bleed, Hyperlipidemia, Myocardial Infarction ([place]) Additional Past Medical History / Comment(s): 07/27/17 FALL'LT HIP FX. 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 History of COVID-19, cervical cancer treated with radiation. No taking Eliquis due to bleeding issues in past. SBO 09/2023 Last Myocardial Infarction Date:: 2009 History of Any Multi-Drug Resistant Organisms: None Reported Past Surgical History: Heart Catheterization, Orthopedic Surgery, Tonsillectomy Additional Past Surgical History / Comment(s): ORIF RT ANKLE HAS PLATE. Past Anesthesia/Blood Transfusion Reactions: No Reported Reaction Smoking Status: Former smoker, Never smoker - Past Family History Mother Family Medical History: No Reported History Additional Family Medical History / Comment(s): FROM ANUERYSM Father Family Medical History: No Reported History Medications and Allergies Home Medications Medication Instructions Recorded Confirmed Type Amoxic-Pot Clav 875-125Mg 1 tab PO BID #20 tab 10/05/23 10/08/23 Rx [Augmentin 875-125] Aspirin 81 mg PO DAILY tab 10/05/23 10/08/23 Rx Atorvastatin [Lipitor] 20 mg PO HS tab 10/05/23 10/08/23 Rx Folic Acid 1 mg PO DAILY tab 10/05/23 10/08/23 Rx Lidocaine 4% Patch 1 patch TOPICAL DAILY #3 patch 10/05/23 10/08/23 Rx Metoprolol Tartrate [Lopressor] 50 mg PO TID tab 10/05/23 10/08/23 Rx Acetaminophen Tab [Tylenol] 650 mg PO Q6H PRN 10/08/23 10/08/23 History Allergies Allergy/AdvReac Type Severity Reaction Status Date / Time No Known Allergies Allergy Verified 10/08/23 15:24 Physical Exam Vitals: Vital Signs Temp Pulse Resp BP Pulse Ox 10/11/23 10:48 97.5 F L 107 H 14 116/71 97 10/11/23 08:00 97.5 F L 122 H 16 127/72 95 10/11/23 04:00 130 H 16 112/75 99 10/11/23 00:00 88 18 130/82 98 10/10/23 20:00 97.2 F L 100 17 112/74 99 10/10/23 17:40 112/74 10/10/23 16:06 97.4 F L 97 17 120/81 99 10/10/23 12:18 97.6 F 72 16 128/88 100 Intake and Output 10/10/23 10/11/23 10/11/23 22:59 06:59 14:59 Output Total 10 Balance -10 Output: Urine 10 Other: Voiding Method Indwelling Catheter Indwelling Catheter Indwelling Catheter patient is sleeping, arousable but does not communicate much. She is comfortable. Examination of the heart S1 and S2 Examination of the lungs bilateral breath sounds are heard Abdomen is soft with tenderness Examination of lower extremity shows edema 1+ bilaterally Results - Lab Results Most recent lab results Calcium 8.1 mg/dL (8.4-10.2) L 10/11/23 07:41 Magnesium 1.9 mg/dL (1.6-2.3) 10/09/23 05:24 10/11/23 07:41 10/11/23 07:41 Assessment and Plan Assessment: 1. Acute kidney injury, obstructive uropathy, oliguric with computed tomography scan showing bilateral hydronephrosis. Currently with indwelling Crockett catheter. Urology will be consult it 2. acute blood loss anemia with stool positive for occult blood and hematuria noted. 3. Recent small bowel obstruction status post Robotic-assisted da Radha Xi laparoscopic decompressive enterostomy with closure small bowel, proximal ileum and Robotic-assisted da Radha Xi laparoscopic small bowel external bypass proximal ileum to mid ileum on September 24, 2023. 4. Cholecystitis with multiple gallstones 5. pyuria with urine culture growing Bryanna Plan: consult urology Overall prognosis is guarded. Patient is not an ideal candidate for renal replacement therapy. Agree with further discussion regarding code status.
[2023-10-11 12:20] VITALS: BMI 29.2
--- NOTE | 2023-10-11 13:13 | P.PN ---
Subjective Progress Note Date: 10/11/23 CHIEF COMPLAINT: Gallstones HISTORY OF PRESENT ILLNESS: The patient is a 78-year-old female readmitted due to hematuria and incidental finding of gallstones. She is resting comfortably. Overnight, patient had troubles with abdominal pain earlier this morning. This afternoon, she is resting comfortably. ROS: No reports of nausea and vomiting. Having bowel movements. No fevers or chills. No new chest pain. No productive sputum PHYSICAL EXAM: VITAL SIGNS: Reviewed CONSTITUTIONAL: Well developed and in no acute distress. EYES: Conjuctivae without sclera icterus. Extraocular movements grossly intact. HEAD, EARS, NOSE, THROAT: Moist buccal mucosa. Head is atraumatic, normocephalic. Hears conversational speech. No nasal drainage. RESPIRATORY: Non-labored respirations and equal bilateral excursions. CARDIOVASCULAR: Palpable 2+ radial pulses. ABDOMEN: No peritonitis MUSCULOSKELETAL: No gross deformity of the lower extremities noted. No clubbing. No cyanosis. SKIN: Good skin turgor. Well perfused. NEUROLOGIC: Cranial nerves II through XII grossly intact. No focal or latera lizing signs. PSYCH: Alert to self. : Has gross hematuria with Crockett catheter CLINICAL LABS: Reviewed. WBC trending upward over 16,000, leukocytosis. Acute renal failure, creatinine elevated 2.1-3.4 STUDIES: Ultrasound report independently reviewed demonstrates over 2 cm gallstone with impacted gallbladder of the infundibulum and risk for acute cholecystitis. ASSESSMENT: 1. Gallstones with acute cholecystitis 2. Acute renal failure 3. Endometrial cancer, active PLAN: 1. HIDA scan pending to assess for acute cholecystitis and need for cholecystostomy tube. 2. Recommend antibiotics in the interim 3. Patient is high surgical risk for any surgical intervention at this time Objective - Vital Signs Vital signs: Vital Signs Temp 97.5 F L 10/11/23 10:48 Pulse 107 H 10/11/23 10:48 Resp 14 10/11/23 10:48 BP 116/71 10/11/23 10:48 Pulse Ox 97 10/11/23 10:48 FiO2 Intake & Output 10/10/23 10/11/23 10/11/23 18:59 06:59 18:59 Intake Total 660 Output Total 45 10 Balance 615 -10 Weight 89.811 kg Intake: Oral 660 Output: Urine 45 10 Other: Voiding Method Indwelling Catheter Indwelling Catheter Indwelling Catheter - Labs CBC & Chem 7: 10/11/23 07:41 10/11/23 07:41 Labs: Abnormal Lab Results - Last 24 Hours (Table) 10/10/23 10/10/23 10/11/23 Range/Units 14:15 14:15 07:41 WBC 16.4 H 16.4 H (3.8-10.6) k/uL RBC 2.33 L 2.51 L (3.80-5.40) m/uL Hgb 7.2 L 7.8 L (11.4-16.0) gm/dL Hct 23.4 L 26.1 L (34.0-46.0) % MCV 100.4 H 103.9 H (80.0-100.0) fL MCHC 30.8 L 29.9 L (31.0-37.0) g/dL RDW 16.8 H 17.5 H (11.5-15.5) % Neutrophils # 14.7 H (1.3-7.7) k/uL Lymphocytes # 0.5 L (1.0-4.8) k/uL Potassium (3.5-5.1) mmol/L Chloride 108 H (98-107) mmol/L Carbon Dioxide 19 L (22-30) mmol/L BUN 40 H (7-17) mg/dL Creatinine 3.21 H (0.52-1.04) mg/dL Glucose 208 H (74-99) mg/dL Calcium 8.0 L (8.4-10.2) mg/dL AST (14-36) U/L ALT (4-34) U/L Total Protein (6.3-8.2) g/dL Albumin (3.5-5.0) g/dL 10/11/23 Range/Units 07:41 WBC (3.8-10.6) k/uL RBC (3.80-5.40) m/uL Hgb (11.4-16.0) gm/dL Hct (34.0-46.0) % MCV (80.0-100.0) fL MCHC (31.0-37.0) g/dL RDW (11.5-15.5) % Neutrophils # (1.3-7.7) k/uL Lymphocytes # (1.0-4.8) k/uL Potassium 5.3 H (3.5-5.1) mmol/L Chloride (98-107) mmol/L Carbon Dioxide 18 L (22-30) mmol/L BUN 42 H (7-17) mg/dL Creatinine 3.40 H (0.52-1.04) mg/dL Glucose 166 H (74-99) mg/dL Calcium 8.1 L (8.4-10.2) mg/dL AST 46 H (14-36) U/L ALT 52 H (4-34) U/L Total Protein 5.0 L (6.3-8.2) g/dL Albumin 2.4 L (3.5-5.0) g/dL Microbiology - Last 24 Hours (Table) 10/08/23 22:05 Blood Culture - Preliminary Blood 10/08/23 22:18 Blood Culture - Preliminary Blood 10/08/23 22:15 Urine Culture - Final Urine,Voided Bryanna albicans
--- NOTE | 2023-10-11 14:09 | P.PN ---
Subjective HISTORY OF PRESENT ILLNESS: This is a 78-year-old female with a past medical history significant for nonischemic cardiomyopathy, CVA, mitral regurgitation, and persistent atrial fibrillation. Patient follows in the office with Dr. Montana. We have been asked to see the patient in consultation for A-fib with RVR. Patient examined at the bedside in the emergency room. Patient is a poor historian. There is no family present. Patient was recently hospitalized with a prolonged hospitalization from September 16, 2023 until October 05, 2023 for small bowel obstruction. The patient also was diagnosed with secondary peritonitis, acute/subacute CVA involving the left cerebellum, and silent aspiration during that hospitalization. She was discharged to [facility]. The patient was brought to the hospital secondary to hematuria noted in her Crockett catheter bag. Additionally the patient was found to be anemic with a hemoglobin of 6.8. Previous hemoglobin in the range of 912. Patient did receive 1 unit of packed RBCs. Repeat hemogl obin this morning is 8.0. EKG on admission reveals atrial fibrillation with RVR. Patient was started on IV Cardizem which has since been discontinued. Bedside telemetry reveals atrial fibrillation with a heart rate around 110. DIAGNOSTICS: - EKG reveals atrial fibrillation with RVR. Heart rate 132. - Chest xray: Moderate acute cardiopulmonary disease essentially unchanged compared to previous. Findings suggest CHF although bibasilar pneumonia with small effusions not excluded. - Laboratory data: WBC 14.0. Hemoglobin 8.0. Platelet count 258. Sodium 138. Potassium 5.0. BUN 30. Creatinine 2.13. Lactic acid 3.5. Troponin negative x 1. - Current home cardiac medications include aspirin 81 mg daily, Lipitor 20 mg at night, metoprolol titrate 50 mg 3 times a day. - Most recent echocardiogram obtained on 10/04/2023 revealed ejection fraction 50%, mild aortic regurgitation, moderate TR, moderate MR, trace pulmonic regurgitation, inferior wall hypokinesis. - Cardiac catheterization history: 2016 revealing normal coronary arteries 10/09 Patient is seen today in follow-up on the cardiac stepdown unit. Patient remains in atrial fibrillation with heart rate running about 115, blood pressure 124/74, pulse ox 95% on 2 L nasal cannula. She is currently maintained on Lopressor 25 mg 3 times daily. Repeat blood work reveals hemoglobin of 8 and she is status post transfusion of 1 unit of packed RBCs. WBC 14, platelet count 258. CO2 is 19, BUN 30 and creatinine 2.13. Patient has been seen by urology. 10/11/2023 Patient examined this morning at the bedside. Patient is somewhat lethargic at the time of examination. She denies chest pain or pressure. She denies shortness of breath. Remote telemetry reveals atrial fibrillation with controlled ventricular rate. Patient has an indwelling urinary catheter with continued hematuria. PHYSICAL EXAM: VITAL SIGNS: Reviewed. GENERAL: Well-developed in no acute distress. NECK: Supple. No JVD or thyromegaly LUNGS: Respirations even and unlabored. Lungs essentially clear to auscultation bilaterally. HEART: Irregular rate and rhythm. S1 and S2 heard. Systolic murmur noted EXTREMITIES: Normal range of motion. No clubbing or cyanosis. Peripheral pulses intact. Trace bilateral lower extremity edema ASSESSMENT: Hematuria Acute anemia, hemoglobin 6.8, previously 912 during recent hospitalization Persistent atrial fibrillation with RVR, not anticoagulated on an outpatient basis secondary to significant vaginal bleeding/endometrial adenocarcinoma Recent hospitalization for small bowel obstruction secondary to frozen abdomen and pelvic malignancy. Pathology positive for endometrial adenocarcinoma. Patient also had secondary peritonitis. History of recent acute/subacute CVA involving left cerebellum, 09/2023 History of silent aspiration during hospitalization 09/2023 History of nonischemic cardiomyopathy Normal coronary arteries, per cardiac catheterization 2016 Moderate pulmonary hypertension Moderate to severe mitral regurgitation Chronic kidney disease History of CVA PLAN: Continue current cardiac medications Recommend primary medicine to address CODE STATUS Continue telemetry monitoring Patient is not anticoagulated on an outpatient basis secondary to significant vaginal bleeding/endometrial adenocarcinoma No further inpatient recommendations from a cardiac standpoint We will sign off. Please reconsult if needed. Nurse practitioner note has been reviewed by physician. Signing provider agrees with the documented findings, assessment, and plan of care documented by SERVICE TECH/WELDER as a scribe. Objective - Vital Signs Vital signs: Vital Signs Temp 97.5 F L 10/11/23 10:48 Pulse 107 H 10/11/23 10:48 Resp 14 10/11/23 10:48 BP 116/71 10/11/23 10:48 Pulse Ox 97 10/11/23 10:48 FiO2 Intake & Output 10/10/23 10/11/23 10/11/23 18:59 06:59 18:59 Intake Total 660 Output Total 45 10 Balance 615 -10 Weight 89.811 kg Intake: Oral 660 Output: Urine 45 10 Other: Voiding Method Indwelling Catheter Indwelling Catheter Indwelling Catheter - Labs CBC & Chem 7: 10/11/23 07:41 10/11/23 07:41 Labs: Abnormal Lab Results - Last 24 Hours (Table) 10/10/23 10/10/23 10/11/23 Range/Units 14:15 14:15 07:41 WBC 16.4 H 16.4 H (3.8-10.6) k/uL RBC 2.33 L 2.51 L (3.80-5.40) m/uL Hgb 7.2 L 7.8 L (11.4-16.0) gm/dL Hct 23.4 L 26.1 L (34.0-46.0) % MCV 100.4 H 103.9 H (80.0-100.0) fL MCHC 30.8 L 29.9 L (31.0-37.0) g/dL RDW 16.8 H 17.5 H (11.5-15.5) % Neutrophils # 14.7 H (1.3-7.7) k/uL Lymphocytes # 0.5 L (1.0-4.8) k/uL Potassium (3.5-5.1) mmol/L Chloride 108 H (98-107) mmol/L Carbon Dioxide 19 L (22-30) mmol/L BUN 40 H (7-17) mg/dL Creatinine 3.21 H (0.52-1.04) mg/dL Glucose 208 H (74-99) mg/dL Calcium 8.0 L (8.4-10.2) mg/dL AST (14-36) U/L ALT (4-34) U/L Total Protein (6.3-8.2) g/dL Albumin (3.5-5.0) g/dL 10/11/23 Range/Units 07:41 WBC (3.8-10.6) k/uL RBC (3.80-5.40) m/uL Hgb (11.4-16.0) gm/dL Hct (34.0-46.0) % MCV (80.0-100.0) fL MCHC (31.0-37.0) g/dL RDW (11.5-15.5) % Neutrophils # (1.3-7.7) k/uL Lymphocytes # (1.0-4.8) k/uL Potassium 5.3 H (3.5-5.1) mmol/L Chloride (98-107) mmol/L Carbon Dioxide 18 L (22-30) mmol/L BUN 42 H (7-17) mg/dL Creatinine 3.40 H (0.52-1.04) mg/dL Glucose 166 H (74-99) mg/dL Calcium 8.1 L (8.4-10.2) mg/dL AST 46 H (14-36) U/L ALT 52 H (4-34) U/L Total Protein 5.0 L (6.3-8.2) g/dL Albumin 2.4 L (3.5-5.0) g/dL Microbiology - Last 24 Hours (Table) 10/08/23 22:05 Blood Culture - Preliminary Blood 10/08/23 22:18 Blood Culture - Preliminary Blood 10/08/23 22:15 Urine Culture - Final Urine,Voided Bryanna albicans
[2023-10-11] MEDS ORDERED: FLUCONAZOLE IN NACL,ISO-OSM 100 MG in SALINE 1 50ML.BAG IVPB STA (16:06)
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
--- NOTE | 2023-10-11 16:51 | P.PN ---
Subjective Progress Note Date: 10/11/23 This am catheter with minimal drainage, evidence of gross hematuria, unable to irrigate catheter, hgb is stable at 7.8. Objective - Vital Signs Vital signs: Vital Signs Temp 97.5 F L 10/11/23 10:48 Pulse 107 H 10/11/23 10:48 Resp 14 10/11/23 10:48 BP 116/71 10/11/23 10:48 Pulse Ox 97 10/11/23 10:48 FiO2 Intake & Output 10/10/23 10/11/23 10/11/23 18:59 06:59 18:59 Intake Total 660 Output Total 45 10 Balance 615 -10 Weight 89.811 kg Intake: Oral 660 Output: Urine 45 10 Other: Voiding Method Indwelling Catheter Indwelling Catheter Indwelling Catheter - Constitutional General appearance: Present: mild distress - Gastrointestinal General gastrointestinal: Present: soft, tenderness (mild lower quadrant ). Absent: distended - Labs CBC & Chem 7: 10/11/23 07:41 10/11/23 07:41 Labs: Abnormal Lab Results - Last 24 Hours (Table) 10/11/23 10/11/23 Range/Units 07:41 07:41 WBC 16.4 H (3.8-10.6) k/uL RBC 2.51 L (3.80-5.40) m/uL Hgb 7.8 L (11.4-16.0) gm/dL Hct 26.1 L (34.0-46.0) % MCV 103.9 H (80.0-100.0) fL MCHC 29.9 L (31.0-37.0) g/dL RDW 17.5 H (11.5-15.5) % Neutrophils # 14.7 H (1.3-7.7) k/uL Lymphocytes # 0.5 L (1.0-4.8) k/uL Potassium 5.3 H (3.5-5.1) mmol/L Carbon Dioxide 18 L (22-30) mmol/L BUN 42 H (7-17) mg/dL Creatinine 3.40 H (0.52-1.04) mg/dL Glucose 166 H (74-99) mg/dL Calcium 8.1 L (8.4-10.2) mg/dL AST 46 H (14-36) U/L ALT 52 H (4-34) U/L Total Protein 5.0 L (6.3-8.2) g/dL Albumin 2.4 L (3.5-5.0) g/dL Microbiology - Last 24 Hours (Table) 10/08/23 22:05 Blood Culture - Preliminary Blood 10/08/23 22:18 Blood Culture - Preliminary Blood Assessment and Plan Assessment: 78 yo with hx of gross hematuria, Hx of retained stent and radiation for cervical cancer. cathtere appears to clot of this am, her hgb is stable today. Patient had multiple ongoing issues, including uncontrolled a fib, she is unlikely to tolerate cysto in the OR to further evaluate the bladder, at this point recommend conservative manager assembly for her gross hematuria -Recommned upsizing edward catheter to 20 Fr and irrigate edward as needed -Well reassess tomorrow
[2023-10-11] MEDS: FLUCONAZOLE IVPB SCH ×2 (18:21→21:50)
[2023-10-11] MEDS: SALINE IVPB SCH (18:21)
[2023-10-11] MEDS: NACL ISO OSM IVPB SCH ×2 (18:21→21:50)
--- NOTE | 2023-10-12 11:03 | P.PN ---
Subjective Progress Note Date: 10/12/23 Principal diagnosis: Patient seen and evaluated she reports they are not getting out of bed. She wants to go home. She denies any abdominal pain. Patient still has gross hematuria. Plan includes physical therapy and Occupational Therapy. HIDA scan was ordered for acute cholecystitis. Objective - Vital Signs Vital signs: Vital Signs Temp 97.7 F 10/12/23 09:11 Pulse 136 H 10/12/23 09:15 Resp 20 10/12/23 09:15 BP 119/77 10/12/23 09:11 Pulse Ox 94 L 10/12/23 09:11 FiO2 Intake & Output 10/11/23 10/12/23 10/12/23 18:59 06:59 18:59 Output Total 450 Balance -450 Weight 89.811 kg Output: Urine 450 Other: Voiding Method Indwelling Catheter Indwelling Catheter Indwelling Catheter - Labs CBC & Chem 7: 10/11/23 07:41 10/11/23 07:41 Labs: Microbiology - Last 24 Hours (Table) 10/08/23 22:05 Blood Culture - Preliminary Blood 10/08/23 22:18 Blood Culture - Preliminary Blood
[2023-10-12 11:29] LABS: African American GFR (CKD) 14 (>60 ml/min/1.73 sqM); Anion Gap 8 mmol/L; Blood Urea Nitrogen 45 mg/dL (7-17); Calcium 8.1 mg/dL (8.4-10.2); Carbon Dioxide 21 mmol/L (22-30); Chloride 108 mmol/L (98-107); Glucose 152 mg/dL (74-99); Non-African American GFR(CKD) 12 (>60 ml/min/1.73 sqM); Potassium 5.1 mmol/L (3.5-5.1); Sodium 137 mmol/L (137-145)
[2023-10-12 11:31] LABS: Anisocytosis Slight; HCT 23.7 % (34.0-46.0); HGB 7.5 gm/dL (11.4-16.0); Hypochromasia Moderate; MCH 32.6 pg (25.0-35.0); MCHC 31.9 g/dL (31.0-37.0); MCV 102.2 fL (80.0-100.0); Macrocytosis Moderate; Mean Platelet Volume 9.1; Platelet Count 228 k/uL (150-450); RBC 2.32 m/uL (3.80-5.40); RDW 17.7 % (11.5-15.5)
--- NOTE | 2023-10-12 11:34 | P.PN ---
Subjective Progress Note Date: 10/12/[address] with gross hematuria, urine is mainly consistent with old blood. CBC is pending this morning Objective - Vital Signs Vital signs: Vital Signs Temp 97.7 F 10/12/23 09:11 Pulse 136 H 10/12/23 09:15 Resp 20 10/12/23 09:15 BP 119/77 10/12/23 09:11 Pulse Ox 94 L 10/12/23 09:11 FiO2 Intake & Output 10/11/23 10/12/23 10/12/23 18:59 06:59 18:59 Output Total 450 Balance -450 Weight 89.811 kg Output: Urine 450 Other: Voiding Method Indwelling Catheter Indwelling Catheter Indwelling Catheter - Constitutional General appearance: Present: no acute distress - Gastrointestinal General gastrointestinal: Present: soft. Absent: distended, tenderness - Labs CBC & Chem 7: 10/11/23 07:41 10/12/23 10:30 Labs: Abnormal Lab Results - Last 24 Hours (Table) 10/12/23 Range/Units 10:30 Chloride 108 H (98-107) mmol/L Carbon Dioxide 21 L (22-30) mmol/L BUN 45 H (7-17) mg/dL Creatinine 3.41 H (0.52-1.04) mg/dL Glucose 152 H (74-99) mg/dL Calcium 8.1 L (8.4-10.2) mg/dL Microbiology - Last 24 Hours (Table) 10/08/23 22:05 Blood Culture - Preliminary Blood 10/08/23 22:18 Blood Culture - Preliminary Blood Assessment and Plan Assessment: 78 yo with hx of gross hematuria, Hx of retained stent and radiation for cervical cancer. Catheter was exchanged to a 20 Turkmen Crockett catheter yesterday. Continues to have gross hematuria but urine mainly consistent of old blood. Patient has multiple ongoing medical issues, she is at high risk of any type of surgical intervention for her gross hematuria. Her hematuria is most likely secondary to radiation cystitis, at this point given the catheter is draining and hemoglobin has been stable for the past 24 to 48 hours I recommend continuing with the conservative management with a Crockett catheter and irrigating the catheter as needed -Irrigate catheter as needed -Well reassess tomorrow
--- NOTE | 2023-10-12 11:48 | CDI ---
Documentation Clarification Form Date: 10/12/2023 11:04:36 AM From: Philly Guzmán RN, CCDS Phone: [phone] Admit Date: 10/08/2023 07:35:00 PM Patient Name: Carli Higuera Visit Number: [id number] Discharge Date: ATTENTION: The Clinical Documentation Specialists (CDI) and [facility] Coding Staff appreciate your assistance in clarifying documentation. Please respond to the clarification below the line at the bottom and electronically sign. The CDI & [facility] Coding staff will review the response and follow-up if needed. Please note: Queries are made part of the Legal Health Record. If you have any questions, please contact the author of this message via ITS. Dr. Biju Sanabria Candiduria UTI is documented in the progress note on 10/11/23. For each diagnosis, documentation must be clear to determine if the condition was present at the time of the patients inpatient admission or developed during the hospital stay. Additional clarification regarding the Candiduria UTI is requested. History/Risk Factors: Clinical Indicators: 78-years- old female presenting to the emergency department with concerns for anemia. Patient complains of some mild discomfort of lower abdomen. 10/07 Urine Culture- Final: Bryanna Albicans 10/07 VS 168/109 150 22 98.3 94% RA 10/07 Labs: WBC 13.2, HGB 6.8, HGB 21.7, neutrophils 11.8, Na+ 136, BUN 26, CR 1.72, GFR 28, Lactic acid 3.5; UA: Urine WBC >183, Urine Bacteria Many; Stool occult blood - Positive Treatment: Diflucan 100 MG Once then 50 MG IVPB Daily 10/10 -10/11 Definition of Present on Admission (POA): A diagnosis present at the time the order for admission to inpatient status was written. Please clarify if the Candiduria UTI was POA [+ ] Y = Yes, the condition was present at the time of the order for inpatient admission with urine culture positive for Bryanna Albicans on 10/08/23. [ ] N = No, the condition was not present at the time of the order for inpatient admission. [ ] W = Clinically undetermined if the condition was present at the time of the order for inpatient admission. (Template Last Revised: August 2020) MTDD
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
--- NOTE | 2023-10-12 12:44 | P.EN ---
Advance care planning [October 11] I met with Mckenzie legal guardian. Patient's care was discussed length. Medical conditions updated. Did discuss the need for patient will be appropri ate for DNR. She will discuss this with her supervisor policy change clerks Sonya. And get back to us. Time spent about 25 minutes
[2023-10-12 13:01] LABS: Eosinophils # (M) 0.12 k/uL (0-0.7); Monocytes # (M) 0.12 k/uL (0-1.0); Myelocytes # (M) 0.12 k/uL (0); Myelocytes % 1 %; Neutrophils % (M) 92 %; Nucleated Red Blood Cells 1 /100 WBC (0-0); Total Cells Counted 200
[2023-10-12 13:02] LABS: Lymphocytes # (M) 0.59 k/uL (1.0-4.8); Neutrophils # (M) 10.86 k/uL (1.3-7.7); WBC 11.8 k/uL (3.8-10.6)
--- NOTE | 2023-10-12 19:32 | P.PN ---
Subjective Patient is seen for follow-up for acute kidney injury. She is much more awake today and tolerated oral intake quite well. Urine output slightly increased to 450 mL for 24 hours. Serum creatinine staying at 3.4 Objective - Vital Signs Vital signs: Vital Signs Temp 97.8 F 10/12/23 15:58 Pulse 86 10/12/23 15:58 Resp 20 10/12/23 15:58 BP 125/78 10/12/23 15:58 Pulse Ox 96 10/12/23 15:58 FiO2 Intake & Output 10/12/23 10/12/23 10/13/23 06:59 18:59 06:59 Intake Total 118 Output Total 450 300 Balance -450 -182 Intake: Oral 118 Output: Urine 450 300 Other: Voiding Method Indwelling Catheter Indwelling Catheter - Exam patient is awake, communicating normally. She is comfortable. Examination of the heart S1 and S2 Examination of the lungs bilateral breath sounds are heard Abdomen is soft with tenderness Examination of lower extremity shows edema 1+ bilaterally - Labs CBC & Chem 7: 10/12/23 10:30 10/12/23 10:30 Labs: Abnormal Lab Results - Last 24 Hours (Table) 10/12/23 10/12/23 Range/Units 10:30 10:30 WBC 11.8 H (3.8-10.6) k/uL RBC 2.32 L (3.80-5.40) m/uL Hgb 7.5 L (11.4-16.0) gm/dL Hct 23.7 L (34.0-46.0) % MCV 102.2 H (80.0-100.0) fL RDW 17.7 H (11.5-15.5) % Neutrophils # (Manual) 10.86 H (1.3-7.7) k/uL Lymphocytes # (Manual) 0.59 L (1.0-4.8) k/uL Myelocytes # (Manual) 0.12 H (0) k/uL Nucleated RBCs 1 H (0-0) /100 WBC Chloride 108 H (98-107) mmol/L Carbon Dioxide 21 L (22-30) mmol/L BUN 45 H (7-17) mg/dL Creatinine 3.41 H (0.52-1.04) mg/dL Glucose 152 H (74-99) mg/dL Calcium 8.1 L (8.4-10.2) mg/dL Microbiology - Last 24 Hours (Table) 10/08/23 22:05 Blood Culture - Preliminary Blood 10/08/23 22:18 Blood Culture - Preliminary Blood Assessment and Plan Assessment: 1. Acute kidney injury, obstructive uropathy, oliguric with computed tomography scan showing bilateral hydronephrosis. Currently with indwelling Crockett catheter. Urine output slightly improved with flushing of Crockett catheter. Urology on consult. 2. acute blood loss anemia with stool positive for occult blood and hematuria noted. 3. Recent small bowel obstruction status post Robotic-assisted da Radha Xi laparoscopic decompressive enterostomy with closure small bowel, proximal ileum and Robotic-assisted da Radha Xi laparoscopic small bowel external bypass proximal ileum to mid ileum on September 24, 2023. 4. Cholecystitis with multiple gallstones 5. pyuria with urine culture growing Bryanna Plan: Continue with flushing of Crockett catheter Continue with IV fluids at 50 cc an hour Repeat labs in a.m. Overall prognosis is guarded.
--- NOTE | 2023-10-13 10:47 | P.PN ---
Subjective Edward catheter in place with gross hematuria, is mainly old blood, CBC is pending this morning Objective - Vital Signs Vital signs: Vital Signs Temp 97.9 F 10/13/23 08:00 Pulse 99 10/13/23 08:00 Resp 17 10/13/23 08:00 BP 113/74 10/13/23 08:00 Pulse Ox 95 10/13/23 09:29 FiO2 Intake & Output 10/12/23 10/13/23 10/13/23 18:59 06:59 18:59 Intake Total 118 118 Output Total 300 430 Balance -182 -430 118 Intake: Oral 118 118 Output: Urine 300 430 Other: Voiding Method Indwelling Catheter Indwelling Catheter Indwelling Catheter - Constitutional General appearance: Present: no acute distress - Gastrointestinal General gastrointestinal: Present: soft. Absent: distended, tenderness - Labs CBC & Chem 7: 10/12/23 10:30 10/12/23 10:30 Labs: Abnormal Lab Results - Last 24 Hours (Table) 10/12/23 10/12/23 Range/Units 10:30 10:30 WBC 11.8 H (3.8-10.6) k/uL RBC 2.32 L (3.80-5.40) m/uL Hgb 7.5 L (11.4-16.0) gm/dL Hct 23.7 L (34.0-46.0) % MCV 102.2 H (80.0-100.0) fL RDW 17.7 H (11.5-15.5) % Neutrophils # (Manual) 10.86 H (1.3-7.7) k/uL Lymphocytes # (Manual) 0.59 L (1.0-4.8) k/uL Myelocytes # (Manual) 0.12 H (0) k/uL Nucleated RBCs 1 H (0-0) /100 WBC Chloride 108 H (98-107) mmol/L Carbon Dioxide 21 L (22-30) mmol/L BUN 45 H (7-17) mg/dL Creatinine 3.41 H (0.52-1.04) mg/dL Glucose 152 H (74-99) mg/dL Calcium 8.1 L (8.4-10.2) mg/dL Microbiology - Last 24 Hours (Table) 10/08/23 22:05 Blood Culture - Preliminary Blood 10/08/23 22:18 Blood Culture - Preliminary Blood Assessment and Plan Assessment: 78 yo with hx of gross hematuria, Hx of retained stent and radiation for cervical cancer. Catheter was exchanged to a 20 Martiniquais Edward catheter 10/10. Continues to have gross hematuria but urine mainly consistent of old blood, gross hematuria improving this am. Patient has multiple ongoing medical issues, she is at high risk of any type of surgical intervention for her gross hematuria. 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 Douglas mendoza discussion for possible Hospice. Hgb has been stable, CBC is pending today -Keep edward in place, Irrigate catheter as needed
[2023-10-13 10:59] LABS: African American GFR (CKD) 16 (>60 ml/min/1.73 sqM); Anion Gap 11 mmol/L; Blood Urea Nitrogen 41 mg/dL (7-17); Carbon Dioxide 20 mmol/L (22-30); Chloride 105 mmol/L (98-107); Glucose 242 mg/dL (74-99); Non-African American GFR(CKD) 14 (>60 ml/min/1.73 sqM); Potassium 4.5 mmol/L (3.5-5.1); Sodium 136 mmol/L (137-145)
--- NOTE | 2023-10-13 11:14 | P.PN ---
Subjective Patient is seen for follow-up for acute kidney injury. urine output has improved. 730 mL charted for 24 hours. Crockett catheter is being flushed regularly. serum creatinine decreased to 3.0. Objective - Vital Signs Vital signs: Vital Signs Temp 97.9 F 10/13/23 08:00 Pulse 99 10/13/23 08:00 Resp 17 10/13/23 08:00 BP 113/74 10/13/23 08:00 Pulse Ox 95 10/13/23 09:29 FiO2 Intake & Output 10/12/23 10/13/23 10/13/23 18:59 06:59 18:59 Intake Total 118 118 Output Total 300 430 Balance -182 -430 118 Intake: Oral 118 118 Output: Urine 300 430 Other: Voiding Method Indwelling Catheter Indwelling Catheter Indwelling Catheter - Exam patient is sleeping today but arousable. She is comfortable. Examination of the heart S1 and S2 Examination of the lungs bilateral breath sounds are heard Abdomen is soft with tenderness Examination of lower extremity shows edema 1+ bilaterally - Labs CBC & Chem 7: 10/12/23 10:30 10/13/23 09:55 Labs: Abnormal Lab Results - Last 24 Hours (Table) 10/12/23 10/12/23 10/13/23 Range/Units 10:30 10:30 09:55 WBC 11.8 H (3.8-10.6) k/uL RBC 2.32 L (3.80-5.40) m/uL Hgb 7.5 L (11.4-16.0) gm/dL Hct 23.7 L (34.0-46.0) % MCV 102.2 H (80.0-100.0) fL RDW 17.7 H (11.5-15.5) % Neutrophils # (Manual) 10.86 H (1.3-7.7) k/uL Lymphocytes # (Manual) 0.59 L (1.0-4.8) k/uL Myelocytes # (Manual) 0.12 H (0) k/uL Nucleated RBCs 1 H (0-0) /100 WBC Sodium 136 L (137-145) mmol/L Chloride 108 H (98-107) mmol/L Carbon Dioxide 21 L 20 L (22-30) mmol/L BUN 45 H 41 H (7-17) mg/dL Creatinine 3.41 H 3.02 H (0.52-1.04) mg/dL Glucose 152 H 242 H (74-99) mg/dL Calcium 8.1 L 8.0 L (8.4-10.2) mg/dL Microbiology - Last 24 Hours (Table) 10/08/23 22:05 Blood Culture - Preliminary Blood 10/08/23 22:18 Blood Culture - Preliminary Blood Assessment and Plan Assessment: 1. Acute kidney injury, obstructive uropathy, oliguric with computed tomography scan showing bilateral hydronephrosis. Currently with indwelling Crockett catheter. Urine output improved with flushing of Crockett catheter. Urology on consult. 2. acute blood loss anemia with stool positive for occult blood and hematuria no latrell. 3. Recent small bowel obstruction status post Robotic-assisted da Radha Xi laparoscopic decompressive enterostomy with closure small bowel, proximal ileum and Robotic-assisted da Radha Xi laparoscopic small bowel external bypass proximal ileum to mid ileum on September 24, 2023. 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 History of radiation therapy 4. Cholecystitis with multiple gallstones 5. Pyuria with urine culture growing Bryanna 6. Uterine cancer status post radiation therapy Plan: Continue with flushing of Crocektt catheter Continue with IV fluids at 50 cc an hour Check iron profile Repeat labs in a.m. Overall prognosis is guarded.
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
[2023-10-13 16:07] LABS: % Iron Saturation 13.22 (12.00-50.00)
--- NOTE | 2023-10-13 23:08 | P.PN ---
Subjective Progress Note Date: 10/13/23 Principal diagnosis: Patient seen and evaluated. Resting comfortably at bedside. HIDA scan ordered however unable to complete as patient is receiving Dilaudid for pain. Addition ally, patient has multiple medical issues including gross hematuria. Possibility for hospice care being discussed. At this time, when patient medically stable will proceed with HIDA scan. Objective - Vital Signs Vital signs: Vital Signs Temp 97.8 F 10/13/23 16:00 Pulse 85 10/13/23 16:00 Resp 17 10/13/23 16:00 BP 124/69 10/13/23 16:00 Pulse Ox 97 10/13/23 16:00 FiO2 Intake & Output 10/13/23 10/13/23 10/14/23 06:59 18:59 06:59 Intake Total 236 0 Output Total 430 Balance -430 236 0 Weight 89.811 kg Intake: Oral 236 0 Output: Urine 430 Other: Voiding Method Indwelling Catheter Indwelling Catheter # Bowel Movements 1 - Labs CBC & Chem 7: 10/12/23 10:30 10/13/23 09:55 Labs: Abnormal Lab Results - Last 24 Hours (Table) 10/13/23 10/13/23 Range/Units 09:55 09:55 Sodium 136 L (137-145) mmol/L Carbon Dioxide 20 L (22-30) mmol/L BUN 41 H (7-17) mg/dL Creatinine 3.02 H (0.52-1.04) mg/dL Glucose 242 H (74-99) mg/dL Calcium 8.0 L (8.4-10.2) mg/dL Iron 23 L (50-175) UG/DL TIBC 174 L (228-460) UG/DL Transferrin 124.0 L (204.0-354.0) mg/dL
[2023-10-14] MEDS: FUROSEMIDE 10 MG/ML 4 ML VIAL IV STA (09:17)
[2023-10-14 10:20] LABS: ALT 35 U/L (4-34); AST 30 U/L (14-36); African American GFR (CKD) 21 (>60 ml/min/1.73 sqM); Albumin 2.2 g/dL (3.5-5.0); Alkaline Phosphatase 86 U/L (38-126); Anion Gap 5 mmol/L; Blood Urea Nitrogen 39 mg/dL (7-17); Calcium 8.2 mg/dL (8.4-10.2); Carbon Dioxide 21 mmol/L (22-30); Chloride 109 mmol/L (98-107); Glucose 164 mg/dL (74-99); Non-African American GFR(CKD) 18 (>60 ml/min/1.73 sqM); Potassium 4.1 mmol/L (3.5-5.1); Sodium 135 mmol/L (137-145); Total Bilirubin 0.8 mg/dL (0.2-1.3); Total Protein 4.8 g/dL (6.3-8.2)
--- NOTE | 2023-10-14 10:35 | P.PN ---
Subjective Patient is seen in follow-up for acute kidney injury. Renal function improving. Crockett catheter being flushed every 4 hours. Urine output not measured accurately. Vital signs are stable. General: No acute distress. HEENT: Head exam is unremarkable. On nasal cannula. LUNGS: No audible rhonchi or wheezes. HEART: Rate and Rhythm are regular. ABDOMEN: Nontender. EXTREMITITES: 2+ edema. Objective - Vital Signs Vital signs: Vital Signs Temp 97.7 F 10/14/23 08:55 Pulse 91 10/14/23 08:55 Resp 20 10/14/23 08:55 BP 146/81 10/14/23 08:55 Pulse Ox 98 10/14/23 09:22 FiO2 Intake & Output 10/13/23 10/14/23 10/14/23 18:59 06:59 18:59 Intake Total 236 0 Balance 236 0 Weight 89.811 kg Intake: Oral 236 0 Other: Voiding Method Indwelling Catheter Indwelling Catheter # Bowel Movements 1 1 - Labs CBC & Chem 7: 10/12/23 10:30 10/14/23 09:29 Labs: Abnormal Lab Results - Last 24 Hours (Table) 10/13/23 10/13/23 10/14/23 Range/Units 09:55 09:55 09:29 Sodium 136 L 135 L (137-145) mmol/L Chloride 109 H (98-107) mmol/L Carbon Dioxide 20 L 21 L (22-30) mmol/L BUN 41 H 39 H (7-17) mg/dL Creatinine 3.02 H 2.43 H (0.52-1.04) mg/dL Glucose 242 H 164 H (74-99) mg/dL Calcium 8.0 L 8.2 L (8.4-10.2) mg/dL Iron 23 L (50-175) UG/DL TIBC 174 L (228-460) UG/DL Transferrin 124.0 L (204.0-354.0) mg/dL ALT 35 H (4-34) U/L Total Protein 4.8 L (6.3-8.2) g/dL Albumin 2.2 L (3.5-5.0) g/dL Assessment and Plan Plan: Assessment: 1. Acute kidney injury secondary to obstructive uropathy with bilateral hydron ephrosis. Has Crockett catheter which is being flushed every 4 hours. Urology following. Renal function improving with creatinine 2.43 today. Baseline creatinine near 1 dated October 07, 2023. 2. Volume overload. 3. Cholecystitis with multiple gallstones. HIDA scan pending. 4. Acute blood loss anemia. Improved. Hemoglobin 7.5 dated October 12, 2023. Iron deficiency noted. 5. Recent small bowel obstruction status post decompressive enterostomy with closure of small bowel, proximal ileum as well as small bowel external bypass proximal to mid ileum September 24, 2023. Surgery following. Plan: Lasix 40 mg IV once today. Encouraged oral intake. Add IV iron. Avoid nephrotoxins. Continue to monitor renal function and urine output.
--- NOTE | 2023-10-14 11:10 | CDI ---
Documentation Clarification Form Date: 10/14/2023 10:28:24 AM From: Philly Guzmán RN, CCDS Phone: [phone] Admit Date: 10/08/2023 07:35:00 PM Patient Name: Carli Higuera Visit Number: [id number] Discharge Date: ATTENTION: The Clinical Documentation Specialists (CDI) and [facility] Coding Staff appreciate your assistance in clarifying documentation. Please respond to the clarification below the line at the bottom and electronically sign. The CDI & [facility] Coding staff will review the response and follow-up if needed. Please note: Queries are made part of the Legal Health Record. If you have any questions, please contact the author of this message via ITS. Dr. Biju Sanabria Candiduria/UTI POA is documented and patient has a Edward catheter POA per ED assessment. Additional clarification regarding the etiology of the UTI is requested. History/Risk Factors: Atrial Fibrillation, Cancer, CVA/TIA, GI Bleed, Hyperlipidemia, Myocardial Infarction, Former smoker, Clinical Indicators: 78-year-old female to the emergency department with concerns for anemia. Patient complains of some mild discomfort of lower abdomen. VS 168/109 150 22 98.3 94% RA Urinalysis: Urine WBC >183, Urine Bacteria Many; Stool occult blood -Positive Urine culture: 10/07 Bryanna Albicans 10/07 Labs: WBC 13.2, HGB 6.8, HGB 21.7, neutrophils 11.8, Na+ 136, BUN 26, CR 1.72, GFR 28, Lactic acid 3.5 Ct Scan shows the double J catheter, chronic right hydro, mild left hydro and a bladder a edward and probably some blood. 426 ED: Urinary Catheter assessment: Present on Admission: Yes, Date of Insertion 10/08/23 Urinary Tract Obstruction Retention (replaced in ED) Treatment: Diflucan 100 MG Once then 50 MG IVPB Daily 10/10 -10/11 Please clarify the etiology of the UTI, if known: [ ] Edward catheter [ ] Right ureteral stent [ ] UTI not related to Edward catheter or ureteral stent [ ] Other condition, please specify [ ] Unable to determine (Template Last Revised: August 2020) MTDD
[2023-10-14] MEDS: SODIUM FERRIC GLUCONAT-SUCROSE 125 MG in SODIUM CHLORIDE 0.9% 100 ML IVPB SCH (11:37)
--- NOTE | 2023-10-14 11:44 | P.PN ---
Subjective Progress Note Date: 10/14/23 CHIEF COMPLAINT: Gallstones HISTORY OF PRESENT ILLNESS: The patient is a 78-year-old female readmitted due to hematuria and incidental finding of gallstones. Patient denies any abdominal pain. Denies any nausea or vomiting. Oral intake decreased. Awaiting patient to have HIDA scan completed. So far HIDA scan has been unable to be completed due to receiving Dilaudid for pain. Patient with gross hematuria has Crockett catheter in place followed by urology. Patient remains a full code. Possibility for hospice care is being discussed. Afebrile. Sodium 135 potassium 4.1 creatinine 2.43 AST has normalized at 30 ALT is down from 52-35 total bili 0.8 alk phos 86. LFTs trending down. PHYSICAL EXAM: VITAL SIGNS: Reviewed GENERAL: Well-developed in no acute distress. HEENT: No sclera icterus. Extraocular movements grossly intact. Moist buccal mucosa. Head is atraumatic, normocephalic. Hears conversational speech. No nasal drainage. NECK: Supple without lymphadenopathy. CHEST: Non-labored respirations and equal bilateral excursions. CARDIOVASCULAR: Palpable 2+ radial pulses. ABDOMEN: Soft. Nondistended. Nontender. MUSCULOSKELETAL: No clubbing or cyanosis. NEUROLOGIC: No focal or lateralizing signs. Cranial nerves II through XII grossly intact. PSYCH: Awake. Pleasantly confused. Able to answer some questions appropriately. SKIN: Well perfused. Good skin turgor. ASSESSMENT: 1. Acute cholecystitis with gallstones 2. Acute renal failure 3. Endometrial cancer PLAN: -HIDA scan pending to assess for acute cholecystitis and need for cholecystostomy tube -Continue antibiotics -Patient is at high surgical risk for any surgical intervention at this time -Possibility for hospice care is being discussed Physician Chocolate Packer note has been reviewed by physician. Signing provider agrees with the documented findings, assessment, and plan of care. Objective - Vital Signs Vital signs: Vital Signs Temp 98.3 F 10/14/23 11:36 Pulse 91 10/14/23 11:36 Resp 20 10/14/23 11:36 BP 137/88 10/14/23 11:36 Pulse Ox 99 10/14/23 11:36 FiO2 Intake & Output 10/13/23 10/14/23 10/14/23 18:59 06:59 18:59 Intake Total 236 0 Balance 236 0 Weight 89.811 kg Intake: Oral 236 0 Other: Voiding Method Indwelling Catheter Indwelling Catheter Indwelling Catheter # Bowel Movements 1 2 - Labs CBC & Chem 7: 10/12/23 10:30 10/14/23 09:29 Labs: Abnormal Lab Results - Last 24 Hours (Table) 10/13/23 10/14/23 Range/Units 09:55 09:29 Sodium 135 L (137-145) mmol/L Chloride 109 H (98-107) mmol/L Carbon Dioxide 21 L (22-30) mmol/L BUN 39 H (7-17) mg/dL Creatinine 2.43 H (0.52-1.04) mg/dL Glucose 164 H (74-99) mg/dL Calcium 8.2 L (8.4-10.2) mg/dL Iron 23 L (50-175) UG/DL TIBC 174 L (228-460) UG/DL Transferrin 124.0 L (204.0-354.0) mg/dL ALT 35 H (4-34) U/L Total Protein 4.8 L (6.3-8.2) g/dL Albumin 2.2 L (3.5-5.0) g/dL
[2023-10-14] MEDS ORDERED: LORazepam 1 MG/0.5 ML VIAL IV PRN (17:04)
--- NOTE | 2023-10-14 17:49 | P.PN ---
Subjective Progress Note Date: 10/14/23 Catheter did require exchange last night, current catheter is draining hematuric urine. There is discussion of possibility of placing patient in hospice creatinine did improve to 2.4 this a.m. Objective - Vital Signs Vital signs: Vital Signs Temp 98.3 F 10/14/23 11:36 Pulse 91 10/14/23 14:00 Resp 19 10/14/23 14:00 BP 137/88 10/14/23 11:36 Pulse Ox 99 10/14/23 11:36 FiO2 Intake & Output 10/13/23 10/14/23 10/14/23 18:59 06:59 18:59 Intake Total 236 0 Balance 236 0 Weight 89.811 kg Intake: Oral 236 0 Other: Voiding Method Indwelling Catheter Indwelling Catheter Indwelling Catheter # Bowel Movements 1 2 - Constitutional General appearance: Present: no acute distress - Gastrointestinal General gastrointestinal: Present: soft. Absent: distended, tenderness - Labs CBC & Chem 7: 10/12/23 10:30 10/14/23 09:29 Labs: Abnormal Lab Results - Last 24 Hours (Table) 10/14/23 Range/Units 09:29 Sodium 135 L (137-145) mmol/L Chloride 109 H (98-107) mmol/L Carbon Dioxide 21 L (22-30) mmol/L BUN 39 H (7-17) mg/dL Creatinine 2.43 H (0.52-1.04) mg/dL Glucose 164 H (74-99) mg/dL Calcium 8.2 L (8.4-10.2) mg/dL ALT 35 H (4-34) U/L Total Protein 4.8 L (6.3-8.2) g/dL Albumin 2.2 L (3.5-5.0) g/dL Microbiology - Last 24 Hours (Table) 10/08/23 22:05 Blood Culture - Final Blood 10/08/23 22:18 Blood Culture - Final Blood Assessment and Plan Assessment: 78 yo with hx of gross hematuria, Hx of retained stent and radiation for cervical cancer. Catheter was exchanged to a 20 [place] Edward catheter 10/10. Continues to have gross hematuria but urine mainly consistent of old blood, . Patient has multiple ongoing medical issues, she is at high risk of any type of surgical intervention for her gross hematuria. 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 Currently discussion for possible Hospice. Hgb has been stable. Patient is a high surgical candidate for any intervention, proceeding with cystoscopy is unlikely to change her long-term outcome. At this point recommend continue with conservative management -Keep edward in place, Irrigate catheter as needed
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
--- NOTE | 2023-10-15 07:47 | P.PN ---
Subjective Progress Note Date: 10/15/23 Urine still hematuric this morning, mainly consistent of old blood denies any abdominal pain Objective - Vital Signs Vital signs: Vital Signs Temp 98.1 F 10/14/23 21:07 Pulse 84 10/15/23 04:00 Resp 17 10/15/23 04:00 BP 122/84 10/15/23 04:00 Pulse Ox 98 10/15/23 04:00 FiO2 Intake & Output 10/14/23 10/15/23 10/15/23 18:59 06:59 18:59 Output Total 1550 800 Balance -1550 -800 Output: Urine 1550 800 Other: Voiding Method Indwelling Catheter Indwelling Catheter # Bowel Movements 2 - Constitutional General appearance: Present: no acute distress - Gastrointestinal General gastrointestinal: Present: soft. Absent: distended, tenderness - Labs CBC & Chem 7: 10/12/23 10:30 10/14/23 09:29 Labs: Abnormal Lab Results - Last 24 Hours (Table) 10/14/23 Range/Units 09:29 Sodium 135 L (137-145) mmol/L Chloride 109 H (98-107) mmol/L Carbon Dioxide 21 L (22-30) mmol/L BUN 39 H (7-17) mg/dL Creatinine 2.43 H (0.52-1.04) mg/dL Glucose 164 H (74-99) mg/dL Calcium 8.2 L (8.4-10.2) mg/dL ALT 35 H (4-34) U/L Total Protein 4.8 L (6.3-8.2) g/dL Albumin 2.2 L (3.5-5.0) g/dL Microbiology - Last 24 Hours (Table) 10/08/23 22:05 Blood Culture - Final Blood 10/08/23 22:18 Blood Culture - Final Blood Assessment and Plan Assessment: 78 yo with hx of gross hematuria, Hx of retained stent and radiation for cervical cancer. Catheter was exchanged to a 20 [place] Edward catheter 10/10. Continues to have gross hematuria but urine mainly consistent of old blood, . Patient has multiple ongoing medical issues, she is at high risk of any type of surgical intervention for her gross hematuria. 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 Currently discussion for possible Hospice. Hgb has been stable. Patient is a high surgical candidate for any intervention, proceeding with cystoscopy is unlikely to change her long-term outcome. At this point recommend continue with conservative management -Keep edward in place, Irrigate catheter as needed -Will follow-up on this morning CBC
[2023-10-15 09:37] LABS: Anisocytosis Slight; Basophils % (A) 0 %; Eosinophils # (A) 0.2 k/uL (0-0.7); Eosinophils % (A) 2 %; HCT 25.8 % (34.0-46.0); Hypochromasia Moderate; Lymphocytes # (A) 0.6 k/uL (1.0-4.8); Lymphocytes % (A) 6 %; MCH 31.6 pg (25.0-35.0); MCHC 30.9 g/dL (31.0-37.0); MCV 102.2 fL (80.0-100.0); Macrocytosis Moderate; Mean Platelet Volume 8.5; Monocytes # (A) 0.7 k/uL (0-1.0); Monocytes % (A) 8 %; Neutrophils # (A) 7.4 k/uL (1.3-7.7); Neutrophils % (A) 83 %; Platelet Count 240 k/uL (150-450); RBC 2.53 m/uL (3.80-5.40); RDW 17.5 % (11.5-15.5)
[2023-10-15 10:05] LABS: African American GFR (CKD) 24 (>60 ml/min/1.73 sqM); Anion Gap 8 mmol/L; Blood Urea Nitrogen 34 mg/dL (7-17); Calcium 8.1 mg/dL (8.4-10.2); Carbon Dioxide 20 mmol/L (22-30); Chloride 108 mmol/L (98-107); Glucose 135 mg/dL (74-99); Magnesium 1.6 mg/dL (1.6-2.3); Non-African American GFR(CKD) 21 (>60 ml/min/1.73 sqM); Potassium 3.9 mmol/L (3.5-5.1); Sodium 136 mmol/L (137-145)
--- NOTE | 2023-10-15 10:53 | P.PN ---
Subjective Patient is seen in follow-up for acute kidney injury. Renal function improving. Crockett catheter being flushed every 4 hours. Nonoliguric. Vital signs are stable. General: No acute distress. HEENT: Head exam is unremarkable. On nasal cannula. LUNGS: No audible rhonchi or wheezes. HEART: Rate and Rhythm are regular. ABDOMEN: Nontender. EXTREMITITES: 2+ edema. Objective - Vital Signs Vital signs: Vital Signs Temp 98.1 F 10/14/23 21:07 Pulse 84 10/15/23 04:00 Resp 17 10/15/23 04:00 BP 122/84 10/15/23 04:00 Pulse Ox 98 10/15/23 04:00 FiO2 Intake & Output 10/14/23 10/15/23 10/15/23 18:59 06:59 18:59 Output Total 1550 800 Balance -1550 -800 Output: Urine 1550 800 Other: Voiding Method Indwelling Catheter Indwelling Catheter # Bowel Movements 2 - Labs CBC & Chem 7: 10/15/23 08:52 10/15/23 08:52 Labs: Abnormal Lab Results - Last 24 Hours (Table) 10/15/23 10/15/23 Range/Units 08:52 08:52 RBC 2.53 L (3.80-5.40) m/uL Hgb 8.0 L (11.4-16.0) gm/dL Hct 25.8 L (34.0-46.0) % MCV 102.2 H (80.0-100.0) fL MCHC 30.9 L (31.0-37.0) g/dL RDW 17.5 H (11.5-15.5) % Lymphocytes # 0.6 L (1.0-4.8) k/uL Sodium 136 L (137-145) mmol/L Chloride 108 H (98-107) mmol/L Carbon Dioxide 20 L (22-30) mmol/L BUN 34 H (7-17) mg/dL Creatinine 2.19 H (0.52-1.04) mg/dL Glucose 135 H (74-99) mg/dL Calcium 8.1 L (8.4-10.2) mg/dL Microbiology - Last 24 Hours (Table) 10/08/23 22:05 Blood Culture - Final Blood 04/26/24 22:18 Blood Culture - Final Blood Assessment and Plan Plan: Assessment: 1. Acute kidney injury secondary to obstructive uropathy with bilateral hydronephrosis. Has Crockett catheter which is being flushed every 4 hours. Urology following. Renal function improving with creatinine 2.19 today. Baseline creatinine near 1 dated October 07, 2023. 2. Volume overload. 3. Cholecystitis with multiple gallstones. HIDA scan pending. 4. Acute blood loss anemia. Improved. Hemoglobin 8.0 today. Iron deficiency noted. 5. Recent small bowel obstruction status post decompressive enterostomy with closure of small bowel, proximal ileum as well as small bowel external bypass proximal to mid ileum September 24, 2023. Surgery following. Plan: Repeat IV Lasix today. Encouraged oral intake. Maintain IV iron. Avoid nephrotoxins. Continue to monitor renal function and urine output.
[2023-10-15] MEDS: FUROSEMIDE 10 MG/ML 4 ML VIAL IV STA (11:51)
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
--- NOTE | 2023-10-15 16:21 | P.PN ---
Subjective Progress Note Date: 10/15/23 CHIEF COMPLAINT: Gallstones HISTORY OF PRESENT ILLNESS: The patient is a 78-year-old female readmitted due to hematuria and incidental finding of gallstones. Patient denies any abdominal pain. Denies any nausea or vomiting. Oral intake decreased. Awaiting patient to have HIDA scan completed. So far HIDA scan has been unable to be completed due to receiving Dilaudid for pain. It is scheduled to be completed this afternoon. Patient with gross hematuria has Crockett catheter in place followed by urology. Patient remains a full code. Possibility for hospice care is being discussed. Afebrile. WBC is down from 11.8-9.0 hemoglobin 8.0 creatinine 2.19 PHYSICAL EXAM: VITAL SIGNS: Reviewed GENERAL: Well-developed in no acute distress. HEENT: No sclera icterus. Extraocular movements grossly intact. Moist buccal mucosa. Head is atraumatic, normocephalic. Hears conversational speech. No nasal drainage. NECK: Supple without lymphadenopathy. CHEST: Non-labored respirations and equal bilateral excursions. CARDIOVASCULAR: Palpable 2+ radial pulses. ABDOMEN: Soft. Nondistended. Nontender. MUSCULOSKELETAL: No clubbing or cyanosis. NEUROLOGIC: No focal or lateralizing signs. Cranial nerves II through XII grossly intact. PSYCH: Awake. Pleasantly confused. Able to answer some questions appropriately. SKIN: Well perfused. Good skin turgor. ASSESSMENT: 1. Acute cholecystitis with gallstones 2. Acute renal failure 3. Endometrial cancer PLAN: -HIDA scan pending to assess for acute cholecystitis and need for cholecystostomy tube -Continue antibiotics -Patient is at high surgical risk for any surgical intervention at this time -Possibility for hospice care is being discussed Physician Oysterman note has been reviewed by physician. Signing provider agrees with the documented findings, assessment, and plan of care. Objective - Vital Signs Vital signs: Vital Signs Temp 97.8 F 10/15/23 08:30 Pulse 59 L 10/15/23 11:50 Resp 16 10/15/23 11:50 BP 109/68 10/15/23 11:50 Pulse Ox 98 10/15/23 11:50 FiO2 Intake & Output 10/14/23 10/15/23 10/15/23 18:59 06:59 18:59 Output Total 1550 800 Balance -1550 -800 Output: Urine 1550 800 Other: Voiding Method Indwelling Catheter Indwelling Catheter Indwelling Catheter # Bowel Movements 2 - Labs CBC & Chem 7: 10/15/23 08:52 10/15/23 08:52 Labs: Abnormal Lab Results - Last 24 Hours (Table) 10/15/23 10/15/23 Range/Units 08:52 08:52 RBC 2.53 L (3.80-5.40) m/uL Hgb 8.0 L (11.4-16.0) gm/dL Hct 25.8 L (34.0-46.0) % MCV 102.2 H (80.0-100.0) fL MCHC 30.9 L (31.0-37.0) g/dL RDW 17.5 H (11.5-15.5) % Lymphocytes # 0.6 L (1.0-4.8) k/uL Sodium 136 L (137-145) mmol/L Chloride 108 H (98-107) mmol/L Carbon Dioxide 20 L (22-30) mmol/L BUN 34 H (7-17) mg/dL Creatinine 2.19 H (0.52-1.04) mg/dL Glucose 135 H (74-99) mg/dL Calcium 8.1 L (8.4-10.2) mg/dL Microbiology - Last 24 Hours (Table) 10/08/23 22:05 Blood Culture - Final Blood 10/08/23 22:18 Blood Culture - Final Blood
--- NOTE | 2023-10-15 16:28 | NM ---
EXAMINATION TYPE: NM hepatobiliary wo EF DATE OF EXAM: 10/15/2023 COMPARISON: NONE INDICATION: Gallstones abdominal pain TECHNIQUE: After the intravenous administration of 5.3 mCi Tc 99m Mebrofenin hepatobiliary scintigrap hy is performed. Images were obtained immediately post injection. FINDINGS: There is prompt uptake and excretion of radiotracer by the liver. Extrahepatic ducts are identified at 4 minutes. Small bowel activity is noted within 6 minutes. Gallbladder is not identified out to 60 minutes. Delayed images were obtained out to 4 hours. No gall bladder is identified. Findings can be compatible with cystic duct obstruction. Correlate for acute c holecystitis. IMPRESSION: 1. Nonvisualization of the gallbladder during this exam. Correlate for acute cholecystitis.
[2023-10-16 08:03] LABS: African American GFR (CKD) 32 (>60 ml/min/1.73 sqM); Anion Gap 7 mmol/L; Blood Urea Nitrogen 31 mg/dL (7-17); Calcium 8.2 mg/dL (8.4-10.2); Carbon Dioxide 23 mmol/L (22-30); Chloride 108 mmol/L (98-107); Glucose 102 mg/dL (74-99); Magnesium 1.5 mg/dL (1.6-2.3); Non-African American GFR(CKD) 28 (>60 ml/min/1.73 sqM); Potassium 3.7 mmol/L (3.5-5.1); Sodium 138 mmol/L (137-145)
--- NOTE | 2023-10-16 10:23 | P.PN ---
Subjective Patient is seen in follow-up for acute kidney injury. Renal function improving. Crockett catheter being flushed every 4 hours. Nonoliguric. Oral intake fair. Vital signs are stable. General: No acute distress. HEENT: Head exam is unremarkable. On nasal cannula. LUNGS: No audible rhonchi or wheezes. HEART: Rate and Rhythm are regular. ABDOMEN: Nontender. EXTREMITITES: 2+ edema. Objective - Vital Signs Vital signs: Vital Signs Temp 97.9 F 10/16/23 08:36 Pulse 97 10/16/23 08:36 Resp 16 10/16/23 08:36 BP 153/94 10/16/23 08:36 Pulse Ox 98 10/16/23 08:36 FiO2 Intake & Output 10/15/23 10/16/23 10/16/23 18:59 06:59 18:59 Intake Total 240 Output Total 1900 700 300 Balance -1660 -700 -300 Weight 89.811 kg Intake: Oral 240 Output: Urine 1900 700 300 Uretheral (Crockett) 600 200 Other: Voiding Method Indwelling Catheter Indwelling Catheter - Labs CBC & Chem 7: 10/15/23 08:52 10/16/23 07:18 Labs: Abnormal Lab Results - Last 24 Hours (Table) 10/16/23 Range/Units 07:18 Chloride 108 H (98-107) mmol/L BUN 31 H (7-17) mg/dL Creatinine 1.71 H (0.52-1.04) mg/dL Glucose 102 H (74-99) mg/dL Calcium 8.2 L (8.4-10.2) mg/dL Magnesium 1.5 L (1.6-2.3) mg/dL Assessment and Plan Plan: Assessment: 1. Acute kidney injury secondary to obstructive uropathy with bilateral hydronephrosis. Has Crockett catheter which is being flushed every 4 hours. Urology following. Renal function improving with creatinine 1.71 today. Baseline creatinine near 1 dated October 07, 2023. 2. Volume overload. Improving with diuresis. 3. Cholecystitis with multiple gallstones. HIDA scan pending. 4. Acute blood loss anemia. Improved. Hemoglobin 8.0 yesterday. Iron deficiency noted. 5. Recent small bowel obstruction status post decompressive enterostomy with closure of small bowel, proximal ileum as well as small bowel external bypass proximal to mid ileum September 24, 2023. Surgery following. Plan: Add IV Lasix 40 mg once daily. Encouraged oral intake. Maintain IV iron. Add Aranesp. Avoid nephrotoxins. Continue to monitor renal function and urine output.
--- NOTE | 2023-10-16 10:45 | P.PN ---
Subjective Progress Note Date: 10/16/23 NAEON. No abdominal pain. No N/V. No F/C. No SOB or CP. Denies any BM but admits to flatus. Tolerating diet currently. Crockett intact with good UOP seen. Objective - Vital Signs Vital signs: Vital Signs Temp 97.9 F 10/16/23 08:36 Pulse 97 10/16/23 08:36 Resp 16 10/16/23 08:36 BP 153/94 10/16/23 08:36 Pulse Ox 98 10/16/23 08:36 FiO2 Intake & Output 10/15/23 10/16/23 10/16/23 18:59 06:59 18:59 Intake Total 240 Output Total 1900 700 300 Balance -1660 -700 -300 Weight 89.811 kg Intake: Oral 240 Output: Urine 1900 700 300 Uretheral (Crockett) 600 200 Other: Voiding Method Indwelling Catheter Indwelling Catheter - Exam Gen: AxO, NAD Pulm: non-labored respirations Abd: soft, non-tender, non-distended. No guarding/rebound/rigidity. Perea's sign neg Crockett; intact producing pale yellow UOP - Labs CBC & Chem 7: 10/15/23 08:52 10/16/23 07:18 Labs: Abnormal Lab Results - Last 24 Hours (Table) 10/16/23 Range/Units 07:18 Chloride 108 H (98-107) mmol/L BUN 31 H (7-17) mg/dL Creatinine 1.71 H (0.52-1.04) mg/dL Glucose 102 H (74-99) mg/dL Calcium 8.2 L (8.4-10.2) mg/dL Magnesium 1.5 L (1.6-2.3) mg/dL Assessment and Plan Assessment: Patient is a 78 year old female with a PSH of recent small bowel bypass in September 2023 who presents with concerns for acute cholecystitis Plan: -HIDA obtained no evidence of gallbladder seen; concerning for acute cholecystitis -Diet as tolerated -IVF hydration -IV abx -No acute surgical intervention; will await results of family discussion on hospice therapy versus perc dakota versus laparoscopic cholecystectomy prior to intervention -Care per primary Riley Rogers MD General Surgery
[2023-10-16] MEDS: FUROSEMIDE 10 MG/ML 4 ML VIAL IV SCH (11:42)
--- NOTE | 2023-10-16 11:44 | P.PN ---
Subjective Urine still hematuric this morning, mainly consistent of old blood denies any abdominal pain. Hemoglobin was stable at 8 yesterday, creatinine continues to trend down now at 1.7 Objective - Vital Signs Vital signs: Vital Signs Temp 97.9 F 10/16/23 08:36 Pulse 105 H 10/16/23 11:24 Resp 16 10/16/23 11:24 BP 142/80 10/16/23 11:24 Pulse Ox 98 10/16/23 11:24 FiO2 Intake & Output 10/15/23 10/16/23 10/16/23 18:59 06:59 18:59 Intake Total 240 236 Output Total 1900 700 300 Balance -1660 -700 -64 Weight 89.811 kg Intake: Oral 240 236 Output: Urine 1900 700 300 Uretheral (Edward) 600 200 Other: Voiding Method Indwelling Catheter Indwelling Catheter - Constitutional General appearance: Present: no acute distress - Gastrointestinal General gastrointestinal: Present: soft. Absent: distended, tenderness - Psychiatric Psychiatric: Present: A&O x's 3 - Labs CBC & Chem 7: 10/15/23 08:52 10/16/23 07:18 Labs: Abnormal Lab Results - Last 24 Hours (Table) 10/16/23 Range/Units 07:18 Chloride 108 H (98-107) mmol/L BUN 31 H (7-17) mg/dL Creatinine 1.71 H (0.52-1.04) mg/dL Glucose 102 H (74-99) mg/dL Calcium 8.2 L (8.4-10.2) mg/dL Magnesium 1.5 L (1.6-2.3) mg/dL Assessment and Plan Assessment: 78 yo with hx of gross hematuria, Hx of retained stent and radiation for cervical cancer. Catheter was exchanged to a 20 Greek Edward catheter 10/10. Continues to have gross hematuria but urine mainly consistent of old blood, . Patient has multiple ongoing medical issues, she is at high risk of any type of surgical intervention for her gross hematuria. 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 Currently discussion for possible Hospice. Hgb has been stable. Patient is a high surgical candidate for any intervention, proceeding with cystoscopy is unlikely to change her long-term outcome. At this point recommend continue with conservative management -Keep edward in place, Irrigate catheter as needed -Will follow-up on this morning CBC
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
[2023-10-16] MEDS ORDERED: Magnesium Replacement Protocol 1 EACH MISC MISCELLANE PRN (15:28)
[2023-10-16] MEDS: MAGNESIUM SULFATE-D5W PMX 1 GM in DEXTROSE/WATER 1 100ML.BAG IVPB SCH (16:09)
[2023-10-16] MEDS: DARBEPOETIN ALFA 40 MCG/0.4 ML SYRINGE SQ SCH (19:01)
[2023-10-17 06:38] LABS: Chloride 107 mmol/L (98-107)
[2023-10-17 06:39] LABS: ALT 34 U/L (4-34); AST 30 U/L (14-36); African American GFR (CKD) 37 (>60 ml/min/1.73 sqM); Alkaline Phosphatase 77 U/L (38-126); Anion Gap 5 mmol/L; Blood Urea Nitrogen 29 mg/dL (7-17); Calcium 7.8 mg/dL (8.4-10.2); Carbon Dioxide 26 mmol/L (22-30); Glucose 147 mg/dL (74-99); Magnesium 1.8 mg/dL (1.6-2.3); Non-African American GFR(CKD) 32 (>60 ml/min/1.73 sqM); Potassium 3.5 mmol/L (3.5-5.1); Sodium 138 mmol/L (137-145); Total Bilirubin 0.7 mg/dL (0.2-1.3); Total Protein 4.5 g/dL (6.3-8.2)
[2023-10-17 06:40] LABS: Anisocytosis Slight; Basophils % (A) 0 %; Eosinophils # (A) 0.1 k/uL (0-0.7); Eosinophils % (A) 1 %; HCT 24.5 % (34.0-46.0); HGB 7.9 gm/dL (11.4-16.0); Hypochromasia Moderate; Lymphocytes # (A) 0.7 k/uL (1.0-4.8); Lymphocytes % (A) 9 %; MCH 32.4 pg (25.0-35.0); MCHC 32.1 g/dL (31.0-37.0); Macrocytosis Moderate; Mean Platelet Volume 8.4; Monocytes # (A) 0.6 k/uL (0-1.0); Monocytes % (A) 8 %; Neutrophils # (A) 5.9 k/uL (1.3-7.7); Neutrophils % (A) 80 %; Platelet Count 251 k/uL (150-450); Poikilocytosis Slight; RBC 2.42 m/uL (3.80-5.40); RDW 17.6 % (11.5-15.5); WBC 7.3 k/uL (3.8-10.6)
--- NOTE | 2023-10-17 10:12 | P.PN ---
Subjective Patient is seen in follow-up for acute kidney injury. Renal function improving. Nonoliguric. Oral intake fair. Vital signs are stable. General: No acute distress. HEENT: Head exam is unremarkable. On nasal cannula. LUNGS: No audible rhonchi or wheezes. HEART: Rate and Rhythm are regular. ABDOMEN: Nontender. EXTREMITITES: 2+ edema. Objective - Vital Signs Vital signs: Vital Signs Temp 98.4 F 10/17/23 08:31 Pulse 110 H 10/17/23 08:31 Resp 16 10/17/23 08:31 BP 141/77 10/17/23 08:31 Pulse Ox 95 10/17/23 09:31 FiO2 Intake & Output 10/16/23 10/17/23 10/17/23 18:59 06:59 18:59 Intake Total 354 Output Total 1075 700 Balance -721 -700 Intake: Oral 354 Output: Urine 1075 700 Uretheral (Crockett) 100 Other: Voiding Method Indwelling Catheter Indwelling Catheter # Bowel Movements 1 - Labs CBC & Chem 7: 10/17/23 05:53 10/17/23 05:53 Labs: Abnormal Lab Results - Last 24 Hours (Table) 10/17/23 10/17/23 Range/Units 05:53 05:53 RBC 2.42 L (3.80-5.40) m/uL Hgb 7.9 L (11.4-16.0) gm/dL Hct 24.5 L (34.0-46.0) % MCV 101.0 H (80.0-100.0) fL RDW 17.6 H (11.5-15.5) % Lymphocytes # 0.7 L (1.0-4.8) k/uL BUN 29 H (7-17) mg/dL Creatinine 1.55 H (0.52-1.04) mg/dL Glucose 147 H (74-99) mg/dL Calcium 7.8 L (8.4-10.2) mg/dL Total Protein 4.5 L (6.3-8.2) g/dL Albumin 2.0 L (3.5-5.0) g/dL Assessment and Plan Plan: Assessment: 1. Acute kidney injury secondary to obstructive uropathy with bilateral hydronephrosis. Has Crockett catheter which is being flushed every 4 hours. Urology following. Renal function improving with creatinine 1.55 today. Baseline creatinine near 1 dated October 07, 2023. 2. Volume overload. Improving with diuresis. 3. Cholecystitis with multiple gallstones. HIDA scan showed nonvisualization of the gallbladder. Surgery following. 4. Acute blood loss anemia. Improved. Hemoglobin stable. Iron deficiency noted. Receiving IV iron. On Aranesp. 5. Recent small bowel obstruction status post decompressive enterostomy with closure of small bowel, proximal ileum as well as small bowel external bypass proximal to mid ileum September 24, 2023. Surgery following. 6. Hypokalemia from diuresis. Plan: Maintain IV Lasix. Replace potassium. Encouraged oral intake. Avoid nephrotoxins. Continue to monitor renal function and urine output.
[2023-10-17] MEDS ORDERED: Magnesium Replacement Protocol 1 EACH MISC MISCELLANE PRN (11:57)
[2023-10-17] MEDS: POTASSIUM CHLORIDE ER 20 MEQ TAB.ER PO STA (11:59)
[2023-10-17] MEDS: MAGNESIUM SULFATE-D5W PMX 1 GM in DEXTROSE/WATER 1 100ML.BAG IVPB ONE (12:03)
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
--- NOTE | 2023-10-17 13:45 | P.PN ---
Subjective Urine is light red this morning, no clots. Denies any abdominal pain. Hemoglobin was stable at 7.9 yesterday, creatinine continues to trend down now at 1.5 Objective - Vital Signs Vital signs: Vital Signs Temp 98.4 F 10/17/23 08:31 Pulse 82 10/17/23 11:55 Resp 16 10/17/23 11:55 BP 122/74 10/17/23 11:55 Pulse Ox 98 10/17/23 11:55 FiO2 Intake & Output 10/16/23 10/17/23 10/17/23 18:59 06:59 18:59 Intake Total 354 720 Output Total 1075 700 975 Balance -721 -700 -255 Intake: Oral 354 720 Output: Urine 1075 700 975 Uretheral (Edward) 100 Other: Voiding Method Indwelling Catheter Indwelling Catheter Indwelling Catheter # Bowel Movements 1 - Constitutional General appearance: Present: no acute distress - Gastrointestinal General gastrointestinal: Present: soft. Absent: distended, tenderness - Labs CBC & Chem 7: 10/17/23 05:53 10/17/23 05:53 Labs: Abnormal Lab Results - Last 24 Hours (Table) 10/17/23 10/17/23 Range/Units 05:53 05:53 RBC 2.42 L (3.80-5.40) m/uL Hgb 7.9 L (11.4-16.0) gm/dL Hct 24.5 L (34.0-46.0) % MCV 101.0 H (80.0-100.0) fL RDW 17.6 H (11.5-15.5) % Lymphocytes # 0.7 L (1.0-4.8) k/uL BUN 29 H (7-17) mg/dL Creatinine 1.55 H (0.52-1.04) mg/dL Glucose 147 H (74-99) mg/dL Calcium 7.8 L (8.4-10.2) mg/dL Total Protein 4.5 L (6.3-8.2) g/dL Albumin 2.0 L (3.5-5.0) g/dL Assessment and Plan Assessment: 78 yo with hx of gross hematuria, Hx of retained stent and radiation for cervical cancer. Catheter was exchanged to a 20 [place] Edward catheter 10/10. Continues to have gross hematuria but urine mainly consistent of old blood, . Patient has multiple ongoing medical issues, she is at high risk of any type of surgical intervention for her gross hematuria. Her hematuria is most likely se condary to radiation cystitis. Currently discussion for possible Hospice. Hgb has been stable. Patient is a high surgical candidate for any intervention, proceeding with cystoscopy is unlikely to change her long-term outcome. At this point recommend continue with conservative management -Keep edward in place, Irrigate catheter as needed. If if hematuria continues to improve we will plan on removing catheter tomorrow -Will follow-up on this morning CBC
--- NOTE | 2023-10-17 18:51 | P.PN ---
Subjective Progress Note Date: 10/17/23 Patient is resting comfortably. No new complaints. Acute renal failure is improving. Patient increased urine output. Abdomen: No peritonitis. Studies: HIDA scan independently reviewed demonstrates nonvisualization of the gallbladder consistent with acute cholecystitis. Assessment: 1. Acute cholecystitis Plan: 1. Patient has acute cholecystitis for which robotic cholecystectomy described. Consent obtained by her guardian. 2. Overall, patient is elevated risk due to pre-existing conditions including metastatic endometrial cancer Objective - Vital Signs Vital signs: Vital Signs Temp 98.4 F 10/17/23 08:31 Pulse 90 10/17/23 15:29 Resp 16 10/17/23 11:55 BP 128/85 10/17/23 15:29 Pulse Ox 99 10/17/23 15:29 FiO2 Intake & Output 10/16/23 10/17/23 10/17/23 18:59 06:59 18:59 Intake Total 354 838 Output Total 7309 172 8348 Balance -721 -700 -387 Intake: Oral 354 838 Output: Urine 0396 253 6484 Uretheral (Crockett) 100 Other: Voiding Method Indwelling Catheter Indwelling Catheter Indwelling Catheter # Bowel Movements 1 - Labs CBC & Chem 7: 10/17/23 05:53 10/17/23 05:53 Labs: Abnormal Lab Results - Last 24 Hours (Table) 10/17/23 10/17/23 Range/Units 05:53 05:53 RBC 2.42 L (3.80-5.40) m/uL Hgb 7.9 L (11.4-16.0) gm/dL Hct 24.5 L (34.0-46.0) % MCV 101.0 H (80.0-100.0) fL RDW 17.6 H (11.5-15.5) % Lymphocytes # 0.7 L (1.0-4.8) k/uL BUN 29 H (7-17) mg/dL Creatinine 1.55 H (0.52-1.04) mg/dL Glucose 147 H (74-99) mg/dL Calcium 7.8 L (8.4-10.2) mg/dL Total Protein 4.5 L (6.3-8.2) g/dL Albumin 2.0 L (3.5-5.0) g/dL
--- NOTE | 2023-10-18 10:28 | P.PN ---
Subjective Patient is seen in follow-up for acute kidney injury. Renal function improving. Nonoliguric. Oral intake fair. No active complaints. Vital signs are stable. General: No acute distress. HEENT: Head exam is unremarkable. On nasal cannula. LUNGS: No audible rhonchi or wheezes. HEART: Rate and Rhythm are regular. ABDOMEN: Nontender. EXTREMITITES: 2+ edema. Objective - Vital Signs Vital signs: Vital Signs Temp 98.1 F 10/18/23 08:10 Pulse 81 10/18/23 08:10 Resp 18 10/18/23 08:10 BP 138/72 10/18/23 08:10 Pulse Ox 98 10/18/23 08:10 FiO2 Intake & Output 10/17/23 10/18/23 10/18/23 18:59 06:59 18:59 Intake Total 838 Output Total 1225 500 Balance -387 -500 Intake: Oral 838 Output: Urine 1225 500 Other: Voiding Method Indwelling Catheter Indwelling Catheter Indwelling Catheter - Labs CBC & Chem 7: 10/17/23 05:53 10/17/23 05:53 Assessment and Plan Plan: Assessment: 1. Acute kidney injury secondary to obstructive uropathy with bilateral hydronephrosis. Has Crockett catheter which is being flushed every 4 hours. Urology following. Renal function improving with creatinine 1.55 yesterday. Baseline creatinine near 1 dated October 07, 2023. 2. Volume overload. Improving with diuresis. 3. Cholecystitis with multiple gallstones. HIDA scan showed nonvisualization of the gallbladder. Surgery following. 4. Acute blood loss anemia. Improved. Hemoglobin stable. Iron deficiency noted. Status post IV iron. On Aranesp. 5. Recent small bowel obstruction status post decompressive enterostomy with c losure of small bowel, proximal ileum as well as small bowel external bypass proximal to mid ileum September 24, 2023. Surgery following. 6. Hypokalemia from diuresis. Replaced. Plan: Maintain IV Lasix. Encouraged oral intake. Avoid nephrotoxins. Continue to monitor renal function and urine output.
[2023-10-18 11:49] LABS: African American GFR (CKD) 43 (>60 ml/min/1.73 sqM); Anion Gap 4 mmol/L; Blood Urea Nitrogen 30 mg/dL (7-17); Calcium 8.1 mg/dL (8.4-10.2); Carbon Dioxide 26 mmol/L (22-30); Chloride 107 mmol/L (98-107); Glucose 140 mg/dL (74-99); Non-African American GFR(CKD) 37 (>60 ml/min/1.73 sqM); Potassium 3.9 mmol/L (3.5-5.1); Sodium 137 mmol/L (137-145)
--- NOTE | 2023-10-18 13:04 | P.PN ---
Subjective Progress Note Date: 10/18/23 Principal diagnosis: Gross hematuria The Crockett catheter is currently draining urine which is light pink in color, without clots. Objective - Vital Signs Vital signs: Vital Signs Temp 98.3 F 10/18/23 11:10 Pulse 91 10/18/23 11:10 Resp 16 10/18/23 11:10 BP 122/79 10/18/23 11:10 Pulse Ox 99 10/18/23 11:10 FiO2 Intake & Output 10/17/23 10/18/23 10/18/23 18:59 06:59 18:59 Intake Total 838 Output Total 1225 500 675 Balance -458 -939 -554 Intake: Oral 838 Output: Urine 1225 500 675 Other: Voiding Method Indwelling Catheter Indwelling Catheter Indwelling Catheter - Constitutional General appearance: Present: average body habitus, cooperative - Labs CBC & Chem 7: 10/17/23 05:53 10/18/23 10:59 Labs: Abnormal Lab Results - Last 24 Hours (Table) 10/18/23 Range/Units 10:59 BUN 30 H (7-17) mg/dL Creatinine 1.37 H (0.52-1.04) mg/dL Glucose 140 H (74-99) mg/dL Calcium 8.1 L (8.4-10.2) mg/dL Assessment and Plan (1) Hematuria Current Visit: Yes Status: Acute Code(s): R31.9 - HEMATURIA, UNSPECIFIED SNOMED Code(s): 25830471 Plan: Will remove Crockett catheter. The chronic indwelling ureteral stent will not be addressed if the patient is to ultimately go into Hospice care.
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
--- NOTE | 2023-10-18 16:43 | P.PN ---
Subjective Progress Note Date: 10/18/23 CHIEF COMPLAINT: Acute cholecystitis HISTORY OF PRESENT ILLNESS: The patient is a 78-year-old female with metastatic endometrial cancer including pelvic mass with bowel obstruction requiring a small bowel bypass almost 1 month ago. Patient returned to the hospital with a new finding of hematuria. During her assessment, liver enzymes were elevated. Patient had new abdominal pain of the upper abdomen with HIDA scan confirming acute cholecystitis. She has undergone multiple cardiac risk assessments including recent echo less than 1 month ago where she had been cleared for surgery. Patient has been closely followed by nephrology where her kidney function has moderately improved. Decision making is done per her guardian. ROS: No reports of nausea and vomiting. No fevers or chills. No new chest pain. PHYSICAL EXAM: VITAL SIGNS: Reviewed CONSTITUTIONAL: Well developed and in no acute distress. EYES: Conjuctivae without sclera icterus. Extraocular movements grossly intact. HEAD, EARS, NOSE, THROAT: Moist buccal mucosa. Head is atraumatic, normocephalic. Hears conversational speech. No nasal drainage. RESPIRATORY: Non-labored respirations and equal bilateral excursions. CARDIOVASCULAR: Palpable 2+ radial pulses. ABDOMEN: No diffuse peritonitis. MUSCULOSKELETAL: No gross deformity of the lower extremities noted. No clubbing. No cyanosis. SKIN: Good skin turgor. Well perfused. NEUROLOGIC: Cranial nerves II through XII grossly intact. No focal or lateralizing signs. PSYCH: Alert to self. CLINICAL LABS: Reviewed. LFTs normalized including total bilirubin, AST, ALT, alkaline phosphatase. Creatinine moderately improved from 2.43 down to 1.37. STUDIES: CT of the abdomen pelvis demonstrating multiple large gallstones. This is my independent interpretation. Ultrasound of the gallbladder demonstrates gallbladder wall thickening concerning for acute cholecystitis. This is my independent interpretation. HIDA scan reviewed demonstrates no visualization of the gallbladder consistent with acute cholecystitis. ASSESSMENT: 1. Acute cholecystitis due to gallstones 2. Acute renal failure with gross hematuria, improved 3. Hypertensive heart disease PLAN: 1. Multiple consultants have been following the patient during her previous and current hospitalization including cardiology. Patient had multiple workup including echo, EKG and had tolerated moderately involved intra-abdominal surgery. Patient is cleared to undergo cholecystectomy as she is medically optimized. 2. Due to her pre-existing comorbid conditions, she is elevated risk however me dically optimized 3. Care plan discussed with patient including anesthesia provider, and patient's nurse Objective - Vital Signs Vital signs: Vital Signs Temp 97.8 F 10/18/23 16:00 Pulse 94 10/18/23 16:00 Resp 18 10/18/23 16:00 BP 149/72 10/18/23 16:00 Pulse Ox 100 10/18/23 16:00 FiO2 Intake & Output 10/17/23 10/18/23 10/18/23 18:59 06:59 18:59 Intake Total 838 Output Total 1225 500 675 Balance -387 -500 -675 Weight 89.811 kg Intake: Oral 838 Output: Urine 1225 500 675 Other: Voiding Method Indwelling Catheter Indwelling Catheter Indwelling Catheter - Labs CBC & Chem 7: 10/17/23 05:53 10/18/23 10:59 Labs: Abnormal Lab Results - Last 24 Hours (Table) 10/18/23 Range/Units 10:59 BUN 30 H (7-17) mg/dL Creatinine 1.37 H (0.52-1.04) mg/dL Glucose 140 H (74-99) mg/dL Calcium 8.1 L (8.4-10.2) mg/dL
--- NOTE | 2023-10-18 17:53 | CDI ---
Documentation Clarification Form Date: 10/18/2023 05:47:08 PM From: RIMA Ochoa Phone: [phone] Admit Date: 10/08/2023 07:35:00 PM Patient Name: Carli Higuera Visit Number: [id number] Discharge Date: ATTENTION: The Clinical Documentation Specialists (CDI) and [facility] Coding Staff appreciate your assistance in clarifying documentation. Please respond to the clarification below the line at the bottom and electronically sign. The CDI & [facility] Coding staff will review the response and follow-up if needed. Please note: Queries are made part of the Legal Health Record. If you have any questions, please contact the author of this message via ITS. Dr. Rad Betancur Candiduria/UTI POA is documented and patient has a Edward catheter POA per ED assessment. Additional clarification regarding the etiology of the UTI is requested. History/Risk Factors: Atrial Fibrillation, Cancer, CVA/TIA, GI Bleed, Hyperlipidemia, Myocardial Infarction, Former smoker, Clinical Indicators: 78-year-old female to the emergency department with concerns for anemia. Patient complains of some mild discomfort of lower abdomen. VS 168/109 150 22 98.3 94% RA Urinalysis: Urine WBC >183, Urine Bacteria Many; Stool occult blood -Positive Urine culture: 10/07 Bryanna Albicans 10/07 Labs: WBC 13.2, HGB 6.8, HGB 21.7, neutrophils 11.8, Na+ 136, BUN 26, CR 1.72, GFR 28, Lactic acid 3.5 Ct Scan shows the double J catheter, chronic right hydro, mild left hydro and a bladder a edward and probably some blood. 426 ED: Urinary Catheter assessment: Present on Admission: Yes, Date of Insertion 10/08/23 Urinary Tract Obstruction Retention (replaced in ED) Treatment: Diflucan 100 MG Once then 50 MG IVPB Daily 10/10 -10/11 Please clarify the etiology of the UTI, if known: [ ] Edward catheter [ X ] Right ureteral stent [ ] Right ureteral stent and Edward catheter [ ] UTI not related to Edward catheter or ureteral stent [ ] Other condition, please specify [ ] Unable to determine (Template Last Revised: August 2020) MTDD
[2023-10-18] MEDS: LACTATED RINGERS 1,000 ML IV ONE (18:00)
[2023-10-18] MEDS: DEXAMETHASONE SOD PHOSPHATE 4 MG/ML 1 ML VIAL IV ONE (18:21)
[2023-10-18] MEDS: ONDANSETRON 4 MG/2 ML VIAL IVP ONE (18:21)
[2023-10-18] MEDS ORDERED: SUCCINYLCHOLINE CHLORIDE 200 MG/10 ML VIAL IV ONE (18:43)
[2023-10-18] MEDS ORDERED: PROPOFOL 10 MG/ML 20 ML VIAL IV ONE (18:43)
[2023-10-18] MEDS ORDERED: ROCURONIUM 10 MG/ML (5 ML VIAL) IV ONE (18:43)
[2023-10-18] MEDS ORDERED: PHENYLEPHRINE-0.9% NACL SYG 1,000 MCG/10 ML SYRINGE ONE (18:43)
[2023-10-18] MEDS ORDERED: INDOCYANINE GREEN 25 MG VIAL IV ONE (18:43)
[2023-10-18] MEDS ORDERED: LABETALOL 5 MG/ML VIAL MDV ONE (18:43)
[2023-10-18] MEDS ORDERED: GLYCOPYRROLATE 0.2 MG/ML 2 ML VIAL ONE (18:43)
[2023-10-18] MEDS ORDERED: LIDOCAINE 1% INJ 10MG/ML (20 ML MDV) ONE (18:43)
[2023-10-18] MEDS ORDERED: NEOSTIGMINE 1 MG/ML 10 ML VIAL ONE (18:43)
[2023-10-18] MEDS ORDERED: ESMOLOL 100 MG/10 ML VIAL ONE (18:43)
[2023-10-18] MEDS ORDERED: fentaNYL (PF) 50 MCG/ML 2 ML AMP ONE (18:43)
[2023-10-18] MEDS: SODIUM CHLORIDE 0.9% 50 ML with ceFAZolin 2,000 MG IV ONE (19:16)
[2023-10-18] MEDS: LIDOCAINE 1%-EPI 1:100,000 20 ML VIAL SQ ONE (19:17)
[2023-10-18] MEDS: DILTIAZEM 125 MG in SODIUM CHLORIDE 0.9% 100 ML IV SCH (21:00)
--- NOTE | 2023-10-18 21:17 | P.OP ---
Date of Procedure: 10/18/23 Description of Procedure: SURGEON: JAIME SIDDIQUI MD PREOPERATIVE DIAGNOSES: 1. Acute cholecystitis due to cystic duct obstruction from gallstones 2. Acute renal failure with hematuria 3. Endometrial cancer localized metastases 4. Dementia 5. Chronic atrial fibrillation 6. History of myocardial infarction 7. History of transient ischemic attack 8. Hyperlipidemia 9. History of bowel obstruction due to endometrial cancer POSTOPERATIVE DIAGNOSES: 1. Acute cholecystitis due to cystic duct obstruction from gallstones 2. Acute renal failure with hematuria 3. Endometrial cancer localized metastases 4. Dementia 5. Chronic atrial fibrillation 6. History of myocardial infarction 7. History of transient ischemic attack 8. Hyperlipidemia 9. History of bowel obstruction due to endometrial cancer 10. Hydrops acute cholecystitis 11. Abdominal ascites 12. Right upper quadrant adhesions OPERATION: 1. Robotic-assisted da Radha Xi laparoscopic cholecystectomy, multiport with FIREFLY 2. Robotic-assisted da Radha Xi laparoscopic lysis of adhesions over 50% of the case ESTIMATED BLOOD LOSS: 5 mL. SPECIMENS REMOVED: 1. Gallbladder 2. Aerobic and anaerobic culture gallbladder fluid COMPLICATIONS: None. OPERATIVE FINDINGS: 1. Moderate scarring over entire gallbladder with peritoneal adhesions, pericholecystic with features of acute on chronic cholecystitis 2. Multiple gallstones over 6 identified at least 8 mm in size 3. Large impacted over 1 cm gallstone at infundibulum 4. Large hydropic gallbladder with acute cholecystitis 5. Abdominal ascites INDICATIONS: The patient is a 78-year-old female who presents with new acute cholecystitis due to large gallstones as confirmed on HIDA scan. Patient present back to the hospital with gross hematuria and incidental finding of elevated liver enzymes including new right upper quadrant abdominal pain. Ro botic assisted laparoscopic approach was described. Benefits and risks of the procedure including but not limited to bleeding, infection, injury to the biliary tree was described. Informed consent was obtained. Consent was obtained by her legal guardian. DESCRIPTION OF PROCEDURE: Patient was brought to the operating room, placed in supine position. After general induction, the abdomen had been prepped and draped in standard sterile fashion. The robotic da Radha XI system was primed. After a timeout protocol was performed, the patient had been prepped and draped in standard sterile fashion. The patient was injected with indocyanine green. A 5 mm 0 degrees laparoscopic trocar entry was performed along the left upper quadrant. The abdomen insufflated to 15 mmHg pressure which was tolerated well. Diagnostic laparoscopy demonstrated no injury to bowel viscera or mesentery. The liver surface was unremarkable. Next, two 8 mm robotic ports were placed along the right upper abdomen. The camera 8-mm port was maintained along the epigastrium. Another 8 mm port was placed along the left upper abdominal wall after exchanging the 5 mm port. Please note that the ports were placed at least 10 to 15 cm away from the target anatomy of the gallbladder. The robot was docked along the left lateral abdomen. The patient was repositioned in reverse Trendelenburg position. Using a grasper for arm 3, a grasper for arm 4, including hook cautery for arm 1, the robotic system was docked and primed as described. Instruments were interchanged by the assistant public defender including hook cautery, Bovie cautery and clip appliers. I had sat at the console. The gallbladder was scarred with peritoneal adhesions. Lysis of adhesions was performed to free the gallbladder from the surrounding tissues for over 50% of the case. Next attention was brought to the infundibulum and cystic structures. The infundibulum and cystic duct were dissected free from surrounding tissues. The cystic duct was isolated. Dome down technique was performed and isolating the infundibulum and cystic duct prior to dividing structures. The infundibulum was impacted with over 1 cm gallstone with minimal spillage of bile. FIREFLY was used to identify the cystic artery and cystic structures. A critical view of safety was obtained. Large PLASTIC clips were used throughout the entire case. Using a clip legal instructor, 2 clips were placed at the junction of the infundibulum and cystic duct. The cystic duct was divided between clips. Next, the cystic artery was similarly clipped and cauterized. Total of 4 clips were used at the hepatic fossa. Hemostasis was checked and found to be adequate. The robot was undocked. I re-scrubbed into the case. Using a 10 mm Endo Catch bag via the left upper quadrant incision, the specimen was removed from the abdominal cavity. Subcutaneous emphysema of the skin was massaged via the trocars. All pneumoperitoneum instruments were evacuated from the abdominal cavity. The incisions were reapproximated using 4-0 Monocryl in an interrupted subcuticular fashion. Fortunato Bhardwaj and 0 Vicryl were used to close the incision. Please note along the trocar sites, local anesthetic was placed as a field block prior to insertion of all instruments. Liquid glue was applied to the skin. At the end of the procedure needle, sponge, and instrument count had been verified correct by the surgical instrument mechanic. The patient was transferred to postanesthesia care unit in stable condition.
[2023-10-18] MEDS: LACTATED RINGERS 1,000 ML IV SCH (22:53)
[2023-10-18] MEDS: INDOCYANINE GREEN 25 MG VIAL IV STA (22:53)
[2023-10-19] MEDS ORDERED: HYDROmorphone 0.5 MG/0.5 ML SYRINGE IVP PRN (07:00)
[2023-10-19] MEDS: HEPARIN SODIUM,PORCINE 5,000 UNIT/ML 1 ML VIAL SQ SCH (07:54)
[2023-10-19 09:05] LABS: Anisocytosis Slight; Basophils % (A) 0 %; Eosinophils % (A) 0 %; HCT 29.6 % (34.0-46.0); Hypochromasia Marked; Lymphocytes # (A) 0.4 k/uL (1.0-4.8); Lymphocytes % (A) 4 %; MCH 31.9 pg (25.0-35.0); MCHC 30.4 g/dL (31.0-37.0); MCV 104.9 fL (80.0-100.0); Macrocytosis Moderate; Mean Platelet Volume 8.8; Monocytes # (A) 0.3 k/uL (0-1.0); Monocytes % (A) 3 %; Neutrophils # (A) 10.1 k/uL (1.3-7.7); Neutrophils % (A) 92 %; Platelet Count 247 k/uL (150-450); RBC 2.82 m/uL (3.80-5.40); RDW 16.7 % (11.5-15.5); WBC 10.9 k/uL (3.8-10.6)
[2023-10-19 09:32] LABS: African American GFR (CKD) 51 (>60 ml/min/1.73 sqM); Anion Gap 6 mmol/L; Blood Urea Nitrogen 30 mg/dL (7-17); Calcium 8.2 mg/dL (8.4-10.2); Carbon Dioxide 25 mmol/L (22-30); Chloride 105 mmol/L (98-107); Glucose 212 mg/dL (74-99); Non-African American GFR(CKD) 44 (>60 ml/min/1.73 sqM); Sodium 136 mmol/L (137-145)
[2023-10-19 09:43] LABS: Magnesium 1.7 mg/dL (1.6-2.3); Potassium 4.9 mmol/L (3.5-5.1)
[2023-10-19] MEDS ORDERED: Magnesium Replacement Protocol 1 EACH MISC MISCELLANE PRN (10:06)
--- NOTE | 2023-10-19 10:33 | P.PN ---
Subjective Patient is seen in follow-up for acute kidney injury. Renal function improving. Oral intake fair. No active complaints. Crockett catheter removed. Has been voiding on her own. Underwent cholecystectomy yesterday and went into A-fib with RVR after surgery. On Cardizem drip. Vital signs are stable. General: No acute distress. HEENT: Head exam is unremarkable. On nasal cannula. LUNGS: No audible rhonchi or wheezes. HEART: Rate and Rhythm are regular. ABDOMEN: Nontender. EXTREMITITES: 1+ edema. Objective - Vital Signs Vital signs: Vital Signs Temp 97.4 F L 10/19/23 07:50 Pulse 81 10/19/23 07:50 Resp 16 10/19/23 07:50 BP 128/80 10/19/23 07:50 Pulse Ox 99 10/19/23 07:50 FiO2 Intake & Output 10/18/23 10/19/23 10/19/23 18:59 06:59 18:59 Intake Total 900 350 180 Output Total 1275 105 Balance -375 245 180 Weight 89.811 kg 88 kg Intake: IV 900 350 Oral 180 Output: Urine 1275 100 Estimated Blood Loss 5 Other: Voiding Method Indwelling Catheter Diaper Diaper # Voids 1 - Labs CBC & Chem 7: 10/19/23 08:09 10/19/23 08:09 Labs: Abnormal Lab Results - Last 24 Hours (Table) 10/18/23 10/19/23 10/19/23 Range/Units 10:59 08:09 08:09 WBC 10.9 H (3.8-10.6) k/uL RBC 2.82 L (3.80-5.40) m/uL Hgb 9.0 L (11.4-16.0) gm/dL Hct 29.6 L (34.0-46.0) % MCV 104.9 H (80.0-100.0) fL MCHC 30.4 L (31.0-37.0) g/dL RDW 16.7 H (11.5-15.5) % Neutrophils # 10.1 H (1.3-7.7) k/uL Lymphocytes # 0.4 L (1.0-4.8) k/uL Sodium 136 L (137-145) mmol/L BUN 30 H 30 H (7-17) mg/dL Creatinine 1.37 H 1.17 H (0.52-1.04) mg/dL Glucose 140 H 212 H (74-99) mg/dL Calcium 8.1 L 8.2 L (8.4-10.2) mg/dL Assessment and Plan Plan: Assessment: 1. Acute kidney injury secondary to obstructive uropathy with bilateral hydronephrosis. Urology following. Renal function improving with creatinine 1.17 today. Baseline creatinine near 1 dated October 07, 2023. 2. Volume overload. Improving with diuresis. 3. Cholecystitis with multiple gallstones. HIDA scan showed nonvisualization of the gallbladder. Surgery following. Status postcholecystectomy October 18, 2023. 4. Acute blood loss anemia. Improved. Hemoglobin stable. Iron deficiency noted. Status post IV iron. On Aranesp. 5. Recent small bowel obstruction status post decompressive enterostomy with closure of small bowel, proximal ileum as well as small bowel external bypass proximal to mid ileum September 24, 2023. Surgery following. 6. Hypokalemia from diuresis. Replaced. Better. 7. A-fib with RVR maintained on Cardizem drip. 8. Hypomagnesemia from diuresis and poor intake. Being replaced. Plan: Maintain IV Lasix. Encouraged oral intake. Avoid nephrotoxins. Continue to monitor renal function and urine output.
[2023-10-19] MEDS: MAGNESIUM SULFATE-D5W PMX 1 GM in DEXTROSE/WATER 1 100ML.BAG IVPB SCH (11:07)
--- NOTE | 2023-10-19 12:44 | P.PN ---
Subjective Progress Note Date: 10/19/23 Principal diagnosis: Gross hematuria The Crockett catheter has been removed. The patient is voiding spontaneously. She has been noted to have hematuria without clots. Objective - Vital Signs Vital signs: Vital Signs Temp 97.4 F L 10/19/23 07:50 Pulse 61 10/19/23 11:05 Resp 16 10/19/23 11:05 BP 119/73 10/19/23 11:05 Pulse Ox 97 10/19/23 11:05 FiO2 Intake & Output 10/18/23 10/19/23 10/19/23 18:59 06:59 18:59 Intake Total 900 350 180 Output Total 1275 105 Balance -375 245 180 Weight 89.811 kg 88 kg Intake: IV 900 350 Oral 180 Output: Urine 1275 100 Estimated Blood Loss 5 Other: Voiding Method Indwelling Catheter Diaper Diaper # Voids 1 2 - Constitutional General appearance: Present: average body habitus, no acute distress - Labs CBC & Chem 7: 10/19/23 08:09 10/19/23 08:09 Labs: Abnormal Lab Results - Last 24 Hours (Table) 10/19/23 10/19/23 Range/Units 08:09 08:09 WBC 10.9 H (3.8-10.6) k/uL RBC 2.82 L (3.80-5.40) m/uL Hgb 9.0 L (11.4-16.0) gm/dL Hct 29.6 L (34.0-46.0) % MCV 104.9 H (80.0-100.0) fL MCHC 30.4 L (31.0-37.0) g/dL RDW 16.7 H (11.5-15.5) % Neutrophils # 10.1 H (1.3-7.7) k/uL Lymphocytes # 0.4 L (1.0-4.8) k/uL Sodium 136 L (137-145) mmol/L BUN 30 H (7-17) mg/dL Creatinine 1.17 H (0.52-1.04) mg/dL Glucose 212 H (74-99) mg/dL Calcium 8.2 L (8.4-10.2) mg/dL Assessment and Plan (1) Hematuria Current Visit: Yes Status: Acute Code(s): R31.9 - HEMATURIA, UNSPECIFIED SNOMED Code(s): 97747167 Plan: Observed. The chronic indwelling ureteral stent will not be addressed if the patient is to ultimately go into Hospice care.
--- NOTE | 2023-10-19 13:45 | P.PN ---
Subjective Progress Note Date: 10/19/23 CHIEF COMPLAINT: Gallstones HISTORY OF PRESENT ILLNESS: Patient is postop day #1 status post robotic chol ecystectomy and lysis of adhesions. Patient lying in bed comfortably. She denies any abdominal pain. Denies any nausea or vomiting. She reports eating breakfast. Denies any flatus or bowel movement. She states it has been several days since her last bowel movement. last BM charted October 16. Afebrile. WBC is 10.9 Hgb 9.0 platelets 247 sodium 136 potassium 4.9 creatinine 1.17 patient tachycardic Cardizem drip was started for A-fib RVR. PHYSICAL EXAM: VITAL SIGNS: Reviewed GENERAL: Well-developed in no acute distress. HEENT: No sclera icterus. Extraocular movements grossly intact. Moist buccal mucosa. Head is atraumatic, normocephalic. Hears conversational speech. No nasal drainage. NECK: Supple without lymphadenopathy. CHEST: Non-labored respirations and equal bilateral excursions. CARDIOVASCULAR: Palpable 2+ radial pulses. ABDOMEN: Soft. Nondistended. Incision sites clean dry and intact MUSCULOSKELETAL: No clubbing or cyanosis. NEUROLOGIC: No focal or lateralizing signs. Cranial nerves II through XII grossly intact. PSYCH: Awake. Pleasantly confused. Able to answer some questions appropriately. SKIN: Well perfused. Good skin turgor. ASSESSMENT: 1. Acute cholecystitis due to cystic duct obstruction from gallstones 2. Acute renal failure with hematuria 3. Endometrial cancer localized metastases 4. Dementia 5. Chronic atrial fibrillation 6. History of myocardial infarction 7. History of transient ischemic attack 8. Hyperlipidemia 9. History of bowel obstruction due to endometrial cancer 10. Hydrops acute cholecystitis 11. Abdominal ascites 12. Right upper quadrant adhesions PLAN: -Continue low-fat diet -Continue pain management -Colace added for constipation Physician [employer] note has been reviewed by physician. Signing provider agrees with the documented findings, assessment, and plan of care. Objective - Vital Signs Vital signs: Vital Signs Temp 97.4 F L 10/19/23 07:50 Pulse 61 10/19/23 11:05 Resp 16 10/19/23 11:05 BP 119/73 10/19/23 11:05 Pulse Ox 97 10/19/23 11:05 FiO2 Intake & Output 10/18/23 10/19/23 10/19/23 18:59 06:59 18:59 Intake Total 900 350 180 Output Total 1275 105 Balance -375 245 180 Weight 89.811 kg 88 kg Intake: IV 900 350 Oral 180 Output: Urine 1275 100 Estimated Blood Loss 5 Other: Voiding Method Indwelling Catheter Diaper Diaper # Voids 1 2 - Labs CBC & Chem 7: 10/19/23 08:09 10/19/23 08:09 Labs: Abnormal Lab Results - Last 24 Hours (Table) 10/19/23 10/19/23 Range/Units 08:09 08:09 WBC 10.9 H (3.8-10.6) k/uL RBC 2.82 L (3.80-5.40) m/uL Hgb 9.0 L (11.4-16.0) gm/dL Hct 29.6 L (34.0-46.0) % MCV 104.9 H (80.0-100.0) fL MCHC 30.4 L (31.0-37.0) g/dL RDW 16.7 H (11.5-15.5) % Neutrophils # 10.1 H (1.3-7.7) k/uL Lymphocytes # 0.4 L (1.0-4.8) k/uL Sodium 136 L (137-145) mmol/L BUN 30 H (7-17) mg/dL Creatinine 1.17 H (0.52-1.04) mg/dL Glucose 212 H (74-99) mg/dL Calcium 8.2 L (8.4-10.2) mg/dL
--- NOTE | 2023-10-19 16:07 | P.PN ---
Subjective Progress Note Date: 10/19/23 HISTORY OF PRESENT ILLNESS: This is a 78-year-old female with a past medical history significant for non ischemic cardiomyopathy, CVA, mitral regurgitation, and persistent atrial fibrillation. Patient follows in the office with Dr. [place]. We have been asked to see the patient in consultation for A-fib with RVR. Patient examined at the bedside in the emergency room. Patient is a poor historian. There is no family present. Patient was recently hospitalized with a prolonged hospitalization from September 16, 2023 until October 05, 2023 for small bowel obstruction. The patient also was diagnosed with secondary peritonitis, acute/subacute CVA involving the left cerebellum, and silent aspiration during that hospitalization. She was discharged to [facility]. The patient was brought to the hospital secondary to hematuria noted in her Crockett catheter bag. Additionally the patient was found to be anemic with a hemoglobin of 6.8. Previous hemoglobin in the range of 912. Patient did receive 1 unit of packed RBCs. Repeat hemoglobin this morning is 8.0. EKG on admission reveals atrial fibrillation with RVR. Patient was started on IV Cardizem which has since been discontinued. Bedside telemetry reveals atrial fibrillation with a heart rate around 110. DIAGNOSTICS: - EKG reveals atrial fibrillation with RVR. Heart rate 132. - Chest xray: Moderate acute cardiopulmonary disease essentially unchanged compared to previous. Findings suggest CHF although bibasilar pneumonia with small effusions not excluded. - Laboratory data: WBC 14.0. Hemoglobin 8.0. Platelet count 258. Sodium 138. Potassium 5.0. BUN 30. Creatinine 2.13. Lactic acid 3.5. Troponin negative x 1. - Current home cardiac medications include aspirin 81 mg daily, Lipitor 20 mg at night, metoprolol titrate 50 mg 3 times a day. - Most recent echocardiogram obtained on 10/04/2023 revealed ejection fraction 50%, mild aortic regurgitation, moderate TR, moderate MR, trace pulmonic regurgitation, inferior wall hypokinesis. - Cardiac catheterization history: 2016 revealing normal coronary arteries 10/09 Patient is seen today in follow-up on the cardiac stepdown unit. Patient remains in atrial fibrillation with heart rate running about 115, blood pressure 124/74, pulse ox 95% on 2 L nasal cannula. She is currently maintained on Lopressor 25 mg 3 times daily. Repeat blood work reveals hemoglobin of 8 and she is status post transfusion of 1 unit of packed RBCs. WBC 14, platelet count 258. CO2 is 19, BUN 30 and creatinine 2.13. Patient has been seen by urology. 10/11/2023 Patient examined this morning at the bedside. Patient is somewhat lethargic at the time of examination. She denies chest pain or pressure. She denies shortness of breath. Remote telemetry reveals atrial fibrillation with controlled ventricular rate. Patient has an indwelling urinary catheter with continued hematuria. 10/18 Cardiology has been reconsulted because patient went into A-fib with RVR in the postop period. Yesterday, patient underwent robotic assisted laparoscopic cholecystectomy. Patient was found to be in A-fib with RVR in the 120s and started on Cardizem drip. Patient is currently rate controlled. She states she has a good appetite. She denies any palpitations. Heart rate is running in the 60s and 70s, blood pressure 119/73, pulse ox 97% on 2 L nasal cannula. PHYSICAL EXAM: VITAL SIGNS: Reviewed. GENERAL: Well-developed in no acute distress. NECK: Supple. No JVD or thyromegaly LUNGS: Respirations even and unlabored. Lungs essentially clear to auscultation bilaterally. HEART: Irregular rate and rhythm. S1 and S2 heard. Systolic murmur noted EXTREMITIES: Normal range of motion. No clubbing or cyanosis. Peripheral pulses intact. Trace bilateral lower extremity edema ASSESSMENT: Hematuria Acute anemia, hemoglobin 6.8, previously 912 during recent hospitalization Persistent atrial fibrillation with RVR, not anticoagulated on an outpatient basis secondary to significant vaginal bleeding/endometrial adenocarcinoma Recent hospitalization for small bowel obstruction secondary to frozen abdomen and pelvic malignancy. Pathology positive for endometrial adenocarcinoma. Dickson lopez also had secondary peritonitis. History of recent acute/subacute CVA involving left cerebellum, 09/2023 History of silent aspiration during hospitalization 09/2023 History of nonischemic cardiomyopathy Normal coronary arteries, per cardiac catheterization 2016 Moderate pulmonary hypertension Moderate to severe mitral regurgitation Chronic kidney disease History of CVA PLAN: Continue current cardiac medications Patient is not anticoagulated on an outpatient basis secondary to significant vaginal bleeding/endometrial adenocarcinoma No further inpatient recommendations from a cardiac standpoint Discontinue Cardizem drip and continue patient's home cardiac medications for rate control Cardiology will sign off this case and follow on an as-needed basis. Please reconsult for any new concerns. Patient may follow-up in the office in one to 2 weeks. Nurse practitioner note has been reviewed by physician. Signing provider agrees with the documented findings, assessment, and plan of care documented by [employer] as a scribe. Objective - Vital Signs Vital signs: Vital Signs Temp 97.4 F L 10/19/23 07:50 Pulse 61 10/19/23 11:05 Resp 16 10/19/23 11:05 BP 119/73 10/19/23 11:05 Pulse Ox 97 10/19/23 11:05 FiO2 Intake & Output 10/18/23 10/19/23 10/19/23 18:59 06:59 18:59 Intake Total 900 350 180 Output Total 1275 105 Balance -375 245 180 Weight 89.811 kg 88 kg Intake: IV 900 350 Oral 180 Output: Urine 1275 100 Estimated Blood Loss 5 Other: Voiding Method Indwelling Catheter Diaper Diaper # Voids 1 2 - Labs CBC & Chem 7: 10/19/23 08:09 10/19/23 08:09 Labs: Abnormal Lab Results - Last 24 Hours (Table) 10/19/23 10/19/23 Range/Units 08:09 08:09 WBC 10.9 H (3.8-10.6) k/uL RBC 2.82 L (3.80-5.40) m/uL Hgb 9.0 L (11.4-16.0) gm/dL Hct 29.6 L (34.0-46.0) % MCV 104.9 H (80.0-100.0) fL MCHC 30.4 L (31.0-37.0) g/dL RDW 16.7 H (11.5-15.5) % Neutrophils # 10.1 H (1.3-7.7) k/uL Lymphocytes # 0.4 L (1.0-4.8) k/uL Sodium 136 L (137-145) mmol/L BUN 30 H (7-17) mg/dL Creatinine 1.17 H (0.52-1.04) mg/dL Glucose 212 H (74-99) mg/dL Calcium 8.2 L (8.4-10.2) mg/dL
[2023-10-19] MEDS: DOCUSATE 100 MG CAP PO SCH (17:23)
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
[2023-10-20 09:51] VITALS: RESP 18
[2023-10-20 11:12] LABS: Anisocytosis Slight; Basophils % (A) 0 %; Eosinophils % (A) 0 %; HCT 27.4 % (34.0-46.0); HGB 8.3 gm/dL (11.4-16.0); Hypochromasia Marked; Lymphocytes # (A) 0.5 k/uL (1.0-4.8); Lymphocytes % (A) 5 %; MCH 31.3 pg (25.0-35.0); MCHC 30.2 g/dL (31.0-37.0); MCV 103.6 fL (80.0-100.0); Macrocytosis Moderate; Mean Platelet Volume 8.1; Monocytes # (A) 0.6 k/uL (0-1.0); Monocytes % (A) 5 %; Neutrophils # (A) 10.2 k/uL (1.3-7.7); Neutrophils % (A) 89 %; Platelet Count 290 k/uL (150-450); RBC 2.64 m/uL (3.80-5.40); RDW 16.6 % (11.5-15.5); WBC 11.4 k/uL (3.8-10.6)
[2023-10-20 11:39] LABS: ALT 25 U/L (4-34); AST 37 U/L (14-36); African American GFR (CKD) 35 (>60 ml/min/1.73 sqM); Albumin 2.2 g/dL (3.5-5.0); Alkaline Phosphatase 74 U/L (38-126); Anion Gap 5 mmol/L; Blood Urea Nitrogen 34 mg/dL (7-17); Calcium 8.2 mg/dL (8.4-10.2); Carbon Dioxide 24 mmol/L (22-30); Chloride 104 mmol/L (98-107); Glucose 239 mg/dL (74-99); Non-African American GFR(CKD) 31 (>60 ml/min/1.73 sqM); Potassium 4.7 mmol/L (3.5-5.1); Sodium 133 mmol/L (137-145); Total Bilirubin 0.4 mg/dL (0.2-1.3); Total Protein 4.8 g/dL (6.3-8.2)
--- NOTE | 2023-10-20 12:03 | P.PN ---
Subjective Patient is seen in follow-up for acute kidney injury. Renal function worse today from diuresis. Oral intake fair. No active complaints. Crockett catheter removed. Has been voiding on her own but is incontinent. Cardizem drip discontinued. Vital signs are stable. General: No acute distress. HEENT: Head exam is unremarkable. On nasal cannula. LUNGS: No audible rhonchi or wheezes. HEART: Rate and Rhythm are regular. ABDOMEN: Nontender. EXTREMITITES: 1+ edema. Objective - Vital Signs Vital signs: Vital Signs Temp 98.1 F 10/20/23 08:00 Pulse 115 H 10/20/23 08:00 Resp 18 10/20/23 08:00 BP 147/83 10/20/23 08:00 Pulse Ox 96 10/20/23 08:00 FiO2 Intake & Output 10/19/23 10/20/23 10/20/23 18:59 06:59 18:59 Intake Total 540 180 Balance 540 180 Weight 83 kg Intake: Oral 540 180 Other: Voiding Method Diaper Diaper Diaper # Voids 1 - Labs CBC & Chem 7: 10/20/23 10:27 10/20/23 10:27 Labs: Abnormal Lab Results - Last 24 Hours (Table) 10/20/23 10/20/23 Range/Units 10:27 10:27 WBC 11.4 H (3.8-10.6) k/uL RBC 2.64 L (3.80-5.40) m/uL Hgb 8.3 L (11.4-16.0) gm/dL Hct 27.4 L (34.0-46.0) % MCV 103.6 H (80.0-100.0) fL MCHC 30.2 L (31.0-37.0) g/dL RDW 16.6 H (11.5-15.5) % Neutrophils # 10.2 H (1.3-7.7) k/uL Lymphocytes # 0.5 L (1.0-4.8) k/uL Sodium 133 L (137-145) mmol/L BUN 34 H (7-17) mg/dL Creatinine 1.59 H (0.52-1.04) mg/dL Glucose 239 H (74-99) mg/dL Calcium 8.2 L (8.4-10.2) mg/dL AST 37 H (14-36) U/L Total Protein 4.8 L (6.3-8.2) g/dL Albumin 2.2 L (3.5-5.0) g/dL Assessment and Plan Plan: Assessment: 1. Acute kidney injury secondary to obstructive uropathy with bilateral hydronephrosis. Also component of hemodynamic ATN. Urology following. Creatinine 1.59 today. Baseline creatinine near 1 dated October 07, 2023. 2. Volume overload. Improving with diuresis. 3. Cholecystitis with multiple gallstones. HIDA scan showed nonvisualization of the gallbladder. Surgery following. Status postcholecystectomy October 18, 2023. 4. Acute blood loss anemia. Improved. Hemoglobin stable. Iron deficiency noted. Status post IV iron. On Aranesp. 5. Recent small bowel obstruction status post decompressive enterostomy with closure of small bowel, proximal ileum as well as small bowel external bypass proximal to mid ileum September 24, 2023. Surgery following. 6. Hypokalemia from diuresis. Replaced. Better. 7. A-fib with RVR status post Cardizem drip. On Lopressor. 8. Hypomagnesemia from diuresis and poor intake. Replaced. Better. Plan: Change Lasix to 40 mg orally once daily. Encouraged oral intake. Avoid nephrotoxins. Continue to monitor renal function and urine output.
--- NOTE | 2023-10-20 12:24 | P.PN ---
Subjective Progress Note Date: 10/20/23 CHIEF COMPLAINT: Gallstones HISTORY OF PRESENT ILLNESS: Patient is postop day #2 status post robotic chol ecystectomy and lysis of adhesions. Patient lying in bed comfortably. No new complaints. Crockett catheter is out. WBC is 11.4 Hgb 8.3 creatinine 1.59 PHYSICAL EXAM: VITAL SIGNS: Reviewed GENERAL: Well-developed in no acute distress. HEENT: No sclera icterus. Extraocular movements grossly intact. Moist buccal mucosa. Head is atraumatic, normocephalic. Hears conversational speech. No nasal d rainage. NECK: Supple without lymphadenopathy. CHEST: Non-labored respirations and equal bilateral excursions. CARDIOVASCULAR: Palpable 2+ radial pulses. ABDOMEN: Soft. Nondistended. Incision sites clean dry and intact MUSCULOSKELETAL: No clubbing or cyanosis. NEUROLOGIC: No focal or lateralizing signs. Cranial nerves II through XII grossly intact. PSYCH: Awake. Pleasantly confused. Able to answer some questions appropriately. SKIN: Well perfused. Good skin turgor. ASSESSMENT: 1. Acute cholecystitis due to cystic duct obstruction from gallstones 2. Acute renal failure with hematuria 3. Endometrial cancer localized metastases 4. Dementia 5. Chronic atrial fibrillation 6. History of myocardial infarction 7. History of transient ischemic attack 8. Hyperlipidemia 9. History of bowel obstruction due to endometrial cancer 10. Hydrops acute cholecystitis 11. Abdominal ascites 12. Right upper quadrant adhesions PLAN: -Continue low-fat diet -Continue pain management -Patient can be discharged from surgical standpoint when medically cleared Physician Resident Services Manager note has been reviewed by physician. Signing provider agrees with the documented findings, assessment, and plan of care. Objective - Vital Signs Vital signs: Vital Signs Temp 98.1 F 10/20/23 08:00 Pulse 115 H 10/20/23 08:00 Resp 18 10/20/23 08:00 BP 147/83 10/20/23 08:00 Pulse Ox 96 10/20/23 08:00 FiO2 Intake & Output 10/19/23 10/20/23 10/20/23 18:59 06:59 18:59 Intake Total 540 180 Balance 540 180 Weight 83 kg Intake: Oral 540 180 Other: Voiding Method Diaper Diaper Diaper # Voids 1 - Labs CBC & Chem 7: 10/20/23 10:27 10/20/23 10:27 Labs: Abnormal Lab Results - Last 24 Hours (Table) 10/20/23 10/20/23 Range/Units 10:27 10:27 WBC 11.4 H (3.8-10.6) k/uL RBC 2.64 L (3.80-5.40) m/uL Hgb 8.3 L (11.4-16.0) gm/dL Hct 27.4 L (34.0-46.0) % MCV 103.6 H (80.0-100.0) fL MCHC 30.2 L (31.0-37.0) g/dL RDW 16.6 H (11.5-15.5) % Neutrophils # 10.2 H (1.3-7.7) k/uL Lymphocytes # 0.5 L (1.0-4.8) k/uL Sodium 133 L (137-145) mmol/L BUN 34 H (7-17) mg/dL Creatinine 1.59 H (0.52-1.04) mg/dL Glucose 239 H (74-99) mg/dL Calcium 8.2 L (8.4-10.2) mg/dL AST 37 H (14-36) U/L Total Protein 4.8 L (6.3-8.2) g/dL Albumin 2.2 L (3.5-5.0) g/dL
[2023-10-20 13:42] VITALS: BP 127/81; PULSE 89; TEMP 97.8
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
[2023-10-21] MEDS ORDERED: FUROSEMIDE 40 MG TAB PO SCH (09:00)
--- NOTE | 2023-10-21 15:12 | CDI ---
Documentation Clarification Form Date: 10/21/2023 02:49:50 PM From: Meenu Moulton RN, CCDS Phone: [phone] Admit Date: 10/08/2023 07:35:00 PM Patient Name: Carli Higuera Visit Number: [id number] Discharge Date: 10/20/2023 06:42:00 PM ATTENTION: The Clinical Documentation Specialists (CDI) and [facility] Coding Staff appreciate your assistance in clarifying documentation. Please respond to the clarification below the line at the bottom and electronically sign. The CDI & [facility] Coding staff will review the response and follow-up if needed. Please note: Queries are made part of the Legal Health Record. If you have any questions, please contact the author of this message via ITS. Dr. Biju Sanabria The 10/07 ED note indicates potential concern for sepsis. Based on this information and the findings below, is there an additional diagnosis that is clinically appropriate for this patient? History/Risk Factors: Cervical cancer with radiation, recent bowel obstruction with surgery, CVA, A fib and GI bleed. Presents with blood in her edward bag and anemia. Clinical Indicators: 10/07 ED: "There is potential for sepsis concern at 1936. Blood culture and lactic acid and IV antibiotics have all been ordered." 10/10 Surgery: "WBC trending upward over 16,000, leukocytosis. Acute renal failure, creatinine elevated 2.1-3.4." 10/07-10/14 WBC: 13.2-14.0-16.4-11.8-9.0 10/07-10/14 Neutrophils: 11.8-11.9-14.7-7.4 10/07 Lactic acid: 3.5 10/07-10/14 Cr: 1.72-2.13-3.21-3.40 10/07 Vitals signs: HR 150, RR 22 Discharge summary: "Acute blood loss anemia secondary to gross hematuria. from radiation cystitis. Acute metabolic encephalopathy, improved. HIDA scan suspicious for acute cholecystitis, status post laparoscopic cholecystectomy on 10/18/2023. Acute candiduria/UTI, present on admission, has completed Diflucan course." Treatment: s/p lap cholecystectomy Antibiotics: IV Rocephin 2gm x1 on 10/07 and 10/08; IV Fluconazole 50mg daily 10/10-10/14; po Augmentin 10/09-10/13 IV Bolus: 1L LR IV bolus x1 on 10/10 Is there an additional diagnosis that is clinically appropriate for this patient? [ + ] Sepsis, present on admission [ ] SIRS, without underlying infectious process [ ] No additional diagnosis/not clinically significant [ ] Other, please specify [ ] Unable to determine SIRS Criteria: 2 or more of the following may indicate SIRS Temperature < 96.8F (36C) or > 101.0F (38.3C) Heart Rate > 90 bpm Respiratory Rate > 20 breaths/min or PaCO2 < 32 mmHg White Blood Cell Count > 12,000 or < 4,000 cells/mm3 or > 10% bands MTDD
== END 2023-10-20 18:42 | DRG 673 ==
LOC: EC 14:19 → 3SCARD 19:35
PROVIDERS: ADMIT Hospitalist; ATTEND Hospitalist
PROC: 30233N1 Transfusion of Nonautologous Red Blood Cells into Peripheral Vein, Percutaneous Approach (ICD-10-PCS; 2023-10-08)
PROC: 0DNW4ZZ Release Peritoneum, Percutaneous Endoscopic Approach (ICD-10-PCS; principal; 2023-10-18 19:18)
PROC: 8E0W4CZ Robotic Assisted Procedure of Trunk Region, Percutaneous Endoscopic Approach (ICD-10-PCS; principal; 2023-10-18 19:18)
PROC: 0FT44ZZ Resection of Gallbladder, Percutaneous Endoscopic Approach (ICD-10-PCS; principal; 2023-10-18 19:18)
DX: T83.592A Infection and inflammatory reaction due to indwelling ureteral stent, initial encounter (principal); A41.9 Sepsis, unspecified organism; E43 Unspecified severe protein-calorie malnutrition; G93.41 Metabolic encephalopathy; K80.67 Calculus of gallbladder and bile duct with acute and chronic cholecystitis with obstruction; N17.0 Acute kidney failure with tubular necrosis; N30.41 Irradiation cystitis with hematuria; B37.49 Other urogenital candidiasis; C78.7 Secondary malignant neoplasm of liver and intrahepatic bile duct; D62 Acute posthemorrhagic anemia; F01.54 Vascular dementia, unspecified severity, with anxiety; I13.0 Hypertensive heart and chronic kidney disease with heart failure and stage 1 through stage 4 chronic kidney disease, or unspecified chronic kidney disease; I42.8 Other cardiomyopathies; I48.19 Other persistent atrial fibrillation; I50.32 Chronic diastolic (congestive) heart failure; K56.50 Intestinal adhesions [bands], unspecified as to partial versus complete obstruction; K82.1 Hydrops of gallbladder; L97.122 Non-pressure chronic ulcer of left thigh with fat layer exposed; R18.8 Other ascites; K92.1 Melena; N13.1 Hydronephrosis with ureteral stricture, not elsewhere classified; L89.899 Pressure ulcer of other site, unspecified stage; L89.152 Pressure ulcer of sacral region, stage 2; Z93.4 Other artificial openings of gastrointestinal tract status; I27.20 Pulmonary hypertension, unspecified; R54 Age-related physical debility; C53.9 Malignant neoplasm of cervix uteri, unspecified; C54.1 Malignant neoplasm of endometrium; E27.9 Disorder of adrenal gland, unspecified; E78.5 Hyperlipidemia, unspecified; E83.42 Hypomagnesemia; T50.2X5A Adverse effect of carbonic-anhydrase inhibitors, benzothiadiazides and other diuretics, initial encounter; E87.6 Hypokalemia; I08.1 Rheumatic disorders of both mitral and tricuspid valves; I25.10 Atherosclerotic heart disease of native coronary artery without angina pectoris; I25.2 Old myocardial infarction; Z86.16 Personal history of COVID-19; N94.89 Other specified conditions associated with female genital organs and menstrual cycle; R74.8 Abnormal levels of other serum enzymes; R73.03 Prediabetes; N18.32 Chronic kidney disease, stage 3b; T24.019A Burn of unspecified degree of unspecified thigh, initial encounter; X10.0XXA Contact with hot drinks, initial encounter; Y84.2 Radiological procedure and radiotherapy as the cause of abnormal reaction of the patient, or of later complication, without mention of misadventure at the time of the procedure; Z86.73 Personal history of transient ischemic attack (TIA), and cerebral infarction without residual deficits; Z79.82 Long term (current) use of aspirin; Z79.899 Other long term (current) drug therapy; Z92.3 Personal history of irradiation; Z68.27 Body mass index [BMI] 27.0-27.9, adult; Z87.19 Personal history of other diseases of the digestive system; Z96.0 Presence of urogenital implants; Z95.5 Presence of coronary angioplasty implant and graft
CPT/HCPCS: 36415; 36430; 71045; 74176; 76705; 78226; 80048; 80053; 81001; 82272; 83540; 83550; 83605; 83735; 84484; 85025; 85027; 85610; 85730; 86850; 86900; 86901; 86920; 87040; 87086; 88304; 93005; 94760; 96361; 96365; 96366; 96368; 96375; 96376; 99291

== ENCOUNTER 2023-11-25 00:52 | Inpatient (IN) | payer MEDICARE, OTHER ==
--- NOTE | 2023-11-25 01:13 | ED ---
General Adult HPI - General Chief complaint: Altered Mental Status Stated complaint: alt mental Time Seen by Provider: 11/25/23 00:55 Source: EMS Mode of arrival: EMS - History of Present Illness Initial comments: Dictation was produced using [employer] dictation software. please excuse any grammatical, word or spelling errors. Chief Complaint: 78-year-old female with history of dementia presents to the emergency department for altered mental status History of Present Illness: 78-year-old female she is a poor historian. Patient has history of dementia. History is limited to EMS. According to EMS patient was brought to the emergency department for 1 week of altered mental status. Seem to have escalated today. EMS states that they believe she has a UTI. Patient denies any complaints at the bedside although she is a poor historian. The ROS documented in this emergency department record has been reviewed and confirmed by me. Those systems with pertinent positive or negative responses have been documented in the HPI. All other systems are other negative and/or noncontributory. - Related Data Home Medications Medication Instructions Recorded Confirmed Acetaminophen Tab [Tylenol] 650 mg PO Q6H PRN 10/08/23 10/08/23 Previous Rx's Medication Instructions Recorded Atorvastatin [Lipitor] 20 mg PO HS tab 10/05/23 Folic Acid 1 mg PO DAILY tab 10/05/23 Lidocaine 4% Patch 1 patch TOPICAL DAILY #3 patch 10/05/23 Darbepoetin Robert [Aranesp] 40 mcg SQ Q7D each 10/20/23 Docusate [Colace] 100 mg PO BID cap 10/20/23 Furosemide [Lasix] 40 mg PO DAILY tab 10/20/23 Heparin Sodium,Porcine (1 ml) 5,000 unit SQ Q12HR each 10/20/23 [Heparin Sodium] Metoprolol Tartrate [Lopressor] 100 mg PO BID tab 10/20/23 Allergies Allergy/AdvReac Type Severity Reaction Status Date / Time No Known Allergies Allergy Verified 11/25/23 01:01 Review of Systems ROS Statement: Those systems with pertinent positive or pertinent negative responses have been documented in the HPI. ROS Other: All systems not noted in ROS Statement are negative. Past Medical History Past Medical History: Atrial Fibrillation, Cancer, CVA/TIA, GI Bleed, Hyperlipidemia, Myocardial Infarction ([place]) Additional Past Medical History / Comment(s): 07/27/17 FALL'[employer] HIP FX. 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 H istory of COVID-19, cervical cancer treated with radiation. No taking Eliquis due to bleeding issues in past. SBO 09/2023 Last Myocardial Infarction Date:: 2009 History of Any Multi-Drug Resistant Organisms: None Reported Past Surgical History: Heart Catheterization, Orthopedic Surgery, Tonsillectomy Additional Past Surgical History / Comment(s): ORIF RT ANKLE HAS PLATE. Past Anesthesia/Blood Transfusion Reactions: No Reported Reaction Past Psychological History: No Psychological Hx Reported Smoking Status: Former smoker, Never smoker - Past Family History Mother Family Medical History: No Reported History Additional Family Medical History / Comment(s): FROM ANUERYSM Father Family Medical History: No Reported History General Exam - General Exam Comments Initial Comments: PHYSICAL EXAM: General Impression: Alert and oriented x2/4, not in acute distress HEENT: Normocephalic atraumatic, extra-ocular movements intact, pupils equal and reactive to light bilaterally, mucous membranes moist. Cardiovascular: Heart regular rate and rhythm Chest: Able to complete full sentences, no retractions, no tachypnea Abdomen: abdomen soft, non-tender, non-distended, no organomegaly Musculoskeletal: Pulses present and equal in all extremities, no peripheral edema Motor: no focal deficits noted Neurological: CN II-XII grossly intact, no focal motor or sensory deficits noted Skin: Intact with no visualized rashes Psych: Normal affect and mood Course Vital Signs 11/25/23 11/25/23 11/25/23 00:57 02:01 04:02 Temperature 97.4 F L Pulse Rate 103 H 124 H 112 H Respiratory 17 20 18 Rate Blood Pressure 132/85 113/72 122/92 O2 Sat by Pulse 99 99 99 Oximetry EKG Findings - EKG Comments: EKG Findings:: My EKG interpretation: Ventricular rate 127, A-fib with RVR, QRS 86, QTc 378. No UT prolongation, no QTC prolongation, no ST or T-wave changes noted. EKG compared to October 10, 2023 showing no changes. Overall, this EKG is unremarkable Medical Decision Making - Medical Decision Making Was pt. sent in by a medical professional or institution (CARRIE Ricks, STREET SWEEPER OPERATOR, urgent care, hospital, or senior living...) When possible be specific @ -No Did you speak to anyone other than the patient for history (EMS, parent, family, police, friend...)? What history was obtained from this source @ -No Did you review nursing and triage notes (agree or disagree)? Why? @ -I reviewed and agree with nursing and triage notes Were old charts reviewed (outside hosp., previous admission, EMS record, old EKG, old radiological studies, urgent care reports/EKG's, senior living records)? Report findings @ -No old charts were reviewed Differential Diagnosis (chest pain, altered mental status, abdominal pain women, abdominal pain men, vaginal bleeding, musculoskeletal, weakness, fever, dyspnea, syncope, headache, dizziness, GI bleed, back pain, seizure, CVA, pal patations, mental health)? @ -Differential Altered Mental Status: Hypoglycemia, DKA, hypercapnia, ETOH, overdose, CO poisoning, trauma, myxedema coma, HTN encephalopathy, infection, encephalitis, psychosis, intercranial hemorrhage, hepatic encephalopathy, meningitis, CVA, this is not meant to be an all-inclusive list EKG interpreted by me (3pts min.). @ -See above X-rays interpreted by me (1pt min.). @ -Chest x-ray shows CHF with large right pleural effusion CT interpreted by me (1pt min.). @ -CT brain shows no acute processes U/S interpreted by me (1pt. min.). @ -None done What testing was considered but not performed or refused? (CT, X-rays, U/S, labs)? Why? @ -None What meds were considered but not given or refused? Why? @ -None Did you discuss the management of the patient with other professionals (professionals i.e. CARRIE Ricks, STREET SWEEPER OPERATOR, lab, RT, psych nurse, social sciences instructor, real estate processor, teacher, [place] police officer, home health care case manager)? Give summary @ -Case discussed with hospitalist for admission Was smoking cessation discussed for >3mins.? @ -No Was critical care preformed (if so, how long)? @ -yes Were there social determinants of health that impacted care today? How? (Homelessness, low income, unemployed, alcoholism, drug addiction, transportation, low edu. Level, literacy, decrease access to med. care, alf, rehab)? @ -No Was there de-escalation of care discussed even if they declined (Discuss DNR or withdrawal of care, Hospice)? DNR status @ -No What co-morbidities impacted this encounter? (DM, HTN, Smoking, COPD, CAD, Cancer, CVA, ARF, Chemo, Hep., AIDS, mental health diagnosis, sleep apnea, morbid obesity)? @ -Dementia Was patient admitted / discharged? Hospital course, mention meds given and route, prescriptions, significant lab abnormalities, going to OR and other pertinent info. @ -78-year-old female presents to the emergency department for altered mental status. She has a history of dementia. Vital signs upon arrival shows mild tachycardia. EKG shows A-fib with RVR. Patient medications reviewed showing she does take metoprolol. Patient's heart rate did not improve with IV fluids. Patient has history of A-fib. Patient started on Cardizem. Laboratory evaluation obtained. Leukocytosis 30.9. INR 1.2, lactic acidosis 2.8. Elevated renal function. Urinalysis positive for UTI. Patient will be admitted. She does not meet severe sepsis criteria. She has a normal blood pressure along with a lactic acid less than 4. Patient given antibiotics will be admitted. Undiagnosed new problem with uncertain prognosis? @ -No Drug Therapy requiring intensive monitoring for toxicity (Heparin, Nitro, Insulin, Cardizem)? @ -No Were any procedures done? @ -No Diagnosis/symptom? Acute, or Chronic, or Acute on Chronic? Uncomplicated (without systemic symptoms) or Complicated (systemic symptoms)? @ -UTI with altered mental status, A-fib with RVR Side effects of treatment? @ -No Exacerbation, Progression, or Severe Exacerbation? @ -No Poses a threat to life or bodily function? How? (Chest pain, [place], [place], pneumonia, PE, COPD, DKA, ARF, appy, cholecystitis, CVA, Diverticulitis, Homicidal, Suicidal, threat to staff... and all critical care pts) @ -yes - Lab Data Result diagrams: 11/25/23 02:38 11/25/23 02:38 Lab Results 11/25/23 11/25/23 11/25/23 Range/Units 01:45 02:38 02:38 WBC 30.6 H (3.8-10.6) k/uL RBC 3.13 L (3.80-5.40) m/uL Hgb 9.5 L (11.4-16.0) gm/dL Hct 31.4 L (34.0-46.0) % MCV 100.5 H (80.0-100.0) fL MCH 30.5 (25.0-35.0) pg MCHC 30.3 L (31.0-37.0) g/dL RDW 16.3 H (11.5-15.5) % Plt Count 192 (150-450) k/uL MPV 8.6 Neutrophils % (Manual) 92 % Band Neuts % (Manual) 3 % Lymphocytes % (Manual) 3 % Monocytes % (Manual) 2 % Neutrophils # (Manual) 29.00 H (1.3-7.7) k/uL Lymphocytes # (Manual) 0.92 L (1.0-4.8) k/uL Monocytes # (Manual) 0.61 (0-1.0) k/uL Nucleated RBCs 1 H (0-0) /100 WBC Manual Slide Review Performed Hypochromasia Marked Anisocytosis Slight Macrocytosis Slight Tear Drop Cells Present Crenated Cell Present PT (10.0-12.5) sec INR (<1.2) APTT (22.0-30.0) sec Sodium 141 (137-145) mmol/L Potassium 3.7 (3.5-5.1) mmol/L Chloride 107 (98-107) mmol/L Carbon Dioxide 25 (22-30) mmol/L Anion Gap 9 mmol/L BUN 59 H (7-17) mg/dL Creatinine 1.41 H (0.52-1.04) mg/dL Est GFR (CKD-EPI)AfAm 41 (>60 ml/min/1.73 sqM) Est GFR (CKD-EPI)NonAf 36 (>60 ml/min/1.73 sqM) Glucose 76 (74-99) mg/dL Plasma Lactic Acid [place] (0.7-2.0) mmol/L Calcium 8.4 (8.4-10.2) mg/dL Magnesium 1.6 (1.6-2.3) mg/dL Total Bilirubin 0.7 (0.2-1.3) mg/dL AST 18 (14-36) U/L ALT 12 (4-34) U/L Alkaline Phosphatase 133 H (38-126) U/L Total Protein 5.1 L (6.3-8.2) g/dL Albumin 2.4 L (3.5-5.0) g/dL Urine Color Light Red Urine Appearance Turbid H (Clear) Urine pH 6.5 (5.0-8.0) Ur Specific [place] 1.016 (1.001-1.035) Urine Protein 2+ H (Negative) Urine Glucose (UA) Negative (Negative) Urine Ketones Trace H (Negative) Urine Blood Moderate H (Negative) Urine Nitrite Negative (Negative) Urine Bilirubin Negative (Negative) Urine Urobilinogen 8.0 (<2.0) mg/dL Ur Leukocyte Esterase Large H (Negative) Urine RBC >182 H (0-5) /hpf Urine WBC >182 H (0-5) /hpf Urine WBC Clumps Many H (None) /hpf Urine Bacteria Many H (None) /hpf 11/25/23 11/25/23 Range/Units 02:38 03:00 WBC (3.8-10.6) k/uL RBC (3.80-5.40) m/uL Hgb (11.4-16.0) gm/dL Hct (34.0-46.0) % MCV (80.0-100.0) fL MCH (25.0-35.0) pg MCHC (31.0-37.0) g/dL RDW (11.5-15.5) % Plt Count (150-450) k/uL MPV Neutrophils % (Manual) % Band Neuts % (Manual) % Lymphocytes % (Manual) % Monocytes % (Manual) % Neutrophils # (Manual) (1.3-7.7) k/uL Lymphocytes # (Manual) (1.0-4.8) k/uL Monocytes # (Manual) (0-1.0) k/uL Nucleated RBCs (0-0) /100 WBC Manual Slide Review Hypochromasia Anisocytosis Macrocytosis Tear Drop Cells Crenated Cell PT 12.8 H (10.0-12.5) sec INR 1.2 H (<1.2) APTT 23.5 (22.0-30.0) sec Sodium (137-145) mmol/L Potassium (3.5-5.1) mmol/L Chloride (98-107) mmol/L Carbon Dioxide (22-30) mmol/L Anion Gap mmol/L BUN (7-17) mg/dL Creatinine (0.52-1.04) mg/dL Est GFR (CKD-EPI)AfAm (>60 ml/min/1.73 sqM) Est GFR (CKD-EPI)NonAf (>60 ml/min/1.73 sqM) Glucose (74-99) mg/dL Plasma Lactic Acid [place] 2.8 H* (0.7-2.0) mmol/L Calcium (8.4-10.2) mg/dL Magnesium (1.6-2.3) mg/dL Total Bilirubin (0.2-1.3) mg/dL AST (14-36) U/L ALT (4-34) U/L Alkaline Phosphatase (38-126) U/L Total Protein (6.3-8.2) g/dL Albumin (3.5-5.0) g/dL Urine Color Urine Appearance (Clear) Urine pH (5.0-8.0) Ur Specific [place] (1.001-1.035) Urine Protein (Negative) Urine Glucose (UA) (Negative) Urine Ketones (Negative) Urine Blood (Negative) Urine Nitrite (Negative) Urine Bilirubin (Negative) Urine Urobilinogen (<2.0) mg/dL Ur Leukocyte Esterase (Negative) Urine RBC (0-5) /hpf Urine WBC (0-5) /hpf Urine WBC Clumps (None) /hpf Urine Bacteria (None) /hpf Disposition Clinical Impression: UTI (urinary tract infection), Atrial fibrillation with RVR Disposition: ADMITTED IP TO THIS HOSP Condition: Serious Referrals: Dada Maddox DO [Primary Care Provider] - 1-2 days Decision Time: 05:35
[2023-11-25] MEDS: SODIUM CHLORIDE 0.9% 1,000 ML IV STA (01:47)
[2023-11-25 02:35] LABS: Appearance,Urine Turbid (Clear); Bacteria,Urine Many /hpf; Bilirubin,Urine Negative (Negative); Blood,Urine Moderate (Negative); Color,Urine Light Red; Glucose,Urine (UA) Negative (Negative); Ketones,Urine Trace (Negative); Leukocyte Esterase,Urine Large (Negative); Nitrite,Urine Negative (Negative); PH, Urine 6.5 (5.0-8.0); Protein,Urine 2+ (Negative); RBC,Urine >182 /hpf (0-5); WBC,Urine >182 /hpf (0-5)
--- NOTE | 2023-11-25 02:41 | CT ---
EXAM: CT Head Without Intravenous Contrast CLINICAL HISTORY: ITS.REASON CT Reason: ams TECHNIQUE: Axial computed tomography images of the head/brain without intravenous contrast. CTDI is 47.1 mGy and DLP is 1207.4 mGy-cm. This CT exam was performed using one or more of the following dose reduction techniques: automated exposure control, adjustment of the mA and/or kV according to patient size, and/or use of iterative reconstruction technique. COMPARISON: No relevant prior studies available. FINDINGS: No acute intracranial hemorrhage. No midline shift or mass effect. Multiple areas of encephalomalacia in the bilateral supratentorial brain, consistent with multiple infarcts. Correlate for multi-infarct dementia. Age-related cerebral volume loss. Periventricular and subcortical white matter hypoattenuation, consistent with chronic microangiopathy. The visualized orbits appear grossly unremarkable. The calvarium is intact. The visualized paranasal sinuses and mastoid air cells are grossly clear. IMPRESSION: No acute intracranial hemorrhage, midline shift, or mass effect. Multiple areas of encephalomalacia in the bilateral supratentorial brain, consistent with multiple infarcts. Correlate for multi-infarct dementia.
[2023-11-25 02:53] LABS: Specific Gravity,Urine 1.016 (1.001-1.035)
[2023-11-25 03:16] LABS: ALT 12 U/L (4-34); AST 18 U/L (14-36); African American GFR (CKD) 41 (>60 ml/min/1.73 sqM); Albumin 2.4 g/dL (3.5-5.0); Alkaline Phosphatase 133 U/L (38-126); Anion Gap 9 mmol/L; Blood Urea Nitrogen 59 mg/dL (7-17); Calcium 8.4 mg/dL (8.4-10.2); Carbon Dioxide 25 mmol/L (22-30); Chloride 107 mmol/L (98-107); Glucose 76 mg/dL (74-99); Magnesium 1.6 mg/dL (1.6-2.3); Non-African American GFR(CKD) 36 (>60 ml/min/1.73 sqM); Potassium 3.7 mmol/L (3.5-5.1); Sodium 141 mmol/L (137-145); Total Bilirubin 0.7 mg/dL (0.2-1.3); Total Protein 5.1 g/dL (6.3-8.2)
[2023-11-25 03:22] LABS: Anisocytosis Slight; HCT 31.4 % (34.0-46.0); HGB 9.5 gm/dL (11.4-16.0); Hypochromasia Marked; MCH 30.5 pg (25.0-35.0); MCHC 30.3 g/dL (31.0-37.0); MCV 100.5 fL (80.0-100.0); Macrocytosis Slight; Mean Platelet Volume 8.6; Platelet Count 192 k/uL (150-450); RBC 3.13 m/uL (3.80-5.40); RDW 16.3 % (11.5-15.5)
[2023-11-25 04:11] LABS: INR 1.2 (<1.2); Partial Thromboplastin Time 23.5 sec (22.0-30.0); Prothrombin Time 12.8 sec (10.0-12.5)
--- NOTE | 2023-11-25 04:17 | XR ---
EXAM: XR Chest, 1 View CLINICAL HISTORY: ITS.REASON XR Reason: ams TECHNIQUE: Frontal view of the chest. COMPARISON: 10/08/2023 FINDINGS: Lungs: Diffuse interstitial infiltrates consistent with mild pulmonary edema. CHF with right pleural effusion. Pleural space: Large right pleural effusion. Heart: Cardiomegaly. Mediastinum: Unremarkable. Normal mediastinal contour. Bones/joints: Unremarkable. No acute fracture. IMPRESSION: 1. CHF with right pleural effusion. 2. Large right pleural effusion.
[2023-11-25 04:35] LABS: Band Neutrophils % 3 %; Lymphocytes # (M) 0.92 k/uL (1.0-4.8); Monocytes # (M) 0.61 k/uL (0-1.0); Neutrophils % (M) 92 %; Nucleated Red Blood Cells 1 /100 WBC (0-0); Total Cells Counted 200; WBC 30.6 k/uL (3.8-10.6)
[2023-11-25 04:36] LABS: Tear Drop Cells Present
[2023-11-25 04:37] LABS: Crenated RBC Present
[2023-11-25] MEDS ORDERED: NALOXONE 0.4 MG/ML 1 ML VIAL IV PRN (05:29)
[2023-11-25] MEDS ORDERED: ACETAMINOPHEN TAB 325 MG TAB PO PRN (05:29)
[2023-11-25] MEDS: SODIUM CHLORIDE 0.9% 1,000 ML IV SCH (05:59)
[2023-11-25] MEDS: DILTIAZEM 125 MG in SODIUM CHLORIDE 0.9% 100 ML IV SCH (05:59)
[2023-11-25] MEDS: DILTIAZEM DRIP BOLUS FROM BAG 1 MG SOLN IV ONE (06:00)
[2023-11-25] MEDS: FOLIC ACID 1 MG TAB PO SCH (11:31)
[2023-11-25] MEDS: LIDOCAINE 4% PATCH TOPICAL SCH (11:47)
[2023-11-25] MEDS: METOPROLOL TARTRATE 50 MG TAB PO SCH (11:47)
[2023-11-25] MEDS: HYDROcodone/APAP 5-325MG 1 EACH TAB PO SCH (11:47)
[2023-11-25] MEDS: SODIUM CHLORIDE 0.45% 1,000 ML IV SCH (13:35)
--- NOTE | 2023-11-25 17:01 | P.HPIM ---
History of Present Illness H&P Date: 11/25/23 This 78,years old female with past medical history of Atrial Fibrillation , CVA/TIA, GI Bleed, Hyperlipidemia, no anticoagulation because of GI bleed, moderate cognitive impairment from vascular dementia. Attempted colonoscopy in 2021 showed a tortuous colon. Has known uterine adenocarcinoma. radiation treatment 2018. Then was lost to follow-up. Also supposed to followed up with radiation treatment at [facility]. Also had right- sided hydronephrosis in the past with right-sided ureteral stent. Admitted September 15/2024 with nausea vomiting abdominal pain. Found to have bowel obstruction was given NG tube to suction. 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 - underwent a robotic assisted decompression enterostomy with closure of small bowel and bypass proximal bowel to mid ileum. October 02 MRI of the brain showed acute/subacute CVA involving the left cerebellum. October 17 cholecystectomy. Patient was sent into the ER because of altered mental status. Franklyn lethargic. Patient herself not able to give much history. Denies any pain shortness of breath. Does not seem to be ambulatory. Review of systems: Difficult to obtain as patient underlying dementia Social history: at [facility]. Started smoking at the age of 13 stopped in 2011. 1 pack a day. No alcohol. Physical examination: VITAL SIGNS: 97.4, 103, 17, 1 3285, 99% on 3 L upon presentation GENERAL: Reclining in bed, tired, awake EYES: Pupils equal. Conjunctiva normal. HEENT: External appearance of nose and ears normal, oral cavity-dry mucous membrane NECK: JVD not raised; masses not palpable. HEART: Heart sounds irregular; no edema. LUNGS: Respiratory rate increased, decreased breath sounds ABDOMEN: Soft, non-tender, liver spleen not palpable, no masses palpable. Crockett catheter: Hematuria PSYCH: A bit lethargic. Patient thinks she is in [place]. She thinks 9050s. Not sure why she is here. MUSCULOSKELETAL:No Clubbing/cyanosis;muscles-grossly intact. OA INVESTIGATIONS, reviewed in the clinical context: November 25, 2023: White count 30.6 hemoglobin 9.5 platelets 192 sodium 141 potas sium 3.7 BUN 59 creatinine 1.41 lactic acid 2.8 UA: Positive for leukoesterase WBC 12 point EKG tracing personally reviewed by me-atrial fibrillation. Rate 127- Chest x-ray film personally reviewed by me-underpenetrated CT brain: Multiple areas of encephalomalacia in the bilateral supratentorial br ain stent with multi infarcts Previous labs: October 22, 2023: 2.1 Brain MRI without contrast October 09 acute/subacute CVA involving the left cerebellum. Encephalomalacia from prior injuries. 2D echocardiogram [September 2023] EF 50-55% inferior wall hypokinesis. Prolapse of the posterior mitral valve. Moderate mitral regurgitation. Moderate tricuspid regurgitation. Assessment and plan: -Acute metabolic encephalopathy likely from underlying UTI, clinical dehydration -Acute UTI with cystitis IV ceftriaxone -Chronic radiation cystitis. With prior hematuria -small bowel obstruction leading to surgery.by Dr. Blood on September 24, 2023. 1. Robotic-assisted da Radha Xi laparoscopic decompressive enterostomy with closure small bowel, proximal ileum 2. Robotic-assisted da Radha Xi laparoscopic small bowel external bypass proximal ileum to mid ileum - tortuous colon with a prior history of unsuccessful colonoscopy -Severe colonic diverticulosis -History of vaginal bleeding in a patient with known uterine adenocarcinoma. - radiation treatment 2018. Apparently patient was lost to follow-up. Recently seen by oncology Dr. Darryl Coles. Not suspecting true progression at this time. Patient to continue withFulvestrant monthly Follow-up with Dr. Darryl Coles -Chronic kidney disease stage IIIb likely nephrosclerosis Creatinine 1.6 -Chronic congestive heart failure from diastolic dysfunction EF 50 to 55% % Follow clinically. -Moderate mitral and tricuspid regurgitation. Posterior mitral valve prolapse. -CAD with a history of stent Aspirin -Right hydronephrosis, with a right ureteral stent. Possibly of 2 years duration. Possibly placed at [facility] Recently seen by Dr. Roberto -Persistent atrial fibrillation, rate controlled Lopressor 50 mg 3 times daily. Cardizem 30 mg p.o. 3 times daily. Not a candidate of anticoagulation because of vaginal bleeding - left cerebellar infarct: October 03, 2023 Seen by neurology. Aspirin -Medical debility. PT OT -Large left adrenal mass likely adenoma -Moderate cognitive impairment from likely vascular dementia and multi-infarct dementia- -Full code - legal guardian, [facility] guardian Past Medical History Past Medical History: Atrial Fibrillation, Cancer, CVA/TIA, GI Bleed, Hyperlipidemia, Myocardial Infarction ([place]) Additional Past Medical History / Comment(s): 07/27/17 FALL'LT HIP FX. 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 History of COVID-19, cervical cancer treated with radiation. No taking Eliquis due to bleeding issues in past. SBO 09/2023 Last Myocardial Infarction Date:: 2009 History of Any Multi-Drug Resistant Organisms: None Reported Past Surgical History: Heart Catheterization, Orthopedic Surgery, Tonsillectomy Additional Past Surgical History / Comment(s): ORIF RT ANKLE HAS PLATE. Past Anesthesia/Blood Transfusion Reactions: No Reported Reaction Past Psychological History: No Psychological Hx Reported Smoking Status: Former smoker, Never smoker - Past Family History Mother Family Medical History: No Reported History Additional Family Medical History / Comment(s): FROM ANUERYSM Father Family Medical History: No Reported History Medications and Allergies Home Medications Medication Instructions Recorded Confirmed Type Atorvastatin [Lipitor] 20 mg PO HS tab 10/05/23 11/25/23 Rx Folic Acid 1 mg PO DAILY tab 10/05/23 11/25/23 Rx Lidocaine 4% Patch 1 patch TOPICAL DAILY #3 patch 10/05/23 11/25/23 Rx Acetaminophen Tab [Tylenol] 650 mg PO Q6H PRN 10/08/23 11/25/23 History Docusate [Colace] 100 mg PO BID cap 10/20/23 11/25/23 Rx Furosemide [Lasix] 40 mg PO DAILY tab 10/20/23 11/25/23 Rx Darbepoetin Robert [Aranesp] 40 mcg SQ NAYLOR 11/25/23 11/25/23 History Ferrous Sulfate [Feosol] 325 mg PO DAILY 11/25/23 11/25/23 History HYDROcodone/APAP 5-325MG [[place] 1 tab PO Q6H 11/25/23 11/25/23 History 5-325] INSULIN LISPRO (HumaLOG) [humaLOG] See Protocol SQ AC-TID 11/25/23 11/25/23 History Metoprolol Tartrate [Lopressor] 100 mg PO BID 11/25/23 11/25/23 History Naloxone HCl [Narcan] 4 mg NASAL DIRECTED PRN 11/25/23 11/25/23 History Allergies Allergy/AdvReac Type Severity Reaction Status Date / Time No Known Allergies Allergy Verified 11/25/23 08:19 Physical Exam Vitals: Vital Signs Temp Pulse Resp BP Pulse Ox 11/25/23 07:40 98.5 F 96 20 124/72 95 11/25/23 06:33 96 16 132/87 11/25/23 06:04 93 18 125/77 97 11/25/23 06:00 125 H 18 132/90 97 11/25/23 04:02 112 H 18 122/92 99 11/25/23 02:01 124 H 20 113/72 99 11/25/23 00:57 97.4 F L 103 H 17 132/85 99 Intake and Output 11/24/23 11/25/23 11/25/23 22:59 06:59 14:59 Other: Weight 64.41 kg Results CBC & Chem 7: 11/25/23 02:38 11/25/23 02:38 Labs: Abnormal Lab Results - Last 24 Hours (Table) 11/25/23 11/25/23 11/25/23 Range/Units 01:45 02:38 02:38 WBC 30.6 H (3.8-10.6) k/uL RBC 3.13 L (3.80-5.40) m/uL Hgb 9.5 L (11.4-16.0) gm/dL Hct 31.4 L (34.0-46.0) % MCV 100.5 H (80.0-100.0) fL MCHC 30.3 L (31.0-37.0) g/dL RDW 16.3 H (11.5-15.5) % Neutrophils # (Manual) 29.00 H (1.3-7.7) k/uL Lymphocytes # (Manual) 0.92 L (1.0-4.8) k/uL Nucleated RBCs 1 H (0-0) /100 WBC PT (10.0-12.5) sec INR (<1.2) BUN 59 H (7-17) mg/dL Creatinine 1.41 H (0.52-1.04) mg/dL Plasma Lactic Acid [place] (0.7-2.0) mmol/L Alkaline Phosphatase 133 H (38-126) U/L Total Protein 5.1 L (6.3-8.2) g/dL Albumin 2.4 L (3.5-5.0) g/dL Urine Appearance Turbid H (Clear) Urine Protein 2+ H (Negative) Urine Ketones Trace H (Negative) Urine Blood Moderate H (Negative) Ur Leukocyte Esterase Large H (Negative) Urine RBC >182 H (0-5) /hpf Urine WBC >182 H (0-5) /hpf Urine WBC Clumps Many H (None) /hpf Urine Bacteria Many H (None) /hpf 11/25/23 11/25/23 11/25/23 Range/Units 02:38 03:00 08:27 WBC (3.8-10.6) k/uL RBC (3.80-5.40) m/uL Hgb (11.4-16.0) gm/dL Hct (34.0-46.0) % MCV (80.0-100.0) fL MCHC (31.0-37.0) g/dL RDW (11.5-15.5) % Neutrophils # (Manual) (1.3-7.7) k/uL Lymphocytes # (Manual) (1.0-4.8) k/uL Nucleated RBCs (0-0) /100 WBC PT 12.8 H (10.0-12.5) sec INR 1.2 H (<1.2) BUN (7-17) mg/dL Creatinine (0.52-1.04) mg/dL Plasma Lactic Acid [place] 2.8 H* 2.5 H* (0.7-2.0) mmol/L Alkaline Phosphatase (38-126) U/L Total Protein (6.3-8.2) g/dL Albumin (3.5-5.0) g/dL Urine Appearance (Clear) Urine Protein (Negative) Urine Ketones (Negative) Urine Blood (Negative) Ur Leukocyte Esterase (Negative) Urine RBC (0-5) /hpf Urine WBC (0-5) /hpf Urine WBC Clumps (None) /hpf Urine Bacteria (None) /hpf
--- NOTE | 2023-11-25 17:29 | P.CRDCN ---
History of Present Illness Consult date: 11/25/23 History of present illness: HISTORY OF PRESENTING ILLNESS 88-year-old female with past medical history of persistent atrial fibrillation, CVA, GI bleeding, vaginal bleeding, dyslipidemia not on anticoagulation because of prior vaginal and GI bleeding. Moderate cognitive impairment from vascular dementia. Patient has known history of uterine adenocarcinoma s/p radiation treatment in 2018. She also has history of right-sided hydronephrosis and right-sided ureteral stent In September patient had 2 hospital admissions because of bowel obstruction. In late September patient got admitted again with concerns of subacute versus acute CVA involving left cerebellum. Time patient was sent to the hospital because of altered mental status and worsening generalized weakness. Cardiology was consulted for atrial fibrillation with RVR on admission. An echocardiogram from September 2023 showed an EF of 50 to 55%, inferior wall hypokinesia, moderate mitral regurgitation REVIEW OF SYSTEMS 14 point review of system is negative except what is mentioned above in HPI. PHYSICAL EXAMINATION Vital signs reviewed. Head: Normocephalic. Eyes: Sclerae nonicteric. Neck: Brisk carotid upstroke, no jugular venous distention. Lungs: Clear to auscultation. Heart: Regular rate and rhythm, S1-S2, no S3, no murmur or rub. Abdomen: Soft nontender, positive bowel sounds. Extremities: No edema, intact distal pulses. Neuro: Alert, oritented, no focal deficits. Detailed neuro exam was not perf ormed. ASSESSMENT Persistent atrial fibrillation Chronic HFpEF Moderate mitral regurgitation Recent left cerebellar CVA September 2023 Acute metabolic encephalopathy, multifactorial Acute UTI Chronic radiation cystitis Prior history of uterine carcinoma S/p small bowel obstruction s/p surgery September 2023 Severe colonic diverticulosis History of vaginal bleeding not on anticoagulation CKD stage IIIb PLAN Overall patient has high has bled score due to chronic radiation cystitis from radiation received for uterine carcinoma. Patient has had prior GI bleeding and vaginal bleeding. She also has high CPO0XT2-CNUb score because of recent CVA and multiple comorbidities. Overall patient is a poor candidate for anticoagulation. Continue aspirin 81 mg, atorvastatin 20 mg Discontinue Cardizem drip Resume metoprolol 100 mg twice daily which is her home dose. Patient had a recent echo in September 2023. We do not necessarily have to repeat one at this time. At this time patient is rate controlled for her atrial fibrillation which is persistent. Lester Watt MD, FACC, RPVI Thank you for allowing [facility] to participate in this patient's care. Feel free to reach out in case of any followup questions. Past Medical History Past Medical History: Atrial Fibrillation, Cancer, CVA/TIA, GI Bleed, Hyperlipidemia, Myocardial Infarction ([place]) Additional Past Medical History / Comment(s): 07/27/17 FALL'LT HIP FX. 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 History of COVID-19, cervical cancer treated with radiation. No taking Eliquis due to bleeding issues in past. SBO 09/2023 Last Myocardial Infarction Date:: 2009 History of Any Multi-Drug Resistant Organisms: None Reported Past Surgical History: Heart Catheterization, Orthopedic Surgery, Tonsillectomy Additional Past Surgical History / Comment(s): ORIF RT ANKLE HAS PLATE. Past Anesthesia/Blood Transfusion Reactions: No Reported Reaction Past Psychological History: No Psychological Hx Reported Smoking Status: Former smoker, Never smoker - Past Family History Mother Family Medical History: No Reported History Additional Family Medical History / Comment(s): FROM ANUERYSM Father Family Medical History: No Reported History Medications and Allergies Home Medications Medication Instructions Recorded Confirmed Type Atorvastatin [Lipitor] 20 mg PO HS tab 10/05/23 11/25/23 Rx Folic Acid 1 mg PO DAILY tab 10/05/23 11/25/23 Rx Lidocaine 4% Patch 1 patch TOPICAL DAILY #3 patch 10/05/23 11/25/23 Rx Acetaminophen Tab [Tylenol] 650 mg PO Q6H PRN 10/08/23 11/25/23 History Docusate [Colace] 100 mg PO BID cap 10/20/23 11/25/23 Rx Furosemide [Lasix] 40 mg PO DAILY tab 10/20/23 11/25/23 Rx Darbepoetin Robert [Aranesp] 40 mcg SQ NAYLOR 11/25/23 11/25/23 History Ferrous Sulfate [Feosol] 325 mg PO DAILY 11/25/23 11/25/23 History HYDROcodone/APAP 5-325MG [[place] 1 tab PO Q6H 11/25/23 11/25/23 History 5-325] INSULIN LISPRO (HumaLOG) [humaLOG] See Protocol SQ AC-TID 11/25/23 11/25/23 History Metoprolol Tartrate [Lopressor] 100 mg PO BID 11/25/23 11/25/23 History Naloxone HCl [Narcan] 4 mg NASAL DIRECTED PRN 11/25/23 11/25/23 History Allergies Allergy/AdvReac Type Severity Reaction Status Date / Time No Known Allergies Allergy Verified 11/25/23 08:19 Physical Exam Vitals: Vital Signs Temp Pulse Pulse Resp BP BP Pulse Ox 11/25/23 17:26 118 H 22 123/88 97 11/25/23 13:28 97.8 F 83 20 140/74 96 11/25/23 08:00 97.5 F L 72 14 116/79 96 11/25/23 07:40 98.5 F 96 20 124/72 95 11/25/23 06:33 96 16 132/87 11/25/23 06:04 93 18 125/77 97 11/25/23 06:00 125 H 18 132/90 97 11/25/23 04:02 112 H 18 122/92 99 11/25/23 02:01 124 H 20 113/72 99 11/25/23 00:57 97.4 F L 103 H 17 132/85 99 Intake and Output 11/25/23 11/25/23 11/25/23 06:59 14:59 22:59 Other: # Voids 1 Weight 64.41 kg Results 11/25/23 02:38 11/25/23 02:38 Cardiac Enzymes 11/25/23 Range/Units 02:38 AST 18 (14-36) U/L Coagulation 11/25/23 Range/Units 03:00 PT 12.8 H (10.0-12.5) sec APTT 23.5 (22.0-30.0) sec CBC 11/25/23 Range/Units 02:38 WBC 30.6 H (3.8-10.6) k/uL RBC 3.13 L (3.80-5.40) m/uL Hgb 9.5 L (11.4-16.0) gm/dL Hct 31.4 L (34.0-46.0) % Plt Count 192 (150-450) k/uL Comprehensive Metabolic Panel 11/25/23 Range/Units 02:38 Sodium 141 (137-145) mmol/L Potassium 3.7 (3.5-5.1) mmol/L Chloride 107 (98-107) mmol/L Carbon Dioxide 25 (22-30) mmol/L BUN 59 H (7-17) mg/dL Creatinine 1.41 H (0.52-1.04) mg/dL Glucose 76 (74-99) mg/dL Calcium 8.4 (8.4-10.2) mg/dL AST 18 (14-36) U/L ALT 12 (4-34) U/L Alkaline Phosphatase 133 H (38-126) U/L Total Protein 5.1 L (6.3-8.2) g/dL Albumin 2.4 L (3.5-5.0) g/dL Current Medications Generic Name Dose Route Start Last Admin Trade Name Freq PRN Reason Stop Dose Admin Acetaminophen 650 mg 11/25/23 05:29 Acetaminophen Tab 325 Mg Tab PO Q6HR PRN Mild Pain or Fever > 100.5 Hydrocodone Bitart/Acetaminophen 1 each 11/25/23 10:30 11/25/23 11:47 Hydrocodone/Apap 5-325mg 1 Each Tab PO 1 each Q6H KALPESH Administration Aspirin 81 mg 11/26/23 09:00 Aspirin 81 Mg PO DAILY KALPESH Atorvastatin Calcium 20 mg 11/25/23 21:00 Atorvastatin 20 Mg Tab PO HS KALPESH Folic Acid 1 mg 11/25/23 10:30 11/25/23 11:31 Folic Acid 1 Mg Tab PO Not Given DAILY KALPESH Sodium Chloride 1,000 mls @ 100 mls/hr 11/25/23 10:30 11/25/23 13:35 Saline 0.45% IV 100 mls/hr .Q10H KALPESH Administration Ceftriaxone Sodium 1 gm/ 50 mls @ 100 mls/hr 11/26/23 09:00 Sodium Chloride IVPB Q24HR KALPESH Protocol Lidocaine 1 patch 11/25/23 10:30 11/25/23 11:47 Lidocaine 4% Patch TOPICAL 1 patch DAILY KALPESH Administration Protocol Metoprolol Tartrate 50 mg 11/25/23 10:30 11/25/23 11:47 Metoprolol Tartrate 50 Mg Tab PO 50 mg BID KALPESH Administration Naloxone HCl 0.2 mg 11/25/23 05:29 Naloxone 0.4 Mg/Ml 1 Ml Vial IV Q2M PRN Opioid Reversal Intake and Output 11/25/23 11/25/23 11/25/23 06:59 14:59 22:59 Other: # Voids 1 Weight 64.41 kg 11/25/23 02:38 11/25/23 02:38
[2023-11-25] MEDS: ATORVASTATIN 20 MG TAB PO SCH (22:30)
[2023-11-26] MEDS: DILTIAZEM 125 MG in SODIUM CHLORIDE 0.9% 100 ML IV SCH (07:05)
[2023-11-26] MEDS: ASPIRIN 81 MG PO SCH (09:09)
--- NOTE | 2023-11-26 12:23 | P.PN ---
Progress Note - Text Progress Note Date: 11/26/23 This 78,years old female with past medical history of Atrial Fibrillation , CVA/TIA, GI Bleed, Hyperlipidemia, no anticoagulation because of GI bleed, moderate cognitive impairment from vascular dementia. Attempted colonoscopy in 2021 showed a tortuous colon. Has known uterine adenocarcinoma. radiation treatment 2018. Then was lost to follow-up. Also supposed to followed up with radiation treatment at [facility]. Also had right- sided hydronephrosis in the past with right-sided ureteral stent. Admitted September 15/2024 with nausea vomiting abdominal pain. Found to have bowel obstruction was given NG tube to suction. 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 - underwent a robotic assisted decompression enterostomy with closure of small bowel and bypass proximal bowel to mid ileum. October 02 MRI of the brain showed acute/subacute CVA involving the left cerebellum. October 17 cholecystectomy. Patient was sent into the ER because of altered mental status. Franklyn lethargic. Patient herself not able to give much history. Denies any pain shortness of breath. Does not seem to be ambulatory. November 25: More awake today. Answering questions. Spoke to the nurse. Spitting with assistance. Remains on Cardizem drip 5 mg an hour. Heart rate around 90s in A-fib Active Medications Acetaminophen (Acetaminophen Tab 325 Mg Tab) 650 mg PO Q6HR PRN PRN Reason: Mild Pain or Fever > 100.5 Hydrocodone Bitart/Acetaminophen (Hydrocodone/Apap 5-325mg 1 Each Tab) 1 each PO Q6H [facility] Last Admin: 11/26/23 10:25 Dose: 1 each Aspirin (Aspirin 81 Mg) 81 mg PO DAILY [facility] Last Admin: 11/26/23 09:09 Dose: 81 mg Atorvastatin Calcium (Atorvastatin 20 Mg Tab) 20 mg PO HS [facility] Last Admin: 11/25/23 22:30 Dose: 20 mg Folic Acid (Folic Acid 1 Mg Tab) 1 mg PO DAILY [facility] Last Admin: 11/26/23 09:09 Dose: 1 mg Sodium Chloride (Saline 0.45%) 1,000 mls @ 100 mls/hr IV .Q10H [facility] Last Admin: 11/26/23 07:05 Dose: 100 mls/hr Ceftriaxone Sodium 1 gm/ (Sodium Chloride) 50 mls @ 100 mls/hr IVPB Q24HR [facility]; Protocol Last Admin: 11/26/23 09:16 Dose: 100 mls/hr Diltiazem HCl 125 mg/ Sodium (Chloride) 125 mls @ 5 mls/hr IV .Q24H [facility] Last Admin: 11/26/23 07:05 Dose: 5 mg/hr, 5 mls/hr Lidocaine (Lidocaine 4% Patch) 1 patch TOPICAL DAILY [facility]; Protocol Last Admin: 11/26/23 09:10 Dose: 1 patch Metoprolol Tartrate (Metoprolol Tartrate 50 Mg Tab) 50 mg PO BID [facility] Last Admin: 11/26/23 09:09 Dose: 50 mg Naloxone HCl (Naloxone 0.4 Mg/Ml 1 Ml Vial) 0.2 mg IV Q2M PRN PRN Reason: Opioid Reversal Social history: at [facility]. Started smoking at the age of 13 stopped in 2011. 1 pack a day. No alcohol. Physical examination: VITAL SIGNS: Afebrile, 86, 18, 140 x 76, 98% on 2 L GENERAL: Reclining in bed, more awake today EYES: Pupils equal. Conjunctiva normal. HEENT: External appearance of nose and ears normal, oral cavity-dry mucous membrane NECK: JVD not raised; masses not palpable. HEART: Heart sounds irregular; no edema. LUNGS: Respiratory rate increased, decreased breath sounds ABDOMEN: Soft, non-tender, liver spleen not palpable, no masses palpable. Crockett catheter: Hematuria PSYCH: Answering questions better. MUSCULOSKELETAL:No Clubbing/cyanosis;muscles-grossly intact. OA INVESTIGATIONS, reviewed in the clinical context: November 25, 2023: White count 30.6 hemoglobin 9.5 platelets 192 sodium 141 potassium 3.7 BUN 59 creatinine 1.41 lactic acid 2.8 UA: Positive for leukoesterase WBC 12 point EKG tracing personally reviewed by me-atrial fibrillation. Rate 127- Chest x-ray film personally reviewed by me-underpenetrated CT brain: Multiple areas of encephalomalacia in the bilateral supratentorial brain stent with multi infarcts Previous labs: October 22, 2023: 2.1 Brain MRI without contrast October 09 acute/subacute CVA involving the left cerebellum. Encephalomalacia from prior injuries. 2D echocardiogram [September 2023] EF 50-55% inferior wall hypokinesis. Prolapse of the posterior mitral valve. Moderate mitral regurgitation. Moderate tricuspid regurgitation. Assessment and plan: -Acute metabolic encephalopathy likely from underlying UTI, clinical dehydration: Some improvement -Acute UTI with cystitis IV ceftriaxone -Chronic radiation cystitis. With prior hematuria -small bowel obstruction leading to surgery.by Dr. Blood on September 24, 2023. 1. Robotic-assisted da Radha Xi laparoscopic decompressive enterostomy with closure small bowel, proximal ileum 2. Robotic-assisted da Radha Xi laparoscopic small bowel external bypass proximal ileum to mid ileum - tortuous colon with a prior history of unsuccessful colonoscopy -Severe colonic diverticulosis -History of vaginal bleeding in a patient with known uterine adenocarcinoma. - radiation treatment 2018. Apparently patient was lost to follow-up. Recently seen by oncology Dr. Darryl Coles. Not suspecting true progression at this time. Patient to continue withFulvestrant monthly Follow-up with Dr. Darryl Coles -Chronic kidney disease stage IIIb likely nephrosclerosis Creatinine 1.6 -Chronic congestive heart failure from diastolic dysfunction EF 50 to 55% % Follow clinically. -Moderate mitral and tricuspid regurgitation. Posterior mitral valve prolapse. -CAD with a history of stent Aspirin -Right hydronephrosis, with a right ureteral stent. Possibly of 2 years duration. Possibly placed at [facility] Recently seen by Dr. Roberto -Persistent atrial fibrillation, uncontrolled on presentation Placed on Cardizem drip Lopressor 50 mg bid. Not a candidate of anticoagulation because of vaginal bleeding Being followed by cardiology - left cerebellar infarct: October 03, 2023 Seen by neurology. Aspirin -Medical debility. PT OT -Large left adrenal mass likely adenoma -Moderate cognitive impairment from likely vascular dementia and multi-infarct dementia- -Full code - legal guardian, [facility] guardian Past Medical History Past Medical History: Atrial Fibrillation, Cancer, CVA/TIA, GI Bleed, Hyperlipidemia, Myocardial Infarction ([place]) Additional Past Medical History / Comment(s): 07/27/17 FALL'LT HIP FX. 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 History of COVID-19, cervical cancer treated with radiation. No taking Eliquis due to bleeding issues in past. SBO 09/2023 Last Myocardial Infarction Date:: 2009 History of Any Multi-Drug Resistant Organisms: None Reported Past Surgical History: Heart Catheterization, Orthopedic Surgery, Tonsillectomy Additional Past Surgical History / Comment(s): ORIF RT ANKLE HAS PLATE. Past Anesthesia/Blood Transfusion Reactions: No Reported Reaction Past Psychological History: No Psychological Hx Reported Smoking Status: Former smoker, Never smoker
--- NOTE | 2023-11-26 18:35 | P.PN ---
Subjective Progress Note Date: 11/26/23 HISTORY OF PRESENTING ILLNESS 88-year-old female with past medical history of persistent atrial fibrillation, CVA, GI bleeding, vaginal bleeding, dyslipidemia not on anticoagulation because of prior vaginal and GI bleeding. Moderate cognitive impairment from vascular dementia. Patient has known history of uterine adenocarcinoma s/p radiation treatment in 2018. She also has history of right-sided hydronephrosis and right-sided ureteral stent In September patient had 2 hospital admissions because of bowel obstruction. In late September patient got admitted again with concerns of subacute versus acute CVA involving left cerebellum. Time patient was sent to the hospital because of altered mental status and worsening generalized weakness. Cardiology was consulted for atrial fibrillation with RVR on admission. An echocardiogram from September 2023 showed an EF of 50 to 55%, inferior wall hypokinesia, moderate mitral regurgitation Progress note 11/26/2023 Patient is seen and examined at bedside this a.m. Patient is lethargic and is laying in bed. Patient is drowsy and sleepy. Arousable on verbal stimuli. Denies any chest pain chest pressure. On telemetry she is in rate controlled atrial fibrillation. PHYSICAL EXAMINATION Vital signs reviewed. Head: Normocephalic. Eyes: Sclerae nonicteric. Neck: Brisk carotid upstroke, no jugular venous distention. Lungs: Clear to auscultation. Heart: Regular rate and rhythm, S1-S2, no S3, no murmur or rub. Abdomen: Soft nontender, positive bowel sounds. Extremities: No edema, intact distal pulses. Neuro: Alert, oritented, no focal deficits. Detailed neuro exam was not performed. ASSESSMENT Persistent atrial fibrillation Chronic HFpEF Moderate mitral regurgitation Recent left cerebellar CVA September 2023 Acute metabolic encephalopathy, multifactorial Acute UTI Chronic radiation cystitis Prior history of uterine carcinoma S/p small bowel obstruction s/p surgery September 2023 Severe colonic diverticulosis History of vaginal bleeding not on anticoagulation CKD stage IIIb PLAN Overall patient has high has bled score due to chronic radiation cystitis from radiation received for uterine carcinoma. Patient has had prior GI bleeding and vaginal bleeding. She also has high [id number] score because of recent CVA and multiple comorbidities. Overall patient is a poor candidate for anticoagulation. Continue aspirin 81 mg, atorvastatin 20 mg Discontinue Cardizem drip Resume metoprolol 100 mg twice daily which is her home dose. Patient had a recent echo in September 2023. We do not necessarily have to repeat one at this time. At this time patient is rate controlled for her atrial fibrillation which is persistent. At Present patient is stable from cardiovascular standpoint. She has multiple comorbidities. She also appears very frail and debilitated. There is also concern of possible failure to thrive. Overall patient's prognosis is poor due to her frail status and multiple comorbidities. Cardiology team will sign off. Please reconsult us in case of any questions. Objective - Vital Signs Vital signs: Vital Signs Temp 97.7 F 11/26/23 15:15 Pulse 86 11/26/23 15:15 Resp 20 11/26/23 15:15 BP 129/90 11/26/23 15:15 Pulse Ox 96 11/26/23 15:15 FiO2 Intake & Output 11/25/23 11/26/23 11/26/23 18:59 06:59 18:59 Weight 64.41 kg Other: # Voids 1 - Labs CBC & Chem 7: 11/25/23 02:38 11/25/23 02:38 Labs: Microbiology - Last 24 Hours (Table) 11/25/23 03:59 Urine Culture - Preliminary Urine,Catheterized Group D Enterococcus
[2023-11-27 11:39] LABS: Anisocytosis Slight; Basophils % (A) 0 %; Eosinophils % (A) 0 %; HCT 30.6 % (34.0-46.0); HGB 8.7 gm/dL (11.4-16.0); Hypochromasia Marked; Lymphocytes # (A) 0.4 k/uL (1.0-4.8); Lymphocytes % (A) 2 %; MCH 29.9 pg (25.0-35.0); MCHC 28.6 g/dL (31.0-37.0); MCV 104.7 fL (80.0-100.0); Macrocytosis Moderate; Mean Platelet Volume 8.9; Monocytes # (A) 1.1 k/uL (0-1.0); Monocytes % (A) 5 %; Neutrophils # (A) 20.8 k/uL (1.3-7.7); Neutrophils % (A) 93 %; Platelet Count 143 k/uL (150-450); RBC 2.93 m/uL (3.80-5.40); RDW 16.3 % (11.5-15.5); WBC 22.4 k/uL (3.8-10.6)
[2023-11-27 12:06] LABS: ALT 11 U/L (4-34); AST 22 U/L (14-36); African American GFR (CKD) 41 (>60 ml/min/1.73 sqM); Albumin 2.1 g/dL (3.5-5.0); Alkaline Phosphatase 129 U/L (38-126); Anion Gap 6 mmol/L; Blood Urea Nitrogen 58 mg/dL (7-17); Carbon Dioxide 24 mmol/L (22-30); Chloride 110 mmol/L (98-107); Non-African American GFR(CKD) 35 (>60 ml/min/1.73 sqM); Potassium 3.4 mmol/L (3.5-5.1); Sodium 140 mmol/L (137-145); Total Bilirubin 0.6 mg/dL (0.2-1.3); Total Protein 4.6 g/dL (6.3-8.2)
[2023-11-27 12:15] LABS: Glucose 43 mg/dL (74-99)
[2023-11-27] MEDS: AMPICILLIN-SULBACTAM 3 GM in SODIUM CHLORIDE 0.9% 100 ML IVPB SCH (12:40)
[2023-11-27] MEDS: DEXTROSE 5% IN WATER 1,000 ML IV SCH (12:44)
[2023-11-27 12:48] VITALS: BMI 22.2
--- NOTE | 2023-11-27 13:36 | P.PN ---
Subjective Progress Note Date: 11/27/23 This 78,years old female with past medical history of Atrial Fibrillation , CVA/TIA, GI Bleed, Hyperlipidemia, no anticoagulation because of GI bleed, moderate cognitive impairment from vascular dementia. Attempted colonoscopy in 2021 showed a tortuous colon. Has known uterine a denocarcinoma. radiation treatment 2018. Then was lost to follow-up. Also supposed to followed up with radiation treatment at [facility]. Also had right- sided hydronephrosis in the past with right-sided ureteral stent. Admitted September 15/2024 with nausea vomiting abdominal pain. Found to have bowel obstruction was given NG tube to suction. 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 - underwent a robotic assisted decompression enterostomy with cl osure of small bowel and bypass proximal bowel to mid ileum. October 02 MRI of the brain showed acute/subacute CVA involving the left cerebellum. October 17 cholecystectomy. Patient was sent into the ER because of altered mental status. Patient herself not able to give much history. Denies any pain shortness of breath. Does not seem to be ambulatory. 11/26. Patient seen and examined. Patient is alert, not the best of historian. Does not look in acute distress REVIEW OF SYSTEMS: CONSTITUTIONAL: No fever, no malaise,. CARDIOVASCULAR: No chest pain, no palpitations, no syncope. PULMONARY: No shortness of breath, no cough, GASTROINTESTINAL: No diarrhea, no abdominal pain. NEUROLOGICAL: No headaches, no weakness, PHYSICAL EXAMINATION: GENERAL: The patient is alert , history of dementia, not in any acute distress. Well developed, well nourished. HEENT: Pupils are round and equally reacting to light. EOMI. No scleral icterus. No conjunctival pallor. Normocephalic, atraumatic. No pharyngeal erythema. No thyromegaly. CARDIOVASCULAR: S1 and S2 present. No murmurs, rubs, or gallops. PULMONARY: Chest is clear to auscultation, no wheezing or crackles. ABDOMEN: Soft, nontender, nondistended, normoactive bowel sounds. No palpable organomegaly. MUSCULOSKELETAL: No joint swelling or deformity. EXTREMITIES: No cyanosis, clubbing, or pedal edema. NEUROLOGICAL: Gross neurological examination did not reveal any focal deficits. SKIN: No rashes. Assessment and plan Acute metabolic encephalopathy -Acute UTI with cystitis -Chronic radiation cystitis. -History of small bowel obstruction leading to surgery.by Dr. Blood on September 24, 2023. Robotic-assisted da Radha Xi laparoscopic decompressive enterostomy with closure small bowel, proximal ileum. Robotic-assisted da Radha Xi laparoscopic small bowel external bypass proximal ileum to mid ileum - tortuous colon with a prior history of unsuccessful colonoscopy -Severe colonic diverticulosis -History of vaginal bleeding in a patient with known uterine adenocarcinoma. - radiation treatment 2018. Apparently patient was lost to follow-up. -Chronic kidney disease stage IIIb likely nephrosclerosis -Chronic congestive heart failure from diastolic dysfunction EF 50 to 55% % -Moderate mitral and tricuspid regurgitation. -CAD with a history of stent -Right hydronephrosis, with a right ureteral stent. Possibly of 2 years duration. [facility] -Persistent atrial fibrillation, - left cerebellar infarct -Medical debility. -Large left adrenal mass likely adenoma -Moderate cognitive impairment from likely vascular dementia and multi-infarct dementia- Monitor vital signs Monitor CBC Monitor CMP Continue telemetry monitoring Encourage use of incentive spirometer Follow-up on urine cultures Continue IV Rocephin Continue aspirin, Lipitor Continue metoprolol 100 mg twice daily. Cardiology following, agree that patient high risk for anticoagulation because of her high bled score Consult ID Labs and medication were reviewed.. Continue same treatment. Continue with symptomatic treatment. Resume home medication. Monitor labs and vitals. DVT and GI prophylaxis. Further recommendations as per clinical course of the patient . Objective - Vital Signs Vital signs: Vital Signs Temp 97.4 F L 11/27/23 03:25 Pulse 83 11/27/23 03:25 Resp 20 11/27/23 03:25 BP 124/80 11/27/23 03:25 Pulse Ox 94 L 11/27/23 03:25 FiO2 Intake & Output 11/26/23 11/27/23 11/27/23 18:59 06:59 18:59 Intake Total 110.583 Output Total 300 Balance -189.417 Weight 64.41 kg Intake: Intake, IV Titration 110.583 Amount Diltiazem 125 mg In 110.583 Sodium Chloride 0.9% 100 ml @ 5 MG/HR 5 mls/hr IV .Q24H [facility] Rx#:[id number] Output: Urine 300 Other: Voiding Method External Catheter - Labs CBC & Chem 7: 11/27/23 11:07 11/27/23 11:07 Labs: Microbiology - Last 24 Hours (Table) 11/25/23 03:59 Urine Culture - Preliminary Urine,Catheterized Group D Enterococcus
--- NOTE | 2023-11-27 13:57 | P.CONS ---
History of Present Illness - Reason for Consult Consult date: 11/27/23 Urinary tract infection Requesting physician: Tay Medina - Chief Complaint Mental status changes x 1 day - History of Present Illness Patient is a 78-year female with a past medical history significant for atrial fibrillation CVA TIA hyperlipidemia [place] brought into the hospital concerning for mental status changes apparently symptoms started getting worse the day of presentation to the hospital on arrival to the ER patient was afebrile and no fever have been called subsequently patient was not tachycardic hypotensive mildly hypoxic currently on 2 L nasal cannula oxygen patient did have a white count of 30,000 which is down 22.4 BUN and creatinine has been m ildly elevated urine has been positive urine is now growing Enterococcus patient did have a chest x-ray large right effusion CT of the brain was negative for any bleed patient has been treated with Rocephin infectious he was consulted today for further management of antibiotic therapy patient remains to be pleasantly confused and has been complaining nobody listens to her when specifically denies having any headache no chest pain has been complaining of some shortness of breath no vomiting or diarrhea has been reported by the nursing staff Past Medical History Past Medical History: Atrial Fibrillation, Cancer, CVA/TIA, GI Bleed, Hyperlipidemia, Myocardial Infarction ([place]) Additional Past Medical History / Comment(s): 07/27/17 FALL'LT HIP FX. OTHER HX"BOARDERLINE DIABETIC- NO MEDS BUT CHECKS BS ONCE A DAY,CVA/TIA 2011 NO RE SIDUAL EEFECTS, RT ANKLE BROKEN-(SX DONE HAD PLATE), PAST STRESS TEST. History of COVID-19, cervical cancer treated with radiation. No taking Eliquis due to bleeding issues in past. SBO 09/2023 Last Myocardial Infarction Date:: 2009 History of Any Multi-Drug Resistant Organisms: None Reported Past Surgical History: Heart Catheterization, Orthopedic Surgery, Tonsillectomy Additional Past Surgical History / Comment(s): ORIF RT ANKLE HAS PLATE. Past Anesthesia/Blood Transfusion Reactions: No Reported Reaction Smoking Status: Former smoker, Never smoker - Past Family History Mother Family Medical History: No Reported History Additional Family Medical History / Comment(s): FROM ANUERYSM Father Family Medical History: No Reported History Medications and Allergies Home Medications Medication Instructions Recorded Confirmed Type Atorvastatin [Lipitor] 20 mg PO HS tab 10/05/23 11/25/23 Rx Folic Acid 1 mg PO DAILY tab 10/05/23 11/25/23 Rx Lidocaine 4% Patch 1 patch TOPICAL DAILY #3 patch 10/05/23 11/25/23 Rx Acetaminophen Tab [Tylenol] 650 mg PO Q6H PRN 10/08/23 11/25/23 History Docusate [Colace] 100 mg PO BID cap 10/20/23 11/25/23 Rx Furosemide [Lasix] 40 mg PO DAILY tab 10/20/23 11/25/23 Rx Darbepoetin Robert [Aranesp] 40 mcg SQ NAYLOR 11/25/23 11/25/23 History Ferrous Sulfate [Feosol] 325 mg PO DAILY 11/25/23 11/25/23 History HYDROcodone/APAP 5-325MG [Kegley 1 tab PO Q6H 11/25/23 11/25/23 History 5-325] INSULIN LISPRO (HumaLOG) [humaLOG] See Protocol SQ AC-TID 11/25/23 11/25/23 History Metoprolol Tartrate [Lopressor] 100 mg PO BID 11/25/23 11/25/23 History Naloxone HCl [Narcan] 4 mg NASAL DIRECTED PRN 11/25/23 11/25/23 History Allergies Allergy/AdvReac Type Severity Reaction Status Date / Time No Known Allergies Allergy Verified 11/25/23 08:19 Physical Exam Vitals: Vital Signs Temp Pulse Resp BP Pulse Ox 11/27/23 09:30 97.5 F L 63 18 108/61 99 11/27/23 03:25 97.4 F L 83 20 124/80 94 L 11/26/23 23:28 97.5 F L 95 125/80 98 11/26/23 19:49 93 L 11/26/23 19:47 97.5 F L 99 20 117/80 87 L 11/26/23 16:00 86 20 11/26/23 15:15 97.7 F 86 20 129/90 96 Intake and Output 11/26/23 11/27/23 11/27/23 22:59 06:59 14:59 Intake Total 110.583 Output Total 300 Balance -189.417 Intake: Intake, IV Titration 110.583 Amount Diltiazem 125 mg In 110.583 Sodium Chloride 0.9% 100 ml @ 5 MG/HR 5 mls/hr IV .Q24H [facility] Rx#:[id number] Output: Urine 300 Other: Voiding Method External Catheter External Catheter External Catheter Weight 64.41 kg GENERAL DESCRIPTION: Elderly female lying in bed, no distress. No tachypnea or accessory muscle of respiration use. HEENT: Shows Pallor , no scleral icterus. Oral mucous membrane is dry. NECK: Trachea central, no thyromegaly. LUNGS: Unlabored breathing. Decreased breath sound at the bases HEART: S1, S2, regular rate and rhythm. ABDOMEN: Soft, no tenderness , guarding or rigidity, no organomegaly EXTREMITIES: No edema of feet. SKIN: No rash, no masses palpable. NEUROLOGICAL: The patient is awake, but pleasantly confused orientation could not be determined Results CBC & Chem 7: 11/27/23 11:07 11/27/23 11:07 Labs: Abnormal Lab Results - Last 24 Hours (Table) 11/27/23 Range/Units 11:07 WBC 22.4 H (3.8-10.6) k/uL RBC 2.93 L (3.80-5.40) m/uL Hgb 8.7 L (11.4-16.0) gm/dL Hct 30.6 L (34.0-46.0) % MCV 104.7 H (80.0-100.0) fL MCHC 28.6 L (31.0-37.0) g/dL RDW 16.3 H (11.5-15.5) % Plt Count 143 L (150-450) k/uL Neutrophils # 20.8 H (1.3-7.7) k/uL Lymphocytes # 0.4 L (1.0-4.8) k/uL Monocytes # 1.1 H (0-1.0) k/uL Microbiology - Last 24 Hours (Table) 11/25/23 03:59 Urine Culture - Preliminary Urine,Catheterized Group D Enterococcus Assessment and Plan (1) UTI (urinary tract infection) Current Visit: Yes Status: Acute Code(s): N39.0 - URINARY TRACT INFECTION, SITE NOT SPECIFIED SNOMED Code(s): 00098715 (2) Leukocytosis Current Visit: No Status: Acute Code(s): D72.829 - ELEVATED WHITE BLOOD CELL COUNT, UNSPECIFIED SNOMED Code(s): 736969236 Plan: 1patient present to hospital mental status changes likely multifactorial in this patient also noticed to have significant elevated white count source likely UTI and also have a component of large effusion questionably cardiac etiology as not behaving as pneumonia or empyema. 2urine culture now growing Enterococcus. 3we will discontinue Rocephin. 4start the patient on Unasyn while waiting for the sensitivity to finalize. My statement Time with Patient: Greater than 30
[2023-11-27 16:15] LABS: Glucose,Whole Blood 102 mg/dL (70-110)
[2023-11-27 20:50] LABS: Glucose,Whole Blood 132 mg/dL (70-110)
[2023-11-28 03:14] LABS: Glucose,Whole Blood 152 mg/dL (70-110)
[2023-11-28 06:27] LABS: Glucose,Whole Blood 165 mg/dL (70-110)
[2023-11-28 07:07] LABS: Anisocytosis Slight; Basophils % (A) 0 %; Eosinophils % (A) 0 %; HCT 31.1 % (34.0-46.0); HGB 8.9 gm/dL (11.4-16.0); Hypochromasia Marked; Lymphocytes # (A) 0.7 k/uL (1.0-4.8); Lymphocytes % (A) 4 %; MCHC 28.7 g/dL (31.0-37.0); MCV 104.6 fL (80.0-100.0); Macrocytosis Moderate; Mean Platelet Volume 8.5; Monocytes # (A) 0.5 k/uL (0-1.0); Monocytes % (A) 3 %; Neutrophils # (A) 15.1 k/uL (1.3-7.7); Neutrophils % (A) 92 %; Platelet Count 136 k/uL (150-450); RBC 2.97 m/uL (3.80-5.40); RDW 16.1 % (11.5-15.5); WBC 16.4 k/uL (3.8-10.6)
[2023-11-28 07:33] LABS: ALT 12 U/L (4-34); AST 21 U/L (14-36); African American GFR (CKD) 49 (>60 ml/min/1.73 sqM); Albumin 2.1 g/dL (3.5-5.0); Alkaline Phosphatase 137 U/L (38-126); Blood Urea Nitrogen 53 mg/dL (7-17); Glucose 144 mg/dL (74-99); Non-African American GFR(CKD) 43 (>60 ml/min/1.73 sqM); Potassium 3.2 mmol/L (3.5-5.1); Sodium 138 mmol/L (137-145); Total Bilirubin 0.6 mg/dL (0.2-1.3); Total Protein 4.9 g/dL (6.3-8.2)
[2023-11-28 07:49] LABS: Anion Gap 7 mmol/L; Carbon Dioxide 24 mmol/L (22-30); Chloride 107 mmol/L (98-107)
[2023-11-28] MEDS: AMPICILLIN-SULBACTAM 3 GM in SODIUM CHLORIDE 0.9% 100 ML IVPB SCH (09:48)
[2023-11-28 11:30] LABS: Glucose,Whole Blood 220 mg/dL (70-110)
--- NOTE | 2023-11-28 12:37 | P.PN ---
Subjective Progress Note Date: 11/28/23 This 78,years old female with past medical history of Atrial Fibrillation , CVA/TIA, GI Bleed, Hyperlipidemia, no anticoagulation because of GI bleed, moderate cognitive impairment from vascular dementia. Attempted colonoscopy in 2021 showed a tortuous colon. Has known uterine a denocarcinoma. radiation treatment 2018. Then was lost to follow-up. Also supposed to followed up with radiation treatment at [facility]. Also had right- sided hydronephrosis in the past with right-sided ureteral stent. Admitted September 15/2024 with nausea vomiting abdominal pain. Found to have bowel obstruction was given NG tube to suction. 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 - underwent a robotic assisted decompression enterostomy with cl osure of small bowel and bypass proximal bowel to mid ileum. October 02 MRI of the brain showed acute/subacute CVA involving the left cerebellum. October 17 cholecystectomy. Patient was sent into the ER because of altered mental status. Patient herself not able to give much history. Denies any pain shortness of breath. Does not seem to be ambulatory. 11/26. Patient seen and examined. Patient is alert, not the best of historian. Does not look in acute distress 11/27. Patient seen and examined. Blood work done this morning showed WBC 16.4, hemoglobin 8.9, platelet count 136, sodium 130, potassium 3.2, BUN 53, creatinine 1.21. Patient continues to have poor appetite REVIEW OF SYSTEMS: CONSTITUTIONAL: No fever, no malaise,. CARDIOVASCULAR: No chest pain, no palpitations, no syncope. PULMONARY: No shortness of breath, no cough, GASTROINTESTINAL: No diarrhea, no abdominal pain. NEUROLOGICAL: No headaches, no weakness, PHYSICAL EXAMINATION: GENERAL: The patient is alert , history of dementia, not in any acute distress. Well developed, well nourished. HEENT: Pupils are round and equally reacting to light. EOMI. No scleral icterus. No conjunctival pallor. Normocephalic, atraumatic. No pharyngeal erythema. No thyromegaly. CARDIOVASCULAR: S1 and S2 present. No murmurs, rubs, or gallops. PULMONARY: Chest is clear to auscultation, no wheezing or crackles. ABDOMEN: Soft, nontender, nondistended, normoactive bowel sounds. No palpable organomegaly. MUSCULOSKELETAL: No joint swelling or deformity. EXTREMITIES: No cyanosis, clubbing, or pedal edema. NEUROLOGICAL: Gross neurological examination did not reveal any focal deficits. SKIN: No rashes. Assessment and plan Acute metabolic encephalopathy -Acute UTI with cystitis -Chronic radiation cystitis. -History of small bowel obstruction leading to surgery.by Dr. Blood on September 24, 2023. Robotic-assisted da Radha Xi laparoscopic decompressive enterostomy with closure small bowel, proximal ileum. Robotic-assisted da Radha Xi laparoscopic small bowel external bypass proximal ileum to mid ileum - tortuous colon with a prior history of unsuccessful colonoscopy -Severe colonic diverticulosis -History of vaginal bleeding in a patient with known uterine adenocarcinoma. - radiation treatment 2018. Apparently patient was lost to follow-up. -Chronic kidney disease stage IIIb likely nephrosclerosis -Chronic congestive heart failure from diastolic dysfunction EF 50 to 55% % -Moderate mitral and tricuspid regurgitation. -CAD with a history of stent -Right hydronephrosis, with a right ureteral stent. Possibly of 2 years duration. Possibly placed at [facility] -Persistent atrial fibrillation, - left cerebellar infarct -Medical debility. -Large left adrenal mass likely adenoma -Moderate cognitive impairment from likely vascular dementia and multi-infarct dementia- Monitor vital signs Monitor CBC Monitor CMP Continue telemetry monitoring Encourage use of incentive spirometer Follow-up on urine cultures DC fluids Antibiotics changed to IV Unasyn Continue aspirin, Lipitor Continue metoprolol 100 mg twice daily. Potassium replacement ordered Cardiology following, agree that patient high risk for anticoagulation because of her high bled score ID following Labs and medication were reviewed.. Continue same treatment. Continue with symptomatic treatment. Resume home medication. Monitor labs and vitals. DVT and GI prophylaxis. Further recommendations as per clinical course of the p atient . Objective - Vital Signs Vital signs: Vital Signs Temp 97.1 F L 11/28/23 04:00 Pulse 114 H 11/28/23 04:00 Resp 18 11/28/23 04:00 BP 133/79 11/28/23 04:00 Pulse Ox 97 11/28/23 04:00 FiO2 Intake & Output 11/27/23 11/28/23 11/28/23 18:59 06:59 18:59 Output Total 300 400 Balance -300 -400 Weight 64.41 kg Output: Urine 300 400 Other: Voiding Method External Catheter Indwelling Catheter - Labs CBC & Chem 7: 11/28/23 06:33 11/28/23 06:33 Labs: Abnormal Lab Results - Last 24 Hours (Table) 11/27/23 11/27/23 11/27/23 Range/Units 11:07 11:07 20:49 WBC 22.4 H (3.8-10.6) k/uL RBC 2.93 L (3.80-5.40) m/uL Hgb 8.7 L (11.4-16.0) gm/dL Hct 30.6 L (34.0-46.0) % MCV 104.7 H (80.0-100.0) fL MCHC 28.6 L (31.0-37.0) g/dL RDW 16.3 H (11.5-15.5) % Plt Count 143 L (150-450) k/uL Neutrophils # 20.8 H (1.3-7.7) k/uL Lymphocytes # 0.4 L (1.0-4.8) k/uL Monocytes # 1.1 H (0-1.0) k/uL Potassium 3.4 L (3.5-5.1) mmol/L Chloride 110 H (98-107) mmol/L BUN 58 H (7-17) mg/dL Creatinine 1.42 H (0.52-1.04) mg/dL Glucose 43 L* (74-99) mg/dL POC Glucose (mg/dL) 132 H (70-110) mg/dL Calcium 8.0 L (8.4-10.2) mg/dL Alkaline Phosphatase 129 H (38-126) U/L Total Protein 4.6 L (6.3-8.2) g/dL Albumin 2.1 L (3.5-5.0) g/dL 11/28/23 11/28/23 11/28/23 Range/Units 03:13 06:25 06:33 WBC 16.4 H (3.8-10.6) k/uL RBC 2.97 L (3.80-5.40) m/uL Hgb 8.9 L (11.4-16.0) gm/dL Hct 31.1 L (34.0-46.0) % MCV 104.6 H (80.0-100.0) fL MCHC 28.7 L (31.0-37.0) g/dL RDW 16.1 H (11.5-15.5) % Plt Count 136 L (150-450) k/uL Neutrophils # 15.1 H (1.3-7.7) k/uL Lymphocytes # 0.7 L (1.0-4.8) k/uL Monocytes # (0-1.0) k/uL Potassium (3.5-5.1) mmol/L Chloride (98-107) mmol/L BUN (7-17) mg/dL Creatinine (0.52-1.04) mg/dL Glucose (74-99) mg/dL POC Glucose (mg/dL) 152 H 165 H (70-110) mg/dL Calcium (8.4-10.2) mg/dL Alkaline Phosphatase (38-126) U/L Total Protein (6.3-8.2) g/dL Albumin (3.5-5.0) g/dL 11/28/23 Range/Units 06:33 WBC (3.8-10.6) k/uL RBC (3.80-5.40) m/uL Hgb (11.4-16.0) gm/dL Hct (34.0-46.0) % MCV (80.0-100.0) fL MCHC (31.0-37.0) g/dL RDW (11.5-15.5) % Plt Count (150-450) k/uL Neutrophils # (1.3-7.7) k/uL Lymphocytes # (1.0-4.8) k/uL Monocytes # (0-1.0) k/uL Potassium 3.2 L (3.5-5.1) mmol/L Chloride (98-107) mmol/L BUN 53 H (7-17) mg/dL Creatinine 1.21 H (0.52-1.04) mg/dL Glucose 144 H (74-99) mg/dL POC Glucose (mg/dL) (70-110) mg/dL Calcium 8.0 L (8.4-10.2) mg/dL Alkaline Phosphatase 137 H (38-126) U/L Total Protein 4.9 L (6.3-8.2) g/dL Albumin 2.1 L (3.5-5.0) g/dL Microbiology - Last 24 Hours (Table) 11/25/23 03:59 Urine Culture - Final Urine,Catheterized Enterococcus faecalis
--- NOTE | 2023-11-28 13:43 | P.PN ---
Subjective Progress Note Date: 11/28/23 Principal diagnosis: Reason for follow-up is Enterococcus urinary tract infection and leukocytosis Patient is a 78-year female with a past medical history significant fo r atrial fibrillation CVA TIA hyperlipidemia ME brought into the hospital concerning for mental status changes patient did have a positive UA elevated white count concerning for urinary tract infection. On today's evaluation that is 11/28/2023,the patient remains to be afebrile, patient is on 2 L nasal cannula supplemental oxygen and denies any shortness of breath no chest pain or cough.Patient seen to be slightly more awake today no abdominal pain or any diarrhea reported by the nursing staff. Patient white count is down to 16.4, creatinine is 1.21 urine grew Enterococcus that is sensitive to ampicillin Objective - Vital Signs Vital signs: Vital Signs Temp 97.4 F L 11/28/23 08:20 Pulse 118 H 11/28/23 08:20 Resp 18 11/28/23 08:20 BP 111/79 11/28/23 08:20 Pulse Ox 99 11/28/23 08:20 FiO2 Intake & Output 11/27/23 11/28/23 11/28/23 18:59 06:59 18:59 Output Total 300 400 Balance -300 -400 Weight 64.41 kg Output: Urine 300 400 Other: Voiding Method External Catheter Indwelling Catheter Indwelling Catheter - Exam GENERAL DESCRIPTION: An elderly female lying in bed in no distress RESPIRATORY SYSTEM: Unlabored breathing , decreased breath sounds at bases HEART: S1 S2 regular rate and rhythm , ABDOMEN: Soft , no tenderness EXTREMITIES: No edema feet - Labs CBC & Chem 7: 11/28/23 06:33 11/28/23 06:33 Labs: Abnormal Lab Results - Last 24 Hours (Table) 11/27/23 11/28/23 11/28/23 Range/Units 20:49 03:13 06:25 WBC (3.8-10.6) k/uL RBC (3.80-5.40) m/uL Hgb (11.4-16.0) gm/dL Hct (34.0-46.0) % MCV (80.0-100.0) fL MCHC (31.0-37.0) g/dL RDW (11.5-15.5) % Plt Count (150-450) k/uL Neutrophils # (1.3-7.7) k/uL Lymphocytes # (1.0-4.8) k/uL Potassium (3.5-5.1) mmol/L BUN (7-17) mg/dL Creatinine (0.52-1.04) mg/dL Glucose (74-99) mg/dL POC Glucose (mg/dL) 132 H 152 H 165 H (70-110) mg/dL Calcium (8.4-10.2) mg/dL Alkaline Phosphatase (38-126) U/L Total Protein (6.3-8.2) g/dL Albumin (3.5-5.0) g/dL 11/28/23 11/28/23 11/28/23 Range/Units 06:33 06:33 11:28 WBC 16.4 H (3.8-10.6) k/uL RBC 2.97 L (3.80-5.40) m/uL Hgb 8.9 L (11.4-16.0) gm/dL Hct 31.1 L (34.0-46.0) % MCV 104.6 H (80.0-100.0) fL MCHC 28.7 L (31.0-37.0) g/dL RDW 16.1 H (11.5-15.5) % Plt Count 136 L (150-450) k/uL Neutrophils # 15.1 H (1.3-7.7) k/uL Lymphocytes # 0.7 L (1.0-4.8) k/uL Potassium 3.2 L (3.5-5.1) mmol/L BUN 53 H (7-17) mg/dL Creatinine 1.21 H (0.52-1.04) mg/dL Glucose 144 H (74-99) mg/dL POC Glucose (mg/dL) 220 H (70-110) mg/dL Calcium 8.0 L (8.4-10.2) mg/dL Alkaline Phosphatase 137 H (38-126) U/L Total Protein 4.9 L (6.3-8.2) g/dL Albumin 2.1 L (3.5-5.0) g/dL Microbiology - Last 24 Hours (Table) 11/25/23 03:59 Urine Culture - Final Urine,Catheterized Enterococcus faecalis Assessment and Plan (1) UTI (urinary tract infection) Current Visit: Yes Status: Acute Code(s): N39.0 - URINARY TRACT INFECTION, SITE NOT SPECIFIED SNOMED Code(s): 64331409 (2) Leukocytosis Current Visit: No Status: Acute Code(s): D72.829 - ELEVATED WHITE BLOOD CELL COUNT, UNSPECIFIED SNOMED Code(s): 181983602 Plan: 1patient present to hospital mental status changes likely multifactorial in this patient also noticed to have significant elevated white count source likely UTI and also have a component of large effusion questionably cardiac etiology as not behaving as pneumonia or empyema. 2urine culture now growing Enterococcus that is sensitive to ampicillin 3patient to continue with Unasyn and monitor clinical course closely Dictation was produced using [employer] dictation software. please excuse any grammatical, word or spelling errors. Time with Patient: Less than 30
[2023-11-28 16:35] LABS: Glucose,Whole Blood 194 mg/dL (70-110)
[2023-11-28] MEDS: POTASSIUM CHLORIDE ER 20 MEQ TAB.ER PO STA (17:16)
[2023-11-28 20:00] LABS: Glucose,Whole Blood 188 mg/dL (70-110)
[2023-11-28] MEDS: METOPROLOL TARTRATE 50 MG TAB PO SCH (20:50)
[2023-11-29 05:47] LABS: Glucose,Whole Blood 143 mg/dL (70-110)
[2023-11-29 06:24] LABS: Glucose,Whole Blood 165 mg/dL (70-110)
[2023-11-29 07:10] LABS: Anisocytosis Slight; HGB 8.3 gm/dL (11.4-16.0); Hypochromasia Marked; MCH 29.2 pg (25.0-35.0); MCHC 28.6 g/dL (31.0-37.0); MCV 102.1 fL (80.0-100.0); Macrocytosis Slight; Mean Platelet Volume 9.3; Platelet Count 123 k/uL (150-450); RBC 2.84 m/uL (3.80-5.40); WBC 13.2 k/uL (3.8-10.6)
[2023-11-29 07:22] LABS: ALT 14 U/L (4-34); AST 20 U/L (14-36); African American GFR (CKD) 37 (>60 ml/min/1.73 sqM); Albumin 2.1 g/dL (3.5-5.0); Alkaline Phosphatase 130 U/L (38-126); Anion Gap 6 mmol/L; Blood Urea Nitrogen 51 mg/dL (7-17); Calcium 8.4 mg/dL (8.4-10.2); Carbon Dioxide 24 mmol/L (22-30); Chloride 108 mmol/L (98-107); Glucose 156 mg/dL (74-99); Non-African American GFR(CKD) 32 (>60 ml/min/1.73 sqM); Potassium 4.1 mmol/L (3.5-5.1); Sodium 138 mmol/L (137-145); Total Bilirubin 0.7 mg/dL (0.2-1.3); Total Protein 4.8 g/dL (6.3-8.2)
--- NOTE | 2023-11-29 09:19 | CDI ---
Reviewer: Elida Moreau RN CCDS Ext: [id number] Query Date: 11/29/2023 By submitting this query, we are merely seeking further clarification of documentation to accurately reflect all conditions that you are monitoring, evaluating, treating or that extend the hospitalization or utilize additional resources of care. Please utilize your independent clinical judgment when addressing the question(s) below. Dr. Tay Medina: This patient appears to have clinical indicators of a systemic infection or systemic inflammatory response based on the below clinical indicators. Please clarify the condition this patient has, the present on admission status, and any underlying cause (causative organism, localized infection, related to a device, etc.). History/ Risk Factors: 78-year-old female with a history of Afib, CVA/TIA, GI Bleed, CKD3b, and moderate cognitive impairment from vascular dementia who presents with AMS and found to have UTI, metabolic encephalopathy Clinical indicators: 11/24 Triage VS: 132/85, 97.4, 103, 17, 99% 3 liters nasal cannula 11/26 ID consult, Plan: "1patient present to hospital mental status changes likely multifactorial in this patient also noticed to have significant elevated white count source likely UTI and also have a component of large effusion questionably cardiac etiology as not behaving as pneumonia or empyema. 2urine culture now growing Enterococcus." 11/24-11/28 Tmax: 98.5() Heart rate range: 83(11/24)-130(11/24) 11/24-11/28 WBC: 30.6, 22.4, 16.4, 13.2 Lactic acid: 2.8, 2.5, 1.4 11/24 Urinalysis: Color: Light red, Appearance: Turbid, Protein: 2+, Ketones: Trace, Blood: Moderate, Leukocyte Esterase: Large, RBC: >182, WBC: >182, WBC clumps: Many, Bacteria: Many 11/24 Urine Culture: Enterococcus faecalis Treatment: Consult ID Normal Saline IV 100cc/hour 11/24- 11/27 Rocephin 1gram IV Q24 hours 11/25-11/26 Unasyn 3gram IV [id number] 11/26-11/27 Unasyn 3gram IV [id number] start 11/27 Patient has sepsis: - Sepsis, present on admission, due to (please specify):__UTI__ - Sepsis, NOT present on admission, due to (please specify):___ Patient has severe sepsis: - Severe sepsis, present on admission, due to (please specify):___ - Severe sepsis, NOT present on admission, due to (please specify):___ Patient has SIRS: - SIRS, due to non-infectious origin, present on admission, non- infectious cause (please specify):___ - SIRS, due to non-infectious origin, NOT present on admission, non- infectious cause (please specify):___ [ ] Sepsis was ruled out [ ] SIRS was ruled out [x ] Patient had sepsis which is now resolved (clarify status as above) [ ] Patient had SIRS which is now resolved (clarify status as above) [ ] Other condition (please specify) [ ] Clinically unable to determine [ ] Unknown SIRS Criteria: 2 or more of the following may indicate SIRS Temperature < 96.8F (36C) or > 101.0F (38.3C) Heart Rate > 90 bpm Respiratory Rate > 20 breaths/min or PaCO2 < 32 mmHg White Blood Cell Count > 12,000 or < 4,000 cells/mm3 or > 10% bands MTDD
[2023-11-29 11:39] LABS: Glucose,Whole Blood 158 mg/dL (70-110)
[2023-11-29] MEDS: DILTIAZEM ORAL 30 MG TAB PO SCH (12:44)
--- NOTE | 2023-11-29 13:03 | P.PN ---
Subjective Progress Note Date: 11/29/23 This 78,years old female with past medical history of Atrial Fibrillation , CVA/TIA, GI Bleed, Hyperlipidemia, no anticoagulation because of GI bleed, moderate cognitive impairment from vascular dementia. Attempted colonoscopy in 2021 showed a tortuous colon. Has known uterine a denocarcinoma. radiation treatment 2018. Then was lost to follow-up. Also supposed to followed up with radiation treatment at [facility]. Also had right- sided hydronephrosis in the past with right-sided ureteral stent. Admitted September 15/2024 with nausea vomiting abdominal pain. Found to have bowel obstruction was given NG tube to suction. 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 - underwent a robotic assisted decompression enterostomy with cl osure of small bowel and bypass proximal bowel to mid ileum. October 02 MRI of the brain showed acute/subacute CVA involving the left cerebellum. October 17 cholecystectomy. Patient was sent into the ER because of altered mental status. Patient herself not able to give much history. Denies any pain shortness of breath. Does not seem to be ambulatory. 11/26. Patient seen and examined. Patient is alert, not the best of historian. Does not look in acute distress 11/27. Patient seen and examined. Blood work done this morning showed WBC 16.4, hemoglobin 8.9, platelet count 136, sodium 130, potassium 3.2, BUN 53, creatinine 1.21. Patient continues to have poor appetite 11/28. Patient seen and examined. Patient went to [facility] overnight, had to be placed on Cardizem drip. Currently denies any palpitations. REVIEW OF SYSTEMS: CONSTITUTIONAL: No fever, no malaise,. CARDIOVASCULAR: No chest pain, no palpitations, no syncope. PULMONARY: No shortness of breath, no cough, GASTROINTESTINAL: No diarrhea, no abdominal pain. NEUROLOGICAL: No headaches, no weakness, PHYSICAL EXAMINATION: GENERAL: The patient is alert , history of dementia, not in any acute distress. Ill looking HEENT: Pupils are round and equally reacting to light. EOMI. No scleral icterus. No conjunctival pallor. Normocephalic, atraumatic. No pharyngeal erythema. No thyromegaly. CARDIOVASCULAR: S1 and S2 present. No murmurs, rubs, or gallops. PULMONARY: Chest is clear to auscultation, no wheezing or crackles. ABDOMEN: Soft, nontender, nondistended, normoactive bowel sounds. No palpable organomegaly. MUSCULOSKELETAL: No joint swelling or deformity. EXTREMITIES: No cyanosis, clubbing, or pedal edema. NEUROLOGICAL: Gross neurological examination did not reveal any focal deficits. SKIN: No rashes. Assessment and plan Acute metabolic encephalopathy -Acute UTI with cystitis -Chronic radiation cystitis. -History of small bowel obstruction leading to surgery.by Dr. Blood on September 24, 2023. Robotic-assisted da Radha Xi laparoscopic decompressive enterostomy with closure small bowel, proximal ileum. Robotic-assisted da Radha Xi laparoscopic small bowel external bypass proximal ileum to mid ileum - tortuous colon with a prior history of unsuccessful colonoscopy -Severe colonic diverticulosis -History of vaginal bleeding in a patient with known uterine adenocarcinoma. - radiation treatment 2018. Apparently patient was lost to follow-up. -Chronic kidney disease stage IIIb likely nephrosclerosis -Chronic congestive heart failure from diastolic dysfunction EF 50 to 55% % -Moderate mitral and tricuspid regurgitation. -CAD with a history of stent -Right hydronephrosis, with a right ureteral stent. Possibly of 2 years duration. Possibly placed at [facility] -Persistent atrial fibrillation, - left cerebellar infarct -Medical debility. -Large left adrenal mass likely adenoma -Moderate cognitive impairment from likely vascular dementia and multi-infarct dementia- Monitor vital signs Monitor CBC Monitor CMP Continue telemetry monitoring Encourage use of incentive spirometer Follow-up on urine cultures Continue IV Unasyn Continue aspirin, Lipitor DC Cardizem drip , started on oral Cardizem Continue metoprolol 100 mg twice daily. Potassium replacement ordered Cardiology following, agree that patient high risk for anticoagulation because of her high bled score ID following Labs and medication were reviewed.. Continue same treatment. Continue with symptomatic treatment. Resume home medication. Monitor labs and vitals. DVT and GI prophylaxis. Further recommendations as per clinical course of the patient . Objective - Vital Signs Vital signs: Vital Signs Temp 97.4 F L 11/29/23 11:30 Pulse 85 11/29/23 11:30 Resp 16 11/29/23 11:30 BP 127/85 11/29/23 11:30 Pulse Ox 100 11/29/23 11:30 FiO2 Intake & Output 11/28/23 11/29/23 11/29/23 18:59 06:59 18:59 Intake Total 193 Output Total 320 200 450 Balance -320 -200 -257 Intake: Oral 193 Output: Urine 320 200 450 Other: Voiding Method Indwelling Catheter Indwelling Catheter Indwelling Catheter - Labs CBC & Chem 7: 11/29/23 06:33 11/29/23 06:33 Labs: Abnormal Lab Results - Last 24 Hours (Table) 11/28/23 11/28/23 11/29/23 Range/Units 16:29 19:59 05:44 WBC (3.8-10.6) k/uL RBC (3.80-5.40) m/uL Hgb (11.4-16.0) gm/dL Hct (34.0-46.0) % MCV (80.0-100.0) fL MCHC (31.0-37.0) g/dL RDW (11.5-15.5) % Plt Count (150-450) k/uL Chloride (98-107) mmol/L BUN (7-17) mg/dL Creatinine (0.52-1.04) mg/dL Glucose (74-99) mg/dL POC Glucose (mg/dL) 194 H 188 H 143 H (70-110) mg/dL Alkaline Phosphatase (38-126) U/L Total Protein (6.3-8.2) g/dL Albumin (3.5-5.0) g/dL 11/29/23 11/29/23 11/29/23 Range/Units 06:22 06:33 06:33 WBC 13.2 H (3.8-10.6) k/uL RBC 2.84 L (3.80-5.40) m/uL Hgb 8.3 L (11.4-16.0) gm/dL Hct 29.0 L (34.0-46.0) % MCV 102.1 H (80.0-100.0) fL MCHC 28.6 L (31.0-37.0) g/dL RDW 16.0 H (11.5-15.5) % Plt Count 123 L (150-450) k/uL Chloride 108 H (98-107) mmol/L BUN 51 H (7-17) mg/dL Creatinine 1.52 H (0.52-1.04) mg/dL Glucose 156 H (74-99) mg/dL POC Glucose (mg/dL) 165 H (70-110) mg/dL Alkaline Phosphatase 130 H (38-126) U/L Total Protein 4.8 L (6.3-8.2) g/dL Albumin 2.1 L (3.5-5.0) g/dL 11/29/23 Range/Units 11:32 WBC (3.8-10.6) k/uL RBC (3.80-5.40) m/uL Hgb (11.4-16.0) gm/dL Hct (34.0-46.0) % MCV (80.0-100.0) fL MCHC (31.0-37.0) g/dL RDW (11.5-15.5) % Plt Count (150-450) k/uL Chloride (98-107) mmol/L BUN (7-17) mg/dL Creatinine (0.52-1.04) mg/dL Glucose (74-99) mg/dL POC Glucose (mg/dL) 158 H (70-110) mg/dL Alkaline Phosphatase (38-126) U/L Total Protein (6.3-8.2) g/dL Albumin (3.5-5.0) g/dL
--- NOTE | 2023-11-29 14:04 | P.PN ---
Subjective Progress Note Date: 11/29/23 HISTORY OF PRESENTING ILLNESS 88-year-old female with past medical history of persistent atrial fibrillation, CVA, GI bleeding, vaginal bleeding, dyslipidemia not on anticoagulation because of prior vaginal and GI bleeding. Moderate cognitive impairment from vascular dementia. Patient has known history of uterine adenocarcinoma s/p radiation treatment in 2018. She also has history of right-sided hydronephrosis and right-sided ureteral stent In September patient had 2 hospital admissions because of bowel obstruction. In late September patient got admitted again with concerns of subacute versus acute CVA involving left cerebellum. Time patient was sent to the hospital because of altered mental status and worsening generalized weakness. Cardiology was consulted for atrial fibrillation with RVR on admission. An echocardiogram from September 2023 showed an EF of 50 to 55%, inferior wall hypokinesia, moderate mitral regurgitation 11/26/2023 Patient is seen and examined at bedside this a.m. Patient is lethargic and is laying in bed. Patient is drowsy and sleepy. Arousable on verbal stimuli. Denies any chest pain chest pressure. On telemetry she is in rate controlled atrial fibrillation. 11/28 Cardiology had previously signed off this case but were asked to reevaluate patient for A-fib with RVR. Patient's heart rate went into the 140s last evening and this morning. They gave beta-roshni early but did not seem to make a difference and Cardizem drip was resumed. Patient states her breathing is okay. She denies any chest pain and denies palpitations. She is currently in atrial fibrillation with controlled rate. Blood pressure 127/85, heart rate in the 80s, pulse ox 100% on 2 L nasal cannula. PHYSICAL EXAMINATION Vital signs reviewed. Head: Normocephalic. Eyes: Sclerae nonicteric. Neck: Brisk carotid upstroke, no jugular venous distention. Lungs: Clear to auscultation. Heart: Irregular rate and rhythm, S1-S2, no S3, no murmur or rub. Abdomen: Soft nontender, positive bowel sounds. Extremities: No edema, intact distal pulses. Neuro: Alert, oritented, no focal deficits. Detailed neuro exam was not performed. ASSESSMENT Persistent atrial fibrillation with episode of RVR on 11/28 Chronic HFpEF Moderate mitral regurgitation Recent left cerebellar CVA September 2023 Acute metabolic encephalopathy, multifactorial Acute UTI Chronic radiation cystitis Prior history of uterine carcinoma S/p small bowel obstruction s/p surgery September 2023 Severe colonic diverticulosis History of vaginal bleeding not on anticoagulation CKD stage IIIb PLAN Patient is not on anticoagulation due to chronic radiation cystitis from radiation received for uterine carcinoma. Patient has had prior GI bleeding and vaginal bleeding. She also has high [id number] score because of recent CVA and multiple comorbidities. Overall patient is a poor candidate for anticoagulation. Continue aspirin 81 mg, atorvastatin 20 mg Discontinue Cardizem drip and start patient on oral Cardizem 30 mg 3 times daily Continue metoprolol 100 mg twice daily Nurse practitioner note has been reviewed, I agree with documented findings and plan of care. Patient was seen and examined. Objective - Vital Signs Vital signs: Vital Signs Temp 97.4 F L 11/29/23 11:30 Pulse 85 11/29/23 11:30 Resp 16 11/29/23 11:30 BP 127/85 11/29/23 11:30 Pulse Ox 100 11/29/23 11:30 FiO2 Intake & Output 11/28/23 11/29/23 11/29/23 18:59 06:59 18:59 Intake Total 193 Output Total 320 200 450 Balance -320 -200 -257 Intake: Oral 193 Output: Urine 320 200 450 Other: Voiding Method Indwelling Catheter Indwelling Catheter Indwelling Catheter - Labs CBC & Chem 7: 11/29/23 06:33 11/29/23 06:33 Labs: Abnormal Lab Results - Last 24 Hours (Table) 11/28/23 11/28/23 11/29/23 Range/Units 16:29 19:59 05:44 WBC (3.8-10.6) k/uL RBC (3.80-5.40) m/uL Hgb (11.4-16.0) gm/dL Hct (34.0-46.0) % MCV (80.0-100.0) fL MCHC (31.0-37.0) g/dL RDW (11.5-15.5) % Plt Count (150-450) k/uL Chloride (98-107) mmol/L BUN (7-17) mg/dL Creatinine (0.52-1.04) mg/dL Glucose (74-99) mg/dL POC Glucose (mg/dL) 194 H 188 H 143 H (70-110) mg/dL Alkaline Phosphatase (38-126) U/L Total Protein (6.3-8.2) g/dL Albumin (3.5-5.0) g/dL 11/29/23 11/29/23 11/29/23 Range/Units 06:22 06:33 06:33 WBC 13.2 H (3.8-10.6) k/uL RBC 2.84 L (3.80-5.40) m/uL Hgb 8.3 L (11.4-16.0) gm/dL Hct 29.0 L (34.0-46.0) % MCV 102.1 H (80.0-100.0) fL MCHC 28.6 L (31.0-37.0) g/dL RDW 16.0 H (11.5-15.5) % Plt Count 123 L (150-450) k/uL Chloride 108 H (98-107) mmol/L BUN 51 H (7-17) mg/dL Creatinine 1.52 H (0.52-1.04) mg/dL Glucose 156 H (74-99) mg/dL POC Glucose (mg/dL) 165 H (70-110) mg/dL Alkaline Phosphatase 130 H (38-126) U/L Total Protein 4.8 L (6.3-8.2) g/dL Albumin 2.1 L (3.5-5.0) g/dL 11/29/23 Range/Units 11:32 WBC (3.8-10.6) k/uL RBC (3.80-5.40) m/uL Hgb (11.4-16.0) gm/dL Hct (34.0-46.0) % MCV (80.0-100.0) fL MCHC (31.0-37.0) g/dL RDW (11.5-15.5) % Plt Count (150-450) k/uL Chloride (98-107) mmol/L BUN (7-17) mg/dL Creatinine (0.52-1.04) mg/dL Glucose (74-99) mg/dL POC Glucose (mg/dL) 158 H (70-110) mg/dL Alkaline Phosphatase (38-126) U/L Total Protein (6.3-8.2) g/dL Albumin (3.5-5.0) g/dL
[2023-11-29 16:47] LABS: Glucose,Whole Blood 163 mg/dL (70-110)
--- NOTE | 2023-11-29 17:57 | P.PN ---
Subjective Progress Note Date: 11/29/23 Principal diagnosis: Reason for follow-up is Enterococcus urinary tract infection and leukocytosis Patient is a 78-year female with a past medical history significant fo r atrial fibrillation CVA TIA hyperlipidemia HI brought into the hospital concerning for mental status changes patient did have a positive UA elevated white count concerning for urinary tract infection. On today's evaluation that is 11/29/2023, the patient continues to be afebrile, the patient is on 2 L nasal cannula oxygen and breathing comfortably, the Pt sleepy today and did not answer any question no vomiting or diarrhea reported by the nursing staff. Patient white count is down to 13.2, creat is 1.5 to urine with Enterococcus Objective - Vital Signs Vital signs: Vital Signs Temp 97.4 F L 11/29/23 11:30 Pulse 85 11/29/23 11:30 Resp 16 11/29/23 11:30 BP 127/85 11/29/23 11:30 Pulse Ox 100 11/29/23 11:30 FiO2 Intake & Output 11/28/23 11/29/23 11/29/23 18:59 06:59 18:59 Intake Total 193 Output Total 320 200 450 Balance -320 -200 -257 Intake: Oral 193 Output: Urine 320 200 450 Other: Voiding Method Indwelling Catheter Indwelling Catheter Indwelling Catheter - Exam GENERAL DESCRIPTION: An elderly female lying in bed in no distress RESPIRATORY SYSTEM: Unlabored breathing , decreased breath sounds at bases HEART: S1 S2 regular rate and rhythm , ABDOMEN: Soft , no tenderness EXTREMITIES: No edema feet - Labs CBC & Chem 7: 11/29/23 06:33 11/29/23 06:33 Labs: Abnormal Lab Results - Last 24 Hours (Table) 11/28/23 11/28/23 11/29/23 Range/Units 16:29 19:59 05:44 WBC (3.8-10.6) k/uL RBC (3.80-5.40) m/uL Hgb (11.4-16.0) gm/dL Hct (34.0-46.0) % MCV (80.0-100.0) fL MCHC (31.0-37.0) g/dL RDW (11.5-15.5) % Plt Count (150-450) k/uL Chloride (98-107) mmol/L BUN (7-17) mg/dL Creatinine (0.52-1.04) mg/dL Glucose (74-99) mg/dL POC Glucose (mg/dL) 194 H 188 H 143 H (70-110) mg/dL Alkaline Phosphatase (38-126) U/L Total Protein (6.3-8.2) g/dL Albumin (3.5-5.0) g/dL 11/29/23 11/29/23 11/29/23 Range/Units 06:22 06:33 06:33 WBC 13.2 H (3.8-10.6) k/uL RBC 2.84 L (3.80-5.40) m/uL Hgb 8.3 L (11.4-16.0) gm/dL Hct 29.0 L (34.0-46.0) % MCV 102.1 H (80.0-100.0) fL MCHC 28.6 L (31.0-37.0) g/dL RDW 16.0 H (11.5-15.5) % Plt Count 123 L (150-450) k/uL Chloride 108 H (98-107) mmol/L BUN 51 H (7-17) mg/dL Creatinine 1.52 H (0.52-1.04) mg/dL Glucose 156 H (74-99) mg/dL POC Glucose (mg/dL) 165 H (70-110) mg/dL Alkaline Phosphatase 130 H (38-126) U/L Total Protein 4.8 L (6.3-8.2) g/dL Albumin 2.1 L (3.5-5.0) g/dL 11/29/23 Range/Units 11:32 WBC (3.8-10.6) k/uL RBC (3.80-5.40) m/uL Hgb (11.4-16.0) gm/dL Hct (34.0-46.0) % MCV (80.0-100.0) fL MCHC (31.0-37.0) g/dL RDW (11.5-15.5) % Plt Count (150-450) k/uL Chloride (98-107) mmol/L BUN (7-17) mg/dL Creatinine (0.52-1.04) mg/dL Glucose (74-99) mg/dL POC Glucose (mg/dL) 158 H (70-110) mg/dL Alkaline Phosphatase (38-126) U/L Total Protein (6.3-8.2) g/dL Albumin (3.5-5.0) g/dL Assessment and Plan (1) UTI (urinary tract infection) Current Visit: Yes Status: Acute Code(s): N39.0 - URINARY TRACT INFECTION, SITE NOT SPECIFIED SNOMED Code(s): 18239118 (2) Leukocytosis Current Visit: No Status: Acute Code(s): D72.829 - ELEVATED WHITE BLOOD CELL COUNT, UNSPECIFIED SNOMED Code(s): 640245818 Plan: 1patient present to hospital mental status changes likely multifactorial in thi s patient also noticed to have significant elevated white count source likely UTI and also have a component of large effusion questionably cardiac etiology as not behaving as pneumonia or empyema. 2urine culture now growing Enterococcus that is sensitive to ampicillin 3patient is afebrile white count is trending down to continue with Unasyn and monitor clinical course closely Dictation was produced using [employer] dictation software. please excuse any grammatical, word or spelling errors. Time with Patient: Less than 30
[2023-11-29 20:02] LABS: Glucose,Whole Blood 150 mg/dL (70-110)
[2023-11-30 05:39] LABS: Glucose,Whole Blood 123 mg/dL (70-110)
[2023-11-30 11:32] LABS: Glucose,Whole Blood 144 mg/dL (70-110)
--- NOTE | 2023-11-30 13:23 | P.PN ---
Subjective Progress Note Date: 11/30/23 HISTORY OF PRESENTING ILLNESS 88-year-old female with past medical history of persistent atrial fibrillation, CVA, GI bleeding, vaginal bleeding, dyslipidemia not on anticoagulation because of prior vaginal and GI bleeding. Moderate cognitive impairment from vascular dementia. Patient has known history of uterine adenocarcinoma s/p radiation treatment in 2018. She also has history of right-sided hydronephrosis and right-sided ureteral stent In September patient had 2 hospital admissions because of bowel obstruction. In late September patient got admitted again with concerns of subacute versus acute CVA involving left cerebellum. Time patient was sent to the hospital because of altered mental status and worsening generalized weakness. Cardiology was consulted for atrial fibrillation with RVR on admission. An echocardiogram from September 2023 showed an EF of 50 to 55%, inferior wall hypokinesia, moderate mitral regurgitation 11/26/2023 Patient is seen and examined at bedside this a.m. Patient is lethargic and is laying in bed. Patient is drowsy and sleepy. Arousable on verbal stimuli. Denies any chest pain chest pressure. On telemetry she is in rate controlled atrial fibrillation. 11/28 Cardiology had previously signed off this case but were asked to reevaluate patient for A-fib with RVR. Patient's heart rate went into the 140s last evening and this morning. They gave beta-roshni early but did not seem to make a difference and Cardizem drip was resumed. Patient states her breathing is okay. She denies any chest pain and denies palpitations. She is currently in atrial fibrillation with controlled rate. Blood pressure 127/85, heart rate in the 80s, pulse ox 100% on 2 L nasal cannula. 11/29 Patient is seen today in follow-up. She remains in atrial fibrillation with fairly controlled rate, improved after meds this morning. Patient denies chest pain, shortness of breath, dizziness. Blood pressure 128/93, heart rate 118, pulse ox 93% on 2 L nasal cannula. PHYSICAL EXAMINATION Vital signs reviewed. Head: Normocephalic. Eyes: Sclerae nonicteric. Neck: Brisk carotid upstroke, no jugular venous distention. Lungs: Clear to auscultation. Heart: Irregular rate and rhythm, S1-S2, no S3, no murmur or rub. Abdomen: Soft nontender, positive bowel sounds. Extremities: No edema, intact distal pulses. Neuro: Awake, alert, confused. ASSESSMENT Persistent atrial fibrillation with episode of RVR on 11/28 Chronic HFpEF Moderate mitral regurgitation Recent left cerebellar CVA September 2023 Acute metabolic encephalopathy, multifactorial Acute UTI Chronic radiation cystitis Prior history of uterine carcinoma S/p small bowel obstruction s/p surgery September 2023 Severe colonic diverticulosis History of vaginal bleeding not on anticoagulation CKD stage IIIb PLAN Patient is not on anticoagulation due to chronic radiation cystitis from radiation received for uterine carcinoma. Patient has had prior GI bleeding and vaginal bleeding. She also has high [id number] score because of recent CVA and multiple comorbidities. Overall patient is a poor candidate for anticoagulation. Continue aspirin 81 mg, atorvastatin 20 mg Increase oral Cardizem to 60 mg 3 times daily Continue metoprolol 100 mg twice daily Nurse practitioner note has been reviewed, I agree with documented findings and plan of care. Patient was seen and examined. Objective - Vital Signs Vital signs: Vital Signs Temp 97.3 F L 11/30/23 08:45 Pulse 118 H 11/30/23 08:45 Resp 18 11/30/23 08:45 BP 128/93 11/30/23 08:45 Pulse Ox 93 L 11/30/23 08:45 FiO2 Intake & Output 11/29/23 11/30/23 11/30/23 18:59 06:59 18:59 Intake Total 429 100 Output Total 950 200 150 Balance -521 -200 -50 Weight 64.41 kg Intake: Oral 429 100 Output: Urine 950 200 150 Other: Voiding Method Indwelling Catheter Indwelling Catheter Indwelling Catheter - Labs CBC & Chem 7: 11/29/23 06:33 11/29/23 06:33 Labs: Abnormal Lab Results - Last 24 Hours (Table) 11/29/23 11/29/23 11/30/23 Range/Units 16:37 20:01 05:38 POC Glucose (mg/dL) 163 H 150 H 123 H (70-110) mg/dL 11/30/23 Range/Units 11:31 POC Glucose (mg/dL) 144 H (70-110) mg/dL
--- NOTE | 2023-11-30 14:40 | P.PN ---
Subjective Progress Note Date: 11/30/23 This 78,years old female with past medical history of Atrial Fibrillation , CVA/TIA, GI Bleed, Hyperlipidemia, no anticoagulation because of GI bleed, moderate cognitive impairment from vascular dementia. Attempted colonoscopy in 2021 showed a tortuous colon. Has known uterine a denocarcinoma. radiation treatment 2018. Then was lost to follow-up. Also supposed to followed up with radiation treatment at [facility]. Also had right- sided hydronephrosis in the past with right-sided ureteral stent. Admitted September 15/2024 with nausea vomiting abdominal pain. Found to have bowel obstruction was given NG tube to suction. 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 - underwent a robotic assisted decompression enterostomy with cl osure of small bowel and bypass proximal bowel to mid ileum. October 02 MRI of the brain showed acute/subacute CVA involving the left cerebellum. October 17 cholecystectomy. Patient was sent into the ER because of altered mental status. Patient herself not able to give much history. Denies any pain shortness of breath. Does not seem to be ambulatory. 11/26. Patient seen and examined. Patient is alert, not the best of historian. Does not look in acute distress 11/27. Patient seen and examined. Blood work done this morning showed WBC 16.4, hemoglobin 8.9, platelet count 136, sodium 130, potassium 3.2, BUN 53, creatinine 1.21. Patient continues to have poor appetite 11/28. Patient seen and examined. Patient went to [facility] overnight, had to be placed on Cardizem drip. Currently denies any palpitations. 11/29. Patient seen and examined. Heart rate is better controlled, cardiology increase of Cardizem to 60 mg 3 times daily. Denies any palpitations REVIEW OF SYSTEMS: CONSTITUTIONAL: No fever, no malaise,. CARDIOVASCULAR: No chest pain, no palpitations, no syncope. PULMONARY: No shortness of breath, no cough, GASTROINTESTINAL: No diarrhea, no abdominal pain. NEUROLOGICAL: No headaches, no weakness, PHYSICAL EXAMINATION: GENERAL: The patient is alert , history of dementia, not in any acute distress. Ill looking HEENT: Pupils are round and equally reacting to light. EOMI. No scleral icterus. No conjunctival pallor. Normocephalic, atraumatic. No pharyngeal erythema. No thyromegaly. CARDIOVASCULAR: S1 and S2 present. No murmurs, rubs, or gallops. PULMONARY: Chest is clear to auscultation, no wheezing or crackles. ABDOMEN: Soft, nontender, nondistended, normoactive bowel sounds. No palpable organomegaly. MUSCULOSKELETAL: No joint swelling or deformity. EXTREMITIES: No cyanosis, clubbing, or pedal edema. NEUROLOGICAL: Gross neurological examination did not reveal any focal deficits. SKIN: No rashes. Assessment and plan Acute metabolic encephalopathy -Acute UTI with cystitis -Chronic radiation cystitis. -History of small bowel obstruction leading to surgery.by Dr. Blood on September 24, 2023. Robotic-assisted da Radha Xi laparoscopic decompressive enterostomy with closure small bowel, proximal ileum. Robotic-assisted da Radha Xi laparoscopic small bowel external bypass proximal ileum to mid ileum - tortuous colon with a prior history of unsuccessful colonoscopy -Severe colonic diverticulosis -History of vaginal bleeding in a patient with known uterine adenocarcinoma. - radiation treatment 2018. Apparently patient was lost to follow-up. -Chronic kidney disease stage IIIb likely nephrosclerosis -Chronic congestive heart failure from diastolic dysfunction EF 50 to 55% % -Moderate mitral and tricuspid regurgitation. -CAD with a history of stent -Right hydronephrosis, with a right ureteral stent. Possibly of 2 years duration. Possibly placed at [facility] -Persistent atrial fibrillation, - left cerebellar infarct -Medical debility. -Large left adrenal mass likely adenoma -Moderate cognitive impairment from likely vascular dementia and multi-infarct dementia- Monitor vital signs Monitor CBC Monitor CMP Continue telemetry monitoring Encourage use of incentive spirometer Follow-up on urine cultures Continue IV Unasyn Continue aspirin, Lipitor Cardizem dose increased to 60 mg 3 times daily Continue metoprolol 100 mg twice daily. Potassium replacement ordered Cardiology following, agree that patient high risk for anticoagulation because of her high bled score ID following Labs and medication were reviewed.. Continue same treatment. Continue with symptomatic treatment. Resume home medication. Monitor labs and vitals. DVT and GI prophylaxis. Further recommendations as per clinical course of the ting ent . Objective - Vital Signs Vital signs: Vital Signs Temp 97.3 F L 11/30/23 08:45 Pulse 82 11/30/23 11:05 Resp 18 11/30/23 11:05 BP 128/81 11/30/23 11:05 Pulse Ox 95 11/30/23 11:05 FiO2 Intake & Output 11/29/23 11/30/23 11/30/23 18:59 06:59 18:59 Intake Total 429 250 Output Total 950 200 150 Balance -521 -200 100 Weight 64.41 kg Intake: Oral 429 250 Output: Urine 950 200 150 Other: Voiding Method Indwelling Catheter Indwelling Catheter Indwelling Catheter - Labs CBC & Chem 7: 11/29/23 06:33 11/29/23 06:33 Labs: Abnormal Lab Results - Last 24 Hours (Table) 11/29/23 11/29/23 11/30/23 Range/Units 16:37 20:01 05:38 POC Glucose (mg/dL) 163 H 150 H 123 H (70-110) mg/dL 11/30/23 Range/Units 11:31 POC Glucose (mg/dL) 144 H (70-110) mg/dL
[2023-11-30] MEDS: DILTIAZEM ORAL 60 MG TAB PO SCH (15:22)
[2023-11-30 16:40] LABS: Glucose,Whole Blood 150 mg/dL (70-110)
[2023-11-30 19:53] LABS: Glucose,Whole Blood 137 mg/dL (70-110)
[2023-12-01 05:56] LABS: Glucose,Whole Blood 130 mg/dL (70-110)
[2023-12-01 11:48] LABS: Glucose,Whole Blood 240 mg/dL (70-110)
--- NOTE | 2023-12-01 12:32 | P.PN ---
Subjective Progress Note Date: 12/01/23 Principal diagnosis: Reason for follow-up is Enterococcus urinary tract infection and leukocytosis Patient is a 78-year female with a past medical history significant fo r atrial fibrillation CVA TIA hyperlipidemia AL brought into the hospital concerning for mental status changes patient did have a positive UA elevated white count concerning for urinary tract infection. On today's evaluation that is 12/01/2023, patient has been afebrile, patient is breathing comfortably and is currently on 2 L nasal cannula oxygen patient denies having any significant cough no chest pain shortness of breath, patient denies nausea vomiting or diarrhea and no abdominal pain still have periods of confusion reported by the nursing staff No new lab has been obtained today Objective - Vital Signs Vital signs: Vital Signs Temp 97.5 F L 12/01/23 11:52 Pulse 71 12/01/23 11:52 Resp 20 12/01/23 11:52 BP 128/69 12/01/23 11:52 Pulse Ox 98 12/01/23 11:52 FiO2 Intake & Output 11/30/23 12/01/23 12/01/23 18:59 06:59 18:59 Intake Total 250 0 110 Output Total 300 0 Balance -50 0 110 Weight 64.41 kg Intake: IV 10 Invasive Line 8 10 Oral 250 0 100 Output: Urine 300 0 Other: Voiding Method Indwelling Catheter Indwelling Catheter Indwelling Catheter - Exam GENERAL DESCRIPTION: An elderly female lying in bed in no distress RESPIRATORY SYSTEM: Unlabored breathing , decreased breath sounds at bases HEART: S1 S2 regular rate and rhythm , ABDOMEN: Soft , no tenderness EXTREMITIES: No edema feet - Labs CBC & Chem 7: 11/29/23 06:33 11/29/23 06:33 Labs: Abnormal Lab Results - Last 24 Hours (Table) 11/30/23 11/30/23 12/01/23 Range/Units 16:39 19:52 05:54 POC Glucose (mg/dL) 150 H 137 H 130 H (70-110) mg/dL 12/01/23 Range/Units 11:47 POC Glucose (mg/dL) 240 H (70-110) mg/dL Assessment and Plan (1) UTI (urinary tract infection) Current Visit: Yes Status: Acute Code(s): N39.0 - URINARY TRACT INFECTION, SITE NOT SPECIFIED SNOMED Code(s): 93956824 (2) Leukocytosis Current Visit: No Status: Acute Code(s): D72.829 - ELEVATED WHITE BLOOD CELL COUNT, UNSPECIFIED SNOMED Code(s): 696341655 Plan: 1patient present to hospital mental status changes likely multifactorial in this patient also noticed to have significant elevated white count source likely UTI and also have a component of large effusion questionably cardiac etiology as not behaving as pneumonia or empyema. 2urine culture now growing Enterococcus that is sensitive to ampicillin 3patient is afebrile white count is trending down as of 11/29/2023 no CBC was done today, to continue with Unasyn and will repeat CBC with a.m. lab to make s ure white count has normalized Dictation was produced using [employer] dictation software. please excuse any grammatical, word or spelling errors. Time with Patient: Less than 30
--- NOTE | 2023-12-01 12:32 | P.PN ---
Subjective Progress Note Date: 11/30/23 Principal diagnosis: Reason for follow-up is Enterococcus urinary tract infection and leukocytosis Patient is a 78-year female with a past medical history significant fo r atrial fibrillation CVA TIA hyperlipidemia [place] brought into the hospital concerning for mental status changes patient did have a positive UA elevated white count concerning for urinary tract infection. On today's evaluation that is 11/30/2023, Patient is afebrile patient is currently on 2 L nasal oxygen and breathing comfortably no distress patient is sleepy did not answer any question no vomiting or diarrhea reported by the nursing staff No new labs has been obtained today Objective - Vital Signs Vital signs: Vital Signs Temp 97.3 F L 11/30/23 08:45 Pulse 118 H 11/30/23 08:45 Resp 18 11/30/23 08:45 BP 128/93 11/30/23 08:45 Pulse Ox 93 L 11/30/23 08:45 FiO2 Intake & Output 11/29/23 11/30/23 11/30/23 18:59 06:59 18:59 Intake Total 429 100 Output Total 950 200 150 Balance -521 -200 -50 Weight 64.41 kg Intake: Oral 429 100 Output: Urine 950 200 150 Other: Voiding Method Indwelling Catheter Indwelling Catheter Indwelling Catheter - Exam GENERAL DESCRIPTION: An elderly female lying in bed in no distress RESPIRATORY SYSTEM: Unlabored breathing , decreased breath sounds at bases HEART: S1 S2 regular rate and rhythm , ABDOMEN: Soft , no tenderness EXTREMITIES: No edema feet - Labs CBC & Chem 7: 11/29/23 06:33 11/29/23 06:33 Labs: Abnormal Lab Results - Last 24 Hours (Table) 11/29/23 11/29/23 11/30/23 Range/Units 16:37 20:01 05:38 POC Glucose (mg/dL) 163 H 150 H 123 H (70-110) mg/dL 11/30/23 Range/Units 11:31 POC Glucose (mg/dL) 144 H (70-110) mg/dL Assessment and Plan (1) UTI (urinary tract infection) Current Visit: Yes Status: Acute Code(s): N39.0 - URINARY TRACT INFECTION, SITE NOT SPECIFIED SNOMED Code(s): 28532492 (2) Leukocytosis Current Visit: No Status: Acute Code(s): D72.829 - ELEVATED WHITE BLOOD CELL COUNT, UNSPECIFIED SNOMED Code(s): 596114698 Plan: 1patient present to hospital mental status changes likely multifactorial in this patient also noticed to have significant elevated white count source likely UTI and also have a component of large effusion questionably cardiac etiology as not behaving as pneumonia or empyema. 2urine culture now growing Enterococcus that is sensitive to ampicillin 3patient is afebrile white count is trending down as of yesterday no CBC was done today, to continue with Unasyn and continue supportive care Dictation was produced using [employer] dictation software. please excuse any grammatical, word or spelling errors. Time with Patient: Less than 30
--- NOTE | 2023-12-01 12:57 | P.PN ---
Subjective Progress Note Date: 12/01/23 This 78,years old female with past medical history of Atrial Fibrillation , CVA/TIA, GI Bleed, Hyperlipidemia, no anticoagulation because of GI bleed, moderate cognitive impairment from vascular dementia. Attempted colonoscopy in 2021 showed a tortuous colon. Has known uterine a denocarcinoma. radiation treatment 2018. Then was lost to follow-up. Also supposed to followed up with radiation treatment at [facility]. Also had right- sided hydronephrosis in the past with right-sided ureteral stent. Admitted September 15/2024 with nausea vomiting abdominal pain. Found to have bowel obstruction was given NG tube to suction. 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 - underwent a robotic assisted decompression enterostomy with cl osure of small bowel and bypass proximal bowel to mid ileum. October 02 MRI of the brain showed acute/subacute CVA involving the left cerebellum. October 17 cholecystectomy. Patient was sent into the ER because of altered mental status. Patient herself not able to give much history. Denies any pain shortness of breath. Does not seem to be ambulatory. 11/26. Patient seen and examined. Patient is alert, not the best of historian. Does not look in acute distress 11/27. Patient seen and examined. Blood work done this morning showed WBC 16.4, hemoglobin 8.9, platelet count 136, sodium 130, potassium 3.2, BUN 53, creatinine 1.21. Patient continues to have poor appetite 11/28. Patient seen and examined. Patient went to [facility] overnight, had to be placed on Cardizem drip. Currently denies any palpitations. 11/29. Patient seen and examined. Heart rate is better controlled, cardiology increase of Cardizem to 60 mg 3 times daily. Denies any palpitations 11/30. Patient seen and examined. Currently sitting upright in the chair. States she feels better compared to yesterday REVIEW OF SYSTEMS: CONSTITUTIONAL: No fever, no malaise,. CARDIOVASCULAR: No chest pain, no palpitations, no syncope. PULMONARY: No shortness of breath, no cough, GASTROINTESTINAL: No diarrhea, no abdominal pain. NEUROLOGICAL: No headaches, no weakness, PHYSICAL EXAMINATION: GENERAL: The patient is alert , history of dementia, not in any acute distress. Ill looking HEENT: Pupils are round and equally reacting to light. EOMI. No scleral icterus. No conjunctival pallor. Normocephalic, atraumatic. No pharyngeal erythema. No thyromegaly. CARDIOVASCULAR: S1 and S2 present. No murmurs, rubs, or gallops. PULMONARY: Chest is clear to auscultation, no wheezing or crackles. ABDOMEN: Soft, nontender, nondistended, normoactive bowel sounds. No palpable organomegaly. MUSCULOSKELETAL: No joint swelling or deformity. EXTREMITIES: No cyanosis, clubbing, or pedal edema. NEUROLOGICAL: Gross neurological examination did not reveal any focal deficits. SKIN: No rashes. Assessment and plan Acute metabolic encephalopathy -Acute UTI with cystitis -Chronic radiation cystitis. -History of small bowel obstruction leading to surgery.by Dr. Blood on September 24, 2023. Robotic-assisted da Radha Xi laparoscopic decompressive enterostomy with closure small bowel, proximal ileum. Robotic-assisted da Radha Xi laparoscopic small bowel external bypass proximal ileum to mid ileum - tortuous colon with a prior history of unsuccessful colonoscopy -Severe colonic diverticulosis -History of vaginal bleeding in a patient with known uterine adenocarcinoma. - radiation treatment 2018. Apparently patient was lost to follow-up. -Chronic kidney disease stage IIIb likely nephrosclerosis -Chronic congestive heart failure from diastolic dysfunction EF 50 to 55% % -Moderate mitral and tricuspid regurgitation. -CAD with a history of stent -Right hydronephrosis, with a right ureteral stent. Possibly of 2 years duration. Possibly placed at [facility] -Persistent atrial fibrillation, - left cerebellar infarct -Medical debility. -Large left adrenal mass likely adenoma -Moderate cognitive impairment from likely vascular dementia and multi-infarct dementia- Monitor vital signs Monitor CBC Monitor CMP Continue telemetry monitoring Encourage use of incentive spirometer Follow-up on urine cultures Continue IV Unasyn Continue aspirin, Lipitor Continue Cardizem 60 mg 3 times daily Continue metoprolol 100 mg twice daily. Cardiology following, agree that patient high risk for anticoagulation because of her high bled score ID following Labs and medication were reviewed.. Continue same treatment. Continue with symptomatic treatment. Resume home medication. Monitor labs and vitals. DVT and GI prophylaxis. Further recommendations as per clinical course of the patient . Objective - Vital Signs Vital signs: Vital Signs Temp 97.5 F L 12/01/23 11:52 Pulse 71 12/01/23 11:52 Resp 20 12/01/23 11:52 BP 128/69 12/01/23 11:52 Pulse Ox 98 12/01/23 11:52 FiO2 Intake & Output 11/30/23 12/01/23 12/01/23 18:59 06:59 18:59 Intake Total 250 0 110 Output Total 300 0 Balance -50 0 110 Weight 64.41 kg Intake: IV 10 Invasive Line 8 10 Oral 250 0 100 Output: Urine 300 0 Other: Voiding Method Indwelling Catheter Indwelling Catheter Indwelling Catheter - Labs CBC & Chem 7: 11/29/23 06:33 11/29/23 06:33 Labs: Abnormal Lab Results - Last 24 Hours (Table) 11/30/23 11/30/23 12/01/23 Range/Units 16:39 19:52 05:54 POC Glucose (mg/dL) 150 H 137 H 130 H (70-110) mg/dL 12/01/23 Range/Units 11:47 POC Glucose (mg/dL) 240 H (70-110) mg/dL
--- NOTE | 2023-12-01 13:36 | P.PN ---
Subjective Progress Note Date: 12/01/23 HISTORY OF PRESENTING ILLNESS 88-year-old female with past medical history of persistent atrial fibrillation, CVA, GI bleeding, vaginal bleeding, dyslipidemia not on anticoagulation because of prior vaginal and GI bleeding. Moderate cognitive impairment from vascular dementia. Patient has known history of uterine adenocarcinoma s/p radiation treatment in 2018. She also has history of right-sided hydronephrosis and right-sided ureteral stent In September patient had 2 hospital admissions because of bowel obstruction. In late September patient got admitted again with concerns of subacute versus acute CVA involving left cerebellum. Time patient was sent to the hospital because of altered mental status and worsening generalized weakness. Cardiology was consulted for atrial fibrillation with RVR on admission. An echocardiogram from September 2023 showed an EF of 50 to 55%, inferior wall hypokinesia, moderate mitral regurgitation 11/26/2023 Patient is seen and examined at bedside this a.m. Patient is lethargic and is laying in bed. Patient is drowsy and sleepy. Arousable on verbal stimuli. Denies any chest pain chest pressure. On telemetry she is in rate controlled atrial fibrillation. 11/28 Cardiology had previously signed off this case but were asked to reevaluate patient for A-fib with RVR. Patient's heart rate went into the 140s last evening and this morning. They gave beta-roshni early but did not seem to make a difference and Cardizem drip was resumed. Patient states her breathing is okay. She denies any chest pain and denies palpitations. She is currently in atrial fibrillation with controlled rate. Blood pressure 127/85, heart rate in the 80s, pulse ox 100% on 2 L nasal cannula. 11/29 Patient is seen today in follow-up. She remains in atrial fibrillation with fairly controlled rate, improved after meds this morning. Patient denies chest pain, shortness of breath, dizziness. Blood pressure 128/93, heart rate 118, pulse ox 93% on 2 L nasal cannula. 11/30 Patient's heart rate has been mostly controlled in the low 100s. Blood pressure 128/69, pulse ox 98% on 2 L nasal cannula. Patient states she slept okay last night. She states her breathing is okay. She does have hematuria in Crockett catheter. PHYSICAL EXAMINATION Vital signs reviewed. Head: Normocephalic. Eyes: Sclerae nonicteric. Neck: Brisk carotid upstroke, no jugular venous distention. Lungs: Clear to auscultation. Heart: Irregular rate and rhythm, S1-S2, no S3, no murmur or rub. Abdomen: Soft nontender, positive bowel sounds. Extremities: No edema, intact distal pulses. Neuro: Awake, alert, confused. ASSESSMENT Persistent atrial fibrillation with episode of RVR on 11/28 Chronic HFpEF Moderate mitral regurgitation Recent left cerebellar CVA September 2023 Acute metabolic encephalopathy, multifactorial Acute UTI Chronic radiation cystitis Prior history of uterine carcinoma S/p small bowel obstruction s/p surgery September 2023 Severe colonic diverticulosis History of vaginal bleeding not on anticoagulation CKD stage IIIb PLAN Patient is not on anticoagulation due to chronic radiation cystitis from radiation received for uterine carcinoma. Patient has had prior GI bleeding and vaginal bleeding. She also has high [id number] score because of recent CVA and multiple comorbidities. Overall patient is a poor candidate for anticoagulation. Continue aspirin 81 mg, atorvastatin 20 mg Continue oral Cardizem 60 mg 3 times daily Continue metoprolol 100 mg twice daily No medication changes made today. Nurse practitioner note has been reviewed, I agree with documented findings and plan of care. Patient was seen and examined. Objective - Vital Signs Vital signs: Vital Signs Temp 97.6 F 12/01/23 09:07 Pulse 105 H 12/01/23 09:07 Resp 22 12/01/23 09:07 BP 133/80 12/01/23 09:07 Pulse Ox 97 12/01/23 09:07 FiO2 Intake & Output 11/30/23 12/01/23 12/01/23 18:59 06:59 18:59 Intake Total 250 0 10 Output Total 300 0 Balance -50 0 10 Weight 64.41 kg Intake: IV 10 Invasive Line 8 10 Oral 250 0 Output: Urine 300 0 Other: Voiding Method Indwelling Catheter Indwelling Catheter - Labs CBC & Chem 7: 11/29/23 06:33 11/29/23 06:33 Labs: Abnormal Lab Results - Last 24 Hours (Table) 11/30/23 11/30/23 11/30/23 Range/Units 11:31 16:39 19:52 POC Glucose (mg/dL) 144 H 150 H 137 H (70-110) mg/dL 12/01/23 Range/Units 05:54 POC Glucose (mg/dL) 130 H (70-110) mg/dL
[2023-12-01 16:34] LABS: Glucose,Whole Blood 182 mg/dL (70-110)
[2023-12-01 20:16] LABS: Glucose,Whole Blood 172 mg/dL (70-110)
[2023-12-02 05:57] LABS: Glucose,Whole Blood 181 mg/dL (70-110)
[2023-12-02 09:05] LABS: ALT 17 U/L (4-34); AST 23 U/L (14-36); African American GFR (CKD) 41 (>60 ml/min/1.73 sqM); Albumin 2.3 g/dL (3.5-5.0); Alkaline Phosphatase 118 U/L (38-126); Anion Gap 9 mmol/L; Blood Urea Nitrogen 62 mg/dL (7-17); Calcium 8.7 mg/dL (8.4-10.2); Carbon Dioxide 23 mmol/L (22-30); Chloride 111 mmol/L (98-107); Glucose 145 mg/dL (74-99); Non-African American GFR(CKD) 35 (>60 ml/min/1.73 sqM); Potassium 4.3 mmol/L (3.5-5.1); Sodium 143 mmol/L (137-145); Total Bilirubin 0.9 mg/dL (0.2-1.3); Total Protein 5.2 g/dL (6.3-8.2)
[2023-12-02 09:08] LABS: Anisocytosis Slight; Basophils % (A) 0 %; Eosinophils % (A) 0 %; HCT 30.7 % (34.0-46.0); HGB 8.7 gm/dL (11.4-16.0); Hypochromasia Marked; Lymphocytes # (A) 0.9 k/uL (1.0-4.8); Lymphocytes % (A) 8 %; MCH 29.7 pg (25.0-35.0); MCHC 28.5 g/dL (31.0-37.0); MCV 104.1 fL (80.0-100.0); Macrocytosis Moderate; Mean Platelet Volume 10.4; Monocytes # (A) 0.4 k/uL (0-1.0); Monocytes % (A) 4 %; Neutrophils # (A) 9.9 k/uL (1.3-7.7); Neutrophils % (A) 88 %; Platelet Count 114 k/uL (150-450); RBC 2.94 m/uL (3.80-5.40); RDW 16.3 % (11.5-15.5); WBC 11.3 k/uL (3.8-10.6)
--- NOTE | 2023-12-02 10:45 | P.PN ---
Subjective Progress Note Date: 12/02/23 HISTORY OF PRESENTING ILLNESS 88-year-old female with past medical history of persistent atrial fibrillation, CVA, GI bleeding, vaginal bleeding, dyslipidemia not on anticoagulation because of prior vaginal and GI bleeding. Moderate cognitive impairment from vascular dementia. Patient has known history of uterine adenocarcinoma s/p radiation treatment in 2018. She also has history of right-sided hydronephrosis and right-sided ureteral stent In September patient had 2 hospital admissions because of bowel obstruction. In late September patient got admitted again with concerns of subacute versus acute CVA involving left cerebellum. Time patient was sent to the hospital because of altered mental status and worsening generalized weakness. Cardiology was consulted for atrial fibrillation with RVR on admission. An echocardiogram from September 2023 showed an EF of 50 to 55%, inferior wall hypokinesia, moderate mitral regurgitation 11/26/2023 Patient is seen and examined at bedside this a.m. Patient is lethargic and is laying in bed. Patient is drowsy and sleepy. Arousable on verbal stimuli. Denies any chest pain chest pressure. On telemetry she is in rate controlled atrial fibrillation. 11/28 Cardiology had previously signed off this case but were asked to reevaluate patient for A-fib with RVR. Patient's heart rate went into the 140s last evening and this morning. They gave beta-roshni early but did not seem to make a difference and Cardizem drip was resumed. Patient states her breathing is okay. She denies any chest pain and denies palpitations. She is currently in atrial fibrillation with controlled rate. Blood pressure 127/85, heart rate in the 80s, pulse ox 100% on 2 L nasal cannula. 11/29 Patient is seen today in follow-up. She remains in atrial fibrillation with fairly controlled rate, improved after meds this morning. Patient denies chest pain, shortness of breath, dizziness. Blood pressure 128/93, heart rate 118, pulse ox 93% on 2 L nasal cannula. 11/30 Patient's heart rate has been mostly controlled in the low 100s. Blood pressure 128/69, pulse ox 98% on 2 L nasal cannula. Patient states she slept okay last night. She states her breathing is okay. She does have hematuria in Crockett catheter. 12/01 Patient states that she slept okay last night. No chest pain, no dizziness. Patient remains in atrial fibrillation heart rate is 99-109 on telemetry. Blood pressure 135/93, pulse ox 99% on 2 L nasal cannula. Repeat blood work reveals WBC 11.3, hemoglobin 8.7. BUN 62 and creatinine 1.42. PHYSICAL EXAMINATION Vital signs reviewed. Head: Normocephalic. Eyes: Sclerae nonicteric. Neck: Brisk carotid upstroke, no jugular venous distention. Lungs: Clear to auscultation. Heart: Irregular rate and rhythm, S1-S2, no S3, no murmur or rub. Abdomen: Soft nontender, positive bowel sounds. Extremities: No edema, intact distal pulses. Neuro: Awake, alert, confused. ASSESSMENT Persistent atrial fibrillation with episode of RVR on 11/28 Chronic HFpEF Moderate mitral regurgitation Recent left cerebellar CVA September 2023 Acute metabolic encephalopathy, multifactorial Acute UTI Chronic radiation cystitis Prior history of uterine carcinoma S/p small bowel obstruction s/p surgery September 2023 Severe colonic diverticulosis History of vaginal bleeding not on anticoagulation CKD stage IIIb PLAN Patient is not on anticoagulation due to chronic radiation cystitis from radiation received for uterine carcinoma. Patient has had prior GI bleeding and vaginal bleeding. She also has high [id number] score because of recent CVA and multiple comorbidities. Overall patient is a poor candidate for anticoagulation. Continue aspirin 81 mg, atorvastatin 20 mg Continue oral Cardizem 60 mg 3 times daily Continue metoprolol 100 mg twice daily No medication changes made today. Cardiology will sign off this case and follow on an as-needed basis. Please reconsult for any new concerns. Patient may follow-up in the office in one to 2 weeks. Nurse practitioner note has been reviewed, I agree with documented findings and plan of care. Patient was seen and examined. Objective - Vital Signs Vital signs: Vital Signs Temp 96 F L 12/02/23 08:42 Pulse 135 H 12/02/23 08:42 Resp 18 12/02/23 08:42 BP 135/93 12/02/23 08:42 Pulse Ox 99 12/02/23 08:42 FiO2 Intake & Output 12/01/23 12/02/23 12/02/23 18:59 06:59 18:59 Intake Total 155 0 35 Output Total 500 200 Balance -345 -200 35 Intake: IV 10 10 Invasive Line 8 10 Invasive Line 9 10 Oral 145 0 25 Output: Urine 500 200 Other: Voiding Method Indwelling Catheter Indwelling Catheter # Bowel Movements 0 - Labs CBC & Chem 7: 12/02/23 08:21 12/02/23 08:21 Labs: Abnormal Lab Results - Last 24 Hours (Table) 12/01/23 12/01/23 12/01/23 Range/Units 11:47 16:33 20:15 WBC (3.8-10.6) k/uL RBC (3.80-5.40) m/uL Hgb (11.4-16.0) gm/dL Hct (34.0-46.0) % MCV (80.0-100.0) fL MCHC (31.0-37.0) g/dL RDW (11.5-15.5) % Plt Count (150-450) k/uL Neutrophils # (1.3-7.7) k/uL Lymphocytes # (1.0-4.8) k/uL Chloride (98-107) mmol/L BUN (7-17) mg/dL Creatinine (0.52-1.04) mg/dL Glucose (74-99) mg/dL POC Glucose (mg/dL) 240 H 182 H 172 H (70-110) mg/dL Total Protein (6.3-8.2) g/dL Albumin (3.5-5.0) g/dL 12/02/23 12/02/23 12/02/23 Range/Units 05:56 08:21 08:21 WBC 11.3 H (3.8-10.6) k/uL RBC 2.94 L (3.80-5.40) m/uL Hgb 8.7 L (11.4-16.0) gm/dL Hct 30.7 L (34.0-46.0) % MCV 104.1 H (80.0-100.0) fL MCHC 28.5 L (31.0-37.0) g/dL RDW 16.3 H (11.5-15.5) % Plt Count 114 L (150-450) k/uL Neutrophils # 9.9 H (1.3-7.7) k/uL Lymphocytes # 0.9 L (1.0-4.8) k/uL Chloride 111 H (98-107) mmol/L BUN 62 H (7-17) mg/dL Creatinine 1.42 H (0.52-1.04) mg/dL Glucose 145 H (74-99) mg/dL POC Glucose (mg/dL) 181 H (70-110) mg/dL Total Protein 5.2 L (6.3-8.2) g/dL Albumin 2.3 L (3.5-5.0) g/dL
[2023-12-02 11:35] LABS: Glucose,Whole Blood 220 mg/dL (70-110)
[2023-12-02] MEDS: INSULIN ASPART (NovoLOG) 100 UNIT/ML VIAL SQ SCH (16:27)
[2023-12-02 16:34] LABS: Glucose,Whole Blood 284 mg/dL (70-110)
--- NOTE | 2023-12-02 16:44 | P.PN ---
Progress Note - Text Progress Note Date: 12/02/23 This 78,years old female with past medical history of Atrial Fibrillation , CVA/TIA, GI Bleed, Hyperlipidemia, no anticoagulation because of GI bleed, moderate cognitive impairment from vascular dementia. Attempted colonoscopy in 2021 showed a tortuous colon. Has known uterine adenocarcinoma. radiation treatment 2018. Then was lost to follow-up. Also supposed to followed up with radiation treatment at [facility]. Also had right- sided hydronephrosis in the past with right-sided ureteral stent. Admitted September 15/2024 with nausea vomiting abdominal pain. Found to have bowel obstruction was given NG tube to suction. 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 - underwent a robotic assisted decompression enterostomy with closure of small bowel and bypass proximal bowel to mid ileum. October 02 MRI of the brain showed acute/subacute CVA involving the left cerebellum. October 17 cholecystectomy. Patient was sent into the ER because of altered mental status. Patient herself not able to give much history. Denies any pain shortness of breath. Does not seem to be ambulatory. 11/26. Patient seen and examined. Patient is alert, not the best of historian. Does not look in acute distress 11/27. Patient seen and examined. Blood work done this morning showed WBC 16.4, hemoglobin 8.9, platelet count 136, sodium 130, potassium 3.2, BUN 53, creatinine 1.21. Patient continues to have poor appetite 11/28. Patient seen and examined. Patient went to [facility] overnight, had to be placed on Cardizem drip. Currently denies any palpitations. 11/29. Patient seen and examined. Heart rate is better controlled, cardiology increase of Cardizem to 60 mg 3 times daily. Denies any palpitations 11/30. Patient seen and examined. Currently sitting upright in the chair. States she feels better compared to yesterday December 01: Oral intake is poor. Tired. Does open eyes. Will answer occasional questions. Prognosis not good. Laying in bed today. Franklyn to the nurse. Poor oral intake. Active Medications Acetaminophen (Acetaminophen Tab 325 Mg Tab) 650 mg PO Q6HR PRN PRN Reason: Mild Pain or Fever > 100.5 Hydrocodone Bitart/Acetaminophen (Hydrocodone/Apap 5-325mg 1 Each Tab) 1 each PO Q6H [facility] Last Admin: 12/02/23 16:26 Dose: 1 each Aspirin (Aspirin 81 Mg) 81 mg PO DAILY [facility] Last Admin: 12/02/23 08:49 Dose: 81 mg Atorvastatin Calcium (Atorvastatin 20 Mg Tab) 20 mg PO HS [facility] Last Admin: 12/01/23 20:32 Dose: 20 mg Diltiazem HCl (Diltiazem Oral 60 Mg Tab) 60 mg PO TID [facility] Last Admin: 12/02/23 16:27 Dose: 60 mg Folic Acid (Folic Acid 1 Mg Tab) 1 mg PO DAILY [facility] Last Admin: 12/02/23 08:49 Dose: 1 mg Ampicillin Sodium/Sulbactam (Sodium 3 gm/ Sodium Chloride) 100 mls @ 200 mls/hr IVPB Q8HR [facility]; Protocol Last Admin: 12/02/23 16:26 Dose: 200 mls/hr Insulin Aspart (Insulin Aspart (Novolog) 100 Unit/Ml Vial) 0 unit SQ ACHS [facility]; Protocol Last Admin: 12/02/23 16:27 Dose: 2 unit Lidocaine (Lidocaine 4% Patch) 1 patch TOPICAL DAILY [facility]; Protocol Last Admin: 12/02/23 08:49 Dose: 1 patch Metoprolol Tartrate (Metoprolol Tartrate 50 Mg Tab) 100 mg PO BID [facility] Last Admin: 12/02/23 08:49 Dose: 100 mg Naloxone HCl (Naloxone 0.4 Mg/Ml 1 Ml Vial) 0.2 mg IV Q2M PRN PRN Reason: Opioid Reversal Social history: at [facility]. Started smoking at the age of 13 stopped in 2011. 1 pack a day. No alcohol. Physical examination: VITAL SIGNS: 96.8, 83, 20, 120 x 77, 99% on 3 L GENERAL: Reclining in bed, tired but arousable EYES: Pupils equal. Conjunctiva normal. HEENT: External appearance of nose and ears normal, oral cavity-dry mucous membrane NECK: JVD not raised; masses not palpable. HEART: Heart sounds irregular; no edema. LUNGS: Respiratory rate increased, decreased breath sounds ABDOMEN: Soft, non-tender, liver spleen not palpable, no masses palpable. Crockett catheter: PSYCH: Answer simple questions MUSCULOSKELETAL:No Clubbing/cyanosis;muscles-grossly intact. OA. Loss of muscle mass INVESTIGATIONS, reviewed in the clinical context: December 09: White count 9.3 hemoglobin 8.7 platelets 114 potassium 4.3 BUN 62 creatinine 1.42 Assessment and plan Acute metabolic encephalopathy -Acute UTI with cystitis, from Enterococcus faecalis -Chronic radiation cystitis. -History of small bowel obstruction leading to surgery.by Dr. Blood on September 24, 2023. Robotic-assisted da Radha Xi laparoscopic decompressive enterostomy with closure small bowel, proximal ileum. Robotic-assisted da Radha Xi laparoscopic small bowel external bypass proximal ileum to mid ileum - tortuous colon with a prior history of unsuccessful colonoscopy -Severe colonic diverticulosis -History of vaginal bleeding in a patient with known uterine adenocarcinoma. - radiation treatment 2018. Apparently patient was lost to follow-up. -Chronic kidney disease stage IIIb likely nephrosclerosis -Chronic congestive heart failure from diastolic dysfunction EF 50 to 55% % -Moderate mitral and tricuspid regurgitation. -CAD with a history of stent -Right hydronephrosis, with a right ureteral stent. Possibly of 2 years duration. Possibly placed at [facility] -Persistent atrial fibrillation, - left cerebellar infarct -Medical debility. -Large left adrenal mass likely adenoma -Moderate cognitive impairment from likely vascular dementia and multi-infarct dementia- -Legal guardian: [facility]. Mckenzie Prognosis guarded. Patient has continued to do poorly. CODE STATUS should be addressed with legal guardian again. Also patient will be appropriate for hospice given her protracted failing health. Left a message at the guardian's office for Cmkenzie to page me tomorrow to discuss patient's case.
[2023-12-02 20:09] LABS: C Reactive Protein 14.5 mg/dL (<1.0)
[2023-12-02 20:18] LABS: Glucose,Whole Blood 158 mg/dL (70-110)
[2023-12-03 05:46] LABS: Glucose,Whole Blood 174 mg/dL (70-110)
[2023-12-03 11:15] LABS: Glucose,Whole Blood 174 mg/dL (70-110)
--- NOTE | 2023-12-03 15:38 | P.PN ---
Progress Note - Text Progress Note Date: 12/03/23 This 78,years old female with past medical history of Atrial Fibrillation , CVA/TIA, GI Bleed, Hyperlipidemia, no anticoagulation because of GI bleed, moderate cognitive impairment from vascular dementia. Attempted colonoscopy in 2021 showed a tortuous colon. Has known uterine adenocarcinoma. radiation treatment 2018. Then was lost to follow-up. Also supposed to followed up with radiation treatment at [facility]. Also had right- sided hydronephrosis in the past with right-sided ureteral stent. Admitted September 15/2024 with nausea vomiting abdominal pain. Found to have bowel obstruction was given NG tube to suction. 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 - underwent a robotic assisted decompression enterostomy with closure of small bowel and bypass proximal bowel to mid ileum. October 02 MRI of the brain showed acute/subacute CVA involving the left cerebellum. October 17 cholecystectomy. Patient was sent into the ER because of altered mental status. Patient herself not able to give much history. Denies any pain shortness of breath. Does not seem to be ambulatory. 11/26. Patient seen and examined. Patient is alert, not the best of historian. Does not look in acute distress 11/27. Patient seen and examined. Blood work done this morning showed WBC 16.4, hemoglobin 8.9, platelet count 136, sodium 130, potassium 3.2, BUN 53, creatinine 1.21. Patient continues to have poor appetite 11/28. Patient seen and examined. Patient went to [facility] overnight, had to be placed on Cardizem drip. Currently denies any palpitations. 11/29. Patient seen and examined. Heart rate is better controlled, cardiology increase of Cardizem to 60 mg 3 times daily. Denies any palpitations 11/30. Patient seen and examined. Currently sitting upright in the chair. States she feels better compared to yesterday December 01: Oral intake is poor. Tired. Does open eyes. Will answer occasional questions. Prognosis not good. Laying in bed today. Franklyn to the nurse. Poor oral intake. December 02: Patient delirious. Does answer some questions. Not able to comprehend. Met with Mckenzie patient's legal guardian. Explained that the patient has a very poor prognosis. Very appropriate for DNR and hospice. Patient has been going downhill for some time. Even patient started to choke on water now. Patient probably not a real good candidate for PEG tube feeding. Mckenzie the legal guardian will talk to her cutting supervisor and then take it from there. Active Medications Acetaminophen (Acetaminophen Tab 325 Mg Tab) 650 mg PO Q6HR PRN PRN Reason: Mild Pain or Fever > 100.5 Hydrocodone Bitart/Acetaminophen (Hydrocodone/Apap 5-325mg 1 Each Tab) 1 each PO Q6H [facility] Last Admin: 12/03/23 11:39 Dose: Not Given Aspirin (Aspirin 81 Mg) 81 mg PO DAILY [facility] Last Admin: 12/03/23 09:01 Dose: 81 mg Atorvastatin Calcium (Atorvastatin 20 Mg Tab) 20 mg PO HS [facility] Last Admin: 12/02/23 20:40 Dose: 20 mg Diltiazem HCl (Diltiazem Oral 60 Mg Tab) 60 mg PO TID [facility] Last Admin: 12/03/23 09:01 Dose: 60 mg Folic Acid (Folic Acid 1 Mg Tab) 1 mg PO DAILY [facility] Last Admin: 12/03/23 09:01 Dose: 1 mg Ampicillin Sodium/Sulbactam (Sodium 3 gm/ Sodium Chloride) 100 mls @ 200 mls/hr IVPB Q8HR [facility]; Protocol Last Admin: 12/03/23 09:01 Dose: 200 mls/hr Insulin Aspart (Insulin Aspart (Novolog) 100 Unit/Ml Vial) 0 unit SQ ACHS [facility]; Protocol Last Admin: 12/03/23 11:39 Dose: 1 unit Lidocaine (Lidocaine 4% Patch) 1 patch TOPICAL DAILY [facility]; Protocol Last Admin: 12/03/23 09:00 Dose: 1 patch Metoprolol Tartrate (Metoprolol Tartrate 50 Mg Tab) 100 mg PO BID [facility] Last Admin: 12/03/23 09:01 Dose: 100 mg Naloxone HCl (Naloxone 0.4 Mg/Ml 1 Ml Vial) 0.2 mg IV Q2M PRN PRN Reason: Opioid Reversal Social history: at [facility]. Started smoking at the age of 13 stopped in 2011. 1 pack a day. No alcohol. Physical examination: VITAL SIGNS: 97.4, 52, 17, 104/80, 91% on 3 L GENERAL: Reclining in bed, lethargic but arousable. Delirious. EYES: Pupils equal. Conjunctiva normal. HEENT: External appearance of nose and ears normal, oral cavity-dry mucous membrane NECK: JVD not raised; masses not palpable. HEART: Heart sounds irregular; no edema. LUNGS: Respiratory rate increased, decreased breath sounds ABDOMEN: Soft, non-tender, liver spleen not palpable, no masses palpable. Crockett catheter: PSYCH: Answer simple questions. Not really able to comprehend. MUSCULOSKELETAL:No Clubbing/cyanosis;muscles-grossly intact. OA. Loss of muscle mass INVESTIGATIONS, reviewed in the clinical context: December 09: White count 9.3 hemoglobin 8.7 platelets 114 potassium 4.3 BUN 62 creatinine 1.42 Assessment and plan: -Acute metabolic encephalopathy, with delirium: Worsening -Acute UTI with cystitis, from Enterococcus faecalis IV Unasyn -Chronic radiation cystitis. -History of small bowel obstruction leading to surgery.by Dr. Blood on September 24, 2023. Robotic-assisted da Radha Xi laparoscopic decompressive enterostomy with closure small bowel, proximal ileum. Robotic-assisted da Radha Xi laparoscopic small bowel external bypass proximal ileum to mid ileum - tortuous colon with a prior history of unsuccessful colonoscopy -Severe colonic diverticulosis -Severe protein calorie malnutrition from poor oral intake Albumin 2.3 -History of vaginal bleeding in a patient with known uterine adenocarcinoma. - radiation treatment 2018. Apparently patient was lost to follow-up. -Chronic kidney disease stage IIIb likely nephrosclerosis -Chronic congestive heart failure from diastolic dysfunction EF 50 to 55% % -Moderate mitral and tricuspid regurgitation. -CAD with a history of stent -Right hydronephrosis, with a right ureteral stent. Possibly of 2 years duration. Possibly placed at [facility] -Persistent atrial fibrillation, - left cerebellar infarct -Medical debility. -Large left adrenal mass likely adenoma -Moderate cognitive impairment from likely vascular dementia and multi-infarct dementia- -Full code -Legal guardian: [facility]. Mckenize Advance care planning [December 03, 2023] This was carried out the bedside with legal guardian Mckenzie. Overall care was discussed in detail. Patient's poor prognosis was discussed. Patient is barely eating. Delirium and encephalopathy. Appropriateness of DNR and possible hospice. Mckenzie will take this back to her cutting supervisor came at the court and will have to present the case to the bankruptcy judge. In the meantime continue current treatment plan. Time spent about 25 minutes
[2023-12-03 16:12] LABS: Glucose,Whole Blood 165 mg/dL (70-110)
--- NOTE | 2023-12-03 17:26 | P.PN ---
Subjective Progress Note Date: 12/02/23 Principal diagnosis: Reason for follow-up is Enterococcus urinary tract infection and leukocytosis Patient is a 78-year female with a past medical history significant fo r atrial fibrillation CVA TIA hyperlipidemia [place] brought into the hospital concerning for mental status changes patient did have a positive UA elevated white count concerning for urinary tract infection. On today's evaluation that is 12/02/2023, Patient is afebrile, patient is breathing comfortably currently on 4 L current oxygen patient is slightly sleepy but arousable elevated good historian no vomiting or diarrhea has been reported. Patient white count is down to 11.3, creatinine is 1.42 Objective - Vital Signs Vital signs: Vital Signs Temp 96.8 F L 12/02/23 12:48 Pulse 81 12/02/23 12:48 Resp 20 12/02/23 12:48 BP 128/82 12/02/23 12:48 Pulse Ox 96 12/02/23 12:48 FiO2 Intake & Output 12/01/23 12/02/23 12/02/23 18:59 06:59 18:59 Intake Total 155 0 35 Output Total 500 200 Balance -345 -200 35 Intake: IV 10 10 Invasive Line 8 10 Invasive Line 9 10 Oral 145 0 25 Output: Urine 500 200 Other: Voiding Method Indwelling Catheter Indwelling Catheter Indwelling Catheter # Bowel Movements 0 - Exam GENERAL DESCRIPTION: An elderly female lying in bed in no distress RESPIRATORY SYSTEM: Unlabored breathing , decreased breath sounds at bases HEART: S1 S2 regular rate and rhythm , ABDOMEN: Soft , no tenderness EXTREMITIES: No edema feet - Labs CBC & Chem 7: 12/02/23 08:21 12/02/23 08:21 Labs: Abnormal Lab Results - Last 24 Hours (Table) 12/01/23 12/01/23 12/02/23 Range/Units 16:33 20:15 05:56 WBC (3.8-10.6) k/uL RBC (3.80-5.40) m/uL Hgb (11.4-16.0) gm/dL Hct (34.0-46.0) % MCV (80.0-100.0) fL MCHC (31.0-37.0) g/dL RDW (11.5-15.5) % Plt Count (150-450) k/uL Neutrophils # (1.3-7.7) k/uL Lymphocytes # (1.0-4.8) k/uL Chloride (98-107) mmol/L BUN (7-17) mg/dL Creatinine (0.52-1.04) mg/dL Glucose (74-99) mg/dL POC Glucose (mg/dL) 182 H 172 H 181 H (70-110) mg/dL Total Protein (6.3-8.2) g/dL Albumin (3.5-5.0) g/dL 12/02/23 12/02/23 12/02/23 Range/Units 08:21 08:21 11:34 WBC 11.3 H (3.8-10.6) k/uL RBC 2.94 L (3.80-5.40) m/uL Hgb 8.7 L (11.4-16.0) gm/dL Hct 30.7 L (34.0-46.0) % MCV 104.1 H (80.0-100.0) fL MCHC 28.5 L (31.0-37.0) g/dL RDW 16.3 H (11.5-15.5) % Plt Count 114 L (150-450) k/uL Neutrophils # 9.9 H (1.3-7.7) k/uL Lymphocytes # 0.9 L (1.0-4.8) k/uL Chloride 111 H (98-107) mmol/L BUN 62 H (7-17) mg/dL Creatinine 1.42 H (0.52-1.04) mg/dL Glucose 145 H (74-99) mg/dL POC Glucose (mg/dL) 220 H (70-110) mg/dL Total Protein 5.2 L (6.3-8.2) g/dL Albumin 2.3 L (3.5-5.0) g/dL Assessment and Plan (1) UTI (urinary tract infection) Current Visit: Yes Status: Acute Code(s): N39.0 - URINARY TRACT INFECTION, SITE NOT SPECIFIED SNOMED Code(s): 21084609 (2) Leukocytosis Current Visit: No Status: Acute Code(s): D72.829 - ELEVATED WHITE BLOOD CELL COUNT, UNSPECIFIED SNOMED Code(s): 589652672 Plan: 1patient present to hospital mental status changes likely multifactorial in this patient also noticed to have significant elevated white count source likely UTI and also have a component of large effusion questionably cardiac etiology as not behaving as pneumonia or empyema. 2urine culture now growing Enterococcus that is sensitive to ampicillin 3patient is afebrile white count is almost normalized down to 11.3 today, patient continue with Unasyn and monitor clinical course closely Dictation was produced using [employer] dictation software. please excuse any g rammatical, word or spelling errors. Time with Patient: Less than 30
--- NOTE | 2023-12-03 17:26 | P.PN ---
Subjective Progress Note Date: 12/03/23 Principal diagnosis: Reason for follow-up is Enterococcus urinary tract infection and leukocytosis Patient is a 78-year female with a past medical history significant fo r atrial fibrillation CVA TIA hyperlipidemia [place] brought into the hospital concerning for mental status changes patient did have a positive UA elevated white count concerning for urinary tract infection. On today's evaluation that is 12/03/2023,the patient continues to be afebrile patient is breathing comfortably on 3 L current oxygen patient is sleepy but arousable did not answer any question no vomiting diarrhea or any change reported by nursing staff. No new labs has been repeated today Objective - Vital Signs Vital signs: Vital Signs Temp 97.4 F L 12/03/23 09:00 Pulse 52 L 12/03/23 14:00 Resp 17 12/03/23 11:35 BP 104/80 12/03/23 11:35 Pulse Ox 91 L 12/03/23 11:35 FiO2 Intake & Output 12/02/23 12/03/23 12/03/23 18:59 06:59 18:59 Intake Total 271 240 Output Total 200 150 Balance 71 90 Weight 64.41 kg Intake: IV 10 Invasive Line 9 10 Oral 261 240 Output: Urine 200 150 Other: Voiding Method Indwelling Catheter Indwelling Catheter Indwelling Catheter - Exam GENERAL DESCRIPTION: An elderly female lying in bed in no distress RESPIRATORY SYSTEM: Unlabored breathing , decreased breath sounds at bases HEART: S1 S2 regular rate and rhythm , ABDOMEN: Soft , no tenderness EXTREMITIES: No edema feet - Labs CBC & Chem 7: 12/02/23 08:21 12/02/23 08:21 Labs: Abnormal Lab Results - Last 24 Hours (Table) 12/02/23 12/02/23 12/02/23 Range/Units 08:21 16:10 20:16 POC Glucose (mg/dL) 284 H 158 H (70-110) mg/dL C-Reactive Protein 14.5 H (<1.0) mg/dL 12/03/23 12/03/23 12/03/23 Range/Units 05:44 11:14 16:11 POC Glucose (mg/dL) 174 H 174 H 165 H (70-110) mg/dL C-Reactive Protein (<1.0) mg/dL Assessment and Plan (1) UTI (urinary tract infection) Current Visit: Yes Status: Acute Code(s): N39.0 - URINARY TRACT INFECTION, SITE NOT SPECIFIED SNOMED Code(s): 17161860 (2) Leukocytosis Current Visit: No Status: Acute Code(s): D72.829 - ELEVATED WHITE BLOOD CELL COUNT, UNSPECIFIED SNOMED Code(s): 031589345 Plan: 1patient present to hospital mental status changes likely multifactorial in th is patient also noticed to have significant elevated white count source likely UTI and also have a component of large effusion questionably cardiac etiology as not behaving as pneumonia or empyema. 2urine culture now growing Enterococcus that is sensitive to ampicillin 3patient is afebrile white count was down to 11.3 as of yesterday no CBC done today continue with the Unasyn while inpatient Dictation was produced using [email or web address] dictation software. please excuse any grammatical, word or spelling errors. Time with Patient: Less than 30
[2023-12-03 20:05] LABS: Glucose,Whole Blood 155 mg/dL (70-110)
[2023-12-04 01:55] LABS: Glucose,Whole Blood 150 mg/dL (70-110)
[2023-12-04 06:02] LABS: Glucose,Whole Blood 146 mg/dL (70-110)
[2023-12-04 11:43] LABS: Glucose,Whole Blood 225 mg/dL (70-110)
--- NOTE | 2023-12-04 14:52 | P.PN ---
Progress Note - Text Progress Note Date: 12/04/23 This 78,years old female with past medical history of Atrial Fibrillation , CVA/TIA, GI Bleed, Hyperlipidemia, no anticoagulation because of GI bleed, moderate cognitive impairment from vascular dementia. Attempted colonoscopy in 2021 showed a tortuous colon. Has known uterine adenocarcinoma. radiation treatment 2018. Then was lost to follow-up. Also supposed to followed up with radiation treatment at [facility]. Also had right- sided hydronephrosis in the past with right-sided ureteral stent. Admitted September 15/2024 with nausea vomiting abdominal pain. Found to have bowel obstruction was given NG tube to suction. 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 - underwent a robotic assisted decompression enterostomy with closure of small bowel and bypass proximal bowel to mid ileum. October 02 MRI of the brain showed acute/subacute CVA involving the left cerebellum. October 17 cholecystectomy. Patient was sent into the ER because of altered mental status. Patient herself not able to give much history. Denies any pain shortness of breath. Does not seem to be ambulatory. 11/26. Patient seen and examined. Patient is alert, not the best of historian. Does not look in acute distress 11/27. Patient seen and examined. Blood work done this morning showed WBC 16.4, hemoglobin 8.9, platelet count 136, sodium 130, potassium 3.2, BUN 53, creatinine 1.21. Patient continues to have poor appetite 11/28. Patient seen and examined. [facility], had to be placed on Cardizem drip. Currently denies any palpitations. 11/29. Patient seen and examined. Heart rate is better controlled, cardiology increase of Cardizem to 60 mg 3 times daily. Denies any palpitations 11/30. Patient seen and examined. Currently sitting upright in the chair. States she feels better compared to yesterday December 01: Oral intake is poor. Tired. Does open eyes. Will answer occasional questions. Prognosis not good. Laying in bed today. Franklyn to the nurse. Poor oral intake. December 02: Patient delirious. Does answer some questions. Not able to comprehend. Met with Mckenzie patient's legal guardian. Explained that the patient has a very poor prognosis. Very appropriate for DNR and hospice. Patient has been going downhill for some time. Even patient started to choke on water now. Patient probably not a real good candidate for PEG tube feeding. Mckenzie the legal guardian will talk to her supervisor residential and then take it from there. December 03: Remains delirious and encephalopathic. Trouble with oral intake. Awaiting input from legal guardian through the court about CODE STATUS. IV Unas yn. Not eating Active Medications Acetaminophen (Acetaminophen Tab 325 Mg Tab) 650 mg PO Q6HR PRN PRN Reason: Mild Pain or Fever > 100.5 Hydrocodone Bitart/Acetaminophen (Hydrocodone/Apap 5-325mg 1 Each Tab) 1 each PO Q6H [facility] Last Admin: 12/04/23 11:01 Dose: 1 each Aspirin (Aspirin 81 Mg) 81 mg PO DAILY [facility] Last Admin: 12/04/23 08:27 Dose: 81 mg Atorvastatin Calcium (Atorvastatin 20 Mg Tab) 20 mg PO HS [facility] Last Admin: 12/03/23 20:27 Dose: 20 mg Diltiazem HCl (Diltiazem Oral 60 Mg Tab) 60 mg PO TID [facility] Last Admin: 12/04/23 08:27 Dose: 60 mg Folic Acid (Folic Acid 1 Mg Tab) 1 mg PO DAILY [facility] Last Admin: 12/04/23 08:27 Dose: 1 mg Ampicillin Sodium/Sulbactam (Sodium 3 gm/ Sodium Chloride) 100 mls @ 200 mls/hr IVPB Q8HR [facility]; Protocol Last Admin: 12/04/23 08:27 Dose: 200 mls/hr Insulin Aspart (Insulin Aspart (Novolog) 100 Unit/Ml Vial) 0 unit SQ ACHS [facility]; Protocol Last Admin: 12/04/23 12:42 Dose: 2 unit Lidocaine (Lidocaine 4% Patch) 1 patch TOPICAL DAILY [facility]; Protocol Last Admin: 12/04/23 08:27 Dose: 1 patch Metoprolol Tartrate (Metoprolol Tartrate 50 Mg Tab) 100 mg PO BID [facility] Last Admin: 12/04/23 08:27 Dose: 100 mg Naloxone HCl (Naloxone 0.4 Mg/Ml 1 Ml Vial) 0.2 mg IV Q2M PRN PRN Reason: Opioid Reversal Social history: at [facility]. Started smoking at the age of 13 stopped in 2011. 1 pack a day. No alcohol. Physical examination: VITAL SIGNS: 97.5, 92, 18, 110 x 60, 97% on 3 L trach GENERAL: Reclining in bed, lethargic, just about. Delirious. EYES: Pupils equal. Conjunctiva normal. HEENT: External appearance of nose and ears normal, oral cavity-dry mucous membrane NECK: JVD not raised; masses not palpable. HEART: Heart sounds irregular; no edema. LUNGS: Respiratory rate increased, decreased breath sounds ABDOMEN: Soft, non-tender, liver spleen not palpable, no masses palpable. Crockett catheter: PSYCH: Lethargic MUSCULOSKELETAL:No Clubbing/cyanosis;muscles-grossly intact. OA. Loss of muscle mass INVESTIGATIONS, reviewed in the clinical context: December 09: White count 9.3 hemoglobin 8.7 platelets 114 potassium 4.3 BUN 62 creatinine 1.42 Assessment and plan: -Acute metabolic encephalopathy, with delirium: Worsening -Acute UTI with cystitis, from Enterococcus faecalis IV Unasyn -Chronic radiation cystitis. -History of small bowel obstruction leading to surgery.by Dr. Blood on September 24, 2023. Robotic-assisted da Radha Xi laparoscopic decompressive enterostomy with closure small bowel, proximal ileum. Robotic-assisted da Radha Xi laparoscopic small bowel external bypass proximal ileum to mid ileum - tortuous colon with a prior history of unsuccessful colonoscopy -Severe colonic diverticulosis -Severe protein calorie malnutrition from poor oral intake Albumin 2.3 -History of vaginal bleeding in a patient with known uterine adenocarcinoma. - radiation treatment 2018. Apparently patient was lost to follow-up. -Chronic kidney disease stage IIIb likely nephrosclerosis -Chronic congestive heart failure from diastolic dysfunction EF 50 to 55% % -Moderate mitral and tricuspid regurgitation. -CAD with a history of stent -Right hydronephrosis, with a right ureteral stent. Possibly of 2 years duration. Possibly placed at [facility] -Persistent atrial fibrillation, - left cerebellar infarct -Medical debility. -Large left adrenal mass likely adenoma -Moderate cognitive impairment from likely vascular dementia and multi-infarct dementia- -Full code -Legal guardian: [facility]. Mckenzie Advance care planning [December 03, 2023] This was carried out the bedside with legal guardian Mckenzie. Overall care was discussed in detail. Patient's poor prognosis was discussed. Patient is barely eating. Delirium and encephalopathy. Appropriateness of DNR and possible hospice. Mckenzie will take this back to her supervisor residential came at the court and will have to present the case to the portable canteen operator. In the meantime continue current treatment plan. Time spent about 25 minutes Patient doing poorly. DNR/hospice will be appropriate
[2023-12-04 16:29] LABS: Glucose,Whole Blood 245 mg/dL (70-110)
--- NOTE | 2023-12-04 16:32 | P.PN ---
Subjective Progress Note Date: 12/04/23 Principal diagnosis: Reason for follow-up is Enterococcus urinary tract infection and leukocytosis Patient is a 78-year female with a past medical history significant fo r atrial fibrillation CVA TIA hyperlipidemia [place] brought into the hospital concerning for mental status changes patient did have a positive UA elevated white count concerning for urinary tract infection. On today's evaluation that is 12/04/2023,the patient remains to be afebrile, patient is on r 3 L nasal cannula supplemental oxygen and denies any shortness of breath no chest pain or cough.Patient is allergic denies any nausea vomiting and no diarrhea has been reported. No new labs has been obtained today's Objective - Vital Signs Vital signs: Vital Signs Temp 97.5 F L 12/04/23 08:20 Pulse 92 12/04/23 11:10 Resp 18 12/04/23 11:10 BP 110/60 12/04/23 11:10 Pulse Ox 97 12/04/23 11:10 FiO2 Intake & Output 12/03/23 12/04/23 12/04/23 18:59 06:59 18:59 Output Total 300 Balance -300 Output: Urine 300 Other: Voiding Method Indwelling Catheter Indwelling Catheter Indwelling Catheter - Exam GENERAL DESCRIPTION: An elderly female lying in bed in no distress RESPIRATORY SYSTEM: Unlabored breathing , decreased breath sounds at bases HEART: S1 S2 regular rate and rhythm , ABDOMEN: Soft , no tenderness EXTREMITIES: No edema feet - Labs CBC & Chem 7: 12/02/23 08:21 12/02/23 08:21 Labs: Abnormal Lab Results - Last 24 Hours (Table) 12/03/23 12/04/23 12/04/23 Range/Units 20:02 01:51 05:54 POC Glucose (mg/dL) 155 H 150 H 146 H (70-110) mg/dL 12/04/23 12/04/23 Range/Units 11:40 16:28 POC Glucose (mg/dL) 225 H 245 H (70-110) mg/dL Assessment and Plan (1) UTI (urinary tract infection) Current Visit: Yes Status: Acute Code(s): N39.0 - URINARY TRACT INFECTION, SITE NOT SPECIFIED SNOMED Code(s): 40179316 (2) Leukocytosis Current Visit: No Status: Acute Code(s): D72.829 - ELEVATED WHITE BLOOD CELL COUNT, UNSPECIFIED SNOMED Code(s): 274329819 Plan: 1patient present to hospital mental status changes likely multifactorial in this patient also noticed to have significant elevated white count source likely UTI and also have a component of large effusion questionably cardiac etiology as not behaving as pneumonia or empyema. 2urine culture now growing Enterococcus that is sensitive to ampicillin 3patient is afebrile white count was down to 11.3 as of 12/02/2023 patient is covered with Unasyn to continue antibiotic clinical course closely Dictation was produced using [employer] dictation software. please excuse any grammatical, word or spelling errors. Time with Patient: Less than 30
[2023-12-04 20:05] LABS: Glucose,Whole Blood 208 mg/dL (70-110)
[2023-12-04] MEDS: LORazepam 2 MG/ML INJ IV PRN (23:43)
[2023-12-05 02:20] LABS: Glucose,Whole Blood 187 mg/dL (70-110)
[2023-12-05 05:55] LABS: Glucose,Whole Blood 194 mg/dL (70-110)
[2023-12-05 11:31] LABS: Glucose,Whole Blood 170 mg/dL (70-110)
[2023-12-05 16:20] LABS: Glucose,Whole Blood 141 mg/dL (70-110)
--- NOTE | 2023-12-05 17:49 | P.PN ---
Progress Note - Text Progress Note Date: 12/05/23 This 78,years old female with past medical history of Atrial Fibrillation , CVA/TIA, GI Bleed, Hyperlipidemia, no anticoagulation because of GI bleed, moderate cognitive impairment from vascular dementia. Attempted colonoscopy in 2021 showed a tortuous colon. Has known uterine adenocarcinoma. radiation treatment 2018. Then was lost to follow-up. Also supposed to followed up with radiation treatment at [facility]. Also had right- sided hydronephrosis in the past with right-sided ureteral stent. Admitted September 15/2024 with nausea vomiting abdominal pain. Found to have bowel obstruction was given NG tube to suction. 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 - underwent a robotic assisted decompression enterostomy with closure of small bowel and bypass proximal bowel to mid ileum. October 02 MRI of the brain showed acute/subacute CVA involving the left cerebellum. October 17 cholecystectomy. Patient was sent into the ER because of altered mental status. Patient herself not able to give much history. Denies any pain shortness of breath. Does not seem to be ambulatory. 11/26. Patient seen and examined. Patient is alert, not the best of historian. Does not look in acute distress 11/27. Patient seen and examined. Blood work done this morning showed WBC 16.4, hemoglobin 8.9, platelet count 136, sodium 130, potassium 3.2, BUN 53, creatinine 1.21. Patient continues to have poor appetite 11/28. Patient seen and examined. Patient [facility], had to be placed on Cardizem drip. Currently denies any palpitations. 11/29. Patient seen and examined. Heart rate is better controlled, cardiology increase of Cardizem to 60 mg 3 times daily. Denies any palpitations 11/30. Patient seen and examined. Currently sitting upright in the chair. States she feels better compared to yesterday December 01: Oral intake is poor. Tired. Does open eyes. Will answer occasional questions. Prognosis not good. Laying in bed today. Franklyn to the nurse. Poor oral intake. December 02: Patient delirious. Does answer some questions. Not able to comprehend. Met with Mckenzie patient's legal guardian. Explained that the patient has a very poor prognosis. Very appropriate for DNR and hospice. Patient has been going downhill for some time. Even patient started to choke on water now. Patient probably not a real good candidate for PEG tube feeding. Mckenzie the legal guardian will talk to her supervisor ac[employer] and then take it from there. December 03: Remains delirious and encephalopathic. Trouble with oral intake. Awaiting input from legal guardian through the court about CODE STATUS. IV Unas yn. Not eating December 04: Remains rather lethargic. Arousable. Will occasionally speak a word or 2. Eating very small amounts intermittently. Active Medications Acetaminophen (Acetaminophen Tab 325 Mg Tab) 650 mg PO Q6HR PRN PRN Reason: Mild Pain or Fever > 100.5 Hydrocodone Bitart/Acetaminophen (Hydrocodone/Apap 5-325mg 1 Each Tab) 1 each PO Q6H [facility] Last Admin: 12/05/23 15:58 Dose: 1 each Aspirin (Aspirin 81 Mg) 81 mg PO DAILY [facility] Last Admin: 12/05/23 08:30 Dose: 81 mg Atorvastatin Calcium (Atorvastatin 20 Mg Tab) 20 mg PO HS [facility] Last Admin: 12/04/23 20:07 Dose: 20 mg Diltiazem HCl (Diltiazem Oral 60 Mg Tab) 60 mg PO TID [facility] Last Admin: 12/05/23 15:58 Dose: 60 mg Folic Acid (Folic Acid 1 Mg Tab) 1 mg PO DAILY [facility] Last Admin: 12/05/23 08:30 Dose: 1 mg Insulin Aspart (Insulin Aspart (Novolog) 100 Unit/Ml Vial) 0 unit SQ ACHS [facility]; Protocol Last Admin: 12/05/23 17:10 Dose: Not Given Lidocaine (Lidocaine 4% Patch) 1 patch TOPICAL DAILY [facility]; Protocol Last Admin: 12/05/23 08:30 Dose: 1 patch Lorazepam (Lorazepam 2 Mg/Ml Inj) 1 mg IV Q6HR PRN PRN Reason: Anxiety Last Admin: 12/04/23 23:43 Dose: 1 mg Metoprolol Tartrate (Metoprolol Tartrate 50 Mg Tab) 100 mg PO BID [facility] Last Admin: 12/05/23 08:30 Dose: 100 mg Naloxone HCl (Naloxone 0.4 Mg/Ml 1 Ml Vial) 0.2 mg IV Q2M PRN PRN Reason: Opioid Reversal Social history: at [facility]. Started smoking at the age of 13 stopped in 2011. 1 pack a day. No alcohol. Physical examination: VITAL SIGNS: 97.5, 92, 18, 110 x 60, 97% on 3 L trach GENERAL: Lethargic just about arousable EYES: Pupils equal. Conjunctiva normal. HEENT: External appearance of nose and ears normal, oral cavity-dry mucous membrane NECK: JVD not raised; masses not palpable. HEART: Heart sounds irregular; no edema. LUNGS: Respiratory rate increased, decreased breath sounds ABDOMEN: Soft, non-tender, liver spleen not palpable, no masses palpable. Crockett catheter: PSYCH: Lethargic but will speak avoided to MUSCULOSKELETAL:No Clubbing/cyanosis;muscles-grossly intact. OA. Loss of muscle mass INVESTIGATIONS, reviewed in the clinical context: December 09: White count 9.3 hemoglobin 8.7 platelets 114 potassium 4.3 BUN 62 creatinine 1.42 Assessment and plan: -Acute metabolic encephalopathy, with delirium: Not improving -Acute UTI with cystitis, from Enterococcus faecalis IV Unasyn per ID -Chronic radiation cystitis. -History of small bowel obstruction leading to surgery.by Dr. Blood on September 24, 2023. Robotic-assisted da Radha Xi laparoscopic decompressive enterostomy with closure small bowel, proximal ileum. Robotic-assisted da Radha Xi laparoscopic small bowel external bypass proximal ileum to mid ileum - tortuous colon with a prior history of unsuccessful colonoscopy -Severe colonic diverticulosis -Severe protein calorie malnutrition from poor oral intake Albumin 2.3 -History of vaginal bleeding in a patient with known uterine adenocarcinoma. - radiation treatment 2018. Apparently patient was lost to follow-up. -Chronic kidney disease stage IIIb likely nephrosclerosis -Chronic congestive heart failure from diastolic dysfunction EF 50 to 55% % -Moderate mitral and tricuspid regurgitation. -CAD with a history of stent -Right hydronephrosis, with a right ureteral stent. Possibly of 2 years duration. Possibly placed at [facility] -Persistent atrial fibrillation, - left cerebellar infarct -Medical debility. -Large left adrenal mass likely adenoma -Moderate cognitive impairment from likely vascular dementia and multi-infarct dementia- -Full code -Legal [facility]: [facility]. Mckenzie Advance care planning [December 03, 2023] This was carried out the bedside with legal guardian Mckenzie. Overall care was discussed in detail. Patient's poor prognosis was discussed. Patient is barely eating. Delirium and encephalopathy. Appropriateness of DNR and possible hospice. Mckenzie will take this back to her supervisor ac[employer] came at the court and will have to present the case to the safe technician. In the meantime continue current treatment plan. Time spent about 25 minutes Continues to do poorly. Will be appropriate for DNR hospice. Await input from legal guardian.
[2023-12-05 19:38] LABS: Glucose,Whole Blood 172 mg/dL (70-110)
--- NOTE | 2023-12-05 22:41 | P.PN ---
Subjective Progress Note Date: 12/05/23 Principal diagnosis: Reason for follow-up is Enterococcus urinary tract infection and leukocytosis Patient is a 78-year female with a past medical history significant fo r atrial fibrillation CVA TIA hyperlipidemia [place] brought into the hospital concerning for mental status changes patient did have a positive UA elevated white count concerning for urinary tract infection. On today's evaluation that is 12/05/2023, the patient continues to be afebrile, the patient is on 3 L current oxygen r and breathing comfortably, the Pt slightly more awake and alert today denies having any chest pain or cough, the patient denies having any abdominal pain no vomiting or any diarrhea has been reported by the nursing staff. No new labs has been obtained today Objective - Vital Signs Vital signs: Vital Signs Temp 97.5 F L 12/05/23 08:30 Pulse 104 H 12/05/23 08:30 Resp 17 12/05/23 08:30 BP 136/84 12/05/23 08:30 Pulse Ox 100 12/05/23 08:30 FiO2 Intake & Output 12/04/23 12/05/23 12/05/23 18:59 06:59 18:59 Intake Total 358 Output Total 700 175 Balance -342 -175 Intake: Oral 358 Output: Urine 700 175 Other: Voiding Method Indwelling Catheter Indwelling Catheter Indwelling Catheter - Exam GENERAL DESCRIPTION: An elderly female lying in bed in no distress RESPIRATORY SYSTEM: Unlabored breathing , decreased breath sounds at bases HEART: S1 S2 regular rate and rhythm , ABDOMEN: Soft , no tenderness EXTREMITIES: No edema feet - Labs CBC & Chem 7: 12/02/23 08:21 12/02/23 08:21 Labs: Abnormal Lab Results - Last 24 Hours (Table) 12/04/23 12/04/23 12/05/23 Range/Units 16:28 20:04 02:09 POC Glucose (mg/dL) 245 H 208 H 187 H (70-110) mg/dL 12/05/23 12/05/23 Range/Units 05:53 11:29 POC Glucose (mg/dL) 194 H 170 H (70-110) mg/dL Assessment and Plan (1) UTI (urinary tract infection) Current Visit: Yes Status: Acute Code(s): N39.0 - URINARY TRACT INFECTION, SITE NOT SPECIFIED SNOMED Code(s): 98640413 (2) Leukocytosis Current Visit: No Status: Acute Code(s): D72.829 - ELEVATED WHITE BLOOD CELL COUNT, UNSPECIFIED SNOMED Code(s): 235120296 Plan: 1patient present to hospital mental status changes likely multifactorial in this patient also noticed to have significant elevated white count source likely UTI and also have a component of large effusion questionably cardiac etiology as not behaving as pneumonia or empyema. 2urine culture now growing Enterococcus that is sensitive to ampicillin 3patient is afebrile white count was down to 11.3 as of 12/02/2023, no CBC has been done today patient to continue with Unasyn while inpatient however the patient received about 10 days of antibiotics and antibiotics can be safely discontinued Dictation was produced using [employer] dictation software. please excuse any grammatical, word or spelling errors. Time with Patient: Less than 30
[2023-12-06 02:18] LABS: Glucose,Whole Blood 138 mg/dL (70-110)
[2023-12-06 06:15] LABS: Glucose,Whole Blood 155 mg/dL (70-110)
--- NOTE | 2023-12-06 16:02 | P.PN ---
Progress Note - Text Progress Note Date: 12/06/23 This 78,years old female with past medical history of Atrial Fibrillation , CVA/TIA, GI Bleed, Hyperlipidemia, no anticoagulation because of GI bleed, moderate cognitive impairment from vascular dementia. Attempted colonoscopy in 2021 showed a tortuous colon. Has known uterine adenocarcinoma. radiation treatment 2018. Then was lost to follow-up. Also supposed to followed up with radiation treatment at [facility]. Also had right- sided hydronephrosis in the past with right-sided ureteral stent. Admitted September 15/2024 with nausea vomiting abdominal pain. Found to have bowel obstruction was given NG tube to suction. 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 - underwent a robotic assisted decompression enterostomy with closure of small bowel and bypass proximal bowel to mid ileum. October 02 MRI of the brain showed acute/subacute CVA involving the left cerebellum. October 17 cholecystectomy. Patient was sent into the ER because of altered mental status. Patient herself not able to give much history. Denies any pain shortness of breath. Does not seem to be ambulatory. 11/26. Patient seen and examined. Patient is alert, not the best of historian. Does not look in acute distress 11/27. Patient seen and examined. Blood work done this morning showed WBC 16.4, hemoglobin 8.9, platelet count 136, sodium 130, potassium 3.2, BUN 53, creatinine 1.21. Patient continues to have poor appetite 11/28. Patient seen and examined. Patient went to [facility] overnight, had to be placed on Cardizem drip. Currently denies any palpitations. 11/29. Patient seen and examined. Heart rate is better controlled, cardiology increase of Cardizem to 60 mg 3 times daily. Denies any palpitations 11/30. Patient seen and examined. Currently sitting upright in the chair. States she feels better compared to yesterday December 01: Oral intake is poor. Tired. Does open eyes. Will answer occasional questions. Prognosis not good. Laying in bed today. Franklyn to the nurse. Poor oral intake. December 02: Patient delirious. Does answer some questions. Not able to comprehend. Met with Mckenzie patient's legal guardian. Explained that the patient has a very poor prognosis. Very appropriate for DNR and hospice. Patient has been going downhill for some time. Even patient started to choke on water now. Patient probably not a real good candidate for PEG tube feeding. Mckenzie the legal guardian will talk to her underground supervisor and then take it from there. December 03: Remains delirious and encephalopathic. Trouble with oral intake. Awaiting input from legal guardian through the court about CODE STATUS. IV Unas yn. Not eating December 04: Remains rather lethargic. Arousable. Will occasionally speak a word or 2. Eating very small amounts intermittently. December 05 patient lethargic delirious. Does wake up to see a word or 2. Intermittently eating small amounts. Awaiting court to decide about CODE STATUS/hospice. Active Medications Acetaminophen (Acetaminophen Tab 325 Mg Tab) 650 mg PO Q6HR PRN PRN Reason: Mild Pain or Fever > 100.5 Hydrocodone Bitart/Acetaminophen (Hydrocodone/Apap 5-325mg 1 Each Tab) 1 each PO Q6H [facility] Last Admin: 12/06/23 09:57 Dose: 1 each Aspirin (Aspirin 81 Mg) 81 mg PO DAILY [facility] Last Admin: 12/06/23 09:12 Dose: 81 mg Atorvastatin Calcium (Atorvastatin 20 Mg Tab) 20 mg PO HS [facility] Last Admin: 12/05/23 20:31 Dose: 20 mg Diltiazem HCl (Diltiazem Oral 60 Mg Tab) 60 mg PO TID [facility] Last Admin: 12/06/23 09:11 Dose: 60 mg Folic Acid (Folic Acid 1 Mg Tab) 1 mg PO DAILY [facility] Last Admin: 12/06/23 09:11 Dose: 1 mg Insulin Aspart (Insulin Aspart (Novolog) 100 Unit/Ml Vial) 0 unit SQ ACHS [facility]; Protocol Last Admin: 12/06/23 06:22 Dose: 1 unit Lidocaine (Lidocaine 4% Patch) 1 patch TOPICAL DAILY [facility]; Protocol Last Admin: 12/06/23 09:12 Dose: 1 patch Lorazepam (Lorazepam 2 Mg/Ml Inj) 1 mg IV Q6HR PRN PRN Reason: Anxiety Last Admin: 12/06/23 12:29 Dose: 1 mg Metoprolol Tartrate (Metoprolol Tartrate 50 Mg Tab) 100 mg PO BID [facility] Last Admin: 12/06/23 09:11 Dose: 100 mg Naloxone HCl (Naloxone 0.4 Mg/Ml 1 Ml Vial) 0.2 mg IV Q2M PRN PRN Reason: Opioid Reversal Social history: at [facility]. Started smoking at the age of 13 stopped in 2011. 1 pack a day. No alcohol. Physical examination: VITAL SIGNS: 98.4, 102, 18, 120/76, 94% on 2 L GENERAL: Lethargic-some arousable EYES: Pupils equal. Conjunctiva normal. HEENT: External appearance of nose and ears normal, oral cavity-dry mucous membrane NECK: JVD not raised; masses not palpable. HEART: Heart sounds irregular; no edema. LUNGS: Respiratory rate increased, decreased breath sounds ABDOMEN: Soft, non-tender, liver spleen not palpable, no masses palpable. Crockett catheter: PSYCH: Lethargic, may say a word or 2 MUSCULOSKELETAL:No Clubbing/cyanosis;muscles-grossly intact. OA. Loss of muscle mass INVESTIGATIONS, reviewed in the clinical context: December 09: White count 9.3 hemoglobin 8.7 platelets 114 potassium 4.3 BUN 62 crea tinine 1.42 Assessment and plan: -Acute metabolic encephalopathy, with delirium: Not improving -Acute UTI with cystitis, from Enterococcus faecalis IV Unasyn-discontinued per ID -Chronic radiation cystitis. -History of small bowel obstruction leading to surgery.by Dr. Blood on September 24, 2023. Robotic-assisted da Radha Xi laparoscopic decompressive enterostomy with closure small bowel, proximal ileum. Robotic-assisted da Radha Xi laparoscopic small bowel external bypass proximal ileum to mid ileum - tortuous colon with a prior history of unsuccessful colonoscopy -Severe colonic diverticulosis -Severe protein calorie malnutrition from poor oral intake Albumin 2.3 -History of vaginal bleeding in a patient with known uterine adenocarcinoma. - radiation treatment 2018. Apparently patient was lost to follow-up. -Chronic kidney disease stage IIIb likely nephrosclerosis -Chronic congestive heart failure from diastolic dysfunction EF 50 to 55% % -Moderate mitral and tricuspid regurgitation. -CAD with a history of stent -Right hydronephrosis, with a right ureteral stent. Possibly of 2 years duration. Possibly placed at [facility] -Persistent atrial fibrillation, - left cerebellar infarct -Medical debility. -Large left adrenal mass likely adenoma -Moderate cognitive impairment from likely vascular dementia and multi-infarct dementia- -Full code -Legal guardian: [facility]. Mckenzie Advance care planning [December 03, 2023] This was carried out the bedside with legal guardian Mckenzie. Overall care was discussed in detail. Patient's poor prognosis was discussed. Patient is barely eating. Delirium and encephalopathy. Appropriateness of DNR and possible hospice. Mckenzie will take this back to her underground supervisor came at the court and will have to present the case to the svp [employer] at [employer]. In the meantime continue current treatment plan. Time spent about 25 minutes Await input from the court decision regarding DNR hospice which will be appropriate for this patient.
[2023-12-06 16:48] LABS: Glucose,Whole Blood 167 mg/dL (70-110)
[2023-12-06 20:25] LABS: Glucose,Whole Blood 182 mg/dL (70-110)
[2023-12-07 02:08] LABS: Glucose,Whole Blood 159 mg/dL (70-110)
[2023-12-07 06:44] LABS: Glucose,Whole Blood 163 mg/dL (70-110)
[2023-12-07 11:42] LABS: Glucose,Whole Blood 120 mg/dL (70-110)
--- NOTE | 2023-12-07 15:11 | P.PN ---
Progress Note - Text Progress Note Date: 12/07/23 This 78,years old female with past medical history of Atrial Fibrillation , CVA/TIA, GI Bleed, Hyperlipidemia, no anticoagulation because of GI bleed, moderate cognitive impairment from vascular dementia. Attempted colonoscopy in 2021 showed a tortuous colon. Has known uterine adenocarcinoma. radiation treatment 2018. Then was lost to follow-up. Also supposed to followed up with radiation treatment at [facility]. Also had right- sided hydronephrosis in the past with right-sided ureteral stent. Admitted September 15/2024 with nausea vomiting abdominal pain. Found to have bowel obstruction was given NG tube to suction. 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 - underwent a robotic assisted decompression enterostomy with closure of small bowel and bypass proximal bowel to mid ileum. October 02 MRI of the brain showed acute/subacute CVA involving the left cerebellum. October 17 cholecystectomy. Patient was sent into the ER because of altered mental status. Patient herself not able to give much history. Denies any pain shortness of breath. Does not seem to be ambulatory. 11/26. Patient seen and examined. Patient is alert, not the best of historian. Does not look in acute distress 11/27. Patient seen and examined. Blood work done this morning showed WBC 16.4, hemoglobin 8.9, platelet count 136, sodium 130, potassium 3.2, BUN 53, creatinine 1.21. Patient continues to have poor appetite 11/28. Patient seen and examined. [facility], had to be placed on Cardizem drip. Currently denies any palpitations. 11/29. Patient seen and examined. Heart rate is better controlled, cardiology increase of Cardizem to 60 mg 3 times daily. Denies any palpitations 11/30. Patient seen and examined. Currently sitting upright in the chair. States she feels better compared to yesterday December 01: Oral intake is poor. Tired. Does open eyes. Will answer occasional questions. Prognosis not good. Laying in bed today. Franklyn to the nurse. Poor oral intake. December 02: Patient delirious. Does answer some questions. Not able to comprehend. Met with Mckenzie patient's legal guardian. Explained that the patient has a very poor prognosis. Very appropriate for DNR and hospice. Patient has been going downhill for some time. Even patient started to choke on water now. Patient probably not a real good candidate for PEG tube feeding. Mckenzie the legal guardian will talk to her histology supervisor and then take it from there. December 03: Remains delirious and encephalopathic. Trouble with oral intake. Awaiting input from legal guardian through the court about CODE STATUS. IV Unas yn. Not eating December 04: Remains rather lethargic. Arousable. Will occasionally speak a word or 2. Eating very small amounts intermittently. December 05 patient lethargic delirious. Does wake up to see a word or 2. Intermittently eating small amounts. Awaiting court to decide about CODE STATUS/hospice. December 06: Patient continues to poorly. Lethargic delirious. Just about responsive. Ate a very small amount last night. Awaiting input from legal guardian code. At Active Medications Acetaminophen (Acetaminophen Tab 325 Mg Tab) 650 mg PO Q6HR PRN PRN Reason: Mild Pain or Fever > 100.5 Hydrocodone Bitart/Acetaminophen (Hydrocodone/Apap 5-325mg 1 Each Tab) 1 each PO Q6H [facility] Last Admin: 12/07/23 14:51 Dose: Not Given Aspirin (Aspirin 81 Mg) 81 mg PO DAILY [facility] Last Admin: 12/07/23 11:10 Dose: Not Given Atorvastatin Calcium (Atorvastatin 20 Mg Tab) 20 mg PO HS [facility] Last Admin: 12/06/23 20:35 Dose: 20 mg Diltiazem HCl (Diltiazem Oral 60 Mg Tab) 60 mg PO TID [facility] Last Admin: 12/07/23 11:10 Dose: Not Given Folic Acid (Folic Acid 1 Mg Tab) 1 mg PO DAILY [facility] Last Admin: 12/07/23 11:10 Dose: Not Given Insulin Aspart (Insulin Aspart (Novolog) 100 Unit/Ml Vial) 0 unit SQ ACHS [facility]; Protocol Last Admin: 12/07/23 11:51 Dose: Not Given Lidocaine (Lidocaine 4% Patch) 1 patch TOPICAL DAILY [facility]; Protocol Last Admin: 12/07/23 09:07 Dose: 1 patch Lorazepam (Lorazepam 2 Mg/Ml Inj) 1 mg IV Q6HR PRN PRN Reason: Anxiety Last Admin: 12/07/23 14:08 Dose: 1 mg Metoprolol Tartrate (Metoprolol Tartrate 50 Mg Tab) 100 mg PO BID [facility] Last Admin: 12/07/23 11:10 Dose: Not Given Naloxone HCl (Naloxone 0.4 Mg/Ml 1 Ml Vial) 0.2 mg IV Q2M PRN PRN Reason: Opioid Reversal Social [facility]: [facility]. Started smoking at the age of 13 stopped in 2011. 1 pack a day. No alcohol. Physical examination: VITAL SIGNS: 97.7, 102, 16, 135 x 78, 95% on 4 L GENERAL: Lethargic-just about at arousable EYES: Pupils equal. Conjunctiva normal. HEENT: External appearance of nose and ears normal, oral cavity-dry mucous membrane NECK: JVD not raised; masses not palpable. HEART: Heart sounds irregular; no edema. LUNGS: Respiratory rate increased, decreased breath sounds ABDOMEN: Soft, non-tender, liver spleen not palpable, no masses palpable. Crockett catheter: PSYCH: Lethargic, little arousable MUSCULOSKELETAL:No Clubbing/cyanosis;muscles-grossly intact. OA. Loss of muscle mass INVESTIGATIONS, reviewed in the clinical context: December 09: White count 9.3 hemoglobin 8.7 platelets 114 potassium 4.3 BUN 62 creat inine 1.42 Assessment and plan: -Acute metabolic encephalopathy, with delirium: Not improving -Acute UTI with cystitis, from Enterococcus faecalis IV Unasyn-discontinued per ID -Chronic radiation cystitis. -History of small bowel obstruction leading to surgery.by Dr. Blood on September 24, 2023. Robotic-assisted da Radha Xi laparoscopic decompressive enterostomy with closure small bowel, proximal ileum. Robotic-assisted da Radha Xi laparoscopic small bowel external bypass proximal ileum to mid ileum - tortuous colon with a prior history of unsuccessful colonoscopy -Severe colonic diverticulosis -Severe protein calorie malnutrition from poor oral intake Albumin 2.3 -History of vaginal bleeding in a patient with known uterine adenocarcinoma. - radiation treatment 2018. Apparently patient was lost to follow-up. -Chronic kidney disease stage IIIb likely nephrosclerosis -Chronic congestive heart failure from diastolic dysfunction EF 50 to 55% % -Moderate mitral and tricuspid regurgitation. -CAD with a history of stent -Right hydronephrosis, with a right ureteral stent. Possibly of 2 years duration. Possibly placed at [facility] -Persistent atrial fibrillation, - left cerebellar infarct -Medical debility. -Large left adrenal mass likely adenoma -Moderate cognitive impairment from likely vascular dementia and multi-infarct dementia- -Full code -Legal guardian: [facility]. Mckenzie Advance care planning [December 03, 2023] This was carried out the bedside with legal guardian Mckenzie. Overall care was discussed in detail. Patient's poor prognosis was discussed. Patient is barely eating. Delirium and encephalopathy. Appropriateness of DNR and possible hospice. Mckenzie will take this back to her histology supervisor came at the court and will have to present the case to the hr administrator. In the meantime continue current treatment plan. Time spent about 25 minutes Patient continues to do poorly. Awaiting input from the court. Regarding DNR/hospice./Comfort care
[2023-12-07 16:40] LABS: Glucose,Whole Blood 168 mg/dL (70-110)
--- NOTE | 2023-12-07 16:40 | P.PN ---
Subjective Progress Note Date: 12/07/23 Principal diagnosis: Reason for follow-up is Enterococcus urinary tract infection and leukocytosis Patient is a 78-year female with a past medical history significant fo r atrial fibrillation CVA TIA hyperlipidemia NE brought into the hospital concerning for mental status changes patient did have a positive UA elevated white count concerning for urinary tract infection. On today's evaluation that is 12/07/2023, patient has been afebrile, patient is breathing comfortably and is currently on 3 L nasal cannula oxygen patient slightly more awake and alert today and apparently pulled out her Crockett catheter patient has been made n.p.o. with high risk of aspiration did not answer any question. No new lab has been obtained today Objective - Vital Signs Vital signs: Vital Signs Temp 97.7 F 12/07/23 08:30 Pulse 102 H 12/07/23 08:30 Resp 16 12/07/23 08:30 BP 135/78 12/07/23 08:30 Pulse Ox 95 12/07/23 08:30 FiO2 Intake & Output 12/06/23 12/07/23 12/07/23 18:59 06:59 18:59 Intake Total 480 0 Output Total 350 200 250 Balance 130 -200 -250 Intake: Oral 480 0 Output: Urine 350 200 250 Other: Voiding Method Indwelling Catheter Indwelling Catheter Indwelling Catheter - Exam GENERAL DESCRIPTION: An elderly female lying in bed in no distress RESPIRATORY SYSTEM: Unlabored breathing , decreased breath sounds at bases HEART: S1 S2 regular rate and rhythm , ABDOMEN: Soft , no tenderness EXTREMITIES: No edema feet - Labs CBC & Chem 7: 12/02/23 08:21 12/02/23 08:21 Labs: Abnormal Lab Results - Last 24 Hours (Table) 12/06/23 12/06/23 12/07/23 Range/Units 16:47 20:23 02:07 POC Glucose (mg/dL) 167 H 182 H 159 H (70-110) mg/dL 12/07/23 12/07/23 Range/Units 06:43 11:41 POC Glucose (mg/dL) 163 H 120 H (70-110) mg/dL Assessment and Plan (1) UTI (urinary tract infection) Current Visit: Yes Status: Acute Code(s): N39.0 - URINARY TRACT INFECTION, SITE NOT SPECIFIED SNOMED Code(s): 62079222 (2) Leukocytosis Current Visit: No Status: Acute Code(s): D72.829 - ELEVATED WHITE BLOOD CELL COUNT, UNSPECIFIED SNOMED Code(s): 508134273 Plan: 1patient present to hospital mental status changes likely multifactorial in this patient also noticed to have significant elevated white count source likely UTI and also have a component of large effusion questionably cardiac etiology as not behaving as pneumonia or empyema. 2urine culture now growing Enterococcus that is sensitive to ampicillin 3patient is afebrile patient has received adequate antibiotic therapy for UTI and antibiotic has been discontinued, currently waiting for possible change her CODE STATUS as hospice may be appropriate for her discussed with the nursing staff will monitor closely off antibiotic at this point Dictation was produced using [employer] dictation software. please excuse any grammatical, word or spelling errors. Time with Patient: Less than 30
[2023-12-07 20:06] LABS: Glucose,Whole Blood 140 mg/dL (70-110)
[2023-12-08 01:37] LABS: Glucose,Whole Blood 139 mg/dL (70-110)
[2023-12-08 05:04] VITALS: TEMP 98
[2023-12-08 06:18] LABS: Glucose,Whole Blood 154 mg/dL (70-110)
[2023-12-08 11:47] LABS: Glucose,Whole Blood 158 mg/dL (70-110)
[2023-12-08 12:21] VITALS: BP 118/86; PULSE 107; RESP 16
--- NOTE | 2023-12-08 13:46 | P.DS ---
Providers Date of admission: 11/25/23 05:29 Expected date of discharge: 12/08/23 Attending physician: Biju Sanabria Consults: 11/27/23 10:26 Consult Physician Routine Consulting Provider: Johnny Waite Consult Reason/Comments: UTI Do you want consulting provider notified?: Yes 11/29/23 11:42 Consult Physician Routine Consulting Provider: Alicia Rivas Consult Reason/Comments: atrial fibrillation with RVR Do you want consulting provider notified?: Already Contacted [place] [facility] Course: This 78,years old female with past medical history of Atrial Fibrillation , CVA/TIA, GI Bleed, Hyperlipidemia, no anticoagulation because of GI bleed, moderate cognitive impairment from vascular dementia. Attempted colonoscopy in 2021 showed a tortuous colon. Has known uterine adenocarcinoma. radiation treatment 2018. Then was lost to follow-up. Also supposed to followed up with radiation treatment at [facility]. Also had right- sided hydronephrosis in the past with right-sided ureteral stent. Admitted September 15/2024 with nausea vomiting abdominal pain. Found to have bowel obstruction was given NG tube to suction. 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 - underwent a robotic assisted decompression enterostomy with closure of small bowel and bypass proximal bowel to mid ileum. October 02 MRI of the brain showed acute/subacute CVA involving the left cerebellum. October 17 cholecystectomy. Patient was sent into the ER because of altered mental status. Patient herself not able to give much history. Denies any pain shortness of breath. Does not seem to be ambulatory. 11/26. Patient seen and examined. Patient is alert, not the best of historian. Does not look in acute distress 11/27. Patient seen and examined. Blood work done this morning showed WBC 16.4, hemoglobin 8.9, platelet count 136, sodium 130, potassium 3.2, BUN 53, creatinine 1.21. Patient continues to have poor appetite 11/28. Patient seen and examined. [facility], had to be placed on Cardizem drip. Currently denies any palpitations. 11/29. Patient seen and examined. Heart rate is better controlled, cardiology increase of Cardizem to 60 mg 3 times daily. Denies any palpitations 11/30. Patient seen and examined. Currently sitting upright in the chair. States she feels better compared to yesterday December 01: Oral intake is poor. Tired. Does open eyes. Will answer occasional questions. Prognosis not good. Laying in bed today. Franklyn to the nurse. Poor oral intake. December 02: Patient delirious. Does answer some questions. Not able to comprehend. Met with Mckenzie patient's legal guardian. Explained that the patient has a very poor prognosis. Very appropriate for DNR and hospice. Patient has been going downhill for some time. Even patient started to choke on water now. Patient probably not a real good candidate for PEG tube feeding. Mckenzie the legal guardian will talk to her supervisor logging and then take it from there. December 03: Remains delirious and encephalopathic. Trouble with oral intake. Awaiting input from legal guardian through the court about CODE STATUS. IV Unasyn. Not eating December 04: Remains rather lethargic. Arousable. Will occasionally speak a word or 2. Eating very small amounts intermittently. December 05 patient lethargic delirious. Does wake up to see a word or 2. Intermittently eating small amounts. Awaiting court to decide about CODE STATUS/hospice. December 06: Patient continues to poorly. Lethargic delirious. Just about responsive. Ate a very small amount last night. Awaiting input from legal guardian code. December 07: Very lethargic encephalopathic. Very high risk of oral intake. Spoke to Mckenzie from legal guardian's office, who is here. Patient's son also present. Agreeable to the plan. They have a court order to make the patient DNR and hospice. Spoke to social media editorJoanie Samano. Patient will go to [facility] with hospice. Patient received 1 dose of morphine Discussion and discharge planning more than 35 minutes Social history: at [facility]. Started smoking at the age of 13 stopped in 2011. 1 pack a day. No alcohol. Physical examination: VITAL SIGNS: 107, 16, 118/86, 90% on 6 L GENERAL: Lethargic- EYES: Pupils equal. Conjunctiva normal. HEENT: External appearance of nose and ears normal, oral cavity-dry mucous membrane NECK: JVD not raised; masses not palpable. HEART: Heart sounds irregular; no edema. LUNGS: Respiratory rate increased, decreased breath sounds ABDOMEN: Soft, non-tender, liver spleen not palpable, no masses palpable. Crockett catheter: PSYCH: Lethargic, little arousable MUSCULOSKELETAL:No Clubbing/cyanosis;muscles-grossly intact. OA. Loss of muscle mass INVESTIGATIONS, reviewed in the clinical context: December 09: White count 9.3 hemoglobin 8.7 platelets 114 potassium 4.3 BUN 62 creatinine 1.42 Assessment and plan: -Acute metabolic encephalopathy, with delirium: Not improving -Acute UTI with cystitis, from Enterococcus faecalis IV Unasyn-discontinued per ID -Chronic radiation cystitis. -History of small bowel obstruction leading to surgery.by Dr. Blood on September 24, 2023. Robotic-assisted da Radha Xi laparoscopic decompressive enterostomy with closure small bowel, proximal ileum. Robotic-assisted da Radha Xi laparoscopic small bowel external bypass proximal ileum to mid ileum - tortuous colon with a prior history of unsuccessful colonoscopy -Severe colonic diverticulosis -Severe protein calorie malnutrition from poor oral intake Albumin 2.3 -History of vaginal bleeding in a patient with known uterine adenocarcinoma. - radiation treatment 2018. Apparently patient was lost to follow-up. -Chronic kidney disease stage IIIb likely nephrosclerosis -Chronic congestive heart failure from diastolic dysfunction EF 50 to 55% % -Moderate mitral and tricuspid regurgitation. -CAD with a history of stent -Right hydronephrosis, with a right ureteral stent. Possibly of 2 years duration. Possibly placed at [facility] -Persistent atrial fibrillation, - left cerebellar infarct -Medical debility. -Large left adrenal mass likely adenoma -Moderate cognitive impairment from likely vascular dementia and multi-infarct dementia- -DNR -Legal guardian: [facility]. Mckenzie Advance care planning [December 03, 2023] This was carried out the bedside with legal guardian Mckenzie. Overall care was discussed in detail. Patient's poor prognosis was discussed. Patient is barely eating. Delirium and encephalopathy. Appropriateness of DNR and possible hospice. Mckenzie will take this back to her supervisor logging came at the court and will have to present the case to the template clerk. In the meantime continue current treatment plan. Time spent about 25 minutes [facility] Will open to hosp[facility]. Plan - Discharge Summary Discharge Rx Participant: No New Discharge Prescriptions: Discontinued Lidocaine 4% Patch 1 patch TOPICAL DAILY #3 patch Docusate [Colace] 100 mg PO BID cap Metoprolol Tartrate [Lopressor] 100 mg PO BID HYDROcodone/APAP 5-325MG [Keno 5-325] 1 tab PO Q6H Ferrous Sulfate [Feosol] 325 mg PO DAILY Darbepoetin Robert [Aranesp] 40 mcg SQ NAYLOR Folic Acid 1 mg PO DAILY tab Atorvastatin [Lipitor] 20 mg PO HS tab Acetaminophen Tab [Tylenol] 650 mg PO Q6H PRN PRN Reason: Pain Furosemide [Lasix] 40 mg PO DAILY tab Naloxone HCl [Narcan] 4 mg NASAL DIRECTED PRN PRN Reason: Overdose INSULIN LISPRO (HumaLOG) [humaLOG] See Protocol SQ AC-TID Follow up Appointment(s)/Referral(s): Dada Maddox DO [Primary Care Provider] - 1-2 days Aure Mari [NON-STAFF] - 12/08/23
[2023-12-08] MEDS: MORPHINE SULFATE 2 MG/ML SYRINGE IVP PRN (15:09)
--- NOTE | 2023-12-10 15:13 | P.PN ---
Subjective Progress Note Date: 12/06/23 Principal diagnosis: Reason for follow-up is Enterococcus urinary tract infection and leukocytosis Patient is a 78-year female with a past medical history significant fo r atrial fibrillation CVA TIA hyperlipidemia MA brought into the hospital concerning for mental status changes patient did have a positive UA elevated white count concerning for urinary tract infection. On today's evaluation that is 12/06/2023, Patient is afebrile patient is currently on 3 L nasal cannula oxygen and seems to be breathing comfortably did not answer any question no vomiting or diarrhea reported by the nursing staff. No new lab has been obtained today Objective - Vital Signs Vital signs: Vital Signs Temp 98.4 F 12/06/23 11:24 Pulse 102 H 12/06/23 11:24 Resp 18 12/06/23 11:24 BP 120/76 12/06/23 11:24 Pulse Ox 94 L 12/06/23 11:24 FiO2 Intake & Output 12/05/23 12/06/23 12/06/23 18:59 06:59 18:59 Intake Total 120 Output Total 450 175 Balance -450 -175 120 Intake: Oral 120 Output: Urine 450 175 Other: Voiding Method Indwelling Catheter Indwelling Catheter Indwelling Catheter - Exam GENERAL DESCRIPTION: An elderly female lying in bed in no distress RESPIRATORY SYSTEM: Unlabored breathing , decreased breath sounds at bases HEART: S1 S2 regular rate and rhythm , ABDOMEN: Soft , no tenderness EXTREMITIES: No edema feet - Labs CBC & Chem 7: 12/02/23 08:21 12/02/23 08:21 Labs: Abnormal Lab Results - Last 24 Hours (Table) 12/05/23 12/05/23 12/06/23 Range/Units 16:19 19:37 02:16 POC Glucose (mg/dL) 141 H 172 H 138 H (70-110) mg/dL 12/06/23 Range/Units 06:14 POC Glucose (mg/dL) 155 H (70-110) mg/dL Assessment and Plan (1) UTI (urinary tract infection) Current Visit: Yes Status: Acute Code(s): N39.0 - URINARY TRACT INFECTION, SITE NOT SPECIFIED SNOMED Code(s): 12673427 (2) Leukocytosis Current Visit: No Status: Acute Code(s): D72.829 - ELEVATED WHITE BLOOD CELL COUNT, UNSPECIFIED SNOMED Code(s): 087074910 Plan: 1patient present to hospital mental status changes likely multifactorial in this patient also noticed to have significant elevated white count source likely UTI and also have a component of large effusion questionably cardiac etiology as not behaving as pneumonia or empyema. 2urine culture now growing Enterococcus that is sensitive to ampicillin 3patient is afebrile patient has received adequate antibiotic therapy for UTI and antibiotic has been discontinued will monitor closely off antibiotics Dictation was produced using [employer] dictation software. please excuse any grammatical, word or spelling errors.
--- NOTE | 2023-12-10 15:13 | P.PN ---
Subjective Progress Note Date: 12/08/23 Principal diagnosis: Reason for follow-up is Enterococcus urinary tract infection and leukocytosis Patient is a 78-year female with a past medical history significant fo r atrial fibrillation CVA TIA hyperlipidemia OK brought into the hospital concerning for mental status changes patient did have a positive UA elevated white count concerning for urinary tract infection. On today's evaluation that is 12/08/2023, Patient remains to be afebrile patient has been breathing comfortably currently on 5 L current oxygen slightly more awake but not a good historian still n.p.o. because of high risk of choking no vomiting or diarrhea has been reported by the nursing staff. No new labs has been repeated today Objective - Vital Signs Vital signs: Vital Signs Temp 98 F 12/08/23 04:00 Pulse 107 H 12/08/23 12:00 Resp 16 12/08/23 12:00 BP 118/86 12/08/23 12:00 Pulse Ox 90 L 12/08/23 12:00 FiO2 Intake & Output 12/07/23 12/08/23 12/08/23 18:59 06:59 18:59 Intake Total 0 0 Output Total 250 Balance -250 0 Intake: Oral 0 0 Output: Urine 250 Other: Voiding Method Diaper Diaper Diaper # Voids 1 2 - Exam GENERAL DESCRIPTION: An elderly female lying in bed in no distress RESPIRATORY SYSTEM: Unlabored breathing , decreased breath sounds at bases HEART: S1 S2 regular rate and rhythm , ABDOMEN: Soft , no tenderness EXTREMITIES: No edema feet - Labs CBC & Chem 7: 12/02/23 08:21 12/02/23 08:21 Labs: Abnormal Lab Results - Last 24 Hours (Table) 12/07/23 12/07/23 12/08/23 Range/Units 16:39 20:04 01:35 POC Glucose (mg/dL) 168 H 140 H 139 H (70-110) mg/dL 12/08/23 12/08/23 Range/Units 06:17 11:45 POC Glucose (mg/dL) 154 H 158 H (70-110) mg/dL Assessment and Plan (1) UTI (urinary tract infection) Status: Acute Code(s): N39.0 - URINARY TRACT INFECTION, SITE NOT SPECIFIED SNOMED Code(s): 83418313 (2) Leukocytosis Status: Acute Code(s): D72.829 - ELEVATED WHITE BLOOD CELL COUNT, UNSPECIFIED SNOMED Code(s): 175518199 Plan: 1patient present to hospital mental status changes likely multifactorial in this patient also noticed to have significant elevated white count source likely UTI and also have a component of large effusion questionably cardiac etiology as not behaving as pneumonia or empyema. 2urine culture now growing Enterococcus that is sensitive to ampicillin 3patient is afebrile patient has received adequate antibiotic therapy for UTI 4-patient currently has to be high risk for aspiration as her n.p.o. and is being discharged to hospice may be appropriate ID will sign off Dictation was produced using [employer] dictation software. please excuse any grammatical, word or spelling errors. Time with Patient: Less than 30
== END 2023-12-08 15:27 | disposition hospice, home (50) | DRG 871 ==
LOC: EC 00:52 → 5NMEDONC 05:29 → 3SCARD 06:54
PROVIDERS: ADMIT Hospitalist; ATTEND Hospitalist
DX: A41.81 Sepsis due to Enterococcus (principal); E43 Unspecified severe protein-calorie malnutrition; G93.41 Metabolic encephalopathy; F01.54 Vascular dementia, unspecified severity, with anxiety; I13.0 Hypertensive heart and chronic kidney disease with heart failure and stage 1 through stage 4 chronic kidney disease, or unspecified chronic kidney disease; I48.19 Other persistent atrial fibrillation; I50.32 Chronic diastolic (congestive) heart failure; N13.30 Unspecified hydronephrosis; N30.41 Irradiation cystitis with hematuria; E27.9 Disorder of adrenal gland, unspecified; E78.5 Hyperlipidemia, unspecified; E86.0 Dehydration; I08.1 Rheumatic disorders of both mitral and tricuspid valves; I25.10 Atherosclerotic heart disease of native coronary artery without angina pectoris; I25.2 Old myocardial infarction; I69.318 Other symptoms and signs involving cognitive functions following cerebral infarction; K57.30 Diverticulosis of large intestine without perforation or abscess without bleeding; N18.32 Chronic kidney disease, stage 3b; Y84.2 Radiological procedure and radiotherapy as the cause of abnormal reaction of the patient, or of later complication, without mention of misadventure at the time of the procedure; Z51.5 Encounter for palliative care; Z66 Do not resuscitate; Z86.16 Personal history of COVID-19; Z79.82 Long term (current) use of aspirin; Z79.899 Other long term (current) drug therapy; Z85.41 Personal history of malignant neoplasm of cervix uteri; Z85.42 Personal history of malignant neoplasm of other parts of uterus; Z87.891 Personal history of nicotine dependence; Z92.3 Personal history of irradiation; Z96.0 Presence of urogenital implants; Z75.2 Other waiting period for investigation and treatment; Z68.22 Body mass index [BMI] 22.0-22.9, adult
CPT/HCPCS: 36415; 70450; 71045; 80053; 81001; 83605; 83735; 85025; 85027; 85610; 85730; 86140; 87077; 87086; 87186; 93005; 94760; 96361; 96365; 96366; 96367; 99291